=== PATIENT | male | born 1940 | race Caucasian/White ===

== ENCOUNTER → 2017-08-12 12:38 | Outpatient (CLI) | payer MEDICARE, SELFPAY ==
--- NOTE | 2017-08-12 12:40 | STE_ITS ---
Reason For Study: CAD/ASHD Stress Results Protocol: Parker Protocol Maximum Predicted HR: 142 bpm Target HR: 121 bpm% Max imum Predicted HR: 94 % DurationHeart Rate Stage (mm:ss) (bpm) BPCom ment BASELINE 79 140/92 0.2 ML DEFINITY STAGE 1 2:00 13 4 / 0.1 ML DEFINITY, Unable to walk on treadmill, Increased SOB RECOVERY 88 158/92 0.2 ML DEFINITY Stress Duration: 2:00 mm:ss Maximum Stress HR: 134 bpm Baseline Echocardiogram Findings The estimated ejection fraction is 65 %. Stress Echo Wall motion Data Resting WMIntermediate WMStress WM Resting Wall Motion Wall Motion Stress No regional wall motion No regional wall motion abnormalities noted. abnormalities noted. EKG Data Normal intervals are noted. The stress ECG displays normal ST segments. Interpretation Summary The study was technically difficult. Contrast injection was performed. The estimated ejection fraction is 65 %. Normal, adequate, treadmill echocardiogram. Negative for ischemia by EKG and echocardiographic criteria. No anginal symptoms noted. Rare PVC noted. Very poor exercise capacity for age. Pt unable to keep up with treadmill. Test terminated due to dyspnea and fatigue. Final LVEF of 75%. No complications. Decreased sensitivity due to poor echo windows requiring Definity enhancement agent. Ordering Physician: Yunior Adams Referring Physician: Yunior Adams Performed By: Carmen Shultz, ALIX, RVT
== END ==
PROVIDERS: Family Provider Family Medicine; PCP Family Medicine; Visit Provider Internal Medicine Cardiovascular Disease
DX: I47.1 Supraventricular tachycardia (principal); J44.9 Chronic obstructive pulmonary disease, unspecified; I25.10 Atherosclerotic heart disease of native coronary artery without angina pectoris
CPT/HCPCS: 93017; 93350; Q9957; A4216; C8928; J2785

== ENCOUNTER → 2017-10-05 12:42 | Outpatient (CLI) | payer MEDICARE, SELFPAY ==
--- NOTE | 2017-10-05 12:44 | CT_ITS ---
STUDY: CTA CHEST REASON FOR EXAM: Male, 77 years old. Cough. Congestion. Shortness of breath with exertion. Elevated d-dimer. RADIATION DOSAGE (If Supplied By Facility): CTDIvol = ( 14.2 ) mGy, DLP = ( 526.99 ) mGycm TECHNIQUE: The examination was performed with the intravenous administration of 100 ml of Isovue 370 contrast material. Post-processing of the angiographic images was performed, with multiplanar reformation and 3D reconstruction. Individualized dose optimization techniques were used for this CT. COMPARISON: April 06, 2017. FINDINGS: Normal enhancement of the main pulmonary artery and right and left pulmonary arteries. Normal enhancement of the bilateral peripheral pulmonary arteries. There is no demonstrated pulmonary embolism. There is atherosclerotic calcification of the aortic arch with tortuosity. There is no demonstrated aortic dissection. There are calcifications of the coronary arteries. Normal mediastinum. Normal hilar regions. Normal visualized trachea and bronchi. The lungs are well expanded. Normal pulmonary parenchyma. There is stable groundglass opacity in the right lower lobe, series 2 image 86/238 . There is bronchiectasis in the lower chest. There is lower lung linear scarring or atelectasis. Normal pleura. Normal chest wall structures. There are degenerative changes of thoracic spine. Normal visualized upper abdomen. CT/CTA Chest W/WO Contrast IMPRESSION: CTA chest examination, without a demonstrated pulmonary embolism or arterial dissection. Stable bronchiectasis with fibrotic densities and right lower lung groundglass opacity. Electronically Signed: Janes Harrell MD at 13:50 EDT , Service support ,
== END ==
PROVIDERS: Family Provider Family Medicine; PCP Family Medicine; Visit Provider Internal Medicine Pulmonary Disease
DX: R91.1 Solitary pulmonary nodule (principal); R79.89 Other specified abnormal findings of blood chemistry
CPT/HCPCS: 71275; Q9967

== ENCOUNTER → 2017-12-24 15:45 | Outpatient (CLI) | payer MEDICARE, SELFPAY ==
--- NOTE | 2017-12-24 15:47 | VDLE_ITS ---
Reason For Study: pain RIGHT LEFT GSV is normal. GSV is normal. CFV is compressible, spontaneous, phasic, CFV is compressible, spontaneous, phasic, competent and demonstrates normal competent, and demonstrates normal augmentation. augmentation. FV is compressible, spontaneous, phasic, FV is compressible, spontaneous, phasic, competent and demonstrates normal competent and demonstrates normal augmentation. augmentation. POP V is compressible, spontaneous, phasic, POP V is compressible, spontaneous, phasic, competent and demonstrates normal competent and demonstrates normal augmentation. augmentation. T/P Trunk is compressible. T/P Trunk is compressible. PTV is compressible. PTV is compressible. RT PerV is compressible. LT PerV is compressible. Varicose veins below the knee are dilated and noncompressible. Procedure Exam performed in department. The exam was diagnostic. A preliminary report was called and/or faxed to Jose [facility]. Interpretation Summary No evidence for acute deep venous thrombosis bilateral lower extremities with patent and compressible bilateral great saphenous veins. Superficial thrombophlebitis varicose veins right calf. Ordering Physician: Valarie Fox Performed By: Erik Stephens RVT
== END ==
PROVIDERS: Family Provider Family Medicine; PCP Family Medicine; Referring Provider Physician Assistant Medical; Visit Provider Physician Assistant Medical
DX: M79.89 Other specified soft tissue disorders (principal)
CPT/HCPCS: 93970

== ENCOUNTER → 2018-01-04 14:04 | Outpatient (CLI) | payer MEDICARE, SELFPAY | PROVIDERS: Family Provider Family Medicine; PCP Family Medicine; Referring Provider Internal Medicine Pulmonary Disease; Visit Provider Internal Medicine Pulmonary Disease | DX: J44.9 Chronic obstructive pulmonary disease, unspecified (principal); R05 Cough | CPT/HCPCS: 87015; 87070; 87116; 87205; 87206 ==

== ENCOUNTER 2018-01-04 23:34 | Inpatient (IN) | payer MEDICARE, SELFPAY ==
[2018-01-04 22:45] VITALS: BP 120/73; PULSE 76; RESP 17; TEMP 37.1; O2SAT 96
[2018-01-04 23:45] VITALS: BP 120/73; PULSE 76; RESP 17; TEMP 37.1; O2SAT 96
[2018-01-04 23:56] VITALS: PULSE 78
[2018-01-05] VITALS (14 sets, daily range): BP systolic 117–149; BP diastolic 68–88; PULSE 65–76; RESP 16–23; TEMP 36.6–36.9; O2SAT 93–95; BMI 29.5
--- NOTE | 2018-01-05 00:15 | HP.PCM_ITS ---
Problem List (1) GERD (gastroesophageal reflux disease) Status: Chronic (2) COPD (chronic obstructive pulmonary disease) Status: Chronic (3) Paroxysmal atrial fibrillation Status: Acute History of Present Illness Date of Admission: 01/04/18 Chief Complaint: Palpitations The patient is a 77 year old M with a significant history of COPD, former smoker, HLD, SVT; PAF and GERD who was transferred from [facility]. He presented to [facility] with palpitation and requested that he be transferred to our hospital since he is a patient of Dr. Adams, spd manager. [facility] ED doctor reported that patient was found to be in A. fib with RVR with a heart rate in the 170s. He was given a Cardizem bolus and drip which brought his heart rate to the 110s. When patient arrived at our hospital his heart rate was in the 70s to 80s on Cardizem drip; and his systolic blood pressure was 110. Patient denies any shortness of breath. Patient reported that in June of this year he had upper respiratory infection and he had a transient A. fib at that time. He has had episodic palpitations. On 12/24/17 patient was seen at Cardiology's Office. He was seen by Valarie Fox PA-C. A 30-day event monitor was ordered for palpitations. Patient reported that 2 days after wearing the event monitor the event monitor malfunctioned. A new event monitor was supposed to be mailed to him but he did not receive it before this hospitalization. Following his paroxysmal A. fib/SVT in the setting of upper respiratory infection in June 2017 patient followed up with Dr. Adams. Past Medical History Past Medical History (Chronic Problems): Chronic Problems (Last Reviewed 01/05/18 @ 01:06 by Luciano Ponce MD) GERD (gastroesophageal reflux disease) (Chronic) COPD (chronic obstructive pulmonary disease) (Chronic) Medical History: Medical History (Last Reviewed 01/05/18 @ 01:06 by Luciano Ponce MD) SVT (supraventricular tachycardia) (Acute) I47.1 per ekg 06/12/17 GERD (gastroesophageal reflux disease) (Chronic) K21.9 COPD (chronic obstructive pulmonary disease) (Chronic) J44.9 Paroxysmal atrial fibrillation (Acute) I48.0 BPH (benign prostatic hyperplasia) N40.0 Allergies No Known Allergies Allergy (Verified 12/24/17 15:16) Home Medications: Ambulatory Orders Medication Instructions Recorded aspirin 81 mg tablet,delayed 81 mg PO QHS 07/04/17 release fluticasone furoate 200 1 inh INHALATION QDAY 07/04/17 mcg/actuation blister powder for inhalation lorazepam 0.5 mg tablet 0.5 mg PO QHS 07/04/17 pantoprazole 40 mg tablet,delayed 40 mg PO QDAY 07/04/17 release rosuvastatin 5 mg tablet 5 mg PO QDAY 07/04/17 tamsulosin 0.4 mg capsule 0.4 mg PO BID cap 07/07/17 umeclidinium 62.5 mcg/actuation 1 inh INHALATION DAILY 12/24/17 blister powder for inhalation Acetaminophen [Tylenol] 325 mg PO PRN PRN 01/05/18 Surgical History: adenoidectomy, herniorrhaphy - X2 Lives: Spouse/ Significant Other Smoking Status: Former smoker Alcohol: None - *Family History Maternal Family History: Family History (Last Updated 01/05/18 @ 01:07 by Luciano Ponce MD) Mother COPD (chronic obstructive pulmonary disease) Blood disorder Review of Systems Constitutional: Denies: Chills, Fever, Weight Change HEENT: Reports: Post Nasal Drip, Sinus Congestion. Denies: Head Aches, Sinus Drainage Cardiovascular: Reports: Palpitations. Denies: Chest Pain Respiratory: Reports: Cough, Hemoptysis - Occasional. Denies: Shortness of lo ath at rest, Sputum production Gastrointestinal: Denies: Abdominal Pain, Nausea, Vomiting Genitourinary: Denies: Dysuria Musculoskeletal: Denies: Joint Pain, Joint Tenderness Skin: Denies: Rash, Wounds Neurological: Denies: Numbness, Tingling, Focal weakness Psychiatric: Denies: Anxiety, Depression, Homicidal Ideations, Suicidal Ideations Hematologic/ Lymphatic: Denies: Easy Bruising, Easy Bleeding VTE Information - Inpt Only VTE Present on Admission: No VTE Mechan Device Prophylaxis: None VTE Pharm Prophylaxis ordered?: No Reason prophylaxis not ordered:: Treatment Not Indicated - Started on Lovenox for A. fib. - Physical Exam General: Alert, Oriented x3, Cooperative HEENT: Atraumatic, PERRLA, EOMI, Normocephalic Neck: Supple, No JVD, Negative Carotid Bruits Lungs: Clear to auscultation, Normal air movement Cardiovascular: Regular rate, No murmurs Abdomen: Bowel Sounds Present, Soft, Non Tender Extremities: Capillary Refill Less than 3 Seconds Skin: No rashes, No breakdown Musculoskeletal: No Tenderness to Palpation of Joints or Extremities, Tenderness - Mild tenderness and red spot on right leg. Neurological: Cranial nerves II-XII grossly intact Psych/Mental Status: Normal Affect, Appropriate Assessment/Plan All Active Problems (Last Reviewed 01/05/18 @ 01:06 by Luciano Ponce MD) Swelling of right lower extremity (Acute) SVT (supraventricular tachycardia) (Acute) Paroxysmal atrial fibrillation (Acute) The patient is a 77 year old M with a significant history of COPD, former smoker, HLD, SVT; PAF and GERD; and with acute A. fib with RVR who was transferred from [facility] to our hospital because patient is familiar with Dr. Adams, spd manager. A. fib with RVR On review of records patient was seen on 12/24/2017 by Valarie Fox PA-C. EKG at that time showed PACs. Interpretation of stress echo done on 08/12/17 showed: The study was technically difficult. Contrast injection was performed. The estimated ejection fraction is 65 %.Normal, adequate, treadmill echocardiogram. Negative for ischemia by EKG and echocardiographic criteria. No anginal symptoms noted. Rare PVC noted. Very poor exercise capacity for age. Pt unable to keep up with treadmill. Test terminated due to dyspnea and fatigue. Final LVEF of 75%. No complications. Decreased sensitivity due to poor echo windows requiring Definity enhancement agent. Echocardiogram 03/18/2017 from [facility] showed left ventricle of normal size cavity and wall thickness. Systolic function was normal. Estimated EF was 55-60%. Wall motion was normal; and there were no regional wall motion abnormalities. Myocardial stress test from [facility] on 02/24/17: showed no evidence of inducible ischemia. Moderate area of fixed defect involving the inferior, inferoseptal and inferolateral wall suggestive of peripheral myocardial infarction. Mild hypokinesis of the inferior wall with normal systolic function, LVEF 61%. [id number] Score. Age more than 75: Two-points. 2.2% stroke risk per year. Moderate to high risk and should otherwise be on anticoagulation HAS-BLED score. Age > 60 = 1 point; Hemoptysis= 1 point ; On ASA =1point. His HAS-BLED score is at least 3. Putting patient at high risk of bleeding. Risk and benefits discussed with patient. Shared decision to begin anticoagulation. Lovenox 1 mg per kilogram subcutaneous every 12 hours started. Anticipate patient will be transitioned to p.o. anticoagulants. Cardizem drip stopped since patient is sinus rhythm with heart rate of 70. Rate controlled with Cardizem p.o. Cardiology consult to optimize management. Since cardiology has been consulted will defer to cardiology if there is the need of any echocardiogram; especially since patient had stress echocardiogram about 5 months ago.. TSH ordered. Magnesium ordered. CBC and BMP ordered. Hemoptysis Patient report this has been going on for about 2 weeks. He suspects that this is because of his bronchitis. Patient follows up with Dr. Sylvester Donald who ordered a sputum study. Patient sent sputum to the lab on the same day of admission. Reports that Dr. Sylvester Donald's office will call his with results. Clinical monitoring. Superficial venous thrombosis of right leg Patient reported that he had ultrasound of his right leg that showed superficial venous thrombosis Stable COPD Stable on admission with no shortness of breath or wheezing Home breathing treatment continue. Albuterol as needed ordered. GERD Protonix ordered Hyperlipidemia Crestor continued BPH Tamsulosin continued DVT prophylaxis Not indicated in the setting of therapeutic dose of Lovenox for DVT. Code Visit OBSV E&M: 11468 Initial observation care L3
[2018-01-05] MEDS: Enoxaparin 100 MG/ML Syringe 90 MG SC (01:32)
[2018-01-05 02:30] LABS: Hematocrit 41.9 % (40-54); Hemoglobin 13.8 g/dl (13.0-16.5); Mean Corp Hgb Conc 32.9 g/gl (32-36); Mean Corpuscular Hgb 32.2 pg (27.0-32.0); Mean Corpuscular Volume 97.9 fL (80-94); Mean Platelet Vol. 9.2 fl (6.2-12.0); Platelet Count 230 K/mm3 (150-450); RBC Distribution Width SD 45.3 fl (35.1-43.9); Red Blood Count 4.28 M/mm3 (4.6-6.2); Scan Indicated on CBC? Y/N NO; White Blood Count 7.4 K/mm3 (4.4-11.0)
[2018-01-05 02:36] LABS: International Normalized Ratio 1.1; Prothrombin Time (Protime)PT. 14.2 SECONDS (11.7-14.9)
[2018-01-05 02:52] LABS: Thyroid Stim Hormone (TSH) 2.06 uIU/mL (0.358-3.74)
[2018-01-05 04:35] LABS: Anion Gap 7 (5-15); BUN 8 mg/dL (7-18); BUN/Creat Ratio 7.8 RATIO (10-20); Calcium,Total 8.5 mg/dL (8.5-10.1); Chloride 107 mmol/L (98-107); Creatinine, Serum 1.02 mg/dL (0.70-1.30); EST Glomerular Filtration Rate 75 mL/min (>60); Est Glom Filt Rate - Afr Amer 91 mL/min (>60); Estimated Creatinine Clearance 56.81 ml/min; Glucose 127 mg/dL (74-106); Potassium 4.2 mmol/L (3.5-5.1); Sodium Level 145 mmol/L (136-145)
--- NOTE | 2018-01-05 05:27 | EKG12_ITS ---
Test Reason : RYTHM CHANGE Blood Pressure : / mmHG Vent. Rate : 068 BPM Atrial Rate : 068 BPM P-R Int : 188 ms QRS Dur : 078 ms QT Int : 388 ms P-R-T Axes : 084 -33 051 degrees QTc Int : 412 ms Normal sinus rhythm with sinus arrhythmia Left axis deviation Abnormal ECG No previous ECGs available Confirmed by HANH MNA ([id number]), scientific publications editor NA DODGE ([id number]) on 01/12/2018 11:44:21 AM Referred By: Sylvester Donald Confirmed By:HANH MAN
[2018-01-05] MEDS: Ipratropium 0.5 MG/2.5 ML SOLUTION INHALATION ×2 (06:40→18:42)
[2018-01-05] MEDS: Budesonide Respules 0.5 MG/2 ML AMPUL.NEB. INHALATION ×2 (06:40→18:42)
[2018-01-05] MEDS: dilTIAZem CD 120 MG Capsule PO ×2 (09:16→22:18)
[2018-01-05] MEDS: Pantoprazole Sodium 40 MG Tablet PO (09:16)
[2018-01-05] MEDS: Tamsulosin HCl 0.4 MG Capsule PO ×2 (09:16→22:18)
--- NOTE | 2018-01-05 09:19 | NURSING ---
Pt requests to not take blood thinner at this time until cardiology makes further recommendations on anticoagulation
--- NOTE | 2018-01-05 09:25 | PCM.CONS.C ---
Problem List (1) Paroxysmal atrial fibrillation Status: Acute (2) SVT (supraventricular tachycardia) Status: Chronic Comment: per ekg 06/12/17 (3) COPD (chronic obstructive pulmonary disease) Status: Chronic (4) GERD (gastroesophageal reflux disease) Status: Chronic Reason for Consult Date of Consultation: 01/05/18 History of Present Illness: The patient is a 77 year old white male who presents for inpatient evaluation of paroxysmal atrial fibrillation with rapid ventricular response. He has been going through outpatient evaluation for concerns of recurrent palpitations/rapid rate sensation. He states he had a 30-day event monitor which was nonfunctional and he had to return. He has been waiting for a new one. In the interim he had recurrent symptoms. He presented to [facility] for evaluation. He was found to be in atrial fibrillation with rapid ventricular response. He was subsequently treated with IV diltiazem. He was then transferred to the [facility] for further evaluation and care per his request as his primary food service worker hospital, Dr. Adams, is at [facility]. Shortly after arriving at [facility] she was noted to have spontaneous return to sinus rhythm. He denies any other sensations in the chest other than his sensation of palpitations. There has been no episodes of acute shortness of breath/dyspnea compatible with acute CHF or pulmonary edema. He has chronic shortness of breath and dyspnea as he has underlying COPD and follows with Dr. Donald. He has not had orthopnea, PND, or peripheral pitting edema other than trace edema of his right ankle area. This is chronic. There is been no near syncope or syncope. He states he has had some blood-tinged sputum. His ECG at the outside hospital demonstrated atrial fibrillation with rapid ventricular response with left axis deviation. His repeat tracing at [facility] demonstrated sinus rhythm with left axis deviation. [] Past Medical History Allergies/Adverse Reactions: Allergies No Known Allergies Allergy (Verified 12/24/17 15:16) Home Medications: Ambulatory Orders Medication Instructions Recorded aspirin 81 mg tablet,delayed 81 mg PO QHS 07/04/17 release fluticasone furoate 200 1 inh INHALATION QDAY 07/04/17 mcg/actuation blister powder for inhalation lorazepam 0.5 mg tablet 0.5 mg PO QHS 07/04/17 pantoprazole 40 mg tablet,delayed 40 mg PO QDAY 04/21/18 release rosuvastatin 5 mg tablet 5 mg PO QDAY 07/04/17 tamsulosin 0.4 mg capsule 0.4 mg PO BID cap 07/07/17 umeclidinium 62.5 mcg/actuation 1 inh INHALATION DAILY 12/24/17 blister powder for inhalation Acetaminophen [Tylenol] 325 mg PO PRN PRN 01/05/18 Past Medical History (Chronic Problems): Chronic Problems (Last Reviewed 01/05/18 @ 01:06 by Luciano Ponce MD) SVT (supraventricular tachycardia) (Chronic) per ekg 06/12/17 GERD (gastroesophageal reflux disease) (Chronic) COPD (chronic obstructive pulmonary disease) (Chronic) Surgical History: adenoidectomy, herniorrhaphy - X2 - *Family History Maternal Family History: Family History (Last Updated 01/05/18 @ 01:07 by uLciano Ponce MD) Mother COPD (chronic obstructive pulmonary disease) Blood disorder Lives: Spouse/ Significant Other Smoking Status: Former smoker Alcohol: None Drugs: None Review of Systems - Review of Systems General: Denies: Fever, Night Sweats, Fatigue Cardiovascular: Reports: Palpitations. Denies: Chest Discomfort, Shortness of Breath, Orthopnea, PND, Peripheral Edema, Lightheadedness, Dizziness, Near Syncope, Syncope Respiratory: Reports: Cough, Sputum Production. Denies: Hemoptysis Gastrointestinal: Denies: Hematemesis, Hematochezia, Melena Genitourinary: Denies: Dysuria, Hematuria Skin: Denies: Rash Subjectve: Is resting comfortably at the moment in no acute distress. Objective: Vital Signs Temp Pulse Resp BP Pulse Ox 98.4 F 67 16 149/86 H 93 01/05/18 09:04 01/05/18 09:04 01/05/18 09:04 01/05/18 09:04 01/05/18 09:04 Oxygen Delivery Method Room Air Weight: 194 lb 10.691 oz Body Mass Index (BMI) 29.5 Intake and Output for Last 24 Hours 01/03/18 01/04/18 01/05/18 23:59 23:59 23:59 Intake Total 240 / 240 Output Total 150 / 150 Balance 90 / 90 General: Awake, Alert, Oriented x 3, Cooperative, No Acute Distress HEENT: Atraumatic, Normocephalic, PERRL, EOMI, Sclera Non Icteric Oral: Moist Mucosa Neck: Supple, Good ROM, No JVD Lungs: Rhonchi, Expiratory Wheezes-Mario Alberto Cardiovascular: Regular Rhythm, Normal S1, Normal S2 Vascular: No Carotid Bruits Abdomen: Bowel Sounds Present, Soft, Non Tender Extremities: Trace RLE Edema Neurological: No Focal Motor or Sensory Deficit Psych/Mental Status: Appropriate, Normal Affect 01/05/18 02:22: Magnesium 2.0 01/05/18 02:22: Sodium 145, Potassium 4.2, Chloride 107, Carbon Dioxide 31.0, Anion Gap 7, BUN 8, Creatinine 1.02, Est GFR (MDRD) Af Amer 91, Est GFR (MDRD) Non-Af 75, BUN/Creatinine Ratio 7.8 L, Glucose 127 H, Calcium 8.5 01/05/18 02:22: WBC 7.4, RBC 4.28 L, Hgb 13.8, Hct 41.9, MCV 97.9 H, MCH 32.2 H, MCHC 32.9, RDW 13.0, RDW Differential 45.3 H, Plt Count 230, MPV 9.2 01/05/18 02:22: PT 14.2, INR 1.1 Rhythm: Paroxysmal atrial fibrillation; sinus rhythm EKG: Sinus rhythm; left axis deviation ECHO: 03/18/2017: [facility]: Summary: Left ventricle normal in size and wall thickness and systolic function with a reported LVEF of 55-60%; trivial MR; trivial TR Stress Test: Stress echocardiogram: 08/12/2017: Reported as negative for ischemia by ECG and echocardiographic criteria. Assessment/Plan 1. Paroxysmal atrial fibrillation with rapid ventricular response The patient has demonstrated paroxysmal atrial fibrillation with rapid ventricular response. He was evaluated and treated medically. This included IV diltiazem therapy. He was noted to have subsequent return to sinus rhythm. He has not been on anticoagulant therapy in the past. This will need to be reconsidered noting that he has a past history of paroxysmal atrial fibrillation and has demonstrated a recurrence. He has undergone noninvasive evaluation in the past as noted above. At the present time he will continue rate control therapy. This will include oral diltiazem therapy. He may eventually need antiarrhythmic therapy. It was felt reasonable to place patient on anticoagulant therapy as well barring an absolute contraindication. 2. SVT There is a report in the outpatient record the patient has a form of an SVT. Apparently this was noted during a COPD exacerbation and nebulizer therapy. Again at the present time he appears to be without recurrent definitive SVT-of a reentry mechanism type, based upon objective data available for review. At the moment he will continue medical evaluation and care as described above. 3. COPD The patient does have significant COPD. He does follow with Dr. robison of pulmonology. He will need additional evaluation of his underlying COPD process, which may be a contributing factor to concerns of paroxysmal atrial fibrillation and SVT. Certainly with respect to his blood-tinged sputum this will have to be taken into consideration by his primary care physicians and dry cleaning manager with respect to the need for further evaluation and care. Hopefully this will not be a contraindication for anticoagulant therapy. 4. GERD He also has a history of GERD. He will continue evaluation care as deemed appropriate. Comment: The above was discussed and reviewed with the patient and Dr. Espino. This note was generated with [employer] dictation software. It may contain incorrect words, spelling, and punctuation that were not noted in checking the note before signing.
[2018-01-05] MEDS: APIXABAN 5 MG TABLET PO ×2 (10:29→22:19)
--- NOTE | 2018-01-05 13:04 | PCM.PROGNOTE ---
<Ceferino Hastings - Last Filed: 01/05/18 13:04> Subjective: No further palp - pt was having pounding in his chest at which point he checked his pulse ox which showed rate of 160s. His rate is now controlled, althogh irregular. He has no SOB, dizziness, or LH. He continues to have a productive cough. This AM it was brown. He states he only actually had the blood in his sputum for two days, yesterday and the day prior, although he has had a yellow mucus productive cough x about 2 weeks. He has no weight loss or night sweats/chills. He follows [facility] for COPD. He does not use home O2. He does use CPAP QHS. - Physical Exam General: Alert, Oriented x3, Cooperative HEENT: Atraumatic, PERRLA, EOMI, Normocephalic Neck: Supple, No JVD, Negative Carotid Bruits Lungs: Diminished Cardiovascular: Irregular Rate Abdomen: Bowel Sounds Present, Soft, Non Tender Extremities: No edema, Capillary Refill Less than 3 Seconds Skin: No rashes, No breakdown Musculoskeletal: No Tenderness to Palpation of Joints or Extremities Neurological: Cranial nerves II-XII grossly intact Psych/Mental Status: Normal Affect, Appropriate, Alert and oriented to time, place, person, mood and affect Vital Signs Temp Pulse Resp BP Pulse Ox 98.4 F 74 16 149/86 H 93 01/05/18 09:04 01/05/18 11:02 01/05/18 09:04 01/05/18 09:04 01/05/18 09:04 Oxygen Delivery Method Room Air Weight: 194 lb 10.691 oz Body Mass Index (BMI) 29.5 Intake and Output for Last 24 Hours 01/03/18 01/04/18 01/05/18 23:59 23:59 23:59 Intake Total 240 / 240 Output Total 150 / 150 Balance 90 / 90 Laboratory Tests Past 24 Hrs 01/05/18 01/05/18 01/05/18 02:22 02:22 02:22 WBC 7.4 RBC 4.28 L Hgb 13.8 Hct 41.9 MCV 97.9 H MCH 32.2 H MCHC 32.9 RDW 13.0 RDW Differential 45.3 H Plt Count 230 MPV 9.2 PT INR Sodium 145 Potassium 4.2 Chloride 107 Carbon Dioxide 31.0 Anion Gap 7 BUN 8 Creatinine 1.02 Estim Creat Clear Calc 56.81 Est GFR (MDRD) Af Amer 91 Est GFR (MDRD) Non-Af 75 BUN/Creatinine Ratio 7.8 L Glucose 127 H Calcium 8.5 Magnesium 2.0 TSH 2.06 01/05/18 02:22 WBC RBC Hgb Hct MCV MCH MCHC RDW RDW Differential Plt Count MPV PT 14.2 INR 1.1 Sodium Potassium Chloride Carbon Dioxide Anion Gap BUN Creatinine Estim Creat Clear Calc Est GFR (MDRD) Af Amer Est GFR (MDRD) Non-Af BUN/Creatinine Ratio Glucose Calcium Magnesium TSH Medical Necessity - Tobacco Use Smoking Status: Former smoker Assessment/Plan All Active Problems (Last Reviewed 01/05/18 @ 01:06 by Luciano Ponce MD) Swelling of right lower extremity (Acute) Paroxysmal atrial fibrillation (Acute) 1. PAfib with RVR - Also w/ hx of SVT. pt of Dr. Adams, Dr. Cameron following. Rate improved, still fib. On Cardizem po. Eliquis started. Monitor for worsened hemoptysis. TSH normal. 2. COPD - quit smoking 15 years ago. Follows [facility]. Ongoing productive cough with occasional hemoptysis. No fever or WBC. No weight loss or NS. Not SOB or wheezy. Albuterol as needed, pulmicort, atrovent. Not on home o2. 3. HLD - statin 4. BPH - flomax 5. GERD - PPI 6. JORGE - CPAP qhs. DVT ppx: eliquis DC planning: monitor rate overnight. This patient was seen by Ceferino Hastings PA-C under the supervision of Doctor Srinivas. 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 Patient had a heart rate in the 170s patient dropped 210 on Cardizem bolus and then Cardizem drip was started. Patient also has on and off hemoptysis for about 2 [address] has [address] Dr[address] Donald few days ago. He further said he ordered 3 his sputum samples but did not clear. He has advanced COPD. - Physical Exam General: Alert, Oriented x3, Cooperative HEENT: Atraumatic, PERRLA, EOMI, Normocephalic Neck: Supple, No JVD, Negative Carotid Bruits Lungs: Diminished - Air entry diminished bilaterally, Rhonchi, Short of Breath - Expiratory rhonchi present Cardiovascular: No murmurs, Irregular Rate, - - Heart rate controlled Abdomen: Bowel Sounds Present, Soft, Non Tender, Non-Distended Extremities: Capillary Refill Less than 3 Seconds, Edema Skin: No rashes, No breakdown Musculoskeletal: No Tenderness to Palpation of Joints or Extremities, Arthritic Changes, Muscle Wasting Neurological: Cranial nerves II-XII grossly intact, Neuro grossly intact Psych/Mental Status: Normal Affect, Appropriate Vital Signs Temp Pulse Resp BP Pulse Ox 98.5 F 65 16 126/84 H 94 01/05/18 14:44 01/05/18 14:44 01/05/18 14:44 01/05/18 14:44 01/05/18 14:44 Oxygen Delivery Method Room Air Weight: 194 lb 10.691 oz Body Mass Index (BMI) 29.5 Intake and Output for Last 24 Hours 01/03/18 01/04/18 01/05/18 23:59 23:59 23:59 Intake Total 720 / 720 Output Total 150 / 150 Balance 570 / 570 Laboratory Tests Past 24 Hrs 01/05/18 01/05/18 01/05/18 02:22 02:22 02:22 WBC 7.4 RBC 4.28 L Hgb 13.8 Hct 41.9 MCV 97.9 H MCH 32.2 H MCHC 32.9 RDW 13.0 RDW Differential 45.3 H Plt Count 230 MPV 9.2 PT INR Sodium 145 Potassium 4.2 Chloride 107 Carbon Dioxide 31.0 Anion Gap 7 BUN 8 Creatinine 1.02 Estim Creat Clear Calc 56.81 Est GFR (MDRD) Af Amer 91 Est GFR (MDRD) Non-Af 75 BUN/Creatinine Ratio 7.8 L Glucose 127 H Calcium 8.5 Magnesium 2.0 TSH 2.06 01/05/18 02:22 WBC RBC Hgb Hct MCV MCH MCHC RDW RDW Differential Plt Count MPV PT 14.2 INR 1.1 Sodium Potassium Chloride Carbon Dioxide Anion Gap BUN Creatinine Estim Creat Clear Calc Est GFR (MDRD) Af Amer Est GFR (MDRD) Non-Af BUN/Creatinine Ratio Glucose Calcium Magnesium TSH Assessment/Plan This patient was seen in conjunction with Ceferino NOLEN. I have independently interviewed and examined the patient and reviewed pertinent history, examination findings, laboratory and plan of management. I have reviewed the note and agree with the documented findings with the few additional points. In brief, patient is a 77-year-old gentleman, ex-smoker quit 15 years ago was admitted with paroxysmal A. fib with RVR, heart rate 170/min from [facility] ER. Patient was initially started on Cardizem drip after bolus. Heart rate is controlled And patient converted to sinus rhythm the patient was seen by hvac lead. On Eliquis 5 mg twice daily, Cardizem CD 120 mg twice daily. I called Dr. Donald and waiting for his reply. I have discussed my assessment with Ceferino NOLEN and orders have been reviewed. Code Visit Inpatient E&M: 24734 [facility] Hosp L3
--- NOTE | 2018-01-05 13:13 | PN_ITS ---
<Ceferino Hastings - Last Filed: 01/05/18 13:04> Subjective: No further palp - pt was having pounding in his chest at which point he checked his pulse ox which showed rate of 160s. His rate is now controlled, althogh irregular. He has no SOB, dizziness, or LH. He continues to have a productive cough. This AM it was brown. He states he only actually had the blood in his sputum for two days, yesterday and the day prior, although he has had a yellow mucus productive cough x about 2 weeks. He has no weight loss or night sweats/chills. He follows [facility] for COPD. He does not use home O2. He does use CPAP QHS. - Physical Exam General: Alert, Oriented x3, Cooperative HEENT: Atraumatic, PERRLA, EOMI, Normocephalic Neck: Supple, No JVD, Negative Carotid Bruits Lungs: Diminished Cardiovascular: Irregular Rate Abdomen: Bowel Sounds Present, Soft, Non Tender Extremities: No edema, Capillary Refill Less than 3 Seconds Skin: No rashes, No breakdown Musculoskeletal: No Tenderness to Palpation of Joints or Extremities Neurological: Cranial nerves II-XII grossly intact Psych/Mental Status: Normal Affect, Appropriate, Alert and oriented to time, place, person, mood and affect Vital Signs Temp Pulse Resp BP Pulse Ox 98.4 F 74 16 149/86 H 93 01/05/18 09:04 01/05/18 11:02 01/05/18 09:04 01/05/18 09:04 01/05/18 09:04 Oxygen Delivery Method Room Air Weight: 194 lb 10.691 oz Body Mass Index (BMI) 29.5 Intake and Output for Last 24 Hours 01/03/18 01/04/18 01/05/18 23:59 23:59 23:59 Intake Total 240 / 240 Output Total 150 / 150 Balance 90 / 90 Laboratory Tests Past 24 Hrs 01/05/18 01/05/18 01/05/18 02:22 02:22 02:22 WBC 7.4 RBC 4.28 L Hgb 13.8 Hct 41.9 MCV 97.9 H MCH 32.2 H MCHC 32.9 RDW 13.0 RDW Differential 45.3 H Plt Count 230 MPV 9.2 PT INR Sodium 145 Potassium 4.2 Chloride 107 Carbon Dioxide 31.0 Anion Gap 7 BUN 8 Creatinine 1.02 Estim Creat Clear Calc 56.81 Est GFR (MDRD) Af Amer 91 Est GFR (MDRD) Non-Af 75 BUN/Creatinine Ratio 7.8 L Glucose 127 H Calcium 8.5 Magnesium 2.0 TSH 2.06 01/05/18 02:22 WBC RBC Hgb Hct MCV MCH MCHC RDW RDW Differential Plt Count MPV PT 14.2 INR 1.1 Sodium Potassium Chloride Carbon Dioxide Anion Gap BUN Creatinine Estim Creat Clear Calc Est GFR (MDRD) Af Amer Est GFR (MDRD) Non-Af BUN/Creatinine Ratio Glucose Calcium Magnesium TSH Medical Necessity - Tobacco Use Smoking Status: Former smoker Assessment/Plan All Active Problems (Last Reviewed 01/05/18 @ 01:06 by Luciano Ponce MD) Swelling of right lower extremity (Acute) Paroxysmal atrial fibrillation (Acute) 1. PAfib with RVR - Also w/ hx of SVT. pt of Dr. Adams, Dr. Cameron following. Rate improved, still fib. On Cardizem po. Eliquis started. Monitor for worsened hemoptysis. TSH normal. 2. COPD - quit smoking 15 years ago. Follows [facility]. Ongoing productive cough with occasional hemoptysis. No fever or WBC. No weight loss or NS. Not SOB or wheezy. Albuterol as needed, pulmicort, atrovent. Not on home o2. 3. HLD - statin 4. BPH - flomax 5. GERD - PPI 6. JORGE - CPAP qhs. DVT ppx: eliquis DC planning: monitor rate overnight. This patient was seen by Ceferino Hastings PA-C under the supervision of Doctor Srinivas. 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 Patient had a heart rate in the 170s patient dropped 210 on Cardizem bolus and then Cardizem drip was started. Patient also has on and off hemoptysis for about 2 weeks and has seen Dr. Donald few days ago. He further said he ordered 3 his sputum samples but did not clear. He has advanced COPD. - Physical Exam General: Alert, Oriented x3, Cooperative HEENT: Atraumatic, PERRLA, EOMI, Normocephalic Neck: Supple, No JVD, Negative Carotid Bruits Lungs: Diminished - Air entry diminished bilaterally, Rhonchi, Short of Breath - Expiratory rhonchi present Cardiovascular: No murmurs, Irregular Rate, - - Heart rate controlled Abdomen: Bowel Sounds Present, Soft, Non Tender, Non-Distended Extremities: Capillary Refill Less than 3 Seconds, Edema Skin: No rashes, No breakdown Musculoskeletal: No Tenderness to Palpation of Joints or Extremities, Arthritic Changes, Muscle Wasting Neurological: Cranial nerves II-XII grossly intact, Neuro grossly intact Psych/Mental Status: Normal Affect, Appropriate Vital Signs Temp Pulse Resp BP Pulse Ox 98.5 F 65 16 126/84 H 94 01/05/18 14:44 01/05/18 14:44 01/05/18 14:44 01/05/18 14:44 01/05/18 14:44 Oxygen Delivery Method Room Air Weight: 194 lb 10.691 oz Body Mass Index (BMI) 29.5 Intake and Output for Last 24 Hours 01/03/18 01/04/18 01/05/18 23:59 23:59 23:59 Intake Total 720 / 720 Output Total 150 / 150 Balance 570 / 570 Laboratory Tests Past 24 Hrs 01/05/18 01/05/18 01/05/18 02:22 02:22 02:22 WBC 7.4 RBC 4.28 L Hgb 13.8 Hct 41.9 MCV 97.9 H MCH 32.2 H MCHC 32.9 RDW 13.0 RDW Differential 45.3 H Plt Count 230 MPV 9.2 PT INR Sodium 145 Potassium 4.2 Chloride 107 Carbon Dioxide 31.0 Anion Gap 7 BUN 8 Creatinine 1.02 Estim Creat Clear Calc 56.81 Est GFR (MDRD) Af Amer 91 Est GFR (MDRD) Non-Af 75 BUN/Creatinine Ratio 7.8 L Glucose 127 H Calcium 8.5 Magnesium 2.0 TSH 2.06 01/05/18 02:22 WBC RBC Hgb Hct MCV MCH MCHC RDW RDW Differential Plt Count MPV PT 14.2 INR 1.1 Sodium Potassium Chloride Carbon Dioxide Anion Gap BUN Creatinine Estim Creat Clear Calc Est GFR (MDRD) Af Amer Est GFR (MDRD) Non-Af BUN/Creatinine Ratio Glucose Calcium Magnesium TSH Assessment/Plan This patient was seen in conjunction with Ceferino NOLEN. I have independently interviewed and examined the patient and reviewed pertinent history, examination findings, laboratory and plan of management. I have reviewed the note and agree with the documented findings with the few additional points. In brief, patient is a 77-year-old gentleman, ex-smoker quit 15 years ago was admitted with paroxysmal A. fib with RVR, heart rate 170/min from [facility] ER. Patient was initially started on Cardizem drip after bolus. Heart rate is controlled And patient converted to sinus rhythm the patient was seen by bacteriology teacher. On Eliquis 5 mg twice daily, Cardizem CD 120 mg twice daily. I called Dr. Donald and waiting for his reply. I have discussed my assessment with Ceferino NOLEN and orders have been reviewed. Code Visit Inpatient E&M: 25069 [facility] Hosp L3
[2018-01-05] MEDS: Atorvastatin Calcium 10 MG Tablet PO (22:18)
[2018-01-05] MEDS: Bisacodyl 5 MG Tablet PO (22:23)
[2018-01-05] MEDS: LORazepam 0.5 MG Tablet PO (22:23)
[2018-01-06] VITALS (9 sets, daily range): BP systolic 114–122; BP diastolic 68–76; PULSE 64–77; RESP 18–20; TEMP 36.5–36.8; O2SAT 90–94
[2018-01-06] MEDS: Budesonide Respules 0.5 MG/2 ML AMPUL.NEB. INHALATION (07:26)
[2018-01-06] MEDS: Ipratropium 0.5 MG/2.5 ML SOLUTION INHALATION ×2 (07:27→13:10)
[2018-01-06] MEDS: dilTIAZem CD 120 MG Capsule PO (08:33)
[2018-01-06] MEDS: Tamsulosin HCl 0.4 MG Capsule PO (08:33)
[2018-01-06] MEDS: APIXABAN 5 MG TABLET PO (08:33)
[2018-01-06] MEDS: Pantoprazole Sodium 40 MG Tablet PO (08:33)
--- NOTE | 2018-01-06 10:05 | CASEMGMT ---
This RN CM to room with ANGELO form at this time, explanation done, and pt signed ANGELO form at this time. Original to chart and copy to pt at this time. Pt voices no further concerns/needs at this time. SStaten PANCHO CM
--- NOTE | 2018-01-06 12:59 | CASEMGMT ---
Per Durga CHU, pt to be sent home on [facility] and script e-scribed to [facility] previously. Call to [facility] and per tech, pt's co-pay is $25. Reyes DELEON CM
--- NOTE | 2018-01-06 13:12 | DCINST_ITS ---
You will use the following diet at home:: Cardiac Your food should be the consistency of: Regular Your liquids should be the consistency of: Regular/Thin Discharge Activity: Return to Normal Activity Allergies/Adverse Reactions: Allergies No Known Allergies Allergy (Verified 12/24/17 15:16) Medications to take at Discharge fluticasone furoate 200 mcg/actuation blister powder for inhalation 1 inh INHALATION QDAY 07/04/17 lorazepam 0.5 mg tablet 0.5 mg PO QHS 07/04/17 pantoprazole 40 mg tablet,delayed release 40 mg PO QDAY 07/04/17 rosuvastatin 5 mg tablet 5 mg PO QDAY 07/04/17 tamsulosin 0.4 mg capsule 0.4 mg PO BID cap 07/07/17 umeclidinium 62.5 mcg/actuation blister powder for inhalation 1 inh INHALATION DAILY 12/24/17 Acetaminophen [Tylenol] 325 mg PO PRN PRN 01/05/18 Apixaban [Eliquis] 5 mg PO BID #60 tablet 01/06/18 Diltiazem CD [Cardizem CD] 120 mg PO Q12 #60 capsule 01/06/18 The following prescriptions were given: Apixaban [Eliquis] 5 mg PO BID #60 tablet Diltiazem CD [Cardizem CD] 120 mg PO Q12 #60 capsule Primary Care Physician: Arnulfo Rascon MD [Primary Care Provider] - Please follow up with your Primary Care Physician in: 1-2 weeks Test Results: Test results from this visit will be discussed in further detail at your follow- up appointment, if applicable. Please Follow Up With: Yunior Adams MD When: 1-2 weeks Please Follow Up With: Sylvester Donald MD When: 1-2 weeks Proposed Discharge Date: 01/06/18
--- NOTE | 2018-01-06 15:01 | PCM.DC.SUM ---
<Ceferino Hastings - Last Filed: 01/06/18 15:01> Discharge Date and Diagnosis Date of Admission: 01/04/18 Date of Discharge: 01/06/18 - Primary Discharge Diagnosis Paroxysmal Afib with RVR Hemoptysis unclear etiology GERD COPD hx SVT HLD JORGE - Secondary Discharge Diagnosis Chronic Problems (Last Reviewed 01/05/18 @ 01:06 by Luciano Ponce MD) SVT (supraventricular tachycardia) (Chronic) per ekg 06/12/17 GERD (gastroesophageal reflux disease) (Chronic) COPD (chronic obstructive pulmonary disease) (Chronic) Hospital Course and Treatment Consults: Nisha - Cardiology Operations: None Procedures: None Summary of Care Provided: Hospital Course: The patient is a 77 year old M with past medical history of paroxysmal atrial fibrillation, obstructive sleep apnea, COPD, hypertension, hyperlipidemia who presented to the emergency room with chief complaints of pounding in his chest. He is found to be in atrial fibrillation with rapid ventricular response. He was admitted to the PCU on telemetry and started on a Cardizem drip. Dr. Cameron was consult of cardiology. He normally follows Dr. Adams. His rate was well controlled and he was transitioned to twice daily Cardizem. There are concerns about starting him on oral anticoagulation as he has had some hemoptysis recently had a chronic cough. He had 2 days of hemoptysis prior to admission. He follows Dr. Donald for COPD who is also working up him up as an outpatient for his productive cough. The day of starting Eliquis he had some brown sputum. He was monitored closely overnight and did not have any further hemoptysis or brown or black sputum. He converted to normal sinus rhythm. He had no further symptoms and he was discharged home in stable condition to continue Cardizem twice daily, Eliquis, and will need close follow-up with cardiology 1-2 weeks, pulmonology 1-2 weeks, and his PCP 2 weeks. This patient was seen by Ceferino Hastings PA-C under the supervision of Doctor Espino. [] - Physical Exam General: Alert, Oriented x3, Cooperative HEENT: Atraumatic, PERRLA, EOMI, Normocephalic Neck: Supple, No JVD, Negative Carotid Bruits Lungs: Clear to auscultation, Normal air movement Cardiovascular: Regular rate, No murmurs Abdomen: Bowel Sounds Present, Soft, Non Tender Extremities: No edema, Capillary Refill Less than 3 Seconds Skin: No rashes, No breakdown Musculoskeletal: No Tenderness to Palpation of Joints or Extremities Neurological: Cranial nerves II-XII grossly intact Psych/Mental Status: Normal Affect, Appropriate, Alert and oriented to time, place, person, mood and affect Vital Signs Temp Pulse Resp BP Pulse Ox 98.0 F 64 18 114/71 94 01/06/18 08:29 01/06/18 13:10 01/06/18 13:10 01/06/18 08:29 01/06/18 08:29 Oxygen Delivery Method Room Air Weight: 194 lb 10.691 oz Body Mass Index (BMI) 29.5 Intake and Output for Last 24 Hours 01/04/18 01/05/18 01/06/18 23:59 23:59 23:59 Intake Total 870 / 870 100 / 100 Output Total 150 / 150 Balance 720 / 720 100 / 100 Discharge Diet: Low fat/ Low Cholesterol, 2000 mg Sodium Diet Discharge Activity: Return to Normal Activity Home Medications: Medications to take at Discharge fluticasone furoate 200 mcg/actuation blister powder for inhalation 1 inh INHALATION QDAY 07/04/17 lorazepam 0.5 mg tablet 0.5 mg PO QHS 07/04/17 pantoprazole 40 mg tablet,delayed release 40 mg PO QDAY 07/04/17 rosuvastatin 5 mg tablet 5 mg PO QDAY 07/04/17 tamsulosin 0.4 mg capsule 0.4 mg PO BID cap 07/07/17 umeclidinium 62.5 mcg/actuation blister powder for inhalation 1 inh INHALATION DAILY 12/24/17 Acetaminophen [Tylenol] 325 mg PO PRN PRN 01/05/18 Apixaban [Eliquis] 5 mg PO BID #60 tablet 01/06/18 Diltiazem CD [Cardizem CD] 120 mg PO Q12 #60 capsule 01/06/18 Following Prescrptions Were Given to Patient: Apixaban [Eliquis] 5 mg PO BID #60 tablet Diltiazem CD [Cardizem CD] 120 mg PO Q12 #60 capsule Primary Care Physician: Arnulfo Rascon MD [Primary Care Provider] - Please follow up with your Primary Care Physician in: 1-2 weeks Please Follow Up With: Yunior Adams MD When: 1-2 weeks Please Follow Up With: Sylvester Donald MD When: 1-2 weeks Disposition: Home Minutes spent on discharge:: 35 Patient Condition:: Stable Medical Necessity - Tobacco Use Smoking Status: Former smoker Meaningful Use Info Meaningful Use Diagnoses (Choose all that apply): None applicable <Humphrey Espnio - Last Filed: 01/06/18 17:23> Discharge Date and Diagnosis - Secondary Discharge Diagnosis Chronic Problems (Last Reviewed 01/05/18 @ 01:06 by Luciano Ponce MD) SVT (supraventricular tachycardia) (Chronic) per ekg 06/12/17 GERD (gastroesophageal reflux disease) (Chronic) COPD (chronic obstructive pulmonary disease) (Chronic) Hospital Course and Treatment Summary of Care Provided: This patient was seen in conjunction with Ceferino NOLEN. I have independently interviewed and examined the patient and reviewed pertinent history, examination findings, laboratory and plan of management. I have reviewed the note and agree with the documented findings with the few additional points. In brief, patient is a 77-year-old gentleman, ex-smoker quit 15 years ago was admitted with paroxysmal A. fib with RVR, heart rate 170/min from [facility] ER. Patient was initially started on Cardizem drip after 20 IV bolus. Heart rate is controlled And patient converted to sinus rhythm the patient was seen by representative phlebotomy services. On Eliquis 5 mg twice daily, Cardizem CD 120 mg twice daily. I called Dr. Donald but did not get reply back. Overall patient did not have repeat hemoptysis. No shortness of breath. Treadmill stress echo in July 2017 Negative for ischemia by EKG and echocardiographic criteria. Technically difficult study. Testosterone due to dyspnea and fatigue. EF 65% Patient discharged on Cardizem 120 mg twice daily. Patient on Eliquis. I have discussed my assessment with Ceferino NOLEN and orders have been reviewed. [] Subjective: The patient was seen and examined today. Shortness of breath or chest pain. Heart rate is controlled and patient converted to normal sinus rhythm. No hemoptysis. Objective: General: Alert, Oriented x3, Cooperative HEENT: Atraumatic, PERRLA, EOMI, Normocephalic Neck: Supple, No JVD, Negative Carotid Bruits Lungs: Air entry diminished bilateral lung bases. Bilateral expiratory rhonchi. No tachypnea or hypoxia Cardiovascular: No murmurs, regular sinus rhythm. Heart rate controlled Abdomen: Bowel Sounds Present, Soft, Non Tender, Non-Distended Extremities: Capillary Refill Less than 3 Seconds, Edema Skin: No rashes, No breakdown Musculoskeletal: No Tenderness to Palpation of Joints or Extremities, Arthritic Changes, Muscle Wasting Neurological: Cranial nerves II-XII grossly intact, Neuro grossly intact Psych/Mental Status: Normal Affect, Appropriate - Physical Exam Vital Signs Temp Pulse Resp BP Pulse Ox 97.7 F L 65 18 116/68 94 01/06/18 15:40 01/06/18 15:40 01/06/18 15:40 01/06/18 15:40 01/06/18 15:40 Oxygen Delivery Method Room Air Weight: 194 lb 10.691 oz Body Mass Index (BMI) 29.5 Intake and Output for Last 24 Hours 01/04/18 01/05/18 01/06/18 23:59 23:59 23:59 Intake Total 870 / 870 100 / 100 Output Total 150 / 150 Balance 720 / 720 100 / 100
== END 2018-01-06 16:10 | disposition home or self-care (01) | DRG 309 ==
PROVIDERS: Admitting Provider Hospitalist; Family Provider Family Medicine; PCP Family Medicine; Visit Provider Hospitalist
DX: I48.0 Paroxysmal atrial fibrillation (principal); R04.2 Hemoptysis; J44.9 Chronic obstructive pulmonary disease, unspecified; K21.9 Gastro-esophageal reflux disease without esophagitis; E78.5 Hyperlipidemia, unspecified; G47.33 Obstructive sleep apnea (adult) (pediatric); I10 Essential (primary) hypertension; Z87.891 Personal history of nicotine dependence
CPT/HCPCS: 36415; 80048; 83735; 84443; 85027; 85610; 87015; 87070; 87116; 87205; 87206; 93005; 94640; 97802

== ENCOUNTER → 2018-01-15 16:12 | Outpatient (CLI) | payer MEDICARE, SELFPAY | PROVIDERS: Family Provider Family Medicine; PCP Family Medicine; Referring Provider Internal Medicine Pulmonary Disease; Visit Provider Internal Medicine Pulmonary Disease | DX: J44.9 Chronic obstructive pulmonary disease, unspecified (principal); R05 Cough | CPT/HCPCS: 87015; 87070; 87116; 87205; 87206 ==

== ENCOUNTER → 2018-04-20 15:42 | Outpatient (CLI) | payer MEDICARE, SELFPAY ==
[2018-02-09 15:42] VITALS: BMI 28.9
--- NOTE | 2018-04-20 | SPU_PTH ---
PATIENT: ELIO DORAN LOC: [facility] U#:[id number] AGE/SX: 84/M ROOM: RE04/20/[address]: Dr. Sylvester Donald MD : 1940 BED: DIS: SPEC #: [id number] RECD: 04/21/18 11:09 STATUS: FARIHA COLBY #: [id number] EMMA: 04/20/18 00:[address]: Sylvester Donald V DEPT: CYTOLOGY RECD BY: Altaf Zuniga ENTERED: 04/21/18 11:10 SP TYPE: Sputum Cy OTHR DR: Dr. Arnulfo Rascon MD Tissues: Sputum Procedures: Pap Stain (control) Special Stain Group II Special Stain Group I AFB Stain (control) Cytospin Fluid HEADER OPERATION: Not noted PRE-OP DIAGNOSIS: Hemoptysis, COPD TISSUE SUBMITTED: Sputum for cytology DIAGNOSIS CYTOLOGY Sputum for cytology (cytospin and smears): Negative for malignant cells. Special stain for acid fast bacilli is negative for organisms; matched control is appropriate. See cytology study and comment. SJ:rg 04/21/18 COMMENT Correlation with clinical findings and appropriate follow up are necessary. CYTOLOGY STUDY Slides are reviewed. The specimen consists of benign squamous cells, respiratory epithelial cells, macrophages, neutrophils and organisms consistent with bacteria. CYTOLOGY GROSS Received is 1 ml of thick cloudy fluid labeled with the patient's name and and designated per the requisition as sputum. Submitted for cytology preparation. 04/21/18 TC:5 CPT: 82058, 48625
== END ==
PROVIDERS: Family Provider Family Medicine; PCP Family Medicine; Referring Provider Internal Medicine Pulmonary Disease; Visit Provider Internal Medicine Pulmonary Disease
DX: J44.9 Chronic obstructive pulmonary disease, unspecified (principal); R04.2 Hemoptysis
CPT/HCPCS: 87070; 87077; 87186; 87205; 88108; 88312; 88313

== ENCOUNTER → 2018-05-03 10:42 | Outpatient (CLI) | payer MEDICARE, SELFPAY ==
[2018-02-09 15:42] VITALS: BMI 28.9
--- NOTE | 2018-05-03 10:00 | SPU_PTH ---
PATIENT: ELIO DORAN LOC: [facility] U#:[id number] AGE/SX: 84/M ROOM: RE05/03/[address]: Dr. Sylvester Donald MD : 1940 BED: DIS: SPEC #: [id number] RECD: 05/03/18 12:46 STATUS: FARIHA RETete #: [id number] EMMA: 05/03/18 10:[address]: Sylvester Donald V DEPT: CYTOLOGY RECD BY: Altaf Zuniga ENTERED: 05/03/18 12:46 SP TYPE: Sputum Cy OT DR: Dr. Arnulfo Rascon MD Tissues: Sputum Procedures: Pap Stain (control) Special Stain Group II Special Stain Group I AFB Stain (control) Cytospin Fluid HEADER OPERATION: Not noted PRE-OP DIAGNOSIS: COPD TISSUE SUBMITTED: Sputum for cytology DIAGNOSIS CYTOLOGY Sputum for cytology (smears and cytospin): Negative for malignant cells. Negative for acid-fast bacilli. See comment. AM:gilmar 05/04/18 COMMENT AFB stain with matched control was used in the evaluation of this case. CYTOLOGY STUDY Slides are reviewed. CYTOLOGY GROSS Received is 1 ml of thick cloudy fluid labeled with the patient's name and and designated per the requisition as sputum. Submitted for cytology preparation. / 05/03/18 TC:5 CPT: 04070, 98226
[2018-05-03 10:50] LABS: Cytology, Body Fluid / CSF SEE PATHOLOGY REPORT
== END ==
PROVIDERS: Family Provider Family Medicine; PCP Family Medicine; Referring Provider Internal Medicine Pulmonary Disease; Visit Provider Internal Medicine Pulmonary Disease
DX: J44.9 Chronic obstructive pulmonary disease, unspecified (principal)
CPT/HCPCS: 88108; 88312; 88313

== ENCOUNTER → 2018-07-22 14:29 | Outpatient (CLI) | payer MEDICARE, SELFPAY ==
[2018-07-15 13:24] VITALS: BMI 26.9
[2018-07-22 15:28] LABS: AST(SGOT) 11 U/L (15-37); Alanine Aminotransfer ALT/SGPT 16 U/L (16-61); Albumin, Serum 3.6 g/dL (3.2-5.0); Alkaline Phosphatase 82 U/L (45-117); Bilirubin, Direct 0.19 mg/dL (0.00-0.30); Cholesterol 140 mg/dL (200); Globulin 3.3 g/dL (2.2-4.2); High Density Lipoprotein 50 mg/dL; Protein, Total 6.9 g/dL (6.4-8.2); Triglycerides 106 mg/dL; Very Low Density Lipoprotein 21 mg/dL (5-40)
== END ==
PROVIDERS: Family Provider Family Medicine; PCP Family Medicine; Referring Provider Internal Medicine Cardiovascular Disease; Visit Provider Internal Medicine Cardiovascular Disease
DX: R07.9 Chest pain, unspecified (principal); I48.0 Paroxysmal atrial fibrillation
CPT/HCPCS: 36415; 80061; 80076

== ENCOUNTER → 2018-08-02 13:46 | Outpatient (CLI) | payer MEDICARE, SELFPAY ==
[2018-07-15 13:24] VITALS: BMI 26.9
--- NOTE | 2018-08-02 13:48 | ECHOD_ITS ---
Reason For Study: AFIB/Flutter Procedure This was a 2D Doppler, Color Flow transthoracic echocardiogram. The study was technically difficult. Due to diminshed accoustic windows. Exam performed in department. Left Ventricle Normal size and thickness. The estimated ejection fraction is 65 %. Stage 2 diastolic dysfunction. No regional wall motion abnormalities noted. Right Ventricle Normal size and thickness. Normal systolic function. Atria The left atrium is severely enlarged. Normal right atrium. Normal atrial septum. Mitral Valve The mitral valve is structurally normal. No prolapse or stenosis seen. Moderate mitral annular calcification extending into the posterior leaflet. Trivial mitral valve insufficiency. Tricuspid Valve Normal tricuspid valve. Trivial tricuspid valve insufficiency. Right ventricular systolic pressure estimated to be 32 mmHg. Aortic Valve Normal aortic valve. Trisinus/trileaflet aortic valve. Pulmonic Valve Normal pulmonic valve. Great Vessels Normal aortic root. Normal arch. Normal inferior vena cava. Inferior vena cava collapse with sniff. Pericardium/Pleural No pericardial effusion. MMode/2D Measurements & Calculations LVIDd: 4.8 cm IVSd: 1.0 cm Ao root diam: 3.6 cm LVIDs: 3.8 cm LVPWd: 1.1 cm RVDd: 3.1 cm FS: 21.5 % LAV(MOD-bp): 94.0 ml LA A4 area: 26.3 cm2 LA dimension(2D): 4.1 cm LAV(MOD-bp) Indexed: 48.4 ml/m2 LAV(MOD-sp2): 93.2 ml LAV(MOD-sp4): 93.4 ml RA A4 area: 19.3 cm2 Time Measurements MV dec time: 0.18 sec Doppler Measurements & Calculations MV E max armin: 105.8 cm/sec Lat Peak E' Armin: 7.3 cm/sec Med Peak E' Armin: 7.7 cm/sec MV A max armin: 63.7 cm/sec E/E' lat: 14.5 E/E' med: 13.8 MV E/A: 1.7 Ao V2 max: 112.6 cm/sec LV V1 max: 88.1 cm/sec PA V2 max: 68.5 cm/sec Ao max P.1 mmHg LV V1 max P.1 mmHg TR max armin: 258.9 cm/sec TR max P.8 mmHg Interpretation Summary The estimated ejection fraction is 65 %. Stage 2 diastolic dysfunction. The left atrium is severely enlarged. Trivial mitral valve insufficiency. Trivial tricuspid valve insufficiency. Right ventricular systolic pressure estimated to be 32 mmHg. Pt appears to be in NSR. There is no comparison study available. Ordering Physician: Yunior Adams Referring Physician: Arnulfo Rascon Performed By: Ev Baires RDCS, RVT
== END ==
PROVIDERS: Family Provider Family Medicine; PCP Family Medicine; Referring Provider Internal Medicine Cardiovascular Disease; Visit Provider Internal Medicine Cardiovascular Disease
DX: I47.1 Supraventricular tachycardia (principal)
CPT/HCPCS: 93306

== ENCOUNTER → 2018-08-04 13:26 | Outpatient (CLI) | payer MEDICARE, SELFPAY ==
[2018-07-15 13:24] VITALS: BMI 26.9
--- NOTE | 2018-08-04 13:27 | STE_ITS ---
Reason For Study: CHEST PAIN Stress Results Protocol: Dobutamine Maximum Predicted HR: 141 bpm Target HR: 120 bpm % Maximum Predicted HR: 91 % DurationHeart Rate Stage (mm:ss) (bpm) BP DOBUTAMINE RECOVERY 69 130/91 DOBUTAMINE 10 MCG 3:44 98 140/84 DOBUTAMINE 20 MCG 2:07 129 / RECOVERY 86 135/88 Stress Duration: 5:51 mm:ss Maximum Stress HR: 129 bpm Baseline Echocardiogram Findings The estimated ejection fraction is 65 %. Stress Echo Wall motion Data Resting WM Intermediate WM Stress WM Resting Wall Motion Wall Motion Stress No regional wall motion No regional wall motion abnormalities noted. abnormalities noted. EKG Data The baseline ECG displays normal sinus rhythm. The patient was titrated from 10 mcg to a maximum of 20 mcg of dobutamine during the stress. The maximum heart rate attained was 130 beats per minute. This was 92% of maximum predicted heart rate. During dobutamine infusion, there were no ST or T wave changes noted to suggest ischemia. No clinical angina was noted. Interpretation Summary The estimated ejection fraction is 65 %. Normal, adequate, dobutamine echocardiogram. Negative for ischemia by EKG and echocardiographic criteria. No anginal symptoms noted. Rare PVCs and PACs noted. Test terminated due to fatigue attainment of target heart rate. Final LVEF is 75%. Appropriate blood pressure response to dobutamine. No complications. Ordering Physician: Yunior Adams Referring Physician: Yunior Adams Performed By: Amaris Escobedo RDCS
== END ==
PROVIDERS: Family Provider Family Medicine; PCP Family Medicine; Referring Provider Internal Medicine Cardiovascular Disease; Visit Provider Internal Medicine Cardiovascular Disease
DX: R07.9 Chest pain, unspecified (principal); I48.0 Paroxysmal atrial fibrillation
CPT/HCPCS: 93017; 93350; J7040; A4216

== ENCOUNTER → 2018-10-05 13:01 | Outpatient (CLI) | payer MEDICARE, SELFPAY ==
[2018-02-09 15:42] VITALS: BMI 28.9
[2018-07-15 13:24] VITALS: BMI 26.9
--- NOTE | 2018-10-05 13:04 | CT_ITS ---
STUDY: CT CHEST WITHOUT CONTRAST REASON FOR EXAM: Male, 78 years old. Pulmonary nodule. RADIATION DOSAGE (If Supplied By Facility): CTDIvol = ( 14.51 ) mGy, DLP = ( 492.64 ) mGycm TECHNIQUE: Transaxial imaging was performed without the administration of intravenous contrast material. Coronal and sagittal reformatted images were created. Individualized dose optimization techniques were used for this CT. COMPARISON: 04/06/2017 FINDINGS: The previously seen pulmonary nodules have resolved and likely represented atelectasis. There is dependent atelectasis noted bilaterally. There is a new 1.9 x 1.5 cm thin-walled cavitary lesion which contains a small amount of fluid in the superior segment of the left lower lobe (image 25 series 4). There are no pulmonary infiltrates or pleural effusion. There is no pneumothorax. The heart and pericardium are within normal limits. Again noted are coronary artery calcifications. There is no thoracic lymphadenopathy. There is no evidence of thoracic aortic aneurysm. Images through the upper abdomen demonstrate no significant abnormality. There are no destructive osseous lesions. CT/Chest without Contrast IMPRESSION: Resolution of the previously seen pulmonary nodules which likely represent atelectasis. 1.9 x 1.5 cm thin-walled cavitary lesion which contains a small amount of fluid in the superior segment of the left lower lobe. This is likely infectious in etiology. Bibasilar atelectasis. No focal infiltrates. No pleural effusions. Coronary artery disease. Lung RADS category 3: A repeat CT in 6 months is recommended. Electronically Signed: Arnulfo Medina, at 17:26 EDT Tel , Service support ,
== END ==
PROVIDERS: Family Provider Family Medicine; PCP Family Medicine; Referring Provider Internal Medicine Pulmonary Disease; Visit Provider Internal Medicine Pulmonary Disease
DX: R91.8 Other nonspecific abnormal finding of lung field (principal)
CPT/HCPCS: 71250

== ENCOUNTER → 2018-10-18 12:33 | Outpatient (CLI) | payer MEDICARE, SELFPAY ==
[2018-07-15 13:24] VITALS: BMI 26.9
[2018-10-18 13:39] LABS: Erythrocyte Sedimentation Rate 15 mm/hr (0-20)
[2018-10-20 20:18] LABS: QNTFERON TB Mitogen Value > 10.00 IU/mL (.); QNTFERON TB Nil Value 0.01 IU/mL (.); QNTFERON TB1+ Ag Value 0.02 IU/mL (.); QNTFERON TB2+ Ag Value 0.02 IU/mL (.)
[2018-10-21 09:39] LABS: QNTIFERON TB Positive Criteria Negative (Negative)
== END ==
PROVIDERS: Family Provider Family Medicine; PCP Family Medicine; Referring Provider Internal Medicine Pulmonary Disease; Visit Provider Internal Medicine Pulmonary Disease
DX: J44.9 Chronic obstructive pulmonary disease, unspecified (principal)
CPT/HCPCS: 36415; 85652; 86480

== ENCOUNTER → 2018-10-20 18:35 | Outpatient (CLI) | payer MEDICARE, SELFPAY ==
[2018-07-15 13:24] VITALS: BMI 26.9
== END ==
PROVIDERS: Family Provider Family Medicine; PCP Family Medicine; Referring Provider Internal Medicine Pulmonary Disease; Visit Provider Internal Medicine Pulmonary Disease
DX: R04.2 Hemoptysis (principal); J44.9 Chronic obstructive pulmonary disease, unspecified
CPT/HCPCS: 87070; 87205

== ENCOUNTER → 2018-11-02 14:29 | Outpatient (CLI) | payer MEDICARE, SELFPAY ==
[2018-07-15 13:24] VITALS: BMI 26.9
--- NOTE | 2018-11-02 14:32 | CT_ITS ---
STUDY: CT CHEST WITHOUT CONTRAST REASON FOR EXAM: Male, 78 years old. COPD RADIATION DOSAGE (If Supplied By Facility): CTDIvol = ( 11.75 ) mGy, DLP = ( 392.94 ) mGycm TECHNIQUE: Transaxial imaging was performed without the administration of intravenous contrast material. Coronal and sagittal reformatted images were created. Individualized dose optimization techniques were used for this CT. COMPARISON: 10/05/2018 FINDINGS: There is subsegmental atelectasis noted in both lungs. There are no pulmonary infiltrates or pleural effusions. The previously seen lesion in the left lower lobe has decreased in size and now measures 1.1 x 0.9 cm (previously 1.9 x 1.5 cm). Additionally, the cavitary component is no longer present. There is no pneumothorax. The heart and pericardium are within normal limits. Again noted are coronary artery calcifications. There is no thoracic lymphadenopathy. There is no evidence of thoracic aortic aneurysm. Images through the upper abdomen demonstrate no significant abnormality. There are no destructive osseous lesions. CT/Chest without Contrast IMPRESSION: 1.1 x 0.9 cm the lesion in the left lower lobe which is decreased in size when compared with the prior exam. The previously seen cavitary component has also resolved. This likely represents a resolving infectious or inflammatory etiology. Continued follow-up is recommended. Lung RADS category 3: A repeat CT in 6 months is recommended. Electronically Signed: Arnulfo Medina, at 15:24 EDT Tel , Service support ,
== END ==
PROVIDERS: Family Provider Family Medicine; PCP Family Medicine; Referring Provider Internal Medicine Pulmonary Disease; Visit Provider Internal Medicine Pulmonary Disease
DX: R04.2 Hemoptysis (principal); J44.9 Chronic obstructive pulmonary disease, unspecified
CPT/HCPCS: 71250

== ENCOUNTER 2018-12-01 12:53 | Day surgery (SDC) | payer MEDICARE, SELFPAY ==
[2018-07-15 13:24] VITALS: BMI 26.9
[2018-12-01] VITALS (15 sets, daily range): BP systolic 144–189; BP diastolic 82–119; PULSE 67–83; RESP 16; TEMP 36.3–36.8; O2SAT 93–97; BMI 26.5
[2018-12-01] MEDS: Lactated Ringers 1,000 ML 100 ML IV (13:51)
--- NOTE | 2018-12-01 14:44 | OP.ENDO_ITS ---
Patient Name: Hiram Rasheed Procedure Date: 12/01/2018 1:36 PM Date of : 1940 Age: 78 Procedure: Bronchoscopy Indications: Hemoptysis Providers: Sylvester Donald MD Referring MD: Sylvester Donald MD Medicines: See the Anesthesia note for documentation of the administered medications Complications: No immediate complications Procedure: Pre-Anesthesia Assessment: - After reviewing the risks and benefits, the patient was deemed in satisfactory condition to undergo the procedure. - The anesthesia plan was to use monitored anesthesia care (MAC). After I obtained informed consent, the scope was passed under direct vision. Throughout the procedure, the patient's blood pressure, pulse, and oxygen saturations were monitored continuously. The bronchoscope was introduced through the right nostril and advanced to the tracheobronchial tree of both lungs. The patient tolerated the procedure well. The total duration of the procedure was 0 hours and 6 minutes. Moderate Sedation: Moderate (conscious) sedation was personally administered by an anesthesia professional. The following parameters were monitored: oxygen saturation, heart rate, blood pressure, respiratory rate, EKG, adequacy of pulmonary ventilation, and response to care. Total physician intraservice time was 12 minutes. Moderate (conscious) sedation was personally administered by an anesthesia professional. [Parameters Monitored]. [Sedation Duration Time]. Findings: The nasopharynx/oropharynx appears normal. The larynx appears normal. The vocal cords appear normal. The subglottic space is normal. The trachea is of normal caliber. The bibi is sharp. The tracheobronchial tree of the left lung was examined to at least the first subsegmental level. Bronchial mucosa and anatomy in the left lung are normal; there are no endobronchial lesions, and no secretions. The nasopharynx/oropharynx appears normal. The larynx appears normal. The vocal cords appear normal. The subglottic space is normal. The trachea is of normal caliber. The bibi is sharp. The tracheobronchial tree was examined to at least the first subsegmental level. Bronchial mucosa and anatomy are normal; there are no endobronchial lesions, and no secretions. Impression: - Hemoptysis - The airway examination of the left lung was normal. - The airway examination was normal. - No specimens collected. - The airway examination was normal. Recommendation: - Follow up with bronchoscopist in 2 weeks. Procedure Code(s): --- Professional --- 86339, Bronchoscopy, rigid or flexible, including fluoroscopic guidance, when performed; diagnostic, with cell washing, when performed (separate procedure) Diagnosis Code(s): --- Professional --- R04.2, Hemoptysis CPT copyright 2017 [employer]. All rights reserved. The codes documented in this report are preliminary and upon lacing operator review may be revised to meet current compliance requirements. MD Sylvester Hamilton MD 12/01/2018 2:43:57 PM This report has been signed electronically. Number of Addenda: 0 Note Initiated On: 12/01/2018 1:36 PM
== END 2018-12-01 16:17 | disposition home or self-care (01) ==
LOC: EN 12:54 → AC 12:55
PROVIDERS: Family Provider Family Medicine; PCP Family Medicine; Referring Provider Internal Medicine Pulmonary Disease; Visit Provider Internal Medicine Pulmonary Disease
PROC: 0BJ08ZZ Inspection of Tracheobronchial Tree, Via Natural or Artificial Opening Endoscopic (ICD-10-PCS; CPT 31622; principal; 2018-12-01 13:45)
DX: R04.2 Hemoptysis (principal); R91.8 Other nonspecific abnormal finding of lung field; R09.02 Hypoxemia; J44.9 Chronic obstructive pulmonary disease, unspecified; I48.91 Unspecified atrial fibrillation; I10 Essential (primary) hypertension; E78.00 Pure hypercholesterolemia, unspecified; K21.9 Gastro-esophageal reflux disease without esophagitis; G47.33 Obstructive sleep apnea (adult) (pediatric); E66.09 Other obesity due to excess calories; F32.9 Major depressive disorder, single episode, unspecified; Z79.01 Long term (current) use of anticoagulants; Z79.82 Long term (current) use of aspirin; Z79.899 Other long term (current) drug therapy; Z86.73 Personal history of transient ischemic attack (TIA), and cerebral infarction without residual deficits; Z87.891 Personal history of nicotine dependence
CPT/HCPCS: 31622; J7120

== ENCOUNTER → 2019-05-06 12:42 | Outpatient (CLI) | payer MEDICARE, SELFPAY ==
[2018-12-01 13:19] VITALS: BMI 26.5
[2019-02-03 11:30] VITALS: BMI 25.9
--- NOTE | 2019-05-06 12:46 | CT_ITS ---
STUDY: CT CHEST WITHOUT CONTRAST REASON FOR EXAM: Male, 78 years old. LUNG NODULE RADIATION DOSAGE (If Supplied By Facility): CTDIvol = ( 11.87 ) mGy, DLP = ( 388.46 ) mGycm TECHNIQUE: Transaxial imaging was performed without the administration of intravenous contrast material. Individualized dose optimization techniques were used for this CT. COMPARISON: 11/02/2018 FINDINGS: Interval resolution of left lower lobe nodule with a linear scar. This requires no further follow-up. There is no demonstrated pleural abnormality. Normal heart and pericardium. There are calcifications of the coronary arteries. Normal mediastinum. Normal hilar regions. Normal unenhanced pulmonary arteries. Normal aorta arch and descending thoracic aorta. Normal osseous structures. There is no demonstrated abnormality of the visualized upper abdomen. CT/Chest without Contrast IMPRESSION: Interval resolution of left lower lobe nodule with a linear scar. Return to annual screening. Electronically Signed: Joe Bajwa MD at 8:36 EST Tel , Service support ,
== END ==
PROVIDERS: Family Provider Family Medicine; PCP Family Medicine; Referring Provider Internal Medicine Pulmonary Disease; Visit Provider Internal Medicine Pulmonary Disease
DX: R04.2 Hemoptysis (principal); R91.1 Solitary pulmonary nodule
CPT/HCPCS: 71250

== ENCOUNTER → 2019-09-02 10:17 | Outpatient (CLI) | payer MEDICARE, SELFPAY ==
[2019-02-03 11:30] VITALS: BMI 25.9
== END ==
PROVIDERS: PCP Family Medicine; Visit Provider Internal Medicine Pulmonary Disease
DX: R05 Cough (principal); R50.9 Fever, unspecified
CPT/HCPCS: 87635; G2023; U0003

== ENCOUNTER → 2019-11-15 12:36 | Outpatient (CLI) | payer MEDICARE, SELFPAY ==
[2019-10-04 13:32] VITALS: BMI 27.6
[2019-11-15 13:43] LABS: AST(SGOT) 10 U/L (15-37); Alanine Aminotransfer ALT/SGPT 16 U/L (16-61); Albumin, Serum 3.6 g/dL (3.2-5.0); Alkaline Phosphatase 68 U/L (45-117); Bilirubin, Direct 0.19 mg/dL (0.00-0.30); Cholesterol 167 mg/dL (200); Globulin 3.4 g/dL (2.2-4.2); High Density Lipoprotein 57 mg/dL; Triglycerides 82 mg/dL; Very Low Density Lipoprotein 16 mg/dL (5-40)
== END ==
PROVIDERS: PCP Family Medicine; Referring Provider Internal Medicine Cardiovascular Disease; Visit Provider Internal Medicine Cardiovascular Disease
DX: E78.5 Hyperlipidemia, unspecified (principal)
CPT/HCPCS: 36415; 80061; 80076

== ENCOUNTER 2020-04-13 13:44 | Outpatient (RCR) | payer MEDICARE, SELFPAY ==
[2020-04-11 13:43] VITALS: BMI 28.7
== END 2020-04-13 23:59 ==
LOC: IMMUN 13:44
PROVIDERS: PCP Family Medicine; Referring Provider Family Medicine; Visit Provider Family Medicine
DX: Z23 Encounter for immunization (principal)
CPT/HCPCS: 0011A; 0012A; 91301

== ENCOUNTER → 2020-05-07 12:43 | Outpatient (CLI) | payer MEDICARE, SELFPAY ==
[2019-02-03 11:30] VITALS: BMI 25.9
[2020-04-11 13:43] VITALS: BMI 28.7
--- NOTE | 2020-05-07 12:45 | CT_ITS ---
STUDY: CT CHEST WITHOUT CONTRAST REASON FOR EXAM: Male, 79 years old. LUNG NODULE FOLLOW UP RADIATION DOSAGE (If Supplied By Facility): CTDIvol = ( 13.98 ) mGy, DLP = ( 492.67 ) mGycm TECHNIQUE: Transaxial imaging was performed without the administration of intravenous contrast material. Multiplanar coronal and sagittal images were reformatted. Individualized dose optimization techniques were used for this CT. COMPARISON: Comparison is made with prior examination dated 05/06/2019. FINDINGS: Stable thickening of the left major fissure. Progressive increased linear markings at the lung bases suggestive of a scarring more prominent in the lingular segment of the left upper lobe as well as the right middle lobe and both lower lobes. There is no demonstrated pleural abnormality. There are calcifications of the coronary arteries. Minimal anterior pericardial thickening. Calcification of the mitral valve annulus. There are multiple small lymph nodes within the mediastinum, which are normal in size and morphology most compatible with reactive lymph hyperplasia. Normal hilar regions. Normal unenhanced pulmonary arteries. There is atherosclerotic calcification of the aortic arch . There are multi-level degenerative changes of the thoracic spine. There is no demonstrated abnormality of the visualized upper abdomen. CT/Chest without Contrast IMPRESSION: Progressive linear scarring at the lung bases as well as in the right middle lobe and lingular segment of the left upper lobe. No nodular density is seen at this time. Electronically Signed: Chris Ventura MD at 13:30 EST , Service support ,
== END ==
PROVIDERS: PCP Family Medicine; Referring Provider Internal Medicine Pulmonary Disease; Visit Provider Internal Medicine Pulmonary Disease
DX: R91.8 Other nonspecific abnormal finding of lung field (principal); R04.2 Hemoptysis
CPT/HCPCS: 71250

== ENCOUNTER 2021-05-22 15:31 | Outpatient (CLI) | payer MEDICARE, SELFPAY ==
--- NOTE | 2021-05-22 15:55 | RAD_ITS ---
EXAM: XR CHEST, 2 VIEWS : 1940 CLINICAL INDICATION: Preoperative evaluation TECHNIQUE: Frontal and lateral views of the chest. This report was created using [employer] report generation technology. COMPARISON: None. FINDINGS: LUNGS AND PLEURAL SPACES: Bibasilar scarring/atelectasis. No pneumothorax. No effusion. HEART: Unremarkable. Cardiac silhouette not enlarged. MEDIASTINUM: Central airways and mediastinal contour are unremarkable. BONES/JOINTS: Degenerative changes of the spine. SOFT TISSUES: Unremarkable. RAD/Chest PA and Lateral IMPRESSION: No acute findings in the chest. at 0302 Reported and signed by: Dorian Padilla MD Electronically Signed: Dorian Padilla MD at 3:01 EST ,
[2021-05-22 16:05] LABS: Absolute Lymphocyte Count 1.24 X10^3/uL (0.83-4.51); Absolute Neutrophil Count 5.3 X10^3/uL (2.0-7.7); Basophil% 1.3 % (0-1); Eosinophil# 0.34 X10^3/uL; Eosinophils% 4.4 % (0-5); Hemoglobin 13.3 g/dL (13.0-16.5); Lymphocyte # 1.24 X10^3/ul (0.83-4.51); Mean Corp Hgb Conc 32.4 g/dL (32-36); Mean Corpuscular Hgb 30.9 pg (27.0-32.0); Mean Corpuscular Volume 95.1 fL (80-94); Mean Platelet Vol. 9.3 fl (6.2-12.0); Monocyte% 9.1 % (0-10); NRBC Flagged by Analyzer 0 % (0-5); Neutrophil # 5.29 X10^3/uL (2.7-7.7); Neutrophil % 68.4 % (47-70); Platelet Count 183 K/mm3 (150-450); RBC Distribution Width CV 13.2 % (11.6-14.6); RBC Distribution Width SD 46.5 fl (35.1-43.9); Red Blood Count 4.31 M/mm3 (4.6-6.2); White Blood Count 7.7 K/mm3 (4.4-11.0)
[2021-05-22 16:38] LABS: Anion Gap 5 (5-15); BUN 14 mg/dL (7-18); BUN/Creat Ratio 13.3 RATIO (10-20); Calcium,Total 8.4 mg/dL (8.5-10.1); Chloride 103 mmol/L (98-107); Creatinine, Serum 1.05 mg/dL (0.70-1.30); EST Glomerular Filtration Rate 72 mL/min (>60); Est Glom Filt Rate - Afr Amer 87 mL/min (>60); Glucose 98 mg/dL (74-106); Potassium 4.4 mmol/L (3.5-5.1); Sodium Level 138 mmol/L (136-145)
== END 2021-05-22 23:59 | disposition home or self-care (01) ==
LOC: LAB 15:33
PROVIDERS: PCP Family Medicine; Referring Provider Nurse Practitioner Family; Visit Provider Nurse Practitioner Family
DX: Z01.812 Encounter for preprocedural laboratory examination (principal); I47.1 Supraventricular tachycardia; I48.0 Paroxysmal atrial fibrillation; E78.5 Hyperlipidemia, unspecified; R94.39 Abnormal result of other cardiovascular function study
CPT/HCPCS: 36415; 71046; 80048; 85025

== ENCOUNTER 2021-05-27 21:56 | Observation (INO) | payer MEDICARE, SELFPAY ==
[2021-05-24 07:23] VITALS: BMI 28.8
[2021-05-27] VITALS (10 sets, daily range): BP systolic 90–139; BP diastolic 53–84; PULSE 54–79; RESP 16–18; TEMP 35.9–36.1; O2SAT 94–98
--- NOTE | 2021-05-27 08:20 | PCM.HP.BLA ---
History and Physical Date of Admission: 05/27/21 [facility] History of Present Illness Details: This is an 80-year-old gentleman with a history of SVT, paroxysmal atrial fib, hypertension, hyperlipidemia, obstructive sleep apnea. He presents today for a heart catheterization. He underwent a stress test at [facility] on 05/20/2021 that was considered to be abnormal with new changes when compared to previous stress test in February 2017. His stress test was ordered by primary care provider after he was evaluated in their office on 05/16/2021 expressing concerns regarding exertional upper chest/throat discomfort with radiation to the jaw and left ear. This had progressing for 2 months and was improved with rest. This was also associated with shortness of breath. Intake Vital Signs: See EMR Intake Visit Reasons: [facility] Allergies No Known Allergies Allergy (Verified 01/10/21 10:52) Medications See EMR Ejection fraction %: 65 to 70 COUNTS INCLUDE 234 BEDS AT THE [facility] Medical History BPH (benign prostatic hyperplasia) COPD (chronic obstructive pulmonary disease) GERD (gastroesophageal reflux disease) Hyperlipidemia Obstructive sleep apnea Paroxysmal atrial fibrillation SVT (supraventricular tachycardia) Surgical History History of ankle surgery History of appendectomy History of back surgery History of inguinal hernia repair History of tonsillectomy History of umbilical hernia repair Family History Mother , Age 64 from Emphysema COPD (chronic obstructive pulmonary disease) Blood disorder Social History Smoking Status: Former smoker how long ago did patient quit smokin years ago alcohol intake: current alcohol intake frequency: holidays/special occasions only caffeine: Yes Type: coffee Number of servings: 2 ROS Const Const: Negative for fatigue, weakness, headache(s), frequent falls, difficulty sleeping or excessive sweating Eyes Eyes: Negative for loss of peripheral vision, transient loss of vision, blurry vision, double vision or tunnel vision ENT ENT: Negative for headache(s), dizziness, Nosebleed/epistaxis or balance problems Cardio Chest Pain: Yes (radiating to throat, jaw, and left ear. Worse with exertion and improves with rest) Palpitations: No Edema: None Muscle aches with walking: None Resp Respiratory: Positive for other (diminished); Positive for SOB with activity. Negative for SOB at rest, SOB orthopnea\SOB lying down, Cough or paroxysmal nocturnal dyspnea GI GI: Negative nausea, vomiting, heartburn or black,tarry stools : Negative for hematuria Musc Musc: Negative for muscle aches/ myalgia, muscle weakness, joint pain or balance problems Skin Skin: Negative non-healing lesions, rash or unusual bruising Neuro Neuro: Negative for dizziness, lightheadedness, near syncope, syncope, orthostatic symptoms, frequent falls, headache(s), weakness, blurry vision, double vision or lack of coordination Sylvain Hematologic/Lymphatic: Negative for easy bleeding or easy bruising Endo Endo: Negative for fatigue, excessive sweating or increased thirst/drinking Psych Psych: Negative for anxiety or depression Allergy Allergy/Immunology: Negative for hives and Negative for rash Cardiology Exam Const Appearance: cooperative, healthy appearing, no acute distress, well developed and well groomed Nutritional Appearance: average body habitus and well nourished Orientation: alert, awake and oriented x3 Head Head: normal to inspection, normocephalic and atraumatic Ears: hearing grossly normal bilaterally and external ears normal Nose: external nose normal, nares normal, nasal mucous membranes and turbinates normal, septum normal and no nasal discharge Face and Sinus: face symmetric Mouth: oral mucosae normal, tongue normal, oropharynx normal and moist mucous membranes Teeth and gingiva: dentition normal Throat: posterior oropharynx normal, tonsils normal and uvula midline Eyes General: appearance normal, both eyes and all related structures Eyelids: eyelids normal Conjunctivae: conjunctivae normal Pupils: PERRL, normal by confrontation and accommodation normal EOM: EOM intact bilaterally Neck Neck: normal visual inspection, trachea midline and no JVD JVD: +5 Carotids: normal carotid upstroke and bounding pulses Chest Chest inspection: normal inspection of the chest, symmetric chest movement and normal respiratory effort Auscultation: Bilateral: Clear to Auscultation Cardio Palpation: normal PMI Rate: regular rate Rhythm: regular rhythm Heart sounds: S1 normal, S2 normal and normal, physiologic split S2; Negative rub, gallop or murmur GI GI: normal to inspection, soft, no hepatosplenomegaly and bowel sounds present Neuro General: patient alert, patient awake, patient oriented x3, gait normal, moves all extremities and no focal sensory deficit Skin Skin: no rashes or lesions noted Extremities Pulses: Normal: Right Femoral Pulse, Left Femoral Pulse, Right Dorsalis Pedis Pulse, Left Dorsalis Pedis Pulse, Right Posterior Tibial Pulse, Left Posterior Tibial Pulse, Right Radial Pulse and Left Radial Pulse Lower Extremity Edema: None: Bilateral Musculoskel Musculoskeletal: No joint tenderness Psych Psychological: normal affect Assessment and Plan Assessment and Plan (1) Paroxysmal atrial fibrillation: Status: Chronic Plan - Dr. Dawit Rai MD: He does have evidence of paroxysmal atrial fibrillation. He appears to doing well at this particular time I would not recommend that we make any changes his last echocardiogram demonstrated preserved left ventricular systolic function estimated EF 65% with stage II diastolic dysfunction. (2) Hyperlipidemia: Status: Chronic Plan - Dr. Dawit Rai MD: His most recent lipid profile demonstrated a total cholesterol of 167 LDL of 94 HDL of 57. No other changes will be made. (3) Abnormal stress test: Status: Acute Orders: Orders: Left Heart Cath/COR/LV Percut Today Azar Shultz NP, TIMEKEEPER SUPERVISOR-C Basic Metabolic Profile (BMP) Today JULIA Lo NP CBC W/Diff, Automated Today FIFI Lo NPC Chest PA and Lateral Today Azar Shultz NP, NP-C Plan: Patient underwent stress test at outside facility on 05/20/2021 that was considered to be abnormal. On account of abnormal stress test and symptoms, he will proceed with heart catheterization. Based on results, further recommendation be made.
--- NOTE | 2021-05-27 12:08 | CL.D_ITS ---
Patient Name: ELIO DORAN Study Date: 05/27/2021 Performing: Dawit Rai MD Ht: 68.11 inches 173 cm : 1940 Wt: 189.6 lbs 86 kg Age: 80 Gender: male BSA: 2 PROCEDURE(S) PERFORMED DC02-(37934)LHC/COR IC12-(10833/C9600)SARAH W/WO PTCA, SINGLE CORONARY ARTERY CLINICAL PROFILE AND INDICATIONS Indications: Suspected CAD Heart Failure: None Stress/Imaging Date: 04/22/21Stress Test with SPECT MPI: Positive Intermediate Risk CAD Presentations: Symptom unlikely to be ischemic. CONCLUSIONS Severe disease involving the first large diagonal branch and mild to moderate disease involving the o ther vessels. RECOMMENDATIONS Referred for immediate PCI DESCRIPTION OF PROCEDURE The patient arrived to the procedure lab. The risks and benefits of the procedure as well as a full d escription of our services here and current unavailability of surgical backup were fully explained to the patient and/or their significant other prior to the catheterization. The Timeout was completed, verifying the correct patient and procedure. The patient's procedural site was prepped and draped in the usual fashion. Local anesthetic was given subcutaneously to right radial region with Lidocaine 2% . Local anesthetic was given subcutaneously to right groin region with Lidocaine 2%. Using a modified Seldinger technique, arterial access was obtained via the right radial artery, a 6Fr sheath was inse rted., arterial access was obtained via the right femoral artery, a 5Fr sheath was inserted. Left Co ronary Artery selective angiography was performed in multiple views using a 5 Fr. JL4 catheter. Right Coronary Artery selective angiography was then performed in multiple views using a 5 Fr. 3DRC (Danny) catheter. CORONARY ANGIOGRAPHY DOMINANCE: Right Dominant LEFT HEART ASSESSMENT Left Ventricular Ejection Fraction: by Echo 65 % Normal LV wall motion Normal Left Ventricular systolic function LEFT MAIN: Angiographically normal LEFT ANTERIOR DESCENDING ARTERY: Mild luminal irregularities less than 30% DIAGONAL 1: Proximal - 90 % Stenosis CIRCUMFLEX ARTERY: Nondominant vessel with moderate diffuse disease especially involving the mid segm ent RIGHT CORONARY ARTERY: Dominant vessel with bifurcation to a posterior descending artery and an acute marginal branch with mild to moderate luminal irregularities. COMPLICATIONS PROCEDURE MEDICATIONS Versed 1 mg IV Fentanyl 50 mcg IV Oxygen: 2 L/min via nasal cannula Heparin given IA 05/27/2021 11:21:26 SUMMARY OF HEMODYNAMIC DATA Time AIR REST ECG 10:28:49 Art 121/63 (86) 11:18:41 AO 99/62 (78) SA 11:24:05 AO 107/59 (78) 11:32:27 AO 128/69 (93) 11:49:38 Signed By Dawit Rai MD On 05/27/2021 12:07:03 PM Dawit Rai MD
--- NOTE | 2021-05-27 14:12 | CL.I_ITS ---
Patient Name: ELIO DORAN Study Date: 05/27/2021 Performing: Doni Alberto MD Ht: 68.11 inches 173 cm : 1940 Wt: 189.6 lbs 86 kg Age: 80 Gender: male BSA: 2 PROCEDURE(S) PERFORMED IC12-([id number])SARAH W/WO PTCA, SINGLE CORONARY ARTERY CLINICAL PROFILE AND CO-MORBIDITIES Indications: Suspected CAD Heart Failure: None Stress/Imaging Date: 04/22/21 Stress Test with SPECT MPI: Positive Intermediate Risk CAD Presentations: Symptom unlikely to be ischemic. CONCLUSIONS Unsuccessful PCI of the pD1 RECOMMENDATIONS Medical management of CAD DESCRIPTION OF PROCEDURE The patient arrived to the procedure lab. The risks and benefits of the procedure as well as a full d escription of our services here and current unavailability of surgical backup were fully explained to the patient and/or their significant other prior to the catheterization. The Timeout was completed, verifying the correct patient and procedure. The patient's procedural site was prepped and draped in the usual fashion. Local anesthetic was given subcutaneously to right radial region with Lidocaine 2% . Local anesthetic was given subcutaneously to right groin region with Lidocaine 2% Using a modified Seldinger technique,arterial access was obtained via the right radial artery, a 6Fr sheath was insert ed., arterial access was obtained via the right femoral artery, a 5Fr sheath was inserted. Left Coron jacob Artery selective angiography was performed in multiple views using a 5 Fr. JL4 catheter. Right Co ronary Artery selective angiography was then performed in multiple views using a 5 Fr. 3DRC (Danny) catheter. Arterial sheath was exchanged for a 6 Fr Sheath. XB 3.5 Guide catheter was inserted and engaged i nto the LCA. BMW Guide wire was advanced to the 1st Diagonal. Whisper Guide wire was inserted as a bu ddy wire Contrast was injected through the sheath and the Right Iliac and Femoral artery were assesse d for possible closure device. The arterial sheath was pulled and a Perclose closure device was depl oyed for hemostasis. The arterial sheath was pulled and a TR Band was applied for hemostasis w/ 10ml air INTERVENTION INFORMATION LESION SITE: 1st Diagonal (Proximal) Lesion Complexity: High/C, chronic total occlusion: Yes, thrombus present: No, lesion length: 10 mm, culprit lesion: Yes, Previously treated lesion: No Pre Stenosis: 99 % Pre intervention YONATAN flow: 2 PROCEDURE: unsuccessful PTCA as we could not cross the lesion with a wire Post Stenosis: 99 % Post intervention YONATAN flow: 2 COMPLICATIONS No Complications PROCEDURE MEDICATIONS Versed 1 mg IV Fentanyl 50 mcg IV Oxygen: 2 L/min via nasal cannula Heparin given IA 05/27/2021 11:21:26 Heparin 2000 unit(s) IV 05/27/2021 12:15:40 IV Bolus: .9 NaCl 150 ml total 05/27/2021 12:45:22 SUMMARY OF HEMODYNAMIC DATA Time AIR REST ECG 10:28:49 Art 121/63 (86) 11:18:41 AO 99/62 (78) SA 11:24:05 AO 107/59 (78) 11:32:27 AO 128/69 (93) 11:49:38 Signed By Doni Alberto MD On 05/27/2021 14:10:28 Doni Alberto MD
--- NOTE | 2021-05-27 14:13 | CRPHASE1_ITS ---
Patient Communication PHII Cardiac Rehab Discussed with Patient:: Yes Guide to Cardiac Rehab Given to Patient:: Yes Cardiac Rehab Facility Choice List Given to Patient:: Yes Choice Program Other:: Communication Given to LADARIUS Bailey Machine Former:: Dawit Rai Phase II Cardiac Rehab:: Yes Sessions:: 36 sessions - 3 days/wk, 12 weeks Cardiac Rehabilitation Info Cardiac Rehabilitation Program Information: Cardiac Rehabilitation is important for patients like you who are recovering from a heart problem. Cardiac rehabilitation programs are recognized as integral to the continued care of the patient with coronary heart disease. The cardiac rehabilitation program is designed to optimize a patient's physical, psychological, and social functioning. Health student career development specialist work in cardiac rehabilitation programs and assist you with getting the treatments you need to get stronger and healthier - like exercise, healthy eating habits, and medications. Cardiac rehabilitation has been show to help people with heart problems live longer and have better life enjoyment than people who do not go to cardiac rehabilitation. Please contact the Cardiac Rehabilitation Program at [facility] at in two weeks if you have not heard from them.
--- NOTE | 2021-05-27 14:13 | CRPH1.INSTRU ---
General Education CAD and cardiac anatomy and function:: Patient communicates acknowledgment, Family communicates acknowledgment Explanation of diagnoses and procedures:: Patient communicates acknowledgment, Family communicates acknowledgment Sign/Symptoms of IL:: Patient communicates acknowledgment, Family communicates acknowledgment Antiplatelet therapy: Patient communicates acknowledgment, Family communicates acknowledgment Proper use of NTG-SL: Patient communicates acknowledgment, Family communicates acknowledgment Emergency procedures and activation of EMS: Patient communicates acknowledgment, Family communicates acknowledgment Compliance of all prescribed medications: Patient communicates acknowledgment, Family communicates acknowledgment Smoking Recommendations Include:: Previous smoker; encourage continued cessation Nicotine/Smoking Response Code:: Patient communicates acknowledgment, Family communicates acknowledgment Dyslipidemia Patient Dyslipidemia Risk Factors Are:: Total Cholesterol, Triglycerides, HDL, LDL Recommendations Include:: Lipid profile not available, Therapeutic Lifestyle Change dietary guidelines Dyslipidemia Response Code:: Patient communicates acknowledgment, Family communicates acknowledgment Overweight/Obesity Patient Overweight/Obesity Risk Factors Are:: BMI Normal [24-29 & > 65 years old] Recommendations Include:: Weight loss of 5-10%, Reduced calorie diet, Exercise 5-7 times/week Overweight/Obesity:: Patient communicates acknowledgment, Family communicates acknowledgment Hypertension Recommendations Include:: Maintain BP <130/85, DASH dietary guidelines, Decrease/maintain normal body weight Hypertension:: Patient communicates acknowledgment, Family communicates acknowledgment Diabetes Patient Diabetes Risk Factors Are:: No documented hx of diabetes Sedentary Patient Sedentary Risk Factors Are:: Lack of regular exercise Recommendations Include:: Aerobic exercise 5-7 times/week for 20-30 minutes continuously, Benefits of regular exercise, Discussed home walking program, Monitored Outpatient Cardiac Rehab Sedentary Response Code:: Patient communicates acknowledgment, Family communicates acknowledgment
[2021-05-27] MEDS: 0.9% Normal Saline 1,000 ML 60 ML IV (15:01)
[2021-05-27] MEDS: Budesonide Respules 0.5 MG/2 ML AMPUL.NEB. INHALATION (19:57)
[2021-05-27] MEDS: Ipratropium/Albuterol Sulfate 3 ML AMPUL.NEB INHALATION (19:57)
[2021-05-27] MEDS: LORazepam 0.5 MG Tablet PO (21:51)
[2021-05-27] MEDS: Tamsulosin HCl 0.4 MG Capsule 0.8 MG PO (21:52)
[2021-05-28] VITALS (7 sets, daily range): BP systolic 97–101; BP diastolic 56–72; PULSE 67–81; RESP 16–18; TEMP 36.3–36.4; O2SAT 95–96
[2021-05-28 06:25] LABS: Hematocrit 34.2 % (40-54); Hemoglobin 11.6 g/dL (13.0-16.5); Mean Corp Hgb Conc 33.9 g/dL (32-36); Mean Corpuscular Hgb 32.2 pg (27.0-32.0); Mean Platelet Vol. 9.9 fl (6.2-12.0); Platelet Count 205 K/mm3 (150-450); RBC Distribution Width CV 13.4 % (11.6-14.6); RBC Distribution Width SD 46.7 fl (35.1-43.9); White Blood Count 9.8 K/mm3 (4.4-11.0)
[2021-05-28 06:52] LABS: AST(SGOT) 10 U/L (15-37); Alanine Aminotransfer ALT/SGPT 13 U/L (16-61); Alkaline Phosphatase 56 U/L (45-117); Anion Gap 2 (5-15); BUN 15 mg/dL (7-18); BUN/Creat Ratio 12.5 RATIO (10-20); Calcium,Total 8.1 mg/dL (8.5-10.1); Chloride 104 mmol/L (98-107); EST Glomerular Filtration Rate 62 mL/min (>60); Est Glom Filt Rate - Afr Amer 74 mL/min (>60); Estimated Creatinine Clearance 45.92 ml/min; Glucose 105 mg/dL (74-106); Potassium 4.2 mmol/L (3.5-5.1); Sodium Level 136 mmol/L (136-145)
[2021-05-28] MEDS: Ipratropium/Albuterol Sulfate 3 ML AMPUL.NEB INHALATION (06:58)
[2021-05-28] MEDS: Budesonide Respules 0.5 MG/2 ML AMPUL.NEB. INHALATION (06:58)
[2021-05-28] MEDS: Carvedilol 6.25 MG Tablet PO (07:38)
[2021-05-28] MEDS: Atorvastatin Calcium 10 MG Tablet PO (07:39)
[2021-05-28] MEDS: Cholecalciferol (VIT D3) 25 MCG TABLET (1,000 UNITS) PO (07:39)
[2021-05-28] MEDS: Aspirin E.C. 81 MG Tablet PO (07:39)
[2021-05-28] MEDS: Finasteride 5 MG Tablet PO (07:39)
[2021-05-28] MEDS: Pantoprazole Sodium 40 MG Tablet PO (07:39)
[2021-05-28] MEDS: Sertraline 50 MG Tablet PO (07:39)
--- NOTE | 2021-05-28 08:07 | PN.CARD_ITS ---
Subjective Subjective Patient seen and evaluated. Appears to be stable. Objective Data Vital Signs: Vital Signs Temp Pulse Resp BP Pulse Ox 97.6 F L 75 18 101/72 95 05/28/21 07:35 05/28/21 07:59 05/28/21 07:35 05/28/21 07:35 05/28/21 07:35 Oxygen Delivery Method Room Air Weight: 190 lb Body Mass Index (BMI) 28.8 Intake & Output: Intake and Output for Last 24 Hours 05/26/21 05/27/21 05/28/21 23:59 23:59 23:59 Intake Total 619 / 619 Output Total 200 / 200 550 / 550 Balance 419 / 419 -550 / -550 Lab / Micro Data Result Diagrams: 05/28/21 05:04 05/28/21 05:04 Labs: Laboratory Results - last 24 hr 05/28/21 05:04: WBC 9.8, RBC 3.60 L, Hgb 11.6 L, Hct 34.2 L, MCV 95.0 H, MCH 32.2 H, MCHC 33.9, RDW Std Deviation 46.7 H, RDW Coeff of David 13.4, Plt Count 205, MPV 9.9 05/28/21 05:04: Sodium 136, Potassium 4.2, Chloride 104, Carbon Dioxide 30.0, Anion Gap 2 L, BUN 15, Creatinine 1.20, Estim Creat Clear Calc 45.92, Est GFR (MDRD) Af Amer 74, Est GFR (MDRD) Non-Af 62, BUN/Creatinine Ratio 12.5, Glucose 105, Calcium 8.1 L, Total Bilirubin 0.40, AST 10 L, ALT 13 L, Alkaline Phosphatase 56, Total Protein 6.0 L, Albumin 3.0 L, Globulin 3.0, Albumin/Globulin Ratio 1.0 Cardiology Labs/Tests 05/28/21 05:04: WBC 9.8, RBC 3.60 L, Hgb 11.6 L, Hct 34.2 L, MCV 95.0 H, MCH 32.2 H, MCHC 33.9, Plt Count 205, MPV 9.9 05/28/21 05:04: Sodium 136, Potassium 4.2, Chloride 104, Carbon Dioxide 30.0, Anion Gap 2 L, BUN 15, Creatinine 1.20, Est GFR (MDRD) Af Amer 74, Est GFR (MDRD) Non-Af 62, BUN/Creatinine Ratio 12.5, Glucose 105, Calcium 8.1 L, Total Bilirubin 0.40 Rhythm: EKG: ECHO: Stress Test: Cardiac Cath: PCI: CT Surgery: Holter monitor: EPS: PPM: CXR: Chest CT Scan: Physical Exam Const alert, oriented x3 and no apparent distress General Appearance: cooperative HEENT hearing grossly normal bilaterally Head and Scalp: atraumatic Eyes EOMs intact bilaterally Neck General: normal visual inspection Chest inspection of chest normal and palpation of chest normal Resp normal respiratory effort Auscultation: clear to auscultation bilaterally Cardio regular rate, regular rhythm, S1 normal heart sound and S2 normal heart sound Jugular Venous Distention: JVD GI normal to inspection, nondistended, normoactive bowel sounds Extremity normal capillary refill and no pedal edema Peripheral Pulses: Yes pulses 2+ throughout and femoral pulses present Skin no rashes or lesions noted Neuro oriented x3 and CN's II-XII intact bilaterally Psych Appearance: grossly normal and appropriate Assessment & Plan Assessment/Plan (1) CAD (coronary artery disease): PLAN: Patient underwent cardiac catheterization yesterday which demonstrated a subtotally occluded first diagonal vessel. Angioplasty was attempted on this vessel but was unsuccessful. Patient was observed overnight and appears to be well this morning. Will be discharged for outpatient follow- up. Will remain on medical therapy. Thank you for allowing me to participate in the care of your patient. Please don't hesitate to call if any issues arise.
--- NOTE | 2021-05-28 08:09 | PCM.DC ---
Discharge Instructions Diet Discharge Diet: No restrictions (You may continue your normal diet.) Activity Lifting Restrictions: 10 pounds and also avoid any pushing or pulling for 3 days after your test. Additional Activity Instructions:: You must have someone drive you home. Do not drive until instructed by your doctor. You must have someone stay with you all night after your test. Rest in bed or on the couch until the next morning. Limit the number of times you go up and down stairs the day of your test. Apply pressure to the puncture site if you sneeze or cough. Dressing / Incision Call your doctor if your incision/area has: Increased Pain/ Swelling, Increased Redness, Foul Smelling Discharge and Swelling at the incision site Call your doctor if you observe: Fever of 101 or Higher Additional Dressing/Incision Instructions:: Keep the dressing (bandage) on until the next morning. You may then shower, but do not take a tub bath for 5 days after your test. It is normal to have some tenderness and discomfort at the puncture site. Sometimes bruising also occurs. However, if pain, numbness, or coldness occurs below the puncture site (in your leg, toes, arms or fingers) call your doctor at once. You may have a small, marble sized knot at the puncture site. This is normal. Do not rub it. It will go away in 4-6 weeks. Bleeding can occur from the area where the puncture was done. Blood may spurt or drip from the site. If blood spurts, apply pressure right away to stop bleeding and call 911. Although rare, bleeding into the tissue (hematoma) can also occur. If this happens, a large, firm area goose egg under the skin will appear. If any of these occur, lie down as flat as you can and have someone apply firm pressure to the cath site with a gauze pad or a clean washcloth for 10-15 minutes. Call 911 or go to the Emergency Department. Follow Up Care Test Results: Test results from this visit will be discussed in further detail at your follow-up appointment, if applicable. RESUME BLOOD THINNERS ON THURSDAY Discharge Plan Admission Admit Date/Time: 05/27/21 21:56 Attending Provider: Luciano Ponce Primary Care Provider: Arnulfo Rascon Discharge Orders/Prescriptions Prescriptions: No Action rosuvastatin [Crestor] 5 mg tablet 5 mg PO QDAY RF: 0 lorazepam 0.5 mg tablet 0.5 mg PO QHS RF: 0 carvedilol [Coreg] 6.25 mg tablet 6.25 mg PO BID RF: 0 pantoprazole 40 mg tablet,delayed release (DR/EC) 40 mg PO DAILY RF: 0 Spiriva Respimat 2.5 mcg/actuation mist 2 inh INHALATION QAM RF: 0 finasteride 5 mg tablet 5 mg PO DAILY RF: 0 B-complex with vitamin C Solution .Route RF: 0 budesonide-formoterol [Symbicort] 80-4.5 mcg/actuation HFA aerosol inhaler 2 puff inhalation BID RF: 0 aspirin [Adult Aspirin Regimen] 81 mg tablet,delayed release (DR/EC) 81 mg PO QDAY Qty: 90 RF: 3 sertraline 50 MG tablet 50 mg PO DAILY RF: 0 apixaban 5 mg tablet 5 mg PO BID Qty: 180 RF: 3 Hold Instructions: 05/24/21-[facility] Asmanex HFA 200 mcg/actuation HFA aerosol inhaler 2 puff inhalation BID RF: 0 tamsulosin [Flomax] 0.4 mg capsule 0.8 mg PO QHS RF: 0 guaifenesin [Mucinex] 600 mg tablet extended release 12hr 600 mg PO BID RF: 0 Stiolto Respimat 2.5-2.5 mcg/actuation mist 2 puff inhalation DAILY RF: 0 cimetidine [Tagamet HB] 200 mg tablet 200 mg PO ONCE PRN (Reason: reflux) RF: 0 mecobalamin (vitamin B12) 1,000 mcg tablet,chewable 1,000 mcg PO DAILY RF: 0 cholecalciferol (vitamin D3) 25 mcg (1,000 unit) tablet 25 mcg PO DAILY RF: 0 acetaminophen 500 mg tablet 500 mg PO Q4H PRN (Reason: Pain) RF: 0
== END 2021-05-28 11:39 | disposition home or self-care (01) ==
LOC: CLSP 22:14 → PCU 22:14
PROVIDERS: Specialist; Admitting Provider Internal Medicine Cardiovascular Disease; PCP Family Medicine; Visit Provider Internal Medicine Cardiovascular Disease
DX: I25.10 Atherosclerotic heart disease of native coronary artery without angina pectoris (principal); J44.9 Chronic obstructive pulmonary disease, unspecified; I48.0 Paroxysmal atrial fibrillation; R06.02 Shortness of breath; I10 Essential (primary) hypertension; E78.5 Hyperlipidemia, unspecified; N40.0 Benign prostatic hyperplasia without lower urinary tract symptoms; R94.39 Abnormal result of other cardiovascular function study; K21.9 Gastro-esophageal reflux disease without esophagitis; G47.33 Obstructive sleep apnea (adult) (pediatric); Z87.891 Personal history of nicotine dependence; Z79.01 Long term (current) use of anticoagulants; Z79.82 Long term (current) use of aspirin; Z79.899 Other long term (current) drug therapy
CPT/HCPCS: 36415; 80053; 85027; 92928; 93005; 93454; 94640; 99152; 99153; 99218; J7030; J7040; Q9967; C1760; C1769; C1887; C1894; C9600; G0378; J1327

== ENCOUNTER → 2021-12-02 | Outpatient (CLI) | payer MEDICARE, SELFPAY | END | disposition home or self-care (01) | LOC: LAB 14:44 | PROVIDERS: PCP Family Medicine; Referring Provider Internal Medicine Pulmonary Disease; Visit Provider Internal Medicine Pulmonary Disease | DX: J44.9 Chronic obstructive pulmonary disease, unspecified (principal); R07.0 Pain in throat | CPT/HCPCS: 87070; 87077; 87186; 87205 ==

== ENCOUNTER → 2022-01-25 | Outpatient (CLI) | payer MEDICARE, SELFPAY | END | disposition home or self-care (01) | LOC: LABSPEC 12:03 | PROVIDERS: PCP Family Medicine; Referring Provider Internal Medicine Pulmonary Disease; Visit Provider Internal Medicine Pulmonary Disease | DX: R05.9 Cough, unspecified (principal) | CPT/HCPCS: 87070; 87205 ==

== ENCOUNTER 2022-01-31 15:02 | Emergency (ER) | payer MEDICARE, SELFPAY ==
[2022-01-31 15:05] VITALS: BP 86/70; PULSE 68; RESP 14; TEMP 35.7; O2SAT 94; BMI 29.0
--- NOTE | 2022-01-31 15:29 | EKG12_ITS ---
Test Reason : SOB Blood Pressure : / mmHG Vent. Rate : 114 BPM Atrial Rate : 000 BPM P-R Int : 000 ms QRS Dur : 078 ms QT Int : 298 ms P-R-T Axes : 000 -33 071 degrees QTc Int : 410 ms Atrial fibrillation with rapid ventricular response Left axis deviation Abnormal ECG Confirmed by TOMÁS DEAN, DORINA ([id number]), department editor CAREN ROCHA ([id number]) on 02/04/2022 7:30:12 AM Referred By: WILLIAMS Confirmed By:DORINA ENGLAND MD
--- NOTE | 2022-01-31 15:35 | EDS_ITS ---
HPI <JULIA Lee - Last Filed: 01/31/22 19:19> History of Present Illness Chief Complaint: Shortness of Breath Narrative Narrative: 81-year-old male with history of COPD, atrial fibrillation on Eliquis, anxiety, depression, hypertension, CAD presents the emergency department with ongoing shortness of breath. Patient has been dealing with COPD exacerbations over the last several days, he had a follow-up appointment with his doctor today. Per the doctor, who did call here, he is worsening shortness of breath, he is in uncontrolled A. fib and he would like a further work-up here. Patient states that he does feel overly tired, he denies any pain. Denies any fever or chills. Patient is here with family [facility] <JULIA Lee - Last Filed: 01/31/22 19:19> [facility] Medical History (Updated 01/31/22 @ 19:19 by JULIA Lee) Abnormal stress test Atherosclerotic heart disease of [place] coronary artery without angina pectoris BPH (benign prostatic hyperplasia) COPD (chronic obstructive pulmonary disease) GERD (gastroesophageal reflux disease) Hyperlipidemia Obstructive sleep apnea Paroxysmal atrial fibrillation SVT (supraventricular tachycardia) Home Medications lorazepam 0.5 mg tablet 0.5 mg PO QHS anxiety 07/04/17 [History Last Taken 01/03/18 20:00] rosuvastatin 5 mg tablet (Crestor) 5 mg PO QDAY cholesterol 07/04/17 [History Last Taken 01/03/18] sertraline 50 mg tablet 50 mg PO DAILY 12/01/18 [History Last Taken Unknown] tiotropium bromide 2.5 mcg/actuation mist for inhalation (Spiriva Respimat) 2 inh inhalation QAM 04/11/20 [History Last Taken Unknown] budesonide-formoterol HFA 80 mcg-4.5 mcg/actuation aerosol inhaler (Symbicort) 2 puff inhalation BID 01/10/21 [History Last Taken Unknown] acetaminophen 500 mg tablet 500 mg PO Q4H PRN Pain 05/22/21 [History Last Taken Unknown] cholecalciferol (vitamin D3) 25 mcg (1,000 unit) tablet 25 mcg PO DAILY 05/22/21 [History Last Taken Unknown] cimetidine 200 mg tablet (Tagamet HB) 200 mg PO ONCE PRN reflux 05/22/21 [History Last Taken Unknown] guaifenesin 600 mg tablet, extended release 12 hr (Mucinex) 600 mg PO BID 05/22/21 [History Last Taken Unknown] mecobalamin (vitamin B12) 1,000 mcg chewable tablet 1,000 mcg PO DAILY 05/22/21 [History Last Taken Unknown] mometasone 200 mcg/actuation HFA aerosol inhaler (Asmanex HFA) 2 puff inhalation BID 05/22/21 [History Last Taken Unknown] tamsulosin 0.4 mg capsule (Flomax) 0.8 mg PO QHS BPH 05/22/21 [History Last Taken Unknown] tiotropium 2.5 mcg-olodaterol 2.5 mcg/actuation mist for inhalation (Stiolto Respimat) 2 puff inhalation DAILY 05/22/21 [History Last Taken Unknown] apixaban 5 mg tablet 5 mg PO BID 06/27/21 [History Last Taken Unknown] isosorbide mononitrate 30 mg tablet,extended release 24 hr 30 mg PO DAILY 06/27/21 [History Last Taken Unknown] metoprolol succinate 25 mg tablet,extended release 24 hr 25 mg PO DAILY 06/27/21 [History Last Taken Unknown] nitroglycerin 0.4 mg sublingual tablet 0.4 mg sublingual Q5M PRN 06/27/21 [History Last Taken Unknown] Allergy/AdvReac Type Severity Reaction Status Date / Time No Known Allergies Allergy Verified 01/31/22 15:05 Family History Mother , Age 64 from Emphysema COPD (chronic obstructive pulmonary disease) Blood disorder Surgical History (Updated 05/28/21 @ 10:40 by Meg Cordova) History of ankle surgery History of appendectomy History of back surgery History of inguinal hernia repair History of left heart catheterization (05/27/21) History of tonsillectomy History of umbilical hernia repair Social History Smoking Status: Former smoker how long ago did patient quit smokin years ago alcohol intake: current alcohol intake frequency: holidays/special occasions only caffeine: Yes Type: coffee Number of servings: 2 ROS <JULIA Lee - Last Filed: 01/31/22 19:19> ROS ED ROS Narrative Constitutional: Negative for fever, chills, weight loss. Positive generalized weakness Eyes: Negative for vision loss, vision change, double vision ENT: Negative for any sore throat, ear pain, congestion Cardiovascular: Negative for any chest pain, tightness. Positive palpitations Respiratory: Negative for any cough, sputum production, hemoptysis. Positive dyspnea, dyspnea on exertion, orthopnea Gastrointestinal: Negative for any abdominal pain, nausea, vomiting, diarrhea, constipation, blood in stool, blood in vomit : Negative for any urinary frequency, dysuria, retention, blood in urine Muscle skeletal: Negative for any muscle joint pain, stiffness, myalgias, arthralgias, neck pain, back pain Neurological: Negative for any headache, syncope, numbness or tingling, dizziness Skin: Negative for any rashes, lumps, itching, abrasions, lacerations Psychiatric: Negative for any depression, anxiety, stress, suicidal ideation, homicidal ideation Hematologic: Negative for any easy bruising, excessive bruising, easy bleeding Allergies: Negative for any eczema, hives, rash EXAM <Sandoval Manzo NP-C - Last Filed: 01/31/22 19:19> Physical Exam Narrative Exam Narrative: Vital signs reviewed. Patient alert and orient x4. Patient's vital signs are stable. Patient is tachycardic between 1 20-1 60 HEET: Head normocephalic atraumatic, TMs clear bilaterally. Posterior pharynx is clear, moist mucous membranes. Nares clear bilaterally. Neck: Supple with no lymphadenopathy or tenderness. No signs of meningismus, negative jolt sign. Cardiac: Irregular rate and rhythm, tachycardic rate no murmurs gallops or rubs, equal peripheral pulses bilaterally. Respiratory: Right lung shows some crackles, slight expiratory wheeze, left lung was extremely diminished with minimal air sound. No chest tenderness. Abdomen: Soft, nontender, nondistended. No abdominal bruit or pulsatile masses. No hepatosplenomegaly Extremities: No peripheral edema, no signs of gross trauma or deformity. Active full range of motion of all extremities. Neuro: Cranial nerves II through XII intact, no focal neurological deficits. Skin: Clean dry and intact with no rash, purpura, petechiae, vesicles or pustules. Backs/flank: No CVA tenderness, no midline spinal tenderness, no deformity. Psych: Normal mood and affect. No SI, HI or acute psychosis. Const Vital Signs: 01/31/22 15:05 01/31/22 15:29 01/31/22 16:26 Temperature 96.2 F L Temperature Source Temporal Pulse Rate 68 Respiratory Rate 14 Respiratory Effort Short of Breath Respiratory Depth Normal Respiratory Pattern Normal Blood Pressure 86/70 L Blood Pressure Mean 75 Pulse Ox 94 Oxygen Delivery Method Room Air Room Air Room Air 01/31/22 18:00 01/31/22 19:28 Temperature Temperature Source Pulse Rate 96 90 Respiratory Rate 14 17 Respiratory Effort Respiratory Depth Respiratory Pattern Blood Pressure 138/78 H Blood Pressure Mean 98 Pulse Ox 94 97 Oxygen Delivery Method Room Air <Dr. Eloise Chiu MD - Last Filed: 01/31/22 19:35> Physical Exam Const Vital Signs: 01/31/22 15:05 01/31/22 15:29 01/31/22 16:26 Temperature 96.2 F L Temperature Source Temporal Pulse Rate 68 Respiratory Rate 14 Respiratory Effort Short of Breath Respiratory Depth Normal Respiratory Pattern Normal Blood Pressure 86/70 L Blood Pressure Mean 75 Pulse Ox 94 Oxygen Delivery Method Room Air Room Air Room Air 01/31/22 18:00 01/31/22 19:28 Temperature Temperature Source Pulse Rate 96 90 Respiratory Rate 14 17 Respiratory Effort Respiratory Depth Respiratory Pattern Blood Pressure 138/78 H Blood Pressure Mean 98 Pulse Ox 94 97 Oxygen Delivery Method Room Air MDM <JULIA Lee - Last Filed: 01/31/22 19:19> [facility] Lab Data Labs: Laboratory Results - last 24 hr 01/31/22 01/31/22 01/31/22 15:52 15:52 15:52 WBC 13.0 H RBC 4.56 L Hgb 14.0 Hct 42.5 MCV 93.2 MCH 30.7 MCHC 32.9 RDW Std Deviation 46.8 H RDW Coeff of David 13.7 Plt Count 269 MPV 9.3 Immature Gran % (Auto) 3.600 H Neut % (Auto) 85.6 H Lymph % (Auto) 5.5 L [place] % (Auto) 4.7 Eos % (Auto) 0.1 Baso % (Auto) 0.5 Absolute Neuts (auto) 11.1 H Absolute Lymphs (auto) 0.71 L Nucleated RBC % 0 PT 16.7 H INR 1.4 Sodium 137 Potassium 4.5 Chloride 103 Carbon Dioxide 27.0 Anion Gap 7 BUN 16 Creatinine 1.06 Estim Creat Clear Calc 51.08 Est GFR (MDRD) Af Amer 86 Est GFR (MDRD) Non-Af 71 BUN/Creatinine Ratio 15.1 Glucose 139 H Calcium 9.0 Troponin I High Sens 11 B-Natriuretic Peptide 01/31/22 01/31/22 15:52 18:23 WBC RBC Hgb Hct MCV MCH MCHC RDW Std Deviation RDW Coeff of David Plt Count MPV Immature Gran % (Auto) Neut % (Auto) Lymph % (Auto) [place] % (Auto) Eos % (Auto) Baso % (Auto) Absolute Neuts (auto) Absolute Lymphs (auto) Nucleated RBC % PT INR Sodium Potassium Chloride Carbon Dioxide Anion Gap BUN Creatinine Estim Creat Clear Calc Est GFR (MDRD) Af Amer Est GFR (MDRD) Non-Af BUN/Creatinine Ratio Glucose Calcium Troponin I High Sens 11 B-Natriuretic Peptide 217.8 H Radiography Diagnostic Testing: Clinical Impression(s) from Imaging Studies Chest X-Ray 01/31/22 15:51 IMPRESSION: Increased interstitial markings at the lung bases are unchanged. Electronically Signed: Sanjay Hua MD at 16:53 EST , EKG Atrial fibrillation with rapid ventricular response: Attestation: I personally reviewed and interpreted this EKG as follows: Comments: A. fib with rapid ventricular response, rate 114 bpm, QRS duration 78 ms, with no acute ST elevation, no acute infarct noted Treatment and Re-Evaluation Narrative: Patient appears to be in no respiratory distress, patient is in atrial fibrillation with a heart rate of 140, patient presents the emergency department with worsening shortness of breath secondary to A. fib. Patient did receive a full cardiac work-up.Patient CBC shows a white blood count of 13.0, this could be secondary to the chronic steroid use, patient's initial troponin was 11, repeat was 11, this is negative, BNP was 217. The remainder of his chemistries were unremarkable. Patient was given 10 mg of IV Cardizem, this per the patient in a controlled rate between 70 and 90. Patient chest x-ray showed increased interstitial markings however nothing has changed, chronic findings. Patient was ambulated around the department, patient remained at 94%, with a heart rate just under 100. Patient feels well enough to be discharged. Patient will follow up closely outpatient. Patient was given strict return precautions. At this time there is no indication of any ACS, ID. Patient has not in A. fib with RVR upon discharge. Patient stable for discharge. He is to continue his Eliquis. <Dr. Eloise Chiu MD - Last Filed: 01/31/22 19:35> [facility] Lab Data Labs: Laboratory Results - last 24 hr 01/31/22 01/31/22 01/31/22 15:52 15:52 15:52 WBC 13.0 H RBC 4.56 L Hgb 14.0 Hct 42.5 MCV 93.2 MCH 30.7 MCHC 32.9 RDW Std Deviation 46.8 H RDW Coeff of David 13.7 Plt Count 269 MPV 9.3 Immature Gran % (Auto) 3.600 H Neut % (Auto) 85.6 H Lymph % (Auto) 5.5 L [place] % (Auto) 4.7 Eos % (Auto) 0.1 Baso % (Auto) 0.5 Absolute Neuts (auto) 11.1 H Absolute Lymphs (auto) 0.71 L Nucleated RBC % 0 PT 16.7 H INR 1.4 Sodium 137 Potassium 4.5 Chloride 103 Carbon Dioxide 27.0 Anion Gap 7 BUN 16 Creatinine 1.06 Estim Creat Clear Calc 51.08 Est GFR (MDRD) Af Amer 86 Est GFR (MDRD) Non-Af 71 BUN/Creatinine Ratio 15.1 Glucose 139 H Calcium 9.0 Troponin I High Sens 11 B-Natriuretic Peptide 01/31/22 01/31/22 15:52 18:23 WBC RBC Hgb Hct MCV MCH MCHC RDW Std Deviation RDW Coeff of David Plt Count MPV Immature Gran % (Auto) Neut % (Auto) Lymph % (Auto) [place] % (Auto) Eos % (Auto) Baso % (Auto) Absolute Neuts (auto) Absolute Lymphs (auto) Nucleated RBC % PT INR Sodium Potassium Chloride Carbon Dioxide Anion Gap BUN Creatinine Estim Creat Clear Calc Est GFR (MDRD) Af Amer Est GFR (MDRD) Non-Af BUN/Creatinine Ratio Glucose Calcium Troponin I High Sens 11 B-Natriuretic Peptide 217.8 H Radiography Diagnostic Testing: Clinical Impression(s) from Imaging Studies Chest X-Ray 01/31/22 15:51 IMPRESSION: Increased interstitial markings at the lung bases are unchanged. Electronically Signed: Sanjay Hua MD at 16:53 EST Reading Location ID and State: [facility] / [place] , Service support , Treatment and Re-Evaluation Narrative: Patient appears to be in no respiratory distress, patient is in atrial fibrillation with a heart rate of 140, patient presents the emergency department with worsening shortness of breath secondary to A. fib. Patient did receive a full cardiac work-up.Patient CBC shows a white blood count of 13.0, this could be secondary to the chronic steroid use, patient's initial troponin was 11, repeat was 11, this is negative, BNP was 217. The remainder of his chemistries were unremarkable. Patient was given 10 mg of IV Cardizem, this per the patient in a controlled rate between 70 and 90. Patient chest x-ray showed increased interstitial markings however nothing has changed, chronic findings. Patient was ambulated around the department, patient remained at 94%, with a heart rate just under 100. Patient feels well enough to be discharged. Patient will follow up closely outpatient. Patient was given strict return precautions. At this time there is no indication of any ACS, ID. Patient has not in A. fib with RVR upon discharge. Patient stable for discharge. He is to continue his Eliquis. Patient seen and evaluated with [facility]ENITA. I personally interviewed and examined the patient. I was involved in all aspects of patient's orders, interpretation of results, and treatment. Patient presents from pulmonary office secondary to shortness of breath and diminished breath sounds on the left. He is also noted to be in A. fib RVR. Patient does have a history of paroxysmal A. fib and takes metoprolol for rate control as well as Eliquis for blood thinner. Patient reportedly was recently on an antibiotic and is currently on a steroid for a COPD flare. He states when he sits at rest he really does not feel short of breath but becomes more dyspneic with exertion. His normal O2 sat on room air is between 92 - 94%. Patient sitting upright in bed in no acute distress. He speaking full sentences. Head neck examination unremarkable. Heart is irregular. Lung sounds are diminished on the left. Lung sounds are clear on the right. Abdomen is soft and nontender. Lower extremity examination reveals minimal bilateral lower extremity edema that is symmetric. EKG reveals A. fib with ventricular rate of 114. No acute ischemia. Chest x- ray per my interpretation reveals chronic changes with no acute finding. Lab work is unremarkable. Troponin measured x2 is normal at 11 on each draw. Patient wishes to go home. He is ambulated in the vega and is not hypoxic. He will be given close return instructions. Discharge Plan Triage Chief Complaint: Shortness of Breath ED Midlevel Provider: Sandoval Manzo ED Provider: Eloise Chiu Dx/Rx/DC Orders Clinical Impression: Paroxysmal atrial fibrillation, COPD (chronic obstructive pulmonary disease) Instructions: Asthma and COPD, AFib Dc Prescriptions: No Action rosuvastatin [Crestor] 5 mg tablet 5 mg PO QDAY lorazepam 0.5 mg tablet 0.5 mg PO QHS Spiriva Respimat 2.5 mcg/actuation mist 2 inh INHALATION QAM budesonide-formoterol [Symbicort] 80-4.5 mcg/actuation HFA aerosol inhaler 2 puff inhalation BID apixaban 5 mg tablet 5 mg PO BID metoprolol succinate 25 mg tablet extended release 24 hr 25 mg PO DAILY isosorbide mononitrate 30 mg tablet extended release 24 hr 30 mg PO DAILY nitroglycerin 0.4 mg tablet, sublingual 0.4 mg sublingual Q5M PRN Rx Instructions: do not exceed 3 doses per episode sertraline 50 MG tablet 50 mg PO DAILY Asmanex HFA 200 mcg/actuation HFA aerosol inhaler 2 puff inhalation BID tamsulosin [Flomax] 0.4 mg capsule 0.8 mg PO QHS guaifenesin [Mucinex] 600 mg tablet extended release 12hr 600 mg PO BID Stiolto Respimat 2.5-2.5 mcg/actuation mist 2 puff inhalation DAILY cimetidine [Tagamet HB] 200 mg tablet 200 mg PO ONCE PRN (Reason: reflux) mecobalamin (vitamin B12) 1,000 mcg tablet,chewable 1,000 mcg PO DAILY cholecalciferol (vitamin D3) 25 mcg (1,000 unit) tablet 25 mcg PO DAILY acetaminophen 500 mg tablet 500 mg PO Q4H PRN (Reason: Pain) Primary Care Provider: Arnulfo Rascon Referrals: Arnulfo Rascon MD [Primary Care Provider] - Activity Restrictions/Additional Instructions: Please follow-up outpatient. Return here for uncontrolled heart rate, shortness of breath. Disposition Disposition: Home, Self Care Discharge Date/Time: 01/31/22 19:28
--- NOTE | 2022-01-31 15:51 | RAD_ITS ---
STUDY: X-RAY CHEST REASON FOR EXAM: Male, 81 years old. chest pain TECHNIQUE: Single frontal view of the chest. COMPARISON: June 01, 2021 FINDINGS: Increased interstitial markings at the lung bases again noted. There is no demonstrated pleural abnormality. Normal size heart. Normal mediastinum and gregorio. Normal visualized pulmonary arteries. Normal visualized aortic arch and descending thoracic aorta. Normal visualized thoracic spine. Normal visualized ribs, clavicles, and shoulders. There is no demonstrated abnormality of the visualized soft tissue structures of the upper abdomen. RAD/Chest 1 View (Portable) IMPRESSION: Increased interstitial markings at the lung bases are unchanged. Electronically Signed: Sanjay Hua MD at 16:53 EST ,
[2022-01-31] MEDS: dilTIAZem 25 MG/5 ML Vial 10 MG IV BOLUS (16:17)
[2022-01-31 16:31] LABS: Absolute Lymphocyte Count 0.71 X10^3/uL (0.83-4.51); Absolute Neutrophil Count 11.1 X10^3/uL (2.0-7.7); Basophil# 0.06 X10^3/uL; Basophil% 0.5 % (0-1); Eosinophil# 0.01 X10^3/uL; Eosinophils% 0.1 % (0-5); Hematocrit 42.5 % (40-54); Lymphocyte # 0.71 X10^3/ul (0.83-4.51); Lymphocyte % 5.5 % (19-41); Mean Corp Hgb Conc 32.9 g/dL (32-36); Mean Corpuscular Hgb 30.7 pg (27.0-32.0); Mean Corpuscular Volume 93.2 fL (80-94); Mean Platelet Vol. 9.3 fl (6.2-12.0); Monocyte# 0.61 X10^3/uL; Monocyte% 4.7 % (0-10); NRBC Flagged by Analyzer 0 % (0-5); Neutrophil # 11.14 X10^3/uL (2.7-7.7); Neutrophil % 85.6 % (47-70); Platelet Count 269 K/mm3 (150-450); RBC Distribution Width CV 13.7 % (11.6-14.6); RBC Distribution Width SD 46.8 fl (35.1-43.9); Red Blood Count 4.56 M/mm3 (4.6-6.2)
[2022-01-31 16:37] LABS: International Normalized Ratio 1.4; Prothrombin Time (Protime)PT. 16.7 SECONDS (11.7-14.9)
[2022-01-31 16:47] LABS: Anion Gap 7 (5-15); BUN 16 mg/dL (7-18); BUN/Creat Ratio 15.1 RATIO (10-20); Chloride 103 mmol/L (98-107); Creatinine, Serum 1.06 mg/dL (0.70-1.30); EST Glomerular Filtration Rate 71 mL/min (>60); Est Glom Filt Rate - Afr Amer 86 mL/min (>60); Estimated Creatinine Clearance 51.08 ml/min; Glucose 139 mg/dL (74-106); Potassium 4.5 mmol/L (3.5-5.1); Sodium Level 137 mmol/L (136-145); Troponin-I HS (w/2H Reflex) 11 pg/mL (3.0-78.0)
[2022-01-31 16:56] LABS: BNP,B-Type NATRIURETIC PEPTIDE 217.8 pg/mL (0-100)
[2022-01-31 18:00] VITALS: BP 138/78; PULSE 96; RESP 14; O2SAT 94
[2022-01-31 18:17] LABS: Reflex Troponin-HS? (from REC) Y
[2022-01-31 18:53] LABS: Troponin-I HS 11 pg/mL (3.0-78.0)
[2022-01-31 19:07] VITALS: O2SAT 94
[2022-01-31 19:28] VITALS: PULSE 90; RESP 17; O2SAT 97
== END 2022-01-31 19:28 | disposition home or self-care (01) ==
PROVIDERS: Nurse Practitioner; Emergency Provider Emergency Medicine; PCP Family Medicine; Visit Provider Emergency Medicine
DX: I48.0 Paroxysmal atrial fibrillation (principal); J44.9 Chronic obstructive pulmonary disease, unspecified; I10 Essential (primary) hypertension; E78.5 Hyperlipidemia, unspecified; F41.9 Anxiety disorder, unspecified; I25.10 Atherosclerotic heart disease of native coronary artery without angina pectoris; R06.02 Shortness of breath; F32.A Depression, unspecified; Z79.01 Long term (current) use of anticoagulants; Z87.891 Personal history of nicotine dependence
CPT/HCPCS: 71045; 80048; 83880; 84484; 85025; 85610; 93005; 96361; 96374; 99284; J7040; A4216

== ENCOUNTER → 2022-06-06 | Outpatient (CLI) | payer MEDICARE, SELFPAY | END | disposition home or self-care (01) | PROVIDERS: PCP Family Medicine; Visit Provider Internal Medicine Pulmonary Disease | DX: R05.9 Cough, unspecified (principal) | CPT/HCPCS: 87070; 87205 ==

== ENCOUNTER → 2022-09-23 | Outpatient (CLI) | payer MEDICARE, SELFPAY | END | disposition home or self-care (01) | PROVIDERS: PCP Family Medicine; Referring Provider Internal Medicine Pulmonary Disease; Visit Provider Internal Medicine Pulmonary Disease | DX: J44.9 Chronic obstructive pulmonary disease, unspecified (principal); R09.02 Hypoxemia; R06.00 Dyspnea, unspecified; R91.8 Other nonspecific abnormal finding of lung field | CPT/HCPCS: 87070; 87205 ==

== ENCOUNTER → 2022-10-20 | Outpatient (CLI) | payer MEDICARE, SELFPAY | END | disposition home or self-care (01) | LOC: LAB 13:54 | PROVIDERS: PCP Family Medicine; Referring Provider Internal Medicine Pulmonary Disease; Visit Provider Internal Medicine Pulmonary Disease | DX: J44.9 Chronic obstructive pulmonary disease, unspecified (principal) | CPT/HCPCS: 87015; 87070; 87077; 87116; 87186; 87205; 87206 ==

== ENCOUNTER → 2022-11-21 | Outpatient (CLI) | payer MEDICARE, SELFPAY ==
--- NOTE | 2022-11-21 13:52 | SP.MBSS_ITS ---
Modified Barium Swallow Patient Information Study Date: 11/21/22 Study Time: 13:00 Direct Billable Minutes: 90 Total Minutes procedure & reportin Diagnosis: J44.9 - COPD, K21.9 - GERD Referring Physician: Sylvester Donald V Reason for Referral: Objectively assess swallow function, risk for aspiration and to determine recommendations for LRD and compensatory strategies to improve safety of swallow. Medical History: Patient is a 82yo M referred by Dr. Donald for Modified Barium Swallow Study for concerns for chronic aspiration. Patient is accompanied by his daughter. Patient w/ PMHx re: COPD, Gerd. Patient reports occasional coughing w/ PO intake, reports some acid reflux after meals. Currently takes Tagamet for acid reflux (PRN) which patient reports he takes about once a week. Current Diet Ordered: Regular Textures/Thin Liquids Dentition: WNL and Upper Dentures Mental Status: WNL Respiratory Status: Oxygenating on Room Air Penetration-Aspiration Scale Penetration-Aspiration Scale: OBJECTIVE ASSESSMENT OF SWALLOW FUNCTION (QUANTITATIVE ? PER TRIAL): PENETRATION / ASPIRATION SCALE (BRUNER): 1 = does not enter airway 2 = enters airway/above vocal folds/ejected 3 = enters airway/above vocal folds/not ejected 4 = enters airway/contacts vocal folds/ejected 5 = enters airway/contacts vocal folds/not ejected 6 = enters airway/below vocal folds/ejected 7 = enters airway/below vocal folds/not ejected despite effort 8 = enters airway/below vocal folds/no effort VIDEOFLOROSCOPIC SCALE SCORE (BRUNER): Grade I = aspiration of material that has penetrated into the laryngeal vestibule, intact cough reflex Grade II = aspiration < 10 % of the bolus, intact cough reflex Grade III = aspiration of < 10 % of the bolus, reduced cough reflex or aspiration of > 10 % of the bolus, intact cough reflex Grade IV = aspiration of > 10 % of the bolus, reduced cough reflex Penetration-Aspiration Scale Score Thin Liquid via teaspoon: Result: 1= does not enter airway Thin Liquid via teaspoon Trial 2: Result: 1= does not enter airway Thin Liquid via single sip from cup : Result: 1= does not enter airway Thin Liquid via sequential sips from cup : Result: 1= does not enter airway [employer] Thick Liquid via single sip from cup : Result: 1= does not enter airway Honey Thick Liquid via single sip from cup : Result: 1= does not enter airway Pudding: Result: 1= does not enter airway Cookie: Result: 1= does not enter airway Thin Liquid via single sip from cup Trial 2: Result: 1= does not enter airway Oral Phase Labial Seal: No Labial Escape Tongue Control During Bolus Hold: Posterior escape of less than half of bolus Bolus Preparation/Mastication: Slow prolonged chewing/mashing with complete recollection Bolus Transport/Lingual Motion: Brisk tongue motion Oral Residue: Trace residue lining oral structures Pharyngeal Phase Initiation of Pharyngeal Swallow: Bolus head in valleculae Soft Palate Elevation: No bolus between soft palate and pharyngeal wall Laryngeal Elevation: Comp. Superior move thyroid cart w/comp. apprx arytenoid cart-epig pet Anterior Hyoid Excursion: Complete anterior movement Epiglottic Movement: Complete inversion Laryngeal Vestibule Closure at Height of Swallow: Complete; no air/contrast in laryngeal vestibule Pharyngeal Stripping Wave: Present - diminished Pharyngoesophageal Segment Opening: Complete distension and complete duration; no obstruction of flow Tongue Base Retraction: Wide column of contrast between tongue base & post. pharyngeal wall Pharyngeal Residue: Collection of residue within or on pharyngeal structures Esophageal Phase Esophageal Clearance: Esophageal retention w/ retrograde flow below pharyngoesophageal seg. Treatment Strategies Effects of treatment strategies attemped:: Liquid wash = somewhat effective w/ esophageal retention Diagnosis/Impression Diagnosis: Esophageal Dysphagia R13.14 Impression: No significant oral and pharyngeal deficits identified during MBSS. Patient demonstrates adequate airway closure w/ no penetration/aspiration observed throughout all PO trials. Esophageal retention w/ retrograde flow below the UES observed w/ HTL, pudding and cookie. Liquid wash somewhat improved esophageal retention. Patient is at high risk for reflux aspiration. Recommend GI referral. Recommendations Diet: Regular Textures and Thin Liquids Compensatory Strategies: Small Bites, Small Sips, Slow Rate, Multiple Swallows, Alternate bites/solids and sips/liquids, Sitting upright and Remain sitting upright for 30 minutes after PO intake Recommend Repeat Modified Barium Swallow: No Need for Skilled Speech Therapy Services: No Recommended Referrals: GI Consult (Communication left w/ Dr. Donald's office for GI referral ) Education Completed: 1. Described result of evaluation., 4. Family/caregivers understand evaluation & agree w/ goals & tx plan. and 6. Family/caregivers demonstrate recommended strategies. Status Active ST Patient: Active Contact Information [facility] Speech Therapy:: Zuleika Arellano M.A. [facility] [employer] [facility] Speech-Language Pathologist [facility] [address] [place] [address] [email or web address] [phone]
== END | disposition home or self-care (01) ==
LOC: RAD 12:52
PROVIDERS: PCP Family Medicine; Referring Provider Internal Medicine Pulmonary Disease; Visit Provider Internal Medicine Pulmonary Disease
DX: J84.10 Pulmonary fibrosis, unspecified (principal)
CPT/HCPCS: 74230; 92611

== ENCOUNTER → 2023-01-06 | Outpatient (CLI) | payer MEDICARE, SELFPAY | END | disposition home or self-care (01) | PROVIDERS: PCP Family Medicine; Referring Provider Internal Medicine Pulmonary Disease; Visit Provider Internal Medicine Pulmonary Disease | DX: J44.9 Chronic obstructive pulmonary disease, unspecified (principal) | CPT/HCPCS: 87070; 87205 ==

== ENCOUNTER 2023-03-29 09:41 | Inpatient (IN) | payer MEDICARE, SELFPAY ==
[2023-03-29] VITALS (8 sets, daily range): BP systolic 93–109; BP diastolic 56–78; PULSE 80–148; RESP 14–18; TEMP 36.2–37.2; O2SAT 91–99; BMI 27.7; BMI 26.1
--- NOTE | 2023-03-29 10:27 | EDS_ITS ---
HPI History of Present Illness Chief Complaint: Palpitations Informant: patient, family and EMS Narrative Narrative: 82-year-old male presenting to the emergency department chief complaint weakness. Patient has a very extensive recent medical history. Brief summary is that the patient has a longstanding history of atrial fibrillation and COPD. Last year the patient was on Coreg and started on digoxin later sotalol. He was seeing cardiology and then electrophysiology at [facility]. After hospitalization with A-fib with RVR and hypotension he was started on Tikosyn. Tikosyn gave him significant diarrhea. Reportedly in set up/evaluated for EP study/ablation. On March 23 of this year he went in for cardiac cryoablation. Postoperatively was complicated by hypotension and was found to have retroperitoneal bleed and then pneumonia. He was started on vancomycin changed to doxycycline. He was transfused and diuresed. He eventually he was evaluated by physical therapy and was felt that he was not a candidate for rehab. He was discharged home this past Thursday night. Family states his systolic blood pressures are typically in the 90s to 100. He restarted Tikosyn in the hospital due to recurrent A-fib. Diarrhea has returned. He notes lower abdominal pain. He is having difficulty at home with ADLs. He is requiring significant assistance by family to get dressed to get to the bathroom. He is having a lot of dry heaving whenever he exerts himself. Family was looking for a TCU bed here in [place]. No reported fevers. Patient continues to have poor appetite. He has not restarted his Eliquis. He continues on doxycycline. One of the family's biggest concerns is his dry heaving movement/dehydration and labs. Another big concern is potential need for rehab and care as he is really unable to care for himself at home currently. [facility] Medical History Abnormal stress test Atherosclerotic heart disease of [place] coronary artery without angina pectoris BPH (benign prostatic hyperplasia) COPD (chronic obstructive pulmonary disease) GERD (gastroesophageal reflux disease) Hyperlipidemia Obstructive sleep apnea Paroxysmal atrial fibrillation SVT (supraventricular tachycardia) Home Medications lorazepam 0.5 mg tablet 0.5 mg PO QHS anxiety 07/04/17 [History Last Taken 01/03/18 20:00] rosuvastatin 5 mg tablet (Crestor) 5 mg PO QDAY cholesterol 07/04/17 [History Last Taken 01/03/18] sertraline 50 mg tablet 50 mg PO DAILY 12/01/18 [History Last Taken Unknown] tiotropium bromide 2.5 mcg/actuation mist for inhalation (Spiriva Respimat) 2 inh inhalation QAM 04/11/20 [History Last Taken Unknown] budesonide-formoterol HFA 80 mcg-4.5 mcg/actuation aerosol inhaler (Symbicort) 2 puff inhalation BID 01/10/21 [History Last Taken Unknown] acetaminophen 500 mg tablet 500 mg PO Q4H PRN Pain 05/22/21 [History Last Taken Unknown] cholecalciferol (vitamin D3) 25 mcg (1,000 unit) tablet 25 mcg PO DAILY 05/22/21 [History Last Taken Unknown] cimetidine 200 mg tablet (Tagamet HB) 200 mg PO ONCE PRN reflux 05/22/21 [History Last Taken Unknown] guaifenesin 600 mg tablet, extended release 12 hr (Mucinex) 600 mg PO BID 05/22/21 [History Last Taken Unknown] mecobalamin (vitamin B12) 1,000 mcg chewable tablet 1,000 mcg PO DAILY 05/22/21 [History Last Taken Unknown] mometasone 200 mcg/actuation HFA aerosol inhaler (Asmanex HFA) 2 puff inhalation BID 05/22/21 [History Last Taken Unknown] tamsulosin 0.4 mg capsule (Flomax) 0.8 mg PO QHS BPH 05/22/21 [History Last Taken Unknown] tiotropium 2.5 mcg-olodaterol 2.5 mcg/actuation mist for inhalation (Stiolto Respimat) 2 puff inhalation DAILY 05/22/21 [History Last Taken Unknown] apixaban 5 mg tablet 5 mg PO BID 06/27/21 [History Last Taken Unknown] isosorbide mononitrate 30 mg tablet,extended release 24 hr 30 mg PO DAILY 06/27/21 [History Last Taken Unknown] metoprolol succinate 25 mg tablet,extended release 24 hr 25 mg PO DAILY 06/27/21 [History Last Taken Unknown] nitroglycerin 0.4 mg sublingual tablet 0.4 mg sublingual Q5M PRN 06/27/21 [History Last Taken Unknown] Allergy/AdvReac Type Severity Reaction Status Date / Time No Known Allergies Allergy Verified 01/31/22 15:05 Family History Mother , Age 64 from Emphysema COPD (chronic obstructive pulmonary disease) Blood disorder Surgical History History of ankle surgery History of appendectomy History of back surgery History of inguinal hernia repair History of left heart catheterization (05/27/21) History of tonsillectomy History of umbilical hernia repair Social History Smoking Status: Former smoker how long ago did patient quit smokin years ago alcohol intake: current alcohol intake frequency: holidays/special occasions only caffeine: Yes Type: coffee Number of servings: 2 ROS ROS ED ROS Narrative Generalized weakness lightheadedness Constitutional Constitutional ED: Reports chills; Denies fever(s) or weight loss Eyes Eyes: Denies change in vision or diplopia ENT ENT ED: Denies ear pain, rhinorrhea or sore throat Cardiovascular Cardiovascular: Reports palpitations and racing heartbeat; Denies chest pain or orthopnea Respiratory/Chest Respiratory/Chest: Reports cough, dyspnea and sputum; Denies orthopnea Gastrointestinal Gastrointestinal: Reports abdominal pain, diarrhea, nausea and other Details: Dry heaves ; Denies vomiting Genitourinary Genitourinary ED: Reports urinary frequency and other Details: Unsure if fully emptying his bladder ; Denies dysuria or hematuria Musculoskeletal Musculoskeletal: Reports back pain; Denies arthralgias or myalgias Integumentary Denies abscess or rash Neurologic Neurologic: Denies headache(s) or weakness Psychiatric Psychiatric: Denies anxiety, depression, suicidal ideation or suicidal thoughts Endocrine Endocrinology: Denies polydipsia, polyphagia or polyuria Allergic/Immunologic Allergic/Immunologic ED: Denies mouth swelling, tongue swelling or urticaria EXAM Physical Exam Narrative Exam Narrative: Patient appears generally frail. Const Vital Signs: 03/29/23 09:42 03/29/23 10:29 Temperature 97.1 F L Temperature Source Oral Pulse Rate 87 148 H Respiratory Rate 16 16 Blood Pressure 95/56 L 93/67 Blood Pressure Mean 69 75 Pulse Ox 92 97 Oxygen Delivery Method Room Air Positive well nourished and well developed General Appearance ED: well developed HEENT Reports normocephalic, head/scalp atraumatic and moist mucous membranes Eyes PERRL and EOMs intact bilaterally Neck no lymphadenopathy, supple and no JVD Resp normal respiratory effort and clear to auscultation bilaterally Cardio no murmurs Rate: tachycardic Rhythm: abnormal rhythm irregularly irregular GI GI Narrative: Mild tenderness to palpation. Slightly tympanitic to percussion Auscultation: normoactive bowel sounds Palpation: soft and guarding; Negative for rebound tenderness present Back/Spine no CVA tenderness Thoracic Spine / Upper Back: Negative for thoracic spinal tenderness Lumbar Spine / Lower Back: Negative for lumbar spinal tenderness Extremity normal to inspection General Extremety ED: Negative for edema General Extremity: Negative for edema Neuro oriented x3 and CN's II-XII intact bilaterally Sensorium / Orientation: alert Motor Exam: strength 5/5 throughout Psych mental status grossly normal Mood & Affect: Negative for depressed or tearful Skin no rashes or lesions noted and no wounds MDM MDM MDM Narrative Medical decision making narrative: Basic blood work obtained showed a white count of 12.9 hemoglobin of 9.8. INR 1.3 PTT 33.7. Creatinine 0.98. CO2 32. Electrolytes normal. Glucose 116. Total bilirubin elevated 2.20 with otherwise normal liver enzymes. I suspect this is due to the breakdown of the retroperitoneal hematoma. Troponin elevated 346 not unexpected due to the recent cryotherapy surgery. Urinalysis with no overt infection. CT of the chest demonstrates no pulmonary embolism. Significant underlying COPD changes. No definitive infiltrative findings. CT of the abdomen pelvis demonstrates retroperitoneal hematoma on the left. There is also some inflammation around the left colon. Per the family he had that on the CT at [place]. Questionable diverticulitis. I do question whether or not this is more related to the bleed. I spoke with hospitalist who will be down to evaluate the patient for admission. Family was updated satisfied. Patient's blood pressure remained stable for him and he has had about 2 episodes of atrial fibrillation that I have seen on the monitor which have spontaneously converted back to sinus. History & Record Review Discussion w/independent historian: EMS personnel, Patient and Family Additional record(s) reviewed:: Prior inpatient record, Prior ED visit and Prior labs Lab Data Attestation: I reviewed the patient's lab results. Labs: Laboratory Results - last 24 hr 03/29/23 03/29/23 09:45 11:22 WBC 12.9 H RBC 3.01 L Hgb 9.8 L Hct 29.3 L MCV 97.3 H MCH 32.6 H MCHC 33.4 RDW Std Deviation 52.9 H RDW Coeff of David 15.0 H Plt Count 284 MPV 9.3 Immature Gran % (Auto) 1.400 H Neut % (Auto) 78.0 H Lymph % (Auto) 7.1 L [place] % (Auto) 12.3 H Eos % (Auto) 0.7 Baso % (Auto) 0.5 Absolute Neuts (auto) 10.1 H Absolute Lymphs (auto) 0.92 Nucleated RBC % 0 Diff Path Review July foll PT 16.1 H INR 1.3 APTT 33.7 Sodium 138 Potassium 3.6 Chloride 99 Carbon Dioxide 32.0 Anion Gap 7 BUN 16 Creatinine 0.98 Estim Creat Clear Calc 58.83 Est GFR (MDRD) Af Amer 93 Est GFR (MDRD) Non-Af 77 BUN/Creatinine Ratio 16.2 Glucose 116 H Lactic Acid 1.1 Calcium 8.6 Magnesium 2.0 Total Bilirubin 2.20 H Direct Bilirubin 0.58 H AST 8 L ALT 12 L Alkaline Phosphatase 69 Troponin I High Sens 346 H* B-Natriuretic Peptide 55.4 Total Protein 6.4 Albumin 2.9 L Globulin 3.5 Lipase 11 L Urine Color Yellow Urine Clarity Clear Urine pH 5.0 Ur Specific [place] 1.015 Urine Protein 15 H Urine Glucose (UA) 1000 H Urine Ketones 15 H Urine Occult Blood 10 H Urine Nitrite Negative Urine Bilirubin Negative Urine Urobilinogen Normal Ur Leukocyte Esterase 25 H Urine RBC 0 SEEN Urine WBC 0 SEEN Ur Squamous Epith Cells 0 SEEN Urine Bacteria 0 SEEN Urine Mucus 0 SEEN Radiography Diagnostic Testing: Clinical Impression(s) from Imaging Studies Abdomen/Pelvis CT 03/29/23 11:35 IMPRESSION: 1. Mild inflammatory changes along the left colon suggestive of diffuse diverticulitis without abscess or perforation. 2. Left retroperitoneal hemorrhage as described. Electronically Signed: Valente Lara MD at 12:19 EST , Chest CTA 03/29/23 11:35 IMPRESSION: 1. No evidence of acute pulmonary embolism. 2. Pulmonary emphysema. 3. Bibasilar interstitial thickening which may represent acute or chronic inflammatory change Electronically Signed: Valente Lara MD at 12:22 EST , EKG Initial EKG: Attestation: I personally reviewed and interpreted this EKG as follows: Comments: Sinus rhythm with sinus arrhythmia ventricular rate of 90 bpm Management Discussion w/another healthcare provider: Hospitalist Discharge Plan Dx/Rx/DC Orders Clinical Impression: Atherosclerotic heart disease of [place] coronary artery without angina pectoris, Paroxysmal atrial fibrillation, Retroperitoneal hematoma, ABLA (acute blood loss anemia), COPD (chronic obstructive pulmonary disease) Disposition Disposition: Acute Care Hospital [facility]
--- NOTE | 2023-03-29 10:35 | EKG12_ITS ---
Test Reason : PALPITATIONS Blood Pressure : / mmHG Vent. Rate : 090 BPM Atrial Rate : 090 BPM P-R Int : 178 ms QRS Dur : 088 ms QT Int : 378 ms P-R-T Axes : 047 -39 039 degrees QTc Int : 462 ms Sinus rhythm with marked sinus arrhythmia with occasional Premature ventricular complexes Left axis deviation Abnormal ECG Confirmed by TOMÁS DEAN, DORINA ([id number]), technical writer and editor CAREN ROCHA ([id number]) on 03/30/2023 9:36:25 AM Referred By: Confirmed By:DORINA ENGLAND MD
[2023-03-29 10:54] LABS: Absolute Lymphocyte Count 0.92 X10^3/uL (0.83-4.51); Absolute Neutrophil Count 10.1 X10^3/uL (2.0-7.7); Basophil# 0.06 X10^3/uL; Basophil% 0.5 % (0-1); Eosinophil# 0.09 X10^3/uL; Eosinophils% 0.7 % (0-5); Hematocrit 29.3 % (40-54); Hemoglobin 9.8 g/dL (13.0-16.5); Lymphocyte # 0.92 X10^3/ul (0.83-4.51); Lymphocyte % 7.1 % (19-41); Mean Corp Hgb Conc 33.4 g/dL (32-36); Mean Corpuscular Hgb 32.6 pg (27.0-32.0); Mean Corpuscular Volume 97.3 fL (80-94); Mean Platelet Vol. 9.3 fl (6.2-12.0); Monocyte# 1.59 X10^3/uL; Monocyte% 12.3 % (0-10); NRBC Flagged by Analyzer 0 % (0-5); Neutrophil # 10.07 X10^3/uL (2.7-7.7); POSITIVE DIFFERENTIAL YES; Platelet Count 284 K/mm3 (150-450); RBC Distribution Width SD 52.9 fl (35.1-43.9); Red Blood Count 3.01 M/mm3 (4.6-6.2); White Blood Count 12.9 K/mm3 (4.4-11.0)
[2023-03-29 10:56] LABS: Differential Indicated SCAN CRITERIA MET
[2023-03-29 11:01] LABS: International Normalized Ratio 1.3; Partial Thromboplast Time 33.7 Seconds (24.1-36.2); Prothrombin Time (Protime)PT. 16.1 SECONDS (11.7-14.9)
[2023-03-29 11:07] LABS: Lactic Acid 1.1 mmol/L (0.4-1.9)
[2023-03-29 11:12] LABS: AST(SGOT) 8 U/L (15-37); Alanine Aminotransfer ALT/SGPT 12 U/L (16-61); Albumin, Serum 2.9 g/dL (3.2-5.0); Alkaline Phosphatase 69 U/L (45-117); Anion Gap 7 (5-15); BNP,B-Type NATRIURETIC PEPTIDE 55.4 pg/mL (0-100); BUN 16 mg/dL (7-18); BUN/Creat Ratio 16.2 RATIO (10-20); Bilirubin, Direct 0.58 mg/dL (0.00-0.30); Calcium,Total 8.6 mg/dL (8.5-10.1); Chloride 99 mmol/L (98-107); Creatinine, Serum 0.98 mg/dL (0.70-1.30); EST Glomerular Filtration Rate 77 mL/min (>60); Est Glom Filt Rate - Afr Amer 93 mL/min (>60); Estimated Creatinine Clearance 58.83 ml/min; Globulin 3.5 g/dL (2.2-4.2); Glucose 116 mg/dL (74-106); Lipase 11 U/L (13-75); Potassium 3.6 mmol/L (3.5-5.1); Protein, Total 6.4 g/dL (6.4-8.2); Sodium Level 138 mmol/L (136-145); Troponin-I HS 346 pg/mL (3.0-78.0)
[2023-03-29 11:28] LABS: Bacteria 0 SEEN /hpf (None Seen); Mucous, Urine 0 SEEN /hpf (<or=2+); Red Blood Cells-Urine 0 SEEN /hpf (0-5); Squamous Epithelial Cells - UA 0 SEEN /hpf (0-5); White Blood Cells 0 SEEN /hpf (0-5)
[2023-03-29 11:29] LABS: Color, Urine Yellow (Yellow); Glucose, Dipstick 1000 mg/dl (Normal); Ketone-Dipstick 15 mg/dl (Negative); Leukocyte Esterase-Dipstick 25 /ul (Negative); Nitrite-Dipstick Negative (Negative); Occult Blood-Urine 10 /ul (Negative); Protein-Dipstick 15 mg/dl (Negative); Specific Gravity, Urine 1.015 (1.002-1.030); Urine Bilirubin Dipstick Negative (Negative); Urine Clarity Clear (Clear); Urine Urobilinogen Normal (Normal)
--- NOTE | 2023-03-29 11:35 | CT_ITS ---
EXAM: CT ANGIOGRAPHY CHEST WITHOUT AND WITH INTRAVENOUS CONTRAST CLINICAL INDICATION: pulmonary embolism TECHNIQUE: Helically acquired angiography images were obtained of the chest without and with intravenous contrast. This CT exam was performed using one or more of the following dose reduction techniques: automated exposure control, adjustment of the mA and/or kV according to patient size, and/or use of iterative reconstruction technique. MIP reconstructed images were created and reviewed. CONTRAST: IV 100mL [id number] COMPARISON: CT chest 05/07/2020 FINDINGS: PULMONARY ARTERIES: Normal. Normal in caliber. No evidence of pulmonary embolism. AORTA: Normal. Normal in caliber. No evidence of dissection. GREAT VESSELS OF AORTIC ARCH: Normal. Normal in caliber. No evidence of dissection. LUNGS AND PLEURAL SPACES: Diffuse centrilobular emphysematous changes of the lungs again noted predominantly involving the left lower lobe. Mild interstitial thickening of the lower lobes of the lung may represent acute or chronic inflammatory change. No mass. No pleural effusion or thickening. No pneumothorax. HEART: Normal. Heart size is normal. No pericardial effusion. No significant coronary artery calcifications. MEDIASTINUM: Small hiatal hernia. No mediastinal or hilar adenopathy. Esophagus is unremarkable. BONES/JOINTS: Normal. No suspicious lytic or blastic abnormality. CT/CTA Chest W/WO Contrast IMPRESSION: 1. No evidence of acute pulmonary embolism. 2. Pulmonary emphysema. 3. Bibasilar interstitial thickening which may represent acute or chronic inflammatory change Electronically Signed: Valente Lara MD at 12:22 EST ,
--- NOTE | 2023-03-29 11:35 | CT_ITS ---
EXAM: CT ABDOMEN AND PELVIS WITH INTRAVENOUS CONTRAST CLINICAL INDICATION: Retroperitoneal hematoma abdominal pain TECHNIQUE: Helically acquired images were obtained of the abdomen and pelvis with intravenous contrast. This CT exam was performed using one or more of the following dose reduction techniques: automated exposure control, adjustment of the mA and/or kV according to patient size, and/or use of iterative reconstruction technique. CONTRAST: IV 100mL Isovue-370 COMPARISON: No relevant prior studies available. FINDINGS: LOWER THORAX: Emphysematous changes of the lungs. ABDOMEN: LIVER: Normal. Homogeneous. No focal mass. PANCREAS: Normal. No focal cystic or solid mass. SPLEEN: Normal. Normal size without focal cystic or solid mass. ADRENALS: Normal. No nodules. KIDNEYS AND URETERS: Normal. Normal renal size and position. No hydronephrosis. STOMACH AND BOWEL: Fat stranding noted along the descending and proximal sigmoid colon associated with diffuse diverticulosis of the colon suggestive of diverticulitis. No evidence of abscess or infiltration. PELVIS: APPENDIX: No evidence of acute appendicitis. BLADDER: Normal. REPRODUCTIVE: Unremarkable as visualized. No mass. ABDOMEN and PELVIS: INTRAPERITONEAL SPACE: Normal. No ascites or other fluid collection. No free air. RETROPERITONEAL SPACE: Diffuse retroperitoneal hematoma noted involving the left posterior pararenal space and extending along the left iliopsoas muscle complex and left iliac region measuring 3 cm in widest dimension and extending over 20 cm cephalocaudad dimension. BONES/JOINTS: No suspicious lytic or blastic abnormality. SOFT TISSUES: The fat-containing left inguinal hernia. VASCULATURE: Normal. Abdominal aorta is non-dilated. LYMPH NODES: Normal. No enlarged lymph nodes. CT/Abdomen/Pelvis W IV Cont ONLY IMPRESSION: 1. Mild inflammatory changes along the left colon suggestive of diffuse diverticulitis without abscess or perforation. 2. Left retroperitoneal hemorrhage as described. Electronically Signed: Valente Lara MD at 12:19 EST ,
[2023-03-29] MEDS: 0.9% Normal Saline (500mL Bag) 500 ML 999 ML IV (12:22)
--- NOTE | 2023-03-29 13:08 | PCM.HP.STD ---
HPI - General General Date of Admission: 03/29/23 Date of Service: 03/29/23 Chief Complaint: Debility, weakness, L sided abdominal discomfort, ongoing diarrhea. HPI Narrative The patient is an 82 y/o M w/ PMHx: HFrEF, JORGE, Anxiety and Depression, HTN, HLD, CAD, BPH, COPD/Pulmonary fibrosis, Hx SVT, Sinus node dysfunction worse with AV dennis blocking agents, PAF complicated by history of hypertension associate with regimen eventually transition to Tikosyn however this was associated with significant diarrhea therefore he was referred to electrophysiology at [place] for EP study/ablation with cryoablation 03/23/2023 with postoperative course unfortunately complicated by recurrent hypotension and noted retroperitoneal bleed with associated acute blood loss anemia eventually stabilizing as well as concerns for pneumonia placed on initially IV BSA transition eventually to oral doxycycline with PRBC transfusion as well as diuresis with eventual restart of Tikosyn secondary to recurrent bouts of atrial fibrillation with RVR with unfortunately again recurrent diarrhea similar to his previous with ongoing BP with commonly systolics in the 90s with PT/OT assessments with decision for skilled placement needs with plan transition to TCU however per family report there was no bed available until Thursday therefore for unclear reasons patient was discharged to home however he he cannot function safely at home and since has had recurrent ongoing persistent diarrhea he notes lower abdominal discomfort as well as left-sided discomfort with occasional nausea and dry heaving when he exerts himself with no recent fevers or chills but poor appetite prompting eventual ED evaluation. Per family report he was not supposed to start any antiplatelet or anticoagulant therapy until his hemoglobin was reportedly at 10 but there was no clear follow-up indicated. He does report that he is continue doxycycline for what was reported as a hospital-acquired pneumonia. From review of records 06/27/2021 cardiology visit patient also had an unfortunate large hematoma following a heart cath of note. Patient does report left-sided abdominal discomfort, worse with palpation with decreased oral intake per family report. From records 05/27/2021 there was unsuccessful PTCA of D1 as they could not cross the lesion with a wire with decision for medical management. From review of clinic [facility] records w/ last noted 03/27/2023 cardiology EP note reporting PAF status post ablative therapies with reported occasional breakthrough episodes of nonsustained atrial tachycardia with recommended continue monitoring, report of possibly planned restart Eliquis March 30 with plan repeat labs 3 to 4 days afterwards to continue assessing hemoglobin, retroperitoneal bleed, and that bleeding had stabilized with hemoglobin at that time 9.1, treatment of acute on chronic HFrEF with diuresis performed, ongoing ileus with GI also consulted during that presentation, reportedly pneumonia with patient improvement with mild cough otherwise no acute findings. Patient per record had required pressor support and fluids as well as transfusions maintained in the CCU and evaluated by vascular for the left retroperitoneal hemorrhage. From the notes from their facility the patient was adamant that he did not want to go to skilled facilities. They also reported that if onset of diarrhea they may need to again discontinue Tikosyn and consider a different antiarrhythmic agent. Workup in the ED included T97.1, heart rate initially 87 however patient intermittently in atrial fibrillation with RVR with rate going up to 148 however quickly comes out of it, BP 95/56, respiratory rate 16, 92% on room air, CBC with WBC 12.9, hemoglobin 9.8, MCV 97.3, platelet 284 with increased immature granulocytes and left shift, coags with PT 16.1 otherwise not marked appearing, CMP with glucose 116, magnesium 2.0, T. bili 2.20, T. bili 0.58, AST/ALT 8/12, troponin 346, BNP 55.4, lipase 11, urinalysis with specific gravity 1.015, protein 15, glucose 1000, ketone 15, occult blood 10, leukocyte esterase 25 otherwise no marked evidence of UTI, rapid SARS COVID/flu/RSV PCR negative, CT abdomen and pelvis with IV contrast with mild inflammatory changes along the left colon suggestive of diffuse diverticulitis without any abscess or perforation with a large left retroperitoneal hemorrhage stable in appearance, CTPA with no evidence of pulmonary embolism, notable pulmonary emphysema, bibasilar interstitial thickening possibly acute or chronic inflammatory change, EKG initially sinus rhythm with no acute evidence of ischemia however while in the ED patient with intermittent atrial fibrillation with RVR with quick conversion to sinus rhythm. Family was encouraged to return to [place] however they were very dissatisfied with the care at their facility and declined any consideration of transfer. They very strongly requested admission for transition to TCU when bed open. [facility] Medical History (Updated 03/29/23 @ 14:[address] Marilee Yeager MD) Atherosclerotic heart disease of nikolai coronary artery without angina pectoris BPH (benign prostatic hyperplasia) Chronic diarrhea COPD (chronic obstructive pulmonary disease) GERD (gastroesophageal reflux disease) HFrEF (heart failure with reduced ejection fraction) Hyperlipidemia Obstructive sleep apnea Paroxysmal atrial fibrillation Pulmonary fibrosis Retroperitoneal hematoma Sinus node dysfunction SVT (supraventricular tachycardia) Home Medications lorazepam 0.5 mg tablet 0.5 mg PO QHS anxiety 07/04/17 [History Last Taken 01/03/18 20:00] rosuvastatin 5 mg tablet (Crestor) 5 mg PO QDAY cholesterol 07/04/17 [History Last Taken 01/03/18] sertraline 50 mg tablet 50 mg PO DAILY 12/01/18 [History Last Taken Unknown] tiotropium bromide 2.5 mcg/actuation mist for inhalation (Spiriva Respimat) 2 inh inhalation QAM 04/11/20 [History Last Taken Unknown] budesonide-formoterol HFA 80 mcg-4.5 mcg/actuation aerosol inhaler (Symbicort) 2 puff inhalation BID 01/10/21 [History Last Taken Unknown] acetaminophen 500 mg tablet 500 mg PO Q4H PRN Pain 05/22/21 [History Last Taken Unknown] cholecalciferol (vitamin D3) 25 mcg (1,000 unit) tablet 25 mcg PO DAILY 05/22/21 [History Last Taken Unknown] cimetidine 200 mg tablet (Tagamet HB) 200 mg PO ONCE PRN reflux 05/22/21 [History Last Taken Unknown] guaifenesin 600 mg tablet, extended release 12 hr (Mucinex) 600 mg PO BID 05/22/21 [History Last Taken Unknown] mecobalamin (vitamin B12) 1,000 mcg chewable tablet 1,000 mcg PO DAILY 05/22/21 [History Last Taken Unknown] mometasone 200 mcg/actuation HFA aerosol inhaler (Asmanex HFA) 2 puff inhalation BID 05/22/21 [History Last Taken Unknown] tamsulosin 0.4 mg capsule (Flomax) 0.8 mg PO QHS BPH 05/22/21 [History Last Taken Unknown] tiotropium 2.5 mcg-olodaterol 2.5 mcg/actuation mist for inhalation (Stiolto Respimat) 2 puff inhalation DAILY 05/22/21 [History Last Taken Unknown] apixaban 5 mg tablet 5 mg PO BID 06/27/21 [History Last Taken Unknown] isosorbide mononitrate 30 mg tablet,extended release 24 hr 30 mg PO DAILY 06/27/21 [History Last Taken Unknown] metoprolol succinate 25 mg tablet,extended release 24 hr 25 mg PO DAILY 06/27/21 [History Last Taken Unknown] nitroglycerin 0.4 mg sublingual tablet 0.4 mg sublingual Q5M PRN CP 06/27/21 [History Last Taken Unknown] bumetanide 1 mg tablet mg 03/29/23 [History Last Taken Unknown] dofetilide 250 mcg capsule mcg 03/29/23 [History Last Taken Unknown] doxycycline hyclate 100 mg capsule mg 03/29/23 [History Last Taken Unknown] duloxetine 60 mg capsule,delayed release mg PO 03/29/23 [History Last Taken Unknown] empagliflozin 25 mg tablet (Jardiance) 12.5 mg PO DAILY 03/29/23 [History Last Taken Unknown] finasteride 5 mg tablet mg 03/29/23 [History Last Taken Unknown] levalbuterol HCl 0.63 mg/3 mL solution for nebulization mg inhalation 03/29/23 [History Last Taken Unknown] midodrine 5 mg tablet mg 03/29/23 [History Last Taken Unknown] pantoprazole 40 mg tablet,delayed release mg PO 03/29/23 [History Last Taken Unknown] potassium chloride 20 mEq tablet,extended release meq PO 03/29/23 [History Last Taken Unknown] Allergy/AdvReac Type Severity Reaction Status Date / Time No Known Allergies Allergy Verified 01/31/22 15:05 Family History Mother , Age 64 from Emphysema COPD (chronic obstructive pulmonary disease) Blood disorder Father No problems noted. Surgical History History of ankle surgery History of appendectomy History of back surgery History of inguinal hernia repair History of left heart catheterization (05/27/21) History of tonsillectomy History of umbilical hernia repair S/P ablation of atrial fibrillation Social History (Updated 03/29/23 @ 14:[address] Marilee Yeager MD) household members: spouse Smoking Status: Former smoker how long ago did patient quit smokin years ago alcohol intake: current alcohol intake frequency: holidays/special occasions only substance use type: does not use caffeine: Yes Type: coffee Number of servings: 2 ROS ROS Narrative Admission Review of Systems: CONSTITUTIONAL: No weight loss, fever, chills, + weakness or fatigue. HEENT: Eyes: No visual loss, blurred vision, double vision or yellow sclerae. Ears, Nose, Throat: No hearing loss, sneezing, congestion, runny nose or sore throat. SKIN: No rash or itching, lesions, wounds. CARDIOVASCULAR:+ Edema, improved, intermittent racing heart/palpitations not marked symptomatic. No chest pain, chest pressure or chest discomfort, orthopnea, syncopal events. RESPIRATORY: + Productive cough. No shortness of breath, wheezing, hemoptysis. GASTROINTESTINAL: + anorexia, occasional nausea with dry heaving, L sided abdominal discomfort, diarrhea, no overt vomiting. No melena, BRBPR. GENITOURINARY: No dysuria, frequency, urgency or retention. NEUROLOGICAL: No headache, dizziness, syncope, paralysis, ataxia, numbness or tingling in the extremities, focal weakness, change in bowel or bladder control, seizure. MUSCULOSKELETAL: + muscle, back pain, joint pain or stiffness. HEMATOLOGIC: + anemia, easy bleeding/bruising. LYMPHATICS: No enlarged nodes. No history of splenectomy. PSYCHIATRIC: + History of anxiety and depression. ENDOCRINOLOGIC: No reports of sweating, cold or heat intolerance. No polyuria or polydipsia. ALLERGIES: No history of asthma, hives, eczema or rhinitis. Vital Signs Vital Signs Vital Signs: 03/29/23 09:42 03/29/23 10:29 Temperature 97.1 F L Temperature Source Oral Pulse Rate 87 148 H Respiratory Rate 16 16 Blood Pressure 95/56 L 93/67 Blood Pressure Mean 69 75 Pulse Ox 92 97 Oxygen Delivery Method Room Air Weight Weight: 182 lb 5.156 oz Body Mass Index (BMI) 27.7 Physical Exam Narrative Physical Examination: General: Awake, alert, oriented to self, place and recent events, patient is fatigued and was initially sleeping prior to evaluation, remains cooperative, seated upright in the ED bed, does report discomfort to the abdomen primary with palpation of the left side. Skin: Normal color, normal turgor, no icterus, no cyanosis except for staged ecchymoses likely secondary to recent lab draws. HEENT: AT/NC, EOMI, PERRLA, moderately dry MM, no carotid bruits or JVD noted. Lungs: Mildly diminished, greater bases, appropriate effort, no evidence of any distress, no rales, ronchi or wheezing. Heart: Currently regular rate and rhythm; no gallop, rub audible. Abdomen: Soft, discomfort to bilateral lower quadrants however left greater than right, mild voluntary guarding, no overt marked distention, hyperactive BS, no appreciated HSM. Extremities: No cyanosis, clubbing, or marked edema which family notes is improved significantly since recent admission. Neurological: Patient awake, alert, oriented as noted, cognitive function intact; pupils equally reactive to light and accommodation, cranial nerves grossly normal, moving all 4 extremities, no focal deficits, strength moderately to severely globally decreased secondary to acute complaints and recent prolonged admission with significant hospital events Psychiatric: Affect appears flat, fatigued, no acute evidence of depressive or anxiety feelings but does have underlying history. Results Lab / Micro Data 03/29/23 09:45 03/29/23 09:45 Labs: Laboratory Results - last 24 hr 03/29/23 09:45: WBC 12.9 H, RBC 3.01 L, Hgb 9.8 L, Hct 29.3 L, MCV 97.3 H, MCH 32.6 H, MCHC 33.4, RDW Std Deviation 52.9 H, RDW Coeff of David 15.0 H, Plt Count 284, MPV 9.3, Immature Gran % (Auto) 1.400 H, Neut % (Auto) 78.0 H, Lymph % (Auto) 7.1 L, [place] % (Auto) 12.3 H, Eos % (Auto) 0.7, Baso % (Auto) 0.5, Absolute Neuts (auto) 10.1 H, Absolute Lymphs (auto) 0.92, Nucleated RBC % 0, Diff Path Review July foll, PT 16.1 H, INR 1.3, APTT 33.7, Sodium 138, Potassium 3.6, Chloride 99, Carbon Dioxide 32.0, Anion Gap 7, BUN 16, Creatinine 0.98, Estim Creat Clear Calc 58.83, Est GFR (MDRD) Af Amer 93, Est GFR (MDRD) Non-Af 77, BUN/Creatinine Ratio 16.2, Glucose 116 H, Lactic Acid 1.1, Calcium 8.6, Magnesium 2.0, Total Bilirubin 2.20 H, Direct Bilirubin 0.58 H, AST 8 L, ALT 12 L, Alkaline Phosphatase 69, Troponin I High Sens 346 H*, B-Natriuretic Peptide 55.4, Total Protein 6.4, Albumin 2.9 L, Globulin 3.5, Lipase 11 L 03/29/23 11:22: Urine Color Yellow, Urine Clarity Clear, Urine pH 5.0, Ur Specific [place] 1.015, Urine Protein 15 H, Urine Glucose (UA) 1000 H, Urine Ketones 15 H, Urine Occult Blood 10 H, Urine Nitrite Negative, Urine Bilirubin Negative, Urine Urobilinogen Normal, Ur Leukocyte Esterase 25 H, Urine RBC 0 SEEN, Urine WBC 0 SEEN, Ur Squamous Epith Cells 0 SEEN, Urine Bacteria 0 SEEN, Urine Mucus 0 SEEN Micro: Microbiology 03/29/23 10:42 Mucosa - Nose SARS-CoV-2, Influenza & RSV (PCR) - Final Imagaing Radiology Impression Abdomen/Pelvis CT 03/29/23 11:35 IMPRESSION: 1. Mild inflammatory changes along the left colon suggestive of diffuse diverticulitis without abscess or perforation. 2. Left retroperitoneal hemorrhage as described. Electronically Signed: Valente Lara MD at 12:19 EST , Chest CTA 03/29/23 11:35 IMPRESSION: 1. No evidence of acute pulmonary embolism. 2. Pulmonary emphysema. 3. Bibasilar interstitial thickening which may represent acute or chronic inflammatory change Electronically Signed: Valente Lara MD at 12:22 EST , Assessment & Plan Assessment/Plan (1) Paroxysmal atrial fibrillation: PLAN: Plan The patient is an 82 y/o M w/ PMHx: HFrEF, JORGE, Anxiety and Depression, HTN, HLD, CAD, BPH, COPD/Pulmonary fibrosis, Hx SVT, Sinus node dysfunction worse with AV dennis blocking agents, PAF complicated by history of hypertension associate with regimen eventually transition to Tikosyn however this was associated with significant diarrhea therefore he was referred to electrophysiology at [place] for EP study/ablation with cryoablation 03/23/2023 with postoperative course unfortunately complicated by recurrent hypotension and noted retroperitoneal bleed with associated acute blood loss anemia eventually stabilizing as well as concerns for pneumonia placed on initially IV BSA transition eventually to oral doxycycline with PRBC transfusion as well as diuresis with eventual restart of Tikosyn secondary to recurrent bouts of atrial fibrillation with RVR with unfortunately again recurrent diarrhea similar to his previous with ongoing BP with commonly systolics in the 90s with PT/OT assessments with decision for skilled placement needs with plan transition to TCU however per family report there was no bed available until Thursday therefore he was discharged to home and now presents to the [facility] ED on 03/29/23 with debility and request for placement as well as evaluation for abdominal discomfort. #1. Paroxsymal atrial fibrillation w/ RVR: Patient with recurrent atrial fibrillation with RVR, known to Cardiology, recent admission with EP and ablation but still intermittent episodes, restarted on tikosyn but onset again of diarrhea potentially related, will need to consider Cardiology consultation, LVEF 45%, moderate LAE reported in [place] records, reported also to have failed multiple antiarrhythmic agents including sotalol (bradycardia, hypotension), ranolazine (hypotension), tikosyn (inadequate suppression) with restart on also BB despite low BB with concern started midodrine, will maintain on telemetry, obtain cardiac enzyme serial set to be cautious especially given elevated however patient did have recent cryo ablation therapy thus suspect this is etiology, magnesium level normal per ED, recent echo reported at [place] thus we will defer repeat. Holding anticoagulant therapy as hemoglobin not greater than 10 with recent left retroperitoneal bleed. If necessary may re-involve cardiology but intermittent episodes of PAF with RVR were noted per cardiology even at [place] discharge. Will prioritize metoprolol and hold diuresis if necessary but avoid hydration and encourage oral appropriate intake. #2. ? Acute Diverticulitis versus inflammatory change secondary to literal location of the peritoneal hematoma against the bowel: To be cautious will only judiciously hydrate given recent reported HFrEF exacerbation, will monitor I&Os, allow clears and ADAT, treat with IV zosyn regimen but obtain procalcitonin as still uncertain of acute infectious process, maintain on PPI, anti-emetics, pain regimen PRN. Will obtain cdiff and enteric to be cautious but appears was also done in February and negative at that time but from records diarrhea only now again more persistent after Tikosyn restart. #3. Recent questionable hospital-acquired pneumonia: Given CTPA with no marked finding suspect possibly atelectatic cause for findings and decision to treat as a hospital-acquired but from records based on chest x-ray imaging 03/24/2023 chest x-ray with report of worsening bilateral bibasilar infiltrate, small bilateral pleural effusions concerning for pneumonia but was likely overload with his HF exacerbation from records review, patient had been on BSA but was transition to doxycycline, at this point there is also no mention of any sputum cultures or urine antigens. Will de-escalate off of doxycycline given concern for possibly diverticulitis but again this could be related to the peritoneal hematoma and potentially irritation but unsure. To be cautious although CT imaging here at [facility] and that at [place] of at least bases did not reveal PNA, given sputum production will obtain sputum Cx if produces, urine antigens. #4. Recent Acute Retroperitoneal Bleed following intervention w/ ABLA associated: Recent noted [facility] CBC with WBC 9.6, hemoglobin 9.1, MCV 94, platelet 241 with mild left shift noted, 03/24/2023 CT angio for GI bleed with study positive for left retroperitoneal hemorrhage extending into the left pelvic extraperitoneal space with no contrast extravasation to indicate any active hemorrhage at that time with diverticulosis without any diverticulitis with small bilateral pleural effusions with minimal adjacent atelectasis reported with size 7.5 x 5.2 cm at that time. Vascular surgery evaluation with recommended continued close monitoring. Will continue to hold anticoagulation and antiplt. Continue to trend CBC. Treated ? #2. #5. Elevated cardiac enzyme with as noted intermittent episodes of atrial fibrillation with RVR however patient did have recent cryoablation therapy suspected as etiology: EKG in ED with initially sinus rhythm with no acute evidence of ischemia, CTA chest with no evidence of pulmonary emboli or acute concerns and no evidence of any pneumonia, initial trop 346 with no comparison obtained at [place] as likely it would have been elevated with recent cardiac intervention. Will place on a monitored bed to assure no acute myocardial infarction with serial cardiac enzymes and EKGs. Given retroperitoneal bleed recently we will hold on aspirin therapy or any consideration of resumption of Eliquis but will continue to trend cardiac enzymes. #6. HFrEF with Recent Exacerbation: Noted during [place] admission, LVEF 45%, moderate LAE reported in [place] records, CXR with overload, diuresed with low BPs as noted with concurrent ABLA/PRBC administration component, will diurese as BP allows but will avoid IVFs at this point unless needed and prioritize BB given ongoing bouts PAF with RVR as noted with administration of Bumex as able but in the ED significantly low normal BP would preclude this, holding antiplt and anticoagulant given ABLA/retroperitoneal bleed recently and add back once appropriate, continue statin. Continue on midodrine regimen. #7. Hyperbilirubinemia with normal LFTs: Given recent notable acute retroperitoneal bleed with acute blood loss anemia which is now stabilized suspect this is etiology, admission CMP with T. bili 2.20, T. bili 0.58, AST/LT 10/25, continue to trend CMP. #8. Chronic COPD/pulmonary fibrosis: Will maintain on oxygen with wean as tolerated to room air, continue ATC budesonide, PRN Xopenex which patient's family will bring from home to use given significant PAF with RVR history and not available at [facility] pharmacy, HOB, IS parameters. #9. CAD: Most recently noted 05/27/2021 there was unsuccessful PTCA of D1 as they could not cross the lesion with a wire with decision for medical management, holding antiplt and anticoagulation given recent ABLA with retroperitoneal bleed as noted, continue metoprolol as able pending BP trending, not on ACEI/ARB, continue statin. #10. Hyperlipidemia we will continue patient on statin therapy. #11. Anxiety and depression: We will continue patient low-dose nightly lorazepam as well as home sertraline. Needs clarification as patient is also listed potentially being on home regimen of duloxetine as well and use of these 2 agents together would not be appropriate. #12. BPH: We will continue patient Flomax home regimen. #13. JORGE: CPAP nightly. #14. DVT Prophylaxis: SCDs. #15. CODE status: Patient TAI is his daughter who is present and living will is currently in place. Discussed CODE status at length including difference between FULL code, DNR-CCA and DNR-CC status. Following discussions about the differences in these status, requested Full Code status. Discussed his prognosis should an cardiopulmonary event occur with both him and his family. Advanced Care Planning Face to Face Time: 16 minutes. Charges/Coding Visit Charges Inpatient E&M: 26429 Init Hosp L3 Procedures Hospitalists Procedures: 40538 Advncd Care Plan 30 Min
[2023-03-29 15:39] LABS: BNP,B-Type NATRIURETIC PEPTIDE 62.2 pg/mL (0-100)
[2023-03-29 15:45] LABS: Troponin-I HS 311 pg/mL (3.0-78.0)
[2023-03-29 15:50] LABS: Procalcitonin 0.13 ng/mL (0.00-0.09)
[2023-03-29] MEDS: Piperacil/Tazobactam 3.375 GM in 0.9% Normal Saline (50mL MB+) 50 ML IV ×2 (16:28→20:52)
[2023-03-29 17:21] LABS: Troponin-I HS 289 pg/mL (3.0-78.0)
[2023-03-29] MEDS: Midodrine HCl 5 MG Tablet PO (17:37)
[2023-03-29] MEDS: Acetaminophen 325 MG Tablet 650 MG PO (18:37)
[2023-03-29] MEDS: Budesonide Respules 0.5 MG/2 ML AMPUL.NEB. INHALATION (20:43)
[2023-03-29] MEDS: levalbuterol HCL 0.63 MG/3 ML VIAL.NEB 0.630000000000000004 MG INHALATION (20:44)
[2023-03-29] MEDS: guaiFENesin 600 MG Tablet PO (20:52)
[2023-03-29] MEDS: Atorvastatin Calcium 10 MG Tablet PO (20:53)
[2023-03-29] MEDS: Pantoprazole Sodium 20 MG Tablet PO (20:53)
[2023-03-29] MEDS: Dofetilide 250 MCG Capsule PO (20:53)
[2023-03-29] MEDS: Tamsulosin HCl 0.4 MG Capsule 0.800000000000000044 MG PO (20:53)
[2023-03-29 21:08] LABS: Troponin-I HS 283 pg/mL (3.0-78.0)
[2023-03-29] MEDS: LORazepam 0.5 MG Tablet PO (23:07)
[2023-03-30] VITALS (12 sets, daily range): BP systolic 89–107; BP diastolic 61–70; PULSE 84–93; RESP 16–18; TEMP 36.6–37.3; O2SAT 92–95; BMI 27.1
[2023-03-30] MEDS: Acetaminophen 325 MG Tablet 650 MG PO ×2 (03:33→09:41)
[2023-03-30] MEDS: Piperacil/Tazobactam 3.375 GM in 0.9% Normal Saline (50mL MB+) 50 ML IV ×3 (05:22→21:55)
--- NOTE | 2023-03-30 05:55 | EKG12_ITS ---
Test Reason : PRE OP Blood Pressure : / mmHG Vent. Rate : 085 BPM Atrial Rate : 085 BPM P-R Int : 184 ms QRS Dur : 084 ms QT Int : 380 ms P-R-T Axes : 075 -42 057 degrees QTc Int : 452 ms Sinus rhythm with marked sinus arrhythmia Left axis deviation Abnormal ECG No previous ECGs available Confirmed by TOMÁS DEAN, DORINA ([id number]), manager motor CAREN ROCHA ([id number]) on 03/30/2023 2:03:49 PM Referred By: Confirmed By:DORINA ENGLAND MD
[2023-03-30 06:04] LABS: Absolute Lymphocyte Count 0.88 X10^3/uL (0.83-4.51); Absolute Neutrophil Count 9.2 X10^3/uL (2.0-7.7); Basophil# 0.09 X10^3/uL; Basophil% 0.7 % (0-1); Eosinophil# 0.21 X10^3/uL; Eosinophils% 1.7 % (0-5); Hematocrit 28.4 % (40-54); Hemoglobin 8.9 g/dL (13.0-16.5); Lymphocyte # 0.88 X10^3/ul (0.83-4.51); Lymphocyte % 7.3 % (19-41); Mean Corp Hgb Conc 31.3 g/dL (32-36); Mean Corpuscular Hgb 30.7 pg (27.0-32.0); Mean Corpuscular Volume 97.9 fL (80-94); Mean Platelet Vol. 9.4 fl (6.2-12.0); Monocyte# 1.44 X10^3/uL; NRBC Flagged by Analyzer 0 % (0-5); Neutrophil # 9.24 X10^3/uL (2.7-7.7); Neutrophil % 76.7 % (47-70); Platelet Count 281 K/mm3 (150-450); RBC Distribution Width SD 53.8 fl (35.1-43.9); White Blood Count 12.1 K/mm3 (4.4-11.0)
[2023-03-30 06:32] LABS: ALB/GLOB Ratio 0.8 RATIO (0.9-2.4); AST(SGOT) 14 U/L (15-37); Alanine Aminotransfer ALT/SGPT 13 U/L (16-61); Albumin, Serum 2.7 g/dL (3.2-5.0); Alkaline Phosphatase 68 U/L (45-117); Anion Gap 8 (5-15); BUN 15 mg/dL (7-18); BUN/Creat Ratio 17.1 RATIO (10-20); Calcium,Total 8.6 mg/dL (8.5-10.1); Chloride 101 mmol/L (98-107); Creatinine, Serum 0.88 mg/dL (0.70-1.30); EST Glomerular Filtration Rate 88 mL/min (>60); Est Glom Filt Rate - Afr Amer 107 mL/min (>60); Estimated Creatinine Clearance 60.45 ml/min; Globulin 3.4 g/dL (2.2-4.2); Glucose 112 mg/dL (74-106); Potassium 3.5 mmol/L (3.5-5.1); Protein, Total 6.1 g/dL (6.4-8.2); Sodium Level 138 mmol/L (136-145)
[2023-03-30] MEDS: Budesonide Respules 0.5 MG/2 ML AMPUL.NEB. INHALATION ×2 (06:52→19:49)
[2023-03-30] MEDS: levalbuterol HCL 0.63 MG/3 ML VIAL.NEB 0.630000000000000004 MG INHALATION ×2 (06:53→19:49)
[2023-03-30] MEDS: guaiFENesin 600 MG Tablet PO ×2 (09:40→21:58)
[2023-03-30] MEDS: Dofetilide 250 MCG Capsule PO ×2 (09:40→21:58)
[2023-03-30] MEDS: Pantoprazole Sodium 20 MG Tablet PO ×2 (09:40→21:58)
[2023-03-30] MEDS: Midodrine HCl 5 MG Tablet PO ×3 (09:40→17:10)
[2023-03-30 10:16] LABS: Pathologist Review Reviewed
--- NOTE | 2023-03-30 10:45 | CASEMGMT ---
[facility] Face to Face with patient for initial transition planning/care coordination assessment. RN SHARYN introduced self and role at [facility]. Patient lying in bed, alert and oriented, daughter at bedside. Patient willing to participate in assessment and is able to answer all questions appropriately. Care providers, pharmacy, and demographics verified. Patient wishes to discharge TCU for additional therapy. Patient states he has no further needs or concerns at this time. SW updated regarding request for TCU. CM to follow for discharge planning needs that may arise. PCP: Abiodun Specialists: Shabana, coin machine supervisor; Shalini, printing pressman; BONIFACIO Santos printing pressman Alison [facility] Prescription Benefit: yes Living Will/HPOA: yes, Josie Rasheed LNOK: , daughter Living Arrangements: Patient lives with in 2 story home with bed and bath first floor. Patient was independent at home. Transportation: daughters DME/HHC: Patient has tub bench, BSC, raised toilet, grab bars, walker, cpap, pulse ox at home. Patient was scheduled to start with [facility]. No previous SNF. Disposition Plan: Patient to discharge to TCU pending precert. Nabila CUNNINGHAM, RN, CM
[2023-03-30] MEDS: HYDROcodone Bitartrate/Apap 5/325 Tablet PO ×2 (12:55→18:53)
[2023-03-30] MEDS: Metoprolol(XL)Succ 25 MG Tablet PO (12:55)
--- NOTE | 2023-03-30 16:40 | RAD_ITS ---
EXAM: XR CERVICAL SPINE, 2 OR 3 VIEWS CLINICAL INDICATION: neck pain TECHNIQUE: Frontal and lateral views of the cervical spine. COMPARISON: No relevant prior studies available. FINDINGS: VERTEBRAE: Unremarkable. Preserved vertebral body height. No acute fracture. No spondylolisthesis. Preservation of the normal cervical lordosis. No significant facet arthropathy. DISC SPACES: There is disc space narrowing at C4-5 and C5-6. SOFT TISSUES: Unremarkable. No prevertebral soft tissue widening. LUNG APICES: Clear. RAD/Cerv Spine 2 or 3 Views IMPRESSION: No acute osseous abnormalities. There are mild degenerative changes with disc space narrowing. Electronically Signed: Terry Rojo MD at 19:13 EST ,
--- NOTE | 2023-03-30 19:59 | PN.HOSP_ITS ---
Reason for Visit Reason for Visit: Diagnoses Paroxysmal atrial fibrillation (03/29/23) Subjective Subjective Patient was seen and examined today, he is complaining of neck discomfort, he denies any trauma, I gave him Vicodin today and had to increase it due to neck pain. X-rays were obtained of the cervical spine which showed some arthritic changes in the cervical spine which were not severe. Patient may be having muscle spasm in his neck. I talked the patient's daughter about his medical care today, patient has some left-sided abdominal pain and is on IV antibiotics at this time. Objective Data Objective Data Vital Signs: Vital Signs Temp Pulse Resp BP Pulse Ox O2 Del Method 98.3 F 84 18 102/63 94 Room Air 03/30/23 15:32 03/30/23 19:50 03/30/23 19:50 03/30/23 15:32 03/30/23 19:50 03/30/23 19:50 Oxygen Delivery Method Room Air Weight: 81 kg Body Mass Index (BMI) 27.1 Intake & Output: Intake and Output for Last 24 Hours 03/28/23 03/29/23 03/30/23 23:59 23:59 23:59 Intake Total 1080 / 1080 1250 / 1250 Output Total 250 / 250 225 / 225 Balance 830 / 830 1025 / 1025 Lab / Micro Data 03/30/23 05:20 03/30/23 05:20 Labs: Laboratory Results - last 24 hr 03/29/23 09:45: Diff Path Review Reviewed 03/29/23 20:23: Troponin I High Sens 283 H* 03/30/23 05:20: WBC 12.1 H, RBC 2.90 L, Hgb 8.9 L, Hct 28.4 L, MCV 97.9 H, MCH 30.7, MCHC 31.3 L D, RDW Std Deviation 53.8 H, RDW Coeff of David 15.0 H, Plt C ount 281, MPV 9.4, Immature Gran % (Auto) 1.600 H, Neut % (Auto) 76.7 H, Lymph % (Auto) 7.3 L, Chambers % (Auto) 12.0 H, Eos % (Auto) 1.7, Baso % (Auto) 0.7, Absolute Neuts (auto) 9.2 H, Absolute Lymphs (auto) 0.88, Nucleated RBC % 0, Sodium 138, Potassium 3.5, Chloride 101, Carbon Dioxide 29.0, Anion Gap 8, BUN 15, Creatinine 0.88, Estim Creat Clear Calc 60.45, Est GFR (MDRD) Af Amer 107, Est GFR (MDRD) Non-Af 88, BUN/Creatinine Ratio 17.1, Glucose 112 H, Calcium 8.6, Total Bilirubin 2.30 H, AST 14 L, ALT 13 L, Alkaline Phosphatase 68, Total Protein 6.1 L, Albumin 2.7 L, Globulin 3.4, Albumin/Globulin Ratio 0.8 L Micro: Microbiology 03/30/23 15:25 Stool Clostridioides difficile (PCR) - Final 03/29/23 23:45 Sputum, Expectorated/Coughed Gram Stain - Final 03/29/23 11:22 Urine, Random Legionella Antigen - Final 03/29/23 11:22 Urine, Random Streptococcus pneumoniae Antigen (M - Final 03/29/23 10:42 Mucosa - Nose SARS-CoV-2, Influenza & RSV (PCR) - Final Radiography Diagnostic Testing: Radiology Impression Cervical Spine X-Ray 03/30/23 16:40 IMPRESSION: No acute osseous abnormalities. There are mild degenerative changes with disc space narrowing. Electronically Signed: Terry Rojo MD at 19:13 EST , Physical Exam Const alert, oriented x3, no apparent distress and average body habitus General Appearance: cooperative, well kempt and well developed Orientation / Consciousness: awake, oriented to person, oriented to place and oriented to time HEENT normocephalic, head/scalp atraumatic and moist oral mucous membranes Eyes PERRL, EOMs intact bilaterally and conjunctivae normal Neck supple, no JVD, thyroid normal and no carotid bruits General: trachea midline Resp normal respiratory effort, no retractions, no use of accessory muscles and clear to auscultation bilaterally Auscultation: Negative for rales, rhonchi or wheezes Cardio no murmurs, no rub and no gallops Cardio Narrative: Occasional ectopy was noted on auscultation of the heart GI normal to inspection, nondistended, normoactive bowel sounds, soft to palpation and non-distended GI Narrative: Patient has left-sided abdominal tenderness on palpation, no rebound abdominal tenderness was noted Extremity no clubbing, cyanosis or edema Skin no rashes or lesions noted General Skin Exam: no breakdown Neuro oriented x3, CN's II-XII intact bilaterally, no focal motor deficits and no se nsory deficits noted Sensorium / Orientation: awake and alert Speech: speech normal Psych affect normal Assessment & Plan Assessment/Plan (1) Paroxysmal atrial fibrillation: PLAN: Plan 1. Acute diverticulitis-continue IV antibiotics at this time, monitor CBC #2 paroxysmal atrial fibrillation-patient is currently on Tikosyn and beta-b locker. 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 Patient does not complain of any radicular pain so I do not think an MRI of the neck is necessary at this time. #5 recent acute blood loss anemia from retroperitoneal bleed-patient remains off of anticoagulation at this time, hemoglobin dropped slightly from admission, CBC will be rechecked tomorrow #6 chronic obstructive pulmonary disease without exacerbation-pulse ox will be monitored, patient is now on no oxygen #7 coronary artery disease-this is being treated medically at this time #8 hyperlipidemia-patient is on a statin Total clinical time spent by myself addressing the patient's medical issues, reviewing all of his data, and collaborating with patient's care team: 35- minutes Capacity Legal Blintze Roller Reflex Medical hold order details:: IF a medical hold is selected below, a suggested order for a MEDICAL HOLD will reflex upon signing the document. Next of kin: [place] law dictates a PRIORITY LIST for identifying legal decision-maker/legal next of kin in the following order (LNOK): 1st: The patient?s legal guardian, if any 2nd: The patient's spouse (if status is questionable, consult Risk Management) 3rd: The patient?s adult child(allison) (majority, if multiple children) 4th: The patient?s parents 5th: The patient?s adult siblings (majority, if multiple children siblings) Charges/Coding Visit Charges Inpatient E&M: 45864 Subs Hosp L2
[2023-03-30] MEDS: LORazepam 0.5 MG Tablet PO (21:58)
[2023-03-30] MEDS: Tamsulosin HCl 0.4 MG Capsule 0.800000000000000044 MG PO (21:58)
[2023-03-30] MEDS: Atorvastatin Calcium 10 MG Tablet PO (22:00)
[2023-03-31] VITALS (10 sets, daily range): BP systolic 97–100; BP diastolic 60–71; PULSE 80–93; RESP 16–20; TEMP 36.6–37; O2SAT 92–98; BMI 27.3
--- NOTE | 2023-03-31 02:44 | CPS ---
Pt has home cpap unit hooked up and in use. pt is on room air.
[2023-03-31] MEDS: Piperacil/Tazobactam 3.375 GM in 0.9% Normal Saline (50mL MB+) 50 ML IV ×3 (06:07→22:02)
[2023-03-31] MEDS: levalbuterol HCL 0.63 MG/3 ML VIAL.NEB 0.630000000000000004 MG INHALATION ×2 (08:06→19:55)
[2023-03-31] MEDS: Budesonide Respules 0.5 MG/2 ML AMPUL.NEB. INHALATION ×2 (08:06→19:54)
[2023-03-31 09:19] LABS: Absolute Lymphocyte Count 0.81 X10^3/uL (0.83-4.51); Absolute Neutrophil Count 8.6 X10^3/uL (2.0-7.7); Basophil# 0.09 X10^3/uL; Basophil% 0.8 % (0-1); Eosinophil# 0.25 X10^3/uL; Eosinophils% 2.3 % (0-5); Hemoglobin 9.1 g/dL (13.0-16.5); Lymphocyte # 0.81 X10^3/ul (0.83-4.51); Lymphocyte % 7.4 % (19-41); Mean Corp Hgb Conc 31.4 g/dL (32-36); Mean Corpuscular Hgb 30.3 pg (27.0-32.0); Mean Corpuscular Volume 96.7 fL (80-94); Mean Platelet Vol. 9.2 fl (6.2-12.0); Monocyte# 0.97 X10^3/uL; Monocyte% 8.9 % (0-10); NRBC Flagged by Analyzer 0 % (0-5); Neutrophil % 78.7 % (47-70); Platelet Count 320 K/mm3 (150-450); RBC Distribution Width CV 14.6 % (11.6-14.6); RBC Distribution Width SD 51.2 fl (35.1-43.9); White Blood Count 10.9 K/mm3 (4.4-11.0)
[2023-03-31] MEDS: Dofetilide 250 MCG Capsule PO ×2 (10:02→22:05)
[2023-03-31] MEDS: Pantoprazole Sodium 20 MG Tablet PO ×2 (10:02→22:03)
[2023-03-31] MEDS: guaiFENesin 600 MG Tablet PO ×2 (10:02→22:03)
[2023-03-31] MEDS: Metoprolol(XL)Succ 25 MG Tablet PO (10:02)
[2023-03-31] MEDS: Midodrine HCl 5 MG Tablet PO ×3 (10:02→17:27)
[2023-03-31] MEDS: HYDROcodone Bitartrate/Apap 5/325 Tablet PO (10:05)
--- NOTE | 2023-03-31 13:58 | CASEMGMT ---
SW asked Norah to start pre-cert for patient. Plan: d/c to [facility] TCU pending insurance approval. Fatemeh MOMIN
--- NOTE | 2023-03-31 15:29 | EKG12_ITS ---
Test Reason : Blood Pressure : / mmHG Vent. Rate : 079 BPM Atrial Rate : 079 BPM P-R Int : 196 ms QRS Dur : 094 ms QT Int : 400 ms P-R-T Axes : 050 -42 032 degrees QTc Int : 458 ms Normal sinus rhythm with sinus arrhythmia Left axis deviation Abnormal ECG When compared with ECG of 30-MAR-2023 05:14, No significant change was found Confirmed by TOMÁS DEAN, DORINA ([id number]), health editor IVANNA NEWMAN ([id number]) on 04/02/2023 7:06:08 AM Referred By: WARNER Confirmed By:DORINA ENGLAND MD
--- NOTE | 2023-03-31 16:58 | PCM.PN.HOSP ---
Reason for Visit Reason for Visit: Diagnoses Paroxysmal atrial fibrillation (03/29/23) Subjective Subjective Patient was seen and examined today, he had a brief run of A-fib with RVR which spontaneously resolved. Patient's hemoglobin this morning is 9.1. Patient still has a little left-sided abdominal pain. Request for pre-CERT for a skilled care facility was placed today. I talked to the patient's daughter who was in the room at the time my examination. Patient's neck pain is somewhat better today. Objective Data Objective Data Vital Signs: Vital Signs Temp Pulse Resp BP Pulse Ox O2 Del Method 98.4 F 88 20 H 98/71 98 Room Air 03/31/23 12:33 03/31/23 13:06 03/31/23 13:06 03/31/23 12:33 03/31/23 12:33 03/31/23 12:33 Oxygen Delivery Method Room Air Weight: 81.4 kg Body Mass Index (BMI) 27.3 Intake & Output: Intake and Output for Last 24 Hours 03/29/23 03/30/23 03/31/23 23:59 23:59 23:59 Intake Total 1080 / 1080 1300 / 1300 100 / 100 Output Total 250 / 250 225 / 400 375 / 375 Balance 830 / 830 1075 / 900 -275 / -275 Lab / Micro Data 03/31/23 09:05 03/30/23 05:20 Labs: Laboratory Results - last 24 hr 03/31/23 09:05: WBC 10.9, RBC 3.00 L, Hgb 9.1 L, Hct 29.0 L, MCV 96.7 H, MCH 30.3, MCHC 31.4 L, RDW Std Deviation 51.2 H, RDW Coeff of David 14.6, Plt Count 320, MPV 9.2, Immature Gran % (Auto) 1.900 H, Neut % (Auto) 78.7 H, Lymph % (Auto) 7.4 L, [place] % (Auto) 8.9, Eos % (Auto) 2.3, Baso % (Auto) 0.8, Absolute Neuts (auto) 8.6 H, Absolute Lymphs (auto) 0.81 L, Nucleated RBC % 0 Micro: Microbiology 03/30/23 15:25 Stool Enteric Bacteriology - Final 03/29/23 23:45 Sputum, Expectorated/Coughed Gram Stain - Final 03/29/23 23:45 Sputum, Expectorated/Coughed Respiratory Culture - Preliminary Appears to be normal respiratory lyudmila. Further studies to follow. 03/30/23 15:25 Stool Clostridioides difficile (PCR) - Final 03/29/23 11:22 Urine, Random Legionella Antigen - Final 03/29/23 11:22 Urine, Random Streptococcus pneumoniae Antigen (M - Final 03/29/23 10:42 Mucosa - Nose SARS-CoV-2, Influenza & RSV (PCR) - Final Radiography Diagnostic Testing: Radiology Impression Cervical Spine X-Ray 03/30/23 16:40 IMPRESSION: No acute osseous abnormalities. There are mild degenerative changes with disc space narrowing. Electronically Signed: Terry Rojo MD at 19:13 EST , Physical Exam Const alert, oriented x3, no apparent distress and healthy appearing General Appearance: cooperative, well kempt and well developed Orientation / Consciousness: awake, oriented to person, oriented to place and oriented to time HEENT normocephalic and moist oral mucous membranes Eyes PERRL, EOMs intact bilaterally and conjunctivae normal Neck supple, no JVD, thyroid normal and no carotid bruits General: trachea midline Resp normal respiratory effort and clear to auscultation bilaterally Auscultation: Negative for rales, rhonchi or wheezes Cardio regular rate, regular rhythm, no murmurs, no rub and no gallops GI normal to inspection, nondistended, normoactive bowel sounds, soft to palpation and non-distended GI Narrative: Mild abdominal tenderness is noted over the left lateral abdominal quadrant Extremity no clubbing, cyanosis or edema Skin no rashes or lesions noted General Skin Exam: no breakdown Neuro oriented x3, CN's II-XII intact bilaterally, no focal motor deficits and no sensory deficits noted Sensorium / Orientation: awake and alert Speech: speech normal Psych affect normal Assessment & Plan Assessment/Plan (1) Acute diverticulitis: (2) Paroxysmal atrial fibrillation: (3) Neck pain: PLAN: Plan 1. Acute diverticulitis-continue IV antibiotics at this time, monitor CBC #2 paroxysmal atrial fibrillation-patient is currently on Tikosyn and beta-megan. 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 Patient does not complain of any radicular pain so I do not think an MRI of the neck is necessary at this time. #5 recent acute blood loss anemia from retroperitoneal bleed-patient remains off of anticoagulation at this time, hemoglobin dropped slightly from admission, CBC will be rechecked tomorrow #6 chronic obstructive pulmonary disease without exacerbation-pulse ox will be monitored, patient is now on no oxygen #7 coronary artery disease-this is being treated medically at this time #8 hyperlipidemia-patient is on a statin Total clinical time spent by myself addressing the patient's medical issues, reviewing all of his data, and collaborating with patient's care team: 35-minutes Capacity Legal Physician Practice Consultant Reflex Medical hold order details:: IF a medical hold is selected below, a suggested order for a MEDICAL HOLD will reflex upon signing the document. Next of kin: [place] law dictates a PRIORITY LIST for identifying legal decision-maker/legal next of kin in the following order (LNOK): 1st: The patient?s legal guardian, if any 2nd: The patient's spouse (if status is questionable, consult Risk Management) 3rd: The patient?s adult child(allison) (majority, if multiple children) 4th: The patient?s parents 5th: The patient?s adult siblings (majority, if multiple children siblings) Charges/Coding Visit Charges Inpatient E&M: 78295 Subs Hosp L2
[2023-03-31] MEDS: LORazepam 0.5 MG Tablet PO (22:02)
[2023-03-31] MEDS: Tamsulosin HCl 0.4 MG Capsule 0.800000000000000044 MG PO (22:03)
[2023-03-31] MEDS: Atorvastatin Calcium 10 MG Tablet PO (22:03)
[2023-04-01 03:14] VITALS: BP 106/70; PULSE 85; RESP 16; TEMP 36.8; O2SAT 95
[2023-04-01 04:23] VITALS: BMI 27.3
[2023-04-01] MEDS: Piperacil/Tazobactam 3.375 GM in 0.9% Normal Saline (50mL MB+) 50 ML IV ×2 (05:15→13:03)
[2023-04-01 06:49] VITALS: PULSE 80; RESP 18; O2SAT 92
[2023-04-01] MEDS: Budesonide Respules 0.5 MG/2 ML AMPUL.NEB. INHALATION (06:49)
[2023-04-01] MEDS: levalbuterol HCL 0.63 MG/3 ML VIAL.NEB 0.630000000000000004 MG INHALATION (06:49)
[2023-04-01] MEDS: Midodrine HCl 5 MG Tablet PO ×3 (09:01→17:01)
[2023-04-01 09:03] VITALS: PULSE 105
[2023-04-01] MEDS: guaiFENesin 600 MG Tablet PO (09:03)
[2023-04-01] MEDS: Pantoprazole Sodium 20 MG Tablet PO (09:03)
[2023-04-01] MEDS: Metoprolol(XL)Succ 25 MG Tablet PO (09:03)
[2023-04-01] MEDS: Dofetilide 250 MCG Capsule PO (09:04)
[2023-04-01 09:10] VITALS: BP 102/61; PULSE 105; RESP 18; TEMP 36.6; O2SAT 92
--- NOTE | 2023-04-01 11:15 | CASEMGMT ---
Patient was approved for [facility] TCU. SW notified physician and patient's daughter who was in patient's room. Plan: d/c to [facility] TCU under skilled level of care. Fatemeh MOMIN
[2023-04-01] MEDS: HYDROcodone Bitartrate/Apap 5/325 Tablet PO (11:35)
--- NOTE | 2023-04-01 16:13 | TREXTCAR_ITS ---
Diet Diet Order/Speech Therapy: 03/31/23 12:49 Diet: Regular - General Food consistency:: Soft & Bite Sized Liquid Consistency:: Regular/Thin Type of Dietary Supplement:: Ensure Clear Is pt able to select menu?: Yes Diet Comments: 8oz ensure clear w/ breakfast and dinner tray Routine Orders/Code Status Routine Lab Work: CBC (04/02/23) Code Status: Full Code Therapies Weight Bearing: Full weight bearing Physical Therapy: Eval and Treat Occupational Therapy: Eval and Treat Problem/Diagnosis (1) Paroxysmal atrial fibrillation: Status: Chronic Code(s): I48.0 - Paroxysmal atrial fibrillation (2) Neck pain: Status: Acute Code(s): M54.2 - Cervicalgia Plan 1. Acute diverticulitis-continue IV antibiotics at this time, monitor CBC #2 paroxysmal atrial fibrillation-patient is currently on Tikosyn and beta- megan. 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 Patient does not complain of any radicular pain so I do not think an MRI of the neck is necessary at this time. #5 recent acute blood loss anemia from retroperitoneal bleed-patient remains off of anticoagulation at this time, hemoglobin dropped slightly from admission, CBC will be rechecked tomorrow #6 chronic obstructive pulmonary disease without exacerbation-pulse ox will be monitored, patient is now on no oxygen #7 coronary artery disease-this is being treated medically at this time #8 hyperlipidemia-patient is on a statin Total clinical time spent by myself addressing the patient's medical issues, reviewing all of his data, and collaborating with patient's care team: 35- minutes Allergies/Procedures Done in Hospital Allergies No Known Allergies Allergy (Verified 01/31/22 15:05) Procedures: None Type of Care/Length of Stay Estimated LOS: Convalescent Care Less Than 30 days Type of Care Needed: Skilled Rehab Potential: Good Prognosis: Good Additional Orders/Day of Discharge H&P will serve as current which was dated: 03/29/23 Day of Discharge: 04/01/23 Dietary and Speech Recommendations Dietitian Recommendations/Changes: Recommend advance diet as tolerated to cardiac. Will add 240mL ensure clear BID w/ breakfast and dinner trays. Adjust ONS as diet advanced and PO better established with meals. Discharge Plan Admission Admit Date/Time: 03/29/23 13:11 Primary Reason for Your Visit: diverticulitis,debility Attending Provider: Neville Wilhelm Primary Care Provider: Arnulfo Rascon Consulting Providers: Marilee Yeager Instructions Additional Instructions / Restrictions: Please contact the patient's shook splicer to find out when the patient should resume Eliquis Discharge Orders/Prescriptions Prescriptions: New acetaminophen 325 mg Tablet 650 mg PO Q4H PRN PRN (Reason: Fever, pain 1-10/10) Qty: 1 0RF lorazepam 0.5 mg Tablet 0.5 mg PO QHS Qty: 5 0RF hydrocodone-acetaminophen 5-325 mg Tablet 2 tab PO Q6H PRN PRN (Reason: Pain Score 1-10) 3 Days Qty: 12 0RF budesonide 0.5 mg/2 mL Suspension For Nebulization 0.5 mg inhalation BID.RT Qty: 0 0RF menthol-zinc oxide [Calmoseptine] 0.44-20.6 % Ointment 1 applic topical 4X/DAY PRN (Reason: skin breakdown/irritation) Qty: 0 0RF Protocol: *Topical Application Instructions APPLICATION INSTRUCTIONS: apply to affected region amoxicillin-pot clavulanate [Augmentin] 500-125 mg tablet 1 tab PO TID Qty: 21 0RF Rx Instructions: start 04/01/23 methocarbamol 750 mg tablet 750 mg PO TID Qty: 1 0RF Rx Instructions: for neck pain Continued rosuvastatin [Crestor] 5 mg tablet 5 mg PO QDAY metoprolol succinate 25 mg tablet extended release 24 hr 25 mg PO DAILY nitroglycerin 0.4 mg tablet, sublingual 0.4 mg sublingual Q5M PRN (Reason: CP) Rx Instructions: do not exceed 3 doses per episode dofetilide 250 mcg capsule 250 mcg PO Q12H Patient Comments: TAKE 1 CAPSULE BY MOUTH EVERY 12 HOURS midodrine 5 mg tablet 5 mg PO TID Patient Comments: take 1 tablet by mouth three times a day pantoprazole 40 mg tablet,delayed release (DR/EC) 40 mg PO BID Patient Comments: take 1 tablet by mouth twice a day take before meals Rx Instructions: Before meals finasteride 5 mg tablet 5 mg PO DAILY Patient Comments: take 1 tablet by mouth once daily duloxetine 60 mg capsule,delayed release(DR/EC) See Rx Instructions PO DAILY Rx Instructions: 60 mg (2 caps) orally daily; Jardiance 25 mg tablet 12.5 mg PO DAILY levalbuterol HCl 0.63 mg/3 mL solution for nebulization 0.63 mg INHALATION TID Patient Comments: USE 1 VIAL 3 TIMES A DAY ICaps AREDS2 250 mg-200 unit -12.5 mg-1 mg capsule 1 cap PO DAILY cyanocobalamin (vitamin B-12) 1,000 mcg/mL kit 100 mcg IM QMONTH tamsulosin [Flomax] 0.4 mg capsule 0.8 mg PO QHS guaifenesin [Mucinex] 600 mg tablet extended release 12hr 600 mg PO BID cholecalciferol (vitamin D3) 25 mcg (1,000 unit) tablet 25 mcg PO DAILY Discontinued lorazepam 0.5 mg tablet 0.5 mg PO QHS budesonide-formoterol [Symbicort] 80-4.5 mcg/actuation HFA aerosol inhaler 1 inh inhalation BID apixaban 5 mg tablet 5 mg PO BID doxycycline hyclate 100 mg capsule 100 mg PO BID Patient Comments: take 1 capsule by mouth twice a day for 10 days bumetanide 1 mg tablet 1 mg PO DAILY Patient Comments: take 1 tablet by mouth once daily potassium chloride 20 mEq tablet extended release 20 meq PO DAILY Patient Comments: take 1 tablet by mouth once daily Stiolto Respimat 2.5-2.5 mcg/actuation mist 2 puff inhalation DAILY acetaminophen 500 mg tablet 500 mg PO Q4H PRN (Reason: Pain) Referrals / Follow Up: Arnulfo Rascon MD [Primary Care Provider] - Disposition Disposition (needs filled in before D/C Order can be placed): [facility]
--- NOTE | 2023-04-01 16:55 | PCM.DC.SUM ---
Providers Date of Admission: 03/29/23 Date of Discharge: 04/01/23 Primary Care Physician: Dr. Arnulfo Rascon MD Reason For Visit: PAF RVR DIVERTICULITIS, RECENT ABLA RETROPER BLEED Diagnosis Discharge Diagnosis (1) Paroxysmal atrial fibrillation: Status: Chronic Code(s): I48.0 - Paroxysmal atrial fibrillation (2) Neck pain: Status: Acute Code(s): M54.2 - Cervicalgia Plan 1. Acute diverticulitis-continue IV antibiotics at this time, monitor CBC #2 paroxysmal atrial fibrillation-patient is currently on Tikosyn and beta-megan. 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 Patient does not complain of any radicular pain so I do not think an MRI of the neck is necessary at this time. #5 recent acute blood loss anemia from retroperitoneal bleed-patient remains off of anticoagulation at this time, hemoglobin dropped slightly from admission, CBC will be rechecked tomorrow #6 chronic obstructive pulmonary disease without exacerbation-pulse ox will be monitored, patient is now on no oxygen #7 coronary artery disease-this is being treated medically at this time #8 hyperlipidemia-patient is on a statin Total clinical time spent by myself addressing the patient's medical issues, reviewing all of his data, and collaborating with patient's care team: 35-minutes Medications at Discharge Home Medications rosuvastatin 5 mg tablet (Crestor) 5 mg PO QDAY cholesterol 07/04/17 cholecalciferol (vitamin D3) 25 mcg (1,000 unit) tablet 25 mcg PO DAILY supplement 05/22/21 guaifenesin 600 mg tablet, extended release 12 hr (Mucinex) 600 mg PO BID cough 05/22/21 tamsulosin 0.4 mg capsule (Flomax) 0.8 mg PO QHS BPH 05/22/21 metoprolol succinate 25 mg tablet,extended release 24 hr 25 mg PO DAILY AFIB 06/27/21 nitroglycerin 0.4 mg sublingual tablet 0.4 mg sublingual Q5M PRN CP 06/27/21 cyanocobalamin (vitamin B-12) 1,000 mcg/mL injection kit 100 mcg IM QMONTH supplement 03/29/23 dofetilide 250 mcg capsule 250 mcg PO Q12H afib 03/29/23 duloxetine 60 mg capsule,delayed release See Rx Instructions PO DAILY mood 03/29/23 empagliflozin 25 mg tablet (Jardiance) 12.5 mg PO DAILY heart 03/29/23 finasteride 5 mg tablet 5 mg PO DAILY bph 03/29/23 levalbuterol HCl 0.63 mg/3 mL solution for nebulization 0.63 mg inhalation TID copd 03/29/23 midodrine 5 mg tablet 5 mg PO TID blood pressure 03/29/23 pantoprazole 40 mg tablet,delayed release 40 mg PO BID GERD 03/29/23 vit C 250 mg-vit E 200 unit-zinc ox 12.5 it-habgyf-fzsqyb-zeax capsule (ICaps AREDS2) 1 cap PO DAILY supplement 03/29/23 acetaminophen 325 mg tablet 650 mg (2 x 325 mg) PO Q4H PRN PRN Fever, pain 1-10/10 #1 TAB 04/01/23 amoxicillin 500 mg-potassium clavulanate 125 mg tablet (Augmentin) 1 tab PO TID Antibiotic #21 tabs 04/01/23 budesonide 0.5 mg/2 mL suspension for nebulization 0.5 mg (2 mL) inhalation BID.RT Asthma #0 mL 04/01/23 hydrocodone-acetaminophen 5-325mg 5mg-325mg 2 tab PO Q6H PRN PRN Pain Score 1-10 3 days #12 tabs 04/01/23 lorazepam 0.5 mg tablet 0.5 mg PO QHS Anxiety #5 tabs 04/01/23 menthol 0.44 %-zinc oxide 20.6 % topical ointment (Calmoseptine) 1 applic topical 4X/DAY PRN skin breakdown/irritation #0 grams 04/01/23 methocarbamol 750 mg tablet 750 mg PO TID Muscle Relaxer #1 TAB 04/01/23 Hospital Course Operations None Procedures None Summary of Care Provided Minutes Spent on Discharge: 32 Hospital Course: This 82-year-old white male was seen in the emergency room at [facility] with complaints of weakness. Patient was set up on March 23, 2023 for a cardiac cryoablation due to persistent atrial fibrillation at [facility], postoperatively his course was complicated by hypotension and was he was found to have retroperitoneal bleed and pneumonia. He underwent blood transfusions and was treated with antibiotics for pneumonia, he was also diuresed. He was evaluated by physical therapy at [facility] and was felt that he was able to go home from the hospital even though he complained of generalized weakness. Patient was discharged from the hospital several days prior to his ER visit, family states patient continues to have poor appetite and generalized weakness, patient's family felt that he would need inpatient physical therapy at a skilled care facility or rehab facility. Labs were obtained, white blood cell count was elevated at 12.9, hemoglobin was 9.8, troponin was elevated at 346, urinalysis was unremarkable, CT of the abdomen pelvis was obtained which showed mild inflammatory changes along the left colon suggestive of diffuse diverticulitis without abscess or perforation, a left retroperitoneal hemorrhage was noted also. CT of the chest was performed which showed no evidence of acute pulmonary embolism, pulmonary emphysema was noted to be present. Patient was admitted to PCU, he was placed on antibiotics for diverticulitis and seen by PT and OT, patient's labs were monitored and he did not appreciably drop his hemoglobin. Patient had periods of atrial fibrillation with RVR but these were brief, for the most part he remained in sinus rhythm On 04/01/2023, patient was seen and examined: On examination he appeared in good health and spirits. Vital signs as documented. Skin warm and dry and without overt rashes. Neck without JVD, neck was supple, trachea midline, thyroid was normal. Lungs clear bilaterally, normal air movement was noted. Heart exam notable for regular rhythm, normal sounds and absence of murmurs, rubs or gallops. Abdomen unremarkable and without evidence of organomegaly, masses, or abdominal aortic enlargement. Bowel sounds are present, abdomen is not distended. Extremities nonedematous, no cyanosis was noted, no clubbing was noted. Neuro: Cranial nerves II through XII are grossly intact, no focal motor deficits were noted, sensation to light touch and pinprick intact, motor exam 5/5 throughout. Psych: Patient is alert and oriented x3, he does not appear anxious or depressed, he does not appear agitated. Patient was discharged to TCU on 04/01/2023, I talked with the daughter prior to his transfer and urged her to call His EP physician to confirm when he would be able to restart contact his EP physician to confirm when the physician wanted the Eliquis restarted.. I attempted to physician but he was out on vacation. Weight / BMI Weight Weight: 81.4 kg Body Mass Index (BMI) 27.3 ABG / Lab / Microbiology Data 03/31/23 09:05 03/30/23 05:20 Microbiology: Microbiology 03/29/23 23:45 Sputum, Expectorated/Coughed Gram Stain - Final 03/29/23 23:45 Sputum, Expectorated/Coughed Respiratory Culture - Final Mixed normal respiratory lyudmila. No Streptococcus pneumoniae, beta-hemolytic Streptococcus or Staphylococcus aureus isolated. 03/30/23 15:25 Stool Enteric Bacteriology - Final 03/30/23 15:25 Stool Clostridioides difficile (PCR) - Final 03/29/23 11:22 Urine, Random Legionella Antigen - Final 03/29/23 11:22 Urine, Random Streptococcus pneumoniae Antigen (M - Final 03/29/23 10:42 Mucosa - Nose SARS-CoV-2, Influenza & RSV (PCR) - Final Meaningful Use Info Meaningful Use Diagnoses (Choose all that apply): None applicable Discharge Plan Admission Admit Date/Time: 03/29/23 13:11 Primary Reason for Your Visit: diverticulitis,debility Attending Provider: Neville Wilhelm Primary Care Provider: Arnulfo Rascon Consulting Providers: Marilee Yeager Instructions Additional Instructions / Restrictions: Please contact the patient's title i instructional assistant to find out when the patient should resume Eliquis Discharge Orders/Prescriptions Prescriptions: New acetaminophen 325 mg Tablet 650 mg PO Q4H PRN PRN (Reason: Fever, pain 1-10/10) Qty: 1 0RF lorazepam 0.5 mg Tablet 0.5 mg PO QHS Qty: 5 0RF hydrocodone-acetaminophen 5-325 mg Tablet 2 tab PO Q6H PRN PRN (Reason: Pain Score 1-10) 3 Days Qty: 12 0RF budesonide 0.5 mg/2 mL Suspension For Nebulization 0.5 mg inhalation BID.RT Qty: 0 0RF menthol-zinc oxide [Calmoseptine] 0.44-20.6 % Ointment 1 applic topical 4X/DAY PRN (Reason: skin breakdown/irritation) Qty: 0 0RF Protocol: *Topical Application Instructions APPLICATION INSTRUCTIONS: apply to affected region amoxicillin-pot clavulanate [Augmentin] 500-125 mg tablet 1 tab PO TID Qty: 21 0RF Rx Instructions: start 04/01/23 methocarbamol 750 mg tablet 750 mg PO TID Qty: 1 0RF Rx Instructions: for neck pain Continued rosuvastatin [Crestor] 5 mg tablet 5 mg PO QDAY metoprolol succinate 25 mg tablet extended release 24 hr 25 mg PO DAILY nitroglycerin 0.4 mg tablet, sublingual 0.4 mg sublingual Q5M PRN (Reason: CP) Rx Instructions: do not exceed 3 doses per episode dofetilide 250 mcg capsule 250 mcg PO Q12H Patient Comments: TAKE 1 CAPSULE BY MOUTH EVERY 12 HOURS midodrine 5 mg tablet 5 mg PO TID Patient Comments: take 1 tablet by mouth three times a day pantoprazole 40 mg tablet,delayed release (DR/EC) 40 mg PO BID Patient Comments: take 1 tablet by mouth twice a day take before meals Rx Instructions: Before meals finasteride 5 mg tablet 5 mg PO DAILY Patient Comments: take 1 tablet by mouth once daily duloxetine 60 mg capsule,delayed release(DR/EC) See Rx Instructions PO DAILY Rx Instructions: 60 mg (2 caps) orally daily; Jardiance 25 mg tablet 12.5 mg PO DAILY levalbuterol HCl 0.63 mg/3 mL solution for nebulization 0.63 mg INHALATION TID Patient Comments: USE 1 VIAL 3 TIMES A DAY ICaps AREDS2 250 mg-200 unit -12.5 mg-1 mg capsule 1 cap PO DAILY cyanocobalamin (vitamin B-12) 1,000 mcg/mL kit 100 mcg IM QMONTH tamsulosin [Flomax] 0.4 mg capsule 0.8 mg PO QHS guaifenesin [Mucinex] 600 mg tablet extended release 12hr 600 mg PO BID cholecalciferol (vitamin D3) 25 mcg (1,000 unit) tablet 25 mcg PO DAILY Discontinued lorazepam 0.5 mg tablet 0.5 mg PO QHS budesonide-formoterol [Symbicort] 80-4.5 mcg/actuation HFA aerosol inhaler 1 inh inhalation BID apixaban 5 mg tablet 5 mg PO BID doxycycline hyclate 100 mg capsule 100 mg PO BID Patient Comments: take 1 capsule by mouth twice a day for 10 days bumetanide 1 mg tablet 1 mg PO DAILY Patient Comments: take 1 tablet by mouth once daily potassium chloride 20 mEq tablet extended release 20 meq PO DAILY Patient Comments: take 1 tablet by mouth once daily Stiolto Respimat 2.5-2.5 mcg/actuation mist 2 puff inhalation DAILY acetaminophen 500 mg tablet 500 mg PO Q4H PRN (Reason: Pain) Referrals / Follow Up: Arnulfo Rascon MD [Primary Care Provider] - Disposition Disposition (needs filled in before D/C Order can be placed): [facility] Facility Charges/Coding Visit Charges Inpatient E&M: 93832 Disch Hosp >30min
[2023-04-01 16:59] VITALS: BP 101/61; PULSE 80; RESP 16; TEMP 36.5; O2SAT 95
--- NOTE | 2023-04-01 18:08 | MDS.RN ---
report called to MARIA A Hart on TCU
== END 2023-04-01 18:10 | disposition skilled nursing facility (03) | DRG 391 ==
LOC: ED 13:35 → PCU 13:55
PROVIDERS: Admitting Provider Family Medicine; Emergency Provider Emergency Medicine; PCP Family Medicine; Visit Provider Internal Medicine
DX: K57.32 Diverticulitis of large intestine without perforation or abscess without bleeding (principal); K68.3 Retroperitoneal hematoma; I50.22 Chronic systolic (congestive) heart failure; D62 Acute posthemorrhagic anemia; I11.0 Hypertensive heart disease with heart failure; J84.10 Pulmonary fibrosis, unspecified; J43.9 Emphysema, unspecified; I48.0 Paroxysmal atrial fibrillation; F32.A Depression, unspecified; E78.5 Hyperlipidemia, unspecified; I25.10 Atherosclerotic heart disease of native coronary artery without angina pectoris; M50.30 Other cervical disc degeneration, unspecified cervical region; M62.838 Other muscle spasm; F41.9 Anxiety disorder, unspecified; G47.33 Obstructive sleep apnea (adult) (pediatric); I49.3 Ventricular premature depolarization; N40.0 Benign prostatic hyperplasia without lower urinary tract symptoms; R53.81 Other malaise; R74.8 Abnormal levels of other serum enzymes; Z79.01 Long term (current) use of anticoagulants; Z79.51 Long term (current) use of inhaled steroids; Z79.899 Other long term (current) drug therapy; Z87.891 Personal history of nicotine dependence
CPT/HCPCS: 36415; 71275; 72040; 74177; 80048; 80053; 80076; 81001; 83605; 83690; 83735; 83880; 84145; 84484; 85025; 85610; 85730; 87070; 87205; 87449; 87493; 87506; 87631; 93005; 94640; 94668; 97110; 97116; 97162; 97166; 97802; 99285; J7040; Q9967

== ENCOUNTER 2023-04-01 18:23 | Inpatient (IN) | payer MEDICARE, SELFPAY ==
[2023-04-01 18:58] VITALS: BP 108/65; PULSE 78; RESP 16; TEMP 36.3; O2SAT 95; BMI 25.9
--- NOTE | 2023-04-01 19:49 | HP.PCM_ITS ---
HPI - General General Date of Admission: 04/01/23 Date of Service: 04/02/23 Chief Complaint: Here for rehabilitation. HPI Narrative 03/29/2023 ELIO DORAN, is a 82 Male who presents to [facility] ED palpitations. Weakness. Recent [facility] admission for AFIB with RVR, pneumonia. Coreg, Digoxin, Sotalol for AFIB. Tikosyn gave him diarrhea. 03/23/2023 Cardiac cryoablation for AFIB. Postop complicated by retroperitoneal bleed, pneumonia. Vancomycin, Doxycycline for pneumonia. Tikosyn restarted, diarrhea returned, Eliquis held. Failed home discharge. CT chest NEGATIVE PE, CT A/P left retroperitoneal hematoma, diverticulosis. 03/29/2023 Admit to Hospital. 03/30/2023 Vicodin for neck pain. X-ray C spine showed arthritis. IV ATB's for acute diverticulitis. BB, Tikosyn for AFIB. PT/OT SNF. Eliquis for AFIB held 2/2 retroperitoneal bleed. 03/31/2023 AFIB with RVR, briefly, resolved. Hemoglobin 9.1. Pre-[facility] SNF. Neck pain improved. 04/01/2023 Admit to TCU with debility, here for rehabilitation, strengthening, prior to discharge home with . [facility] Medical History (Updated 04/01/23 @ 19:[address] Parrish Shah MD) Atherosclerotic heart disease of [place] coronary artery without angina pectoris BPH (benign prostatic hyperplasia) Chronic diarrhea COPD (chronic obstructive pulmonary disease) GERD (gastroesophageal reflux disease) HFrEF (heart failure with reduced ejection fraction) Hyperlipidemia Obstructive sleep apnea Paroxysmal atrial fibrillation Pulmonary fibrosis Retroperitoneal hematoma Sinus node dysfunction SVT (supraventricular tachycardia) Home Medications rosuvastatin 5 mg tablet (Crestor) 5 mg PO QDAY cholesterol 07/04/17 [History Last Taken 03/28/23] cholecalciferol (vitamin D3) 25 mcg (1,000 unit) tablet 25 mcg PO DAILY supplement 05/22/21 [History Last Taken 03/28/23] guaifenesin 600 mg tablet, extended release 12 hr (Mucinex) 600 mg PO BID cough 05/22/21 [History Last Taken 04/01/23] tamsulosin 0.4 mg capsule (Flomax) 0.8 mg PO QHS BPH 05/22/21 [History Last Taken 03/31/23] metoprolol succinate 25 mg tablet,extended release 24 hr 25 mg PO DAILY AFIB 06/27/21 [History Last Taken 04/01/23] nitroglycerin 0.4 mg sublingual tablet 0.4 mg sublingual Q5M PRN CP 06/27/21 [History Last Taken Unknown] cyanocobalamin (vitamin B-12) 1,000 mcg/mL injection kit 100 mcg IM QMONTH supplement 03/29/23 [History Last Taken Unknown] dofetilide 250 mcg capsule 250 mcg PO Q12H afib 03/29/23 [History Last Taken 04/01/23] duloxetine 60 mg capsule,delayed release See Rx Instructions PO DAILY mood 03/29 [History Last Taken 03/28/23] empagliflozin 25 mg tablet (Jardiance) 12.5 mg PO DAILY heart 03/29/23 [History Last Taken 03/28/23] finasteride 5 mg tablet 5 mg PO DAILY bph 03/29/23 [History Last Taken 03/28/23] levalbuterol HCl 0.63 mg/3 mL solution for nebulization 0.63 mg inhalation TID copd 03/29/23 [History Last Taken 04/01/23] midodrine 5 mg tablet 5 mg PO TID blood pressure 03/29/23 [History Last Taken 04/01/23] pantoprazole 40 mg tablet,delayed release 40 mg PO BID GERD 03/29/23 [History Last Taken Unknown] vit C 250 mg-vit E 200 unit-zinc ox 12.5 ju-xwnnuk-ubmvha-zeax capsule (ICaps AREDS2) 1 cap PO DAILY supplement 03/29/23 [History Last Taken 03/28/23] acetaminophen 325 mg tablet 650 mg (2 x 325 mg) PO Q4H PRN PRN Fever, pain 1- 12/23 #1 TAB 04/01/23 [Rx Last Taken 03/30/23] amoxicillin 500 mg-potassium clavulanate 125 mg tablet (Augmentin) 1 tab PO TID Antibiotic #21 tabs 04/01/23 [Rx Last Taken Unknown] budesonide 0.5 mg/2 mL suspension for nebulization 0.5 mg (2 mL) inhalation BID.RT Asthma #0 mL 04/01/23 [Rx Last Taken 04/01/23] hydrocodone-acetaminophen 5-325mg 5mg-325mg 2 tab PO Q6H PRN PRN Pain Score 1-10 3 days #12 tabs 04/01/23 [Rx Last Taken 04/01/23] lorazepam 0.5 mg tablet 0.5 mg PO QHS Anxiety #5 tabs 04/01/23 [Rx Last Taken 03/31/23] menthol 0.44 %-zinc oxide 20.6 % topical ointment (Calmoseptine) 1 applic topical 4X/DAY PRN skin breakdown/irritation #0 grams 04/01/23 [Rx Last Taken Unknown] methocarbamol 750 mg tablet 750 mg PO TID Muscle Relaxer #1 TAB 04/01/23 [Rx Last Taken Unknown] Allergy/AdvReac Type Severity Reaction Status Date / Time tramadol Allergy Unknown PT UNSURE Verified 04/02/23 01:04 OF REACTION Family History Mother , Age 64 from Emphysema COPD (chronic obstructive pulmonary disease) Blood disorder Father No problems noted. Surgical History History of ankle surgery History of appendectomy History of back surgery History of inguinal hernia repair History of left heart catheterization (05/27/21) History of tonsillectomy History of umbilical hernia repair S/P ablation of atrial fibrillation Social History household members: spouse housing: house Smoking Status: Former smoker how long ago did patient quit smokin years ago alcohol intake: current alcohol intake frequency: holidays/special occasions only substance use type: does not use caffeine: Yes Type: coffee Number of servings: 2 ROS Constitutional Constitutional: Denies chills, fever(s) or weight gain ENT HEENT: Denies headache(s), nasal congestion or nasal discharge Cardiovascular Cardiovascular: Denies chest pain or palpitations Respiratory/Chest Respiratory/Chest: Denies cough, excessive phlegm production or shortness of breath with exertion Gastrointestinal Gastrointestinal: Denies abdominal pain, nausea or vomiting Genitourinary Genitourinary: Denies dysuria Musculoskeletal Musculoskeletal: Denies joint pain or joint swelling Integumentary Integumentary: Denies rash or wounds Neurologic Neurologic: Denies focal weakness, numbness or tingling Psychiatric Psychiatric: Denies anxiety, auditory hallucinations, depression, homicidal ideation or suicidal ideation Physical Exam Const alert General Appearance: cooperative HEENT normocephalic Eyes PERRL and EOMs intact bilaterally Neck supple, no JVD and no carotid bruits Resp normal respiratory effort, normal air movement and clear to auscultation bilaterally Cardio regular rate and regular rhythm GI normal to inspection, nondistended, normoactive bowel sounds, non-tender and non-distended GI Narrative: LLQ abdominal pain mild. Palpation: tender LLQ Extremity normal capillary refill General Extremity: Negative for edema Skin no rashes or lesions noted General Skin Exam: no breakdown Psych affect normal Appearance: appropriate Results Lab / Micro Data 04/02/23 05:32 04/02/23 05:32 Assessment & Plan Assessment/Plan (1) Debility: (2) Atrial fibrillation with RVR: (3) Acute diverticulitis: (4) Retroperitoneal bleed: (5) COPD (chronic obstructive pulmonary disease): (6) Anxiety: (7) Hyperlipidemia: (8) Depression: (9) GERD (gastroesophageal reflux disease): (10) BPH (benign prostatic hyperplasia): (11) Coronary artery disease: PLAN: Plan 82 year old male with below past medical history hospitalized for acute diverticulitis, complicated by afib with RVR, retroperitoneal bleed, admitted to TCU with debility, here for rehabilitation, strengthening, prior to discharge home with . * Debility - PT/OT. * Dysphagia - ST. * Pain - Tylenol 1000mg q6 prn pain (1-3), [place] 5/325mg 1 tab q4 prn pain (4- 10). * Bowel - Monitor, diarrhea. * Adult immunization - Administer pneumonia vaccine, covid vaccine, flu vaccine as appropriate. * DVT prophylaxis - Hold, retroperitoneal bleed. * COPD - Budesonide 0.5mg neb bid, Albuterol 2.5mg neb tidrt. * Diverticulitis - Augmentin 500mg tid thru 04/08/2023. * Hyperlipidemia - Atorvastatin 10mg qhs. * Atrial fibrillation - Metoprolol succinate 25mg daily, Tikosyn 250mcg bid, Hemoglobin 9.5, increasing, restart Eliquis 5mg bid, monitor cbcd. * Depression - Duloxetine 60mg daily, stable chronic residential use, GDR not recommended. * Coronary artery disease - Metoprolol succinate 25mg daily, Jardiance 12.5mg daily, NTG 0.4mg sl q5m prn. * BPH - Finasteride 5mg daily, Tamsulosin 0.8mg daily. * Anxiety - Lorazepam 0.5mg qhs, stable chronic residential use, GDR not recommended. * Skin irritation - Calmoseptine topical 4x/day prn. * Neck pain - Methocarbamol 750mg tid, Arthritis compound cream 2 clicks bid. * Orthostatic hypotension - Midodrine 5mg tidcm. * Macular degeneration - Healthy Eyes 1 cap daily. * GERD - Pantoprazole 40mg bid.
[2023-04-01 20:00] VITALS: O2SAT 91; O2SAT 95
--- NOTE | 2023-04-01 21:22 | CPS ---
set up pt own cpap machine in room
[2023-04-01] MEDS: LORazepam 0.5 MG Tablet PO (22:41)
[2023-04-01] MEDS: Dofetilide 250 MCG Capsule PO (22:52)
[2023-04-01] MEDS: Methocarbamol 750 MG Tablet PO (22:52)
[2023-04-01] MEDS: Amox/Clavulanate 500 MG Tablet PO (22:52)
[2023-04-01] MEDS: Pantoprazole Sodium 40 MG Tablet PO (22:52)
[2023-04-01] MEDS: Tamsulosin HCl 0.4 MG Capsule 0.800000000000000044 MG PO (22:53)
[2023-04-01] MEDS: Atorvastatin Calcium 10 MG Tablet PO (22:53)
--- NOTE | 2023-04-02 00:38 | CPS ---
RT waited for pharmacy to release pts Xopenex 0.63 Pharmacy was called again. med not available.
[2023-04-02 05:40] LABS: Absolute Lymphocyte Count 0.96 X10^3/uL (0.83-4.51); Absolute Neutrophil Count 6.9 X10^3/uL (2.0-7.7); Basophil# 0.11 X10^3/uL; Basophil% 1.2 % (0-1); Eosinophil# 0.22 X10^3/uL; Eosinophils% 2.3 % (0-5); Hematocrit 30.2 % (40-54); Hemoglobin 9.5 g/dL (13.0-16.5); Lymphocyte # 0.96 X10^3/ul (0.83-4.51); Lymphocyte % 10.1 % (19-41); Mean Corp Hgb Conc 31.5 g/dL (32-36); Mean Corpuscular Hgb 30.4 pg (27.0-32.0); Mean Corpuscular Volume 96.8 fL (80-94); Mean Platelet Vol. 8.8 fl (6.2-12.0); Monocyte# 1.12 X10^3/uL; Monocyte% 11.7 % (0-10); NRBC Flagged by Analyzer 0 % (0-5); Neutrophil # 6.89 X10^3/uL (2.7-7.7); Neutrophil % 72.1 % (47-70); Platelet Count 329 K/mm3 (150-450); RBC Distribution Width CV 14.7 % (11.6-14.6); RBC Distribution Width SD 51.8 fl (35.1-43.9); Red Blood Count 3.12 M/mm3 (4.6-6.2); White Blood Count 9.6 K/mm3 (4.4-11.0)
[2023-04-02] MEDS: Methocarbamol 750 MG Tablet PO ×3 (05:55→21:20)
[2023-04-02] MEDS: Amox/Clavulanate 500 MG Tablet PO ×3 (05:55→21:17)
[2023-04-02 06:07] LABS: AST(SGOT) 19 U/L (15-37); Alanine Aminotransfer ALT/SGPT 20 U/L (16-61); Albumin, Serum 2.8 g/dL (3.2-5.0); Alkaline Phosphatase 78 U/L (45-117); Anion Gap 4 (5-15); BUN 7 mg/dL (7-18); BUN/Creat Ratio 8.7 RATIO (10-20); Bilirubin, Direct 0.44 mg/dL (0.00-0.30); Calcium,Total 8.7 mg/dL (8.5-10.1); Chloride 107 mmol/L (98-107); Creatinine, Serum 0.81 mg/dL (0.70-1.30); EST Glomerular Filtration Rate 97 mL/min (>60); Est Glom Filt Rate - Afr Amer 117 mL/min (>60); Estimated Creatinine Clearance 65.68 ml/min; Globulin 3.4 g/dL (2.2-4.2); Glucose 115 mg/dL (74-106); Potassium 4.5 mmol/L (3.5-5.1); Protein, Total 6.2 g/dL (6.4-8.2); Sodium Level 137 mmol/L (136-145)
[2023-04-02 06:26] VITALS: O2SAT 92
[2023-04-02 07:55] VITALS: PULSE 82; RESP 19
[2023-04-02] MEDS: levalbuterol HCL 0.63 MG/3 ML VIAL.NEB 0.630000000000000004 MG INHALATION ×2 (07:55→16:07)
[2023-04-02] MEDS: Budesonide Respules 0.5 MG/2 ML AMPUL.NEB. INHALATION (08:00)
[2023-04-02] MEDS: HYDROcodone Bitartrate/Apap 5/325 Tablet PO ×2 (08:30→12:33)
[2023-04-02] MEDS: Empagliflozin 25 MG Tablet 12.5 MG PO (09:05)
[2023-04-02] MEDS: Multivitamin (Healthy Eyes) Capsule 1 CAP PO (09:05)
[2023-04-02] MEDS: Finasteride 5 MG Tablet PO (09:06)
[2023-04-02] MEDS: Pantoprazole Sodium 40 MG Tablet PO ×2 (09:06→21:20)
[2023-04-02 09:07] VITALS: BP 93/55; PULSE 94
[2023-04-02] MEDS: Dofetilide 250 MCG Capsule PO ×2 (09:07→21:20)
[2023-04-02] MEDS: Midodrine HCl 5 MG Tablet PO ×3 (09:07→17:28)
[2023-04-02] MEDS: Metoprolol(XL)Succ 25 MG Tablet PO (09:07)
[2023-04-02] MEDS: Arthritis Pain Compound 60 CLICK TUBE TOPICAL ×2 (09:10→21:16)
[2023-04-02] MEDS: APIXABAN 5 MG TABLET PO ×2 (09:10→21:17)
[2023-04-02] MEDS: DULoxetine Hcl 60 MG Capsule PO (09:11)
[2023-04-02] MEDS: Tuberculin,Purif.prot.deriv. 50 TU/ML Vial 0.100000000000000006 ML ID (09:16)
[2023-04-02] MEDS: Menthol/Lanolin/Calamine/Znox 113 GM Tube 1 APPLIC TOPICAL ×2 (09:18→21:29)
[2023-04-02] MEDS: Petrolatum 33% Tube 1 APPLIC TOPICAL ×2 (09:19→21:24)
[2023-04-02] MEDS: Miconazole Nitrate 43 GM Bottle 1 APPLIC TOPICAL ×2 (09:19→21:28)
[2023-04-02] MEDS: Acetaminophen 500 MG Tablet 1000 MG PO (11:21)
--- NOTE | 2023-04-02 14:10 | NURSING ---
Called PCP to check on last Vit B injection. They confirmed he had last injection on 02/24/23, and to go ahead and give dose now. He gets 1000mcg monthly. Left note for Dr. Shah.
--- NOTE | 2023-04-02 14:18 | NURSING ---
Family request Dr. Shah resume Eliquis for patient at this time. NO for Eliquis placed for 04/02/23
--- NOTE | 2023-04-02 14:44 | CASEMGMT ---
Social Work Met with patient to complete initial assessment. Introduced self and role. Verified contacts. Patient confirmed code status as full code. SW requested family provide copies of pt's advanced directives to place on file. Educated to [facility] insurance with [employer] 04/03 and continued stay is not guaranteed with each review. Pt's goal is to return home with and support of 4 daughters at [facility]. Pt is requesting medical alert resources. SW to provide prior to DC. SW will continue to follow for DC planning. MACARIO CarreonW
--- NOTE | 2023-04-02 15:23 | CHAPLAIN ---
Type of Pastoral Visit _x__ Initial Visit ___ Follow-up Visit ___ On-call Visit ___ General Patient Visit ___ Spiritual Assessment ___ Family Conference ___ Bereavement ___ Rapid Response ___ Code Blue ___ Other (describe below) Pastoral Care Referral From _x Patient __ Family ___ Nurse ___ Physician ___ Asbestos Worker Helper ___ Corporate Training Manager ___ Other (describe below) Sacrament/Intervention _x__ Active listening ___ Anointing ___ Pentecostal ___ Bereavement ___ Communion ___ Nannette exploration ___ _x__ Life review _x__ Prayer ___ Reconciliation ___ Sacrament of Sick _x__ Supportive presence ___ Wedding ___ Other (describe below) Pastoral Comments patient talks about his health situation and repeatedly states that I don't know why this is happening or what causes this ; pt also speaks of his that was a former patient and how she is doing physically now; pt welcomes casual conversation, life review, and a prayer
--- NOTE | 2023-04-02 15:49 | PCM.PN.DRR ---
Documented by User: Nydia Kulkarni 04/02/23 16:32 TCU RX Drug Regimen Review Subjective/Objective Subjective/Objective: Subjective: TCU Admission. 82 YOM presented to the ER with palpitations. Hospitalized for acute diverticulitis, complicated by afib with RVR, retroperitoneal bleed. Admitted to TCU with debility for strengthening and rehabilitation. Objective: Allergies tramadol Allergy (Unknown, Verified 04/02/23 01:04) PT UNSURE OF REACTION pt and daughter unsure of reaction Current Medications Generic Name Dose Route Start Last Admin Trade Name Freq PRN Reason Stop Dose Admin Acetaminophen 1,000 mg 04/01/23 19:56 04/02/23 11:21 Acetaminophen 500 Mg Tablet PO 1,000 mg Q6H PRN PRN Administration Pain Score 1-3 Hydrocodone Bitart/Acetaminophen 1 tablet 04/02/23 07:39 04/02/23 12:33 Hydrocodone Bitartrate/Apap 5/325 Tablet PO 1 tablet Q4H PRN PRN Administration Pain Score 4-10 Amoxicillin/Clavulanate Potassium 500 mg 04/01/23 22:00 04/02/23 15:04 Amox/Clavulanate 500 Mg Tablet PO 04/08/23 14:01 500 mg TID GIOVANNI Administration Apixaban 5 mg 04/02/23 10:00 04/02/23 09:10 Apixaban 5 Mg Tablet PO 5 mg BID GIOVANNI Administration Atorvastatin Calcium 10 mg 04/01/23 22:00 04/01/23 22:53 Atorvastatin Calcium 10 Mg Tablet PO 10 mg QHS GIOVANNI Administration Budesonide 0.5 mg 04/01/23 18:45 04/02/23 08:00 Budesonide Respules 0.5 Mg/2 Ml Ampul.Neb. INHALATION 0.5 mg BID.RT GIOVANNI Administration Calamine/Phenol 1 applic 04/01/23 18:43 Menthol/Lanolin/Calamine/Znox 113 Gm Tube TOPICAL 4X/DAY PRN skin breakdown/irritation Protocol Calamine/Phenol 1 applic 04/02/23 10:00 04/02/23 09:18 Menthol/Lanolin/Calamine/Znox 113 Gm Tube TOPICAL 1 applic BID GIOVANNI Administration Protocol Compound Med 2 click 04/02/23 10:00 04/02/23 09:10 Arthritis Pain Compound 60 Click Tube TOPICAL 2 click BID GIOVANNI Administration Protocol Dofetilide 250 mcg 04/01/23 22:00 04/02/23 09:07 Dofetilide 250 Mcg Capsule PO 250 mcg BID GIOVANIN Administration Duloxetine HCl 60 mg 04/02/23 10:00 04/02/23 09:11 Duloxetine Hcl 60 Mg Capsule PO 60 mg DAILY GIOVANNI Administration Empagliflozin 12.5 mg 04/02/23 10:00 04/02/23 09:05 Empagliflozin 25 Mg Tablet PO 12.5 mg DAILY GIOVANNI Administration Finasteride 5 mg 04/02/23 10:00 04/02/23 09:06 Finasteride 5 Mg Tablet PO 5 mg DAILY GIOVANNI Administration Levalbuterol HCl 0.63 mg 04/01/23 22:00 04/02/23 07:55 Levalbuterol Hcl 0.63 Mg/3 Ml Vial.Neb INHALATION 0.63 mg TID.RT GIOVANNI Administration Lorazepam 0.5 mg 04/01/23 22:00 04/01/23 22:41 Lorazepam 0.5 Mg Tablet PO 0.5 mg QHS GIOVANNI Administration Methocarbamol 750 mg 04/01/23 22:00 04/02/23 15:04 Methocarbamol 750 Mg Tablet PO 750 mg TID GIOVANNI Administration Metoprolol Succinate 25 mg 04/02/23 10:00 04/02/23 09:07 Metoprolol(Xl)Succ 25 Mg Tablet PO 25 mg DAILY GIOVANNI Administration Protocol Miconazole Nitrate 1 applic 04/02/23 10:00 04/02/23 09:19 Miconazole Nitrate 43 Gm Bottle TOPICAL 1 applic BID GIOVANNI Administration Protocol Midodrine 5 mg 04/02/23 07:45 04/02/23 12:36 Midodrine Hcl 5 Mg Tablet PO 5 mg TIDCM GIOVANNI Administration Multi-Ingredient Cream 1 applic 04/02/23 10:00 04/02/23 09:19 Petrolatum 33% Tube TOPICAL 1 applic BID [facility] Administration Protocol Multivitamins/Minerals 1 cap 04/02/23 10:00 04/02/23 09:05 Multivitamin (Healthy Eyes) Capsule PO 1 cap DAILY GIOVANNI Administration Nitroglycerin 0.4 mg 04/01/23 19:31 Nitroglycerin (Inpatient Use) 0.4 Mg Tab.Subl SL Q5M PRN CARDIAC/CHEST PAIN Pantoprazole Sodium 40 mg 04/01/23 22:00 04/02/23 09:06 Pantoprazole Sodium 40 Mg Tablet PO 40 mg BID GIOVANNI Administration Sodium Chloride 10 - 40 ml 04/02/23 04:19 0.9% Saline Lock 10 Ml Syringe IV UD PRN SALINE FLUSH Tamsulosin HCl 0.8 mg 04/01/23 22:00 04/01/23 22:53 Tamsulosin Hcl 0.4 Mg Capsule PO 0.8 mg QHS GIOVANNI Administration Tuberculin PPD 0.1 ml 04/09/23 10:00 Tuberculin,Purif.Prot.Deriv. 50 Tu/Ml Vial ID 04/09/23 10:01 X1 ONE Problem List (Updated 04/01/23 @ 19:[address] Parrish Shah MD) Coronary artery disease (Acute) BPH (benign prostatic hyperplasia) (Acute) GERD (gastroesophageal reflux disease) (Acute) Depression (Acute) Anxiety (Acute) Retroperitoneal bleed (Acute) Acute diverticulitis (Acute) Atrial fibrillation with RVR (Acute) Debility (Acute) COPD (chronic obstructive pulmonary disease) (Chronic) Hyperlipidemia (Chronic) Vital Signs Temp Pulse Resp BP Pulse Ox O2 Del Method 97.3 F L 94 19 H 93/55 L 92 Room Air 04/01/23 18:58 04/02/23 09:07 04/02/23 07:55 04/02/23 09:07 04/02/23 06:26 04/02/23 07:55 Oxygen Delivery Method Room Air Weight: 77.564 kg Body Mass Index (BMI) 25.9 Sodium 137 mmol/L (136-145) 04/02/23 05:32 Potassium 4.5 mmol/L (3.5-5.1) 04/02/23 05:32 Chloride 107 mmol/L (98-107) 04/02/23 05:32 Carbon Dioxide 26.0 mmol/L (21.0-32.0) 04/02/23 05:32 Anion Gap 4 (5-15) L 04/02/23 05:32 BUN 7 mg/dL (7-18) 04/02/23 05:32 Creatinine 0.81 mg/dL (0.70-1.30) 04/02/23 05:32 Est GFR (MDRD) Af Amer 117 mL/min (>60) 04/02/23 05:32 Est GFR (MDRD) Non-Af 97 mL/min (>60) 04/02/23 05:32 BUN/Creatinine Ratio 8.7 RATIO (10-20) L 04/02/23 05:32 Glucose 115 mg/dL (74-106) H 04/02/23 05:32 Assessment/Plan: 1. Pain/neck pain: acetaminophen 1000mg PO Q6H PRN pain 1-3, [place] 5/325mg 1T PO Q4H PRN pain 4-10, methocarbamol 750mg PO TID and arthritis compound 2 clicks topical BID. Resident has had 1 dose of acetaminophen (pain of 2 in neck/shoulder) and 2 doses of [place] (pain of 4 and 9 in back/neck). Please continue to monitor for increased pain, PRN usage, constipation, anticholinergic side effects (BEERs medication for methocarbamol) and respiratory depression. 2. Diverticulitis: Augmentin 500mg PO TID thru 04/08/23. Please continue to monitor for S/S of infection, diarrhea and renal function. 3. Atrial fibrillation/CAD: metoprolol succinate 25mg PO daily, dofetilide 250mcg PO BID, empagliflozin 12.5mg PO daily, apixaban 5mg PO BID and nitroglycerin 0.4mg SL Q5M PRN chest pain. No PRN doses have been given. Please continue to monitor BP (last 95/55), HR (last 94), S/S of hypoglycemia, renal function (BEERs medication for dofetilide), QTc (last 458 ms 03/31 and 452 ms 03/30, black box warning), S/S of bleeding, hemoglobin (last 9.5g/dL), chest pain and PRN usage. Please consider adding hold parameters for metoprolol as the last BP was 95/55. Thanks. 4. Orthostatic hypotension: midodrine 5mg PO TIDCM. Please continue to monitor BP (last 95/55). 5. COPD: budesonide 0.5mg inhalation BID and levalbuterol 0.63mg inhalation TID.RT. Please continue to monitor for shortness of breath, HR, anxiety, and thrush. Please rinse mouth with water and spit following budesonide administration. 6. Hyperlipidemia: atorvastatin 10mg PO QHS. Please consider ordering a lipid panel as the last panel is from 11/2019. Thanks. Please continue to monitor LFTs (lat 04/02/23) and muscle pain. 7. BPH: finasteride 5mg PO daily and tamsulosin 0.8mg PO daily. Please continue to monitor for S/S of BPH, rash and BP (tamsulosin could be contributing to low blood pressures). 8. GERD: pantoprazole 40mg PO BID. Please continue to monitor for S/S of GERD, diarrhea (BEERs medication, pt having diarrhea but it seems to be associated with dofetilide) and magnesium (last 03/29/23). 9. Macular degeneration: healthy eyes 1 capsule by mouth once daily. Please continue to monitor. Assessment/Plan for indications treated with psychotropic medications: 1. Depression: duloxetine 60mg PO daily. Please see physician note regarding GDR. Please continue to monitor for suicidal ideation (black box warning), sodium (last 137mmol/L), falls/fractures (BEERs medication) and renal function (BEERs medication). 2. Anxiety: lorazepam 0.5mg PO QHS. Please see physician note regarding GDR. Please continue to monitor for dementia/delirium (BEERs medication), falls/fractures (BEERs medication) and confusion. Medical chart and medication regimen reviewed. The following medication irregularities or issues were identified: 1. Metoprolol succinate 25mg PO daily. Please consider adding hold parameters for metoprolol as the last BP was 95/55. Thanks. 2. Atorvastatin 10mg PO QHS. Please consider ordering a lipid panel as the last panel is from 11/2019. Thanks. Date Date of Note:: 04/02/23 Documented by User: Dr. Parrish Shah MD 04/02/23 16:42 TCU RX Drug Regimen Review Provider Comments Provider responsibility Provider Comments to Recommendations by Pharmacy: Agree
[2023-04-02 16:06] VITALS: PULSE 78; RESP 19
[2023-04-02] MEDS: Cyanocobalamin (B12) 1,000 MCG/ML Vial 1000 MCG IM (18:28)
[2023-04-02] MEDS: LORazepam 0.5 MG Tablet PO (21:17)
[2023-04-02] MEDS: Tamsulosin HCl 0.4 MG Capsule 0.800000000000000044 MG PO (21:18)
[2023-04-02] MEDS: Atorvastatin Calcium 10 MG Tablet PO (21:19)
[2023-04-03] MEDS: Methocarbamol 750 MG Tablet PO ×3 (05:48→22:31)
[2023-04-03] MEDS: Amox/Clavulanate 500 MG Tablet PO ×3 (05:48→22:31)
[2023-04-03 06:00] LABS: Absolute Lymphocyte Count 0.82 X10^3/uL (0.83-4.51); Absolute Neutrophil Count 8.2 X10^3/uL (2.0-7.7); Eosinophil# 0.24 X10^3/uL; Eosinophils% 2.3 % (0-5); Hematocrit 28.8 % (40-54); Hemoglobin 9.4 g/dL (13.0-16.5); Lymphocyte # 0.82 X10^3/ul (0.83-4.51); Lymphocyte % 7.8 % (19-41); Mean Corp Hgb Conc 32.6 g/dL (32-36); Mean Corpuscular Hgb 31.6 pg (27.0-32.0); Monocyte# 0.98 X10^3/uL; Monocyte% 9.3 % (0-10); NRBC Flagged by Analyzer 0 % (0-5); Neutrophil # 8.16 X10^3/uL (2.7-7.7); Neutrophil % 77.6 % (47-70); Platelet Count 332 K/mm3 (150-450); RBC Distribution Width CV 14.6 % (11.6-14.6); RBC Distribution Width SD 51.8 fl (35.1-43.9); Red Blood Count 2.97 M/mm3 (4.6-6.2); White Blood Count 10.5 K/mm3 (4.4-11.0)
[2023-04-03 06:32] LABS: Cholesterol 147 mg/dL (200); High Density Lipoprotein 30 mg/dL; Triglycerides 140 mg/dL; Very Low Density Lipoprotein 28 mg/dL (5-40)
[2023-04-03 07:56] VITALS: PULSE 99; RESP 18; O2SAT 92
[2023-04-03] MEDS: levalbuterol HCL 0.63 MG/3 ML VIAL.NEB 0.630000000000000004 MG INHALATION ×3 (07:56→19:18)
[2023-04-03] MEDS: Budesonide Respules 0.5 MG/2 ML AMPUL.NEB. INHALATION ×2 (07:56→19:18)
[2023-04-03] MEDS: APIXABAN 5 MG TABLET PO ×2 (08:15→22:30)
[2023-04-03] MEDS: Empagliflozin 25 MG Tablet 12.5 MG PO (08:15)
[2023-04-03 08:16] VITALS: BP 101/61; PULSE 69
[2023-04-03] MEDS: Dofetilide 250 MCG Capsule PO ×2 (08:16→22:32)
[2023-04-03] MEDS: Metoprolol(XL)Succ 25 MG Tablet PO (08:16)
[2023-04-03] MEDS: Pantoprazole Sodium 40 MG Tablet PO ×2 (08:16→22:30)
[2023-04-03] MEDS: Midodrine HCl 5 MG Tablet PO ×3 (08:17→17:09)
[2023-04-03] MEDS: Multivitamin (Healthy Eyes) Capsule 1 CAP PO (08:17)
[2023-04-03] MEDS: Finasteride 5 MG Tablet PO (08:17)
[2023-04-03] MEDS: DULoxetine Hcl 60 MG Capsule PO (08:17)
[2023-04-03] MEDS: Arthritis Pain Compound 60 CLICK TUBE TOPICAL ×2 (08:17→22:29)
[2023-04-03] MEDS: Menthol/Lanolin/Calamine/Znox 113 GM Tube 1 APPLIC TOPICAL ×2 (08:20→22:43)
[2023-04-03] MEDS: Petrolatum 33% Tube 1 APPLIC TOPICAL ×2 (08:21→22:42)
[2023-04-03] MEDS: Miconazole Nitrate 43 GM Bottle 1 APPLIC TOPICAL ×2 (08:21→22:43)
[2023-04-03] MEDS: HYDROcodone Bitartrate/Apap 5/325 Tablet PO (09:59)
[2023-04-03] MEDS: 0.9% Saline Lock 10 ML Syringe IV (12:29)
[2023-04-03 13:45] VITALS: BP 93/59; PULSE 88; RESP 16; TEMP 36.5; O2SAT 93
[2023-04-03 14:16] VITALS: PULSE 96; RESP 18
--- NOTE | 2023-04-03 14:41 | NURSING ---
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 He has his protestant coming in along with family and friends. He watches tv, reads and will work on word search puzzles. He welcomes visits from the ict trainer and therapy dog when available. Staff will remind him of daily activities and respect his right to say no.
--- NOTE | 2023-04-03 15:05 | NS ---
MST score = 1
[2023-04-03 19:18] VITALS: PULSE 78; RESP 22
[2023-04-03 22:00] VITALS: PULSE 84; RESP 18; O2SAT 93
[2023-04-03] MEDS: Tamsulosin HCl 0.4 MG Capsule 0.800000000000000044 MG PO (22:29)
[2023-04-03] MEDS: LORazepam 0.5 MG Tablet PO (22:29)
[2023-04-03] MEDS: Atorvastatin Calcium 10 MG Tablet PO (22:29)
[2023-04-04] VITALS (8 sets, daily range): BP systolic 95–102; BP diastolic 58–60; PULSE 80–90; RESP 16–18; TEMP 36.6–36.7; O2SAT 93–98
[2023-04-04] MEDS: Amox/Clavulanate 500 MG Tablet PO ×3 (05:36→22:02)
[2023-04-04] MEDS: Methocarbamol 750 MG Tablet PO ×3 (05:36→22:03)
[2023-04-04] MEDS: levalbuterol HCL 0.63 MG/3 ML VIAL.NEB 0.630000000000000004 MG INHALATION ×3 (06:50→20:35)
[2023-04-04] MEDS: Budesonide Respules 0.5 MG/2 ML AMPUL.NEB. INHALATION ×2 (06:50→20:35)
[2023-04-04 07:43] LABS: Hematocrit 30.4 % (40-54); Hemoglobin 9.7 g/dL (13.0-16.5)
[2023-04-04] MEDS: Metoprolol(XL)Succ 25 MG Tablet PO (08:38)
[2023-04-04] MEDS: Pantoprazole Sodium 40 MG Tablet PO ×2 (08:38→22:03)
[2023-04-04] MEDS: Multivitamin (Healthy Eyes) Capsule 1 CAP PO (08:39)
[2023-04-04] MEDS: DULoxetine Hcl 60 MG Capsule PO (08:39)
[2023-04-04] MEDS: Empagliflozin 25 MG Tablet 12.5 MG PO (08:39)
[2023-04-04] MEDS: APIXABAN 5 MG TABLET PO ×2 (08:39→22:02)
[2023-04-04] MEDS: Dofetilide 250 MCG Capsule PO ×2 (08:40→22:04)
[2023-04-04] MEDS: Arthritis Pain Compound 60 CLICK TUBE TOPICAL ×2 (08:41→22:02)
[2023-04-04] MEDS: Midodrine HCl 5 MG Tablet PO ×3 (08:41→17:28)
[2023-04-04] MEDS: Finasteride 5 MG Tablet PO (08:42)
[2023-04-04] MEDS: Petrolatum 33% Tube 1 APPLIC TOPICAL ×2 (08:42→22:09)
[2023-04-04] MEDS: Menthol/Lanolin/Calamine/Znox 113 GM Tube 1 APPLIC TOPICAL ×2 (08:43→22:08)
[2023-04-04] MEDS: Miconazole Nitrate 43 GM Bottle 1 APPLIC TOPICAL ×2 (08:43→22:10)
--- NOTE | 2023-04-04 19:32 | NURSING ---
+1 pitting edema noted to bilateral lower extremities. cap refill <3sec. No redness/warmth to area. Pt's family states that pt was on diuretic at home, asking if pt needs restarted on home med. Will need follow-up with Dr. Shah
[2023-04-04] MEDS: LORazepam 0.5 MG Tablet PO (22:01)
[2023-04-04] MEDS: Atorvastatin Calcium 10 MG Tablet PO (22:03)
[2023-04-04] MEDS: Tamsulosin HCl 0.4 MG Capsule 0.800000000000000044 MG PO (22:03)
[2023-04-04] MEDS: 0.9% Saline Lock 10 ML Syringe IV (22:09)
[2023-04-05] VITALS (9 sets, daily range): BP systolic 90–105; BP diastolic 53–65; PULSE 78–85; RESP 16–20; TEMP 36.6; O2SAT 94–96
[2023-04-05] MEDS: Amox/Clavulanate 500 MG Tablet PO ×3 (05:53→23:01)
[2023-04-05] MEDS: Methocarbamol 750 MG Tablet PO ×3 (05:53→23:03)
[2023-04-05] MEDS: levalbuterol HCL 0.63 MG/3 ML VIAL.NEB 0.630000000000000004 MG INHALATION ×3 (07:26→21:25)
[2023-04-05] MEDS: Budesonide Respules 0.5 MG/2 ML AMPUL.NEB. INHALATION ×2 (07:26→21:25)
[2023-04-05] MEDS: Arthritis Pain Compound 60 CLICK TUBE TOPICAL ×2 (09:23→22:59)
[2023-04-05] MEDS: Midodrine HCl 5 MG Tablet PO ×3 (09:23→18:17)
[2023-04-05] MEDS: DULoxetine Hcl 60 MG Capsule PO (09:24)
[2023-04-05] MEDS: Menthol/Lanolin/Calamine/Znox 113 GM Tube 1 APPLIC TOPICAL ×2 (09:24→23:02)
[2023-04-05] MEDS: Petrolatum 33% Tube 1 APPLIC TOPICAL ×2 (09:25→23:02)
[2023-04-05] MEDS: APIXABAN 5 MG TABLET PO ×2 (09:25→23:03)
[2023-04-05] MEDS: Multivitamin (Healthy Eyes) Capsule 1 CAP PO (09:25)
[2023-04-05] MEDS: Miconazole Nitrate 43 GM Bottle 1 APPLIC TOPICAL ×2 (09:25→23:07)
[2023-04-05] MEDS: Finasteride 5 MG Tablet PO (09:26)
[2023-04-05] MEDS: Empagliflozin 25 MG Tablet 12.5 MG PO (09:26)
[2023-04-05] MEDS: Pantoprazole Sodium 40 MG Tablet PO ×2 (09:27→23:03)
[2023-04-05] MEDS: Dofetilide 250 MCG Capsule PO ×2 (09:27→23:04)
[2023-04-05] MEDS: Metoprolol(XL)Succ 25 MG Tablet PO (09:27)
--- NOTE | 2023-04-05 17:04 | NURSING ---
Call placed to Dr. Shah. Patient has +2 pitting edema to bilateral lower extremities. Patient was on Bumex 1mg PO daily at home. Medication not ordered. New ordered for Bumex 1mg PO daily, give first dose now and BMP tomorrow morning and the morning after.
[2023-04-05] MEDS: Bumetanide 0.5 MG Tablet 1 MG PO (18:17)
[2023-04-05] MEDS: 0.9% Saline Lock 10 ML Syringe IV (23:00)
[2023-04-05] MEDS: Atorvastatin Calcium 10 MG Tablet PO (23:03)
[2023-04-05] MEDS: Tamsulosin HCl 0.4 MG Capsule 0.800000000000000044 MG PO (23:03)
[2023-04-05] MEDS: LORazepam 0.5 MG Tablet PO (23:07)
[2023-04-06] MEDS: Amox/Clavulanate 500 MG Tablet PO ×3 (05:41→21:24)
[2023-04-06] MEDS: Methocarbamol 750 MG Tablet PO ×3 (05:41→21:34)
[2023-04-06 06:08] VITALS: RESP 16
[2023-04-06 06:10] LABS: Hematocrit 31.4 % (40-54); Hemoglobin 9.8 g/dL (13.0-16.5)
[2023-04-06 06:54] LABS: Anion Gap 6 (5-15); BUN 11 mg/dL (7-18); BUN/Creat Ratio 13.9 RATIO (10-20); Calcium,Total 9.2 mg/dL (8.5-10.1); Chloride 102 mmol/L (98-107); Creatinine, Serum 0.79 mg/dL (0.70-1.30); EST Glomerular Filtration Rate 99 mL/min (>60); Est Glom Filt Rate - Afr Amer 120 mL/min (>60); Glucose 104 mg/dL (74-106); Potassium 3.7 mmol/L (3.5-5.1); Sodium Level 136 mmol/L (136-145)
[2023-04-06] MEDS: HYDROcodone Bitartrate/Apap 5/325 Tablet PO (08:57)
[2023-04-06] MEDS: Dofetilide 250 MCG Capsule PO ×2 (09:00→21:23)
[2023-04-06] MEDS: Pantoprazole Sodium 40 MG Tablet PO ×2 (09:00→21:24)
[2023-04-06] MEDS: Bumetanide 0.5 MG Tablet 1 MG PO (09:00)
[2023-04-06] MEDS: Arthritis Pain Compound 60 CLICK TUBE TOPICAL ×2 (09:00→21:28)
[2023-04-06] MEDS: Finasteride 5 MG Tablet PO (09:01)
[2023-04-06] MEDS: Multivitamin (Healthy Eyes) Capsule 1 CAP PO (09:01)
[2023-04-06] MEDS: Menthol/Lanolin/Calamine/Znox 113 GM Tube 1 APPLIC TOPICAL ×2 (09:02→21:34)
[2023-04-06] MEDS: DULoxetine Hcl 60 MG Capsule PO (09:02)
[2023-04-06] MEDS: APIXABAN 5 MG TABLET PO ×2 (09:02→21:33)
[2023-04-06] MEDS: Miconazole Nitrate 43 GM Bottle 1 APPLIC TOPICAL ×2 (09:02→21:33)
[2023-04-06] MEDS: Midodrine HCl 5 MG Tablet PO ×3 (09:02→17:45)
[2023-04-06] MEDS: Empagliflozin 25 MG Tablet 12.5 MG PO (09:02)
[2023-04-06] MEDS: Petrolatum 33% Tube 1 APPLIC TOPICAL ×2 (09:03→21:28)
[2023-04-06 11:05] VITALS: BP 105/73; PULSE 86
[2023-04-06] MEDS: Metoprolol(XL)Succ 25 MG Tablet PO (11:05)
[2023-04-06] MEDS: Acetaminophen 500 MG Tablet 1000 MG PO (11:05)
[2023-04-06 11:09] VITALS: PULSE 74; RESP 16
[2023-04-06] MEDS: levalbuterol HCL 0.63 MG/3 ML VIAL.NEB 0.630000000000000004 MG INHALATION ×2 (11:19→20:30)
[2023-04-06] MEDS: Budesonide Respules 0.5 MG/2 ML AMPUL.NEB. INHALATION ×2 (11:20→20:30)
[2023-04-06 13:28] VITALS: BP 105/73; PULSE 86; RESP 18; TEMP 36.4; O2SAT 94
[2023-04-06] MEDS: 0.9% Saline Lock 10 ML Syringe IV (14:25)
[2023-04-06 20:30] VITALS: PULSE 80; RESP 18; O2SAT 96
[2023-04-06] MEDS: LORazepam 0.5 MG Tablet PO (21:19)
[2023-04-06] MEDS: Tamsulosin HCl 0.4 MG Capsule 0.800000000000000044 MG PO (21:23)
[2023-04-06] MEDS: Atorvastatin Calcium 10 MG Tablet PO (21:24)
[2023-04-07] MEDS: Amox/Clavulanate 500 MG Tablet PO ×3 (05:23→21:46)
[2023-04-07] MEDS: Methocarbamol 750 MG Tablet PO ×3 (05:23→21:46)
[2023-04-07 06:07] LABS: Anion Gap 7 (5-15); BUN 14 mg/dL (7-18); BUN/Creat Ratio 15.5 RATIO (10-20); Calcium,Total 8.8 mg/dL (8.5-10.1); Chloride 101 mmol/L (98-107); Creatinine, Serum 0.91 mg/dL (0.70-1.30); EST Glomerular Filtration Rate 85 mL/min (>60); Est Glom Filt Rate - Afr Amer 103 mL/min (>60); Estimated Creatinine Clearance 58.46 ml/min; Glucose 118 mg/dL (74-106); Potassium 3.7 mmol/L (3.5-5.1); Sodium Level 136 mmol/L (136-145)
[2023-04-07 06:40] VITALS: PULSE 83; RESP 16; O2SAT 94
[2023-04-07] MEDS: Budesonide Respules 0.5 MG/2 ML AMPUL.NEB. INHALATION ×2 (07:24→20:10)
[2023-04-07] MEDS: levalbuterol HCL 0.63 MG/3 ML VIAL.NEB 0.630000000000000004 MG INHALATION ×2 (07:25→20:10)
[2023-04-07 07:27] VITALS: PULSE 88; RESP 18; O2SAT 95
[2023-04-07] MEDS: DULoxetine Hcl 60 MG Capsule PO (09:03)
[2023-04-07] MEDS: Pantoprazole Sodium 40 MG Tablet PO ×2 (09:03→21:46)
[2023-04-07] MEDS: Dofetilide 250 MCG Capsule PO ×2 (09:03→21:46)
[2023-04-07] MEDS: APIXABAN 5 MG TABLET PO ×2 (09:05→21:46)
[2023-04-07] MEDS: Multivitamin (Healthy Eyes) Capsule 1 CAP PO (09:05)
[2023-04-07] MEDS: Empagliflozin 25 MG Tablet 12.5 MG PO (09:05)
[2023-04-07] MEDS: Bumetanide 0.5 MG Tablet 1 MG PO (09:05)
[2023-04-07] MEDS: Midodrine HCl 5 MG Tablet PO ×3 (09:05→18:03)
[2023-04-07] MEDS: Finasteride 5 MG Tablet PO (09:06)
[2023-04-07] MEDS: Arthritis Pain Compound 60 CLICK TUBE TOPICAL ×2 (09:07→21:46)
[2023-04-07] MEDS: Menthol/Lanolin/Calamine/Znox 113 GM Tube 1 APPLIC TOPICAL ×2 (09:09→21:55)
[2023-04-07] MEDS: Petrolatum 33% Tube 1 APPLIC TOPICAL ×2 (09:11→21:50)
[2023-04-07] MEDS: Miconazole Nitrate 43 GM Bottle 1 APPLIC TOPICAL ×2 (09:11→21:54)
[2023-04-07 09:12] VITALS: PULSE 85
[2023-04-07] MEDS: Metoprolol(XL)Succ 25 MG Tablet PO (09:12)
[2023-04-07 10:00] VITALS: BMI 25.7
[2023-04-07] MEDS: COVID VAC 23-24(12UP)(ANDU)/PF 50 MCG/0.5 ML SYRINGE IM (11:53)
[2023-04-07 13:51] VITALS: BP 99/58; PULSE 85; RESP 18; TEMP 36.6; O2SAT 93
[2023-04-07 14:15] VITALS: PULSE 82; RESP 18
[2023-04-07] MEDS: 0.9% Saline Lock 10 ML Syringe IV (14:38)
--- NOTE | 2023-04-07 17:05 | RAD_ITS ---
STUDY: X-RAY - ABDOMEN/PELVIS REASON FOR EXAM: Male, 82 years old. Nausea,dry heaves. TECHNIQUE: KUB COMPARISON: None. FINDINGS: Normal visualized lung bases. Multiple mildly distended loops of small bowel and colon consistent with ileus. There are small bilateral bowel loops in left upper quadrant demonstrating thickening of the folds consistent with nonspecific enteritis. There is no demonstrated free abdominal air. The visualized liver, spleen and kidneys are grossly normal in size and morphology. Normal soft tissue structures. Lumbar spine demonstrates degenerative changes. RAD/Abdomen Single View IMPRESSION: Mild nonspecific ileus and changes consistent with enteritis. Electronically Signed: Johnie Sanchez MD at 18:07 EST ,
--- NOTE | 2023-04-07 17:45 | CASEMGMT ---
Social Work Met with patient for MDS assessment. PHQ9 screening of the MDS showed a score of 10, falling into the low end of the moderate range of depression. Patient stated there is not much pleasure going on here, and reports has been feeling this way for nearly every day over the last 2 weeks. Patient reports has been in the hospital a lot, and wants to get home. Patient also identified trouble falling and staying asleep as patient's neck hurts, feeling tired, and appetite has been poor. Patient shared that has been dry heaving today, and due to stomach issues has not eaten much. Patient denies feeling depressed and associates symptoms discussed due to physical ailments. Patient denies any thoughts, plans, intent for suicide, nor any history of such. Patient also denies any history of depression or anxiety. Patient denies feeling need for medication or counseling resources. Reports to have supportive family and is looking forward to feeing better and getting home. Enjoys watching tv, but admits has not done much of this, due to feeling tired. Patient with good eye contact, smiled at appropriate times in conversation, and engaged in conversation with this repairer typewriter. Emotional support provided to patient this date. Patient thanked social worker aide for talking this evening. Social work remains available should needs arise. -MANDA Suggs
[2023-04-07 17:52] LABS: Absolute Lymphocyte Count 1.07 X10^3/uL (0.83-4.51); Absolute Neutrophil Count 8.7 X10^3/uL (2.0-7.7); Basophil# 0.13 X10^3/uL; Basophil% 1.1 % (0-1); Eosinophil# 0.19 X10^3/uL; Eosinophils% 1.7 % (0-5); Hematocrit 34.1 % (40-54); Hemoglobin 10.7 g/dL (13.0-16.5); Lymphocyte # 1.07 X10^3/ul (0.83-4.51); Lymphocyte % 9.3 % (19-41); Mean Corp Hgb Conc 31.4 g/dL (32-36); Mean Corpuscular Volume 95.5 fL (80-94); Mean Platelet Vol. 9.2 fl (6.2-12.0); Monocyte% 8.7 % (0-10); NRBC Flagged by Analyzer 0 % (0-5); Neutrophil # 8.74 X10^3/uL (2.7-7.7); Neutrophil % 76.2 % (47-70); Platelet Count 436 K/mm3 (150-450); RBC Distribution Width CV 14.6 % (11.6-14.6); RBC Distribution Width SD 50.9 fl (35.1-43.9); Red Blood Count 3.57 M/mm3 (4.6-6.2); White Blood Count 11.5 K/mm3 (4.4-11.0)
[2023-04-07 18:14] LABS: ALB/GLOB Ratio 0.9 RATIO (0.9-2.4); AST(SGOT) 10 U/L (15-37); Alanine Aminotransfer ALT/SGPT 16 U/L (16-61); Albumin, Serum 3.3 g/dL (3.2-5.0); Alkaline Phosphatase 87 U/L (45-117); Anion Gap 5 (5-15); BUN 15 mg/dL (7-18); BUN/Creat Ratio 14.6 RATIO (10-20); Calcium,Total 9.3 mg/dL (8.5-10.1); Chloride 100 mmol/L (98-107); Creatinine, Serum 1.03 mg/dL (0.70-1.30); EST Glomerular Filtration Rate 73 mL/min (>60); Est Glom Filt Rate - Afr Amer 88 mL/min (>60); Estimated Creatinine Clearance 51.65 ml/min; Globulin 3.7 g/dL (2.2-4.2); Glucose 130 mg/dL (74-106); Potassium 3.8 mmol/L (3.5-5.1); Sodium Level 134 mmol/L (136-145)
[2023-04-07] MEDS: 0.9% Normal Saline (1000mL) 1,000 ML 75 ML IV (18:52)
[2023-04-07 20:10] VITALS: PULSE 80; RESP 18; O2SAT 96
[2023-04-07 21:46] LABS: Bacteria 0 SEEN /hpf (None Seen); Mucous, Urine 0 SEEN /hpf (<or=2+); Red Blood Cells-Urine 0 SEEN /hpf (0-5); Squamous Epithelial Cells - UA 0 SEEN /hpf (0-5); White Blood Cells 0 SEEN /hpf (0-5)
[2023-04-07] MEDS: LORazepam 0.5 MG Tablet PO (21:46)
[2023-04-07] MEDS: Tamsulosin HCl 0.4 MG Capsule 0.800000000000000044 MG PO (21:46)
[2023-04-07 21:47] LABS: Color, Urine Yellow (Yellow); Glucose, Dipstick 1000 mg/dl (Normal); Ketone-Dipstick Negative (Negative); Leukocyte Esterase-Dipstick Negative /ul (Negative); Nitrite-Dipstick Negative (Negative); Occult Blood-Urine Negative /ul (Negative); Protein-Dipstick Negative (Negative); Specific Gravity, Urine 1.015 (1.002-1.030); Urine Bilirubin Dipstick Negative (Negative); Urine Clarity Clear (Clear); Urine Urobilinogen 1 mg/dl (Normal)
[2023-04-07] MEDS: Atorvastatin Calcium 10 MG Tablet PO (21:48)
[2023-04-08] VITALS (8 sets, daily range): BP systolic 94–106; BP diastolic 52–60; PULSE 77–87; RESP 16–20; TEMP 36.3; O2SAT 94
[2023-04-08] MEDS: HYDROcodone Bitartrate/Apap 5/325 Tablet PO (05:02)
[2023-04-08] MEDS: Methocarbamol 750 MG Tablet PO ×3 (05:02→22:14)
[2023-04-08] MEDS: Amox/Clavulanate 500 MG Tablet PO ×2 (05:02→13:25)
[2023-04-08 05:40] LABS: Absolute Lymphocyte Count 1.01 X10^3/uL (0.83-4.51); Absolute Neutrophil Count 7.8 X10^3/uL (2.0-7.7); Basophil# 0.13 X10^3/uL; Basophil% 1.2 % (0-1); Eosinophil# 0.21 X10^3/uL; Hematocrit 31.6 % (40-54); Hemoglobin 9.8 g/dL (13.0-16.5); Lymphocyte # 1.01 X10^3/ul (0.83-4.51); Lymphocyte % 9.5 % (19-41); Mean Corpuscular Hgb 29.7 pg (27.0-32.0); Mean Corpuscular Volume 95.8 fL (80-94); Monocyte# 1.06 X10^3/uL; NRBC Flagged by Analyzer 0 % (0-5); Neutrophil % 73.8 % (47-70); Platelet Count 390 K/mm3 (150-450); RBC Distribution Width CV 14.8 % (11.6-14.6); RBC Distribution Width SD 51.5 fl (35.1-43.9); White Blood Count 10.6 K/mm3 (4.4-11.0)
[2023-04-08 06:01] LABS: Anion Gap 5 (5-15); BUN 12 mg/dL (7-18); BUN/Creat Ratio 14.2 RATIO (10-20); Calcium,Total 8.5 mg/dL (8.5-10.1); Chloride 103 mmol/L (98-107); Creatinine, Serum 0.85 mg/dL (0.70-1.30); EST Glomerular Filtration Rate 91 mL/min (>60); Est Glom Filt Rate - Afr Amer 111 mL/min (>60); Estimated Creatinine Clearance 62.59 ml/min; Glucose 108 mg/dL (74-106); Potassium 3.6 mmol/L (3.5-5.1); Sodium Level 136 mmol/L (136-145)
[2023-04-08] MEDS: levalbuterol HCL 0.63 MG/3 ML VIAL.NEB 0.630000000000000004 MG INHALATION ×3 (06:44→20:20)
[2023-04-08] MEDS: Budesonide Respules 0.5 MG/2 ML AMPUL.NEB. INHALATION ×2 (06:44→20:20)
[2023-04-08] MEDS: Midodrine HCl 5 MG Tablet PO ×3 (08:53→16:52)
[2023-04-08] MEDS: APIXABAN 5 MG TABLET PO ×2 (08:54→22:13)
[2023-04-08] MEDS: Multivitamin (Healthy Eyes) Capsule 1 CAP PO (08:54)
[2023-04-08] MEDS: Dofetilide 250 MCG Capsule PO ×2 (08:54→22:14)
[2023-04-08] MEDS: Arthritis Pain Compound 60 CLICK TUBE TOPICAL ×2 (08:54→22:13)
[2023-04-08] MEDS: Empagliflozin 25 MG Tablet 12.5 MG PO (08:54)
[2023-04-08] MEDS: Acetaminophen 500 MG Tablet 1000 MG PO (08:55)
[2023-04-08] MEDS: Finasteride 5 MG Tablet PO (08:55)
[2023-04-08] MEDS: Pantoprazole Sodium 40 MG Tablet PO ×2 (08:55→22:14)
[2023-04-08] MEDS: DULoxetine Hcl 60 MG Capsule PO (08:55)
[2023-04-08] MEDS: Menthol/Lanolin/Calamine/Znox 113 GM Tube 1 APPLIC TOPICAL ×2 (08:56→22:15)
[2023-04-08] MEDS: Miconazole Nitrate 43 GM Bottle 1 APPLIC TOPICAL ×2 (08:56→22:15)
[2023-04-08] MEDS: Petrolatum 33% Tube 1 APPLIC TOPICAL ×2 (08:56→22:15)
--- NOTE | 2023-04-08 08:57 | NURSING ---
Coremaker Floor Note; MDS for 04/08/2023 Complete
--- NOTE | 2023-04-08 09:55 | NURSING ---
Received Verbal Order from Dr. Shah to stop fluids it pt eats all of Breakfast. Order read back. Pt ate 100% and drank 360ml. Fluids Discontinued.
[2023-04-08] MEDS: Metoprolol(XL)Succ 25 MG Tablet PO (10:39)
[2023-04-08] MEDS: proMETHazine 25 MG Tablet PO (12:11)
--- NOTE | 2023-04-08 14:52 | NURSING ---
Pt c/o of feeling constipated. Dr. Shah called and N.O. for Soap Suds enema if not effective 300ml of mag citrate. Updated pt and pt refused soap suds enema updated Dr. Shah and Mag citrate ordered.
[2023-04-08] MEDS: Magnesium Citrate 300 ML PO (15:18)
[2023-04-08] MEDS: Tamsulosin HCl 0.4 MG Capsule 0.800000000000000044 MG PO (22:13)
[2023-04-08] MEDS: LORazepam 0.5 MG Tablet PO (22:13)
[2023-04-08] MEDS: 0.9% Saline Lock 10 ML Syringe IV (22:13)
[2023-04-08] MEDS: Atorvastatin Calcium 10 MG Tablet PO (22:14)
[2023-04-09] VITALS (7 sets, daily range): BP systolic 92–101; BP diastolic 44–64; PULSE 74–87; RESP 16–20; TEMP 36.9; O2SAT 91–93
[2023-04-09 06:04] LABS: Absolute Lymphocyte Count 0.87 X10^3/uL (0.83-4.51); Absolute Neutrophil Count 4.9 X10^3/uL (2.0-7.7); Basophil% 1.4 % (0-1); Eosinophil# 0.14 X10^3/uL; Eosinophils% 1.9 % (0-5); Hematocrit 31.2 % (40-54); Hemoglobin 9.5 g/dL (13.0-16.5); Lymphocyte # 0.87 X10^3/ul (0.83-4.51); Lymphocyte % 11.9 % (19-41); Mean Corp Hgb Conc 30.4 g/dL (32-36); Mean Corpuscular Hgb 29.9 pg (27.0-32.0); Mean Corpuscular Volume 98.1 fL (80-94); Mean Platelet Vol. 9.2 fl (6.2-12.0); Monocyte# 1.05 X10^3/uL; Monocyte% 14.4 % (0-10); NRBC Flagged by Analyzer 0 % (0-5); Neutrophil # 4.85 X10^3/uL (2.7-7.7); Neutrophil % 66.3 % (47-70); Platelet Count 373 K/mm3 (150-450); RBC Distribution Width CV 14.9 % (11.6-14.6); RBC Distribution Width SD 53.7 fl (35.1-43.9); Red Blood Count 3.18 M/mm3 (4.6-6.2); White Blood Count 7.3 K/mm3 (4.4-11.0)
[2023-04-09 06:24] LABS: Anion Gap 3 (5-15); BUN 12 mg/dL (7-18); BUN/Creat Ratio 14.2 RATIO (10-20); Calcium,Total 8.5 mg/dL (8.5-10.1); Chloride 103 mmol/L (98-107); Creatinine, Serum 0.84 mg/dL (0.70-1.30); EST Glomerular Filtration Rate 92 mL/min (>60); Est Glom Filt Rate - Afr Amer 111 mL/min (>60); Estimated Creatinine Clearance 63.33 ml/min; Glucose 98 mg/dL (74-106); Potassium 3.9 mmol/L (3.5-5.1); Sodium Level 136 mmol/L (136-145)
[2023-04-09] MEDS: Methocarbamol 750 MG Tablet PO ×3 (06:38→21:49)
[2023-04-09] MEDS: Midodrine HCl 5 MG Tablet PO ×3 (06:38→17:21)
[2023-04-09] MEDS: Budesonide Respules 0.5 MG/2 ML AMPUL.NEB. INHALATION ×2 (07:32→19:40)
[2023-04-09] MEDS: levalbuterol HCL 0.63 MG/3 ML VIAL.NEB 0.630000000000000004 MG INHALATION ×2 (07:32→19:40)
[2023-04-09] MEDS: Bumetanide 0.5 MG Tablet 1 MG PO (08:12)
[2023-04-09] MEDS: APIXABAN 5 MG TABLET PO ×2 (08:12→21:49)
[2023-04-09] MEDS: Dofetilide 250 MCG Capsule PO ×2 (08:12→21:49)
[2023-04-09] MEDS: Multivitamin (Healthy Eyes) Capsule 1 CAP PO (08:13)
[2023-04-09] MEDS: Empagliflozin 25 MG Tablet 12.5 MG PO (08:13)
[2023-04-09] MEDS: Pantoprazole Sodium 40 MG Tablet PO ×2 (08:14→21:49)
[2023-04-09] MEDS: Petrolatum 33% Tube 1 APPLIC TOPICAL ×2 (08:14→21:47)
[2023-04-09] MEDS: Finasteride 5 MG Tablet PO (08:14)
[2023-04-09] MEDS: Arthritis Pain Compound 60 CLICK TUBE TOPICAL ×2 (08:15→21:47)
[2023-04-09] MEDS: Menthol/Lanolin/Calamine/Znox 113 GM Tube 1 APPLIC TOPICAL ×2 (08:15→21:47)
[2023-04-09] MEDS: DULoxetine Hcl 60 MG Capsule PO (08:15)
[2023-04-09] MEDS: Miconazole Nitrate 43 GM Bottle 1 APPLIC TOPICAL ×2 (08:15→21:51)
--- NOTE | 2023-04-09 10:12 | CASEMGMT ---
Social Work IDT met with patient and dtr for care plan meeting. Discussed patient's progress in PT/OT/SN. Educated to [facility] insurance with NRD 04/10, EDC 04/15 and continued stay is not guaranteed with each review. Pt and dtr confirm DC plan is to return home with but cannot assist. Pt needs to be mod I to return home. Dtr expressed concern with pt's medical issues and not having those resolved prior to DC. Written communication left with Dr. Shah. SW inquired about needs at DC. Pt has nebulizer and other DME needs. Pt used [facility] prior and would like to use again. SW will continue to follow for DC planning. MACARIO CarreonW
[2023-04-09] MEDS: Metoprolol(XL)Succ 25 MG Tablet PO (10:30)
[2023-04-09] MEDS: Tuberculin,Purif.prot.deriv. 50 TU/ML Vial 0.100000000000000006 ML ID (10:33)
--- NOTE | 2023-04-09 20:05 | PCM.TCUNOT ---
Subjective Subjective Resident seen, examined. , daughter, and daughter Lala by phone on speaker. 2 days ago, Skip had nausea, vomiting, decreased appetite, X-ray of abdomen showed mild ileus, enteritis. I also noted stool in the rectum. Resident was given Magnesium citrate by mouth, he refused soap suds enema, and IV normal saline overnight. Resident is doing better today, tolerating diet, no longer nauseus. Objective Data Objective Data Vital Signs: Vital Signs Temp Pulse Resp BP Pulse Ox O2 Del Method 98.5 F 87 18 92/53 L 93 Room Air 04/09/23 08:00 04/09/23 10:30 04/09/23 08:00 04/09/23 10:30 04/09/23 08:00 04/09/23 08:00 Oxygen Delivery Method Room Air Weight: 76.884 kg Body Mass Index (BMI) 25.7 Intake & Output: Intake and Output for Last 24 Hours 04/07/23 04/08/23 04/09/23 23:59 23:59 23:59 Intake Total 360 / 360 1820 / 1820 720 / 720 Output Total 250 / 250 Balance 110 / 110 1820 / 1820 720 / 720 Lab / Micro Data 04/09/23 05:27 04/09/23 05:27 Labs: Laboratory Results - last 24 hr 04/09/23 05:27: WBC 7.3, RBC 3.18 L, Hgb 9.5 L, Hct 31.2 L, MCV 98.1 H, MCH 29.9, MCHC 30.4 L, RDW Std Deviation 53.7 H, RDW Coeff of David 14.9 H, Plt Count 373, MPV 9.2, Immature Gran % (Auto) 4.100 H, Neut % (Auto) 66.3, Lymph % (Auto) 11.9 L, Lares % (Auto) 14.4 H, Eos % (Auto) 1.9, Baso % (Auto) 1.4 H, Absolute Neuts (auto) 4.9, Absolute Lymphs (auto) 0.87, Nucleated RBC % 0, Sodium 136, Potassium 3.9, Chloride 103, Carbon Dioxide 30.0, Anion Gap 3 L, BUN 12, Creatinine 0.84, Estim Creat Clear Calc 63.33, Est GFR (MDRD) Af Amer 111, Est GFR (MDRD) Non-Af 92, BUN/Creatinine Ratio 14.2, Glucose 98, Calcium 8.5 Micro: Microbiology 04/07/23 21:30 Urine, Catheterized Urine Culture - Final Culture exhibits no growth. Physical Exam Const alert General Appearance: cooperative HEENT normocephalic Eyes PERRL and EOMs intact bilaterally Neck supple, no JVD and no carotid bruits Resp normal respiratory effort, normal air movement and clear to auscultation bilaterally Cardio regular rate and regular rhythm GI non-tender GI Narrative: Distended, but soft, no pain. Palpation: tender LLQ Extremity normal capillary refill General Extremity: Negative for edema Skin no rashes or lesions noted General Skin Exam: no breakdown Psych affect normal Appearance: appropriate Assessment & Plan Assessment/Plan (1) Debility: (2) Atrial fibrillation with RVR: (3) Acute diverticulitis: (4) Retroperitoneal bleed: (5) COPD (chronic obstructive pulmonary disease): (6) Anxiety: (7) Hyperlipidemia: (8) Depression: (9) GERD (gastroesophageal reflux disease): (10) BPH (benign prostatic hyperplasia): (11) Coronary artery disease: PLAN: Plan 82 year old male with below past medical history hospitalized for acute diverticulitis, complicated by afib with RVR, retroperitoneal bleed, admitted to TCU with debility, here for rehabilitation, strengthening, prior to discharge home with . Debility - PT/OT. Dysphagia - ST. Pain - Tylenol 1000mg q6 prn pain (1-3), Wheeler 5/325mg 1 tab q4 prn pain (4-10). Bowel - Monitor, diarrhea. Adult immunization - Administer pneumonia vaccine, covid vaccine, flu vaccine as appropriate. DVT prophylaxis - On Eliquis. Ileus - Resolving with IV fluid, magnesium citrate, Promethazine 25mg q4h prn. COPD - Budesonide 0.5mg neb bid, Levalbuterol 0.63mg neb tid. Diverticulitis - Finished Augmentin treatment. Hyperlipidemia - Atorvastatin 10mg qhs. Atrial fibrillation - Metoprolol succinate 25mg daily, Tikosyn 250mcg bid, Eliquis 5mg bid, monitor cbcd. Depression - Duloxetine 60mg daily, stable chronic penitentiary use, GDR not recommended. Coronary artery disease - Metoprolol succinate 25mg daily, Jardiance 12.5mg daily, NTG 0.4mg sl q5m prn. BPH - Finasteride 5mg daily, Tamsulosin 0.8mg daily. Anxiety - Lorazepam 0.5mg qhs, stable chronic penitentiary use, GDR not recommended. Skin irritation - Calmoseptine topical 4x/day prn, Eucerin topical bid, Miconazole topical bid. Neck pain - Methocarbamol 750mg tid, Arthritis compound cream 2 clicks bid. Orthostatic hypotension - Midodrine 5mg tidcm. Macular degeneration - Healthy Eyes 1 cap daily. GERD - Pantoprazole 40mg bid. Edema - Bumex 1mg daily MWF.
[2023-04-09] MEDS: LORazepam 0.5 MG Tablet PO (21:47)
[2023-04-09] MEDS: Atorvastatin Calcium 10 MG Tablet PO (21:49)
[2023-04-09] MEDS: Tamsulosin HCl 0.4 MG Capsule 0.800000000000000044 MG PO (21:49)
[2023-04-09] MEDS: 0.9% Saline Lock 10 ML Syringe IV (21:53)
[2023-04-10] VITALS (8 sets, daily range): BP systolic 97–116; BP diastolic 59–68; PULSE 72–91; RESP 16–24; TEMP 36.1; O2SAT 92–95
[2023-04-10] MEDS: Methocarbamol 750 MG Tablet PO ×3 (05:04→22:17)
[2023-04-10 06:02] LABS: Hematocrit 32.1 % (40-54); Hemoglobin 9.7 g/dL (13.0-16.5)
[2023-04-10] MEDS: Budesonide Respules 0.5 MG/2 ML AMPUL.NEB. INHALATION ×2 (07:07→18:31)
[2023-04-10] MEDS: levalbuterol HCL 0.63 MG/3 ML VIAL.NEB 0.630000000000000004 MG INHALATION ×2 (07:07→13:15)
--- NOTE | 2023-04-10 08:07 | CPS ---
This RT let RN know pt is almost out of his home med Xopenex. RN stated she would call pt family to bring in more.
[2023-04-10] MEDS: Midodrine HCl 5 MG Tablet PO ×3 (09:34→17:29)
[2023-04-10] MEDS: Arthritis Pain Compound 60 CLICK TUBE TOPICAL ×2 (09:34→22:21)
[2023-04-10] MEDS: Menthol/Lanolin/Calamine/Znox 113 GM Tube 1 APPLIC TOPICAL ×2 (09:34→22:18)
[2023-04-10] MEDS: DULoxetine Hcl 60 MG Capsule PO (09:35)
[2023-04-10] MEDS: Miconazole Nitrate 43 GM Bottle 1 APPLIC TOPICAL ×2 (09:35→22:19)
[2023-04-10] MEDS: Empagliflozin 25 MG Tablet 12.5 MG PO (09:36)
[2023-04-10] MEDS: Petrolatum 33% Tube 1 APPLIC TOPICAL ×2 (09:36→22:19)
[2023-04-10] MEDS: Multivitamin (Healthy Eyes) Capsule 1 CAP PO (09:36)
[2023-04-10] MEDS: APIXABAN 5 MG TABLET PO ×2 (09:36→22:17)
[2023-04-10] MEDS: Dofetilide 250 MCG Capsule PO ×2 (09:37→22:17)
[2023-04-10] MEDS: Pantoprazole Sodium 40 MG Tablet PO ×2 (09:37→22:20)
[2023-04-10] MEDS: Finasteride 5 MG Tablet PO (09:37)
[2023-04-10] MEDS: Metoprolol(XL)Succ 25 MG Tablet PO (09:38)
--- NOTE | 2023-04-10 14:19 | DS.PCM_ITS ---
Providers Date of Admission: 04/01/23 Primary Care Physician: Dr. Arnulfo Rascon MD Reason For Visit: PAS,RVR,DIVERTICULITIS,RECENT ABLA,RETRO PER BLEED Diagnosis Discharge Diagnosis (1) Debility: Status: Acute Code(s): R53.81 - Other malaise (2) Atrial fibrillation with RVR: Status: Acute Code(s): I48.91 - Unspecified atrial fibrillation (3) Acute diverticulitis: Status: Acute Code(s): K57.92 - Diverticulitis of intestine, part unspecified, without perforation or abscess without bleeding (4) Retroperitoneal bleed: Status: Acute Code(s): R58 - Hemorrhage, not elsewhere classified (5) COPD (chronic obstructive pulmonary disease): Status: Chronic Code(s): J44.9 - Chronic obstructive pulmonary disease, unspecified (6) Anxiety: Status: Acute Code(s): F41.9 - Anxiety disorder, unspecified (7) Hyperlipidemia: Status: Chronic Code(s): E78.5 - Hyperlipidemia, unspecified (8) Depression: Status: Acute Code(s): F32.A - Depression, unspecified (9) GERD (gastroesophageal reflux disease): Status: Acute Code(s): K21.9 - Gastro-esophageal reflux disease without esophagitis (10) BPH (benign prostatic hyperplasia): Status: Acute Code(s): N40.0 - Benign prostatic hyperplasia without lower urinary tract symptoms (11) Coronary artery disease: Status: Acute Code(s): I25.10 - Atherosclerotic heart disease of [place] coronary artery without angina pectoris Plan 82 year old male with below past medical history hospitalized for acute diverticulitis, complicated by afib with RVR, retroperitoneal bleed, admitted to TCU with debility, here for rehabilitation, strengthening, prior to discharge home with . * Debility - PT/OT. * Dysphagia - ST. * Pain - Tylenol 1000mg q6 prn pain (1-3), [place] 5/325mg 1 tab q4 prn pain (4- 10). * Bowel - Monitor, diarrhea. * Adult immunization - Administer pneumonia vaccine, covid vaccine, flu vaccine as appropriate. * DVT prophylaxis - On Eliquis. * Ileus - Resolving with IV fluid, magnesium citrate, Promethazine 25mg q4h prn. * COPD - Budesonide 0.5mg neb bid, Levalbuterol 0.63mg neb tid. * Diverticulitis - Finished Augmentin treatment. * Hyperlipidemia - Atorvastatin 10mg qhs. * Atrial fibrillation - Metoprolol succinate 25mg daily, Tikosyn 250mcg bid, Eliquis 5mg bid, monitor cbcd. * Depression - Duloxetine 60mg daily, stable chronic longterm use, GDR not recommended. * Coronary artery disease - Metoprolol succinate 25mg daily, Jardiance 12.5mg daily, NTG 0.4mg sl q5m prn. * BPH - Finasteride 5mg daily, Tamsulosin 0.8mg daily. * Anxiety - Lorazepam 0.5mg qhs, stable chronic intermediate card tender use, GDR not recommended. * Skin irritation - Calmoseptine topical 4x/day prn, Eucerin topical bid, Miconazole topical bid. * Neck pain - Methocarbamol 750mg tid, Arthritis compound cream 2 clicks bid. * Orthostatic hypotension - Midodrine 5mg tidcm. * Macular degeneration - Healthy Eyes 1 cap daily. * GERD - Pantoprazole 40mg bid. * Edema - Bumex 1mg daily MWF. Medications at Discharge Home Medications rosuvastatin 5 mg tablet (Crestor) 5 mg PO QDAY cholesterol 07/04/17 cholecalciferol (vitamin D3) 25 mcg (1,000 unit) tablet 25 mcg PO DAILY supplement 05/22/21 metoprolol succinate 25 mg tablet,extended release 24 hr 25 mg PO DAILY AFIB 06/27/21 nitroglycerin 0.4 mg sublingual tablet 0.4 mg sublingual Q5M PRN CP 06/27/21 cyanocobalamin (vitamin B-12) 1,000 mcg/mL injection kit 100 mcg IM QMONTH supplement 03/29/23 dofetilide 250 mcg capsule 250 mcg PO Q12H afib 03/29/23 duloxetine 60 mg capsule,delayed release See Rx Instructions PO DAILY mood 03/29/23 empagliflozin 25 mg tablet (Jardiance) 12.5 mg PO DAILY heart 03/29/23 finasteride 5 mg tablet 5 mg PO DAILY bph 03/29/23 levalbuterol HCl 0.63 mg/3 mL solution for nebulization 0.63 mg inhalation TID copd 03/29/23 midodrine 5 mg tablet 5 mg PO TID blood pressure 03/29/23 vit C 250 mg-vit E 200 unit-zinc ox 12.5 [id number] capsule (ICaps AREDS2) 1 cap PO DAILY supplement 03/29/23 budesonide 0.5 mg/2 mL suspension for nebulization 0.5 mg (2 mL) inhalation BID.RT Asthma #0 mL 04/01/23 lorazepam 0.5 mg tablet 0.5 mg PO QHS Anxiety #5 tabs 04/01/23 acetaminophen 500 mg tablet 1,000 mg (2 x 500 mg) PO Q6H PRN PRN Pain Score 1-3 #0 tabs 04/10/23 apixaban 5 mg tablet (Eliquis) 5 mg PO BID #0 tabs 04/10/23 bumetanide 0.5 mg tablet 1 mg (2 x 0.5 mg) PO MOWEFR #0 tabs 04/10/23 hydrocodone-acetaminophen 5-325mg 5mg-325mg 1 tab PO Q4H PRN PRN Pain Score 4-10 #0 tabs 04/10/23 methocarbamol 750 mg tablet 750 mg PO TID Muscle Relaxer 30 days #90 tabs 04/10/23 pantoprazole 40 mg tablet,delayed release 40 mg PO BID 30 days #60 tabs 04/10/23 pantoprazole 40 mg tablet,delayed release 40 mg PO BID GERD 30 days #60 tabs 04/10/23 tamsulosin 0.4 mg capsule 0.8 mg (2 x 0.4 mg) PO QHS 30 days #60 caps 04/10/23 tamsulosin 0.4 mg capsule (Flomax) 0.8 mg (2 x 0.4 mg) PO QHS BPH 30 days #60 caps 04/10/23 Hospital Course Operations None Procedures None Summary of Care Provided Minutes Spent on Discharge: 35 Hospital Course: 82 year old male with below past medical history hospitalized for acute diverticulitis, complicated by afib with RVR, retroperitoneal bleed, admitted to TCU with debility, here for rehabilitation, strengthening, prior to discharge home with . Discharge home with 04/14/2023, [facility] PT/OT/SN. Physical Exam Const alert General Appearance: cooperative HEENT normocephalic Eyes PERRL and EOMs intact bilaterally Neck supple, no JVD and no carotid bruits Resp normal respiratory effort, normal air movement and clear to auscultation bilaterally Cardio regular rate and regular rhythm GI normal to inspection, nondistended, normoactive bowel sounds, non-tender and non-distended Extremity normal capillary refill General Extremity: Negative for edema Skin no rashes or lesions noted General Skin Exam: no breakdown Psych affect normal Appearance: appropriate Weight / BMI Weight Weight: 76.884 kg Body Mass Index (BMI) 25.7 ABG / Lab / Microbiology Data 04/10/23 05:31 04/09/23 05:27 Laboratory: Laboratory Results - last 24 hr 04/10/23 05:31: Hgb 9.7 L, Hct 32.1 L Microbiology: Microbiology 04/07/23 21:30 Urine, Catheterized Urine Culture - Final Culture exhibits no growth. D/C Instructions Discharge Diet: No restrictions Discharge Activity: Return to Normal Activity, May Shower and Use Walker Weight Bearing Status: Weight bearing as tolerated Call your doctor if you observe: Fever of 101 or Higher, Inability to urinate, Inability to have a bowel movement, Shortness of breath, Dizziness, Fainting spells, Swelling in the ankles, Chest pain and Uncontrolled pain Additional Instructions: Discharge home with 04/14/2023, [facility] PT/OT/SN. Meaningful Use Info Meaningful Use Diagnoses (Choose all that apply): None applicable Discharge Plan Admission Admit Date/Time: 04/01/23 18:23 Primary Reason for Your Visit: Debility. Attending Provider: Parrish Shah Chi Primary Care Provider: Arnulfo Rascon Instructions Additional Instructions / Restrictions: Discharge home with 04/14/2023, [facility] PT/OT/SN. Discharge Orders/Prescriptions Prescriptions: New acetaminophen 500 mg Tablet 1,000 mg PO Q6H PRN PRN (Reason: Pain Score 1-3) Qty: 0 0RF Eliquis 5 mg Tablet 5 mg PO BID Qty: 0 0RF hydrocodone-acetaminophen 5-325 mg Tablet 1 tab PO Q4H PRN PRN (Reason: Pain Score 4-10) Qty: 0 0RF bumetanide 0.5 mg Tablet 1 mg PO MOWEFR Qty: 0 0RF tamsulosin 0.4 mg Capsule 0.8 mg PO QHS 30 Days Qty: 60 0RF pantoprazole 40 mg Tablet,Delayed Release (Dr/Ec) 40 mg PO BID 30 Days Qty: 60 0RF Continued rosuvastatin [Crestor] 5 mg tablet 5 mg PO QDAY metoprolol succinate 25 mg tablet extended release 24 hr 25 mg PO DAILY nitroglycerin 0.4 mg tablet, sublingual 0.4 mg sublingual Q5M PRN (Reason: CP) Rx Instructions: do not exceed 3 doses per episode dofetilide 250 mcg capsule 250 mcg PO Q12H Patient Comments: TAKE 1 CAPSULE BY MOUTH EVERY 12 HOURS midodrine 5 mg tablet 5 mg PO TID Patient Comments: take 1 tablet by mouth three times a day finasteride 5 mg tablet 5 mg PO DAILY Patient Comments: take 1 tablet by mouth once daily duloxetine 60 mg capsule,delayed release(DR/EC) See Rx Instructions PO DAILY Rx Instructions: 60 mg (2 caps) orally daily; Jardiance 25 mg tablet 12.5 mg PO DAILY levalbuterol HCl 0.63 mg/3 mL solution for nebulization 0.63 mg INHALATION TID Patient Comments: USE 1 VIAL 3 TIMES A DAY ICaps AREDS2 250 mg-200 unit -12.5 mg-1 mg capsule 1 cap PO DAILY cyanocobalamin (vitamin B-12) 1,000 mcg/mL kit 100 mcg IM QMONTH lorazepam 0.5 mg Tablet 0.5 mg PO QHS Qty: 5 0RF budesonide 0.5 mg/2 mL Suspension For Nebulization 0.5 mg inhalation BID.RT Qty: 0 0RF methocarbamol 750 mg tablet 750 mg PO TID 30 Days Qty: 90 0RF Rx Instructions: for neck pain tamsulosin [Flomax] 0.4 mg capsule 0.8 mg PO QHS 30 Days Qty: 60 0RF pantoprazole 40 mg tablet,delayed release (DR/EC) 40 mg PO BID 30 Days Qty: 60 0RF Patient Comments: take 1 tablet by mouth twice a day take before meals Rx Instructions: Before meals cholecalciferol (vitamin D3) 25 mcg (1,000 unit) tablet 25 mcg PO DAILY Discontinued acetaminophen 325 mg Tablet 650 mg PO Q4H PRN PRN (Reason: Fever, pain 1-12/23) Qty: 1 0RF hydrocodone-acetaminophen 5-325 mg Tablet 2 tab PO Q6H PRN PRN (Reason: Pain Score 1-10) 3 Days Qty: 12 0RF menthol-zinc oxide [Calmoseptine] 0.44-20.6 % Ointment 1 applic topical 4X/DAY PRN (Reason: skin breakdown/irritation) Qty: 0 0RF Protocol: *Topical Application Instructions APPLICATION INSTRUCTIONS: apply to affected region amoxicillin-pot clavulanate [Augmentin] 500-125 mg tablet 1 tab PO TID Qty: 21 0RF Rx Instructions: start 04/01/23 guaifenesin [Mucinex] 600 mg tablet extended release 12hr 600 mg PO BID Referrals / Follow Up: Arnulfo Rascon MD [Primary Care Provider] - Disposition Disposition (needs filled in before D/C Order can be placed): Home Health Service
--- NOTE | 2023-04-10 14:49 | CASEMGMT ---
Social Work Insurance issued LCD 04/13, DC 04/14. SW phoned dtr to update on DC plans. Dtr agreeable and updated pt has been made adlib in room by therapy. Dtr appreciative as pt needs to be mod I to be home. Dtr spoke with the Dr and got medical concerns answered. SW confirmed no DME needs at home and to refer to [facility] PT/OT/SN. Dtr confirmed and will transport pt at DC. SW sent referral to [facility] via [facility]. SW spoke with pt to update and confirm C. Pt agreeable. IDT updated. Plan: DC home with 04/14, [facility] PT/OT/SN MACARIO CarreonW
--- NOTE | 2023-04-10 19:58 | CPS ---
Only pulmicort treatment given at this time. O of Xopenex, patient's home med, family to bring in more tomorrow.
[2023-04-10] MEDS: LORazepam 0.5 MG Tablet PO (22:16)
[2023-04-10] MEDS: Bumetanide 0.5 MG Tablet 1 MG PO (22:18)
[2023-04-10] MEDS: Atorvastatin Calcium 10 MG Tablet PO (22:20)
[2023-04-10] MEDS: Tamsulosin HCl 0.4 MG Capsule 0.800000000000000044 MG PO (22:20)
[2023-04-11] MEDS: Methocarbamol 750 MG Tablet PO ×3 (06:05→21:34)
[2023-04-11] MEDS: levalbuterol HCL 0.63 MG/3 ML VIAL.NEB 0.630000000000000004 MG INHALATION ×2 (07:16→13:49)
[2023-04-11] MEDS: Budesonide Respules 0.5 MG/2 ML AMPUL.NEB. INHALATION (07:16)
[2023-04-11 07:49] VITALS: PULSE 95; RESP 16; O2SAT 97
[2023-04-11] MEDS: Menthol/Lanolin/Calamine/Znox 113 GM Tube 1 APPLIC TOPICAL ×2 (08:13→21:39)
[2023-04-11] MEDS: Petrolatum 33% Tube 1 APPLIC TOPICAL ×2 (08:14→21:40)
[2023-04-11] MEDS: Miconazole Nitrate 43 GM Bottle 1 APPLIC TOPICAL ×2 (08:14→21:39)
[2023-04-11] MEDS: DULoxetine Hcl 60 MG Capsule PO (08:17)
[2023-04-11] MEDS: Pantoprazole Sodium 40 MG Tablet PO ×2 (08:17→21:34)
[2023-04-11] MEDS: Midodrine HCl 5 MG Tablet PO ×3 (08:18→17:01)
[2023-04-11] MEDS: APIXABAN 5 MG TABLET PO ×2 (08:18→21:34)
[2023-04-11] MEDS: Empagliflozin 25 MG Tablet 12.5 MG PO (08:18)
[2023-04-11 08:19] VITALS: BP 99/60; PULSE 83
[2023-04-11] MEDS: Multivitamin (Healthy Eyes) Capsule 1 CAP PO (08:19)
[2023-04-11] MEDS: Finasteride 5 MG Tablet PO (08:19)
[2023-04-11] MEDS: Metoprolol(XL)Succ 25 MG Tablet PO (08:19)
[2023-04-11] MEDS: Dofetilide 250 MCG Capsule PO ×2 (08:19→21:34)
[2023-04-11] MEDS: Arthritis Pain Compound 60 CLICK TUBE TOPICAL ×2 (08:20→21:35)
[2023-04-11 09:12] LABS: Hematocrit 34.7 % (40-54); Hemoglobin 10.7 g/dL (13.0-16.5)
[2023-04-11 13:28] VITALS: BP 99/53; PULSE 70; RESP 20; TEMP 36.2; O2SAT 96
[2023-04-11 13:49] VITALS: PULSE 87; RESP 21
[2023-04-11 20:34] VITALS: PULSE 71; RESP 16; O2SAT 95
[2023-04-11] MEDS: LORazepam 0.5 MG Tablet PO (21:34)
[2023-04-11] MEDS: Atorvastatin Calcium 10 MG Tablet PO (21:34)
[2023-04-11] MEDS: Tamsulosin HCl 0.4 MG Capsule 0.800000000000000044 MG PO (21:34)
[2023-04-12] VITALS (7 sets, daily range): BP systolic 90–135; BP diastolic 57–80; PULSE 73–107; RESP 16–21; TEMP 36.5; O2SAT 93–94
[2023-04-12] MEDS: Methocarbamol 750 MG Tablet PO ×3 (05:27→21:21)
[2023-04-12 06:33] LABS: Hematocrit 32.1 % (40-54); Hemoglobin 10.3 g/dL (13.0-16.5)
[2023-04-12] MEDS: Metoprolol(XL)Succ 25 MG Tablet PO (09:48)
[2023-04-12] MEDS: Dofetilide 250 MCG Capsule PO ×2 (09:48→21:21)
[2023-04-12] MEDS: Multivitamin (Healthy Eyes) Capsule 1 CAP PO (09:48)
[2023-04-12] MEDS: Midodrine HCl 5 MG Tablet PO ×3 (09:48→18:12)
[2023-04-12] MEDS: DULoxetine Hcl 60 MG Capsule PO (09:49)
[2023-04-12] MEDS: Empagliflozin 25 MG Tablet 12.5 MG PO (09:49)
[2023-04-12] MEDS: APIXABAN 5 MG TABLET PO ×2 (09:49→21:21)
[2023-04-12] MEDS: Pantoprazole Sodium 40 MG Tablet PO ×2 (09:49→21:22)
[2023-04-12] MEDS: Finasteride 5 MG Tablet PO (09:49)
[2023-04-12] MEDS: Arthritis Pain Compound 60 CLICK TUBE TOPICAL ×2 (09:50→21:21)
[2023-04-12] MEDS: HYDROcodone Bitartrate/Apap 5/325 Tablet PO (09:55)
[2023-04-12] MEDS: levalbuterol HCL 0.63 MG/3 ML VIAL.NEB 0.630000000000000004 MG INHALATION ×2 (11:30→20:19)
[2023-04-12] MEDS: Budesonide Respules 0.5 MG/2 ML AMPUL.NEB. INHALATION ×2 (11:31→20:19)
[2023-04-12] MEDS: Menthol/Lanolin/Calamine/Znox 113 GM Tube 1 APPLIC TOPICAL ×2 (12:19→21:28)
[2023-04-12] MEDS: Petrolatum 33% Tube 1 APPLIC TOPICAL ×2 (12:19→21:27)
[2023-04-12] MEDS: Miconazole Nitrate 43 GM Bottle 1 APPLIC TOPICAL ×2 (12:20→21:28)
[2023-04-12] MEDS: Acetaminophen 500 MG Tablet 1000 MG PO (12:22)
[2023-04-12] MEDS: LORazepam 0.5 MG Tablet PO (21:21)
[2023-04-12] MEDS: Atorvastatin Calcium 10 MG Tablet PO (21:22)
[2023-04-12] MEDS: Tamsulosin HCl 0.4 MG Capsule 0.800000000000000044 MG PO (21:22)
[2023-04-13] VITALS (9 sets, daily range): BP systolic 91–103; BP diastolic 56–67; PULSE 71–85; RESP 16–18; TEMP 36.4; O2SAT 95–99
[2023-04-13] MEDS: Methocarbamol 750 MG Tablet PO ×3 (05:25→21:05)
[2023-04-13 05:50] LABS: Hematocrit 33.3 % (40-54); Hemoglobin 10.4 g/dL (13.0-16.5)
[2023-04-13] MEDS: levalbuterol HCL 0.63 MG/3 ML VIAL.NEB 0.630000000000000004 MG INHALATION ×3 (07:48→19:48)
[2023-04-13] MEDS: Budesonide Respules 0.5 MG/2 ML AMPUL.NEB. INHALATION ×2 (07:48→19:48)
[2023-04-13] MEDS: Multivitamin (Healthy Eyes) Capsule 1 CAP PO (08:52)
[2023-04-13] MEDS: DULoxetine Hcl 60 MG Capsule PO (08:52)
[2023-04-13] MEDS: Dofetilide 250 MCG Capsule PO ×2 (08:52→21:06)
[2023-04-13] MEDS: Metoprolol(XL)Succ 25 MG Tablet PO (08:52)
[2023-04-13] MEDS: Pantoprazole Sodium 40 MG Tablet PO ×2 (08:53→21:06)
[2023-04-13] MEDS: APIXABAN 5 MG TABLET PO ×2 (08:53→21:04)
[2023-04-13] MEDS: Arthritis Pain Compound 60 CLICK TUBE TOPICAL ×2 (08:54→21:06)
[2023-04-13] MEDS: Menthol/Lanolin/Calamine/Znox 113 GM Tube 1 APPLIC TOPICAL ×2 (08:55→21:01)
[2023-04-13] MEDS: Finasteride 5 MG Tablet PO (08:55)
[2023-04-13] MEDS: Midodrine HCl 5 MG Tablet PO ×3 (08:55→17:03)
[2023-04-13] MEDS: Petrolatum 33% Tube 1 APPLIC TOPICAL ×2 (08:56→21:01)
[2023-04-13] MEDS: Miconazole Nitrate 43 GM Bottle 1 APPLIC TOPICAL ×2 (08:56→21:01)
[2023-04-13] MEDS: Empagliflozin 25 MG Tablet 12.5 MG PO (08:59)
[2023-04-13] MEDS: LORazepam 0.5 MG Tablet PO (21:00)
[2023-04-13] MEDS: Bumetanide 0.5 MG Tablet 1 MG PO (21:04)
[2023-04-13] MEDS: Atorvastatin Calcium 10 MG Tablet PO (21:04)
[2023-04-13] MEDS: Tamsulosin HCl 0.4 MG Capsule 0.800000000000000044 MG PO (21:05)
[2023-04-14 06:32] VITALS: PULSE 79; RESP 18; O2SAT 97
[2023-04-14] MEDS: Methocarbamol 750 MG Tablet PO (06:45)
[2023-04-14 06:51] VITALS: PULSE 73; RESP 18; O2SAT 93
[2023-04-14] MEDS: Budesonide Respules 0.5 MG/2 ML AMPUL.NEB. INHALATION (06:51)
[2023-04-14] MEDS: levalbuterol HCL 0.63 MG/3 ML VIAL.NEB 0.630000000000000004 MG INHALATION (06:51)
--- NOTE | 2023-04-14 08:02 | MDS.RN ---
Information for the mds was obtained from review of the clinical record, interview of resident, staff, and direct observation of resident's care.
[2023-04-14] MEDS: Arthritis Pain Compound 60 CLICK TUBE TOPICAL (08:46)
[2023-04-14] MEDS: Multivitamin (Healthy Eyes) Capsule 1 CAP PO (08:47)
[2023-04-14] MEDS: Midodrine HCl 5 MG Tablet PO (08:47)
[2023-04-14] MEDS: APIXABAN 5 MG TABLET PO (08:47)
[2023-04-14] MEDS: DULoxetine Hcl 60 MG Capsule PO (08:47)
[2023-04-14 08:48] VITALS: BP 105/64; PULSE 85
[2023-04-14] MEDS: Dofetilide 250 MCG Capsule PO (08:48)
[2023-04-14] MEDS: Finasteride 5 MG Tablet PO (08:48)
[2023-04-14] MEDS: Metoprolol(XL)Succ 25 MG Tablet PO (08:48)
[2023-04-14] MEDS: Empagliflozin 25 MG Tablet 12.5 MG PO (08:48)
[2023-04-14] MEDS: Pantoprazole Sodium 40 MG Tablet PO (08:48)
[2023-04-14] MEDS: Miconazole Nitrate 43 GM Bottle 1 APPLIC TOPICAL (08:49)
[2023-04-14] MEDS: Petrolatum 33% Tube 1 APPLIC TOPICAL (08:49)
[2023-04-14] MEDS: Menthol/Lanolin/Calamine/Znox 113 GM Tube 1 APPLIC TOPICAL (08:49)
[2023-04-14 11:34] VITALS: BP 101/59; PULSE 82; RESP 17; TEMP 36.8; O2SAT 95
--- NOTE | 2023-04-14 12:49 | CASEMGMT ---
Social Work: BIMS score () PHQ (03/18) completed for MDS assessment. KAITLYN Mariee
== END 2023-04-14 11:56 | disposition home health service (06) | DRG 392 ==
PROVIDERS: Admitting Provider Family Medicine Geriatric Medicine; PCP Family Medicine; Visit Provider Family Medicine Geriatric Medicine
DX: K57.92 Diverticulitis of intestine, part unspecified, without perforation or abscess without bleeding (principal); K56.7 Ileus, unspecified; I50.22 Chronic systolic (congestive) heart failure; J44.9 Chronic obstructive pulmonary disease, unspecified; I48.0 Paroxysmal atrial fibrillation; F32.A Depression, unspecified; K21.9 Gastro-esophageal reflux disease without esophagitis; H35.30 Unspecified macular degeneration; F41.9 Anxiety disorder, unspecified; I25.10 Atherosclerotic heart disease of native coronary artery without angina pectoris; E78.5 Hyperlipidemia, unspecified; I95.1 Orthostatic hypotension; G47.33 Obstructive sleep apnea (adult) (pediatric); N40.0 Benign prostatic hyperplasia without lower urinary tract symptoms; Z87.891 Personal history of nicotine dependence; Z79.899 Other long term (current) drug therapy; Z87.01 Personal history of pneumonia (recurrent); Z23 Encounter for immunization
CPT/HCPCS: 36415; 74018; 80048; 80053; 80061; 80076; 81001; 85014; 85018; 85025; 87086; 90480; 92610; 94640; 97110; 97116; 97124; 97162; 97166; 97530; 97535; J7030; 91322; A4216; J3420

== ENCOUNTER 2023-06-06 17:13 | Emergency (ER) | payer MEDICARE, SELFPAY ==
[2023-06-06] VITALS (10 sets, daily range): BP systolic 84–115; BP diastolic 59–80; PULSE 79–143; RESP 16–27; TEMP 36–36.4; O2SAT 94–99; BMI 25.3
--- NOTE | 2023-06-06 17:43 | EX.ED.DYSGE1 ---
HPI <TAMANNA Casanova - Last Filed: 06/06/23 19:27> History of Present Illness Chief Complaint: Palpitations Narrative Narrative: 82-year-old male with PMH of HTN, HLD, COPD, A-fib on dofetilide, metoprolol and Eliquis developed palpitations at noon while sitting. His heart has felt like it is racing all day. No chest pain or shortness of breath. He had an ablation for A-fib in March 2023 and afterward developed a retroperitoneal hematoma. He states he already had low blood pressures and was on midodrine 3 times a day but was worsened by this complication. He had been doing much better and saw his print binding and finishing worker in [place] yesterday, Dr. Coelho, and had a clean bill of health and an EKG showing normal sinus rhythm. Cardiology had recommended he could start skipping his midday midodrine dose. PFS <TAMANNA Casanova - Last Filed: 06/06/23 19:27> [facility] Medical History (Updated 06/06/23 @ 19:27 by TAMANNA Casnaova) Atherosclerotic heart disease of [place] coronary artery without angina pectoris BPH (benign prostatic hyperplasia) Chronic diarrhea COPD (chronic obstructive pulmonary disease) GERD (gastroesophageal reflux disease) HFrEF (heart failure with reduced ejection fraction) Hyperlipidemia Obstructive sleep apnea Paroxysmal atrial fibrillation Pulmonary fibrosis Retroperitoneal hematoma Sinus node dysfunction SVT (supraventricular tachycardia) Home Medications rosuvastatin 5 mg tablet (Crestor) 5 mg PO QDAY cholesterol 07/04/17 [History Last Taken 03/28/23] cholecalciferol (vitamin D3) 25 mcg (1,000 unit) tablet 25 mcg PO DAILY supplement 05/22/21 [History Last Taken 03/28/23] metoprolol succinate 25 mg tablet,extended release 24 hr 25 mg PO DAILY AFIB 06/27/21 [History Last Taken 04/01/23] nitroglycerin 0.4 mg sublingual tablet 0.4 mg sublingual Q5M PRN CP 06/27/21 [History Last Taken Unknown] cyanocobalamin (vitamin B-12) 1,000 mcg/mL injection kit 100 mcg IM QMONTH supplement 03/29/23 [History Last Taken Unknown] dofetilide 250 mcg capsule 250 mcg PO Q12H afib 03/29/23 [History Last Taken 04/01/23] duloxetine 60 mg capsule,delayed release See Rx Instructions PO DAILY mood 03/29/23 [History Last Taken 03/28/23] empagliflozin 25 mg tablet (Jardiance) 12.5 mg PO DAILY heart 03/29/23 [History Last Taken 03/28/23] finasteride 5 mg tablet 5 mg PO DAILY bph 03/29/23 [History Last Taken 03/28/23] levalbuterol HCl 0.63 mg/3 mL solution for nebulization 0.63 mg inhalation TID copd 03/29/23 [History Last Taken 04/01/23] midodrine 5 mg tablet 5 mg PO TID blood pressure 03/29/23 [History Last Taken 04/01/23] vit C 250 mg-vit E 200 unit-zinc ox 12.5 [id number] capsule (ICaps AREDS2) 1 cap PO DAILY supplement 03/29/23 [History Last Taken 03/28/23] budesonide 0.5 mg/2 mL suspension for nebulization 0.5 mg (2 mL) inhalation BID.RT Asthma #0 mL 04/01/23 [Rx Last Taken 04/01/23] lorazepam 0.5 mg tablet 0.5 mg PO QHS Anxiety #5 tabs 04/01/23 [Rx Last Taken 03/31/23] acetaminophen 500 mg tablet 1,000 mg (2 x 500 mg) PO Q6H PRN PRN Pain Score 1-3 #0 tabs 04/10/23 [Rx Last Taken Unknown] apixaban 5 mg tablet (Eliquis) 5 mg PO BID #0 tabs 04/10/23 [Rx Last Taken Unknown] bumetanide 0.5 mg tablet 1 mg (2 x 0.5 mg) PO MOWEFR #0 tabs 04/10/23 [Rx Last Taken Unknown] hydrocodone-acetaminophen 5-325mg 5mg-325mg 1 tab PO Q4H PRN PRN Pain Score 4-10 #0 tabs 04/10/23 [Rx Last Taken Unknown] methocarbamol 750 mg tablet 750 mg PO TID Muscle Relaxer 30 days #90 tabs 04/10/23 [Rx Last Taken Unknown] pantoprazole 40 mg tablet,delayed release 40 mg PO BID 30 days #60 tabs 04/10/23 [Rx Last Taken Unknown] pantoprazole 40 mg tablet,delayed release 40 mg PO BID GERD 30 days #60 tabs 04/10/23 [Rx Last Taken Unknown] tamsulosin 0.4 mg capsule 0.8 mg (2 x 0.4 mg) PO QHS 30 days #60 caps 04/10/23 [Rx Last Taken Unknown] tamsulosin 0.4 mg capsule (Flomax) 0.8 mg (2 x 0.4 mg) PO QHS BPH 30 days #60 caps 04/10/23 [Rx Last Taken Unknown] hydrocodone-acetaminophen 5-325mg 5mg-325mg 1 tab PO Q4H PRN pain 7 days #28 tabs 04/13/23 [Rx Last Taken Unknown] Allergy/AdvReac Type Severity Reaction Status Date / Time tramadol Allergy Unknown PT UNSURE Verified 06/06/23 17:28 OF REACTION Family History Mother , Age 64 from Emphysema COPD (chronic obstructive pulmonary disease) Blood disorder Father No problems noted. Surgical History History of ankle surgery History of appendectomy History of back surgery History of inguinal hernia repair History of left heart catheterization (05/27/21) History of tonsillectomy History of umbilical hernia repair S/P ablation of atrial fibrillation Social History household members: spouse housing: house Smoking Status: Former smoker how long ago did patient quit smokin years ago alcohol intake: current alcohol intake frequency: holidays/special occasions only substance use type: does not use caffeine: Yes Type: coffee Number of servings: 2 ROS <TAMANNA Casanova - Last Filed: 06/06/23 19:27> ROS ED ROS Narrative Constitutional: Negative for fever, chills, malaise. CVS: Positive for palpitations. Negative for chest pain, syncope. Respiratory: Negative for shortness of breath. GI: Negative for abdominal pain, nausea, vomiting. EXAM <TAMANNA Casanova - Last Filed: 06/06/23 19:27> Physical Exam Narrative Exam Narrative: CONST: Patient sitting in no acute distress. EYES: Normal inspection. NECK: Normal inspection. RESP: No respiratory distress, CTAB. CVS: Tachycardic regular sounding rate, no murmurs. ABD: Soft and nontender, no guarding or rebound, nondistended. SKIN: Color normal, no rash, warm, dry, intact. EXTREMITIES: Normal appearance, no pedal edema. NEURO: Alert and answering questions appropriately. PSYCH: Normal affect. Const Vital Signs: 06/06/23 17:14 06/06/23 17:36 06/06/23 17:51 Temperature 97.2 F L 97.5 F L Temperature Source Temporal Oral Pulse Rate 143 H 138 H Pulse Rate [1 (Initial Baseline)] Pulse Rate [3] Pulse Rate [4] Respiratory Rate 16 23 H Respiratory Rate [1 (Initial Baseline)] Respiratory Rate [3] Respiratory Rate [4] Respiratory Effort Normal Non-Labored Blood Pressure 86/65 L 84/59 L Blood Pressure [1 (Initial Baseline)] Blood Pressure [3] Blood Pressure [4] Blood Pressure Mean 72 67 Pulse Ox 98 94 Oxygen Delivery Method Room Air Room Air Oxygen Delivery Method [1 (Initial Baseline)] Oxygen Delivery Method [3] Oxygen Delivery Method [4] Oxygen Flow Rate (L/min) Oxygen Flow Rate (L/min) [1 (Initial Baseline)] 06/06/23 18:14 06/06/23 18:49 06/06/23 18:49 Temperature Temperature Source Pulse Rate 134 H 121 H Pulse Rate [1 (Initial Baseline)] 133 H Pulse Rate [3] 100 Pulse Rate [4] 83 Respiratory Rate 25 H 18 Respiratory Rate [1 (Initial Baseline)] 27 H Respiratory Rate [3] 27 H Respiratory Rate [4] 20 H Respiratory Effort Blood Pressure 100/60 92/61 Blood Pressure [1 (Initial Baseline)] 92/61 Blood Pressure [3] 92/61 Blood Pressure [4] 115/80 Blood Pressure Mean 73 Pulse Ox 95 Oxygen Delivery Method Nasal Cannula Oxygen Delivery Method [1 (Initial Baseline)] Nasal Cannula Oxygen Delivery Method [3] Nasal Cannula Oxygen Delivery Method [4] Nasal Cannula Oxygen Flow Rate (L/min) 2 Oxygen Flow Rate (L/min) [1 (Initial Baseline)] 2 06/06/23 19:00 06/06/23 20:00 06/06/23 20:06 Temperature 96.8 F L 96.8 F L Temperature Source Temporal Pulse Rate 86 79 79 Pulse Rate [1 (Initial Baseline)] Pulse Rate [3] Pulse Rate [4] Respiratory Rate 16 16 16 Respiratory Rate [1 (Initial Baseline)] Respiratory Rate [3] Respiratory Rate [4] Respiratory Effort Blood Pressure 89/69 L 91/62 91/62 Blood Pressure [1 (Initial Baseline)] Blood Pressure [3] Blood Pressure [4] Blood Pressure Mean 75 71 71 Pulse Ox 96 98 98 Oxygen Delivery Method Nasal Cannula Room Air Oxygen Delivery Method [1 (Initial Baseline)] Oxygen Delivery Method [3] Oxygen Delivery Method [4] Oxygen Flow Rate (L/min) Oxygen Flow Rate (L/min) [1 (Initial Baseline)] <Dr. Verenice Chicas, DO - Last Filed: 06/07/23 00:48> Physical Exam Const Vital Signs: 06/06/23 17:14 06/06/23 17:36 06/06/23 17:51 Temperature 97.2 F L 97.5 F L Temperature Source Temporal Oral Pulse Rate 143 H 138 H Pulse Rate [1 (Initial Baseline)] Pulse Rate [3] Pulse Rate [4] Respiratory Rate 16 23 H Respiratory Rate [1 (Initial Baseline)] Respiratory Rate [3] Respiratory Rate [4] Respiratory Effort Normal Non-Labored Blood Pressure 86/65 L 84/59 L Blood Pressure [1 (Initial Baseline)] Blood Pressure [3] Blood Pressure [4] Blood Pressure Mean 72 67 Pulse Ox 98 94 Oxygen Delivery Method Room Air Room Air Oxygen Delivery Method [1 (Initial Baseline)] Oxygen Delivery Method [3] Oxygen Delivery Method [4] Oxygen Flow Rate (L/min) Oxygen Flow Rate (L/min) [1 (Initial Baseline)] 06/06/23 18:14 06/06/23 18:49 06/06/23 18:49 Temperature Temperature Source Pulse Rate 134 H 121 H Pulse Rate [1 (Initial Baseline)] 133 H Pulse Rate [3] 100 Pulse Rate [4] 83 Respiratory Rate 25 H 18 Respiratory Rate [1 (Initial Baseline)] 27 H Respiratory Rate [3] 27 H Respiratory Rate [4] 20 H Respiratory Effort Blood Pressure 100/60 92/61 Blood Pressure [1 (Initial Baseline)] 92/61 Blood Pressure [3] 92/61 Blood Pressure [4] 115/80 Blood Pressure Mean 73 Pulse Ox 95 Oxygen Delivery Method Nasal Cannula Oxygen Delivery Method [1 (Initial Baseline)] Nasal Cannula Oxygen Delivery Method [3] Nasal Cannula Oxygen Delivery Method [4] Nasal Cannula Oxygen Flow Rate (L/min) 2 Oxygen Flow Rate (L/min) [1 (Initial Baseline)] 2 06/06/23 19:00 06/06/23 20:00 06/06/23 20:06 Temperature 96.8 F L 96.8 F L Temperature Source Temporal Pulse Rate 86 79 79 Pulse Rate [1 (Initial Baseline)] Pulse Rate [3] Pulse Rate [4] Respiratory Rate 16 16 16 Respiratory Rate [1 (Initial Baseline)] Respiratory Rate [3] Respiratory Rate [4] Respiratory Effort Blood Pressure 89/69 L 91/62 91/62 Blood Pressure [1 (Initial Baseline)] Blood Pressure [3] Blood Pressure [4] Blood Pressure Mean 75 71 71 Pulse Ox 96 98 98 Oxygen Delivery Method Nasal Cannula Room Air Oxygen Delivery Method [1 (Initial Baseline)] Oxygen Delivery Method [3] Oxygen Delivery Method [4] Oxygen Flow Rate (L/min) Oxygen Flow Rate (L/min) [1 (Initial Baseline)] [facility] <TAMANNA Casanova - Last Filed: 06/06/23 19:27> [facility] Narrative Medical decision making narrative: History gathered from: Patient and family members Differential: A flutter, A-fib, SVT Patient has a history of A-fib on Eliquis and developed palpitations at 12 PM at rest. No chest pain or shortness of breath. He also has orthostatic hypotension on midodrine. BP is 86/65, heart rate consistently at 133 and appears to be a flutter on telemetry while I am in the room. He is awake and alert and in no distress. He denies missing Eliquis over the last few weeks. Initially ordered IV fluids, labs, and chest x-ray. Blood work overall unremarkable. Troponin is 10. BNP 156. CXR negative. Since patient has orthostatic hypotension I would like to avoid giving IV medications for atrial flutter and worsening this condition. Since we know the onset of palpitations and he is compliant with anticoagulation he is an appropriate candidate for synchronized cardioversion. Risks and benefits explained in patient provided consent and all questions were answered. He was given IV fentanyl 25 mcg and Versed 2 mg and synchronized cardioversion version was performed with 100 J. He was successfully converted to normal sinus rhythm around 84 bpm. Blood pressures remain low around 90/60 which is his baseline. He is overdue for his evening midodrine dose so this was ordered here. Patient and family are comfortable with discharge and will call his print binding and finishing worker for follow-up. He was discharged in stable condition. Lab Data Attestation: I reviewed the patient's lab results. Labs: Laboratory Results - last 24 hr 06/06/23 17:40 WBC 12.3 H RBC 4.61 Hgb 13.6 Hct 43.7 MCV 94.8 H MCH 29.5 MCHC 31.1 L RDW Std Deviation 50.2 H RDW Coeff of David 14.3 Plt Count 303 MPV 9.4 Immature Gran % (Auto) 0.400 Neut % (Auto) 80.1 H Lymph % (Auto) 9.0 L [place] % (Auto) 8.4 Eos % (Auto) 1.1 Baso % (Auto) 1.0 Absolute Neuts (auto) 9.9 H Absolute Lymphs (auto) 1.11 Nucleated RBC % 0 Sodium 140 Potassium 4.2 Chloride 109 H Carbon Dioxide 25.0 Anion Gap 6 BUN 14 Creatinine 1.11 Estim Creat Clear Calc 47.93 Est GFR (MDRD) Af Amer 81 Est GFR (MDRD) Non-Af 67 BUN/Creatinine Ratio 12.6 Glucose 140 H Calcium 8.7 Troponin I High Sens 10 B-Natriuretic Peptide 156.3 H Radiography Diagnostic Testing: Clinical Impression(s) from Imaging Studies Chest X-Ray 06/06/23 17:53 IMPRESSION: Nonacute portable x-ray examination of the chest. Electronically Signed: Toño Barbosa MD (Brooks) at 18:22 EDT , ED attending interpretation of 1-view chest x-ray shows normal heart size, no acute infiltrate, edema, or effusion. EKG Initial EKG: Attestation: I personally reviewed and interpreted this EKG as follows: Comments: Initial EKG appears to be atrial flutter with occasional PVCs at 139 bpm Repeat EKG after cardioversion shows normal sinus rhythm 84 bpm, no acute ischemic changes <Dr. Verenice Chicas, - Last Filed: 06/07/23 00:48> MDM MDM Narrative Medical decision making narrative: History gathered from: Patient and family members Differential: A flutter, A-fib, SVT Patient has a history of A-fib on Eliquis and developed palpitations at 12 PM at rest. No chest pain or shortness of breath. He also has orthostatic hypotension on midodrine. BP is 86/65, heart rate consistently at 133 and appears to be a flutter on telemetry while I am in the room. He is awake and alert and in no distress. He denies missing Eliquis over the last few weeks. Initially ordered IV fluids, labs, and chest x-ray. Blood work overall unremarkable. Troponin is 10. BNP 156. CXR negative. Since patient has orthostatic hypotension I would like to avoid giving IV medications for atrial flutter and worsening this condition. Since we know the onset of palpitations and he is compliant with anticoagulation he is an appropriate candidate for synchronized cardioversion. Risks and benefits explained in patient provided consent and all questions were answered. He was given IV fentanyl 25 mcg and Versed 2 mg and synchronized cardioversion version was performed with 100 J. He was successfully converted to normal sinus rhythm around 84 bpm. Blood pressures remain low around 90/60 which is his baseline. He is overdue for his evening midodrine dose so this was ordered here. Patient and family are comfortable with discharge and will call his print binding and finishing worker for follow-up. He was discharged in stable condition. I have personally performed a face to face assessment of the patient and have reviewed the VENITA Note. I performed a substantive portion of the visit including all aspects of the following. My goodrich findings include: History is patient is a 89-year-old male with extensive cardiac history including atrial fibrillation on Eliquis, atrial flutter, prior ablation, COPD, coronary artery disease and long-term Eliquis therapy. Patient states he saw his print binding and finishing worker (all of his cares to [place]) yesterday and he was normal sinus rhythm at that time. Earlier today he suddenly developed palpitations and felt himself go back into an arrhythmia. He also does have a history of hypotension and is on midodrine for that. He is not sure if he is take his midodrine recently however he is quite calm and has not missed any recent doses of his Eliquis. No other complaints at this time. Patient is hemodynamically stable. His blood pressure is on the soft side but he is mentating well. As he has not missed any doses of his Eliquis, has been in atrial fibrillation for less than 24 hours and has soft blood pressures we will cardiovert instead of treating medically. Patient is pretreated with 25 mcg of IV fentanyl and 2 mg IV Versed. He is placed on end-tidal O2, suction at the bedside and is on continuous telemetry monitoring. Synchronized cardioversion at 100 J is performed. He has successful conversion to normal sinus rhythm. Cardiac workup is otherwise largely normal. BNP mildly elevated but he does not appear to have any acute fluid overload. We attempted to contact the patient's print binding and finishing worker however patient's family is comfortable just following up with them during the following week. He is asymptomatic at this time. Will be discharged home. Given return precautions. Will not make any medication adjustments at this time. Other additions or changes: [None] Lab Data Labs: Laboratory Results - last 24 hr 06/06/23 17:40 WBC 12.3 H RBC 4.61 Hgb 13.6 Hct 43.7 MCV 94.8 H MCH 29.5 MCHC 31.1 L RDW Std Deviation 50.2 H RDW Coeff of David 14.3 Plt Count 303 MPV 9.4 Immature Gran % (Auto) 0.400 Neut % (Auto) 80.1 H Lymph % (Auto) 9.0 L [place] % (Auto) 8.4 Eos % (Auto) 1.1 Baso % (Auto) 1.0 Absolute Neuts (auto) 9.9 H Absolute Lymphs (auto) 1.11 Nucleated RBC % 0 Sodium 140 Potassium 4.2 Chloride 109 H Carbon Dioxide 25.0 Anion Gap 6 BUN 14 Creatinine 1.11 Estim Creat Clear Calc 47.93 Est GFR (MDRD) Af Amer 81 Est GFR (MDRD) Non-Af 67 BUN/Creatinine Ratio 12.6 Glucose 140 H Calcium 8.7 Troponin I High Sens 10 B-Natriuretic Peptide 156.3 H Radiography Diagnostic Testing: Clinical Impression(s) from Imaging Studies Chest X-Ray 06/06/23 17:53 IMPRESSION: Nonacute portable x-ray examination of the chest. Electronically Signed: Toño Barbosa MD (Brooks) at 18:22 EDT , Discharge Plan Triage Chief Complaint: Palpitations ED Midlevel Provider: Luz Shook ED Provider: Verenice Chicas Dx/Rx/DC Orders Clinical Impression: Atrial flutter with rapid ventricular response, Encounter for cardioversion procedure, Chronic orthostatic hypotension Instructions: ED Atrial Flutter Prescriptions: No Action rosuvastatin [Crestor] 5 mg tablet 5 mg PO QDAY metoprolol succinate 25 mg tablet extended release 24 hr 25 mg PO DAILY nitroglycerin 0.4 mg tablet, sublingual 0.4 mg sublingual Q5M PRN (Reason: CP) Rx Instructions: do not exceed 3 doses per episode dofetilide 250 mcg capsule 250 mcg PO Q12H Patient Comments: TAKE 1 CAPSULE BY MOUTH EVERY 12 HOURS midodrine 5 mg tablet 5 mg PO TID Patient Comments: take 1 tablet by mouth three times a day finasteride 5 mg tablet 5 mg PO DAILY Patient Comments: take 1 tablet by mouth once daily duloxetine 60 mg capsule,delayed release(DR/EC) See Rx Instructions PO DAILY Rx Instructions: 60 mg (2 caps) orally daily; Jardiance 25 mg tablet 12.5 mg PO DAILY levalbuterol HCl 0.63 mg/3 mL solution for nebulization 0.63 mg INHALATION TID Patient Comments: USE 1 VIAL 3 TIMES A DAY ICaps AREDS2 250 mg-200 unit -12.5 mg-1 mg capsule 1 cap PO DAILY cyanocobalamin (vitamin B-12) 1,000 mcg/mL kit 100 mcg IM QMONTH lorazepam 0.5 mg Tablet 0.5 mg PO QHS Qty: 5 0RF budesonide 0.5 mg/2 mL Suspension For Nebulization 0.5 mg inhalation BID.RT Qty: 0 0RF acetaminophen 500 mg Tablet 1,000 mg PO Q6H PRN PRN (Reason: Pain Score 1-3) Qty: 0 0RF Eliquis 5 mg Tablet 5 mg PO BID Qty: 0 0RF hydrocodone-acetaminophen 5-325 mg Tablet 1 tab PO Q4H PRN PRN (Reason: Pain Score 4-10) Qty: 0 0RF bumetanide 0.5 mg Tablet 1 mg PO MOWEFR Qty: 0 0RF methocarbamol 750 mg tablet 750 mg PO TID 30 Days Qty: 90 0RF Rx Instructions: for neck pain tamsulosin [Flomax] 0.4 mg capsule 0.8 mg PO QHS 30 Days Qty: 60 0RF pantoprazole 40 mg tablet,delayed release (DR/EC) 40 mg PO BID 30 Days Qty: 60 0RF Patient Comments: take 1 tablet by mouth twice a day take before meals Rx Instructions: Before meals tamsulosin 0.4 mg Capsule 0.8 mg PO QHS 30 Days Qty: 60 0RF pantoprazole 40 mg Tablet,Delayed Release (Dr/Ec) 40 mg PO BID 30 Days Qty: 60 0RF hydrocodone-acetaminophen 5-325 mg tablet 1 tab PO Q4H PRN (Reason: pain) 7 Days Qty: 28 0RF cholecalciferol (vitamin D3) 25 mcg (1,000 unit) tablet 25 mcg PO DAILY Primary Care Provider: Arnulfo Rascon Referrals: Arnulfo Rascon MD [Primary Care Provider] - Activity Restrictions/Additional Instructions: You were in a rhythm called atrial flutter with rapid ventricular response. We did synchronized cardioversion to put your heart back into a normal sinus rhythm. Please call your print binding and finishing worker tomorrow for follow-up and continue all your medications as prescribed. Disposition Disposition: Home, Self Care Discharge Date/Time: 06/06/23 20:27
[2023-06-06 17:48] LABS: Absolute Lymphocyte Count 1.11 X10^3/uL (0.83-4.51); Absolute Neutrophil Count 9.9 X10^3/uL (2.0-7.7); Basophil# 0.12 X10^3/uL; Eosinophil# 0.14 X10^3/uL; Eosinophils% 1.1 % (0-5); Hematocrit 43.7 % (40-54); Hemoglobin 13.6 g/dL (13.0-16.5); Lymphocyte # 1.11 X10^3/ul (0.83-4.51); Mean Corp Hgb Conc 31.1 g/dL (32-36); Mean Corpuscular Hgb 29.5 pg (27.0-32.0); Mean Corpuscular Volume 94.8 fL (80-94); Mean Platelet Vol. 9.4 fl (6.2-12.0); Monocyte# 1.04 X10^3/uL; Monocyte% 8.4 % (0-10); NRBC Flagged by Analyzer 0 % (0-5); Neutrophil # 9.85 X10^3/uL (2.7-7.7); Neutrophil % 80.1 % (47-70); Platelet Count 303 K/mm3 (150-450); RBC Distribution Width CV 14.3 % (11.6-14.6); RBC Distribution Width SD 50.2 fl (35.1-43.9); Red Blood Count 4.61 M/mm3 (4.6-6.2); White Blood Count 12.3 K/mm3 (4.4-11.0)
[2023-06-06] MEDS: 0.9% Normal Saline (1000mL) 1,000 ML 999 ML IV (17:49)
--- NOTE | 2023-06-06 17:53 | RAD_ITS ---
STUDY: X-RAY CHEST REASON FOR EXAM: Male, 82 years old. dyspnea TECHNIQUE: AP COMPARISON: 01/21/2022. FINDINGS: EKG leads project over the chest. There are interstitial fibrotic changes of the lungs. No airspace consolidation. There is no demonstrated pleural abnormality. There is mild cardiac enlargement. Normal mediastinum and gregorio. Normal visualized pulmonary arteries. There is atherosclerotic calcification of the aortic arch with tortuosity. No acute bony process. There is no demonstrated abnormality of the visualized soft tissue structures of the upper abdomen. RAD/Chest 1 View (Portable) IMPRESSION: Nonacute portable x-ray examination of the chest. Electronically Signed: Toño Barbosa MD (Brooks) at 18:22 EDT ,
[2023-06-06 18:06] LABS: Anion Gap 6 (5-15); BUN 14 mg/dL (7-18); BUN/Creat Ratio 12.6 RATIO (10-20); Calcium,Total 8.7 mg/dL (8.5-10.1); Chloride 109 mmol/L (98-107); Creatinine, Serum 1.11 mg/dL (0.70-1.30); EST Glomerular Filtration Rate 67 mL/min (>60); Est Glom Filt Rate - Afr Amer 81 mL/min (>60); Estimated Creatinine Clearance 47.93 ml/min; Glucose 140 mg/dL (74-106); Potassium 4.2 mmol/L (3.5-5.1); Sodium Level 140 mmol/L (136-145); Troponin-I HS 10 pg/mL (3.0-78.0)
[2023-06-06 18:31] LABS: BNP,B-Type NATRIURETIC PEPTIDE 156.3 pg/mL (0-100)
[2023-06-06] MEDS: fentaNYL 100 MCG/2 ML Ampul 25 MCG IV (18:51)
[2023-06-06] MEDS: Midazolam 2 MG/2 ML Syringe IV (18:51)
--- NOTE | 2023-06-06 18:54 | EKG12_ITS ---
Test Reason : CP Blood Pressure : / mmHG Vent. Rate : 139 BPM Atrial Rate : 000 BPM P-R Int : 000 ms QRS Dur : 078 ms QT Int : 300 ms P-R-T Axes : 000 -65 061 degrees QTc Int : 456 ms Supraventricular tachycardia with Premature ventricular complexes or Fusion complexes Left axis deviation Nonspecific ST and T wave abnormality Abnormal ECG Confirmed by Brooks Avery ([id number]), photograph editor IVANNA NEWMAN ([id number]) on 06/09/2023 9:03:42 AM Referred By: MANDO/DALTON Confirmed By:Brooks Avery
--- NOTE | 2023-06-06 19:00 | EKG12_ITS ---
Test Reason : POST CARDIOVERSION Blood Pressure : / mmHG Vent. Rate : 084 BPM Atrial Rate : 084 BPM P-R Int : 204 ms QRS Dur : 086 ms QT Int : 358 ms P-R-T Axes : 070 -63 045 degrees QTc Int : 423 ms Normal sinus rhythm Left axis deviation Abnormal ECG Confirmed by Brooks Avery ([id number]), editor city CAREN ROCHA ([id number]) on 06/09/2023 1:56:13 PM Referred By: DALTON Confirmed By:Boroks Avery
[2023-06-06] MEDS: Midodrine HCl 5 MG Tablet PO (19:47)
== END 2023-06-06 20:27 | disposition home or self-care (01) ==
PROVIDERS: Physician Assistant; Emergency Provider Emergency Medicine; PCP Family Medicine; Visit Provider Emergency Medicine
DX: I48.92 Unspecified atrial flutter (principal); J44.9 Chronic obstructive pulmonary disease, unspecified; I11.0 Hypertensive heart disease with heart failure; I50.20 Unspecified systolic (congestive) heart failure; I48.0 Paroxysmal atrial fibrillation; E78.5 Hyperlipidemia, unspecified; I95.89 Other hypotension; I25.10 Atherosclerotic heart disease of native coronary artery without angina pectoris; Z87.891 Personal history of nicotine dependence; Z79.01 Long term (current) use of anticoagulants; Z79.899 Other long term (current) drug therapy
CPT/HCPCS: 71045; 80048; 83880; 84484; 85025; 93005; 96360; 96361; 99284; J7030; A4216

== ENCOUNTER → 2023-10-16 | Outpatient (CLI) | payer MEDICARE, SELFPAY ==
--- NOTE | 2023-10-16 11:22 | RAD_ITS ---
INDICATION: HEMOPTYSIS EXAMINATION/TECHNIQUE: X-RAY - XR Chest 2 Views COMPARISON: Prior study dated: 06/06/2023 FINDINGS: LINES/DEVICES: None. LUNGS: Linear atelectatic changes in the left mid and lower lung zones. Unusual lucency on the lateral view could be due to partial atelectasis. MEDIASTINUM AND CARDIOVASCULAR STRUCTURES: Cardiac silhouette not enlarged. Central airways and mediastinal contour are unremarkable. BONES AND SOFT TISSUES: Unremarkable. RAD/Chest PA and Lateral IMPRESSION: Atelectatic changes in the left lower lung. Unusual lucency on the lateral view. CT scan of the chest might be of value. Electronically Signed: Zachery Bee MD at 12:08 EDT ,
== END | disposition home or self-care (01) ==
PROVIDERS: PCP Family Medicine; Referring Provider Internal Medicine Pulmonary Disease; Visit Provider Internal Medicine Pulmonary Disease
DX: R04.2 Hemoptysis (principal)
CPT/HCPCS: 71046

== ENCOUNTER 2023-10-24 21:33 | Inpatient (IN) | payer MEDICARE, SELFPAY ==
[2023-10-24 21:34] VITALS: BP 88/55; PULSE 106; RESP 16; TEMP 36.8; O2SAT 94
[2023-10-24 21:49] VITALS: BMI 25.8
[2023-10-24 22:05] VITALS: BP 98/61; PULSE 94; RESP 28; TEMP 37.3; O2SAT 92
--- NOTE | 2023-10-24 22:11 | EDS_ITS ---
HPI <Dr. Wing Patel DO - Last Filed: 10/26/23 03:16> History of Present Illness Chief Complaint: General Illness [facility] <Dr. Wing Patel DO - Last Filed: 10/26/23 03:16> [facility] Medical History (Updated 10/25/23 @ 10:[address] Louis Paeg DO) Pulmonary fibrosis Sinus node dysfunction HFrEF (heart failure with reduced ejection fraction) Chronic diarrhea Retroperitoneal hematoma Atherosclerotic heart disease of [place] coronary artery without angina pectoris Obstructive sleep apnea Hyperlipidemia SVT (supraventricular tachycardia) GERD (gastroesophageal reflux disease) COPD (chronic obstructive pulmonary disease) BPH (benign prostatic hyperplasia) Paroxysmal atrial fibrillation Home Medications ?Medication ?Instructions ?Recorded ?Last Taken ?Type rosuvastatin 5 mg tablet (Crestor) 5 mg PO QDAY cholesterol 07/04/17 10/24/23 History cholecalciferol (vitamin D3) 25 25 mcg PO DAILY supplement 05/22/21 10/24/23 History mcg (1,000 unit) tablet metoprolol succinate 25 mg 25 mg PO DAILY AFIB 06/27/21 10/24/23 History tablet,extended release 24 hr nitroglycerin 0.4 mg sublingual 0.4 mg sublingual Q5M PRN CP 06/27/21 Unknown History tablet cyanocobalamin (vitamin B-12) 100 mcg IM QMONTH supplement 03/29/23 10/17/23 History 1,000 mcg/mL injection kit dofetilide 250 mcg capsule 250 mcg PO Q12H afib 03/29/23 10/24/23 History duloxetine 60 mg capsule,delayed See Rx Instructions PO DAILY mood 03/29/23 10/24/23 History release empagliflozin 25 mg tablet 12.5 mg PO DAILY heart 03/29/23 10/24/23 History (Jardiance) finasteride 5 mg tablet 5 mg PO DAILY bph 03/29/23 10/24/23 History levalbuterol HCl 0.63 mg/3 mL 0.63 mg inhalation TID copd 03/29/23 10/24/23 History solution for nebulization midodrine 5 mg tablet 5 mg PO TID blood pressure 03/29/23 10/24/23 History vit C 250 mg-vit E 200 unit-zinc 1 cap PO DAILY supplement 03/29/23 10/24/23 History ox 12.5 bg-qrysow-otucov-zeax capsule (ICaps AREDS2) budesonide 0.5 mg/2 mL suspension 0.5 mg (2 mL) inhalation BID.RT 04/01/23 10/24/23 Rx for nebulization Asthma #0 mL lorazepam 0.5 mg tablet 0.5 mg PO QHS Anxiety #5 tabs 04/01/23 10/23/23 Rx acetaminophen 500 mg tablet 1,000 mg (2 x 500 mg) PO Q6H PRN 04/10/23 10/23/23 Rx PRN Pain Score 1-3 #0 tabs apixaban 5 mg tablet (Eliquis) 5 mg PO BID #0 tabs 04/10/23 10/11/23 Rx bumetanide 0.5 mg tablet 1 mg (2 x 0.5 mg) PO MOWEFR #0 tabs 04/10/23 Unknown Rx methocarbamol 750 mg tablet 750 mg PO TID Muscle Relaxer 30 04/10/23 10/24/23 Rx days #90 tabs tamsulosin 0.4 mg capsule 0.8 mg (2 x 0.4 mg) PO QHS 30 days 04/10/23 10/23/23 Rx #60 caps acetaminophen 300 mg-codeine 30 mg 1 tab PO DAILY 10/24/23 10/24/23 History tablet benzonatate 100 mg capsule 100 mg PO BID PRN cough 10/24/23 Unknown History ezetimibe 10 mg tablet 10 mg PO QHS 10/24/23 Unknown History guaifenesin 1,200 mg tablet, 1,200 mg PO BID 10/24/23 Unknown History extended release 12 hr (Mucinex) pantoprazole 40 mg tablet,delayed 40 mg PO DAILY GERD 10/24/23 Unknown History release tiotropium 2.5 mcg-olodaterol 2.5 2 inh inhalation DAILY 10/24/23 Unknown History mcg/actuation mist for inhalation (Stiolto Respimat) Allergy/AdvReac Type Severity Reaction Status Date / Time tramadol Allergy Unknown PT UNSURE Verified 10/24/23 21:50 OF REACTION Family History Mother , Age 64 from Emphysema COPD (chronic obstructive pulmonary disease) Blood disorder Father No problems noted. Surgical History S/P ablation of atrial fibrillation History of left heart catheterization (05/27/21) History of tonsillectomy History of ankle surgery History of back surgery History of appendectomy History of inguinal hernia repair History of umbilical hernia repair Social History household members: spouse housing: house Smoking Status: Former smoker how long ago did patient quit smokin years ago alcohol intake: current alcohol intake frequency: holidays/special occasions only substance use type: does not use caffeine: Yes Type: coffee Number of servings: 2 EXAM <Dr. Wing Patel, DO - Last Filed: 10/26/23 03:16> Physical Exam Const Vital Signs: 10/25/23 04:00 10/25/23 05:00 10/25/23 05:00 Temperature 98.2 F 98.3 F Temperature Source Oral Oral Pulse Rate 86 105 H 86 Respiratory Rate 20 H 31 H 20 H Blood Pressure 113/77 111/70 110/75 Blood Pressure Mean 89 83 86 Pulse Ox 92 93 96 Oxygen Delivery Method Room Air 10/25/23 06:00 10/25/23 07:00 10/25/23 08:00 Temperature 98.3 F 98.1 F 97.5 F L Temperature Source Oral Oral Oral Pulse Rate 84 80 81 Respiratory Rate 19 H 26 H 26 H Blood Pressure 113/71 124/83 H 118/80 Blood Pressure Mean 85 96 92 Pulse Ox 91 93 93 Oxygen Delivery Method Room Air 10/25/23 09:00 10/25/23 10:00 Temperature 97.5 F L 97.3 F L Temperature Source Oral Oral Pulse Rate 82 93 Respiratory Rate 24 H 24 H Blood Pressure 121/83 H 113/68 Blood Pressure Mean 95 83 Pulse Ox 93 92 Oxygen Delivery Method Room Air Room Air <Dr. Louis Page, DO - Last Filed: 10/25/23 10:33> Physical Exam Const Vital Signs: 10/25/23 04:00 10/25/23 05:00 10/25/23 05:00 Temperature 98.2 F 98.3 F Temperature Source Oral Oral Pulse Rate 86 105 H 86 Respiratory Rate 20 H 31 H 20 H Blood Pressure 113/77 111/70 110/75 Blood Pressure Mean 89 83 86 Pulse Ox 92 93 96 Oxygen Delivery Method Room Air 10/25/23 06:00 10/25/23 07:00 10/25/23 08:00 Temperature 98.3 F 98.1 F 97.5 F L Temperature Source Oral Oral Oral Pulse Rate 84 80 81 Respiratory Rate 19 H 26 H 26 H Blood Pressure 113/71 124/83 H 118/80 Blood Pressure Mean 85 96 92 Pulse Ox 91 93 93 Oxygen Delivery Method Room Air 10/25/23 09:00 10/25/23 10:00 Temperature 97.5 F L 97.3 F L Temperature Source Oral Oral Pulse Rate 82 93 Respiratory Rate 24 H 24 H Blood Pressure 121/83 H 113/68 Blood Pressure Mean 95 83 Pulse Ox 93 92 Oxygen Delivery Method Room Air Room Air [facility] <Dr. Wing Patel, DO - Last Filed: 10/26/23 03:16> [facility] Narrative Medical decision making narrative: HISTORY OF PRESENT ILLNESS: 83-year-old male presents with concern for diffuse weakness, hemoptysis, noted diagnosed recent pneumonia. Notes he tested positive for COVID last night. Notes history of COPD as well. History is provided by patient and daughter. They state for last 3 weeks has been coughing up blood. They note last 2 weeks he has not taken his Eliquis because of hemoptysis. They state there is a teaspoon size of blood noted on tissue when he coughs. They note he initially thought he had pneumonia and was treated with antibiotics and then he was recent diagnosed with COVID last night. He denies any chest pain. Denies history of PE or DVT. Denies focal weakness but notes diffuse weakness and difficulty ambulating getting out of bed. REVIEW OF SYSTEMS: Pertinent positives: Weakness, cough, hemoptysis, shortness of breath Pertinent negatives: Leg swelling, chest pain PHYSICAL EXAM: Nursing triage notes reviewed, Vital signs reviewed Constitutional: please see [facility] HENT: MMM Eyes: Pupils equal round and reactive to light, Extraocular muscles intact Neck: No stridor, no JVD, full neck ROM Lungs: Increased work of breathing, tachypnea, slight suction muscle use, bilateral wheezing, no full consolidation. Heart: Regular rate and rhythm, No murmurs, No rubs and No gallops, 2+ distal pulses (radial, femoral, posterior tibial) in all extremities Abdomen: Soft, there is no tenderness, rigidity, rebound or guarding, no obvious peritoneal signs, no palpable pulsatile abdominal masses, no auscultated abdominal bruit : No CVAT Extremities: 1+ edema in bilateral lower extremities Neuro: No focal neurological deficits, cranial nerves II through XII intact, 5/5 strength in all extremities. Intact sensation to light touch in all extremities, 2+ reflexes bilateral patella tendons. Normal gait. No ataxia. Skin: No rash or lesions noted MEDICAL DECISION MAKING: Chief Complaint: Weakness, hemoptysis External records reviewed: Reviewed prior ED record Factors affecting care: COPD, A-fib (on Eliquis), hyperlipidemia, GERD Social determinants of health: Elderly History obtained from others: Patient's daughter Consults: none MDM Narrative: Patient was initially borderline febrile, tachypneic, was not hypoxic, in the setting of recent COVID diagnosis and COPD. Initial blood pressure was 88/55 however this improved to 112/60 with no intervention. I considered the following differential diagnosis: COVID-19, electrolyte disturbance, PE, ACS, arrhythmia, anemia I obtained a broad lab and imaging workup to further elucidate the etiology of the patient complaint. Specific obtaining a CTA of the chest rule out PE. I treated the patient with 125 of Solu-Medrol, DuoNeb breathing treatment given wheezing. ALL IMAGES (IF OBTAINED) HAVE BEEN PERSONALLY REVIEWED AND INTERPRETED BY MYSELF. EKG with left axis deviation, normal intervals, no STEMI, VBG without evidence of respiratory acidosis or CO2 retention High-sensitivity troponin is negative, no evidence of myocardial ischemia BNP within normal limit suggestive of no increased ventricular stretch or volume overload CBC with no leukocytosis, no anemia or thrombocytopenia BMP without evidence of significant electrolyte abnormalities, no anion gap, no acute kidney injury. CT of the chest showed evidence of a left Upper lobe pulmonary abscess (we will treat with Unasyn Flagyl) The patient ambulated here in the emergency department without significant hypoxia he was saturating 93%. I discussed the case with hospitalist. Spoke to Dr. Yeager. Given evidence of pulmonary abscess she felt the patient be better served at a higher level of care to have access to IR and/or cardiothoracic surgery. Called [facility], Tiffanie Hua, [facility]. They were all boarding patients in the ED. We settled on [facility]. I spoke with their transfer center who took report and planed to call to conference with an internal medicine physician. They stateed it would likely take greater than 6 to 8 hours admit the patient given prolonged waiting. Will continue to monitor the patient here in the emergency department until he is accepted/transferred or until 6-hour ED to floor admit protocol for transfers is met. At 0347 the patient is yet to be accepted. Awaiting a call from [facility]. At 0400 patient was accepted to [facility] under Dr. Beltran. Awaiting a bed. The patient's home Tikosyn and midodrine were ordered. The patient and/or family, caregivers express understanding. The patient and/or family, caregivers agrees with the plan. Shared decision making: I will have a discussion with the patient and or visitors regarding risk/benefits of further testing or admission. They will be made aware of of the risk/benefits inherent in this decision they will be given the opportunity to voice understanding. Total critical care time today provided was at least 0 minutes. This excludes separately billable procedures. Critical care time (if documented) is secondary to the patient having high probability of clinically significant/life threatening deterioration in the patient's condition which required my urgent intervention. Impression: 1. COVID-19 2. Dyspnea 3. History of COPD 4. Pneumonia 5. Pulmonary abscess Dispo: Transfer This note was generated with [employer] dictation software. It may contain incorrect words, spelling, and punctuation that were not noted in review of the chart prior to signing. Lab Data Labs: Laboratory Results - last 24 hr 10/24/23 22:33 WBC 9.5 RBC 4.32 L Hgb 13.4 Hct 41.8 MCV 96.8 H MCH 31.0 MCHC 32.1 RDW Std Deviation 49.6 H RDW Coeff of David 13.9 Plt Count 150 MPV 9.4 Immature Gran % (Auto) 0.700 Neut % (Auto) 81.5 H Lymph % (Auto) 4.7 L [place] % (Auto) 12.1 H Eos % (Auto) 0.5 Baso % (Auto) 0.5 Absolute Neuts (auto) 7.8 H Absolute Lymphs (auto) 0.45 L Nucleated RBC % 0 Sodium 137 Potassium 4.1 Chloride 104 Carbon Dioxide 29.0 Anion Gap 4 L BUN 20 H Creatinine 0.90 Estim Creat Clear Calc 58.06 Est GFR (MDRD) Af Amer 103 Est GFR (MDRD) Non-Af 85 BUN/Creatinine Ratio 22.2 H Glucose 117 H Calcium 8.2 L Troponin I High Sens 7 B-Natriuretic Peptide 75.7 ABG Data ABG results: ABG 10/24/23 22:48 Specimen Type YARIEL Sample Site Not entered VBG pH 7.41 VBG pO2 38 VBG HCO3 23 VBG Total CO2 24 VBG O2 Sat (Calc) 73 H VBG Base Excess -2 L POC Mix VBG pCO2 Pt Tmp 36.4 L O2 Delivery Device Not entered Radiography Diagnostic Testing: Clinical Impression(s) from Imaging Studies Chest CTA 10/25/23 00:00 IMPRESSION: There is a cavitary lesion in the left lung upper lobe measures approximately 7 x 3.5 x 7.9 cm suggesting an abscess. There is ill-defined airspace disease in the left lung lower lobe suggesting pneumonia. No demonstrated pulmonary embolism or arterial dissection. Electronically Signed: Roya Bejarano MD at 1:54 EDT Reading Location ID and State: [facility] / [place] Tel , Service support , <Dr. Louis Page, DO - Last Filed: 10/25/23 10:33> [facility] Lab Data Labs: Laboratory Results - last 24 hr 10/24/23 22:33 WBC 9.5 RBC 4.32 L Hgb 13.4 Hct 41.8 MCV 96.8 H MCH 31.0 MCHC 32.1 RDW Std Deviation 49.6 H RDW Coeff of David 13.9 Plt Count 150 MPV 9.4 Immature Gran % (Auto) 0.700 Neut % (Auto) 81.5 H Lymph % (Auto) 4.7 L [place] % (Auto) 12.1 H Eos % (Auto) 0.5 Baso % (Auto) 0.5 Absolute Neuts (auto) 7.8 H Absolute Lymphs (auto) 0.45 L Nucleated RBC % 0 Sodium 137 Potassium 4.1 Chloride 104 Carbon Dioxide 29.0 Anion Gap 4 L BUN 20 H Creatinine 0.90 Estim Creat Clear Calc 58.06 Est GFR (MDRD) Af Amer 103 Est GFR (MDRD) Non-Af 85 BUN/Creatinine Ratio 22.2 H Glucose 117 H Calcium 8.2 L Troponin I High Sens 7 B-Natriuretic Peptide 75.7 ABG Data ABG results: ABG 10/24/23 22:48 Specimen Type YARIEL Sample Site Not entered VBG pH 7.41 VBG pO2 38 VBG HCO3 23 VBG Total CO2 24 VBG O2 Sat (Calc) 73 H VBG Base Excess -2 L POC Mix VBG pCO2 Pt Tmp 36.4 L O2 Delivery Device Not entered Radiography Diagnostic Testing: Clinical Impression(s) from Imaging Studies Chest CTA 10/25/23 00:00 IMPRESSION: There is a cavitary lesion in the left lung upper lobe measures approximately 7 x 3.5 x 7.9 cm suggesting an abscess. There is ill-defined airspace disease in the left lung lower lobe suggesting pneumonia. No demonstrated pulmonary embolism or arterial dissection. Electronically Signed: Roya Bejarano MD at 1:54 EDT , Management Discussion w/another healthcare provider: Hospitalist Treatment and Re-Evaluation :: Care of the patient was turned over to me pending transfer. Patient has been accepted at [facility] but is still waiting on a bed. Patient was accepted at 0400. It has not been 6 hours since the patient was accepted. Case was discussed with the hospitalist here. He will admit the patient until patient gets a bed at [facility]. Discharge Plan Dx/Rx/DC Orders Clinical Impression: Abscess of lung, COVID-19, COPD (chronic obstructive pulmonary disease) Disposition Disposition: Acute Care Hospital [facility] Discharge Date/Time: 10/25/23 11:05
--- NOTE | 2023-10-24 22:29 | EKG12_ITS ---
Test Reason : DYSRHYTHMIA Blood Pressure : / mmHG Vent. Rate : 089 BPM Atrial Rate : 089 BPM P-R Int : 176 ms QRS Dur : 084 ms QT Int : 358 ms P-R-T Axes : 032 -58 057 degrees QTc Int : 435 ms Normal sinus rhythm Left axis deviation Abnormal ECG Confirmed by TOMÁS DEAN, DORINA ([id number]), editorial clerk IVANNA NEWMAN ([id number]) on 10/26/2023 9:42:31 AM Referred By: Confirmed By:DORINA ENGLAND MD
[2023-10-24] MEDS: MethylPREDNISolone 125 MG/2 ML Vial IV (22:39)
[2023-10-24 22:43] LABS: Absolute Lymphocyte Count 0.45 X10^3/uL (0.83-4.51); Absolute Neutrophil Count 7.8 X10^3/uL (2.0-7.7); Basophil# 0.05 X10^3/uL; Basophil% 0.5 % (0-1); Eosinophil# 0.05 X10^3/uL; Eosinophils% 0.5 % (0-5); Hematocrit 41.8 % (40-54); Hemoglobin 13.4 g/dL (13.0-16.5); Lymphocyte # 0.45 X10^3/ul (0.83-4.51); Lymphocyte % 4.7 % (19-41); Mean Corp Hgb Conc 32.1 g/dL (32-36); Mean Corpuscular Volume 96.8 fL (80-94); Mean Platelet Vol. 9.4 fl (6.2-12.0); Monocyte# 1.15 X10^3/uL; Monocyte% 12.1 % (0-10); NRBC Flagged by Analyzer 0 % (0-5); Neutrophil # 7.77 X10^3/uL (2.7-7.7); Neutrophil % 81.5 % (47-70); POSITIVE DIFFERENTIAL YES; Platelet Count 150 K/mm3 (150-450); RBC Distribution Width CV 13.9 % (11.6-14.6); RBC Distribution Width SD 49.6 fl (35.1-43.9); Red Blood Count 4.32 M/mm3 (4.6-6.2); White Blood Count 9.5 K/mm3 (4.4-11.0)
[2023-10-24 22:46] VITALS: O2SAT 93
[2023-10-24 22:52] LABS: Blood Gas Specimen Type VEN; O2 Delivery Device Not entered; SITE Not entered; VBG BASE EXCESS -2 mmol/L (-1.0-3.5); VBG Bicarbonate 23 mmol/L (22-26); VBG PO2 38 mmHg (25-40); VBG SO2 73 % (50-70); VBG TCO2 24 mmol/L (23-33); VBG pCO2 36.4 mmHg (41-51); VBG pH 7.41 (7.32-7.42)
[2023-10-24 23:00] VITALS: BP 124/73; PULSE 94; RESP 30; TEMP 37.3; O2SAT 93
[2023-10-24] MEDS: Ipratropium/Albuterol Sulfate 3 ML AMPUL.NEB INHALATION (23:00)
[2023-10-24 23:02] VITALS: PULSE 97; RESP 30
[2023-10-24 23:08] LABS: BNP,B-Type NATRIURETIC PEPTIDE 75.7 pg/mL (0-100)
[2023-10-24 23:58] LABS: Anion Gap 4 (5-15); BUN 20 mg/dL (7-18); BUN/Creat Ratio 22.2 RATIO (10-20); Calcium,Total 8.2 mg/dL (8.5-10.1); Chloride 104 mmol/L (98-107); EST Glomerular Filtration Rate 85 mL/min (>60); Est Glom Filt Rate - Afr Amer 103 mL/min (>60); Estimated Creatinine Clearance 58.06 ml/min; Glucose 117 mg/dL (74-106); Potassium 4.1 mmol/L (3.5-5.1); Sodium Level 137 mmol/L (136-145); Troponin-I HS 7 pg/mL (3.0-78.0)
[2023-10-25] VITALS (18 sets, daily range): BP systolic 100–153; BP diastolic 62–83; PULSE 58–105; RESP 18–31; TEMP 36.3–37.3; O2SAT 90–97; BMI 25.7
--- NOTE | 2023-10-25 | CT_ITS ---
STUDY: CTA CHEST REASON FOR EXAM: Male, 83 years old. SOB, hemoptysis RADIATION DOSAGE (If Supplied By Facility): CTDIvol = ( 10.41 ) mGy, DLP = ( 344.36 ) mGycm TECHNIQUE: The examination was performed with the intravenous administration of IV 100mL Isovue-370. Post-processing of the angiographic images was performed, with multiplanar reformation and 3D reconstruction. The protocol utilizes one or more of the following dose reduction techniques: automated exposure control, adjustment of mA and/or kV according to patient size,and/or use of iterative reconstruction technique. COMPARISON: 03/29/2023 FINDINGS: Normal enhancement of the main pulmonary artery and right and left pulmonary arteries. Normal enhancement of the bilateral peripheral pulmonary arteries. There is no demonstrated pulmonary embolism. Normal thoracic aorta and visualized great vessels. There is no demonstrated aortic dissection. Normal heart and pericardium. Normal mediastinum. Normal hilar regions. Normal visualized trachea and bronchi. There is a cavitary lesion in the left lung upper lobe measures approximately 7 x 3.5 x 7.9 cm suggesting an abscess. Emphysematous changes are within both lungs more prominent in the lower lobes. There is ill-defined airspace disease in the left lung lower lobe suggesting pneumonia. Normal chest wall structures. Normal osseous structures. Normal visualized upper abdomen. CT/CTA Chest W/WO Contrast IMPRESSION: There is a cavitary lesion in the left lung upper lobe measures approximately 7 x 3.5 x 7.9 cm suggesting an abscess. There is ill-defined airspace disease in the left lung lower lobe suggesting pneumonia. No demonstrated pulmonary embolism or arterial dissection. Electronically Signed: Roya Bejarano MD at 1:54 EDT ,
[2023-10-25] MEDS: Ampicillin/Sulbactam 3 GM in 0.9% Normal Saline (100mL MB+) 100 ML IV (03:15)
[2023-10-25] MEDS: metroNIDAZOLE 500 MG/100 ML BAG 100 MG IV (04:09)
[2023-10-25] MEDS: Midodrine HCl 5 MG Tablet PO ×3 (08:23→22:37)
[2023-10-25] MEDS: Dofetilide 250 MCG Capsule PO ×2 (09:37→22:37)
--- NOTE | 2023-10-25 13:10 | HP.PCM.HOS_ITS ---
[facility] - [facility] Date of Admission: 10/25/23 HPI Narrative ELIO DORAN, is a 83 M who presents to the hospital secondary to weakness and hemoptysis. 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 He also tested positive for COVID last night and has a history of significant COPD though he does not wear oxygen at baseline and currently is not requiring any oxygen. On admission a CTA of the chest was performed which was negative for PE but did demonstrate a left lung abscess. He was recommended transfer to a higher level of care as we cannot manage a lung abscess at this facility however [facility] is full so they did accept him but they cannot take him yet, as I do not have a bed available. He does have a history of A-fib and he had an ablation which was complicated with a retroperitoneal bleed. He does take Tikosyn and Eliquis at home however the Eliquis has been on hold the last couple of weeks secondary to the hemoptysis, is on a large volume and he is not anemic. [facility] Medical History (Updated 10/25/23 @ 10:[address] Louis Page, DO) Pulmonary fibrosis Sinus node dysfunction HFrEF (heart failure with reduced ejection fraction) Chronic diarrhea Retroperitoneal hematoma Atherosclerotic heart disease of [place] coronary artery without angina pectoris Obstructive sleep apnea Hyperlipidemia SVT (supraventricular tachycardia) GERD (gastroesophageal reflux disease) COPD (chronic obstructive pulmonary disease) BPH (benign prostatic hyperplasia) Paroxysmal atrial fibrillation Home Medications ?Medication ?Instructions ?Recorded ?Last Taken ?Type rosuvastatin 5 mg tablet (Crestor) 5 mg PO QDAY cholesterol 07/04/17 10/24/23 History cholecalciferol (vitamin D3) 25 25 mcg PO DAILY supplement 05/22/21 10/24/23 History mcg (1,000 unit) tablet metoprolol succinate 25 mg 25 mg PO DAILY AFIB 06/27/21 10/24/23 History tablet,extended release 24 hr nitroglycerin 0.4 mg sublingual 0.4 mg sublingual Q5M PRN CP 06/27/21 Unknown History tablet cyanocobalamin (vitamin B-12) 100 mcg IM QMONTH supplement 03/29/23 10/17/23 History 1,000 mcg/mL injection kit dofetilide 250 mcg capsule 250 mcg PO Q12H afib 03/29/23 10/24/23 History duloxetine 60 mg capsule,delayed See Rx Instructions PO DAILY mood 03/29/23 10/24/23 History release empagliflozin 25 mg tablet 12.5 mg PO DAILY heart 03/29/23 10/24/23 History (Jardiance) finasteride 5 mg tablet 5 mg PO DAILY bph 03/29/23 10/24/23 History levalbuterol HCl 0.63 mg/3 mL 0.63 mg inhalation TID copd 03/29/23 10/24/23 History solution for nebulization midodrine 5 mg tablet 5 mg PO TID blood pressure 03/29/23 10/24/23 History vit C 250 mg-vit E 200 unit-zinc 1 cap PO DAILY supplement 03/29/23 10/24/23 History ox 12.5 yf-adqovi-lhjaaq-zeax capsule (ICaps AREDS2) budesonide 0.5 mg/2 mL suspension 0.5 mg (2 mL) inhalation BID.RT 04/01/23 10/24/23 Rx for nebulization Asthma #0 mL lorazepam 0.5 mg tablet 0.5 mg PO QHS Anxiety #5 tabs 04/01/23 10/23/23 Rx acetaminophen 500 mg tablet 1,000 mg (2 x 500 mg) PO Q6H PRN 04/10/23 10/23/23 Rx PRN Pain Score 1-3 #0 tabs apixaban 5 mg tablet (Eliquis) 5 mg PO BID #0 tabs 04/10/23 10/11/23 Rx bumetanide 0.5 mg tablet 1 mg (2 x 0.5 mg) PO MOWEFR #0 tabs 04/10/23 Unknown Rx methocarbamol 750 mg tablet 750 mg PO TID Muscle Relaxer 30 04/10/23 10/24/23 Rx days #90 tabs tamsulosin 0.4 mg capsule 0.8 mg (2 x 0.4 mg) PO QHS 30 days 04/10/23 10/23/23 Rx #60 caps acetaminophen 300 mg-codeine 30 mg 1 tab PO DAILY 10/24/23 10/24/23 History tablet benzonatate 100 mg capsule 100 mg PO BID PRN cough 10/24/23 Unknown History ezetimibe 10 mg tablet 10 mg PO QHS 10/24/23 Unknown History guaifenesin 1,200 mg tablet, 1,200 mg PO BID 10/24/23 Unknown History extended release 12 hr (Mucinex) pantoprazole 40 mg tablet,delayed 40 mg PO DAILY GERD 10/24/23 Unknown History release tiotropium 2.5 mcg-olodaterol 2.5 2 inh inhalation DAILY 10/24/23 Unknown History mcg/actuation mist for inhalation (Stiolto Respimat) Allergy/AdvReac Type Severity Reaction Status Date / Time tramadol Allergy Unknown PT UNSURE Verified 10/24/23 21:50 OF REACTION Family History Mother , Age 64 from Emphysema COPD (chronic obstructive pulmonary disease) Blood disorder Father No problems noted. Surgical History S/P ablation of atrial fibrillation History of left heart catheterization (05/27/21) History of tonsillectomy History of ankle surgery History of back surgery History of appendectomy History of inguinal hernia repair History of umbilical hernia repair Social History household members: spouse housing: house Smoking Status: Former smoker how long ago did patient quit smokin years ago alcohol intake: current alcohol intake frequency: holidays/special occasions only substance use type: does not use caffeine: Yes Type: coffee Number of servings: 2 ROS Constitutional Constitutional: Reports weakness; Denies chills, fatigue, fever(s) or malaise Eyes Eyes: Denies blurry vision ENT HEENT: Denies headache(s) or nasal discharge Cardiovascular Cardiovascular: Denies chest pain, dyspnea on exertion or syncope Respiratory/Chest Respiratory/Chest: Reports hemoptysis and productive cough; Denies cough, shortness of breath at rest or shortness of breath with exertion Gastrointestinal Gastrointestinal: Denies constipation, diarrhea, nausea or vomiting Genitourinary Genitourinary: Denies dysuria Neurologic Neurologic: Denies focal weakness, numbness or tremor(s) Psychiatric Psychiatric: Denies anxiety or depression Vital Signs Vital Signs Vital Signs: 10/24/23 21:34 10/24/23 21:45 10/24/23 22:05 Temperature 98.2 F 99.1 F Temperature Source Temporal Oral Pulse Rate 106 H 94 Respiratory Rate 16 28 H Respiratory Effort Normal Respiratory Pattern Normal Blood Pressure 88/55 L 98/61 Blood Pressure Mean 66 73 Blood Pressure Source Blood Pressure Position Blood Pressure Location Pulse Ox 94 92 Oxygen Delivery Method Room Air Room Air 10/24/23 22:46 10/24/23 23:00 10/24/23 23:00 Temperature 99.1 F Temperature Source Oral Pulse Rate 94 94 Respiratory Rate 30 H 30 H Respiratory Effort Respiratory Pattern Blood Pressure 124/73 H 124/73 H Blood Pressure Mean 90 88 Blood Pressure Source Blood Pressure Position Blood Pressure Location Pulse Ox 93 93 93 Oxygen Delivery Method Room Air Room Air 10/24/23 23:02 10/25/23 00:00 10/25/23 01:00 Temperature 99.2 F H 97.7 F L Temperature Source Oral Oral Pulse Rate 97 92 92 Respiratory Rate 30 H 29 H 27 H Respiratory Effort Respiratory Pattern Tachypnea Blood Pressure 103/73 126/73 H Blood Pressure Mean 83 90 Blood Pressure Source Blood Pressure Position Blood Pressure Location Pulse Ox 93 92 Oxygen Delivery Method Room Air Room Air 10/25/23 02:00 10/25/23 03:00 10/25/23 04:00 Temperature 98.1 F 98.1 F 98.2 F Temperature Source Oral Oral Oral Pulse Rate 87 90 86 Respiratory Rate 26 H 24 H 20 H Respiratory Effort Respiratory Pattern Blood Pressure 100/65 108/66 113/77 Blood Pressure Mean 76 80 89 Blood Pressure Source Blood Pressure Position Blood Pressure Location Pulse Ox 90 90 92 Oxygen Delivery Method Room Air Room Air 10/25/23 05:00 10/25/23 05:00 10/25/23 06:00 Temperature 98.3 F 98.3 F Temperature Source Oral Oral Pulse Rate 105 H 86 84 Respiratory Rate 31 H 20 H 19 H Respiratory Effort Respiratory Pattern Blood Pressure 111/70 110/75 113/71 Blood Pressure Mean 83 86 85 Blood Pressure Source Blood Pressure Position Blood Pressure Location Pulse Ox 93 96 91 Oxygen Delivery Method Room Air 10/25/23 07:00 10/25/23 08:00 10/25/23 09:00 Temperature 98.1 F 97.5 F L 97.5 F L Temperature Source Oral Oral Oral Pulse Rate 80 81 82 Respiratory Rate 26 H 26 H 24 H Respiratory Effort Respiratory Pattern Blood Pressure 124/83 H 118/80 121/83 H Blood Pressure Mean 96 92 95 Blood Pressure Source Blood Pressure Position Blood Pressure Location Pulse Ox 93 93 93 Oxygen Delivery Method Room Air Room Air 10/25/23 10:00 10/25/23 10:49 10/25/23 11:41 Temperature 97.3 F L 97.6 F L 98.5 F Temperature Source Oral Temporal Pulse Rate 93 94 58 L Respiratory Rate 24 H 24 H 20 H Respiratory Effort Respiratory Pattern Blood Pressure 113/68 109/71 153/73 H Blood Pressure Mean 83 83 99 Blood Pressure Source Monitor Blood Pressure Position Semi-Fowlers Blood Pressure Location Right Arm Pulse Ox 92 92 95 Oxygen Delivery Method Room Air Room Air Weight Weight: 169 lb 1.513 oz Body Mass Index (BMI) 25.7 Physical Exam Narrative General: Alert, Oriented x3, Cooperative, No apparent distress HEENT: Atraumatic, PERRLA, EOMI, Normocephalic Oral: Moist Mucosa Neck: Supple, No JVD Lungs: Diminished, Normal air movement, No rhonchi, scattered wheeze, No rales Cardiovascular: Regular rate, Regular Rhythm, Normal S1, Normal S2, No murmurs Abdomen: Soft, Non Tender, Non-Distended, No Hepato-splenomegaly Extremities: Trace edema, Capillary Refill Less than 3 Seconds Skin: No rashes, No breakdown Musculoskeletal: No Tenderness to Palpation of Joints or Extremities Neurological: No focal neurological deficits, Motor Exam 5/5 strength throughout, Sensory exam intact to light touch and pain Psych/Mental Status: Normal Affect, Appropriate Results Lab / Micro Data 10/24/23 22:33 10/24/23 22:33 Labs: Laboratory Results - last 24 hr 10/24/23 22:33: WBC 9.5, RBC 4.32 L, Hgb 13.4, Hct 41.8, MCV 96.8 H, MCH 31.0, MCHC 32.1, RDW Std Deviation 49.6 H, RDW Coeff of David 13.9, Plt Count 150, MPV 9.4, Immature Gran % (Auto) 0.700, Neut % (Auto) 81.5 H, Lymph % (Auto) 4.7 L, M yary % (Auto) 12.1 H, Eos % (Auto) 0.5, Baso % (Auto) 0.5, Absolute Neuts (auto) 7.8 H, Absolute Lymphs (auto) 0.45 L, Nucleated RBC % 0, Sodium 137, Potassium 4.1, Chloride 104, Carbon Dioxide 29.0, Anion Gap 4 L, BUN 20 H, Creatinine 0.90, Estim Creat Clear Calc 58.06, Est GFR (MDRD) Af Amer 103, Est GFR (MDRD) Non-Af 85, BUN/Creatinine Ratio 22.2 H, Glucose 117 H, Calcium 8.2 L, Troponin I High Sens 7, B-Natriuretic Peptide 75.7 Micro: Microbiology 10/25/23 03:30 Nasal Secretion SARS-CoV-2 Antigen (Rapid) - Final SARS-CoV-2 (COVID 19) ABG Data ABG results: ABG 10/24/23 22:48 Specimen Type YARIEL Sample Site Not entered VBG pH 7.41 VBG pO2 38 VBG HCO3 23 VBG Total CO2 24 VBG O2 Sat (Calc) 73 H VBG Base Excess -2 L POC Mix VBG pCO2 Pt Tmp 36.4 L O2 Delivery Device Not entered Imaging Radiology Impression Chest CTA 10/25/23 00:00 IMPRESSION: There is a cavitary lesion in the left lung upper lobe measures approximately 7 x 3.5 x 7.9 cm suggesting an abscess. There is ill-defined airspace disease in the left lung lower lobe suggesting pneumonia. No demonstrated pulmonary embolism or arterial dissection. Electronically Signed: Roya Bejarano MD at 1:54 EDT Reading Location ID and State: [facility] / [place] Tel , Service support , Assessment & Plan Assessment/Plan (1) COVID-19: (2) Abscess of lung: PLAN: Plan 1. Left lung abscess with incidental COVID/COPD ? She is not hypoxic so will not treat the COVID ? Continue with vancomycin and Zosyn ? Pending transfer to [facility] For definitive treatment ? Will continue with his home inhalers for his history of COPD ? Given the lung abscess and the lack of need for steroids, will hold off at this time 2. Essential HTN/HLD/chronic diastolic CHF/A-fib status post ablation ? Will continue with his home blood pressure medications ? Will continue with his Tikosyn as well as his metoprolol ? She is also on midodrine to help support his blood pressure given his blood pressure medications ? Continue with Jardiance being used for his diastolic dysfunction ? Continue with his cholesterol medications ? His last echo in our system was in 2019 with an EF of 65% and stage II diastolic dysfunction with an RVSP of 32 mmHg 3. Anxiety/depression ? Stable ? Continue with his Cymbalta 4. BPH ? Stable Continue with his home medications 5. GERD ? Stable ? Continue with his home medications DVT: SCDs in preparation for transfer and possible intervention 75 minutes was spent on direct patient care, including documentation as well as chart review and collaboration with colleagues Charges/Coding Visit Charges Inpatient E&M: 71146 Init Hosp L3
[2023-10-25] MEDS: Methocarbamol 750 MG Tablet PO ×2 (13:14→22:34)
[2023-10-25] MEDS: Piperacil/Tazobactam 3.375 GM in 0.9% Normal Saline (50mL MB+) 50 ML IV ×2 (13:14→22:40)
[2023-10-25] MEDS: Vancomycin HCl 2,000 MG in 0.9% Normal Saline (500mL Bag) 500 ML 250 MG IV (14:56)
--- NOTE | 2023-10-25 16:36 | PCM.RX.CS ---
Consult Antibiotic Management Pharmacy has been consulted to manage selected antibiotic: Vancomycin Type of Intervention Type of Consult: New start Suspected Infection Suspected Infection: Other Prior Doses of Antibiotics Prior Doses of Antibiotics Received/Current Regimen: Given loading dose of 2000mg iv x 1 on 10.25.23 @3146. Labs Labs: Sodium 137 mmol/L (136-145) 10/24/23 22:33 Potassium 4.1 mmol/L (3.5-5.1) 10/24/23 22:33 Chloride 104 mmol/L (98-107) 10/24/23 22:33 Carbon Dioxide 29.0 mmol/L (21.0-32.0) 10/24/23 22:33 Anion Gap 4 (5-15) L 10/24/23 22:33 BUN 20 mg/dL (7-18) H 10/24/23 22:33 Creatinine 0.90 mg/dL (0.70-1.30) 10/24/23 22:33 Est GFR (MDRD) Af Amer 103 mL/min (>60) 10/24/23 22:33 Est GFR (MDRD) Non-Af 85 mL/min (>60) 10/24/23 22:33 BUN/Creatinine Ratio 22.2 RATIO (10-20) H 10/24/23 22:33 Glucose 117 mg/dL (74-106) H 10/24/23 22:33 Microbiology Microbiology: Microbiology 10/25/23 03:30 Nasal Secretion SARS-CoV-2 Antigen (Rapid) - Final SARS-CoV-2 (COVID 19) Dosing Weight Weight used for dosin.7 kg Estimated Creatinine Clearance Estimated Creatinine Clearance: 58 ml/min Goal Trough Goal Trough: 15-20 mcg/mL Pharmacy Plan for Drug Dosing Pharmacy Plan for Drug Dosing: Recommend dose of 750mg iv q12h starting 12hrs after 2000mg loading dose. Trough level before 4th total dose per protocol. Pharmacy Service will continue to monitor and adjust dosing as required. Follow-Up Labs Follow-Up Labs: Trough: Vancomycin (10.27.23 @0230)
[2023-10-25] MEDS: Ipratropium/Albuterol Sulfate 3 ML AMPUL.NEB INHALATION (18:55)
[2023-10-25] MEDS: Atorvastatin Calcium 10 MG Tablet PO (22:34)
[2023-10-25] MEDS: Ezetimibe 10 MG Tablet PO (22:34)
[2023-10-25] MEDS: LORazepam 0.5 MG Tablet PO (22:34)
[2023-10-25] MEDS: Tamsulosin HCl 0.4 MG Capsule 0.8 MG PO (22:34)
[2023-10-25] MEDS: 0.9% Saline Lock 10 ML Syringe IV (22:40)
[2023-10-26] VITALS (12 sets, daily range): BP systolic 86–114; BP diastolic 50–61; PULSE 78–99; RESP 14–24; TEMP 36.6–38.9; O2SAT 91–95
[2023-10-26] MEDS: Vancomycin HCl 750 MG in 0.9% Normal Saline (250mL Bag) 250 ML 250 MG IV ×2 (03:27→15:35)
[2023-10-26] MEDS: Acetaminophen 500 MG Tablet 1000 MG PO ×2 (03:28→14:29)
[2023-10-26] MEDS: Ipratropium/Albuterol Sulfate 3 ML AMPUL.NEB INHALATION ×3 (05:45→21:16)
[2023-10-26] MEDS: 0.9% Saline Lock 10 ML Syringe IV (05:48)
[2023-10-26] MEDS: Piperacil/Tazobactam 3.375 GM in 0.9% Normal Saline (50mL MB+) 50 ML IV ×3 (05:49→20:50)
[2023-10-26] MEDS: Methocarbamol 750 MG Tablet PO ×3 (06:14→20:51)
[2023-10-26] MEDS: Midodrine HCl 5 MG Tablet PO ×3 (06:14→20:52)
[2023-10-26 06:31] LABS: Basophil# 0.02 X10^3/uL; Basophil% 0.2 % (0-1); Eosinophil# 0.06 X10^3/uL; Eosinophils% 0.6 % (0-5); Hematocrit 39.6 % (40-54); Hemoglobin 12.9 g/dL (13.0-16.5); Lymphocyte % 8.1 % (19-41); Mean Corp Hgb Conc 32.6 g/dL (32-36); Mean Corpuscular Hgb 31.3 pg (27.0-32.0); Mean Corpuscular Volume 96.1 fL (80-94); Mean Platelet Vol. 9.4 fl (6.2-12.0); Monocyte# 0.97 X10^3/uL; Monocyte% 9.8 % (0-10); NRBC Flagged by Analyzer 0 % (0-5); Neutrophil # 7.95 X10^3/uL (2.7-7.7); Neutrophil % 80.8 % (47-70); Platelet Count 153 K/mm3 (150-450); RBC Distribution Width CV 13.8 % (11.6-14.6); RBC Distribution Width SD 48.8 fl (35.1-43.9); Red Blood Count 4.12 M/mm3 (4.6-6.2); White Blood Count 9.9 K/mm3 (4.4-11.0)
[2023-10-26 07:08] LABS: Anion Gap 6 (5-15); BUN 21 mg/dL (7-18); BUN/Creat Ratio 22.9 RATIO (10-20); Calcium,Total 8.3 mg/dL (8.5-10.1); Chloride 104 mmol/L (98-107); Creatinine, Serum 0.92 mg/dL (0.70-1.30); EST Glomerular Filtration Rate 84 mL/min (>60); Est Glom Filt Rate - Afr Amer 101 mL/min (>60); Estimated Creatinine Clearance 56.79 ml/min; Glucose 110 mg/dL (74-106); Potassium 4.2 mmol/L (3.5-5.1); Sodium Level 135 mmol/L (136-145)
--- NOTE | 2023-10-26 09:10 | NURSING ---
[facility] called at this time. No bed currently available, patient remains on list for transfer.
--- NOTE | 2023-10-26 09:31 | PCM.PN.HOSP ---
Subjective Subjective Doing well, not requiring any oxygen. No issues overnight Objective Data Objective Data Vital Signs: Vital Signs Temp Pulse Resp BP Pulse Ox O2 Del Method 98.5 F 99 24 H 86/50 L 95 Room Air 10/26/23 03:24 10/26/23 06:15 10/26/23 05:45 10/26/23 06:15 10/26/23 07:31 10/26/23 07:31 Oxygen Delivery Method Room Air Weight: 169 lb 1.513 oz Body Mass Index (BMI) 25.7 Intake & Output: Intake and Output for Last 24 Hours 10/25/23 10/26/23 10/27/23 03:59 03:59 03:59 Intake Total 190 / 1901 265 / 265 Balance 1901901 265 / 265 Lab / Micro Data 10/26/23 06:10 10/26/23 06:10 Labs: Laboratory Results - last 24 hr 10/26/23 06:10: WBC 9.9, RBC 4.12 L, Hgb 12.9 L, Hct 39.6 L, MCV 96.1 H, MCH 31.3, MCHC 32.6, RDW Std Deviation 48.8 H, RDW Coeff of David 13.8, Plt Count 153, MPV 9.4, Immature Gran % (Auto) 0.500, Neut % (Auto) 80.8 H, Lymph % (Auto) 8.1 L, Noble % (Auto) 9.8, Eos % (Auto) 0.6, Baso % (Auto) 0.2, Absolute Neuts (auto) 8.0 H, Absolute Lymphs (auto) 0.80 L, Nucleated RBC % 0, Sodium 135 L, Potassium 4.2, Chloride 104, Carbon Dioxide 25.0, Anion Gap 6, BUN 21 H, Creatinine 0.92, Estim Creat Clear Calc 56.79, Est GFR (MDRD) Af Amer 101, Est GFR (MDRD) Non-Af 84, BUN/Creatinine Ratio 22.9 H, Glucose 110 H, Calcium 8.3 L Micro: Microbiology 10/25/23 03:30 Nasal Secretion SARS-CoV-2 Antigen (Rapid) - Final SARS-CoV-2 (COVID 19) Physical Exam Narrative General: Alert, Oriented x3, Cooperative, No apparent distress HEENT: Atraumatic, PERRLA, EOMI, Normocephalic Oral: Moist Mucosa Neck: Supple, No JVD Lungs: Diminished, Normal air movement, No rhonchi, scattered wheeze, No rales Cardiovascular: Regular rate, Regular Rhythm, Normal S1, Normal S2, No murmurs Abdomen: Soft, Non Tender, Non-Distended, No Hepato-splenomegaly Extremities: Trace edema, Capillary Refill Less than 3 Seconds Skin: No rashes, No breakdown Musculoskeletal: No Tenderness to Palpation of Joints or Extremities Neurological: No focal neurological deficits, Motor Exam 5/5 strength throughout, Sensory exam intact to light touch and pain Psych/Mental Status: Normal Affect, Appropriate Assessment & Plan Assessment/Plan (1) COVID-19: (2) Abscess of lung: PLAN: Plan 1. Left lung abscess with incidental COVID/COPD ? He is not hypoxic so will not treat the COVID ? Continue with vancomycin and Zosyn ? Pending transfer to [facility] For definitive treatment ? Will continue with his home inhalers for his history of COPD ? Given the lung abscess and the lack of need for steroids, will hold off at this time 2. Essential HTN/HLD/chronic diastolic CHF/A-fib status post ablation ? Will continue with his home blood pressure medications ? Will continue with his Tikosyn as well as his metoprolol ? She is also on midodrine to help support his blood pressure given his blood pressure medications ? Continue with Jardiance being used for his diastolic dysfunction ? Continue with his cholesterol medications ? His last echo in our system was in 2019 with an EF of 65% and stage II diastolic dysfunction with an RVSP of 32 mmHg ? His Eliquis has been on hold secondary to intermittent hemoptysis over the last couple weeks 3. Anxiety/depression ? Stable ? Continue with his Cymbalta 4. BPH ? Stable Continue with his home medications 5. GERD ? Stable ? Continue with his home medications DVT: SCDs in preparation for transfer and possible intervention Charges/Coding Visit Charges Inpatient E&M: 27965 Subs Hosp L2
[2023-10-26] MEDS: DULoxetine Hcl 60 MG Capsule 120 MG PO (09:48)
[2023-10-26] MEDS: Empagliflozin 25 MG Tablet 12.5 MG PO (09:49)
[2023-10-26] MEDS: Finasteride 5 MG Tablet PO (09:50)
[2023-10-26] MEDS: Dofetilide 250 MCG Capsule PO ×2 (09:50→20:52)
[2023-10-26] MEDS: Metoprolol(XL)Succ 25 MG Tablet PO (09:55)
[2023-10-26] MEDS: Pantoprazole Sodium 40 MG Tablet PO (09:58)
--- NOTE | 2023-10-26 10:20 | CASEMGMT ---
Insurance review for hospitals In-network with?[facility] AARP insurance if transfer is recommended is as follows: [facility], Alison, DONALD, Ron, [facility], [facility], [facility], [place], [facility] ([facility]), and . Vivi Salvador, Discharge Planning Asst.
[2023-10-26] MEDS: Tamsulosin HCl 0.4 MG Capsule 0.8 MG PO (20:51)
[2023-10-26] MEDS: guaiFENesin 1,200 MG Tablet 1200 MG PO (20:51)
[2023-10-26] MEDS: Atorvastatin Calcium 10 MG Tablet PO (20:52)
[2023-10-26] MEDS: LORazepam 0.5 MG Tablet PO (20:52)
[2023-10-26] MEDS: Ezetimibe 10 MG Tablet PO (20:55)
[2023-10-27] VITALS (10 sets, daily range): BP systolic 90–114; BP diastolic 45–62; PULSE 77–97; RESP 16–24; TEMP 36.6–38.7; O2SAT 93–96
[2023-10-27 03:06] LABS: Vancomycin, Trough Level 14.6 ug/mL (5.0-15.0)
--- NOTE | 2023-10-27 03:14 | PCM.RX.CS ---
Consult Antibiotic Management Pharmacy has been consulted to manage selected antibiotic: Vancomycin Type of Intervention Type of Consult: Follow-up Suspected Infection Suspected Infection: Other (LUNG ABSCESS/COVID) Prior Doses of Antibiotics Prior Doses of Antibiotics Received/Current Regimen: Vancomycin 750 mg IV given 10/25 @ 0327, and 10/25 @ 1535 Labs Labs: Sodium 135 mmol/L (136-145) L 10/26/23 06:10 Potassium 4.2 mmol/L (3.5-5.1) 10/26/23 06:10 Chloride 104 mmol/L (98-107) 10/26/23 06:10 Carbon Dioxide 25.0 mmol/L (21.0-32.0) 10/26/23 06:10 Anion Gap 6 (5-15) 10/26/23 06:10 BUN 21 mg/dL (7-18) H 10/26/23 06:10 Creatinine 0.92 mg/dL (0.70-1.30) 10/26/23 06:10 Est GFR (MDRD) Af Amer 101 mL/min (>60) 10/26/23 06:10 Est GFR (MDRD) Non-Af 84 mL/min (>60) 10/26/23 06:10 BUN/Creatinine Ratio 22.9 RATIO (10-20) H 10/26/23 06:10 Glucose 110 mg/dL (74-106) H 10/26/23 06:10 Vancomycin Trough 14.6 ug/mL (5.0-15.0) 10/27/23 02:32 Microbiology Microbiology: Microbiology 10/25/23 03:30 Nasal Secretion SARS-CoV-2 Antigen (Rapid) - Final SARS-CoV-2 (COVID 19) Dosing Weight Weight used for dosin.7 kg Estimated Creatinine Clearance Estimated Creatinine Clearance: ~57 Goal Trough Goal Trough: 15-20 mcg/mL Pharmacy Plan for Drug Dosing Pharmacy Plan for Drug Dosing: Vancomycin trough = 14.6, will increase dosing to 1000 mg Q12H Pharmacy Service will continue to monitor and adjust dosing as required. Follow-Up Labs Follow-Up Labs: Trough: Vancomycin Date/Time Labs Ordered Labs to be done on [date and time ordered]: 10/28/23 @ 1430
[2023-10-27] MEDS: Vancomycin IV 1,000 MG/200 ML BAG 200 MG IV ×2 (03:24→15:08)
[2023-10-27] MEDS: Benzonatate 100 MG Capsule PO (03:24)
[2023-10-27] MEDS: Ipratropium/Albuterol Sulfate 3 ML AMPUL.NEB INHALATION ×3 (03:33→19:23)
[2023-10-27] MEDS: Acetaminophen 500 MG Tablet 1000 MG PO (03:37)
[2023-10-27] MEDS: Piperacil/Tazobactam 3.375 GM in 0.9% Normal Saline (50mL MB+) 50 ML IV ×2 (05:29→13:31)
[2023-10-27] MEDS: Methocarbamol 750 MG Tablet PO ×2 (05:29→13:30)
[2023-10-27] MEDS: Midodrine HCl 5 MG Tablet PO ×2 (05:29→13:30)
[2023-10-27] MEDS: DULoxetine Hcl 60 MG Capsule 120 MG PO (10:04)
[2023-10-27] MEDS: Dofetilide 250 MCG Capsule PO (10:05)
[2023-10-27] MEDS: Finasteride 5 MG Tablet PO (10:06)
[2023-10-27] MEDS: Metoprolol(XL)Succ 25 MG Tablet PO (10:06)
[2023-10-27] MEDS: Pantoprazole Sodium 40 MG Tablet PO (10:07)
[2023-10-27] MEDS: guaiFENesin 1,200 MG Tablet 1200 MG PO (10:07)
[2023-10-27] MEDS: Empagliflozin 25 MG Tablet 12.5 MG PO (10:08)
--- NOTE | 2023-10-27 10:25 | PN.HOSP_ITS ---
Subjective Subjective Doing well, no issues overnight. Resting comfortably this morning Objective Data Objective Data Vital Signs: Vital Signs Temp Pulse Resp BP Pulse Ox O2 Del Method 97.9 F 97 16 91/45 L 95 Room Air 10/27/23 10:13 10/27/23 10:13 10/27/23 10:13 10/27/23 10:13 10/27/23 10:13 10/27/23 10:13 Oxygen Delivery Method Room Air Weight: 169 lb 1.513 oz Body Mass Index (BMI) 25.7 Intake & Output: Intake and Output for Last 24 Hours 10/26/23 10/27/23 10/28/23 03:59 03:59 03:59 Intake Total 1902 / 1902 757.08 / 757.08 250 / 250 Output Total 500 / 500 970 / 970 Balance 190 / 1902 257.08 / 257.08 -720 / -720 Lab / Micro Data 10/26/23 06:10 10/26/23 06:10 Labs: Laboratory Results - last 24 hr 10/27/23 02:32: Vancomycin Trough 14.6 Micro: Microbiology 10/25/23 03:30 Nasal Secretion SARS-CoV-2 Antigen (Rapid) - Final SARS-CoV-2 (COVID 19) Physical Exam Narrative General: Alert, Oriented x3, Cooperative, No apparent distress HEENT: Atraumatic, PERRLA, EOMI, Normocephalic Oral: Moist Mucosa Neck: Supple, No JVD Lungs: Diminished, Normal air movement, No rhonchi, scattered wheeze, No rales Cardiovascular: Regular rate, Regular Rhythm, Normal S1, Normal S2, No murmurs Abdomen: Soft, Non Tender, Non-Distended, No Hepato-splenomegaly Extremities: Trace edema, Capillary Refill Less than 3 Seconds Skin: No rashes, No breakdown Musculoskeletal: No Tenderness to Palpation of Joints or Extremities Neurological: No focal neurological deficits, Motor Exam 5/5 strength throughout, Sensory exam intact to light touch and pain Psych/Mental Status: Normal Affect, Appropriate Assessment & Plan Assessment/Plan (1) COVID-19: (2) Abscess of lung: PLAN: Plan 1. Left lung abscess with incidental COVID/COPD ? He is not hypoxic so will not treat the COVID ? Continue with vancomycin and Zosyn ? Pending transfer to [facility] for definitive treatment ? Will continue with his home inhalers for his history of COPD ? Given the lung abscess and the lack of need for steroids, will hold off at this time ? No sick contacts and no recent international travel TB is unlikely 2. Essential HTN/HLD/chronic diastolic CHF/A-fib status post ablation ? Will continue with his home blood pressure medications ? Will continue with his Tikosyn as well as his metoprolol ? He is also on midodrine to help support his blood pressure given his blood pressure medications ? Continue with Jardiance being used for his diastolic dysfunction ? Continue with his cholesterol medications ? His last echo in our system was in 2019 with an EF of 65% and stage II diastolic dysfunction with an RVSP of 32 mmHg ? His Eliquis has been on hold secondary to intermittent hemoptysis over the last couple weeks 3. Anxiety/depression ? Stable ? Continue with his Cymbalta 4. BPH ? Stable ?Continue with his home medications 5. GERD ? Stable ? Continue with his home medications DVT: SCDs in preparation for transfer and possible intervention Charges/Coding Visit Charges Inpatient E&M: 59038 Subs Hosp L2
[2023-10-27] MEDS: Budesonide Respules 0.5 MG/2 ML AMPUL.NEB. INHALATION ×2 (13:12→19:23)
--- NOTE | 2023-10-27 14:26 | CHAPLAIN ---
Type of Pastoral Visit ___ Initial Visit ___ Follow-up Visit ___ On-call Visit ___ General Patient Visit ___ Spiritual Assessment ___ Family Conference ___ Bereavement ___ Rapid Response ___ Code Blue _x__ Other (describe below) Pastoral Care Referral From ___ Patient _x__ Family ___ Nurse ___ Physician ___ Violin Tutor ___ Cone Cleaner ___ Other (describe below) Sacrament/Intervention _x__ Active listening ___ Anointing ___ Temple ___ Bereavement ___ Communion ___ Nannette exploration ___ ___ Life review ___ Prayer ___ Reconciliation ___ Sacrament of Sick ___ Supportive presence ___ Wedding ___ Other (describe below) Pastoral Comments patient is in isolation and is currently sleeping; daughter was available to talk with and she says that yesterday was a bad day but he is doing better now; daughter states that they have had pastoral care support and many people are praying; daughter prefers that patient not be disturbed at this time; offer of support given to a time when patient or family desire
--- NOTE | 2023-10-27 15:34 | NURSING ---
[facility] called for bed update, no beds available at this time. Patient remains on list. Dr. Francisco aware.
--- NOTE | 2023-11-09 07:22 | PCM.DC.SUM ---
Providers Date of Admission: 10/25/23 Date of Discharge: 10/27/23 Primary Care Physician: Dr. Arnulfo Rascon MD Consultations 10/27/23 15:32 Consult: Infectious Disease Routine Consulting Provider: Sylvester Galloway Reason for Consult: pulmonary abscess EMERGENT Consult: No MD Notified: Yes Date Notified: 10/27/23 Time Notified: 15:32 Method of Notification: Text Reason For Visit: PULMONARY ABSCESS Diagnosis Discharge Diagnosis (1) COVID-19: Status: Acute Code(s): U07.1 - COVID-19 (2) Abscess of lung: Status: Acute Code(s): J85.2 - Abscess of lung without pneumonia Plan 1. Left lung abscess with incidental COVID/COPD ? He is not hypoxic so will not treat the COVID ? Continue with vancomycin and Zosyn ? Pending transfer to [facility] for definitive treatment ? Will continue with his home inhalers for his history of COPD ? Given the lung abscess and the lack of need for steroids, will hold off at this time ? No sick contacts and no recent international travel TB is unlikely 2. Essential HTN/HLD/chronic diastolic CHF/A-fib status post ablation ? Will continue with his home blood pressure medications ? Will continue with his Tikosyn as well as his metoprolol ? He is also on midodrine to help support his blood pressure given his blood pressure medications ? Continue with Jardiance being used for his diastolic dysfunction ? Continue with his cholesterol medications ? His last echo in our system was in 2019 with an EF of 65% and stage II diastolic dysfunction with an RVSP of 32 mmHg ? His Eliquis has been on hold secondary to intermittent hemoptysis over the last couple weeks 3. Anxiety/depression ? Stable ? Continue with his Cymbalta 4. BPH ? Stable ?Continue with his home medications 5. GERD ? Stable ? Continue with his home medications DVT: SCDs in preparation for transfer and possible intervention Medications at Discharge Home Medications rosuvastatin 5 mg tablet (Crestor) 5 mg PO QDAY cholesterol 07/04/17 cholecalciferol (vitamin D3) 25 mcg (1,000 unit) tablet 25 mcg PO DAILY supplement 05/22/21 metoprolol succinate 25 mg tablet,extended release 24 hr 25 mg PO DAILY AFIB 06/27/21 nitroglycerin 0.4 mg sublingual tablet 0.4 mg sublingual Q5M PRN CP 06/27/21 cyanocobalamin (vitamin B-12) 1,000 mcg/mL injection kit 100 mcg IM QMONTH supplement 03/29/23 dofetilide 250 mcg capsule 250 mcg PO Q12H afib 03/29/23 duloxetine 60 mg capsule,delayed release See Rx Instructions PO DAILY mood 03/29/23 empagliflozin 25 mg tablet (Jardiance) 12.5 mg PO DAILY heart 03/29/23 finasteride 5 mg tablet 5 mg PO DAILY bph 03/29/23 levalbuterol HCl 0.63 mg/3 mL solution for nebulization 0.63 mg inhalation TID copd 03/29/23 midodrine 5 mg tablet 5 mg PO TID blood pressure 03/29/23 vit C 250 mg-vit E 200 unit-zinc ox 12.5 kz-abkuzm-hkidhx-zeax capsule (ICaps AREDS2) 1 cap PO DAILY supplement 03/29/23 budesonide 0.5 mg/2 mL suspension for nebulization 0.5 mg (2 mL) inhalation BID.RT Asthma #0 mL 04/01/23 lorazepam 0.5 mg tablet 0.5 mg PO QHS Anxiety #5 tabs 04/01/23 acetaminophen 500 mg tablet 1,000 mg (2 x 500 mg) PO Q6H PRN PRN Pain Score 1-3 #0 tabs 04/10/23 apixaban 5 mg tablet (Eliquis) 5 mg PO BID #0 tabs 04/10/23 bumetanide 0.5 mg tablet 1 mg (2 x 0.5 mg) PO MOWEFR #0 tabs 04/10/23 methocarbamol 750 mg tablet 750 mg PO TID Muscle Relaxer 30 days #90 tabs 04/10/23 tamsulosin 0.4 mg capsule 0.8 mg (2 x 0.4 mg) PO QHS 30 days #60 caps 04/10/23 acetaminophen 300 mg-codeine 30 mg tablet 1 tab PO DAILY 10/24/23 benzonatate 100 mg capsule 100 mg PO BID PRN cough 10/24/23 ezetimibe 10 mg tablet 10 mg PO QHS 10/24/23 guaifenesin 1,200 mg tablet, extended release 12 hr (Mucinex) 1,200 mg PO BID 10/24/23 pantoprazole 40 mg tablet,delayed release 40 mg PO DAILY GERD 10/24/23 tiotropium 2.5 mcg-olodaterol 2.5 mcg/actuation mist for inhalation (Stiolto Respimat) 2 inh inhalation DAILY 10/24/23 Hospital Course Operations None Procedures None Summary of Care Provided Minutes Spent on Discharge: 32 Hospital Course: Per HPI: ELIO DORAN, is a 83 M who presents to the hospital secondary to weakness and hemoptysis. 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 He also tested positive for COVID last night and has a history of significant COPD though he does not wear oxygen at baseline and currently is not requiring any oxygen. On admission a CTA of the chest was performed which was negative for PE but did demonstrate a left lung abscess. He was recommended transfer to a higher level of care as we cannot manage a lung abscess at this facility however [facility] is full so they did accept him but they cannot take him yet, as I do not have a bed available. He does have a history of A-fib and he had an ablation which was complicated with a retroperitoneal bleed. He does take Tikosyn and Eliquis at home however the Eliquis has been on hold the last couple of weeks secondary to the hemoptysis, is on a large volume and he is not anemic. Hospital Course: 1. Left lung abscess with incidental COVID/COPD ? He is not hypoxic so will not treat the COVID ? Continue with vancomycin and Zosyn ? Pending transfer to [facility] for definitive treatment ? Will continue with his home inhalers for his history of COPD ? Given the lung abscess and the lack of need for steroids, will hold off at this time ? No sick contacts and no recent international travel TB is unlikely - He received a bed at [facility] and was discharged for evaluation and definitive treatment of his pulmonary abscess on 10/27/2023 2. Essential HTN/HLD/chronic diastolic CHF/A-fib status post ablation ? Will continue with his home blood pressure medications ? Will continue with his Tikosyn as well as his metoprolol ? He is also on midodrine to help support his blood pressure given his blood pressure medications ? Continue with Jardiance being used for his diastolic dysfunction ? Continue with his cholesterol medications ? His last echo in our system was in 2019 with an EF of 65% and stage II diastolic dysfunction with an RVSP of 32 mmHg ? His Eliquis has been on hold secondary to intermittent hemoptysis over the last couple weeks 3. Anxiety/depression ? Stable ? Continue with his Cymbalta 4. BPH ? Stable ?Continue with his home medications 5. GERD ? Stable ? Continue with his home medications Physical Exam Narrative General: Alert, Oriented x3, Cooperative, No apparent distress HEENT: Atraumatic, PERRLA, EOMI, Normocephalic Oral: Moist Mucosa Neck: Supple, No JVD Lungs: Diminished, Normal air movement, No rhonchi, scattered wheeze, No rales Cardiovascular: Regular rate, Regular Rhythm, Normal S1, Normal S2, No murmurs Abdomen: Soft, Non Tender, Non-Distended, No Hepato-splenomegaly Extremities: Trace edema, Capillary Refill Less than 3 Seconds Skin: No rashes, No breakdown Musculoskeletal: No Tenderness to Palpation of Joints or Extremities Neurological: No focal neurological deficits, Motor Exam 5/5 strength throughout, Sensory exam intact to light touch and pain Psych/Mental Status: Normal Affect, Appropriate Weight / BMI Weight Weight: 169 lb 1.513 oz Body Mass Index (BMI) 25.7 ABG / Lab / Microbiology Data 10/26/23 06:10 10/26/23 06:10 Microbiology: Microbiology 10/25/23 03:30 Nasal Secretion SARS-CoV-2 Antigen (Rapid) - Final SARS-CoV-2 (COVID 19) Meaningful Use Info Meaningful Use Meaningful Use Diagnoses (Choose all that apply): None applicable Ischemic Stroke Statin Dosing Therapy Reference: STATIN DOSE THERAPY REFERENCE: * Patients > 75 years receive moderate or high dose statin therapy. * Patients 75 years or YOUNGER should receive HIGH intensity statin dose unless contraindicated. You will be required to document reason for non-treatment if statin daily dose does not meet guidelines. HIGH DOSE STATIN THERAPY DAILY Atorvastatin > than or = to 40 mg Rosuvastatin > than or = to 20 mg Amlodipine + Atorvastatin > than or = to 2.5/40 mg Ezetimibe + Simvastatin 10/80 mg Simvastatin 80mg Discharge Plan Admission Admit Date/Time: 10/25/23 10:31 Attending Provider: Sunny Francisco Primary Care Provider: Arnulfo Rascon Consulting Providers: Sylvester Galloway Discharge Orders/Prescriptions Prescriptions: No Action rosuvastatin [Crestor] 5 mg tablet 5 mg PO QDAY metoprolol succinate 25 mg tablet extended release 24 hr 25 mg PO DAILY nitroglycerin 0.4 mg tablet, sublingual 0.4 mg sublingual Q5M PRN (Reason: CP) Rx Instructions: do not exceed 3 doses per episode dofetilide 250 mcg capsule 250 mcg PO Q12H Patient Comments: TAKE 1 CAPSULE BY MOUTH EVERY 12 HOURS midodrine 5 mg tablet 5 mg PO TID Patient Comments: Takes in the morning and evening and the afternoon dose is PRN if he needs it. finasteride 5 mg tablet 5 mg PO DAILY Patient Comments: take 1 tablet by mouth once daily duloxetine 60 mg capsule,delayed release(DR/EC) See Rx Instructions PO DAILY Rx Instructions: 60 mg (2 caps) orally daily; Jardiance 25 mg tablet 12.5 mg PO DAILY levalbuterol HCl 0.63 mg/3 mL solution for nebulization 0.63 mg INHALATION TID Patient Comments: USE 1 VIAL 3 TIMES A DAY ICaps AREDS2 250 mg-200 unit -12.5 mg-1 mg capsule 1 cap PO DAILY cyanocobalamin (vitamin B-12) 1,000 mcg/mL kit 100 mcg IM QMONTH lorazepam 0.5 mg Tablet 0.5 mg PO QHS Qty: 5 0RF budesonide 0.5 mg/2 mL Suspension For Nebulization 0.5 mg inhalation BID.RT Qty: 0 0RF acetaminophen 500 mg Tablet 1,000 mg PO Q6H PRN PRN (Reason: Pain Score 1-3) Qty: 0 0RF Eliquis 5 mg Tablet 5 mg PO BID Qty: 0 0RF bumetanide 0.5 mg Tablet 1 mg PO MOWEFR Qty: 0 0RF methocarbamol 750 mg tablet 750 mg PO TID 30 Days Qty: 90 0RF Rx Instructions: for neck pain tamsulosin 0.4 mg Capsule 0.8 mg PO QHS 30 Days Qty: 60 0RF acetaminophen-codeine 300-30 mg tablet 1 tab PO DAILY pantoprazole 40 mg tablet,delayed release (DR/EC) 40 mg PO DAILY Patient Comments: take 1 tablet by mouth twice a day take before meals Rx Instructions: Before meals ezetimibe 10 mg tablet 10 mg PO QHS benzonatate 100 mg capsule 100 mg PO BID PRN (Reason: cough) guaifenesin [Mucinex] 1,200 mg tablet extended release 12hr 1,200 mg PO BID Stiolto Respimat 2.5-2.5 mcg/actuation mist 2 inh inhalation DAILY cholecalciferol (vitamin D3) 25 mcg (1,000 unit) tablet 25 mcg PO DAILY Referrals / Follow Up: Arnulfo Rascon MD [Primary Care Provider] - Disposition Disposition (needs filled in before D/C Order can be placed): Acute Care Hospital Charges/Coding Visit Charges Inpatient E&M: 64324 Disch Hosp >30min
== END 2023-10-27 20:30 | disposition short-term general hospital (02) | DRG 177 ==
LOC: ED 10-25 10:33 → MS3 10-25 11:00
PROVIDERS: Admitting Provider Family Medicine; Emergency Provider Emergency Medicine; PCP Family Medicine; Visit Provider Family Medicine
DX: U07.1 COVID-19 (principal); J85.1 Abscess of lung with pneumonia; J12.82 Pneumonia due to coronavirus disease 2019; J15.9 Unspecified bacterial pneumonia; I50.32 Chronic diastolic (congestive) heart failure; J44.0 Chronic obstructive pulmonary disease with (acute) lower respiratory infection; R04.2 Hemoptysis; I11.0 Hypertensive heart disease with heart failure; F32.A Depression, unspecified; I48.91 Unspecified atrial fibrillation; K21.9 Gastro-esophageal reflux disease without esophagitis; I25.10 Atherosclerotic heart disease of native coronary artery without angina pectoris; E78.5 Hyperlipidemia, unspecified; F41.9 Anxiety disorder, unspecified; N40.0 Benign prostatic hyperplasia without lower urinary tract symptoms; Z79.02 Long term (current) use of antithrombotics/antiplatelets; Z79.84 Long term (current) use of oral hypoglycemic drugs; Z79.899 Other long term (current) drug therapy; Z87.891 Personal history of nicotine dependence
CPT/HCPCS: 36415; 71275; 80048; 80202; 82803; 83880; 84484; 85025; 87426; 93005; 94640; 94668; 99285; J7030; J7040; J7050; Q9967; A4216; J0295

== ENCOUNTER → 2023-11-03 | Outpatient (CLI) | payer MEDICARE, SELFPAY ==
--- NOTE | 2023-11-03 13:06 | RAD_ITS ---
STUDY: X-RAY CHEST REASON FOR EXAM: Male, 83 years old. COUGH, HEMOPTYSIS TECHNIQUE: PA and lateral views of the chest. COMPARISON: Comparison is made with prior examination October 16, 2023. FINDINGS: Hyperinflation. There is a 3.6 cm x 4 cm nodule in the lateral aspect of the left upper lobe. This was not seen on prior study. This may represent fluid in the left major fissure. Correlation with CT scan recommended. There is evidence of a increased markings at the lung bases suggestive of chronic scarring. There is no demonstrated pleural abnormality. Normal size heart. Normal mediastinum and gregorio. Normal visualized pulmonary arteries. There is atherosclerotic calcification of the aortic arch with tortuosity. There is demineralization of the osseous structures. Normal visualized ribs, clavicles, and shoulders. There is no demonstrated abnormality of the visualized soft tissue structures of the upper abdomen. RAD/Chest PA and Lateral IMPRESSION: Hyperinflation. There is a new 3.6 x 4 cm well-defined nodule in the peripheral lateral aspect of the left upper lobe as described. This was not present on prior study. Correlation with CT scan is recommended. Stable bilateral scarring. Electronically Signed: Chris Ventura MD at 14:20 EDT ,
[2023-11-03 13:08] LABS: Absolute Lymphocyte Count 0.81 X10^3/uL (0.83-4.51); Absolute Neutrophil Count 7.4 X10^3/uL (2.0-7.7); Basophil# 0.05 X10^3/uL; Basophil% 0.5 % (0-1); Eosinophil# 0.28 X10^3/uL; Hematocrit 38.7 % (40-54); Hemoglobin 12.6 g/dL (13.0-16.5); Lymphocyte # 0.81 X10^3/ul (0.83-4.51); Lymphocyte % 8.8 % (19-41); Mean Corp Hgb Conc 32.6 g/dL (32-36); Mean Corpuscular Hgb 30.8 pg (27.0-32.0); Mean Corpuscular Volume 94.6 fL (80-94); Mean Platelet Vol. 8.8 fl (6.2-12.0); Monocyte# 0.53 X10^3/uL; Monocyte% 5.7 % (0-10); NRBC Flagged by Analyzer 0 % (0-5); Neutrophil % 80.3 % (47-70); Platelet Count 256 K/mm3 (150-450); RBC Distribution Width CV 13.2 % (11.6-14.6); RBC Distribution Width SD 45.6 fl (35.1-43.9); Red Blood Count 4.09 M/mm3 (4.6-6.2); White Blood Count 9.2 K/mm3 (4.4-11.0)
[2023-11-03 13:45] LABS: CRP 6.46 mg/L (0.0-3.0)
[2023-11-04 14:20] LABS: Erythrocyte Sedimentation Rate 39 mm/hr (0-20)
== END | disposition home or self-care (01) ==
PROVIDERS: PCP Family Medicine; Referring Provider Internal Medicine Pulmonary Disease; Visit Provider Internal Medicine Pulmonary Disease
DX: R04.2 Hemoptysis (principal)
CPT/HCPCS: 36415; 71046; 85025; 85652; 86140

== ENCOUNTER → 2023-11-06 | Outpatient (CLI) | payer MEDICARE, SELFPAY ==
[2023-11-09 14:08] LABS: Anti-Scleroderma-70 AB <0.2 AI (0.0-0.9); Anti-dsDNA Ab <1 IU/mL (0-9); CRP, High Sensitivity 3.57 mg/L (0.00-3.00); SJOGREN'S Anti-SS-A test < 0.2 AI (0.0-0.9); SJOGREN'S Anti-SS-B test < 0.2 AI (0.0-0.9)
[2023-11-10 08:11] LABS: Angiotensin Convert Enzyme 26 U/L (14-82); Anti-Smooth Muscle ABS 3 Units (0-19); CCP IgG Antibodies 5 units (0-19); Cytoplasmic Ab (C-ANCA) <1:20 titer (Neg:<1:20); Perinuclear Ab (P-ANCA) <1:20 titer (Neg:<1:20)
== END | disposition home or self-care (01) ==
PROVIDERS: PCP Family Medicine; Referring Provider Internal Medicine Pulmonary Disease; Visit Provider Internal Medicine Pulmonary Disease
DX: R04.2 Hemoptysis (principal); R05.9 Cough, unspecified
CPT/HCPCS: 36415; 82164; 83516; 86141; 86200; 86225; 86235; 86256

== ENCOUNTER 2023-11-11 10:57 | Emergency (ER) | payer MEDICARE, SELFPAY ==
[2023-11-11] VITALS (10 sets, daily range): BP systolic 87–98; BP diastolic 45–76; PULSE 76–86; RESP 16–25; TEMP 36.2–36.9; O2SAT 85–94; BMI 25.9
--- NOTE | 2023-11-11 11:31 | EKG12_ITS ---
Test Reason : SOB Blood Pressure : / mmHG Vent. Rate : 080 BPM Atrial Rate : 080 BPM P-R Int : 198 ms QRS Dur : 086 ms QT Int : 372 ms P-R-T Axes : 033 -53 043 degrees QTc Int : 429 ms Sinus rhythm with Premature atrial complexes Left axis deviation Abnormal ECG Confirmed by Brooks Avery ([id number]), news copy editor CAREN ROCHA ([id number]) on 11/12/2023 2:04:50 PM Referred By: Confirmed By:Brooks Avery
--- NOTE | 2023-11-11 11:34 | ED.VIS.DYS ---
HPI History of Present Illness Chief Complaint: Shortness of Breath Informant: patient and family Narrative Narrative: 83-year-old male with underlying emphysema presenting to the emergency department with a chief complaint of hypoxia. Patient was admitted into the hospital earlier this month with COVID-19 and found to have lung abscess. Patient was subsequently transferred to [facility] and was discharged home on Augmentin. He followed up with local pulmonology (Dr. Donald). He was recently changed to clindamycin. Family states that he has continued to have hypoxia with exertion down into the low 80s. Last night he struggled with hypoxia even at rest and sustained a fall but was uninjured from the fall. Family notes that he has been experiencing chest pain described as heartburn that radiates up into his neck. This started with the clindamycin. No recent fevers. They note very poor appetite. Family notes there was no surgery at [facility]. He has not been on home IV medications. [facility] Medical History Pulmonary fibrosis Sinus node dysfunction HFrEF (heart failure with reduced ejection fraction) Chronic diarrhea Retroperitoneal hematoma Atherosclerotic heart disease of [place] coronary artery without angina pectoris Obstructive sleep apnea Hyperlipidemia SVT (supraventricular tachycardia) GERD (gastroesophageal reflux disease) COPD (chronic obstructive pulmonary disease) BPH (benign prostatic hyperplasia) Paroxysmal atrial fibrillation Home Medications ?Medication ?Instructions ?Recorded ?Last Taken ?Type rosuvastatin 5 mg tablet (Crestor) 5 mg PO QDAY cholesterol 07/04/17 10/24/23 History cholecalciferol (vitamin D3) 25 25 mcg PO DAILY supplement 05/22/21 10/24/23 History mcg (1,000 unit) tablet metoprolol succinate 25 mg 25 mg PO DAILY AFIB 06/27/21 10/24/23 History tablet,extended release 24 hr nitroglycerin 0.4 mg sublingual 0.4 mg sublingual Q5M PRN CP 06/27/21 Unknown History tablet cyanocobalamin (vitamin B-12) 100 mcg IM QMONTH supplement 03/29/23 10/17/23 History 1,000 mcg/mL injection kit dofetilide 250 mcg capsule 250 mcg PO Q12H afib 03/29/23 10/24/23 History duloxetine 60 mg capsule,delayed See Rx Instructions PO DAILY mood 03/29/23 10/24/23 History release empagliflozin 25 mg tablet 12.5 mg PO DAILY heart 03/29/23 10/24/23 History (Jardiance) finasteride 5 mg tablet 5 mg PO DAILY bph 03/29/23 10/24/23 History levalbuterol HCl 0.63 mg/3 mL 0.63 mg inhalation TID copd 03/29/23 10/24/23 History solution for nebulization midodrine 5 mg tablet 5 mg PO TID blood pressure 03/29/23 10/24/23 History vit C 250 mg-vit E 200 unit-zinc 1 cap PO DAILY supplement 03/29/23 10/24/23 History ox 12.5 [id number] capsule (ICaps AREDS2) budesonide 0.5 mg/2 mL suspension 0.5 mg (2 mL) inhalation BID.RT 04/01/23 10/24/23 Rx for nebulization Asthma #0 mL lorazepam 0.5 mg tablet 0.5 mg PO QHS Anxiety #5 tabs 04/01/23 10/23/23 Rx acetaminophen 500 mg tablet 1,000 mg (2 x 500 mg) PO Q6H PRN 04/10/23 10/23/23 Rx PRN Pain Score 1-3 #0 tabs apixaban 5 mg tablet (Eliquis) 5 mg PO BID #0 tabs 04/10/23 10/11/23 Rx bumetanide 0.5 mg tablet 1 mg (2 x 0.5 mg) PO MOWEFR #0 tabs 04/10/23 Unknown Rx methocarbamol 750 mg tablet 750 mg PO TID Muscle Relaxer 30 04/10/23 10/24/23 Rx days #90 tabs tamsulosin 0.4 mg capsule 0.8 mg (2 x 0.4 mg) PO QHS 30 days 04/10/23 10/23/23 Rx #60 caps acetaminophen 300 mg-codeine 30 mg 1 tab PO DAILY 10/24/23 10/24/23 History tablet benzonatate 100 mg capsule 100 mg PO BID PRN cough 10/24/23 Unknown History ezetimibe 10 mg tablet 10 mg PO QHS 10/24/23 Unknown History guaifenesin 1,200 mg tablet, 1,200 mg PO BID 10/24/23 Unknown History extended release 12 hr (Mucinex) pantoprazole 40 mg tablet,delayed 40 mg PO DAILY GERD 10/24/23 Unknown History release tiotropium 2.5 mcg-olodaterol 2.5 2 inh inhalation DAILY 10/24/23 Unknown History mcg/actuation mist for inhalation (Stiolto Respimat) Allergy/AdvReac Type Severity Reaction Status Date / Time tramadol Allergy Unknown PT UNSURE Verified 11/11/23 11:00 OF REACTION Family History Mother , Age 64 from Emphysema COPD (chronic obstructive pulmonary disease) Blood disorder Father No problems noted. Surgical History S/P ablation of atrial fibrillation History of left heart catheterization (05/27/21) History of tonsillectomy History of ankle surgery History of back surgery History of appendectomy History of inguinal hernia repair History of umbilical hernia repair Social History household members: spouse housing: house Smoking Status: Former smoker how long ago did patient quit smokin years ago alcohol intake: current alcohol intake frequency: holidays/special occasions only substance use type: does not use caffeine: Yes Type: coffee Number of servings: 2 ROS ROS ED ROS Narrative Generalized fatigue poor appetite Constitutional Constitutional ED: Denies chills, fever(s) or weight loss Eyes Eyes: Denies change in vision or diplopia ENT ENT ED: Denies ear pain, rhinorrhea or sore throat Cardiovascular Cardiovascular: Reports chest pain; Denies orthopnea, palpitations or racing heartbeat Respiratory/Chest Respiratory/Chest: Reports cough, dyspnea and dyspnea on exertion; Denies orthopnea Gastrointestinal Gastrointestinal: Reports abdominal pain; Denies diarrhea, nausea or vomiting Genitourinary Genitourinary ED: Denies dysuria, hematuria or urinary frequency Musculoskeletal Musculoskeletal: Denies arthralgias or myalgias Integumentary Denies abscess or rash Neurologic Neurologic: Denies headache(s) or weakness Psychiatric Psychiatric: Denies anxiety, depression, suicidal ideation or suicidal thoughts Endocrine Endocrinology: Denies polydipsia, polyphagia or polyuria Allergic/Immunologic Allergic/Immunologic ED: Denies mouth swelling, tongue swelling or urticaria EXAM Physical Exam Const Vital Signs: 11/11/23 10:58 11/11/23 11:13 11/11/23 11:40 Temperature 97.1 F L Temperature Source Temporal Pulse Rate 80 86 Respiratory Rate 18 16 Respiratory Effort Short of Breath Respiratory Pattern Normal Blood Pressure 91/59 L Blood Pressure Mean 69 Pulse Ox 93 Pulse Ox [AMBULATING on Room Air] Pulse Ox [AMBULATING with Oxygen #1] Pulse Ox [AMBULATING with Oxygen #2] Pulse Ox [At REST on Room Air] Oxygen Delivery Method Room Air Room Air Oxygen Flow Rate (L/min) [AMBULATING with Oxygen #1] Oxygen Flow Rate (L/min) [AMBULATING with Oxygen #2] 11/11/23 11:59 11/11/23 13:00 11/11/23 14:00 Temperature 97.8 F 97.2 F L 98.4 F Temperature Source Oral Oral Oral Pulse Rate 79 78 85 Respiratory Rate 25 H 25 H 19 H Respiratory Effort Respiratory Pattern Blood Pressure 87/59 L 93/50 L 90/45 L Blood Pressure Mean 68 64 60 Pulse Ox 91 93 94 Pulse Ox [AMBULATING on Room Air] Pulse Ox [AMBULATING with Oxygen #1] Pulse Ox [AMBULATING with Oxygen #2] Pulse Ox [At REST on Room Air] Oxygen Delivery Method Room Air Room Air Room Air Oxygen Flow Rate (L/min) [AMBULATING with Oxygen #1] Oxygen Flow Rate (L/min) [AMBULATING with Oxygen #2] 11/11/23 15:17 Temperature Temperature Source Pulse Rate Respiratory Rate Respiratory Effort Respiratory Pattern Blood Pressure Blood Pressure Mean Pulse Ox Pulse Ox [AMBULATING on Room Air] 85 Pulse Ox [AMBULATING with Oxygen #1] 89 Pulse Ox [AMBULATING with Oxygen #2] 92 Pulse Ox [At REST on Room Air] 91 Oxygen Delivery Method Oxygen Flow Rate (L/min) [AMBULATING with Oxygen #1] 2 Oxygen Flow Rate (L/min) [AMBULATING with Oxygen #2] 3 Positive well nourished and well developed General Appearance ED: well developed HEENT Reports normocephalic, head/scalp atraumatic and moist mucous membranes Eyes PERRL and EOMs intact bilaterally Neck no lymphadenopathy, supple and no JVD Resp normal respiratory effort Auscultation: wheezes expiratory wheezes Cardio regular rate, regular rhythm and no murmurs GI normal to inspection, nondistended, normoactive bowel sounds and non-tender Palpation: soft Back/Spine no CVA tenderness and normal ROM Extremity normal to inspection General Extremety ED: Negative for edema General Extremity: Negative for edema Neuro oriented x3 and CN's II-XII intact bilaterally Sensorium / Orientation: alert Motor Exam: strength 5/5 throughout Psych mental status grossly normal Mood & Affect: Negative for depressed or tearful Skin no rashes or lesions noted and no wounds MDM MDM MDM Narrative Medical decision making narrative: Differential diagnosis includes but not limited to COPD exacerbation pneumonia pneumonia signs pleural effusion heart failure sepsis White count 8.2 hemoglobin 12.0 platelet count is 276. INR is 1.4. Lactic acid is 1.4. Troponin is 5. Lipase 22 normal LFTs. Patient CRP and sed rate were obtained at the request of family. ESR today is 49 and CRP is 54. My independent interpretation of the chest x-ray is abscess of the left upper lung. With his recent hospitalization reported hypoxemia CTA of the chest was ordered which demonstrates no obvious pulmonary embolism. Please see radiologist details for discussion of the lung abscess but apparent decrease in the overall size. While at rest the patient has not required supplemental oxygen. However when we ambulate him his pulse ox and what would be a reasonable distance to get from his couch to the bathroom he decreases to 85% on room air. He states stable while on 3 L. I have reviewed the oxygen testing, and this patient qualifies for the home equipment and portability. The patient is mobile in the home and the community. Plan is to discharge the patient home. I believe the chest pain could very well be reflux related. He had another episode here in the department his EKG was unchanged. He received a GI cocktail. Diagnosis: 1. Chronic obstructive liver disease 2. Left upper lobe lung abscess History & Record Review Discussion w/independent historian: Patient and Family Lab Data Attestation: I reviewed the patient's lab results. Labs: Laboratory Results - last 24 hr 11/11/23 11/11/23 11:21 11:35 WBC 8.2 RBC 3.93 L Hgb 12.0 L Hct 37.5 L MCV 95.4 H MCH 30.5 MCHC 32.0 RDW Std Deviation 49.4 H RDW Coeff of David 14.0 Plt Count 276 MPV 9.2 Immature Gran % (Auto) 1.300 H Neut % (Auto) 72.2 H Lymph % (Auto) 8.6 L [place] % (Auto) 12.9 H Eos % (Auto) 4.0 Baso % (Auto) 1.0 Absolute Neuts (auto) 5.9 Absolute Lymphs (auto) 0.71 L Nucleated RBC % 0 ESR 49 H PT 17.3 H INR 1.4 APTT 41.1 H Sodium 135 L Potassium 3.8 Chloride 101 Carbon Dioxide 28.0 Anion Gap 6 BUN 13 Creatinine 1.02 Est GFR (MDRD) Af Amer 89 Est GFR (MDRD) Non-Af 74 BUN/Creatinine Ratio 12.7 Glucose 126 H Lactic Acid 1.4 Calcium 8.7 Total Bilirubin 0.70 Direct Bilirubin 0.24 AST 7 L ALT 10 L Alkaline Phosphatase 90 Troponin I High Sens 5 C-React Prot Ext Range 54.30 H Total Protein 6.5 Albumin 2.6 L Globulin 3.9 Lipase 22 Radiography Diagnostic Testing: Clinical Impression(s) from Imaging Studies Chest X-Ray 11/11/23 11:54 IMPRESSION: Persistent 3.2 cm x 4.2 cm rounded soft tissue density in the lateral aspect of the left upper lobe. Patient is known to have an abscess. Stable bibasilar scarring. Electronically Signed: Chris Ventura MD at 12:16 EDT , Chest CTA 11/11/23 12:21 IMPRESSION: 1. No evidence of acute pulmonary embolism. 2. Decreasing size of the infected left pulmonary cavity/cyst. 3. Improving left lower lobe infiltrate. 4. Residual bilateral lower lobe peribronchial thickening which may represent acute or chronic inflammatory change. Electronically Signed: Valente Lara MD at 13:12 EDT , EKG Initial EKG: Attestation: I personally reviewed and interpreted this EKG as follows: Comments: Sinus rhythm with a ventricular rate of 80 bpm Follow-up EKG: Attestation: I personally reviewed and interpreted this EKG as follows: Comments: Normal sinus rhythm ventricular rate of 74 bpm. Discharge Plan Triage Chief Complaint: Shortness of Breath ED Provider: Yunior Rico Dx/Rx/DC Orders Clinical Impression: COPD (chronic obstructive pulmonary disease), Abscess of lung, Hypoxemia Prescriptions: No Action rosuvastatin [Crestor] 5 mg tablet 5 mg PO QDAY metoprolol succinate 25 mg tablet extended release 24 hr 25 mg PO DAILY nitroglycerin 0.4 mg tablet, sublingual 0.4 mg sublingual Q5M PRN (Reason: CP) Rx Instructions: do not exceed 3 doses per episode dofetilide 250 mcg capsule 250 mcg PO Q12H Patient Comments: TAKE 1 CAPSULE BY MOUTH EVERY 12 HOURS midodrine 5 mg tablet 5 mg PO TID Patient Comments: Takes in the morning and evening and the afternoon dose is PRN if he needs it. finasteride 5 mg tablet 5 mg PO DAILY Patient Comments: take 1 tablet by mouth once daily duloxetine 60 mg capsule,delayed release(DR/EC) See Rx Instructions PO DAILY Rx Instructions: 60 mg (2 caps) orally daily; Jardiance 25 mg tablet 12.5 mg PO DAILY levalbuterol HCl 0.63 mg/3 mL solution for nebulization 0.63 mg INHALATION TID Patient Comments: USE 1 VIAL 3 TIMES A DAY ICaps AREDS2 250 mg-200 unit -12.5 mg-1 mg capsule 1 cap PO DAILY cyanocobalamin (vitamin B-12) 1,000 mcg/mL kit 100 mcg IM QMONTH lorazepam 0.5 mg Tablet 0.5 mg PO QHS Qty: 5 0RF budesonide 0.5 mg/2 mL Suspension For Nebulization 0.5 mg inhalation BID.RT Qty: 0 0RF acetaminophen 500 mg Tablet 1,000 mg PO Q6H PRN PRN (Reason: Pain Score 1-3) Qty: 0 0RF Eliquis 5 mg Tablet 5 mg PO BID Qty: 0 0RF bumetanide 0.5 mg Tablet 1 mg PO MOWEFR Qty: 0 0RF methocarbamol 750 mg tablet 750 mg PO TID 30 Days Qty: 90 0RF Rx Instructions: for neck pain tamsulosin 0.4 mg Capsule 0.8 mg PO QHS 30 Days Qty: 60 0RF acetaminophen-codeine 300-30 mg tablet 1 tab PO DAILY pantoprazole 40 mg tablet,delayed release (DR/EC) 40 mg PO DAILY Patient Comments: take 1 tablet by mouth twice a day take before meals Rx Instructions: Before meals ezetimibe 10 mg tablet 10 mg PO QHS benzonatate 100 mg capsule 100 mg PO BID PRN (Reason: cough) guaifenesin [Mucinex] 1,200 mg tablet extended release 12hr 1,200 mg PO BID Stiolto Respimat 2.5-2.5 mcg/actuation mist 2 inh inhalation DAILY cholecalciferol (vitamin D3) 25 mcg (1,000 unit) tablet 25 mcg PO DAILY Primary Care Provider: Arnulfo Rascon Referrals: Sylvester Donald MD [Med Staff - Active Staff] - As soon as possible Arnulfo Rascon MD [Primary Care Provider] - Print Language: Lebanese Disposition Disposition: Home, Self Care
[2023-11-11] MEDS: Ipratropium/Albuterol Sulfate 3 ML AMPUL.NEB INHALATION (11:38)
[2023-11-11 11:45] LABS: Absolute Lymphocyte Count 0.71 X10^3/uL (0.83-4.51); Absolute Neutrophil Count 5.9 X10^3/uL (2.0-7.7); Basophil# 0.08 X10^3/uL; Eosinophil# 0.33 X10^3/uL; Hematocrit 37.5 % (40-54); Lymphocyte # 0.71 X10^3/ul (0.83-4.51); Lymphocyte % 8.6 % (19-41); Mean Corpuscular Hgb 30.5 pg (27.0-32.0); Mean Corpuscular Volume 95.4 fL (80-94); Mean Platelet Vol. 9.2 fl (6.2-12.0); Monocyte# 1.06 X10^3/uL; Monocyte% 12.9 % (0-10); NRBC Flagged by Analyzer 0 % (0-5); Neutrophil # 5.94 X10^3/uL (2.7-7.7); Neutrophil % 72.2 % (47-70); Platelet Count 276 K/mm3 (150-450); RBC Distribution Width SD 49.4 fl (35.1-43.9); Red Blood Count 3.93 M/mm3 (4.6-6.2); White Blood Count 8.2 K/mm3 (4.4-11.0)
[2023-11-11 11:51] LABS: Erythrocyte Sedimentation Rate 49 mm/hr (0-20)
[2023-11-11] MEDS: 0.9% Normal Saline (1000mL) 1,000 ML 1000 ML IV (11:53)
[2023-11-11 11:54] LABS: International Normalized Ratio 1.4; Partial Thromboplast Time 41.1 Seconds (24.1-36.2); Prothrombin Time (Protime)PT. 17.3 SECONDS (11.7-14.9)
--- NOTE | 2023-11-11 11:54 | RAD_ITS ---
STUDY: X-RAY CHEST REASON FOR EXAM: Male, 83 years old. Lung abscess TECHNIQUE: Single AP portable view of the chest. COMPARISON: Comparison is made with prior study dated November 03, 2023. FINDINGS: EKG electrodes are seen. Persistent 3.2 cm x 4.2 cm rounded soft tissue density in the lateral aspect of the left upper lobe. Patient was known to have an abscess at that site. Stable scarring at the lung bases. There is no demonstrated pleural abnormality. Normal size heart. Normal mediastinum and gregorio. Normal visualized pulmonary arteries. There is atherosclerotic calcification of the aortic arch with tortuosity. There are diffuse degenerative changes of the visualized thoracic spine. Normal visualized ribs, clavicles, and shoulders. There is no demonstrated abnormality of the visualized soft tissue structures of the upper abdomen. RAD/Chest 1 View (Portable) IMPRESSION: Persistent 3.2 cm x 4.2 cm rounded soft tissue density in the lateral aspect of the left upper lobe. Patient is known to have an abscess. Stable bibasilar scarring. Electronically Signed: Chris Ventura MD at 12:16 EDT ,
[2023-11-11 12:14] LABS: AST(SGOT) 7 U/L (15-37); Alanine Aminotransfer ALT/SGPT 10 U/L (16-61); Albumin, Serum 2.6 g/dL (3.2-5.0); Alkaline Phosphatase 90 U/L (45-117); Anion Gap 6 (5-15); BUN 13 mg/dL (7-18); BUN/Creat Ratio 12.7 RATIO (10-20); Bilirubin, Direct 0.24 mg/dL (0.00-0.30); Calcium,Total 8.7 mg/dL (8.5-10.1); Chloride 101 mmol/L (98-107); Creatinine, Serum 1.02 mg/dL (0.70-1.30); EST Glomerular Filtration Rate 74 mL/min (>60); Est Glom Filt Rate - Afr Amer 89 mL/min (>60); Globulin 3.9 g/dL (2.2-4.2); Glucose 126 mg/dL (74-106); Lipase 22 U/L (13-75); Potassium 3.8 mmol/L (3.5-5.1); Protein, Total 6.5 g/dL (6.4-8.2); Sodium Level 135 mmol/L (136-145); Troponin-I HS 5 pg/mL (3.0-78.0)
--- NOTE | 2023-11-11 12:21 | CT_ITS ---
EXAM: CT ANGIOGRAPHY CHEST WITHOUT AND WITH INTRAVENOUS CONTRAST CLINICAL INDICATION: pulmonary embolism TECHNIQUE: Helically acquired angiography images were obtained of the chest without and with intravenous contrast. This CT exam was performed using one or more of the following dose reduction techniques: automated exposure control, adjustment of the mA and/or kV according to patient size, and/or use of iterative reconstruction technique. MIP reconstructed images were created and reviewed. CONTRAST: IV 70mL [id number] COMPARISON: CTA Chest dated 10/25/2023 FINDINGS: PULMONARY ARTERIES: Normal. Normal in caliber. No evidence of pulmonary embolism. AORTA: Normal. Normal in caliber. No evidence of dissection. GREAT VESSELS OF AORTIC ARCH: Normal. Normal in caliber. No evidence of dissection. LUNGS AND PLEURAL SPACES: Decreasing size of the pulmonary cavity involving the superior segment of the left lower lobe. Lesion measuring 4.6 cm in lateral dimension from prior measurement of 5.6 cm. Solid and cystic components remain within the otherwise thin wall cavity. Improving airspace opacification of the left lower lobe. Residual peribronchial thickening of both lower lobes. Small focus of groundglass density within the posterior segment of the right upper lobe. No pleural effusion or thickening. HEART: Normal. No pericardial effusion. Normal heart size. Moderate coronary artery calcification. MEDIASTINUM: Normal. No mediastinal or hilar adenopathy. Esophagus is unremarkable. No hiatal hernia. BONES/JOINTS: Normal. No suspicious lytic or blastic abnormality. CT/CTA Chest W/WO Contrast IMPRESSION: 1. No evidence of acute pulmonary embolism. 2. Decreasing size of the infected left pulmonary cavity/cyst. 3. Improving left lower lobe infiltrate. 4. Residual bilateral lower lobe peribronchial thickening which may represent acute or chronic inflammatory change. Electronically Signed: Valente Lara MD at 13:12 EDT ,
[2023-11-11 12:27] LABS: Lactic Acid 1.4 mmol/L (0.4-1.9)
--- NOTE | 2023-11-11 14:02 | EKG12_ITS ---
Test Reason : CP Blood Pressure : / mmHG Vent. Rate : 074 BPM Atrial Rate : 074 BPM P-R Int : 208 ms QRS Dur : 088 ms QT Int : 384 ms P-R-T Axes : 078 -52 047 degrees QTc Int : 426 ms Normal sinus rhythm Left axis deviation Abnormal ECG Confirmed by Brooks Avery ([id number]), associate editor CAREN ROCHA ([id number]) on 11/12/2023 2:05:02 PM Referred By: Confirmed By:Brooks Avery
[2023-11-11] MEDS: Mag /Aluminum/Simeth WCH UDC 30 ML ORAL.SUSP PO (14:43)
[2023-11-11] MEDS: Lidocaine 2% Viscous15 ML UDC 15 ML PO (14:43)
== END 2023-11-11 16:59 | disposition home or self-care (01) ==
PROVIDERS: Emergency Provider Emergency Medicine; PCP Family Medicine; Visit Provider Emergency Medicine
DX: J44.9 Chronic obstructive pulmonary disease, unspecified (principal); I50.22 Chronic systolic (congestive) heart failure; I48.0 Paroxysmal atrial fibrillation; J85.2 Abscess of lung without pneumonia; I25.10 Atherosclerotic heart disease of native coronary artery without angina pectoris; R09.02 Hypoxemia; E78.5 Hyperlipidemia, unspecified; Z79.01 Long term (current) use of anticoagulants; Z79.51 Long term (current) use of inhaled steroids; Z79.899 Other long term (current) drug therapy; Z86.16 Personal history of COVID-19; Z87.891 Personal history of nicotine dependence
CPT/HCPCS: 71045; 71275; 80048; 80076; 83605; 83690; 84484; 85025; 85610; 85652; 85730; 86140; 93005; 94640; 96360; 96361; 99285; J7030; Q9967; A4216

== ENCOUNTER → 2023-11-17 | Outpatient (CLI) | payer MEDICARE, SELFPAY | END | disposition home or self-care (01) | LOC: LABSPEC 17:07 | PROVIDERS: PCP Family Medicine; Referring Provider Internal Medicine Pulmonary Disease; Visit Provider Internal Medicine Pulmonary Disease | DX: R06.02 Shortness of breath (principal); J44.9 Chronic obstructive pulmonary disease, unspecified; R05.9 Cough, unspecified | CPT/HCPCS: 87070; 87077; 87186; 87205 ==

== ENCOUNTER → 2023-11-19 | Outpatient (CLI) | payer MEDICARE, SELFPAY ==
[2023-11-19 14:06] LABS: Erythrocyte Sedimentation Rate 14 mm/hr (0-20)
--- NOTE | 2023-11-19 14:14 | RAD_ITS ---
STUDY: X-RAY CHEST REASON FOR EXAM: Male, 83 years old. SOB TECHNIQUE: PA and lateral views of the chest. COMPARISON: 11/11/2023 FINDINGS: There is hyperinflation of the lungs consistent with chronic obstructive lung disease (COPD). Interval development of an air-fluid level within the nodular opacity in the upper left lung worrisome for necrotic tumor or pulmonic abscess. The patient has had recent CT. There is no demonstrated pleural abnormality. Normal size heart. Normal mediastinum and gregorio. Normal visualized pulmonary arteries. Normal visualized aortic arch and descending thoracic aorta. Normal visualized thoracic spine. Normal visualized ribs, clavicles, and shoulders. There is no demonstrated abnormality of the visualized soft tissue structures of the upper abdomen. RAD/Chest PA and Lateral IMPRESSION: Interval development of air-fluid level within necrotic tumor or pulmonic abscess in the left upper lobe. Electronically Signed: Joe Bajwa MD at 11:36 EDT ,
[2023-11-19 14:24] LABS: CRP < 2.90 mg/L (0.0-3.0)
== END | disposition home or self-care (01) ==
LOC: LAB 13:21
PROVIDERS: PCP Family Medicine; Referring Provider Internal Medicine Pulmonary Disease; Visit Provider Internal Medicine Pulmonary Disease
DX: R06.02 Shortness of breath (principal); J44.9 Chronic obstructive pulmonary disease, unspecified; R05.9 Cough, unspecified
CPT/HCPCS: 36415; 71046; 85652; 86140; 87086; 87088

== ENCOUNTER 2023-11-20 15:51 | Emergency (ER) | payer MEDICARE, SELFPAY ==
[2023-11-20] VITALS (7 sets, daily range): BP systolic 96–109; BP diastolic 59–71; PULSE 62–86; RESP 18–25; TEMP 35.5–36.9; O2SAT 76–99; BMI 25.8
--- NOTE | 2023-11-20 17:29 | EDS_ITS ---
HPI History of Present Illness Chief Complaint: General Illness Narrative Narrative: 83-year-old male past medical history of left upper lobe lung abscess presents for admission to get continued IV the antibiotics in the transitional care unit. His daughter relates history that he was seen previously and diagnosed with COVID and pneumonia, and he was found to have a left upper lobe lung abscess. He had been transferred to [facility] And they decided that the best treatment would not be drainage but rather IV Zosyn. He was on that for approximately 1 week then discharged on Augmentin. He followed up with his personal shopper, Dr. Gray, who ended up changing him to clindamycin for better coverage. This was in case it was MRSA. Daughter states that they performed sputum cultures, and he is supposed to finish his clindamycin on Thursday, 3 days from now, but the cultures came back for something that began with a K which was not covered by the clindamycin. His personal shopper has called in stating that he needs to be admitted to the hospital before acceptance into the TCU for IV Zosyn. Daughter relates history that they were seen previously in the ED where they repeated a CT of the chest, and the abscess had improved but was not completely gone. This was before he was changed to clindamycin. Daughter relates history that the patient sometimes becomes hypoxic on his oxygen when up and moving around, and has had generalized weakness and increased ability. He lives at home with his . [facility] Medical History Pulmonary fibrosis Sinus node dysfunction HFrEF (heart failure with reduced ejection fraction) Chronic diarrhea Retroperitoneal hematoma Atherosclerotic heart disease of [place] coronary artery without angina pectoris Obstructive sleep apnea Hyperlipidemia SVT (supraventricular tachycardia) GERD (gastroesophageal reflux disease) COPD (chronic obstructive pulmonary disease) BPH (benign prostatic hyperplasia) Paroxysmal atrial fibrillation Home Medications ?Medication ?Instructions ?Recorded ?Last Taken ?Type rosuvastatin 5 mg tablet (Crestor) 5 mg PO QDAY cholesterol 07/04/17 10/24/23 History cholecalciferol (vitamin D3) 25 25 mcg PO DAILY supplement 05/22/21 10/24/23 History mcg (1,000 unit) tablet metoprolol succinate 25 mg 25 mg PO DAILY AFIB 06/27/21 10/24/23 History tablet,extended release 24 hr nitroglycerin 0.4 mg sublingual 0.4 mg sublingual Q5M PRN CP 06/27/21 Unknown History tablet cyanocobalamin (vitamin B-12) 100 mcg IM QMONTH supplement 03/29/23 10/17/23 History 1,000 mcg/mL injection kit dofetilide 250 mcg capsule 250 mcg PO Q12H afib 03/29/23 10/24/23 History duloxetine 60 mg capsule,delayed See Rx Instructions PO DAILY mood 03/29/23 10/24/23 History release empagliflozin 25 mg tablet 12.5 mg PO DAILY heart 03/29/23 10/24/23 History (Jardiance) finasteride 5 mg tablet 5 mg PO DAILY bph 03/29/23 10/24/23 History levalbuterol HCl 0.63 mg/3 mL 0.63 mg inhalation TID copd 03/29/23 10/24/23 History solution for nebulization midodrine 5 mg tablet 5 mg PO TID PRN blood pressure 03/29/23 10/24/23 History vit C 250 mg-vit E 200 unit-zinc 1 cap PO DAILY supplement 03/29/23 10/24/23 History ox 12.5 jr-yoijss-[id number]-zeax capsule (ICaps AREDS2) budesonide 0.5 mg/2 mL suspension 0.5 mg (2 mL) inhalation BID.RT 04/01/23 10/24/23 Rx for nebulization Asthma #0 mL lorazepam 0.5 mg tablet 0.5 mg PO QHS Anxiety #5 tabs 04/01/23 10/23/23 Rx acetaminophen 500 mg tablet 1,000 mg (2 x 500 mg) PO Q6H PRN 04/10/23 10/23/23 Rx PRN Pain Score 1-3 #0 tabs apixaban 5 mg tablet (Eliquis) 5 mg PO BID #0 tabs 04/10/23 10/11/23 Rx bumetanide 0.5 mg tablet 1 mg (2 x 0.5 mg) PO MOWEFR #0 tabs 04/10/23 11/18/23 Rx tamsulosin 0.4 mg capsule 0.8 mg (2 x 0.4 mg) PO QHS 30 days 04/10/23 10/23/23 Rx #60 caps ezetimibe 10 mg tablet 10 mg PO QHS 10/24/23 Unknown History guaifenesin 1,200 mg tablet, 1,200 mg PO BID 10/24/23 Unknown History extended release 12 hr (Mucinex) pantoprazole 40 mg tablet,delayed 40 mg PO DAILY GERD 10/24/23 Unknown History release tiotropium 2.5 mcg-olodaterol 2.5 2 inh inhalation DAILY 10/24/23 Unknown History mcg/actuation mist for inhalation (Stiolto Respimat) methocarbamol 750 mg tablet 750 mg PO TID PRN Muscle Relaxer 11/20/23 Unknown History sucralfate 100 mg/mL oral 1 g PO BID 11/20/23 Unknown History suspension (Carafate) Allergy/AdvReac Type Severity Reaction Status Date / Time tramadol Allergy Unknown PT UNSURE Verified 11/20/23 15:52 OF REACTION Family History Mother , Age 64 from Emphysema COPD (chronic obstructive pulmonary disease) Blood disorder Father No problems noted. Surgical History S/P ablation of atrial fibrillation History of left heart catheterization (05/27/21) History of tonsillectomy History of ankle surgery History of back surgery History of appendectomy History of inguinal hernia repair History of umbilical hernia repair Social History household members: spouse housing: house Smoking Status: Former smoker how long ago did patient quit smokin years ago alcohol intake: current alcohol intake frequency: holidays/special occasions only substance use type: does not use caffeine: Yes Type: coffee Number of servings: 2 ROS ROS ED ROS Narrative Constitutional: No fever, no chills. Generalized weakness. HEENT: No sore throat. No neck pain. No loss of vision. No rhinorrhea. Cardiovascular: No chest pain. No palpitations. No pedal edema. Respiratory: Occasional cough, positive hypoxia and increasing shortness of breath. Abdominal: No abdominal pain. No nausea. No vomiting. Genitourinary: No dysuria. No hematuria. Musculoskeletal: No myalgias. No arthralgias. Neurologic: No headaches. No dizziness. No lightheadedness. Skin: Positive rash on back. No change in color. Psychiatric: No depression. No anxiety. EXAM Physical Exam Narrative Exam Narrative: Afebrile. Vital signs noted. Nontoxic-appearing. HEENT: Normocephalic. Atraumatic. PERRL, EOMI. Neck soft and supple. No point tenderness or step off. Cardiovascular: Regular rate and rhythm. No murmurs, rubs, or gallops appreciated. Respiratory: No tachypnea. Lungs clear to auscultation bilaterally. Decreased breath sounds bilateral bases. Gastrointestinal: Abdomen soft, nontender, with normoactive bowel sounds. No rebound or guarding. Neurological: Awake. Alert. Nonfocal, nonlateralizing. Skin: Positive maculopapular rash on back. Normal color. No pallor. Musculoskeletal: No pedal edema. Full range of motion extremities. Const Vital Signs: 11/20/23 15:52 11/20/23 17:11 11/20/23 17:14 Temperature 96 F L 97.7 F L Temperature Source Temporal Oral Pulse Rate 65 62 Respiratory Rate 18 22 H Respiratory Effort Normal Non-Labored Respiratory Pattern Normal Blood Pressure 96/71 109/59 L Blood Pressure Mean 79 75 Pulse Ox 99 98 Oxygen Delivery Method Nasal Cannula Nasal Cannula Oxygen Flow Rate (L/min) 3 2 11/20/23 17:59 11/20/23 18:00 11/20/23 19:00 Temperature 97.7 F L 97.8 F 98.0 F Temperature Source Oral Temporal Pulse Rate 64 65 75 Respiratory Rate 21 H 25 H 20 H Respiratory Effort Respiratory Pattern Blood Pressure 107/67 99/59 L 103/62 Blood Pressure Mean 80 72 75 Pulse Ox 97 98 99 Oxygen Delivery Method Nasal Cannula Nasal Cannula Oxygen Flow Rate (L/min) 2 2 MDM MDM MDM Narrative Medical decision making narrative: Differential diagnosis does include worsening lung abscess versus dehydration. I have low suspicion for sepsis currently. Initially, it was reported that it was for insurance reasons that he needed to be admitted to the hospital, then eventually transferred to the TCU. However, I was informed by the RN, and by the patient's daughter who knows people of the TCU that he has been accepted and they are awaiting a bed. In the meantime, he will be given first dose of Zosyn as he is not taking clindamycin since this morning, and he was given Benadryl for the itchy rash on his back. Disposition is transferred to the TCU. Patient is in stable condition. History & Record Review Discussion w/independent historian: Patient and Family (Daughter) Discharge Plan Triage Chief Complaint: General Illness ED Provider: Navarro Fu Dx/Rx/DC Orders Clinical Impression: Debility, Abscess of lung, Generalized weakness Instructions: ED Abscess Antibiotic Treatment Only, ED Weakness (Uncertain Cause) Prescriptions: No Action rosuvastatin [Crestor] 5 mg tablet 5 mg PO QDAY metoprolol succinate 25 mg tablet extended release 24 hr 25 mg PO DAILY nitroglycerin 0.4 mg tablet, sublingual 0.4 mg sublingual Q5M PRN (Reason: CP) Rx Instructions: do not exceed 3 doses per episode dofetilide 250 mcg capsule 250 mcg PO Q12H Patient Comments: TAKE 1 CAPSULE BY MOUTH EVERY 12 HOURS midodrine 5 mg tablet 5 mg PO TID PRN (Reason: blood pressure) Patient Comments: Takes in the morning and evening and the afternoon dose is PRN if he needs it. finasteride 5 mg tablet 5 mg PO DAILY Patient Comments: take 1 tablet by mouth once daily duloxetine 60 mg capsule,delayed release(DR/EC) See Rx Instructions PO DAILY Rx Instructions: 60 mg (2 caps) orally daily; Jardiance 25 mg tablet 12.5 mg PO DAILY levalbuterol HCl 0.63 mg/3 mL solution for nebulization 0.63 mg INHALATION TID Patient Comments: USE 1 VIAL 3 TIMES A DAY ICaps AREDS2 250 mg-200 unit -12.5 mg-1 mg capsule 1 cap PO DAILY cyanocobalamin (vitamin B-12) 1,000 mcg/mL kit 100 mcg IM QMONTH lorazepam 0.5 mg Tablet 0.5 mg PO QHS Qty: 5 0RF budesonide 0.5 mg/2 mL Suspension For Nebulization 0.5 mg inhalation BID.RT Qty: 0 0RF acetaminophen 500 mg Tablet 1,000 mg PO Q6H PRN PRN (Reason: Pain Score 1-3) Qty: 0 0RF Eliquis 5 mg Tablet 5 mg PO BID Qty: 0 0RF bumetanide 0.5 mg Tablet 1 mg PO MOWEFR Qty: 0 0RF tamsulosin 0.4 mg Capsule 0.8 mg PO QHS 30 Days Qty: 60 0RF pantoprazole 40 mg tablet,delayed release (DR/EC) 40 mg PO DAILY Patient Comments: take 1 tablet by mouth twice a day take before meals Rx Instructions: Before meals ezetimibe 10 mg tablet 10 mg PO QHS guaifenesin [Mucinex] 1,200 mg tablet extended release 12hr 1,200 mg PO BID Stiolto Respimat 2.5-2.5 mcg/actuation mist 2 inh inhalation DAILY methocarbamol 750 mg tablet 750 mg PO TID PRN (Reason: Muscle Relaxer) Rx Instructions: for neck pain sucralfate [Carafate] 100 mg/mL suspension 1 g PO BID cholecalciferol (vitamin D3) 25 mcg (1,000 unit) tablet 25 mcg PO DAILY Primary Care Provider: Arnulfo Rascon Referrals: Arnulfo Rascon MD [Primary Care Provider] - Print Language: Georgian Disposition Disposition: Inpatient Rehab Unit/Facility Discharge Location: [facility] Transitional Care Unit
[2023-11-20] MEDS: DiphenhydrAMINE 50 MG/ML Syringe 25 MG IV (17:40)
[2023-11-20] MEDS: Piperacil/Tazobactam 3.375 GM in 0.9% Normal Saline (50mL MB+) 50 ML IV (17:51)
== END 2023-11-20 21:37 ==
PROVIDERS: Emergency Provider Emergency Medicine; PCP Family Medicine; Visit Provider Emergency Medicine
DX: J85.2 Abscess of lung without pneumonia (principal); I50.22 Chronic systolic (congestive) heart failure; J44.9 Chronic obstructive pulmonary disease, unspecified; I48.0 Paroxysmal atrial fibrillation; R53.1 Weakness; R53.81 Other malaise; E78.5 Hyperlipidemia, unspecified; I25.10 Atherosclerotic heart disease of native coronary artery without angina pectoris; Z79.01 Long term (current) use of anticoagulants; Z79.2 Long term (current) use of antibiotics; Z79.899 Other long term (current) drug therapy; Z86.16 Personal history of COVID-19; Z87.891 Personal history of nicotine dependence
CPT/HCPCS: 96365; 96375; 99283; J7050; A4216

== ENCOUNTER 2023-11-20 21:47 | Inpatient (IN) | payer MEDICARE, SELFPAY ==
[2023-11-20 22:15] VITALS: BP 108/61; PULSE 73; RESP 17; TEMP 36.9; O2SAT 97
[2023-11-20 22:18] VITALS: PULSE 70; RESP 18; O2SAT 96; BMI 24.6
--- NOTE | 2023-11-20 23:07 | NURSING ---
Ankush Askew spoke with this nurse by phone regarding last reported time of Zosyn administration at 6:30pm in ED per SERVICE CONSULTANT Marty report. Ankush Askew states next administration time to be ordered to start at 0600 per policy not 0230. Time adjusted per pharmacist request.
--- NOTE | 2023-11-20 23:13 | NURSING ---
Dr. Shah contacted via telephone, regarding no stop date provided on ER discharge med list for Zosyn and itch/rash to abdomen/back. states he will address stop date to Zosyn at a later time. New order received for Vistaril 25mg Q6H PRN itch, Hydrocortisone 2.5% TID PRN rash to admomen/back. Orders repeated back to Dr. Shah
[2023-11-21] VITALS (11 sets, daily range): BP systolic 84–109; BP diastolic 54–67; PULSE 62–77; RESP 16–20; TEMP 36.2; O2SAT 94–98; BMI 24.6
[2023-11-21] MEDS: LORazepam 0.5 MG Tablet PO ×2 (00:07→22:24)
[2023-11-21] MEDS: Tamsulosin HCl 0.4 MG Capsule 0.8 MG PO ×2 (00:12→22:26)
[2023-11-21] MEDS: Ezetimibe 10 MG Tablet PO ×2 (00:13→22:29)
[2023-11-21] MEDS: APIXABAN 5 MG TABLET PO ×3 (00:18→22:30)
--- NOTE | 2023-11-21 00:25 | NURSING ---
Patient arrived to floor via ER bed at 2146 with daughter present, transfered to TCU bed with assist.
[2023-11-21] MEDS: Albuterol 2.5 MG/3 ML VIAL.NEB. INHALATION ×4 (00:52→20:04)
[2023-11-21 06:28] LABS: Bedside Glucose 110 mg/dL (74-106)
[2023-11-21] MEDS: 0.9% Saline Lock 10 ML Syringe IV ×3 (06:42→22:36)
[2023-11-21] MEDS: 0.9% Normal Saline (250mL Bag) 250 ML 15 ML IV (06:42)
[2023-11-21] MEDS: NORMAL SALINE 0.9% IV (06:45)
[2023-11-21] MEDS: PIPERACIL IV (06:45)
[2023-11-21] MEDS: TAZOBACTAM IV (06:45)
[2023-11-21] MEDS: Pantoprazole Sodium 40 MG Tablet PO (06:46)
[2023-11-21] MEDS: Sucralfate 1 GM Tablet PO ×2 (06:46→17:04)
[2023-11-21 07:07] LABS: Absolute Lymphocyte Count 1.24 X10^3/uL (0.83-4.51); Eosinophil# 0.69 X10^3/uL; Eosinophils% 6.6 % (0-5); Hematocrit 35.6 % (40-54); Hemoglobin 11.2 g/dL (13.0-16.5); Lymphocyte # 1.24 X10^3/ul (0.83-4.51); Lymphocyte % 11.9 % (19-41); Mean Corp Hgb Conc 31.5 g/dL (32-36); Mean Corpuscular Hgb 30.7 pg (27.0-32.0); Mean Corpuscular Volume 97.5 fL (80-94); Mean Platelet Vol. 9.1 fl (6.2-12.0); Monocyte# 0.98 X10^3/uL; Monocyte% 9.4 % (0-10); NRBC Flagged by Analyzer 0 % (0-5); Neutrophil % 67.4 % (47-70); Platelet Count 255 K/mm3 (150-450); RBC Distribution Width CV 14.5 % (11.6-14.6); RBC Distribution Width SD 51.8 fl (35.1-43.9); Red Blood Count 3.65 M/mm3 (4.6-6.2); White Blood Count 10.4 K/mm3 (4.4-11.0)
[2023-11-21 07:25] LABS: Anion Gap 2 (5-15); BUN 13 mg/dL (7-18); BUN/Creat Ratio 13.7 RATIO (10-20); Calcium,Total 8.9 mg/dL (8.5-10.1); Chloride 106 mmol/L (98-107); Creatinine, Serum 0.95 mg/dL (0.70-1.30); EST Glomerular Filtration Rate 80 mL/min (>60); Est Glom Filt Rate - Afr Amer 97 mL/min (>60); Glucose 115 mg/dL (74-106); Sodium Level 139 mmol/L (136-145)
--- NOTE | 2023-11-21 07:39 | HP.PCM_ITS ---
[facility] - General General Date of Admission: 11/21/23 Date of Service: 11/23/23 Chief Complaint: Here for rehabilitation, intravenous antibiotics. [facility] Narrative ELIO DORAN, is a 83 Male who presents with followin11/11/2023 Patient presented to [facility] ED with shortness of breath. Hypoxia, recent hospitalization for covid-19, lung abscess. Transferred to [facility], treated with Zosyn IV for 6 days, considered home IV antibiotics, then discharged on oral Augmentin. Patient saw Dr. 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 CTA chest negative pulmonary embolism, left upper lobe lung abscess smaller, but persists. . Discharge home from ED. 11/17/2023 Dr. Donald saw patient, productive cough of yellow sputum, hemoptysis resolved. Pulsox 99% on 3 liters oxygen per nasal cannula. Left upper lobe lung abscess treated with Zosyn IV for 6 days. Clindamycin intolerable 2/2 stomach upset. 11/20/2023 Despite oral/IV antibiotics, still growing Klebsiella in sputum, with worsening hypoxemia. Pulsox 72% at home. Patient has chronic emphysema, but was not oxygen dependent prior to lung abscess. Failed oral antibiotic for pneumonia/lung abscess. Patient has been falling at home, weak, would benefit from PT/OT. Although weak, patient not sick enough for hospitalization, but at risk of dying from lung abscess. Dr. Donald recommends Zosyn IV, PT/OT in SNF. 11/20/2023 Admit to TCU with debility, here for rehabilitation, strengthening, fpc intravenous antibiotics, prior to discharge home with . [facility] Medical History Pulmonary fibrosis Sinus node dysfunction HFrEF (heart failure with reduced ejection fraction) Chronic diarrhea Retroperitoneal hematoma Atherosclerotic heart disease of [place] coronary artery without angina pectoris Obstructive sleep apnea Hyperlipidemia SVT (supraventricular tachycardia) GERD (gastroesophageal reflux disease) COPD (chronic obstructive pulmonary disease) BPH (benign prostatic hyperplasia) Paroxysmal atrial fibrillation Home Medications ?Medication ?Instructions ?Recorded ?Last Taken ?Type rosuvastatin 5 mg tablet (Crestor) 5 mg PO QDAY cholesterol 07/04/17 10/24/23 History cholecalciferol (vitamin D3) 25 25 mcg PO DAILY supplement 05/22/21 10/24/23 History mcg (1,000 unit) tablet metoprolol succinate 25 mg 25 mg PO DAILY AFIB 06/27/21 10/24/23 History tablet,extended release 24 hr nitroglycerin 0.4 mg sublingual 0.4 mg sublingual Q5M PRN CP 06/27/21 Unknown History tablet cyanocobalamin (vitamin B-12) 100 mcg IM QMONTH supplement 03/29/23 10/17/23 History 1,000 mcg/mL injection kit dofetilide 250 mcg capsule 250 mcg PO Q12H afib 03/29/23 10/24/23 History duloxetine 60 mg capsule,delayed See Rx Instructions PO DAILY mood 03/29/23 10/24/23 History release empagliflozin 25 mg tablet 12.5 mg PO DAILY heart 03/29/23 10/24/23 History (Jardiance) finasteride 5 mg tablet 5 mg PO DAILY bph 03/29/23 10/24/23 History levalbuterol HCl 0.63 mg/3 mL 0.63 mg inhalation TID copd 03/29/23 10/24/23 History solution for nebulization midodrine 5 mg tablet 5 mg PO TID PRN blood pressure 03/29/23 10/24/23 History vit C 250 mg-vit E 200 unit-zinc 1 cap PO DAILY supplement 03/29/23 10/24/23 History ox 12.5 [id number]-[id number]-zeax capsule (ICaps AREDS2) budesonide 0.5 mg/2 mL suspension 0.5 mg (2 mL) inhalation BID.RT 04/01/23 10/24/23 Rx for nebulization Asthma #0 mL lorazepam 0.5 mg tablet 0.5 mg PO QHS Anxiety #5 tabs 04/01/23 10/23/23 Rx acetaminophen 500 mg tablet 1,000 mg (2 x 500 mg) PO Q6H PRN 04/10/23 10/23/23 Rx PRN Pain Score 1-3 #0 tabs apixaban 5 mg tablet (Eliquis) 5 mg PO BID BLOOD THINNER #0 tabs 04/10/23 10/11/23 Rx bumetanide 0.5 mg tablet 1 mg (2 x 0.5 mg) PO MOWEFR EDEMA 04/10/23 11/18/23 Rx #0 tabs tamsulosin 0.4 mg capsule 0.8 mg (2 x 0.4 mg) PO QHS bph 30 04/10/23 10/23/23 Rx days #60 caps ezetimibe 10 mg tablet 10 mg PO QHS cholesterol 10/24/23 Unknown History guaifenesin 1,200 mg tablet, 1,200 mg PO BID mucus relief 10/24/23 Unknown History extended release 12 hr (Mucinex) pantoprazole 40 mg tablet,delayed 40 mg PO DAILY GERD 10/24/23 Unknown History release tiotropium 2.5 mcg-olodaterol 2.5 2 inh inhalation DAILY COPD 10/24/23 Unknown History mcg/actuation mist for inhalation (Stiolto Respimat) methocarbamol 750 mg tablet 750 mg PO TID PRN Muscle Relaxer 11/20/23 Unknown History sucralfate 100 mg/mL oral 1 g PO BID antacid 11/20/23 Unknown History suspension (Carafate) Allergy/AdvReac Type Severity Reaction Status Date / Time tramadol Allergy Unknown PT UNSURE Verified 11/20/23 15:52 OF REACTION clindamycin AdvReac Intermediate Rash Verified 11/21/23 11:51 terbinafine AdvReac Intermediate Rash Verified 11/21/23 11:51 Family History Mother , Age 64 from Emphysema COPD (chronic obstructive pulmonary disease) Blood disorder Father No problems noted. Surgical History S/P ablation of atrial fibrillation History of left heart catheterization (05/27/21) History of tonsillectomy History of ankle surgery History of back surgery History of appendectomy History of inguinal hernia repair History of umbilical hernia repair Social History household members: spouse housing: house Smoking Status: Former smoker how long ago did patient quit smokin years ago alcohol intake: current alcohol intake frequency: holidays/special occasions only substance use type: does not use caffeine: Yes Type: coffee Number of servings: 2 ROS Constitutional Constitutional: Reports weakness; Denies chills, fever(s) or weight gain ENT HEENT: Denies headache(s), nasal congestion or nasal discharge Cardiovascular Cardiovascular: Denies chest pain or palpitations Respiratory/Chest Respiratory/Chest: Denies cough, excessive phlegm production or shortness of breath with exertion Gastrointestinal Gastrointestinal: Denies abdominal pain, nausea or vomiting Genitourinary Genitourinary: Denies dysuria Musculoskeletal Musculoskeletal: Denies joint pain or joint swelling Integumentary Integumentary: Denies rash or wounds Neurologic Neurologic: Denies focal weakness, numbness or tingling Psychiatric Psychiatric: Denies anxiety, auditory hallucinations, depression, homicidal ideation or suicidal ideation Vital Signs Vital Signs Vital Signs: 11/20/23 22:15 11/20/23 22:18 11/21/23 00:52 Temperature 98.5 F Temperature Source Oral Pulse Rate 73 70 66 Pulse Rhythm Regular Pulse Strength Normal (2+) Respiratory Rate 17 18 18 Respiratory Effort Normal Non-Labored Respiratory Depth Normal Respiratory Pattern Normal Normal Blood Pressure 108/61 Blood Pressure Mean 76 Blood Pressure Source Monitor Blood Pressure Position Sitting Blood Pressure Location Right Arm Pulse Ox 97 96 97 Oxygen Delivery Method Nasal Cannula Nasal Cannula Nasal Cannula Oxygen Flow Rate (L/min) 2 2 2 Weight Weight: 73.482 kg Body Mass Index (BMI) 24.6 Physical Exam Const alert General Appearance: cooperative HEENT normocephalic Eyes PERRL and EOMs intact bilaterally Neck supple, no JVD and no carotid bruits Resp normal respiratory effort, normal air movement and clear to auscultation bilaterally Cardio regular rate and regular rhythm GI normal to inspection, nondistended, normoactive bowel sounds, non-tender and non-distended Extremity normal capillary refill Extremity Narrative: Right upper extremity PICC line. General Extremity: Negative for edema Skin no rashes or lesions noted General Skin Exam: no breakdown Psych affect normal Appearance: appropriate Results Lab / Micro Data 11/21/23 06:35 11/21/23 06:35 Labs: Laboratory Results - last 24 hr 11/21/23 05:54: POC Glucose 110 H 11/21/23 06:35: WBC 10.4, RBC 3.65 L, Hgb 11.2 L, Hct 35.6 L, MCV 97.5 H, MCH 30.7, MCHC 31.5 L, RDW Std Deviation 51.8 H, RDW Coeff of David 14.5, Plt Count 255, MPV 9.1, Immature Gran % (Auto) 3.700 H, Neut % (Auto) 67.4, Lymph % (Auto) 11.9 L, [place] % (Auto) 9.4, Eos % (Auto) 6.6 H, Baso % (Auto) 1.0, Absolute Neuts (auto) 7.0, Absolute Lymphs (auto) 1.24, Nucleated RBC % 0, Sodium 139, Potassium 4.0, Chloride 106, Carbon Dioxide 31.0, Anion Gap 2 L, BUN 13, Creatinine 0.95, Estim Creat Clear Calc 55.00, Est GFR (MDRD) Af Amer 97, Est GFR (MDRD) Non-Af 80, BUN/Creatinine Ratio 13.7, Glucose 115 H, Calcium 8.9 Assessment & Plan Assessment/Plan (1) Debility: (2) Acute respiratory failure with hypoxia: (3) Abscess of upper lobe of left lung with pneumonia: (4) Bronchiectasis: (5) COPD (chronic obstructive pulmonary disease): (6) Atrial fibrillation: (7) Hyperlipidemia: (8) Depression: (9) Coronary artery disease: (10) BPH (benign prostatic hyperplasia): (11) Anxiety: (12) GERD (gastroesophageal reflux disease): (13) Orthostatic hypotension: (14) Macular degeneration: (15) Chronic heart failure with preserved ejection fraction (HFpEF): PLAN: Plan 83 year old male with below past medical history significant for acute respiratory failure with hypoxia, left upper lobe Klebsiella lung abscess, left lower lobe pneumonia, bronchiectasis, failed outpatient therapy, admitted to TCU with debility, here for rehabilitation, strengthening, intravenous antibiotics, prior to discharge home with . * Debility - PT/OT. * Pain - Tylenol 1000mg q6 prn pain (1-10). * Bowel - senna/colace 1 tablet bid, Magnesium citrate 300ml po daily prn. * Adult immunization - Administer pneumonia vaccine, covid vaccine, flu vaccine as appropriate. * DVT prophylaxis - on Eliquis. * Emphysema of lung - Budesonide 0.5mg neg bid, Albuterol 2.5mg neb q6wa, Incruse 1 puff daily. * Atrial Fibrillation - Metoprolol succinate 25mg daily, Tikosyn 250mg bid, Eliquis 5mg bid. * Coronary artery disease - Metoprolol succinate 25mg daily, NTG 0.4mg sl q5m prn. * Chronic HFpEF - Metoprolol succinate 25mg daily, Jardiance 12.5mg daily, Bumex 1mg mwf. * Hyperlipidemia - Atorvastatin 10mg qhs, Zetia 10mg daily. * Vitamin D deficiency - D3 25mcg daily. * Vitamin B12 deficiency - B12 1000mcg im qmonth. * Depression - Duloxetine 120mg daily, stable chronic salvage determiner use, GDR not recommended. * BPH - Finasteride 5mg daily, Tamsulosin 0.8mg thru 01/18/2024. * Rash/pruritus - HC 2.5% topical tid prn, Hydroxyzine 25mg q6 prn, Calmoseptine topical bid. * Tinea Corporis - Nystatin powder topical bid. * Anxiety/restlessness/sleep - Lorazepam 0.5mg qhs thru 11/24/2023. * Muscle spasm - Robaxin 750mg tid prn. * Orthostatic hypotension - Midodrine 5mg tid prn. * Macular degeneration - Healthy Eyes 1 cap daily. * GERD - Pantoprazole 40mg daily, Carafate 1gm bidac. * Left upper lobe Klebsiella abscess/left lower lobe pneumonia - Zosyn 3.35gm iv q8 thru 01/01/2024, order PICC line, Mucinex 1200mg bid, Consult Dr. Galloway for expert care.
[2023-11-21] MEDS: Budesonide Respules 0.5 MG/2 ML AMPUL.NEB. INHALATION ×2 (07:50→20:04)
[2023-11-21] MEDS: Umeclidinium Brm/Vilanterol 62.5-25 mcg Inh 1 PUFF INHALATION (09:58)
[2023-11-21] MEDS: DULoxetine Hcl 60 MG Capsule 120 MG PO (09:58)
[2023-11-21] MEDS: Multivitamin (Healthy Eyes) Capsule 1 CAP PO (09:59)
[2023-11-21] MEDS: Empagliflozin 25 MG Tablet 12.5 MG PO (10:00)
[2023-11-21] MEDS: guaiFENesin 1,200 MG Tablet 1200 MG PO ×2 (10:01→22:27)
[2023-11-21] MEDS: Finasteride 5 MG Tablet PO (10:02)
[2023-11-21] MEDS: Cholecalciferol (VIT D3) 25 MCG TABLET (1,000 UNITS) PO (10:03)
[2023-11-21] MEDS: Senna/Docusate Sodium 1 Tablet PO ×2 (10:23→22:26)
[2023-11-21] MEDS: Midodrine HCl 5 MG Tablet PO (10:23)
[2023-11-21] MEDS: Dofetilide 250 MCG Capsule PO ×2 (10:24→22:27)
[2023-11-21] MEDS: Hydrocortisone 2.5% Crm 1 APPLIC TOPICAL ×2 (10:28→22:34)
[2023-11-21] MEDS: Nystatin Powder 15gm Bottle 1 APPLIC TOPICAL ×2 (10:30→22:33)
[2023-11-21] MEDS: 0.9% Normal Saline (1000mL) 1,000 ML 999 ML IV (10:30)
[2023-11-21] MEDS: Menthol/Lanolin/Calamine/Znox 113 GM Tube 1 APPLIC TOPICAL ×2 (10:30→22:24)
--- NOTE | 2023-11-21 10:38 | NURSING ---
dr Shah notified of low BP, new order to admin 1 liter bolus x1 now. pt states he has not drank much lately. updated daughter, she reports that he usually will take midodrine if his BP that low in AM, but if it is ok later in the day they hold the other 2 doses at 1430 & 1830. will get order per home regimen when I update dr shah on BP after bolus. pt resting in chair, denies needs or symptoms. call light in reach.
--- NOTE | 2023-11-21 12:02 | NURSING ---
DR OLVERA UPDATED ON BP 94/56 HR 70 AFTER IVF BOLUS 1 LITER & ADMIN OF PRN MIDODRINE. DAUGHTER AWARE AND DID SPEAK WITH DR OLVERA VIA PHONE WELL. PT RESTING IN RECLINER CHIAR W/EYES CLOSED. CALL LIGHT IN REACH.
--- NOTE | 2023-11-21 12:30 | NURSING ---
NOTIFIED LINGO CLEANER FOR PICC LINE INSERTION, AWAITING RETURN PHONE CALL FOR ETA
[2023-11-21] MEDS: Piperacil/Tazobactam 3.375 GM in 0.9% Normal Saline (50mL MB+) 50 ML IV ×2 (14:05→22:57)
--- NOTE | 2023-11-21 19:46 | NURSING ---
Patient's family requesting probiotic d/t increased antibiotic use. Consulted Dr. Shah via telephone, N.O. for lactobacillus 1 cap BID GIOVANNI PO. Telephone order read back.
[2023-11-21] MEDS: Atorvastatin Calcium 10 MG Tablet PO (22:30)
[2023-11-21] MEDS: Lactobacillis Acidophilus 1 CAP PO (22:33)
[2023-11-22] VITALS (7 sets, daily range): BP systolic 100–118; BP diastolic 55–68; PULSE 61–88; RESP 16–19; TEMP 36.6; O2SAT 95–98
[2023-11-22] MEDS: Piperacil/Tazobactam 3.375 GM in 0.9% Normal Saline (50mL MB+) 50 ML IV ×3 (05:18→21:30)
[2023-11-22] MEDS: 0.9% Saline Lock 10 ML Syringe IV ×3 (05:21→21:31)
[2023-11-22 06:41] LABS: Bedside Glucose 116 mg/dL (74-106)
[2023-11-22] MEDS: Sucralfate 1 GM Tablet PO ×2 (06:42→16:33)
[2023-11-22] MEDS: Pantoprazole Sodium 40 MG Tablet PO (06:42)
[2023-11-22] MEDS: Lactobacillis Acidophilus 1 CAP PO ×2 (10:27→21:33)
[2023-11-22] MEDS: Metoprolol(XL)Succ 25 MG Tablet PO (10:31)
[2023-11-22] MEDS: Cholecalciferol (VIT D3) 25 MCG TABLET (1,000 UNITS) PO (10:32)
[2023-11-22] MEDS: Senna/Docusate Sodium 1 Tablet PO ×2 (10:32→21:35)
[2023-11-22] MEDS: Multivitamin (Healthy Eyes) Capsule 1 CAP PO (10:32)
[2023-11-22] MEDS: DULoxetine Hcl 60 MG Capsule 120 MG PO (10:32)
[2023-11-22] MEDS: Finasteride 5 MG Tablet PO (10:32)
[2023-11-22] MEDS: Dofetilide 250 MCG Capsule PO ×2 (10:32→22:25)
[2023-11-22] MEDS: APIXABAN 5 MG TABLET PO ×2 (10:32→21:35)
[2023-11-22] MEDS: Empagliflozin 25 MG Tablet 12.5 MG PO (10:32)
[2023-11-22] MEDS: guaiFENesin 1,200 MG Tablet 1200 MG PO ×2 (10:32→21:33)
[2023-11-22] MEDS: Nystatin Powder 15gm Bottle 1 APPLIC TOPICAL ×2 (10:33→21:35)
[2023-11-22] MEDS: Umeclidinium Brm/Vilanterol 62.5-25 mcg Inh 1 PUFF INHALATION (10:34)
[2023-11-22] MEDS: Cyanocobalamin (B12) 1,000 MCG/ML Vial 1000 MCG IM (10:34)
[2023-11-22] MEDS: Menthol/Lanolin/Calamine/Znox 113 GM Tube 1 APPLIC TOPICAL ×2 (10:34→21:37)
[2023-11-22] MEDS: Budesonide Respules 0.5 MG/2 ML AMPUL.NEB. INHALATION ×2 (11:06→19:55)
[2023-11-22] MEDS: Albuterol 2.5 MG/3 ML VIAL.NEB. INHALATION ×2 (11:06→19:55)
[2023-11-22] MEDS: Tuberculin,Purif.prot.deriv. 50 TU/ML Vial 0.1 ML ID (11:11)
[2023-11-22] MEDS: LORazepam 0.5 MG Tablet PO (21:33)
[2023-11-22] MEDS: Ezetimibe 10 MG Tablet PO (21:33)
[2023-11-22] MEDS: Tamsulosin HCl 0.4 MG Capsule 0.8 MG PO (21:34)
[2023-11-22] MEDS: Atorvastatin Calcium 10 MG Tablet PO (21:35)
[2023-11-23] VITALS (8 sets, daily range): BP systolic 85–98; BP diastolic 55–66; PULSE 65–79; RESP 16–18; TEMP 36.5; O2SAT 97
[2023-11-23 06:19] LABS: Bedside Glucose 120 mg/dL (74-106)
[2023-11-23] MEDS: Piperacil/Tazobactam 3.375 GM in 0.9% Normal Saline (50mL MB+) 50 ML IV ×3 (06:24→21:20)
[2023-11-23] MEDS: Pantoprazole Sodium 40 MG Tablet PO (06:24)
[2023-11-23] MEDS: 0.9 % NaCl (Sterile) Posiflush 10 mL IV (06:24)
[2023-11-23] MEDS: Sucralfate 1 GM Tablet PO ×2 (06:25→17:05)
[2023-11-23] MEDS: Albuterol 2.5 MG/3 ML VIAL.NEB. INHALATION ×3 (07:55→19:56)
[2023-11-23] MEDS: Budesonide Respules 0.5 MG/2 ML AMPUL.NEB. INHALATION ×2 (07:55→19:56)
[2023-11-23] MEDS: Umeclidinium Brm/Vilanterol 62.5-25 mcg Inh 1 PUFF INHALATION (08:46)
[2023-11-23] MEDS: Finasteride 5 MG Tablet PO (08:46)
[2023-11-23] MEDS: Dofetilide 250 MCG Capsule PO ×2 (08:46→21:08)
[2023-11-23] MEDS: Bumetanide 0.5 MG Tablet 1 MG PO (08:47)
[2023-11-23] MEDS: guaiFENesin 1,200 MG Tablet 1200 MG PO ×2 (08:48→21:08)
[2023-11-23] MEDS: Cholecalciferol (VIT D3) 25 MCG TABLET (1,000 UNITS) PO (08:48)
[2023-11-23] MEDS: Lactobacillis Acidophilus 1 CAP PO ×2 (08:48→21:09)
[2023-11-23] MEDS: Empagliflozin 25 MG Tablet 12.5 MG PO (08:48)
[2023-11-23] MEDS: Senna/Docusate Sodium 1 Tablet PO ×2 (08:48→21:09)
[2023-11-23] MEDS: Multivitamin (Healthy Eyes) Capsule 1 CAP PO (08:48)
[2023-11-23] MEDS: Metoprolol(XL)Succ 25 MG Tablet PO (08:48)
[2023-11-23] MEDS: APIXABAN 5 MG TABLET PO ×2 (08:49→21:08)
[2023-11-23] MEDS: Nystatin Powder 15gm Bottle 1 APPLIC TOPICAL ×2 (08:49→21:08)
[2023-11-23] MEDS: Menthol/Lanolin/Calamine/Znox 113 GM Tube 1 APPLIC TOPICAL ×2 (08:49→21:08)
[2023-11-23] MEDS: Midodrine HCl 5 MG Tablet PO ×3 (08:50→18:25)
--- NOTE | 2023-11-23 09:35 | NURSING ---
Interrelated Special Education Teacher Note; Activity Asset: Jer Gandhi is independent in his choice of daily activities. He prefers to be called Skip. His family, friends and roman catholic will visits and bring him items he may need. Skip will read, watch tv, work on word puzzles and welcomes visits from the catalogue and special products manager and therapy dog when available. Staff will encourage social activities, remind him of weekly activities and respect his right to say no.
--- NOTE | 2023-11-23 10:53 | NURSING ---
Notified Dr Galloway's office of consult.
--- NOTE | 2023-11-23 11:22 | PCM.PN.DRR ---
Documented by User: Ruben De Leon 11/23/23 12:41 TCU RX Drug Regimen Review Subjective/Objective Subjective/Objective: Subjective: TCU admission note. 83 year old male with below past medical history significant for acute respiratory failure with hypoxia, left upper lobe Klebsiella lung abscess, left lower lobe pneumonia, bronchiectasis, failed outpatient therapy, admitted to TCU with debility, here for rehabilitation, strengthening, intravenous antibiotics, prior to discharge home with . Objective: Allergies tramadol Allergy (Unknown, Verified 11/20/23 15:52) PT UNSURE OF REACTION pt and daughter unsure of reaction clindamycin Adverse Reaction (Intermediate, Verified 11/21/23 11:51) Rash terbinafine Adverse Reaction (Intermediate, Verified 11/21/23 11:51) Rash Current Medications Generic Name Dose Route Start Last Admin Trade Name Freq PRN Reason Stop Dose Admin Acetaminophen 1,000 mg 11/20/23 22:27 Acetaminophen 500 Mg Tablet PO Q6H PRN PRN Pain Score 1-10 Albuterol Sulfate 2.5 mg 11/20/23 23:09 11/23/23 07:55 Albuterol 2.5 Mg/3 Ml Vial.Neb. INHALATION 2.5 mg Q6HWA.RT GIOVANNI Administration Apixaban 5 mg 11/20/23 22:53 11/23/23 08:49 Apixaban 5 Mg Tablet PO 5 mg BID GIOVANNI Administration Atorvastatin Calcium 10 mg 11/21/23 22:00 11/22/23 21:35 Atorvastatin Calcium 10 Mg Tablet PO 10 mg QHS GIOVANNI Administration Budesonide 0.5 mg 11/20/23 22:30 11/23/23 07:55 Budesonide Respules 0.5 Mg/2 Ml Ampul.Neb. INHALATION 0.5 mg BID.RT GIOVANNI Administration Bumetanide 1 mg 11/20/23 22:30 11/23/23 08:47 Bumetanide 0.5 Mg Tablet PO 1 mg [id number] GIOVANNI Administration Protocol Calamine/Phenol 1 applic 11/21/23 10:00 11/23/23 08:49 Menthol/Lanolin/Calamine/Znox 113 Gm Tube TOPICAL 1 applic BID GIOVANNI Administration Protocol Cholecalciferol 25 mcg 11/21/23 10:00 11/23/23 08:48 Cholecalciferol (Vit D3) 25 Mcg Tablet (1,000 Units) PO 25 mcg DAILY GIOVANNI Administration Cyanocobalamin 1,000 mcg 11/22/23 10:00 11/22/23 10:34 Cyanocobalamin (B12) 1,000 Mcg/Ml Vial IM 1,000 mcg QMONTH GIOVANNI Administration Dofetilide 250 mcg 11/20/23 22:30 11/23/23 08:46 Dofetilide 250 Mcg Capsule PO 250 mcg 1030,2230 GIOVANNI Administration Duloxetine HCl 120 mg 11/21/23 10:00 11/22/23 10:32 Duloxetine Hcl 60 Mg Capsule PO 120 mg DAILY GIOVANNI Administration Ezetimibe 10 mg 11/20/23 22:00 11/22/23 21:33 Ezetimibe 10 Mg Tablet PO 10 mg QHS GIOVANNI Administration Empagliflozin 12.5 mg 11/21/23 10:00 11/23/23 08:48 Empagliflozin 25 Mg Tablet PO 12.5 mg DAILY GIOVANNI Administration Finasteride 5 mg 11/21/23 10:00 11/23/23 08:46 Finasteride 5 Mg Tablet PO 5 mg DAILY GIOVANNI Administration Guaifenesin 1,200 mg 11/20/23 23:11 11/23/23 08:48 Guaifenesin 1,200 Mg Tablet PO 1,200 mg BID GIOVANNI Administration Heparin Sodium (Beef Lung) 50 units 11/21/23 17:15 Heparin Pf Lock 10 Units/Ml 50 Units/5 Ml Syringe IV UD PRN PICC Line Heparin Flush Hydrocortisone 1 applic 11/20/23 23:05 11/21/23 22:34 Hydrocortisone 2.5% Crm TOPICAL 1 applic TID PRN PRN Administration RASH/TOPICAL IRRITATION Protocol Hydroxyzine Pamoate 25 mg 11/20/23 23:07 Hydroxyzine Corrie 25 Mg Capsule PO Q6H PRN PRN ITCHING Sodium Chloride 250 mls @ 15 mls/hr 11/21/23 04:54 11/22/23 05:14 IV 0 mls/hr .[id number] PRN Infusion Saline Flush Piperacillin Sod/Tazobactam 50 mls @ 12.5 mls/hr 11/21/23 14:00 11/23/23 06:24 Sod 3.375 gm/ Sodium Chloride IV 01/01/24 23:59 12.5 mls/hr Q8 GIOVANNI Administration Lorazepam 0.5 mg 11/20/23 22:00 11/22/23 21:33 Lorazepam 0.5 Mg Tablet PO 11/24/23 22:01 0.5 mg QHS GIOVANNI Administration Magnesium Citrate 300 ml 11/21/23 08:14 Magnesium Citrate 300 Ml PO DAILY PRN Constipation Methocarbamol 750 mg 11/20/23 22:38 Methocarbamol 750 Mg Tablet PO TID PRN PRN Muscle Relaxer Metoprolol Succinate 25 mg 11/21/23 10:00 11/23/23 08:48 Metoprolol(Xl)Succ 25 Mg Tablet PO 25 mg DAILY GIOVANNI Administration Protocol Midodrine 5 mg 11/21/23 14:30 11/23/23 08:50 Midodrine Hcl 5 Mg Tablet PO 5 mg 1030,1430,1830 GIOVANNI Administration Multivitamins/Minerals 1 cap 11/21/23 10:00 11/23/23 08:48 Multivitamin (Healthy Eyes) Capsule PO 1 cap DAILY GIOVANNI Administration Nitroglycerin 0.4 mg 11/20/23 23:04 Nitroglycerin (Inpatient Use) 0.4 Mg Tab.Subl SL Q5M PRN CARDIAC/CHEST PAIN Nystatin 1 applic 11/21/23 10:00 11/23/23 08:49 Nystatin Powder 15gm Bottle TOPICAL 1 applic BID [facility] Administration Protocol Pantoprazole Sodium 40 mg 11/21/23 06:00 11/23/23 06:24 Pantoprazole Sodium 40 Mg Tablet PO 40 mg 0600 GIOVANNI Administration Senna/Docusate Sodium 1 tablet 11/21/23 10:00 11/23/23 08:48 Senna/Docusate Sodium 1 Tablet PO 1 tablet BID GIOVANNI Administration Sodium Chloride 10 - 40 ml 11/20/23 22:44 11/22/23 21:31 0.9% Saline Lock 10 Ml Syringe IV 20 ml UD PRN Administration SALINE FLUSH Sodium Chloride 10 - 40 ml 11/21/23 17:15 11/23/23 06:24 0.9 % Nacl (Sterile) Posiflush 10 Ml IV 20 ml UD PRN Administration Port access or dressing change Sucralfate 1 gm 11/21/23 07:00 11/23/23 06:25 Sucralfate 1 Gm Tablet PO 1 gm BIDAC GIOVANNI Administration Tamsulosin HCl 0.8 mg 11/20/23 22:00 11/22/23 21:34 Tamsulosin Hcl 0.4 Mg Capsule PO 01/18/24 22:01 0.8 mg QHS GIOVANNI Administration Tuberculin PPD 0.1 ml 11/29/23 10:00 Tuberculin,Purif.Prot.Deriv. 50 Tu/Ml Vial ID 11/29/23 10:01 X1 ONE Umeclidinium/Vilanterol 1 puff 11/21/23 10:00 11/23/23 08:46 Umeclidinium Brm/Vilanterol 62.5-25 Mcg Inh INHALATION 1 puff DAILY GIOVANNI Administration Problem List Chronic heart failure with preserved ejection fraction (HFpEF) (Acute) Macular degeneration (Acute) Orthostatic hypotension (Acute) Atrial fibrillation (Acute) Bronchiectasis (Acute) Abscess of upper lobe of left lung with pneumonia (Acute) Acute respiratory failure with hypoxia (Acute) Coronary artery disease (Acute) BPH (benign prostatic hyperplasia) (Acute) GERD (gastroesophageal reflux disease) (Acute) Depression (Acute) Anxiety (Acute) Debility (Acute) COPD (chronic obstructive pulmonary disease) (Chronic) Hyperlipidemia (Chronic) Vital Signs Temp Pulse Resp BP Pulse Ox O2 Del Method O2 Flow Rate 97.7 F L 77 18 92/55 L 97 Nasal Cannula 3 11/23/23 10:50 11/23/23 10:50 11/23/23 10:50 11/23/23 10:50 11/23/23 10:50 11/23/23 10:50 11/23/23 10:50 Oxygen Flow Rate (L/min) 3 Oxygen Delivery Method Nasal Cannula Weight: 73.482 kg Body Mass Index (BMI) 24.6 Sodium 139 mmol/L (136-145) 11/21/23 06:35 Potassium 4.0 mmol/L (3.5-5.1) 11/21/23 06:35 Chloride 106 mmol/L (98-107) 11/21/23 06:35 Carbon Dioxide 31.0 mmol/L (21.0-32.0) 11/21/23 06:35 Anion Gap 2 (5-15) L 11/21/23 06:35 BUN 13 mg/dL (7-18) 11/21/23 06:35 Creatinine 0.95 mg/dL (0.70-1.30) 11/21/23 06:35 Est GFR (MDRD) Af Amer 97 mL/min (>60) 11/21/23 06:35 Est GFR (MDRD) Non-Af 80 mL/min (>60) 11/21/23 06:35 BUN/Creatinine Ratio 13.7 RATIO (10-20) 11/21/23 06:35 Glucose 115 mg/dL (74-106) H 11/21/23 06:35 Assessment/Plan: 1. Pain: acetaminophen 1000 mg PO Q6H PRN pain. The patient has not required any PRN doses of acetaminophen so far this admission. Please continue to monitor for PRN medication administration, for pain levels and LFTs (AST/ALT = 7/10 U/L on 11/11/23). 2. Bowel: senna/docusate 1 tablet PO BID, magnesium citrate 300 mL PO daily PRN constipation. The patient has not required any PRN doses of magnesium citrate so far this admission and the patient's last bowel movement was on 11/22/23. Please continue to monitor for bowel movements, for PRN medication administration, for constipation and diarrhea. 3. Left upper lobe abscess/Pneumonia: piperacillin/tazobactam 3.375 grams Q8H through 01/01/24, lactobacillus 1 capsule PO BID. Please continue to monitor for resolution of infection, for s/s of infection such as fever (Temp = 97.7 F on 11/23/23), chills, white blood cell count (WBC = 10.4 K/mm3 on 11/21/23), for shortness of breath, renal function (serum creatinine = 0.95 mg/dL with creatinine clearance ~ 55 mL/min on 11/21/23), for diarrhea, for GI distress with lactobacillus administration, and sodium levels (Na = 139 mmol/L on 11/21/23). 4.Atrial fibrillation/chronic HFpEF/coronary artery disease/hyperlipidemia: atorvastatin 10 mg PO QHS, apixaban 5 mg PO BID, bumetanide 1 mg PO MWF, dofetilide 250 mcg PO BID, nepwurqaabsci95.5 mg PO daily, ezetimibe 10 mg PO QHS, metoprolol succinate 25 mg PO daily, nitroglycerin 0.4 mg PO Q5M PRN chest pain. The patient has not required any PRN doses of nitroglycerin so far this admisison. Please continue to monitor for palpitations, for s/s of stroke, for s/s of CHF exacerbation such as swelling and shortness of breath, for chest pain, LFTs (AST/ALT = 7/10 U/L on 11/11/23), lipid levels (cholesterol = 147mg/dL with LDL = 89 mg/dL on 04/03/23), for myalgias, for bleeding/excessive bruising, renal function (serum creatinine = 0.95 mg/dL with creatinine clearance ~ 55 mL/min on 11/21/23), hemoglobin levels (Hgb = 11.2 g/dL on 11/21/23), platelet counts (Plt = 255 K/mm3 on 11/21/23), QTc (last QTC = 426 on 11/11/23), potassium levels (K = 4.0 mmol/L on 11/21/23), magnesium levels (Mg = 2.0 mg/dL on 03/29/23), calcium levels (Ca = 8.9 mg/dL on 11/21/23), for headache, dysrhythmias, for s/s of dehydration, for urinary tract and other genito-urinary infections, heart rates (recent range = 61-88 beats/min), blood pressures (recent range = 84-118/55-68 mmHg), for fatigue and for PRN medication administration. 5. Emphysema of lung: budesonide 0.5 mg inhalation BID, albuterol 2.5 mg Neb Q6H WA, umeclidinium 1 puff daily, guaifenesin 1200 mg PO BID. Please continue to monitor for shortness of breath, respiratory rate (RR = 18 breaths/min on 11/23/23), cough, sputum production, for s/s of oral thrush, for palpitations with albuterol administration, for s/s of anticholinergic effects such as dry mouth, dry eyes, and constipation. 6. Orthostatic hypotension: midodrine 5 mg PO BID. Please continue to monitor blood pressures (recent range = 84-118/55-68 mmHg) and for s/s of orthostasis. 7. BPH: finasteride 5 mg PO daily, tamsulosin 0.8 mg PO QHS through 01/18/24. Please continue to monitor for s/s of orthostasis, and for urinary retention. 8. Muscle spasms: methocarbamol 750 mg PO TID PRN neck muscle pain. The patient has not required any PRN doses of methocarbamol so far this admission. Please continue to monitor for muscle spams, for PRN medication usage, for dizziness, confusion and drowsiness. 9. GERD: pantoprazole 40 mg PO daily, sucralfate 1 gram PO BID before meals. Please continue to monitor for GERD, for diarrhea that could indicate clostridium difficile infection, for s/s of bone resorption such as fractures, magnesium levels (Mg = 2.0 mg/dL on 03/29/23), and for constipation. 10. Rash/pruritus: hydrocortisone 2.5% topically TID PRN rash/itching, hydroxyzine 25 mg PO Q6H PRN itching, calmoseptine topically BID. The patient has used 2 applications of hydrocortisone cream but has not required any PRN hydroxyzine so far this admission. Please continue to monitor for rash resolution, for itching, and for PRN medication usage. 11. Vitamin D deficiency: cholecalciferol 25 mcg PO daily. Please continue to monitor for s/s of vitamin D deficiency as well as vitamin D levels (no recent vitamin D levels documented). Please consider ordering a vitamin D level if clinically indicated. 12. Vitamin B12 deficiency: cyanocobalamin 1000 mcg IM every month. Please continue to monitor vitamin B12 levels (no recent vitamin B12 level documented) as well as for s/s of vitamin B12 deficiency. Please consider ordering a vitamin B12 level if clinically indicated. 13. Macular degeneration: healthy eyes capsule PO daily. Please continue to monitor eye health. 14. Tinea Corporis: nystatin powder 1 application topically BID. Please continue to monitor for resolution of tinea corporis. Assessment/Plan for indications treated with psychotropic medications: 1. Depression: duloxetine 120 mg PO daily. Please see provider note regarding stable chronic long-term use GDR not recommended. Please continue to monitor for s/s of depression, for SI, LFTs (AST/ALT = 7/10 U/L on 11/11/23), for s/s of serotonin syndrome, for drowsiness, and for abdominal pain. 2. Anxiety/restlessness/sleep: lorazepam 0.5 mg PO QHS through 11/24/23. Stop date in already for this medication, GDR not needed. Please continue to monitor for sedation, drowsiness, syncope, and falls. Medical chart and medication regimen reviewed. The following medication irregularities or issues were identified: 1. Vitamin D deficiency: cholecalciferol 25 mcg PO daily. Please continue to monitor for s/s of vitamin D deficiency as well as vitamin D levels (no recent vitamin D levels documented). Please consider ordering a vitamin D level if clinically indicated. 2. Vitamin B12 deficiency: cyanocobalamin 1000 mcg IM every month. Please continue to monitor vitamin B12 levels (no recent vitamin B12 level documented) as well as for s/s of vitamin B12 deficiency. Please consider ordering a vitamin B12 level if clinically indicated. Date Date of Note:: 11/23/23 Documented by User: Dr. Parrish Shah MD 11/23/23 13:03 TCU RX Drug Regimen Review Provider Comments Provider responsibility Provider Comments to Recommendations by Pharmacy: Agree
[2023-11-23] MEDS: DULoxetine Hcl 60 MG Capsule 120 MG PO (11:25)
--- NOTE | 2023-11-23 13:25 | CASEMGMT ---
Social Work SW met with patient to complete initial assessment. Pt known to this worker from previous stay. Verified contacts. SW requested to pt for family to provide copies of advanced directives. Pt confirmed code status as full code. SW educated to [facility] insurance with NRD 11/22 and continued stay is not guaranteed with each review. Pt's goal is to return home with and dtrs support. SW will continue to follow for DC planning. Peyton Simmons, MACRAIO PICKERINGW
[2023-11-23] MEDS: 0.9% Normal Saline (250mL Bag) 250 ML 15 ML IV (14:37)
--- NOTE | 2023-11-23 15:09 | PCM.CONS.GEN ---
Assessment & Plan Assessment/Plan (1) Abscess of upper lobe of left lung with pneumonia: PLAN: Reviewed [facility] and [facility] records. On zosyn, feeling a little better. With failure of appropriate outpt empiric abx, would recommend pulm raeal to decide if he needs bronch or transthoracic aspiration with gill-cxs and path/cytology. Will follow, thank you HPI Consult Data Date of Consult: 11/23/23 HPI Narrative Reason for Consultation: lung abscess HPI Narrative: ELIO DORAN, is a 83 M with CHF, CAD, BPH, COPD, presented 10/24/23 to [facility] ED with 3 weeks hemoptysis, dyspnea, not feeling well. No fever, no night sweats. CT showed lung abscess, and he was covid (+). Transferred to [facility], sputum cx neg, seen by pulm and ID, discharged on empiric course po augmentin. Sx were not improving (though hemoptysis had resolved). Saw his pulm Dr. Donald, and arranged to be admitted to TCU and started on zosyn. Feels like sputum and dyspnea are improved. No fever, no n/v/d. Full ROS performed and neg except as noted above. [facility] Medical History Pulmonary fibrosis Sinus node dysfunction HFrEF (heart failure with reduced ejection fraction) Chronic diarrhea Retroperitoneal hematoma Atherosclerotic heart disease of [place] coronary artery without angina pectoris Obstructive sleep apnea Hyperlipidemia SVT (supraventricular tachycardia) GERD (gastroesophageal reflux disease) COPD (chronic obstructive pulmonary disease) BPH (benign prostatic hyperplasia) Paroxysmal atrial fibrillation Home Medications ?Medication ?Instructions ?Recorded ?Last Taken ?Type rosuvastatin 5 mg tablet (Crestor) 5 mg PO QDAY cholesterol 07/04/17 10/24/23 History cholecalciferol (vitamin D3) 25 25 mcg PO DAILY supplement 05/22/21 10/24/23 History mcg (1,000 unit) tablet metoprolol succinate 25 mg 25 mg PO DAILY AFIB 06/27/21 10/24/23 History tablet,extended release 24 hr nitroglycerin 0.4 mg sublingual 0.4 mg sublingual Q5M PRN CP 06/27/21 Unknown History tablet cyanocobalamin (vitamin B-12) 100 mcg IM QMONTH supplement 03/29/23 10/17/23 History 1,000 mcg/mL injection kit dofetilide 250 mcg capsule 250 mcg PO Q12H afib 03/29/23 10/24/23 History duloxetine 60 mg capsule,delayed See Rx Instructions PO DAILY mood 03/29/23 10/24/23 History release empagliflozin 25 mg tablet 12.5 mg PO DAILY heart 03/29/23 10/24/23 History (Jardiance) finasteride 5 mg tablet 5 mg PO DAILY bph 03/29/23 10/24/23 History levalbuterol HCl 0.63 mg/3 mL 0.63 mg inhalation TID copd 03/29/23 10/24/23 History solution for nebulization midodrine 5 mg tablet 5 mg PO TID PRN blood pressure 03/29/23 10/24/23 History vit C 250 mg-vit E 200 unit-zinc 1 cap PO DAILY supplement 03/29/23 10/24/23 History ox 12.5 qx-evjvef-rtikin-zeax capsule (ICaps AREDS2) budesonide 0.5 mg/2 mL suspension 0.5 mg (2 mL) inhalation BID.RT 04/01/23 10/24/23 Rx for nebulization Asthma #0 mL lorazepam 0.5 mg tablet 0.5 mg PO QHS Anxiety #5 tabs 04/01/23 10/23/23 Rx acetaminophen 500 mg tablet 1,000 mg (2 x 500 mg) PO Q6H PRN 04/10/23 10/23/23 Rx PRN Pain Score 1-3 #0 tabs apixaban 5 mg tablet (Eliquis) 5 mg PO BID BLOOD THINNER #0 tabs 04/10/23 10/11/23 Rx bumetanide 0.5 mg tablet 1 mg (2 x 0.5 mg) PO MOWEFR EDEMA 04/10/23 11/18/23 Rx #0 tabs tamsulosin 0.4 mg capsule 0.8 mg (2 x 0.4 mg) PO QHS bph 30 04/10/23 10/23/23 Rx days #60 caps ezetimibe 10 mg tablet 10 mg PO QHS cholesterol 10/24/23 Unknown History guaifenesin 1,200 mg tablet, 1,200 mg PO BID mucus relief 10/24/23 Unknown History extended release 12 hr (Mucinex) pantoprazole 40 mg tablet,delayed 40 mg PO DAILY GERD 10/24/23 Unknown History release tiotropium 2.5 mcg-olodaterol 2.5 2 inh inhalation DAILY COPD 10/24/23 Unknown History mcg/actuation mist for inhalation (Stiolto Respimat) methocarbamol 750 mg tablet 750 mg PO TID PRN Muscle Relaxer 11/20/23 Unknown History sucralfate 100 mg/mL oral 1 g PO BID antacid 11/20/23 Unknown History suspension (Carafate) Allergy/AdvReac Type Severity Reaction Status Date / Time tramadol Allergy Unknown PT UNSURE Verified 11/20/23 15:52 OF REACTION clindamycin AdvReac Intermediate Rash Verified 11/21/23 11:51 terbinafine AdvReac Intermediate Rash Verified 11/21/23 11:51 Family History Mother , Age 64 from Emphysema COPD (chronic obstructive pulmonary disease) Blood disorder Father No problems noted. Surgical History S/P ablation of atrial fibrillation History of left heart catheterization (05/27/21) History of tonsillectomy History of ankle surgery History of back surgery History of appendectomy History of inguinal hernia repair History of umbilical hernia repair Social History household members: spouse housing: house Smoking Status: Former smoker how long ago did patient quit smokin years ago alcohol intake: current alcohol intake frequency: holidays/special occasions only substance use type: does not use caffeine: Yes Type: coffee Number of servings: 2 Physical Exam Const alert, oriented x3 and no apparent distress General Appearance: cooperative HEENT normocephalic and head/scalp atraumatic Eyes PERRL and EOMs intact bilaterally Neck supple Resp Auscultation: rhonchi and diminished lung sounds Cardio regular rate and regular rhythm GI soft to palpation, non-tender and non-distended Extremity General Extremity: Negative for edema Skin no rashes or lesions noted Neuro CN's II-XII intact bilaterally Lab / Micro Data Attestation: I reviewed the patient's lab results. 11/21/23 06:35 11/21/23 06:35 Labs: Laboratory Results - last 24 hr 11/23/23 05:47: POC Glucose 120 H
[2023-11-23] MEDS: LORazepam 0.5 MG Tablet PO (21:07)
[2023-11-23] MEDS: Atorvastatin Calcium 10 MG Tablet PO (21:09)
[2023-11-23] MEDS: Ezetimibe 10 MG Tablet PO (21:09)
[2023-11-23] MEDS: Tamsulosin HCl 0.4 MG Capsule 0.8 MG PO (21:09)
[2023-11-23] MEDS: 0.9% Saline Lock 10 ML Syringe IV (21:21)
[2023-11-24] VITALS (7 sets, daily range): BP systolic 90–104; BP diastolic 53–65; PULSE 72–79; RESP 16–18; TEMP 36.6; O2SAT 93–96; BMI 24.7
[2023-11-24] MEDS: Piperacil/Tazobactam 3.375 GM in 0.9% Normal Saline (50mL MB+) 50 ML IV ×3 (05:46→21:16)
[2023-11-24] MEDS: Pantoprazole Sodium 40 MG Tablet PO (05:46)
[2023-11-24] MEDS: Sucralfate 1 GM Tablet PO ×2 (05:46→16:35)
[2023-11-24 06:42] LABS: Bedside Glucose 110 mg/dL (74-106)
[2023-11-24] MEDS: Albuterol 2.5 MG/3 ML VIAL.NEB. INHALATION ×3 (07:02→19:20)
[2023-11-24] MEDS: Budesonide Respules 0.5 MG/2 ML AMPUL.NEB. INHALATION ×2 (07:02→19:20)
--- NOTE | 2023-11-24 09:45 | NURSING ---
Left VM with Dr. Donald's office about consult, requested return call.
[2023-11-24] MEDS: Umeclidinium Brm/Vilanterol 62.5-25 mcg Inh 1 PUFF INHALATION (10:18)
[2023-11-24] MEDS: Lactobacillis Acidophilus 1 CAP PO ×2 (10:18→21:09)
[2023-11-24] MEDS: DULoxetine Hcl 60 MG Capsule 120 MG PO (10:19)
[2023-11-24] MEDS: APIXABAN 5 MG TABLET PO ×2 (10:19→21:09)
[2023-11-24] MEDS: Empagliflozin 25 MG Tablet 12.5 MG PO (10:21)
[2023-11-24] MEDS: Finasteride 5 MG Tablet PO (10:22)
[2023-11-24] MEDS: guaiFENesin 1,200 MG Tablet 1200 MG PO ×2 (10:22→21:09)
[2023-11-24] MEDS: Senna/Docusate Sodium 1 Tablet PO (10:23)
[2023-11-24] MEDS: Cholecalciferol (VIT D3) 25 MCG TABLET (1,000 UNITS) PO (10:23)
[2023-11-24] MEDS: Midodrine HCl 5 MG Tablet PO ×3 (10:25→17:53)
[2023-11-24] MEDS: Dofetilide 250 MCG Capsule PO ×2 (10:25→23:04)
[2023-11-24] MEDS: Nystatin Powder 15gm Bottle 1 APPLIC TOPICAL ×2 (10:32→21:24)
[2023-11-24] MEDS: Menthol/Lanolin/Calamine/Znox 113 GM Tube 1 APPLIC TOPICAL ×2 (10:33→21:24)
[2023-11-24] MEDS: 0.9% Normal Saline (250mL Bag) 250 ML 15 ML IV (13:50)
[2023-11-24] MEDS: Tamsulosin HCl 0.4 MG Capsule 0.8 MG PO (21:08)
[2023-11-24] MEDS: Ezetimibe 10 MG Tablet PO (21:09)
[2023-11-24] MEDS: Atorvastatin Calcium 10 MG Tablet PO (21:09)
[2023-11-24] MEDS: LORazepam 0.5 MG Tablet PO (21:16)
[2023-11-24] MEDS: 0.9% Saline Lock 10 ML Syringe IV (21:16)
[2023-11-25] VITALS (7 sets, daily range): BP systolic 86–105; BP diastolic 55–62; PULSE 79–96; RESP 16–18; O2SAT 93–95
[2023-11-25] MEDS: Piperacil/Tazobactam 3.375 GM in 0.9% Normal Saline (50mL MB+) 50 ML IV ×3 (04:58→21:58)
[2023-11-25] MEDS: Pantoprazole Sodium 40 MG Tablet PO (04:59)
[2023-11-25] MEDS: Sucralfate 1 GM Tablet PO ×2 (06:31→16:55)
[2023-11-25 06:51] LABS: Bedside Glucose 123 mg/dL (74-106)
[2023-11-25] MEDS: Albuterol 2.5 MG/3 ML VIAL.NEB. INHALATION (07:00)
[2023-11-25] MEDS: Budesonide Respules 0.5 MG/2 ML AMPUL.NEB. INHALATION ×2 (07:00→19:55)
--- NOTE | 2023-11-25 08:45 | RAD_ITS ---
STUDY: X-RAY CHEST REASON FOR EXAM: Male, 83 years old. Left upper lobe abscess. Follow-up. TECHNIQUE: Frontal and lateral views of the chest. COMPARISON: November 19, 2023 FINDINGS: Right PICC with tip projected over the mid-SVC. Stable hyperinflation. Bullous disease in the left lung unchanged. Air-fluid level compatible with abscess in the left upper lobe, unchanged from the prior study. Diffuse interstitial prominence in the right lung unaltered. There is no demonstrated pleural abnormality. Cardiomegaly unchanged. Normal mediastinum and gregorio. Normal visualized pulmonary arteries. Aortic tortuosity unchanged. Diffuse thoracic spondylosis and osteopenia, unaltered. Normal visualized ribs, clavicles, and shoulders. No abnormality of the visualized soft tissue structures of the upper abdomen. RAD/Chest PA and Lateral IMPRESSION: Stable chest with no acute or emergent finding. Electronically Signed: Ramón Rhodes MD at 12:42 EDT ,
[2023-11-25] MEDS: Cholecalciferol (VIT D3) 25 MCG TABLET (1,000 UNITS) PO (09:40)
[2023-11-25] MEDS: APIXABAN 5 MG TABLET PO ×2 (09:40→22:00)
[2023-11-25] MEDS: Senna/Docusate Sodium 1 Tablet PO ×2 (09:40→21:59)
[2023-11-25] MEDS: Empagliflozin 25 MG Tablet 12.5 MG PO (09:40)
[2023-11-25] MEDS: Finasteride 5 MG Tablet PO (09:40)
[2023-11-25] MEDS: DULoxetine Hcl 60 MG Capsule 120 MG PO (09:41)
[2023-11-25] MEDS: guaiFENesin 1,200 MG Tablet 1200 MG PO ×2 (09:41→22:00)
[2023-11-25] MEDS: Midodrine HCl 5 MG Tablet PO ×2 (09:41→18:39)
[2023-11-25] MEDS: Multivitamin (Healthy Eyes) Capsule 1 CAP PO (09:41)
[2023-11-25] MEDS: Nystatin Powder 15gm Bottle 1 APPLIC TOPICAL ×2 (09:41→22:00)
[2023-11-25] MEDS: Dofetilide 250 MCG Capsule PO ×2 (09:41→21:59)
[2023-11-25] MEDS: Lactobacillis Acidophilus 1 CAP PO ×2 (09:41→22:00)
[2023-11-25] MEDS: Menthol/Lanolin/Calamine/Znox 113 GM Tube 1 APPLIC TOPICAL ×2 (09:42→22:00)
--- NOTE | 2023-11-25 10:19 | CASEMGMT ---
Social Work IDT met with patient and dtr for care plan meeting. Discussed patient's progress in PT/OT/SN. Educated to [facility] insurance with NRD 12/03, EDC 12/06. Pt is on IV ATB through 12/31, with the goal to return home with at the end of the IV ATB. SW will continue to follow for DC planning. Peyton Simmons, SENIOR PRODUCTION MANAGER LOANS CONSULTANT
[2023-11-25] MEDS: Hydrocortisone 2.5% Crm 1 APPLIC TOPICAL ×2 (10:48→22:08)
[2023-11-25] MEDS: hydrOXYzine PAM 25 MG Capsule PO (10:52)
[2023-11-25] MEDS: Ipratropium/Albuterol Sulfate 3 ML AMPUL.NEB INHALATION ×2 (12:58→19:55)
[2023-11-25] MEDS: 0.9% Saline Lock 10 ML Syringe IV ×2 (13:43→22:02)
[2023-11-25] MEDS: Ezetimibe 10 MG Tablet PO (21:59)
[2023-11-25] MEDS: LORazepam 0.5 MG Tablet PO (22:00)
[2023-11-25] MEDS: Tamsulosin HCl 0.4 MG Capsule 0.8 MG PO (22:00)
[2023-11-25] MEDS: Atorvastatin Calcium 10 MG Tablet PO (22:00)
[2023-11-26] VITALS (9 sets, daily range): BP systolic 101–107; BP diastolic 53–67; PULSE 71–85; RESP 16–24; TEMP 36.3; O2SAT 94–100
[2023-11-26 06:23] LABS: Bedside Glucose 123 mg/dL (74-106)
[2023-11-26] MEDS: Piperacil/Tazobactam 3.375 GM in 0.9% Normal Saline (50mL MB+) 50 ML IV ×3 (06:25→22:05)
[2023-11-26] MEDS: Sucralfate 1 GM Tablet PO ×2 (06:29→17:04)
[2023-11-26] MEDS: Pantoprazole Sodium 40 MG Tablet PO (06:29)
[2023-11-26] MEDS: 0.9% Saline Lock 10 ML Syringe IV ×3 (06:29→22:05)
[2023-11-26] MEDS: Ipratropium/Albuterol Sulfate 3 ML AMPUL.NEB INHALATION ×3 (06:47→20:05)
[2023-11-26] MEDS: Budesonide Respules 0.5 MG/2 ML AMPUL.NEB. INHALATION (06:47)
[2023-11-26] MEDS: Multivitamin (Healthy Eyes) Capsule 1 CAP PO (10:02)
[2023-11-26] MEDS: guaiFENesin 1,200 MG Tablet 1200 MG PO ×2 (10:02→22:05)
[2023-11-26] MEDS: Cholecalciferol (VIT D3) 25 MCG TABLET (1,000 UNITS) PO (10:02)
[2023-11-26] MEDS: Metoprolol(XL)Succ 25 MG Tablet PO (10:02)
[2023-11-26] MEDS: Dofetilide 250 MCG Capsule PO ×2 (10:02→22:06)
[2023-11-26] MEDS: Empagliflozin 25 MG Tablet 12.5 MG PO (10:02)
[2023-11-26] MEDS: Senna/Docusate Sodium 1 Tablet PO ×2 (10:02→22:06)
[2023-11-26] MEDS: DULoxetine Hcl 60 MG Capsule 120 MG PO (10:02)
[2023-11-26] MEDS: Lactobacillis Acidophilus 1 CAP PO ×2 (10:02→22:06)
[2023-11-26] MEDS: APIXABAN 5 MG TABLET PO ×2 (10:02→22:06)
[2023-11-26] MEDS: Finasteride 5 MG Tablet PO (10:02)
[2023-11-26] MEDS: Nystatin Powder 15gm Bottle 1 APPLIC TOPICAL ×2 (10:03→22:06)
[2023-11-26] MEDS: Menthol/Lanolin/Calamine/Znox 113 GM Tube 1 APPLIC TOPICAL ×2 (10:03→22:07)
[2023-11-26] MEDS: FLU VACCINE **HIGH DOSE** TV 24-25 180 MCG/0.5 ML SYRINGE IM (10:06)
--- NOTE | 2023-11-26 12:13 | CASEMGMT ---
Social Work SW conducted BIMS () and PHQ-2 () completed for MDS assessment. Peyton Simmons MSW CORPORATE TRAVEL COORDINATOR
--- NOTE | 2023-11-26 15:42 | MDS.RN ---
MDS pain interview complete.
[2023-11-26] MEDS: LORazepam 0.5 MG Tablet PO (22:06)
[2023-11-26] MEDS: Tamsulosin HCl 0.4 MG Capsule 0.8 MG PO (22:06)
[2023-11-26] MEDS: Atorvastatin Calcium 10 MG Tablet PO (22:06)
[2023-11-26] MEDS: Ezetimibe 10 MG Tablet PO (22:06)
[2023-11-26] MEDS: Hydrocortisone 2.5% Crm 1 APPLIC TOPICAL (23:42)
[2023-11-27] MEDS: 0.9% Normal Saline (250mL Bag) 250 ML 15 ML IV (02:54)
[2023-11-27] MEDS: 0.9% Saline Lock 10 ML Syringe IV ×2 (05:29→20:21)
[2023-11-27] MEDS: Piperacil/Tazobactam 3.375 GM in 0.9% Normal Saline (50mL MB+) 50 ML IV ×3 (05:33→22:56)
[2023-11-27] MEDS: Pantoprazole Sodium 40 MG Tablet PO (06:12)
[2023-11-27] MEDS: Sucralfate 1 GM Tablet PO ×2 (06:12→16:47)
[2023-11-27 06:36] LABS: Bedside Glucose 125 mg/dL (74-106)
[2023-11-27] MEDS: Budesonide Respules 0.5 MG/2 ML AMPUL.NEB. INHALATION (07:32)
[2023-11-27] MEDS: Ipratropium/Albuterol Sulfate 3 ML AMPUL.NEB INHALATION ×2 (07:32→13:29)
[2023-11-27] MEDS: Multivitamin (Healthy Eyes) Capsule 1 CAP PO (09:30)
[2023-11-27] MEDS: Empagliflozin 25 MG Tablet 12.5 MG PO (09:31)
[2023-11-27] MEDS: guaiFENesin 1,200 MG Tablet 1200 MG PO ×2 (09:31→22:12)
[2023-11-27] MEDS: Nystatin Powder 15gm Bottle 1 APPLIC TOPICAL ×2 (09:32→22:12)
[2023-11-27] MEDS: Finasteride 5 MG Tablet PO (09:33)
[2023-11-27] MEDS: DULoxetine Hcl 60 MG Capsule 120 MG PO (09:33)
[2023-11-27] MEDS: Senna/Docusate Sodium 1 Tablet PO ×2 (09:33→22:13)
[2023-11-27] MEDS: Lactobacillis Acidophilus 1 CAP PO ×2 (09:33→22:11)
[2023-11-27] MEDS: Cholecalciferol (VIT D3) 25 MCG TABLET (1,000 UNITS) PO (09:33)
[2023-11-27] MEDS: APIXABAN 5 MG TABLET PO ×2 (09:33→22:11)
[2023-11-27] MEDS: Menthol/Lanolin/Calamine/Znox 113 GM Tube 1 APPLIC TOPICAL ×2 (09:34→22:10)
[2023-11-27] MEDS: Bumetanide 0.5 MG Tablet 1 MG PO (09:34)
[2023-11-27] MEDS: Midodrine HCl 5 MG Tablet PO ×3 (09:39→18:47)
[2023-11-27 09:40] VITALS: BP 90/59; PULSE 75
[2023-11-27] MEDS: Dofetilide 250 MCG Capsule PO ×2 (10:21→22:16)
[2023-11-27 10:44] VITALS: BP 100/61; PULSE 74; RESP 16; TEMP 36.7; O2SAT 97
[2023-11-27 13:27] VITALS: O2SAT 97
[2023-11-27 13:28] VITALS: RESP 16
[2023-11-27 16:50] VITALS: BP 99/64
[2023-11-27] MEDS: LORazepam 0.5 MG Tablet PO (22:09)
[2023-11-27] MEDS: Tamsulosin HCl 0.4 MG Capsule 0.8 MG PO (22:12)
[2023-11-27] MEDS: Atorvastatin Calcium 10 MG Tablet PO (22:12)
[2023-11-27] MEDS: Ezetimibe 10 MG Tablet PO (22:15)
[2023-11-27] MEDS: Hydrocortisone 2.5% Crm 1 APPLIC TOPICAL (23:14)
[2023-11-28] VITALS (8 sets, daily range): BP systolic 92–93; BP diastolic 51–56; PULSE 65–89; RESP 16–20; TEMP 36.6; O2SAT 92–97
[2023-11-28] MEDS: 0.9% Saline Lock 10 ML Syringe IV ×2 (05:18→21:42)
[2023-11-28] MEDS: Piperacil/Tazobactam 3.375 GM in 0.9% Normal Saline (50mL MB+) 50 ML IV ×3 (05:18→21:41)
[2023-11-28] MEDS: Sucralfate 1 GM Tablet PO ×2 (06:01→16:24)
[2023-11-28] MEDS: Pantoprazole Sodium 40 MG Tablet PO (06:01)
[2023-11-28 06:44] LABS: Bedside Glucose 107 mg/dL (74-106)
[2023-11-28 06:54] LABS: Absolute Neutrophil Count 6.9 X10^3/uL (2.0-7.7); Basophil# 0.13 X10^3/uL; Basophil% 1.3 % (0-1); Eosinophils% 7.7 % (0-5); Hematocrit 35.3 % (40-54); Hemoglobin 11.1 g/dL (13.0-16.5); Lymphocyte % 12.5 % (19-41); Mean Corp Hgb Conc 31.4 g/dL (32-36); Mean Corpuscular Hgb 30.6 pg (27.0-32.0); Mean Corpuscular Volume 97.2 fL (80-94); Mean Platelet Vol. 9.2 fl (6.2-12.0); Monocyte# 1.04 X10^3/uL; NRBC Flagged by Analyzer 0 % (0-5); Neutrophil # 6.89 X10^3/uL (2.7-7.7); Neutrophil % 66.2 % (47-70); Platelet Count 231 K/mm3 (150-450); RBC Distribution Width SD 53.5 fl (35.1-43.9); Red Blood Count 3.63 M/mm3 (4.6-6.2); White Blood Count 10.4 K/mm3 (4.4-11.0)
[2023-11-28] MEDS: Budesonide Respules 0.5 MG/2 ML AMPUL.NEB. INHALATION ×2 (07:15→20:05)
[2023-11-28] MEDS: Ipratropium/Albuterol Sulfate 3 ML AMPUL.NEB INHALATION ×3 (07:15→20:05)
[2023-11-28 07:17] LABS: Anion Gap 4 (5-15); BUN 15 mg/dL (7-18); BUN/Creat Ratio 15.1 RATIO (10-20); Chloride 104 mmol/L (98-107); Creatinine, Serum 0.99 mg/dL (0.70-1.30); EST Glomerular Filtration Rate 76 mL/min (>60); Est Glom Filt Rate - Afr Amer 92 mL/min (>60); Estimated Creatinine Clearance 52.78 ml/min; Glucose 116 mg/dL (74-106); Potassium 3.9 mmol/L (3.5-5.1); Sodium Level 138 mmol/L (136-145)
[2023-11-28] MEDS: Lactobacillis Acidophilus 1 CAP PO ×2 (09:43→21:42)
[2023-11-28] MEDS: Menthol/Lanolin/Calamine/Znox 113 GM Tube 1 APPLIC TOPICAL ×2 (09:43→21:43)
[2023-11-28] MEDS: Multivitamin (Healthy Eyes) Capsule 1 CAP PO (09:44)
[2023-11-28] MEDS: APIXABAN 5 MG TABLET PO ×2 (09:44→21:42)
[2023-11-28] MEDS: Metoprolol(XL)Succ 25 MG Tablet PO (09:44)
[2023-11-28] MEDS: Senna/Docusate Sodium 1 Tablet PO ×2 (09:44→21:42)
[2023-11-28] MEDS: DULoxetine Hcl 60 MG Capsule 120 MG PO (09:44)
[2023-11-28] MEDS: Cholecalciferol (VIT D3) 25 MCG TABLET (1,000 UNITS) PO (09:44)
[2023-11-28] MEDS: Midodrine HCl 5 MG Tablet PO ×2 (09:44→18:08)
[2023-11-28] MEDS: Nystatin Powder 15gm Bottle 1 APPLIC TOPICAL ×2 (09:44→21:42)
[2023-11-28] MEDS: Empagliflozin 25 MG Tablet 12.5 MG PO (09:44)
[2023-11-28] MEDS: guaiFENesin 1,200 MG Tablet 1200 MG PO ×2 (09:44→21:42)
[2023-11-28] MEDS: Finasteride 5 MG Tablet PO (09:44)
[2023-11-28] MEDS: Dofetilide 250 MCG Capsule PO ×2 (10:27→21:42)
[2023-11-28] MEDS: Tamsulosin HCl 0.4 MG Capsule 0.8 MG PO (21:42)
[2023-11-28] MEDS: Atorvastatin Calcium 10 MG Tablet PO (21:42)
[2023-11-28] MEDS: LORazepam 0.5 MG Tablet PO (21:42)
[2023-11-28] MEDS: Ezetimibe 10 MG Tablet PO (21:42)
[2023-11-29] VITALS (8 sets, daily range): BP systolic 104; BP diastolic 59; PULSE 68–76; RESP 14–24; TEMP 36.7; O2SAT 91–98
[2023-11-29 06:40] LABS: Bedside Glucose 110 mg/dL (74-106)
[2023-11-29] MEDS: Piperacil/Tazobactam 3.375 GM in 0.9% Normal Saline (50mL MB+) 50 ML IV ×3 (06:55→22:27)
[2023-11-29] MEDS: Sucralfate 1 GM Tablet PO ×2 (06:55→16:44)
[2023-11-29] MEDS: Pantoprazole Sodium 40 MG Tablet PO (06:56)
[2023-11-29] MEDS: 0.9% Saline Lock 10 ML Syringe IV (06:57)
[2023-11-29] MEDS: 0.9% Normal Saline (250mL Bag) 250 ML 15 ML IV ×2 (07:05→22:32)
[2023-11-29] MEDS: Budesonide Respules 0.5 MG/2 ML AMPUL.NEB. INHALATION ×2 (07:20→20:15)
[2023-11-29] MEDS: Ipratropium/Albuterol Sulfate 3 ML AMPUL.NEB INHALATION ×3 (07:20→20:15)
[2023-11-29] MEDS: Finasteride 5 MG Tablet PO (09:22)
[2023-11-29] MEDS: APIXABAN 5 MG TABLET PO ×2 (09:22→20:12)
[2023-11-29] MEDS: guaiFENesin 1,200 MG Tablet 1200 MG PO ×2 (09:23→20:12)
[2023-11-29] MEDS: DULoxetine Hcl 60 MG Capsule 120 MG PO (09:23)
[2023-11-29] MEDS: Lactobacillis Acidophilus 1 CAP PO ×2 (09:24→20:11)
[2023-11-29] MEDS: Multivitamin (Healthy Eyes) Capsule 1 CAP PO (09:25)
[2023-11-29] MEDS: Empagliflozin 25 MG Tablet 12.5 MG PO (09:25)
[2023-11-29] MEDS: Metoprolol(XL)Succ 25 MG Tablet PO (09:26)
[2023-11-29] MEDS: Senna/Docusate Sodium 1 Tablet PO ×2 (09:26→20:11)
[2023-11-29] MEDS: Cholecalciferol (VIT D3) 25 MCG TABLET (1,000 UNITS) PO (09:27)
[2023-11-29] MEDS: Tuberculin,Purif.prot.deriv. 50 TU/ML Vial 0.1 ML ID (10:47)
[2023-11-29] MEDS: Nystatin Powder 15gm Bottle 1 APPLIC TOPICAL ×2 (10:48→20:12)
[2023-11-29] MEDS: Dofetilide 250 MCG Capsule PO ×2 (10:49→22:11)
[2023-11-29] MEDS: Midodrine HCl 5 MG Tablet PO ×3 (10:49→18:02)
[2023-11-29] MEDS: Menthol/Lanolin/Calamine/Znox 113 GM Tube 1 APPLIC TOPICAL ×2 (10:53→20:12)
--- NOTE | 2023-11-29 11:15 | NURSING ---
Pt was initially on 4L NC this am ans O2 @ 97%. Decreased to 3 L and rechecked. Recheck O2 & 96% 1 hr later O2 still consistantly mid upper 90s and turned down to 2 L. Recheck mid 95%
[2023-11-29] MEDS: Acetaminophen 500 MG Tablet 1000 MG PO (13:24)
[2023-11-29] MEDS: Methocarbamol 750 MG Tablet PO (16:44)
[2023-11-29] MEDS: Tamsulosin HCl 0.4 MG Capsule 0.8 MG PO (20:11)
[2023-11-29] MEDS: Atorvastatin Calcium 10 MG Tablet PO (20:11)
[2023-11-29] MEDS: Ezetimibe 10 MG Tablet PO (20:12)
[2023-11-29] MEDS: LORazepam 0.5 MG Tablet PO (22:10)
[2023-11-29] MEDS: Hydrocortisone 2.5% Crm 1 APPLIC TOPICAL (22:12)
[2023-11-30] VITALS (9 sets, daily range): BP systolic 89–109; BP diastolic 57–64; PULSE 70–78; RESP 16–18; TEMP 36.4; O2SAT 90–94
[2023-11-30] MEDS: 0.9% Saline Lock 10 ML Syringe IV ×3 (06:29→21:49)
[2023-11-30] MEDS: Piperacil/Tazobactam 3.375 GM in 0.9% Normal Saline (50mL MB+) 50 ML IV ×3 (06:37→21:50)
[2023-11-30] MEDS: 0.9% Normal Saline (250mL Bag) 250 ML 15 ML IV (06:38)
[2023-11-30] MEDS: Sucralfate 1 GM Tablet PO ×2 (06:39→16:30)
[2023-11-30] MEDS: Pantoprazole Sodium 40 MG Tablet PO (06:39)
[2023-11-30] MEDS: Budesonide Respules 0.5 MG/2 ML AMPUL.NEB. INHALATION ×2 (07:09→20:40)
[2023-11-30] MEDS: Ipratropium/Albuterol Sulfate 3 ML AMPUL.NEB INHALATION ×3 (07:09→20:40)
[2023-11-30 07:22] LABS: Bedside Glucose 104 mg/dL (74-106)
--- NOTE | 2023-11-30 07:31 | NURSING ---
Red lumen of double lumen TIM PICC does not flush. Arm raised x2, resident turned head and coughed, and end cap changed all without success. Unable to instill Heparin. Insertion site pink. Dressing changed 11/28. Will report to oncoming nurse.
--- NOTE | 2023-11-30 09:28 | NURSING ---
Electricity Trading Analyst Note; MDS for 11/28/2023 Complete
[2023-11-30] MEDS: guaiFENesin 1,200 MG Tablet 1200 MG PO ×2 (09:37→21:42)
[2023-11-30] MEDS: Empagliflozin 25 MG Tablet 12.5 MG PO (09:37)
[2023-11-30] MEDS: Metoprolol(XL)Succ 25 MG Tablet PO (09:37)
[2023-11-30] MEDS: Finasteride 5 MG Tablet PO (09:37)
[2023-11-30] MEDS: APIXABAN 5 MG TABLET PO ×2 (09:38→21:41)
[2023-11-30] MEDS: Bumetanide 0.5 MG Tablet 1 MG PO (09:38)
[2023-11-30] MEDS: Multivitamin (Healthy Eyes) Capsule 1 CAP PO (09:38)
[2023-11-30] MEDS: DULoxetine Hcl 60 MG Capsule 120 MG PO (09:38)
[2023-11-30] MEDS: Senna/Docusate Sodium 1 Tablet PO ×2 (09:38→21:42)
[2023-11-30] MEDS: Lactobacillis Acidophilus 1 CAP PO ×2 (09:39→21:41)
[2023-11-30] MEDS: Dofetilide 250 MCG Capsule PO ×2 (09:39→23:18)
[2023-11-30] MEDS: Cholecalciferol (VIT D3) 25 MCG TABLET (1,000 UNITS) PO (09:39)
[2023-11-30] MEDS: Menthol/Lanolin/Calamine/Znox 113 GM Tube 1 APPLIC TOPICAL ×2 (09:40→21:41)
[2023-11-30] MEDS: Nystatin Powder 15gm Bottle 1 APPLIC TOPICAL ×2 (09:40→21:42)
[2023-11-30] MEDS: Midodrine HCl 5 MG Tablet PO ×2 (13:52→17:46)
[2023-11-30] MEDS: Hydrocortisone 2.5% Crm 1 APPLIC TOPICAL ×2 (14:07→23:20)
[2023-11-30] MEDS: Tamsulosin HCl 0.4 MG Capsule 0.8 MG PO (21:41)
[2023-11-30] MEDS: Atorvastatin Calcium 10 MG Tablet PO (21:42)
[2023-11-30] MEDS: Ezetimibe 10 MG Tablet PO (21:42)
[2023-11-30] MEDS: LORazepam 0.5 MG Tablet PO (21:49)
[2023-12-01] VITALS (10 sets, daily range): BP systolic 99–102; BP diastolic 56–66; PULSE 71–86; RESP 14–20; TEMP 36.4; O2SAT 94–97; BMI 24.7
[2023-12-01] MEDS: 0.9% Saline Lock 10 ML Syringe IV ×3 (02:05→13:51)
[2023-12-01] MEDS: Piperacil/Tazobactam 3.375 GM in 0.9% Normal Saline (50mL MB+) 50 ML IV ×3 (06:20→22:16)
[2023-12-01] MEDS: Pantoprazole Sodium 40 MG Tablet PO (06:21)
[2023-12-01] MEDS: Sucralfate 1 GM Tablet PO ×2 (06:27→16:45)
[2023-12-01] MEDS: Ipratropium/Albuterol Sulfate 3 ML AMPUL.NEB INHALATION ×3 (06:50→19:05)
[2023-12-01] MEDS: Budesonide Respules 0.5 MG/2 ML AMPUL.NEB. INHALATION ×2 (06:50→19:05)
[2023-12-01 07:13] LABS: Bedside Glucose 95 mg/dL (74-106)
[2023-12-01] MEDS: APIXABAN 5 MG TABLET PO ×2 (08:46→20:15)
[2023-12-01] MEDS: Lactobacillis Acidophilus 1 CAP PO ×2 (08:46→20:15)
[2023-12-01] MEDS: DULoxetine Hcl 60 MG Capsule 120 MG PO (08:46)
[2023-12-01] MEDS: Multivitamin (Healthy Eyes) Capsule 1 CAP PO (08:47)
[2023-12-01] MEDS: Empagliflozin 25 MG Tablet 12.5 MG PO (08:47)
[2023-12-01] MEDS: Metoprolol(XL)Succ 25 MG Tablet PO (08:48)
[2023-12-01] MEDS: guaiFENesin 1,200 MG Tablet 1200 MG PO ×2 (08:48→20:15)
[2023-12-01] MEDS: Senna/Docusate Sodium 1 Tablet PO ×2 (08:48→20:15)
[2023-12-01] MEDS: Finasteride 5 MG Tablet PO (08:48)
[2023-12-01] MEDS: Cholecalciferol (VIT D3) 25 MCG TABLET (1,000 UNITS) PO (08:48)
[2023-12-01] MEDS: Dofetilide 250 MCG Capsule PO ×2 (08:49→22:16)
[2023-12-01] MEDS: Nystatin Powder 15gm Bottle 1 APPLIC TOPICAL ×2 (08:50→20:15)
[2023-12-01] MEDS: Menthol/Lanolin/Calamine/Znox 113 GM Tube 1 APPLIC TOPICAL ×2 (08:51→20:15)
--- NOTE | 2023-12-01 11:00 | CPS ---
Vest Therapy was ordered by Dr Donald. I let patient and RN know that the vest is a contraindicated with a lung abscess, can cause abscess to spread to other parts of the lung. RN called pt's daughter who said to not do the therapy, pt said the same thing. RT encouraged hydration and increased use of PEP for secretion mobilization.
--- NOTE | 2023-12-01 11:07 | NURSING ---
chest vest reordered per pt and family request, but Resp Therapy here and explained that vest is contraindicated with lung abscess. Lala, daughter notified & explained what RT is stating the risk of spreading infection from abscess to other systems of body. Daughter & pt are ok with not using vest, do not want any harm. so vest cancelled.
[2023-12-01] MEDS: Midodrine HCl 5 MG Tablet PO (13:52)
[2023-12-01] MEDS: COVID VAC 24-25 (12UP)(MODERNA)/PF 50 MCG/0.5 ML SYRINGE IM (16:48)
[2023-12-01] MEDS: Atorvastatin Calcium 10 MG Tablet PO (20:15)
[2023-12-01] MEDS: Tamsulosin HCl 0.4 MG Capsule 0.8 MG PO (20:15)
[2023-12-01] MEDS: Ezetimibe 10 MG Tablet PO (20:15)
[2023-12-01] MEDS: Hydrocortisone 2.5% Crm 1 APPLIC TOPICAL (20:16)
[2023-12-01] MEDS: LORazepam 0.5 MG Tablet PO (22:16)
[2023-12-01] MEDS: 0.9% Normal Saline (250mL Bag) 250 ML 12.5 ML IV (22:16)
[2023-12-02] VITALS (8 sets, daily range): BP systolic 96–110; BP diastolic 60–68; PULSE 70–84; RESP 16–18; TEMP 36.6; O2SAT 93; BMI 24.9
[2023-12-02] MEDS: 0.9% Saline Lock 10 ML Syringe IV ×2 (05:22→22:37)
[2023-12-02] MEDS: Piperacil/Tazobactam 3.375 GM in 0.9% Normal Saline (50mL MB+) 50 ML IV ×3 (05:27→22:37)
[2023-12-02] MEDS: Pantoprazole Sodium 40 MG Tablet PO (06:16)
[2023-12-02] MEDS: Sucralfate 1 GM Tablet PO ×2 (06:17→16:47)
[2023-12-02 06:39] LABS: Bedside Glucose 113 mg/dL (74-106)
[2023-12-02] MEDS: Budesonide Respules 0.5 MG/2 ML AMPUL.NEB. INHALATION ×2 (07:35→21:15)
[2023-12-02] MEDS: Ipratropium/Albuterol Sulfate 3 ML AMPUL.NEB INHALATION ×3 (07:35→21:15)
--- NOTE | 2023-12-02 08:00 | RAD_ITS ---
STUDY: X-RAY CHEST REASON FOR EXAM: Male, 83 years old. ITALO abscess. TECHNIQUE: PA and lateral views of the chest. COMPARISON: Comparison is made with prior study dated November 25, 2023. FINDINGS: A right-sided PICC line catheter seen with the tip in the right atrium. Stable 4.2 cm x 3.9 cm air-fluid density in the left upper lobe. This is unchanged. Stable persistent scarring at the lung bases more prominent in the left lung. Normal size heart. Normal mediastinum and gregorio. Normal visualized pulmonary arteries. There is atherosclerotic calcification of the aortic arch with tortuosity. There are diffuse degenerative changes of the visualized thoracic spine. Normal visualized ribs, clavicles, and shoulders. There is no demonstrated abnormality of the visualized soft tissue structures of the upper abdomen. RAD/Chest PA and Lateral IMPRESSION: Stable examination. Electronically Signed: Chris Ventura MD at 12:26 EDT ,
[2023-12-02] MEDS: Lactobacillis Acidophilus 1 CAP PO ×2 (11:15→20:31)
[2023-12-02] MEDS: Empagliflozin 25 MG Tablet 12.5 MG PO (11:15)
[2023-12-02] MEDS: guaiFENesin 1,200 MG Tablet 1200 MG PO ×2 (11:15→20:33)
[2023-12-02] MEDS: APIXABAN 5 MG TABLET PO ×2 (11:15→20:32)
[2023-12-02] MEDS: Multivitamin (Healthy Eyes) Capsule 1 CAP PO (11:15)
[2023-12-02] MEDS: DULoxetine Hcl 60 MG Capsule 120 MG PO (11:16)
[2023-12-02] MEDS: Finasteride 5 MG Tablet PO (11:16)
[2023-12-02] MEDS: Menthol/Lanolin/Calamine/Znox 113 GM Tube 1 APPLIC TOPICAL ×2 (11:17→20:43)
[2023-12-02] MEDS: Senna/Docusate Sodium 1 Tablet PO ×2 (11:17→20:33)
[2023-12-02] MEDS: Cholecalciferol (VIT D3) 25 MCG TABLET (1,000 UNITS) PO (11:18)
[2023-12-02] MEDS: Dofetilide 250 MCG Capsule PO ×2 (11:21→22:35)
[2023-12-02] MEDS: Metoprolol(XL)Succ 25 MG Tablet PO (11:21)
[2023-12-02] MEDS: Midodrine HCl 5 MG Tablet PO ×2 (13:47→18:10)
[2023-12-02] MEDS: LORazepam 0.5 MG Tablet PO (20:31)
[2023-12-02] MEDS: Tamsulosin HCl 0.4 MG Capsule 0.8 MG PO (20:32)
[2023-12-02] MEDS: Atorvastatin Calcium 10 MG Tablet PO (20:33)
[2023-12-02] MEDS: Hydrocortisone 2.5% Crm 1 APPLIC TOPICAL (20:34)
[2023-12-02] MEDS: Ezetimibe 10 MG Tablet PO (20:34)
[2023-12-02] MEDS: Nystatin Powder 15gm Bottle 1 APPLIC TOPICAL (20:43)
[2023-12-02] MEDS: 0.9% Normal Saline (250mL Bag) 250 ML 12.5 ML IV (22:37)
[2023-12-03] MEDS: 0.9% Saline Lock 10 ML Syringe IV ×2 (05:12→10:21)
[2023-12-03 05:18] VITALS: BMI 24.8
[2023-12-03] MEDS: Piperacil/Tazobactam 3.375 GM in 0.9% Normal Saline (50mL MB+) 50 ML IV ×3 (05:18→21:20)
[2023-12-03] MEDS: Pantoprazole Sodium 40 MG Tablet PO (06:10)
[2023-12-03] MEDS: Sucralfate 1 GM Tablet PO ×2 (06:11→17:28)
[2023-12-03 06:23] LABS: Bedside Glucose 107 mg/dL (74-106)
--- NOTE | 2023-12-03 09:45 | MDS.RN ---
Information for the MDS was obtained from review of the clinical record, interview of resident, staff, and direct observation of resident?s care.
[2023-12-03] MEDS: Acetaminophen 500 MG Tablet 1000 MG PO ×2 (10:17→21:24)
[2023-12-03] MEDS: Cholecalciferol (VIT D3) 25 MCG TABLET (1,000 UNITS) PO (10:18)
[2023-12-03] MEDS: DULoxetine Hcl 60 MG Capsule 120 MG PO (10:18)
[2023-12-03] MEDS: Methocarbamol 750 MG Tablet PO (10:18)
[2023-12-03] MEDS: Senna/Docusate Sodium 1 Tablet PO ×2 (10:18→21:16)
[2023-12-03] MEDS: guaiFENesin 1,200 MG Tablet 1200 MG PO ×2 (10:19→21:16)
[2023-12-03] MEDS: Empagliflozin 25 MG Tablet 12.5 MG PO (10:19)
[2023-12-03] MEDS: APIXABAN 5 MG TABLET PO ×2 (10:19→21:16)
[2023-12-03 10:20] VITALS: BP 95/53; PULSE 82
[2023-12-03] MEDS: Midodrine HCl 5 MG Tablet PO ×2 (10:20→17:32)
[2023-12-03] MEDS: Multivitamin (Healthy Eyes) Capsule 1 CAP PO (10:20)
[2023-12-03] MEDS: Metoprolol(XL)Succ 25 MG Tablet PO (10:20)
[2023-12-03] MEDS: Nystatin Powder 15gm Bottle 1 APPLIC TOPICAL ×2 (10:20→21:16)
[2023-12-03] MEDS: Finasteride 5 MG Tablet PO (10:20)
[2023-12-03] MEDS: Lactobacillis Acidophilus 1 CAP PO ×2 (10:20→21:16)
[2023-12-03] MEDS: Menthol/Lanolin/Calamine/Znox 113 GM Tube 1 APPLIC TOPICAL ×2 (10:21→21:24)
[2023-12-03] MEDS: Dofetilide 250 MCG Capsule PO ×2 (10:21→21:16)
[2023-12-03] MEDS: Budesonide Respules 0.5 MG/2 ML AMPUL.NEB. INHALATION (13:35)
[2023-12-03] MEDS: Ipratropium/Albuterol Sulfate 3 ML AMPUL.NEB INHALATION (13:35)
[2023-12-03 13:36] VITALS: PULSE 76; RESP 19
[2023-12-03] MEDS: 0.9% Normal Saline (250mL Bag) 250 ML 15 ML IV (14:27)
[2023-12-03 17:30] VITALS: BP 94/68; PULSE 77
[2023-12-03 17:50] VITALS: O2SAT 97
[2023-12-03] MEDS: Ezetimibe 10 MG Tablet PO (21:16)
[2023-12-03] MEDS: Tamsulosin HCl 0.4 MG Capsule 0.8 MG PO (21:16)
[2023-12-03] MEDS: Atorvastatin Calcium 10 MG Tablet PO (21:17)
[2023-12-03] MEDS: Arthritis Pain Compound 60 CLICK TUBE TOPICAL (21:17)
[2023-12-03] MEDS: LORazepam 0.5 MG Tablet PO (21:20)
[2023-12-04] MEDS: 0.9% Saline Lock 10 ML Syringe IV ×3 (05:13→20:21)
[2023-12-04] MEDS: Piperacil/Tazobactam 3.375 GM in 0.9% Normal Saline (50mL MB+) 50 ML IV ×3 (05:19→22:43)
[2023-12-04] MEDS: Sucralfate 1 GM Tablet PO ×2 (06:07→17:41)
[2023-12-04] MEDS: Pantoprazole Sodium 40 MG Tablet PO (06:07)
[2023-12-04] MEDS: Arthritis Pain Compound 60 CLICK TUBE TOPICAL ×3 (06:08→22:29)
[2023-12-04 06:37] LABS: Bedside Glucose 106 mg/dL (74-106)
[2023-12-04] MEDS: Ipratropium/Albuterol Sulfate 3 ML AMPUL.NEB INHALATION ×2 (07:35→19:52)
[2023-12-04] MEDS: Budesonide Respules 0.5 MG/2 ML AMPUL.NEB. INHALATION ×2 (07:35→19:52)
[2023-12-04 07:40] VITALS: PULSE 71; RESP 18
[2023-12-04] MEDS: Multivitamin (Healthy Eyes) Capsule 1 CAP PO (09:19)
[2023-12-04] MEDS: Lactobacillis Acidophilus 1 CAP PO ×2 (09:19→22:29)
[2023-12-04] MEDS: DULoxetine Hcl 60 MG Capsule 120 MG PO (09:19)
[2023-12-04] MEDS: Empagliflozin 25 MG Tablet 12.5 MG PO (09:19)
[2023-12-04] MEDS: APIXABAN 5 MG TABLET PO ×2 (09:19→22:36)
[2023-12-04] MEDS: guaiFENesin 1,200 MG Tablet 1200 MG PO ×2 (09:20→22:37)
[2023-12-04] MEDS: Finasteride 5 MG Tablet PO (09:20)
[2023-12-04] MEDS: Senna/Docusate Sodium 1 Tablet PO ×2 (09:20→22:38)
[2023-12-04 09:22] VITALS: BP 102/63; PULSE 69
[2023-12-04] MEDS: Metoprolol(XL)Succ 25 MG Tablet PO (09:22)
[2023-12-04] MEDS: Cholecalciferol (VIT D3) 25 MCG TABLET (1,000 UNITS) PO (09:23)
[2023-12-04] MEDS: Nystatin Powder 15gm Bottle 1 APPLIC TOPICAL ×2 (09:26→22:38)
[2023-12-04] MEDS: Menthol/Lanolin/Calamine/Znox 113 GM Tube 1 APPLIC TOPICAL ×2 (09:27→22:31)
[2023-12-04] MEDS: Dofetilide 250 MCG Capsule PO ×2 (10:35→22:28)
[2023-12-04] MEDS: Midodrine HCl 5 MG Tablet PO (14:54)
[2023-12-04] MEDS: 0.9% Normal Saline (250mL Bag) 250 ML 12.5 ML IV (15:01)
[2023-12-04 16:00] VITALS: BP 102/63; PULSE 69; RESP 20; TEMP 36.4; O2SAT 94
[2023-12-04 19:52] VITALS: PULSE 69; RESP 20
[2023-12-04] MEDS: LORazepam 0.5 MG Tablet PO (22:35)
[2023-12-04] MEDS: Tamsulosin HCl 0.4 MG Capsule 0.8 MG PO (22:36)
[2023-12-04] MEDS: Atorvastatin Calcium 10 MG Tablet PO (22:37)
[2023-12-04] MEDS: Ezetimibe 10 MG Tablet PO (22:39)
--- NOTE | 2023-12-05 04:45 | NURSING ---
This nurse unable to assess functional abilities at this time d/t resident resting w/ eyes closed upon this nurses's arrival on the unit.
[2023-12-05] MEDS: Piperacil/Tazobactam 3.375 GM in 0.9% Normal Saline (50mL MB+) 50 ML IV ×3 (06:29→22:12)
[2023-12-05] MEDS: Sucralfate 1 GM Tablet PO ×2 (06:30→16:12)
[2023-12-05] MEDS: Pantoprazole Sodium 40 MG Tablet PO (06:31)
[2023-12-05] MEDS: 0.9% Saline Lock 10 ML Syringe IV ×3 (06:32→22:09)
[2023-12-05] MEDS: Arthritis Pain Compound 60 CLICK TUBE TOPICAL ×3 (06:32→22:21)
[2023-12-05 06:34] VITALS: BMI 25.0
[2023-12-05 06:44] LABS: Bedside Glucose 99 mg/dL (74-106)
[2023-12-05 07:10] LABS: Absolute Lymphocyte Count 1.22 X10^3/uL (0.83-4.51); Absolute Neutrophil Count 4.4 X10^3/uL (2.0-7.7); Basophil# 0.11 X10^3/uL; Basophil% 1.5 % (0-1); Eosinophils% 10.7 % (0-5); Hematocrit 38.2 % (40-54); Hemoglobin 11.9 g/dL (13.0-16.5); Lymphocyte # 1.22 X10^3/ul (0.83-4.51); Lymphocyte % 16.3 % (19-41); Mean Corp Hgb Conc 31.2 g/dL (32-36); Mean Corpuscular Hgb 30.5 pg (27.0-32.0); Mean Corpuscular Volume 97.9 fL (80-94); Mean Platelet Vol. 9.6 fl (6.2-12.0); Monocyte# 0.88 X10^3/uL; Monocyte% 11.8 % (0-10); NRBC Flagged by Analyzer 0 % (0-5); Neutrophil # 4.38 X10^3/uL (2.7-7.7); Neutrophil % 58.6 % (47-70); Platelet Count 213 K/mm3 (150-450); RBC Distribution Width CV 15.3 % (11.6-14.6); RBC Distribution Width SD 55.2 fl (35.1-43.9); White Blood Count 7.5 K/mm3 (4.4-11.0)
[2023-12-05] MEDS: Ipratropium/Albuterol Sulfate 3 ML AMPUL.NEB INHALATION ×3 (07:12→19:40)
[2023-12-05] MEDS: Budesonide Respules 0.5 MG/2 ML AMPUL.NEB. INHALATION ×2 (07:12→19:40)
[2023-12-05 07:13] VITALS: PULSE 67; RESP 18
[2023-12-05 07:39] LABS: Anion Gap 6 (5-15); BUN 16 mg/dL (7-18); BUN/Creat Ratio 15.7 RATIO (10-20); Chloride 107 mmol/L (98-107); Creatinine, Serum 1.02 mg/dL (0.70-1.30); EST Glomerular Filtration Rate 74 mL/min (>60); Est Glom Filt Rate - Afr Amer 89 mL/min (>60); Estimated Creatinine Clearance 51.23 ml/min; Glucose 96 mg/dL (74-106); Potassium 4.4 mmol/L (3.5-5.1); Sodium Level 138 mmol/L (136-145)
[2023-12-05] MEDS: Lactobacillis Acidophilus 1 CAP PO ×2 (10:31→22:20)
[2023-12-05] MEDS: Finasteride 5 MG Tablet PO (10:31)
[2023-12-05] MEDS: DULoxetine Hcl 60 MG Capsule 120 MG PO (10:31)
[2023-12-05] MEDS: Empagliflozin 25 MG Tablet 12.5 MG PO (10:31)
[2023-12-05] MEDS: guaiFENesin 1,200 MG Tablet 1200 MG PO ×2 (10:31→22:19)
[2023-12-05] MEDS: APIXABAN 5 MG TABLET PO ×2 (10:31→22:21)
[2023-12-05] MEDS: Senna/Docusate Sodium 1 Tablet PO ×2 (10:31→22:22)
[2023-12-05] MEDS: Multivitamin (Healthy Eyes) Capsule 1 CAP PO (10:31)
[2023-12-05 10:32] VITALS: PULSE 72
[2023-12-05] MEDS: Metoprolol(XL)Succ 25 MG Tablet PO (10:32)
[2023-12-05] MEDS: Dofetilide 250 MCG Capsule PO (10:32)
[2023-12-05] MEDS: Cholecalciferol (VIT D3) 25 MCG TABLET (1,000 UNITS) PO (10:32)
[2023-12-05] MEDS: Menthol/Lanolin/Calamine/Znox 113 GM Tube 1 APPLIC TOPICAL ×2 (10:33→22:21)
[2023-12-05] MEDS: Nystatin Powder 15gm Bottle 1 APPLIC TOPICAL ×2 (10:34→22:21)
[2023-12-05 13:30] VITALS: PULSE 74; RESP 18
[2023-12-05 15:28] VITALS: BP 121/67; PULSE 72; RESP 18; TEMP 36.4; O2SAT 99
[2023-12-05] MEDS: Midodrine HCl 5 MG Tablet PO (18:02)
[2023-12-05 19:40] VITALS: PULSE 72; RESP 18; O2SAT 96
[2023-12-05] MEDS: LORazepam 0.5 MG Tablet PO (22:19)
[2023-12-05] MEDS: Tamsulosin HCl 0.4 MG Capsule 0.8 MG PO (22:20)
[2023-12-05] MEDS: Hydrocortisone 2.5% Crm 1 APPLIC TOPICAL (22:23)
[2023-12-05] MEDS: Atorvastatin Calcium 10 MG Tablet PO (22:23)
[2023-12-05] MEDS: Ezetimibe 10 MG Tablet PO (22:23)
[2023-12-06] VITALS (9 sets, daily range): BP systolic 97–115; BP diastolic 58–71; PULSE 71–80; RESP 16–18; TEMP 36.5; O2SAT 94–98
[2023-12-06] MEDS: Alteplase 2 MG/2 ML Vial IV (04:15)
[2023-12-06] MEDS: Arthritis Pain Compound 60 CLICK TUBE TOPICAL ×3 (06:49→23:39)
[2023-12-06] MEDS: Pantoprazole Sodium 40 MG Tablet PO (06:50)
[2023-12-06] MEDS: 0.9% Saline Lock 10 ML Syringe IV ×4 (06:50→23:37)
[2023-12-06] MEDS: Sucralfate 1 GM Tablet PO ×2 (06:50→16:56)
[2023-12-06] MEDS: Piperacil/Tazobactam 3.375 GM in 0.9% Normal Saline (50mL MB+) 50 ML IV ×3 (06:52→23:38)
[2023-12-06] MEDS: Ipratropium/Albuterol Sulfate 3 ML AMPUL.NEB INHALATION ×3 (07:07→19:04)
[2023-12-06] MEDS: Budesonide Respules 0.5 MG/2 ML AMPUL.NEB. INHALATION ×2 (07:08→19:04)
[2023-12-06 07:10] LABS: Bedside Glucose 101 mg/dL (74-106)
[2023-12-06] MEDS: Lactobacillis Acidophilus 1 CAP PO ×2 (11:16→23:41)
[2023-12-06] MEDS: Menthol/Lanolin/Calamine/Znox 113 GM Tube 1 APPLIC TOPICAL ×2 (11:16→23:41)
[2023-12-06] MEDS: DULoxetine Hcl 60 MG Capsule 120 MG PO (11:16)
[2023-12-06] MEDS: APIXABAN 5 MG TABLET PO ×2 (11:16→23:40)
[2023-12-06] MEDS: Multivitamin (Healthy Eyes) Capsule 1 CAP PO (11:17)
[2023-12-06] MEDS: Empagliflozin 25 MG Tablet 12.5 MG PO (11:17)
[2023-12-06] MEDS: Finasteride 5 MG Tablet PO (11:18)
[2023-12-06] MEDS: Nystatin Powder 15gm Bottle 1 APPLIC TOPICAL ×2 (11:18→23:42)
[2023-12-06] MEDS: guaiFENesin 1,200 MG Tablet 1200 MG PO ×2 (11:18→23:41)
[2023-12-06] MEDS: Senna/Docusate Sodium 1 Tablet PO ×2 (11:18→23:39)
[2023-12-06] MEDS: Cholecalciferol (VIT D3) 25 MCG TABLET (1,000 UNITS) PO (11:19)
[2023-12-06] MEDS: Metoprolol(XL)Succ 25 MG Tablet PO (11:19)
[2023-12-06] MEDS: Midodrine HCl 5 MG Tablet PO ×2 (11:19→18:31)
[2023-12-06] MEDS: Dofetilide 250 MCG Capsule PO ×2 (11:20→23:39)
[2023-12-06] MEDS: 0.9% Normal Saline (250mL Bag) 250 ML 15 ML IV (15:10)
--- NOTE | 2023-12-06 21:59 | NURSING ---
Spoke w/ Dr. Shah via phone to update resident is requesting blood sugar checks be dc'ed as Jardiance was prescribed per his olive knocker. New order received and read back to dc accuchecks.
[2023-12-06] MEDS: Tamsulosin HCl 0.4 MG Capsule 0.8 MG PO (23:40)
[2023-12-06] MEDS: Ezetimibe 10 MG Tablet PO (23:40)
[2023-12-06] MEDS: Atorvastatin Calcium 10 MG Tablet PO (23:41)
[2023-12-06] MEDS: Hydrocortisone 2.5% Crm 1 APPLIC TOPICAL (23:43)
[2023-12-06] MEDS: LORazepam 0.5 MG Tablet PO (23:45)
[2023-12-07] VITALS (7 sets, daily range): BP systolic 101–106; BP diastolic 60–65; PULSE 67–81; RESP 18–22; TEMP 36.2; O2SAT 94–95; BMI 24.9
[2023-12-07] MEDS: Sucralfate 1 GM Tablet PO ×2 (06:36→16:25)
[2023-12-07] MEDS: Pantoprazole Sodium 40 MG Tablet PO (06:36)
[2023-12-07] MEDS: Arthritis Pain Compound 60 CLICK TUBE TOPICAL ×3 (06:36→22:32)
[2023-12-07] MEDS: 0.9% Saline Lock 10 ML Syringe IV ×2 (06:38→20:34)
[2023-12-07] MEDS: Piperacil/Tazobactam 3.375 GM in 0.9% Normal Saline (50mL MB+) 50 ML IV ×3 (06:40→23:35)
[2023-12-07] MEDS: Ipratropium/Albuterol Sulfate 3 ML AMPUL.NEB INHALATION ×3 (09:20→20:42)
[2023-12-07] MEDS: Lactobacillis Acidophilus 1 CAP PO ×2 (10:30→22:35)
[2023-12-07] MEDS: DULoxetine Hcl 60 MG Capsule 120 MG PO (10:30)
[2023-12-07] MEDS: Multivitamin (Healthy Eyes) Capsule 1 CAP PO (10:31)
[2023-12-07] MEDS: Senna/Docusate Sodium 1 Tablet PO ×2 (10:31→22:40)
[2023-12-07] MEDS: guaiFENesin 1,200 MG Tablet 1200 MG PO ×2 (10:31→22:37)
[2023-12-07] MEDS: Empagliflozin 25 MG Tablet 12.5 MG PO (10:31)
[2023-12-07] MEDS: Finasteride 5 MG Tablet PO (10:31)
[2023-12-07] MEDS: APIXABAN 5 MG TABLET PO ×2 (10:31→22:36)
[2023-12-07] MEDS: Cholecalciferol (VIT D3) 25 MCG TABLET (1,000 UNITS) PO (10:32)
[2023-12-07] MEDS: Metoprolol(XL)Succ 25 MG Tablet PO (10:32)
[2023-12-07] MEDS: Dofetilide 250 MCG Capsule PO ×2 (10:33→22:34)
[2023-12-07] MEDS: Nystatin Powder 15gm Bottle 1 APPLIC TOPICAL ×2 (10:37→22:37)
[2023-12-07] MEDS: Menthol/Lanolin/Calamine/Znox 113 GM Tube 1 APPLIC TOPICAL ×2 (10:37→22:35)
[2023-12-07] MEDS: 0.9% Normal Saline (250mL Bag) 250 ML 12.5 ML IV (15:29)
[2023-12-07] MEDS: Budesonide Respules 0.5 MG/2 ML AMPUL.NEB. INHALATION (20:42)
[2023-12-07] MEDS: Tamsulosin HCl 0.4 MG Capsule 0.8 MG PO (22:36)
[2023-12-07] MEDS: Atorvastatin Calcium 10 MG Tablet PO (22:37)
[2023-12-07] MEDS: Ezetimibe 10 MG Tablet PO (22:40)
[2023-12-07] MEDS: LORazepam 0.5 MG Tablet PO (22:43)
[2023-12-08] MEDS: 0.9% Saline Lock 10 ML Syringe IV ×2 (05:34→14:26)
[2023-12-08] MEDS: Piperacil/Tazobactam 3.375 GM in 0.9% Normal Saline (50mL MB+) 50 ML IV ×3 (05:37→22:07)
[2023-12-08 06:00] VITALS: BMI 25.0
[2023-12-08] MEDS: Sucralfate 1 GM Tablet PO ×2 (06:53→16:48)
[2023-12-08] MEDS: Arthritis Pain Compound 60 CLICK TUBE TOPICAL ×3 (06:53→22:15)
[2023-12-08] MEDS: Pantoprazole Sodium 40 MG Tablet PO (06:53)
[2023-12-08] MEDS: Budesonide Respules 0.5 MG/2 ML AMPUL.NEB. INHALATION (07:40)
[2023-12-08] MEDS: Ipratropium/Albuterol Sulfate 3 ML AMPUL.NEB INHALATION (07:40)
[2023-12-08 07:45] VITALS: PULSE 72; RESP 17
[2023-12-08] MEDS: APIXABAN 5 MG TABLET PO ×2 (09:06→22:06)
[2023-12-08] MEDS: Menthol/Lanolin/Calamine/Znox 113 GM Tube 1 APPLIC TOPICAL ×2 (09:06→22:16)
[2023-12-08] MEDS: Empagliflozin 25 MG Tablet 12.5 MG PO (09:06)
[2023-12-08] MEDS: Multivitamin (Healthy Eyes) Capsule 1 CAP PO (09:06)
[2023-12-08] MEDS: Lactobacillis Acidophilus 1 CAP PO ×2 (09:06→22:06)
[2023-12-08] MEDS: DULoxetine Hcl 60 MG Capsule 120 MG PO (09:06)
[2023-12-08] MEDS: Finasteride 5 MG Tablet PO (09:06)
[2023-12-08] MEDS: guaiFENesin 1,200 MG Tablet 1200 MG PO ×2 (09:06→22:06)
[2023-12-08 09:07] VITALS: PULSE 75
[2023-12-08] MEDS: Nystatin Powder 15gm Bottle 1 APPLIC TOPICAL ×2 (09:07→22:16)
[2023-12-08] MEDS: Cholecalciferol (VIT D3) 25 MCG TABLET (1,000 UNITS) PO (09:07)
[2023-12-08] MEDS: Metoprolol(XL)Succ 25 MG Tablet PO (09:07)
[2023-12-08] MEDS: Midodrine HCl 5 MG Tablet PO (09:07)
[2023-12-08] MEDS: Senna/Docusate Sodium 1 Tablet PO ×2 (09:07→22:06)
[2023-12-08] MEDS: Dofetilide 250 MCG Capsule PO ×2 (10:20→22:06)
--- NOTE | 2023-12-08 11:31 | NURSING ---
Left VM with Dr. Donald's office asking about resident getting bronchoscopy, requested return call.
--- NOTE | 2023-12-08 11:38 | PCM.PN.ID ---
Physical Exam Narrative Feeling ok, no dyspnea, no fever, no n/v/d, still some occasional sputum Const alert and no apparent distress General Appearance: cooperative Resp normal air movement and clear to auscultation bilaterally Cardio regular rate and regular rhythm GI soft to palpation, non-tender and non-distended Skin no rashes or lesions noted ID ID: Route of nutrition/ use of supplements: [] Nutritional Intake: [] IV Site: [] Carlson Catheter: [] Assessment & Plan Assessment/Plan (1) Abscess of upper lobe of left lung with pneumonia: PLAN: On zosyn for planned 4-6 week course, feeling a little better. If this does not resolve/improve, next steps would be bronch or transthoracic aspiration with gill-cxs and path/cytology. Will follow
[2023-12-08 13:22] VITALS: BP 94/60; PULSE 75; RESP 16; TEMP 36.4; O2SAT 98
--- NOTE | 2023-12-08 15:44 | CHAPLAIN ---
Type of Pastoral Visit _x__ Initial Visit ___ Follow-up Visit ___ On-call Visit ___ General Patient Visit ___ Spiritual Assessment ___ Family Conference ___ Bereavement ___ Rapid Response ___ Code Blue ___ Other (describe below) Pastoral Care Referral From _x__ Patient ___ Family ___ Nurse ___ Physician ___ Access Tech ___ Precision Filer Hand ___ Other (describe below) Sacrament/Intervention _x__ Active listening ___ Anointing ___ Jainism ___ Bereavement ___ Communion ___ Nannette exploration ___ ___ Life review _x__ Prayer ___ Reconciliation ___ Sacrament of Sick _x__ Supportive presence ___ Wedding ___ Other (describe below) Pastoral Comments patient and the patient's have 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
[2023-12-08] MEDS: Ezetimibe 10 MG Tablet PO (22:06)
[2023-12-08] MEDS: Atorvastatin Calcium 10 MG Tablet PO (22:06)
[2023-12-08] MEDS: Tamsulosin HCl 0.4 MG Capsule 0.8 MG PO (22:06)
[2023-12-08] MEDS: LORazepam 0.5 MG Tablet PO (22:06)
[2023-12-08] MEDS: Hydrocortisone 2.5% Crm 1 APPLIC TOPICAL (22:17)
[2023-12-09 06:00] VITALS: BMI 25.2
[2023-12-09] MEDS: Arthritis Pain Compound 60 CLICK TUBE TOPICAL ×3 (06:15→23:00)
[2023-12-09] MEDS: Pantoprazole Sodium 40 MG Tablet PO (06:15)
[2023-12-09 07:04] VITALS: PULSE 78; RESP 16; O2SAT 91
[2023-12-09] MEDS: Ipratropium/Albuterol Sulfate 3 ML AMPUL.NEB INHALATION ×3 (07:04→20:25)
[2023-12-09] MEDS: Budesonide Respules 0.5 MG/2 ML AMPUL.NEB. INHALATION ×2 (07:04→20:25)
[2023-12-09] MEDS: Piperacil/Tazobactam 3.375 GM in 0.9% Normal Saline (50mL MB+) 50 ML IV ×3 (07:34→22:58)
[2023-12-09] MEDS: guaiFENesin 1,200 MG Tablet 1200 MG PO ×2 (08:57→22:59)
[2023-12-09] MEDS: Empagliflozin 25 MG Tablet 12.5 MG PO (08:57)
[2023-12-09 08:58] VITALS: BP 109/65; PULSE 71
[2023-12-09] MEDS: DULoxetine Hcl 60 MG Capsule 120 MG PO (08:58)
[2023-12-09] MEDS: Metoprolol(XL)Succ 25 MG Tablet PO (08:58)
[2023-12-09] MEDS: Dofetilide 250 MCG Capsule PO ×2 (08:58→22:59)
[2023-12-09] MEDS: Multivitamin (Healthy Eyes) Capsule 1 CAP PO (08:58)
[2023-12-09] MEDS: Sucralfate 1 GM Tablet PO ×2 (08:58→16:43)
[2023-12-09] MEDS: APIXABAN 5 MG TABLET PO ×2 (08:58→22:59)
[2023-12-09] MEDS: Senna/Docusate Sodium 1 Tablet PO ×2 (08:58→22:59)
[2023-12-09] MEDS: Finasteride 5 MG Tablet PO (08:58)
[2023-12-09] MEDS: Cholecalciferol (VIT D3) 25 MCG TABLET (1,000 UNITS) PO (08:58)
[2023-12-09] MEDS: Lactobacillis Acidophilus 1 CAP PO ×2 (08:58→22:59)
[2023-12-09] MEDS: Nystatin Powder 15gm Bottle 1 APPLIC TOPICAL ×2 (08:59→23:00)
[2023-12-09] MEDS: Menthol/Lanolin/Calamine/Znox 113 GM Tube 1 APPLIC TOPICAL ×2 (08:59→23:00)
--- NOTE | 2023-12-09 10:30 | RAD_ITS ---
STUDY: X-RAY CHEST REASON FOR EXAM: Male, 83 years old. ITALO abscess. TECHNIQUE: PA and lateral views of the chest. COMPARISON: Including December 02, 2023 FINDINGS: PICC on the right extends to the superior vena cava. There is 5.0 x 4.1 cm left midlung cavitary lesion with partially layering fluid seen on the lateral projection. There are lower lung interstitial increased opacities. There is no demonstrated pleural abnormality. Normal size heart. Normal mediastinum and gregorio. Normal visualized pulmonary arteries. Normal visualized aortic arch and descending thoracic aorta. There is demineralization of the osseous structures. There is degenerative change of the spine. Normal visualized ribs, clavicles, and shoulders. There is no demonstrated abnormality of the visualized soft tissue structures of the upper abdomen. RAD/Chest PA and Lateral IMPRESSION: Left mid lung cavitary lesion similar to prior exams. Electronically Signed: Janes Harrell MD at 18:29 EDT ,
[2023-12-09 13:05] VITALS: PULSE 95; RESP 18
[2023-12-09 15:18] VITALS: BP 101/58; PULSE 74; RESP 16; TEMP 36.2; O2SAT 98
--- NOTE | 2023-12-09 16:40 | NURSING ---
Dr. Donald office called and talked with medical secretary receptionist who stated will give note to Dr. Donald. Awaiting return call.
[2023-12-09 18:06] VITALS: BP 117/64; PULSE 67
[2023-12-09] MEDS: 0.9% Saline Lock 10 ML Syringe IV ×2 (20:08→22:58)
[2023-12-09 20:25] VITALS: PULSE 66; RESP 20
[2023-12-09] MEDS: Ezetimibe 10 MG Tablet PO (22:59)
[2023-12-09] MEDS: Atorvastatin Calcium 10 MG Tablet PO (22:59)
[2023-12-09] MEDS: LORazepam 0.5 MG Tablet PO (22:59)
[2023-12-09] MEDS: Tamsulosin HCl 0.4 MG Capsule 0.8 MG PO (22:59)
[2023-12-10] MEDS: Pantoprazole Sodium 40 MG Tablet PO (05:39)
[2023-12-10] MEDS: Sucralfate 1 GM Tablet PO ×2 (05:39→16:14)
[2023-12-10] MEDS: Arthritis Pain Compound 60 CLICK TUBE TOPICAL ×3 (05:39→22:03)
[2023-12-10] MEDS: 0.9% Saline Lock 10 ML Syringe IV (05:40)
[2023-12-10] MEDS: Piperacil/Tazobactam 3.375 GM in 0.9% Normal Saline (50mL MB+) 50 ML IV ×3 (05:45→22:06)
[2023-12-10] MEDS: Ipratropium/Albuterol Sulfate 3 ML AMPUL.NEB INHALATION ×2 (07:10→19:15)
[2023-12-10 07:11] VITALS: PULSE 70; RESP 18
[2023-12-10] MEDS: Budesonide Respules 0.5 MG/2 ML AMPUL.NEB. INHALATION ×2 (07:11→19:15)
[2023-12-10] MEDS: DULoxetine Hcl 60 MG Capsule 120 MG PO (08:29)
[2023-12-10] MEDS: Empagliflozin 25 MG Tablet 12.5 MG PO (08:29)
[2023-12-10] MEDS: Multivitamin (Healthy Eyes) Capsule 1 CAP PO (08:29)
[2023-12-10] MEDS: Lactobacillis Acidophilus 1 CAP PO ×2 (08:29→22:03)
[2023-12-10] MEDS: APIXABAN 5 MG TABLET PO ×2 (08:29→22:04)
[2023-12-10 08:30] VITALS: PULSE 76
[2023-12-10] MEDS: Nystatin Powder 15gm Bottle 1 APPLIC TOPICAL ×2 (08:30→22:05)
[2023-12-10] MEDS: Senna/Docusate Sodium 1 Tablet PO ×2 (08:30→22:05)
[2023-12-10] MEDS: guaiFENesin 1,200 MG Tablet 1200 MG PO ×2 (08:30→22:05)
[2023-12-10] MEDS: Cholecalciferol (VIT D3) 25 MCG TABLET (1,000 UNITS) PO (08:30)
[2023-12-10] MEDS: Metoprolol(XL)Succ 25 MG Tablet PO (08:30)
[2023-12-10] MEDS: Finasteride 5 MG Tablet PO (08:30)
[2023-12-10] MEDS: Menthol/Lanolin/Calamine/Znox 113 GM Tube 1 APPLIC TOPICAL ×2 (08:30→22:04)
--- NOTE | 2023-12-10 12:13 | NURSING ---
Update from Dr. Shah that Dr. Donald reached out to him and plans to do bronchoscopy next week sometime.
[2023-12-10] MEDS: Dofetilide 250 MCG Capsule PO ×2 (12:17→22:06)
--- NOTE | 2023-12-10 13:38 | NURSING ---
Order for chest CT w/o contrast. Per insurance company no auth needed for this test.
[2023-12-10] MEDS: Midodrine HCl 5 MG Tablet PO (13:54)
[2023-12-10 14:33] VITALS: BP 103/60; PULSE 76; RESP 16; TEMP 36.5; O2SAT 96
[2023-12-10 19:15] VITALS: PULSE 70; RESP 18; O2SAT 97
[2023-12-10] MEDS: Tamsulosin HCl 0.4 MG Capsule 0.8 MG PO (22:04)
[2023-12-10] MEDS: Ezetimibe 10 MG Tablet PO (22:05)
[2023-12-10] MEDS: Atorvastatin Calcium 10 MG Tablet PO (22:06)
[2023-12-10] MEDS: LORazepam 0.5 MG Tablet PO (22:08)
--- NOTE | 2023-12-10 23:10 | CPS ---
Patient did not wish to use the chest vest at this time as he has visitors
[2023-12-11] MEDS: 0.9% Saline Lock 10 ML Syringe IV ×2 (05:09→21:02)
[2023-12-11] MEDS: Piperacil/Tazobactam 3.375 GM in 0.9% Normal Saline (50mL MB+) 50 ML IV ×3 (05:15→22:28)
[2023-12-11 05:38] VITALS: BMI 25.2
[2023-12-11] MEDS: Pantoprazole Sodium 40 MG Tablet PO (06:03)
[2023-12-11] MEDS: Arthritis Pain Compound 60 CLICK TUBE TOPICAL ×3 (06:04→22:32)
[2023-12-11] MEDS: Sucralfate 1 GM Tablet PO ×2 (06:04→17:08)
[2023-12-11] MEDS: Ipratropium/Albuterol Sulfate 3 ML AMPUL.NEB INHALATION ×2 (07:02→19:49)
[2023-12-11] MEDS: Budesonide Respules 0.5 MG/2 ML AMPUL.NEB. INHALATION ×2 (07:02→19:49)
[2023-12-11 07:03] VITALS: PULSE 70; RESP 18
[2023-12-11] MEDS: APIXABAN 5 MG TABLET PO ×2 (09:29→22:35)
[2023-12-11] MEDS: DULoxetine Hcl 60 MG Capsule 120 MG PO (09:29)
[2023-12-11] MEDS: Lactobacillis Acidophilus 1 CAP PO ×2 (09:29→22:34)
[2023-12-11] MEDS: Multivitamin (Healthy Eyes) Capsule 1 CAP PO (09:30)
[2023-12-11] MEDS: Empagliflozin 25 MG Tablet 12.5 MG PO (09:30)
[2023-12-11] MEDS: guaiFENesin 1,200 MG Tablet 1200 MG PO ×2 (09:31→22:33)
[2023-12-11] MEDS: Finasteride 5 MG Tablet PO (09:31)
[2023-12-11] MEDS: Senna/Docusate Sodium 1 Tablet PO ×2 (09:31→22:33)
[2023-12-11 09:32] VITALS: BP 101/54; PULSE 78
[2023-12-11] MEDS: Metoprolol(XL)Succ 25 MG Tablet PO (09:32)
[2023-12-11] MEDS: Cholecalciferol (VIT D3) 25 MCG TABLET (1,000 UNITS) PO (09:32)
[2023-12-11] MEDS: Dofetilide 250 MCG Capsule PO ×2 (09:32→22:36)
[2023-12-11] MEDS: Nystatin Powder 15gm Bottle 1 APPLIC TOPICAL ×2 (09:36→22:38)
[2023-12-11] MEDS: Menthol/Lanolin/Calamine/Znox 113 GM Tube 1 APPLIC TOPICAL ×2 (09:36→22:37)
[2023-12-11 16:00] VITALS: BP 101/54; PULSE 78; RESP 16; TEMP 36.9; O2SAT 93
[2023-12-11 18:22] VITALS: BP 116/70; PULSE 76
[2023-12-11 19:49] VITALS: PULSE 70; RESP 16
[2023-12-11 22:00] VITALS: PULSE 68; O2SAT 94
[2023-12-11] MEDS: Tamsulosin HCl 0.4 MG Capsule 0.8 MG PO (22:33)
[2023-12-11] MEDS: Atorvastatin Calcium 10 MG Tablet PO (22:34)
[2023-12-11] MEDS: LORazepam 0.5 MG Tablet PO (22:34)
[2023-12-11] MEDS: Ezetimibe 10 MG Tablet PO (22:35)
[2023-12-12] MEDS: 0.9% Saline Lock 10 ML Syringe IV ×2 (05:11→14:09)
[2023-12-12] MEDS: Piperacil/Tazobactam 3.375 GM in 0.9% Normal Saline (50mL MB+) 50 ML IV ×2 (05:14→14:06)
[2023-12-12 05:39] LABS: Absolute Lymphocyte Count 1.77 X10^3/uL (0.83-4.51); Absolute Neutrophil Count 5.8 X10^3/uL (2.0-7.7); Basophil# 0.13 X10^3/uL; Basophil% 1.4 % (0-1); Eosinophil# 0.75 X10^3/uL; Hematocrit 35.6 % (40-54); Hemoglobin 11.4 g/dL (13.0-16.5); Lymphocyte # 1.77 X10^3/ul (0.83-4.51); Lymphocyte % 18.8 % (19-41); Mean Corpuscular Volume 96.7 fL (80-94); Mean Platelet Vol. 9.3 fl (6.2-12.0); Monocyte# 0.88 X10^3/uL; Monocyte% 9.4 % (0-10); NRBC Flagged by Analyzer 0 % (0-5); Neutrophil # 5.77 X10^3/uL (2.7-7.7); Neutrophil % 61.3 % (47-70); Platelet Count 225 K/mm3 (150-450); RBC Distribution Width CV 15.1 % (11.6-14.6); Red Blood Count 3.68 M/mm3 (4.6-6.2); White Blood Count 9.4 K/mm3 (4.4-11.0)
[2023-12-12 05:53] LABS: Anion Gap 5 (5-15); BUN 13 mg/dL (7-18); BUN/Creat Ratio 12.3 RATIO (10-20); Calcium,Total 8.8 mg/dL (8.5-10.1); Chloride 108 mmol/L (98-107); Creatinine, Serum 1.06 mg/dL (0.70-1.30); EST Glomerular Filtration Rate 71 mL/min (>60); Est Glom Filt Rate - Afr Amer 85 mL/min (>60); Estimated Creatinine Clearance 49.29 ml/min; Glucose 99 mg/dL (74-106); Potassium 3.6 mmol/L (3.5-5.1); Sodium Level 139 mmol/L (136-145)
[2023-12-12 06:00] VITALS: BMI 25.0
[2023-12-12] MEDS: Pantoprazole Sodium 40 MG Tablet PO (06:20)
[2023-12-12] MEDS: Arthritis Pain Compound 60 CLICK TUBE TOPICAL ×2 (06:20→14:08)
[2023-12-12] MEDS: Sucralfate 1 GM Tablet PO (06:21)
[2023-12-12 06:43] LABS: Bedside Glucose 96 mg/dL (74-106)
[2023-12-12 07:48] VITALS: BP 150/75; PULSE 91; RESP 16; TEMP 20; O2SAT 92
[2023-12-12 08:06] VITALS: PULSE 71; RESP 16
[2023-12-12] MEDS: Ipratropium/Albuterol Sulfate 3 ML AMPUL.NEB INHALATION (08:06)
[2023-12-12] MEDS: Budesonide Respules 0.5 MG/2 ML AMPUL.NEB. INHALATION (08:06)
--- NOTE | 2023-12-12 08:06 | CPS ---
pt is feeling nauseous this morning, pt refused his vest therapy this morning
--- NOTE | 2023-12-12 08:11 | RAD_ITS ---
INDICATION: abdominal pain EXAMINATION/TECHNIQUE: X-RAY - XR Abdomen Series W/ Chest 1 View COMPARISON: Chest x-ray of 12/09/2023. FINDINGS: --Chest: LINES/DEVICES: Right-sided PICC line in stable position. LUNGS: Continued opacity/cavitary lesion in the left upper lobe. Atelectatic changes in the left lower MEDIASTINUM AND CARDIOVASCULAR STRUCTURES: Cardiac silhouette not enlarged. Central airways and mediastinal contour are unremarkable. BONES AND SOFT TISSUES: No acute findings. --Abdomen: BOWEL GAS PATTERN: Non-obstructive. No bowel or stomach distention. FREE AIR: None visualized. ORGANOMEGALY: Not seen. CALCIFICATIONS: No abnormal calcifications observed. BONES AND SOFT TISSUES: No acute findings. RAD/Acute Abdomen Inc Chest IMPRESSION: 1. Left upper lobe opacity unchanged 2. Nonobstructive gas pattern.. Electronically Signed: Zachery Bee MD at 9:38 EDT ,
--- NOTE | 2023-12-12 08:13 | NURSING ---
pt c/o abdominal pain starts at sides radiates to mid abdomen then up to epigastric area. afebrile, BP elevated. bladder scanned 120-134cc. c/o nausea. dr rodríguez notified, new order for acute abdome/chest xray.
--- NOTE | 2023-12-12 08:24 | NURSING ---
pt was receiving aerosal tx and began dry heaving, clear phlegm. refused tylenol. continues with pain, pt states I feel like someone is blowing me up pt rubbing abdomen & using hands to show up through gastric area. denies chest pain. HR regular. attempted to contact daughter Lala, but no answer. pt to xray via WC and emesis bag.
--- NOTE | 2023-12-12 10:30 | EKG12_ITS ---
Test Reason : ABDOMIN PAIN Blood Pressure : / mmHG Vent. Rate : 079 BPM Atrial Rate : 079 BPM P-R Int : 152 ms QRS Dur : 088 ms QT Int : 398 ms P-R-T Axes : 000 -47 049 degrees QTc Int : 456 ms Normal sinus rhythm Left axis deviation Abnormal ECG When compared with ECG of 11-NOV-2023 14:32, No significant change was found Confirmed by TOMÁS DEAN, DORINA ([id number]), society editor IVANNA NEWMAN ([id number]) on 12/15/2023 6:38:33 AM Referred By: JAMAL Confirmed By:DORINA ENGLAND MD
[2023-12-12] MEDS: Bisacodyl 10 MG Suppository RC (10:35)
[2023-12-12 10:37] VITALS: BP 145/79; PULSE 76; RESP 18; TEMP 35.7; O2SAT 93
[2023-12-12 10:41] VITALS: PULSE 76
[2023-12-12] MEDS: Dofetilide 250 MCG Capsule PO (10:41)
[2023-12-12] MEDS: Metoprolol(XL)Succ 25 MG Tablet PO (10:41)
[2023-12-12] MEDS: APIXABAN 5 MG TABLET PO (10:42)
[2023-12-12] MEDS: oxyCODONE 5 MG Tablet PO (11:50)
[2023-12-12] MEDS: Magnesium Citrate 300 ML PO (11:51)
[2023-12-12] MEDS: Menthol/Lanolin/Calamine/Znox 113 GM Tube 1 APPLIC TOPICAL (11:52)
[2023-12-12] MEDS: Nystatin Powder 15gm Bottle 1 APPLIC TOPICAL (11:53)
[2023-12-12 12:00] VITALS: PULSE 76; RESP 16; O2SAT 93
--- NOTE | 2023-12-12 13:29 | PCM.PROGNOTE ---
Subjective Subjective I was asked by nursing to see this patient complaining of severe abdominal pain. He is afebrile. White blood cell count today is normal and the differential is unremarkable. His abdomen is distended and tympanic. He is having some nausea and some reflux/heartburn. He had a bowel movement on 12/11/2023 but the last bowel movement recorded prior to this was on 12/06/2023 and the last bowel movement prior to that was listed as 11/29/2023. He refused breakfast this morning but has been eating 75 to 100% of his meals. Denies SOB, palpitations, chest tightness.......he has burning and pints to the substernal area of the chest. Alert, looks to be in pain. Mucous membranes are dry. Lungs CTA HRRR, without ectopy Abd - distended and tympanic, BS's heard in all 4 quadrants. No rebound. NO masses. Denies hx of diverticulosis. Has never had a colonoscopy. Denies any significant weight loss recently. He is chronically constipated. Positive history of chronic anemia and the hemoglobin is stable. The HGB is actually higher than it has been in the recent past and I suspect this is due to dehydration. PO fluid intake recorded has been very poor KUB today shows a heavy stool burden with a nonobstructive bowel gas pattern and no free air. He had a CT of the abdomen/pelvis in March 2023 that showed fat stranding noted along the descending and proximal sigmoid colon associated with diffuse diverticulosis of the colon suggestive of diverticulitis. He had a retroperitoneal hematoma on that study. Impressions 1. Abd pain - suspect due to constipation. Dtr requested an EKG be done since he is c/o substernal burning. EKG is normal with no ST segment depression, inverted T waves or ST elevation. He was in normal sinus rhythm. I suspect the retrosternal burning is secondary to reflux related to gaseous distention in the abd. WBC is normal and the differential is unremarkable. Hemoglobin is stable. He was given a Dulcolax suppository with no results after 1 hour. Magnesium citrate has been ordered and he will be placed on a clear liquid diet today. Mucous membranes are dry and I suspect he is somewhat dehydrated. He has a history of heart failure with a reduced ejection fraction so we will hold off on hydration with intravenous fluids at this time. If no results with the MAG Citrate and the abd pain continues the next step would be a CT scan of the ABD with oral and IV contrast. I do not suspect a recurrent retroperitoneal bleed.......he has no pelvic pain and no flank pain. Start Simethicone to help with gas. Recheck a CBC with diff and a BMP in the AM. 2. Diverticulosis with history of diverticulitis in March 2023 3. Currently being treated for a left side pulmonary abscess. Scheduled for a bronchoscopy on 01-06. Chest x-ray today shows no change in the appearance. Has never had a colonoscopy Objective Data Objective Data Vital Signs: Vital Signs Temp Pulse Resp BP Pulse Ox O2 Del Method O2 Flow Rate 96.3 F L 76 16 145/79 H 93 Room Air 2 12/12/23 10:37 12/12/23 12:00 12/12/23 12:00 12/12/23 10:37 12/12/23 12:00 12/12/23 12:00 11/28/23 15:39 Oxygen Flow Rate (L/min) 2 Oxygen Delivery Method Room Air Weight: 165 lb 9 oz Body Mass Index (BMI) 25.0 Intake & Output: Intake and Output for Last 24 Hours 12/10/23 12/11/23 12/12/23 23:59 23:59 23:59 Intake Total 870 / 870 630 / 630 100 / 100 Output Total 650 / 650 Balance 870 / 870 -20 / -20 100 / 100 Lab / Micro Data 12/12/23 04:45 12/12/23 04:45 Labs: Laboratory Results - last 24 hr 12/12/23 04:45: WBC 9.4, RBC 3.68 L, Hgb 11.4 L, Hct 35.6 L, MCV 96.7 H, MCH 31.0, MCHC 32.0, RDW Std Deviation 54.0 H, RDW Coeff of David 15.1 H, Plt Count 225, MPV 9.3, Immature Gran % (Auto) 1.100 H, Neut % (Auto) 61.3, Lymph % (Auto) 18.8 L, Kidder % (Auto) 9.4, Eos % (Auto) 8.0 H, Baso % (Auto) 1.4 H, Absolute Neuts (auto) 5.8, Absolute Lymphs (auto) 1.77, Nucleated RBC % 0, Sodium 139, Potassium 3.6, Chloride 108 H, Carbon Dioxide 27.0, Anion Gap 5, BUN 13, Creatinine 1.06, Estim Creat Clear Calc 49.29, Est GFR (MDRD) Af Amer 85, Est GFR (MDRD) Non-Af 71, BUN/Creatinine Ratio 12.3, Glucose 99, Calcium 8.8 12/12/23 06:11: POC Glucose 96 Micro: Microbiology 12/07/23 15:05 Sputum, Expectorated/Coughed Gram Stain - Final 12/07/23 15:05 Sputum, Expectorated/Coughed Respiratory Culture - Final Presumptive C albicans Radiography Diagnostic Testing: Radiology Impression Acute Abdomen Series 12/12/23 08:11 IMPRESSION: 1. Left upper lobe opacity unchanged 2. Nonobstructive gas pattern.. Electronically Signed: Zachery Bee MD at 9:38 EDT , Charges/Coding Visit Charges Inpatient E&M: 85683 SNF Subs L1
[2023-12-12 14:14] VITALS: BP 140/79; PULSE 82; TEMP 36.1
[2023-12-12] MEDS: SimETHICONE 80 MG Chewable Tablet PO (14:16)
--- NOTE | 2023-12-12 14:50 | CPS ---
pt still having abdominal pain and throwing up, vest not done at this time
--- NOTE | 2023-12-12 16:13 | NURSING ---
dr rodríguez notified of pt very small BM results after dulcolax suppository and mag citrate today. pt cont to c/o of abdominal discomfort & now into rt lateral side/back area. new order to send pt to ER for evaluation, CT abdomen with/without contrast. spoke with PANCHO Tavarez in ER will return call when bed available. daughter updated.
--- NOTE | 2023-12-12 17:00 | NURSING ---
pt with approx 200cc clear liquid emesis, stated that it tasted like the mag citrate he had drank earlier in shift. resting in recliner chair, daughter at bedside.
--- NOTE | 2023-12-12 17:41 | NURSING ---
pt off unit via WC, daughter at side
--- NOTE | 2023-12-13 09:42 | PCM.DC.SUM ---
Providers Date of Admission: 11/20/23 Primary Care Physician: Dr. Arnulfo Rascon MD Consultations 11/23/23 07:39 Consult: Infectious Disease Routine Consulting Provider: Sylvester Galloway Reason for Consult: Klebsiella ITALO abscess. EMERGENT Consult: No Notified: Yes Date Notified: 11/23/23 Time Notified: 07:39 Method of Notification: Text 11/24/23 09:17 Consult: Assembler [employer] / Pulmonary Medicine Routine Consulting Provider: Sylvester Donald V Reason for Consult: Bronchoscopy? EMERGENT Consult: No MD Notified: Yes Date Notified: 11/24/23 Time Notified: 09:17 Method of Notification: Answering Service Reason For Visit: LUNG ABSCESS Diagnosis Discharge Diagnosis (1) Abscess of upper lobe of left lung with pneumonia: Status: Acute Code(s): J85.1 - Abscess of lung with pneumonia Plan 83 year old male with below past medical history significant for acute respiratory failure with hypoxia, left upper lobe Klebsiella lung abscess, left lower lobe pneumonia, bronchiectasis, failed outpatient therapy, admitted to TCU with debility, here for rehabilitation, strengthening, intravenous antibiotics, prior to discharge home with . Debility - PT/OT. Pain - Tylenol 1000mg q6 prn pain (1-10). Bowel - senna/colace 1 tablet bid, Magnesium citrate 300ml po daily prn. Adult immunization - Administer pneumonia vaccine, covid vaccine, flu vaccine as appropriate. DVT prophylaxis - on Eliquis. Emphysema of lung - Budesonide 0.5mg neg bid, Albuterol 2.5mg neb q6wa, Incruse 1 puff daily. Atrial Fibrillation - Metoprolol succinate 25mg daily, Tikosyn 250mg bid, Eliquis 5mg bid. Coronary artery disease - Metoprolol succinate 25mg daily, NTG 0.4mg sl q5m prn. Chronic HFpEF - Metoprolol succinate 25mg daily, Jardiance 12.5mg daily, Bumex 1mg mwf. Hyperlipidemia - Atorvastatin 10mg qhs, Zetia 10mg daily. Vitamin D deficiency - D3 25mcg daily. Vitamin B12 deficiency - B12 1000mcg im qmonth. 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 BPH - Finasteride 5mg daily, Tamsulosin 0.8mg thru 01/18/2024. Rash/pruritus - HC 2.5% topical tid prn, Hydroxyzine 25mg q6 prn, Calmoseptine topical bid. Tinea Corporis - Nystatin powder topical bid. Anxiety/restlessness/sleep - Lorazepam 0.5mg qhs thru 11/24/2023. Muscle spasm - Robaxin 750mg tid prn. Orthostatic hypotension - Midodrine 5mg tid prn. Macular degeneration - Healthy Eyes 1 cap daily. GERD - Pantoprazole 40mg daily, Carafate 1gm bidac. Left upper lobe Klebsiella abscess/left lower lobe pneumonia - Zosyn 3.35gm iv q8 thru 01/01/2024, order PICC line, Mucinex 1200mg bid, Consult Dr. Galloway for expert care. Medications at Discharge Home Medications rosuvastatin 5 mg tablet (Crestor) 5 mg PO QDAY cholesterol 07/04/17 cholecalciferol (vitamin D3) 25 mcg (1,000 unit) tablet 25 mcg PO DAILY supplement 05/22/21 metoprolol succinate 25 mg tablet,extended release 24 hr 25 mg PO DAILY AFIB 06/27/21 nitroglycerin 0.4 mg sublingual tablet 0.4 mg sublingual Q5M PRN CP 06/27/21 cyanocobalamin (vitamin B-12) 1,000 mcg/mL injection kit 100 mcg IM QMONTH supplement 03/29/23 dofetilide 250 mcg capsule 250 mcg PO Q12H afib 03/29/23 duloxetine 60 mg capsule,delayed release See Rx Instructions PO DAILY mood 03/29/23 empagliflozin 25 mg tablet (Jardiance) 12.5 mg PO DAILY heart 03/29/23 finasteride 5 mg tablet 5 mg PO DAILY bph 03/29/23 levalbuterol HCl 0.63 mg/3 mL solution for nebulization 0.63 mg inhalation TID copd 03/29/23 midodrine 5 mg tablet 5 mg PO TID PRN blood pressure 03/29/23 vit C 250 mg-vit E 200 unit-zinc ox 12.5 [id number]-zeax capsule (ICaps AREDS2) 1 cap PO DAILY supplement 03/29/23 budesonide 0.5 mg/2 mL suspension for nebulization 0.5 mg (2 mL) inhalation BID.RT Asthma #0 mL 04/01/23 lorazepam 0.5 mg tablet 0.5 mg PO QHS Anxiety #5 tabs 04/01/23 acetaminophen 500 mg tablet 1,000 mg (2 x 500 mg) PO Q6H PRN PRN Pain Score 1-3 #0 tabs 04/10/23 apixaban 5 mg tablet (Eliquis) 5 mg PO BID BLOOD THINNER #0 tabs 04/10/23 bumetanide 0.5 mg tablet 1 mg (2 x 0.5 mg) PO MOWEFR EDEMA #0 tabs 04/10/23 tamsulosin 0.4 mg capsule 0.8 mg (2 x 0.4 mg) PO QHS bph 30 days #60 caps 04/10/23 ezetimibe 10 mg tablet 10 mg PO QHS cholesterol 10/24/23 guaifenesin 1,200 mg tablet, extended release 12 hr (Mucinex) 1,200 mg PO BID mucus relief 10/24/23 pantoprazole 40 mg tablet,delayed release 40 mg PO DAILY GERD 10/24/23 tiotropium 2.5 mcg-olodaterol 2.5 mcg/actuation mist for inhalation (Stiolto Respimat) 2 inh inhalation DAILY COPD 10/24/23 methocarbamol 750 mg tablet 750 mg PO TID PRN Muscle Relaxer 11/20/23 sucralfate 100 mg/mL oral suspension (Carafate) 1 g PO BID antacid 11/20/23 Hospital Course Operations None Procedures None Summary of Care Provided Minutes Spent on Discharge: 15 Hospital Course: 83 year old male with below past medical history significant for acute respiratory failure with hypoxia, left upper lobe Klebsiella lung abscess, left lower lobe pneumonia, bronchiectasis, failed outpatient therapy, admitted to TCU with debility, here for rehabilitation, strengthening, intravenous antibiotics, prior to discharge home with . 12/12/2023 Resident developed abdominal pain, CT abdomen/pelvis concerning for acalculous cholecystitis. Discharge to [facility] ED for evaluation, possible admission to hospital. Weight / BMI Weight Weight: 75.098 kg Body Mass Index (BMI) 25.0 ABG / Lab / Microbiology Data 12/12/23 04:45 12/12/23 04:45 Microbiology: Microbiology 12/07/23 15:05 Sputum, Expectorated/Coughed Gram Stain - Final 12/07/23 15:05 Sputum, Expectorated/Coughed Respiratory Culture - Final Presumptive C albicans D/C Instructions Discharge Activity: Return to Normal Activity, May Shower and Use Walker Weight Bearing Status: Weight bearing as tolerated Call your doctor if you observe: Fever of 101 or Higher, Inability to urinate, Inability to have a bowel movement, Shortness of breath, Dizziness, Fainting spells, Swelling in the ankles, Chest pain and Uncontrolled pain Additional Instructions: Discharge to [facility] ED for evaluation, possible admission to hospital. Meaningful Use Info Meaningful Use Meaningful Use Diagnoses (Choose all that apply): None applicable Ischemic Stroke Statin Dosing Therapy Reference: STATIN DOSE THERAPY REFERENCE: * Patients > 75 years receive moderate or high dose statin therapy. * Patients 75 years or YOUNGER should receive HIGH intensity statin dose unless contraindicated. You will be required to document reason for non-treatment if statin daily dose does not meet guidelines. HIGH DOSE STATIN THERAPY DAILY Atorvastatin > than or = to 40 mg Rosuvastatin > than or = to 20 mg Amlodipine + Atorvastatin > than or = to 2.5/40 mg Ezetimibe + Simvastatin 10/80 mg Simvastatin 80mg Discharge Plan Admission Admit Date/Time: 11/20/23 21:47 Primary Reason for Your Visit: Debility. Attending Provider: Parrish Shah Chi Primary Care Provider: Arnulfo Rascon Consulting Providers: Sylvester Galloway; Sylvester Donald V Instructions Additional Instructions / Restrictions: Discharge to [facility] ED for evaluation, possible admission to hospital. Discharge Orders/Prescriptions Prescriptions: No Action rosuvastatin [Crestor] 5 mg tablet 5 mg PO QDAY metoprolol succinate 25 mg tablet extended release 24 hr 25 mg PO DAILY nitroglycerin 0.4 mg tablet, sublingual 0.4 mg sublingual Q5M PRN (Reason: CP) Rx Instructions: do not exceed 3 doses per episode dofetilide 250 mcg capsule 250 mcg PO Q12H Patient Comments: TAKE 1 CAPSULE BY MOUTH EVERY 12 HOURS midodrine 5 mg tablet 5 mg PO TID PRN (Reason: blood pressure) Patient Comments: Takes in the morning and evening and the afternoon dose is PRN if he needs it. finasteride 5 mg tablet 5 mg PO DAILY Patient Comments: take 1 tablet by mouth once daily duloxetine 60 mg capsule,delayed release(DR/EC) See Rx Instructions PO DAILY Rx Instructions: 60 mg (2 caps) orally daily; Jardiance 25 mg tablet 12.5 mg PO DAILY levalbuterol HCl 0.63 mg/3 mL solution for nebulization 0.63 mg INHALATION TID Patient Comments: USE 1 VIAL 3 TIMES A DAY ICaps AREDS2 250 mg-200 unit -12.5 mg-1 mg capsule 1 cap PO DAILY cyanocobalamin (vitamin B-12) 1,000 mcg/mL kit 100 mcg IM QMONTH lorazepam 0.5 mg Tablet 0.5 mg PO QHS Qty: 5 0RF budesonide 0.5 mg/2 mL Suspension For Nebulization 0.5 mg inhalation BID.RT Qty: 0 0RF acetaminophen 500 mg Tablet 1,000 mg PO Q6H PRN PRN (Reason: Pain Score 1-3) Qty: 0 0RF Eliquis 5 mg Tablet 5 mg PO BID Qty: 0 0RF bumetanide 0.5 mg Tablet 1 mg PO MOWEFR Qty: 0 0RF tamsulosin 0.4 mg Capsule 0.8 mg PO QHS 30 Days Qty: 60 0RF pantoprazole 40 mg tablet,delayed release (DR/EC) 40 mg PO DAILY Patient Comments: take 1 tablet by mouth twice a day take before meals Rx Instructions: Before meals ezetimibe 10 mg tablet 10 mg PO QHS guaifenesin [Mucinex] 1,200 mg tablet extended release 12hr 1,200 mg PO BID Stiolto Respimat 2.5-2.5 mcg/actuation mist 2 inh inhalation DAILY methocarbamol 750 mg tablet 750 mg PO TID PRN (Reason: Muscle Relaxer) Rx Instructions: for neck pain sucralfate [Carafate] 100 mg/mL suspension 1 g PO BID cholecalciferol (vitamin D3) 25 mcg (1,000 unit) tablet 25 mcg PO DAILY Referrals / Follow Up: Arnulfo Rascon MD [Primary Care Provider] - Disposition Disposition (needs filled in before D/C Order can be placed): [facility]
--- NOTE | 2023-12-14 08:07 | PCM.DC.SUM ---
Providers Date of Admission: 11/20/23 Date of Discharge: 12/12/23 Primary Care Physician: Dr. Anrulfo Rascon MD Consultations 11/23/23 07:39 Consult: Infectious Disease Routine Consulting Provider: Sylvester Galloway Reason for Consult: Klebsiella ITALO abscess. EMERGENT Consult: No Notified: Yes Date Notified: 11/23/23 Time Notified: 07:39 Method of Notification: Text 11/24/23 09:17 Consult: It Telecom Technician / Pulmonary Medicine Routine Consulting Provider: Sylvester Donald V Reason for Consult: Bronchoscopy? EMERGENT Consult: No Notified: Yes Date Notified: 11/24/23 Time Notified: 09:17 Method of Notification: Answering Service Reason For Visit: LUNG ABSCESS Diagnosis Discharge Diagnosis (1) Debility: Status: Acute Code(s): R53.81 - Other malaise (2) Abscess of upper lobe of left lung with pneumonia: Status: Acute Code(s): J85.1 - Abscess of lung with pneumonia (3) Abdominal pain: Status: Acute Code(s): R10.9 - Unspecified abdominal pain Plan Transfer to ED. Needs a CT of the abd and pelvis with oral and IV contrast. Medications at Discharge Home Medications rosuvastatin 5 mg tablet (Crestor) 5 mg PO QDAY cholesterol 07/04/17 cholecalciferol (vitamin D3) 25 mcg (1,000 unit) tablet 25 mcg PO DAILY supplement 05/22/21 metoprolol succinate 25 mg tablet,extended release 24 hr 25 mg PO DAILY AFIB 06/27/21 nitroglycerin 0.4 mg sublingual tablet 0.4 mg sublingual Q5M PRN CP 06/27/21 cyanocobalamin (vitamin B-12) 1,000 mcg/mL injection kit 100 mcg IM QMONTH supplement 03/29/23 dofetilide 250 mcg capsule 250 mcg PO Q12H afib 03/29/23 duloxetine 60 mg capsule,delayed release See Rx Instructions PO DAILY mood 03/29/23 empagliflozin 25 mg tablet (Jardiance) 12.5 mg PO DAILY heart 03/29/23 finasteride 5 mg tablet 5 mg PO DAILY bph 03/29/23 levalbuterol HCl 0.63 mg/3 mL solution for nebulization 0.63 mg inhalation TID copd 03/29/23 midodrine 5 mg tablet 5 mg PO TID PRN blood pressure 03/29/23 vit C 250 mg-vit E 200 unit-zinc ox 12.5 uq-oegopk-ipxlid-zeax capsule (ICaps AREDS2) 1 cap PO DAILY supplement 03/29/23 budesonide 0.5 mg/2 mL suspension for nebulization 0.5 mg (2 mL) inhalation BID.RT Asthma #0 mL 04/01/23 lorazepam 0.5 mg tablet 0.5 mg PO QHS Anxiety #5 tabs 04/01/23 acetaminophen 500 mg tablet 1,000 mg (2 x 500 mg) PO Q6H PRN PRN Pain Score 1-3 #0 tabs 04/10/23 apixaban 5 mg tablet (Eliquis) 5 mg PO BID BLOOD THINNER #0 tabs 04/10/23 bumetanide 0.5 mg tablet 1 mg (2 x 0.5 mg) PO MOWEFR EDEMA #0 tabs 04/10/23 tamsulosin 0.4 mg capsule 0.8 mg (2 x 0.4 mg) PO QHS bph 30 days #60 caps 04/10/23 ezetimibe 10 mg tablet 10 mg PO QHS cholesterol 10/24/23 guaifenesin 1,200 mg tablet, extended release 12 hr (Mucinex) 1,200 mg PO BID mucus relief 10/24/23 pantoprazole 40 mg tablet,delayed release 40 mg PO DAILY GERD 10/24/23 tiotropium 2.5 mcg-olodaterol 2.5 mcg/actuation mist for inhalation (Stiolto Respimat) 2 inh inhalation DAILY COPD 10/24/23 methocarbamol 750 mg tablet 750 mg PO TID PRN Muscle Relaxer 11/20/23 sucralfate 100 mg/mL oral suspension (Carafate) 1 g PO BID antacid 11/20/23 Weight / BMI Weight Weight: 165 lb 9 oz Body Mass Index (BMI) 25.0 ABG / Lab / Microbiology Data 12/12/23 04:45 12/12/23 04:45 Microbiology: Microbiology 12/07/23 15:05 Sputum, Expectorated/Coughed Gram Stain - Final 12/07/23 15:05 Sputum, Expectorated/Coughed Respiratory Culture - Final Presumptive C albicans D/C Instructions Weight Bearing Status: Weight bearing as tolerated Call your doctor if you observe: Fever of 101 or Higher, Inability to urinate, Inability to have a bowel movement, Shortness of breath, Dizziness, Fainting spells, Swelling in the ankles, Chest pain and Uncontrolled pain Additional Instructions: Discharge to [facility] ED for evaluation, possible admission to hospital. Meaningful Use Info Ischemic Stroke Statin Dosing Therapy Reference: STATIN DOSE THERAPY REFERENCE: * Patients > 75 years receive moderate or high dose statin therapy. * Patients 75 years or YOUNGER should receive HIGH intensity statin dose unless contraindicated. You will be required to document reason for non-treatment if statin daily dose does not meet guidelines. HIGH DOSE STATIN THERAPY DAILY Atorvastatin > than or = to 40 mg Rosuvastatin > than or = to 20 mg Amlodipine + Atorvastatin > than or = to 2.5/40 mg Ezetimibe + Simvastatin 10/80 mg Simvastatin 80mg Discharge Plan Admission Admit Date/Time: 11/20/23 21:47 Primary Reason for Your Visit: Debility. Attending Provider: Parrish Shah Chi Primary Care Provider: Arnulfo Rascon Consulting Providers: Sylvester Galloway; Sylvester Donald V Instructions Additional Instructions / Restrictions: Discharge to [facility] ED for evaluation, possible admission to hospital. Discharge Orders/Prescriptions Prescriptions: No Action rosuvastatin [Crestor] 5 mg tablet 5 mg PO QDAY metoprolol succinate 25 mg tablet extended release 24 hr 25 mg PO DAILY nitroglycerin 0.4 mg tablet, sublingual 0.4 mg sublingual Q5M PRN (Reason: CP) Rx Instructions: do not exceed 3 doses per episode dofetilide 250 mcg capsule 250 mcg PO Q12H Patient Comments: TAKE 1 CAPSULE BY MOUTH EVERY 12 HOURS midodrine 5 mg tablet 5 mg PO TID PRN (Reason: blood pressure) Patient Comments: Takes in the morning and evening and the afternoon dose is PRN if he needs it. finasteride 5 mg tablet 5 mg PO DAILY Patient Comments: take 1 tablet by mouth once daily duloxetine 60 mg capsule,delayed release(DR/EC) See Rx Instructions PO DAILY Rx Instructions: 60 mg (2 caps) orally daily; Jardiance 25 mg tablet 12.5 mg PO DAILY levalbuterol HCl 0.63 mg/3 mL solution for nebulization 0.63 mg INHALATION TID Patient Comments: USE 1 VIAL 3 TIMES A DAY ICaps AREDS2 250 mg-200 unit -12.5 mg-1 mg capsule 1 cap PO DAILY cyanocobalamin (vitamin B-12) 1,000 mcg/mL kit 100 mcg IM QMONTH lorazepam 0.5 mg Tablet 0.5 mg PO QHS Qty: 5 0RF budesonide 0.5 mg/2 mL Suspension For Nebulization 0.5 mg inhalation BID.RT Qty: 0 0RF acetaminophen 500 mg Tablet 1,000 mg PO Q6H PRN PRN (Reason: Pain Score 1-3) Qty: 0 0RF Eliquis 5 mg Tablet 5 mg PO BID Qty: 0 0RF bumetanide 0.5 mg Tablet 1 mg PO MOWEFR Qty: 0 0RF tamsulosin 0.4 mg Capsule 0.8 mg PO QHS 30 Days Qty: 60 0RF pantoprazole 40 mg tablet,delayed release (DR/EC) 40 mg PO DAILY Patient Comments: take 1 tablet by mouth twice a day take before meals Rx Instructions: Before meals ezetimibe 10 mg tablet 10 mg PO QHS guaifenesin [Mucinex] 1,200 mg tablet extended release 12hr 1,200 mg PO BID Stiolto Respimat 2.5-2.5 mcg/actuation mist 2 inh inhalation DAILY methocarbamol 750 mg tablet 750 mg PO TID PRN (Reason: Muscle Relaxer) Rx Instructions: for neck pain sucralfate [Carafate] 100 mg/mL suspension 1 g PO BID cholecalciferol (vitamin D3) 25 mcg (1,000 unit) tablet 25 mcg PO DAILY Referrals / Follow Up: Arnulfo Rascon MD [Primary Care Provider] - Disposition Disposition (needs filled in before D/C Order can be placed): [facility]
== END 2023-12-12 17:40 | disposition short-term general hospital (02) | DRG 177 ==
PROVIDERS: Admitting Provider Family Medicine Geriatric Medicine; PCP Family Medicine; Visit Provider Family Medicine Geriatric Medicine
DX: J15.0 Pneumonia due to Klebsiella pneumoniae (principal); J85.1 Abscess of lung with pneumonia; J96.01 Acute respiratory failure with hypoxia; J47.0 Bronchiectasis with acute lower respiratory infection; I50.42 Chronic combined systolic (congestive) and diastolic (congestive) heart failure; J44.0 Chronic obstructive pulmonary disease with (acute) lower respiratory infection; K81.9 Cholecystitis, unspecified; F32.A Depression, unspecified; I48.91 Unspecified atrial fibrillation; I25.10 Atherosclerotic heart disease of native coronary artery without angina pectoris; E53.8 Deficiency of other specified B group vitamins; E78.5 Hyperlipidemia, unspecified; E55.9 Vitamin D deficiency, unspecified; I95.1 Orthostatic hypotension; H35.30 Unspecified macular degeneration; F41.9 Anxiety disorder, unspecified; K21.9 Gastro-esophageal reflux disease without esophagitis; K57.30 Diverticulosis of large intestine without perforation or abscess without bleeding; B35.4 Tinea corporis; N40.0 Benign prostatic hyperplasia without lower urinary tract symptoms; Z87.891 Personal history of nicotine dependence; B96.1 Klebsiella pneumoniae [K. pneumoniae] as the cause of diseases classified elsewhere; Z79.899 Other long term (current) drug therapy; Z86.16 Personal history of COVID-19; Z79.51 Long term (current) use of inhaled steroids; Z79.01 Long term (current) use of anticoagulants; Z23 Encounter for immunization
CPT/HCPCS: 36415; 36569; 71046; 74022; 80048; 82962; 85025; 87070; 87205; 90480; 90662; 91322; 93005; 94640; 94667; 94668; 97110; 97112; 97116; 97162; 97166; 97530; 97535; 97802; G0008; J2997; J7030; J7050; A4216; J3420

== ENCOUNTER → 2023-11-24 | Outpatient (CLI) | payer MEDICARE, SELFPAY ==
--- NOTE | 2023-11-24 08:49 | VDUE_ITS ---
Reason For Study: SWELLING Right Proximal Right jugular vein is spontaneous, widely patent, phasic, with no intraluminal echogenicity noted. Right subclavian vein is spontaneous, widely patent, phasic, with no intraluminal echogenicity noted. Right Lower Arm Right radial vein is compressible. Right ulnar vein is compressible. Right Arm Right axillary vein is spontaneous, patent, phasic, competent, compressible and demonstrates augmentation. Right brachial vein is compressible. Right cephalic vein is compressible. Right basilic vein is compressible. PICC line seen in RT Basilic V. VL/Venous Duplex US, Unilateral Interpretation Summary Deep veins of the right upper extremity are patent and compressible segmentally . There is no evidence of deep vein thrombosis. Superficial veins of the right upper extremity are patent and compressible segm entally. There is no evidence of superficial vein thrombosis. Ordering Physician: Parrish Shah Chi Referring Physician: Arnulfo Rascon Performed By: Ev Baires, ALIX, RVT ???
== END | disposition home or self-care (01) ==
LOC: CVS 08:49
PROVIDERS: PCP Family Medicine; Referring Provider Family Medicine Geriatric Medicine; Visit Provider Family Medicine Geriatric Medicine
DX: R22.31 Localized swelling, mass and lump, right upper limb (principal)
CPT/HCPCS: 93971

== ENCOUNTER → 2023-12-10 | Outpatient (CLI) | payer MEDICARE, SELFPAY ==
--- NOTE | 2023-12-10 14:35 | CT_ITS ---
STUDY: CT CHEST T ABDOMEN WITHOUT CONTRAST REASON FOR EXAM: Male, 83 years old. LUNG ABSCESS RADIATION DOSAGE (If Supplied By Facility): CTDIvol = ( 12.49 ) mGy, DLP = ( 490.10 ) mGycm TECHNIQUE: Transaxial imaging was performed without the administration of intravenous contrast material. Multiplanar coronal and sagittal images were reformatted. Individualized dose optimization techniques were used for this CT. COMPARISON: Comparison is made with prior study dated November 11, 2023. FINDINGS: CHEST There is a persistent 2.4 cm x 3.6 cm nodule in the anterior aspect of the left upper lobe abutting the left major fissure. It is less cystic at this time. This may represent resolving abscess. Further follow-up recommended. Persistent linear scarring at the lung bases. There is no demonstrated pleural abnormality. There are calcifications of the coronary arteries. There are multiple small lymph nodes within the mediastinum, which are normal in size and morphology most compatible with reactive lymph hyperplasia. Normal hilar regions. Normal unenhanced pulmonary arteries. Normal aorta arch and descending thoracic aorta. There are multi-level degenerative changes of the thoracic spine. There is no demonstrated abnormality of the visualized upper abdomen. CT/Chest without Contrast IMPRESSION: Further decrease in size of the pulmonary abscess in the anterior aspect of the left upper lobe as described. Further follow-up recommended. Electronically Signed: Chris Ventura MD at 14:53 EDT ,
== END | disposition home or self-care (01) ==
LOC: CT 13:47
PROVIDERS: PCP Family Medicine; Visit Provider Internal Medicine Pulmonary Disease
DX: J85.2 Abscess of lung without pneumonia (principal)
CPT/HCPCS: 71250

== ENCOUNTER 2023-12-12 17:43 | Emergency (ER) | payer MEDICARE, SELFPAY ==
[2023-12-12] VITALS (8 sets, daily range): BP systolic 121–164; BP diastolic 82–103; PULSE 82–120; RESP 20–32; TEMP 36.6–36.9; O2SAT 90–96; BMI 26.4
--- NOTE | 2023-12-12 17:46 | EX.ED.DYSGE1 ---
HPI History of Present Illness Chief Complaint: Abd Pain [facility] Medical History Pulmonary fibrosis Sinus node dysfunction HFrEF (heart failure with reduced ejection fraction) Chronic diarrhea Retroperitoneal hematoma Atherosclerotic heart disease of solomon coronary artery without angina pectoris Obstructive sleep apnea Hyperlipidemia SVT (supraventricular tachycardia) GERD (gastroesophageal reflux disease) COPD (chronic obstructive pulmonary disease) BPH (benign prostatic hyperplasia) Paroxysmal atrial fibrillation Home Medications ?Medication ?Instructions ?Recorded ?Last Taken ?Type rosuvastatin 5 mg tablet (Crestor) 5 mg PO QDAY cholesterol 07/04/17 10/24/23 History cholecalciferol (vitamin D3) 25 25 mcg PO DAILY supplement 05/22/21 10/24/23 History mcg (1,000 unit) tablet metoprolol succinate 25 mg 25 mg PO DAILY AFIB 06/27/21 12/12/23 History tablet,extended release 24 hr nitroglycerin 0.4 mg sublingual 0.4 mg sublingual Q5M PRN CP 06/27/21 Unknown History tablet cyanocobalamin (vitamin B-12) 100 mcg IM QMONTH supplement 03/29/23 10/17/23 History 1,000 mcg/mL injection kit dofetilide 250 mcg capsule 250 mcg PO Q12H afib 03/29/23 12/12/23 History duloxetine 60 mg capsule,delayed See Rx Instructions PO DAILY mood 03/29/23 10/24/23 History release empagliflozin 25 mg tablet 12.5 mg PO DAILY heart 03/29/23 10/24/23 History (Jardiance) finasteride 5 mg tablet 5 mg PO DAILY bph 03/29/23 10/24/23 History levalbuterol HCl 0.63 mg/3 mL 0.63 mg inhalation TID copd 03/29/23 10/24/23 History solution for nebulization midodrine 5 mg tablet 5 mg PO TID PRN blood pressure 03/29/23 10/24/23 History vit C 250 mg-vit E 200 unit-zinc 1 cap PO DAILY supplement 03/29/23 10/24/23 History ox 12.5 je-zaglbd-emaxuu-zeax capsule (ICaps AREDS2) budesonide 0.5 mg/2 mL suspension 0.5 mg (2 mL) inhalation BID.RT 04/01/23 10/24/23 Rx for nebulization Asthma #0 mL lorazepam 0.5 mg tablet 0.5 mg PO QHS Anxiety #5 tabs 04/01/23 10/23/23 Rx acetaminophen 500 mg tablet 1,000 mg (2 x 500 mg) PO Q6H PRN 04/10/23 10/23/23 Rx PRN Pain Score 1-3 #0 tabs apixaban 5 mg tablet (Eliquis) 5 mg PO BID BLOOD THINNER #0 tabs 04/10/23 12/12/23 Rx bumetanide 0.5 mg tablet 1 mg (2 x 0.5 mg) PO MOWEFR EDEMA 04/10/23 11/18/23 Rx #0 tabs tamsulosin 0.4 mg capsule 0.8 mg (2 x 0.4 mg) PO QHS bph 30 04/10/23 10/23/23 Rx days #60 caps ezetimibe 10 mg tablet 10 mg PO QHS cholesterol 10/24/23 Unknown History guaifenesin 1,200 mg tablet, 1,200 mg PO BID mucus relief 10/24/23 Unknown History extended release 12 hr (Mucinex) pantoprazole 40 mg tablet,delayed 40 mg PO DAILY GERD 10/24/23 Unknown History release tiotropium 2.5 mcg-olodaterol 2.5 2 inh inhalation DAILY COPD 10/24/23 Unknown History mcg/actuation mist for inhalation (Stiolto Respimat) methocarbamol 750 mg tablet 750 mg PO TID PRN Muscle Relaxer 11/20/23 Unknown History sucralfate 100 mg/mL oral 1 g PO BID antacid 11/20/23 Unknown History suspension (Carafate) Allergy/AdvReac Type Severity Reaction Status Date / Time tramadol Allergy Unknown PT UNSURE Verified 11/20/23 15:52 OF REACTION clindamycin AdvReac Intermediate Rash Verified 11/21/23 11:51 terbinafine AdvReac Intermediate Rash Verified 11/21/23 11:51 Family History Mother , Age 64 from Emphysema COPD (chronic obstructive pulmonary disease) Blood disorder Father No problems noted. Surgical History S/P ablation of atrial fibrillation History of left heart catheterization (05/27/21) History of tonsillectomy History of ankle surgery History of back surgery History of appendectomy History of inguinal hernia repair History of umbilical hernia repair Social History household members: spouse housing: house Smoking Status: Former smoker how long ago did patient quit smokin years ago alcohol intake: current alcohol intake frequency: holidays/special occasions only substance use type: does not use caffeine: Yes Type: coffee Number of servings: 2 EXAM Physical Exam Const Vital Signs: 12/12/23 17:44 12/12/23 17:44 12/12/23 17:49 Temperature 98 F 98 F 98 F Temperature Source Oral Oral Oral Pulse Rate 102 H 102 H Respiratory Rate 32 H 26 H Blood Pressure 164/103 H 155/91 H 155/91 H Blood Pressure Mean 123 112 112 Pulse Ox 90 90 Oxygen Delivery Method Room Air Room Air Oxygen Flow Rate (L/min) 12/12/23 18:49 12/12/23 19:00 12/12/23 20:00 Temperature 98.2 F 98.3 F 98.5 F Temperature Source Oral Oral Oral Pulse Rate 106 H 82 118 H Respiratory Rate 30 H 20 H 20 H Blood Pressure 140/89 H 146/82 H 146/91 H Blood Pressure Mean 106 103 109 Pulse Ox 94 96 94 Oxygen Delivery Method Nasal Cannula Nasal Cannula Nasal Cannula Oxygen Flow Rate (L/min) 2 2 2 12/12/23 21:00 12/12/23 22:00 12/12/23 23:00 Temperature 98.2 F 98.4 F 98.1 F Temperature Source Oral Oral Oral Pulse Rate 108 H 120 H 108 H Respiratory Rate 20 H 20 H 22 H Blood Pressure 141/93 H 134/87 H 121/86 H Blood Pressure Mean 109 102 97 Pulse Ox 93 94 92 Oxygen Delivery Method Nasal Cannula Nasal Cannula Nasal Cannula Oxygen Flow Rate (L/min) 2 2 2 MDM MDM MDM Narrative Medical decision making narrative: HISTORY OF PRESENT ILLNESS: 83-year-old male presents abdominal pain. Notes he was in the transitional care unit. Notes he was vomiting. Notes an x-ray was performed and noted constipation. No she received a suppository and tried to drink med citrate but vomited once again. He further states this morning developed severe abdominal pain, nausea vomit. Last bowel movement was 12/11/2023 (yesterday). Notes history of appendectomy. Notes he still has his gallbladder. REVIEW OF SYSTEMS: Pertinent positives: Abdominal pain, nausea vomit Pertinent negatives: Fever PHYSICAL EXAM: Nursing triage notes reviewed, Vital signs reviewed Constitutional: please see [facility] HENT: MMM Eyes: Pupils equal round and reactive to light, Extraocular muscles intact Neck: No stridor, no JVD, full neck ROM Lungs: Clear to auscultation, No wheezing or rales. No increased work of breathing, no conversational dyspnea, no accessory muscle use, no nasal flaring. No respiratory distress noted Heart: Regular rate and rhythm, No murmurs, No rubs and No gallops, 2+ distal pulses (radial, femoral, posterior tibial) in all extremities Abdomen: Soft, there is no tenderness, rigidity, rebound or guarding, no obvious peritoneal signs, no palpable pulsatile abdominal masses, no auscultated abdominal bruit : No CVAT Extremities: No edema Neuro: No focal neurological deficits, cranial nerves II through XII intact, 5/5 strength in all extremities. Intact sensation to light touch in all extremities, 2+ reflexes bilateral patella tendons. Normal gait. No ataxia. Skin: No rash or lesions noted MEDICAL DECISION MAKING: Chief Complaint: Abdominal pain External records reviewed: Imaging reviewed: KUB from earlier today showed nonobstructive bowel gas pattern. Factors affecting care: Atrial fibrillation on Eliquis, BPH, COPD, hyperlipidemia, CAD, Social determinants of health: none History obtained from others: none Consults: General Surgery (Dr. Barker), [facility] Narrative: The patient was initially tachypneic respiratory 32, tachycardic at a rate of 102, saturating 90% on room air. I considered the following differential diagnosis: Sigmoid volvulus, obstruction, perforation, acute pancreatitis, ACS, arrhythmia, anemia, UTI, urinary retention I obtained a broad lab and imaging workup to further elucidate etiology of patient complaints ALL IMAGES (IF OBTAINED) HAVE BEEN PERSONALLY REVIEWED AND INTERPRETED BY MYSELF. Some labs were ordered in the transitional care unit and they are reviewed as follows: CBC showed no leukocytosis, that showed mild stable anemia, no thrombocytopenia BMP without evidence of significant electrolyte abnormalities, no anion gap, no acute kidney injury. I added lipase, LFTs, lactate, troponin, EKG, lactate CT scan abdomen pelvis with IV contrast I treat the patient with IV morphine, IV Zofran, 500 cc bolus. I continued the patient's already prescribed Zosyn EKG with sinus tachycardia rate of 104, left axis deviation, no STEMI LFTs with significant hyperbilirubinemia which is new from prior, is also elevation of liver enzymes concerning for obstructive gallbladder pathology Lactate is wnl indicating no end-organ hypoperfusion and/or hypoxia. Urinalysis shows no evidence of urinary inflammation suggestive of UTI High-sensitivity troponin is negative, no evidence of myocardial ischemia Chest x-ray was read and reviewed by myself shows known lung abscess CT scan the patient had a pelvis was read and reviewed with myself and showed evidence of a large gallbladder. Distended with some surrounding stranding concerning for acute gallbladder pathology. This point abdominal ultrasound. Radiologist agreed with my interpretation of the CT scan and noted more inflammation and edema surrounding the gallbladder, duodenum, pancreas Gallbladder ultrasound shows evidence of a calculus cholecystitis I consulted general surgeon at this point spoke to Dr. Barker who noted the patient likely require percutaneous cholecystostomy tube. He would require interventional radiology consultation to achieve this. He stated the patient be better served being transferred to high-level care that had interventional radiology services as [facility] not have the service at this time. The synthesis of the patient's history, physical exam, labs images and consultations suggest his abdominal pain is related to a calculus cholecystitis with surrounding duodenal and pancreatic inflammation. Patient benefit from transfer in order to undergo IR evaluation for possible percutaneous gallbladder drainage. Patient excepted in transfer. Transfer form signed. Awaiting transport. Signed out to overnight physician awaiting transport The patient and/or family, caregivers express understanding. The patient and/or family, caregivers agrees with the plan. Shared decision making: I will have a discussion with the patient and or visitors regarding risk/benefits of further testing or admission. They will be made aware of of the risk/benefits inherent in this decision they will be given the opportunity to voice understanding. Total critical care time today provided was at least 60 minutes. This excludes separately billable procedures. Critical care time (if documented) is secondary to the patient having high probability of clinically significant/life threatening deterioration in the patient's condition which required my urgent intervention. Impression: 1. Acute abdominal pain 2. Nausea vomiting 3. Acute acalculous cholecystitis 4. Acute pancreatitis 5. Hyperbilirubinemia Dispo: Transfer for definitive care This note was generated with [employer] dictation software. It may contain incorrect words, spelling, and punctuation that were not noted in review of the chart prior to signing. Lab Data Labs: Laboratory Results - last 24 hr 12/12/23 12/12/23 12/12/23 18:22 18:41 22:45 Lactic Acid 1.2 Total Bilirubin 2.20 H Direct Bilirubin 1.31 H AST 131 H ALT 138 H Alkaline Phosphatase 176 H Troponin I High Sens 9 Total Protein 6.9 Albumin 3.3 Globulin 3.6 Lipase 675 H Urine Color Yellow Urine Clarity Clear Urine pH 5.0 Ur Specific Barry 1.020 Urine Protein 30 H Urine Glucose (UA) 1000 H Urine Ketones 15 H Urine Occult Blood 10 H Urine Nitrite Negative Urine Bilirubin Negative Urine Urobilinogen Normal Ur Leukocyte Esterase Negative Urine RBC 0 SEEN Urine WBC 0 SEEN Ur Squamous Epith Cells 0-5 SEEN Urine Bacteria 1+ Urine Mucus 0 SEEN Radiography Diagnostic Testing: Clinical Impression(s) from Imaging Studies Abdomen/Pelvis CT 12/12/23 19:08 IMPRESSION: 1. Marked inflammation and edema surrounding prominently distended gallbladder, second and proximal third parts of duodenum, and adjacent to the proximal pancreas. Moderate fluid extending along the right greater than left anterior pararenal fascial planes. Mild fluid in the lower abdomen and trace fluid in the pelvis. 2. Findings may be due to marked acute acalculous cholecystitis and suspected associated early pancreatitis. Cannot exclude marked duodenitis but this is likely secondary to adjacent inflammation. 4 cm exophytic diverticulum, less likely nonperforated ulcer, projecting medially and posteriorly from the distal third part of the duodenum, not the epicenter of the inflammatory changes. 3. Extensive periportal edema around patent main portal vein and hepatic artery. No visible peptic ulcer or discrete drainable abscess. No free air. No gallbladder wall pneumatosis. 4. Moderate diverticulosis. Mild fat-containing hernias. Mild splenomegaly. Advanced coronary artery calcifications or stents. Electronically Signed: Tamika Contreras MD at 21:50 EDT , Gallbladder Ultrasound 12/12/23 19:14 IMPRESSION: Prominently distended gallbladder with wall thickening, pericholecystic fluid and a positive sonographic Mena''s sign. Findings highly consistent with acute acalculous cholecystitis in the appropriate clinical setting. There is much more extensive periportal the gallbladder inflammation and edema on CT likely associated mild pancreatitis. Electronically Signed: Tamika Contreras MD at 21:55 EDT , Chest X-Ray 12/12/23 19:20 IMPRESSION: Increased patchy opacities in the left lung superior and inferior to the known discrete masslike focus seen on multiple prior exams and mild decreased left lung volume. Possibly worsening pneumonia surrounding known abscess. Electronically Signed: Tamika Contreras MD at 22:00 EDT , ADDENDUM: 12/12/23 2226 IMPRESSION: Increased patchy opacities in the left lung superior and inferior to the known discrete masslike focus seen on multiple prior exams and mild decreased left lung volume. Possibly worsening pneumonia surrounding known abscess. N.B. : Wing Patel DO, confirmed on 12/12/2023 22:19:23 (ET) that the referring physician received the results and does not require a verbal communication. Electronically Signed: Tamika Contreras MD at 22:00 EDT , Discharge Plan Triage Chief Complaint: Abd Pain ED Provider: Wing Patel Dx/Rx/DC Orders Prescriptions: No Action rosuvastatin [Crestor] 5 mg tablet 5 mg PO QDAY metoprolol succinate 25 mg tablet extended release 24 hr 25 mg PO DAILY nitroglycerin 0.4 mg tablet, sublingual 0.4 mg sublingual Q5M PRN (Reason: CP) Rx Instructions: do not exceed 3 doses per episode dofetilide 250 mcg capsule 250 mcg PO Q12H Patient Comments: TAKE 1 CAPSULE BY MOUTH EVERY 12 HOURS midodrine 5 mg tablet 5 mg PO TID PRN (Reason: blood pressure) Patient Comments: Takes in the morning and evening and the afternoon dose is PRN if he needs it. finasteride 5 mg tablet 5 mg PO DAILY Patient Comments: take 1 tablet by mouth once daily duloxetine 60 mg capsule,delayed release(DR/EC) See Rx Instructions PO DAILY Rx Instructions: 60 mg (2 caps) orally daily; Jardiance 25 mg tablet 12.5 mg PO DAILY levalbuterol HCl 0.63 mg/3 mL solution for nebulization 0.63 mg INHALATION TID Patient Comments: USE 1 VIAL 3 TIMES A DAY ICaps AREDS2 250 mg-200 unit -12.5 mg-1 mg capsule 1 cap PO DAILY cyanocobalamin (vitamin B-12) 1,000 mcg/mL kit 100 mcg IM QMONTH lorazepam 0.5 mg Tablet 0.5 mg PO QHS Qty: 5 0RF budesonide 0.5 mg/2 mL Suspension For Nebulization 0.5 mg inhalation BID.RT Qty: 0 0RF acetaminophen 500 mg Tablet 1,000 mg PO Q6H PRN PRN (Reason: Pain Score 1-3) Qty: 0 0RF Eliquis 5 mg Tablet 5 mg PO BID Qty: 0 0RF bumetanide 0.5 mg Tablet 1 mg PO MOWEFR Qty: 0 0RF tamsulosin 0.4 mg Capsule 0.8 mg PO QHS 30 Days Qty: 60 0RF pantoprazole 40 mg tablet,delayed release (DR/EC) 40 mg PO DAILY Patient Comments: take 1 tablet by mouth twice a day take before meals Rx Instructions: Before meals ezetimibe 10 mg tablet 10 mg PO QHS guaifenesin [Mucinex] 1,200 mg tablet extended release 12hr 1,200 mg PO BID Stiolto Respimat 2.5-2.5 mcg/actuation mist 2 inh inhalation DAILY methocarbamol 750 mg tablet 750 mg PO TID PRN (Reason: Muscle Relaxer) Rx Instructions: for neck pain sucralfate [Carafate] 100 mg/mL suspension 1 g PO BID cholecalciferol (vitamin D3) 25 mcg (1,000 unit) tablet 25 mcg PO DAILY Primary Care Provider: Arnulfo Rascon Referrals: Arnulfo Rascon MD [Primary Care Provider] - Print Language: Latvian Disposition Disposition: Acute Care Hospital Discharge Location: [facility]
--- NOTE | 2023-12-12 17:56 | EKG12_ITS ---
Test Reason : Blood Pressure : / mmHG Vent. Rate : 104 BPM Atrial Rate : 104 BPM P-R Int : 196 ms QRS Dur : 084 ms QT Int : 336 ms P-R-T Axes : 069 -61 063 degrees QTc Int : 441 ms Sinus tachycardia Left axis deviation Abnormal ECG Confirmed by TOMÁS DENA, DORINA ([id number]), content editor IVANNA NEWMAN ([id number]) on 12/15/2023 1:51:19 PM Referred By: Wing Patel Confirmed By:DORINA ENGLAND MD
[2023-12-12] MEDS: Morphine 2 MG/ML Syringe IV (18:13)
[2023-12-12] MEDS: Ondansetron 4 MG/2 ML Vial IV (18:14)
[2023-12-12] MEDS: 0.9% Normal Saline (500mL Bag) 500 ML 1000 ML IV (18:14)
[2023-12-12] MEDS: Piperacil/Tazobactam 3.375 GM in 0.9% Normal Saline (50mL MB+) 50 ML IV (18:42)
[2023-12-12 18:47] LABS: Mucous, Urine 0 SEEN /hpf (<or=2+); Red Blood Cells-Urine 0 SEEN /hpf (0-5); White Blood Cells 0 SEEN /hpf (0-5)
--- NOTE | 2023-12-12 18:47 | ED.RN ---
THIS NURSE WENT TO PAUSE INFUSING ANTIBIOTICS FROM TCU TO ADMINISTER PT PAIN MEDICATION. THE PUMP WAS LOCKED AND REQUESTING A CODE. THIS NURSE DID NOT HAVE ACCESS TO THE CODE. THIS NURSE TURNED THE PT PUMP OFF TO INFUSE PT PAIN MEDS. WHEN PAIN MEDS WERE IN AND THE LINE WAS FLUSHED THIS NURSE ATTEMPTED TO RESUME ANTIBIOTICS. DUE TO THE CODE IT WOULD NOT LET THIS NURSE. PER DR. MARTINEZ, THE ANTIBIOTIC WAS ORDERED SO PT CAN CONTINUE TO RECEIVE ANTIBIOTIC THERAPY.
[2023-12-12 18:54] LABS: AST(SGOT) 131 U/L (15-37); Alanine Aminotransfer ALT/SGPT 138 U/L (16-61); Albumin, Serum 3.3 g/dL (3.2-5.0); Alkaline Phosphatase 176 U/L (45-117); Bilirubin, Direct 1.31 mg/dL (0.00-0.30); Globulin 3.6 g/dL (2.2-4.2); Lipase 675 U/L (13-75); Protein, Total 6.9 g/dL (6.4-8.2); Troponin-I HS 9 pg/mL (3.0-78.0)
[2023-12-12 18:55] LABS: Color, Urine Yellow (Yellow); Glucose, Dipstick 1000 mg/dl (Normal); Ketone-Dipstick 15 mg/dl (Negative); Leukocyte Esterase-Dipstick Negative /ul (Negative); Nitrite-Dipstick Negative (Negative); Occult Blood-Urine 10 /ul (Negative); Protein-Dipstick 30 mg/dl (Negative); Urine Bilirubin Dipstick Negative (Negative); Urine Clarity Clear (Clear); Urine Urobilinogen Normal (Normal)
[2023-12-12 19:07] LABS: Squamous Epithelial Cells - UA 0-5 SEEN /hpf (0-5)
[2023-12-12 19:08] LABS: Bacteria 1+ /hpf (None Seen)
--- NOTE | 2023-12-12 19:08 | CT_ITS ---
EXAM: CT ABDOMEN AND PELVIS WITH INTRAVENOUS CONTRAST CLINICAL INDICATION: Abdominal pain, n/v r/o perforation or obstruction TECHNIQUE: Helically acquired images were obtained of the abdomen and pelvis with intravenous contrast. This CT exam was performed using one or more of the following dose reduction techniques: automated exposure control, adjustment of the mA and/or kV according to patient size, and/or use of iterative reconstruction technique. RADIATION DOSE: CTDIvol = 15.99 mGy, DLP = 869.93 mGy-cmContrast: IV 100mL [id number] COMPARISON: Unenhanced chest including much of the upper abdomen December 10, 2023. Ultrasound today showing pericholecystic fluid, distended gallbladder, 7 mm estimated gallbladder wall, 5 mm common duct. FINDINGS: LOWER THORAX: Marked calcification or stent in left main coronary artery and moderate-marked coronary artery calcifications or stents in left anterior descending, circumflex and proximal right coronary artery. Thin-walled cystic structure in the anterior left lower lobe is partially included. No significant pericardial effusion. No confluent alveolar infiltrates. Normal heart size, not fully included. No intracardiac filling defect. Increased interstitial markings. ABDOMEN: LIVER: Unremarkable. Homogeneous. No focal mass. GALLBLADDER AND BILE DUCTS: The distal common duct is 7 mm without visible filling defect. No calcified gallstones. Prominent gallbladder distention of 4.6 cm AP and over 11 cm in length with a thick rim of surrounding edema and slight enhancing mucosa. PANCREAS: Hazy soft tissue stranding proximal pancreas and adjacent duodenum. Pancreas otherwise appears mildly atrophic. SPLEEN: Slight fluid in the bilateral iliac fossa and pelvis. Mild splenomegaly, 13 cm craniocaudal. ADRENALS: Unremarkable. No nodules. KIDNEYS AND URETERS: Unremarkable. Normal renal size and position. No hydronephrosis. STOMACH AND BOWEL: Moderate stool in the proximal right colon. Collapsed segments of hepatic flexure and proximal to mid transverse colon. Moderate stool in the distal transverse colon and splenic flexure. Mild scattered stool in the distal colon, only slight gas stool in the rectum. Moderate diverticulosis of descending and sigmoid colon and splenic flexure, no evidence of acute diverticulitis. Mild diverticulosis of the hepatic flexure. No stomach or bowel distention. There is a duodenal diverticulum versus nonperforated ulcer of 3.1 cm x 3.9 cm projecting medially from the distal third part of the duodenum, mild surrounding haziness, projecting posterior on axial images, this is not the epicenter of the inflammation. PELVIS: APPENDIX: No evidence of acute appendicitis. Not identified. BLADDER: Unremarkable. REPRODUCTIVE: Unremarkable as visualized. No mass. ABDOMEN and PELVIS: INTRAPERITONEAL SPACE: Unremarkable. No ascites or other fluid collection. No free air. BONES/JOINTS: Mild degenerative spine changes. No suspicious lytic or blastic abnormality. SOFT TISSUES: There is new moderate hazy soft tissue stranding around the duodenum, proximal pancreas, gallbladder, and edema along the right anterior pararenal fascial plane extending to the level of the pelvis. Markedly distended gallbladder, it was not included on the recent CT but is at least 4.6 cm AP with mildly enhancing wall and a rim of surrounding soft tissue stranding and edema. Patent main portal vein and branches. Mild fat-containing inguinal hernias, greater on the left. No visible peptic ulcer. VASCULATURE: Atherosclerotic calcifications of aortoiliac vessels, no aneurysm or dissection. LYMPH NODES: There are a few mildly prominent enhancing lymph nodes in the peripancreatic region. Branches. Stranding in the body of the pancreas. Atrophic appearing pancreas. Mildly prominent right groin lymph node of 1.9 cm x 1.1 cm. TUBES, LINES AND DEVICES: PICC line tip slightly in the right atrium. CT/Abdomen/Pelvis W IV Cont ONLY IMPRESSION: 1. Marked inflammation and edema surrounding prominently distended gallbladder, second and proximal third parts of duodenum, and adjacent to the proximal pancreas. Moderate fluid extending along the right greater than left anterior pararenal fascial planes. Mild fluid in the lower abdomen and trace fluid in the pelvis. 2. Findings may be due to marked acute acalculous cholecystitis and suspected associated early pancreatitis. Cannot exclude marked duodenitis but this is likely secondary to adjacent inflammation. 4 cm exophytic diverticulum, less likely nonperforated ulcer, projecting medially and posteriorly from the distal third part of the duodenum, not the epicenter of the inflammatory changes. 3. Extensive periportal edema around patent main portal vein and hepatic artery. No visible peptic ulcer or discrete drainable abscess. No free air. No gallbladder wall pneumatosis. 4. Moderate diverticulosis. Mild fat-containing hernias. Mild splenomegaly. Advanced coronary artery calcifications or stents. Electronically Signed: Tamika Contreras MD at 21:50 EDT ,
--- NOTE | 2023-12-12 19:14 | US_ITS ---
EXAM: US ABDOMEN LIMITED, RIGHT UPPER QUADRANT CLINICAL INDICATION: RUQ TTP, elevated liver enzymes TECHNIQUE: Real-time ultrasound of the right upper quadrant with image documentation. COMPARISON: No relevant prior studies available. FINDINGS: LIVER: Heterogeneous, no focal, mildly right portal triads may be due to hepatitis. Liver 15.8 cm oblique craniocaudal measurement. Patent visualized hepatic veins, IVC, main portal vein. No focal hepatic lesion. No intrahepatic biliary ductal dilation. GALLBLADDER: Prominently distended, roughly 4.9 cm x 10 cm with mild pericholecystic fluid and estimated 7 mm wall at the fundus. Positive sonographic Mena''s sign. COMMON BILE DUCT: Unremarkable as visualized. 5 mm near the jordan, not seen distally. The proximal common bile duct is within normal limits for the patient''s age. PANCREAS: Not well seen, there appears to be mildly echogenic proximal pancreas, possibly with slight peripancreatic fluid. RIGHT KIDNEY: 10.1 cm x 5.3 cm x 5.3 cm. There is no hydronephrosis. No shadowing calculus. 1.4 cm x 1.5 cm cyst in the pelvis. No perinephric collection is demonstrated. US/Gallbladder IMPRESSION: Prominently distended gallbladder with wall thickening, pericholecystic fluid and a positive sonographic Mena''s sign. Findings highly consistent with acute acalculous cholecystitis in the appropriate clinical setting. There is much more extensive periportal the gallbladder inflammation and edema on CT likely associated mild pancreatitis. Electronically Signed: Tamika Contreras MD at 21:55 EDT ,
--- NOTE | 2023-12-12 19:20 | RAD_ITS ---
We are attempting to reach an attending provider to discuss findings. An addendum with communication details will be sent when the communication is complete. EXAM: XR CHEST, 1 VIEW CLINICAL INDICATION: hypoxia TECHNIQUE: Frontal view of the chest. COMPARISON: December 09, 2023 April 28, 2023, CT chest December 10 2023 described further decrease in size of a known pulmonary abscess in the left upper lobe. On review it is possibly in the superior segment of the left lower lobe abutting major fissure. FINDINGS: LUNGS AND PLEURAL SPACES: Nodular focus in the left mid-upper lung field is not as well seen, there are surrounding increased opacities more superior and inferior lung and mild elevation of the left hemidiaphragm. No pneumothorax. No effusion. HEART: Unremarkable. Normal heart size. MEDIASTINUM: Central airways and mediastinal contour are unremarkable. BONES/JOINTS: Unremarkable. No acute fracture. SOFT TISSUES: Unremarkable. TUBES, LINES AND DEVICES: Right upper extremity PICC line catheter tip at the distal SVC or slightly in the right atrium. OTHER FINDINGS: No free intraperitoneal air. RAD/Chest 1 View (Portable) IMPRESSION: Increased patchy opacities in the left lung superior and inferior to the known discrete masslike focus seen on multiple prior exams and mild decreased left lung volume. Possibly worsening pneumonia surrounding known abscess. Electronically Signed: Tamika Contreras MD at 22:00 EDT ,
[2023-12-12] MEDS: Morphine 4 MG/ML Syringe IV (22:25)
[2023-12-12 23:24] LABS: Lactic Acid 1.2 mmol/L (0.4-1.9)
[2023-12-13] VITALS: BP 114/71; PULSE 105; RESP 20; TEMP 36.7; O2SAT 91
[2023-12-13] MEDS: Dofetilide 250 MCG Capsule PO (00:21)
[2023-12-13] MEDS: APIXABAN 5 MG TABLET PO (00:22)
[2023-12-13] MEDS: LORazepam 0.5 MG Tablet PO (00:22)
[2023-12-13 01:00] VITALS: BP 107/70; PULSE 102; RESP 25; TEMP 36.7; O2SAT 93
[2023-12-13 02:00] VITALS: BP 101/57; PULSE 78; RESP 16; TEMP 37.2; O2SAT 94
[2023-12-13] MEDS: HYDROmorphone 0.5 MG/0.5 ML SYRINGE IV (02:15)
[2023-12-13 02:26] VITALS: BP 101/67; PULSE 78; RESP 16; TEMP 37.2; O2SAT 94
--- NOTE | 2023-12-13 02:47 | ED.RN ---
This RN gave RN to RN report to PANCHO Prescott at [facility].
== END 2023-12-13 02:51 | disposition short-term general hospital (02) ==
PROVIDERS: Emergency Provider Emergency Medicine; PCP Family Medicine; Referring Provider Emergency Medicine; Visit Provider Emergency Medicine
DX: K81.0 Acute cholecystitis (principal); J44.9 Chronic obstructive pulmonary disease, unspecified; I48.0 Paroxysmal atrial fibrillation; I25.10 Atherosclerotic heart disease of native coronary artery without angina pectoris; E80.6 Other disorders of bilirubin metabolism; E78.5 Hyperlipidemia, unspecified; Z79.01 Long term (current) use of anticoagulants; Z79.51 Long term (current) use of inhaled steroids; Z79.899 Other long term (current) drug therapy; Z87.891 Personal history of nicotine dependence
CPT/HCPCS: 36592; 71045; 74177; 76705; 80076; 81001; 83605; 83690; 84484; 93005; 96361; 96365; 96375; 96376; 99285; Q9967; A4216; J2405

== ENCOUNTER 2023-12-23 20:13 | Inpatient (IN) | payer MEDICARE, SELFPAY ==
[2023-12-23 20:02] VITALS: BP 111/61; PULSE 83; RESP 18; TEMP 36.2; O2SAT 96
[2023-12-23 20:13] VITALS: BMI 24.8
--- NOTE | 2023-12-23 20:18 | NURSING ---
per pt. and daughter patient up to date on all vaccines when educated, patient decline flu and pneumococcal vaccine at this time
[2023-12-23 20:26] VITALS: BMI 24.8
--- NOTE | 2023-12-23 21:24 | HP.PCM_ITS ---
HPI - General General Date of Admission: 12/23/23 Date of Service: 12/24/23 Chief Complaint: Here for rehabilitation. HPI Narrative 12/12/2023 ELIO DORAN, is a 83 Male who presents to [facility] ED with acalculous cholecystitis. Transfer to [facility]. 12/12/2023 Admit to [facility]. 12/14/2023 Abdominal pain improved. Consult IR for percutaneous cholecystostomy tube placement. NPO/IV fluids. Pain/nausea control. Not surgical candidate for cholecystectomy. 12/14/2023 Zosyn, Vancomycin IV, ID consult, General Surgery consult. GI consult. 12/14/2023 ID recommended Zosyn IV. 12/17/2023 Fluid culture grew enterococcus Faecium, Total Bili normal, LFT normal. VRE bacteremia, ID recommended Daptomycin. Lung abscess decreased in size on Zosyn IV. 12/18/2023 Not surgical candidate. Cholecystostomy tube dislodged. 12/20/2023 Plan IR replace cholecystostomy tube after holding Eliquis for 2 days. 12/16/2023 blood culture negative to date. Continue Daptomycin for VRE bacteremia. Normal saline 250mL IV for hyponatremia. Pre-CERT for TCU. 12/23/2023 Admit to TCU with debility, here for rehabilitation, strengthening, prior to discharge home with . [facility] Medical History Pulmonary fibrosis Sinus node dysfunction HFrEF (heart failure with reduced ejection fraction) Chronic diarrhea Retroperitoneal hematoma Atherosclerotic heart disease of [place] coronary artery without angina pectoris Obstructive sleep apnea Hyperlipidemia SVT (supraventricular tachycardia) GERD (gastroesophageal reflux disease) COPD (chronic obstructive pulmonary disease) BPH (benign prostatic hyperplasia) Paroxysmal atrial fibrillation Home Medications ?Medication ?Instructions ?Recorded ?Last Taken ?Type rosuvastatin 5 mg tablet (Crestor) 5 mg PO QDAY cholesterol 07/04/17 10/24/23 History cholecalciferol (vitamin D3) 25 25 mcg PO DAILY supplement 05/22/21 10/24/23 History mcg (1,000 unit) tablet metoprolol succinate 25 mg 25 mg PO DAILY AFIB 06/27/21 12/12/23 History tablet,extended release 24 hr nitroglycerin 0.4 mg sublingual 0.4 mg sublingual Q5M PRN CP 06/27/21 Unknown History tablet cyanocobalamin (vitamin B-12) 100 mcg IM QMONTH supplement 03/29/23 10/17/23 History 1,000 mcg/mL injection kit dofetilide 250 mcg capsule 250 mcg PO Q12H afib 03/29/23 12/12/23 History duloxetine 60 mg capsule,delayed See Rx Instructions PO DAILY mood 03/29/23 10/24/23 History release empagliflozin 25 mg tablet 12.5 mg PO DAILY heart 03/29/23 10/24/23 History (Jardiance) finasteride 5 mg tablet 5 mg PO DAILY bph 03/29/23 10/24/23 History levalbuterol HCl 0.63 mg/3 mL 0.63 mg inhalation TID copd 03/29/23 10/24/23 History solution for nebulization midodrine 5 mg tablet 5 mg PO TID blood pressure 03/29/23 10/24/23 History vit C 250 mg-vit E 200 unit-zinc 1 cap PO DAILY supplement 03/29/23 10/24/23 History ox 12.5 [id number] capsule (ICaps AREDS2) budesonide 0.5 mg/2 mL suspension 0.5 mg (2 mL) inhalation BID.RT 04/01/23 10/24/23 Rx for nebulization Asthma #0 mL lorazepam 0.5 mg tablet 0.5 mg PO QHS Anxiety #5 tabs 04/01/23 10/23/23 Rx acetaminophen 500 mg tablet 1,000 mg (2 x 500 mg) PO Q6H PRN 04/10/23 10/23/23 Rx PRN Pain Score 1-3 #0 tabs apixaban 5 mg tablet (Eliquis) 5 mg PO BID BLOOD THINNER #0 tabs 04/10/23 12/12/23 Rx bumetanide 0.5 mg tablet 1 mg (2 x 0.5 mg) PO MOWEFR EDEMA 04/10/23 11/18/23 Rx #0 tabs ezetimibe 10 mg tablet 10 mg PO QHS cholesterol 10/24/23 Unknown History guaifenesin 1,200 mg tablet, 1,200 mg PO BID mucus relief 10/24/23 Unknown History extended release 12 hr (Mucinex) pantoprazole 40 mg tablet,delayed 40 mg PO DAILY GERD 10/24/23 Unknown History release tiotropium 2.5 mcg-olodaterol 2.5 2 inh inhalation DAILY COPD 10/24/23 Unknown History mcg/actuation mist for inhalation (Stiolto Respimat) methocarbamol 750 mg tablet 750 mg PO BID Muscle Relaxer 11/20/23 Unknown History sucralfate 100 mg/mL oral 1 g PO BID antacid 11/20/23 Unknown History suspension (Carafate) Lactobacillus acidophilus, 1 packet PO TIDCM supplement 12/23/23 Unknown History bulgaricus 100 million cell granules packet (Floranex) daptomycin 1,000 mg/100 mL in 0.9 700 mg IV DAILY antibiotics 12/23/23 12/23/23 History % sodium chlor intravenous piggyback nystatin 100,000 unit/mL oral 500,000 unit PO TID thrush 12/23/23 Unknown History suspension oxycodone 5 mg capsule 5 mg PO Q6H PRN pain 12/23/23 Unknown History piperacillin-tazobactam 3.375 gram 3.375 g IV Q6H antibiotic 12/23/23 12/23/23 17:30 History intravenous solution sodium chloride 1,000 mg soluble 1,000 mg PO TID sodium 12/23/23 Unknown History tablet tamsulosin 0.4 mg capsule 0.8 mg PO DINNER bph 12/23/23 Unknown History Allergy/AdvReac Type Severity Reaction Status Date / Time tramadol Allergy Unknown PT UNSURE Verified 11/20/23 15:52 OF REACTION clindamycin AdvReac Intermediate Rash Verified 11/21/23 11:51 terbinafine AdvReac Intermediate Rash Verified 11/21/23 11:51 Family History Mother , Age 64 from Emphysema COPD (chronic obstructive pulmonary disease) Blood disorder Father No problems noted. Surgical History S/P ablation of atrial fibrillation History of left heart catheterization (05/27/21) History of tonsillectomy History of ankle surgery History of back surgery History of appendectomy History of inguinal hernia repair History of umbilical hernia repair Social History household members: spouse housing: house Smoking Status: Former smoker how long ago did patient quit smokin years ago alcohol intake: current alcohol intake frequency: holidays/special occasions only substance use type: does not use caffeine: Yes Type: coffee Number of servings: 2 ROS Constitutional Constitutional: Denies chills, fever(s) or weight gain ENT HEENT: Denies headache(s), nasal congestion or nasal discharge Cardiovascular Cardiovascular: Denies chest pain or palpitations Respiratory/Chest Respiratory/Chest: Denies cough, excessive phlegm production or shortness of breath with exertion Gastrointestinal Gastrointestinal: Denies abdominal pain, nausea or vomiting Genitourinary Genitourinary: Denies dysuria Musculoskeletal Musculoskeletal: Denies joint pain or joint swelling Integumentary Integumentary: Denies rash or wounds Neurologic Neurologic: Denies focal weakness, numbness or tingling Psychiatric Psychiatric: Denies anxiety, auditory hallucinations, depression, homicidal ideation or suicidal ideation Vital Signs Vital Signs Vital Signs: Weight Weight: 74.1 kg Body Mass Index (BMI) 24.8 Physical Exam Const alert General Appearance: cooperative HEENT normocephalic Eyes PERRL and EOMs intact bilaterally Neck supple, no JVD and no carotid bruits Resp normal respiratory effort, normal air movement and clear to auscultation bilaterally Cardio regular rate and regular rhythm GI normal to inspection, nondistended, normoactive bowel sounds, non-tender and non-distended GI Narrative: Cholecystostomy tube right upper quadrant.. Extremity normal capillary refill Extremity Narrative: RUE PICC line. General Extremity: Negative for edema Skin no rashes or lesions noted General Skin Exam: no breakdown Psych affect normal Appearance: appropriate Assessment & Plan Assessment/Plan (1) Debility: (2) Acalculous cholecystitis: (3) VRE bacteremia: (4) Abscess of lung: (5) Emphysema of lung: (6) Atrial fibrillation: (7) Coronary artery disease: (8) (HFpEF) heart failure with preserved ejection fraction: (9) Hyperlipidemia: (10) Depression: (11) BPH (benign prostatic hyperplasia): (12) Muscle spasm: (13) Orthostatic hypotension: (14) GERD (gastroesophageal reflux disease): PLAN: Plan 83 year old male with below past medical history hospitalized for acalculous cholecystitis, treated with cholecystostomy tube, not surgical candidate, complicated by VRE bacteremia, lung abscess, admitted to TCU with debility, here for rehabilitation, strengthening, intravenous antibiotics, prior to disposition determination. * Debility - PT/OT. * Pain - Tylenol 1000mg q6 prn, Oxycodone 5mg q4 prn. * Bowel - senna/colace 1 tablet bid. * Adult immunization - Administer pneumonia vaccine, covid vaccine, flu vaccine as appropriate. * DVT prophylaxis - on Eliquis. * Emphysema of lung - Albuterol 2.5mg neb tid, Incruse 1 puff daily. * Atrial fibrillation - Tikosyn 250mg bid, Eliquis 5mg bid. * Hyperlipidemia - Atorvastatin 10mg qhs, Zetia 10mg daily. * VRE bacteremia - Daptomycin 700g iv q24 thru 01/12/2024. * Depression - Duloxetine 60mg daily, stable chronic prison use, GDR not recommended. * HFpEF - Jardiance 12.5mg daily. * BPH - Finasteride 5mg daily, Tamsulosin 0.8mg daily. * GI prophylaxis - Lactobacillus 1 capsule tidcm. * Anxiety - Lorazepam 0.5mg qhs, stable chronic rn long term care use, GDR not recommended. * Muscle spasm - Robaxin 750mg bid. * Orthostatic hypotension - Midodrine 5mg tid. * Macular Degeneration - Healthy Eyes 1 cap daily. * Coronary artery disease - NTG 0.4mg sl q5m prn. * Thrush - Nystatin 500,000 units po tid x 10 days. * GERD - Pantoprazole 40mg daily Carafate 1g bid. * Lung abscess - Zosyn 3.375gm iv q8 thru 01/01/2024. * Hyponatremia - Sodium chloride 1gm tid thru 12/24/2023.
[2023-12-23 22:30] VITALS: PULSE 76; RESP 20; O2SAT 98
[2023-12-23] MEDS: Albuterol 2.5 MG/3 ML VIAL.NEB. INHALATION (22:30)
[2023-12-23] MEDS: LORazepam 0.5 MG Tablet PO (22:40)
[2023-12-23] MEDS: APIXABAN 5 MG TABLET PO (22:42)
[2023-12-23] MEDS: Methocarbamol 750 MG Tablet PO (22:42)
[2023-12-23] MEDS: Atorvastatin Calcium 10 MG Tablet PO (22:42)
[2023-12-23] MEDS: Sodium Chloride 1 GM Tablet PO (22:43)
[2023-12-23] MEDS: Dofetilide 250 MCG Capsule PO (22:43)
[2023-12-23] MEDS: NYSTATIN 500,000 UNIT/5 ML UDC 500000 UNIT PO (22:45)
--- NOTE | 2023-12-23 22:52 | CPS ---
Patient set up with own PAP machine for the night and 2L bleed.
[2023-12-23] MEDS: Piperacil/Tazobactam 3.375 GM in 0.9% Normal Saline (50mL MB+) 50 ML IV (23:45)
[2023-12-24] VITALS (8 sets, daily range): BP systolic 100; BP diastolic 60–69; PULSE 75–80; RESP 14–18; TEMP 36.3; O2SAT 93–98; BMI 24.9
[2023-12-24] MEDS: oxyCODONE 5 MG Tablet PO (01:39)
[2023-12-24] MEDS: NYSTATIN 500,000 UNIT/5 ML UDC 500000 UNIT PO ×3 (05:16→22:15)
[2023-12-24] MEDS: Sodium Chloride 1 GM Tablet PO ×3 (05:16→22:14)
[2023-12-24] MEDS: Piperacil/Tazobactam 3.375 GM in 0.9% Normal Saline (50mL MB+) 50 ML IV ×3 (06:15→22:37)
[2023-12-24] MEDS: Lactobacillis Acidophilus 1 CAP PO ×3 (09:25→17:47)
[2023-12-24] MEDS: Empagliflozin 25 MG Tablet 12.5 MG PO (09:26)
[2023-12-24] MEDS: Pantoprazole Sodium 40 MG Tablet PO (09:26)
[2023-12-24] MEDS: Umeclidinium Brm/Vilanterol 62.5-25 mcg Inh 1 PUFF INHALATION (09:26)
[2023-12-24] MEDS: APIXABAN 5 MG TABLET PO ×2 (09:27→22:15)
[2023-12-24] MEDS: DULoxetine Hcl 60 MG Capsule PO (09:27)
[2023-12-24] MEDS: Multivitamin (Healthy Eyes) Capsule 1 CAP PO (09:28)
[2023-12-24] MEDS: Methocarbamol 750 MG Tablet PO ×2 (09:28→22:16)
[2023-12-24] MEDS: Midodrine HCl 5 MG Tablet PO ×3 (09:28→17:48)
[2023-12-24] MEDS: Senna/Docusate Sodium 1 Tablet PO ×2 (09:29→22:15)
[2023-12-24] MEDS: Dofetilide 250 MCG Capsule PO ×2 (09:29→22:42)
[2023-12-24] MEDS: Finasteride 5 MG Tablet PO (09:29)
[2023-12-24] MEDS: Tuberculin,Purif.prot.deriv. 50 TU/ML Vial 0.1 ML ID (11:57)
[2023-12-24] MEDS: NORMAL SALINE 0.9% IV (12:28)
[2023-12-24] MEDS: 0.9% Saline Lock 10 ML Syringe IV ×5 (12:28→22:18)
[2023-12-24] MEDS: DAPTOMYCIN IV (12:28)
--- NOTE | 2023-12-24 12:28 | NURSING ---
90cc emptied from gallo drain, flushed w/10cc NS per order. flushed without resistance. pt resting in bed w/eyes closed. call light in reach. daughter at side and would like weight done on stand up scale when therapy gets pt up.
[2023-12-24] MEDS: Albuterol 2.5 MG/3 ML VIAL.NEB. INHALATION (13:30)
--- NOTE | 2023-12-24 13:56 | WOUNDNOTE ---
wound photo: rosalba
--- NOTE | 2023-12-24 14:18 | PCM.PN.DRR ---
Documented by User: Ruben De Leon 12/24/23 14:56 TCU RX Drug Regimen Review Subjective/Objective Subjective/Objective: Subjective: TCU admission note. 83 year old male with below past medical history hospitalized for acalculous cholecystitis, treated with cholecystostomy tube, not surgical candidate, complicated by VRE bacteremia, lung abscess, admitted to TCU with debility, here for rehabilitation, strengthening, intravenous antibiotics, prior to disposition determination. Objective: Allergies tramadol Allergy (Unknown, Verified 11/20/23 15:52) PT UNSURE OF REACTION pt and daughter unsure of reaction clindamycin Adverse Reaction (Intermediate, Verified 11/21/23 11:51) Rash terbinafine Adverse Reaction (Intermediate, Verified 11/21/23 11:51) Rash Current Medications Generic Name Dose Route Start Last Admin Trade Name Freq PRN Reason Stop Dose Admin Acetaminophen 1,000 mg 12/23/23 20:15 Acetaminophen 500 Mg Tablet PO Q6H PRN PRN Pain Score 1-3 Albuterol Sulfate 2.5 mg 12/23/23 22:00 12/24/23 13:30 Albuterol 2.5 Mg/3 Ml Vial.Neb. INHALATION 2.5 mg TID.RT GIOVANNI Administration Apixaban 5 mg 12/23/23 22:00 12/24/23 09:27 Apixaban 5 Mg Tablet PO 5 mg BID GIOVANNI Administration Atorvastatin Calcium 10 mg 12/23/23 22:00 12/23/23 22:42 Atorvastatin Calcium 10 Mg Tablet PO 10 mg QHS GIOVANNI Administration Dofetilide 250 mcg 12/23/23 22:00 12/24/23 09:29 Dofetilide 250 Mcg Capsule PO 250 mcg BID GIOVANNI Administration Duloxetine HCl 60 mg 12/24/23 10:00 12/24/23 09:27 Duloxetine Hcl 60 Mg Capsule PO 60 mg DAILY GIOVANNI Administration Ezetimibe 10 mg 12/23/23 22:00 12/23/23 22:49 Ezetimibe 10 Mg Tablet PO Not Given QHS GIOVANNI Empagliflozin 12.5 mg 12/24/23 08:00 12/24/23 09:26 Empagliflozin 25 Mg Tablet PO 12.5 mg BREAKFAST GIOVANNI Administration Finasteride 5 mg 12/24/23 10:00 12/24/23 09:29 Finasteride 5 Mg Tablet PO 5 mg DAILY GIOVANNI Administration Heparin Sodium (Beef Lung) 50 units 12/23/23 22:58 Heparin Pf Lock 10 Units/Ml 50 Units/5 Ml Syringe IV UD PRN PICC Line Heparin Flush Daptomycin 700 mg/ Sodium 64 mls @ 128 mls/hr 12/24/23 10:00 12/24/23 13:21 Chloride IV 01/12/24 10:29 Infused Q24 GIOVANNI Infusion Piperacillin Sod/Tazobactam 50 mls @ 12.5 mls/hr 12/23/23 22:00 12/24/23 12:28 Sod 3.375 gm/ Sodium Chloride IV 01/01/24 23:59 Infused Q8 GIOVANNI Infusion Sodium Chloride 100 mls @ 15 mls/hr 12/23/23 22:58 IV .Q6H40M PRN Saline Flush Sodium Chloride 100 mls @ 15 mls/hr 12/23/23 22:58 IV .Q6H40M PRN Additional IVPB Infusion Lorazepam 0.5 mg 12/23/23 22:00 12/23/23 22:40 Lorazepam 0.5 Mg Tablet PO 0.5 mg QHS GIOVANNI Administration Methocarbamol 750 mg 12/23/23 22:00 12/24/23 09:28 Methocarbamol 750 Mg Tablet PO 750 mg BID GIOVANNI Administration Midodrine 5 mg 12/24/23 10:00 12/24/23 09:28 Midodrine Hcl 5 Mg Tablet PO 5 mg 1000,1400,1800 GIOVANNI Administration Multivitamins/Minerals 1 cap 12/24/23 10:00 12/24/23 09:28 Multivitamin (Healthy Eyes) Capsule PO 1 cap DAILY GIOVANNI Administration Nitroglycerin 0.4 mg 12/23/23 20:50 Nitroglycerin (Inpatient Use) 0.4 Mg Tab.Subl SL Q5M PRN CARDIAC/CHEST PAIN Nutritional Formula (Lactose Free) 120 ml 12/24/23 07:45 12/24/23 09:25 Ensure Plus High Protein 120 Ml Liquid PO Not Given TIDCM GIOVANNI Nystatin 500,000 unit 12/23/23 22:00 12/24/23 05:16 Nystatin 500,000 Unit/5 Ml Udc PO 01/02/24 22:01 500,000 unit TID GIOVANNI Administration Oxycodone HCl 5 mg 12/23/23 21:48 12/24/23 01:39 Oxycodone 5 Mg Tablet PO 5 mg Q4H PRN PRN Administration PAIN 4-10 Pantoprazole Sodium 40 mg 12/24/23 08:00 12/24/23 09:26 Pantoprazole Sodium 40 Mg Tablet PO 40 mg DAILYCM GIOVANNI Administration Senna/Docusate Sodium 1 tablet 12/23/23 22:00 12/24/23 09:29 Senna/Docusate Sodium 1 Tablet PO 1 tablet BID GIOVANNI Administration Sodium Chloride 10 - 40 ml 12/23/23 19:49 12/24/23 12:28 0.9% Saline Lock 10 Ml Syringe IV 20 ml UD PRN Administration SALINE FLUSH Sodium Chloride 1 gm 12/23/23 22:00 12/24/23 05:16 Sodium Chloride 1 Gm Tablet PO 12/24/23 22:01 1 gm TID GIOVANNI Administration Sodium Chloride 10 - 40 ml 12/23/23 22:58 0.9 % Nacl (Sterile) Posiflush 10 Ml IV UD PRN Port access or dressing change Sodium Chloride 10 - 40 ml 12/23/23 22:58 0.9% Saline Lock 10 Ml Syringe IV UD PRN Open End PICC Flush Sucralfate 1 gm 12/24/23 07:00 12/24/23 07:04 Sucralfate 1 Gm/10 Ml Udc PO 1 gm BID@0600,2200 GIOVANNI Administration Tamsulosin HCl 0.8 mg 12/24/23 17:00 Tamsulosin Hcl 0.4 Mg Capsule PO [facility] Tuberculin PPD 0.1 ml 12/31/23 10:00 Tuberculin,Purif.Prot.Deriv. 50 Tu/Ml Vial ID 12/31/23 10:01 X1 ONE Umeclidinium/Vilanterol 1 puff 12/24/23 10:00 12/24/23 09:26 Umeclidinium Brm/Vilanterol 62.5-25 Mcg Inh INHALATION 1 puff DAILY GIOVANNI Administration Problem List Muscle spasm (Acute) (HFpEF) heart failure with preserved ejection fraction (Acute) Emphysema of lung (Acute) VRE bacteremia (Acute) Acalculous cholecystitis (Acute) Orthostatic hypotension (Acute) Atrial fibrillation (Acute) Abscess of lung (Acute) Coronary artery disease (Acute) BPH (benign prostatic hyperplasia) (Acute) GERD (gastroesophageal reflux disease) (Acute) Depression (Acute) Debility (Acute) Hyperlipidemia (Chronic) Vital Signs Temp Pulse Resp BP Pulse Ox O2 Del Method O2 Flow Rate 97.1 F L 76 18 100/60 98 Room Air 2 12/23/23 20:02 12/24/23 13:28 12/24/23 13:28 12/24/23 09:44 12/24/23 09:44 12/24/23 09:44 12/24/23 12:54 Oxygen Flow Rate (L/min) 2 Oxygen Delivery Method Room Air Weight: 74.1 kg Body Mass Index (BMI) 24.8 Assessment/Plan: 1. Pain: acetaminophen 1000 mg PO Q6H PRN pain, oxycodone 5 mg PO Q4H PRN pain. The patient has used 1 dose of oxycodone and 0 doses of acetaminophen so far this admission. Please continue to monitor pain levels, PRN medication usage, LFTs (AST/ALT = 131/138 U/L on 12/12/23), for constipation, respiratory depression, dizziness/drowsiness, and for syncope/ataxia/falls. 2. Bowel: senna/docusate 1 tablet PO BID. Please continue to monitor for constipation, diarrhea, and for bowel movements (last BM on 12/23/23 per documentation). 3. VRE bacteremia/Lung abscess: Daptomycin 700 mg IV Q24H through 01/12/24, piperacillin/tazobactam 3.375 grams Q8H through 01/01/24. Please continue to monitor for s/s of infection such as fevers (recent temp = 97.1 F), chills, white blood cell counts (WBC = 9.4 K/mm3 on 12/12/23), CPK levels (no recent CPK levels documented), renal function (serum creatinine = 1.06 mg/dL with creatinine clearance = 49 mL/min), and sodium levels (Na = 139 mmol/L on 12/12/23). 4. Atrial fibrillation: dofetilide 250 mcg PO BID, apixaban 5 mg PO BID. Please continue to monitor for s/s of stroke, for shortness of breath, heart rates (recent range = 76-120 beats/min), QTc (recent QTc = 441 ms), potassium levels (K = 3.6 mmol/L on 12/12/23), sodium levels (Na = 139 mmol/L on 12/12/23), renal function (serum creatinine = 1.06 mg/dL with creatinine clearance = 49 mL/min) magnesium levels (Mg =2.0 mg/dL on 03/29/23), for headache, for s/s of bleeding/excessive bruising, hemoglobin levels (Hgb = 11.4 g/dL on 12/12/23), and platelet count (plt = 225 K/mm3 on 12/12/23). 5. Emphysema: albuterol 2.5 mg Inhalation TID, umeclidinium 1 puff daily. Please continue to monitor for shortness of breath, for palpitations, for constipation, dry mouth, dry eyes, and dizziness. 6. Hyperlipidemia: atorvastatin 10 mg PO QHS, ezetimibe 10 mg PO QHS. Please continue to monitor lipid levels (cholesterol = 147 mg/dL with LDL = 89 mg/dL on 04/03/23), LFTs (AST/ALT = 131/138 U/L on 12/12/23), and for myalgias. 7. HFpEF: empagliflozin 12.5 mg PO daily. Please continue to monitor for s/s of a heart failure exacerbation such as shortness of breath and edema, renal function (serum creatinine = 1.06 mg/dL with creatinine clearance = 49 mL/min), for s/s of dehydration, and for s/s of UTI or other genitourinary infections. 8. BPH: finasteride 5 mg PO daily, tamsulosin 0.8 mg PO daily. Please continue to monitor for s/s of urinary retention, urine stream and for s/s of orthostasis (recent blood pressures = 101-146/60-93 mmHg). 9. Orthostatic hypotension: midodrine 5 mg PO BID. Please continue to monitor for s/s of orthostasis (recent blood pressures = 101-146/60-93 mmHg). 10. Thrush: nystatin 500,000 units PO TID through 01/02/24. Please continue to monitor for oral thrush, and nausea. 11. Hyponatremia: sodium chloride 1 gram PO TID through 12/24/23. Please continue to monitor sodium levels (Na = 139 mmol/L on 12/12/23). 12. Muscle spasms: methocarbamol 750 mg PO BID. Please continue to monitor for muscle spasms, dizziness, drowsiness, confusion, sedation, and ataxia. 13. Coronary artery disease: nitroglycerin 0.4 mg PO Q5M PRN chest pain. Please continue to monitor for chest pain and PRN medication usage. 14. GERD: pantoprazole 40 mg PO daily, sucralfate 1 gram PO BID. Please continue to monitor for s/s of GERD, for diarrhea that could indicate clostridium difficile infection, for s/s of bone resorption issues such as fractures, and for constipation. 15. GI prophylaxis: lactobacillus 1 capsule PO TID with meals. Please continue to monitor for diarrhea and abdominal pain. 16. Macular degeneration: healthy eyes 1 capsule PO daily. Please continue to monitor eye health. 17. Nutrition: ensure plus high protein 120 mL PO 4x/day. Please continue to monitor nutritional status. Assessment/Plan for indications treated with psychotropic medications: 1. Depression: duloxetine 60 mg PO daily. Please see provider note regarding stable chronic long-term use GDR not recommended. Please continue to monitor for depression, for SI, LFTs (AST/ALT = 131/138 U/L on 12/12/23), for s/s of serotonin syndrome, sodium levels (Na = 139 mmol/L on 12/12/23), abdominal pain and dry mouth. 2. Anxiety: lorazepam 0.5 mg PO QHS. Please see provider note regarding stable chronic long-term therapy GDR not recommended. Please continue to monitor for s/s of anxiety, drowsiness/dizziness, syncope/ataxia/falls. Medical chart and medication regimen reviewed. The following medication irregularities or issues were identified: NA Date Date of Note:: 12/24/23 Documented by User: Dr. Parrish Shah MD 12/24/23 15:39 TCU RX Drug Regimen Review Provider Comments Provider responsibility Provider Comments to Recommendations by Pharmacy: Agree
[2023-12-24] MEDS: Ensure Plus High Protein 120 ML LIQUID PO ×2 (14:21→17:51)
[2023-12-24] MEDS: Tamsulosin HCl 0.4 MG Capsule 0.8 MG PO (17:47)
[2023-12-24] MEDS: levalbuterol HCL 0.63 MG/3 ML VIAL.NEB INHALATION (18:54)
[2023-12-24] MEDS: Atorvastatin Calcium 10 MG Tablet PO (22:14)
[2023-12-24] MEDS: LORazepam 0.5 MG Tablet PO (22:14)
[2023-12-24] MEDS: guaiFENesin 600 MG Tablet PO (22:16)
[2023-12-24] MEDS: Nystatin Powder 15gm Bottle 1 APPLIC TOPICAL (22:16)
[2023-12-24] MEDS: 0.9% Normal Saline (100mL Bag) 100 ML 15 ML IV (22:27)
[2023-12-24] MEDS: Ezetimibe 10 MG Tablet PO (22:42)
[2023-12-25] VITALS (8 sets, daily range): BP systolic 101–111; BP diastolic 64–68; PULSE 77–91; RESP 16–20; TEMP 36.3–36.6; O2SAT 95–98; BMI 25.0
[2023-12-25] MEDS: NYSTATIN 500,000 UNIT/5 ML UDC 500000 UNIT PO ×3 (05:20→21:30)
[2023-12-25] MEDS: 0.9% Saline Lock 10 ML Syringe IV ×5 (05:21→22:26)
[2023-12-25] MEDS: Piperacil/Tazobactam 3.375 GM in 0.9% Normal Saline (50mL MB+) 50 ML IV ×3 (05:32→22:29)
[2023-12-25] MEDS: oxyCODONE 5 MG Tablet PO (05:58)
[2023-12-25 06:19] LABS: Absolute Lymphocyte Count 1.37 X10^3/uL (0.83-4.51); Absolute Neutrophil Count 10.8 X10^3/uL (2.0-7.7); Basophil# 0.15 X10^3/uL; Eosinophil# 0.39 X10^3/uL; Eosinophils% 2.7 % (0-5); Hematocrit 34.5 % (40-54); Hemoglobin 10.6 g/dL (13.0-16.5); Lymphocyte # 1.37 X10^3/ul (0.83-4.51); Lymphocyte % 9.5 % (19-41); Mean Corp Hgb Conc 30.7 g/dL (32-36); Mean Corpuscular Hgb 29.4 pg (27.0-32.0); Mean Corpuscular Volume 95.8 fL (80-94); Mean Platelet Vol. 9.3 fl (6.2-12.0); Monocyte# 1.14 X10^3/uL; Monocyte% 7.9 % (0-10); NRBC Flagged by Analyzer 0 % (0-5); Neutrophil # 10.79 X10^3/uL (2.7-7.7); Neutrophil % 74.5 % (47-70); Platelet Count 555 K/mm3 (150-450); RBC Distribution Width CV 14.2 % (11.6-14.6); RBC Distribution Width SD 50.3 fl (35.1-43.9); White Blood Count 14.5 K/mm3 (4.4-11.0)
[2023-12-25 06:56] LABS: Anion Gap 5 (5-15); BUN 9 mg/dL (7-18); BUN/Creat Ratio 13.2 RATIO (10-20); Calcium,Total 9.2 mg/dL (8.5-10.1); Chloride 102 mmol/L (98-107); Creatinine, Serum 0.68 mg/dL (0.70-1.30); EST Glomerular Filtration Rate 117 mL/min (>60); Est Glom Filt Rate - Afr Amer 142 mL/min (>60); Estimated Creatinine Clearance 65.31 ml/min; Glucose 111 mg/dL (74-106); Potassium 4.4 mmol/L (3.5-5.1); Sodium Level 135 mmol/L (136-145)
[2023-12-25] MEDS: Albuterol 2.5 MG/3 ML VIAL.NEB. INHALATION (07:54)
--- NOTE | 2023-12-25 09:19 | NURSING ---
Digital Media Intern Note; Activity Asset: Jer Gandhi has returned to [facility] and remains independent in his choice of daily activities. He prefers to be called Skip. His family, friends and anabaptist will visits and bring him items he may need. Skip will read, watch tv, work on word puzzles and welcomes visits from the manufacturing controller and therapy dog when available. Staff will encourage social activities, remind him of weekly activities and respect his right to say no.
[2023-12-25] MEDS: APIXABAN 5 MG TABLET PO ×2 (10:51→21:30)
[2023-12-25] MEDS: Lactobacillis Acidophilus 1 CAP PO ×3 (10:52→17:29)
[2023-12-25] MEDS: Empagliflozin 25 MG Tablet 12.5 MG PO (10:52)
[2023-12-25] MEDS: Methocarbamol 750 MG Tablet PO ×2 (10:53→21:30)
[2023-12-25] MEDS: Multivitamin (Healthy Eyes) Capsule 1 CAP PO (10:53)
[2023-12-25] MEDS: guaiFENesin 600 MG Tablet PO ×2 (10:53→21:30)
[2023-12-25] MEDS: Dofetilide 250 MCG Capsule PO ×2 (10:54→21:30)
[2023-12-25] MEDS: Finasteride 5 MG Tablet PO (10:54)
[2023-12-25] MEDS: DULoxetine Hcl 60 MG Capsule PO (10:54)
[2023-12-25] MEDS: Pantoprazole Sodium 40 MG Tablet PO (10:55)
[2023-12-25] MEDS: Senna/Docusate Sodium 1 Tablet PO ×2 (10:55→21:30)
[2023-12-25] MEDS: DAPTOMYCIN IV (11:00)
[2023-12-25] MEDS: NORMAL SALINE 0.9% IV (11:00)
[2023-12-25] MEDS: Ensure Plus High Protein 120 ML LIQUID PO ×3 (11:02→17:35)
[2023-12-25] MEDS: Umeclidinium Brm/Vilanterol 62.5-25 mcg Inh 1 PUFF INHALATION (11:08)
[2023-12-25] MEDS: Nystatin Powder 15gm Bottle 1 APPLIC TOPICAL ×2 (11:09→21:30)
--- NOTE | 2023-12-25 13:03 | CHAPLAIN ---
Type of Pastoral Visit _x__ Initial Visit ___ Follow-up Visit ___ On-call Visit ___ General Patient Visit ___ Spiritual Assessment ___ Family Conference ___ Bereavement ___ Rapid Response ___ Code Blue ___ Other (describe below) Pastoral Care Referral From _x__ Patient _x__ Family ___ Nurse ___ Physician ___ [place] Operator ___ Interlibrary Loan Specialist ___ Other (describe below) Sacrament/Intervention _x__ Active listening ___ Anointing ___ Synagogue ___ Bereavement ___ Communion ___ Nannette exploration ___ ___ Life review ___ Prayer ___ Reconciliation ___ Sacrament of Sick _x__ Supportive presence ___ Wedding ___ Other (describe below) Pastoral Comments patient is back again after a time away in another hospital; pt is sleeping in his chair even as several family members are in the room and talking; spouse is one of the family members present and 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
[2023-12-25] MEDS: levalbuterol HCL 0.63 MG/3 ML VIAL.NEB INHALATION ×2 (13:20→19:53)
[2023-12-25] MEDS: Tamsulosin HCl 0.4 MG Capsule 0.8 MG PO (17:31)
[2023-12-25] MEDS: LORazepam 0.5 MG Tablet PO (21:29)
[2023-12-25] MEDS: Ezetimibe 10 MG Tablet PO (21:30)
[2023-12-25] MEDS: Atorvastatin Calcium 10 MG Tablet PO (21:30)
--- NOTE | 2023-12-25 21:51 | CPS ---
[2144] Pt. taken off 2L NC at this time for overnight trend. Pt. is currently watching MLB playoffs & wishes to be placed on his BiPAP unit a little later.
[2023-12-25] MEDS: 0.9% Normal Saline (100mL Bag) 100 ML 15 ML IV (22:41)
--- NOTE | 2023-12-25 23:01 | CPS ---
[2251] Pt. placed on his CPAP (+7) at this time. Pt.'s oxygen was 93% with HR of 91.
--- NOTE | 2023-12-26 00:07 | NURSING ---
Cholecystomy tube flushed with 10ml NS per order.
[2023-12-26] MEDS: NYSTATIN 500,000 UNIT/5 ML UDC 500000 UNIT PO ×3 (05:59→22:55)
[2023-12-26] MEDS: 0.9% Saline Lock 10 ML Syringe IV ×4 (05:59→22:56)
[2023-12-26 06:00] VITALS: RESP 16; O2SAT 95; BMI 25.0
[2023-12-26] MEDS: Piperacil/Tazobactam 3.375 GM in 0.9% Normal Saline (50mL MB+) 50 ML IV ×3 (06:00→22:57)
[2023-12-26 06:49] LABS: Absolute Lymphocyte Count 1.15 X10^3/uL (0.83-4.51); Absolute Neutrophil Count 9.3 X10^3/uL (2.0-7.7); Basophil# 0.12 X10^3/uL; Eosinophils% 3.2 % (0-5); Hematocrit 32.2 % (40-54); Lymphocyte # 1.15 X10^3/ul (0.83-4.51); Lymphocyte % 9.2 % (19-41); Mean Corp Hgb Conc 31.1 g/dL (32-36); Mean Corpuscular Hgb 29.9 pg (27.0-32.0); Mean Corpuscular Volume 96.1 fL (80-94); Mean Platelet Vol. 9.1 fl (6.2-12.0); Monocyte# 1.06 X10^3/uL; Monocyte% 8.5 % (0-10); NRBC Flagged by Analyzer 0 % (0-5); Neutrophil # 9.25 X10^3/uL (2.7-7.7); Neutrophil % 74.3 % (47-70); Platelet Count 491 K/mm3 (150-450); RBC Distribution Width CV 14.4 % (11.6-14.6); RBC Distribution Width SD 50.7 fl (35.1-43.9); Red Blood Count 3.35 M/mm3 (4.6-6.2); White Blood Count 12.5 K/mm3 (4.4-11.0)
[2023-12-26 07:14] LABS: Anion Gap 6 (5-15); BUN 10 mg/dL (7-18); BUN/Creat Ratio 16.2 RATIO (10-20); Calcium,Total 8.9 mg/dL (8.5-10.1); Chloride 101 mmol/L (98-107); Creatinine, Serum 0.62 mg/dL (0.70-1.30); EST Glomerular Filtration Rate 131 mL/min (>60); Est Glom Filt Rate - Afr Amer 159 mL/min (>60); Estimated Creatinine Clearance 65.31 ml/min; Glucose 108 mg/dL (74-106); Sodium Level 133 mmol/L (136-145)
[2023-12-26 07:30] VITALS: PULSE 83; RESP 18; O2SAT 92
--- NOTE | 2023-12-26 07:31 | NURSING ---
Cholecystectomy tube flushed with 10ml NS per order. Drainage blood-tinged, 100ml output.
[2023-12-26] MEDS: levalbuterol HCL 0.63 MG/3 ML VIAL.NEB INHALATION ×2 (07:58→13:21)
[2023-12-26] MEDS: Lactobacillis Acidophilus 1 CAP PO ×3 (09:21→17:41)
[2023-12-26] MEDS: Ensure Plus High Protein 120 ML LIQUID PO ×4 (09:21→23:19)
[2023-12-26] MEDS: Pantoprazole Sodium 40 MG Tablet PO (09:22)
[2023-12-26] MEDS: Empagliflozin 25 MG Tablet 12.5 MG PO (09:22)
[2023-12-26] MEDS: Umeclidinium Brm/Vilanterol 62.5-25 mcg Inh 1 PUFF INHALATION (09:22)
[2023-12-26] MEDS: Multivitamin (Healthy Eyes) Capsule 1 CAP PO (09:23)
[2023-12-26] MEDS: DULoxetine Hcl 60 MG Capsule PO (09:23)
[2023-12-26] MEDS: APIXABAN 5 MG TABLET PO ×2 (09:23→22:54)
[2023-12-26] MEDS: guaiFENesin 600 MG Tablet PO ×2 (09:24→22:54)
[2023-12-26] MEDS: Senna/Docusate Sodium 1 Tablet PO ×2 (09:24→22:55)
[2023-12-26] MEDS: Finasteride 5 MG Tablet PO (09:24)
[2023-12-26] MEDS: Methocarbamol 750 MG Tablet PO ×2 (09:24→22:54)
[2023-12-26] MEDS: Dofetilide 250 MCG Capsule PO ×2 (09:25→22:55)
[2023-12-26] MEDS: Nystatin Powder 15gm Bottle 1 APPLIC TOPICAL ×2 (09:28→22:55)
[2023-12-26 10:00] VITALS: BMI 25.0
[2023-12-26 10:59] VITALS: O2SAT 98
[2023-12-26] MEDS: oxyCODONE 5 MG Tablet PO (11:47)
[2023-12-26] MEDS: NORMAL SALINE 0.9% IV (12:11)
[2023-12-26] MEDS: DAPTOMYCIN IV (12:11)
[2023-12-26 12:24] VITALS: O2SAT 95
[2023-12-26 13:12] VITALS: BP 102/62; PULSE 79; RESP 18; TEMP 36.4; O2SAT 97
[2023-12-26 13:42] VITALS: PULSE 89; RESP 18
[2023-12-26] MEDS: Midodrine HCl 5 MG Tablet PO (14:44)
[2023-12-26] MEDS: Tamsulosin HCl 0.4 MG Capsule 0.8 MG PO (17:41)
--- NOTE | 2023-12-26 19:40 | NURSING ---
Cholecystostomy bag emptied of blood tinged yellow drainage. 110ml emptied.
[2023-12-26] MEDS: LORazepam 0.5 MG Tablet PO (22:54)
[2023-12-26] MEDS: Atorvastatin Calcium 10 MG Tablet PO (22:54)
[2023-12-26] MEDS: Ezetimibe 10 MG Tablet PO (22:56)
[2023-12-27] VITALS (7 sets, daily range): BP systolic 91–110; BP diastolic 52–69; PULSE 80–90; RESP 18–24; TEMP 36.3; O2SAT 91–98; BMI 25.0
[2023-12-27] MEDS: 0.9% Saline Lock 10 ML Syringe IV ×4 (03:36→22:23)
[2023-12-27] MEDS: NYSTATIN 500,000 UNIT/5 ML UDC 500000 UNIT PO ×3 (06:31→22:22)
[2023-12-27] MEDS: Piperacil/Tazobactam 3.375 GM in 0.9% Normal Saline (50mL MB+) 50 ML IV ×3 (06:32→22:29)
[2023-12-27] MEDS: levalbuterol HCL 0.63 MG/3 ML VIAL.NEB INHALATION ×3 (07:45→19:32)
[2023-12-27] MEDS: Ensure Plus High Protein 120 ML LIQUID PO ×3 (08:55→17:34)
[2023-12-27] MEDS: Lactobacillis Acidophilus 1 CAP PO ×3 (08:55→17:52)
[2023-12-27] MEDS: Empagliflozin 25 MG Tablet 12.5 MG PO (08:59)
[2023-12-27] MEDS: Pantoprazole Sodium 40 MG Tablet PO (08:59)
[2023-12-27] MEDS: Multivitamin (Healthy Eyes) Capsule 1 CAP PO (09:00)
[2023-12-27] MEDS: Methocarbamol 750 MG Tablet PO ×2 (09:00→22:22)
[2023-12-27] MEDS: DULoxetine Hcl 60 MG Capsule PO (09:00)
[2023-12-27] MEDS: Umeclidinium Brm/Vilanterol 62.5-25 mcg Inh 1 PUFF INHALATION (09:00)
[2023-12-27] MEDS: APIXABAN 5 MG TABLET PO ×2 (09:00→22:24)
[2023-12-27] MEDS: Dofetilide 250 MCG Capsule PO ×2 (09:01→22:26)
[2023-12-27] MEDS: guaiFENesin 600 MG Tablet PO ×2 (09:01→22:22)
[2023-12-27] MEDS: Finasteride 5 MG Tablet PO (09:01)
[2023-12-27] MEDS: Senna/Docusate Sodium 1 Tablet PO ×2 (09:01→22:23)
[2023-12-27] MEDS: Nystatin Powder 15gm Bottle 1 APPLIC TOPICAL ×2 (09:02→22:27)
[2023-12-27] MEDS: NORMAL SALINE 0.9% IV (10:00)
[2023-12-27] MEDS: DAPTOMYCIN IV (10:00)
[2023-12-27] MEDS: Midodrine HCl 5 MG Tablet PO (17:52)
[2023-12-27] MEDS: Tamsulosin HCl 0.4 MG Capsule 0.8 MG PO (17:52)
[2023-12-27] MEDS: Ezetimibe 10 MG Tablet PO (22:22)
[2023-12-27] MEDS: Atorvastatin Calcium 10 MG Tablet PO (22:22)
[2023-12-27] MEDS: LORazepam 0.5 MG Tablet PO (22:24)
[2023-12-28 06:00] VITALS: BMI 24.5
[2023-12-28 06:30] VITALS: PULSE 100; RESP 18; O2SAT 94
[2023-12-28] MEDS: Albuterol 2.5 MG/3 ML VIAL.NEB. INHALATION (06:30)
[2023-12-28 06:40] VITALS: O2SAT 96
[2023-12-28] MEDS: 0.9% Saline Lock 10 ML Syringe IV ×3 (06:44→22:17)
[2023-12-28] MEDS: Piperacil/Tazobactam 3.375 GM in 0.9% Normal Saline (50mL MB+) 50 ML IV ×3 (06:45→22:27)
[2023-12-28] MEDS: NYSTATIN 500,000 UNIT/5 ML UDC 500000 UNIT PO ×3 (06:45→22:11)
[2023-12-28] MEDS: Pantoprazole Sodium 40 MG Tablet PO (08:00)
[2023-12-28] MEDS: Lactobacillis Acidophilus 1 CAP PO ×3 (08:00→17:41)
[2023-12-28] MEDS: Empagliflozin 25 MG Tablet 12.5 MG PO (08:01)
[2023-12-28 10:00] VITALS: BMI 24.5
[2023-12-28] MEDS: Umeclidinium Brm/Vilanterol 62.5-25 mcg Inh 1 PUFF INHALATION (10:07)
[2023-12-28] MEDS: Multivitamin (Healthy Eyes) Capsule 1 CAP PO (10:08)
[2023-12-28] MEDS: guaiFENesin 600 MG Tablet PO ×2 (10:08→22:11)
[2023-12-28] MEDS: DULoxetine Hcl 60 MG Capsule PO (10:08)
[2023-12-28] MEDS: Methocarbamol 750 MG Tablet PO ×2 (10:08→22:11)
[2023-12-28] MEDS: Nystatin Powder 15gm Bottle 1 APPLIC TOPICAL ×2 (10:08→22:12)
[2023-12-28] MEDS: APIXABAN 5 MG TABLET PO ×2 (10:08→22:11)
[2023-12-28] MEDS: Finasteride 5 MG Tablet PO (10:09)
[2023-12-28] MEDS: Dofetilide 250 MCG Capsule PO ×2 (10:09→22:12)
[2023-12-28] MEDS: Senna/Docusate Sodium 1 Tablet PO ×2 (10:09→22:12)
[2023-12-28] MEDS: DAPTOMYCIN IV (10:11)
[2023-12-28] MEDS: NORMAL SALINE 0.9% IV (10:11)
[2023-12-28] MEDS: Ensure Plus High Protein 120 ML LIQUID PO (11:48)
[2023-12-28 12:42] VITALS: BP 116/75; PULSE 88; RESP 16; TEMP 37.2; O2SAT 98
[2023-12-28] MEDS: levalbuterol HCL 0.63 MG/3 ML VIAL.NEB INHALATION (12:47)
[2023-12-28 12:49] VITALS: PULSE 88; RESP 18
[2023-12-28 13:23] VITALS: O2SAT 96
[2023-12-28 13:56] VITALS: O2SAT 97
[2023-12-28] MEDS: Midodrine HCl 5 MG Tablet PO (14:22)
[2023-12-28] MEDS: Tamsulosin HCl 0.4 MG Capsule 0.8 MG PO (17:41)
[2023-12-28] MEDS: LORazepam 0.5 MG Tablet PO (22:10)
[2023-12-28] MEDS: Arthritis Pain Compound 60 CLICK TUBE TOPICAL (22:10)
[2023-12-28] MEDS: Atorvastatin Calcium 10 MG Tablet PO (22:11)
[2023-12-28] MEDS: Ezetimibe 10 MG Tablet PO (22:12)
[2023-12-28] MEDS: 0.9% Normal Saline (100mL Bag) 100 ML 15 ML IV (22:27)
[2023-12-28] MEDS: Acetaminophen 500 MG Tablet 1000 MG PO (23:04)
[2023-12-29] VITALS (8 sets, daily range): BP systolic 93–112; BP diastolic 50–69; PULSE 69–102; RESP 16–18; TEMP 36.3; O2SAT 96; BMI 24.6
--- NOTE | 2023-12-29 01:37 | NURSING ---
Cholecystectomy tube flushed per order on 12/28/23 at HS. Drainage blood-tinged, clear.
[2023-12-29] MEDS: 0.9% Saline Lock 10 ML Syringe IV ×2 (05:42→22:06)
[2023-12-29] MEDS: Ensure Plus High Protein 120 ML LIQUID PO ×4 (05:42→22:06)
[2023-12-29] MEDS: Acetaminophen 500 MG Tablet 1000 MG PO (05:49)
[2023-12-29] MEDS: Piperacil/Tazobactam 3.375 GM in 0.9% Normal Saline (50mL MB+) 50 ML IV ×3 (05:56→22:15)
[2023-12-29] MEDS: levalbuterol HCL 0.63 MG/3 ML VIAL.NEB INHALATION ×3 (07:00→19:59)
[2023-12-29] MEDS: Methocarbamol 750 MG Tablet PO ×2 (08:05→22:08)
[2023-12-29] MEDS: Pantoprazole Sodium 40 MG Tablet PO (08:05)
[2023-12-29] MEDS: guaiFENesin 600 MG Tablet PO ×2 (08:05→22:08)
[2023-12-29] MEDS: APIXABAN 5 MG TABLET PO ×2 (08:05→22:08)
[2023-12-29] MEDS: DULoxetine Hcl 60 MG Capsule PO (08:05)
[2023-12-29] MEDS: Lactobacillis Acidophilus 1 CAP PO ×3 (08:05→17:43)
[2023-12-29] MEDS: Multivitamin (Healthy Eyes) Capsule 1 CAP PO (08:06)
[2023-12-29] MEDS: Dofetilide 250 MCG Capsule PO ×2 (08:06→22:09)
[2023-12-29] MEDS: Empagliflozin 25 MG Tablet 12.5 MG PO (08:06)
[2023-12-29] MEDS: Finasteride 5 MG Tablet PO (08:06)
[2023-12-29] MEDS: Senna/Docusate Sodium 1 Tablet PO ×2 (08:07→22:09)
[2023-12-29] MEDS: Umeclidinium Brm/Vilanterol 62.5-25 mcg Inh 1 PUFF INHALATION (08:07)
[2023-12-29] MEDS: Arthritis Pain Compound 60 CLICK TUBE TOPICAL ×2 (08:07→22:07)
[2023-12-29] MEDS: Nystatin Powder 15gm Bottle 1 APPLIC TOPICAL ×2 (08:08→22:08)
[2023-12-29] MEDS: DAPTOMYCIN IV (10:39)
[2023-12-29] MEDS: NORMAL SALINE 0.9% IV (10:39)
[2023-12-29] MEDS: Menthol/Lanolin/Calamine/Znox 113 GM Tube 1 APPLIC TOPICAL (10:44)
[2023-12-29] MEDS: Midodrine HCl 5 MG Tablet PO (13:27)
[2023-12-29] MEDS: Tamsulosin HCl 0.4 MG Capsule 0.8 MG PO (17:43)
[2023-12-29] MEDS: LORazepam 0.5 MG Tablet PO (22:06)
[2023-12-29] MEDS: Atorvastatin Calcium 10 MG Tablet PO (22:08)
[2023-12-29] MEDS: Ezetimibe 10 MG Tablet PO (22:09)
[2023-12-29] MEDS: 0.9% Normal Saline (100mL Bag) 100 ML 15 ML IV (22:15)
[2023-12-30] VITALS (8 sets, daily range): BP systolic 109–112; BP diastolic 58–66; PULSE 81–96; RESP 14–21; TEMP 36.4; O2SAT 94–99; BMI 24.8
[2023-12-30] MEDS: Menthol/Lanolin/Calamine/Znox 113 GM Tube 1 APPLIC TOPICAL ×3 (00:33→22:04)
--- NOTE | 2023-12-30 02:41 | NURSING ---
Cholecystectomy tube flushed per order. Drainage is clear and tinted brown.
[2023-12-30] MEDS: Ensure Plus High Protein 120 ML LIQUID PO ×4 (06:04→22:03)
[2023-12-30] MEDS: 0.9% Saline Lock 10 ML Syringe IV ×3 (06:07→22:03)
[2023-12-30] MEDS: Piperacil/Tazobactam 3.375 GM in 0.9% Normal Saline (50mL MB+) 50 ML IV ×3 (06:11→22:03)
[2023-12-30 06:13] LABS: ALB/GLOB Ratio 0.6 RATIO (0.9-2.4); AST(SGOT) 18 U/L (15-37); Alanine Aminotransfer ALT/SGPT 21 U/L (16-61); Albumin, Serum 2.4 g/dL (3.2-5.0); Alkaline Phosphatase 142 U/L (45-117); Anion Gap 6 (5-15); BUN 10 mg/dL (7-18); BUN/Creat Ratio 13.9 RATIO (10-20); Calcium,Total 9.2 mg/dL (8.5-10.1); Chloride 100 mmol/L (98-107); Creatinine, Serum 0.72 mg/dL (0.70-1.30); EST Glomerular Filtration Rate 111 mL/min (>60); Est Glom Filt Rate - Afr Amer 134 mL/min (>60); Estimated Creatinine Clearance 65.31 ml/min; Globulin 3.9 g/dL (2.2-4.2); Glucose 117 mg/dL (74-106); Potassium 3.9 mmol/L (3.5-5.1); Protein, Total 6.3 g/dL (6.4-8.2); Sodium Level 134 mmol/L (136-145)
[2023-12-30] MEDS: levalbuterol HCL 0.63 MG/3 ML VIAL.NEB INHALATION ×3 (07:50→18:22)
[2023-12-30] MEDS: Acetaminophen 500 MG Tablet 1000 MG PO (07:54)
[2023-12-30] MEDS: Lactobacillis Acidophilus 1 CAP PO ×3 (07:55→17:59)
[2023-12-30] MEDS: Empagliflozin 25 MG Tablet 12.5 MG PO (07:55)
[2023-12-30] MEDS: guaiFENesin 600 MG Tablet PO ×2 (07:55→22:06)
[2023-12-30] MEDS: Methocarbamol 750 MG Tablet PO ×2 (07:56→22:06)
[2023-12-30] MEDS: Dofetilide 250 MCG Capsule PO ×2 (07:56→22:07)
[2023-12-30] MEDS: Senna/Docusate Sodium 1 Tablet PO ×2 (07:56→22:06)
[2023-12-30] MEDS: DULoxetine Hcl 60 MG Capsule PO (07:56)
[2023-12-30] MEDS: Multivitamin (Healthy Eyes) Capsule 1 CAP PO (07:56)
[2023-12-30] MEDS: Pantoprazole Sodium 40 MG Tablet PO (07:57)
[2023-12-30] MEDS: Arthritis Pain Compound 60 CLICK TUBE TOPICAL ×2 (07:58→22:04)
[2023-12-30] MEDS: APIXABAN 5 MG TABLET PO ×2 (07:59→22:05)
[2023-12-30] MEDS: Finasteride 5 MG Tablet PO (08:00)
[2023-12-30] MEDS: Nystatin Powder 15gm Bottle 1 APPLIC TOPICAL ×2 (08:00→22:06)
--- NOTE | 2023-12-30 08:34 | NURSING ---
Called insurance for auth for CT chest no contrast. No auth needed for these CPT & ICD codes. Last 4 of reference #[id number].
--- NOTE | 2023-12-30 08:37 | NURSING ---
Pet Technologist Note; MDS for 12/30/2023 Complete
--- NOTE | 2023-12-30 09:46 | CASEMGMT ---
Social Work- SW met with pt to complete MDS. Pt BIMS . Pt PHQ9 0/. Pt reports that he is doing as well as I can and was observed to be pleasant and cooperative in our meeting. SW remains available to follow. KAITLYN Christopher
[2023-12-30] MEDS: Umeclidinium Brm/Vilanterol 62.5-25 mcg Inh 1 PUFF INHALATION (10:52)
[2023-12-30] MEDS: DAPTOMYCIN IV (11:10)
[2023-12-30] MEDS: NORMAL SALINE 0.9% IV (11:10)
--- NOTE | 2023-12-30 11:11 | CASEMGMT ---
Social Work IDT met with patient and dtr for care plan meeting. Discussed patient's progress in PT/OT/SN. Educated to [facility] with NRD 12/31, EDC 01/08, however, pt is on IV ATB through 01/11. Dtr explained goal is for pt to have consult with [facility] surgeon on recommendations if pt is surgery candidate with improved condition. Dr. Shah is aware of request and nursing is communicating with dtr on plan. Dtr would like pt to return home, but has her list of requests prior to. SW will continue to be available and assist with DC planning. Peyton Simmons, CLINICAL NURSE REVIEWER AGRICULTURE INSTRUCTOR
[2023-12-30] MEDS: Tamsulosin HCl 0.4 MG Capsule 0.8 MG PO (17:59)
[2023-12-30] MEDS: LORazepam 0.5 MG Tablet PO (22:03)
[2023-12-30] MEDS: Atorvastatin Calcium 10 MG Tablet PO (22:05)
[2023-12-30] MEDS: Ezetimibe 10 MG Tablet PO (22:06)
[2023-12-31] VITALS (7 sets, daily range): BP systolic 104–124; BP diastolic 58–78; PULSE 82–95; RESP 14–19; TEMP 36.1; O2SAT 96–97
--- NOTE | 2023-12-31 00:28 | CPS ---
2 l/m added to pt own cpap machine per nursing-states pt daughter was concerned of low sats during the night.
[2023-12-31] MEDS: 0.9% Saline Lock 10 ML Syringe IV ×2 (05:43→15:08)
[2023-12-31] MEDS: Piperacil/Tazobactam 3.375 GM in 0.9% Normal Saline (50mL MB+) 50 ML IV ×3 (05:44→22:03)
[2023-12-31 05:48] LABS: Absolute Lymphocyte Count 1.07 X10^3/uL (0.83-4.51); Absolute Neutrophil Count 7.6 X10^3/uL (2.0-7.7); Basophil# 0.15 X10^3/uL; Basophil% 1.4 % (0-1); Eosinophil# 0.49 X10^3/uL; Eosinophils% 4.7 % (0-5); Hematocrit 32.2 % (40-54); Hemoglobin 10.2 g/dL (13.0-16.5); Lymphocyte # 1.07 X10^3/ul (0.83-4.51); Lymphocyte % 10.2 % (19-41); Mean Corp Hgb Conc 31.7 g/dL (32-36); Mean Corpuscular Hgb 30.1 pg (27.0-32.0); Mean Platelet Vol. 9.1 fl (6.2-12.0); Monocyte# 1.08 X10^3/uL; Monocyte% 10.3 % (0-10); NRBC Flagged by Analyzer 0 % (0-5); Neutrophil # 7.55 X10^3/uL (2.7-7.7); Neutrophil % 71.8 % (47-70); Platelet Count 407 K/mm3 (150-450); RBC Distribution Width CV 14.6 % (11.6-14.6); Red Blood Count 3.39 M/mm3 (4.6-6.2); White Blood Count 10.5 K/mm3 (4.4-11.0)
[2023-12-31] MEDS: Ensure Plus High Protein 120 ML LIQUID PO ×3 (05:51→22:15)
[2023-12-31 06:41] LABS: Anion Gap 6 (5-15); BUN 13 mg/dL (7-18); BUN/Creat Ratio 18.7 RATIO (10-20); Calcium,Total 8.9 mg/dL (8.5-10.1); Chloride 102 mmol/L (98-107); EST Glomerular Filtration Rate 114 mL/min (>60); Est Glom Filt Rate - Afr Amer 138 mL/min (>60); Estimated Creatinine Clearance 65.31 ml/min; Glucose 123 mg/dL (74-106); Sodium Level 135 mmol/L (136-145)
[2023-12-31] MEDS: Lactobacillis Acidophilus 1 CAP PO ×3 (08:29→17:41)
[2023-12-31] MEDS: Empagliflozin 25 MG Tablet 12.5 MG PO (08:30)
[2023-12-31] MEDS: Umeclidinium Brm/Vilanterol 62.5-25 mcg Inh 1 PUFF INHALATION (08:31)
[2023-12-31] MEDS: Pantoprazole Sodium 40 MG Tablet PO (08:31)
[2023-12-31] MEDS: Arthritis Pain Compound 60 CLICK TUBE TOPICAL ×2 (08:32→22:07)
[2023-12-31] MEDS: Menthol/Lanolin/Calamine/Znox 113 GM Tube 1 APPLIC TOPICAL ×2 (08:33→22:04)
[2023-12-31] MEDS: Multivitamin (Healthy Eyes) Capsule 1 CAP PO (08:35)
[2023-12-31] MEDS: Senna/Docusate Sodium 1 Tablet PO ×2 (08:35→22:06)
[2023-12-31] MEDS: Methocarbamol 750 MG Tablet PO ×2 (08:36→22:05)
[2023-12-31] MEDS: Nystatin Powder 15gm Bottle 1 APPLIC TOPICAL ×2 (08:36→22:07)
[2023-12-31] MEDS: DULoxetine Hcl 60 MG Capsule PO (08:36)
[2023-12-31] MEDS: guaiFENesin 600 MG Tablet PO ×2 (08:36→22:05)
[2023-12-31] MEDS: APIXABAN 5 MG TABLET PO ×2 (08:36→22:06)
[2023-12-31] MEDS: Finasteride 5 MG Tablet PO (08:37)
[2023-12-31] MEDS: Acetaminophen 500 MG Tablet 1000 MG PO (08:42)
[2023-12-31] MEDS: Tuberculin,Purif.prot.deriv. 50 TU/ML Vial 0.1 ML ID (09:09)
--- NOTE | 2023-12-31 09:19 | NURSING ---
PT LEFT FLOOR BY WHEEL CHAIR FOR CT AT 0920.
--- NOTE | 2023-12-31 10:22 | NURSING ---
PT RETURNED TO FLOOR BY WHEEL CHAIR FROM CT AT 0945.
[2023-12-31] MEDS: Dofetilide 250 MCG Capsule PO ×2 (10:35→22:05)
[2023-12-31] MEDS: DAPTOMYCIN IV (12:33)
[2023-12-31] MEDS: NORMAL SALINE 0.9% IV (12:33)
[2023-12-31] MEDS: levalbuterol HCL 0.63 MG/3 ML VIAL.NEB INHALATION ×2 (13:50→20:00)
[2023-12-31] MEDS: Tamsulosin HCl 0.4 MG Capsule 0.8 MG PO (17:40)
[2023-12-31] MEDS: LORazepam 0.5 MG Tablet PO (22:03)
[2023-12-31] MEDS: Atorvastatin Calcium 10 MG Tablet PO (22:04)
[2023-12-31] MEDS: Ezetimibe 10 MG Tablet PO (22:04)
[2024-01-01] MEDS: Piperacil/Tazobactam 3.375 GM in 0.9% Normal Saline (50mL MB+) 50 ML IV ×3 (05:27→20:58)
[2024-01-01] MEDS: 0.9% Saline Lock 10 ML Syringe IV ×2 (05:33→11:03)
[2024-01-01 06:00] VITALS: BMI 24.8
[2024-01-01] MEDS: Ensure Plus High Protein 120 ML LIQUID PO ×4 (06:50→21:22)
[2024-01-01 08:14] VITALS: PULSE 90; RESP 16; O2SAT 96
[2024-01-01] MEDS: levalbuterol HCL 0.63 MG/3 ML VIAL.NEB INHALATION ×3 (08:14→19:10)
[2024-01-01] MEDS: Lactobacillis Acidophilus 1 CAP PO ×3 (08:41→17:43)
[2024-01-01] MEDS: Arthritis Pain Compound 60 CLICK TUBE TOPICAL ×2 (08:42→20:55)
[2024-01-01] MEDS: Pantoprazole Sodium 40 MG Tablet PO (08:42)
[2024-01-01] MEDS: Umeclidinium Brm/Vilanterol 62.5-25 mcg Inh 1 PUFF INHALATION (08:42)
[2024-01-01] MEDS: APIXABAN 5 MG TABLET PO ×2 (08:43→20:56)
[2024-01-01] MEDS: Multivitamin (Healthy Eyes) Capsule 1 CAP PO (08:43)
[2024-01-01] MEDS: Methocarbamol 750 MG Tablet PO ×2 (08:43→20:57)
[2024-01-01] MEDS: DULoxetine Hcl 60 MG Capsule PO (08:43)
[2024-01-01] MEDS: Dofetilide 250 MCG Capsule PO ×2 (08:44→20:58)
[2024-01-01] MEDS: Finasteride 5 MG Tablet PO (08:44)
[2024-01-01] MEDS: Senna/Docusate Sodium 1 Tablet PO ×2 (08:44→20:58)
[2024-01-01] MEDS: guaiFENesin 600 MG Tablet PO ×2 (08:44→20:57)
[2024-01-01] MEDS: Empagliflozin 25 MG Tablet 12.5 MG PO (08:45)
[2024-01-01] MEDS: Menthol/Lanolin/Calamine/Znox 113 GM Tube 1 APPLIC TOPICAL ×2 (08:46→20:55)
[2024-01-01] MEDS: Nystatin Powder 15gm Bottle 1 APPLIC TOPICAL ×2 (08:47→20:57)
[2024-01-01 10:00] VITALS: BMI 24.8
--- NOTE | 2024-01-01 10:34 | MDS.RN ---
Information for the MDS was obtained from review of the clinical record, interview of resident, staff, and direct observation of resident?s care.
[2024-01-01] MEDS: NORMAL SALINE 0.9% IV (10:56)
[2024-01-01] MEDS: DAPTOMYCIN IV (10:56)
[2024-01-01] MEDS: Midodrine HCl 5 MG Tablet PO (13:05)
[2024-01-01 13:35] VITALS: PULSE 95; RESP 16; O2SAT 93
[2024-01-01 15:14] VITALS: BP 96/65; PULSE 85; RESP 19; TEMP 36.1; O2SAT 94
[2024-01-01] MEDS: Tamsulosin HCl 0.4 MG Capsule 0.8 MG PO (17:43)
[2024-01-01 17:46] VITALS: BP 117/69
--- NOTE | 2024-01-01 18:08 | NURSING ---
Daughter stated she has been in contact with Dr. Donald regarding pt's lung abscess. She stated that she asked him to review CT and let her know if he would like to see the pt. Dr. Shah updated and stated if indicated, may consult Dr. Donald for pulmonary. Pt c/o intermittent nausea and new order for prn zofran. Daughter asking for a repeat overnight pulse ox and reports resident has dry mouth during cpap use at and can only tolerate wearing it for a couple of hours. Daughter states she feels it is due to his O2 bleed. Resident refusing to have sleep study done and RT updated on pt concerns and reported that they did an overnight pulse ox on 12/25 and pt had episodes of desaturation during the night. Resident on continuous oxygen during the day at this time. RT states that another overnight pulse ox is not indicated at this time and recommends a sleep study. RT recommended getting order to change humidification orders on cpap. Daughter updated and she stated she was still awaiting return call from Dr. Donald but would speak with his office and discuss changing the humidification orders and let TCU staff know what they want to do.
[2024-01-01 19:10] VITALS: PULSE 84; RESP 18; O2SAT 98
[2024-01-01] MEDS: Atorvastatin Calcium 10 MG Tablet PO (20:57)
[2024-01-01] MEDS: Ezetimibe 10 MG Tablet PO (20:58)
[2024-01-01] MEDS: 0.9 % NaCl (Sterile) Posiflush 10 mL IV (20:59)
[2024-01-01] MEDS: LORazepam 0.5 MG Tablet PO (21:04)
[2024-01-01] MEDS: Saliva Substitute 237 ML BOTTLE 15 ML MUCOUS MEM (23:48)
[2024-01-02] VITALS (7 sets, daily range): BP systolic 93–114; BP diastolic 68–74; PULSE 74–96; RESP 16–22; TEMP 36.4; O2SAT 94–96
[2024-01-02] MEDS: Ondansetron ODT 4 MG Tablet 8 MG PO ×2 (00:55→22:50)
[2024-01-02] MEDS: 0.9% Saline Lock 10 ML Syringe IV ×2 (05:29→22:51)
[2024-01-02] MEDS: Piperacil/Tazobactam 3.375 GM in 0.9% Normal Saline (50mL MB+) 50 ML IV ×3 (05:31→23:07)
[2024-01-02] MEDS: Ensure Plus High Protein 120 ML LIQUID PO ×4 (05:34→22:51)
[2024-01-02] MEDS: levalbuterol HCL 0.63 MG/3 ML VIAL.NEB INHALATION ×3 (07:08→18:28)
[2024-01-02] MEDS: Lactobacillis Acidophilus 1 CAP PO ×3 (08:32→17:28)
[2024-01-02] MEDS: Pantoprazole Sodium 40 MG Tablet PO (08:33)
[2024-01-02] MEDS: Empagliflozin 25 MG Tablet 12.5 MG PO (08:33)
[2024-01-02] MEDS: Umeclidinium Brm/Vilanterol 62.5-25 mcg Inh 1 PUFF INHALATION (08:35)
[2024-01-02] MEDS: Arthritis Pain Compound 60 CLICK TUBE TOPICAL ×2 (08:36→22:53)
[2024-01-02] MEDS: Menthol/Lanolin/Calamine/Znox 113 GM Tube 1 APPLIC TOPICAL ×2 (08:37→22:56)
[2024-01-02] MEDS: APIXABAN 5 MG TABLET PO ×2 (08:38→22:53)
[2024-01-02] MEDS: Multivitamin (Healthy Eyes) Capsule 1 CAP PO (08:39)
[2024-01-02] MEDS: Nystatin Powder 15gm Bottle 1 APPLIC TOPICAL ×2 (08:40→22:54)
[2024-01-02] MEDS: Methocarbamol 750 MG Tablet PO ×2 (08:40→22:55)
[2024-01-02] MEDS: guaiFENesin 600 MG Tablet PO ×2 (08:40→22:54)
[2024-01-02] MEDS: Finasteride 5 MG Tablet PO (08:43)
[2024-01-02] MEDS: Senna/Docusate Sodium 1 Tablet PO ×2 (08:43→22:55)
[2024-01-02] MEDS: DULoxetine Hcl 60 MG Capsule PO (08:52)
[2024-01-02] MEDS: Dofetilide 250 MCG Capsule PO ×2 (10:55→22:54)
[2024-01-02] MEDS: DAPTOMYCIN IV (10:59)
[2024-01-02] MEDS: NORMAL SALINE 0.9% IV (10:59)
[2024-01-02] MEDS: Tamsulosin HCl 0.4 MG Capsule 0.8 MG PO (17:28)
[2024-01-02] MEDS: Midodrine HCl 5 MG Tablet PO (17:28)
--- NOTE | 2024-01-02 18:55 | NURSING ---
daughter requesting that general surgery be notified before IV daptomycin done, wanting him to be seen sooner to evaluate his situation. dr frederick updated, new order to consult general surgery on Thursday.
[2024-01-02] MEDS: LORazepam 0.5 MG Tablet PO (22:50)
[2024-01-02] MEDS: Atorvastatin Calcium 10 MG Tablet PO (22:54)
[2024-01-02] MEDS: Ezetimibe 10 MG Tablet PO (22:55)
[2024-01-02] MEDS: 0.9% Normal Saline (100mL Bag) 100 ML 15 ML IV (23:08)
[2024-01-02] MEDS: Saliva Substitute 237 ML BOTTLE 15 ML MUCOUS MEM (23:09)
[2024-01-03] MEDS: Ensure Plus High Protein 120 ML LIQUID PO ×3 (05:05→22:26)
[2024-01-03] MEDS: Piperacil/Tazobactam 3.375 GM in 0.9% Normal Saline (50mL MB+) 50 ML IV ×3 (05:05→22:41)
[2024-01-03] MEDS: 0.9% Saline Lock 10 ML Syringe IV ×4 (05:05→22:27)
[2024-01-03] MEDS: 0.9% Normal Saline (100mL Bag) 100 ML 15 ML IV ×2 (05:14→22:41)
[2024-01-03] MEDS: levalbuterol HCL 0.63 MG/3 ML VIAL.NEB INHALATION ×2 (07:13→18:35)
[2024-01-03 07:15] VITALS: PULSE 80; RESP 18; O2SAT 97
--- NOTE | 2024-01-03 07:44 | NURSING ---
Flushed cholecystectomy tube per order, tube patent and draining well. Drainage is yellow-green color and is clear. Output documented on worklist.
[2024-01-03] MEDS: Lactobacillis Acidophilus 1 CAP PO ×3 (08:19→17:51)
[2024-01-03] MEDS: Empagliflozin 25 MG Tablet 12.5 MG PO (08:20)
[2024-01-03] MEDS: Umeclidinium Brm/Vilanterol 62.5-25 mcg Inh 1 PUFF INHALATION (08:22)
[2024-01-03] MEDS: Arthritis Pain Compound 60 CLICK TUBE TOPICAL ×2 (08:22→22:31)
[2024-01-03] MEDS: Multivitamin (Healthy Eyes) Capsule 1 CAP PO (08:23)
[2024-01-03] MEDS: Nystatin Powder 15gm Bottle 1 APPLIC TOPICAL ×2 (08:23→22:35)
[2024-01-03] MEDS: Methocarbamol 750 MG Tablet PO ×2 (08:23→22:34)
[2024-01-03] MEDS: guaiFENesin 600 MG Tablet PO ×2 (08:23→22:34)
[2024-01-03] MEDS: Dofetilide 250 MCG Capsule PO ×2 (08:24→22:34)
[2024-01-03] MEDS: Senna/Docusate Sodium 1 Tablet PO ×2 (08:24→22:34)
[2024-01-03] MEDS: APIXABAN 5 MG TABLET PO ×2 (08:24→22:33)
[2024-01-03] MEDS: Finasteride 5 MG Tablet PO (08:25)
[2024-01-03] MEDS: Pantoprazole Sodium 40 MG Tablet PO (08:25)
[2024-01-03] MEDS: Menthol/Lanolin/Calamine/Znox 113 GM Tube 1 APPLIC TOPICAL ×2 (08:26→22:32)
[2024-01-03] MEDS: DULoxetine Hcl 60 MG Capsule PO (08:28)
[2024-01-03 08:30] VITALS: BP 103/64; PULSE 74; O2SAT 94
[2024-01-03] MEDS: NORMAL SALINE 0.9% IV (10:58)
[2024-01-03] MEDS: DAPTOMYCIN IV (10:58)
[2024-01-03 11:00] VITALS: BMI 24.7
[2024-01-03 13:10] VITALS: PULSE 88; RESP 18
[2024-01-03 13:13] VITALS: BP 103/65; PULSE 88; RESP 18; TEMP 36.4; O2SAT 96
[2024-01-03 15:10] VITALS: PULSE 88; RESP 18; O2SAT 96
[2024-01-03] MEDS: Tamsulosin HCl 0.4 MG Capsule 0.8 MG PO (17:51)
[2024-01-03 18:35] VITALS: PULSE 83; RESP 16; O2SAT 97
[2024-01-03] MEDS: LORazepam 0.5 MG Tablet PO (22:27)
[2024-01-03] MEDS: Ondansetron ODT 4 MG Tablet 8 MG PO (22:31)
[2024-01-03] MEDS: Acetaminophen 500 MG Tablet 1000 MG PO (22:31)
[2024-01-03] MEDS: Atorvastatin Calcium 10 MG Tablet PO (22:34)
[2024-01-03] MEDS: Ezetimibe 10 MG Tablet PO (22:35)
[2024-01-04] VITALS (7 sets, daily range): BP systolic 103–109; BP diastolic 62–75; PULSE 80–87; RESP 16–18; TEMP 36.2; O2SAT 95–99; BMI 24.7
[2024-01-04] MEDS: 0.9% Saline Lock 10 ML Syringe IV ×3 (04:51→23:32)
[2024-01-04] MEDS: 0.9% Normal Saline (100mL Bag) 100 ML 15 ML IV (04:58)
[2024-01-04] MEDS: Piperacil/Tazobactam 3.375 GM in 0.9% Normal Saline (50mL MB+) 50 ML IV ×3 (05:00→23:35)
--- NOTE | 2024-01-04 05:01 | NURSING ---
Cholecystectomy tube flushed per order with 10ml NS. Drainage clear and yellow-green in color.
[2024-01-04] MEDS: levalbuterol HCL 0.63 MG/3 ML VIAL.NEB INHALATION ×3 (06:51→22:09)
[2024-01-04] MEDS: Umeclidinium Brm/Vilanterol 62.5-25 mcg Inh 1 PUFF INHALATION (09:19)
[2024-01-04] MEDS: Empagliflozin 25 MG Tablet 12.5 MG PO (09:21)
[2024-01-04] MEDS: Lactobacillis Acidophilus 1 CAP PO ×3 (09:21→16:44)
[2024-01-04] MEDS: Ensure Plus High Protein 120 ML LIQUID PO (09:21)
[2024-01-04] MEDS: Pantoprazole Sodium 40 MG Tablet PO (09:22)
[2024-01-04] MEDS: DULoxetine Hcl 60 MG Capsule PO (09:23)
[2024-01-04] MEDS: APIXABAN 5 MG TABLET PO ×2 (09:24→23:28)
[2024-01-04] MEDS: Multivitamin (Healthy Eyes) Capsule 1 CAP PO (09:25)
[2024-01-04] MEDS: Methocarbamol 750 MG Tablet PO ×2 (09:26→23:28)
[2024-01-04] MEDS: guaiFENesin 600 MG Tablet PO ×2 (09:26→23:28)
[2024-01-04] MEDS: Dofetilide 250 MCG Capsule PO ×2 (09:28→23:28)
[2024-01-04] MEDS: Finasteride 5 MG Tablet PO (09:28)
[2024-01-04] MEDS: Senna/Docusate Sodium 1 Tablet PO ×2 (09:28→23:28)
[2024-01-04] MEDS: Nystatin Powder 15gm Bottle 1 APPLIC TOPICAL ×2 (09:29→23:46)
[2024-01-04] MEDS: Menthol/Lanolin/Calamine/Znox 113 GM Tube 1 APPLIC TOPICAL ×2 (09:30→23:45)
[2024-01-04] MEDS: Arthritis Pain Compound 60 CLICK TUBE TOPICAL ×2 (09:31→23:29)
[2024-01-04] MEDS: DAPTOMYCIN IV (11:10)
[2024-01-04] MEDS: NORMAL SALINE 0.9% IV (11:10)
[2024-01-04] MEDS: Midodrine HCl 5 MG Tablet PO (15:30)
[2024-01-04] MEDS: Tamsulosin HCl 0.4 MG Capsule 0.8 MG PO (16:44)
--- NOTE | 2024-01-04 20:09 | CPS ---
pt has stated he isn't feeling well and has not been wearing his own cpap machine for longer than a couple hours. has been wearing his 2 l/m via nc at night. talked to nurse regarding cont pox-needing clarification on what pt should be on during cont pox trend study- pt own cpap? nc 2 l/m ? cont pox cancelled for 01/03
[2024-01-04] MEDS: Alteplase 2 MG/2 ML Vial IV (22:01)
[2024-01-04] MEDS: LORazepam 0.5 MG Tablet PO (23:27)
[2024-01-04] MEDS: Atorvastatin Calcium 10 MG Tablet PO (23:28)
[2024-01-04] MEDS: Ezetimibe 10 MG Tablet PO (23:28)
[2024-01-04] MEDS: Acetaminophen 500 MG Tablet 1000 MG PO (23:34)
[2024-01-04] MEDS: Ondansetron ODT 4 MG Tablet 8 MG PO (23:34)
[2024-01-05 06:00] VITALS: BMI 25.0
[2024-01-05] MEDS: Piperacil/Tazobactam 3.375 GM in 0.9% Normal Saline (50mL MB+) 50 ML IV ×3 (06:26→22:07)
[2024-01-05] MEDS: 0.9% Saline Lock 10 ML Syringe IV ×4 (06:26→21:51)
[2024-01-05] MEDS: Ensure Plus High Protein 120 ML LIQUID PO ×4 (06:29→22:00)
[2024-01-05 07:40] VITALS: PULSE 89; RESP 16; O2SAT 97
[2024-01-05] MEDS: Empagliflozin 25 MG Tablet 12.5 MG PO (07:40)
[2024-01-05] MEDS: Lactobacillis Acidophilus 1 CAP PO ×3 (07:40→17:17)
[2024-01-05] MEDS: Pantoprazole Sodium 40 MG Tablet PO (07:40)
[2024-01-05 08:34] VITALS: BP 106/63; PULSE 85; RESP 18; TEMP 37; O2SAT 96
[2024-01-05] MEDS: Umeclidinium Brm/Vilanterol 62.5-25 mcg Inh 1 PUFF INHALATION (08:37)
[2024-01-05] MEDS: Arthritis Pain Compound 60 CLICK TUBE TOPICAL ×2 (08:37→21:52)
[2024-01-05] MEDS: Methocarbamol 750 MG Tablet PO ×2 (08:38→21:54)
[2024-01-05] MEDS: Dofetilide 250 MCG Capsule PO ×2 (08:38→21:54)
[2024-01-05] MEDS: DULoxetine Hcl 60 MG Capsule PO (08:38)
[2024-01-05] MEDS: APIXABAN 5 MG TABLET PO ×2 (08:39→21:53)
[2024-01-05] MEDS: Finasteride 5 MG Tablet PO (08:39)
[2024-01-05] MEDS: Midodrine HCl 5 MG Tablet PO ×2 (08:39→14:46)
[2024-01-05] MEDS: Multivitamin (Healthy Eyes) Capsule 1 CAP PO (08:39)
[2024-01-05] MEDS: guaiFENesin 600 MG Tablet PO ×2 (08:39→21:54)
[2024-01-05] MEDS: Senna/Docusate Sodium 1 Tablet PO ×2 (08:39→21:54)
[2024-01-05] MEDS: Menthol/Lanolin/Calamine/Znox 113 GM Tube 1 APPLIC TOPICAL ×2 (08:40→21:53)
[2024-01-05] MEDS: Nystatin Powder 15gm Bottle 1 APPLIC TOPICAL ×2 (08:41→21:54)
--- NOTE | 2024-01-05 09:44 | NURSING ---
R' DAUGHTER UPSET/QUESTIONING WHY OVERNIGHT TRENDING PULSE OX WAS NOT COMPLETED. SHE STATES SHE WANTS IT COMPLETED TO SEE HOW R' DOES W/O CPAP, JUST OXYGEN. SHE STATES R' GETS TOO DRIED OUT' WITH BOTH AND ENDS UP REMOVING BOTH SO SHE WANTS TO FIGURE OUT IF HE CAN TOLERATE O2 W/O CPAP.
--- NOTE | 2024-01-05 09:48 | NURSING ---
CALLED [facility] [employer] FOR GENERAL SURGERY CONSULT. STATES SHE WILL PAGE DR SMITH TO CALL UNIT.
[2024-01-05 10:00] VITALS: BMI 25.0
--- NOTE | 2024-01-05 10:10 | NURSING ---
ORDER PLACED FOR OVERNIGHT TRENDING PULSE OX WITH O2. CALLED R.T. TO NOTIFY THEM IT NEEDS TO BE COMPLETED TO CLARIFY CONTINUED USE OF O2 AT HOME.
[2024-01-05] MEDS: NORMAL SALINE 0.9% IV (10:35)
[2024-01-05] MEDS: DAPTOMYCIN IV (10:35)
--- NOTE | 2024-01-05 11:51 | NURSING ---
CARLENE DRAIN FLUSHED WITH 10cc NS PER ORDER. DRAINAGE BAG EMPTIED FOR 150cc CLEAR, YELLOW/GREEN DRAINAGE.
[2024-01-05 13:35] VITALS: PULSE 84; RESP 16
[2024-01-05] MEDS: levalbuterol HCL 0.63 MG/3 ML VIAL.NEB INHALATION ×2 (13:35→19:58)
--- NOTE | 2024-01-05 14:13 | EX.PCM.CON.S ---
Documented by User: Latisha NOLEN PA-C 01/06/24 16:21 Assessment & Plan Assessment/Plan (1) Acalculous cholecystitis: PLAN: I have been consulted in conjunction with Dr. Rich. She will independently evaluate this patient. Patient was evaluated in the ED on 12/13/23 for abdominal pain, nausea and vomiting. He was transferred to [facility] for acute acalculous cholecystitis and evidence of a large gallbladder. Patient had a lisa tube placed by IR at [facility]. Patient was transferred by to [facility] for ongoing rehabilitation. General surgery was consulted as patient has completed his IV antibiotic treatment and TCU wanted to know if the lisa tube can be removed or what the next step would be. Patient is currently note having any abdominal pain. Patient is too high risk for surgical intervention at [facility] secondary to his comorbidities. Patient should continue cholecystostomy for an additional 4-6 weeks. Patient will need to have a follow-up with his surgeon at [facility], Dr. Cuenca to further discuss the plan. Patient was very insistent that we discuss the plan with his daughter, as she would want to know everything we discussed. Dr. Rich will reach out to the patient's daughter to relay the plan. Patient has had the opportunity to ask and have questions answered. Patient verbally understands and agrees with the plan. HPI Consult Data Date of Consult: 01/06/24 HPI Narrative HPI Narrative: ELIO DORAN, is a 83 M who presents to TCU for extended rehabilitation. Patient presented to the ED on 12/13/[address] scan of the ab/pel and RUQ u/s was obtained and demonstrated acute acalculous cholecystitis with evidence of a large gallbladder. It was recommended the patient be transferred to a high-level care facility that had interventional radiology. Patient was transferred to [facility], where he had a cholecystostomy tube placed. Patient had previously been hospitalized and treated with long-term IV antibiotics for a recent lung abscess secondary to COVID pneumonia. Patient is currently on oxygen via nasal canula secondary pulmonary history. Patient denies having any gallbladder concerns previously. He notes when he was up at [facility] they did not want to do surgery and placed the lisa tube. Patient notes he was discharged back to [facility] after a short stay at [facility]. Patient has been established with Dr. Cuenca at [facility], general surgery. Patient has recently completed IV antibiotics and TCU had consulted our service to continue to manage the tube. [facility] Medical History Pulmonary fibrosis Sinus node dysfunction HFrEF (heart failure with reduced ejection fraction) Chronic diarrhea Retroperitoneal hematoma Atherosclerotic heart disease of picayune coronary artery without angina pectoris Obstructive sleep apnea Hyperlipidemia SVT (supraventricular tachycardia) GERD (gastroesophageal reflux disease) COPD (chronic obstructive pulmonary disease) BPH (benign prostatic hyperplasia) Paroxysmal atrial fibrillation Home Medications ?Medication ?Instructions ?Recorded ?Last Taken ?Type rosuvastatin 5 mg tablet (Crestor) 5 mg PO QDAY cholesterol 07/04/17 10/24/23 History cholecalciferol (vitamin D3) 25 25 mcg PO DAILY supplement 05/22/21 10/24/23 History mcg (1,000 unit) tablet metoprolol succinate 25 mg 25 mg PO DAILY AFIB 06/27/21 12/12/23 History tablet,extended release 24 hr nitroglycerin 0.4 mg sublingual 0.4 mg sublingual Q5M PRN CP 06/27/21 Unknown History tablet cyanocobalamin (vitamin B-12) 100 mcg IM QMONTH supplement 03/29/23 10/17/23 History 1,000 mcg/mL injection kit dofetilide 250 mcg capsule 250 mcg PO Q12H afib 03/29/23 12/12/23 History duloxetine 60 mg capsule,delayed See Rx Instructions PO DAILY mood 03/29/23 10/24/23 History release empagliflozin 25 mg tablet 12.5 mg PO DAILY heart 03/29/23 10/24/23 History (Jardiance) finasteride 5 mg tablet 5 mg PO DAILY bph 03/29/23 10/24/23 History levalbuterol HCl 0.63 mg/3 mL 0.63 mg inhalation TID copd 03/29/23 10/24/23 History solution for nebulization midodrine 5 mg tablet 5 mg PO TID blood pressure 03/29/23 10/24/23 History vit C 250 mg-vit E 200 unit-zinc 1 cap PO DAILY supplement 03/29/23 10/24/23 History ox 12.5 vt-urdrzy-lyempr-zeax capsule (ICaps AREDS2) budesonide 0.5 mg/2 mL suspension 0.5 mg (2 mL) inhalation BID.RT 04/01/23 10/24/23 Rx for nebulization Asthma #0 mL lorazepam 0.5 mg tablet 0.5 mg PO QHS Anxiety #5 tabs 04/01/23 10/23/23 Rx acetaminophen 500 mg tablet 1,000 mg (2 x 500 mg) PO Q6H PRN 04/10/23 10/23/23 Rx PRN Pain Score 1-3 #0 tabs apixaban 5 mg tablet (Eliquis) 5 mg PO BID BLOOD THINNER #0 tabs 04/10/23 12/12/23 Rx bumetanide 0.5 mg tablet 1 mg (2 x 0.5 mg) PO MOWEFR EDEMA 04/10/23 11/18/23 Rx #0 tabs ezetimibe 10 mg tablet 10 mg PO QHS cholesterol 10/24/23 Unknown History guaifenesin 1,200 mg tablet, 1,200 mg PO BID mucus relief 10/24/23 Unknown History extended release 12 hr (Mucinex) pantoprazole 40 mg tablet,delayed 40 mg PO DAILY GERD 10/24/23 Unknown History release tiotropium 2.5 mcg-olodaterol 2.5 2 inh inhalation DAILY COPD 10/24/23 Unknown History mcg/actuation mist for inhalation (Stiolto Respimat) methocarbamol 750 mg tablet 750 mg PO BID Muscle Relaxer 11/20/23 Unknown History sucralfate 100 mg/mL oral 1 g PO BID antacid 11/20/23 Unknown History suspension (Carafate) Lactobacillus acidophilus, 1 packet PO TIDCM supplement 12/23/23 Unknown History bulgaricus 100 million cell granules packet (Floranex) daptomycin 1,000 mg/100 mL in 0.9 700 mg IV DAILY antibiotics 12/23/23 12/23/23 History % sodium chlor intravenous piggyback nystatin 100,000 unit/mL oral 500,000 unit PO TID thrush 12/23/23 Unknown History suspension oxycodone 5 mg capsule 5 mg PO Q6H PRN pain 12/23/23 Unknown History piperacillin-tazobactam 3.375 gram 3.375 g IV Q6H antibiotic 12/23/23 12/23/23 17:30 History intravenous solution sodium chloride 1,000 mg soluble 1,000 mg PO TID sodium 12/23/23 Unknown History tablet tamsulosin 0.4 mg capsule 0.8 mg PO DINNER bph 12/23/23 Unknown History Allergy/AdvReac Type Severity Reaction Status Date / Time tramadol Allergy Unknown PT UNSURE Verified 11/20/23 15:52 OF REACTION clindamycin AdvReac Intermediate Rash Verified 11/21/23 11:51 terbinafine AdvReac Intermediate Rash Verified 11/21/23 11:51 Family History Mother , Age 64 from Emphysema COPD (chronic obstructive pulmonary disease) Blood disorder Father No problems noted. Surgical History S/P ablation of atrial fibrillation History of left heart catheterization (05/27/21) History of tonsillectomy History of ankle surgery History of back surgery History of appendectomy History of inguinal hernia repair History of umbilical hernia repair Social History household members: spouse housing: house Smoking Status: Former smoker how long ago did patient quit smokin years ago alcohol intake: current alcohol intake frequency: holidays/special occasions only substance use type: does not use caffeine: Yes Type: coffee Number of servings: 2 ROS Constitutional Constitutional: Reports daytime sleepiness and fatigue Eyes Eyes: Reports systems reviewed and no addt'l complaints, except as documented ENT HEENT: Reports systems reviewed and no addt'l complaints, except as documented Cardiovascular Cardiovascular: Reports systems reviewed and no addt'l complaints, except as documented Respiratory/Chest Respiratory/Chest: Reports portable oxygen @ home and shortness of breath with exertion Gastrointestinal Gastrointestinal: Reports systems reviewed and no addt'l complaints, except as documented Genitourinary Genitourinary: Reports systems reviewed and no addt'l complaints, except as documented Musculoskeletal Musculoskeletal: Reports systems reviewed and no addt'l complaints, except as documented Integumentary Integumentary: Reports systems reviewed and no addt'l complaints, except as documented Neurologic Neurologic: Reports systems reviewed and no addt'l complaints, except as documented Psychiatric Psychiatric: Reports systems reviewed and no addt'l complaints, except as documented Endocrine Endocrinology: Reports systems reviewed and no addt'l complaints, except as documented Hematologic/Lymphatic Hematologic/Lymphatic: Reports systems reviewed and no addt'l complaints, except as documented Allergic/Immunologic Allergic/Immunologic: Reports systems reviewed and no addt'l complaints, except as documented Physical Exam Const alert, oriented x3 and no apparent distress HEENT normocephalic and head/scalp atraumatic Eyes PERRL Neck full ROM Lymph Lymphatic: no lymphadenopathy noted Resp normal respiratory effort Effort and Inspection: able to speak in complete sentences Auscultation: diminished lung sounds Cardio regular rate and regular rhythm GI GI Narrative: Abdomen- obese, nontender. Lisa tube intact with light yellow fluid within the drainage collection system. No RUQ pain. no CVA tenderness Back/Spine no CVA tenderness Extremity full ROM Skin General Skin Exam: ecchymosis and excoriation(s) Neuro no focal motor deficits and no sensory deficits noted Psych mental status grossly normal and thought process normal Lab / Micro Data 12/31/23 05:26 12/31/23 05:26 Charges/Coding Visit Charges Inpatient E&M: 12761 Init Hosp L2 Documented by User: Dr. Darby Rich MD 01/06/24 21:36 Assessment & Plan Assessment/Plan (1) Acalculous cholecystitis: PLAN: Plan Late entry: Patient seen p.m. Patient tolerating diet having bowel function. Patient's cholecystostomy tube draining bilious fluid. Patient is still on antibiotics until end of December. Did also discussed with the patient's daughter. Due to patient's comorbidities would not recommend laparoscopic cholecystectomy here and would recommend tertiary care facility. Patient has not followed up with Dr. Cuenca at [facility] will make appointment. Would recommend continuing cholecystostomy tube for 6 weeks and then would evaluate with cholangiogram via the tube to see if it can be removed. I think patient would benefit from continuing TCU for couple days after discontinuing antibiotics for observation. Also discussed that if patient was truly a calculus cholecystitis or no stones there would be less of a risk of not doing a cholecystectomy after removing the cholangiogram. Patient and his daughter had no further questions time. Okay for patient to follow-up in office if he is not following up with a tertiary facility for possible cholecystostomy tube removal. Darby Rich M.D. Pager: [phone] [facility] [address] [place] [address], [facility], [address] [place] [address] Office: [phone] HPI Consult Data Date of Consult: 01/06/24 [facility] Medical History Pulmonary fibrosis Sinus node dysfunction HFrEF (heart failure with reduced ejection fraction) Chronic diarrhea Retroperitoneal hematoma Atherosclerotic heart disease of picayune coronary artery without angina pectoris Obstructive sleep apnea Hyperlipidemia SVT (supraventricular tachycardia) GERD (gastroesophageal reflux disease) COPD (chronic obstructive pulmonary disease) BPH (benign prostatic hyperplasia) Paroxysmal atrial fibrillation Home Medications ?Medication ?Instructions ?Recorded ?Last Taken ?Type rosuvastatin 5 mg tablet (Crestor) 5 mg PO QDAY cholesterol 07/04/17 10/24/23 History cholecalciferol (vitamin D3) 25 25 mcg PO DAILY supplement 05/22/21 10/24/23 History mcg (1,000 unit) tablet metoprolol succinate 25 mg 25 mg PO DAILY AFIB 06/27/21 12/12/23 History tablet,extended release 24 hr nitroglycerin 0.4 mg sublingual 0.4 mg sublingual Q5M PRN CP 06/27/21 Unknown History tablet cyanocobalamin (vitamin B-12) 100 mcg IM QMONTH supplement 03/29/23 10/17/23 History 1,000 mcg/mL injection kit dofetilide 250 mcg capsule 250 mcg PO Q12H afib 03/29/23 12/12/23 History duloxetine 60 mg capsule,delayed See Rx Instructions PO DAILY mood 03/29/23 10/24/23 History release empagliflozin 25 mg tablet 12.5 mg PO DAILY heart 03/29/23 10/24/23 History (Jardiance) finasteride 5 mg tablet 5 mg PO DAILY bph 03/29/23 10/24/23 History levalbuterol HCl 0.63 mg/3 mL 0.63 mg inhalation TID copd 03/29/23 10/24/23 History solution for nebulization midodrine 5 mg tablet 5 mg PO TID blood pressure 03/29/23 10/24/23 History vit C 250 mg-vit E 200 unit-zinc 1 cap PO DAILY supplement 03/29/23 10/24/23 History ox 12.5 cl-cwzyln-jthbuf-zeax capsule (ICaps AREDS2) budesonide 0.5 mg/2 mL suspension 0.5 mg (2 mL) inhalation BID.RT 04/01/23 10/24/23 Rx for nebulization Asthma #0 mL lorazepam 0.5 mg tablet 0.5 mg PO QHS Anxiety #5 tabs 04/01/23 10/23/23 Rx acetaminophen 500 mg tablet 1,000 mg (2 x 500 mg) PO Q6H PRN 04/10/23 10/23/23 Rx PRN Pain Score 1-3 #0 tabs apixaban 5 mg tablet (Eliquis) 5 mg PO BID BLOOD THINNER #0 tabs 04/10/23 12/12/23 Rx bumetanide 0.5 mg tablet 1 mg (2 x 0.5 mg) PO MOWEFR EDEMA 04/10/23 11/18/23 Rx #0 tabs ezetimibe 10 mg tablet 10 mg PO QHS cholesterol 10/24/23 Unknown History guaifenesin 1,200 mg tablet, 1,200 mg PO BID mucus relief 10/24/23 Unknown History extended release 12 hr (Mucinex) pantoprazole 40 mg tablet,delayed 40 mg PO DAILY GERD 10/24/23 Unknown History release tiotropium 2.5 mcg-olodaterol 2.5 2 inh inhalation DAILY COPD 10/24/23 Unknown History mcg/actuation mist for inhalation (Stiolto Respimat) methocarbamol 750 mg tablet 750 mg PO BID Muscle Relaxer 11/20/23 Unknown History sucralfate 100 mg/mL oral 1 g PO BID antacid 11/20/23 Unknown History suspension (Carafate) Lactobacillus acidophilus, 1 packet PO TIDCM supplement 12/23/23 Unknown History bulgaricus 100 million cell granules packet (Floranex) daptomycin 1,000 mg/100 mL in 0.9 700 mg IV DAILY antibiotics 12/23/23 12/23/23 History % sodium chlor intravenous piggyback nystatin 100,000 unit/mL oral 500,000 unit PO TID thrush 12/23/23 Unknown History suspension oxycodone 5 mg capsule 5 mg PO Q6H PRN pain 12/23/23 Unknown History piperacillin-tazobactam 3.375 gram 3.375 g IV Q6H antibiotic 12/23/23 12/23/23 17:30 History intravenous solution sodium chloride 1,000 mg soluble 1,000 mg PO TID sodium 12/23/23 Unknown History tablet tamsulosin 0.4 mg capsule 0.8 mg PO DINNER bph 12/23/23 Unknown History Allergy/AdvReac Type Severity Reaction Status Date / Time tramadol Allergy Unknown PT UNSURE Verified 11/20/23 15:52 OF REACTION clindamycin AdvReac Intermediate Rash Verified 11/21/23 11:51 terbinafine AdvReac Intermediate Rash Verified 11/21/23 11:51 Family History Mother , Age 64 from Emphysema COPD (chronic obstructive pulmonary disease) Blood disorder Father No problems noted. Surgical History S/P ablation of atrial fibrillation History of left heart catheterization (05/27/21) History of tonsillectomy History of ankle surgery History of back surgery History of appendectomy History of inguinal hernia repair History of umbilical hernia repair Social History household members: spouse housing: house Smoking Status: Former smoker how long ago did patient quit smokin years ago alcohol intake: current alcohol intake frequency: holidays/special occasions only substance use type: does not use caffeine: Yes Type: coffee Number of servings: 2 Lab / Micro Data 12/31/23 05:26 12/31/23 05:26
[2024-01-05 16:25] VITALS: O2SAT 94
[2024-01-05] MEDS: Tamsulosin HCl 0.4 MG Capsule 0.8 MG PO (17:17)
[2024-01-05 19:58] VITALS: PULSE 80; RESP 16
--- NOTE | 2024-01-05 20:33 | NURSING ---
Trending Overnight pulse ox cancelled per family's request. Respiratory recommends sleep study while patient is here d/t SpO2 dropping into 70s with 2L bled into CPAP. Written communication left for Dr. Shah.
[2024-01-05 21:45] VITALS: RESP 18; O2SAT 97
[2024-01-05] MEDS: Acetaminophen 500 MG Tablet 1000 MG PO (21:51)
[2024-01-05] MEDS: LORazepam 0.5 MG Tablet PO (21:52)
[2024-01-05] MEDS: Ezetimibe 10 MG Tablet PO (21:54)
[2024-01-05] MEDS: Atorvastatin Calcium 10 MG Tablet PO (21:54)
[2024-01-05] MEDS: Ondansetron ODT 4 MG Tablet 8 MG PO (21:59)
[2024-01-05] MEDS: 0.9% Normal Saline (100mL Bag) 100 ML 12.5 ML IV (22:08)
[2024-01-06] VITALS (8 sets, daily range): BP systolic 100–108; BP diastolic 57–58; PULSE 62–99; RESP 16–18; TEMP 36.6; O2SAT 94–98; BMI 25.0
[2024-01-06] MEDS: Ensure Plus High Protein 120 ML LIQUID PO ×4 (05:57→21:57)
[2024-01-06] MEDS: 0.9% Saline Lock 10 ML Syringe IV ×4 (05:58→22:04)
[2024-01-06] MEDS: Piperacil/Tazobactam 3.375 GM in 0.9% Normal Saline (50mL MB+) 50 ML IV ×3 (06:01→22:04)
--- NOTE | 2024-01-06 07:30 | NURSING ---
Per Dr. Rich would like pt to follow up with Dr. Merritt Cuenca. Call and make appt.
[2024-01-06] MEDS: levalbuterol HCL 0.63 MG/3 ML VIAL.NEB INHALATION ×3 (08:05→18:40)
[2024-01-06] MEDS: Empagliflozin 25 MG Tablet 12.5 MG PO (08:38)
[2024-01-06] MEDS: Methocarbamol 750 MG Tablet PO ×2 (08:38→22:02)
[2024-01-06] MEDS: Lactobacillis Acidophilus 1 CAP PO ×3 (08:38→16:59)
[2024-01-06] MEDS: guaiFENesin 600 MG Tablet PO ×2 (08:39→22:03)
[2024-01-06] MEDS: Multivitamin (Healthy Eyes) Capsule 1 CAP PO (08:39)
[2024-01-06] MEDS: APIXABAN 5 MG TABLET PO ×2 (08:39→22:02)
[2024-01-06] MEDS: Pantoprazole Sodium 40 MG Tablet PO (08:39)
[2024-01-06] MEDS: DULoxetine Hcl 60 MG Capsule PO (08:39)
[2024-01-06] MEDS: Umeclidinium Brm/Vilanterol 62.5-25 mcg Inh 1 PUFF INHALATION (08:40)
[2024-01-06] MEDS: Dofetilide 250 MCG Capsule PO ×2 (08:40→22:03)
[2024-01-06] MEDS: Senna/Docusate Sodium 1 Tablet 2 TABLET PO ×2 (08:40→22:02)
[2024-01-06] MEDS: Finasteride 5 MG Tablet PO (08:40)
[2024-01-06] MEDS: Arthritis Pain Compound 60 CLICK TUBE TOPICAL ×2 (08:42→22:01)
[2024-01-06] MEDS: Menthol/Lanolin/Calamine/Znox 113 GM Tube 1 APPLIC TOPICAL ×2 (08:42→22:05)
[2024-01-06] MEDS: Nystatin Powder 15gm Bottle 1 APPLIC TOPICAL ×2 (08:43→22:00)
[2024-01-06] MEDS: DAPTOMYCIN IV (10:52)
[2024-01-06] MEDS: NORMAL SALINE 0.9% IV (10:52)
[2024-01-06] MEDS: Tamsulosin HCl 0.4 MG Capsule 0.8 MG PO (16:59)
[2024-01-06] MEDS: Acetaminophen 500 MG Tablet 1000 MG PO (21:59)
[2024-01-06] MEDS: LORazepam 0.5 MG Tablet PO (22:01)
[2024-01-06] MEDS: Atorvastatin Calcium 10 MG Tablet PO (22:03)
[2024-01-06] MEDS: Ezetimibe 10 MG Tablet PO (22:03)
[2024-01-07] VITALS (9 sets, daily range): BP systolic 100–107; BP diastolic 56–64; PULSE 80–104; RESP 16–18; TEMP 36.5; O2SAT 94–98; BMI 25.0
[2024-01-07] MEDS: Piperacil/Tazobactam 3.375 GM in 0.9% Normal Saline (50mL MB+) 50 ML IV ×3 (05:13→21:32)
[2024-01-07] MEDS: 0.9% Saline Lock 10 ML Syringe IV ×4 (05:13→21:31)
[2024-01-07] MEDS: Ensure Plus High Protein 120 ML LIQUID PO ×4 (05:55→21:36)
--- NOTE | 2024-01-07 06:07 | NURSING ---
Gallo drain flushed per order with sterile technique , 110 yellow drainage from gallo bag
[2024-01-07 06:15] LABS: Absolute Lymphocyte Count 1.06 X10^3/uL (0.83-4.51); Absolute Neutrophil Count 7.3 X10^3/uL (2.0-7.7); Basophil# 0.13 X10^3/uL; Basophil% 1.3 % (0-1); Eosinophils% 7.7 % (0-5); Hematocrit 33.2 % (40-54); Hemoglobin 10.5 g/dL (13.0-16.5); Lymphocyte # 1.06 X10^3/ul (0.83-4.51); Lymphocyte % 10.2 % (19-41); Mean Corp Hgb Conc 31.6 g/dL (32-36); Mean Corpuscular Hgb 30.3 pg (27.0-32.0); Mean Corpuscular Volume 95.7 fL (80-94); Mean Platelet Vol. 9.7 fl (6.2-12.0); Monocyte# 0.95 X10^3/uL; Monocyte% 9.2 % (0-10); NRBC Flagged by Analyzer 0 % (0-5); Neutrophil # 7.33 X10^3/uL (2.7-7.7); Neutrophil % 70.5 % (47-70); Platelet Count 308 K/mm3 (150-450); RBC Distribution Width CV 15.2 % (11.6-14.6); RBC Distribution Width SD 53.5 fl (35.1-43.9); Red Blood Count 3.47 M/mm3 (4.6-6.2); White Blood Count 10.4 K/mm3 (4.4-11.0)
[2024-01-07 06:39] LABS: Anion Gap 5 (5-15); BUN 15 mg/dL (7-18); BUN/Creat Ratio 18.9 RATIO (10-20); Calcium,Total 9.2 mg/dL (8.5-10.1); Chloride 102 mmol/L (98-107); Creatinine, Serum 0.79 mg/dL (0.70-1.30); EST Glomerular Filtration Rate 99 mL/min (>60); Est Glom Filt Rate - Afr Amer 119 mL/min (>60); Estimated Creatinine Clearance 65.31 ml/min; Glucose 95 mg/dL (74-106); Potassium 4.1 mmol/L (3.5-5.1); Sodium Level 135 mmol/L (136-145)
[2024-01-07] MEDS: levalbuterol HCL 0.63 MG/3 ML VIAL.NEB INHALATION ×3 (08:07→20:03)
[2024-01-07] MEDS: Lactobacillis Acidophilus 1 CAP PO ×3 (08:43→17:49)
[2024-01-07] MEDS: Pantoprazole Sodium 40 MG Tablet PO (08:44)
[2024-01-07] MEDS: Umeclidinium Brm/Vilanterol 62.5-25 mcg Inh 1 PUFF INHALATION (08:44)
[2024-01-07] MEDS: Empagliflozin 25 MG Tablet 12.5 MG PO (08:44)
[2024-01-07] MEDS: Arthritis Pain Compound 60 CLICK TUBE TOPICAL ×2 (08:46→21:36)
[2024-01-07] MEDS: Menthol/Lanolin/Calamine/Znox 113 GM Tube 1 APPLIC TOPICAL ×2 (08:48→21:38)
[2024-01-07] MEDS: Methocarbamol 750 MG Tablet PO ×2 (08:49→21:38)
[2024-01-07] MEDS: APIXABAN 5 MG TABLET PO ×2 (08:49→21:37)
[2024-01-07] MEDS: DULoxetine Hcl 60 MG Capsule PO (08:49)
[2024-01-07] MEDS: Multivitamin (Healthy Eyes) Capsule 1 CAP PO (08:49)
[2024-01-07] MEDS: guaiFENesin 600 MG Tablet PO ×2 (08:50→21:36)
[2024-01-07] MEDS: Nystatin Powder 15gm Bottle 1 APPLIC TOPICAL ×2 (08:50→21:36)
[2024-01-07] MEDS: Senna/Docusate Sodium 1 Tablet 2 TABLET PO ×2 (08:51→21:38)
[2024-01-07] MEDS: Finasteride 5 MG Tablet PO (08:51)
[2024-01-07] MEDS: Dofetilide 250 MCG Capsule PO ×2 (08:52→21:35)
[2024-01-07] MEDS: 0.9% Normal Saline (500mL Bag) 500 ML 15 ML IV (11:18)
[2024-01-07] MEDS: DAPTOMYCIN IV (11:22)
[2024-01-07] MEDS: NORMAL SALINE 0.9% IV (11:22)
--- NOTE | 2024-01-07 15:19 | NURSING ---
Call from dtr today, she reports that Dr. Donald suggests needle drainage and biopsy. Said Dr. Donald thinks Dr. Ventura could do it. Left note updating Dr. Shah.
[2024-01-07] MEDS: Tamsulosin HCl 0.4 MG Capsule 0.8 MG PO (17:49)
--- NOTE | 2024-01-07 18:11 | NURSING ---
PER ORDER FROM , MAKE APPOINTMENT WITH FOR A CT BIOPSY/DRAINAGE OF LEFT LUNG. THEN DAUGHTER WANTS A APPOINTMENT MADE WITH IN [place] FOR A FOLLOW UP. RN AWARE
[2024-01-07] MEDS: Ondansetron ODT 4 MG Tablet 8 MG PO (20:45)
[2024-01-07] MEDS: LORazepam 0.5 MG Tablet PO (21:31)
[2024-01-07] MEDS: Acetaminophen 500 MG Tablet 1000 MG PO (21:31)
[2024-01-07] MEDS: Atorvastatin Calcium 10 MG Tablet PO (21:36)
[2024-01-07] MEDS: Ezetimibe 10 MG Tablet PO (21:38)
[2024-01-08] VITALS (8 sets, daily range): BP systolic 96–104; BP diastolic 62–64; PULSE 16–87; RESP 16–20; TEMP 36.3; O2SAT 93–98; BMI 25.0
[2024-01-08] MEDS: 0.9% Saline Lock 10 ML Syringe IV ×3 (02:48→22:02)
[2024-01-08] MEDS: Piperacil/Tazobactam 3.375 GM in 0.9% Normal Saline (50mL MB+) 50 ML IV ×3 (06:28→22:03)
[2024-01-08] MEDS: Ensure Plus High Protein 120 ML LIQUID PO ×4 (06:28→22:02)
[2024-01-08] MEDS: levalbuterol HCL 0.63 MG/3 ML VIAL.NEB INHALATION ×2 (07:14→19:25)
[2024-01-08] MEDS: Lactobacillis Acidophilus 1 CAP PO ×3 (08:07→17:42)
[2024-01-08] MEDS: Pantoprazole Sodium 40 MG Tablet PO (08:08)
[2024-01-08] MEDS: Empagliflozin 25 MG Tablet 12.5 MG PO (08:08)
[2024-01-08] MEDS: Umeclidinium Brm/Vilanterol 62.5-25 mcg Inh 1 PUFF INHALATION (08:08)
[2024-01-08] MEDS: Menthol/Lanolin/Calamine/Znox 113 GM Tube 1 APPLIC TOPICAL ×2 (08:09→22:03)
[2024-01-08] MEDS: DULoxetine Hcl 60 MG Capsule PO (08:10)
[2024-01-08] MEDS: APIXABAN 5 MG TABLET PO ×2 (08:10→22:07)
[2024-01-08] MEDS: Arthritis Pain Compound 60 CLICK TUBE TOPICAL ×2 (08:10→22:07)
[2024-01-08] MEDS: guaiFENesin 600 MG Tablet PO ×2 (08:11→22:07)
[2024-01-08] MEDS: Methocarbamol 750 MG Tablet PO ×2 (08:11→22:08)
[2024-01-08] MEDS: Multivitamin (Healthy Eyes) Capsule 1 CAP PO (08:11)
[2024-01-08] MEDS: Nystatin Powder 15gm Bottle 1 APPLIC TOPICAL ×2 (08:11→22:08)
[2024-01-08] MEDS: Senna/Docusate Sodium 1 Tablet 2 TABLET PO ×2 (08:12→22:08)
[2024-01-08] MEDS: Dofetilide 250 MCG Capsule PO ×2 (08:12→22:08)
[2024-01-08] MEDS: Finasteride 5 MG Tablet PO (08:12)
--- NOTE | 2024-01-08 09:23 | NURSING ---
Called Dr. Cuenca's office, staff said resident will need cholangiogram scheduled, then they will follow-up a week after. Number for IR [phone], called and left VM requesting return call about scheduling cholangiogram.
--- NOTE | 2024-01-08 09:57 | NURSING ---
Addendum entered by Lisa Rivers 01/08/24 12:48: Resident updated about CT/biopsy and that nursing waiting on return call about cholangiogram. Original Note: Per insurance, no auth needed for CT guided biopsy/drainage. Order faxed to CT.
[2024-01-08] MEDS: NORMAL SALINE 0.9% IV (11:08)
[2024-01-08] MEDS: DAPTOMYCIN IV (11:08)
[2024-01-08] MEDS: Midodrine HCl 5 MG Tablet PO (13:25)
--- NOTE | 2024-01-08 13:33 | NURSING ---
Call from CT, they have him scheduled for Thursday01/13/24 at 0915. He needs to be NPO after midnight. Ok to take pain and BP meds AM of procedure, hold other meds. 4 doses of eliquis need held prior to procedure.
--- NOTE | 2024-01-08 15:37 | NURSING ---
This RN talked to dtr Lala multiple times today. Updated her that CT biopsy scheduled for Thursday. She is aware RN will work on scheduling cholangiogram next week. Also let her know this RN would reach out to sleep lab again next week to see about scheduling sleep study. Previously left with sleep lab and tried to call with no response. She was thankful for updates, asked that staff continue to keep her in the loop with anything new.
[2024-01-08] MEDS: Tamsulosin HCl 0.4 MG Capsule 0.8 MG PO (17:42)
[2024-01-08] MEDS: LORazepam 0.5 MG Tablet PO (22:03)
[2024-01-08] MEDS: Atorvastatin Calcium 10 MG Tablet PO (22:08)
[2024-01-08] MEDS: Ezetimibe 10 MG Tablet PO (22:09)
[2024-01-08] MEDS: Acetaminophen 500 MG Tablet 1000 MG PO (22:10)
[2024-01-09 06:00] VITALS: BMI 25.0
[2024-01-09] MEDS: 0.9% Saline Lock 10 ML Syringe IV ×4 (06:22→23:01)
[2024-01-09] MEDS: Piperacil/Tazobactam 3.375 GM in 0.9% Normal Saline (50mL MB+) 50 ML IV ×3 (06:23→23:00)
[2024-01-09] MEDS: Ensure Plus High Protein 120 ML LIQUID PO ×4 (06:23→23:14)
[2024-01-09 07:35] VITALS: PULSE 85; RESP 17; O2SAT 98
[2024-01-09] MEDS: levalbuterol HCL 0.63 MG/3 ML VIAL.NEB INHALATION ×3 (07:35→19:10)
[2024-01-09 09:22] VITALS: BP 92/52; PULSE 85; RESP 18; TEMP 36.6; O2SAT 95
[2024-01-09] MEDS: Empagliflozin 25 MG Tablet 12.5 MG PO (10:07)
[2024-01-09] MEDS: Lactobacillis Acidophilus 1 CAP PO ×3 (10:07→17:36)
[2024-01-09] MEDS: Umeclidinium Brm/Vilanterol 62.5-25 mcg Inh 1 PUFF INHALATION (10:08)
[2024-01-09] MEDS: Arthritis Pain Compound 60 CLICK TUBE TOPICAL ×2 (10:08→22:56)
[2024-01-09] MEDS: Pantoprazole Sodium 40 MG Tablet PO (10:08)
[2024-01-09] MEDS: guaiFENesin 600 MG Tablet PO ×2 (10:09→22:59)
[2024-01-09] MEDS: Multivitamin (Healthy Eyes) Capsule 1 CAP PO (10:09)
[2024-01-09] MEDS: Methocarbamol 750 MG Tablet PO ×2 (10:09→22:59)
[2024-01-09] MEDS: Midodrine HCl 5 MG Tablet PO (10:09)
[2024-01-09] MEDS: Senna/Docusate Sodium 1 Tablet 2 TABLET PO ×2 (10:09→22:59)
[2024-01-09] MEDS: DULoxetine Hcl 60 MG Capsule PO (10:09)
[2024-01-09] MEDS: Dofetilide 250 MCG Capsule PO ×2 (10:09→22:59)
[2024-01-09] MEDS: Finasteride 5 MG Tablet PO (10:09)
[2024-01-09] MEDS: APIXABAN 5 MG TABLET PO ×2 (10:09→22:58)
[2024-01-09] MEDS: Nystatin Powder 15gm Bottle 1 APPLIC TOPICAL ×2 (10:09→23:00)
[2024-01-09] MEDS: Menthol/Lanolin/Calamine/Znox 113 GM Tube 1 APPLIC TOPICAL ×2 (10:10→22:57)
[2024-01-09] MEDS: DAPTOMYCIN IV (11:37)
[2024-01-09] MEDS: NORMAL SALINE 0.9% IV (11:37)
[2024-01-09 13:55] VITALS: PULSE 88; RESP 16; O2SAT 93
[2024-01-09 16:00] VITALS: BP 161/64; RESP 18
[2024-01-09] MEDS: Tamsulosin HCl 0.4 MG Capsule 0.8 MG PO (17:36)
[2024-01-09 19:10] VITALS: RESP 18
[2024-01-09 20:12] VITALS: RESP 17; O2SAT 95
[2024-01-09] MEDS: LORazepam 0.5 MG Tablet PO (22:56)
[2024-01-09] MEDS: Atorvastatin Calcium 10 MG Tablet PO (22:58)
[2024-01-09] MEDS: Ezetimibe 10 MG Tablet PO (23:00)
[2024-01-10] MEDS: 0.9% Saline Lock 10 ML Syringe IV ×3 (04:13→13:45)
[2024-01-10 06:00] VITALS: BMI 24.9
[2024-01-10] MEDS: Ensure Plus High Protein 120 ML LIQUID PO ×4 (06:06→21:47)
[2024-01-10] MEDS: Piperacil/Tazobactam 3.375 GM in 0.9% Normal Saline (50mL MB+) 50 ML IV ×3 (06:06→23:03)
[2024-01-10] MEDS: levalbuterol HCL 0.63 MG/3 ML VIAL.NEB INHALATION ×3 (07:45→18:55)
[2024-01-10] MEDS: Lactobacillis Acidophilus 1 CAP PO ×3 (09:25→17:56)
[2024-01-10] MEDS: Empagliflozin 25 MG Tablet 12.5 MG PO (09:26)
[2024-01-10] MEDS: Umeclidinium Brm/Vilanterol 62.5-25 mcg Inh 1 PUFF INHALATION (09:27)
[2024-01-10] MEDS: Pantoprazole Sodium 40 MG Tablet PO (09:27)
[2024-01-10] MEDS: Arthritis Pain Compound 60 CLICK TUBE TOPICAL ×2 (09:27→21:40)
[2024-01-10] MEDS: Menthol/Lanolin/Calamine/Znox 113 GM Tube 1 APPLIC TOPICAL ×2 (09:28→21:43)
[2024-01-10] MEDS: DULoxetine Hcl 60 MG Capsule PO (09:29)
[2024-01-10] MEDS: APIXABAN 5 MG TABLET PO ×2 (09:29→21:41)
[2024-01-10] MEDS: Multivitamin (Healthy Eyes) Capsule 1 CAP PO (09:30)
[2024-01-10] MEDS: Midodrine HCl 5 MG Tablet PO (09:31)
[2024-01-10] MEDS: guaiFENesin 600 MG Tablet PO ×2 (09:31→21:42)
[2024-01-10] MEDS: Nystatin Powder 15gm Bottle 1 APPLIC TOPICAL ×2 (09:31→21:43)
[2024-01-10] MEDS: Methocarbamol 750 MG Tablet PO ×2 (09:31→21:42)
[2024-01-10] MEDS: Finasteride 5 MG Tablet PO (09:32)
[2024-01-10] MEDS: Senna/Docusate Sodium 1 Tablet 2 TABLET PO ×2 (09:32→21:42)
[2024-01-10] MEDS: Dofetilide 250 MCG Capsule PO ×2 (09:33→21:43)
[2024-01-10] MEDS: NORMAL SALINE 0.9% IV (10:02)
[2024-01-10] MEDS: DAPTOMYCIN IV (10:02)
[2024-01-10 11:33] VITALS: RESP 17
[2024-01-10 13:39] VITALS: PULSE 86; RESP 18
[2024-01-10 16:00] VITALS: BP 103/63; PULSE 96; RESP 16; TEMP 36.3; O2SAT 96
[2024-01-10] MEDS: Tamsulosin HCl 0.4 MG Capsule 0.8 MG PO (17:56)
[2024-01-10 18:55] VITALS: PULSE 88; RESP 16
[2024-01-10] MEDS: LORazepam 0.5 MG Tablet PO (21:39)
[2024-01-10] MEDS: Atorvastatin Calcium 10 MG Tablet PO (21:41)
[2024-01-10] MEDS: Ezetimibe 10 MG Tablet PO (21:43)
[2024-01-10] MEDS: Acetaminophen 500 MG Tablet 1000 MG PO (23:41)
[2024-01-11] VITALS (9 sets, daily range): BP systolic 100–110; BP diastolic 60–70; PULSE 66–92; RESP 16–18; TEMP 36.2; O2SAT 92–98; BMI 24.9
[2024-01-11] MEDS: Piperacil/Tazobactam 3.375 GM in 0.9% Normal Saline (50mL MB+) 50 ML IV ×3 (05:30→22:11)
[2024-01-11] MEDS: Ensure Plus High Protein 120 ML LIQUID PO ×4 (05:30→22:07)
[2024-01-11 06:15] LABS: International Normalized Ratio 1.3; Prothrombin Time (Protime)PT. 16.4 SECONDS (11.7-14.9)
--- NOTE | 2024-01-11 06:45 | NURSING ---
Cholecystostomy drain flushed this morning and bag emptied; 110mL of clear yellow-green fluid. Patient tolerated well. Cholecystostomy bag re-secured to T-shirt to prevent tugging.
[2024-01-11] MEDS: levalbuterol HCL 0.63 MG/3 ML VIAL.NEB INHALATION ×2 (07:39→13:23)
[2024-01-11] MEDS: Empagliflozin 25 MG Tablet 12.5 MG PO (07:50)
[2024-01-11] MEDS: Lactobacillis Acidophilus 1 CAP PO ×3 (07:50→17:28)
[2024-01-11] MEDS: Arthritis Pain Compound 60 CLICK TUBE TOPICAL ×2 (07:51→21:54)
[2024-01-11] MEDS: Umeclidinium Brm/Vilanterol 62.5-25 mcg Inh 1 PUFF INHALATION (07:51)
[2024-01-11] MEDS: Pantoprazole Sodium 40 MG Tablet PO (07:51)
[2024-01-11] MEDS: Menthol/Lanolin/Calamine/Znox 113 GM Tube 1 APPLIC TOPICAL ×2 (07:52→21:56)
[2024-01-11] MEDS: Nystatin Powder 15gm Bottle 1 APPLIC TOPICAL ×2 (07:53→22:00)
[2024-01-11] MEDS: Methocarbamol 750 MG Tablet PO ×2 (07:53→21:59)
[2024-01-11] MEDS: DULoxetine Hcl 60 MG Capsule PO (07:53)
[2024-01-11] MEDS: guaiFENesin 600 MG Tablet PO ×2 (07:53→21:59)
[2024-01-11] MEDS: APIXABAN 5 MG TABLET PO (07:53)
[2024-01-11] MEDS: Multivitamin (Healthy Eyes) Capsule 1 CAP PO (07:53)
[2024-01-11] MEDS: Dofetilide 250 MCG Capsule PO ×2 (07:54→22:00)
[2024-01-11] MEDS: Finasteride 5 MG Tablet PO (07:54)
[2024-01-11] MEDS: Senna/Docusate Sodium 1 Tablet 2 TABLET PO ×2 (07:54→22:00)
[2024-01-11] MEDS: oxyCODONE 5 MG Tablet PO (07:59)
[2024-01-11] MEDS: DAPTOMYCIN IV (10:07)
[2024-01-11] MEDS: NORMAL SALINE 0.9% IV (10:07)
[2024-01-11] MEDS: Acetaminophen 500 MG Tablet 1000 MG PO (10:11)
[2024-01-11] MEDS: 0.9% Saline Lock 10 ML Syringe IV ×2 (13:52→19:59)
--- NOTE | 2024-01-11 14:38 | NURSING ---
Followed up with Dr. Cuenca's office about having cholangiogram done at [facility]. Per their IR notes shouldn't be done until week of or January 31. They will need all images and reports send to them in the [facility] system.
--- NOTE | 2024-01-11 14:46 | NURSING ---
Spoke with Jodi in sleep lab, they are continuing to review resident's chart to see about sleep study at [place]. Said they will call back with more info.
--- NOTE | 2024-01-11 14:51 | CHAPLAIN ---
Type of Pastoral Visit ___ Initial Visit _x__ Follow-up Visit ___ On-call Visit ___ General Patient Visit ___ Spiritual Assessment ___ Family Conference ___ Bereavement ___ Rapid Response ___ Code Blue ___ Other (describe below) Pastoral Care Referral From ___ Patient _x__ Family ___ Nurse ___ Physician ___ Tax Associate Attorney ___ Power Grader Operator ___ Other (describe below) Sacrament/Intervention _x__ Active listening ___ Anointing ___ Episcopal ___ Bereavement ___ Communion ___ Nannette exploration ___ ___ Life review _x__ Prayer ___ Reconciliation ___ Sacrament of Sick _x__ Supportive presence ___ Wedding ___ Other (describe below) Pastoral Comments patient's spouse is also in TCU and she speaks of his needs and anxieties concerning a procedure for this week; talked with this patient then and he confirmed his schedule for a procedure and the anxiety along with it; pt states I just want to get it done and whichever way it goes I just want it done; pt is a bit more alert and talkative than the previous meeting;
[2024-01-11] MEDS: Tamsulosin HCl 0.4 MG Capsule 0.8 MG PO (17:28)
[2024-01-11] MEDS: Atorvastatin Calcium 10 MG Tablet PO (21:59)
[2024-01-11] MEDS: Ezetimibe 10 MG Tablet PO (22:00)
[2024-01-11] MEDS: LORazepam 0.5 MG Tablet PO (22:07)
[2024-01-12] MEDS: 0.9% Saline Lock 10 ML Syringe IV ×4 (02:34→17:19)
[2024-01-12] MEDS: Ensure Plus High Protein 120 ML LIQUID PO ×4 (05:16→22:13)
[2024-01-12] MEDS: Piperacil/Tazobactam 3.375 GM in 0.9% Normal Saline (50mL MB+) 50 ML IV ×3 (05:17→22:13)
[2024-01-12 06:46] VITALS: PULSE 90; O2SAT 94
[2024-01-12 06:50] VITALS: PULSE 91; RESP 20; O2SAT 90
[2024-01-12] MEDS: levalbuterol HCL 0.63 MG/3 ML VIAL.NEB INHALATION ×3 (06:50→18:55)
[2024-01-12] MEDS: Pantoprazole Sodium 40 MG Tablet PO (08:36)
[2024-01-12] MEDS: Umeclidinium Brm/Vilanterol 62.5-25 mcg Inh 1 PUFF INHALATION (08:36)
[2024-01-12] MEDS: Empagliflozin 25 MG Tablet 12.5 MG PO (08:36)
[2024-01-12] MEDS: Lactobacillis Acidophilus 1 CAP PO ×3 (08:36→17:19)
[2024-01-12] MEDS: Arthritis Pain Compound 60 CLICK TUBE TOPICAL ×2 (08:36→22:12)
[2024-01-12] MEDS: Multivitamin (Healthy Eyes) Capsule 1 CAP PO (08:37)
[2024-01-12] MEDS: Nystatin Powder 15gm Bottle 1 APPLIC TOPICAL ×2 (08:37→22:14)
[2024-01-12] MEDS: DULoxetine Hcl 60 MG Capsule PO (08:37)
[2024-01-12] MEDS: Midodrine HCl 5 MG Tablet PO (08:37)
[2024-01-12] MEDS: Finasteride 5 MG Tablet PO (08:37)
[2024-01-12] MEDS: Senna/Docusate Sodium 1 Tablet 2 TABLET PO ×2 (08:37→22:13)
[2024-01-12] MEDS: Menthol/Lanolin/Calamine/Znox 113 GM Tube 1 APPLIC TOPICAL ×2 (08:37→22:22)
[2024-01-12] MEDS: guaiFENesin 600 MG Tablet PO ×2 (08:37→22:13)
[2024-01-12] MEDS: Methocarbamol 750 MG Tablet PO ×2 (08:37→22:13)
[2024-01-12] MEDS: Dofetilide 250 MCG Capsule PO ×2 (08:38→22:13)
[2024-01-12 10:34] VITALS: BMI 25.0
[2024-01-12] MEDS: NORMAL SALINE 0.9% IV (10:45)
[2024-01-12] MEDS: DAPTOMYCIN IV (10:45)
[2024-01-12 10:51] VITALS: BP 108/71; PULSE 88; RESP 18; TEMP 36.5; O2SAT 97
[2024-01-12 11:02] VITALS: BMI 25.0
[2024-01-12] MEDS: Ondansetron ODT 4 MG Tablet 8 MG PO (11:59)
[2024-01-12 13:00] VITALS: PULSE 91; RESP 22
[2024-01-12 17:09] VITALS: O2SAT 94
[2024-01-12] MEDS: Tamsulosin HCl 0.4 MG Capsule 0.8 MG PO (17:18)
[2024-01-12 18:55] VITALS: PULSE 89; RESP 18; O2SAT 92
[2024-01-12] MEDS: LORazepam 0.5 MG Tablet PO (22:12)
[2024-01-12] MEDS: Atorvastatin Calcium 10 MG Tablet PO (22:13)
[2024-01-12] MEDS: Ezetimibe 10 MG Tablet PO (22:13)
[2024-01-12] MEDS: Acetaminophen 500 MG Tablet 1000 MG PO (22:14)
[2024-01-13 06:00] VITALS: BMI 25.0
[2024-01-13] MEDS: 0.9% Saline Lock 10 ML Syringe IV (06:19)
[2024-01-13] MEDS: Piperacil/Tazobactam 3.375 GM in 0.9% Normal Saline (50mL MB+) 50 ML IV (06:19)
[2024-01-13 06:52] VITALS: PULSE 89; RESP 16; O2SAT 90
[2024-01-13] MEDS: levalbuterol HCL 0.63 MG/3 ML VIAL.NEB INHALATION ×2 (06:52→20:45)
[2024-01-13] MEDS: Methocarbamol 750 MG Tablet PO (07:59)
[2024-01-13 08:05] VITALS: BP 100/63; PULSE 88; RESP 16; O2SAT 92
[2024-01-13] MEDS: Dofetilide 250 MCG Capsule PO (08:32)
--- NOTE | 2024-01-13 09:21 | NURSING ---
PT LEFT FLOOR BY WHEEL CHAIR WITH FAMILY BY HIS SIDE TO CT SCAN AND BIOPSY OF MASS ON LUNG AT 0920.
[2024-01-13] MEDS: Midodrine HCl 5 MG Tablet PO (11:38)
[2024-01-13 11:39] VITALS: BP 95/62
--- NOTE | 2024-01-13 13:54 | NURSING ---
RADIOLOGY CALLED AT 1315 AND STATED PT WAS NOT DOING WELL AFTER PROCEDURE AND WAS SENDING PT TO THE ER. RN AWARE
[2024-01-13 20:45] VITALS: PULSE 84; RESP 18
--- NOTE | 2024-01-14 02:00 | NURSING ---
Call received from ER, Patient to be admitted to PCU at this time.
--- NOTE | 2024-01-14 07:42 | DS.PCM_ITS ---
Providers Date of Admission: 12/23/23 Primary Care Physician: Dr. Arnulfo Rascon MD Consultations 12/24/23 07:44 Consult: Onc/Wound/checker [employer] products Routine Comment: Reason for Consult:: pressure sore on buttucks 01/02/24 18:52 Consult: General Surgery Routine Consulting Provider: [facility] Reason for Consult: evaluate for gallbladder removal EMERGENT Consult: No MD Notified: Yes Date Notified: 01/05/24 Time Notified: 12:31 Method of Notification: Answering Service Comments:: Call on 01/04/24Thursday Reason For Visit: CHOLECYSTITIS Diagnosis Discharge Diagnosis (1) Acalculous cholecystitis: Status: Acute Code(s): K81.9 - Cholecystitis, unspecified Plan 83 year old male with below past medical history hospitalized for acalculous cholecystitis, treated with cholecystostomy tube, not surgical candidate, complicated by VRE bacteremia, lung abscess, admitted to TCU with debility, here for rehabilitation, strengthening, intravenous antibiotics, prior to disposition determination. * Debility - PT/OT. * Pain - Tylenol 1000mg q6 prn, Oxycodone 5mg q4 prn. * Bowel - senna/colace 1 tablet bid. * Adult immunization - Administer pneumonia vaccine, covid vaccine, flu vaccine as appropriate. * DVT prophylaxis - on Eliquis. * Emphysema of lung - Albuterol 2.5mg neb tid, Incruse 1 puff daily. * Atrial fibrillation - Tikosyn 250mg bid, Eliquis 5mg bid. * Hyperlipidemia - Atorvastatin 10mg qhs, Zetia 10mg daily. * VRE bacteremia - Daptomycin 700g iv q24 thru 01/12/2024. * Depression - Duloxetine 60mg daily, stable chronic snf use, GDR not recommended. * HFpEF - Jardiance 12.5mg daily. * BPH - Finasteride 5mg daily, Tamsulosin 0.8mg daily. * GI prophylaxis - Lactobacillus 1 capsule tidcm. 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 * Muscle spasm - Robaxin 750mg bid. * Orthostatic hypotension - Midodrine 5mg tid. * Macular Degeneration - Healthy Eyes 1 cap daily. * Coronary artery disease - NTG 0.4mg sl q5m prn. * Thrush - Nystatin 500,000 units po tid x 10 days. * GERD - Pantoprazole 40mg daily Carafate 1g bid. * Lung abscess - Zosyn 3.375gm iv q8 thru 01/01/2024. * Hyponatremia - Sodium chloride 1gm tid thru 12/24/2023. Medications at Discharge Home Medications rosuvastatin 5 mg tablet (Crestor) 5 mg PO QDAY cholesterol 07/04/17 cholecalciferol (vitamin D3) 25 mcg (1,000 unit) tablet 25 mcg PO DAILY supplement 05/22/21 metoprolol succinate 25 mg tablet,extended release 24 hr 25 mg PO DAILY AFIB 06/27/21 nitroglycerin 0.4 mg sublingual tablet 0.4 mg sublingual Q5M PRN CP 06/27/21 cyanocobalamin (vitamin B-12) 1,000 mcg/mL injection kit 100 mcg IM QMONTH supplement 03/29/23 dofetilide 250 mcg capsule 250 mcg PO Q12H afib 03/29/23 duloxetine 60 mg capsule,delayed release See Rx Instructions PO DAILY mood 03/29/23 empagliflozin 25 mg tablet (Jardiance) 12.5 mg PO DAILY heart 03/29/23 finasteride 5 mg tablet 5 mg PO DAILY bph 03/29/23 levalbuterol HCl 0.63 mg/3 mL solution for nebulization 0.63 mg inhalation TID copd 03/29/23 midodrine 5 mg tablet 5 mg PO TID blood pressure 03/29/23 vit C 250 mg-vit E 200 unit-zinc ox 12.5 pf-kwnzho-zdpprf-zeax capsule (ICaps AREDS2) 1 cap PO DAILY supplement 03/29/23 budesonide 0.5 mg/2 mL suspension for nebulization 0.5 mg (2 mL) inhalation BID.RT Asthma #0 mL 04/01/23 lorazepam 0.5 mg tablet 0.5 mg PO QHS Anxiety #5 tabs 04/01/23 acetaminophen 500 mg tablet 1,000 mg (2 x 500 mg) PO Q6H PRN PRN Pain Score 1-3 #0 tabs 04/10/23 apixaban 5 mg tablet (Eliquis) 5 mg PO BID BLOOD THINNER #0 tabs 04/10/23 bumetanide 0.5 mg tablet 1 mg (2 x 0.5 mg) PO MOWEFR EDEMA #0 tabs 04/10/23 ezetimibe 10 mg tablet 10 mg PO QHS cholesterol 10/24/23 guaifenesin 1,200 mg tablet, extended release 12 hr (Mucinex) 1,200 mg PO BID mucus relief 10/24/23 pantoprazole 40 mg tablet,delayed release 40 mg PO DAILY GERD 10/24/23 tiotropium 2.5 mcg-olodaterol 2.5 mcg/actuation mist for inhalation (Stiolto Respimat) 2 inh inhalation DAILY COPD 10/24/23 methocarbamol 750 mg tablet 750 mg PO BID Muscle Relaxer 11/20/23 sucralfate 100 mg/mL oral suspension (Carafate) 1 g PO BID antacid 11/20/23 Lactobacillus acidophilus, bulgaricus 100 million cell granules packet (Floranex) 1 packet PO TIDCM supplement 12/23/23 daptomycin 1,000 mg/100 mL in 0.9 % sodium chlor intravenous piggyback 700 mg IV DAILY antibiotics 12/23/23 nystatin 100,000 unit/mL oral suspension 500,000 unit PO TID thrush 12/23/23 oxycodone 5 mg capsule 5 mg PO Q6H PRN pain 12/23/23 piperacillin-tazobactam 3.375 gram intravenous solution 3.375 g IV Q6H antibiotic 12/23/23 sodium chloride 1,000 mg soluble tablet 1,000 mg PO TID sodium 12/23/23 tamsulosin 0.4 mg capsule 0.8 mg PO DINNER bph 12/23/23 Hospital Course Operations None Procedures - (CT guided left lung biopsy.) Summary of Care Provided Minutes Spent on Discharge: 15 Hospital Course: 83 year old male with below past medical history hospitalized for acalculous cholecystitis, treated with cholecystostomy tube, not surgical candidate, complicated by VRE bacteremia, lung abscess, admitted to TCU with debility, here for rehabilitation, strengthening, intravenous antibiotics, prior to disposition determination. 01/13/[address] guided biopsy of left lung mass. Resident developed pneumothorax afterwards. Discharge to [facility] ED 01/14/2024 for evaluation, admission to [facility]. Weight / BMI Weight Weight: 74.571 kg Body Mass Index (BMI) 25.0 ABG / Lab / Microbiology Data 01/07/24 05:18 01/07/24 05:18 Microbiology: Microbiology 12/29/23 05:50 Nasal Secretion SARS-CoV-2 Antigen (Rapid) - Final D/C Instructions Discharge Diet: No restrictions Discharge Activity: Return to Normal Activity, May Shower and Use Walker Weight Bearing Status: Weight bearing as tolerated Call your doctor if you observe: Fever of 101 or Higher, Inability to urinate, Inability to have a bowel movement, Shortness of breath, Dizziness, Fainting spells, Swelling in the ankles, Chest pain and Uncontrolled pain Additional Instructions: Discharge to [facility] ED 01/14/2024 for evaluation, admission to [facility]. Please Follow Up With: SANG FRANCES Meaningful Use Info Meaningful Use Meaningful Use Diagnoses (Choose all that apply): None applicable Ischemic Stroke Statin Dosing Therapy Reference: STATIN DOSE THERAPY REFERENCE: * Patients > 75 years receive moderate or high dose statin therapy. * Patients 75 years or YOUNGER should receive HIGH intensity statin dose unless contraindicated. You will be required to document reason for non-treatment if statin daily dose does not meet guidelines. HIGH DOSE STATIN THERAPY DAILY Atorvastatin > than or = to 40 mg Rosuvastatin > than or = to 20 mg Amlodipine + Atorvastatin > than or = to 2.5/40 mg Ezetimibe + Simvastatin 10/80 mg Simvastatin 80mg Discharge Plan Admission Admit Date/Time: 12/23/23 20:13 Primary Reason for Your Visit: Cholecystitis Attending Provider: Parrish Shah Chi Primary Care Provider: Arnulfo Rascon Consulting Providers: Matilda De Jesus; Abimael Zapata; Brooks Barker; Fortino Em; Sylvester Neumann; Arnulfo Childress; aDrby Rich; Latisha Cutler Instructions Additional Instructions / Restrictions: Discharge to [facility] ED 01/14/2024 for evaluation, admission to [facility]. Discharge Orders/Prescriptions Prescriptions: No Action rosuvastatin [Crestor] 5 mg tablet 5 mg PO QDAY metoprolol succinate 25 mg tablet extended release 24 hr 25 mg PO DAILY nitroglycerin 0.4 mg tablet, sublingual 0.4 mg sublingual Q5M PRN (Reason: CP) Rx Instructions: do not exceed 3 doses per episode dofetilide 250 mcg capsule 250 mcg PO Q12H Patient Comments: TAKE 1 CAPSULE BY MOUTH EVERY 12 HOURS midodrine 5 mg tablet 5 mg PO TID Patient Comments: Takes in the morning and evening and the afternoon dose is PRN if he needs it. finasteride 5 mg tablet 5 mg PO DAILY Patient Comments: take 1 tablet by mouth once daily duloxetine 60 mg capsule,delayed release(DR/EC) See Rx Instructions PO DAILY Rx Instructions: 60 mg (2 caps) orally daily; Jardiance 25 mg tablet 12.5 mg PO DAILY levalbuterol HCl 0.63 mg/3 mL solution for nebulization 0.63 mg INHALATION TID Patient Comments: USE 1 VIAL 3 TIMES A DAY ICaps AREDS2 250 mg-200 unit -12.5 mg-1 mg capsule 1 cap PO DAILY cyanocobalamin (vitamin B-12) 1,000 mcg/mL kit 100 mcg IM QMONTH lorazepam 0.5 mg Tablet 0.5 mg PO QHS Qty: 5 0RF budesonide 0.5 mg/2 mL Suspension For Nebulization 0.5 mg inhalation BID.RT Qty: 0 0RF acetaminophen 500 mg Tablet 1,000 mg PO Q6H PRN PRN (Reason: Pain Score 1-3) Qty: 0 0RF Eliquis 5 mg Tablet 5 mg PO BID Qty: 0 0RF bumetanide 0.5 mg Tablet 1 mg PO MOWEFR Qty: 0 0RF pantoprazole 40 mg tablet,delayed release (DR/EC) 40 mg PO DAILY Patient Comments: take 1 tablet by mouth twice a day take before meals Rx Instructions: Before meals ezetimibe 10 mg tablet 10 mg PO QHS guaifenesin [Mucinex] 1,200 mg tablet extended release 12hr 1,200 mg PO BID Stiolto Respimat 2.5-2.5 mcg/actuation mist 2 inh inhalation DAILY daptomycin in 0.9 % sod chlor 1,000 mg/100 mL piggyback 700 mg IV DAILY Rx Instructions: administer over 30 mins Lactobacillus acidoph-L.bulgar [Floranex] 100 million cell granules in packet 1 packet PO TIDCM nystatin 100,000 unit/mL suspension 500,000 unit PO TID Rx Instructions: administer 1/2 of dose in each side of the mouth oxycodone 5 mg capsule 5 mg PO Q6H PRN (Reason: pain) sodium chloride 1,000 mg tablet,soluble 1,000 mg PO TID Rx Instructions: x4 doses piperacillin-tazobactam 3.375 gram recon soln 3.375 g IV Q6H Rx Instructions: for 9 days tamsulosin 0.4 mg Capsule 0.8 mg PO DINNER methocarbamol 750 mg tablet 750 mg PO BID Rx Instructions: for neck pain sucralfate [Carafate] 100 mg/mL suspension 1 g PO BID cholecalciferol (vitamin D3) 25 mcg (1,000 unit) tablet 25 mcg PO DAILY Referrals / Follow Up: Arnulfo Rascon MD [Primary Care Provider] - Disposition Disposition (needs filled in before D/C Order can be placed): Acute Care Hospital [facility]
== END 2024-01-13 13:15 | disposition short-term general hospital (02) | DRG 444 ==
PROVIDERS: Radiology Diagnostic Radiology; Admitting Provider Family Medicine Geriatric Medicine; PCP Family Medicine; Visit Provider Family Medicine Geriatric Medicine
DX: K81.9 Cholecystitis, unspecified (principal); J85.2 Abscess of lung without pneumonia; R78.81 Bacteremia; B37.0 Candidal stomatitis; E87.1 Hypo-osmolality and hyponatremia; I50.42 Chronic combined systolic (congestive) and diastolic (congestive) heart failure; J95.811 Postprocedural pneumothorax; Z16.21 Resistance to vancomycin; L89.311 Pressure ulcer of right buttock, stage 1; L89.321 Pressure ulcer of left buttock, stage 1; J43.9 Emphysema, unspecified; F32.A Depression, unspecified; I48.0 Paroxysmal atrial fibrillation; M62.838 Other muscle spasm; I95.1 Orthostatic hypotension; H35.30 Unspecified macular degeneration; E78.5 Hyperlipidemia, unspecified; K21.9 Gastro-esophageal reflux disease without esophagitis; I25.10 Atherosclerotic heart disease of native coronary artery without angina pectoris; G47.33 Obstructive sleep apnea (adult) (pediatric); F41.9 Anxiety disorder, unspecified; N40.0 Benign prostatic hyperplasia without lower urinary tract symptoms; Z87.891 Personal history of nicotine dependence; B95.2 Enterococcus as the cause of diseases classified elsewhere; Z79.899 Other long term (current) drug therapy; Z79.01 Long term (current) use of anticoagulants; Z79.51 Long term (current) use of inhaled steroids
CPT/HCPCS: 36415; 80048; 80053; 85025; 85610; 85730; 87811; 94640; 94762; 97110; 97116; 97162; 97166; 97530; 97535; 97802; J0878; J2997; J7040; A4216; J3490

== ENCOUNTER → 2023-12-30 | Outpatient (CLI) | payer MEDICARE, SELFPAY ==
--- NOTE | 2023-12-31 08:47 | CT_ITS ---
INDICATION: Abscess of lung without pneumonia EXAMINATION: CT CHEST WITHOUT CONTRAST - CT Chest W/O Contrast Injection TECHNIQUE: Helically acquired images were obtained of the chest. The protocol utilizes one or more of the following dose reduction techniques: automated exposure control, adjustment of mA and/or kV according to patient size,and/or use of iterative reconstruction technique. IV Contrast dosage and agent: None. RADIATION DOSAGE (If Supplied By Facility): CTDIvol = ( 12.19 ) mGy, DLP = ( 423.39 ) mGycm COMPARISON: November 11, 2023 and December 10, [address] of the abdomen dated December 12, 2023 FINDINGS: LUNGS, PLEURA AND LARGE AIRWAYS: There are bilateral emphysematous changes. Along the left major fissure there is a 3.4 x 2.4 cm round low-attenuation focus that has decreased in size previously measuring 3.7 x 2.5 cm by my measurements. There is interval resolution of the air within the round fluid focus. There is bibasilar atelectasis and/or scarring, most pronounced within the lower lobes. No pneumothorax. THYROID: No thyroid lesions. HEART AND PERICARDIUM: Heart size is normal. No pericardial effusion. CORONARY ARTERIES: Coronary artery calcification is seen. VESSELS: Thoracic aorta is not dilated. There are peripheral calcifications of the thoracic aorta. MEDIASTINUM AND SVEN: No mediastinal or hilar adenopathy. There is a left-sided central venous catheter in place terminating within the expected region of the superior vena cava. Esophagus is unremarkable. No hiatal hernia. UPPER ABDOMEN: There is persistent stranding within the partially visualized jordan hepatis. There is splenomegaly. BONES: There are degenerative changes of the thoracic spine. CT/Chest without Contrast IMPRESSION: Interval decrease in size of round low-attenuation focus along the left major fissure with an appearance suggestive of loculated fluid, cannot exclude an abscess. Emphysema. Pulmonary emphysema on CT is an independent risk factor for lung cancer. Recommend consideration for low dose CT (LDCT) lung cancer screening in the future. (exclusions: patient with active diagnosis or history of lung cancer, or if patient is enrolled in a lung cancer screening program) Atherosclerosis. Stable stranding within the partially visualized jordan hepatis may be secondary to cholecystitis. Electronically Signed: Deanne Del Rio MD at 10:06 EDT ,
== END | disposition home or self-care (01) ==
PROVIDERS: PCP Family Medicine; Referring Provider Family Medicine Geriatric Medicine; Visit Provider Family Medicine Geriatric Medicine
DX: J85.2 Abscess of lung without pneumonia (principal)
CPT/HCPCS: 71250

== ENCOUNTER 2024-01-13 14:03 | Inpatient (IN) | payer MEDICARE, SELFPAY ==
[2024-01-13] VITALS (13 sets, daily range): BP systolic 104–125; BP diastolic 65–99; PULSE 72–86; RESP 21–25; TEMP 36.4–36.6; O2SAT 94–100; BMI 27.3
--- NOTE | 2024-01-13 15:19 | ED.VIS.DYS ---
HPI History of Present Illness Chief Complaint: Shortness of Breath Informant: patient Narrative Narrative: Patient is an 83-year-old male with history of atrial fibrillation, on Eliquis, heart failure with preserved ejection fraction, pulmonary fibrosis, recent acalculous cholecystitis status post percutaneous drain in place and lung abscess presenting from radiology after undergoing lung biopsy and sustaining an iatrogenic pneumothorax on the left. Patient normally wears 2 L of oxygen. He was turned up to 4 L. He continues to have pain on the left side however it improved after he received Toradol over in IR. Was brought over the ER for further evaluation. Patient's has some mild pain of the left lateral lower chest but denies feeling short of breath right now. Notes the pain is worse when he takes a deep breath or cough/hiccups. Did not have his Eliquis today. No other complaints or concerns reported at this time. Patient currently is in the TCU receiving IV antibiotics. [facility] Medical History Pulmonary fibrosis Sinus node dysfunction HFrEF (heart failure with reduced ejection fraction) Chronic diarrhea Retroperitoneal hematoma Atherosclerotic heart disease of [place] coronary artery without angina pectoris Obstructive sleep apnea Hyperlipidemia SVT (supraventricular tachycardia) GERD (gastroesophageal reflux disease) COPD (chronic obstructive pulmonary disease) BPH (benign prostatic hyperplasia) Paroxysmal atrial fibrillation Home Medications ?Medication ?Instructions ?Recorded ?Last Taken ?Type rosuvastatin 5 mg tablet (Crestor) 5 mg PO QDAY cholesterol 07/04/17 10/24/23 History cholecalciferol (vitamin D3) 25 25 mcg PO DAILY supplement 05/22/21 10/24/23 History mcg (1,000 unit) tablet metoprolol succinate 25 mg 25 mg PO DAILY AFIB 06/27/21 12/12/23 History tablet,extended release 24 hr nitroglycerin 0.4 mg sublingual 0.4 mg sublingual Q5M PRN CP 06/27/21 Unknown History tablet cyanocobalamin (vitamin B-12) 100 mcg IM QMONTH supplement 03/29/23 10/17/23 History 1,000 mcg/mL injection kit dofetilide 250 mcg capsule 250 mcg PO Q12H afib 03/29/23 12/12/23 History duloxetine 60 mg capsule,delayed See Rx Instructions PO DAILY mood 03/29/23 10/24/23 History release empagliflozin 25 mg tablet 12.5 mg PO DAILY heart 03/29/23 10/24/23 History (Jardiance) finasteride 5 mg tablet 5 mg PO DAILY bph 03/29/23 10/24/23 History levalbuterol HCl 0.63 mg/3 mL 0.63 mg inhalation TID copd 03/29/23 10/24/23 History solution for nebulization midodrine 5 mg tablet 5 mg PO TID blood pressure 03/29/23 10/24/23 History vit C 250 mg-vit E 200 unit-zinc 1 cap PO DAILY supplement 03/29/23 10/24/23 History ox 12.5 [id number] capsule (ICaps AREDS2) budesonide 0.5 mg/2 mL suspension 0.5 mg (2 mL) inhalation BID.RT 04/01/23 10/24/23 Rx for nebulization Asthma #0 mL lorazepam 0.5 mg tablet 0.5 mg PO QHS Anxiety #5 tabs 04/01/23 10/23/23 Rx acetaminophen 500 mg tablet 1,000 mg (2 x 500 mg) PO Q6H PRN 04/10/23 10/23/23 Rx PRN Pain Score 1-3 #0 tabs apixaban 5 mg tablet (Eliquis) 5 mg PO BID BLOOD THINNER #0 tabs 04/10/23 01/11/24 08:00 Rx bumetanide 0.5 mg tablet 1 mg (2 x 0.5 mg) PO MOWEFR EDEMA 04/10/23 11/18/23 Rx #0 tabs ezetimibe 10 mg tablet 10 mg PO QHS cholesterol 10/24/23 Unknown History guaifenesin 1,200 mg tablet, 1,200 mg PO BID mucus relief 10/24/23 Unknown History extended release 12 hr (Mucinex) pantoprazole 40 mg tablet,delayed 40 mg PO DAILY GERD 10/24/23 Unknown History release tiotropium 2.5 mcg-olodaterol 2.5 2 inh inhalation DAILY COPD 10/24/23 Unknown History mcg/actuation mist for inhalation (Stiolto Respimat) methocarbamol 750 mg tablet 750 mg PO BID Muscle Relaxer 11/20/23 Unknown History sucralfate 100 mg/mL oral 1 g PO BID antacid 11/20/23 Unknown History suspension (Carafate) Lactobacillus acidophilus, 1 packet PO TIDCM supplement 12/23/23 Unknown History bulgaricus 100 million cell granules packet (Floranex) daptomycin 1,000 mg/100 mL in 0.9 700 mg IV DAILY antibiotics 12/23/23 12/23/23 History % sodium chlor intravenous piggyback nystatin 100,000 unit/mL oral 500,000 unit PO TID thrush 12/23/23 Unknown History suspension oxycodone 5 mg capsule 5 mg PO Q6H PRN pain 12/23/23 Unknown History piperacillin-tazobactam 3.375 gram 3.375 g IV Q6H antibiotic 12/23/23 12/23/23 17:30 History intravenous solution sodium chloride 1,000 mg soluble 1,000 mg PO TID sodium 12/23/23 Unknown History tablet tamsulosin 0.4 mg capsule 0.8 mg PO DINNER bph 12/23/23 Unknown History Allergy/AdvReac Type Severity Reaction Status Date / Time tramadol Allergy Unknown PT UNSURE Verified 01/13/24 09:44 OF REACTION clindamycin AdvReac Intermediate Rash Verified 01/13/24 09:44 terbinafine AdvReac Intermediate Rash Verified 01/13/24 09:44 Family History Mother , Age 64 from Emphysema COPD (chronic obstructive pulmonary disease) Blood disorder Father No problems noted. Surgical History S/P ablation of atrial fibrillation History of left heart catheterization (05/27/21) History of tonsillectomy History of ankle surgery History of back surgery History of appendectomy History of inguinal hernia repair History of umbilical hernia repair Social History household members: spouse housing: house Smoking Status: Former smoker how long ago did patient quit smokin years ago alcohol intake: current alcohol intake frequency: holidays/special occasions only substance use type: does not use caffeine: Yes Type: coffee Number of servings: 2 ROS ROS ED Constitutional Constitutional ED: Denies chills or fever(s) Cardiovascular Cardiovascular: Reports chest pain Respiratory/Chest Respiratory/Chest: Reports dyspnea; Denies cough Gastrointestinal Gastrointestinal: Denies nausea or vomiting Musculoskeletal Musculoskeletal: Denies back pain or myalgias Integumentary Denies rash Hematologic/Lymphatic Hematologic/Lymphatic: Reports easy bleeding and easy bruising EXAM Physical Exam Const Vital Signs: 01/13/24 14:06 01/13/24 14:12 01/13/24 15:12 Temperature 97.9 F 97.9 F 98 F Temperature Source Oral Oral Oral Pulse Rate 74 82 72 Respiratory Rate 23 H 23 H 23 H Respiratory Effort Respiratory Depth Respiratory Pattern Blood Pressure 104/70 104/70 125/77 H Blood Pressure Mean 81 81 93 Pulse Ox 96 95 100 Oxygen Delivery Method Nasal Cannula Nasal Cannula Non-Rebreather Oxygen Flow Rate (L/min) 2 2 EtCo2 (Normal 35-45 , high quality CPR 10-20 & ROSC>/=40mmHg 01/13/24 15:16 01/13/24 17:00 01/13/24 18:00 Temperature 97.5 F L Temperature Source Temporal Pulse Rate 80 77 Respiratory Rate 25 H 22 H Respiratory Effort Short of Breath Respiratory Depth Normal Respiratory Pattern Normal Blood Pressure 111/75 112/99 H Blood Pressure Mean 87 103 Pulse Ox 100 95 Oxygen Delivery Method Non-Rebreather Non-Rebreather Oxygen Flow Rate (L/min) 15 15 EtCo2 (Normal 35-45 , high quality CPR 10-20 & ROSC>/=40mmHg 01/13/24 19:00 01/13/24 19:46 01/13/24 20:00 Temperature 97.8 F 97.8 F Temperature Source Temporal Temporal Pulse Rate 77 81 Respiratory Rate 21 H 22 H Respiratory Effort Respiratory Depth Respiratory Pattern Blood Pressure 110/68 114/75 Blood Pressure Mean 82 88 Pulse Ox 97 97 Oxygen Delivery Method Nasal Cannula Nasal Cannula Oxygen Flow Rate (L/min) 6 4 EtCo2 (Normal 35-45 , high quality CPR 10-20 & ROSC>/=40mmHg 29 01/13/24 21:00 01/13/24 21:06 01/13/24 21:15 Temperature 97.7 F L 97.6 F L 97.7 F L Temperature Source Temporal Temporal Pulse Rate 85 80 83 Respiratory Rate 24 H 22 H 25 H Respiratory Effort Respiratory Depth Respiratory Pattern Blood Pressure 115/65 109/69 110/68 Blood Pressure Mean 81 81 Pulse Ox 94 95 94 Oxygen Delivery Method Nasal Cannula Nasal Cannula Oxygen Flow Rate (L/min) 4 4 EtCo2 (Normal 35-45 , high quality CPR 10-20 & ROSC>/=40mmHg 26 01/13/24 21:30 01/13/24 22:00 01/13/24 23:00 Temperature 97.9 F 97.9 F 97.9 F Temperature Source Temporal Temporal Temporal Pulse Rate 85 86 85 Respiratory Rate 23 H 23 H 21 H Respiratory Effort Respiratory Depth Respiratory Pattern Blood Pressure 108/70 111/65 116/76 Blood Pressure Mean 81 79 89 Pulse Ox 94 96 96 Oxygen Delivery Method Nasal Cannula Nasal Cannula Oxygen Flow Rate (L/min) 4 4 EtCo2 (Normal 35-45 , high quality CPR 10-20 & ROSC>/=40mmHg Positive well nourished and well developed General Appearance ED: well developed and NAD HEENT Reports moist mucous membranes Eyes PERRL and EOMs intact bilaterally Neck supple and no JVD Chest Wall Chest Narrative: Bandage over the posterior left upper ribs at site of recent biopsy. No active bleeding appreciated. No chest wall crepitus appreciated. Resp normal respiratory effort Resp Narrative: Diminished breath sounds on the left side. Effort and Inspection: pain with movement Auscultation: Negative for wheezes Cardio regular rate, regular rhythm and no murmurs GI non-tender and non-distended GI Narrative: Percutaneous cholecystostomy tube in place with bilious drainage present Extremity General Extremety ED: Negative for edema General Extremity: Negative for edema Neuro oriented x3 Sensorium / Orientation: alert Motor Exam: general weakness Psych mental status grossly normal Skin no wounds Rashes: no rashes MDM MDM MDM Narrative Medical decision making narrative: Patient is evaluated for iatrogenic pneumothorax after undergoing a lung biopsy on the left. Patient does have an increased O2 demand (is currently on 4 L where he normally wears 2). I spoke with Dr. Ventura, interventional radiology who states that his 2-hour chest x-ray shows approximately 15% pneumothorax. He was sent over because he had continued pain in. He was not placed on a nonrebreather over there. Patient is in no extremis. No signs of attention pneumothorax/physiology. I will place the patient on a nonrebreather and repeat chest x-ray after no other 1 to 2 hours to see if there is any improvement. Repeat chest x-rays not show any improvement. Decision made to place Thora vent chest tube. Patient tolerated procedure well. Repeat chest x-ray shows good placement but patient does not have significant improvement of his pneumothorax. I spoke with TCU Dr. Shah, who is comfortable taking him back with the Thora vent in place and time for his lung to reexpand however the daughter is not comfortable with this. She would prefer the patient to be admitted. I think this is reasonable especially given the patient's comorbidities. Case discussed with Dr. Espino, hospitalist. Who would like me to first talk with the telemetry stringed instrument assembler as well as general surgery if he is to be admitted. Case discussed with Dr. Higgins as well as Dr. Perez. They are agreeable with admission. Dr. Perez will see the patient on consult tomorrow from a pulmonology standpoint and get repeat chest x-ray. If pneumothorax still there can repeat CT scan of the chest at that time. Patient and daughter agreeable with this plan of care. Patient is given his evening dose of Tikosyn as well as his evening dose of Zosyn while in the emergency room. Baseline labs obtained in anticipation for admission and they are stable with no acute abnormalities. Patient is given dose of fentanyl for her discomfort in the emergency room. Lab Data Labs: Laboratory Results - last 24 hr 01/13/24 22:11 WBC 10.3 RBC 3.77 L Hgb 11.4 L Hct 36.0 L MCV 95.5 H MCH 30.2 MCHC 31.7 L RDW Std Deviation 53.9 H RDW Coeff of David 15.5 H Plt Count 326 MPV 9.8 Immature Gran % (Auto) 2.400 H Neut % (Auto) 67.0 Lymph % (Auto) 10.9 L Armstrong % (Auto) 9.8 Eos % (Auto) 8.2 H Baso % (Auto) 1.7 H Absolute Neuts (auto) 6.9 Absolute Lymphs (auto) 1.12 Nucleated RBC % 0 Sodium 137 Potassium 4.4 Chloride 103 Carbon Dioxide 29.0 Anion Gap 6 BUN 16 Creatinine 0.90 Estim Creat Clear Calc 58.06 Est GFR (MDRD) Af Amer 103 Est GFR (MDRD) Non-Af 85 BUN/Creatinine Ratio 17.8 Glucose 95 Calcium 9.3 Total Bilirubin 0.60 AST 21 ALT 25 Alkaline Phosphatase 104 Total Protein 6.2 L Albumin 2.8 L Globulin 3.4 Albumin/Globulin Ratio 0.8 L Radiography Diagnostic Testing: Clinical Impression(s) from Imaging Studies Chest X-Ray 01/13/24 17:11 IMPRESSION: Stable left-sided pneumothorax. Electronically Signed: Arcadio Albarran MD at 17:57 EDT , Chest X-Ray 01/13/24 21:40 IMPRESSION: 1. The left side pneumothorax is similar appearance to the prior examination. 2. Bibasilar pulmonary opacities may be atelectasis, scarring, or pneumonia. 3. Left side port catheter is present. Electronically Signed: Ac Rendon DO at 22:07 EDT , Procedures Other Procedures Procedure(s): Thoravent placement Area cleansed with ChloraPrep. Informed consent performed. Patient placed on monitor. Initially plan for procedural sedation however IV access insufficient, patient comfortable proceeding with just local anesthetic. 10 cc of 1% lidocaine infiltrated at approximately level of the third intercostal space midclavicular line. #11 blade used to make a stab incision at the site. Trocar introduced and then catheter advanced further once in the pleural space. Thora vent secured with supplied adhesive. Patient tolerated procedure well with no immediate complications. Repeat chest x-ray pending Discharge Plan Triage Chief Complaint: Shortness of Breath ED Provider: Verenice Chicas Dx/Rx/DC Orders Clinical Impression: Iatrogenic pneumothorax Prescriptions: No Action rosuvastatin [Crestor] 5 mg tablet 5 mg PO QDAY metoprolol succinate 25 mg tablet extended release 24 hr 25 mg PO DAILY nitroglycerin 0.4 mg tablet, sublingual 0.4 mg sublingual Q5M PRN (Reason: CP) Rx Instructions: do not exceed 3 doses per episode dofetilide 250 mcg capsule 250 mcg PO Q12H Patient Comments: TAKE 1 CAPSULE BY MOUTH EVERY 12 HOURS midodrine 5 mg tablet 5 mg PO TID Patient Comments: Takes in the morning and evening and the afternoon dose is PRN if he needs it. finasteride 5 mg tablet 5 mg PO DAILY Patient Comments: take 1 tablet by mouth once daily duloxetine 60 mg capsule,delayed release(DR/EC) See Rx Instructions PO DAILY Rx Instructions: 60 mg (2 caps) orally daily; Jardiance 25 mg tablet 12.5 mg PO DAILY levalbuterol HCl 0.63 mg/3 mL solution for nebulization 0.63 mg INHALATION TID Patient Comments: USE 1 VIAL 3 TIMES A DAY ICaps AREDS2 250 mg-200 unit -12.5 mg-1 mg capsule 1 cap PO DAILY cyanocobalamin (vitamin B-12) 1,000 mcg/mL kit 100 mcg IM QMONTH lorazepam 0.5 mg Tablet 0.5 mg PO QHS Qty: 5 0RF budesonide 0.5 mg/2 mL Suspension For Nebulization 0.5 mg inhalation BID.RT Qty: 0 0RF acetaminophen 500 mg Tablet 1,000 mg PO Q6H PRN PRN (Reason: Pain Score 1-3) Qty: 0 0RF Eliquis 5 mg Tablet 5 mg PO BID Qty: 0 0RF bumetanide 0.5 mg Tablet 1 mg PO MOWEFR Qty: 0 0RF pantoprazole 40 mg tablet,delayed release (DR/EC) 40 mg PO DAILY Patient Comments: take 1 tablet by mouth twice a day take before meals Rx Instructions: Before meals ezetimibe 10 mg tablet 10 mg PO QHS guaifenesin [Mucinex] 1,200 mg tablet extended release 12hr 1,200 mg PO BID Stiolto Respimat 2.5-2.5 mcg/actuation mist 2 inh inhalation DAILY daptomycin in 0.9 % sod chlor 1,000 mg/100 mL piggyback 700 mg IV DAILY Rx Instructions: administer over 30 mins Lactobacillus acidoph-L.bulgar [Floranex] 100 million cell granules in packet 1 packet PO TIDCM nystatin 100,000 unit/mL suspension 500,000 unit PO TID Rx Instructions: administer 1/2 of dose in each side of the mouth oxycodone 5 mg capsule 5 mg PO Q6H PRN (Reason: pain) sodium chloride 1,000 mg tablet,soluble 1,000 mg PO TID Rx Instructions: x4 doses piperacillin-tazobactam 3.375 gram recon soln 3.375 g IV Q6H Rx Instructions: for 9 days tamsulosin 0.4 mg Capsule 0.8 mg PO DINNER methocarbamol 750 mg tablet 750 mg PO BID Rx Instructions: for neck pain sucralfate [Carafate] 100 mg/mL suspension 1 g PO BID cholecalciferol (vitamin D3) 25 mcg (1,000 unit) tablet 25 mcg PO DAILY Primary Care Provider: Arnulfo Rascon Referrals: Arnulfo Rascon MD [Primary Care Provider] - Print Language: Emirati Disposition Disposition: Acute Care Hospital [facility]
--- NOTE | 2024-01-13 17:11 | RAD_ITS ---
INDICATION: Follow-up pneumothorax. EXAMINATION/TECHNIQUE: X-RAY - portable upright AP chest x-ray COMPARISON: 01/13/2024 at 10:48 PM FINDINGS: No significant interval change in the left-sided pneumothorax. The remainder the study is unchanged. RAD/Chest 1 View (Portable) IMPRESSION: Stable left-sided pneumothorax. Electronically Signed: Arcadio Albarran MD at 17:57 EDT ,
--- NOTE | 2024-01-13 18:27 | NURSING ---
200cc emptied from choleyostomy tube
[2024-01-13] MEDS: Lidocaine 1% (20 ml mdv) 20 ML Vial INFILT (21:37)
--- NOTE | 2024-01-13 21:40 | RAD_ITS ---
EXAM: XR CHEST, 1 VIEW CLINICAL INDICATION: post procedure TECHNIQUE: Frontal view of the chest. COMPARISON: 01/13/2024 FINDINGS: LUNGS AND PLEURAL SPACES: The left side pneumothorax is similar appearance to the prior examination. Bibasilar pulmonary opacities may be atelectasis, scarring, or pneumonia. No effusion. HEART: No significant abnormality. Cardiac silhouette not enlarged. MEDIASTINUM: Central airways and mediastinal contour are unremarkable. BONES/JOINTS: No significant abnormality. No acute fracture. SOFT TISSUES: No significant abnormality. TUBES, LINES AND DEVICES: Left side port catheter is present. Left upper extremity PICC is again identified. RAD/Chest 1 View (Portable) IMPRESSION: 1. The left side pneumothorax is similar appearance to the prior examination. 2. Bibasilar pulmonary opacities may be atelectasis, scarring, or pneumonia. 3. Left side port catheter is present. Electronically Signed: Ac Rendon DO at 22:07 EDT ,
[2024-01-13] MEDS: fentaNYL 100 MCG/2 ML Ampul 25 MCG IV (22:18)
[2024-01-13] MEDS: Dofetilide 250 MCG Capsule PO (23:25)
[2024-01-13 23:51] LABS: ALB/GLOB Ratio 0.8 RATIO (0.9-2.4); AST(SGOT) 21 U/L (15-37); Alanine Aminotransfer ALT/SGPT 25 U/L (16-61); Albumin, Serum 2.8 g/dL (3.2-5.0); Alkaline Phosphatase 104 U/L (45-117); Anion Gap 6 (5-15); BUN 16 mg/dL (7-18); BUN/Creat Ratio 17.8 RATIO (10-20); Calcium,Total 9.3 mg/dL (8.5-10.1); Chloride 103 mmol/L (98-107); EST Glomerular Filtration Rate 85 mL/min (>60); Est Glom Filt Rate - Afr Amer 103 mL/min (>60); Estimated Creatinine Clearance 58.06 ml/min; Globulin 3.4 g/dL (2.2-4.2); Glucose 95 mg/dL (74-106); Potassium 4.4 mmol/L (3.5-5.1); Protein, Total 6.2 g/dL (6.4-8.2); Sodium Level 137 mmol/L (136-145)
[2024-01-14] VITALS (13 sets, daily range): BP systolic 97–120; BP diastolic 57–79; PULSE 76–85; RESP 12–22; TEMP 36.4–36.8; O2SAT 94–97; BMI 25.0
[2024-01-14] LABS: Absolute Lymphocyte Count 1.12 X10^3/uL (0.83-4.51); Absolute Neutrophil Count 6.9 X10^3/uL (2.0-7.7); Basophil# 0.18 X10^3/uL; Basophil% 1.7 % (0-1); Eosinophil# 0.84 X10^3/uL; Eosinophils% 8.2 % (0-5); Hemoglobin 11.4 g/dL (13.0-16.5); Lymphocyte # 1.12 X10^3/ul (0.83-4.51); Lymphocyte % 10.9 % (19-41); Mean Corp Hgb Conc 31.7 g/dL (32-36); Mean Corpuscular Hgb 30.2 pg (27.0-32.0); Mean Corpuscular Volume 95.5 fL (80-94); Mean Platelet Vol. 9.8 fl (6.2-12.0); Monocyte# 1.01 X10^3/uL; Monocyte% 9.8 % (0-10); NRBC Flagged by Analyzer 0 % (0-5); Platelet Count 326 K/mm3 (150-450); RBC Distribution Width CV 15.5 % (11.6-14.6); RBC Distribution Width SD 53.9 fl (35.1-43.9); Red Blood Count 3.77 M/mm3 (4.6-6.2); White Blood Count 10.3 K/mm3 (4.4-11.0)
--- NOTE | 2024-01-14 00:47 | HP.PCM.HOS_ITS ---
HPI - General General Date of Admission: 01/14/24 Date of Service: 01/14/24 Chief Complaint: Pneumothorax after lung biopsy HPI Narrative ELIO DORAN, is a 83 M underwent lung biopsy for lung abscess history. He has a history of lung abscess for about 2 to 3 months. After biopsy patient felt chest pain on the left side and shortness of breath and increasing the cough for which chest x-ray was done and found to have pneumothorax on the left side. Patient normally wears 2 L of oxygen which was increased to 4 L. In ED, chest x-ray was done which shows pneumothorax on the left upper lobe for which pigtail chest tube was inserted by ED physician. Repeat chest x-ray does not show resolution of pneumothorax but is stable. ED physician consulted tele- PCC and surgeon and patient further admitted. Patient does not have increased shortness of breath but has increased cough after biopsy. He also has cholecystostomy tube by IR at [facility] for acute acalculous cholecystitis and evidence of large gallbladder. Patient was seen by surgeon on 01/05/2024 [facility] Medical History Pulmonary fibrosis Sinus node dysfunction HFrEF (heart failure with reduced ejection fraction) Chronic diarrhea Retroperitoneal hematoma Atherosclerotic heart disease of [place] coronary artery without angina pectoris Obstructive sleep apnea Hyperlipidemia SVT (supraventricular tachycardia) GERD (gastroesophageal reflux disease) COPD (chronic obstructive pulmonary disease) BPH (benign prostatic hyperplasia) Paroxysmal atrial fibrillation Home Medications ?Medication ?Instructions ?Recorded ?Last Taken ?Type rosuvastatin 5 mg tablet (Crestor) 5 mg PO QDAY cholesterol 07/04/17 10/24/23 History cholecalciferol (vitamin D3) 25 25 mcg PO DAILY supplement 05/22/21 10/24/23 History mcg (1,000 unit) tablet metoprolol succinate 25 mg 25 mg PO DAILY AFIB 06/27/21 12/12/23 History tablet,extended release 24 hr nitroglycerin 0.4 mg sublingual 0.4 mg sublingual Q5M PRN CP 06/27/21 Unknown History tablet cyanocobalamin (vitamin B-12) 100 mcg IM QMONTH supplement 03/29/23 10/17/23 History 1,000 mcg/mL injection kit dofetilide 250 mcg capsule 250 mcg PO Q12H afib 03/29/23 12/12/23 History duloxetine 60 mg capsule,delayed See Rx Instructions PO DAILY mood 03/29/23 10/24/23 History release empagliflozin 25 mg tablet 12.5 mg PO DAILY heart 03/29/23 10/24/23 History (Jardiance) finasteride 5 mg tablet 5 mg PO DAILY bph 03/29/23 10/24/23 History levalbuterol HCl 0.63 mg/3 mL 0.63 mg inhalation TID copd 03/29/23 10/24/23 History solution for nebulization midodrine 5 mg tablet 5 mg PO TID blood pressure 03/29/23 10/24/23 History vit C 250 mg-vit E 200 unit-zinc 1 cap PO DAILY supplement 03/29/23 10/24/23 History ox 12.5 [id number] capsule (ICaps AREDS2) budesonide 0.5 mg/2 mL suspension 0.5 mg (2 mL) inhalation BID.RT 04/01/23 10/24/23 Rx for nebulization Asthma #0 mL lorazepam 0.5 mg tablet 0.5 mg PO QHS Anxiety #5 tabs 04/01/23 10/23/23 Rx acetaminophen 500 mg tablet 1,000 mg (2 x 500 mg) PO Q6H PRN 04/10/23 10/23/23 Rx PRN Pain Score 1-3 #0 tabs apixaban 5 mg tablet (Eliquis) 5 mg PO BID BLOOD THINNER #0 tabs 04/10/23 01/11/24 08:00 Rx bumetanide 0.5 mg tablet 1 mg (2 x 0.5 mg) PO MOWEFR EDEMA 04/10/23 11/18/23 Rx #0 tabs ezetimibe 10 mg tablet 10 mg PO QHS cholesterol 10/24/23 Unknown History guaifenesin 1,200 mg tablet, 1,200 mg PO BID mucus relief 10/24/23 Unknown History extended release 12 hr (Mucinex) pantoprazole 40 mg tablet,delayed 40 mg PO DAILY GERD 10/24/23 Unknown History release tiotropium 2.5 mcg-olodaterol 2.5 2 inh inhalation DAILY COPD 10/24/23 Unknown History mcg/actuation mist for inhalation (Stiolto Respimat) methocarbamol 750 mg tablet 750 mg PO BID Muscle Relaxer 11/20/23 Unknown History sucralfate 100 mg/mL oral 1 g PO BID antacid 11/20/23 Unknown History suspension (Carafate) Lactobacillus acidophilus, 1 packet PO TIDCM supplement 12/23/23 Unknown History bulgaricus 100 million cell granules packet (Floranex) daptomycin 1,000 mg/100 mL in 0.9 700 mg IV DAILY antibiotics 12/23/23 12/23/23 History % sodium chlor intravenous piggyback nystatin 100,000 unit/mL oral 500,000 unit PO TID thrush 12/23/23 Unknown History suspension oxycodone 5 mg capsule 5 mg PO Q6H PRN pain 12/23/23 Unknown History piperacillin-tazobactam 3.375 gram 3.375 g IV Q6H antibiotic 12/23/23 12/23/23 17:30 History intravenous solution sodium chloride 1,000 mg soluble 1,000 mg PO TID sodium 12/23/23 Unknown History tablet tamsulosin 0.4 mg capsule 0.8 mg PO DINNER bph 12/23/23 Unknown History Allergy/AdvReac Type Severity Reaction Status Date / Time tramadol Allergy Unknown PT UNSURE Verified 01/13/24 09:44 OF REACTION clindamycin AdvReac Intermediate Rash Verified 01/13/24 09:44 terbinafine AdvReac Intermediate Rash Verified 01/13/24 09:44 Family History Mother , Age 64 from Emphysema COPD (chronic obstructive pulmonary disease) Blood disorder Father No problems noted. Surgical History S/P ablation of atrial fibrillation History of left heart catheterization (05/27/21) History of tonsillectomy History of ankle surgery History of back surgery History of appendectomy History of inguinal hernia repair History of umbilical hernia repair Social History household members: spouse housing: house Smoking Status: Former smoker how long ago did patient quit smokin years ago alcohol intake: current alcohol intake frequency: holidays/special occasions only substance use type: does not use caffeine: Yes Type: coffee Number of servings: 2 ROS ROS Narrative Constitutional: Reports fatigue and weakness. No fever. HEENT: Reports systems reviewed and no addt'l complaints, except as documented Respiratory/Chest: As described in HPI. History of COPD and lung abscess. CVS: Left-sided chest pain at the site of the chest tube. Gastrointestinal: Cholecystostomy tube. No new symptoms. Denies coffee ground emesis, hematemesis or vomiting Genitourinary: Denies burning urination or new urinary tract symptoms Musculoskeletal: Denies acute joint pain or limited range of motion. No acute injury Neurologic: Denies seizure-like symptoms. skin: No ulcer. No rash Endocrinology: Reports systems reviewed and no addt'l complaints, except as documented Hematologic/Lymphatic: Reports systems reviewed and no addt'l complaints, except as documented Rest 14 ROS are negative except as mentioned in HPI Vital Signs Vital Signs Vital Signs: 01/13/24 14:06 01/13/24 14:12 01/13/24 15:12 Temperature 97.9 F 97.9 F 98 F Temperature Source Oral Oral Oral Pulse Rate 74 82 72 Respiratory Rate 23 H 23 H 23 H Respiratory Effort Respiratory Depth Respiratory Pattern Blood Pressure 104/70 104/70 125/77 H Blood Pressure Mean 81 81 93 Pulse Ox 96 95 100 Oxygen Delivery Method Nasal Cannula Nasal Cannula Non-Rebreather Oxygen Flow Rate (L/min) 2 2 EtCo2 (Normal 35-45 , high quality CPR 10-20 & ROSC>/=40mmHg 01/13/24 15:16 01/13/24 17:00 01/13/24 18:00 Temperature 97.5 F L Temperature Source Temporal Pulse Rate 80 77 Respiratory Rate 25 H 22 H Respiratory Effort Short of Breath Respiratory Depth Normal Respiratory Pattern Normal Blood Pressure 111/75 112/99 H Blood Pressure Mean 87 103 Pulse Ox 100 95 Oxygen Delivery Method Non-Rebreather Non-Rebreather Oxygen Flow Rate (L/min) 15 15 EtCo2 (Normal 35-45 , high quality CPR 10-20 & ROSC>/=40mmHg 01/13/24 19:00 01/13/24 19:46 01/13/24 20:00 Temperature 97.8 F 97.8 F Temperature Source Temporal Temporal Pulse Rate 77 81 Respiratory Rate 21 H 22 H Respiratory Effort Respiratory Depth Respiratory Pattern Blood Pressure 110/68 114/75 Blood Pressure Mean 82 88 Pulse Ox 97 97 Oxygen Delivery Method Nasal Cannula Nasal Cannula Oxygen Flow Rate (L/min) 6 4 EtCo2 (Normal 35-45 , high quality CPR 10-20 & ROSC>/=40mmHg 29 01/13/24 21:00 01/13/24 21:06 01/13/24 21:15 Temperature 97.7 F L 97.6 F L 97.7 F L Temperature Source Temporal Temporal Pulse Rate 85 80 83 Respiratory Rate 24 H 22 H 25 H Respiratory Effort Respiratory Depth Respiratory Pattern Blood Pressure 115/65 109/69 110/68 Blood Pressure Mean 81 81 Pulse Ox 94 95 94 Oxygen Delivery Method Nasal Cannula Nasal Cannula Oxygen Flow Rate (L/min) 4 4 EtCo2 (Normal 35-45 , high quality CPR 10-20 & ROSC>/=40mmHg 26 01/13/24 21:30 01/13/24 22:00 01/13/24 23:00 Temperature 97.9 F 97.9 F 97.9 F Temperature Source Temporal Temporal Temporal Pulse Rate 85 86 85 Respiratory Rate 23 H 23 H 21 H Respiratory Effort Respiratory Depth Respiratory Pattern Blood Pressure 108/70 111/65 116/76 Blood Pressure Mean 81 79 89 Pulse Ox 94 96 96 Oxygen Delivery Method Nasal Cannula Nasal Cannula Oxygen Flow Rate (L/min) 4 4 EtCo2 (Normal 35-45 , high quality CPR 10-20 & ROSC>/=40mmHg Weight Weight: 179 lb 7.3 oz Body Mass Index (BMI) 27.3 Physical Exam Narrative General: Alert, Oriented x3, Cooperative HEENT: Atraumatic, PERRLA, EOMI, Normocephalic Oral: Oral mucosa moist. No Gingival or Mucosal Lesions/ Ulcerations Neck: Supple, No JVD, Negative Carotid Bruits Chest wall/Lungs: Air entry diminished in the left upper lobe. Left upper pneumothorax status post pigtail catheter. Mild blood in the chest tube. No air bubble on waterseal drainage. Cardiovascular: Regular rate, Regular Rhythm, Normal S1, Normal S2, No M/G/R Abdomen: Bowel Sounds Present, Soft, Non Tender, Non-Distended : No dysuria. No renal angle tenderness. No suprapubic tenderness. Extremities: No edema, Capillary Refill Less than 3 Seconds Skin: No rashes, No breakdown Musculoskeletal: No Tenderness to Palpation of Joints or Extremities Neurological: Cranial nerves II-XII grossly intact, DTR 2+/4. No acute focal neurological deficit. Psych/Mental Status: Normal Affect, Appropriate. Results Lab / Micro Data 01/13/24 22:11 01/13/24 22:11 Labs: Laboratory Results - last 24 hr 01/13/24 22:11: WBC 10.3, RBC 3.77 L, Hgb 11.4 L, Hct 36.0 L, MCV 95.5 H, MCH 30.2, MCHC 31.7 L, RDW Std Deviation 53.9 H, RDW Coeff of David 15.5 H, Plt Count 326, MPV 9.8, Immature Gran % (Auto) 2.400 H, Neut % (Auto) 67.0, Lymph % (Auto) 10.9 L, [place] % (Auto) 9.8, Eos % (Auto) 8.2 H, Baso % (Auto) 1.7 H, Absolute Neuts (auto) 6.9, Absolute Lymphs (auto) 1.12, Nucleated RBC % 0, Sodium 137, Potassium 4.4, Chloride 103, Carbon Dioxide 29.0, Anion Gap 6, BUN 16, Creatinine 0.90, Estim Creat Clear Calc 58.06, Est GFR (MDRD) Af Amer 103, Est GFR (MDRD) Non-Af 85, BUN/Creatinine Ratio 17.8, Glucose 95, Calcium 9.3, Total Bilirubin 0.60, AST 21, ALT 25, Alkaline Phosphatase 104, Total Protein 6.2 L, A lbumin 2.8 L, Globulin 3.4, Albumin/Globulin Ratio 0.8 L Imaging Radiology Impression Chest X-Ray 01/13/24 17:11 IMPRESSION: Stable left-sided pneumothorax. Electronically Signed: Arcadio Albarran MD at 17:57 EDT , Chest X-Ray 01/13/24 21:40 IMPRESSION: 1. The left side pneumothorax is similar appearance to the prior examination. 2. Bibasilar pulmonary opacities may be atelectasis, scarring, or pneumonia. 3. Left side port catheter is present. Electronically Signed: Ac Rendon DO at 22:07 EDT , Assessment & Plan Assessment/Plan (1) Iatrogenic pneumothorax: PLAN: Plan This 83-year-old gentleman was admitted after iatrogenic pneumothorax 1. Iatrogenic left upper lobe pneumothorax after lung biopsy for lung abscess: Patient is being admitted in PCU. His breathing is stable after chest tube but has mild increased cough. Continue oxygen. Tele-[facility] and general surgery consulted. Continue under waterseal as per Dr. Zapata. DuoNeb every 6 hourly. Mucinex DM ordered. Continue incentive spirometry and PEP for 1 week 2. COPD and chronic lung abscess, pneumonia and bronchiectasis: Patient states he has lung abscess for 2 to 3 months. As per last discharge summary on 12/13/2023 from TCU, patient has left upper lobe Lung abscess, bronchiectasis, left lower lobe pneumonia and was treated with IV Zosyn through 01/01/2024. Consult ID for further opinion. Patient was last admitted in hospital in October 2023 when he was discharged/transferred to [facility]. 3. Chronic HFpEF, chronic A-fib status post ablation: Twelve-lead EKG done which shows sinus rhythm with fusion complexes, LAD. Heart rate is 75/min. QTc 428 ms. Patient has pleuritic chest pain after lung biopsy. Continue home medications. Patient on Tikosyn 250 mcg Q12 hourly continued. 4. Hypertension and dyslipidemia: Monitor BP. Continue home medication to hold antihypertensive medications for SBP less than 130 mmHg. On statin 5. Anxiety and depression: On Cymbalta 6. BPH: On Flomax 7. GERD: On PPI 8. DVT prophylaxis high risk: On enoxaparin 40 m subcu daily. Discontinue if platelet count drops less than 50,000 or hemoglobin less than 8 g% Living will/advanced directive/end of life care: Patient does not have living will or advanced directive. His is power of commercial attorney for health. After discussion of benefits/risks procedures involved with full code, DNR CC arrest and DNR CC, the patient opted for full code. Patient does want artificial life support including intubation, tube feed, ventilator and/chest compression, central venous catheter, vasopressor and DC shock if needed Total time spent in [id number] encounter in discussion of advanced directive 17 minutes. Charges/Coding Visit Charges Inpatient E&M: 42456 Init Hosp L3 Procedures Hospitalists Procedures: 17464 Advncd Care Plan 30 Min
[2024-01-14] MEDS: Piperacil/Tazobactam 3.375 GM in 0.9% Normal Saline (50mL MB+) 50 ML IV (00:49)
--- NOTE | 2024-01-14 01:00 | ED.RN ---
Unable to flush TIM Picc. could benefit from ateplase. choly tube flushed w/10cc NS, per TCU orders.
[2024-01-14] MEDS: Acetaminophen 325 MG Tablet 650 MG PO ×2 (03:09→21:41)
[2024-01-14] MEDS: Morphine 2 MG/ML Syringe IV ×2 (03:22→23:34)
[2024-01-14] MEDS: 0.9% Saline Lock 10 ML Syringe IV ×2 (03:23→23:34)
--- NOTE | 2024-01-14 04:27 | EKG12_ITS ---
Test Reason : ADMISSION EKG Blood Pressure : */* mmHG Vent. Rate : 75 BPM Atrial Rate : 75 BPM P-R Int : 206 ms QRS Dur : 90 ms QT Int : 384 ms P-R-T Axes : 60 -49 42 degrees QTcB Int : 428 ms Sinus rhythm with Fusion complexes Left axis deviation Abnormal ECG When compared with ECG of 12-Dec-2023 18:40, Fusion complexes are now Present Confirmed by TOMÁS DEAN, DORINA ([id number]), staff editor IVANNA NEWMAN ([id number]) on 01/15/2024 11:15:04 AM Referred By: Confirmed By: DORINA ENGLAND MD
[2024-01-14] MEDS: 0.9% Normal Saline (1000mL) 1,000 ML 75 ML IV (05:52)
--- NOTE | 2024-01-14 05:55 | RAD_ITS ---
EXAM: XR CHEST, 1 VIEW CLINICAL INDICATION: pneumothorax TECHNIQUE: Frontal view of the chest. COMPARISON: 01/13/2024. FINDINGS: LUNGS AND PLEURAL SPACES: Decreasing atelectasis and patchy opacity left lung base. No effusion. Near complete resolution of the left-sided pneumothorax. HEART: Unremarkable. Cardiac silhouette not enlarged. MEDIASTINUM: Central airways and mediastinal contour are unremarkable. BONES/JOINTS: Unremarkable. No acute fracture. SOFT TISSUES: Unremarkable. TUBES, LINES AND DEVICES: No change in the small caliber left-sided chest tube. No change in the left-sided PICC. RAD/Chest 1 View (Portable) IMPRESSION: 1. No change in the left-sided PICC. 2. No change in the small caliber left-sided chest tube. 3. Near complete resolution of the left-sided pneumothorax. 4. Decreasing atelectasis and patchy opacity left lung base. Electronically Signed: Brooks Peck MD at 7:04 EDT ,
[2024-01-14 06:25] LABS: Absolute Lymphocyte Count 1.08 X10^3/uL (0.83-4.51); Absolute Neutrophil Count 6.8 X10^3/uL (2.0-7.7); Basophil# 0.16 X10^3/uL; Basophil% 1.6 % (0-1); Eosinophils% 8.9 % (0-5); Hematocrit 35.7 % (40-54); Lymphocyte # 1.08 X10^3/ul (0.83-4.51); Lymphocyte % 10.7 % (19-41); Mean Corp Hgb Conc 30.8 g/dL (32-36); Mean Corpuscular Hgb 29.5 pg (27.0-32.0); Mean Corpuscular Volume 95.7 fL (80-94); Mean Platelet Vol. 9.7 fl (6.2-12.0); Monocyte# 1.04 X10^3/uL; Monocyte% 10.3 % (0-10); NRBC Flagged by Analyzer 0 % (0-5); Neutrophil # 6.79 X10^3/uL (2.7-7.7); Neutrophil % 67.4 % (47-70); Platelet Count 317 K/mm3 (150-450); RBC Distribution Width CV 15.3 % (11.6-14.6); RBC Distribution Width SD 53.4 fl (35.1-43.9); Red Blood Count 3.73 M/mm3 (4.6-6.2); White Blood Count 10.1 K/mm3 (4.4-11.0)
[2024-01-14 06:35] LABS: Magnesium 2.3 mg/dL (1.6-2.6)
[2024-01-14 06:45] LABS: Anion Gap 6 (5-15); BUN 15 mg/dL (7-18); BUN/Creat Ratio 18.1 RATIO (10-20); Calcium,Total 8.9 mg/dL (8.5-10.1); Chloride 104 mmol/L (98-107); Creatinine, Serum 0.83 mg/dL (0.70-1.30); EST Glomerular Filtration Rate 94 mL/min (>60); Est Glom Filt Rate - Afr Amer 113 mL/min (>60); Estimated Creatinine Clearance 62.95 ml/min; Glucose 91 mg/dL (74-106); Potassium 4.1 mmol/L (3.5-5.1); Sodium Level 136 mmol/L (136-145)
[2024-01-14 06:59] LABS: International Normalized Ratio 1.2; Prothrombin Time (Protime)PT. 15.2 SECONDS (11.7-14.9)
[2024-01-14] MEDS: levalbuterol HCL 0.63 MG/3 ML VIAL.NEB INHALATION ×3 (07:20→21:58)
[2024-01-14] MEDS: Budesonide Respules 0.5 MG/2 ML AMPUL.NEB. INHALATION ×2 (07:32→19:00)
--- NOTE | 2024-01-14 07:53 | CON.PCM.SX_ITS ---
Assessment & Plan Assessment/Plan (1) Iatrogenic pneumothorax: PLAN: The patient had pneumothorax from lung biopsy yesterday. Chest x-ray today appears to have no pneumothorax. I placed his chest tube to Heimlich valve this morning and off of waterseal. I will repeat a chest x-ray in the morning and if his chest x-ray is stable in the morning I will remove his tube tomorrow morning and he can go back to TCU. Abimael Zapata MD Pager: [facility] [address] [place] [address], [address] [place] [address] Office: HPI Consult Data Date of Consult: 01/14/24 HPI Narrative HPI Narrative: ELIO DORAN, is a 83 M who presents from the TCU after a lung biopsy. The patient had mass versus infection in the lung and had a biopsy which caused a pneumothorax. He was sent to the emergency room and a percutaneous chest tube was placed. The patient reports that he is having pain with deep breathing other than that he is doing well with no shortness of breath. [facility] Medical History Pulmonary fibrosis Sinus node dysfunction HFrEF (heart failure with reduced ejection fraction) Chronic diarrhea Retroperitoneal hematoma Atherosclerotic heart disease of [place] coronary artery without angina pectoris Obstructive sleep apnea Hyperlipidemia SVT (supraventricular tachycardia) GERD (gastroesophageal reflux disease) COPD (chronic obstructive pulmonary disease) BPH (benign prostatic hyperplasia) Paroxysmal atrial fibrillation Home Medications ?Medication ?Instructions ?Recorded ?Last Taken ?Type rosuvastatin 5 mg tablet (Crestor) 5 mg PO QDAY cholesterol 07/04/17 10/24/23 History cholecalciferol (vitamin D3) 25 25 mcg PO DAILY supplement 05/22/21 10/24/23 History mcg (1,000 unit) tablet metoprolol succinate 25 mg 25 mg PO DAILY AFIB 06/27/21 12/12/23 History tablet,extended release 24 hr nitroglycerin 0.4 mg sublingual 0.4 mg sublingual Q5M PRN CP 06/27/21 Unknown History tablet cyanocobalamin (vitamin B-12) 100 mcg IM QMONTH supplement 03/29/23 10/17/23 History 1,000 mcg/mL injection kit dofetilide 250 mcg capsule 250 mcg PO Q12H afib 03/29/23 12/12/23 History duloxetine 60 mg capsule,delayed See Rx Instructions PO DAILY mood 03/29/23 10/24/23 History release empagliflozin 25 mg tablet 12.5 mg PO DAILY heart 03/29/23 10/24/23 History (Jardiance) finasteride 5 mg tablet 5 mg PO DAILY bph 03/29/23 10/24/23 History levalbuterol HCl 0.63 mg/3 mL 0.63 mg inhalation TID copd 03/29/23 10/24/23 History solution for nebulization midodrine 5 mg tablet 5 mg PO TID blood pressure 03/29/23 10/24/23 History vit C 250 mg-vit E 200 unit-zinc 1 cap PO DAILY supplement 03/29/23 10/24/23 History ox 12.5 bi-ylmwre-djnfgr-zeax capsule (ICaps AREDS2) budesonide 0.5 mg/2 mL suspension 0.5 mg (2 mL) inhalation BID.RT 04/01/23 10/24/23 Rx for nebulization Asthma #0 mL lorazepam 0.5 mg tablet 0.5 mg PO QHS Anxiety #5 tabs 04/01/23 10/23/23 Rx acetaminophen 500 mg tablet 1,000 mg (2 x 500 mg) PO Q6H PRN 04/10/23 10/23/23 Rx PRN Pain Score 1-3 #0 tabs apixaban 5 mg tablet (Eliquis) 5 mg PO BID BLOOD THINNER #0 tabs 04/10/23 01/11/24 08:00 Rx bumetanide 0.5 mg tablet 1 mg (2 x 0.5 mg) PO MOWEFR EDEMA 04/10/23 11/18/23 Rx #0 tabs ezetimibe 10 mg tablet 10 mg PO QHS cholesterol 10/24/23 Unknown History guaifenesin 1,200 mg tablet, 1,200 mg PO BID mucus relief 10/24/23 Unknown History extended release 12 hr (Mucinex) pantoprazole 40 mg tablet,delayed 40 mg PO DAILY GERD 10/24/23 Unknown History release tiotropium 2.5 mcg-olodaterol 2.5 2 inh inhalation DAILY COPD 10/24/23 Unknown History mcg/actuation mist for inhalation (Stiolto Respimat) methocarbamol 750 mg tablet 750 mg PO BID Muscle Relaxer 11/20/23 Unknown History sucralfate 100 mg/mL oral 1 g PO BID antacid 11/20/23 Unknown History suspension (Carafate) Lactobacillus acidophilus, 1 packet PO TIDCM supplement 12/23/23 Unknown History bulgaricus 100 million cell granules packet (Floranex) daptomycin 1,000 mg/100 mL in 0.9 700 mg IV DAILY antibiotics 12/23/23 12/23/23 History % sodium chlor intravenous piggyback nystatin 100,000 unit/mL oral 500,000 unit PO TID thrush 12/23/23 Unknown History suspension oxycodone 5 mg capsule 5 mg PO Q6H PRN pain 12/23/23 Unknown History piperacillin-tazobactam 3.375 gram 3.375 g IV Q6H antibiotic 12/23/23 12/23/23 17:30 History intravenous solution sodium chloride 1,000 mg soluble 1,000 mg PO TID sodium 12/23/23 Unknown History tablet tamsulosin 0.4 mg capsule 0.8 mg PO DINNER bph 12/23/23 Unknown History Allergy/AdvReac Type Severity Reaction Status Date / Time tramadol Allergy Unknown PT UNSURE Verified 01/13/24 09:44 OF REACTION clindamycin AdvReac Intermediate Rash Verified 01/13/24 09:44 terbinafine AdvReac Intermediate Rash Verified 01/13/24 09:44 Family History Mother , Age 64 from Emphysema COPD (chronic obstructive pulmonary disease) Blood disorder Father No problems noted. Surgical History S/P ablation of atrial fibrillation History of left heart catheterization (05/27/21) History of tonsillectomy History of ankle surgery History of back surgery History of appendectomy History of inguinal hernia repair History of umbilical hernia repair Social History household members: spouse housing: house Smoking Status: Former smoker how long ago did patient quit smokin years ago alcohol intake: current alcohol intake frequency: holidays/special occasions only substance use type: does not use caffeine: Yes Type: coffee Number of servings: 2 Physical Exam Const alert and oriented x3 HEENT normocephalic Head and Scalp: normal to inspection Resp normal respiratory effort Auscultation: Negative for rhonchi or diminished lung sounds Cardio Rate: regular rate Rhythm: regular rhythm GI normal to inspection, nondistended, normoactive bowel sounds Lab / Micro Data 01/14/24 05:18 01/14/24 05:18 Labs: Laboratory Results - last 24 hr 01/13/24 22:11: WBC 10.3, RBC 3.77 L, Hgb 11.4 L, Hct 36.0 L, MCV 95.5 H, MCH 30.2, MCHC 31.7 L, RDW Std Deviation 53.9 H, RDW Coeff of David 15.5 H, Plt Count 326, MPV 9.8, Immature Gran % (Auto) 2.400 H, Neut % (Auto) 67.0, Lymph % (Auto) 10.9 L, Cataño % (Auto) 9.8, Eos % (Auto) 8.2 H, Baso % (Auto) 1.7 H, Absolute Neuts (auto) 6.9, Absolute Lymphs (auto) 1.12, Nucleated RBC % 0, Sodium 137, Potassium 4.4, Chloride 103, Carbon Dioxide 29.0, Anion Gap 6, BUN 16, Creatinine 0.90, Estim Creat Clear Calc 58.06, Est GFR (MDRD) Af Amer 103, Est GFR (MDRD) Non-Af 85, BUN/Creatinine Ratio 17.8, Glucose 95, Calcium 9.3, Total Bilirubin 0.60, AST 21, ALT 25, Alkaline Phosphatase 104, Total Protein 6.2 L, A lbumin 2.8 L, Globulin 3.4, Albumin/Globulin Ratio 0.8 L 01/14/24 05:18: WBC 10.1, RBC 3.73 L, Hgb 11.0 L, Hct 35.7 L, MCV 95.7 H, MCH 29.5, MCHC 30.8 L, RDW Std Deviation 53.4 H, RDW Coeff of David 15.3 H, Plt Count 317, MPV 9.7, Immature Gran % (Auto) 1.100 H, Neut % (Auto) 67.4, Lymph % (Auto) 10.7 L, Cataño % (Auto) 10.3 H, Eos % (Auto) 8.9 H, Baso % (Auto) 1.6 H, Absolute Neuts (auto) 6.8, Absolute Lymphs (auto) 1.08, Nucleated RBC % 0, PT 15.2 H, INR 1.2, Sodium 136, Potassium 4.1, Chloride 104, Carbon Dioxide 26.0, Anion Gap 6, BUN 15, Creatinine 0.83, Estim Creat Clear Calc 62.95, Est GFR (MDRD) Af Amer 113, Est GFR (MDRD) Non-Af 94, BUN/Creatinine Ratio 18.1, Glucose 91, Calcium 8.9, Magnesium 2.3, TSH 3.890 H Imaging Radiology Impression Chest X-Ray 01/13/24 17:11 IMPRESSION: Stable left-sided pneumothorax. Electronically Signed: Arcadio Albarran MD at 17:57 EDT , Chest X-Ray 01/13/24 21:40 IMPRESSION: 1. The left side pneumothorax is similar appearance to the prior examination. 2. Bibasilar pulmonary opacities may be atelectasis, scarring, or pneumonia. 3. Left side port catheter is present. Electronically Signed: Ac Rendon DO at 22:07 EDT , Chest X-Ray 01/14/24 05:55 IMPRESSION: 1. No change in the left-sided PICC. 2. No change in the small caliber left-sided chest tube. 3. Near complete resolution of the left-sided pneumothorax. 4. Decreasing atelectasis and patchy opacity left lung base. Electronically Signed: Brooks Peck MD at 7:04 EDT ,
[2024-01-14] MEDS: oxyCODONE 5 MG Tablet PO ×3 (08:21→21:40)
[2024-01-14] MEDS: APIXABAN 5 MG TABLET PO ×2 (08:22→21:42)
[2024-01-14] MEDS: Empagliflozin 25 MG Tablet 12.5 MG PO (08:22)
[2024-01-14] MEDS: guaiFENesin/D-Methorphan TAB.SR.12H 2 TABLET PO ×2 (08:31→21:42)
[2024-01-14] MEDS: Senna/Docusate Sodium 1 Tablet 2 TABLET PO ×2 (08:32→21:43)
--- NOTE | 2024-01-14 10:20 | PCM.CONS.GEN ---
Assessment & Plan Assessment/Plan (1) Iatrogenic pneumothorax: (2) VRE bacteremia: (3) Acalculous cholecystitis: (4) Abscess of lung: PLAN: Finished zosyn, finished dapto. Agree with holding off on additional abx while biopsy is pending. Will follow, thank you HPI Consult Data Date of Consult: 01/14/24 HPI Narrative Reason for Consultation: lung mass HPI Narrative: ELIO DORAN, is a 83 M with CHF, CAD, BPH, COPD, presented 10/24/23 to [facility] ED with 3 weeks hemoptysis, dyspnea, not feeling well. No fever, no night sweats. CT showed lung abscess, and he was covid (+). Transferred to [facility], sputum cx neg, seen by pulm and ID, discharged on empiric course po augmentin. Sx were not improving (though hemoptysis had resolved). Saw his pulm Dr. Donald, and arranged to be admitted to TCU and started on zosyn. In early December, developed cholecystitis and VRE bacteremia, transferred to [facility], gallo drain placed, zosyn continued, started on dapto. Zosyn finished 12/31. Dapto finished 01/11. Went to IR for lung biopsy 01/12, developed pneumothorax, now admitted with chest tube in place. Feeling ok. Daughter thinks dapto made him tired and nauseated for past few weeks. Breathing ok this AM, no fever, picc still in place. Full ROS performed and neg except as noted above. [facility] Medical History Pulmonary fibrosis Sinus node dysfunction HFrEF (heart failure with reduced ejection fraction) Chronic diarrhea Retroperitoneal hematoma Atherosclerotic heart disease of [place] coronary artery without angina pectoris Obstructive sleep apnea Hyperlipidemia SVT (supraventricular tachycardia) GERD (gastroesophageal reflux disease) COPD (chronic obstructive pulmonary disease) BPH (benign prostatic hyperplasia) Paroxysmal atrial fibrillation Home Medications ?Medication ?Instructions ?Recorded ?Last Taken ?Type rosuvastatin 5 mg tablet (Crestor) 5 mg PO QDAY cholesterol 07/04/17 10/24/23 History cholecalciferol (vitamin D3) 25 25 mcg PO DAILY supplement 05/22/21 10/24/23 History mcg (1,000 unit) tablet metoprolol succinate 25 mg 25 mg PO DAILY AFIB 06/27/21 12/12/23 History tablet,extended release 24 hr nitroglycerin 0.4 mg sublingual 0.4 mg sublingual Q5M PRN CP 06/27/21 Unknown History tablet cyanocobalamin (vitamin B-12) 100 mcg IM QMONTH supplement 03/29/23 10/17/23 History 1,000 mcg/mL injection kit dofetilide 250 mcg capsule 250 mcg PO Q12H afib 03/29/23 12/12/23 History duloxetine 60 mg capsule,delayed See Rx Instructions PO DAILY mood 03/29/23 10/24/23 History release empagliflozin 25 mg tablet 12.5 mg PO DAILY heart 03/29/23 10/24/23 History (Jardiance) finasteride 5 mg tablet 5 mg PO DAILY bph 03/29/23 10/24/23 History levalbuterol HCl 0.63 mg/3 mL 0.63 mg inhalation TID copd 03/29/23 10/24/23 History solution for nebulization midodrine 5 mg tablet 5 mg PO TID blood pressure 03/29/23 10/24/23 History vit C 250 mg-vit E 200 unit-zinc 1 cap PO DAILY supplement 03/29/23 10/24/23 History ox 12.5 [id number]-magqyy-zeax capsule (ICaps AREDS2) budesonide 0.5 mg/2 mL suspension 0.5 mg (2 mL) inhalation BID.RT 04/01/23 10/24/23 Rx for nebulization Asthma #0 mL lorazepam 0.5 mg tablet 0.5 mg PO QHS Anxiety #5 tabs 04/01/23 10/23/23 Rx acetaminophen 500 mg tablet 1,000 mg (2 x 500 mg) PO Q6H PRN 04/10/23 10/23/23 Rx PRN Pain Score 1-3 #0 tabs apixaban 5 mg tablet (Eliquis) 5 mg PO BID BLOOD THINNER #0 tabs 04/10/23 01/11/24 08:00 Rx bumetanide 0.5 mg tablet 1 mg (2 x 0.5 mg) PO MOWEFR EDEMA 04/10/23 11/18/23 Rx #0 tabs ezetimibe 10 mg tablet 10 mg PO QHS cholesterol 10/24/23 Unknown History guaifenesin 1,200 mg tablet, 1,200 mg PO BID mucus relief 10/24/23 Unknown History extended release 12 hr (Mucinex) pantoprazole 40 mg tablet,delayed 40 mg PO DAILY GERD 10/24/23 Unknown History release tiotropium 2.5 mcg-olodaterol 2.5 2 inh inhalation DAILY COPD 10/24/23 Unknown History mcg/actuation mist for inhalation (Stiolto Respimat) methocarbamol 750 mg tablet 750 mg PO BID Muscle Relaxer 11/20/23 Unknown History sucralfate 100 mg/mL oral 1 g PO BID antacid 11/20/23 Unknown History suspension (Carafate) Lactobacillus acidophilus, 1 packet PO TIDCM supplement 12/23/23 Unknown History bulgaricus 100 million cell granules packet (Floranex) oxycodone 5 mg capsule 5 mg PO Q6H PRN pain 12/23/23 Unknown History piperacillin-tazobactam 3.375 gram 3.375 g IV Q6H antibiotic 12/23/23 12/23/23 17:30 History intravenous solution tamsulosin 0.4 mg capsule 0.8 mg PO DINNER bph 12/23/23 Unknown History Allergy/AdvReac Type Severity Reaction Status Date / Time tramadol Allergy Unknown PT UNSURE Verified 01/13/24 09:44 OF REACTION clindamycin AdvReac Intermediate Rash Verified 01/13/24 09:44 terbinafine AdvReac Intermediate Rash Verified 01/13/24 09:44 Family History Mother , Age 64 from Emphysema COPD (chronic obstructive pulmonary disease) Blood disorder Father No problems noted. Surgical History S/P ablation of atrial fibrillation History of left heart catheterization (05/27/21) History of tonsillectomy History of ankle surgery History of back surgery History of appendectomy History of inguinal hernia repair History of umbilical hernia repair Social History household members: spouse housing: house Smoking Status: Former smoker how long ago did patient quit smokin years ago alcohol intake: current alcohol intake frequency: holidays/special occasions only substance use type: does not use caffeine: Yes Type: coffee Number of servings: 2 Physical Exam Const alert and no apparent distress General Appearance: cooperative HEENT normocephalic and head/scalp atraumatic Eyes PERRL and EOMs intact bilaterally Neck supple and No nodes Resp Auscultation: diminished lung sounds Cardio regular rate and regular rhythm GI soft to palpation, non-tender and non-distended GI Narrative: bili drain in place Skin no rashes or lesions noted Neuro CN's II-XII intact bilaterally Lab / Micro Data Attestation: I reviewed the patient's lab results. 01/14/24 05:18 01/14/24 05:18 Labs: Laboratory Results - last 24 hr 01/13/24 22:11: WBC 10.3, RBC 3.77 L, Hgb 11.4 L, Hct 36.0 L, MCV 95.5 H, MCH 30.2, MCHC 31.7 L, RDW Std Deviation 53.9 H, RDW Coeff of David 15.5 H, Plt Count 326, MPV 9.8, Immature Gran % (Auto) 2.400 H, Neut % (Auto) 67.0, Lymph % (Auto) 10.9 L, [place]fer[place] % (Auto) 9.8, Eos % (Auto) 8.2 H, Baso % (Auto) 1.7 H, Absolute Neuts (auto) 6.9, Absolute Lymphs (auto) 1.12, Nucleated RBC % 0, Sodium 137, Potassium 4.4, Chloride 103, Carbon Dioxide 29.0, Anion Gap 6, BUN 16, Creatinine 0.90, Estim Creat Clear Calc 58.06, Est GFR (MDRD) Af Amer 103, Est GFR (MDRD) Non-Af 85, BUN/Creatinine Ratio 17.8, Glucose 95, Calcium 9.3, Total Bilirubin 0.60, AST 21, ALT 25, Alkaline Phosphatase 104, Total Protein 6.2 L, Albumin 2.8 L, Globulin 3.4, Albumin/Globulin Ratio 0.8 L 01/14/24 05:18: WBC 10.1, RBC 3.73 L, Hgb 11.0 L, Hct 35.7 L, MCV 95.7 H, MCH 29.5, MCHC 30.8 L, RDW Std Deviation 53.4 H, RDW Coeff of David 15.3 H, Plt Count 317, MPV 9.7, Immature Gran % (Auto) 1.100 H, Neut % (Auto) 67.4, Lymph % (Auto) 10.7 L, [place]fer[place] % (Auto) 10.3 H, Eos % (Auto) 8.9 H, Baso % (Auto) 1.6 H, Absolute Neuts (auto) 6.8, Absolute Lymphs (auto) 1.08, Nucleated RBC % 0, PT 15.2 H, INR 1.2, Sodium 136, Potassium 4.1, Chloride 104, Carbon Dioxide 26.0, Anion Gap 6, BUN 15, Creatinine 0.83, Estim Creat Clear Calc 62.95, Est GFR (MDRD) Af Amer 113, Est GFR (MDRD) Non-Af 94, BUN/Creatinine Ratio 18.1, Glucose 91, Calcium 8.9, Magnesium 2.3, TSH 3.890 H Imaging Radiology Impression Chest X-Ray 01/13/24 17:11 IMPRESSION: Stable left-sided pneumothorax. Electronically Signed: Arcadio Albarran MD at 17:57 EDT , Chest X-Ray 01/13/24 21:40 IMPRESSION: 1. The left side pneumothorax is similar appearance to the prior examination. 2. Bibasilar pulmonary opacities may be atelectasis, scarring, or pneumonia. 3. Left side port catheter is present. Electronically Signed: Ac Rendon DO at 22:07 EDT , Chest X-Ray 01/14/24 05:55 IMPRESSION: 1. No change in the left-sided PICC. 2. No change in the small caliber left-sided chest tube. 3. Near complete resolution of the left-sided pneumothorax. 4. Decreasing atelectasis and patchy opacity left lung base. Electronically Signed: Brooks Peck MD at 7:04 EDT ,
[2024-01-14] MEDS: Dofetilide 250 MCG Capsule PO ×2 (10:54→21:59)
--- NOTE | 2024-01-14 14:37 | PN_ITS ---
Subjective Subjective Patient seen and examined. He has no complaints. Pain is well-controlled. The pigtail catheter was taken off of suction today. He does admit to some pain with breathing and. He denies any fever or chills and review of symptoms otherwise negative. Objective Data Objective Data Vital Signs: Vital Signs Temp Pulse Resp BP Pulse Ox O2 Del Method O2 Flow Rate 97.7 F L 76 20 H 102/63 95 Nasal Cannula 2 01/14/24 08:43 01/14/24 13:48 01/14/24 13:48 01/14/24 08:43 01/14/24 08:43 01/14/24 08:54 01/14/24 08:54 Oxygen Flow Rate (L/min) 2 Oxygen Delivery Method Nasal Cannula Weight: 164 lb 10.965 oz Body Mass Index (BMI) 25.0 Intake & Output: Intake and Output for Last 24 Hours 01/12/24 01/13/24 01/14/24 23:59 23:59 23:59 Intake Total 110 / 110 Output Total 200 / 200 0 / 0 Balance -200 / -200 110 / 110 Lab / Micro Data 01/14/24 05:18 01/14/24 05:18 Labs: Laboratory Results - last 24 hr 01/13/24 22:11: WBC 10.3, RBC 3.77 L, Hgb 11.4 L, Hct 36.0 L, MCV 95.5 H, MCH 30.2, MCHC 31.7 L, RDW Std Deviation 53.9 H, RDW Coeff of David 15.5 H, Plt Count 326, MPV 9.8, Immature Gran % (Auto) 2.400 H, Neut % (Auto) 67.0, Lymph % (Auto) 10.9 L, [place] % (Auto) 9.8, Eos % (Auto) 8.2 H, Baso % (Auto) 1.7 H, Absolute Neuts (auto) 6.9, Absolute Lymphs (auto) 1.12, Nucleated RBC % 0, Sodium 137, Potassium 4.4, Chloride 103, Carbon Dioxide 29.0, Anion Gap 6, BUN 16, Creatinine 0.90, Estim Creat Clear Calc 58.06, Est GFR (MDRD) Af Amer 103, Est GFR (MDRD) Non-Af 85, BUN/Creatinine Ratio 17.8, Glucose 95, Calcium 9.3, Total Bilirubin 0.60, AST 21, ALT 25, Alkaline Phosphatase 104, Total Protein 6.2 L, A lbumin 2.8 L, Globulin 3.4, Albumin/Globulin Ratio 0.8 L 01/14/24 05:18: WBC 10.1, RBC 3.73 L, Hgb 11.0 L, Hct 35.7 L, MCV 95.7 H, MCH 29.5, MCHC 30.8 L, RDW Std Deviation 53.4 H, RDW Coeff of David 15.3 H, Plt Count 317, MPV 9.7, Immature Gran % (Auto) 1.100 H, Neut % (Auto) 67.4, Lymph % (Auto) 10.7 L, [place] % (Auto) 10.3 H, Eos % (Auto) 8.9 H, Baso % (Auto) 1.6 H, Absolute Neuts (auto) 6.8, Absolute Lymphs (auto) 1.08, Nucleated RBC % 0, PT 15.2 H, INR 1.2, Sodium 136, Potassium 4.1, Chloride 104, Carbon Dioxide 26.0, Anion Gap 6, BUN 15, Creatinine 0.83, Estim Creat Clear Calc 62.95, Est GFR (MDRD) Af Amer 113, Est GFR (MDRD) Non-Af 94, BUN/Creatinine Ratio 18.1, Glucose 91, Calcium 8.9, Magnesium 2.3, TSH 3.890 H Radiography Diagnostic Testing: Radiology Impression Chest X-Ray 01/13/24 17:11 IMPRESSION: Stable left-sided pneumothorax. Electronically Signed: Arcadio Albarran MD at 17:57 EDT , Chest X-Ray 01/13/24 21:40 IMPRESSION: 1. The left side pneumothorax is similar appearance to the prior examination. 2. Bibasilar pulmonary opacities may be atelectasis, scarring, or pneumonia. 3. Left side port catheter is present. Electronically Signed: Ac Rendon DO at 22:07 EDT , Chest X-Ray 01/14/24 05:55 IMPRESSION: 1. No change in the left-sided PICC. 2. No change in the small caliber left-sided chest tube. 3. Near complete resolution of the left-sided pneumothorax. 4. Decreasing atelectasis and patchy opacity left lung base. Electronically Signed: Brooks Peck MD at 7:04 EDT , Physical Exam Const alert, oriented x3 and no apparent distress General Appearance: cooperative HEENT normocephalic, head/scalp atraumatic and moist oral mucous membranes Eyes PERRL and EOMs intact bilaterally Neck no lymphadenopathy, supple and no JVD Resp Resp Narrative: mildly diminished breath sounds bilaterally, no wheezes or crackles. On 2L of oxygen by nasal canula. Left sided pigtail catheter in situ, not hooked to suction Cardio regular rate, regular rhythm, S1 normal heart sound, S2 normal heart sound and no murmurs GI normal to inspection, nondistended, normoactive bowel sounds, soft to palpation, non-tender and non-distended Extremity normal capillary refill, no clubbing, cyanosis or edema and no calf tenderness General Extremity: no tenderness to palpation of joints or extremities Skin General Skin Exam: no breakdown Neuro CN's II-XII intact bilaterally, no focal motor deficits, no sensory deficits noted and deep tendon reflexes 2+ bilaterally Motor Exam: strength 5/5 throughout and general weakness Psych thought process normal and cooperative Appearance: appropriate Assessment & Plan Assessment/Plan (1) Iatrogenic pneumothorax: PLAN: Plan #Iatrogenic left sided pneumothorax * This occurred after he had a lung biopsy for lung abscess. * Feels better. General surgery on board. Pigtail chest tube catheter taken off of suction today. Chest x-ray showed resolution of the pneumothorax * For repeat chest x-ray tomorrow and management as per general surgery. * Incentive spirometry. * Breathing treatments bronchodilators. Titrate up and 17 saturation above 90%. #Heart failure preserved ejection fraction: Not in exacerbation. On Lasix. 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 He was on IV Zosyn until 01/01/2024 after which she had a lung biopsy as above. * ID consulted. Recommends holding off on any additional antibiotics p.o. biopsies pending #History of recent cholecystitis: * Has a cholecystostomy tube in place draining bilious fluid. * Daughter states he was on daptomycin and zosyn just until a few weeks ago and is due to follow-up at [facility] On January 24 for evaluation for cholecystectomy * Finished a course of Zosyn on 01/01/2024 and daptomycin on 01/12/2024. * Daughter is concerned the drainage is darker and increasing. Cholecystostomy drain is to be emptied every day and flushed with 10 cc of fluid * will hold off on any further antibiotics for now * #A-fib s/p ablation: On Tikosyn and metoprolol as well as eliquis #Hypertension: on metoprolol and Hyperlipidemia: On statin Diet and depression: On Cymbalta DVT prophylaxis: On Eliquis Charges/Coding Visit Charges Inpatient E&M: 16727 Subs Hosp L2
--- NOTE | 2024-01-14 15:08 | CHAPLAIN ---
Type of Pastoral Visit ___ Initial Visit _x__ Follow-up Visit ___ On-call Visit ___ General Patient Visit ___ Spiritual Assessment ___ Family Conference ___ Bereavement ___ Rapid Response ___ Code Blue ___ Other (describe below) Pastoral Care Referral From _x__ Patient ___ Family ___ Nurse ___ Physician ___ Director Of Family Service Center ___ Complex Case Manager ___ Other (describe below) Sacrament/Intervention _x__ Active listening ___ Anointing ___ Religion ___ Bereavement ___ Communion ___ Nannette exploration ___ ___ Life review ___ Prayer ___ Reconciliation ___ Sacrament of Sick _x__ Supportive presence ___ Wedding ___ Other (describe below) Pastoral Comments follow up to patient who had procedure done yesterday; support, conversation
[2024-01-14] MEDS: Ezetimibe 10 MG Tablet PO (21:43)
--- NOTE | 2024-01-14 23:05 | CON.PCM.CC_ITS ---
HPI Consult Data Date of Consult: 01/14/24 HPI Narrative HPI Narrative: ELIO DORAN, is a 83 M who presents [facility] Medical History Pulmonary fibrosis Sinus node dysfunction HFrEF (heart failure with reduced ejection fraction) Chronic diarrhea Retroperitoneal hematoma Atherosclerotic heart disease of [place] coronary artery without angina pectoris Obstructive sleep apnea Hyperlipidemia SVT (supraventricular tachycardia) GERD (gastroesophageal reflux disease) COPD (chronic obstructive pulmonary disease) BPH (benign prostatic hyperplasia) Paroxysmal atrial fibrillation Home Medications ?Medication ?Instructions ?Recorded ?Last Taken ?Type rosuvastatin 5 mg tablet (Crestor) 5 mg PO QDAY cholesterol 07/04/17 10/24/23 History cholecalciferol (vitamin D3) 25 25 mcg PO DAILY supplement 05/22/21 10/24/23 History mcg (1,000 unit) tablet metoprolol succinate 25 mg 25 mg PO DAILY AFIB 06/27/21 12/12/23 History tablet,extended release 24 hr nitroglycerin 0.4 mg sublingual 0.4 mg sublingual Q5M PRN CP 06/27/21 Unknown History tablet cyanocobalamin (vitamin B-12) 100 mcg IM QMONTH supplement 03/29/23 10/17/23 History 1,000 mcg/mL injection kit dofetilide 250 mcg capsule 250 mcg PO Q12H afib 03/29/23 12/12/23 History duloxetine 60 mg capsule,delayed See Rx Instructions PO DAILY mood 03/29/23 10/24/23 History release empagliflozin 25 mg tablet 12.5 mg PO DAILY heart 03/29/23 10/24/23 History (Jardiance) finasteride 5 mg tablet 5 mg PO DAILY bph 03/29/23 10/24/23 History levalbuterol HCl 0.63 mg/3 mL 0.63 mg inhalation TID copd 03/29/23 10/24/23 History solution for nebulization midodrine 5 mg tablet 5 mg PO TID blood pressure 03/29/23 10/24/23 History vit C 250 mg-vit E 200 unit-zinc 1 cap PO DAILY supplement 03/29/23 10/24/23 History ox 12.5 [id number]-ocklcc-zeax capsule (ICaps AREDS2) budesonide 0.5 mg/2 mL suspension 0.5 mg (2 mL) inhalation BID.RT 04/01/23 10/24/23 Rx for nebulization Asthma #0 mL lorazepam 0.5 mg tablet 0.5 mg PO QHS Anxiety #5 tabs 04/01/23 10/23/23 Rx acetaminophen 500 mg tablet 1,000 mg (2 x 500 mg) PO Q6H PRN 04/10/23 10/23/23 Rx PRN Pain Score 1-3 #0 tabs apixaban 5 mg tablet (Eliquis) 5 mg PO BID BLOOD THINNER #0 tabs 04/10/23 01/11/24 08:00 Rx bumetanide 0.5 mg tablet 1 mg (2 x 0.5 mg) PO MOWEFR EDEMA 04/10/23 11/18/23 Rx #0 tabs ezetimibe 10 mg tablet 10 mg PO QHS cholesterol 10/24/23 Unknown History guaifenesin 1,200 mg tablet, 1,200 mg PO BID mucus relief 10/24/23 Unknown History extended release 12 hr (Mucinex) pantoprazole 40 mg tablet,delayed 40 mg PO DAILY GERD 10/24/23 Unknown History release tiotropium 2.5 mcg-olodaterol 2.5 2 inh inhalation DAILY COPD 10/24/23 Unknown History mcg/actuation mist for inhalation (Stiolto Respimat) methocarbamol 750 mg tablet 750 mg PO BID Muscle Relaxer 11/20/23 Unknown History sucralfate 100 mg/mL oral 1 g PO BID antacid 11/20/23 Unknown History suspension (Carafate) Lactobacillus acidophilus, 1 packet PO TIDCM supplement 12/23/23 Unknown History bulgaricus 100 million cell granules packet (Floranex) oxycodone 5 mg capsule 5 mg PO Q6H PRN pain 12/23/23 Unknown History piperacillin-tazobactam 3.375 gram 3.375 g IV Q6H antibiotic 12/23/23 12/23/23 17:30 History intravenous solution tamsulosin 0.4 mg capsule 0.8 mg PO DINNER bph 12/23/23 Unknown History Allergy/AdvReac Type Severity Reaction Status Date / Time tramadol Allergy Unknown PT UNSURE Verified 01/13/24 09:44 OF REACTION clindamycin AdvReac Intermediate Rash Verified 01/13/24 09:44 terbinafine AdvReac Intermediate Rash Verified 01/13/24 09:44 Family History Mother , Age 64 from Emphysema COPD (chronic obstructive pulmonary disease) Blood disorder Father No problems noted. Surgical History S/P ablation of atrial fibrillation History of left heart catheterization (05/27/21) History of tonsillectomy History of ankle surgery History of back surgery History of appendectomy History of inguinal hernia repair History of umbilical hernia repair Social History household members: spouse housing: house Smoking Status: Former smoker how long ago did patient quit smokin years ago alcohol intake: current alcohol intake frequency: holidays/special occasions only substance use type: does not use caffeine: Yes Type: coffee Number of servings: 2 Objective Data Objective Data Vital Signs: Vital Signs Last response 3 Temperature 36.6 C 01/14/24 21:26 Temperature Source Temporal 01/14/24 21:26 Pulse Rate 79 01/14/24 22:00 Pulse Strength Normal (2+) 01/14/24 21:30 Respiratory Rate 20 H 01/14/24 22:00 Respiratory Effort Normal, Non-Labored 01/14/24 21:20 Respiratory Depth Normal 01/14/24 21:20 Respiratory Pattern Normal 01/14/24 22:00 Blood Pressure 106/66 01/14/24 21:26 Blood Pressure Mean 79 01/14/24 21:26 Blood Pressure Source Monitor 01/14/24 21:26 Blood Pressure Position Semi-Fowlers 01/14/24 21:26 Blood Pressure Location Right Arm 01/14/24 21:26 Pulse Ox 97 01/14/24 21:26 Oxygen Delivery Method Nasal Cannula 01/14/24 21:26 Oxygen Flow Rate (L/min) 2 01/14/24 21:26 EtCo2 (Normal 35-45 , high quality CPR 10-20 & ROSC>/=40mmHg 26 01/13/24 21:06 I&O: I&O Last 24 Hours 3 01/13/24 01/14/24 01/14/24 23:59 11:59 23:59 Intake Total 110 / 1110 1000 / 1110 Output Total 200 / 200 0 / 100 100 / 100 Balance -200 / -200 110 / 1010 900 / 1010 I&O: Total Stay 3 01/13/24 14:03 thru 01/14/24 21:30 Intake Total 1110 Output Total 300 Balance 810 Current Meds Ordered / Administered: Current meds ordered / Administered 3 Generic Name Dose Route Start Last Admin Trade Name Freq PRN Reason Stop Dose Admin Acetaminophen 650 mg 01/14/24 02:24 01/14/24 21:41 Acetaminophen 325 Mg Tablet PO 650 mg Q6H PRN PRN Administration Pain 1-10 Or Fever >100.7 Acetaminophen 1,000 mg 01/14/24 05:20 Acetaminophen 500 Mg Tablet PO Q8H PRN PRN Pain Score 1-10 Apixaban 5 mg 01/14/24 10:00 01/14/24 21:42 Apixaban 5 Mg Tablet PO 5 mg BID GIOVANNI Administration Atorvastatin Calcium 10 mg 01/15/24 22:00 Atorvastatin Calcium 10 Mg Tablet PO QHS [facility] Bisacodyl 5 mg 01/14/24 04:42 Bisacodyl 5 Mg Tablet PO DAILY PRN PRN Constipation Budesonide 0.5 mg 01/14/24 05:30 01/14/24 19:00 Budesonide Respules 0.5 Mg/2 Ml Ampul.Neb. INHALATION 0.5 mg BID.RT GIOVANNI Administration Bumetanide 1 mg 01/15/24 10:00 Bumetanide 0.5 Mg Tablet PO [id number] [facility] Protocol Cholecalciferol 25 mcg 01/15/24 10:00 Cholecalciferol (Vit D3) 25 Mcg Tablet (1,000 Units) PO DAILY [facility] Dofetilide 250 mcg 01/13/24 22:45 01/14/24 21:59 Dofetilide 250 Mcg Capsule PO 250 mcg Q12 GIOVANNI Administration Duloxetine HCl 120 mg 01/15/24 10:00 Duloxetine Hcl 60 Mg Capsule PO DAILY [facility] Ezetimibe 10 mg 01/14/24 22:00 01/14/24 21:43 Ezetimibe 10 Mg Tablet PO 10 mg QHS GIOVANNI Administration Empagliflozin 12.5 mg 01/14/24 10:00 01/14/24 08:22 Empagliflozin 25 Mg Tablet PO 12.5 mg DAILY GIOVANNI Administration Finasteride 5 mg 01/15/24 10:00 Finasteride 5 Mg Tablet PO DAILY [facility] Guaifenesin 2 tablet 01/14/24 10:00 01/14/24 21:42 Guaifenesin/D-Methorphan Tab.Sr.12h PO 2 tablet BID [facility] Administration Levalbuterol HCl 0.63 mg 01/14/24 14:00 01/14/24 22:44 Levalbuterol Hcl 0.63 Mg/3 Ml Vial.Neb INHALATION Not Given TID [facility] Lorazepam 0.5 mg 01/15/24 22:00 Lorazepam 0.5 Mg Tablet PO QHS [facility] Metoprolol Succinate 25 mg 01/15/24 10:00 Metoprolol(Xl)Succ 25 Mg Tablet PO DAILY [facility] Protocol Midodrine 5 mg 01/15/24 06:00 Midodrine Hcl 5 Mg Tablet PO TID [facility] Morphine Sulfate 2 mg 01/14/24 03:09 01/14/24 03:22 Morphine 2 Mg/Ml Syringe IV 2 mg Q3H PRN PRN Administration Pain Score 6-10 Nitroglycerin 0.4 mg 01/14/24 02:24 Nitroglycerin (Inpatient Use) 0.4 Mg Tab.Subl SL Q5M PRN CARDIAC/CHEST PAIN Non-Formulary Medication 2 inh 01/15/24 10:00 Tiotropium-Olodaterol [Stiolto Respimat] INHALATION DAILY [facility] Ondansetron HCl 4 mg 01/14/24 04:42 Ondansetron 4 Mg/2 Ml Vial IV Q8H PRN PRN NAUSEA/VOMITING Oxycodone HCl 2.5 - 5 mg 01/14/24 04:42 01/14/24 21:40 Oxycodone 5 Mg Tablet PO 5 mg Q4H PRN PRN Administration Pain Score 4-10 Pantoprazole Sodium 40 mg 01/15/24 10:00 Pantoprazole Sodium 40 Mg Tablet PO DAILY [facility] Prochlorperazine Edisylate 5 mg 01/14/24 02:24 Prochlorperazine 10 Mg/2 Ml Vial IV Q4H PRN PRN Breakthrough Nausea/Vomiting Senna/Docusate Sodium 2 tablet 01/14/24 10:00 01/14/24 21:43 Senna/Docusate Sodium 1 Tablet PO 2 tablet BID [facility] Administration Sodium Chloride 10 - 40 ml 01/14/24 02:26 01/14/24 03:23 0.9% Saline Lock 10 Ml Syringe IV 30 ml UD PRN Administration SALINE FLUSH Tamsulosin HCl 0.8 mg 01/14/24 22:40 Tamsulosin Hcl 0.4 Mg Capsule PO DINNER [facility] Lab / Micro Data 01/14/24 05:18 01/14/24 05:18 Labs: Laboratory Results - last 24 hr 01/13/24 22:11: WBC 10.3, RBC 3.77 L, Hgb 11.4 L, Hct 36.0 L, MCV 95.5 H, MCH 30.2, MCHC 31.7 L, RDW Std Deviation 53.9 H, RDW Coeff of David 15.5 H, Plt Count 326, MPV 9.8, Immature Gran % (Auto) 2.400 H, Neut % (Auto) 67.0, Lymph % (Auto) 10.9 L, [place] % (Auto) 9.8, Eos % (Auto) 8.2 H, Baso % (Auto) 1.7 H, Absolute Neuts (auto) 6.9, Absolute Lymphs (auto) 1.12, Nucleated RBC % 0, Sodium 137, Potassium 4.4, Chloride 103, Carbon Dioxide 29.0, Anion Gap 6, BUN 16, Creatinine 0.90, Estim Creat Clear Calc 58.06, Est GFR (MDRD) Af Amer 103, Est GFR (MDRD) Non-Af 85, BUN/Creatinine Ratio 17.8, Glucose 95, Calcium 9.3, Total Bilirubin 0.60, AST 21, ALT 25, Alkaline Phosphatase 104, Total Protein 6.2 L, A lbumin 2.8 L, Globulin 3.4, Albumin/Globulin Ratio 0.8 L 01/14/24 05:18: WBC 10.1, RBC 3.73 L, Hgb 11.0 L, Hct 35.7 L, MCV 95.7 H, MCH 29.5, MCHC 30.8 L, RDW Std Deviation 53.4 H, RDW Coeff of David 15.3 H, Plt Count 317, MPV 9.7, Immature Gran % (Auto) 1.100 H, Neut % (Auto) 67.4, Lymph % (Auto) 10.7 L, [place] % (Auto) 10.3 H, Eos % (Auto) 8.9 H, Baso % (Auto) 1.6 H, Absolute Neuts (auto) 6.8, Absolute Lymphs (auto) 1.08, Nucleated RBC % 0, PT 15.2 H, INR 1.2, Sodium 136, Potassium 4.1, Chloride 104, Carbon Dioxide 26.0, Anion Gap 6, BUN 15, Creatinine 0.83, Estim Creat Clear Calc 62.95, Est GFR (MDRD) Af Amer 113, Est GFR (MDRD) Non-Af 94, BUN/Creatinine Ratio 18.1, Glucose 91, Calcium 8.9, Magnesium 2.3, TSH 3.890 H Imaging Radiology Impression Chest X-Ray 01/14/24 05:55 IMPRESSION: 1. No change in the left-sided PICC. 2. No change in the small caliber left-sided chest tube. 3. Near complete resolution of the left-sided pneumothorax. 4. Decreasing atelectasis and patchy opacity left lung base. Electronically Signed: Brooks Peck MD at 7:04 EDT , Assessment and Plan . Assessment and plan: Chart and data reviewed Iatrogenic left PTX following perc needle BX PTX resolved w/ pleural catheter placement Surgery managing the catheter - should be removed soon Prior CT reviewed - I think the lesion in the left lung is a pseudo-tumor - small fluid collection in the fissure - I would not pursue further evaluation of it
[2024-01-14] MEDS: Tamsulosin HCl 0.4 MG Capsule 0.8 MG PO (23:28)
[2024-01-15] VITALS (11 sets, daily range): BP systolic 98–114; BP diastolic 59–66; PULSE 73–88; RESP 16–20; TEMP 36.1–36.4; O2SAT 92–98; BMI 25.0
--- NOTE | 2024-01-15 05:55 | RAD_ITS ---
INDICATION: pneumothorax EXAMINATION/TECHNIQUE: X-RAY - XR Chest 1 View COMPARISON: 01/14/2024. FINDINGS: LINES/DEVICES: Stable small caliber left chest tube. Stable left upper extremity PICC line. LUNGS: Left basilar atelectasis versus infiltrate. Small left pleural effusion. No evidence of a pneumothorax. MEDIASTINUM AND CARDIOVASCULAR STRUCTURES: Cardiac silhouette is normal in size and contour. Mediastinum is unremarkable. BONES AND SOFT TISSUES: No acute abnormality. RAD/Chest 1 View (Portable) IMPRESSION: 1. Left basilar atelectasis versus infiltrate and small left pleural effusion. 2. No evidence of a pneumothorax. Electronically Signed: Johnie Walters DO at 5:10 EDT ,
[2024-01-15] MEDS: Midodrine HCl 5 MG Tablet PO (06:18)
[2024-01-15 06:33] LABS: Absolute Lymphocyte Count 1.12 X10^3/uL (0.83-4.51); Absolute Neutrophil Count 7.2 X10^3/uL (2.0-7.7); Basophil# 0.13 X10^3/uL; Basophil% 1.3 % (0-1); Eosinophil# 0.77 X10^3/uL; Eosinophils% 7.5 % (0-5); Hematocrit 34.6 % (40-54); Hemoglobin 10.7 g/dL (13.0-16.5); Lymphocyte # 1.12 X10^3/ul (0.83-4.51); Lymphocyte % 10.8 % (19-41); Mean Corp Hgb Conc 30.9 g/dL (32-36); Mean Corpuscular Hgb 29.5 pg (27.0-32.0); Mean Corpuscular Volume 95.3 fL (80-94); Mean Platelet Vol. 9.4 fl (6.2-12.0); Monocyte# 1.04 X10^3/uL; Monocyte% 10.1 % (0-10); NRBC Flagged by Analyzer 0 % (0-5); Neutrophil # 7.17 X10^3/uL (2.7-7.7); Neutrophil % 69.3 % (47-70); Platelet Count 283 K/mm3 (150-450); RBC Distribution Width CV 15.3 % (11.6-14.6); RBC Distribution Width SD 53.1 fl (35.1-43.9); Red Blood Count 3.63 M/mm3 (4.6-6.2); White Blood Count 10.3 K/mm3 (4.4-11.0)
[2024-01-15] MEDS: levalbuterol HCL 0.63 MG/3 ML VIAL.NEB INHALATION (06:40)
[2024-01-15] MEDS: Budesonide Respules 0.5 MG/2 ML AMPUL.NEB. INHALATION (06:40)
[2024-01-15 06:44] LABS: Anion Gap 5 (5-15); BUN 12 mg/dL (7-18); BUN/Creat Ratio 15.6 RATIO (10-20); Calcium,Total 8.8 mg/dL (8.5-10.1); Chloride 106 mmol/L (98-107); Creatinine, Serum 0.77 mg/dL (0.70-1.30); EST Glomerular Filtration Rate 102 mL/min (>60); Est Glom Filt Rate - Afr Amer 123 mL/min (>60); Estimated Creatinine Clearance 65.31 ml/min; Glucose 129 mg/dL (74-106); Sodium Level 137 mmol/L (136-145)
[2024-01-15] MEDS: Acetaminophen 325 MG Tablet 650 MG PO (09:40)
[2024-01-15] MEDS: oxyCODONE 5 MG Tablet PO (09:41)
[2024-01-15] MEDS: DULoxetine Hcl 60 MG Capsule 120 MG PO (09:42)
[2024-01-15] MEDS: Lactobacillis Acidophilus 1 CAP PO ×3 (09:42→18:12)
[2024-01-15] MEDS: Empagliflozin 25 MG Tablet 12.5 MG PO (09:43)
[2024-01-15] MEDS: APIXABAN 5 MG TABLET PO (09:43)
[2024-01-15] MEDS: guaiFENesin/D-Methorphan TAB.SR.12H 2 TABLET PO (09:44)
[2024-01-15] MEDS: Finasteride 5 MG Tablet PO (09:44)
[2024-01-15] MEDS: Dofetilide 250 MCG Capsule PO (09:45)
[2024-01-15] MEDS: Cholecalciferol (VIT D3) 25 MCG TABLET (1,000 UNITS) PO (09:45)
[2024-01-15] MEDS: Pantoprazole Sodium 40 MG Tablet PO (09:45)
[2024-01-15] MEDS: Senna/Docusate Sodium 1 Tablet 2 TABLET PO (09:45)
--- NOTE | 2024-01-15 10:37 | PCM.PN.SRG ---
Subjective Subjective Chest x-ray from this morning shows no pneumothorax this patient was on waterseal- With the white cap Place Objective Data Objective Data Vital Signs: Vital Signs Temp Pulse Resp BP Pulse Ox O2 Del Method O2 Flow Rate 97.2 F L 85 16 99/61 93 Nasal Cannula 2 01/15/24 09:21 01/15/24 09:21 01/15/24 09:21 01/15/24 09:21 01/15/24 10:16 01/15/24 09:21 01/15/24 10:16 Oxygen Flow Rate (L/min) 2 Oxygen Delivery Method Nasal Cannula Weight: 164 lb 3.91 oz Body Mass Index (BMI) 25.0 Intake & Output: Intake and Output for Last 24 Hours 01/13/24 01/14/24 01/15/24 23:59 23:59 23:59 Intake Total 1230 / 1230 120 / 120 Output Total 200 / 200 100 / 100 500 / 500 Balance -200 / -200 1130 / 1130 -380 / -380 Lab / Micro Data 01/15/24 06:00 01/15/24 06:00 Labs: Laboratory Results - last 24 hr 01/15/24 06:00: WBC 10.3, RBC 3.63 L, Hgb 10.7 L, Hct 34.6 L, MCV 95.3 H, MCH 29.5, MCHC 30.9 L, RDW Std Deviation 53.1 H, RDW Coeff of David 15.3 H, Plt Count 283, MPV 9.4, Immature Gran % (Auto) 1.000 H, Neut % (Auto) 69.3, Lymph % (Auto) 10.8 L, [place] % (Auto) 10.1 H, Eos % (Auto) 7.5 H, Baso % (Auto) 1.3 H, Absolute Neuts (auto) 7.2, Absolute Lymphs (auto) 1.12, Nucleated RBC % 0, Sodium 137, Potassium 4.0, Chloride 106, Carbon Dioxide 26.0, Anion Gap 5, BUN 12, Creatinine 0.77, Estim Creat Clear Calc 65.31, Est GFR (MDRD) Af Amer 123, Est GFR (MDRD) Non-Af 102, BUN/Creatinine Ratio 15.6, Glucose 129 H, Calcium 8.8 Radiography Diagnostic Testing: Radiology Impression Chest X-Ray 01/15/24 05:55 IMPRESSION: 1. Left basilar atelectasis versus infiltrate and small left pleural effusion. 2. No evidence of a pneumothorax. Electronically Signed: Johnie WaltersDO at 5:10 EDT , Physical Exam Const oriented x3 and no apparent distress Resp Resp Narrative: Left chest thora vent in place. GI GI Narrative: Lias tube in place with bilious drainage. Assessment & Plan Assessment/Plan (1) Iatrogenic pneumothorax: PLAN: Patient tolerated removal of Thora vent well and bedside. Will take chest x-ray in 2 hours if no pneumothorax would be able to be DC'd back to TCU. Lisa tube draining bile. Darby Rich M.D. Pager: [phone] [facility] [address] [place] [address], [facility], [address] [place] [address] Office: [phone] Charges/Coding Visit Charges Inpatient E&M: 63581 Subs Hosp L3
--- NOTE | 2024-01-15 11:27 | PN_ITS ---
Subjective Subjective Patient seen and examined. His daughter was by his bedside. He complained of a cough and daughter says his cough is a bit worse than his usual coughing. He denies any shortness of breath, palpitations, dizziness, nausea or vomiting or any other symptoms. Review of symptoms otherwise negative. Objective Data Objective Data Vital Signs: Vital Signs Temp Pulse Resp BP Pulse Ox O2 Del Method O2 Flow Rate 97.5 F L 82 16 104/63 98 Nasal Cannula 2 01/15/24 11:01/15/24 11:01/15/24 11:00 01/15/24 11:01/15/24 11:01/15/24 11:00 01/15/24 11:00 Oxygen Flow Rate (L/min) 2 Oxygen Delivery Method Nasal Cannula Weight: 164 lb 3.91 oz Body Mass Index (BMI) 25.0 Intake & Output: Intake and Output for Last 24 Hours 01/13/24 01/14/24 01/15/24 23:59 23:59 23:59 Intake Total 1230 / 1230 120 / 120 Output Total 200 / 200 100 / 100 500 / 500 Balance -200 / -200 1130 / 1130 -380 / -380 Lab / Micro Data 01/15/24 06:00 01/15/24 06:00 Labs: Laboratory Results - last 24 hr 01/15/24 06:00: WBC 10.3, RBC 3.63 L, Hgb 10.7 L, Hct 34.6 L, MCV 95.3 H, MCH 29.5, MCHC 30.9 L, RDW Std Deviation 53.1 H, RDW Coeff of David 15.3 H, Plt Count 283, MPV 9.4, Immature Gran % (Auto) 1.000 H, Neut % (Auto) 69.3, Lymph % (Auto) 10.8 L, [place] % (Auto) 10.1 H, Eos % (Auto) 7.5 H, Baso % (Auto) 1.3 H, Absolute Neuts (auto) 7.2, Absolute Lymphs (auto) 1.12, Nucleated RBC % 0, Sodium 137, Potassium 4.0, Chloride 106, Carbon Dioxide 26.0, Anion Gap 5, BUN 12, Creatinine 0.77, Estim Creat Clear Calc 65.31, Est GFR (MDRD) Af Amer 123, Est GFR (MDRD) Non-Af 102, BUN/Creatinine Ratio 15.6, Glucose 129 H, Calcium 8.8 Radiography Diagnostic Testing: Radiology Impression Chest X-Ray 01/15/24 05:55 IMPRESSION: 1. Left basilar atelectasis versus infiltrate and small left pleural effusion. 2. No evidence of a pneumothorax. Electronically Signed: Johnie Walters, DO at 5:10 EDT , Physical Exam Const alert, oriented x3 and no apparent distress General Appearance: cooperative HEENT normocephalic, head/scalp atraumatic and moist oral mucous membranes Eyes PERRL and EOMs intact bilaterally Neck no lymphadenopathy, supple and no JVD Resp Resp Narrative: mildly diminished breath sounds bilaterally, no wheezes or crackles. Still on 2L of oxygen by nasal canula. Left sided pigtail catheter in situ, not hooked to suction Cardio regular rate, regular rhythm, S1 normal heart sound, S2 normal heart sound and no murmurs GI normal to inspection, nondistended, normoactive bowel sounds, soft to palpation, non-tender and non-distended Extremity normal capillary refill, no clubbing, cyanosis or edema and no calf tenderness General Extremity: no tenderness to palpation of joints or extremities Skin General Skin Exam: no breakdown Neuro CN's II-XII intact bilaterally, no focal motor deficits, no sensory deficits noted and deep tendon reflexes 2+ bilaterally Motor Exam: strength 5/5 throughout and general weakness Psych thought process normal and cooperative Appearance: appropriate Assessment & Plan Assessment/Plan (1) Iatrogenic pneumothorax: PLAN: Plan #Iatrogenic left sided pneumothorax * This occurred after he had a lung biopsy for lung abscess. * Feels better. General surgery on board. Pigtail chest tube catheter taken off of suction today. Chest x-ray showed resolution of the pneumothorax * Chest x-ray today showed no evidence of pneumothorax and showed left basilar atelectasis versus infiltrate and a small left pleural effusion * Incentive spirometry. * Breathing treatments bronchodilators. Titrate up and 17 saturation above 90%. * General surgery to evaluate to see about removing the pigtail catheter today. #Heart failure preserved ejection fraction: Not in exacerbation. On Lasix. 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 He was on IV Zosyn until 01/01/2024 after which she had a lung biopsy as above. * ID consulted. Recommends holding off on any additional antibiotics p.o. biopsies pending #History of recent cholecystitis: * Has a cholecystostomy tube in place draining bilious fluid. * Daughter states he was on daptomycin and zosyn just until a few weeks ago and is due to follow-up at [facility] On January 24 for evaluation for cholecystectomy * Finished a course of Zosyn on 01/01/2024 and daptomycin on 01/12/2024. * Daughter is concerned the drainage is darker and increasing. Cholecystostomy drain is to be emptied every day and flushed with 10 cc of fluid * will hold off on any further antibiotics for now * #A-fib s/p ablation: On Tikosyn and metoprolol as well as eliquis #Hypertension: on metoprolol and Hyperlipidemia: On statin Diet and depression: On Cymbalta DVT prophylaxis: On Eliquis Disposition: for likely dc today or tomorrow after general surgery evaluates him Charges/Coding Visit Charges Inpatient E&M: 49171 Subs Hosp L2
[2024-01-15] MEDS: Metoprolol(XL)Succ 25 MG Tablet PO (11:42)
[2024-01-15] MEDS: Bisacodyl 5 MG Tablet PO (11:43)
--- NOTE | 2024-01-15 12:39 | CASEMGMT ---
Patient is from [facility] TCU. SW called patient's daughter Lala and confirmed patient's plan is to return to TCU when ready. Plan: d/c to [facility] TCU pending insurance approval. Fatemeh MOMIN
--- NOTE | 2024-01-15 12:40 | RAD_ITS ---
STUDY: X-RAY CHEST REASON FOR EXAM: Male, 83 years old. Chest tube removal -- PORTABLE TECHNIQUE: Single AP portable view of the chest. COMPARISON: Comparison is made with prior study January 15, 2024. FINDINGS: The small caliber left-sided chest tube has been removed. Tiny residual left apical pneumothorax. A left-sided PICC line catheter is seen with the tip at the junction of the superior vena cava and right atrium. Minimal residual density seen in the left midlung. Stable scarring at the lung bases. There is no demonstrated pleural abnormality. Normal size heart. Normal mediastinum and gregorio. Normal visualized pulmonary arteries. There is atherosclerotic calcification of the aortic arch with tortuosity. There are diffuse degenerative changes of the visualized thoracic spine. Normal visualized ribs, clavicles, and shoulders. There is no demonstrated abnormality of the visualized soft tissue structures of the upper abdomen. RAD/Chest 1 View (Portable) IMPRESSION: The left-sided chest tube has been removed. Minimal left apical pneumothorax. Electronically Signed: Chris Ventura MD at 13:24 EDT ,
[2024-01-15] MEDS: Ipratropium/Albuterol Sulfate 3 ML AMPUL.NEB INHALATION (13:59)
--- NOTE | 2024-01-15 14:20 | CASEMGMT ---
Patient was approved to return to [facility]. SW notified physician. Plan: d/c back to [facility] under skilled level of care. Fatemeh MOMIN
--- NOTE | 2024-01-15 15:05 | RAD_ITS ---
STUDY: X-RAY CHEST REASON FOR EXAM: Male, 83 years old. Chest tube -- in radiology TECHNIQUE: PA and lateral views of the chest. COMPARISON: Comparison is made with prior study done earlier in the day. FINDINGS: No definite left apical pneumothorax is seen at this time. RAD/Chest PA and Lateral IMPRESSION: No definite pneumothorax is seen at this time. Electronically Signed: Chris Ventura MD at 15:15 EDT ,
--- NOTE | 2024-01-15 16:44 | PCM.TXEXTCAR ---
Diet Diet Order/Speech Therapy: 01/14/24 02:24 Diet: Cardiac - Heart Healthy Food consistency:: Regular Liquid Consistency:: Regular/Thin Routine Orders/Code Status Enema Type: Fleetz Enema Frequency: Daily PRN Suppository Type: Dulcolax 10mg Suppository Frequency: Daily PRN O2 Frequency: PRN Keep PO Greater than or Equal to (%): 90 Wound(s) left back: Wound Type: Puncture Therapies Weight Bearing: Weight bearing as tolerated Physical Therapy: Eval and Treat Occupational Therapy: Eval and Treat Problem/Diagnosis (1) Iatrogenic pneumothorax: Status: Acute Code(s): J95.811 - Postprocedural pneumothorax Plan #Iatrogenic left sided pneumothorax This occurred after he had a lung biopsy for lung abscess. Feels better. General surgery on board. Pigtail chest tube catheter taken off of suction today. Chest x-ray showed resolution of the pneumothorax Chest x-ray today showed no evidence of pneumothorax and showed left basilar atelectasis versus infiltrate and a small left pleural effusion Incentive spirometry. Breathing treatments bronchodilators. Titrate up and 17 saturation above 90%. General surgery to evaluate to see about removing the pigtail catheter today. #Heart failure preserved ejection fraction: Not in exacerbation. On Lasix. 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 He was on IV Zosyn until 01/01/2024 after which she had a lung biopsy as above. ID consulted. Recommends holding off on any additional antibiotics p.o. biopsies pending #History of recent cholecystitis: Has a cholecystostomy tube in place draining bilious fluid. Daughter states he was on daptomycin and zosyn just until a few weeks ago and is due to follow-up at [facility] On January 24 for evaluation for cholecystectomy Finished a course of Zosyn on 01/01/2024 and daptomycin on 01/12/2024. Daughter is concerned the drainage is darker and increasing. Cholecystostomy drain is to be emptied every day and flushed with 10 cc of fluid will hold off on any further antibiotics for now #A-fib s/p ablation: On Tikosyn and metoprolol as well as eliquis #Hypertension: on metoprolol and Hyperlipidemia: On statin Diet and depression: On Cymbalta DVT prophylaxis: On Eliquis Disposition: for likely dc today or tomorrow after general surgery evaluates him Allergies/Procedures Done in Hospital Allergies tramadol Allergy (Unknown, Verified 01/13/24 09:44) PT UNSURE OF REACTION pt and daughter unsure of reaction clindamycin Adverse Reaction (Intermediate, Verified 01/13/24 09:44) Rash terbinafine Adverse Reaction (Intermediate, Verified 01/13/24 09:44) Rash Procedures: - (chest tube) Type of Care/Length of Stay Estimated LOS: Convalescent Care Less Than 30 days Type of Care Needed: Skilled Rehab Potential: Fair Prognosis: Fair Additional Orders/Day of Discharge Day of Discharge: 01/15/24 Discharge Plan Admission Admit Date/Time: 01/14/24 00:40 Primary Reason for Your Visit: iatrogenic left pneumothorax Attending Provider: Ember Villar Primary Care Provider: Arnulfo Rascon Consulting Providers: Chas Rosenberg; Óscar Demarco; Parker Hope; Suraj Thomas; Abhilash Peck; Anthony Kamara; Nicolas Mcdaniels; Kayla Medina; Robby Eagle; Benjamin Salguero; Lexi Perez; Pau Henley; Naseem Mendez; Cheng Sotelo; Tristan Salas; Zoie Lewis; Ray Street; Merritt Hurley; Abimael Zapata; Sylvester Galloway; Humphrey Espino Instructions Patient Instructions: Pneumothorax (Collapsed Lung) Discharge Orders/Prescriptions Prescriptions: Continued rosuvastatin [Crestor] 5 mg tablet 5 mg PO QDAY metoprolol succinate 25 mg tablet extended release 24 hr 25 mg PO DAILY nitroglycerin 0.4 mg tablet, sublingual 0.4 mg sublingual Q5M PRN (Reason: CP) Rx Instructions: do not exceed 3 doses per episode dofetilide 250 mcg capsule 250 mcg PO Q12H Patient Comments: TAKE 1 CAPSULE BY MOUTH EVERY 12 HOURS midodrine 5 mg tablet 5 mg PO TID Patient Comments: Takes in the morning and evening and the afternoon dose is PRN if he needs it. finasteride 5 mg tablet 5 mg PO DAILY Patient Comments: take 1 tablet by mouth once daily duloxetine 60 mg capsule,delayed release(DR/EC) See Rx Instructions PO DAILY Rx Instructions: 60 mg (2 caps) orally daily; Jardiance 25 mg tablet 12.5 mg PO DAILY levalbuterol HCl 0.63 mg/3 mL solution for nebulization 0.63 mg INHALATION TID Patient Comments: USE 1 VIAL 3 TIMES A DAY ICaps AREDS2 250 mg-200 unit -12.5 mg-1 mg capsule 1 cap PO DAILY cyanocobalamin (vitamin B-12) 1,000 mcg/mL kit 100 mcg IM QMONTH lorazepam 0.5 mg Tablet 0.5 mg PO QHS Qty: 5 0RF budesonide 0.5 mg/2 mL Suspension For Nebulization 0.5 mg inhalation BID.RT Qty: 0 0RF acetaminophen 500 mg Tablet 1,000 mg PO Q6H PRN PRN (Reason: Pain Score 1-3) Qty: 0 0RF Eliquis 5 mg Tablet 5 mg PO BID Qty: 0 0RF pantoprazole 40 mg tablet,delayed release (DR/EC) 40 mg PO DAILY Patient Comments: take 1 tablet by mouth twice a day take before meals Rx Instructions: Before meals ezetimibe 10 mg tablet 10 mg PO QHS guaifenesin [Mucinex] 1,200 mg tablet extended release 12hr 1,200 mg PO BID Stiolto Respimat 2.5-2.5 mcg/actuation mist 2 inh inhalation DAILY Lactobacillus acidoph-L.bulgar [Floranex] 100 million cell granules in packet 1 packet PO TIDCM oxycodone 5 mg capsule 5 mg PO Q6H PRN (Reason: pain) tamsulosin 0.4 mg Capsule 0.8 mg PO DINNER methocarbamol 750 mg tablet 750 mg PO BID Rx Instructions: for neck pain sucralfate [Carafate] 100 mg/mL suspension 1 g PO BID bumetanide 0.5 mg Tablet 1 mg PO MOWEFR PRN (Reason: EDEMA) cholecalciferol (vitamin D3) 25 mcg (1,000 unit) tablet 25 mcg PO DAILY Discontinued piperacillin-tazobactam 3.375 gram recon soln 3.375 g IV Q6H Rx Instructions: for 9 days Referrals / Follow Up: Arnulfo Rascon MD [Primary Care Provider] - Within 1 Week Disposition Disposition (needs filled in before D/C Order can be placed): Acute Care Hospital
--- NOTE | 2024-01-15 16:46 | DS.PCM_ITS ---
Providers Date of Admission: 01/14/24 Date of Discharge: 01/15/24 Primary Care Physician: Dr. Arnulfo Rascon MD Consultations 01/14/24 00:10 Consult: Cloth Piecer / Pulmonary Medicine Routine Consulting Provider: Intensivists/Pulmonary Med Reason for Consult: pneumothorax EMERGENT Consult: Yes MD Notified: Yes Date Notified: 01/14/24 Time Notified: 00:10 Method of Notification: ED Physician Initiated 01/14/24 04:42 Consult: General Surgery Routine Consulting Provider: Abimael Zapata Reason for Consult: LEFT PNEUMOTHORAX EMERGENT Consult: No Notified: Yes Date Notified: 01/13/24 Time Notified: 23:44 Method of Notification: ED Physician Initiated Consult: Cloth Piecer / Pulmonary Medicine Routine Consulting Provider: Intensivists/Pulmonary Med Reason for Consult: LEFT PNEUMOTHORAX EMERGENT Consult: No Notified: Yes Date Notified: 01/13/24 Time Notified: 04:44 Method of Notification: ED Physician Initiated 01/14/24 05:20 Consult: Infectious Disease Routine Consulting Provider: Sylvester Galloway Reason for Consult: H/o lung abscess, completed Zosyn in the past EMERGENT Consult: No Notified: Yes Date Notified: 01/14/24 Time Notified: 05:20 Method of Notification: Text Reason For Visit: RIGHT PNEUMOTHORAX IATROGENIC Diagnosis Discharge Diagnosis (1) Iatrogenic pneumothorax: Status: Acute Code(s): J95.811 - Postprocedural pneumothorax Plan #Iatrogenic left sided pneumothorax * This occurred after he had a lung biopsy for lung abscess. * Feels better. General surgery on board. Pigtail chest tube catheter taken off of suction today. Chest x-ray showed resolution of the pneumothorax * Chest x-ray today showed no evidence of pneumothorax and showed left basilar atelectasis versus infiltrate and a small left pleural effusion * Incentive spirometry. * Breathing treatments bronchodilators. Titrate up and 17 saturation above 90%. * General surgery to evaluate to see about removing the pigtail catheter today. #Heart failure preserved ejection fraction: Not in exacerbation. On Lasix. 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 He was on IV Zosyn until 01/01/2024 after which she had a lung biopsy as above. * ID consulted. Recommends holding off on any additional antibiotics p.o. biopsies pending #History of recent cholecystitis: * Has a cholecystostomy tube in place draining bilious fluid. * Daughter states he was on daptomycin and zosyn just until a few weeks ago and is due to follow-up at [facility] On January 24 for evaluation for cholecystectomy * Finished a course of Zosyn on 01/01/2024 and daptomycin on 01/12/2024. * Daughter is concerned the drainage is darker and increasing. Cholecystostomy drain is to be emptied every day and flushed with 10 cc of fluid * will hold off on any further antibiotics for now * #A-fib s/p ablation: On Tikosyn and metoprolol as well as eliquis #Hypertension: on metoprolol and Hyperlipidemia: On statin Diet and depression: On Cymbalta DVT prophylaxis: On Eliquis Disposition: for likely dc today or tomorrow after general surgery evaluates him Medications at Discharge Home Medications rosuvastatin 5 mg tablet (Crestor) 5 mg PO QDAY cholesterol 07/04/17 cholecalciferol (vitamin D3) 25 mcg (1,000 unit) tablet 25 mcg PO DAILY supplement 05/22/21 metoprolol succinate 25 mg tablet,extended release 24 hr 25 mg PO DAILY AFIB 06/27/21 nitroglycerin 0.4 mg sublingual tablet 0.4 mg sublingual Q5M PRN CP 06/27/21 cyanocobalamin (vitamin B-12) 1,000 mcg/mL injection kit 100 mcg IM QMONTH supplement 03/29/23 dofetilide 250 mcg capsule 250 mcg PO Q12H afib 03/29/23 duloxetine 60 mg capsule,delayed release See Rx Instructions PO DAILY mood 03/29/23 empagliflozin 25 mg tablet (Jardiance) 12.5 mg PO DAILY heart 03/29/23 finasteride 5 mg tablet 5 mg PO DAILY bph 03/29/23 levalbuterol HCl 0.63 mg/3 mL solution for nebulization 0.63 mg inhalation TID copd 03/29/23 midodrine 5 mg tablet 5 mg PO TID blood pressure 03/29/23 vit C 250 mg-vit E 200 unit-zinc ox 12.5 [id number] capsule (ICaps AREDS2) 1 cap PO DAILY supplement 03/29/23 budesonide 0.5 mg/2 mL suspension for nebulization 0.5 mg (2 mL) inhalation BID.RT Asthma #0 mL 04/01/23 lorazepam 0.5 mg tablet 0.5 mg PO QHS Anxiety #5 tabs 04/01/23 acetaminophen 500 mg tablet 1,000 mg (2 x 500 mg) PO Q6H PRN PRN Pain Score 1-3 #0 tabs 04/10/23 apixaban 5 mg tablet (Eliquis) 5 mg PO BID BLOOD THINNER #0 tabs 04/10/23 ezetimibe 10 mg tablet 10 mg PO QHS cholesterol 10/24/23 guaifenesin 1,200 mg tablet, extended release 12 hr (Mucinex) 1,200 mg PO BID mucus relief 10/24/23 pantoprazole 40 mg tablet,delayed release 40 mg PO DAILY GERD 10/24/23 tiotropium 2.5 mcg-olodaterol 2.5 mcg/actuation mist for inhalation (Stiolto Respimat) 2 inh inhalation DAILY COPD 10/24/23 methocarbamol 750 mg tablet 750 mg PO BID Muscle Relaxer 11/20/23 sucralfate 100 mg/mL oral suspension (Carafate) 1 g PO BID antacid 11/20/23 Lactobacillus acidophilus, bulgaricus 100 million cell granules packet (Floranex) 1 packet PO TIDCM supplement 12/23/23 oxycodone 5 mg capsule 5 mg PO Q6H PRN pain 12/23/23 tamsulosin 0.4 mg capsule 0.8 mg PO DINNER bph 12/23/23 bumetanide 0.5 mg tablet 1 mg PO MOWEFR PRN EDEMA 01/15/24 Hospital Course Operations None Procedures - (Chest tube pigtail insertion) Summary of Care Provided Minutes Spent on Discharge: 55 Hospital Course: Patient is an 83-year-old male with past medical history as outlined was admitted after he had a lung biopsy due to history of lung abscess. After the biopsy he had left-sided chest pain and shortness of breath and imaging done showed a pneumothorax on the left side. Usually wears 2 L of oxygen but this was increased to 4 L. Chest x-ray showed pneumothorax of the left upper lobe. The pigtail chest tube was inserted by ED and general surgery was consulted. His shortness of breath improved and subsequent chest x-ray showed no evidence of the pneumothorax. The pigtail catheter was therefore removed. Of note he had had a history of cholecystitis in December and had been sent to [facility] for acute acalculous cholecystitis and had a cholecystostomy tube inserted. This was still present when he came with his draining bilious fluid. He had completed a course of antibiotics. He was follow-up with general surgery for this. Patient darien stable after the pigtail catheter was removed and subsequent x-ray showed no evidence of pneumothorax and showed that the wound present had resolved. He was discharged back to the TCU on 01/15/2024. He is follow-up with his primary care doctor and general surgery within 1 to 2 weeks. Patient seen and examined prior to discharge. He had no complaints and had an uneventful night. Review of systems otherwise negative. Labs and vitals reviewed. Home medication reviewed and reconciled. Physical Exam Const alert, oriented x3 and no apparent distress General Appearance: cooperative and comfortable Orientation / Consciousness: awake Exam Limitations: no limitations HEENT normocephalic, head/scalp atraumatic, hearing grossly normal bilaterally and moist oral mucous membranes Eyes PERRL and EOMs intact bilaterally Neck no lymphadenopathy, supple and no JVD Resp Resp Narrative: mildly diminished breath sounds bilaterally, no wheezes or crackles. Still on 2L of oxygen by nasal canula. Left sided pigtail catheter in situ, not hooked to suction; this was subsequently removed Cardio regular rate, regular rhythm, S1 normal heart sound, S2 normal heart sound and no murmurs GI normal to inspection, nondistended, normoactive bowel sounds, soft to palpation, non-tender and non-distended Extremity normal capillary refill, no clubbing, cyanosis or edema and no calf tenderness General Extremity: no tenderness to palpation of joints or extremities Skin General Skin Exam: no breakdown Neuro CN's II-XII intact bilaterally, moves all extremities, no focal motor deficits, no sensory deficits noted and deep tendon reflexes 2+ bilaterally Sensorium / Orientation: awake, alert, oriented to person, oriented to place and oriented to time Motor Exam: strength 5/5 throughout and general weakness Psych thought process normal and cooperative Appearance: appropriate Weight / BMI Weight Weight: 164 lb 3.91 oz Body Mass Index (BMI) 25.0 ABG / Lab / Microbiology Data 01/15/24 06:00 01/15/24 06:00 Laboratory: Laboratory Results - last 24 hr 01/15/24 06:00: WBC 10.3, RBC 3.63 L, Hgb 10.7 L, Hct 34.6 L, MCV 95.3 H, MCH 29.5, MCHC 30.9 L, RDW Std Deviation 53.1 H, RDW Coeff of David 15.3 H, Plt Count 283, MPV 9.4, Immature Gran % (Auto) 1.000 H, Neut % (Auto) 69.3, Lymph % (Auto) 10.8 L, Atlantic % (Auto) 10.1 H, Eos % (Auto) 7.5 H, Baso % (Auto) 1.3 H, Absolute Neuts (auto) 7.2, Absolute Lymphs (auto) 1.12, Nucleated RBC % 0, Sodium 137, Potassium 4.0, Chloride 106, Carbon Dioxide 26.0, Anion Gap 5, BUN 12, Creatinine 0.77, Estim Creat Clear Calc 65.31, Est GFR (MDRD) Af Amer 123, Est GFR (MDRD) Non-Af 102, BUN/Creatinine Ratio 15.6, Glucose 129 H, Calcium 8.8 Radiography Diagnostic Testing: Radiology Impression Chest X-Ray 01/15/24 05:55 IMPRESSION: 1. Left basilar atelectasis versus infiltrate and small left pleural effusion. 2. No evidence of a pneumothorax. Electronically Signed: Johnie Walters DO at 5:10 EDT , Chest X-Ray 01/15/24 12:40 IMPRESSION: The left-sided chest tube has been removed. Minimal left apical pneumothorax. Electronically Signed: Chris Ventura MD at 13:24 EDT , Chest X-Ray 01/15/24 15:05 IMPRESSION: No definite pneumothorax is seen at this time. Electronically Signed: Chris Ventura MD at 15:15 EDT , D/C Instructions Discharge Diet: Low fat / Low cholesterol Discharge Activity: Return to Normal Activity Weight Bearing Status: Weight bearing as tolerated Call your doctor if you observe: Fever of 101 or Higher, Shortness of breath, Dizziness, Swelling in the ankles and Chest pain Meaningful Use Info Meaningful Use Meaningful Use Diagnoses (Choose all that apply): None applicable Ischemic Stroke Statin Dosing Therapy Reference: STATIN DOSE THERAPY REFERENCE: * Patients > 75 years receive moderate or high dose statin therapy. * Patients 75 years or YOUNGER should receive HIGH intensity statin dose unless contraindicated. You will be required to document reason for non-treatment if statin daily dose does not meet guidelines. HIGH DOSE STATIN THERAPY DAILY Atorvastatin > than or = to 40 mg Rosuvastatin > than or = to 20 mg Amlodipine + Atorvastatin > than or = to 2.5/40 mg Ezetimibe + Simvastatin 10/80 mg Simvastatin 80mg Discharge Plan Admission Admit Date/Time: 01/14/24 00:40 Primary Reason for Your Visit: iatrogenic left pneumothorax Attending Provider: Ember Villar Primary Care Provider: Arnulfo Rascon Consulting Providers: Chas Rosenberg; Óscar Demarco; Parker Hope; Suraj Thomas; Abhilash Peck; Anthony Kamara; Nicolas Mcdaniels; Kayla Medina; Robby Eagle; Benjamin Salguero; Lexi Perez; Pau Henley; Naseem Mendez; Cheng Sotelo; Tristan Salas; Zoie Lewis; Ray Street; Merritt Hurley; Abimael Zapata; Sylvester Galloway; Humphrey Espino Instructions Patient Instructions: Pneumothorax (Collapsed Lung) Discharge Orders/Prescriptions Prescriptions: Continued rosuvastatin [Crestor] 5 mg tablet 5 mg PO QDAY metoprolol succinate 25 mg tablet extended release 24 hr 25 mg PO DAILY nitroglycerin 0.4 mg tablet, sublingual 0.4 mg sublingual Q5M PRN (Reason: CP) Rx Instructions: do not exceed 3 doses per episode dofetilide 250 mcg capsule 250 mcg PO Q12H Patient Comments: TAKE 1 CAPSULE BY MOUTH EVERY 12 HOURS midodrine 5 mg tablet 5 mg PO TID Patient Comments: Takes in the morning and evening and the afternoon dose is PRN if he needs it. finasteride 5 mg tablet 5 mg PO DAILY Patient Comments: take 1 tablet by mouth once daily duloxetine 60 mg capsule,delayed release(DR/EC) See Rx Instructions PO DAILY Rx Instructions: 60 mg (2 caps) orally daily; Jardiance 25 mg tablet 12.5 mg PO DAILY levalbuterol HCl 0.63 mg/3 mL solution for nebulization 0.63 mg INHALATION TID Patient Comments: USE 1 VIAL 3 TIMES A DAY ICaps AREDS2 250 mg-200 unit -12.5 mg-1 mg capsule 1 cap PO DAILY cyanocobalamin (vitamin B-12) 1,000 mcg/mL kit 100 mcg IM QMONTH lorazepam 0.5 mg Tablet 0.5 mg PO QHS Qty: 5 0RF budesonide 0.5 mg/2 mL Suspension For Nebulization 0.5 mg inhalation BID.RT Qty: 0 0RF acetaminophen 500 mg Tablet 1,000 mg PO Q6H PRN PRN (Reason: Pain Score 1-3) Qty: 0 0RF Eliquis 5 mg Tablet 5 mg PO BID Qty: 0 0RF pantoprazole 40 mg tablet,delayed release (DR/EC) 40 mg PO DAILY Patient Comments: take 1 tablet by mouth twice a day take before meals Rx Instructions: Before meals ezetimibe 10 mg tablet 10 mg PO QHS guaifenesin [Mucinex] 1,200 mg tablet extended release 12hr 1,200 mg PO BID Stiolto Respimat 2.5-2.5 mcg/actuation mist 2 inh inhalation DAILY Lactobacillus acidoph-L.bulgar [Floranex] 100 million cell granules in packet 1 packet PO TIDCM oxycodone 5 mg capsule 5 mg PO Q6H PRN (Reason: pain) tamsulosin 0.4 mg Capsule 0.8 mg PO DINNER methocarbamol 750 mg tablet 750 mg PO BID Rx Instructions: for neck pain sucralfate [Carafate] 100 mg/mL suspension 1 g PO BID bumetanide 0.5 mg Tablet 1 mg PO MOWEFR PRN (Reason: EDEMA) cholecalciferol (vitamin D3) 25 mcg (1,000 unit) tablet 25 mcg PO DAILY Discontinued piperacillin-tazobactam 3.375 gram recon soln 3.375 g IV Q6H Rx Instructions: for 9 days Referrals / Follow Up: Arnulfo Rascon MD [Primary Care Provider] - Within 1 Week Disposition Disposition (needs filled in before D/C Order can be placed): Acute Care Hospital Charges/Coding Visit Charges Inpatient E&M: 80503 Disch Hosp >30min
--- NOTE | 2024-01-15 18:00 | NURSING ---
Report called to TCU nurse
[2024-01-15] MEDS: Tamsulosin HCl 0.4 MG Capsule 0.8 MG PO (18:12)
[2024-01-15] MEDS: Sucralfate 1 GM Tablet PO (18:12)
== END 2024-01-15 18:28 | disposition short-term general hospital (02) | DRG 199 ==
LOC: ED 01-14 00:54 → PCU 01-14 03:01
PROVIDERS: Admitting Provider Internal Medicine; Emergency Provider Emergency Medicine; PCP Family Medicine; Visit Provider Student in an Organized Health Care Education/Training Program
DX: J95.811 Postprocedural pneumothorax (principal); J85.2 Abscess of lung without pneumonia; R78.81 Bacteremia; I50.32 Chronic diastolic (congestive) heart failure; I48.20 Chronic atrial fibrillation, unspecified; K81.9 Cholecystitis, unspecified; B95.2 Enterococcus as the cause of diseases classified elsewhere; Z66 Do not resuscitate; Z51.5 Encounter for palliative care; I11.0 Hypertensive heart disease with heart failure; J84.10 Pulmonary fibrosis, unspecified; J47.9 Bronchiectasis, uncomplicated; F32.A Depression, unspecified; I25.10 Atherosclerotic heart disease of native coronary artery without angina pectoris; E78.5 Hyperlipidemia, unspecified; K21.9 Gastro-esophageal reflux disease without esophagitis; F41.9 Anxiety disorder, unspecified; J43.9 Emphysema, unspecified; Z87.891 Personal history of nicotine dependence; Z79.51 Long term (current) use of inhaled steroids; Z79.01 Long term (current) use of anticoagulants; Z82.5 Family history of asthma and other chronic lower respiratory diseases; N40.0 Benign prostatic hyperplasia without lower urinary tract symptoms
CPT/HCPCS: 36415; 71045; 71046; 77012; 80048; 80053; 83735; 84443; 85025; 85610; 88172; 88305; 88312; 88313; 93005; 94640; 94668; 97116; 97162; 97166; 99156; 99284; J7030; A4216; C2613; J1940

== ENCOUNTER → 2024-01-13 | Outpatient (CLI) | payer MEDICARE, SELFPAY ==
--- NOTE | 2024-01-12 | ASPIGT_PTH ---
PATIENT: ELIO DORAN LOC: [place] U#:[id number] AGE/SX: 83/M ROOM: RE01/13/[address]: Dr. Parrish Shah MD : 1940 BED: DIS: 01/13/2024 SPEC #: [id number] RECD: 01/13/24 12:21 STATUS: FARIHA RETete #: [id number] EMMA: 01/12/24 00:[address]: Parrish Shah Chi DEPT: SURGICAL PATHOLOGY RECD BY: Toñito Rascon ENTERED: 01/13/24 12:21 SP TYPE: ASP RAD OTHR DR: Dr. Arnulfo Rascon MD Tissues: Lung, NOS Procedures: FNA Specimen Adequacy Trichrome (control) Special Stain Group II Special Stain Group I Surgery Specimen Level IV Iron Stain (control) Imprint (control) HEADER OPERATION: CT guided lung biopsy PRE-OP DIAGNOSIS: Left lung abscess TISSUE SUBMITTED: 20 gauge x 5 cores MICROSCOPIC DIAGNOSIS Left lung, CT guided core biopsy: Lung parenchymal tissue with extensive fibrosis and old hemorrhage. Negative for malignancy. See comment. BRANDOGagan 01/14/2024 COMMENT The specimen is evaluated at the time of biopsy by Dr. Olmstead. Immediate Evaluation = Negative for malignant cells. Paucicellular specimen. Reported Dr. Ventura at 10:58am. Fragments of benign bronchial mucosal tissue with underlying cartilage also noted in the specimen. Trichrome and iron stains with matched control are also used in the evaluation of the specimen. Correlation with clinical, endoscopic findings and appropriate follow up are necessary. This case was reviewed in consultation with Drs. Schroeder who concur with the above diagnosis. IDC:PW MICROSCOPIC DESCRIPTION Slides are reviewed. GROSS DESCRIPTION Received in fixative is one container labeled with the patient's name and designated Left lung biopsy. The specimen consists of multiple irregular fragments of trejo-pink soft tissue that in aggregate measure 0.5 x 0.2 x <0.1 cm. The specimen is totally submitted in one cassette. Two touch imprints are prepared at the time of core biopsy. BRANDO. 01/13/2024 TC:5 CPT:96121, 27976, 70633w3
[2024-01-13] VITALS (22 sets, daily range): BP systolic 85–113; BP diastolic 41–66; PULSE 84–89; RESP 22–25; TEMP 36.2; O2SAT 91–98; BMI 24.3
--- NOTE | 2024-01-13 09:52 | CT_ITS ---
PROCEDURE: CT GUIDED CORE NEEDLE BIOPSY OF A left upper lobe nodule LUNG LESION INDICATION: Male, 83 years old. L LUNG ABSCESS PHYSICIAN: Dr. Audrey Pascual CONSENT: Written informed consent was obtained having explained the risks, benefits and alternatives in detail with the patient who accepted the risks and agreed to proceed. Laboratory review and clinical assessment was performed. CONSCIOUS SEDATION PROTOCOL: The Drugs used were: 1 mg Versed, IV., and 25 mcg Fentanyl, IV. The sedation time was: 19 minutes. Conscious sedation was started at 10:28 AM and terminated at 10:47 AM. The conscious sedation protocol was independently monitored. RADIATION DOSAGE (If Supplied By Facility): CTDIvol = ( 20 to ) mGy, DLP = ( 338.12 ) mGycm Individualized dose optimization techniques were used for this CT. TECHNIQUE: The patient was placed in the prone position. A noncontrast CT was performed to localize the lesion in the posterior left upper lobe . The skin surface was prepped and draped in a sterile fashion. 1% lidocaine was used for local anesthesia. Using CT guidance, a 20-gauge coaxial biopsy device was advanced to the periphery of the lesion. A total of 5 core specimens were obtained. The specimens were placed in a formalin solution. A post procedure CT demonstrated no adverse sequelae or pneumothorax. The patient tolerated the procedure well without adverse event. A negative biopsy does not exclude malignancy. Further imaging or clinical followup based on patient condition and degree of clinical suspicion for malignancy. Suggest rebiopsy, if biopsy results do not match with clinical scenario. CT/Biopsy/Inj or Needle Placement IMPRESSION: 1. CT directed core needle biopsy of the posterior left upper lobe lung nodule using CT image guidance with image documentation as described. Pathology results are pending. 2. Conscious Sedation protocol utilized with independent monitoring. Electronically Signed: Chris Ventura MD at 11:31 EDT ,
--- NOTE | 2024-01-13 10:15 | RAD_ITS ---
STUDY: X-RAY CHEST REASON FOR EXAM: Male, 83 years old. Post lung abscess drainage/biopsy -- Immediately post lung biopsy TECHNIQUE: AP inspiration and expiration views. COMPARISON: Comparison is made with prior study dated December 12, 2023. FINDINGS: EKG electrodes are seen. There is evidence of a left-sided 10% pneumothorax on the immediate post left lung biopsy radiographs. The patient is asymptomatic. RAD/Chest Insp/Exp 2 View IMPRESSION: 10% left-sided pneumothorax following the left CT-guided lung biopsy. Patient will be monitored appropriately. Electronically Signed: Chris Ventura MD at 11:08 EDT ,
[2024-01-13] MEDS: Midazolam 2 MG/2 ML Syringe IV (10:28)
[2024-01-13] MEDS: 0.9% Saline Lock 10 ML Syringe IV ×4 (10:29→11:14)
[2024-01-13] MEDS: fentaNYL 100 MCG/2 ML Ampul IV (10:30)
[2024-01-13] MEDS: Lidocaine 2% (20 ml mdv) 20 ML Vial INFILT (10:33)
[2024-01-13] MEDS: Ketorolac 30 MG/ML Syringe IM (11:10)
--- NOTE | 2024-01-13 12:15 | RAD_ITS ---
STUDY: X-RAY CHEST REASON FOR EXAM: Male, 83 years old. Post lung abscess drainage/biopsy -- 2 hours post lung biopsy TECHNIQUE: AP inspiration and expiration views. COMPARISON: Comparison is made with prior study done earlier in the day. FINDINGS: EKG electrodes are seen. Stable left pneumothorax on the 2 hour post left lung biopsy radiographs. RAD/Chest Insp/Exp 2 View IMPRESSION: Stable left pneumothorax on the two-hour post left lung biopsy radiographs. Electronically Signed: Chris Ventura MD at 14:09 EST ,
== END | disposition home or self-care (01) ==
PROVIDERS: PCP Family Medicine; Referring Provider Family Medicine Geriatric Medicine; Visit Provider Family Medicine Geriatric Medicine
DX: J85.2 Abscess of lung without pneumonia (principal); J84.10 Pulmonary fibrosis, unspecified
CPT/HCPCS: 32408; 71046; 77012; 88172; 88305; 88313; 99156; A4216; C2613

== ENCOUNTER 2024-01-15 18:35 | Inpatient (IN) | payer MEDICARE, SELFPAY ==
[2024-01-15 18:41] VITALS: BP 93/55; PULSE 75; RESP 14; TEMP 36.6; O2SAT 94; BMI 25.4
[2024-01-15 18:57] VITALS: BMI 25.4
[2024-01-15 19:30] VITALS: PULSE 79; RESP 16; O2SAT 94
[2024-01-15] MEDS: levalbuterol HCL 0.63 MG/3 ML VIAL.NEB INHALATION (19:30)
[2024-01-15] MEDS: Budesonide Respules 0.5 MG/2 ML AMPUL.NEB. INHALATION (19:30)
[2024-01-15] MEDS: Methocarbamol 750 MG Tablet PO (22:14)
[2024-01-15] MEDS: Dofetilide 250 MCG Capsule PO (22:14)
[2024-01-15] MEDS: Ezetimibe 10 MG Tablet PO (22:14)
[2024-01-15] MEDS: Atorvastatin Calcium 10 MG Tablet PO (22:14)
[2024-01-15] MEDS: LORazepam 0.5 MG Tablet PO (22:15)
[2024-01-15] MEDS: guaiFENesin 1,200 MG Tablet 1200 MG PO (22:15)
[2024-01-15] MEDS: APIXABAN 5 MG TABLET PO (22:15)
[2024-01-15] MEDS: Cyanocobalamin (B12) 1,000 MCG/ML Vial 1000 MCG IM (22:15)
[2024-01-15] MEDS: 0.9% Saline Lock 10 ML Syringe IV (22:21)
--- NOTE | 2024-01-15 22:28 | HP.PCM_ITS ---
HPI - General General Date of Admission: 01/15/24 Date of Service: 01/15/24 Chief Complaint: Here for rehabilitation. HPI Narrative ELIO DORAN, is a 83 Male who presents with followin01/13/2024 [facility] ED TCU resident iatrogenic pneumothorax after lung biopsy. Left sided Thora Vent ( Chest Tube ) placed. 01/14/2024 Admit [facility]. Consult Dr. Zapata, chest tube under water seal. Consult Dr. Galloway for lung abscess. 01/14/2024 Dr. Zapata chest tube to Heimlich valve, off water seal. Repeat Chest X-ray in AM. 01/14/2024 Dr. Galloway recommended stopping Zosyn for lung abscess. Stop Daptomycin for VRE bacteremia. 01/14/2024 Pain with breathing. Cholecystostomy tube drainage darker, increasing. Pneumothorax resolved. 01/14/2024 Network Systems Consultant thinks left lung lesion is pseudo-tumor, recommend no further evaluation. 01/15/2024 Lung biopsy showed benign tissue, no lung cancer. 01/15/2024 Pneumothorax resolved, chest tube pulled. 01/15/2024 Admit to TCU with debility, here for rehabilitation, strengthening, prior to discharge home with . [facility] Medical History Wears hearing aid in both ears Anemia Pancreatitis Former smoker CPAP (continuous positive airway pressure) dependence Sleep apnea On home oxygen therapy Congestive heart failure (CHF) TIA (transient ischemic attack) Pulmonary fibrosis Sinus node dysfunction HFrEF (heart failure with reduced ejection fraction) Chronic diarrhea Retroperitoneal hematoma Atherosclerotic heart disease of [place] coronary artery without angina pectoris Obstructive sleep apnea Hyperlipidemia SVT (supraventricular tachycardia) GERD (gastroesophageal reflux disease) COPD (chronic obstructive pulmonary disease) BPH (benign prostatic hyperplasia) Paroxysmal atrial fibrillation Home Medications ?Medication ?Instructions ?Recorded ?Last Taken ?Type rosuvastatin 5 mg tablet (Crestor) 5 mg PO QDAY cholesterol 07/04/17 10/24/23 History cholecalciferol (vitamin D3) 25 25 mcg PO DAILY supplement 05/22/21 10/24/23 History mcg (1,000 unit) tablet metoprolol succinate 25 mg 25 mg PO DAILY AFIB 06/27/21 12/12/23 History tablet,extended release 24 hr nitroglycerin 0.4 mg sublingual 0.4 mg sublingual Q5M PRN CP 06/27/21 Unknown History tablet cyanocobalamin (vitamin B-12) 100 mcg IM QMONTH supplement 03/29/23 10/17/23 History 1,000 mcg/mL injection kit dofetilide 250 mcg capsule 250 mcg PO Q12H afib 03/29/23 12/12/23 History duloxetine 60 mg capsule,delayed See Rx Instructions PO DAILY mood 03/29/23 10/24/23 History release empagliflozin 25 mg tablet 12.5 mg PO DAILY heart 03/29/23 10/24/23 History (Jardiance) finasteride 5 mg tablet 5 mg PO DAILY bph 03/29/23 10/24/23 History levalbuterol HCl 0.63 mg/3 mL 0.63 mg inhalation TID copd 03/29/23 10/24/23 History solution for nebulization midodrine 5 mg tablet 5 mg PO 1000,1400,1800 blood 03/29/23 10/24/23 History pressure vit C 250 mg-vit E 200 unit-zinc 1 cap PO DAILY supplement 03/29/23 10/24/23 History ox 12.5 xo-csyyci-jpiqyl-zeax capsule (ICaps AREDS2) budesonide 0.5 mg/2 mL suspension 0.5 mg (2 mL) inhalation BID.RT 04/01/23 10/24/23 Rx for nebulization Asthma #0 mL lorazepam 0.5 mg tablet 0.5 mg PO QHS Anxiety #5 tabs 04/01/23 10/23/23 Rx acetaminophen 500 mg tablet 1,000 mg (2 x 500 mg) PO Q6H PRN 04/10/23 10/23/23 Rx PRN Pain Score 1-3 #0 tabs apixaban 5 mg tablet (Eliquis) 5 mg PO BID BLOOD THINNER #0 tabs 04/10/23 01/11/24 08:00 Rx ezetimibe 10 mg tablet 10 mg PO QHS cholesterol 10/24/23 Unknown History guaifenesin 1,200 mg tablet, 1,200 mg PO BID mucus relief 10/24/23 Unknown History extended release 12 hr (Mucinex) pantoprazole 40 mg tablet,delayed 40 mg PO DAILY GERD 10/24/23 Unknown History release tiotropium 2.5 mcg-olodaterol 2.5 2 inh inhalation DAILY COPD 10/24/23 Unknown History mcg/actuation mist for inhalation (Stiolto Respimat) methocarbamol 750 mg tablet 750 mg PO BID Muscle Relaxer 11/20/23 Unknown History sucralfate 100 mg/mL oral 1 g PO BID antacid 11/20/23 01/15/24 18:00 History suspension (Carafate) Lactobacillus acidophilus, 1 packet PO TIDCM supplement 12/23/23 Unknown History bulgaricus 100 million cell granules packet (Floranex) oxycodone 5 mg capsule 5 mg PO Q6H PRN pain 12/23/23 Unknown History tamsulosin 0.4 mg capsule 0.8 mg PO DINNER bph 12/23/23 Unknown History bumetanide 0.5 mg tablet 1 mg PO MOWEFR PRN EDEMA 01/15/24 Unknown History Allergy/AdvReac Type Severity Reaction Status Date / Time tramadol Allergy Unknown PT UNSURE Verified 01/13/24 09:44 OF REACTION clindamycin AdvReac Intermediate Rash Verified 01/13/24 09:44 terbinafine AdvReac Intermediate Rash Verified 01/13/24 09:44 Family History Mother , Age 64 from Emphysema COPD (chronic obstructive pulmonary disease) Blood disorder Father No problems noted. Surgical History History of cholecystectomy S/P ablation of atrial fibrillation History of left heart catheterization (05/27/21) History of tonsillectomy History of ankle surgery History of back surgery History of appendectomy History of inguinal hernia repair History of umbilical hernia repair Social History household members: spouse housing: house Smoking Status: Former smoker how long ago did patient quit smokin years ago alcohol intake: current alcohol intake frequency: holidays/special occasions only substance use type: does not use caffeine: Yes Type: coffee Number of servings: 2 ROS Constitutional Constitutional: Reports weakness; Denies chills, fever(s) or weight gain ENT HEENT: Denies headache(s), nasal congestion or nasal discharge Cardiovascular Cardiovascular: Denies chest pain or palpitations Respiratory/Chest Respiratory/Chest: Denies cough, excessive phlegm production or shortness of breath with exertion Gastrointestinal Gastrointestinal: Denies abdominal pain, nausea or vomiting Genitourinary Genitourinary: Denies dysuria Musculoskeletal Musculoskeletal: Denies joint pain or joint swelling Integumentary Integumentary: Denies rash or wounds Neurologic Neurologic: Denies focal weakness, numbness or tingling Psychiatric Psychiatric: Denies anxiety, auditory hallucinations, depression, homicidal ideation or suicidal ideation Vital Signs Vital Signs Vital Signs: 01/15/24 19:30 Pulse Rate 79 Respiratory Rate 16 Respiratory Pattern Normal Pulse Ox 94 Oxygen Delivery Method Nasal Cannula Oxygen Flow Rate (L/min) 2 Physical Exam Const alert General Appearance: cooperative HEENT normocephalic Eyes PERRL and EOMs intact bilaterally Neck supple, no JVD and no carotid bruits Resp normal respiratory effort, normal air movement and clear to auscultation bilaterally Cardio regular rate and regular rhythm GI normal to inspection, nondistended, normoactive bowel sounds, non-tender and non-distended GI Narrative: Right upper quadrant cholecystostomy tube draining dark green fluid. Extremity normal capillary refill General Extremity: Negative for edema Skin no rashes or lesions noted General Skin Exam: no breakdown Psych affect normal Appearance: appropriate Assessment & Plan Assessment/Plan (1) Debility: (2) Acute respiratory failure with hypoxia: (3) Pneumothorax after biopsy: (4) Acalculous cholecystitis: (5) Abscess of lung: (6) VRE bacteremia: (7) Emphysema of lung: (8) Atrial fibrillation: (9) Hypothyroidism: (10) Depression: (11) (HFpEF) heart failure with preserved ejection fraction: (12) BPH (benign prostatic hyperplasia): (13) Anxiety: (14) Muscle spasm: (15) Orthostatic hypotension: (16) Macular degeneration: (17) Coronary artery disease: (18) GERD (gastroesophageal reflux disease): PLAN: Plan 83 year old male with below past medical history hospitalized for acute respiratory failure with hypoxia 2/2 to pneumothorax after lung biopsy, resolved with chest tube, admitted to TCU with debility, here for rehabilitation, strengthening, prior to discharge home with . * Debility - PT/OT. * Pain - Tylenol 1000mg q6 prn pain (1-3), Oxycodone 5mg q6 prn pain (1-10). * Bowel - Senna/colace 1 tablet bid. * Adult immunization - Administer pneumonia vaccine, covid vaccine, flu vaccine as appropriate. * DVT prophylaxis - on Eliquis. * Atrial fibrillation - Metoprolol succinate 25mg daily, Tikosyn 250mg bid, Eliquis 5mg bid. * Hyperlipidemia - Atorvastatin 10mg qhs, Zetia 10mg daily. * COPD - Budesonide 0.5mg bid, Levalbuterol 0.63 tid, Incruse 1 puff daily. * HFpEF - Metoprolol succinate 25mg daily, Jardiance 12.5mg daily, Bumex 1mg mwf prn. * Vitamin D deficiency - D3 25mcg daily. * Depression - Duloxetine 60mg daily, stable chronic terminal worker use, GDR not recommended. * BPH - Finasteride 5mg daily, Tamsulosin 0.8mg daily. * Congestion - Mucinex 1200mg bid. * GI prophylaxis - Lactobacillus 1 cap tidcm. * Anxiety - Lorazepam 0.5mg qhs, stable chronic prison use, GDR not recommended. * Muscle spasm - Robaxin 750mg bid. * Orthostatic hypotension - Midodrine 5mg tid. * Macular degeneration - Healthy Eyes 1 cap daily. * CAD - Metoprolol succinate 25mg daily, Eliquis 5mg bid, TG 0.4mg sl qm prn. * GERD - Pantoprazole 40mg daily, Carafate 1gm bid.
--- NOTE | 2024-01-16 01:35 | NURSING ---
2200-sl dc'd per pt request. small skin tear from removing drsg, 2x2 applied w/minimal tape. picc flushed w/10ml ns
[2024-01-16] MEDS: Pantoprazole Sodium 40 MG Tablet PO (05:35)
[2024-01-16] MEDS: Lactobacillis Acidophilus 1 CAP PO ×3 (05:35→17:07)
[2024-01-16 07:25] VITALS: BP 106/66; PULSE 75
[2024-01-16] MEDS: Metoprolol(XL)Succ 25 MG Tablet PO (07:25)
[2024-01-16] MEDS: Senna/Docusate Sodium 1 Tablet PO ×2 (07:25→22:23)
[2024-01-16] MEDS: Methocarbamol 750 MG Tablet PO ×2 (07:25→22:23)
[2024-01-16] MEDS: Cholecalciferol (VIT D3) 25 MCG TABLET (1,000 UNITS) PO (07:25)
[2024-01-16] MEDS: Dofetilide 250 MCG Capsule PO ×2 (07:25→22:23)
[2024-01-16] MEDS: Multivitamin (Healthy Eyes) Capsule 1 CAP PO (07:26)
[2024-01-16] MEDS: DULoxetine Hcl 60 MG Capsule PO (07:26)
[2024-01-16] MEDS: APIXABAN 5 MG TABLET PO ×2 (07:26→22:23)
[2024-01-16] MEDS: guaiFENesin 1,200 MG Tablet 1200 MG PO ×2 (07:27→22:23)
[2024-01-16] MEDS: Finasteride 5 MG Tablet PO (07:27)
[2024-01-16] MEDS: Umeclidinium Brm/Vilanterol 62.5-25 mcg Inh 1 PUFF INHALATION (07:27)
[2024-01-16] MEDS: Empagliflozin 25 MG Tablet 12.5 MG PO (07:28)
[2024-01-16] MEDS: Menthol/Lanolin/Calamine/Znox 113 GM Tube 1 APPLIC TOPICAL ×2 (07:28→22:33)
[2024-01-16] MEDS: Nystatin Powder 15gm Bottle 1 APPLIC TOPICAL ×2 (07:29→22:33)
[2024-01-16 07:42] VITALS: PULSE 78; RESP 16; O2SAT 95
[2024-01-16] MEDS: Budesonide Respules 0.5 MG/2 ML AMPUL.NEB. INHALATION ×2 (07:45→20:40)
[2024-01-16] MEDS: levalbuterol HCL 0.63 MG/3 ML VIAL.NEB INHALATION ×2 (07:45→08:40)
[2024-01-16 08:46] LABS: Absolute Lymphocyte Count 1.21 X10^3/uL (0.83-4.51); Absolute Neutrophil Count 7.4 X10^3/uL (2.0-7.7); Basophil# 0.16 X10^3/uL; Basophil% 1.5 % (0-1); Eosinophils% 7.5 % (0-5); Hematocrit 35.7 % (40-54); Hemoglobin 11.2 g/dL (13.0-16.5); Lymphocyte # 1.21 X10^3/ul (0.83-4.51); Lymphocyte % 11.4 % (19-41); Mean Corp Hgb Conc 31.4 g/dL (32-36); Mean Corpuscular Hgb 29.6 pg (27.0-32.0); Mean Corpuscular Volume 94.2 fL (80-94); Mean Platelet Vol. 9.6 fl (6.2-12.0); Monocyte# 0.99 X10^3/uL; Monocyte% 9.3 % (0-10); NRBC Flagged by Analyzer 0 % (0-5); Neutrophil # 7.39 X10^3/uL (2.7-7.7); Neutrophil % 69.3 % (47-70); Platelet Count 302 K/mm3 (150-450); RBC Distribution Width SD 52.1 fl (35.1-43.9); Red Blood Count 3.79 M/mm3 (4.6-6.2); White Blood Count 10.7 K/mm3 (4.4-11.0)
[2024-01-16 09:09] LABS: Anion Gap 6 (5-15); BUN 10 mg/dL (7-18); BUN/Creat Ratio 14.6 RATIO (10-20); Calcium,Total 9.1 mg/dL (8.5-10.1); Chloride 104 mmol/L (98-107); Creatinine, Serum 0.69 mg/dL (0.70-1.30); EST Glomerular Filtration Rate 116 mL/min (>60); Est Glom Filt Rate - Afr Amer 141 mL/min (>60); Estimated Creatinine Clearance 65.31 ml/min; Glucose 93 mg/dL (74-106); Potassium 3.7 mmol/L (3.5-5.1); Sodium Level 136 mmol/L (136-145)
[2024-01-16 09:47] VITALS: BP 106/66; PULSE 75; RESP 18; TEMP 36.3; O2SAT 97
[2024-01-16 11:13] VITALS: O2SAT 97
[2024-01-16] MEDS: 0.9% Saline Lock 10 ML Syringe IV ×2 (13:40→22:30)
--- NOTE | 2024-01-16 15:19 | NURSING ---
Patient requested arthritis pain compound be restarted. N.O. received from physician for Arthritis compound cream bid. Patient updated.
[2024-01-16] MEDS: Tamsulosin HCl 0.4 MG Capsule 0.8 MG PO (17:07)
[2024-01-16 20:40] VITALS: PULSE 72; RESP 18; O2SAT 91
[2024-01-16 22:00] VITALS: PULSE 74; O2SAT 97
[2024-01-16] MEDS: Ezetimibe 10 MG Tablet PO (22:23)
[2024-01-16] MEDS: Arthritis Pain Compound 60 CLICK TUBE TOPICAL (22:23)
[2024-01-16] MEDS: Atorvastatin Calcium 10 MG Tablet PO (22:23)
[2024-01-16] MEDS: LORazepam 0.5 MG Tablet PO (22:23)
[2024-01-17] VITALS (7 sets, daily range): BP systolic 102–110; BP diastolic 60–72; PULSE 70–81; RESP 16–18; TEMP 36.7; O2SAT 93–98
[2024-01-17] MEDS: Pantoprazole Sodium 40 MG Tablet PO (06:17)
[2024-01-17] MEDS: levalbuterol HCL 0.63 MG/3 ML VIAL.NEB INHALATION ×3 (07:40→20:00)
[2024-01-17] MEDS: Budesonide Respules 0.5 MG/2 ML AMPUL.NEB. INHALATION ×2 (07:45→20:00)
[2024-01-17] MEDS: Lactobacillis Acidophilus 1 CAP PO ×3 (07:55→17:56)
[2024-01-17] MEDS: Umeclidinium Brm/Vilanterol 62.5-25 mcg Inh 1 PUFF INHALATION (07:55)
[2024-01-17] MEDS: Arthritis Pain Compound 60 CLICK TUBE TOPICAL ×2 (07:55→22:53)
[2024-01-17] MEDS: DULoxetine Hcl 60 MG Capsule PO (07:56)
[2024-01-17] MEDS: Menthol/Lanolin/Calamine/Znox 113 GM Tube 1 APPLIC TOPICAL ×2 (07:56→22:58)
[2024-01-17] MEDS: APIXABAN 5 MG TABLET PO ×2 (07:57→22:56)
[2024-01-17] MEDS: Multivitamin (Healthy Eyes) Capsule 1 CAP PO (07:57)
[2024-01-17] MEDS: Empagliflozin 25 MG Tablet 12.5 MG PO (07:57)
[2024-01-17] MEDS: Methocarbamol 750 MG Tablet PO ×2 (07:58→22:55)
[2024-01-17] MEDS: guaiFENesin 1,200 MG Tablet 1200 MG PO ×2 (07:59→22:55)
[2024-01-17] MEDS: Nystatin Powder 15gm Bottle 1 APPLIC TOPICAL ×2 (07:59→22:53)
[2024-01-17] MEDS: Senna/Docusate Sodium 1 Tablet PO ×2 (08:00→22:55)
[2024-01-17] MEDS: Finasteride 5 MG Tablet PO (08:00)
[2024-01-17] MEDS: Dofetilide 250 MCG Capsule PO ×2 (08:00→22:55)
[2024-01-17] MEDS: Metoprolol(XL)Succ 25 MG Tablet PO (08:01)
[2024-01-17] MEDS: Cholecalciferol (VIT D3) 25 MCG TABLET (1,000 UNITS) PO (08:01)
[2024-01-17] MEDS: 0.9% Saline Lock 10 ML Syringe IV ×3 (14:11→22:58)
[2024-01-17] MEDS: Tamsulosin HCl 0.4 MG Capsule 0.8 MG PO (17:56)
[2024-01-17] MEDS: LORazepam 0.5 MG Tablet PO (22:53)
[2024-01-17] MEDS: Ezetimibe 10 MG Tablet PO (22:55)
[2024-01-17] MEDS: Atorvastatin Calcium 10 MG Tablet PO (22:55)
[2024-01-18] VITALS (9 sets, daily range): BP systolic 106–108; BP diastolic 62–66; PULSE 68–79; RESP 16–18; TEMP 36.2–36.3; O2SAT 97–99
[2024-01-18] MEDS: Pantoprazole Sodium 40 MG Tablet PO (06:26)
[2024-01-18] MEDS: Budesonide Respules 0.5 MG/2 ML AMPUL.NEB. INHALATION ×2 (07:12→19:53)
[2024-01-18] MEDS: levalbuterol HCL 0.63 MG/3 ML VIAL.NEB INHALATION ×3 (07:12→19:53)
[2024-01-18] MEDS: 0.9% Saline Lock 10 ML Syringe IV ×3 (07:59→21:16)
[2024-01-18] MEDS: Umeclidinium Brm/Vilanterol 62.5-25 mcg Inh 1 PUFF INHALATION (08:06)
[2024-01-18] MEDS: Lactobacillis Acidophilus 1 CAP PO ×3 (08:07→16:53)
[2024-01-18] MEDS: Arthritis Pain Compound 60 CLICK TUBE TOPICAL ×2 (08:07→21:13)
[2024-01-18] MEDS: Senna/Docusate Sodium 1 Tablet PO ×2 (08:08→21:20)
[2024-01-18] MEDS: Methocarbamol 750 MG Tablet PO ×2 (08:08→21:19)
[2024-01-18] MEDS: APIXABAN 5 MG TABLET PO ×2 (08:08→21:18)
[2024-01-18] MEDS: Multivitamin (Healthy Eyes) Capsule 1 CAP PO (08:08)
[2024-01-18] MEDS: guaiFENesin 1,200 MG Tablet 1200 MG PO ×2 (08:08→21:20)
[2024-01-18] MEDS: DULoxetine Hcl 60 MG Capsule PO (08:08)
[2024-01-18] MEDS: Dofetilide 250 MCG Capsule PO ×2 (08:09→21:19)
[2024-01-18] MEDS: Cholecalciferol (VIT D3) 25 MCG TABLET (1,000 UNITS) PO (08:09)
[2024-01-18] MEDS: Metoprolol(XL)Succ 25 MG Tablet PO (08:09)
[2024-01-18] MEDS: Empagliflozin 25 MG Tablet 12.5 MG PO (08:09)
[2024-01-18] MEDS: Nystatin Powder 15gm Bottle 1 APPLIC TOPICAL ×2 (08:11→21:20)
[2024-01-18] MEDS: Menthol/Lanolin/Calamine/Znox 113 GM Tube 1 APPLIC TOPICAL ×2 (08:11→21:15)
[2024-01-18] MEDS: Finasteride 5 MG Tablet PO (10:20)
--- NOTE | 2024-01-18 10:48 | NURSING ---
Rotary Saw Operator Note; Activity Asset: Jer Gandhi has returned to [facility] to continue his therapy and remains independent in his choice of daily activities. He prefers to be called Skip . His family, friends and christian will visits and bring him items he may need. Skizurdo will read, watch tv, work on word puzzles and welcomes visits from the cook specialty and therapy dog when available. His is also a resident at this time and will visit with each other daily. Staff will encourage social activities, remind him of weekly activities and respect his right to say no.
--- NOTE | 2024-01-18 15:53 | CASEMGMT ---
Social Work Pt readmitted x2. No changes to assessment. Met with pt and confirmed code status full code and pt's wish to continue with treatment. Educated to [facility] insurance with NRD 01/18. Pt has ALEXANDER drain. Per MAY, no scheduled IV ATB. Pt's goal is to return home with . Dtr, Lala very involved and supportive. Pt does not have advanced directives on file. SW to follow up with dtr. Will continue to follow for DC planning and support. Peyton Simmons, [employer] FACILITIES ENGINEERING MANAGER
--- NOTE | 2024-01-18 16:26 | NURSING ---
AURA FROM SLEEP LAB CALLED AND STATED THAT A PROVIDER HAS TO DO A FACE TO FACE SLEEP ASSESSMENT ON PT AND DOCUMENT EVERYTHING WHILE PT WEARS THE CPAP LIKE SNORING ETC, AND WHY PT DOES NOT WEAR IT BEFORE THEY CAN DO ANOTHER SLEEP TEST ON PT CAUSE INSURANCE WILL NOT PAY FOR TEST UNLESS THERE IS A FACE TO FACE WITH PT BY PROVIDER. AURA ALSO STATED SHE DID CALL OFFICE AND UPDATED THEM AND IS WAITING ON A CALL BACK FROM . AURA ALSO STATED SHE FOUND IN CHART THAT IN JULY PT WAS ON CPAP AND WAS HAVING GOOD OUTCOMES.
[2024-01-18] MEDS: Tamsulosin HCl 0.4 MG Capsule 0.8 MG PO (16:53)
--- NOTE | 2024-01-18 18:21 | NURSING ---
New orders received from Dr. Shah - 1) Remeron 7.5mg - 1 tab po at HS. 2) Zofran PRN. Patient and family aware of new orders. Patient also okay'd to order cholangiogram.
[2024-01-18] MEDS: LORazepam 0.5 MG Tablet PO (21:12)
[2024-01-18] MEDS: Atorvastatin Calcium 10 MG Tablet PO (21:19)
[2024-01-18] MEDS: Ezetimibe 10 MG Tablet PO (21:21)
[2024-01-18] MEDS: Mirtazapine 15 MG Tablet 7.5 MG PO (21:24)
[2024-01-19] VITALS (7 sets, daily range): BP systolic 108; BP diastolic 66; PULSE 72–83; RESP 15–18; TEMP 36.3; O2SAT 96–99; BMI 24.3
[2024-01-19] MEDS: Pantoprazole Sodium 40 MG Tablet PO (06:06)
[2024-01-19] MEDS: levalbuterol HCL 0.63 MG/3 ML VIAL.NEB INHALATION ×2 (07:20→21:00)
[2024-01-19] MEDS: Budesonide Respules 0.5 MG/2 ML AMPUL.NEB. INHALATION ×2 (07:25→21:00)
[2024-01-19] MEDS: Lactobacillis Acidophilus 1 CAP PO ×3 (08:12→17:14)
[2024-01-19] MEDS: Umeclidinium Brm/Vilanterol 62.5-25 mcg Inh 1 PUFF INHALATION (08:12)
[2024-01-19] MEDS: Arthritis Pain Compound 60 CLICK TUBE TOPICAL ×2 (08:12→21:49)
[2024-01-19] MEDS: DULoxetine Hcl 60 MG Capsule PO (08:13)
[2024-01-19] MEDS: Menthol/Lanolin/Calamine/Znox 113 GM Tube 1 APPLIC TOPICAL ×2 (08:13→21:49)
[2024-01-19] MEDS: Empagliflozin 25 MG Tablet 12.5 MG PO (08:13)
[2024-01-19] MEDS: APIXABAN 5 MG TABLET PO ×2 (08:13→21:48)
[2024-01-19] MEDS: Multivitamin (Healthy Eyes) Capsule 1 CAP PO (08:13)
[2024-01-19] MEDS: Metoprolol(XL)Succ 25 MG Tablet PO (08:14)
[2024-01-19] MEDS: Methocarbamol 750 MG Tablet PO ×2 (08:14→21:48)
[2024-01-19] MEDS: Dofetilide 250 MCG Capsule PO ×2 (08:14→21:48)
[2024-01-19] MEDS: guaiFENesin 1,200 MG Tablet 1200 MG PO ×2 (08:14→21:48)
[2024-01-19] MEDS: Finasteride 5 MG Tablet PO (08:14)
[2024-01-19] MEDS: Senna/Docusate Sodium 1 Tablet PO ×2 (08:14→21:48)
[2024-01-19] MEDS: Cholecalciferol (VIT D3) 25 MCG TABLET (1,000 UNITS) PO (08:14)
[2024-01-19] MEDS: Nystatin Powder 15gm Bottle 1 APPLIC TOPICAL ×2 (08:14→21:49)
--- NOTE | 2024-01-19 09:12 | CASEMGMT ---
Addendum entered by Peyton Simmons 01/19/24 09:20: SW also requested dtr provide copies of advanced directives. Dtr agreed. Original Note: Social Work SW received call from dtr, aLla, to discuss DC planning. Pt wants to be home and he no longer has IV ATB. Dtr is requesting several things happen prior to DC: PICC is pulled, dtr is educated on drain management, sleep study and cholangiogram is completed, which per dtr, it can be scheduled the week of 01/24. Dtr would also like CHN for HHC. SW to collaborate with nursing and follow up with dtr on setting a DC. SW emailed sleep mobile home laborer to get availability. Rifle Case Repairer replied with list of needs prior to sleep study being able to be completed. Pt likely needs to follow up with Dr. Douglas for further evaluation and documentation and complete the sleep study as a na outpatient, if indicated. Charge nurse to schedule cholangiogram, however, that is a two part process that will likely take two weeks to accomplish, and may need to be completed as an outpatient. Charge nurse aware of sleep lab requests and will discuss with Dr. RANDALL will remain until day of DC. Once DC date is set, this worker can refer to N [facility]. SW will continue to follow and finalize DC plans. Peyton Simmons MSW SHIP PURSER
--- NOTE | 2024-01-19 10:02 | PCM.PN.DRR ---
Documented by User: Nydia Kulkarni 01/19/24 10:46 TCU RX Drug Regimen Review Subjective/Objective Subjective/Objective Subjective: TCU Admission. 83 YOM TCU resident presented to the ER. Hospitalized for acute respiratory failure with hypoxia 2/2 to pneumothorax after lung biopsy, resolved with chest tube. Admitted to TCU with debility for strengthening and rehabilitation. Objective: Allergies tramadol Allergy (Unknown, Verified 01/13/24 09:44) PT UNSURE OF REACTION pt and daughter unsure of reaction clindamycin Adverse Reaction (Intermediate, Verified 01/13/24 09:44) Rash terbinafine Adverse Reaction (Intermediate, Verified 01/13/24 09:44) Rash Current Medications Generic Name Dose Route Start Last Admin Trade Name Freq PRN Reason Stop Dose Admin Acetaminophen 1,000 mg 01/15/24 19:01 Acetaminophen 500 Mg Tablet PO Q6H PRN PRN Pain Score 1-3 Apixaban 5 mg 01/15/24 22:00 01/19/24 08:13 Apixaban 5 Mg Tablet PO 5 mg BID GIOVANNI Administration Atorvastatin Calcium 10 mg 01/15/24 22:00 01/18/24 21:19 Atorvastatin Calcium 10 Mg Tablet PO 10 mg QHS GIOVANNI Administration Budesonide 0.5 mg 01/15/24 19:15 01/19/24 07:25 Budesonide Respules 0.5 Mg/2 Ml Ampul.Neb. INHALATION 0.5 mg BID.RT GIOVANNI Administration Bumetanide 1 mg 01/15/24 19:01 Bumetanide 0.5 Mg Tablet PO MOWEFR PRN EDEMA Protocol Calamine/Phenol 1 applic 01/16/24 10:00 01/19/24 08:13 Menthol/Lanolin/Calamine/Znox 113 Gm Tube TOPICAL 1 applic BID GIOVANNI Administration Protocol Cholecalciferol 25 mcg 01/16/24 10:00 01/19/24 08:14 Cholecalciferol (Vit D3) 25 Mcg Tablet (1,000 Units) PO 25 mcg DAILY GIOVANNI Administration Compound Med 2 click 01/16/24 22:00 01/19/24 08:12 Arthritis Pain Compound 60 Click Tube TOPICAL 2 click BID GIOVANNI Administration Protocol Dofetilide 250 mcg 01/15/24 22:00 01/19/24 08:14 Dofetilide 250 Mcg Capsule PO 250 mcg BID GIOVANNI Administration Duloxetine HCl 60 mg 01/16/24 10:00 01/19/24 08:13 Duloxetine Hcl 60 Mg Capsule PO 60 mg DAILY GIOVANNI Administration Ezetimibe 10 mg 01/15/24 22:00 01/18/24 21:21 Ezetimibe 10 Mg Tablet PO 10 mg QHS GIOVANNI Administration Empagliflozin 12.5 mg 01/16/24 10:00 01/19/24 08:13 Empagliflozin 25 Mg Tablet PO 12.5 mg DAILY GIOVANNI Administration Finasteride 5 mg 01/16/24 10:00 01/19/24 08:14 Finasteride 5 Mg Tablet PO 5 mg DAILY GIOVANNI Administration Guaifenesin 1,200 mg 01/15/24 22:00 01/19/24 08:14 Guaifenesin 1,200 Mg Tablet PO 1,200 mg BID GIOVANNI Administration Heparin Sodium (Beef Lung) 50 units 01/15/24 19:38 Heparin Pf Lock 10 Units/Ml 50 Units/5 Ml Syringe IV UD PRN PICC Line Heparin Flush Sodium Chloride 500 mls @ 15 mls/hr 01/15/24 19:38 IV .[id number] PRN Saline Flush Sodium Chloride 500 mls @ 15 mls/hr 01/15/24 19:38 IV .[id number] PRN Additional IVPB Infusion Levalbuterol HCl 0.63 mg 01/15/24 22:00 01/19/24 07:20 Levalbuterol Hcl 0.63 Mg/3 Ml Vial.Neb INHALATION 0.63 mg TID.RT GIOVANNI Administration Lorazepam 0.5 mg 01/15/24 22:00 01/18/24 21:12 Lorazepam 0.5 Mg Tablet PO 0.5 mg QHS GIOVANNI Administration Methocarbamol 750 mg 01/15/24 22:00 01/19/24 08:14 Methocarbamol 750 Mg Tablet PO 750 mg BID GIOVANNI Administration Metoprolol Succinate 25 mg 01/16/24 10:00 01/19/24 08:14 Metoprolol(Xl)Succ 25 Mg Tablet PO 25 mg DAILY GIOVANNI Administration Protocol Midodrine 5 mg 01/16/24 10:00 01/19/24 08:12 Midodrine Hcl 5 Mg Tablet PO Not Given 1000,1400,1800 GIOVANNI Mirtazapine 7.5 mg 01/18/24 22:00 01/18/24 21:24 Mirtazapine 15 Mg Tablet PO 7.5 mg QHS GIOVANNI Administration Multivitamins/Minerals 1 cap 01/16/24 10:00 01/19/24 08:13 Multivitamin (Healthy Eyes) Capsule PO 1 cap DAILY GIOVANNI Administration Nitroglycerin 0.4 mg 01/15/24 19:19 Nitroglycerin (Inpatient Use) 0.4 Mg Tab.Subl SL Q5M PRN CARDIAC/CHEST PAIN Nutritional Formula (Lactose Free) 120 ml 01/19/24 12:00 Ensure Plus High Protein 120 Ml Liquid PO 4X/DAY GIOVANNI Nystatin 1 applic 01/16/24 10:00 01/19/24 08:14 Nystatin Powder 15gm Bottle TOPICAL 1 applic BID GIOVANNI Administration Protocol Ondansetron HCl 8 mg 01/18/24 17:30 Ondansetron Odt 4 Mg Tablet PO Q8H PRN PRN NAUSEA/VOMITING Oxycodone HCl 5 mg 01/15/24 19:01 Oxycodone 5 Mg Tablet PO Q6H PRN PAIN 1-10 Pantoprazole Sodium 40 mg 01/16/24 07:00 01/19/24 06:06 Pantoprazole Sodium 40 Mg Tablet PO 40 mg DAILY@0700 GIOVANNI Administration Senna/Docusate Sodium 1 tablet 01/16/24 10:00 01/19/24 08:14 Senna/Docusate Sodium 1 Tablet PO 1 tablet BID GIOVANNI Administration Sodium Chloride 10 - 40 ml 01/15/24 19:38 01/18/24 21:16 0.9% Saline Lock 10 Ml Syringe IV 10 ml UD PRN Administration Open End PICC Flush Sodium Chloride 10 - 40 ml 01/15/24 19:38 0.9 % Nacl (Sterile) Posiflush 10 Ml IV UD PRN Port access or dressing change Sodium Chloride 10 - 40 ml 01/15/24 19:38 0.9% Saline Lock 10 Ml Syringe IV UD PRN SALINE FLUSH Sucralfate 1 gm 01/16/24 07:00 01/19/24 06:06 Sucralfate 1 Gm/10 Ml Udc PO 1 gm BID@0700,1600 GIOVANNI Administration Tamsulosin HCl 0.8 mg 01/16/24 17:00 01/18/24 16:53 Tamsulosin Hcl 0.4 Mg Capsule PO 0.8 mg DINNER GIOVANNI Administration Umeclidinium/Vilanterol 1 puff 11/02/24 10:00 01/19/24 08:12 Umeclidinium Brm/Vilanterol 62.5-25 Mcg Inh INHALATION 1 puff DAILY GIOVANNI Administration Problem List Hypothyroidism (Acute) Pneumothorax after biopsy (Acute) Muscle spasm (Acute) (HFpEF) heart failure with preserved ejection fraction (Acute) Emphysema of lung (Acute) VRE bacteremia (Acute) Acalculous cholecystitis (Acute) Macular degeneration (Acute) Orthostatic hypotension (Acute) Atrial fibrillation (Acute) Abscess of lung (Acute) Coronary artery disease (Acute) Depression (Acute) Anxiety (Acute) Debility (Acute) BPH (benign prostatic hyperplasia) (Acute) GERD (gastroesophageal reflux disease) (Acute) Vital Signs Temp Pulse Resp BP Pulse Ox O2 Del Method O2 Flow Rate 97.3 F L 76 18 108/66 98 Nasal Cannula 2 01/19/24 09:54 01/19/24 09:54 01/19/24 09:54 01/19/24 09:54 01/19/24 09:54 01/19/24 09:54 01/19/24 09:54 Oxygen Flow Rate (L/min) 2 Oxygen Delivery Method Nasal Cannula Weight: 75.75 kg Body Mass Index (BMI) 25.4 Sodium 136 mmol/L (136-145) 01/16/24 07:35 Potassium 3.7 mmol/L (3.5-5.1) 01/16/24 07:35 Chloride 104 mmol/L (98-107) 01/16/24 07:35 Carbon Dioxide 27.0 mmol/L (21.0-32.0) 01/16/24 07:35 Anion Gap 6 (5-15) 01/16/24 07:35 BUN 10 mg/dL (7-18) 01/16/24 07:35 Creatinine 0.69 mg/dL (0.70-1.30) L 01/16/24 07:35 Est GFR (MDRD) Af Amer 141 mL/min (>60) 01/16/24 07:35 Est GFR (MDRD) Non-Af 116 mL/min (>60) 01/16/24 07:35 BUN/Creatinine Ratio 14.6 RATIO (10-20) 01/16/24 07:35 Glucose 93 mg/dL (74-106) 01/16/24 07:35 Assessment/Plan: 1. Pain: arthritis pain compound 2 clicks topical BID, acetaminophen 1000 mg PO Q6H PRN pain 1-3 and oxycodone 5 mg PO Q6H PRN pain 1-10. Resident has not used any PRN doses. Please continue to monitor pain levels, PRN medication usage, LFTs (last 01/13/24), for constipation, respiratory depression, dizziness/drowsiness, and for syncope/ataxia/falls. 2. Bowel: senna/docusate 1 tablet PO BID. Please continue to monitor for constipation, diarrhea. Last documented bowel movement was 01/17/24. 3. Atrial fibrillation/HFpEF/CAD: dofetilide 250 mcg PO BID, metoprolol succinate 25mg PO daily, apixaban 5 mg PO BID, empagliflozin 12.5mg PO daily, bumetanide 1mg PO MFWF PRN edema and nitroglycerin 0.4mg SL Q5M PRN chest pain. No PRN doses have been given. Please continue to monitor for s/s of stroke, chest pain, for shortness of breath, heart rates (last 76), BP (last 108/66), QTc (recent QTc = 428 ms), potassium levels (last 3.7 mmol/L), sodium levels (last 136 mmol/L), renal function (last SCr 0.69 mg/dL) magnesium levels (last 2.3 mg/dL), for headache, for s/s of bleeding/excessive bruising, hemoglobin levels (last 11.2 g/dL, for s/s of dehydration, and for s/s of UTI and platelet count (last 302 K/mm3). 4. COPD: levalbuterol 0.63 mg Inhalation TID, umeclidinium/vilanterol 1 puff daily and budesonide 0.5mg inhalation BID. Resident is on scheduled long acting beta agonist and short acting beta agonist. Please consider changing short acting to PRN. Thanks. Please continue to monitor for shortness of breath, S/S of thrush, for palpitations, for constipation, dry mouth, dry eyes, and dizziness. 5. Hyperlipidemia: atorvastatin 10 mg PO QHS, ezetimibe 10 mg PO QHS. Please continue to monitor lipid levels (cholesterol = 147 mg/dL with LDL = 89 mg/dL on 04/03/23), LFTs (last 01/13/24), and for myalgias. 6. BPH: finasteride 5 mg PO daily, tamsulosin 0.8 mg PO daily. Please continue to monitor for s/s of urinary retention, urine stream and for s/s of orthostasis (last BP 108/66). 7. Orthostatic hypotension: midodrine 5 mg PO TID. Please continue to monitor for s/s of orthostasis. 8. Muscle spasms: methocarbamol 750 mg PO BID. Please continue to monitor for muscle spasms, anticholinergic side effects (BEERs), dizziness, drowsiness, confusion, sedation, and ataxia. 9. GERD: pantoprazole 40 mg PO daily, sucralfate 1 gram PO BID. Please continue to monitor for s/s of GERD, for diarrhea that could indicate clostridium difficile infection (BEERs), for s/s of bone resorption issues such as fractures, and for constipation. 10. GI prophylaxis/macular degeneration: lactobacillus 1 capsule PO TID with meals and healthy eyes 1 capsule PO daily. Please continue to monitor for diarrhea and abdominal pain. 11. Congestion: guaifenesin 1200mg PO BID. Please continue to monitor for congestion. 12. Vitamin D deficiency: cholecalciferol 25mcg PO daily. Please consider ordering a vitamin D level as there is no level in the chart. Thanks. 13. Nausea/vomiting: ondansetron 8mg PO Q8H PRN nausea/vomiting. Resident has not used any doses. Please continue to monitor for PRN usage and nausea/vomiting. Assessment/Plan for indications treated with psychotropic medications: 1. Depression: duloxetine 60 mg PO daily. Please see provider note regarding GDR. Please continue to monitor for depression, for suicidal ideation (black box warning), falls/fractures (BEERs), for s/s of serotonin syndrome, sodium levels (last 136 mmol/L), abdominal pain and dry mouth. 2. Anxiety: lorazepam 0.5 mg PO QHS. Please see provider note regarding GDR. Please continue to monitor for s/s of anxiety, drowsiness/dizziness, falls/fractures (BEERs), dementia delirium (BEERs). 3. Appetite loss: mirtazapine 7.5mg PO QHS. New medication, GDR not appropriate. Please continue to monitor for suicidal ideation (black box warning), sodium and improved appetite. Medical chart and medication regimen reviewed. The following medication irregularities or issues were identified: 1. Levalbuterol 0.63 mg Inhalation TID, umeclidinium/vilanterol 1 puff daily. Resident is on scheduled long acting beta agonist and short acting beta agonist. Please consider changing short acting to PRN. Thanks. 2. Cholecalciferol 25mcg PO daily. Please consider ordering a vitamin D level as there is no level in the chart. Thanks. Date Date of Note: 01/19/24
--- NOTE | 2024-01-19 10:27 | NURSING ---
Addendum entered by Lisa Rivers 01/19/24 11:33: Updated resident and dtr Lala about cholangiogram. Also updated both that appt made with Dr. Donald for 01/21/24 at 1115. Dtr will take resident to appt. Original Note: Called and spoke with xray staff about cholangiogram. They asked Dr. Ventura if he could do a cholangiogram, he said he could. Unable to enter specific order, xray said to put in abdominal xray order and put cholangiogram in comments. Ordered for the week of January 24. Xray will have to call back with specific date/time.
[2024-01-19] MEDS: Ensure Plus High Protein 120 ML LIQUID PO ×3 (12:57→21:48)
[2024-01-19] MEDS: Midodrine HCl 5 MG Tablet PO ×2 (13:01→17:14)
--- NOTE | 2024-01-19 13:37 | CASEMGMT ---
Social Work SW completed the BIMS(15) and PHQ-2(0) with pt on this date for the MDS assessment. ANASTASIYA Moreno
[2024-01-19 15:50] LABS: Vitamin D,25 Hydroxy 40.1 ng/mL
[2024-01-19] MEDS: Tamsulosin HCl 0.4 MG Capsule 0.8 MG PO (17:14)
[2024-01-19] MEDS: Mirtazapine 15 MG Tablet 7.5 MG PO (21:48)
[2024-01-19] MEDS: Atorvastatin Calcium 10 MG Tablet PO (21:48)
[2024-01-19] MEDS: LORazepam 0.5 MG Tablet PO (21:48)
[2024-01-19] MEDS: Ezetimibe 10 MG Tablet PO (21:48)
[2024-01-20] VITALS (8 sets, daily range): BP systolic 96–97; BP diastolic 59–61; PULSE 70–78; RESP 18–24; TEMP 36.3; O2SAT 92–98
[2024-01-20] MEDS: Ensure Plus High Protein 120 ML LIQUID PO ×2 (05:45→22:09)
[2024-01-20] MEDS: Pantoprazole Sodium 40 MG Tablet PO (05:45)
[2024-01-20] MEDS: Budesonide Respules 0.5 MG/2 ML AMPUL.NEB. INHALATION (07:32)
[2024-01-20] MEDS: Menthol/Lanolin/Calamine/Znox 113 GM Tube 1 APPLIC TOPICAL ×2 (08:33→21:59)
[2024-01-20] MEDS: Arthritis Pain Compound 60 CLICK TUBE TOPICAL ×2 (08:33→21:58)
[2024-01-20] MEDS: Lactobacillis Acidophilus 1 CAP PO ×2 (08:33→16:53)
[2024-01-20] MEDS: DULoxetine Hcl 60 MG Capsule PO (08:33)
[2024-01-20] MEDS: Nystatin Powder 15gm Bottle 1 APPLIC TOPICAL ×2 (08:33→22:01)
[2024-01-20] MEDS: Umeclidinium Brm/Vilanterol 62.5-25 mcg Inh 1 PUFF INHALATION (08:33)
[2024-01-20] MEDS: Dofetilide 250 MCG Capsule PO ×2 (08:34→22:03)
[2024-01-20] MEDS: Methocarbamol 750 MG Tablet PO ×2 (08:34→22:03)
[2024-01-20] MEDS: Midodrine HCl 5 MG Tablet PO ×3 (08:34→16:55)
[2024-01-20] MEDS: Empagliflozin 25 MG Tablet 12.5 MG PO (08:34)
[2024-01-20] MEDS: APIXABAN 5 MG TABLET PO ×2 (08:34→22:00)
[2024-01-20] MEDS: Senna/Docusate Sodium 1 Tablet PO ×2 (08:34→22:02)
[2024-01-20] MEDS: Metoprolol(XL)Succ 25 MG Tablet PO (08:34)
[2024-01-20] MEDS: guaiFENesin 1,200 MG Tablet 1200 MG PO ×2 (08:34→22:01)
[2024-01-20] MEDS: Multivitamin (Healthy Eyes) Capsule 1 CAP PO (08:34)
[2024-01-20] MEDS: Finasteride 5 MG Tablet PO (08:34)
[2024-01-20] MEDS: Cholecalciferol (VIT D3) 25 MCG TABLET (1,000 UNITS) PO (08:34)
--- NOTE | 2024-01-20 10:24 | CASEMGMT ---
Social Work Plan of care meeting held with pt, pt's and pt's dgt Lala in attendance. PT/OT/Nutrition/Activities updated family and team on pt progress since admission. Pt is doing well with therapy and continues to work on endurance. TAISHA updated Pt that review was sent to [facility] on 01/18 and determination of continued stay is pending. Family educated that continued stay is not guarnateed. SW provided family with written communication on insurance process and copay coverage during stay. Pt's dgt states she is working with nursing to schedule a cholangiogram and a sleep study and they would like pt to discharge once these appointements are scheduled. Pt to go to sleep lab and then home. SW will follow up with nursing to confirm appointments and set dc date. PT previously had home health services through [facility] and would like to restart these services. Pt is interested in a wheel chair at dc if covered by insurance. PT will return home with his and dgt will be with pt as well and available for any assist. Pt has all other needed DME. TAISHA will follow for dc planning. KAITLYN Valle
[2024-01-20] MEDS: levalbuterol HCL 0.63 MG/3 ML VIAL.NEB INHALATION ×2 (14:20→19:00)
[2024-01-20] MEDS: Tamsulosin HCl 0.4 MG Capsule 0.8 MG PO (16:53)
[2024-01-20] MEDS: 0.9% Saline Lock 10 ML Syringe IV (19:48)
[2024-01-20] MEDS: Ezetimibe 10 MG Tablet PO (22:01)
[2024-01-20] MEDS: Mirtazapine 15 MG Tablet 7.5 MG PO (22:03)
[2024-01-20] MEDS: Atorvastatin Calcium 10 MG Tablet PO (22:04)
[2024-01-20] MEDS: LORazepam 0.5 MG Tablet PO (22:09)
[2024-01-21] VITALS (10 sets, daily range): BP systolic 101–117; BP diastolic 56–67; PULSE 65–75; RESP 16–17; TEMP 36.3; O2SAT 94–96
[2024-01-21] MEDS: Pantoprazole Sodium 40 MG Tablet PO (06:11)
[2024-01-21] MEDS: Ensure Plus High Protein 120 ML LIQUID PO ×3 (06:11→21:40)
[2024-01-21] MEDS: Budesonide Respules 0.5 MG/2 ML AMPUL.NEB. INHALATION ×2 (07:37→19:15)
[2024-01-21] MEDS: levalbuterol HCL 0.63 MG/3 ML VIAL.NEB INHALATION ×2 (07:37→19:15)
[2024-01-21] MEDS: Umeclidinium Brm/Vilanterol 62.5-25 mcg Inh 1 PUFF INHALATION (08:35)
[2024-01-21] MEDS: Arthritis Pain Compound 60 CLICK TUBE TOPICAL ×2 (08:36→21:25)
[2024-01-21] MEDS: Menthol/Lanolin/Calamine/Znox 113 GM Tube 1 APPLIC TOPICAL ×2 (08:38→21:34)
[2024-01-21] MEDS: Nystatin Powder 15gm Bottle 1 APPLIC TOPICAL ×2 (08:38→21:34)
[2024-01-21] MEDS: Lactobacillis Acidophilus 1 CAP PO ×3 (08:38→17:25)
[2024-01-21] MEDS: DULoxetine Hcl 60 MG Capsule PO (08:40)
[2024-01-21] MEDS: Multivitamin (Healthy Eyes) Capsule 1 CAP PO (08:40)
[2024-01-21] MEDS: APIXABAN 5 MG TABLET PO ×2 (08:40→21:25)
[2024-01-21] MEDS: Empagliflozin 25 MG Tablet 12.5 MG PO (08:40)
[2024-01-21] MEDS: Methocarbamol 750 MG Tablet PO ×2 (08:41→21:26)
[2024-01-21] MEDS: Senna/Docusate Sodium 1 Tablet PO ×2 (08:42→21:32)
[2024-01-21] MEDS: Finasteride 5 MG Tablet PO (08:42)
[2024-01-21] MEDS: guaiFENesin 1,200 MG Tablet 1200 MG PO ×2 (08:42→21:27)
[2024-01-21] MEDS: Dofetilide 250 MCG Capsule PO ×2 (08:43→21:33)
[2024-01-21] MEDS: Cholecalciferol (VIT D3) 25 MCG TABLET (1,000 UNITS) PO (08:43)
[2024-01-21] MEDS: Metoprolol(XL)Succ 25 MG Tablet PO (08:45)
[2024-01-21] MEDS: 0.9% Saline Lock 10 ML Syringe IV (08:48)
--- NOTE | 2024-01-21 10:33 | NURSING ---
PT LEFT BY WHEEL CHAIR WITH DAUGHTER AT 1035 FOR APPOINTMENT.
--- NOTE | 2024-01-21 13:10 | MDS.RN ---
Pain interview for mds was completed today.
--- NOTE | 2024-01-21 13:39 | NURSING ---
PT RETURNED BACK TO FLOOR BY WHEEL CHAIR WITH DAUGHTER AT 1330. OVER NIGHT PULSE OX INFO FAXED TO PER DAUGHTERS REQUEST. ONLY ORDER IS FOR PT TO HAVE A SLEEP STUDY DONE AFTER DISCHARGE.
--- NOTE | 2024-01-21 14:25 | NURSING ---
Spoke with Dr. Ventura, asked about scheduling of cholangiogram. He said to schedule on Thursday01/26/24. Spoke with scheduling, cholangiogram scheduled for 01/25 @0900. Resident, , and dtr Lala updated.
[2024-01-21] MEDS: Tamsulosin HCl 0.4 MG Capsule 0.8 MG PO (17:25)
[2024-01-21] MEDS: LORazepam 0.5 MG Tablet PO (21:24)
[2024-01-21] MEDS: Atorvastatin Calcium 10 MG Tablet PO (21:26)
[2024-01-21] MEDS: Mirtazapine 15 MG Tablet 7.5 MG PO (21:27)
[2024-01-21] MEDS: Ezetimibe 10 MG Tablet PO (21:29)
[2024-01-22] VITALS (10 sets, daily range): BP systolic 101–114; BP diastolic 61–62; PULSE 68–88; RESP 14–16; TEMP 36.6; O2SAT 89–98
[2024-01-22] MEDS: Pantoprazole Sodium 40 MG Tablet PO (05:59)
[2024-01-22 06:00] LABS: Absolute Lymphocyte Count 1.32 X10^3/uL (0.83-4.51); Basophil% 1.9 % (0-1); Eosinophil# 0.93 X10^3/uL; Eosinophils% 8.8 % (0-5); Hematocrit 35.3 % (40-54); Hemoglobin 11.4 g/dL (13.0-16.5); Lymphocyte # 1.32 X10^3/ul (0.83-4.51); Lymphocyte % 12.5 % (19-41); Mean Corp Hgb Conc 32.3 g/dL (32-36); Mean Corpuscular Hgb 30.2 pg (27.0-32.0); Mean Corpuscular Volume 93.6 fL (80-94); Mean Platelet Vol. 9.8 fl (6.2-12.0); Monocyte# 1.02 X10^3/uL; Monocyte% 9.7 % (0-10); NRBC Flagged by Analyzer 0 % (0-5); Neutrophil # 6.95 X10^3/uL (2.7-7.7); Neutrophil % 66.1 % (47-70); Platelet Count 276 K/mm3 (150-450); RBC Distribution Width CV 14.7 % (11.6-14.6); RBC Distribution Width SD 51.6 fl (35.1-43.9); Red Blood Count 3.77 M/mm3 (4.6-6.2); White Blood Count 10.5 K/mm3 (4.4-11.0)
[2024-01-22] MEDS: Ensure Plus High Protein 120 ML LIQUID PO ×4 (06:00→21:04)
[2024-01-22 06:45] LABS: Anion Gap 5 (5-15); BUN 16 mg/dL (7-18); BUN/Creat Ratio 23.4 RATIO (10-20); Calcium,Total 9.1 mg/dL (8.5-10.1); Chloride 108 mmol/L (98-107); Creatinine, Serum 0.68 mg/dL (0.70-1.30); EST Glomerular Filtration Rate 117 mL/min (>60); Est Glom Filt Rate - Afr Amer 141 mL/min (>60); Estimated Creatinine Clearance 65.31 ml/min; Glucose 106 mg/dL (74-106); Potassium 3.7 mmol/L (3.5-5.1); Sodium Level 138 mmol/L (136-145)
[2024-01-22] MEDS: Budesonide Respules 0.5 MG/2 ML AMPUL.NEB. INHALATION ×2 (07:00→20:10)
[2024-01-22] MEDS: levalbuterol HCL 0.63 MG/3 ML VIAL.NEB INHALATION ×2 (07:00→20:10)
[2024-01-22 08:03] LABS: Vitamin D,25 Hydroxy 42.7 ng/mL
[2024-01-22] MEDS: Lactobacillis Acidophilus 1 CAP PO ×3 (09:28→17:38)
[2024-01-22] MEDS: Arthritis Pain Compound 60 CLICK TUBE TOPICAL ×2 (09:28→21:03)
[2024-01-22] MEDS: Umeclidinium Brm/Vilanterol 62.5-25 mcg Inh 1 PUFF INHALATION (09:28)
[2024-01-22] MEDS: Menthol/Lanolin/Calamine/Znox 113 GM Tube 1 APPLIC TOPICAL ×2 (09:29→21:03)
[2024-01-22] MEDS: DULoxetine Hcl 60 MG Capsule PO (09:29)
[2024-01-22] MEDS: Multivitamin (Healthy Eyes) Capsule 1 CAP PO (09:32)
[2024-01-22] MEDS: APIXABAN 5 MG TABLET PO ×2 (09:32→21:03)
[2024-01-22] MEDS: Methocarbamol 750 MG Tablet PO ×2 (09:33→21:04)
[2024-01-22] MEDS: guaiFENesin 1,200 MG Tablet 1200 MG PO ×2 (09:33→21:05)
[2024-01-22] MEDS: Nystatin Powder 15gm Bottle 1 APPLIC TOPICAL ×2 (09:33→21:06)
[2024-01-22] MEDS: Empagliflozin 25 MG Tablet 12.5 MG PO (09:33)
[2024-01-22] MEDS: Finasteride 5 MG Tablet PO (09:34)
[2024-01-22] MEDS: Dofetilide 250 MCG Capsule PO ×2 (09:34→21:07)
[2024-01-22] MEDS: Cholecalciferol (VIT D3) 25 MCG TABLET (1,000 UNITS) PO (09:35)
[2024-01-22] MEDS: Metoprolol(XL)Succ 25 MG Tablet PO (09:36)
[2024-01-22] MEDS: Senna/Docusate Sodium 1 Tablet PO (09:44)
[2024-01-22] MEDS: 0.9% Saline Lock 10 ML Syringe IV (09:52)
--- NOTE | 2024-01-22 12:52 | CASEMGMT ---
Social Work Insurance issued LCD 01/25, DC 01/26. SW spoke with pt to inform of DC date, explained appeal rights. Pt is agreeable to DC home. will be home and dtr is moving into temporarily to assist with pt. Pt is agreeable to [facility] and prefers N whom pt used prior. Pt has no DME needs. SW spoke with pt's and she will also notify dtr. Dtr will transport. TAISHA sent referral to [facility] via [employer] for PT/OT/SN. Plan: DC home with and dtr 01/26, [facility] PT/OT/SN Peyton Simmons, MACARIO PICKERINGW
--- NOTE | 2024-01-22 14:27 | DS.PCM_ITS ---
Providers Date of Admission: 01/15/24 Primary Care Physician: Dr. Arnulfo Rascon MD Reason For Visit: RIGHT PNEUMOTHORAX Diagnosis Discharge Diagnosis (1) Debility: Status: Acute Code(s): R53.81 - Other malaise (2) Acute respiratory failure with hypoxia: Status: Resolved Code(s): J96.01 - Acute respiratory failure with hypoxia (3) Pneumothorax after biopsy: Status: Acute Code(s): J95.811 - Postprocedural pneumothorax (4) Acalculous cholecystitis: Status: Acute Code(s): K81.9 - Cholecystitis, unspecified (5) Abscess of lung: Status: Acute Code(s): J85.2 - Abscess of lung without pneumonia (6) VRE bacteremia: Status: Resolved Code(s): R78.81 - Bacteremia; B95.2 - Enterococcus as the cause of diseases classified elsewhere; Z16.21 - Resistance to vancomycin (7) Emphysema of lung: Status: Acute Code(s): J43.9 - Emphysema, unspecified (8) Atrial fibrillation: Status: Acute Code(s): I48.91 - Unspecified atrial fibrillation (9) Hypothyroidism: Status: Acute Code(s): E03.9 - Hypothyroidism, unspecified (10) Depression: Status: Acute Code(s): F32.A - Depression, unspecified (11) (HFpEF) heart failure with preserved ejection fraction: Status: Acute Code(s): I50.30 - Unspecified diastolic (congestive) heart failure (12) BPH (benign prostatic hyperplasia): Status: Acute Code(s): N40.0 - Benign prostatic hyperplasia without lower urinary tract symptoms (13) Anxiety: Status: Acute Code(s): F41.9 - Anxiety disorder, unspecified (14) Muscle spasm: Status: Acute Code(s): M62.838 - Other muscle spasm (15) Orthostatic hypotension: Status: Acute Code(s): I95.1 - Orthostatic hypotension (16) Macular degeneration: Status: Acute Code(s): H35.30 - Unspecified macular degeneration (17) Coronary artery disease: Status: Acute Code(s): I25.10 - Atherosclerotic heart disease of [place] coronary artery without angina pectoris (18) GERD (gastroesophageal reflux disease): Status: Acute Code(s): K21.9 - Gastro-esophageal reflux disease without esophagitis Plan 83 year old male with below past medical history hospitalized for acute respiratory failure with hypoxia 2/2 to pneumothorax after lung biopsy, resolved with chest tube, admitted to TCU with debility, here for rehabilitation, strengthening, prior to discharge home with . * Debility - PT/OT. * Pain - Tylenol 1000mg q6 prn pain (1-3), Oxycodone 5mg q6 prn pain (1-10). * Bowel - Senna/colace 1 tablet bid. * Adult immunization - Administer pneumonia vaccine, covid vaccine, flu vaccine as appropriate. * DVT prophylaxis - on Eliquis. * Atrial fibrillation - Metoprolol succinate 25mg daily, Tikosyn 250mg bid, Eliquis 5mg bid. * Hyperlipidemia - Atorvastatin 10mg qhs, Zetia 10mg daily. * COPD - Budesonide 0.5mg bid, Levalbuterol 0.63 tid, Incruse 1 puff daily. * HFpEF - Metoprolol succinate 25mg daily, Jardiance 12.5mg daily, Bumex 1mg mwf prn. * Vitamin D deficiency - D3 25mcg daily. * Depression - Duloxetine 60mg daily, stable chronic machine long goods helper use, GDR not recommended. * BPH - Finasteride 5mg daily, Tamsulosin 0.8mg daily. * Congestion - Mucinex 1200mg bid. * GI prophylaxis - Lactobacillus 1 cap tidcm. * Anxiety - Lorazepam 0.5mg qhs, stable chronic long-term use, GDR not recommended. * Muscle spasm - Robaxin 750mg bid. * Orthostatic hypotension - Midodrine 5mg tid. * Macular degeneration - Healthy Eyes 1 cap daily. * CAD - Metoprolol succinate 25mg daily, Eliquis 5mg bid, TG 0.4mg sl qm prn. * GERD - Pantoprazole 40mg daily, Carafate 1gm bid. Medications at Discharge Home Medications rosuvastatin 5 mg tablet (Crestor) 5 mg PO QDAY cholesterol 07/04/17 cholecalciferol (vitamin D3) 25 mcg (1,000 unit) tablet 25 mcg PO DAILY supplement 05/22/21 metoprolol succinate 25 mg tablet,extended release 24 hr 25 mg PO DAILY AFIB 06/27/21 nitroglycerin 0.4 mg sublingual tablet 0.4 mg sublingual Q5M PRN CP 06/27/21 dofetilide 250 mcg capsule 250 mcg PO Q12H afib 03/29/23 duloxetine 60 mg capsule,delayed release See Rx Instructions PO DAILY mood 03/29/23 empagliflozin 25 mg tablet (Jardiance) 12.5 mg PO DAILY heart 03/29/23 finasteride 5 mg tablet 5 mg PO DAILY bph 03/29/23 levalbuterol HCl 0.63 mg/3 mL solution for nebulization 0.63 mg inhalation TID copd 03/29/23 midodrine 5 mg tablet 5 mg PO 1000,1400,1800 blood pressure 03/29/23 vit C 250 mg-vit E 200 unit-zinc ox 12.5 ab-widhvs-hytblz-zeax capsule (ICaps AREDS2) 1 cap PO DAILY supplement 03/29/23 budesonide 0.5 mg/2 mL suspension for nebulization 0.5 mg (2 mL) inhalation BID.RT Asthma #0 mL 04/01/23 lorazepam 0.5 mg tablet 0.5 mg PO QHS Anxiety #5 tabs 04/01/23 apixaban 5 mg tablet (Eliquis) 5 mg PO BID BLOOD THINNER #0 tabs 04/10/23 ezetimibe 10 mg tablet 10 mg PO QHS cholesterol 10/24/23 guaifenesin 1,200 mg tablet, extended release 12 hr (Mucinex) 1,200 mg PO BID mucus relief 10/24/23 pantoprazole 40 mg tablet,delayed release 40 mg PO DAILY GERD 10/24/23 tiotropium 2.5 mcg-olodaterol 2.5 mcg/actuation mist for inhalation (Stiolto Respimat) 2 inh inhalation DAILY COPD 10/24/23 methocarbamol 750 mg tablet 750 mg PO BID Muscle Relaxer 11/20/23 sucralfate 100 mg/mL oral suspension (Carafate) 1 g PO BID antacid 11/20/23 Lactobacillus acidophilus, bulgaricus 100 million cell granules packet (Floranex) 1 packet PO TIDCM supplement 12/23/23 tamsulosin 0.4 mg capsule 0.8 mg PO DINNER bph 12/23/23 bumetanide 0.5 mg tablet 1 mg PO MOWEFR PRN EDEMA 01/15/24 mirtazapine 15 mg tablet 7.5 mg (1/2 x 15 mg) PO QHS #0 tabs 01/22/24 Hospital Course Operations None Procedures - (Cholecystostomy tube.) Summary of Care Provided Minutes Spent on Discharge: 35 Hospital Course: 83 year old male with below past medical history hospitalized for acute respiratory failure with hypoxia 2/2 to pneumothorax after lung biopsy, resolved with chest tube, admitted to TCU with debility, here for rehabilitation, strengthening, prior to discharge home with . Discharge home with and daughter 01/27/2024, [facility] PT/OT/SN. Physical Exam Const alert General Appearance: cooperative HEENT normocephalic Eyes PERRL and EOMs intact bilaterally Neck supple, no JVD and no carotid bruits Resp normal respiratory effort, normal air movement and clear to auscultation bilaterally Cardio regular rate and regular rhythm GI normal to inspection, nondistended, normoactive bowel sounds, non-tender and non-distended GI Narrative: Right upper quadrant cholecystostomy tube draining dark green fluid. Extremity normal capillary refill General Extremity: Negative for edema Skin no rashes or lesions noted General Skin Exam: no breakdown Psych affect normal Appearance: appropriate Weight / BMI Weight Weight: 72.7 kg Body Mass Index (BMI) 24.3 ABG / Lab / Microbiology Data 01/22/24 05:16 01/22/24 05:16 Laboratory: Laboratory Results - last 24 hr 01/22/24 05:16: WBC 10.5, RBC 3.77 L, Hgb 11.4 L, Hct 35.3 L, MCV 93.6, MCH 30.2, MCHC 32.3, RDW Std Deviation 51.6 H, RDW Coeff of David 14.7 H, Plt Count 276, MPV 9.8, Immature Gran % (Auto) 1.000 H, Neut % (Auto) 66.1, Lymph % (Auto) 12.5 L, [place] % (Auto) 9.7, Eos % (Auto) 8.8 H, Baso % (Auto) 1.9 H, Absolute Neuts (auto) 7.0, Absolute Lymphs (auto) 1.32, Nucleated RBC % 0, Sodium 138, Potassium 3.7, Chloride 108 H, Carbon Dioxide 25.0, Anion Gap 5, BUN 16, C reatinine 0.68 L, Estim Creat Clear Calc 65.31, Est GFR (MDRD) Af Amer 141, Est GFR (MDRD) Non-Af 117, BUN/Creatinine Ratio 23.4 H, Glucose 106, Calcium 9.1, Vitamin D 25-Hydroxy 42.7 D/C Instructions Discharge Diet: No restrictions Discharge Activity: Return to Normal Activity, May Shower and Use Walker Weight Bearing Status: Weight bearing as tolerated Call your doctor if you observe: Fever of 101 or Higher, Inability to urinate, Inability to have a bowel movement, Shortness of breath, Dizziness, Fainting spells, Swelling in the ankles, Chest pain and Uncontrolled pain Additional Instructions: Discharge home with and daughter 01/27/2024, [facility] PT/OT/SN. Please Follow Up With: Cardiology Meaningful Use Info Meaningful Use Meaningful Use Diagnoses (Choose all that apply): None applicable Ischemic Stroke Statin Dosing Therapy Reference: STATIN DOSE THERAPY REFERENCE: * Patients > 75 years receive moderate or high dose statin therapy. * Patients 75 years or YOUNGER should receive HIGH intensity statin dose unless contraindicated. You will be required to document reason for non-treatment if statin daily dose does not meet guidelines. HIGH DOSE STATIN THERAPY DAILY Atorvastatin > than or = to 40 mg Rosuvastatin > than or = to 20 mg Amlodipine + Atorvastatin > than or = to 2.5/40 mg Ezetimibe + Simvastatin 10/80 mg Simvastatin 80mg Discharge Plan Admission Admit Date/Time: 01/15/24 18:35 Primary Reason for Your Visit: Debility. Attending Provider: Parrish Shah Chi Primary Care Provider: Arnulfo Rascon Instructions Additional Instructions / Restrictions: Discharge home with and daughter 01/27/2024, [facility] PT/OT/SN. Discharge Orders/Prescriptions Prescriptions: New mirtazapine 15 mg Tablet 7.5 mg PO QHS Qty: 0 0RF Continued rosuvastatin [Crestor] 5 mg tablet 5 mg PO QDAY metoprolol succinate 25 mg tablet extended release 24 hr 25 mg PO DAILY nitroglycerin 0.4 mg tablet, sublingual 0.4 mg sublingual Q5M PRN (Reason: CP) Rx Instructions: do not exceed 3 doses per episode dofetilide 250 mcg capsule 250 mcg PO Q12H Patient Comments: TAKE 1 CAPSULE BY MOUTH EVERY 12 HOURS midodrine 5 mg tablet 5 mg PO 1000,1400,1800 Patient Comments: Takes in the morning and evening and the afternoon dose is PRN if he needs it. Rx Instructions: HOLD if SBP >100 finasteride 5 mg tablet 5 mg PO DAILY Patient Comments: take 1 tablet by mouth once daily duloxetine 60 mg capsule,delayed release(DR/EC) See Rx Instructions PO DAILY Rx Instructions: 60 mg (2 caps) orally daily; Jardiance 25 mg tablet 12.5 mg PO DAILY levalbuterol HCl 0.63 mg/3 mL solution for nebulization 0.63 mg INHALATION TID Patient Comments: USE 1 VIAL 3 TIMES A DAY ICaps AREDS2 250 mg-200 unit -12.5 mg-1 mg capsule 1 cap PO DAILY lorazepam 0.5 mg Tablet 0.5 mg PO QHS Qty: 5 0RF budesonide 0.5 mg/2 mL Suspension For Nebulization 0.5 mg inhalation BID.RT Qty: 0 0RF Eliquis 5 mg Tablet 5 mg PO BID Qty: 0 0RF pantoprazole 40 mg tablet,delayed release (DR/EC) 40 mg PO DAILY Patient Comments: take 1 tablet by mouth twice a day take before meals Rx Instructions: Before meals ezetimibe 10 mg tablet 10 mg PO QHS guaifenesin [Mucinex] 1,200 mg tablet extended release 12hr 1,200 mg PO BID Stiolto Respimat 2.5-2.5 mcg/actuation mist 2 inh inhalation DAILY Lactobacillus acidoph-L.bulgar [Floranex] 100 million cell granules in packet 1 packet PO TIDCM tamsulosin 0.4 mg Capsule 0.8 mg PO DINNER methocarbamol 750 mg tablet 750 mg PO BID Rx Instructions: for neck pain sucralfate [Carafate] 100 mg/mL suspension 1 g PO BID bumetanide 0.5 mg Tablet 1 mg PO MOWEFR PRN (Reason: EDEMA) cholecalciferol (vitamin D3) 25 mcg (1,000 unit) tablet 25 mcg PO DAILY Discontinued cyanocobalamin (vitamin B-12) 1,000 mcg/mL kit 100 mcg IM QMONTH acetaminophen 500 mg Tablet 1,000 mg PO Q6H PRN PRN (Reason: Pain Score 1-3) Qty: 0 0RF oxycodone 5 mg capsule 5 mg PO Q6H PRN (Reason: pain) Referrals / Follow Up: Arnulfo Rascon MD [Primary Care Provider] - (daughter to set up this appointment) Disposition Disposition (needs filled in before D/C Order can be placed): Home Health Service
--- NOTE | 2024-01-22 15:24 | NURSING ---
RUQ DRAIN FLUSHING TEACHING DONE WITH PT DAUGHTER NA. DAUGHTER NEEDS TO START DOING TO SHOW STAFF NOW BEFORE D/C. CONTINUE TEACHING.
[2024-01-22] MEDS: Tamsulosin HCl 0.4 MG Capsule 0.8 MG PO (17:38)
[2024-01-22] MEDS: LORazepam 0.5 MG Tablet PO (21:02)
[2024-01-22] MEDS: Atorvastatin Calcium 10 MG Tablet PO (21:04)
[2024-01-22] MEDS: Mirtazapine 15 MG Tablet 7.5 MG PO (21:06)
[2024-01-22] MEDS: Ezetimibe 10 MG Tablet PO (21:08)
[2024-01-23] VITALS (8 sets, daily range): BP systolic 99–109; BP diastolic 51–63; PULSE 73–81; RESP 16; TEMP 36.2; O2SAT 97–98
[2024-01-23] MEDS: Ensure Plus High Protein 120 ML LIQUID PO ×4 (05:54→23:17)
[2024-01-23] MEDS: Pantoprazole Sodium 40 MG Tablet PO (05:54)
[2024-01-23] MEDS: Budesonide Respules 0.5 MG/2 ML AMPUL.NEB. INHALATION ×2 (06:45→19:55)
[2024-01-23] MEDS: levalbuterol HCL 0.63 MG/3 ML VIAL.NEB INHALATION ×3 (06:45→19:55)
[2024-01-23] MEDS: Umeclidinium Brm/Vilanterol 62.5-25 mcg Inh 1 PUFF INHALATION (10:06)
[2024-01-23] MEDS: Arthritis Pain Compound 60 CLICK TUBE TOPICAL ×2 (10:06→23:18)
[2024-01-23] MEDS: Lactobacillis Acidophilus 1 CAP PO ×3 (10:06→17:29)
[2024-01-23] MEDS: DULoxetine Hcl 60 MG Capsule PO (10:07)
[2024-01-23] MEDS: Methocarbamol 750 MG Tablet PO ×2 (10:07→23:20)
[2024-01-23] MEDS: APIXABAN 5 MG TABLET PO ×2 (10:07→23:20)
[2024-01-23] MEDS: Empagliflozin 25 MG Tablet 12.5 MG PO (10:07)
[2024-01-23] MEDS: Multivitamin (Healthy Eyes) Capsule 1 CAP PO (10:07)
[2024-01-23] MEDS: Senna/Docusate Sodium 1 Tablet PO ×2 (10:07→23:22)
[2024-01-23] MEDS: Finasteride 5 MG Tablet PO (10:07)
[2024-01-23] MEDS: Menthol/Lanolin/Calamine/Znox 113 GM Tube 1 APPLIC TOPICAL ×2 (10:08→23:19)
[2024-01-23] MEDS: Metoprolol(XL)Succ 25 MG Tablet PO (10:08)
[2024-01-23] MEDS: guaiFENesin 1,200 MG Tablet 1200 MG PO ×2 (10:08→23:20)
[2024-01-23] MEDS: Midodrine HCl 5 MG Tablet PO (10:08)
[2024-01-23] MEDS: Dofetilide 250 MCG Capsule PO ×2 (10:08→23:34)
[2024-01-23] MEDS: Cholecalciferol (VIT D3) 25 MCG TABLET (1,000 UNITS) PO (10:08)
[2024-01-23] MEDS: Nystatin Powder 15gm Bottle 1 APPLIC TOPICAL ×2 (10:14→23:20)
[2024-01-23] MEDS: 0.9% Saline Lock 10 ML Syringe IV (10:15)
[2024-01-23] MEDS: Tamsulosin HCl 0.4 MG Capsule 0.8 MG PO (17:28)
[2024-01-23] MEDS: LORazepam 0.5 MG Tablet PO (23:18)
[2024-01-23] MEDS: Atorvastatin Calcium 10 MG Tablet PO (23:20)
[2024-01-23] MEDS: Mirtazapine 15 MG Tablet 7.5 MG PO (23:21)
[2024-01-23] MEDS: Ezetimibe 10 MG Tablet PO (23:22)
[2024-01-24] MEDS: Pantoprazole Sodium 40 MG Tablet PO (06:18)
[2024-01-24] MEDS: Ensure Plus High Protein 120 ML LIQUID PO ×4 (06:18→21:53)
[2024-01-24 07:49] VITALS: BP 97/58; PULSE 77; TEMP 36.3; O2SAT 97
[2024-01-24] MEDS: 0.9% Saline Lock 10 ML Syringe IV ×2 (07:49→20:08)
[2024-01-24] MEDS: Umeclidinium Brm/Vilanterol 62.5-25 mcg Inh 1 PUFF INHALATION (07:54)
[2024-01-24] MEDS: Arthritis Pain Compound 60 CLICK TUBE TOPICAL ×2 (07:54→21:43)
[2024-01-24 07:55] VITALS: PULSE 77
[2024-01-24] MEDS: Finasteride 5 MG Tablet PO (07:55)
[2024-01-24] MEDS: Multivitamin (Healthy Eyes) Capsule 1 CAP PO (07:55)
[2024-01-24] MEDS: Empagliflozin 25 MG Tablet 12.5 MG PO (07:55)
[2024-01-24] MEDS: Methocarbamol 750 MG Tablet PO ×2 (07:55→21:48)
[2024-01-24] MEDS: Senna/Docusate Sodium 1 Tablet PO ×2 (07:55→21:50)
[2024-01-24] MEDS: Dofetilide 250 MCG Capsule PO ×2 (07:55→21:50)
[2024-01-24] MEDS: Lactobacillis Acidophilus 1 CAP PO ×3 (07:55→17:12)
[2024-01-24] MEDS: guaiFENesin 1,200 MG Tablet 1200 MG PO ×2 (07:55→21:48)
[2024-01-24] MEDS: Metoprolol(XL)Succ 25 MG Tablet PO (07:55)
[2024-01-24] MEDS: Cholecalciferol (VIT D3) 25 MCG TABLET (1,000 UNITS) PO (07:55)
[2024-01-24] MEDS: APIXABAN 5 MG TABLET PO ×2 (07:55→21:47)
[2024-01-24] MEDS: Midodrine HCl 5 MG Tablet PO (07:55)
[2024-01-24] MEDS: DULoxetine Hcl 60 MG Capsule PO (07:56)
[2024-01-24] MEDS: Nystatin Powder 15gm Bottle 1 APPLIC TOPICAL ×2 (07:56→21:49)
--- NOTE | 2024-01-24 08:01 | NURSING ---
gallo drain flushed 10cc per order, small amt of greenish color liquid in bag. pt eating brkfst, denies needs. picc flushed w/good blood return.
[2024-01-24] MEDS: Menthol/Lanolin/Calamine/Znox 113 GM Tube 1 APPLIC TOPICAL ×2 (08:05→21:46)
[2024-01-24 13:40] VITALS: PULSE 75; RESP 17; O2SAT 96
[2024-01-24] MEDS: levalbuterol HCL 0.63 MG/3 ML VIAL.NEB INHALATION ×2 (13:40→19:45)
[2024-01-24 17:10] VITALS: PULSE 72; RESP 18; O2SAT 95
[2024-01-24] MEDS: Tamsulosin HCl 0.4 MG Capsule 0.8 MG PO (17:11)
[2024-01-24 19:45] VITALS: PULSE 76; RESP 16; O2SAT 97
[2024-01-24] MEDS: Budesonide Respules 0.5 MG/2 ML AMPUL.NEB. INHALATION (19:45)
[2024-01-24] MEDS: LORazepam 0.5 MG Tablet PO (21:43)
[2024-01-24] MEDS: Atorvastatin Calcium 10 MG Tablet PO (21:48)
[2024-01-24] MEDS: Mirtazapine 15 MG Tablet 7.5 MG PO (21:49)
[2024-01-24] MEDS: Ezetimibe 10 MG Tablet PO (21:50)
[2024-01-24 21:57] VITALS: PULSE 72; O2SAT 95
[2024-01-25] VITALS (7 sets, daily range): BP systolic 94–109; BP diastolic 63–64; PULSE 71–82; RESP 8–18; TEMP 36; O2SAT 95–98
[2024-01-25] MEDS: Ensure Plus High Protein 120 ML LIQUID PO ×4 (06:05→22:09)
[2024-01-25] MEDS: Pantoprazole Sodium 40 MG Tablet PO (06:05)
[2024-01-25] MEDS: Acetaminophen 500 MG Tablet 1000 MG PO (06:10)
[2024-01-25] MEDS: Budesonide Respules 0.5 MG/2 ML AMPUL.NEB. INHALATION ×2 (07:35→19:50)
[2024-01-25] MEDS: levalbuterol HCL 0.63 MG/3 ML VIAL.NEB INHALATION ×3 (07:45→19:50)
--- NOTE | 2024-01-25 08:38 | NURSING ---
Metal Caster Note; MDS for 01/22/2024 Complete
--- NOTE | 2024-01-25 10:30 | NURSING ---
Cholecystostomy drain emptied and 80 ml of clear green/yellow bile emptied. 10ml flush of NS completed at this time.
[2024-01-25] MEDS: Arthritis Pain Compound 60 CLICK TUBE TOPICAL ×2 (10:32→22:09)
[2024-01-25] MEDS: Lactobacillis Acidophilus 1 CAP PO ×3 (10:32→17:41)
[2024-01-25] MEDS: Methocarbamol 750 MG Tablet PO ×2 (10:33→22:11)
[2024-01-25] MEDS: guaiFENesin 1,200 MG Tablet 1200 MG PO ×2 (10:33→22:10)
[2024-01-25] MEDS: Empagliflozin 25 MG Tablet 12.5 MG PO (10:33)
[2024-01-25] MEDS: Multivitamin (Healthy Eyes) Capsule 1 CAP PO (10:33)
[2024-01-25] MEDS: DULoxetine Hcl 60 MG Capsule PO (10:33)
[2024-01-25] MEDS: APIXABAN 5 MG TABLET PO ×2 (10:33→22:11)
[2024-01-25] MEDS: Midodrine HCl 5 MG Tablet PO (10:34)
[2024-01-25] MEDS: Dofetilide 250 MCG Capsule PO ×2 (10:34→22:10)
[2024-01-25] MEDS: Cholecalciferol (VIT D3) 25 MCG TABLET (1,000 UNITS) PO (10:34)
[2024-01-25] MEDS: Senna/Docusate Sodium 1 Tablet PO ×2 (10:34→22:10)
[2024-01-25] MEDS: Finasteride 5 MG Tablet PO (10:34)
[2024-01-25] MEDS: Metoprolol(XL)Succ 25 MG Tablet PO (10:36)
[2024-01-25] MEDS: Umeclidinium Brm/Vilanterol 62.5-25 mcg Inh 1 PUFF INHALATION (10:37)
[2024-01-25] MEDS: 0.9% Saline Lock 10 ML Syringe IV ×3 (10:39→20:38)
[2024-01-25] MEDS: Nystatin Powder 15gm Bottle 1 APPLIC TOPICAL ×2 (10:40→22:13)
[2024-01-25] MEDS: Menthol/Lanolin/Calamine/Znox 113 GM Tube 1 APPLIC TOPICAL ×2 (10:40→22:12)
[2024-01-25] MEDS: Tamsulosin HCl 0.4 MG Capsule 0.8 MG PO (17:41)
[2024-01-25] MEDS: LORazepam 0.5 MG Tablet PO (22:09)
[2024-01-25] MEDS: Ezetimibe 10 MG Tablet PO (22:10)
[2024-01-25] MEDS: Atorvastatin Calcium 10 MG Tablet PO (22:11)
[2024-01-25] MEDS: Mirtazapine 15 MG Tablet 7.5 MG PO (22:11)
[2024-01-26] VITALS (7 sets, daily range): BP systolic 105–116; BP diastolic 66–68; PULSE 72–84; RESP 18; TEMP 35.8; O2SAT 94–99; BMI 25.2
[2024-01-26] MEDS: Ensure Plus High Protein 120 ML LIQUID PO ×4 (05:58→22:20)
[2024-01-26] MEDS: Pantoprazole Sodium 40 MG Tablet PO (05:59)
[2024-01-26] MEDS: 0.9% Saline Lock 10 ML Syringe IV ×2 (06:04→22:23)
[2024-01-26] MEDS: Arthritis Pain Compound 60 CLICK TUBE TOPICAL ×2 (07:36→22:11)
[2024-01-26] MEDS: Lactobacillis Acidophilus 1 CAP PO ×3 (07:36→18:21)
[2024-01-26] MEDS: APIXABAN 5 MG TABLET PO ×2 (07:36→22:15)
[2024-01-26] MEDS: guaiFENesin 1,200 MG Tablet 1200 MG PO ×2 (07:37→22:15)
[2024-01-26] MEDS: Methocarbamol 750 MG Tablet PO ×2 (07:37→22:15)
[2024-01-26] MEDS: DULoxetine Hcl 60 MG Capsule PO (07:37)
[2024-01-26] MEDS: levalbuterol HCL 0.63 MG/3 ML VIAL.NEB INHALATION (07:37)
[2024-01-26] MEDS: Budesonide Respules 0.5 MG/2 ML AMPUL.NEB. INHALATION (07:37)
[2024-01-26] MEDS: Multivitamin (Healthy Eyes) Capsule 1 CAP PO (07:37)
[2024-01-26] MEDS: Metoprolol(XL)Succ 25 MG Tablet PO (07:38)
[2024-01-26] MEDS: Cholecalciferol (VIT D3) 25 MCG TABLET (1,000 UNITS) PO (07:38)
[2024-01-26] MEDS: Dofetilide 250 MCG Capsule PO ×2 (07:38→22:16)
[2024-01-26] MEDS: Senna/Docusate Sodium 1 Tablet PO ×2 (07:38→22:16)
[2024-01-26] MEDS: Nystatin Powder 15gm Bottle 1 APPLIC TOPICAL ×2 (07:39→22:17)
[2024-01-26] MEDS: Finasteride 5 MG Tablet PO (07:39)
[2024-01-26] MEDS: Empagliflozin 25 MG Tablet 12.5 MG PO (07:39)
[2024-01-26] MEDS: Menthol/Lanolin/Calamine/Znox 113 GM Tube 1 APPLIC TOPICAL ×2 (07:44→22:14)
--- NOTE | 2024-01-26 09:22 | NURSING ---
R' BACK TO UNIT FROM CHOLEANGIOGRAM.
--- NOTE | 2024-01-26 09:31 | NURSING ---
Addendum entered by Nabila Angeles 01/26/24 10:23: EMPTIED FOR 50cc CLEAR, GREEN/YELLOW BILE. Original Note: DRAIN FLUSHED WITH 10cc NS AT THIS TIME PER ORDER.
--- NOTE | 2024-01-26 10:53 | NURSING ---
Addendum entered by Lisa Rivers 01/26/24 11:31: Updated resident and dtr in room. Original Note: Called Dr. Cuenca's office, scheduled appt for follow-up next week, 02/03/[address] @[address]. [address] Cuenca won't be available until the end of the month, scheduled with another physician in his practice.
--- NOTE | 2024-01-26 12:33 | NURSING ---
Spoke with records, images will be sent to surgeon/Dr. Cuenca at the [facility] and report will be faxed over.
[2024-01-26] MEDS: Tamsulosin HCl 0.4 MG Capsule 0.8 MG PO (18:21)
[2024-01-26] MEDS: LORazepam 0.5 MG Tablet PO (22:10)
[2024-01-26] MEDS: Ezetimibe 10 MG Tablet PO (22:15)
[2024-01-26] MEDS: Atorvastatin Calcium 10 MG Tablet PO (22:17)
[2024-01-26] MEDS: Mirtazapine 15 MG Tablet 7.5 MG PO (22:17)
[2024-01-27 04:43] VITALS: PULSE 72; O2SAT 96
[2024-01-27] MEDS: Ensure Plus High Protein 120 ML LIQUID PO (06:17)
[2024-01-27] MEDS: Pantoprazole Sodium 40 MG Tablet PO (06:17)
[2024-01-27] MEDS: Acetaminophen 500 MG Tablet 1000 MG PO (06:20)
[2024-01-27] MEDS: levalbuterol HCL 0.63 MG/3 ML VIAL.NEB INHALATION (07:10)
[2024-01-27] MEDS: Budesonide Respules 0.5 MG/2 ML AMPUL.NEB. INHALATION (07:15)
--- NOTE | 2024-01-27 07:27 | MDS.RN ---
Information for the MDS was obtained from review of the clinical record, interview of resident, staff, and direct observation of resident?s care.
[2024-01-27 07:30] VITALS: PULSE 82; RESP 20
[2024-01-27] MEDS: Lactobacillis Acidophilus 1 CAP PO ×2 (09:00→12:47)
[2024-01-27] MEDS: Arthritis Pain Compound 60 CLICK TUBE TOPICAL (09:00)
[2024-01-27] MEDS: APIXABAN 5 MG TABLET PO (09:01)
[2024-01-27] MEDS: Empagliflozin 25 MG Tablet 12.5 MG PO (09:01)
[2024-01-27] MEDS: DULoxetine Hcl 60 MG Capsule PO (09:01)
[2024-01-27] MEDS: Multivitamin (Healthy Eyes) Capsule 1 CAP PO (09:01)
[2024-01-27] MEDS: Finasteride 5 MG Tablet PO (09:02)
[2024-01-27] MEDS: Midodrine HCl 5 MG Tablet PO (09:02)
[2024-01-27] MEDS: Methocarbamol 750 MG Tablet PO (09:02)
[2024-01-27] MEDS: guaiFENesin 1,200 MG Tablet 1200 MG PO (09:02)
[2024-01-27 09:03] VITALS: BP 94/53; PULSE 81
[2024-01-27] MEDS: Senna/Docusate Sodium 1 Tablet PO (09:03)
[2024-01-27] MEDS: Dofetilide 250 MCG Capsule PO (09:03)
[2024-01-27] MEDS: Cholecalciferol (VIT D3) 25 MCG TABLET (1,000 UNITS) PO (09:03)
[2024-01-27] MEDS: Metoprolol(XL)Succ 25 MG Tablet PO (09:03)
[2024-01-27] MEDS: Nystatin Powder 15gm Bottle 1 APPLIC TOPICAL (09:07)
[2024-01-27] MEDS: Menthol/Lanolin/Calamine/Znox 113 GM Tube 1 APPLIC TOPICAL (09:07)
[2024-01-27 12:30] VITALS: BP 110/64; PULSE 70; RESP 16; TEMP 36.2; O2SAT 96
--- NOTE | 2024-01-27 12:57 | NURSING ---
Daughter demonstrated how to flush gallo tube and how to empty bag and denied questions. Daughter also expressed that they got new gallo bags and asked how to change these. Showed her how to change bag before d/c. Daughter also states she has a box of saline flushes at home to flush the tube.
== END 2024-01-27 13:05 | disposition home health service (06) | DRG 178 ==
PROVIDERS: Admitting Provider Family Medicine Geriatric Medicine; PCP Family Medicine; Visit Provider Family Medicine Geriatric Medicine
DX: J85.2 Abscess of lung without pneumonia (principal); J95.811 Postprocedural pneumothorax; I50.42 Chronic combined systolic (congestive) and diastolic (congestive) heart failure; Z16.21 Resistance to vancomycin; B95.2 Enterococcus as the cause of diseases classified elsewhere; J43.9 Emphysema, unspecified; F32.A Depression, unspecified; I48.0 Paroxysmal atrial fibrillation; E55.9 Vitamin D deficiency, unspecified; F41.9 Anxiety disorder, unspecified; H35.30 Unspecified macular degeneration; K21.9 Gastro-esophageal reflux disease without esophagitis; I95.1 Orthostatic hypotension; M62.838 Other muscle spasm; E78.5 Hyperlipidemia, unspecified; I25.10 Atherosclerotic heart disease of native coronary artery without angina pectoris; Z87.891 Personal history of nicotine dependence; N40.0 Benign prostatic hyperplasia without lower urinary tract symptoms; Y84.8 Other medical procedures as the cause of abnormal reaction of the patient, or of later complication, without mention of misadventure at the time of the procedure; Z79.899 Other long term (current) drug therapy
CPT/HCPCS: 36415; 80048; 82306; 85025; 94640; 97110; 97116; 97162; 97167; 97530; 97535; 97802; 97803; A4216; J3420

== ENCOUNTER → 2024-01-26 | Outpatient (CLI) | payer MEDICARE, SELFPAY ==
--- NOTE | 2024-01-26 09:00 | RAD_ITS ---
PROCEDURE: Cholangiogram. DATE OF EXAMINATION: January 26, 2024. INDICATION: Male, 83 years old. Indwelling cholecystostomy tube. PHYSICIAN: Dr. Audrey Pascual FLUOROSCOPY TIME (if supplied): (36 seconds) minutes/seconds. 18 mGy. 4 images were submitted. 15 cc of Isovue-300 was injected into the indwelling cholecystostomy tube. There is opacification of the gallbladder. There is opacification of the intra and extrahepatic biliary ducts. Contrast is seen within the duodenum. No intraluminal filling defects are seen. RAD/Fluoroscopy 1 Hr or Less IMPRESSION: Unremarkable cholangiogram. Electronically Signed: Chris Ventura MD at 9:54 EST ,
== END | disposition home or self-care (01) ==
LOC: RAD 12:16
PROVIDERS: PCP Family Medicine; Referring Provider Family Medicine Geriatric Medicine; Visit Provider Family Medicine Geriatric Medicine
DX: K81.0 Acute cholecystitis (principal)
CPT/HCPCS: 76000

== ENCOUNTER 2024-03-01 19:25 | Inpatient (IN) | payer MEDICARE, SELFPAY ==
[2024-03-01 19:39] VITALS: BP 107/67; PULSE 80; RESP 18; TEMP 36.3; O2SAT 95; BMI 25.2
--- NOTE | 2024-03-01 19:47 | HP.PCM_ITS ---
HPI - General General Date of Admission: 03/01/24 Date of Service: 03/02/24 Chief Complaint: Here for rehabilitation. HPI Narrative ELIO DORAN, is a 83 Male who presents with followin02/24/2024 Admit to [facility]. 02/24/2024 Dr. Izquierdo performed laparoscopic converted to open cholecystectomy, gallbladder crumbled with black gallstones. 02/25/2024 Pain poorly controlled, passing minimal gas, no bowel movement. Intermittent nausea, no vomiting. Advance to regular diet. PT/OT. 02/26/2024 Surgical site tenderness with movement. Poor appetite. Midodrine PRN low blood pressure. Lovenox for DVT prophylaxis. 02/27/2024 Right side/flank pain, sitting up in chair, pain resolved. No bowel movement yet. Tylenol, Robaxin, Fentanyl, Oxycodone, pain management for pain. Remove ALEXANDER drain. Consider CT A/P if pain persists. Delirium protocol per geriatric consultation. 02/28/2024 RUQ pain worse with movement and cough. Bloated, small liquid bowel movement. Mobility poor. Atrial fibrillation with RVR last night. CT A/P showed large amount of stool. 02/29/2024 Pain improved with Toradol, feeling better. PT/OT SNF. 03/01/2024 Admit to TCU with debility, here for rehabilitation, strengthening, prior to discharge home with . [facility] Medical History Wears hearing aid in both ears Anemia Pancreatitis Former smoker CPAP (continuous positive airway pressure) dependence Sleep apnea On home oxygen therapy Congestive heart failure (CHF) TIA (transient ischemic attack) Pulmonary fibrosis Sinus node dysfunction HFrEF (heart failure with reduced ejection fraction) Chronic diarrhea Retroperitoneal hematoma Atherosclerotic heart disease of [place] coronary artery without angina pectoris Obstructive sleep apnea Hyperlipidemia SVT (supraventricular tachycardia) GERD (gastroesophageal reflux disease) COPD (chronic obstructive pulmonary disease) BPH (benign prostatic hyperplasia) Paroxysmal atrial fibrillation Home Medications ?Medication ?Instructions ?Recorded ?Last Taken ?Type rosuvastatin 5 mg tablet (Crestor) 5 mg PO QDAY cholesterol 07/04/17 10/24/23 History cholecalciferol (vitamin D3) 25 5,000 unit PO DAILY supplement 05/22/21 10/24/23 History mcg (1,000 unit) tablet metoprolol succinate 25 mg 25 mg PO DAILY AFIB 06/27/21 12/12/23 History tablet,extended release 24 hr nitroglycerin 0.4 mg sublingual 0.4 mg sublingual Q5M PRN CP 06/27/21 Unknown History tablet dofetilide 250 mcg capsule 250 mcg PO Q12H afib 03/29/23 12/12/23 History duloxetine 60 mg capsule,delayed See Rx Instructions PO DAILY mood 03/29/23 10/24/23 History release empagliflozin 25 mg tablet 12.5 mg PO DAILY heart 03/29/23 10/24/23 History (Jardiance) finasteride 5 mg tablet 5 mg PO DAILY bph 03/29/23 10/24/23 History levalbuterol HCl 0.63 mg/3 mL 0.63 mg inhalation TID copd 03/29/23 10/24/23 History solution for nebulization midodrine 5 mg tablet 5 mg PO 1000,1400,1800 blood 03/29/23 10/24/23 History pressure vit C 250 mg-vit E 200 unit-zinc 1 cap PO DAILY supplement 03/29/23 10/24/23 History ox 12.5 hu-[id number]-[id number] capsule (ICaps AREDS2) lorazepam 0.5 mg tablet 0.5 mg PO QHS Anxiety #5 tabs 04/01/23 10/23/23 Rx apixaban 5 mg tablet (Eliquis) 5 mg PO BID BLOOD THINNER #0 tabs 04/10/23 01/11/24 08:00 Rx ezetimibe 10 mg tablet 10 mg PO QHS cholesterol 10/24/23 Unknown History guaifenesin 1,200 mg tablet, 1,200 mg PO BID mucus relief 10/24/23 Unknown History extended release 12 hr (Mucinex) pantoprazole 40 mg tablet,delayed 40 mg PO DAILY GERD 10/24/23 Unknown History release tiotropium 2.5 mcg-olodaterol 2.5 2 inh inhalation DAILY COPD 10/24/23 Unknown History mcg/actuation mist for inhalation (Stiolto Respimat) methocarbamol 750 mg tablet 750 mg PO BID Muscle Relaxer 11/20/23 Unknown History sucralfate 100 mg/mL oral 1 g PO BID antacid 11/20/23 01/15/24 18:00 History suspension (Carafate) Lactobacillus acidophilus, 1 packet PO TIDCM supplement 12/23/23 Unknown History bulgaricus 100 million cell granules packet (Floranex) tamsulosin 0.4 mg capsule 0.8 mg PO DINNER bph 12/23/23 Unknown History bumetanide 0.5 mg tablet 1 mg PO MOWEFR PRN EDEMA 01/15/24 Unknown History mirtazapine 15 mg tablet 7.5 mg (1/2 x 15 mg) PO QHS #0 tabs 01/22/24 Unknown Rx mirtazapine 15 mg tablet 15 mg PO QHS #30 tabs 01/27/24 Unknown Rx acetaminophen 500 mg tablet 1,000 mg PO Q8 pain 03/01/24 Unknown History budesonide 0.5 mg/2 mL suspension 0.5 mg inhalation DAILY Asthma 03/01/24 Unknown History for nebulization econazole 1 % topical cream 1 applic topical DAILY PRN fungal 03/01/24 Unknown History cream ketoconazole 2 % topical cream 1 applic topical DAILY PRN fungal 03/01/24 Unknown History cream lidocaine 4 % topical patch 2 patch topical DAILY pain 03/01/24 Unknown History oxycodone 5 mg tablet 5 mg PO Q8H PRN pain 03/01/24 Unknown History polyethylene glycol 3350 17 17 g PO DAILY laxative 03/01/24 Unknown History gram/dose oral powder sennosides 8.6 mg-docusate sodium 2 tab-cap PO BID stool softener 03/01/24 Unknown History 50 mg tablet (Senna-S) Allergy/AdvReac Type Severity Reaction Status Date / Time tramadol Allergy Unknown PT UNSURE Verified 01/13/24 09:44 OF REACTION clindamycin AdvReac Intermediate Rash Verified 01/13/24 09:44 terbinafine AdvReac Intermediate Rash Verified 01/13/24 09:44 Family History Mother , Age 64 from Emphysema COPD (chronic obstructive pulmonary disease) Blood disorder Father No problems noted. Surgical History History of cholecystectomy S/P ablation of atrial fibrillation History of left heart catheterization (05/27/21) History of tonsillectomy History of ankle surgery History of back surgery History of appendectomy History of inguinal hernia repair History of umbilical hernia repair Social History household members: spouse housing: house Smoking Status: Former smoker how long ago did patient quit smokin years ago alcohol intake: current alcohol intake frequency: holidays/special occasions only substance use type: does not use caffeine: Yes Type: coffee Number of servings: 2 ROS Constitutional Constitutional: Reports weakness; Denies chills, fever(s) or weight gain ENT HEENT: Denies headache(s), nasal congestion or nasal discharge Cardiovascular Cardiovascular: Denies chest pain or palpitations Respiratory/Chest Respiratory/Chest: Denies cough, excessive phlegm production or shortness of breath with exertion Gastrointestinal Gastrointestinal: Denies abdominal pain, nausea or vomiting Genitourinary Genitourinary: Denies dysuria Musculoskeletal Musculoskeletal: Denies joint pain or joint swelling Integumentary Integumentary: Denies rash or wounds Neurologic Neurologic: Denies focal weakness, numbness or tingling Psychiatric Psychiatric: Denies anxiety, auditory hallucinations, depression, homicidal ideation or suicidal ideation Vital Signs Vital Signs Vital Signs: Weight Weight: 75.432 kg Body Mass Index (BMI) 25.2 Physical Exam Const alert General Appearance: cooperative HEENT normocephalic Eyes PERRL and EOMs intact bilaterally Neck supple, no JVD and no carotid bruits Resp normal respiratory effort, normal air movement and clear to auscultation bilaterally Cardio regular rate and regular rhythm GI normal to inspection, nondistended, normoactive bowel sounds, non-tender and non-distended Extremity normal capillary refill General Extremity: Negative for edema Skin no rashes or lesions noted General Skin Exam: no breakdown Psych affect normal Appearance: appropriate Results Lab / Micro Data 03/02/24 05:26 03/02/24 05:26 Assessment & Plan Assessment/Plan (1) Debility: (2) Acalculous cholecystitis: (3) Status post cholecystectomy: (4) Atrial fibrillation: (5) Hyperlipidemia: (6) COPD (chronic obstructive pulmonary disease): (7) (HFpEF) heart failure with preserved ejection fraction: (8) Vitamin D deficiency: (9) Depression: (10) BPH (benign prostatic hyperplasia): (11) Anxiety: (12) Muscle spasm: (13) Orthostatic hypotension: (14) Macular degeneration: (15) Coronary artery disease: (16) GERD (gastroesophageal reflux disease): PLAN: Plan 83 year old male with below past medical history hospitalized for laparoscopic converted to open cholecystectomy, postoperative course complicated by constipation, atrial fibrillation with rapid ventricular response, admitted to TCU with debility, here for rehabilitation, strengthening, prior to discharge home with . * Debility - PT/OT. * Pain - Tylenol 1000mg q6 prn pain (1-5), Oxycodone 5mg q4 prn pain (6-10), Lidoderm patch 2 patches topical daily. * Bowel - Miralax 17gm daily, Senna/colace 2 tablets bid. * Adult immunization - Administer pneumonia vaccine, covid vaccine, flu vaccine as appropriate. * DVT prophylaxis - Eliquis held 2/2 hemoptysis. * Atrial fibrillation - Metoprolol succinate 25mg daily, Tikosyn 250mg q12h, Eliquis 5mg bid held 2/2 hemoptysis. * Hyperlipidemia - Atorvastatin 10mg qhs, Zetia 10mg daily. * COPD - Budesonide 05mg inhaled daily, Levalbuterol 0.63mg tid, Anoro 1 puff daily. * Vitamin D deficiency - D3 125mcg daily. 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 * Tinea Corporis - Ketoconazole tpical daily prn. * HFpEF - Metoprolol succinate 25mg daily, Jardiance 12.5mg daily. * BPH - Finasteride 5mg daily, Tamsulosin 0.8mg daily. * Congestion - Mucinex 1200mg bid. 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 * Muscle spasm - Robaxin 750mg bid. * Orthostatic hypotension - Midodrine 5mg tid. * Macular degeneration - Healthy Eyes 1 capsule daily. * Coronary artery disease - Metoprolol succinate 25mg daily, Jardiance 12.5mg daily, NTG 0.4mg sl q5m prn. * GERD - Pantoprazole 40mg daily, Sucralfate 1gm bidac. * Hemoptysis - Hold Eliquis, order CTA chest, history left lung abscess.
--- NOTE | 2024-03-01 21:16 | NURSING ---
Spoke with patient's daughter at nurses station to go over medications, orders, concerns, etc. Dr. Shah consulted via telephone regarding these concerns. Per Dr. Shah, OK to DC fungal creams, and new orders for 25mcg Vitamin D3 PO Daily, 7.5mg Remeron PO QHS, and hold eliquis for 3 days d/t low hemoglobin and patient's report of coughing up small amounts of blood post-procedure. Telephone orders read back and verified.
[2024-03-01] MEDS: oxyCODONE 5 MG Tablet PO (22:42)
[2024-03-01] MEDS: Tamsulosin HCl 0.4 MG Capsule 0.8 MG PO (22:43)
[2024-03-01] MEDS: LORazepam 0.5 MG Tablet PO (22:43)
[2024-03-01] MEDS: Senna/Docusate Sodium 1 Tablet 2 TABLET PO (22:44)
[2024-03-01] MEDS: Atorvastatin Calcium 10 MG Tablet PO (22:45)
[2024-03-01] MEDS: Methocarbamol 750 MG Tablet PO (22:45)
[2024-03-01] MEDS: guaiFENesin 1,200 MG Tablet 1200 MG PO (22:45)
[2024-03-01] MEDS: Mirtazapine 15 MG Tablet 7.5 MG PO (22:46)
[2024-03-01] MEDS: Dofetilide 250 MCG Capsule PO (22:47)
[2024-03-01] MEDS: Ezetimibe 10 MG Tablet PO (22:47)
[2024-03-01 23:15] VITALS: BMI 25.2
[2024-03-02] VITALS (10 sets, daily range): BP systolic 87–95; BP diastolic 46–58; PULSE 73–93; RESP 16–19; TEMP 36.3; O2SAT 92–93
[2024-03-02 06:23] LABS: Absolute Lymphocyte Count 1.27 X10^3/uL (0.83-4.51); Absolute Neutrophil Count 6.7 X10^3/uL (2.0-7.7); Basophil# 0.09 X10^3/uL; Basophil% 0.9 % (0-1); Eosinophil# 0.69 X10^3/uL; Hematocrit 30.4 % (40-54); Hemoglobin 9.5 g/dL (13.0-16.5); Lymphocyte # 1.27 X10^3/ul (0.83-4.51); Lymphocyte % 12.8 % (19-41); Mean Corp Hgb Conc 31.3 g/dL (32-36); Mean Corpuscular Hgb 29.1 pg (27.0-32.0); Mean Platelet Vol. 9.3 fl (6.2-12.0); Monocyte# 1.02 X10^3/uL; Monocyte% 10.3 % (0-10); NRBC Flagged by Analyzer 0 % (0-5); Neutrophil % 67.5 % (47-70); Platelet Count 315 K/mm3 (150-450); RBC Distribution Width CV 14.5 % (11.6-14.6); RBC Distribution Width SD 49.5 fl (35.1-43.9); Red Blood Count 3.27 M/mm3 (4.6-6.2); White Blood Count 9.9 K/mm3 (4.4-11.0)
[2024-03-02] MEDS: Pantoprazole Sodium 40 MG Tablet PO (06:33)
[2024-03-02] MEDS: Sucralfate 1 GM Tablet PO ×2 (06:33→16:54)
[2024-03-02] MEDS: oxyCODONE 5 MG Tablet PO ×3 (06:38→22:56)
[2024-03-02 06:47] LABS: Anion Gap 5 (5-15); BUN 12 mg/dL (7-18); BUN/Creat Ratio 16.2 RATIO (10-20); Calcium,Total 8.9 mg/dL (8.5-10.1); Chloride 105 mmol/L (98-107); Creatinine, Serum 0.74 mg/dL (0.70-1.30); EST Glomerular Filtration Rate 107 mL/min (>60); Est Glom Filt Rate - Afr Amer 129 mL/min (>60); Estimated Creatinine Clearance 65.31 ml/min; Glucose 113 mg/dL (74-106); Potassium 3.7 mmol/L (3.5-5.1); Sodium Level 137 mmol/L (136-145)
[2024-03-02] MEDS: Budesonide Respules 0.5 MG/2 ML AMPUL.NEB. INHALATION (07:10)
[2024-03-02] MEDS: levalbuterol HCL 0.63 MG/3 ML VIAL.NEB INHALATION ×3 (07:25→19:20)
[2024-03-02] MEDS: Multivitamin (Healthy Eyes) Capsule 1 CAP PO (09:14)
[2024-03-02] MEDS: Empagliflozin 25 MG Tablet 12.5 MG PO (09:15)
[2024-03-02] MEDS: DULoxetine Hcl 60 MG Capsule 120 MG PO (09:15)
[2024-03-02] MEDS: Cholecalciferol (VIT D3) 25 MCG TABLET (1,000 UNITS) PO (09:16)
[2024-03-02] MEDS: Lidocaine 5% Patch 2 PATCH TOPICAL (09:17)
[2024-03-02] MEDS: Methocarbamol 750 MG Tablet PO ×2 (09:17→22:47)
[2024-03-02] MEDS: Polyethylene Glycol 3350 17 GM PACKET PO (09:17)
[2024-03-02] MEDS: guaiFENesin 1,200 MG Tablet 1200 MG PO ×2 (09:18→22:45)
[2024-03-02] MEDS: Midodrine HCl 5 MG Tablet PO ×3 (09:18→18:56)
[2024-03-02] MEDS: Finasteride 5 MG Tablet PO (09:18)
[2024-03-02] MEDS: Metoprolol(XL)Succ 25 MG Tablet PO (09:19)
[2024-03-02] MEDS: Dofetilide 250 MCG Capsule PO ×2 (09:19→22:48)
[2024-03-02] MEDS: Senna/Docusate Sodium 1 Tablet 2 TABLET PO ×2 (09:19→22:45)
[2024-03-02] MEDS: Umeclidinium Brm/Vilanterol 62.5-25 mcg Inh 1 PUFF INHALATION (09:20)
[2024-03-02] MEDS: Menthol/Lanolin/Calamine/Znox 113 GM Tube 1 APPLIC TOPICAL ×2 (09:20→22:49)
[2024-03-02] MEDS: Nystatin Powder 15gm Bottle 1 APPLIC TOPICAL ×2 (09:22→22:48)
[2024-03-02] MEDS: Arthritis Pain Compound 60 CLICK TUBE TOPICAL ×2 (09:30→22:48)
[2024-03-02] MEDS: Tuberculin,Purif.prot.deriv. 50 TU/ML Vial 0.1 ML ID (09:31)
--- NOTE | 2024-03-02 11:21 | NURSING ---
Chest CTA with contrast ordered for hemoptysis. Called insurance for pre-auth, no auth needed for this procedure code.
--- NOTE | 2024-03-02 11:25 | NURSING ---
pt was having hemoptysis, dr frederick notified by nursing this AM, new order for CTA w/contrast of chest.
--- NOTE | 2024-03-02 11:25 | NURSING ---
patient daughter requesting CT scan of chest to check chronic abscess lung, dr frederick updated, new order for CTA of chest w/contrast.
--- NOTE | 2024-03-02 11:55 | NURSING ---
Disability Advocate Note; Activity Asset: Jer Gandhi has returned to [facility] for [facility] and remains independent in his choice of daily activities. He still prefers to be called Skip. His family will visit daily and bring him items he may need. Mina enjoys reading the news paper, watching tv and visits with his family and religion family and friends. Staff will remind him of weekly activities and respect his right to say no.
[2024-03-02] MEDS: 0.9% Saline Lock 10 ML Syringe IV ×2 (12:03→22:53)
--- NOTE | 2024-03-02 13:08 | NURSING ---
Addendum entered by Jasmyne Young 03/02/24 15:49: daughter would like Dr Shah not to mention new nodule to pt and does not want treatment at this time. At this point she just wants to get him stronger to go home, she doesnt feel like treating him now is good for his mental health. will leave message for Dr Shah Original Note: pt off unit to CT scan at this time
--- NOTE | 2024-03-02 14:45 | PCM.PN.DRR ---
Documented by User: Nydia Kulkarni 03/02/24 15:03 TCU RX Drug Regimen Review Subjective/Objective Subjective/Objective Subjective: TCU Admission. 83 YOM hospitalized for laparoscopic converted to open cholecystectomy, postoperative course complicated by constipation, atrial fibrillation with rapid ventricular response. Admitted to TCU with debility for strengthening and rehabilitation. Objective: Allergies tramadol Allergy (Unknown, Verified 01/13/24 09:44) PT UNSURE OF REACTION pt and daughter unsure of reaction clindamycin Adverse Reaction (Intermediate, Verified 01/13/24 09:44) Rash terbinafine Adverse Reaction (Intermediate, Verified 01/13/24 09:44) Rash Current Medications Generic Name Dose Route Start Last Admin Trade Name Freq PRN Reason Stop Dose Admin Acetaminophen 1,000 mg 03/01/24 20:36 Acetaminophen 500 Mg Tablet PO Q6H PRN PRN Pain Score 1-5 Apixaban 5 mg 03/01/24 22:00 Apixaban 5 Mg Tablet PO BID GIOVANNI Atorvastatin Calcium 10 mg 03/01/24 22:00 03/01/24 22:45 Atorvastatin Calcium 10 Mg Tablet PO 10 mg QHS GIOVANNI Administration Budesonide 0.5 mg 03/02/24 10:00 03/02/24 07:10 Budesonide Respules 0.5 Mg/2 Ml Ampul.Neb. INHALATION 0.5 mg DAILY.RT GIOVANNI Administration Calamine/Phenol 1 applic 03/01/24 22:00 03/02/24 09:20 Menthol/Lanolin/Calamine/Znox 113 Gm Tube TOPICAL 1 applic BID GIOVANNI Administration Protocol Cholecalciferol 25 mcg 03/02/24 08:00 03/02/24 09:16 Cholecalciferol (Vit D3) 25 Mcg Tablet (1,000 Units) PO 25 mcg DAILYCM GIOVANNI Administration Compound Med 3 click 03/02/24 10:00 03/02/24 09:30 Arthritis Pain Compound 60 Click Tube TOPICAL 3 click BID GIOVANNI Administration Protocol Dofetilide 250 mcg 03/01/24 22:00 03/02/24 09:19 Dofetilide 250 Mcg Capsule PO 250 mcg Q12H GIOVANNI Administration Duloxetine HCl 120 mg 03/02/24 10:00 03/02/24 09:15 Duloxetine Hcl 60 Mg Capsule PO 120 mg DAILY GIOVANNI Administration Ezetimibe 10 mg 03/01/24 22:00 03/01/24 22:47 Ezetimibe 10 Mg Tablet PO 10 mg QHS GIOVANNI Administration Empagliflozin 12.5 mg 03/02/24 08:00 03/02/24 09:15 Empagliflozin 25 Mg Tablet PO 12.5 mg DAILYCM GIOVANNI Administration Finasteride 5 mg 03/02/24 10:00 03/02/24 09:18 Finasteride 5 Mg Tablet PO 5 mg DAILY GIOVANNI Administration Guaifenesin 1,200 mg 03/01/24 22:00 03/02/24 09:18 Guaifenesin 1,200 Mg Tablet PO 1,200 mg BID GIOVANNI Administration Sodium Chloride 100 mls @ 15 mls/hr 03/01/24 19:59 IV .Q6H40M PRN Saline Flush Sodium Chloride 100 mls @ 15 mls/hr 03/01/24 19:59 IV .Q6H40M PRN Additional IVPB Infusion Levalbuterol HCl 0.63 mg 03/01/24 23:15 03/02/24 13:05 Levalbuterol Hcl 0.63 Mg/3 Ml Vial.Neb INHALATION 0.63 mg TID.RT GIOVANNI Administration Lidocaine 2 patch 03/02/24 10:00 03/02/24 09:17 Lidocaine 5% Patch TOPICAL 2 patch DAILY GIOVANNI Administration Lorazepam 0.5 mg 03/01/24 22:00 03/01/24 22:43 Lorazepam 0.5 Mg Tablet PO 0.5 mg QHS GIOVANNI Administration Methocarbamol 750 mg 03/01/24 22:00 03/02/24 09:17 Methocarbamol 750 Mg Tablet PO 750 mg BID GIOVANNI Administration Metoprolol Succinate 25 mg 03/02/24 10:00 03/02/24 09:19 Metoprolol(Xl)Succ 25 Mg Tablet PO 25 mg DAILY GIOVANNI Administration Protocol Midodrine 5 mg 03/02/24 10:00 03/02/24 09:18 Midodrine Hcl 5 Mg Tablet PO 5 mg 1000,1400,1800 GIOVANNI Administration Mirtazapine 7.5 mg 03/01/24 22:00 03/01/24 22:46 Mirtazapine 15 Mg Tablet PO 7.5 mg QHS GIOVANNI Administration Multivitamins/Minerals 1 cap 03/02/24 08:00 03/02/24 09:14 Multivitamin (Healthy Eyes) Capsule PO 1 cap DAILYCM GIOVANNI Administration Nitroglycerin 0.4 mg 03/01/24 20:18 Nitroglycerin (Inpatient Use) 0.4 Mg Tab.Subl SL Q5M PRN CARDIAC/CHEST PAIN Nystatin 1 applic 03/01/24 22:00 03/02/24 09:22 Nystatin Powder 15gm Bottle TOPICAL 1 applic BID GIOVANNI Administration Protocol Oxycodone HCl 5 mg 03/01/24 20:37 03/02/24 06:38 Oxycodone 5 Mg Tablet PO 03/03/24 23:59 5 mg Q4H PRN PRN Administration Pain Score 6-10 or Pre PT/OT Pantoprazole Sodium 40 mg 03/02/24 07:00 03/02/24 06:33 Pantoprazole Sodium 40 Mg Tablet PO 40 mg DAILY@0700 GIOVANNI Administration Polyethylene Glycol 17 gm 03/02/24 10:00 03/02/24 09:17 Polyethylene Glycol 3350 17 Gm Packet PO 17 gm DAILY GIOVANNI Administration Senna/Docusate Sodium 2 tablet 03/01/24 22:00 03/02/24 09:19 Senna/Docusate Sodium 1 Tablet PO 2 tablet BID GIOVANNI Administration Sodium Chloride 10 - 40 ml 03/01/24 19:59 03/02/24 12:03 0.9% Saline Lock 10 Ml Syringe IV 10 ml UD PRN Administration SALINE FLUSH Sucralfate 1 gm 03/02/24 07:00 03/02/24 06:33 Sucralfate 1 Gm Tablet PO 1 gm BIDAC GIOVANNI Administration Tamsulosin HCl 0.8 mg 03/01/24 22:00 03/01/24 22:43 Tamsulosin Hcl 0.4 Mg Capsule PO 0.8 mg 2200 GIOVANNI Administration Tuberculin PPD 0.1 ml 03/09/24 10:00 Tuberculin,Purif.Prot.Deriv. 50 Tu/Ml Vial ID 03/09/24 10:01 X1 ONE Umeclidinium/Vilanterol 1 puff 03/02/24 10:00 03/02/24 09:20 Umeclidinium Brm/Vilanterol 62.5-25 Mcg Inh INHALATION 1 puff DAILY GIOVANNI Administration Problem List Vitamin D deficiency (Acute) Status post cholecystectomy (Acute) Muscle spasm (Acute) (HFpEF) heart failure with preserved ejection fraction (Acute) Acalculous cholecystitis (Acute) Macular degeneration (Acute) Orthostatic hypotension (Acute) Atrial fibrillation (Acute) Coronary artery disease (Acute) Depression (Acute) Anxiety (Acute) Debility (Acute) COPD (chronic obstructive pulmonary disease) (Chronic) BPH (benign prostatic hyperplasia) (Acute) GERD (gastroesophageal reflux disease) (Acute) Hyperlipidemia (Chronic) Vital Signs Temp Pulse Resp BP Pulse Ox O2 Del Method O2 Flow Rate 97.4 F L 73 18 90/49 L 93 Room Air 2 03/02/24 09:11 03/02/24 14:32 03/02/24 13:02 03/02/24 14:32 03/02/24 09:11 03/02/24 12:11 03/02/24 07:28 Oxygen Flow Rate (L/min) 2 Oxygen Delivery Method Room Air Weight: 75.432 kg Body Mass Index (BMI) 25.2 Sodium 137 mmol/L (136-145) 03/02/24 05:26 Potassium 3.7 mmol/L (3.5-5.1) 03/02/24 05:26 Chloride 105 mmol/L (98-107) 03/02/24 05:26 Carbon Dioxide 28.0 mmol/L (21.0-32.0) 03/02/24 05:26 Anion Gap 5 (5-15) 03/02/24 05:26 BUN 12 mg/dL (7-18) 03/02/24 05:26 Creatinine 0.74 mg/dL (0.70-1.30) 03/02/24 05:26 Est GFR (MDRD) Af Amer 129 mL/min (>60) 03/02/24 05:26 Est GFR (MDRD) Non-Af 107 mL/min (>60) 03/02/24 05:26 BUN/Creatinine Ratio 16.2 RATIO (10-20) 03/02/24 05:26 Glucose 113 mg/dL (74-106) H 03/02/24 05:26 Assessment/Plan: 1. Pain: arthritis pain compound 3 clicks topical BID, lidocaine 5% patch 2 patches topical daily, acetaminophen 1000 mg PO Q6H PRN pain 1-5 and oxycodone 5 mg PO Q4H PRN pain 6-10. Resident has not used any PRN doses of acetaminophen and 2 doses of oxycodone for pain scores of 6-7 in neck/abdomen. Please continue to monitor pain levels, PRN medication usage, LFTs (last 01/13/24), for constipation, respiratory depression, dizziness/drowsiness, and for syncope/ataxia/falls. 2. Bowel: Miralax 17gm PO daily and senna/docusate 2 tablet PO BID. Please continue to monitor for constipation and diarrhea. Last documented bowel movement was 03/01/24. 3. Atrial fibrillation/HFpEF/CAD: dofetilide 250 mcg PO BID, metoprolol succinate 25mg PO daily, apixaban 5 mg PO BID (currently on hold due to hemoptysis), empagliflozin 12.5mg PO daily and nitroglycerin 0.4mg SL Q5M PRN chest pain. No PRN doses have been given. Please continue to monitor for s/s of stroke, chest pain, for shortness of breath, heart rates (last 73), BP (last 90/49), QTc (recent QTc = 428 ms), potassium levels (last 3.7 mmol/L), sodium levels (last 137 mmol/L), renal function (last SCr 0.74 mg/dL) magnesium levels (last 2.3 mg/dL), for headache, for s/s of bleeding/excessive bruising, hemoglobin levels (last 9.5 g/dL), for s/s of dehydration, and for s/s of UTI and platelet count (last 315 K/mm3). 4. COPD: levalbuterol 0.63 mg Inhalation TID, umeclidinium/vilanterol 1 puff daily and budesonide 0.5mg inhalation BID. Resident is on scheduled long acting beta agonist and short acting beta agonist. Please consider changing short acting to PRN. Thanks. Please continue to monitor for shortness of breath, S/S of thrush, for palpitations, for constipation, dry mouth, dry eyes, and dizziness. 5. Hyperlipidemia: atorvastatin 10 mg PO QHS, ezetimibe 10 mg PO QHS. Please continue to monitor lipid levels (cholesterol = 147 mg/dL with LDL = 89 mg/dL on 04/03/23), LFTs (last 01/13/24), and for myalgias. 6. BPH: finasteride 5 mg PO daily, tamsulosin 0.8 mg PO daily. Please continue to monitor for s/s of urinary retention, urine stream and for s/s of orthostasis (last BP 90/49). 7. Orthostatic hypotension: midodrine 5 mg PO TID. Please continue to monitor for s/s of orthostasis. 8. Muscle spasms: methocarbamol 750 mg PO BID. Please continue to monitor for muscle spasms, anticholinergic side effects (BEERs), dizziness, drowsiness, confusion, sedation, and ataxia. 9. GERD: pantoprazole 40 mg PO daily, sucralfate 1 gram PO BID. Please continue to monitor for s/s of GERD, for diarrhea that could indicate clostridium difficile infection (BEERs), for s/s of bone resorption issues such as fractures, and for constipation. 10. Macular degeneration: healthy eyes 1 capsule PO daily. Please continue to monitor. 11. Congestion: guaifenesin 1200mg PO BID. Please continue to monitor for congestion. 12. Vitamin D deficiency: cholecalciferol 25mcg PO daily. Please continue to monitor vitamin D (last 01/22/24). Assessment/Plan for indications treated with psychotropic medications: 1. Depression: duloxetine 120 mg PO daily. Please see provider note regarding GDR. Please continue to monitor for depression, for suicidal ideation (black box warning), falls/fractures (BEERs), for s/s of serotonin syndrome, sodium levels (last 137 mmol/L), abdominal pain and dry mouth. 2. Insomnia: lorazepam 0.5 mg PO QHS and mirtazapine 7.5mg PO QHS. Please see provider note regarding GDR. Please continue to monitor for s/s of anxiety, drowsiness/dizziness, falls/fractures (BEERs), dementia/delirium (BEERs), sodium and improved appetite. Medical chart and medication regimen reviewed. The following medication irregularities or issues were identified: 1. Levalbuterol 0.63 mg Inhalation TID, umeclidinium/vilanterol 1 puff daily. Resident is on scheduled long acting beta agonist and short acting beta agonist. Please consider changing short acting to PRN. Thanks. 2. Metoprolol succinate 25mg PO daily. Please consider ordering adding hold parameters as the last BP was 90/49. Thanks. Date Date of Note: 03/02/24 Documented by User: Dr. Parrish Shah MD 03/02/24 17:24 TCU RX Drug Regimen Review Provider Comments Provider responsibility Provider Comments to Recommendations by Pharmacy Agree
--- NOTE | 2024-03-02 15:05 | CASEMGMT ---
Social Work SW met with pt to complete initial assessment. Introduced self and role of SW. SW verified contacts. Patient confirmed that code status is full code. SW educated pt to [facility] MCR benefit with NRD of 03/03 and continued stay is not guaranteed with each review. Pt's goal is to return home with spouse and assistance from his daughter. SW will continue to follow for DC planning. KAITLYN Valle
--- NOTE | 2024-03-02 15:33 | CHAPLAIN ---
Type of Pastoral Visit _x__ Initial Visit ___ Follow-up Visit ___ On-call Visit ___ General Patient Visit ___ Spiritual Assessment ___ Family Conference ___ Bereavement ___ Rapid Response ___ Code Blue ___ Other (describe below) Pastoral Care Referral From _x__ Patient ___ Family ___ Nurse ___ Physician ___ Shipper Receiver ___ Nondestructive Tester ___ Other (describe below) Sacrament/Intervention _x__ Active listening ___ Anointing ___ Synagogue ___ Bereavement ___ Communion ___ Nannette exploration ___ ___ Life review ___ Prayer ___ Reconciliation ___ Sacrament of Sick _x__ Supportive presence ___ Wedding ___ Other (describe below) Pastoral Comments patient is back with the TCU program after more surgery; pt gives update on his surgery progress and health; pt is talkative but also expresses being tired and so this visit was kept brief; pt states that he expects his and family to visit soon and that he is doing fine;
--- NOTE | 2024-03-02 15:47 | NURSING ---
daughter notified of CT scan results
[2024-03-02] MEDS: LORazepam 0.5 MG Tablet PO (22:44)
[2024-03-02] MEDS: Acetaminophen 500 MG Tablet 1000 MG PO (22:44)
[2024-03-02] MEDS: Tamsulosin HCl 0.4 MG Capsule 0.8 MG PO (22:46)
[2024-03-02] MEDS: Atorvastatin Calcium 10 MG Tablet PO (22:47)
[2024-03-02] MEDS: Mirtazapine 15 MG Tablet 7.5 MG PO (22:47)
[2024-03-02] MEDS: Ezetimibe 10 MG Tablet PO (22:48)
[2024-03-03] MEDS: oxyCODONE 5 MG Tablet PO (04:03)
[2024-03-03] MEDS: Pantoprazole Sodium 40 MG Tablet PO (06:29)
[2024-03-03] MEDS: Sucralfate 1 GM Tablet PO ×2 (06:29→15:04)
[2024-03-03] MEDS: levalbuterol HCL 0.63 MG/3 ML VIAL.NEB INHALATION (06:45)
[2024-03-03] MEDS: Budesonide Respules 0.5 MG/2 ML AMPUL.NEB. INHALATION (06:46)
[2024-03-03 06:47] VITALS: PULSE 73; RESP 18; O2SAT 92
[2024-03-03] MEDS: Empagliflozin 25 MG Tablet 12.5 MG PO (10:00)
[2024-03-03] MEDS: Multivitamin (Healthy Eyes) Capsule 1 CAP PO (10:00)
[2024-03-03] MEDS: Nystatin Powder 15gm Bottle 1 APPLIC TOPICAL ×2 (10:01→22:54)
[2024-03-03] MEDS: Cholecalciferol (VIT D3) 25 MCG TABLET (1,000 UNITS) PO (10:01)
[2024-03-03] MEDS: Arthritis Pain Compound 60 CLICK TUBE TOPICAL ×2 (10:01→22:52)
[2024-03-03] MEDS: Umeclidinium Brm/Vilanterol 62.5-25 mcg Inh 1 PUFF INHALATION (10:01)
[2024-03-03] MEDS: DULoxetine Hcl 60 MG Capsule 120 MG PO (10:01)
[2024-03-03] MEDS: Lidocaine 5% Patch 2 PATCH TOPICAL (10:01)
[2024-03-03] MEDS: guaiFENesin 1,200 MG Tablet 1200 MG PO ×2 (10:01→22:54)
[2024-03-03] MEDS: Methocarbamol 750 MG Tablet PO ×2 (10:01→22:53)
[2024-03-03] MEDS: Menthol/Lanolin/Calamine/Znox 113 GM Tube 1 APPLIC TOPICAL ×2 (10:01→22:54)
[2024-03-03 10:02] VITALS: PULSE 84
[2024-03-03] MEDS: Midodrine HCl 5 MG Tablet PO ×3 (10:02→17:09)
[2024-03-03] MEDS: Polyethylene Glycol 3350 17 GM PACKET PO (10:02)
[2024-03-03] MEDS: Senna/Docusate Sodium 1 Tablet 2 TABLET PO ×2 (10:02→22:53)
[2024-03-03] MEDS: Metoprolol(XL)Succ 25 MG Tablet PO (10:02)
[2024-03-03] MEDS: Finasteride 5 MG Tablet PO (10:02)
[2024-03-03] MEDS: Dofetilide 250 MCG Capsule PO ×2 (10:02→22:53)
[2024-03-03 10:40] VITALS: BP 99/56; PULSE 84; RESP 16; TEMP 36.6; O2SAT 92
[2024-03-03 13:14] VITALS: BP 97/54; PULSE 80
[2024-03-03] MEDS: Acetaminophen 500 MG Tablet 1000 MG PO (17:31)
[2024-03-03 22:40] VITALS: BP 95/61; PULSE 79; RESP 18; O2SAT 93
[2024-03-03] MEDS: LORazepam 0.5 MG Tablet PO (22:52)
[2024-03-03] MEDS: Tamsulosin HCl 0.4 MG Capsule 0.8 MG PO (22:52)
[2024-03-03] MEDS: Ezetimibe 10 MG Tablet PO (22:53)
[2024-03-03] MEDS: Mirtazapine 15 MG Tablet 7.5 MG PO (22:53)
[2024-03-03] MEDS: Atorvastatin Calcium 10 MG Tablet PO (22:54)
[2024-03-04] MEDS: Acetaminophen 500 MG Tablet 1000 MG PO (01:08)
[2024-03-04] MEDS: Sucralfate 1 GM Tablet PO ×2 (06:30→16:03)
[2024-03-04] MEDS: Pantoprazole Sodium 40 MG Tablet PO (06:30)
[2024-03-04 06:43] VITALS: PULSE 75; RESP 20; O2SAT 95
[2024-03-04 08:24] VITALS: BP 101/66; PULSE 89; RESP 17; TEMP 36.6; O2SAT 92
[2024-03-04] MEDS: Empagliflozin 25 MG Tablet 12.5 MG PO (08:26)
[2024-03-04] MEDS: Multivitamin (Healthy Eyes) Capsule 1 CAP PO (08:26)
[2024-03-04] MEDS: Menthol/Lanolin/Calamine/Znox 113 GM Tube 1 APPLIC TOPICAL ×2 (08:27→23:11)
[2024-03-04] MEDS: Cholecalciferol (VIT D3) 25 MCG TABLET (1,000 UNITS) PO (08:27)
[2024-03-04] MEDS: Umeclidinium Brm/Vilanterol 62.5-25 mcg Inh 1 PUFF INHALATION (08:27)
[2024-03-04] MEDS: Arthritis Pain Compound 60 CLICK TUBE TOPICAL ×2 (08:27→23:09)
[2024-03-04] MEDS: Lidocaine 5% Patch 2 PATCH TOPICAL (08:28)
[2024-03-04] MEDS: DULoxetine Hcl 60 MG Capsule 120 MG PO (08:28)
[2024-03-04] MEDS: Polyethylene Glycol 3350 17 GM PACKET PO (08:29)
[2024-03-04] MEDS: guaiFENesin 1,200 MG Tablet 1200 MG PO ×2 (08:29→23:17)
[2024-03-04] MEDS: Methocarbamol 750 MG Tablet PO ×2 (08:29→23:17)
[2024-03-04] MEDS: Nystatin Powder 15gm Bottle 1 APPLIC TOPICAL ×2 (08:29→23:17)
[2024-03-04 08:30] VITALS: PULSE 89
[2024-03-04] MEDS: Senna/Docusate Sodium 1 Tablet 2 TABLET PO ×2 (08:30→23:20)
[2024-03-04] MEDS: Dofetilide 250 MCG Capsule PO ×2 (08:30→23:23)
[2024-03-04] MEDS: Metoprolol(XL)Succ 25 MG Tablet PO (08:30)
[2024-03-04] MEDS: Finasteride 5 MG Tablet PO (08:30)
[2024-03-04] MEDS: Cephalexin 500 MG Capsule PO ×2 (08:34→23:16)
[2024-03-04] MEDS: Doxycycline 100 MG CAPSULE PO ×2 (08:34→23:14)
[2024-03-04] MEDS: oxyCODONE 5 MG Tablet PO ×2 (08:35→23:37)
[2024-03-04 14:19] VITALS: BP 95/57; PULSE 77
[2024-03-04] MEDS: Midodrine HCl 5 MG Tablet PO (14:41)
[2024-03-04] MEDS: 0.9% Saline Lock 10 ML Syringe IV (16:04)
[2024-03-04 17:28] VITALS: BP 114/59; PULSE 73
[2024-03-04] MEDS: Tamsulosin HCl 0.4 MG Capsule 0.8 MG PO (23:15)
[2024-03-04] MEDS: APIXABAN 5 MG TABLET PO (23:15)
[2024-03-04] MEDS: Atorvastatin Calcium 10 MG Tablet PO (23:16)
[2024-03-04] MEDS: Mirtazapine 15 MG Tablet 7.5 MG PO (23:19)
[2024-03-04] MEDS: Ezetimibe 10 MG Tablet PO (23:24)
[2024-03-04] MEDS: LORazepam 0.5 MG Tablet PO (23:26)
[2024-03-05] MEDS: Pantoprazole Sodium 40 MG Tablet PO (06:21)
[2024-03-05] MEDS: Sucralfate 1 GM Tablet PO ×2 (06:21→16:38)
[2024-03-05] MEDS: 0.9% Saline Lock 10 ML Syringe IV ×2 (06:23→22:55)
[2024-03-05] MEDS: levalbuterol HCL 0.63 MG/3 ML VIAL.NEB INHALATION ×2 (07:30→13:19)
[2024-03-05] MEDS: Budesonide Respules 0.5 MG/2 ML AMPUL.NEB. INHALATION ×2 (07:30→19:00)
[2024-03-05 07:35] VITALS: PULSE 82; RESP 18; O2SAT 94
[2024-03-05] MEDS: Methocarbamol 750 MG Tablet PO ×2 (08:11→20:15)
[2024-03-05] MEDS: Dofetilide 250 MCG Capsule PO ×2 (08:12→20:14)
[2024-03-05] MEDS: DULoxetine Hcl 60 MG Capsule 120 MG PO (08:13)
[2024-03-05] MEDS: Empagliflozin 25 MG Tablet 12.5 MG PO (08:13)
[2024-03-05] MEDS: guaiFENesin 1,200 MG Tablet 1200 MG PO ×2 (08:15→20:15)
[2024-03-05] MEDS: Polyethylene Glycol 3350 17 GM PACKET PO (08:16)
[2024-03-05] MEDS: Lidocaine 5% Patch 2 PATCH TOPICAL (08:16)
[2024-03-05] MEDS: Cephalexin 500 MG Capsule PO ×2 (08:17→22:53)
[2024-03-05] MEDS: Cholecalciferol (VIT D3) 25 MCG TABLET (1,000 UNITS) PO (08:18)
[2024-03-05] MEDS: Senna/Docusate Sodium 1 Tablet 2 TABLET PO (08:18)
[2024-03-05] MEDS: Finasteride 5 MG Tablet PO (08:19)
[2024-03-05] MEDS: Multivitamin (Healthy Eyes) Capsule 1 CAP PO (08:19)
[2024-03-05] MEDS: Umeclidinium Brm/Vilanterol 62.5-25 mcg Inh 1 PUFF INHALATION (08:20)
[2024-03-05] MEDS: Arthritis Pain Compound 60 CLICK TUBE TOPICAL ×2 (08:21→20:13)
[2024-03-05] MEDS: Doxycycline 100 MG CAPSULE PO ×2 (08:26→22:53)
[2024-03-05] MEDS: APIXABAN 5 MG TABLET PO ×2 (08:27→20:14)
[2024-03-05] MEDS: Nystatin Powder 15gm Bottle 1 APPLIC TOPICAL ×2 (08:28→20:15)
[2024-03-05] MEDS: Menthol/Lanolin/Calamine/Znox 113 GM Tube 1 APPLIC TOPICAL ×2 (08:28→20:16)
[2024-03-05 08:32] VITALS: BP 96/59; PULSE 86
[2024-03-05] MEDS: Midodrine HCl 5 MG Tablet PO (08:32)
[2024-03-05] MEDS: Metoprolol(XL)Succ 25 MG Tablet PO (08:32)
[2024-03-05 12:41] VITALS: BP 109/67; PULSE 91; RESP 20; TEMP 36.7; O2SAT 94
[2024-03-05 13:19] VITALS: PULSE 81; RESP 17
[2024-03-05 16:43] VITALS: BP 115/66; PULSE 83
[2024-03-05 19:01] VITALS: PULSE 76; RESP 16
--- NOTE | 2024-03-05 19:02 | NURSING ---
Binder removed, this may be causing some irritation d/t rubbing on healing incision sites. no drng, well approximated, left incisions APARNA. pt with less pain today with coughing & movement. No s/s of infection to incisions. daughter updated
[2024-03-05] MEDS: Mirtazapine 15 MG Tablet 7.5 MG PO (20:14)
[2024-03-05] MEDS: Ezetimibe 10 MG Tablet PO (20:14)
[2024-03-05] MEDS: Atorvastatin Calcium 10 MG Tablet PO (20:15)
[2024-03-05] MEDS: Tamsulosin HCl 0.4 MG Capsule 0.8 MG PO (20:15)
--- NOTE | 2024-03-05 20:41 | NURSING ---
Addendum entered by Vivi Swann 03/05/24 20:55: Daughter Lala. Original Note: Pt on doxycycline and keflex for cellulitis of abdomen. Upon reassessment of pt he states r lateral side of incision is tender to touch and when palpated it is swollen compared to medial portion of incision. Pt states today he has started getting a pain/pressure in his r flank that is constant and started today. This area is directly behind incision. Pt afebrile. 97.8 temporal, VSS Bp 109/58, Hr 75, RR 18. Reported findings to Dr. Shah. Orders for CT of abdomen and pelvis. Pt aware of CT scan and daughter Ama notified.
[2024-03-05] MEDS: LORazepam 0.5 MG Tablet PO (22:53)
[2024-03-05] MEDS: oxyCODONE 5 MG Tablet PO (22:53)
[2024-03-06] VITALS (8 sets, daily range): BP systolic 92–108; BP diastolic 55–61; PULSE 68–84; RESP 17–24; TEMP 36.8; O2SAT 93–94
[2024-03-06] MEDS: Sucralfate 1 GM Tablet PO ×2 (06:22→17:26)
[2024-03-06] MEDS: Pantoprazole Sodium 40 MG Tablet PO (06:22)
[2024-03-06] MEDS: levalbuterol HCL 0.63 MG/3 ML VIAL.NEB INHALATION ×2 (07:52→13:21)
[2024-03-06] MEDS: Budesonide Respules 0.5 MG/2 ML AMPUL.NEB. INHALATION ×2 (07:52→19:07)
[2024-03-06] MEDS: Umeclidinium Brm/Vilanterol 62.5-25 mcg Inh 1 PUFF INHALATION (08:33)
[2024-03-06] MEDS: Senna/Docusate Sodium 1 Tablet 2 TABLET PO ×2 (08:34→21:31)
[2024-03-06] MEDS: DULoxetine Hcl 60 MG Capsule 120 MG PO (08:35)
[2024-03-06] MEDS: APIXABAN 5 MG TABLET PO ×2 (08:35→21:28)
[2024-03-06] MEDS: Cholecalciferol (VIT D3) 25 MCG TABLET (1,000 UNITS) PO (08:35)
[2024-03-06] MEDS: Multivitamin (Healthy Eyes) Capsule 1 CAP PO (08:36)
[2024-03-06] MEDS: Dofetilide 250 MCG Capsule PO ×2 (08:36→21:31)
[2024-03-06] MEDS: guaiFENesin 1,200 MG Tablet 1200 MG PO ×2 (08:37→21:30)
[2024-03-06] MEDS: Finasteride 5 MG Tablet PO (08:38)
[2024-03-06] MEDS: Nystatin Powder 15gm Bottle 1 APPLIC TOPICAL ×2 (08:38→21:29)
[2024-03-06] MEDS: Arthritis Pain Compound 60 CLICK TUBE TOPICAL ×2 (08:40→21:27)
[2024-03-06] MEDS: Midodrine HCl 5 MG Tablet PO ×3 (08:41→17:25)
[2024-03-06] MEDS: Metoprolol(XL)Succ 25 MG Tablet PO (08:41)
[2024-03-06] MEDS: Doxycycline 100 MG CAPSULE PO ×2 (08:42→21:28)
[2024-03-06] MEDS: Cephalexin 500 MG Capsule PO ×2 (08:42→21:30)
[2024-03-06] MEDS: Methocarbamol 750 MG Tablet PO ×2 (08:43→21:30)
[2024-03-06] MEDS: Empagliflozin 25 MG Tablet 12.5 MG PO (08:43)
[2024-03-06] MEDS: Menthol/Lanolin/Calamine/Znox 113 GM Tube 1 APPLIC TOPICAL ×2 (08:47→21:29)
[2024-03-06] MEDS: Lidocaine 5% Patch 2 PATCH TOPICAL (08:47)
--- NOTE | 2024-03-06 08:55 | NURSING ---
RUQ surgical site w/out redness or drng, pt c/o tenderness on palpation, firmness noted around surgical site only. May just be surgical site pain normal healing but will get CT of pelvis/abdomen when able to get insurance preauth. pt denies pain today. resting in bed, HOB 45 degrees.
--- NOTE | 2024-03-06 11:10 | NURSING ---
Lala, daughter updated on pt RUQ incision. daughter requesting labs today & probiotic since on PO ATBs. will notify dr frederick.
--- NOTE | 2024-03-06 16:47 | NURSING ---
pt c/o some pain to RT lower back while walking halls with assist from daughter. incisions remain VENEER JOINTER, no signs of active infection. no redness/drng.
[2024-03-06] MEDS: oxyCODONE 5 MG Tablet PO (21:26)
[2024-03-06] MEDS: LORazepam 0.5 MG Tablet PO (21:26)
[2024-03-06] MEDS: Lactobacillis Acidophilus 1 CAP PO (21:27)
[2024-03-06] MEDS: Tamsulosin HCl 0.4 MG Capsule 0.8 MG PO (21:29)
[2024-03-06] MEDS: Mirtazapine 15 MG Tablet 7.5 MG PO (21:29)
[2024-03-06] MEDS: Atorvastatin Calcium 10 MG Tablet PO (21:31)
[2024-03-06] MEDS: Ezetimibe 10 MG Tablet PO (21:32)
[2024-03-07 05:47] LABS: Absolute Lymphocyte Count 1.53 X10^3/uL (0.83-4.51); Absolute Neutrophil Count 6.5 X10^3/uL (2.0-7.7); Eosinophil# 1.03 X10^3/uL; Eosinophils% 10.1 % (0-5); Hematocrit 29.1 % (40-54); Hemoglobin 9.1 g/dL (13.0-16.5); Lymphocyte # 1.53 X10^3/ul (0.83-4.51); Mean Corp Hgb Conc 31.3 g/dL (32-36); Mean Corpuscular Volume 92.7 fL (80-94); Mean Platelet Vol. 8.9 fl (6.2-12.0); Monocyte# 0.89 X10^3/uL; Monocyte% 8.7 % (0-10); NRBC Flagged by Analyzer 0 % (0-5); Neutrophil % 63.6 % (47-70); Platelet Count 368 K/mm3 (150-450); RBC Distribution Width CV 14.8 % (11.6-14.6); RBC Distribution Width SD 49.8 fl (35.1-43.9); Red Blood Count 3.14 M/mm3 (4.6-6.2); White Blood Count 10.2 K/mm3 (4.4-11.0)
[2024-03-07 06:13] LABS: Anion Gap 4 (5-15); BUN 15 mg/dL (7-18); BUN/Creat Ratio 22.7 RATIO (10-20); Calcium,Total 8.7 mg/dL (8.5-10.1); Chloride 108 mmol/L (98-107); Creatinine, Serum 0.66 mg/dL (0.70-1.30); EST Glomerular Filtration Rate 122 mL/min (>60); Est Glom Filt Rate - Afr Amer 147 mL/min (>60); Estimated Creatinine Clearance 65.31 ml/min; Glucose 116 mg/dL (74-106); Potassium 3.5 mmol/L (3.5-5.1); Sodium Level 140 mmol/L (136-145)
[2024-03-07] MEDS: Sucralfate 1 GM Tablet PO ×2 (06:33→17:00)
[2024-03-07] MEDS: Pantoprazole Sodium 40 MG Tablet PO (06:33)
[2024-03-07 07:14] VITALS: PULSE 90; RESP 14; O2SAT 98
[2024-03-07] MEDS: levalbuterol HCL 0.63 MG/3 ML VIAL.NEB INHALATION (07:14)
[2024-03-07 08:26] VITALS: BP 97/59; PULSE 72; RESP 18; TEMP 36.4; O2SAT 94
[2024-03-07] MEDS: Empagliflozin 25 MG Tablet 12.5 MG PO (08:32)
[2024-03-07] MEDS: Multivitamin (Healthy Eyes) Capsule 1 CAP PO (08:32)
[2024-03-07] MEDS: Arthritis Pain Compound 60 CLICK TUBE TOPICAL ×2 (08:33→22:01)
[2024-03-07] MEDS: Cholecalciferol (VIT D3) 25 MCG TABLET (1,000 UNITS) PO (08:33)
[2024-03-07] MEDS: Umeclidinium Brm/Vilanterol 62.5-25 mcg Inh 1 PUFF INHALATION (08:33)
[2024-03-07] MEDS: Lactobacillis Acidophilus 1 CAP PO ×2 (08:33→22:01)
[2024-03-07] MEDS: Menthol/Lanolin/Calamine/Znox 113 GM Tube 1 APPLIC TOPICAL ×2 (08:34→22:13)
[2024-03-07] MEDS: DULoxetine Hcl 60 MG Capsule 120 MG PO (08:34)
[2024-03-07] MEDS: Doxycycline 100 MG CAPSULE PO ×2 (08:34→22:03)
[2024-03-07] MEDS: Lidocaine 5% Patch 2 PATCH TOPICAL (08:35)
[2024-03-07] MEDS: Methocarbamol 750 MG Tablet PO ×2 (08:35→22:02)
[2024-03-07] MEDS: Cephalexin 500 MG Capsule PO ×2 (08:35→22:05)
[2024-03-07] MEDS: Polyethylene Glycol 3350 17 GM PACKET PO (08:35)
[2024-03-07] MEDS: APIXABAN 5 MG TABLET PO ×2 (08:35→22:03)
[2024-03-07] MEDS: Midodrine HCl 5 MG Tablet PO (08:36)
[2024-03-07] MEDS: Finasteride 5 MG Tablet PO (08:36)
[2024-03-07] MEDS: Nystatin Powder 15gm Bottle 1 APPLIC TOPICAL ×2 (08:36→22:13)
[2024-03-07] MEDS: Senna/Docusate Sodium 1 Tablet 2 TABLET PO (08:36)
[2024-03-07] MEDS: guaiFENesin 1,200 MG Tablet 1200 MG PO ×2 (08:36→22:04)
[2024-03-07] MEDS: Dofetilide 250 MCG Capsule PO ×2 (08:37→22:05)
[2024-03-07 08:38] VITALS: PULSE 72
[2024-03-07] MEDS: Metoprolol(XL)Succ 25 MG Tablet PO (08:38)
--- NOTE | 2024-03-07 09:09 | NURSING ---
Called for CT scan authorization, no auth needed for these codes.
[2024-03-07 17:02] VITALS: BP 111/58
[2024-03-07] MEDS: LORazepam 0.5 MG Tablet PO (22:01)
[2024-03-07] MEDS: Tamsulosin HCl 0.4 MG Capsule 0.8 MG PO (22:02)
[2024-03-07] MEDS: Atorvastatin Calcium 10 MG Tablet PO (22:04)
[2024-03-07] MEDS: Mirtazapine 15 MG Tablet 7.5 MG PO (22:05)
[2024-03-07] MEDS: Ezetimibe 10 MG Tablet PO (22:06)
[2024-03-08] MEDS: oxyCODONE 5 MG Tablet PO (00:20)
[2024-03-08] MEDS: Pantoprazole Sodium 40 MG Tablet PO (06:13)
[2024-03-08] MEDS: Sucralfate 1 GM Tablet PO ×2 (06:13→16:27)
--- NOTE | 2024-03-08 08:59 | NURSING ---
Discussed follow-up appts with Lala. She doesn't want any cardiology appt at this time. Ok for RN to schedule follow-up with surgeon, she was told they could do a virtual visit. Lala prefers an afternoon appt.
[2024-03-08] MEDS: Multivitamin (Healthy Eyes) Capsule 1 CAP PO (09:04)
[2024-03-08] MEDS: Senna/Docusate Sodium 1 Tablet 2 TABLET PO ×2 (09:04→21:28)
[2024-03-08] MEDS: guaiFENesin 1,200 MG Tablet 1200 MG PO ×2 (09:04→21:28)
[2024-03-08] MEDS: Empagliflozin 25 MG Tablet 12.5 MG PO (09:04)
[2024-03-08 09:05] VITALS: BP 105/61; PULSE 80
[2024-03-08] MEDS: Methocarbamol 750 MG Tablet PO ×2 (09:05→21:28)
[2024-03-08] MEDS: Lactobacillis Acidophilus 1 CAP PO ×2 (09:05→21:27)
[2024-03-08] MEDS: Dofetilide 250 MCG Capsule PO ×2 (09:05→21:28)
[2024-03-08] MEDS: APIXABAN 5 MG TABLET PO ×2 (09:05→21:28)
[2024-03-08] MEDS: Metoprolol(XL)Succ 25 MG Tablet PO (09:05)
[2024-03-08] MEDS: Cephalexin 500 MG Capsule PO ×2 (09:05→21:28)
[2024-03-08] MEDS: Finasteride 5 MG Tablet PO (09:05)
[2024-03-08] MEDS: Doxycycline 100 MG CAPSULE PO ×2 (09:05→21:28)
[2024-03-08] MEDS: Cholecalciferol (VIT D3) 25 MCG TABLET (1,000 UNITS) PO (09:05)
[2024-03-08] MEDS: DULoxetine Hcl 60 MG Capsule 120 MG PO (09:05)
[2024-03-08] MEDS: Arthritis Pain Compound 60 CLICK TUBE TOPICAL ×2 (09:06→21:27)
[2024-03-08] MEDS: Lidocaine 5% Patch 2 PATCH TOPICAL (09:06)
[2024-03-08] MEDS: Menthol/Lanolin/Calamine/Znox 113 GM Tube 1 APPLIC TOPICAL ×2 (09:06→21:33)
[2024-03-08 10:05] VITALS: PULSE 94; RESP 15; O2SAT 97
[2024-03-08] MEDS: Budesonide Respules 0.5 MG/2 ML AMPUL.NEB. INHALATION (10:05)
--- NOTE | 2024-03-08 10:17 | NURSING ---
Material Handler Floorperson Note; MDS for 03/08/2024 Complete
[2024-03-08] MEDS: 0.9% Saline Lock 10 ML Syringe IV ×2 (10:35→21:29)
[2024-03-08] MEDS: Umeclidinium Brm/Vilanterol 62.5-25 mcg Inh 1 PUFF INHALATION (10:35)
[2024-03-08] MEDS: Nystatin Powder 15gm Bottle 1 APPLIC TOPICAL ×2 (10:40→21:33)
[2024-03-08 12:54] VITALS: BP 98/53; PULSE 75; RESP 18; TEMP 36.3; O2SAT 95
[2024-03-08] MEDS: Midodrine HCl 5 MG Tablet PO (13:00)
[2024-03-08 14:17] VITALS: BMI 25.7
--- NOTE | 2024-03-08 15:36 | CASEMGMT ---
Social Work SW completed BIMS () and PHQ-2 () for MDS assessment. Peyton Simmons, FRAMING SPECIALIST SANDBLASTER SUPERVISOR
[2024-03-08 17:00] VITALS: BP 107/59; PULSE 68
[2024-03-08 21:15] VITALS: PULSE 74; O2SAT 96
[2024-03-08] MEDS: LORazepam 0.5 MG Tablet PO (21:27)
[2024-03-08] MEDS: Mirtazapine 15 MG Tablet 7.5 MG PO (21:28)
[2024-03-08] MEDS: Ezetimibe 10 MG Tablet PO (21:28)
[2024-03-08] MEDS: Atorvastatin Calcium 10 MG Tablet PO (21:28)
[2024-03-08] MEDS: Tamsulosin HCl 0.4 MG Capsule 0.8 MG PO (21:28)
[2024-03-08] MEDS: Acetaminophen 500 MG Tablet 1000 MG PO (21:29)
[2024-03-09 05:37] LABS: Absolute Lymphocyte Count 1.47 X10^3/uL (0.83-4.51); Eosinophil# 0.86 X10^3/uL; Eosinophils% 8.2 % (0-5); Hematocrit 28.4 % (40-54); Hemoglobin 8.7 g/dL (13.0-16.5); Lymphocyte # 1.47 X10^3/ul (0.83-4.51); Lymphocyte % 14.1 % (19-41); Mean Corp Hgb Conc 30.6 g/dL (32-36); Mean Corpuscular Hgb 28.6 pg (27.0-32.0); Mean Corpuscular Volume 93.4 fL (80-94); Mean Platelet Vol. 9.3 fl (6.2-12.0); Monocyte# 0.85 X10^3/uL; Monocyte% 8.1 % (0-10); NRBC Flagged by Analyzer 0 % (0-5); Neutrophil # 6.99 X10^3/uL (2.7-7.7); Neutrophil % 66.9 % (47-70); Platelet Count 359 K/mm3 (150-450); RBC Distribution Width CV 14.8 % (11.6-14.6); RBC Distribution Width SD 50.4 fl (35.1-43.9); Red Blood Count 3.04 M/mm3 (4.6-6.2); White Blood Count 10.5 K/mm3 (4.4-11.0)
[2024-03-09 06:11] LABS: Anion Gap 6 (5-15); BUN 15 mg/dL (7-18); BUN/Creat Ratio 21.7 RATIO (10-20); Calcium,Total 8.3 mg/dL (8.5-10.1); Chloride 109 mmol/L (98-107); Creatinine, Serum 0.69 mg/dL (0.70-1.30); EST Glomerular Filtration Rate 116 mL/min (>60); Est Glom Filt Rate - Afr Amer 140 mL/min (>60); Estimated Creatinine Clearance 65.31 ml/min; Glucose 127 mg/dL (74-106); Potassium 3.3 mmol/L (3.5-5.1); Sodium Level 140 mmol/L (136-145)
[2024-03-09] MEDS: Pantoprazole Sodium 40 MG Tablet PO (06:18)
[2024-03-09] MEDS: Sucralfate 1 GM Tablet PO ×2 (06:18→17:12)
[2024-03-09] MEDS: guaiFENesin 1,200 MG Tablet 1200 MG PO ×2 (09:44→21:44)
[2024-03-09] MEDS: Multivitamin (Healthy Eyes) Capsule 1 CAP PO (09:44)
[2024-03-09] MEDS: APIXABAN 5 MG TABLET PO ×2 (09:44→21:44)
[2024-03-09] MEDS: Lactobacillis Acidophilus 1 CAP PO ×2 (09:44→21:44)
[2024-03-09] MEDS: DULoxetine Hcl 60 MG Capsule 120 MG PO (09:44)
[2024-03-09] MEDS: Empagliflozin 25 MG Tablet 12.5 MG PO (09:44)
[2024-03-09] MEDS: Doxycycline 100 MG CAPSULE PO ×2 (09:44→21:42)
[2024-03-09] MEDS: Cholecalciferol (VIT D3) 25 MCG TABLET (1,000 UNITS) PO (09:44)
[2024-03-09] MEDS: Cephalexin 500 MG Capsule PO ×2 (09:44→21:42)
[2024-03-09] MEDS: Methocarbamol 750 MG Tablet PO ×2 (09:44→21:43)
[2024-03-09] MEDS: Senna/Docusate Sodium 1 Tablet 2 TABLET PO ×2 (09:44→21:43)
[2024-03-09] MEDS: Dofetilide 250 MCG Capsule PO ×2 (09:44→21:43)
[2024-03-09] MEDS: Arthritis Pain Compound 60 CLICK TUBE TOPICAL ×2 (09:45→21:42)
[2024-03-09] MEDS: Menthol/Lanolin/Calamine/Znox 113 GM Tube 1 APPLIC TOPICAL ×2 (09:45→23:00)
[2024-03-09] MEDS: Lidocaine 5% Patch 2 PATCH TOPICAL (09:45)
[2024-03-09] MEDS: Umeclidinium Brm/Vilanterol 62.5-25 mcg Inh 1 PUFF INHALATION (09:46)
[2024-03-09 09:47] VITALS: BP 126/74; PULSE 74
[2024-03-09] MEDS: Metoprolol(XL)Succ 25 MG Tablet PO (09:47)
[2024-03-09] MEDS: Finasteride 5 MG Tablet PO (09:48)
[2024-03-09] MEDS: Nystatin Powder 15gm Bottle 1 APPLIC TOPICAL ×2 (09:48→22:59)
[2024-03-09 10:25] VITALS: BP 126/74; PULSE 74; RESP 18; TEMP 36.9; O2SAT 97
[2024-03-09 14:43] VITALS: BP 104/60; PULSE 68
[2024-03-09 17:12] VITALS: BP 99/57; PULSE 65
[2024-03-09] MEDS: Midodrine HCl 5 MG Tablet PO (17:12)
[2024-03-09] MEDS: Tuberculin,Purif.prot.deriv. 50 TU/ML Vial 0.1 ML ID (18:21)
[2024-03-09] MEDS: LORazepam 0.5 MG Tablet PO (21:42)
[2024-03-09] MEDS: Mirtazapine 15 MG Tablet 7.5 MG PO (21:45)
[2024-03-09] MEDS: Atorvastatin Calcium 10 MG Tablet PO (21:46)
[2024-03-09] MEDS: Tamsulosin HCl 0.4 MG Capsule 0.8 MG PO (21:46)
[2024-03-09] MEDS: Ezetimibe 10 MG Tablet PO (21:47)
[2024-03-09] MEDS: oxyCODONE 5 MG Tablet PO (22:58)
[2024-03-10] MEDS: Pantoprazole Sodium 40 MG Tablet PO (06:23)
[2024-03-10] MEDS: Sucralfate 1 GM Tablet PO ×2 (06:23→17:45)
[2024-03-10] MEDS: Lactobacillis Acidophilus 1 CAP PO ×2 (08:07→21:02)
[2024-03-10] MEDS: DULoxetine Hcl 60 MG Capsule 120 MG PO (08:07)
[2024-03-10] MEDS: Doxycycline 100 MG CAPSULE PO ×2 (08:07→21:02)
[2024-03-10] MEDS: Cephalexin 500 MG Capsule PO ×2 (08:07→21:02)
[2024-03-10] MEDS: Finasteride 5 MG Tablet PO (08:08)
[2024-03-10] MEDS: Multivitamin (Healthy Eyes) Capsule 1 CAP PO (08:08)
[2024-03-10] MEDS: Lidocaine 5% Patch 2 PATCH TOPICAL (08:08)
[2024-03-10] MEDS: APIXABAN 5 MG TABLET PO ×2 (08:08→21:02)
[2024-03-10] MEDS: Cholecalciferol (VIT D3) 25 MCG TABLET (1,000 UNITS) PO (08:09)
[2024-03-10] MEDS: Methocarbamol 750 MG Tablet PO ×2 (08:09→21:02)
[2024-03-10] MEDS: Empagliflozin 25 MG Tablet 12.5 MG PO (08:09)
[2024-03-10] MEDS: guaiFENesin 1,200 MG Tablet 1200 MG PO ×2 (08:10→21:02)
[2024-03-10] MEDS: Senna/Docusate Sodium 1 Tablet 2 TABLET PO ×2 (08:11→21:01)
[2024-03-10] MEDS: Dofetilide 250 MCG Capsule PO ×2 (08:12→21:02)
[2024-03-10] MEDS: Arthritis Pain Compound 60 CLICK TUBE TOPICAL ×2 (08:13→21:06)
[2024-03-10] MEDS: Umeclidinium Brm/Vilanterol 62.5-25 mcg Inh 1 PUFF INHALATION (08:14)
[2024-03-10 08:17] VITALS: BP 100/60; PULSE 81; RESP 18; TEMP 36.8; O2SAT 94
[2024-03-10] MEDS: Midodrine HCl 5 MG Tablet PO ×2 (08:17→17:45)
[2024-03-10] MEDS: Metoprolol(XL)Succ 25 MG Tablet PO (08:17)
[2024-03-10] MEDS: Menthol/Lanolin/Calamine/Znox 113 GM Tube 1 APPLIC TOPICAL ×2 (08:18→21:06)
[2024-03-10] MEDS: Nystatin Powder 15gm Bottle 1 APPLIC TOPICAL ×2 (08:18→21:06)
[2024-03-10 08:20] VITALS: PULSE 93; RESP 18; O2SAT 97
[2024-03-10] MEDS: Budesonide Respules 0.5 MG/2 ML AMPUL.NEB. INHALATION (08:20)
--- NOTE | 2024-03-10 09:20 | MDS.RN ---
Information for the MDS was obtained from review of the clinical record, interview of resident, staff, and direct observation of resident?s care.
[2024-03-10 14:46] VITALS: BP 106/66
--- NOTE | 2024-03-10 15:27 | NURSING ---
VM left with PCP office regarding Vaccine hx @ 1416 this date.
--- NOTE | 2024-03-10 16:48 | CASEMGMT ---
Social Work Insurance issued [employer] with last covered day of 03/12 and discharge of 03/13. SW met with pt and updated and pt is agreeable to dc on 03/13. Pt plans to return home with his with and with the assistance of his dgt Cathi. With pt permission, phone call to Lala and updated on insurance non coverage. Lala agreeable to pt dc home on 03/13. Pt and Lala requesting resumption of home health care from [facility] (PT/OT/SN). Referral to [facility]. Discharge Date: 03/13/24 Discharge Disposition: Home with Home Health Services PT/OT/SN KAITLYN Valle
--- NOTE | 2024-03-10 17:42 | NURSING ---
pt c/o puffy feet, message left for Dr Birch, pt daughter reports he takes water pill PRN at home if swelling. pt encouraged to elevate feet when in bed at night above the heart and when sitting in recliner chair. made pt a daily weight.
[2024-03-10 17:44] VITALS: BMI 25.8
[2024-03-10 20:15] VITALS: PULSE 71; RESP 16
[2024-03-10 20:55] VITALS: BP 138/57; PULSE 66; RESP 18; O2SAT 95
[2024-03-10] MEDS: Atorvastatin Calcium 10 MG Tablet PO (21:01)
[2024-03-10] MEDS: LORazepam 0.5 MG Tablet PO (21:02)
[2024-03-10] MEDS: Mirtazapine 15 MG Tablet 7.5 MG PO (21:02)
[2024-03-10] MEDS: Ezetimibe 10 MG Tablet PO (21:02)
[2024-03-10] MEDS: Tamsulosin HCl 0.4 MG Capsule 0.8 MG PO (21:02)
[2024-03-11] MEDS: oxyCODONE 5 MG Tablet PO ×2 (01:18→23:12)
[2024-03-11 06:00] VITALS: BMI 25.6
[2024-03-11] MEDS: Sucralfate 1 GM Tablet PO ×2 (06:34→16:22)
[2024-03-11] MEDS: Pantoprazole Sodium 40 MG Tablet PO (06:34)
[2024-03-11 07:50] VITALS: PULSE 71; RESP 20; O2SAT 95
[2024-03-11] MEDS: Budesonide Respules 0.5 MG/2 ML AMPUL.NEB. INHALATION (07:50)
[2024-03-11 10:00] VITALS: PULSE 70; RESP 16
[2024-03-11] MEDS: Multivitamin (Healthy Eyes) Capsule 1 CAP PO (10:02)
[2024-03-11] MEDS: Methocarbamol 750 MG Tablet PO ×2 (10:02→23:00)
[2024-03-11] MEDS: Lactobacillis Acidophilus 1 CAP PO ×2 (10:02→22:56)
[2024-03-11] MEDS: Cephalexin 500 MG Capsule PO (10:02)
[2024-03-11] MEDS: Finasteride 5 MG Tablet PO (10:02)
[2024-03-11] MEDS: Dofetilide 250 MCG Capsule PO ×2 (10:02→23:04)
[2024-03-11] MEDS: APIXABAN 5 MG TABLET PO ×2 (10:02→22:59)
[2024-03-11] MEDS: Cholecalciferol (VIT D3) 25 MCG TABLET (1,000 UNITS) PO (10:03)
[2024-03-11] MEDS: Empagliflozin 25 MG Tablet 12.5 MG PO (10:03)
[2024-03-11] MEDS: DULoxetine Hcl 60 MG Capsule 120 MG PO (10:03)
[2024-03-11] MEDS: Lidocaine 5% Patch 2 PATCH TOPICAL (10:04)
[2024-03-11] MEDS: Doxycycline 100 MG CAPSULE PO (10:04)
[2024-03-11] MEDS: Midodrine HCl 5 MG Tablet PO (10:04)
[2024-03-11] MEDS: Senna/Docusate Sodium 1 Tablet 2 TABLET PO (10:04)
[2024-03-11 10:05] VITALS: PULSE 71
[2024-03-11] MEDS: Nystatin Powder 15gm Bottle 1 APPLIC TOPICAL ×2 (10:05→22:58)
[2024-03-11] MEDS: guaiFENesin 1,200 MG Tablet 1200 MG PO ×2 (10:05→23:00)
[2024-03-11] MEDS: Metoprolol(XL)Succ 25 MG Tablet PO (10:05)
[2024-03-11] MEDS: Umeclidinium Brm/Vilanterol 62.5-25 mcg Inh 1 PUFF INHALATION (10:06)
[2024-03-11] MEDS: Arthritis Pain Compound 60 CLICK TUBE TOPICAL ×2 (10:06→22:54)
[2024-03-11] MEDS: Polyethylene Glycol 3350 17 GM PACKET PO (10:06)
[2024-03-11] MEDS: Menthol/Lanolin/Calamine/Znox 113 GM Tube 1 APPLIC TOPICAL ×2 (10:07→22:58)
--- NOTE | 2024-03-11 12:22 | CASEMGMT ---
Plan of care meeting held today with pt and dgt Rhonda present. PT/OT discussed pt progress with therapy. Insurance has set a discharge date of 03/13/24 and pt and family agreeable to discharge on this date. Family to transport pt home and pt will be discharging home with and assistance of dgt. Pt has all needed DME. Phone call placed to follow up on referral to [facility] and they are able to accept pt with start of care on Wednesday 03/14. Discharge Date: 03/13/24 Discharge Disposition: Home with , [facility] health PT/OT/KAITLYN Glass
[2024-03-11] MEDS: Potassium Chloride Oral Tablet 20 MEQ 40 MEQ PO (12:53)
[2024-03-11 16:00] VITALS: BP 103/63; PULSE 72; RESP 20; TEMP 36.3; O2SAT 96
[2024-03-11] MEDS: Bumetanide 0.5 MG Tablet 1 MG PO (16:22)
[2024-03-11] MEDS: 0.9% Saline Lock 10 ML Syringe IV (22:52)
[2024-03-11] MEDS: LORazepam 0.5 MG Tablet PO (22:57)
[2024-03-11] MEDS: Tamsulosin HCl 0.4 MG Capsule 0.8 MG PO (22:59)
[2024-03-11] MEDS: Atorvastatin Calcium 10 MG Tablet PO (23:00)
[2024-03-11] MEDS: Ezetimibe 10 MG Tablet PO (23:01)
[2024-03-11] MEDS: Mirtazapine 15 MG Tablet 7.5 MG PO (23:02)
[2024-03-12 06:00] VITALS: BMI 25.2
[2024-03-12] MEDS: Sucralfate 1 GM Tablet PO ×2 (06:16→16:39)
[2024-03-12] MEDS: Pantoprazole Sodium 40 MG Tablet PO (06:16)
[2024-03-12 06:36] LABS: Anion Gap 6 (5-15); BUN 15 mg/dL (7-18); BUN/Creat Ratio 17.4 RATIO (10-20); Calcium,Total 8.9 mg/dL (8.5-10.1); Chloride 105 mmol/L (98-107); Creatinine, Serum 0.86 mg/dL (0.70-1.30); EST Glomerular Filtration Rate 90 mL/min (>60); Est Glom Filt Rate - Afr Amer 108 mL/min (>60); Estimated Creatinine Clearance 60.76 ml/min; Glucose 98 mg/dL (74-106); Magnesium 1.9 mg/dL (1.6-2.6); Potassium 3.8 mmol/L (3.5-5.1); Sodium Level 140 mmol/L (136-145)
[2024-03-12 07:15] VITALS: PULSE 76; RESP 18
[2024-03-12] MEDS: levalbuterol HCL 0.63 MG/3 ML VIAL.NEB INHALATION (07:16)
[2024-03-12] MEDS: Budesonide Respules 0.5 MG/2 ML AMPUL.NEB. INHALATION (07:16)
[2024-03-12 09:03] VITALS: BP 100/57; PULSE 80
[2024-03-12] MEDS: DULoxetine Hcl 60 MG Capsule 120 MG PO (09:03)
[2024-03-12] MEDS: Metoprolol(XL)Succ 25 MG Tablet PO (09:03)
[2024-03-12] MEDS: Lactobacillis Acidophilus 1 CAP PO ×2 (09:03→22:51)
[2024-03-12] MEDS: guaiFENesin 1,200 MG Tablet 1200 MG PO ×2 (09:03→22:53)
[2024-03-12] MEDS: Cholecalciferol (VIT D3) 25 MCG TABLET (1,000 UNITS) PO (09:03)
[2024-03-12] MEDS: Empagliflozin 25 MG Tablet 12.5 MG PO (09:03)
[2024-03-12] MEDS: APIXABAN 5 MG TABLET PO ×2 (09:04→22:52)
[2024-03-12] MEDS: Dofetilide 250 MCG Capsule PO ×2 (09:04→22:55)
[2024-03-12] MEDS: Finasteride 5 MG Tablet PO (09:04)
[2024-03-12] MEDS: Multivitamin (Healthy Eyes) Capsule 1 CAP PO (09:04)
[2024-03-12] MEDS: Arthritis Pain Compound 60 CLICK TUBE TOPICAL ×2 (09:04→22:50)
[2024-03-12] MEDS: Methocarbamol 750 MG Tablet PO ×2 (09:04→22:53)
[2024-03-12] MEDS: Umeclidinium Brm/Vilanterol 62.5-25 mcg Inh 1 PUFF INHALATION (09:04)
[2024-03-12] MEDS: Nystatin Powder 15gm Bottle 1 APPLIC TOPICAL ×2 (09:05→22:53)
[2024-03-12] MEDS: Menthol/Lanolin/Calamine/Znox 113 GM Tube 1 APPLIC TOPICAL ×2 (09:05→22:51)
[2024-03-12] MEDS: Lidocaine 5% Patch 2 PATCH TOPICAL (09:05)
--- NOTE | 2024-03-12 10:52 | PCM.PROGNOTE ---
Subjective Subjective Asked by nursing to see this patient for increased peripheral edema. Weight is up 4 pounds since admission to TCU. Urine outputs are not being recorded. Weight is down 3 pounds since yesterday. Oral fluid intake is being recorded are all less than 800 daily. Accuracy? [facility] was reviewed. He has a hx of diastolic CHF and at home he weighs himself daily and takes Bumex if the weight goes up by 3 or more lbs. Last echo (2018) showed a normal ejection fraction but stage II diastolic dysfunction. Recent blood pressures have ranged from 99/57 to 138/57. Heart rate has been within normal limits. He was given 1 mg of Bumex yesterday. Has not had a weight done today. All lab drawn this a.m. was personally reviewed. Sodium is stable at 140 and the potassium following supplementation yesterday is 3.8. Serum bicarb is normal at 28. The BUN is stable at 15 and the creatinine today is 0.86 which is within his baseline. Magnesium is normal at 1.9. Objective Data Objective Data Vital Signs: Vital Signs Temp Pulse Resp BP Pulse Ox O2 Del Method O2 Flow Rate 97.4 F L 80 18 100/57 L 96 Room Air 3 03/11/24 16:00 03/12/24 09:03 03/12/24 07:15 03/12/24 09:03 03/11/24 16:00 03/11/24 16:00 03/06/24 07:30 Oxygen Flow Rate (L/min) 3 Oxygen Delivery Method Room Air Weight: 169 lb 5 oz Body Mass Index (BMI) 25.6 Intake & Output: Intake and Output for Last 24 Hours 03/10/24 03/11/24 03/12/24 23:59 23:59 23:59 Intake Total 720 / 720 600 / 600 480 / 480 Output Total 400 / 400 Balance 720 / 720 600 / 600 80 / 80 Lab / Micro Data 03/09/24 04:38 03/12/24 05:09 Labs: Laboratory Results - last 24 hr 03/12/24 05:09: Sodium 140, Potassium 3.8, Chloride 105, Carbon Dioxide 28.0, Anion Gap 6, BUN 15, Creatinine 0.86, Estim Creat Clear Calc 60.76, Est GFR (MDRD) Af Amer 108, Est GFR (MDRD) Non-Af 90, BUN/Creatinine Ratio 17.4, Glucose 98, Calcium 8.9, Magnesium 1.9 Micro: Microbiology 03/07/24 08:47 Nasal Secretion SARS-CoV-2 Antigen (Rapid) - Final Physical Exam Const alert General Appearance: cooperative HEENT normocephalic Resp normal respiratory effort, normal air movement and clear to auscultation bilaterally Resp Narrative: No conversational dyspnea Effort and Inspection: Negative for tachypneic Cardio regular rate and regular rhythm GI normal to inspection, nondistended, normoactive bowel sounds and non-tender Extremity normal capillary refill Extremity Narrative: He still has some pitting edema but it is much better than yesterday. It is primarily in the distal lower extremity/ankle today. Skin no rashes or lesions noted General Skin Exam: no breakdown Psych affect normal Appearance: appropriate Assessment & Plan Assessment/Plan (1) (HFpEF) heart failure with preserved ejection fraction: QUALIFIERS: Heart failure chronicity: acute on chronic Qualified Code(s): I50.33 - Acute on chronic diastolic (congestive) heart failure PLAN: Lower extremity edema is better after the Bumex 1 mg yesterday and his weight is down 3 pounds. (2) Grade II diastolic dysfunction: (3) Hypokalemia: PLAN: K is 3.8 today following supplementation yesterday. (4) Paroxysmal atrial fibrillation: PLAN: Plan 1. Bumex 1 mg p.o. today 2. Potassium chloride 20 mEq every 4 hours x 2 doses DC scheduled to home tomorrow Will resume daily weights at home and take Bumex IF the weight increases by greater than or equal to 3 pounds. Charges/Coding Visit Charges Inpatient E&M: 62356 SNF Subs L1
--- NOTE | 2024-03-12 13:05 | PCM.DC ---
Discharge Instructions Diet Discharge Diet: - (Low-salt, low-fat) DC O2, CPAP, BIPAP needs Home O2 Discharge instructions: No Dressing / Incision Discharge Activity: May Shower and Use Walker Weight Bearing Status: Full weight bearing Keep extremity elevated above heart level: Legs Dressing / Incision Call your doctor if you observe: Fever of 101 or Higher, Inability to urinate, Shortness of breath, Dizziness, Fainting spells, Chest pain, Increased palpitations (irregular heartbeat) and - (STROKE symptoms: facial droop, slurred speech, inability to get words out, weakness on 1 side of the body and not the other, numbness on 1 side of the body and not the other, inability to maintain your balance sitting or standing, vertigo. ) Follow Up Care Please Follow Up With: Arnulfo Rascon MD When: within 10-14 days after discharge Test Results: Test results from this visit will be discussed in further detail at your follow-up appointment, if applicable. Pending Tests Upon Discharge: none Discharge Plan Admission Admit Date/Time: 03/01/24 19:25 Primary Reason for Your Visit: Debility Attending Provider: Parrish Shah Chi Primary Care Provider: Arnulfo Rascon Instructions Additional Instructions / Restrictions: 1. You should resume weighing yourself daily and take Bumex 1 mg If the weight increases by 3 lbs or more. Discharge Orders/Prescriptions Prescriptions: New cholecalciferol (vitamin D3) 25 mcg (1,000 unit) Tablet 25 mcg PO DAILYCM Qty: 90 0RF Continued rosuvastatin [Crestor] 5 mg tablet 5 mg PO QDAY metoprolol succinate 25 mg tablet extended release 24 hr 25 mg PO DAILY nitroglycerin 0.4 mg tablet, sublingual 0.4 mg sublingual Q5M PRN (Reason: CP) Rx Instructions: do not exceed 3 doses per episode dofetilide 250 mcg capsule 250 mcg PO Q12H Patient Comments: TAKE 1 CAPSULE BY MOUTH EVERY 12 HOURS midodrine 5 mg tablet 5 mg PO 1000,1400,1800 Patient Comments: Takes in the morning and evening and the afternoon dose is PRN if he needs it. Rx Instructions: HOLD if SBP >100 finasteride 5 mg tablet 5 mg PO DAILY Patient Comments: take 1 tablet by mouth once daily duloxetine 60 mg capsule,delayed release(DR/EC) See Rx Instructions PO DAILY Rx Instructions: 60 mg (2 caps) orally daily; Jardiance 25 mg tablet 12.5 mg PO DAILY levalbuterol HCl 0.63 mg/3 mL solution for nebulization 0.63 mg INHALATION TID Patient Comments: USE 1 VIAL 3 TIMES A DAY ICaps AREDS2 250 mg-200 unit -12.5 mg-1 mg capsule 1 cap PO DAILY lorazepam 0.5 mg Tablet 0.5 mg PO QHS Qty: 5 0RF Eliquis 5 mg Tablet 5 mg PO BID Qty: 0 0RF pantoprazole 40 mg tablet,delayed release (DR/EC) 40 mg PO DAILY Patient Comments: take 1 tablet by mouth twice a day take before meals Rx Instructions: Before meals ezetimibe 10 mg tablet 10 mg PO QHS guaifenesin [Mucinex] 1,200 mg tablet extended release 12hr 1,200 mg PO BID Stiolto Respimat 2.5-2.5 mcg/actuation mist 2 inh inhalation DAILY Lactobacillus acidoph-L.bulgar [Floranex] 100 million cell granules in packet 1 packet PO TIDCM tamsulosin 0.4 mg Capsule 0.8 mg PO DINNER methocarbamol 750 mg tablet 750 mg PO BID Rx Instructions: for neck pain sucralfate [Carafate] 100 mg/mL suspension 1 g PO BID mirtazapine 15 mg Tablet 7.5 mg PO QHS Qty: 0 0RF sennosides-docusate sodium [Senna-S] 8.6-50 mg tablet 2 tab-cap PO BID polyethylene glycol 3350 17 gram/dose powder 17 g PO DAILY lidocaine 4 % adhesive patch,medicated 2 patch topical DAILY Rx Instructions: may leave on for up to 12 hrs budesonide 0.5 mg/2 mL Suspension For Nebulization 0.5 mg inhalation DAILY bumetanide 0.5 mg Tablet 1 mg PO MOWEFR PRN (Reason: EDEMA) Qty: 1 0RF oxycodone 5 mg tablet 5 mg PO Q8H PRN (Reason: pain) 7 Days Qty: 10 0RF Rx Instructions: Take as needed for up to 3 days (ends 03/03/24). Do not give with SBP < 90. Discontinued mirtazapine 15 mg tablet 15 mg PO QHS Qty: 30 0RF acetaminophen 500 mg tablet 1,000 mg PO Q8 econazole 1 % cream 1 applic topical DAILY PRN (Reason: fungal cream) ketoconazole 2 % cream 1 applic topical DAILY PRN (Reason: fungal cream) cholecalciferol (vitamin D3) 25 mcg (1,000 unit) tablet 5,000 unit PO DAILY Referrals / Follow Up: Aleksandra Izquierdo MD [Non-Staff] - (03/11 called office twice, no answer. Please call to schedule appt) Arnulfo Rascon MD [Primary Care Provider] - (frances will make appt ) Disposition Disposition (needs filled in before D/C Order can be placed): Home, Self Care
[2024-03-12] MEDS: Potassium Chloride Oral Tablet 20 MEQ PO ×2 (13:06→16:39)
--- NOTE | 2024-03-12 13:32 | DS.PCM_ITS ---
Providers Date of Admission: 03/01/24 Date of Discharge: 03/13/24 Primary Care Physician: Dr. Arnulfo Rascon MD Reason For Visit: ACUTE ACALCULOUS CHOLECYSTITIS, CHOLECYSTECTO Diagnosis Discharge Diagnosis (1) Debility: Status: Acute Code(s): R53.81 - Other malaise (2) Acalculous cholecystitis: Status: Acute Code(s): K81.9 - Cholecystitis, unspecified (3) Status post cholecystectomy: Status: Acute Code(s): Z90.49 - Acquired absence of other specified parts of digestive tract (4) (HFpEF) heart failure with preserved ejection fraction: Status: Acute Code(s): I50.30 - Unspecified diastolic (congestive) heart failure Qualifiers: Heart failure chronicity: acute on chronic Qualified Code(s): I50.33 - Acute on chronic diastolic (congestive) heart failure Plan: Lower extremity edema is better after the Bumex 1 mg yesterday and his weight is down 3 pounds. (5) Grade II diastolic dysfunction: Status: Acute Code(s): I51.89 - Other ill-defined heart diseases (6) Hypokalemia: Status: Acute Code(s): E87.6 - Hypokalemia Plan: K is 3.8 today following supplementation yesterday. (7) Paroxysmal atrial fibrillation: Status: Chronic Code(s): I48.0 - Paroxysmal atrial fibrillation (8) Hypothyroidism: Status: Acute Code(s): E03.9 - Hypothyroidism, unspecified Qualifiers: Hypothyroidism type: unspecified Qualified Code(s): E03.9 - Hypothyroidism, unspecified (9) Orthostatic hypotension: Status: Acute Code(s): I95.1 - Orthostatic hypotension (10) Atrial fibrillation: Status: Acute Code(s): I48.91 - Unspecified atrial fibrillation Qualifiers: Atrial fibrillation type: unspecified chronic Qualified Code(s): I48.20 - Chronic atrial fibrillation, unspecified (11) Coronary artery disease: Status: Acute Code(s): I25.10 - Atherosclerotic heart disease of [place] coronary artery without angina pectoris Qualifiers: Coronary Disease-Associated Artery/Lesion type: unspecified vessel or lesion type [place] vs. transplanted heart: [place] heart Associated angina: w ithout angina Qualified Code(s): I25.10 - Atherosclerotic heart disease of [place] coronary artery without angina pectoris (12) Depression: Status: Acute Code(s): F32.A - Depression, unspecified Qualifiers: Depression Type: unspecified Qualified Code(s): F32.A - Depression, unspecified (13) Anxiety: Status: Acute Code(s): F41.9 - Anxiety disorder, unspecified (14) COPD (chronic obstructive pulmonary disease): Status: Chronic Code(s): J44.9 - Chronic obstructive pulmonary disease, unspecified Qualifiers: COPD type: unspecified COPD Qualified Code(s): J44.9 - Chronic obstructive pulmonary disease, unspecified (15) BPH (benign prostatic hyperplasia): Status: Acute Code(s): N40.0 - Benign prostatic hyperplasia without lower urinary tract symptoms Qualifiers: Lower urinary tract symptom presence: unspecified whether lower urinary tract symptoms present Qualified Code(s): N40.0 - Benign prostatic hyperplasia without lower urinary tract symptoms (16) GERD (gastroesophageal reflux disease): Status: Acute Code(s): K21.9 - Gastro-esophageal reflux disease without esophagitis Qualifiers: Esophagitis presence: without esophagitis Qualified Code(s): K21.9 - Gastro-esophageal reflux disease without esophagitis (17) Hyperlipidemia: Status: Chronic Code(s): E78.5 - Hyperlipidemia, unspecified Qualifiers: Hyperlipidemia type: unspecified Qualified Code(s): E78.5 - Hyperlipidemia, unspecified Plan 1. Bumex 1 mg p.o. today 2. Potassium chloride 20 mEq every 4 hours x 2 doses DC scheduled to home tomorrow Will resume daily weights at home and take Bumex IF the weight increases by greater than or equal to 3 pounds. Medications at Discharge Home Medications rosuvastatin 5 mg tablet (Crestor) 5 mg PO QDAY cholesterol 07/04/17 metoprolol succinate 25 mg tablet,extended release 24 hr 25 mg PO DAILY AFIB 06/27/21 nitroglycerin 0.4 mg sublingual tablet 0.4 mg sublingual Q5M PRN CP 06/27/21 dofetilide 250 mcg capsule 250 mcg PO Q12H afib 03/29/23 duloxetine 60 mg capsule,delayed release See Rx Instructions PO DAILY mood 03/29/23 empagliflozin 25 mg tablet (Jardiance) 12.5 mg PO DAILY heart 03/29/23 finasteride 5 mg tablet 5 mg PO DAILY bph 03/29/23 levalbuterol HCl 0.63 mg/3 mL solution for nebulization 0.63 mg inhalation TID copd 03/29/23 midodrine 5 mg tablet 5 mg PO 1000,1400,1800 blood pressure 03/29/23 vit C 250 mg-vit E 200 unit-zinc ox 12.5 fr-qktyfu-mpjlma-zeax capsule (ICaps AREDS2) 1 cap PO DAILY supplement 03/29/23 lorazepam 0.5 mg tablet 0.5 mg PO QHS Anxiety #5 tabs 04/01/23 apixaban 5 mg tablet (Eliquis) 5 mg PO BID BLOOD THINNER #0 tabs 04/10/23 ezetimibe 10 mg tablet 10 mg PO QHS cholesterol 10/24/23 guaifenesin 1,200 mg tablet, extended release 12 hr (Mucinex) 1,200 mg PO BID mucus relief 10/24/23 pantoprazole 40 mg tablet,delayed release 40 mg PO DAILY GERD 10/24/23 tiotropium 2.5 mcg-olodaterol 2.5 mcg/actuation mist for inhalation (Stiolto Respimat) 2 inh inhalation DAILY COPD 10/24/23 methocarbamol 750 mg tablet 750 mg PO BID Muscle Relaxer 11/20/23 sucralfate 100 mg/mL oral suspension (Carafate) 1 g PO BID antacid 11/20/23 Lactobacillus acidophilus, bulgaricus 100 million cell granules packet (Floranex) 1 packet PO TIDCM supplement 12/23/23 tamsulosin 0.4 mg capsule 0.8 mg PO DINNER bph 12/23/23 mirtazapine 15 mg tablet 7.5 mg (1/2 x 15 mg) PO QHS #0 tabs 01/22/24 budesonide 0.5 mg/2 mL suspension for nebulization 0.5 mg inhalation DAILY Asthma 03/01/24 lidocaine 4 % topical patch 2 patch topical DAILY pain 03/01/24 polyethylene glycol 3350 17 gram/dose oral powder 17 g PO DAILY laxative 03/01/24 sennosides 8.6 mg-docusate sodium 50 mg tablet (Senna-S) 2 tab-cap PO BID stool softener 03/01/24 bumetanide 0.5 mg tablet 1 mg (2 x 0.5 mg) PO MOWEFR PRN EDEMA #1 TAB 03/12/24 cholecalciferol (vitamin D3) 25 mcg (1,000 unit) tablet 25 mcg PO DAILYCM #90 tabs 03/12/24 oxycodone 5 mg tablet 5 mg PO Q8H PRN pain 7 days #10 tabs 03/12/24 Hospital Course Operations cholecystecomy (At [facility] by Dr. Izquierdo) Procedures None Summary of Care Provided Minutes Spent on Discharge: 30 Hospital Course: HPI Daniela DORAN, is a 83 Male who presented with followin02/24/2024 Admit to [facility]. 02/24/2024 Dr. Izquierdo performed laparoscopic converted to open cholecystectomy, gallbladder crumbled with black gallstones. 02/25/2024 Pain poorly controlled, passing minimal gas, no bowel movement. Intermittent nausea, no vomiting. Advance to regular diet. PT/OT. 02/26/2024 Surgical site tenderness with movement. Poor appetite. Midodrine PRN low blood pressure. Lovenox for DVT prophylaxis. 02/27/2024 Right side/flank pain, sitting up in chair, pain resolved. No bowel movement yet. Tylenol, Robaxin, Fentanyl, Oxycodone, pain management for pain. Remove ALEXANDER drain. Consider CT A/P if pain persists. Delirium protocol per geriatric consultation. 02/28/2024 RUQ pain worse with movement and cough. Bloated, small liquid bowel movement. Mobility poor. Atrial fibrillation with RVR last night. CT A/P showed large amount of stool. 02/29/2024 Pain improved with Toradol, feeling better. PT/OT SNF. 03/01/2024 Admit to TCU with debility, here for rehabilitation, strengthening, prior to discharge home with . Complications while on TCU included acute on chronic diastolic CHF. Treated with Bumex X 2 doses [facility] He weighs himself daily at home and takes Bumex 1 mg if his weight is greater than or equal to 3 pounds up. He had hypokalemia with a potassium of 3.3 on 03/09/2024 and this was supplemented. Potassium on 03/12/2024 was 3.8. Creatinine is stable at 0.86 at the time of discharge with a BUN of 15. Magnesium was 1.9. Prior to discharge he had ambulated up to 200 feet at standby assist with a front wheeled walker. He is able to complete transfers from various surfaces at supervision. He can do 11 sit to stands in 30 seconds using the bilateral upper extremities to rise. He can a send/descend 5 steps with bilateral handrails at [facility]. He is supervision/set up with eating and grooming. He is standby assist with upper body dressing, toileting and toilet transfer. He is contact-guard assist for lower body dressing and bathing. He was discharged home on 03/13/2024 with [facility] and home health services. He will follow up with Dr. Rascon within 10-14 days and will also need to follow up with Dr. Izquierdo and cardiology. Physical Exam Const alert General Appearance: cooperative HEENT normocephalic Resp normal respiratory effort, normal air movement and clear to auscultation bilaterally Resp Narrative: No conversational dyspnea Effort and Inspection: Negative for tachypneic Cardio regular rate and regular rhythm GI normal to inspection, nondistended, normoactive bowel sounds and non-tender Extremity normal capillary refill Extremity Narrative: He still has some pitting edema but it is much better than yesterday. It is primarily in the distal lower extremity/ankle today. Skin no rashes or lesions noted General Skin Exam: no breakdown Psych affect normal Appearance: appropriate Weight / BMI Weight Weight: 166 lb 1.6 oz Body Mass Index (BMI) 25.2 ABG / Lab / Microbiology Data 03/09/24 04:38 03/12/24 05:09 Laboratory: Laboratory Results - last 24 hr 03/12/24 05:09: Sodium 140, Potassium 3.8, Chloride 105, Carbon Dioxide 28.0, Anion Gap 6, BUN 15, Creatinine 0.86, Estim Creat Clear Calc 60.76, Est GFR (MDRD) Af Amer 108, Est GFR (MDRD) Non-Af 90, BUN/Creatinine Ratio 17.4, Glucose 98, Calcium 8.9, Magnesium 1.9 Microbiology: Microbiology 03/07/24 08:47 Nasal Secretion SARS-CoV-2 Antigen (Rapid) - Final D/C Instructions Discharge Diet: - (Low-salt, low-fat) Weight Bearing Status: Full weight bearing Keep extremity elevated above heart level: Legs Call your doctor if you observe: Fever of 101 or Higher, Inability to urinate, Shortness of breath, Dizziness, Fainting spells, Chest pain, Increased palpitations (irregular heartbeat) and - (STROKE symptoms: facial droop, slurred speech, inability to get words out, weakness on 1 side of the body and not the other, numbness on 1 side of the body and not the other, inability to maintain your balance sitting or standing, vertigo. ) DC O2, CPAP, BIPAP Needs Home O2 Discharge instructions: No Pending Tests Upon Discharge: none Please Follow Up With: Arnulfo Rascon MD When: within 10-14 days after discharge Meaningful Use Info Meaningful Use Meaningful Use Diagnoses (Choose all that apply): CHF CHF LANA/ARB ordered at discharge?: No Reason LANA/ARB not ordered?: Normal EF Documented LVEF (%): 65 Ischemic Stroke Statin Dosing Therapy Reference: STATIN DOSE THERAPY REFERENCE: * Patients > 75 years receive moderate or high dose statin therapy. * Patients 75 years or YOUNGER should receive HIGH intensity statin dose unless contraindicated. You will be required to document reason for non-treatment if statin daily dose does not meet guidelines. HIGH DOSE STATIN THERAPY DAILY Atorvastatin > than or = to 40 mg Rosuvastatin > than or = to 20 mg Amlodipine + Atorvastatin > than or = to 2.5/40 mg Ezetimibe + Simvastatin 10/80 mg Simvastatin 80mg Discharge Plan Admission Admit Date/Time: 03/01/24 19:25 Primary Reason for Your Visit: Debility Attending Provider: Parrish Shah Chi Primary Care Provider: Arnulfo Rascon Instructions Additional Instructions / Restrictions: 1. You should resume weighing yourself daily and take Bumex 1 mg If the weight increases by 3 lbs or more. Discharge Orders/Prescriptions Prescriptions: New cholecalciferol (vitamin D3) 25 mcg (1,000 unit) Tablet 25 mcg PO DAILYCM Qty: 90 0RF Continued rosuvastatin [Crestor] 5 mg tablet 5 mg PO QDAY metoprolol succinate 25 mg tablet extended release 24 hr 25 mg PO DAILY nitroglycerin 0.4 mg tablet, sublingual 0.4 mg sublingual Q5M PRN (Reason: CP) Rx Instructions: do not exceed 3 doses per episode dofetilide 250 mcg capsule 250 mcg PO Q12H Patient Comments: TAKE 1 CAPSULE BY MOUTH EVERY 12 HOURS midodrine 5 mg tablet 5 mg PO 1000,1400,1800 Patient Comments: Takes in the morning and evening and the afternoon dose is PRN if he needs it. Rx Instructions: HOLD if SBP >100 finasteride 5 mg tablet 5 mg PO DAILY Patient Comments: take 1 tablet by mouth once daily duloxetine 60 mg capsule,delayed release(DR/EC) See Rx Instructions PO DAILY Rx Instructions: 60 mg (2 caps) orally daily; Jardiance 25 mg tablet 12.5 mg PO DAILY levalbuterol HCl 0.63 mg/3 mL solution for nebulization 0.63 mg INHALATION TID Patient Comments: USE 1 VIAL 3 TIMES A DAY ICaps AREDS2 250 mg-200 unit -12.5 mg-1 mg capsule 1 cap PO DAILY lorazepam 0.5 mg Tablet 0.5 mg PO QHS Qty: 5 0RF Eliquis 5 mg Tablet 5 mg PO BID Qty: 0 0RF pantoprazole 40 mg tablet,delayed release (DR/EC) 40 mg PO DAILY Patient Comments: take 1 tablet by mouth twice a day take before meals Rx Instructions: Before meals ezetimibe 10 mg tablet 10 mg PO QHS guaifenesin [Mucinex] 1,200 mg tablet extended release 12hr 1,200 mg PO BID Stiolto Respimat 2.5-2.5 mcg/actuation mist 2 inh inhalation DAILY Lactobacillus acidoph-L.bulgar [Floranex] 100 million cell granules in packet 1 packet PO TIDCM tamsulosin 0.4 mg Capsule 0.8 mg PO DINNER methocarbamol 750 mg tablet 750 mg PO BID Rx Instructions: for neck pain sucralfate [Carafate] 100 mg/mL suspension 1 g PO BID mirtazapine 15 mg Tablet 7.5 mg PO QHS Qty: 0 0RF sennosides-docusate sodium [Senna-S] 8.6-50 mg tablet 2 tab-cap PO BID polyethylene glycol 3350 17 gram/dose powder 17 g PO DAILY lidocaine 4 % adhesive patch,medicated 2 patch topical DAILY Rx Instructions: may leave on for up to 12 hrs budesonide 0.5 mg/2 mL Suspension For Nebulization 0.5 mg inhalation DAILY bumetanide 0.5 mg Tablet 1 mg PO MOWEFR PRN (Reason: EDEMA) Qty: 1 0RF oxycodone 5 mg tablet 5 mg PO Q8H PRN (Reason: pain) 7 Days Qty: 10 0RF Rx Instructions: Take as needed for up to 3 days (ends 03/03/24). Do not give with SBP < 90. Discontinued mirtazapine 15 mg tablet 15 mg PO QHS Qty: 30 0RF acetaminophen 500 mg tablet 1,000 mg PO Q8 econazole 1 % cream 1 applic topical DAILY PRN (Reason: fungal cream) ketoconazole 2 % cream 1 applic topical DAILY PRN (Reason: fungal cream) cholecalciferol (vitamin D3) 25 mcg (1,000 unit) tablet 5,000 unit PO DAILY Referrals / Follow Up: Aleksandra Izquierdo MD [Non-Staff] - (03/11 called office twice, no answer. Please call to schedule appt) Arnulfo Rascon MD [Primary Care Provider] - (frances will make appt ) Disposition Disposition (needs filled in before D/C Order can be placed): Home, Self Care Charges/Coding Visit Charges Inpatient E&M: 55821 SNF Disch
[2024-03-12 14:18] LABS: Hematocrit 30.2 % (40-54); Hemoglobin 9.6 g/dL (13.0-16.5)
[2024-03-12] MEDS: Bumetanide 0.5 MG Tablet 1 MG PO (14:28)
[2024-03-12 14:29] VITALS: BP 106/62; PULSE 71; RESP 16; TEMP 36.7; O2SAT 93
[2024-03-12] MEDS: Midodrine HCl 5 MG Tablet PO (16:39)
[2024-03-12 16:45] VITALS: BP 95/58; PULSE 70
[2024-03-12] MEDS: oxyCODONE 5 MG Tablet PO (22:48)
[2024-03-12] MEDS: LORazepam 0.5 MG Tablet PO (22:49)
[2024-03-12] MEDS: Tamsulosin HCl 0.4 MG Capsule 0.8 MG PO (22:52)
[2024-03-12] MEDS: Atorvastatin Calcium 10 MG Tablet PO (22:53)
[2024-03-12] MEDS: Mirtazapine 15 MG Tablet 7.5 MG PO (22:54)
[2024-03-12] MEDS: Ezetimibe 10 MG Tablet PO (22:56)
[2024-03-12] MEDS: Senna/Docusate Sodium 1 Tablet 2 TABLET PO (22:58)
[2024-03-13] MEDS: Sucralfate 1 GM Tablet PO (06:13)
[2024-03-13] MEDS: Pantoprazole Sodium 40 MG Tablet PO (06:14)
[2024-03-13 06:30] VITALS: PULSE 80; O2SAT 93
[2024-03-13 07:05] VITALS: PULSE 72; RESP 18; O2SAT 95
[2024-03-13] MEDS: Budesonide Respules 0.5 MG/2 ML AMPUL.NEB. INHALATION (07:05)
[2024-03-13 08:40] VITALS: BP 92/49; PULSE 75
[2024-03-13] MEDS: Methocarbamol 750 MG Tablet PO (08:40)
[2024-03-13] MEDS: Multivitamin (Healthy Eyes) Capsule 1 CAP PO (08:40)
[2024-03-13] MEDS: Finasteride 5 MG Tablet PO (08:40)
[2024-03-13] MEDS: Umeclidinium Brm/Vilanterol 62.5-25 mcg Inh 1 PUFF INHALATION (08:40)
[2024-03-13] MEDS: DULoxetine Hcl 60 MG Capsule 120 MG PO (08:40)
[2024-03-13] MEDS: Dofetilide 250 MCG Capsule PO (08:40)
[2024-03-13] MEDS: Senna/Docusate Sodium 1 Tablet 2 TABLET PO (08:40)
[2024-03-13] MEDS: Midodrine HCl 5 MG Tablet PO (08:40)
[2024-03-13] MEDS: APIXABAN 5 MG TABLET PO (08:40)
[2024-03-13] MEDS: Lactobacillis Acidophilus 1 CAP PO (08:40)
[2024-03-13] MEDS: Cholecalciferol (VIT D3) 25 MCG TABLET (1,000 UNITS) PO (08:40)
[2024-03-13] MEDS: Empagliflozin 25 MG Tablet 12.5 MG PO (08:41)
[2024-03-13] MEDS: guaiFENesin 1,200 MG Tablet 1200 MG PO (08:41)
[2024-03-13] MEDS: Nystatin Powder 15gm Bottle 1 APPLIC TOPICAL (08:41)
[2024-03-13] MEDS: Lidocaine 5% Patch 2 PATCH TOPICAL (08:41)
[2024-03-13] MEDS: Arthritis Pain Compound 60 CLICK TUBE TOPICAL (08:41)
[2024-03-13] MEDS: Menthol/Lanolin/Calamine/Znox 113 GM Tube 1 APPLIC TOPICAL (08:50)
[2024-03-13 10:47] VITALS: BP 113/62; PULSE 96
[2024-03-13] MEDS: Metoprolol(XL)Succ 25 MG Tablet PO (10:47)
[2024-03-13 11:54] VITALS: BP 113/62; PULSE 85; RESP 18; TEMP 36.3; O2SAT 95
== END 2024-03-13 11:25 | disposition home health service (06) | DRG 949 ==
PROVIDERS: Internal Medicine; Admitting Provider Family Medicine Geriatric Medicine; PCP Family Medicine; Visit Provider Family Medicine Geriatric Medicine
DX: Z48.815 Encounter for surgical aftercare following surgery on the digestive system (principal); I50.33 Acute on chronic diastolic (congestive) heart failure; T81.41XA Infection following a procedure, superficial incisional surgical site, initial encounter; J84.10 Pulmonary fibrosis, unspecified; J44.9 Chronic obstructive pulmonary disease, unspecified; F32.A Depression, unspecified; I48.0 Paroxysmal atrial fibrillation; K81.9 Cholecystitis, unspecified; M62.838 Other muscle spasm; I25.10 Atherosclerotic heart disease of native coronary artery without angina pectoris; K21.9 Gastro-esophageal reflux disease without esophagitis; I95.1 Orthostatic hypotension; F41.9 Anxiety disorder, unspecified; E78.5 Hyperlipidemia, unspecified; H35.30 Unspecified macular degeneration; E55.9 Vitamin D deficiency, unspecified; G47.33 Obstructive sleep apnea (adult) (pediatric); E87.6 Hypokalemia; N40.0 Benign prostatic hyperplasia without lower urinary tract symptoms; Z87.891 Personal history of nicotine dependence; Y83.6 Removal of other organ (partial) (total) as the cause of abnormal reaction of the patient, or of later complication, without mention of misadventure at the time of the procedure; Z90.49 Acquired absence of other specified parts of digestive tract; Z79.899 Other long term (current) drug therapy; Z79.01 Long term (current) use of anticoagulants
CPT/HCPCS: 36415; 80048; 83735; 85014; 85018; 85025; 87811; 94640; 97110; 97116; 97162; 97166; 97530; 97535; 97802; A4216

== ENCOUNTER → 2024-03-02 | Outpatient (CLI) | payer MEDICARE, SELFPAY ==
--- NOTE | 2024-03-02 11:28 | CT_ITS ---
STUDY: CTA CHEST REASON FOR EXAM: Male, 83 years old. HEMOPTYSIS RADIATION DOSAGE (If Supplied By Facility): CTDIvol = ( 11.26 ) mGy, DLP = ( 429.33 ) mGycm TECHNIQUE: The examination was performed with the intravenous administration of IV 75mL Isovue-370. Post-processing of the angiographic images was performed, with multiplanar reformation and 3D reconstruction. Individualized dose optimization techniques were used for this CT. COMPARISON: Comparison is made with prior study dated November 11, 2023. FINDINGS: Normal enhancement of the main pulmonary artery and right and left pulmonary arteries. Normal enhancement of the bilateral peripheral pulmonary arteries. There is no demonstrated pulmonary embolism. There is atherosclerotic calcification of the aortic arch with tortuosity. There is no demonstrated aortic dissection. There are calcifications of the coronary arteries. Normal mediastinum. Normal hilar regions. Normal visualized trachea and bronchi. The lungs are well expanded. The previously seen oblong complex collection in the left major fissure as decreased further in size. It presently measures 2.3 cm x 1.1 cm. It has become more uniform at this time. Stable scarring at the lung bases. There is a new 2.1 cm x 1 cm spiculated nodular density in the lateral aspect of the lingular segment of the left upper lobe as seen on axial image #128 and coronal image #190. A repeat CT scan in 3 months is recommended. Normal chest wall structures. There are degenerative changes of thoracic spine. The patient is status post cholecystectomy. CT/CTA Chest W/WO Contrast IMPRESSION: Further decrease in size of the oval soft tissue density in the left major fissure. It presently measures 2.3 cm x 1.1 cm. It is more uniform in appearance at this time. Stable scarring at the lung bases with bronchiectasis. New 2.1 cm x 1 cm spiculated nodular density lateral aspect of the lingular segment of the left upper lobe as described. Repeat CT scan recommended in 3 months. Electronically Signed: Chris Ventura MD at 15:07 EST ,
== END | disposition home or self-care (01) ==
LOC: CT 11:28
PROVIDERS: PCP Family Medicine; Referring Provider Family Medicine Geriatric Medicine; Visit Provider Family Medicine Geriatric Medicine
DX: R04.2 Hemoptysis (principal)
CPT/HCPCS: 71275; Q9967

== ENCOUNTER → 2024-03-07 | Outpatient (CLI) | payer MEDICARE, SELFPAY ==
--- NOTE | 2024-03-07 12:25 | CT_ITS ---
STUDY: CT ABDOMEN AND PELVIS WITH CONTRAST - URINARY TRACT REASON FOR EXAM: Male, 83 years old. PAIN S/P SURGERY ( CHOLECYSTECTOMY) RADIATION DOSAGE (If Supplied By Facility): CTDIvol = ( 14.31 ) mGy, DLP = ( 895.20 ) mGycm TECHNIQUE: Oral and amp; IV Gastrografin and amp; 100mL Isovue-370 was administered. Transaxial images were obtained from the dome of the diaphragm to the symphysis pubis subsequent to intravenous contrast administration. In the arterial, nephrographic and excretory phases. Multiplanar coronal and sagittal images were reformatted. The protocol utilizes one or more of the following dose reduction techniques: automated exposure control, adjustment of mA and/or kV according to patient size,and/or use of iterative reconstruction technique. COMPARISON: December 12, [address] of the chest dated March 02, 2024 FINDINGS: There are stable emphysematous changes within the visualized lung bases. There are coronary artery calcifications. There is periportal edema, likely secondary to recent intravenous rehydration. There is evidence of prior cholecystectomy. There is mild stranding within the jordan hepatis and gallbladder fossa, significantly decreased since the prior CT of the abdomen and pelvis. Normal spleen. Normal pancreas. Normal bilateral adrenal glands. Normal visualized stomach. Normal small intestine. There are multiple colonic diverticula consistent with diverticulosis. There is mild circumferential wall thickening of the colon. The colon is incompletely distended. There is non-visualization of the appendix. There is diffuse atherosclerotic calcification of the abdominal aorta, without a demonstrated aneurysm. No retroperitoneal adenopathy. Normal right kidney. Normal left kidney. Normal urinary bladder. There is a small umbilical hernia containing fat. There are diffuse degenerative changes of the visualized lumbar spine. CT/Abdomen/Pelvis WITH Contrast IMPRESSION: Mild circumferential wall thickening of the colon, may be secondary to its incompletely distended state, cannot exclude mild colitis. Stranding within the jordan hepatis and to less extent gallbladder fossa, possibly postsurgical. Colonic diverticulosis. Electronically Signed: Deanne Del Rio MD at 13:50 EST ,
== END | disposition home or self-care (01) ==
PROVIDERS: PCP Family Medicine; Referring Provider Family Medicine Geriatric Medicine; Visit Provider Family Medicine Geriatric Medicine
DX: R10.84 Generalized abdominal pain (principal); Z90.49 Acquired absence of other specified parts of digestive tract
CPT/HCPCS: 74177; Q9967; A4216

== ENCOUNTER → 2024-05-04 | Outpatient (CLI) | payer MEDICARE, SELFPAY ==
--- NOTE | 2024-05-04 12:55 | CT_ITS ---
PROCEDURE: CHEST WITHOUT CONTRAST REASON FOR EXAM: Pulmonary nodule. COPD. Former smoker. TECHNIQUE: Chest CT without contrast. COMPARISON: Comparison is made with prior examination dated March 02, 2024. FINDINGS: Hardware: None. Lymph nodes: Small benign-appearing mediastinal lymph nodes. Heart and Vasculature: Normal heart size. No pericardial effusion. Atherosclerotic calcifications of the thoracic aorta. Thoracic aorta and pulmonary arteries have normal contours; noncontrast technique limits evaluation. Coronary Artery Calcifications: Present Lungs and Airways: Hyperinflation and emphysematous changes with bullous formation. Stable 2 cm nodule along the left major fissure. The previously seen nodular density in the lingular segment of the left upper lobe laterally as almost completely resolved and most likely represents an area of scarring. Pleura: No pleural effusion. No pneumothorax. Upper Abdomen: Visualized portions of the upper abdominal viscera are unremarkable. Bones: Degenerative changes of the thoracic spine. Increased kyphosis. CT/Chest without Contrast IMPRESSION: Interval decrease in size with almost complete resolution of the previously see n nodular density in the lateral aspect of the lingular segment of the left upper lobe. Stable nodule in the left major fissure. Stable hyperinflation and emphysematous changes. One or more dose reduction techniques were used (e.g., Automated exposure contr ol, adjustment of the mA and/or kV according to patient size, use of iterative reconstruction technique). Reading Location: [id number]
== END | disposition home or self-care (01) ==
LOC: CT 12:47
PROVIDERS: PCP Family Medicine; Referring Provider Internal Medicine Pulmonary Disease; Visit Provider Internal Medicine Pulmonary Disease
DX: R91.1 Solitary pulmonary nodule (principal)
CPT/HCPCS: 71250

== ENCOUNTER → 2024-05-17 | Outpatient (CLI) | payer MEDICARE, SELFPAY | END | disposition home or self-care (01) | LOC: LABSPEC 16:35 | PROVIDERS: PCP Family Medicine; Referring Provider Internal Medicine Pulmonary Disease; Visit Provider Internal Medicine Pulmonary Disease | DX: J44.9 Chronic obstructive pulmonary disease, unspecified (principal) | CPT/HCPCS: 87070; 87205 ==

== ENCOUNTER → 2024-06-16 | Outpatient (CLI) | payer MEDICARE, SELFPAY ==
--- NOTE | 2024-06-16 14:30 | RAD_ITS ---
EXAM: XR Chest, 2 Views CLINICAL INDICATION: COPD TECHNIQUE: Frontal and lateral views of the chest. COMPARISON: No relevant prior studies available. FINDINGS: LUNGS AND PLEURAL SPACES: Bibasilar atelectasis or pneumonia. Pulmonary venous congestion. No pneumothorax. HEART: Unremarkable. No cardiomegaly. MEDIASTINUM: Unremarkable. Normal mediastinal contour. BONES/JOINTS: Unremarkable. No acute fracture. RAD/Chest PA and Lateral IMPRESSION: 1. Bibasilar atelectasis or pneumonia. 2. Pulmonary venous congestion. Reading Location: [facility]
== END | disposition home or self-care (01) ==
LOC: RAD 14:20
PROVIDERS: PCP Family Medicine; Referring Provider Internal Medicine Pulmonary Disease; Visit Provider Internal Medicine Pulmonary Disease
DX: J44.9 Chronic obstructive pulmonary disease, unspecified (principal)
CPT/HCPCS: 71046

== ENCOUNTER → 2024-06-23 | Outpatient (CLI) | payer MEDICARE, SELFPAY | END | disposition home or self-care (01) | LOC: LABSPEC 16:24 | PROVIDERS: PCP Family Medicine; Referring Provider Internal Medicine Pulmonary Disease; Visit Provider Internal Medicine Pulmonary Disease | DX: J44.9 Chronic obstructive pulmonary disease, unspecified (principal); J84.10 Pulmonary fibrosis, unspecified | CPT/HCPCS: 87070; 87205 ==

== ENCOUNTER → 2024-07-19 | Outpatient (CLI) | payer MEDICARE, SELFPAY ==
--- NOTE | 2024-07-19 14:35 | CT_ITS ---
PROCEDURE: ABDOMEN/PELVIS WITHOUT CONT 07/19/2024 REASON FOR EXAM: GROSS HEMATURIA TECHNIQUE: Abdomen and pelvis CT without intravenous contrast. Noncontrast technique limits evaluation of the abdominal and pelvic viscera. Coronal and Sagittal reconstruction series were provided. One or more dose reduction techniques were used (e.g., Automated exposure control, adjustment of the mA and/or kV according to patient size, use of iterative reconstruction technique). PATIENT PREPARATION: Per protocol ORAL CONTRAST TYPE: None. AMOUNT: mL COMPARISON: CT abdomen and pelvis 03/07/2024 FINDINGS: Lung bases: Severe emphysema. Bibasilar atelectasis and scarring. Severe coronary artery calcifications. Trace pericardial effusion. Liver: Normal size. No obvious mass. Gallbladder: No ductal dilation. Status post cholecystectomy. Spleen: No splenomegaly. Scattered calcified granulomas. Pancreas: Normal size. No surrounding inflammation. Adrenals: Unremarkable. Kidneys: 4 mm proximal right ureteral obstructing calculus without hydronephrosis. No suspicious mass. Bladder: 12 mm lateral right diverticulum. No wall thickening. Reproductive Organs: No pelvic mass. Bowel: Stomach is unremarkable. No bowel dilation or significant wall thickening. Moderate colonic stool. Colonic diverticulosis without diverticulitis. Appendix: The appendix is not identified. There is no inflammatory process identified in the right lower quadrant to suggest appendicitis. Lymph nodes: No suspicious lymph node enlargement. Vasculature: The abdominal aorta and IVC contours are normal. Noncontrast technique limits evaluation. Moderate atherosclerotic calcifications. Peritoneum / Retroperitoneum: No pneumoperitoneum. Bones: Degenerative changes of the spine. Soft tissue: Small fat containing umbilical hernia. CT/Abdomen/Pelvis without Cont IMPRESSION: 1. 4 mm proximal right ureteral obstructing calculus without hydronephrosis. 2. Colonic diverticulosis without diverticulitis. Reading Location: [facility]
== END | disposition home or self-care (01) ==
LOC: CT 14:34
PROVIDERS: PCP Family Medicine; Referring Provider Urology; Visit Provider Urology
DX: N20.1 Calculus of ureter (principal)
CPT/HCPCS: 74176

== ENCOUNTER 2024-08-05 06:01 | Day surgery (SDC) | payer MEDICARE, SELFPAY ==
--- NOTE | 2024-07-26 16:33 | PAT.ANE_ITS ---
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 When Was Last Pacemaker Check QUESTION #4 FULL TEXT: You/Your Family Experience fever (hyperthermia) with Anesthesia Last Oral Intake Last Oral intake: Last Oral Intake NPO since Meds taken in AM with sips of water? Meds patient instructed to take am of surgery PONV PONV - wildlife rehabilitator: PONV - wildlife rehabilitator Female No 07/22/24 11:55 HX of Motion Sickness No 07/22/24 11:55 HX of N/V After Surgery No 07/22/24 11:55 Non-Smoker Yes 07/22/24 11:55 Duration of Surgery greater Yes 07/22/24 11:55 than 60 minutes Number of Risk Factors 2 07/22/24 11:55 PONV Score Moderate Risk 07/22/24 11:55 Height & Weight Height & Weight: Anesthesia: Height & Weight Height 5 ft 8 in 03/11/24 11:53 Respiratory Assessment Respiratory Assessment - wildlife rehabilitator: Respiratory Tract Infection Hx - wildlife rehabilitator Hx Respiratory Tract Infection No 07/22/24 11:55 STOP Sleep Apnea STOP Sleep Apnea - wildlife rehabilitator: STOP Sleep Apnea - wildlife rehabilitator Hx Hypertension No 07/22/24 11:55 Hx Sleep Apnea Yes 07/22/24 11:55 CPAP Yes 07/22/24 11:55 BIPAP No 07/22/24 11:55 Do you snore loudly (louder than talking or can be heard Do you often feel tired/ fatigued/ sleepy during daytime? Has anyone observed you stop breathing during sleep? STOP Results Positive 07/22/24 11:55 QUESTION #5 FULL TEXT : Do you snore loudly (louder than talking or can be heard through closed doors)? 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 Specify any problems Hx of Preganancy in last 3 N/A 07/22/24 11:55 Months Nurse Filling Out Transfusion ROSE 07/22/24 11:55 & Questions: Date: 07/22/24 07/22/24 11:55 Time: 11:59 07/22/24 11:55 Patient unable to answer at this time (ie. confused, unrespo /Reproduction History /Reproductive History - wildlife rehabilitator: /Reproductive Hx- wildlife rehabilitator Hx Now Gestational Age (in weeks): EDC: Hx Hx Para Hx Section SAB PFSH Medical History (Updated 07/22/24 @ 12:16 by Ayah Cutler) History of stress test History of echocardiogram Ambulates with cane COPD (chronic obstructive pulmonary disease) Difficulty swallowing Gastric reflux History of edema History of atrial fibrillation Cardiology follow-up encounter Dementia Grade II diastolic dysfunction Vitamin D deficiency Wears hearing aid in both ears Anemia Pancreatitis Former smoker CPAP (continuous positive airway pressure) dependence Sleep apnea On home oxygen therapy Congestive heart failure (CHF) TIA (transient ischemic attack) Muscle spasm (HFpEF) heart failure with preserved ejection fraction Macular degeneration Orthostatic hypotension Coronary artery disease Depression Anxiety Pulmonary fibrosis Sinus node dysfunction HFrEF (heart failure with reduced ejection fraction) Chronic diarrhea COPD (chronic obstructive pulmonary disease) Retroperitoneal hematoma Atherosclerotic heart disease of [place] coronary artery without angina pectoris Obstructive sleep apnea Hyperlipidemia SVT (supraventricular tachycardia) GERD (gastroesophageal reflux disease) COPD (chronic obstructive pulmonary disease) BPH (benign prostatic hyperplasia) Paroxysmal atrial fibrillation Home Medications ?Medication ?Instructions ?Recorded ?Last Taken ?Type rosuvastatin 5 mg tablet (Crestor) 5 mg PO QDAY choles terol 07/04/17 10/24/23 History metoprolol succinate 25 mg 25 mg PO DAILY AFIB 2 12/12/23 History tablet,extended release 24 hr nitroglycerin 0.4 mg sublingual 0.4 mg sublingual Q5M PRN CP 06/27/21 Unknown History tablet dofetilide 250 mcg capsule 250 mcg PO Q12H afib 12/12/23 History duloxetine 60 mg capsule,delayed 120 mg PO DAILY mood 03/29/23 10/24/23 History release empagliflozin 25 mg tablet 12.5 mg PO DAILY heart 03/1610/24/23 History (Jardiance) finasteride 5 mg tablet 5 mg PO DAILY bph 03/29/23 0 10/24/23 History levalbuterol HCl 0.63 mg/3 mL 0.63 mg inhalation TID c opd 03/29/23 10/24/23 History solution for nebulization midodrine 5 mg tablet 5 mg PO 1000,1400,1800 blood 03/29/23 10/24/23 History pressure vit C 250 mg-vit E 200 unit-zinc 1 cap PO DAILY supple ment 03/29/23 10/24/23 History ox 12.5 [id number]-zeax capsule (ICaps AREDS2) lorazepam 0.5 mg tablet 0.5 mg PO QHS Anxiety #5 tab s 04/01/23 10/23/23 Rx apixaban 5 mg tablet (Eliquis) 5 mg PO BID BLOOD THINN ER #0 tabs 04/10/23 01/11/24 08:00 Rx ezetimibe 10 mg tablet 10 mg PO QHS cholesterol 01/06 Unknown History guaifenesin 1,200 mg tablet, 1,200 mg PO BID mucus rel ief 10/24/23 Unknown History extended release 12 hr (Mucinex) pantoprazole 40 mg tablet,delayed 40 mg PO DAILY GERD 10/24/23 Unknown History release tiotropium 2.5 mcg-olodaterol 2.5 2 inh inhalation ANN MARIE LY COPD 10/24/23 Unknown History mcg/actuation mist for inhalation (Stiolto Respimat) methocarbamol 750 mg tablet 750 mg PO BID Muscle Relax er 11/20/23 Unknown History sucralfate 100 mg/mL oral 1 g PO DAILY antacid 4 01/15/24 18:00 History suspension (Carafate) Lactobacillus acidophilus, 1 packet PO TIDCM supplemen t 12/23/23 Unknown History bulgaricus 100 million cell granules packet (Floranex) tamsulosin 0.4 mg capsule 0.8 mg PO QHS bph 12/23/23 U nknown History mirtazapine 15 mg tablet 7.5 mg (1/2 x 15 mg) PO QHS #0 tabs 01/22/24 Unknown Rx budesonide 0.5 mg/2 mL suspension 0.5 mg inhalation BI D Asthma 03/01/24 Unknown History for nebulization lidocaine 4 % topical patch 2 patch topical DAILY pain 03/01/24 Unknown History sennosides 8.6 mg-docusate sodium 1 tab-cap PO DAILY s tool softener 03/01/24 Unknown History 50 mg tablet (Senna-S) bumetanide 0.5 mg tablet 1 mg (2 x 0.5 mg) PO MOWEFR PRN 03/12/24 Unknown Rx EDEMA #1 TAB cholecalciferol (vitamin D3) 25 25 mcg PO DAILYCM #90 tabs 03/12/24 Unknown Rx mcg (1,000 unit) tablet Lactobacillus acidophilus 10 mg PO DAILY 07/22/24 Unkn own History (Acidophilus capsule) acetaminophen 500 mg capsule 500 mg PO TID 07/22/24 Un known History Allergy/AdvReac Type Severity Reaction Status Date / Time mirtazapine Allergy Intermediate Rash Verified 07/22/24 11:42 tramadol Allergy Unknown PT UNSURE Verified 07/22/24 11:42 OF REACTION clindamycin AdvReac Intermediate Rash Verified 07/22/24 11:42 terbinafine AdvReac Intermediate Rash Verified 07/22/24 11:42 Family History Mother , Age 64 from Emphysema COPD (chronic obstructive pulmonary disease) Blood disorder Father No problems noted. Surgical History (Updated 03/21/24 @ 00:02 by Background Daemon) Status post cholecystectomy History of cholecystectomy S/P ablation of atrial fibrillation History of left heart catheterization (05/27/21) History of tonsillectomy History of ankle surgery History of back surgery History of appendectomy History of inguinal hernia repair History of umbilical hernia repair Social History household members: spouse housing: house Smoking Status: Former smoker how long ago did patient quit smokin years ago alcohol intake: current alcohol intake frequency: holidays/special occasions only substance use type: does not use caffeine: Yes Type: coffee Number of servings: 2 Audit: Pertinent Findings Pertinent Findings Echo (EF%) pertinent findings: 45% Heart catheterization pertinent findings: Failed PCI in 2021 Additional pertinent findings: Patient follows with Cardiology;06/24/24 last appointment ; EKG in 06/24/24 NSR Recommendation Anesthesia Recommendation Anesthesia recommendation: OPTIMIZED for anesthesia
[2024-08-05] VITALS (12 sets, daily range): BP systolic 99–124; BP diastolic 60–80; PULSE 67–72; RESP 16–18; TEMP 36.8–37.1; O2SAT 91–98; BMI 26.4
[2024-08-05] MEDS: Lactated Ringers 1,000 ML 15 ML IV (06:37)
--- NOTE | 2024-08-05 06:45 | PCM.PRE.AN2 ---
ASA Classification* ASA Classification ASA Classification: 3 Assessment & Plan Anesthesia* Anesthesia Assessment Anesthesia Assessment: Discussed sedation and/or anesthesia options, risks, benefits, and alternatives with patient/parents/legal guardian/POA. Questions invited. The patient/parents/legal guardian/POA seems to understand and agrees to proceed with anesthesia plan. Reviewed the physical assessment, medical history, allergy history and patient home medications list prior to surgery/procedure/anesthetic and documented any changes. Performed airway and anesthesia risk assessments. Anesthesia Type Anesthesia Type: General Anesthesia Focused Assessment* Temperature: 98.8 F Pulse Rate: 69 Blood Pressure: 114/80 Respiratory Rate: 17 Pulse Ox: 96 Airway Assessment Mouth opens: >3 cm Mallampati Score: II Focused Labs Anesthesia Preop lab: CBC WBC 10.5 K/mm3 (4.4-11.0) 03/09/24 04:38 03/09/24 RBC 3.04 M/mm3 (4.6-6.2) L 03/09/24 04:38 03/09/24 Hgb 9.6 g/dL (13.0-16.5) L 03/12/24 14:05 03/12/24 Hct 30.2 % (40-54) L 03/12/24 14:05 03/12/24 Plt Count 359 K/mm3 (150-450) 03/09/24 04:38 03/09/24 CHEMISTRY Potassium 3.8 mmol/L (3.5-5.1) 03/12/24 05:09 03/12/24 Sodium 140 mmol/L (136-145) 03/12/24 05:09 03/12/24 Magnesium 1.9 mg/dL (1.6-2.6) 03/12/24 05:09 03/12/24 BUN 15 mg/dL (7-18) 03/12/24 05:09 03/12/24 Creatinine 0.86 mg/dL (0.70-1.30) 03/12/24 05:09 03/12/24 Glucose 98 mg/dL (74-106) 03/12/24 05:09 03/12/24 POC Glucose 96 mg/dL (74-106) 12/12/23 06:11 12/12/23 TSH 3.890 uIU/mL (0.358-3.740) H 01/14/24 05:18 01/14/24 COAG PT 15.2 SECONDS (11.7-14.9) H 01/14/24 05:18 01/14/24 Pre-Assessment Diagnosis/Proposed Procedure Planned Operative Procedure(s): (R) Cysto,Ureteroscopy,Retro,Laser,Stent Anesthesia History 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 When Was Last Pacemaker Check QUESTION #4 FULL TEXT: You/Your Family Experience fever (hyperthermia) with Anesthesia Last Oral Intake Last Oral intake: Last Oral Intake NPO since 05:30 08/05/24 06:32 Meds taken in AM with sips of Yes 08/05/24 06:32 water? Meds patient instructed to take am of surgery PONV PONV - parking garage manager: PONV - parking garage manager Female No 07/22/24 11:55 HX of Motion Sickness No 07/22/24 11:55 HX of N/V After Surgery No 07/22/24 11:55 Non-Smoker Yes 07/22/24 11:55 Duration of Surgery greater Yes 07/22/24 11:55 than 60 minutes Number of Risk Factors 2 07/22/24 11:55 PONV Score Moderate Risk 07/22/24 11:55 Height & Weight Height & Weight: Anesthesia: Height & Weight Height 5 ft 9 in 08/05/24 06:32 Weight: 81 kg 08/05/24 06:32 Body Mass Index (BMI) 26.4 08/05/24 06:32 Respiratory Assessment Respiratory Assessment - parking garage manager: Respiratory Tract Infection Hx - parking garage manager Hx Respiratory Tract Infection No 07/22/24 11:55 STOP Sleep Apnea STOP Sleep Apnea - parking garage manager: STOP Sleep Apnea - parking garage manager Hx Hypertension No 07/22/24 11:55 Hx Sleep Apnea Yes 07/22/24 11:55 CPAP Yes 07/22/24 11:55 BIPAP No 07/22/24 11:55 Do you snore loudly (louder than talking or can be heard Do you often feel tired/ fatigued/ sleepy during daytime? Has anyone observed you stop breathing during sleep? STOP Results Positive 07/22/24 11:55 QUESTION #5 FULL TEXT : Do you snore loudly (louder than talking or can be heard through closed doors)? 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 Specify any problems Hx of Preganancy in last 3 N/A 07/22/24 11:55 Months Nurse Filling Out Transfusion MGRIFFITH 07/22/24 11:55 & Questions: Date: 07/22/24 07/22/24 11:55 Time: 11:59 07/22/24 11:55 Patient unable to answer at this time (ie. confused, unrespo /Reproduction History /Reproductive History - parking garage manager: /Reproductive Hx- parking garage manager Hx Now Gestational Age (in weeks): EDC: Hx Hx Para Hx Section SAB Active Medications Active Medications: Current Medications Generic Name Dose Route Start Last Admin Trade Name Freq PRN Reason Stop Dose Admin Cefazolin Sodium 2 gm/ Sodium 110 mls @ 150 mls/hr 08/05/24 07:30 Chloride IV 08/05/24 08:13 INTRAOP ONE Lactated Ringer's 1,000 mls @ 15 mls/hr 08/05/24 06:15 IV .Q48H GIOVANNI PFSH Medical History History of stress test History of echocardiogram Ambulates with cane COPD (chronic obstructive pulmonary disease) Difficulty swallowing Gastric reflux History of edema History of atrial fibrillation Cardiology follow-up encounter Dementia Grade II diastolic dysfunction Vitamin D deficiency Wears hearing aid in both ears Anemia Pancreatitis Former smoker CPAP (continuous positive airway pressure) dependence Sleep apnea On home oxygen therapy Congestive heart failure (CHF) TIA (transient ischemic attack) Muscle spasm (HFpEF) heart failure with preserved ejection fraction Macular degeneration Orthostatic hypotension Coronary artery disease Depression Anxiety Pulmonary fibrosis Sinus node dysfunction HFrEF (heart failure with reduced ejection fraction) Chronic diarrhea COPD (chronic obstructive pulmonary disease) Retroperitoneal hematoma Atherosclerotic heart disease of [place] coronary artery without angina pectoris Obstructive sleep apnea Hyperlipidemia SVT (supraventricular tachycardia) GERD (gastroesophageal reflux disease) COPD (chronic obstructive pulmonary disease) BPH (benign prostatic hyperplasia) Paroxysmal atrial fibrillation Home Medications ?Medication ?Instructions ?Recorded ?Last Taken ?Type rosuvastatin 5 mg tablet (Crestor) 5 mg PO QDAY cholesterol 07/04/17 10/24/23 History metoprolol succinate 25 mg 25 mg PO DAILY AFIB 06/27/21 12/12/23 History tablet,extended release 24 hr nitroglycerin 0.4 mg sublingual 0.4 mg sublingual Q5M PRN CP 06/27/21 Unknown History tablet dofetilide 250 mcg capsule 250 mcg PO Q12H afib 03/29/23 12/12/23 History duloxetine 60 mg capsule,delayed 120 mg PO DAILY mood 03/29/23 10/24/23 History release empagliflozin 25 mg tablet 12.5 mg PO DAILY heart 03/29/23 10/24/23 History (Jardiance) finasteride 5 mg tablet 5 mg PO DAILY bph 03/29/23 10/24/23 History levalbuterol HCl 0.63 mg/3 mL 0.63 mg inhalation TID copd 03/29/23 10/24/23 History solution for nebulization midodrine 5 mg tablet 5 mg PO 1000,1400,1800 blood 03/29/23 10/24/23 History pressure vit C 250 mg-vit E 200 unit-zinc 1 cap PO DAILY supplement 03/29/23 10/24/23 History ox 12.5 nn-qrrxqk-ijgguz-zeax capsule (ICaps AREDS2) lorazepam 0.5 mg tablet 0.5 mg PO QHS Anxiety #5 tabs 04/01/23 10/23/23 Rx apixaban 5 mg tablet (Eliquis) 5 mg PO BID BLOOD THINNER #0 tabs 04/10/23 01/11/24 08:00 Rx ezetimibe 10 mg tablet 10 mg PO QHS cholesterol 10/24/23 Unknown History guaifenesin 1,200 mg tablet, 1,200 mg PO BID mucus relief 10/24/23 Unknown History extended release 12 hr (Mucinex) pantoprazole 40 mg tablet,delayed 40 mg PO DAILY GERD 10/24/23 Unknown History release tiotropium 2.5 mcg-olodaterol 2.5 2 inh inhalation DAILY COPD 10/24/23 Unknown History mcg/actuation mist for inhalation (Stiolto Respimat) methocarbamol 750 mg tablet 750 mg PO BID Muscle Relaxer 11/20/23 Unknown History sucralfate 100 mg/mL oral 1 g PO DAILY antacid 11/20/23 01/15/24 18:00 History suspension (Carafate) Lactobacillus acidophilus, 1 packet PO TIDCM supplement 12/23/23 Unknown History bulgaricus 100 million cell granules packet (Floranex) tamsulosin 0.4 mg capsule 0.8 mg PO QHS bph 12/23/23 Unknown History mirtazapine 15 mg tablet 7.5 mg (1/2 x 15 mg) PO QHS #0 tabs 01/22/24 Unknown Rx budesonide 0.5 mg/2 mL suspension 0.5 mg inhalation BID Asthma 03/01/24 Unknown History for nebulization lidocaine 4 % topical patch 2 patch topical DAILY pain 03/01/24 Unknown History sennosides 8.6 mg-docusate sodium 1 tab-cap PO DAILY stool softener 03/01/24 Unknown History 50 mg tablet (Senna-S) bumetanide 0.5 mg tablet 1 mg (2 x 0.5 mg) PO MOWEFR PRN 03/12/24 Unknown Rx EDEMA #1 TAB cholecalciferol (vitamin D3) 25 25 mcg PO DAILYCM #90 tabs 03/12/24 Unknown Rx mcg (1,000 unit) tablet Lactobacillus acidophilus 10 mg PO DAILY 07/22/24 Unknown History (Acidophilus capsule) acetaminophen 500 mg capsule 500 mg PO TID 07/22/24 Unknown History Allergy/AdvReac Type Severity Reaction Status Date / Time mirtazapine Allergy Intermediate Rash Verified 07/22/24 11:42 tramadol Allergy Unknown PT UNSURE Verified 07/22/24 11:42 OF REACTION clindamycin AdvReac Intermediate Rash Verified 07/22/24 11:42 terbinafine AdvReac Intermediate Rash Verified 07/22/24 11:42 Family History Mother , Age 64 from Emphysema COPD (chronic obstructive pulmonary disease) Blood disorder Father No problems noted. Surgical History Status post cholecystectomy History of cholecystectomy S/P ablation of atrial fibrillation History of left heart catheterization (05/27/21) History of tonsillectomy History of ankle surgery History of back surgery History of appendectomy History of inguinal hernia repair History of umbilical hernia repair Social History household members: spouse housing: house Smoking Status: Former smoker how long ago did patient quit smokin years ago alcohol intake: current alcohol intake frequency: holidays/special occasions only substance use type: does not use caffeine: Yes Type: coffee Number of servings: 2 Review of Systems (Anesthesia) ROS Narrative System reviewed and no additional complaints, except as documented.
[2024-08-05] MEDS: Ipratropium/Albuterol Sulfate 3 ML AMPUL.NEB INHALATION (07:02)
--- NOTE | 2024-08-05 07:20 | DCINST_ITS ---
Discharge Instructions Diet Discharge Diet: No restrictions DC O2, CPAP, BIPAP needs Home O2 Discharge instructions: No Dressing / Incision Discharge Activity: Return to Normal Activity and May Not Drive (while taking narcotic pain medications.) Dressing / Incision Call your doctor if you observe: Fever of 101 or Higher Follow Up Care Please Follow Up With: Juaquin Pierre MD When: Call [phone] for an appointment Test Results: Test results from this visit will be discussed in further detail at your follow- up appointment, if applicable. Discharge Plan Admission Primary Reason for Your Visit: Laser of right kidney stones Attending Provider: Juaquin Pierre Primary Care Provider: Arnulfo Rascon Instructions Patient Instructions: Kidney Stone Ureteroscopy Print Language: Luxembourgish Discharge Orders/Prescriptions Prescriptions: New acetaminophen 500 mg capsule 500 mg PO Q6H PRN (Reason: pain) Qty: 20 0RF phenazopyridine [Pyridium] 100 mg tablet 100 mg PO TID PRN (Reason: pain) Qty: 14 0RF Continued rosuvastatin [Crestor] 5 mg tablet 5 mg PO QDAY metoprolol succinate 25 mg tablet extended release 24 hr 25 mg PO DAILY nitroglycerin 0.4 mg tablet, sublingual 0.4 mg sublingual Q5M PRN (Reason: CP) Rx Instructions: do not exceed 3 doses per episode dofetilide 250 mcg capsule 250 mcg PO Q12H Patient Comments: TAKE 1 CAPSULE BY MOUTH EVERY 12 HOURS midodrine 5 mg tablet 5 mg PO 1000,1400,1800 Patient Comments: Takes in the morning and evening and the afternoon dose is PRN if he needs it. Rx Instructions: HOLD if SBP >100 finasteride 5 mg tablet 5 mg PO DAILY Patient Comments: take 1 tablet by mouth once daily duloxetine 60 mg capsule,delayed release(DR/EC) 120 mg PO DAILY Rx Instructions: 60 mg (2 caps) orally daily; Jardiance 25 mg tablet 12.5 mg PO DAILY Patient Comments: LAST DOSE TO BE 08/02/24 FOR SURGERY ON 08/05/24 levalbuterol HCl 0.63 mg/3 mL solution for nebulization 0.63 mg INHALATION TID Patient Comments: USE 1 VIAL 3 TIMES A DAY ICaps AREDS2 250 mg-200 unit -12.5 mg-1 mg capsule 1 cap PO DAILY lorazepam 0.5 mg Tablet 0.5 mg PO QHS Qty: 5 0RF Eliquis 5 mg Tablet 5 mg PO BID Qty: 0 0RF Patient Comments: LAST DOSE TO B 07/31/24 FOR SURGERY ON 08/05/24 pantoprazole 40 mg tablet,delayed release (DR/EC) 40 mg PO DAILY Patient Comments: take 1 tablet by mouth twice a day take before meals Rx Instructions: Before meals ezetimibe 10 mg tablet 10 mg PO QHS guaifenesin [Mucinex] 1,200 mg tablet extended release 12hr 1,200 mg PO BID Stiolto Respimat 2.5-2.5 mcg/actuation mist 2 inh inhalation DAILY Lactobacillus acidoph-L.bulgar [Floranex] 100 million cell granules in packet 1 packet PO TIDCM tamsulosin 0.4 mg Capsule 0.8 mg PO QHS methocarbamol 750 mg tablet 750 mg PO BID Rx Instructions: for neck pain sucralfate [Carafate] 100 mg/mL suspension 1 g PO DAILY mirtazapine 15 mg Tablet 7.5 mg PO QHS Qty: 0 0RF sennosides-docusate sodium [Senna-S] 8.6-50 mg tablet 1 tab-cap PO DAILY lidocaine 4 % adhesive patch,medicated 2 patch topical DAILY Rx Instructions: may leave on for up to 12 hrs budesonide 0.5 mg/2 mL Suspension For Nebulization 0.5 mg inhalation BID cholecalciferol (vitamin D3) 25 mcg (1,000 unit) Tablet 25 mcg PO DAILYCM Qty: 90 0RF bumetanide 0.5 mg Tablet 1 mg PO MOWEFR PRN (Reason: EDEMA) Qty: 1 0RF Acidophilus Capsule 10 mg PO DAILY acetaminophen 500 mg capsule 500 mg PO TID Referrals / Follow Up: Juaquin Pierre MD [Med Staff - Active Staff] - Arnulfo Rascon MD [Primary Care Provider] - Disposition Disposition (needs filled in before D/C Order can be placed): Home, Self Care
--- NOTE | 2024-08-05 07:20 | PCM.HP.STD ---
HPI - General General Date of Service: 08/05/24 Chief Complaint: Right renal pelvic stone HPI Narrative ELIO DORAN, is a 83 M who presents for treatment of a stone in the right renal pelvis with laser lithotripsy and stent placement [facility] Medical History History of stress test History of echocardiogram Ambulates with cane COPD (chronic obstructive pulmonary disease) Difficulty swallowing Gastric reflux History of edema History of atrial fibrillation Cardiology follow-up encounter Dementia Grade II diastolic dysfunction Vitamin D deficiency Wears hearing aid in both ears Anemia Pancreatitis Former smoker CPAP (continuous positive airway pressure) dependence Sleep apnea On home oxygen therapy Congestive heart failure (CHF) TIA (transient ischemic attack) Muscle spasm (HFpEF) heart failure with preserved ejection fraction Macular degeneration Orthostatic hypotension Coronary artery disease Depression Anxiety Pulmonary fibrosis Sinus node dysfunction HFrEF (heart failure with reduced ejection fraction) Chronic diarrhea COPD (chronic obstructive pulmonary disease) Retroperitoneal hematoma Atherosclerotic heart disease of [place] coronary artery without angina pectoris Obstructive sleep apnea Hyperlipidemia SVT (supraventricular tachycardia) GERD (gastroesophageal reflux disease) COPD (chronic obstructive pulmonary disease) BPH (benign prostatic hyperplasia) Paroxysmal atrial fibrillation Home Medications ?Medication ?Instructions ?Recorded ?Last Taken ?Type rosuvastatin 5 mg tablet (Crestor) 5 mg PO QDAY cholesterol 07/04/17 08/04/24 History metoprolol succinate 25 mg 25 mg PO DAILY AFIB 06/27/21 08/05/24 History tablet,extended release 24 hr nitroglycerin 0.4 mg sublingual 0.4 mg sublingual Q5M PRN CP 06/27/21 Unknown History tablet dofetilide 250 mcg capsule 250 mcg PO Q12H afib 03/29/23 12/12/23 History duloxetine 60 mg capsule,delayed 120 mg PO DAILY mood 03/29/23 08/04/24 History release empagliflozin 25 mg tablet 12.5 mg PO DAILY heart 03/29/23 08/02/24 History (Jardiance) finasteride 5 mg tablet 5 mg PO DAILY bph 03/29/23 08/04/24 History levalbuterol HCl 0.63 mg/3 mL 0.63 mg inhalation TID copd 03/29/23 08/05/24 History solution for nebulization midodrine 5 mg tablet 5 mg PO 1000,1400,1800 blood 03/29/23 08/04/24 History pressure vit C 250 mg-vit E 200 unit-zinc 1 cap PO DAILY supplement 03/29/23 08/04/24 History ox 12.5 ck-lrxsmn-qepiwc-zeax capsule (ICaps AREDS2) lorazepam 0.5 mg tablet 0.5 mg PO QHS Anxiety #5 tabs 04/01/23 08/04/24 Rx apixaban 5 mg tablet (Eliquis) 5 mg PO BID BLOOD THINNER #0 tabs 04/10/23 07/31/24 Rx ezetimibe 10 mg tablet 10 mg PO QHS cholesterol 10/24/23 08/04/24 History guaifenesin 1,200 mg tablet, 1,200 mg PO BID mucus relief 10/24/23 08/04/24 History extended release 12 hr (Mucinex) pantoprazole 40 mg tablet,delayed 40 mg PO DAILY GERD 10/24/23 08/05/24 History release tiotropium 2.5 mcg-olodaterol 2.5 2 inh inhalation DAILY COPD 10/24/23 08/05/24 History mcg/actuation mist for inhalation (Stiolto Respimat) methocarbamol 750 mg tablet 750 mg PO BID Muscle Relaxer 11/20/23 08/04/24 History sucralfate 100 mg/mL oral 1 g PO DAILY antacid 11/20/23 08/04/24 History suspension (Carafate) Lactobacillus acidophilus, 1 packet PO TIDCM supplement 12/23/23 Unknown History bulgaricus 100 million cell granules packet (Floranex) tamsulosin 0.4 mg capsule 0.8 mg PO QHS bph 12/23/23 08/04/24 History mirtazapine 15 mg tablet 7.5 mg (1/2 x 15 mg) PO QHS #0 tabs 01/22/24 Unknown Rx budesonide 0.5 mg/2 mL suspension 0.5 mg inhalation BID Asthma 03/01/24 08/05/24 History for nebulization lidocaine 4 % topical patch 2 patch topical DAILY pain 03/01/24 Unknown History sennosides 8.6 mg-docusate sodium 1 tab-cap PO DAILY stool softener 03/01/24 08/04/24 History 50 mg tablet (Senna-S) bumetanide 0.5 mg tablet 1 mg (2 x 0.5 mg) PO MOWEFR PRN 03/12/24 Unknown Rx EDEMA #1 TAB cholecalciferol (vitamin D3) 25 25 mcg PO DAILYCM #90 tabs 03/12/24 08/04/24 Rx mcg (1,000 unit) tablet Lactobacillus acidophilus 10 mg PO DAILY 07/22/24 08/04/24 History (Acidophilus capsule) acetaminophen 500 mg capsule 500 mg PO TID 07/22/24 08/04/24 History acetaminophen 500 mg capsule 500 mg PO Q6H PRN pain #20 caps 08/05/24 Unknown Rx phenazopyridine 100 mg tablet 100 mg PO TID PRN pain 6 doses #14 08/05/24 Unknown Rx (Pyridium) tabs Allergy/AdvReac Type Severity Reaction Status Date / Time mirtazapine Allergy Intermediate Rash Verified 08/05/24 06:48 tramadol Allergy Unknown PT UNSURE Verified 08/05/24 06:48 OF REACTION clindamycin AdvReac Intermediate Rash Verified 08/05/24 06:48 terbinafine AdvReac Intermediate Rash Verified 08/05/24 06:48 Family History Mother , Age 64 from Emphysema COPD (chronic obstructive pulmonary disease) Blood disorder Father No problems noted. Surgical History Status post cholecystectomy History of cholecystectomy S/P ablation of atrial fibrillation History of left heart catheterization (05/27/21) History of tonsillectomy History of ankle surgery History of back surgery History of appendectomy History of inguinal hernia repair History of umbilical hernia repair Social History household members: spouse housing: house Smoking Status: Former smoker how long ago did patient quit smokin years ago alcohol intake: current alcohol intake frequency: holidays/special occasions only substance use type: does not use caffeine: Yes Type: coffee Number of servings: 2 ROS Constitutional Constitutional: Denies chills, fever(s) or malaise Eyes Eyes: Denies blurry vision or change in vision ENT HEENT: Reports none Cardiovascular Cardiovascular: Denies chest pain or palpitations Respiratory/Chest Respiratory/Chest: Denies cough or shortness of breath with exertion Gastrointestinal Gastrointestinal: Denies abdominal pain, constipation or diarrhea Musculoskeletal Musculoskeletal: Denies back pain, joint stiffness or joint swelling Integumentary Integumentary: Denies dry skin, jaundice, lesions or rash Neurologic Neurologic: Denies confusion, syncope or weakness Psychiatric Psychiatric: Reports none; Denies anxiety or depression Endocrine Endocrinology: Denies excessive sweating, fatigue or flushing Hematologic/Lymphatic Hematologic/Lymphatic: Denies anemia, easy bleeding or easy bruising Vital Signs Vital Signs Vital Signs: 08/05/24 06:32 08/05/24 06:32 08/05/24 06:46 Temperature 98.8 F 98.8 F Temperature Source Temporal Pulse Rate 69 69 Respiratory Rate 17 17 Respiratory Pattern Normal Blood Pressure 114/80 114/80 Blood Pressure Mean 91 Blood Pressure Source Monitor Blood Pressure Position Semi-Fowlers Blood Pressure Location Left Arm Pulse Ox 96 96 Oxygen Delivery Method Room Air 08/05/24 07:04 Temperature Temperature Source Pulse Rate 72 Respiratory Rate 18 Respiratory Pattern Normal Blood Pressure Blood Pressure Mean Blood Pressure Source Blood Pressure Position Blood Pressure Location Pulse Ox Oxygen Delivery Method Weight Weight: 81 kg Body Mass Index (BMI) 26.4 Physical Exam Const alert and oriented x3 General Appearance: cooperative HEENT normocephalic, head/scalp atraumatic, EAC's normal and TM's normal bilaterally Eyes PERRL and EOMs intact bilaterally Pupil: sluggish Neck no lymphadenopathy, supple and no JVD General: trachea midline Lymph Lymphatic: no lymphadenopathy noted, lymphedema and lymphadenopathy Resp normal respiratory effort, normal air movement and clear to auscultation bilaterally Cardio regular rate, regular rhythm and peripheral pulses 2+ throughout GI soft to palpation, non-tender and non-distended Extremity normal capillary refill and no clubbing, cyanosis or edema General Extremity: no tenderness to palpation of joints or extremities Skin no rashes or lesions noted General Skin Exam: turgor normal Lesions: no lesions Rashes: no rashes Neuro CN's II-XII intact bilaterally Speech: speech normal Motor Exam: strength 5/5 throughout; Negative for general weakness Psych thought process normal, cooperative and affect normal Appearance: appropriate
[2024-08-05] MEDS: Cefazolin 2 GM in 0.9% Normal Saline (100mL Bag) 100 ML IV (07:33)
--- NOTE | 2024-08-05 08:01 | OP.PCM_ITS ---
Operative Report (Standard) Operative Information Date of Procedure: 08/05/24 Pre-Operative Diagnosis: Right kidney stone Post-Operative Diagnosis: The same Surgery/Procedure Performed: Cystoscopy right ureteroscopy laser lithotripsy of stone no stent embroidery supervisor: No Type of Anesthesia: General RN Documented Start/Stop Times: Operation Date: 08/05/24 07:30 Case Time Into Pre-Op 08/05/24 06:05 Out of Pre-Op 08/05/24 07:18 Anesthesia Start 08/05/24 07:27 Into Room 08/05/24 07:27 Procedure Start 08/05/24 07:39 Procedure Start Time: 07:39 Procedure Stop Time: 08:01 Select all DRAINS/GRAFTS/IMPLANTS that apply: None Estimated Blood Loss: None Specimen collected: No Description of surgery: 83-year-old male history of gross hematuria found to have a stone in the right kidney so organ to proceed with right ureteroscopy and laser lithotripsy of the stone. Patient was taken back to the operating room after smooth induction of anesthesia he was placed in dorsolithotomy position penis and testicles were prepped and draped in usual fashion went in the bladder with a 21 [place] rigid cystourethroscope put a wire up into the right kidney over the wire went over the flexible ureteroscope I went all the way up to the kidney I found the stone in the right renal pelvis is about a 8 mm stone I then used a 200 ?m thulium laser fiber and then dusting of the stone was done with the laser fiber after the stone was completely dusted into small little fragments that should all pass on their own no major fragments left I then worked my way down the ureter no injury or trauma or problems along the ureter. I then remove the ureteroscope, patient anesthetic was reversed no stent placed successfully lasered the stone completely no stent patient was taken back to the PACU after extubation. Surgical Findings: Stone in the right kidney lasered to completely dust Complications Complications: No Admit VTE Documentation VTE Present on Admission: No VTE Mechan Device Prophylaxis: SCD's VTE Pharm Prophylaxis ordered?: No
--- NOTE | 2024-08-05 08:12 | PCM.POST.ANE ---
Anesthesia: Postop Eval I Current Vital Signs Temperature: 98.3 F Pulse Rate: 68 Blood Pressure: 108/67 Respiratory Rate: 16 Pulse Ox: 98 Oxygen Delivery Method: Room Air Assessment Airway patent: Yes Spontaneous unlabored respirations: Yes Mental status: Awake and Calm nausea: No Vomiting: No Anesthesia Complication: No Fluid Hydration Crystalloid volume administer (ml): 600 Total IV fluid infused: 600 Progress Note Anesthesia document: Postop Eval 1 completed: Yes
--- NOTE | 2024-08-05 08:32 | POSTOPAN2_ITS ---
Anesthesia Postop Eval I Sum Postop Eval Completion status Anesthesia document: Postop Eval 1 completed: Yes Anesthesia Postop Eval I Summary Anesthesia Postop Eval I Summary: Anesthesia Postop Eval I: Assessment Summary Airway patent Yes 08/05/24 08:16 [email or web address] Spontaneous unlabored Yes 08/05/24 08:16 [email or web address] respirations Mental status Awake,Calm 08/05/24 08:16 [email or web address] nausea No 08/05/24 08:16 [email or web address] Vomiting No 08/05/24 08:16 [email or web address] Anesthesia Postop Eval I: Fluid Summary Crystalloid volume administer 600 08/05/24 08:16 [email or web address] (ml) Colloids volume administered ( ml) Blood Product volume administered (ml) Total IV fluid infused 600 08/05/24 08:16 SPORTS [email or web address] Anesthesia Postop Eval I: Summary Notes Anesthesia Complication No 08/05/24 08:16 [email or web address] Anesthesia Complication Comment: Post-operative progress note Anesthesia: Postop Eval II Evaluation Mental status: Awake Pain Level: 0 nausea: No Vomiting: No
--- NOTE | 2024-08-05 08:32 | PCM.POSTANE2 ---
Anesthesia Postop Eval I Sum Postop Eval Completion status Anesthesia document: Postop Eval 1 completed: Yes Anesthesia Postop Eval I Summary Anesthesia Postop Eval I Summary: Anesthesia Postop Eval I: Assessment Summary Airway patent Yes 08/05/24 08:16 [email or web address] Spontaneous unlabored Yes 08/05/24 08:16 CURRICULUM COACH.OT respirations Mental status Awake,Calm 08/05/24 08:16 [employer]IC[employer] [email or web address].MDOT nausea No 08/05/24 08:16 [employer]IC[employer] [email or web address] Vomiting No 08/05/24 08:16 CURRICULUM [email or web address] Anesthesia Postop Eval I: Fluid Summary Crystalloid volume administer 600 08/05/24 08:16 CURRICULUM COACH.MDOT (ml) Colloids volume administered ( ml) Blood Product volume administered (ml) Total IV fluid infused 600 08/05/24 08:16 CURRICULUM COACH.OT Anesthesia Postop Eval I: Summary Notes Anesthesia Complication No 08/05/24 08:16 CURRICULUM [email or web address] Anesthesia Complication Comment: Post-operative progress note Anesthesia: Postop Eval II Evaluation Mental status: Awake Pain Level: 0 nausea: No Vomiting: No
== END 2024-08-05 09:39 | disposition home or self-care (01) ==
LOC: SDC 06:03 → AC 06:06
PROVIDERS: PCP Family Medicine; Referring Provider Urology; Visit Provider Urology
PROC: 0TJ98ZZ Inspection of Ureter, Via Natural or Artificial Opening Endoscopic (ICD-10-PCS; CPT 52352; principal; 2024-08-05 07:20)
DX: N20.0 Calculus of kidney (principal); I50.42 Chronic combined systolic (congestive) and diastolic (congestive) heart failure; F03.90 Unspecified dementia, unspecified severity, without behavioral disturbance, psychotic disturbance, mood disturbance, and anxiety; J44.9 Chronic obstructive pulmonary disease, unspecified; I48.0 Paroxysmal atrial fibrillation; E78.5 Hyperlipidemia, unspecified; I25.10 Atherosclerotic heart disease of native coronary artery without angina pectoris; Z99.81 Dependence on supplemental oxygen; Z79.01 Long term (current) use of anticoagulants; Z79.51 Long term (current) use of inhaled steroids; Z79.899 Other long term (current) drug therapy; Z86.73 Personal history of transient ischemic attack (TIA), and cerebral infarction without residual deficits; Z87.891 Personal history of nicotine dependence
CPT/HCPCS: 52353; 00910; 94640; C1769; J2405

== ENCOUNTER → 2025-01-05 | Outpatient (CLI) | payer MEDICARE, SELFPAY | END | disposition home or self-care (01) | LOC: LABSPEC 18:57 | PROVIDERS: PCP Family Medicine; Visit Provider Internal Medicine Pulmonary Disease | DX: J44.9 Chronic obstructive pulmonary disease, unspecified (principal); J84.10 Pulmonary fibrosis, unspecified | CPT/HCPCS: 87070; 87205 ==

== ENCOUNTER → 2025-03-07 | Outpatient (CLI) | payer MEDICARE, SELFPAY ==
--- NOTE | 2025-03-07 14:50 | RAD_ITS ---
PROCEDURE: CHEST PA AND LATERAL 03/07/2025 REASON FOR EXAM: COPD TECHNIQUE: Procedure Code: RADCXR Modality: DX Procedure: CHEST PA AND LATERAL FINDINGS: There are nonspecific bilateral interstitial lung markings, greater on the right, which may be secondary to edema. The heart size is unremarkable. There are no pleural effusions or pneumothoraces. The upper abdomen is unremarkable. The osseous structures are intact. RAD/Chest PA and Lateral IMPRESSION: Nonspecific bilateral interstitial lung markings, greater on the right, which m ay be secondary to edema. Reading Location: [id number]
[2025-03-07 17:56] LABS: Pro- Brain NATRIURETIC PEPTIDE 791 pg/mL (<=1800)
== END | disposition home or self-care (01) ==
PROVIDERS: PCP Family Medicine; Referring Provider Internal Medicine Pulmonary Disease; Visit Provider Internal Medicine Pulmonary Disease
DX: J44.9 Chronic obstructive pulmonary disease, unspecified (principal); G47.33 Obstructive sleep apnea (adult) (pediatric); R06.02 Shortness of breath
CPT/HCPCS: 36415; 71046; 83880

== ENCOUNTER 2025-03-08 12:45 | Emergency (ER) | payer MEDICARE, SELFPAY ==
[2025-03-08] VITALS (8 sets, daily range): BP systolic 111–131; BP diastolic 63–80; PULSE 72–80; RESP 14–23; TEMP 36.7–36.8; O2SAT 87–97; BMI 27.3
--- NOTE | 2025-03-08 13:04 | ED.VIS.DYS ---
HPI History of Present Illness Chief Complaint: Shortness of Breath Narrative Narrative: Patient is a 84-year-old male presenting to the emergency department for dyspnea. Patient has a past medical history of COPD, HFpEF, lung abscess, A-fib with RVR, SVT, CAD. Patient wears as needed oxygen. Patient's daughter is at bedside helping provide history. Patient saw his filter tender yesterday and they ordered chest x-ray and labs which showed a very mildly elevated BNP and they recommended that he come to the emergency department. Daughter states that over the past few weeks he has been more short of breath with activity and initially a few weeks ago when he saw his filter tender she started him on steroid and cefdinir for possible COPD exacerbation. He finished this and really had no improvement in his symptoms and this weekend his symptoms actually worsened. When he is at rest he does not feel short of breath but with any activity he does. He denies chest pain. He does endorse yellow productive cough. He is also had an increase in his sputum production. Denies fever or chills. Denies abdominal pain, nausea, vomiting. He has reportedly gained 7 pounds in 2 weeks. [employer] that saw him yesterday to started him on Levaquin and a higher dose steroid. [facility] Medical History History of stress test History of echocardiogram Ambulates with cane COPD (chronic obstructive pulmonary disease) Difficulty swallowing Gastric reflux History of edema History of atrial fibrillation Cardiology follow-up encounter Dementia Grade II diastolic dysfunction Vitamin D deficiency Wears hearing aid in both ears Anemia Pancreatitis Former smoker CPAP (continuous positive airway pressure) dependence Sleep apnea On home oxygen therapy Congestive heart failure (CHF) TIA (transient ischemic attack) Muscle spasm (HFpEF) heart failure with preserved ejection fraction Macular degeneration Orthostatic hypotension Coronary artery disease Depression Anxiety Pulmonary fibrosis Sinus node dysfunction HFrEF (heart failure with reduced ejection fraction) Chronic diarrhea COPD (chronic obstructive pulmonary disease) Retroperitoneal hematoma Atherosclerotic heart disease of [place] coronary artery without angina pectoris Obstructive sleep apnea Hyperlipidemia SVT (supraventricular tachycardia) GERD (gastroesophageal reflux disease) COPD (chronic obstructive pulmonary disease) BPH (benign prostatic hyperplasia) Paroxysmal atrial fibrillation Home Medications ?Medication ?Instructions ?Recorded ?Last Taken ?Type rosuvastatin 5 mg tablet (Crestor) 5 mg PO QDAY cholesterol 07/04/17 08/04/24 History metoprolol succinate 25 mg 25 mg PO DAILY AFIB 06/27/21 08/05/24 History tablet,extended release 24 hr nitroglycerin 0.4 mg sublingual 0.4 mg sublingual Q5M PRN CP 06/27/21 Unknown History tablet dofetilide 250 mcg capsule 250 mcg PO Q12H afib 03/29/23 12/12/23 History duloxetine 60 mg capsule,delayed 120 mg PO DAILY mood 03/29/23 08/04/24 History release empagliflozin 25 mg tablet 12.5 mg PO DAILY heart 03/29/23 08/02/24 History (Jardiance) finasteride 5 mg tablet 5 mg PO DAILY bph 03/29/23 08/04/24 History levalbuterol HCl 0.63 mg/3 mL 0.63 mg inhalation TID copd 03/29/23 08/05/24 History solution for nebulization midodrine 5 mg tablet 5 mg PO 1000,1400,1800 blood 03/29/23 08/04/24 History pressure vit C 250 mg-vit E 200 unit-zinc 1 cap PO DAILY supplement 03/29/23 08/04/24 History ox 12.5 be-[id number]-[id number]-zeax capsule (ICaps AREDS2) lorazepam 0.5 mg tablet 0.5 mg PO QHS Anxiety #5 tabs 04/01/23 08/04/24 Rx apixaban 5 mg tablet (Eliquis) 5 mg PO BID BLOOD THINNER #0 tabs 04/10/23 07/31/24 Rx ezetimibe 10 mg tablet 10 mg PO QHS cholesterol 10/24/23 08/04/24 History guaifenesin 1,200 mg tablet, 1,200 mg PO BID mucus relief 10/24/23 08/04/24 History extended release 12 hr (Mucinex) pantoprazole 40 mg tablet,delayed 40 mg PO DAILY GERD 10/24/23 08/05/24 History release tiotropium 2.5 mcg-olodaterol 2.5 2 inh inhalation DAILY COPD 10/24/23 08/05/24 History mcg/actuation mist for inhalation (Stiolto Respimat) methocarbamol 750 mg tablet 750 mg PO BID Muscle Relaxer 11/20/23 08/04/24 History sucralfate 100 mg/mL oral 1 g PO DAILY antacid 11/20/23 08/04/24 History suspension (Carafate) tamsulosin 0.4 mg capsule 0.8 mg PO QHS bph 12/23/23 08/04/24 History mirtazapine 15 mg tablet 7.5 mg (1/2 x 15 mg) PO QHS #0 tabs 01/22/24 Unknown Rx budesonide 0.5 mg/2 mL suspension 0.5 mg inhalation BID Asthma 03/01/24 08/05/24 History for nebulization lidocaine 4 % topical patch 2 patch topical DAILY pain 03/01/24 Unknown History sennosides 8.6 mg-docusate sodium 1 tab-cap PO DAILY stool softener 03/01/24 08/04/24 History 50 mg tablet (Senna-S) bumetanide 0.5 mg tablet 1 mg (2 x 0.5 mg) PO MOWEFR PRN 03/12/24 Unknown Rx EDEMA #1 TAB cholecalciferol (vitamin D3) 25 25 mcg PO DAILYCM #90 tabs 03/12/24 08/04/24 Rx mcg (1,000 unit) tablet Lactobacillus acidophilus 10 mg PO DAILY 07/22/24 08/04/24 History (Acidophilus capsule) acetaminophen 500 mg capsule 500 mg PO Q6H PRN pain #20 caps 08/05/24 Unknown Rx phenazopyridine 100 mg tablet 100 mg PO TID PRN pain 6 doses #14 08/05/24 Unknown Rx (Pyridium) tabs Allergy/AdvReac Type Severity Reaction Status Date / Time mirtazapine Allergy Intermediate Rash Verified 03/08/25 12:48 tramadol Allergy Unknown PT UNSURE Verified 03/08/25 12:48 OF REACTION melatonin Allergy Rash Verified 03/08/25 12:48 clindamycin AdvReac Intermediate Rash Verified 03/08/25 12:48 terbinafine AdvReac Intermediate Rash Verified 03/08/25 12:48 Family History Mother , Age 64 from Emphysema COPD (chronic obstructive pulmonary disease) Blood disorder Father No problems noted. Surgical History Status post cholecystectomy History of cholecystectomy S/P ablation of atrial fibrillation History of left heart catheterization (05/27/21) History of tonsillectomy History of ankle surgery History of back surgery History of appendectomy History of inguinal hernia repair History of umbilical hernia repair Social History household members: spouse housing: house Smoking Status: Former smoker how long ago did patient quit smokin years ago alcohol intake: current alcohol intake frequency: holidays/special occasions only substance use type: does not use caffeine: Yes Type: coffee Number of servings: 2 ROS ROS ED ROS Narrative see HPI EXAM Physical Exam Narrative Exam Narrative: Vital signs: Reviewed General: Alert and oriented x 3. No acute distress. Chronically ill-appearing, nontoxic HEENT: Head is normocephalic and atraumatic, sinuses nontender, pupils equal round and reactive. Nares are patent. Oropharynx and throat exams normal. Neck: Supple without lymphadenopathy nontender Cardiovascular: Regular rate and rhythm, no murmurs. No rubs or gallops. Normal S1 and S2 Respiratory: Coarse lung sounds in all lung banks. There is no wheezing. Patient is on 2 L nasal cannula saturating 97%. Abdominal: Soft and nontender. Normal bowel sounds. No guarding or rebound. Nonsurgical abdomen Extremities: No lower extremity edema noted. No tenderness. No bruising. Normal range of motion. Normal sensation. Skin: No rash or redness. The rest of the physical exam is unremarkable Const Vital Signs: 03/08/25 12:46 03/08/25 13:09 03/08/25 13:28 Temperature 98.2 F Temperature Source Oral Pulse Rate 80 Respiratory Rate 14 Respiratory Effort Normal Respiratory Depth Normal Respiratory Pattern Normal Blood Pressure 131/80 H Blood Pressure Mean 97 Pulse Ox 91 97 Oxygen Delivery Method Room Air Nasal Cannula Room Air Oxygen Flow Rate (L/min) 2 03/08/25 13:29 03/08/25 13:29 03/08/25 13:48 Temperature 98.0 F Temperature Source Oral Pulse Rate 74 78 Respiratory Rate 23 H 22 H Respiratory Effort Respiratory Depth Respiratory Pattern Normal Blood Pressure 123/74 H Blood Pressure Mean 90 Pulse Ox 97 96 Oxygen Delivery Method Nasal Cannula Nasal Cannula Oxygen Flow Rate (L/min) 2 2 03/08/25 15:23 03/08/25 16:05 Temperature 98.0 F Temperature Source Pulse Rate 73 72 Respiratory Rate 23 H 21 H Respiratory Effort Respiratory Depth Respiratory Pattern Blood Pressure 115/63 111/69 Blood Pressure Mean 80 83 Pulse Ox 96 96 Oxygen Delivery Method Nasal Cannula Oxygen Flow Rate (L/min) 2 MDM MDM MDM Narrative Medical decision making narrative: Patient is a 84-year-old male presenting to the emergency department for worsening dyspnea with activity. Patient was seen and examined. Vitals are stable. Patient resting in bed comfortably no acute distress. EKG shows sinus rhythm with a sinus arrhythmia at a rate of 72 with left axis deviation. No ischemic changes. Differential includes but is not limited to: COPD exacerbation, pneumonia, CHF exacerbation, CAD, URI, pneumothorax, electrolyte imbalance, anemia Patient given his at home breathing treatments that he brought with him because albuterol gives me a rash. He took his at home steroids and abx at home today for txt of COPD exacerbation. He appears very comfortable on my evaluation. CBC with mild leukocytosis of 12.1, on steroids would expect this, do not think its infectious related. Chronic anemia of 12.1. CMP with very mild hypokalemia of 3.4. No other significant abnormalities. Troponin elevated at 30, no baseline to compare to. Reflex of 31, no significant delta change. BNP within normal limits. Chest x-ray reviewed by myself, no opacities. Radiology read bilateral chronic interstitial changes in the lower lobes. Suspect COPD. Viral swab negative. Patient is on PRN NC and at rest he does not require it. With ambulation he requires his PRN portable oxygen that he has with him 2-4 L with no WOB or hypoxia. When he is on the 2 L he drops to 87% which is appropriate given he has history of COPD. I did offer admission given the patients increased WOB on his PRN 2 L however patient and daughter feel comfortable going home and continuing recently prescribed abx and steroids. Just started on levaquin yesterday. This is appropriate to be discharged however like I said shared decision making was used for admission versus discharge. I think this is likely a COPD exacerbation. Was instructed to take the antibiotics, steroids and use the breathing treatments as prescribed. Daughter states that she is planning on staying keep an eye on him over the next few days. Patient discharged from the Emergency Department. I do not feel that the patient's evaluation reveals any acute reason for admission at this time. I instructed them to either follow-up with their primary care physician or promptly return to the Emergency Department for reevaluation should symptoms worsen or new symptoms develop. I explained what symptoms would indicate the need to return to the emergency department. Shared decision making was used. The patient voiced understanding of the treatment plan and is agreeable with it. Clinical impression Dyspnea History & Record Review Discussion w/independent historian: Patient and Family Lab Data Attestation: I reviewed the patient's lab results. Labs: Laboratory Results - last 24 hr 03/08/25 03/08/25 13:20 15:17 WBC 12.1 H RBC 4.10 L Hgb 12.1 L Hct 38.1 L MCV 92.9 MCH 29.5 MCHC 31.8 L RDW Std Deviation 50.3 H RDW Coeff of David 14.7 H Plt Count 195 MPV 9.6 Immature Gran % (Auto) 1.300 H Neut % (Auto) 78.2 H Lymph % (Auto) 8.7 L [place] % (Auto) 8.9 Eos % (Auto) 2.3 Baso % (Auto) 0.6 Absolute Neuts (auto) 9.5 H Absolute Lymphs (auto) 1.06 Nucleated RBC % 0 Sodium 140 Potassium 3.4 L Chloride 104 Carbon Dioxide 25.1 Anion Gap 11 BUN 13 Creatinine 0.90 Est GFR (MDRD) Non-Af 83 BUN/Creatinine Ratio 14.2 Glucose 129 H Calcium 8.2 Total Bilirubin 0.58 AST 21 ALT 41 Alkaline Phosphatase 76 Troponin T High Sens 30 H Troponin T Hi Sens 2 Hr 31 H NT pro BNP II 568 Total Protein 5.7 L Albumin 3.7 Globulin 2.1 L Albumin/Globulin Ratio 1.7 Radiography Chest X-Ray - ED: Read by ED Physician and No Acute Disease Diagnostic Testing: Clinical Impression(s) from Imaging Studies Chest X-Ray 03/08/25 13:38 IMPRESSION: Bilateral chronic interstitial changes in the lower lobes. Suspect COPD. Reading Location: [place] [id number] Discharge Plan Triage Chief Complaint: Shortness of Breath ED Provider: Fatemeh Newton Dx/Rx/DC Orders Clinical Impression: COPD exacerbation, Dyspnea on exertion Instructions: Discharge Instructions: COPD Prescriptions: No Action rosuvastatin [Crestor] 5 mg tablet 5 mg PO QDAY metoprolol succinate 25 mg tablet extended release 24 hr 25 mg PO DAILY nitroglycerin 0.4 mg tablet, sublingual 0.4 mg sublingual Q5M PRN (Reason: CP) Rx Instructions: do not exceed 3 doses per episode dofetilide 250 mcg capsule 250 mcg PO Q12H Patient Comments: TAKE 1 CAPSULE BY MOUTH EVERY 12 HOURS midodrine 5 mg tablet 5 mg PO 1000,1400,1800 Patient Comments: Takes in the morning and evening and the afternoon dose is PRN if he needs it. Rx Instructions: HOLD if SBP >100 finasteride 5 mg tablet 5 mg PO DAILY Patient Comments: take 1 tablet by mouth once daily duloxetine 60 mg capsule,delayed release(DR/EC) 120 mg PO DAILY Rx Instructions: 60 mg (2 caps) orally daily; Jardiance 25 mg tablet 12.5 mg PO DAILY Patient Comments: LAST DOSE TO BE 08/02/24 FOR SURGERY ON 08/05/24 levalbuterol HCl 0.63 mg/3 mL solution for nebulization 0.63 mg INHALATION TID Patient Comments: USE 1 VIAL 3 TIMES A DAY ICaps AREDS2 250 mg-200 unit -12.5 mg-1 mg capsule 1 cap PO DAILY lorazepam 0.5 mg Tablet 0.5 mg PO QHS Qty: 5 0RF Eliquis 5 mg Tablet 5 mg PO BID Qty: 0 0RF Patient Comments: LAST DOSE TO B 07/31/24 FOR SURGERY ON 08/05/24 pantoprazole 40 mg tablet,delayed release (DR/EC) 40 mg PO DAILY Patient Comments: take 1 tablet by mouth twice a day take before meals Rx Instructions: Before meals ezetimibe 10 mg tablet 10 mg PO QHS guaifenesin [Mucinex] 1,200 mg tablet extended release 12hr 1,200 mg PO BID Stiolto Respimat 2.5-2.5 mcg/actuation mist 2 inh inhalation DAILY tamsulosin 0.4 mg Capsule 0.8 mg PO QHS methocarbamol 750 mg tablet 750 mg PO BID Rx Instructions: for neck pain sucralfate [Carafate] 100 mg/mL suspension 1 g PO DAILY mirtazapine 15 mg Tablet 7.5 mg PO QHS Qty: 0 0RF sennosides-docusate sodium [Senna-S] 8.6-50 mg tablet 1 tab-cap PO DAILY lidocaine 4 % adhesive patch,medicated 2 patch topical DAILY Rx Instructions: may leave on for up to 12 hrs budesonide 0.5 mg/2 mL Suspension For Nebulization 0.5 mg inhalation BID cholecalciferol (vitamin D3) 25 mcg (1,000 unit) Tablet 25 mcg PO DAILYCM Qty: 90 0RF bumetanide 0.5 mg Tablet 1 mg PO MOWEFR PRN (Reason: EDEMA) Qty: 1 0RF Acidophilus Capsule 10 mg PO DAILY acetaminophen 500 mg capsule 500 mg PO Q6H PRN (Reason: pain) Qty: 20 0RF phenazopyridine [Pyridium] 100 mg tablet 100 mg PO TID PRN (Reason: pain) Qty: 14 0RF Primary Care Provider: Arnulfo Rascon Referrals: Sylvester Donald MD [Med Staff - Active Staff, Pulmonary Medicine] - As soon as possible Arnulfo Rascon MD [Primary Care Provider, Family Practice] - As soon as possible Activity Restrictions/Additional Instructions: Wear your as needed oxygen at home for the next few days as needed. Take the antibiotics and steroids as prescribed from your lung doctor. Use the breathing treatments as prescribed. If you started to feel worse you need to return immediately. Your evaluation in the Emergency Department did not reveal any acute reason for admission. However, I want to emphasize that you may be early in the course of a disease process or illness even if it is not present. For this reason you should follow-up within 24 hours for reevaluation with either your primary care physician or if necessary back here in the Emergency Department. You should return to the Emergency Department immediately if your symptoms worsen or new symptoms develop. Print Language: [place] Disposition Disposition: Home, Self Care Discharge Date/Time: 03/08/25 16:34
--- NOTE | 2025-03-08 13:09 | EKG12_ITS ---
Test Reason : Blood Pressure : */* mmHG Vent. Rate : 72 BPM Atrial Rate : 72 BPM P-R Int : 188 ms QRS Dur : 84 ms QT Int : 388 ms P-R-T Axes : 31 -54 52 degrees QTcB Int : 424 ms Sinus rhythm with marked sinus arrhythmia Left axis deviation Abnormal ECG Confirmed by Leander Trejo ([id number]), book or script editor IVANNA NEWMAN ([id number]) on 03/10/2025 8:04:31 AM Referred By: Confirmed By: Leander Trejo
--- OUTSIDE RECORDS SUMMARY | 2025-03-08 13:11 | XMS RPT_ITS | CCD ---
Author Organization [facility] Care Team Providers Care Accountant Cost Name Role Phone MALISSA RASCON Unavailable Unavailable MALISSA RASCON Unavailable Unavailable MALISSA RASCON MD Primary Care Physician Houston Nascimento PT Unavailable Unavailable Latisha Kennedy Unavailable Unavailable Dr. Malissa Rascon Primary Care Provider Dr. Dawit Rai Attending Provider Dr. Dawit Rai Referring Provider 1([facility])[phone] Hanh Rico Emergency Provider Dr. Marilee Yeager Admit Provider Dr. Marilee Yeager Other Provider Dr. Liban Wilhelm Attending Provider Dr. Liban Wilhelm Other Provider Dr. Malissa Rascon Primary Care Provider Dr. Dawit Rai Attending Provider Dr. Dawit Rai Referring Provider Dr. Hanh Rico Emergency Provider Dr. Marilee Yeager Admit Provider Dr. Marilee Yeager Other Provider Dr. Liban Wilhelm Attending Provider Dr. Liban Wilhelm Other Provider MALISSA RASCON MD Primary Care Unavailable MALISSA RASCON MD Attending Unavailable MALISSA RASCON MD Primary Care Unavailable NIKA DONALD MD Attending Unavailable TITI LYMAN MD Attending Unavailable MIKE DEAN, DR DMITRY Ascencio Consulting Rory REYES MD, DR YEAGER Admitting UnavailMALISSA Dumas MD Primary Care Unavailable ADELA ORELLANA MD Consulting Unavailerick RASCON MD, MALISSA Gonzalez Primary Care Unavailable MALISSA RASCON MD Attending Unavailable ABIODUN DEAN, MALISSA Gonzalez Primary Care Unavailable MALISSA RASCON MD Attending Unavailable MALISSA RASCON MD Primary Care Unavailable SHERLYN PERRY-SURVEYING OR SPATIAL SCIENCE TECHNICIAN, VIVIEN Tran Attending Rory RASCON MD, MALISSA Gonzalez Primary Care Unavailable FAIZA PERRY-SURVEYING OR SPATIAL SCIENCE TECHNICIAN, NIKO Attending Unavailab Swapna DEAN, MALISSA Gonzalez Primary Care Unavailable SHABANA DEAN, NIKA Attending Unavailable MALISSA RASCON MD Primary Care Unavailable LENORA POTTS, NIKA Attending Unavailable ABIODUN DEAN, MALISSA Gonzalez Primary Care Unavailable MALISSA RASCON MD Attending Unavailable FEMI DEAN, DR AZAR Calloway Consulting Unavailable MALISSA RASCON MD Primary Care Unavailable JANIA SMALLWOOD MD Attending Unavail able ABIODUN DEAN, MALISSA Gonzalez Primary Care Unavailable MALISSA RASCON MD Attending Unavailable MALISSA RASCON MD Primary Care Unavailable FEMI DEAN, DR AZAR Calloway Attending Unavailable MALISSA RASCON MD Primary Care Unavailable MALISSA RASCON MD Attending Unavailable MALISSA RASCON MD Primary Care Unavailable SHABANA DEAN, NIKA Attending Unavailable ALDA MONTES MD Consulting Unavailable MIKE DEAN, DR DMITRY Ascencio Admitting Rory RASCON MD, MALISSA Gonzalez Primary Care Unavailable MIKE DEAN, DR DMITRY Ascencio Attending PAULA Rutledge DO Consulting Unavailerick MCKEON MD, DR DMITRY Ascencio Consulting LYNDON Crawley MD Consulting MALISSA Guevara MD Primary Care Unavailable NIKA DONALD MD Attending Unavailable MALISSA RASCON MD Primary Care Unavailable SAM HADLEY PA-C Attending Unavailable DR TOY REYES MD Consulting Unavailab MALISSA Barcenas MD Primary Care Unavailable ISAAK HAYNES Attending Unavailable ABIODUN DEAN, MALISSA Gonzalez Primary Care Unavailable MALISSA RASCON MD Attending Unavailable MALISSA RASCON MD Consulting MALISSA Guevara MD Primary Care Unavailable DR AZAR KAHN MD Attending Unavailable MALISSA RASCON MD Consulting Unavailable MALISSA RASCON MD Primary Care Unavailable FEMI DEAN, DR AZAR Calloway Attending Unavailable MALISSA RASCON MD Primary Care Unavailable NIKA DONALD MD Attending Unavailable ABIODUN DEAN, MALISSA Gonzalez Primary Care Unavailable FEMI DEAN, DR AZAR Calloway Attending Unavailable SANG DIAZ DO Attending Unavailable FAIZA SENIOR MANAGER QUALITY ASSURANCE-SURVEYING OR SPATIAL SCIENCE TECHNICIAN, NIKO Consulting Unavailab artem PLATA SENIOR MANAGER QUALITY ASSURANCE-SURVEYING OR SPATIAL SCIENCE TECHNICIAN, VIVIEN Tran Admitting UnaMALISSA Carvalho MD Primary Care Unavailable ABIODUN DEAN, MALISSA Gonzalez Primary Care Unavailable ABIODUN DEAN, MALISSA Gonzalez Attending Unavailable Abiodun DEAN, Malissa Pedro Primary Care Provider [phone] Nika Mobley Unavailable Azar Kahn MD Unavailable Aleksandra Izquierdo MD Unavailable MALISSA RASCON [facility] Care Unavailable NICANOR CHESTER Attending Unavailable IZQUIERDO, ALEKSANDRA Evon Referring Unavailable RASCON, [facility] Care Unavailable OLEGHE, IFIJEN FINA Referring Unavaila ble RASCON, [facility] Care Unavailable RASCON, [facility] Primary Care Unavailable IZQUIERDOALEKSANDRA Admitting Unavailable IZQUIERDO, ALEKSANDRA M Ref[facility] Un[facility] THAO SHANKAR Attending Unavailable MO SALAS Consulting Unavailable ALEKSANDRA IZQUIERDO Attending Un[facility] MICHAEL NOEL Attending Unavailable IZQUIERDO, ALEKSANDRA M Referring Unavailable RASCON, [facility] Unavailable IZQUIERDO, ALEKSANDRA M Referring Unavailable ABIODUN MALISSA [facility] Care Unavailable MICHELLE, SHANTI A Ref[facility] Un[facility] LETI ALVAREZ Admitting Unavailable OLEGHE, IFIJEN FINA Attending Unavaila ble DUFFPRISCILLA FENTON Consulting Unavaila KAYLIE Holman Admitting Unavailable MICHELLE, SHANTI A Referring Unavailable JAIMIE ALICEA Attending Unavailable CHIRAG LIM Consulting Unavailab artem Rascon MD, Dr. Arredondo Primary Care Provider Pablo DEAN, Dr. Parrish Donohue Admit Provider Pablo DEAN, Dr. Parrish Donohue Attending Provider Pablo DEAN, Dr. Parrish Donohue Referring Provider Pablo DEAN, Dr. Parrish Donohue Other Provider [phone] Queta DO, Dr. Jasmyne Cox Attending Provide r Shabana DEAN, Dr. Nika Abebe Attending Provider Shabana DEAN, Dr. Nika Abebe Referring Provider Abiodun DEAN, Dr. Arredondo Primary Care Provider [phone] Gabby DEAN, Dr. Juaquin Tinajero Attending Provider Gabby DEAN, Dr. Juaquin Tinajero Referring Provider [phone] Abiodun DEAN, Dr. Arredondo Primary Care Provider Shabana DEAN, Dr. Nika Abebe Attending Provider Shabana DEAN, Dr. Nika Aebbe Referring Provider [phone] Abiodun DEAN, Dr. Arredondo Referring Provider [phone] Lawson Jin Attending Provider Juaquin Pierre Attending Unavailable Juaquin Pierre Referring Unavailable Rascon, Malissa Primary Care Unavailable Pablo, Parrish Chi Consulting Unavailable Rascon, Malissa Primary Care Unavailable SemenJasmyne stevenson Attending Unavaila ble Pablo, Parrish Chi Admitting Unavailable Rascon, Malissa Primary Care Unavailable Lawson Stephens Attending Unavailable Rascon, Malissa Referring Unavailable Sibilia, Nika V Referring Unavailable Sibilia, Nika V Attending Unavailable Rascon, Malissa Primary Care Unavailable Rascon, Malissa Primary Care Unavailable Pablo, Parrish Chi Attending Unavailable Pablo, Parrish Chi Referring Unavailable Sibilia, Nika V Attending Unavailable Rascon, Malissa Primary Care Unavailable Sibilia, Nika V Referring Unavailable Sibilia, Nika V Referring Unavailable Rascon, Malissa Primary Care Unavailable Sibilia, Nika V Attending Unavailable Rascon, Malissa Primary Care Unavailable Pablo, Parrish Chi Attending Unavailable Pablo, Parrish Chi Admitting Unavailable Rascon, Malissa Primary Care Unavailable GabbyJuaquin la Attending Unavailable GabbyJuaquin Referring Unavailable Rascon, Malissa Primary Care Unavailable Sibilia, Nika V Attending Unavailable Sibilia, Nika V Attending Unavailable Rascon, Malissa Primary Care Unavailable Sibilia, Nika V Referring Unavailable Rascon, Malissa Primary Care Unavailable Pablo, Parrish Chi Attending Unavailable Pablo, Parrish Chi Referring Unavailable Rascon, Malissa Primary Care Unavailable Pablo, Parrish Chi Attending Unavailable Pablo, Parrish Chi Referring Unavailable MALISSA RASCON MD Primary Care Unavailable DR AZAR KAHN MD Attending Unavailable NIKA DONALD MD, V Consulting Unavailable MALISSA RASCON MD Primary Care Unavailable MALISSA RASCON MD Attending Unavailable HOUSTON CRISTOBAL DO Attending Unavailable MALISSA RASCON MD Primary Care Unavailable DR AZAR KAHN MD Attending Unavailable MALISSA RASCON MD Primary Care Unavailable MALISSA RASCON MD Consulting Unavailable MALISSA RASCON MD Primary Care Unavailable TWYLA WALKER DO Attending Unavailable DR AZAR KAHN MD Attending Unavailable MALISSA RASCON MD Primary Care Unavailable MALISSA RASCON MD Consulting Unavailable MADDY OTERO Attending Unavail able MALISSA RASCON MD Primary Care Unavailable Allergies Allergy Classification Reported Allergen(s) Allergy Type Date of Onset Reaction(s) Facility (20 sources) traMADol; Translations: [TRAMADOL] Drug Allergy 4 Unknown [facility] Comment on above: pt and daughter unsu re of reaction (20 sources) Clindamycin; Translations: [CLINDAMYCIN] Drug Allergy 4 Hives, Weal (disorder) [facility] (20 sources) terbinafine; Translations: [TERBINAFINE] Drug Allergy 4 Hives, Weal (disorder) [facility] (6 sources) Mirtazapine; Translations: [mirtazapine] Drug Allergy 5 Insomnia (disorder) [facility] (1 source) Clindamycin Drug Allergy 5 [facility] (1 source) Mirtazapine Drug Allergy 5 [facility] (1 source) terbinafine Drug Allergy 5 [facility] (1 source) traMADol Drug Allergy 5 [facility] Medications Current Medications Medication Drug Class(es) Dates Sig (Normalized) Sig (Original) acetaminophen 500 mg oral capsule (20 sources) Start: 08-05-2024 take 1 capsule by mouth every six hours as needed for pain Acetaminophen 500 mg capsule Active 500 mg PO EVERY 6 HOURS as needed for pain August 05, 2024 12:00am Start: 07-22-2024 End: 10-08-2024 take 1 capsule by mouth three times daily Acetaminophen 500 mg capsule Discontinued 500 mg PO THREE TIMES A DAY July 22, 2024 12:00am October 08, 2024 1:23pm Start: 03-01-2024 End: 03-12-2024 take 2 tablets by mouth every eight hours Acetaminophen 500 mg tablet Discontinued 1000 mg PO EVERY 8 HOURS March 01, 2024 1:00am March 12, 2024 2:11pm pain Start: 04-10-2023 End: 01-22-2024 take 2 tablets by mouth every six hours as needed for pain Acetaminophen 500 mg Tablet Discontinued 1000 mg PO EVERY 6 HOURS NEEDED as needed for Pain Score 1-3 0 0 April 10, 2023 1:00am January 22, 2024 3:32pm Start: 04-10-2023 take 1000 mg by mout h every six hours as needed Acetaminophen Active 1000 MG PO EVERY 6 HOURS NEEDED 0 April 10, 2023 1:00am Start: 04-01-2023 End: 04-10-2023 take 2 tablets by mouth every four hours as needed for pain Acetaminophen 325 mg Tablet Discontinued 650 mg PO EVERY 4 HOURS NEEDED as needed for Fever, pain 1-12/23 1 0 April 01, 2023 1:00am April 10, 2023 3:21pm Start: 04-01-2023 End: 04-10-2023 take 650 mg by mouth every four hours as needed Acetaminophen Discontinued 650 MG PO EVERY 4 HOURS NEEDED 1 April 01, 2023 1:00am April 10, 2023 3:21pm Start: 09-27-2018 End: 04-01-2023 take 1 tablet by mouth every four hours as needed for pain Acetaminophen 500 mg tablet Discontinued 500 mg PO Q4H as needed for Pain May 22, 2021 1:00am April 01, 2023 5:47pm Start: 01-05-2018 End: 01-21-2018 Acetaminophen 325 MG capsule Discontinued 325 mg PO NEEDED as needed for back pain January 05, 2018 12:00am January 21, 2018 2:54pm amoxicillin 875 mg / clavulanate 125 mg oral tablet (10 sources) Penicillin-class Antibacterial Start: 10-08-2024 Amoxicillin-Pot Clavulanate 875-125 mg tablet Active 1 {tbl} PO TWICE A DAY 20 10 October 08, 2024 12:00am October 17, 2024 12:00am Start: 04-01-2023 End: 04-10-2023 Amoxicillin-Pot Clavulanate (Augmentin) 500-125 mg tablet Discontinued 1 {tbl} PO THREE TIMES A DAY 21 April 01, 2023 1:00am April 10, 2023 3:21pm Antibiotic start 04/01/23 Start: 04-30-2022 End: 05-10-2022 take 1 tablet by mouth every twelve hours amoxicillin-clavulanate 875 mg-125 mg oral tablet 1 tab(s), Oral, q12h, X 10 day(s), # 20 tab(s), 0 Refill(s), 05/10/22 10:29:00 EST, Pharmacy: [facility]/pharmacy #[id number], Atrial fibrillation (HFpEF) heart failure with preserved ejection fraction, 170.4, cm, 04/30/22 9:56:00 EST, Height, 85.9 Start Date: 04/30/22 Stop Date: 05/10/22 Status: Ordered apixaban 5 mg oral tablet (20 sources) Factor Xa Inhibitor Start: 04-10-2023 take 1 tablet by mouth twice daily Apixaban (Eliquis) 5 mg Tablet Active 5 mg PO TWICE A DAY 0 April 10, 2023 1:00am BLOOD THINNER Start: 01-06-2018 End: 04-01-2023 take 1 tablet by mouth twice daily Apixaban 5 mg tablet Discontinued 5 mg PO TWICE A DAY 180 February 01, 2018 5:13pm June 27, 2021 2:42pm On Hold: 05/24/21[facility] Asmanex HFA 200 mcg/inh inhalation aerosol (3 sources) Start: 12-05-2020 take 1 dose by mouth twice daily Asmanex HFA 200 mcg/inh inhalation aerosol Dose = 2 puff(s), Inhalation, BID, rinse mouth and throat after use, # 13 gram(s), 0 Refill(s) Start Date: 12/05/20 Status: Ordered azithromycin 500 mg oral tablet (3 sources) Macrolide Antimicrobial Start: 12-30-2022 End: 01-06-2023 azithromycin 500 mg oral tablet Dose : 500 mg = 1 tab(s), Oral, qDay, X 7 day(s), # 7 tab(s), 0 Refill(s), 01/06/23 4:12:00 PM EDT, Pharmacy: [facility]/pharmacy #[id number], Shortness of breath Cough, 170, cm, 12/30/22 14:34:00 EDT, Height, 87.3, kg, 12/30/22 14:34:00 EDT, Dosing Weight Start Date: 12/30/22 Stop Date: 01/06/23 Status: Ordered Start: 04-20-2021 End: 04-25-2021 take 1 tablet by mouth once daily Zithromax Z-Alexandr 250 mg oral tablet 1 dose, Oral, Daily, # 6 tab(s), 0 Refill(s), Dehydration, 86.6 Start Date: 04/20/21 Stop Date: 04/25/21 Status: Ordered budesonide 0.25 mg/ml inhalation suspension (20 sources) Corticosteroid Start: 03-01-2024 take 0.5 mg by inhalation once daily Budesonide 0.5 mg/2 mL Suspension For Nebulization Active 0.5 mg INHALATION DAILY March 01, 2024 1:00am Start: 01-20-2024 take 1 dose by inhal ation once daily budesonide 0.25 mg/2 mL inhalation suspension Dose : 0.25 mg = 2 mL, Inhalation, qDay, 0 Refill(s) Start Date: 01/20/24 Status: Ordered Repeat number: 1 Start: 04-01-2023 End: 03-01-2024 take 0.5 mg by inhalation twice daily Budesonide 0.5 mg/2 mL Suspension For Nebulization Active 0.5 mg INHALATION TWICE A DAY March 01, 2024 1:00am Asthma Start: 02-05-2022 End: 01-31-2023 take 1 mL by inhalation twice daily budesonide 1 mg/2 mL inhalation suspension Dose : 0.5 mg = 1 mL, Inhalation, BID, # 60 mL, 11 Refill(s), Pharmacy: [facility]/pharmacy #[id number], 170.5, cm, 02/05/22 13:01:00 EST, Height Start Date: 02/05/22 Stop Date: 01/31/23 Status: Ordered bumetanide 0.5 mg oral table t (20 sources) Loop Diuretic Start: 01-20-2024 Start: 04-10-2023 End: 03-12-2024 Bumetanide 0.5 mg Tablet Discontinued 1 mg PO MOWEFR as needed for EDEMA January 15, 2024 12:00am March 12, 2024 2:25pm Start: 04-10-2023 Bumetanide Act gabriella 1 MG PO MOWEFR 0 April 10, 2023 1:00am Start: 03-27-2023 End: 04-01-2023 take 1 tablet by mouth once daily Bumetanide 1 mg tablet Discontinued 1 mg PO DAILY March 29, 2023 1:00am April 01, 2023 5:48pm Water pill Start: 05-23-2022 bumetanide 0.5 mg oral tablet Dose : 0.5 mg = 1 tab(s), Oral, Daily, # 90 tab(s), 3 Refill(s), Pharmacy: [email or web address] ), 172.7, cm, 05/23/22 10:19:00 EST, Height Start Date: 05/23/22 Status: Ordered Start: 02-26-2022 bumetanide 0.5 mg oral tablet Dose : 0.5 mg = 1 tab(s), Oral, Daily, # 30 tab(s), 11 Refill(s), Pharmacy: [facility]/pharmacy #[id number], 172.7, cm, 02/26/22 15:26:00 EST, Height Start Date: 02/26/22 Status: Ordered carvedilol 6.25 mg oral tablet (20 sources) alpha-Adrenergic Megan, beta-Adrenergic Megan Start: 10-08-2022 End: 10-03-2023 carvedilol 6.25 mg oral tablet Dose : 6.25 mg = 1 tab(s), Oral, BID, # 60 tab(s), 11 Refill(s), other reason (Rx) Start Date: 10/08/22 Stop Date: 10/03/23 Status: Ordered Start: 04-28-2022 Coreg 6.25 mg oral tablet Dose : 6.25 mg = 1 tab(s), Oral, BIDM, # 180 tab(s), 3 Refill(s), Pharmacy: [facility] ([facility] ), 172.7, cm, 04/26/22 18:32:00 EST, Height Start Date: 04/28/22 Status: Ordered Start: 03-12-2022 carvedilol 3.1 25 mg oral tablet Dose : 3.125 mg = 1 tab(s), Oral, BID, # 60 tab(s), 2 Refill(s), Pharmacy: [facility] ([facility] ), Hypotension Atrial fibrillation, 172.7, cm, 02/26/22 15:26:00 EST, Height, kg, 02/26/22 15:26:00 EST, Dosing Weight Start Date: 03/12/22 Status: Ordered Start: 11-15-2021 carvedilol 3.1 25 mg oral tablet Dose : 3.125 mg = 1 tab(s), Oral, BID, # 60 tab(s), 3 Refill(s), Pharmacy: [facility]/pharmacy #[id number], Hypotension Atrial fibrillation, 170.5, cm, 11/15/21 7:36:00 EDT, Height Start Date: 11/15/21 Status: Ordered Start: 02-03-2019 End: 06-27-2021 take 1 tablet by mouth twice daily Carvedilol (Coreg) 6.25 mg tablet Discontinued 6.25 mg PO TWICE A DAY February 03, 2019 1:00am June 27, 2021 2:44pm cephalexin 500 mg oral capsule (1 source) Cephalosporin Antibacterial Start: 07-16-2024 End: 07-21-2024 cephalexin 500 mg oral capsule Dose : 500 mg = 1 cap(s), Oral, q12h, X 5 day(s), # 10 cap(s), 0 Refill(s), 07/21/24 10:09:00 AM EDT, Pharmacy: [id number], Gross hematuria, 168, cm, 07/16/24 9:49:00 EDT, Height, 174.8, kg, 07/16/24 9:49:00 EDT, Dosing Weight Start Date: 07/16/24 Stop Date: 07/21/24 Status: Ordered Quantity: 10.0 Unit: cap(s) Repeat number: 1 Indications: Gross hematuria; cholecalciferol 0.025 mg oral tablet (20 sources) Vitamin D Start: 03-12-2024 take 1 tablet by mouth once daily at mealtime Cholecalciferol (Vitamin D3) 25 mcg (1,000 unit) Tablet Active 25 ug PO DAILY WITH MEALS 90 0 March 12, 2024 1:00am Start: 12-01-2023 take 1 tablet by manuel th once daily cholecalciferol (VITAMIN D3) 5,000 unit tab Take 5,000 Units by mouth once daily. 12/01/2023 Active Start: 05-22-2021 End: 03-12-2024 take 1 tablet by mouth once daily Cholecalciferol (Vitamin D3) 25 mcg (1,000 unit) tablet Discontinued 5000 U PO DAILY May 22, 2021 1:00am March 12, 2024 2:14pm supplement Start: 05-22-2021 take 25 ug by mouth once daily Cholecalciferol (Vitamin D3) Active 25 MCG PO DAILY May 22, 2021 1:00am codeine phosphate 2 mg/ml / guaiFENesin 20 mg/ml oral solution (1 source) Opioid Agonist Start: 12-19-2022 End: 01-02-2023 take 1 dose by mouth every six hours as needed for cough and congestion codeine-guaifenesin 10 mg-100 mg/5 mL oral syrup Dose = 5 mL, Oral, q6h, PRN as needed for cough and congestion, X 7 day(s), # 120 mL, 1 Refill(s), Pharmacy: [facility]/pharmacy #[id number], Atrial fibrillation Persistent cough, 168.5, cm, 12/19/22 9:38:00 EDT, Height, 86.4, kg, 12/19/22 9:38:00 EDT, Dosing Weight Start Date: 12/19/22 Stop Date: 01/02/23 Status: Ordered docusate sodium 50 mg / sennosides, retirement 8.6 mg oral tablet (6 sources) Start: 03-01-2024 Sennosides-Docusate Sodium (Senna-S) 8.6-50 mg tablet Active 1 NMA PO DAILY March 01, 2024 1:00am stool softener Start: 03-01-2024 Sennosides-Doc usate Sodium (Senna-S) 8.6-50 mg tablet Active 2 NMA PO TWICE A DAY March 01, 2024 1:00am dofetilide 0.25 mg oral capsule (20 sources) Antiarrhythmic Start: 11-19-2023 Tikosyn 250 mc g oral capsule Dose : 250 mcg = 1 cap(s), Oral, q12h, # 180 cap(s), 3 Refill(s), Pharmacy: [facility], 172.7, cm, 11/04/23 12:59:00 EDT, Height, kg, 11/04/23 12:59:00 EDT, Dosing Weight Start Date: 11/19/23 Status: Ordered Quantity: 180.0 Unit: cap(s) Repeat number: 4 Start: 03-29-2023 take 1 capsule by [facility] every twelve hours Dofetilide 250 mcg capsule Active 250 ug PO Q12H March 29, 2023 1:00am afib Start: 03-29-2023 Dofetilide Act gabriella MCG March 29, 2023 12:00am Start: 02-13-2023 Tikosyn 250 mc g oral capsule Dose : 250 mcg = 1 cap(s), Oral, q12h, # 180 cap(s), 3 Refill(s), 172.7, cm, 02/11/23 3:45:00 EST, Height, kg, 02/11/23 3:45:00 EST, Dosing Weight Start Date: 02/13/23 Status: Ordered take 1 capsule by [facility] twice daily dofetilide (TIKOSYN) 250 mcg capsule Take 250 mcg by mouth two times a day. Active DULoxetine 60 mg delayed release oral capsule (20 sources) Serotonin and Norepinephrine Reuptake Inhibitor Start: 03-29-2023 Duloxetine Active MG PO March 29, 2023 12:00am Start: 08-27-2022 End: 03-12-2024 take 1 capsule by mouth once daily Duloxetine 60 mg capsule,delayed release(DR/EC) Active 120 mg PO DAILY March 29, 2023 1:00am mood 60 mg (2 caps) orally daily; empagliflozin 25 mg oral tablet (20 sources) Sodium-Glucose Cotransporter 2 Inhibitor Start: 01-09-2023 take 1 tablet by mouth once daily Empagliflozin (Jardiance) 25 mg tablet Active 12.5 mg PO DAILY March 29, 2023 1:00am heart Start: 07-31-2022 empagliflozin 25 mg oral tablet Dose : 12.5 mg = 0.5 tab(s), Oral, qAM, # 15 tab(s), 3 Refill(s), Pharmacy: [facility], 172.7, cm, 07/03/22 14:37:00 EDT, Height Start Date: 07/31/22 Status: Ordered Start: 04-28-2022 empagliflozin 10 mg oral tablet Dose : 10 mg = 1 tab(s), Oral, qAM, # 90 tab(s), 3 Refill(s), Pharmacy: [facility] ([facility] 172.7, cm, 04/26/22 18:32:00 EST, Height Start Date: 04/28/22 Status: Ordered empagliflozin (Sonu [place]) 25 mg tablet Take 12.5 mg by mouth daily with breakfast. Take 1/2 of 25mg tablet. Active ergocalciferol, vitamin D2, (VITAMIN D2 ORAL) (5 sources) ergocalciferol, vitamin D2, (VITAMIN D2 ORAL) Take by mouth. Active ezetimibe 10 mg oral tablet (20 sources) Dietary Cholesterol Absorption Inhibitor Start: take 1 tablet by mouth at bedtime Ezetimibe 10 mg tablet Active 10 mg PO AT BEDTIME October 24, 2023 12:00am cholesterol finasteride 5 mg oral tablet (20 sources) 5-alpha Reductase Inhibitor Start: Finasteride Active MG March 29, 2023 12:00am Start: 03-26-2023 take 1 tablet by manuel once daily Finasteride 5 mg tablet Active 5 mg PO DAILY March 29, 2023 1:00am bph Start: 02-05-2022 End: 01-31-2023 finasteride 5 mg oral tablet Dose : 5 mg = 1 tab(s), Oral, qDay, # 90 tab(s), 3 Refill(s), Pharmacy: [facility] ([facility]), 170.5, cm, 02/05/22 13:01:00 EST, Height Start Date: 02/05/22 Stop Date: 01/31/23 Status: Ordered Start: 07-07-2022 finasteride 5 mg oral tablet 0 Refill(s) Start Date: 09/19/21 Status: Ordered Start: 04-11-2020 End: 06-27-2021 take 1 tablet by mouth once daily Finasteride 5 mg tablet Discontinued 5 mg PO DAILY April 11, 2020 1:00am June 27, 2021 2:44pm furosemide 40 mg oral tablet (3 sources) Loop Diuretic Start: 07-08-2023 Lasix 40 mg or al tablet Dose : 40 mg = 1 tab(s), Oral, qDay, # 90 tab(s), 0 Refill(s), Pharmacy: [facility] #[id number], 173, cm, 06/05/23 13:18:00 EDT, Height, kg, 06/05/23 13:18:00 EDT, Dosing Weight Start Date: 07/08/23 Status: Ordered 12 hr guaiFENesin 1200 mg extended release oral tablet (20 sources) Start: 10-24-2023 End: 04-13-2025 take 1 tablet by mouth twice daily, then take 1 tablet by mouth every twelve hours Guaifenesin (Mucinex) 1,200 mg tablet extended release 12hr Active 1200 mg PO TWICE A DAY October 24, 2023 12:00am mucus relief Start: 06-05-2023 End: 06-12-2023 Mucinex 600 mg oral tablet, extended release Dose : 600 mg = 1 tab(s), Oral, q12h, # 14 tab(s), 0 Refill(s) Start Date: 06/05/23 Stop Date: 06/12/23 Status: Ordered Start: 05-22-2021 End: 04-10-2023 take 1 tablet by mouth twice daily, then take 1 tablet by mouth every twelve hours Guaifenesin (Mucinex) 600 mg tablet extended release 12hr Discontinued 600 mg PO TWICE A DAY May 22, 2021 1:00am April 10, 2023 3:22pm cough Start: 04-24-2021 take 1 mg by mouth e very twelve hours Mucinex 600 mg oral tablet, extended release mg = tab(s), Oral, q12h, 0 Refill(s) Start Date: 04/24/21 Status: Ordered Start: 04-24-2021 take 1 mg by mouth e very twelve hours Mucinex 600 mg oral tablet, extended release mg = tab(s), Oral, q12h, 0 Refill(s) Start Date: 04/24/21 Status: Ordered Inulin (1 source) Start: 01-04-2019 Fiber Choice g raffy(s) =, Chewed, TID, 0 Refill(s) Start Date: 01/04/19 Status: Ordered Lactobacillus Acidoph and Bulgar (FLORANEX) 100 million cell grpk (10 sources) Start: 12-23-2023 take 1 dose by mouth three times daily at mealtime Lactobacillus Acidoph and Bulgar (FLORANEX) 100 million cell grpk Take 1 Packet by mouth three times a day with meals. 90 Packet 12/23/2023 Active lactobacillus acidophilus 10 mg oral tablet (9 sources) Start: 07-22-2024 take 1 capsule by mouth once daily Lactobacillus Acidophilus (Acidophilus) capsule Active 10 mg PO DAILY July 22, 2024 12:00am Start: 03-25-2024 End: 03-20-2025 take 1 capsule by mouth once daily Acidophilus oral capsule Dose = 1 cap(s), Oral, qDay, # 30 cap(s), 11 Refill(s), Pharmacy: [facility], COPD/pulmonary fibrosis Empyema of lung, 172.7, cm, 03/25/24 13:33:00 EST, Height, kg, 03/25/24 13:33:00 EST, Dosing Weight Start Date: 03/25/24 Stop Date: 03/20/25 Status: Ordered Quantity: 30.0 Unit: cap(s) Repeat number: 12 Indications: Chronic obstructive pulmonary disease, unspecified; Pyothorax without fistula; Start: 06-05-2023 Lyudmila Source M ulti-Probiotic qDay, 0 Refill(s) Start Date: 06/05/23 Status: Ordered levalbuterol 0.21 mg/ml inhalation solution (20 sources) beta2-Adrenergic Agonist Start: 03-29-2023 take 0.63 mg by inhalation three times daily Levalbuterol Hcl 0.63 mg/3 mL solution for nebulization Active 0.63 mg INHALATION THREE TIMES A DAY March 29, 2023 1:00am copd Start: 03-29-2023 Levalbuterol H cl Active MG INHALATION March 29, 2023 12:00am Start: 01-09-2023 Xopenex 0.63 m g/3 mL inhalation solution Dose : 0.63 mg = 3 mL, Nebulized, TID, DC albuterol d/t afib with RVR., # 90 EA, 0 Refill(s), Pharmacy: [facility], COPD (chronic obstructive pulmonary disease), 168.5, cm, 01/09/23 13:16:00 EDT, Height, kg, 01/09/23 13:16:00 EDT, Dosing Weight Start Date: 01/09/23 Status: Ordered Quantity: 90.0 Unit: EA Repeat number: 1 Indications: Chronic obstructive pulmonary disease, unspecified; Start: 01-09-2023 take 1 dose by inhal ation three times daily Xopenex 0.63 mg/3 mL inhalation solution Dose : 0.63 mg = 3 mL, Nebulized, TID, DC albuterol d/t afib with RVR., # 90 EA, 0 Refill(s), Pharmacy: [facility], COPD (chronic obstructive pulmonary disease), 168.5, cm, 01/09/23 13:16:00 EDT, Height, kg, 01/09/23 13:16:00 EDT, Dosing Weight Start Date: 01/09/23 Status: Ordered Start: 12-25-2022 take 1 dose by inhal ation three times daily Xopenex 0.63 mg/3 mL inhalation solution Dose : 0.63 mg = 3 mL, Nebulized, TID, DC albuterol d/t afib with RVR., # 24 EA, 0 Refill(s), Pharmacy: [facility]/pharmacy #[id number], COPD (chronic obstructive pulmonary disease), 168.5, cm, 12/25/22 13:09:00 EDT, Height, kg, 12/25/22 13:09:00 EDT, Dosing Weight Start Date: 12/25/22 Status: Ordered Start: 12-16-2022 take 1 dose by inhal ation three times daily Xopenex 0.63 mg/3 mL inhalation solution Dose : 0.63 mg = 3 mL, Nebulized, TID, DC albuterol d/t afib with RVR., # 24 EA, 0 Refill(s), Pharmacy: [facility]/pharmacy #[id number], 172.7, cm, 12/13/22 21:14:00 EDT, Height, kg, 12/16/22 4:28:00 EDT, Dosing Weight Start Date: 12/16/22 Status: Ordered levalbuterol (XO PENEX) 0.63 mg/3 mL nebulizer solution Use 1 Ampule via nebulizer three times a day. Active levoFLOXacin 500 mg oral tablet (2 sources) Quinolone Antimicrobial Start: 10-27-2022 levoFLOXacin 500 mg oral tablet 0 Refill(s), 86.3 Start Date: 10/27/22 Status: Ordered Start: 09-19-2022 End: 09-28-2022 levoFLOXacin 750 mg oral tab let Dose : 750 mg = 1 tab(s), Oral, q24h, # 10 tab(s), 0 Refill(s), 85.5 Start Date: 09/19/22 Stop Date: 09/28/22 Status: Ordered lidocaine 0.04 mg/mg medicated patch (6 sources) Antiarrhythmic, Amide Local Anesthetic Start: 03-02-2024 lidocaine (SALONPAS) 4 % patch Apply 2 Patches as directed once daily. 3 Patch 03/02/2024 Active Start: 03-01-2024 Lidocaine 4 % adhesive patch,medicated Active 2 NMA TOPICAL DAILY March 01, 2024 1:00am pain may leave on for up to 12 hrs LORazepam 0.5 mg oral tablet (20 sources) Benzodiazepine Start: 07-04-2017 End: 02-28-2025 take 1 tablet by mouth at bedtime Lorazepam 0.5 mg Tablet Active 0.5 mg PO AT BEDTIME 5 0 April 01, 2023 1:00am Anxiety mecobalamin 1 mg chewable tablet (9 sources) Start: 05-22-2021 take 1000 ug by mouth once daily Mecobalamin (Vitamin B12) Active 1000 MCG PO DAILY May 22, 2021 12:00am methocarbamol 750 mg oral tablet (20 sources) Muscle Relaxant Start: 11-20-2023 End: 08-27-2025 take 1 tablet by mouth twice daily for pain Methocarbamol 750 mg tablet Active 750 mg PO TWICE A DAY November 20, 2023 12:00am Muscle Relaxer for neck pain Start: 08-25-2023 methocarbamol 750 mg oral tablet Dose : 750 mg = 1 tab(s), Oral, TID, # 90 tab(s), 0 Refill(s), Pharmacy: [facility] #[id number], Low back pain, 173, cm, 06/05/23 13:18:00 EDT, Height, kg, 06/05/23 13:18:00 EDT, Dosing Weight Start Date: 08/25/23 Status: Ordered Start: 04-01-2023 End: 11-20-2023 take 1 tablet by mouth three times daily for pain Methocarbamol 750 mg tablet Discontinued 750 mg PO THREE TIMES A DAY 90 30 0 April 10, 2023 3:24pm November 20, 2023 5:58pm Muscle Relaxer for neck pain methylPREDNISolone 4 mg oral tablet (1 source) Corticosteroid Start: 10-27-2022 End: 11-02-2022 Medrol Dosepak 4 mg oral tablet 1 packet(s), Oral, qDay, as directed on package labeling, X 6 day(s), # 21 tab(s), 0 Refill(s), 11/02/22 2:26:00 PM EDT, Pharmacy: [facility]/pharmacy #[id number], Chronic hip pain, 168, cm, 10/27/22 14:10:00 EDT, Height, kg, 10/27/22 14:10:00 EDT, Dosing Weight Start Date: 10/27/22 Stop Date: 11/02/22 Status: Ordered 24 hr metoprolol succinate 25 mg extended release oral tablet (20 sources) beta-Adrenergic Megan Start: 09-11-2023 take 0.5 tablet by mouth once daily metoprolol succinate 50 mg oral TABLET extended release 0.5 tab, Oral, qDay, Do not crush or chew (controlled release), # 45 tab(s), 3 Refill(s), other reason (Rx) Start Date: 09/11/23 Status: Ordered Start: 06-09-2023 metoprolol suc cinate 50 mg oral TABLET extended release Dose : 50 mg = 1 tab(s), Oral, qDay, Do not crush or chew (controlled release), # 30 tab(s), 6 Refill(s), Pharmacy: [facility] #[id number], 173, cm, 06/05/23 13:18:00 EDT, Height, kg, 06/05/23 13:18:00 EDT, Dosing Weight Start Date: 06/09/23 Status: Ordered Start: 03-26-2023 End: 03-27-2023 metoprolol succinate 25 mg o ral TABLET extended release Start: 03/27/23 8:00:00 AM EST, Dose = 25 mg, = 1 tab(s), Oral, 0, 03/26/23 8:00:00 EST Start Date: 03/27/23 Stop Date: 03/27/23 Status: Completed Start: 03-25-2023 End: 03-25-2023 metoprolol succinate 25 mg o ral TABLET extended release Start: 03/25/23 8:00:00 AM EST, Dose = 25 mg, = 1 tab(s), Oral, 0, 03/23/23 11:11:00 EST Start Date: 03/25/23 Stop Date: 03/25/23 Status: Completed Start: 02-11-2023 End: 02-11-2023 Lopressor Start: 02/11/23 12 :00:00 AM EST, Dose = 5 mg, = 5 mL, IV Push, Once, Stop: 02/11/23 12:02:04 AM EST, 02/10/23 23:52:00 EST Start Date: 02/11/23 Stop Date: 02/11/23 Status: Completed Start: 06-27-2021 take 1 tablet by manuel th once daily Metoprolol Succinate 25 mg tablet extended release 24 hr Active 25 mg PO DAILY June 27, 2021 12:00am AFIB Start: 01-21-2018 End: 02-09-2018 take 1 tablet by mouth twice daily Metoprolol Tartrate 25 mg tablet Discontinued 25 mg PO TWICE A DAY 30 3 January 21, 2018 1:00am February 09, 2018 5:13pm midodrine hydrochloride 5 mg oral tablet (20 sources) alpha-Adrenergic Agonist Start: 03-29-2023 Midod rine Active MG March 29, 2023 12:00am Start: 03-27-2023 Midodrine 5 mg tablet Active 5 mg PO 1000,1400,1800 March 29, 2023 1:00am blood pressure HOLD if SBP >100 Mucus Relief ER 1200 mg oral tablet, extended release (11 sources) Start: 04-26-2022 Mucus Relief E R 1200 mg oral tablet, extended release Dose : 1,200 mg = 1 tab(s), Oral, qAM, 0 Refill(s) Start Date: 04/26/22 Status: Ordered nitroglycerin 0.4 mg sublingual tablet (20 sources) Nitrate Vasodilator Start: 11-19-2023 nitroglyce rin 0.4 mg sublingual tablet 0.4 mg Dose = 1 tab(s), Sublingual, q5min, PRN for chest pain, # 450 tab(s), 3 Refill(s), Pharmacy: [facility], Angina pectoris, 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, 172.7, cm, 11/04/23 12:59:00 EDT, Height, kg, 11/04/23 12:59:00 EDT, Dosing Weight Start Date: 11/19/23 Status: Ordered Quantity: 450.0 Unit: tab(s) Repeat number: 4 Indications: Other forms of angina pectoris; 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; Start: 06-27-2021 Nitroglycerin 0.4 mg tablet, sublingual Active 0.4 mg SL Q5M as needed for CP June 27, 2021 12:00am do not exceed 3 doses per episode Start: 05-30-2021 nitroglycerin 0.4 mg sublingual tablet 0.4 mg Dose = 1 tab(s), Sublingual, q5min, PRN for chest pain, # 25 tab(s), 0 Refill(s), Pharmacy: [facility]/pharmacy #[id number], Angina pectoris, 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, 170.5, cm, 05/30/21 13:35:00 EDT, Height, kg, 05/30/21 13:35:00 EDT, Dosing Weight Start Date: 05/30/21 Status: Ordered Tiotropium-Olodaterol (20 sources) Anticholinergic, beta2-Adrenergic Agonist Start: 10-24-2023 Tiotropium-Olodaterol (Stiolto Respimat) 2.5-2.5 mcg/actuation mist Active 2 NMA INHALATION DAILY October 24, 2023 12:00am COPD Start: 10-24-2023 Tiotropium-Olo daterol (Stiolto Respimat) 2.5-2.5 mcg/actuation mist Active 2 NMA INHALATION DAILY October 24, 2023 12:00am Start: 05-22-2021 End: 04-01-2023 Tiotropium-Olodaterol (Stiol to Respimat) 2.5-2.5 mcg/actuation mist Discontinued 2 NMA INHALATION DAILY May 22, 2021 1:00am April 01, 2023 5:44pm copd Start: 05-22-2021 End: 04-01-2023 Tiotropium-Olodaterol (Stiol to Respimat) 2.5-2.5 mcg/actuation mist Discontinued 2 NMA INHALATION DAILY May 22, 2021 1:00am April 01, 2023 5:44pm Start: 05-22-2021 End: 04-01-2023 Tiotropium-Olodaterol (Stiol to Respimat) 2.5-2.5 mcg/actuation mist Discontinued 2 PUFF INHALATION DAILY May 22, 2021 1:00am April 01, 2023 5:44pm Start: 05-22-2021 End: 04-01-2023 Tiotropium-Olodaterol (Stiol to Respimat) 2.5-2.5 mcg/actuation mist Discontinued 2 PUFF INHALATION DAILY May 22, 2021 12:00am April 01, 2023 4:44pm Start: 05-22-2021 Tiotropium-Olo daterol (Stiolto Respimat) 2.5-2.5 mcg/actuation mist Active 2 PUFF INHALATION DAILY May 22, 2021 12:00am Start: 05-22-2021 Tiotropium-Olo daterol (Stiolto Respimat) 2.5-2.5 mcg/actuation mist Active 2 PUFF INHALATION DAILY May 22, 2021 1:00am Start: 12-05-2020 take 1 dose by inhal ation once daily Stiolto Respimat 60 ACT 2.5 mcg-2.5 mcg/inh inhalation aerosol Dose = 2 puff(s), Inhalation, qDay, # 1 EA, 0 Refill(s) Start Date: 12/05/20 Status: Ordered Quantity: 1.0 Unit: EA Repeat number: 1 omeprazole 20 mg delayed release oral tablet (6 sources) Proton Pump Inhibitor Start: 01-09-2023 PriLOSEC OTC 20 mg oral delayed release tablet Dose : 20 mg = 1 tab(s), Oral, qDayAC, 0 Refill(s) Start Date: 01/09/23 Status: Ordered OXYGEN, HOME THERAPY, (1 source) OXYGEN, HOME THERAPY, Inhale as instructed as directed. WITH C PAP Active pantoprazole 40 mg delayed release oral tablet (20 sources) Proton Pump Inhibitor Start: 10-24-2023 take 1 tablet by mouth once daily before mealtime Pantoprazole 40 mg tablet,delayed release (DR/EC) Active 40 mg PO DAILY October 24, 2023 12:00am GERD Before meals Start: 03-29-2023 Pantoprazole A ctive MG PO March 29, 2023 12:00am Start: 03-27-2023 End: 09-24-2024 take 1 tablet by mouth twice daily Pantoprazole 40 mg Tablet,Delayed Release (Dr/Ec) Discontinued 40 mg PO TWICE A DAY 60 30 0 April 10, 2023 1:00am October 24, 2023 9:57pm Start: 02-03-2019 End: 06-27-2021 take 1 tablet by mouth once daily Pantoprazole 40 mg tablet,delayed release (DR/EC) Discontinued 40 mg PO DAILY February 03, 2019 1:00am June 27, 2021 2:43pm phenazopyridine hydrochloride 100 mg oral tablet (1 source) Start: 08-05-2024 take 1 tablet by mouth three times daily as needed for pain Phenazopyridine (Pyridium) 100 mg tablet Active 100 mg PO THREE TIMES A DAY as needed for pain 14 0 August 05, 2024 12:00am predniSONE 10 mg oral tablet (18 sources) Start: 02-05-2022 predniSONE 10 mg oral tablet TAKE 4 TABS FOR 4 DAYS, 3 TABS FOR 4 DAYS, 2 TABS FOR 4 DAYS, 1 TABS FOR OTHER DAYS Start Date: 02/05/22 Status: Ordered Start: 07-04-2017 End: 07-07-2017 take 1 tablet by mouth once daily Prednisone 10 mg tablet Discontinued 10 mg PO daily July 04, 2017 12:00am July 07, 2017 2:34pm Prescription MISCellaneous (5 sources) Start: 07-23-2023 Prescription M ISCellaneous See Instructions, PRN Arthritis, Compound: Diclofenac 3%, Baclofen 2% , Lidocaine 3% 60grams/tube 1/2 gram=1pump 1pump-2pumps PRN Arthritis pain, TID, # 60 gram(s), 6 Refill(s), Pharmacy: [facility], Arthritis pain, 173, cm, 06/05/23 13:18:00 EDT, Height, 76.1, kg, 06/05/23 13:18:00 EDT, Dosing Weight Start Date: 07/23/23 Status: Ordered Quantity: 60.0 Unit: g Repeat number: 7 Indications: Unspecified osteoarthritis, unspecified site; Start: 07-23-2023 Prescription M ISCellaneous See Instructions, PRN Arthritis, Compound: Diclofenac 3%, Baclofen 2% , Lidocaine 3% 60grams/tube 1/2 gram=1pump 1pump-2pumps PRN Arthritis pain, TID, # 60 gram(s), 6 Refill(s), Pharmacy: [facility], Arthritis pain, 173, cm, 06/05/23 13:18:00 EDT, Height, 76.1, kg, 06/05/23 13:18:00 EDT, Dosing Weight Start Date: 07/23/23 Status: Ordered PreserVision AREDS (7 sources) Start: 06-05-2023 PreserVision A REDS 0 Refill(s) Start Date: 06/05/23 Status: Ordered Repeat number: 1 Start: 06-05-2023 PreserVision A REDS 0 Refill(s) Start Date: 06/05/23 Status: Ordered 12 hr ranolazine 500 mg extended release oral tablet (1 source) Anti-anginal Start: 02-03-2023 ranolazine 500 mg oral tablet, extended release Dose : 500 mg = 1 tab(s), Oral, BID, # 60 tab(s), 3 Refill(s), Pharmacy: [facility] #[id number], 172, cm, 02/02/23 14:05:00 EST, Height, kg, 02/02/23 14:05:00 EST, Dosing Weight Start Date: 02/03/23 Status: Ordered rosuvastatin calcium 5 mg oral tablet (20 sources) HMG-CoA Reductase Inhibitor Start: 07-04-2017 End: 09-24-2024 take 1 tablet by mouth once daily Rosuvastatin (Crestor) 5 mg tablet Active 5 mg PO daily July 04, 2017 12:00am cholesterol sacubitril 24 mg / valsartan 26 mg oral tablet (2 sources) Angiotensin 2 Receptor Megan Start: 01-09-2023 take 1 tablet by mouth twice daily Entresto 24 mg-26 mg oral tablet Dose = 1 tab(s), Oral, BID, # 180 tab(s), 3 Refill(s), Pharmacy: [facility], 168.5, cm, 01/09/23 13:16:00 EDT, Height, kg, 01/09/23 13:16:00 EDT, Dosing Weight Start Date: 01/09/23 Status: Ordered Senna Plus (3 sources) Start: 02-04-2024 take 1 tablet by mouth once daily at bedtime Senna Plus See Instructions, 1 tab(s) Oral qHS, 0 Refill(s) Start Date: 02/04/24 Status: Ordered Repeat number: 1 sotalol hydrochloride 80 mg oral tablet (3 sources) Antiarrhythmic Start: 01-09-2023 sotalol 80 mg oral tablet Dose : 40 mg = 0.5 tab(s), Oral, BID, # 90 tab(s), 3 Refill(s), Pharmacy: [facility] #[id number], 168.5, cm, 01/09/23 13:16:00 EDT, Height, kg, 01/09/23 13:16:00 EDT, Dosing Weight Start Date: 01/09/23 Status: Ordered Start: 12-25-2022 sotalol 80 mg oral tablet Dose : 40 mg = 0.5 tab(s), Oral, BID, # 30 tab(s), 2 Refill(s), Pharmacy: [facility]/pharmacy #[id number], 168.5, cm, 12/25/22 13:09:00 EDT, Height, kg, 12/25/22 13:09:00 EDT, Dosing Weight Start Date: 12/25/22 Status: Ordered Start: 12-17-2022 sotalol 80 mg oral tablet Dose : 40 mg = 0.5 tab(s), Oral, BID, # 30 tab(s), 0 Refill(s), Pharmacy: [facility]/pharmacy #[id number], 172.7, cm, 12/13/22 21:14:00 EDT, Height, kg, 12/17/22 7:30:00 EDT, Dosing Weight Start Date: 12/17/22 Status: Ordered spironolactone 25 mg oral tablet (4 sources) Aldosterone Antagonist Start: 04-26-2022 spironolactone 25 mg oral tablet Dose : 25 mg = 1 tab(s), Oral, qDay, # 30 tab(s), 0 Refill(s) Start Date: 04/26/22 Status: Ordered Start: 02-26-2022 spironolactone 25 mg oral tablet Dose : 25 mg = 1 tab(s), Oral, Every other day, # 30 tab(s), 11 Refill(s), Pharmacy: [facility]/pharmacy #[id number], 172.7, cm, 02/26/22 15:26:00 EST, Height Start Date: 02/26/22 Status: Ordered Stiolto Respimat 60 ACT 2.5 mcg-2.5 mcg/inh inhalation aerosol (3 sources) Start: 12-05-2020 take 1 dose by inhalation once daily Stiolto Respimat 60 ACT 2.5 mcg-2.5 mcg/inh inhalation aerosol Dose = 2 puff(s), Inhalation, qDay, # 1 EA, 0 Refill(s) Start Date: 12/05/20 Status: Ordered sucralfate 100 mg/ml oral suspension (20 sources) Aluminum Complex Start: 11-20-2023 take 1 g by mouth once daily Sucralfate (Carafate) 100 mg/mL suspension Active 1 g PO DAILY November 20, 2023 12:00am antacid Start: 11-20-2023 take 1 g by mouth twice daily Sucralfate (Carafate) 100 mg/mL suspension Active 1 g PO TWICE A DAY November 20, 2023 12:00am Start: 11-19-2023 Carafate 1 g o ral tablet Dose : 1 gram(s) = 1 tab(s), Oral, BID, # 180 tab(s), 3 Refill(s), Pharmacy: [facility], 172.7, cm, 11/04/23 12:59:00 EDT, Height, kg, 11/04/23 12:59:00 EDT, Dosing Weight Start Date: 11/19/23 Status: Ordered Quantity: 180.0 Unit: tab(s) Repeat number: 4 take 1 tablet by manuel th twice daily sucralfate (CARAFATE) 1 gram tablet Take 1 g by mouth two times a day. Active take 1 tablet by manuel th four times daily sucralfate (CARAFATE) 1 gram tablet Take 1 g by mouth four times daily. Active sulfamethoxazole 800 mg / trimethoprim 160 mg oral tablet (1 source) Dihydrofolate Reductase Inhibitor Antibacterial, Sulfonamide Antimicrobial Start: 11-28-2022 End: 12-08-2022 take 1 tablet by mouth twice daily Bactrim DS 800 mg-160 mg oral tablet Dose = 1 tab(s), Oral, BID, X 10 day(s), # 20 tab(s), 0 Refill(s), Pharmacy: [facility]/pharmacy #[id number], 170, cm, 11/28/22 15:29:00 EDT, Height, 87.72, kg, 11/28/22 15:29:00 EDT, Dosing Weight Start Date: 11/28/22 Stop Date: 12/08/22 Status: Ordered tiotropium Br/olodaterol HCl (STIOLTO RESPIMAT INHALATION) (12 sources) take 2 puff(s) by inhalation once daily tiotropium Br/olodaterol HCl (STIOLTO RESPIMAT INHALATION) Inhale 2 Puffs as instructed once daily. Active tiZANidine 4 mg oral tablet (1 source) Central alpha-2 Adrenergic Agonist Start: 04-15-2022 tiZANidine 4 mg oral tablet Dose : 4 mg = 1 tab(s), Oral, q8h, # 90 tab(s), 0 Refill(s), Pharmacy: [facility]/pharmacy #[id number], Low back pain Oral thrush, 172.7, cm, 04/15/22 9:48:00 EST, Height Start Date: 04/15/22 Status: Ordered Vit C-E-Zinc Vi-Oide-Iir-Zeax (Icaps Areds2) 250 mg-200 unit -12.5 mg-1 mg capsule (8 sources) Start: 03-29-2023 Vit C-E-Zinc Bp-Iscp-Yao-Zeax (Icaps Areds2) 250 mg-200 unit -12.5 mg-1 mg capsule Active 1 NMA PO DAILY March 29, 2023 1:00am supplement Start: 03-29-2023 Vit C-E-Zinc O k-Qcnf-Yrg-Zeax (Icaps Areds2) 250 mg-200 unit -12.5 mg-1 mg capsule Active 1 NMA PO DAILY March 29, 2023 1:00am Start: 03-29-2023 take 1 capsule by mo ut once daily Vit C-E-Zinc Sb-Fzqi-Xwa-Zeax (Icaps Areds2) 250 mg-200 unit -12.5 mg-1 mg capsule Active 1 CAP PO DAILY March 29, 2023 1:00am Start: 03-29-2023 take 1 capsule by mo uth once daily Vit C-E-Zinc Ll-Nogp-Ndz-Zeax (Icaps Areds2) 250 mg-200 unit -12.5 mg-1 mg capsule Active 1 CAP PO DAILY March 29, 2023 12:00am vit C-vit S-Ai-Eo-lutein-colette x (ICAPS AREDS2, COPPER CITRATE,) 250 mg-200 unit -12.5 mg-1 mg tab (12 sources) take 1 capsule by mouth once daily vit C-vit S-Bf-Ec-lutein-zeax (ICAPS AREDS2, COPPER CITRATE,) 250 mg-200 unit -12.5 mg-1 mg tab Take 1 capsule by mouth once daily. Active Vitamin B12 1000 mcg oral tablet (20 sources) Start: 11-12-2020 Vitamin B12 1000 mcg oral tablet Dose : 1,000 mcg = 1 tab(s), Oral, BID, # 60 tab(s), 0 Refill(s), Pharmacy: [facility]/pharmacy #[id number], Vitamin B12 deficiency, 170.9, cm, 11/07/20 16:37:00 EDT, Height, kg, 11/07/20 16:37:00 EDT, Dosing Weight Start Date: 11/12/20 Status: Ordered Vitamin D3 (20 sources) Start: 04-24-2021 Vitamin D3 qDay, 0 Refill(s) Start Date: 04/24/21 Status: Ordered Vitamin D3 25 mcg (1000 intl units) oral tablet (3 sources) Start: 07-05-2024 End: 10-03-2024 Vitamin D3 25 mcg (1000 intl units) oral tablet Dose : 25 mcg = 1 tab(s), Oral, qDay, # 90 tab(s), 0 Refill(s), Pharmacy: [facility], 172.6, cm, 06/24/24 11:54:00 EDT, Height, kg, 06/24/24 11:54:00 EDT, Dosing Weight Start Date: 07/05/24 Stop Date: 10/03/24 Status: Ordered Quantity: 90.0 Unit: tab(s) Repeat number: 1 Completed/Discontinued Medications Medication Drug Class(es) Dates Sig (Normalized) Sig (Original) acetaminophen 300 mg / codeine phosphate 30 mg oral tablet (5 sources) Opioid Agonist Start: 10-24-2023 End: 11-20-2023 Acetaminophen-Codeine 300-30 mg tablet Discontinued 1 {tbl} PO DAILY October 24, 2023 12:00am November 20, 2023 5:54pm acetaminophen 325 mg / HYDROcodone bitartrate 5 mg oral tablet (20 sources) Opioid Agonist Start: 04-10-2023 End: 10-24-2023 Hydrocodone-Acetamino phen 5-325 mg tablet Discontinued 1 {tbl} PO Q4H as needed for pain 28 7 0 April 13, 2023 October 24, 2023 9:55pm Acute diverticulitis of intestine Start: 04-10-2023 take 1 tablet by manuel th every four hours Hydrocodone-Acetaminophen Active 1 TABLE T PO Q4H 28 7 April 13, 2023 Start: 04-01-2023 End: 04-10-2023 Hydrocodone-Acetaminophen 5- 325 mg Tablet Discontinued 2 {tbl} PO EVERY 6 HOURS NEEDED as needed for Pain Score 1-10 12 3 0 April 01, 2023 April 10, 2023 3:22pm Neck pain Cervicalgia Start: 04-01-2023 End: 04-10-2023 take 2 tablets by mouth every six hours as needed Hydrocodone-Acetaminophen Discontinued 2 TABLET PO EVERY 6 HOURS NEEDED 12 3 April 01, 2023 April 10, 2023 3:22pm Start: 11-28-2022 End: 12-05-2022 take 1 tablet by mouth every six hours as needed for pain [place] 325- 5 mg oral tablet Dose = 1 tab(s), Oral, q6h, PRN Pain, X 7 day(s), # 20 tab(s), 0 Refill(s), Pharmacy: [facility]/pharmacy #[id number], Lumbosacral radiculitis Left buttock pain, 170, cm, 11/28/22 15:29:00 EDT, Height, 87.72, kg, 11/28/22 15:29:00 EDT, Dosing Weight Start Date: 11/28/22 Stop Date: 12/05/22 Status: Ordered albuterol 5 mg/ml inhalation solution (20 sources) beta2-Adrenergic Agonist Start: 02-07-2022 take 0.5 mL by inhalation four times daily albuterol 5 mg/mL (0.5%) inhalation solution Dose : 2.5 mg = 0.5 mL, Inhalation, QID, 0.5 ML ADDED TO NEBULIZER WITH BUDESONIDE 4 TIMES A DAY, # 60 mL, 0 Refill(s), Pharmacy: [facility]/pharmacy #[id number], 170.5, cm, 02/05/22 13:01:00 EST, Height Start Date: 02/07/22 Status: Ordered Start: 04-24-2021 albuterol 2.5 mg/3 mL (0.083%) inhalation solution 0 Refill(s) Start Date: 04/24/21 Status: Ordered Start: 04-24-2021 albuterol 2.5 mg/3 mL (0.083%) inhalation solution 0 Refill(s) Start Date: 04/24/21 Status: Ordered aspirin 81 mg delayed release oral tablet (20 sources) Platelet Aggregation Inhibitor, Nonsteroidal Anti-inflammatory Drug Start: 05-22-2021 End: 06-27-2021 take 1 tablet by mouth once daily Aspirin (Adult Aspirin Regimen) 81 mg tablet,delayed release (DR/EC) Discontinued 81 mg PO daily May 22, 2021 1:00am June 27, 2021 2:44pm start 05/24 for [facility] Start: 01-21-2018 End: 04-26-2020 Aspirin (Adult Low Dose Aspi rin) 81 mg tablet,delayed release (DR/EC) Discontinued 81 mg PO DAILY January 21, 2018 1:00am April 26, 2020 6:08pm Start: 07-04-2017 End: 01-06-2018 take 1 tablet by mouth at bedtime Aspirin (Adult Aspirin Regimen) 81 mg tablet,delayed release (DR/EC) Discontinued 81 mg PO AT BEDTIME July 04, 2017 12:00am January 06, 2018 1:09pm [facility] [employer] B-Complex With Vitamin C (12 sources) Start: 01-10-2021 End: 06-27-2021 B-Complex With Vitamin C Dis continued ML .Route January 09, 2021 11:00pm June 27, 2021 1:44pm per PCP Start: 01-10-2021 End: 06-27-2021 B-Complex With Vitamin C Dis continued ML .Route January 10, 2021 12:00am June 27, 2021 2:44pm per PCP B-Complex With Vitamin C solution (5 sources) Start: 01-10-2021 End: 06-27-2021 B-Complex With Vitamin C solution Discontinued mL .Route January 10, 2021 12:00am June 27, 2021 2:44pm per PCP benzonatate 100 mg oral capsule (5 sources) Non-narcotic Antitussive Start: 10-24-2023 End: 11-20-2023 take 1 capsule by mouth twice daily as needed for cough Benzonatate 100 mg capsule Discontinued 100 mg PO TWICE A DAY as needed for cough October 24, 2023 12:00am November 20, 2023 5:54pm betamethasone 0.5 mg/ml / clotrimazole 10 mg/ml topical cream (17 sources) Azole Antifungal, Corticosteroid Start: 07-04-2017 End: 12-24-2017 Clotrimazole-Beta methasone (Lotrisone) 1-0.05 % cream Discontinued 1 NMA TOPICAL TWICE A DAY July 04, 2017 12:00am December 24, 2017 3:17pm Start: 07-04-2017 End: 12-24-2017 Clotrimazole-Betamethasone ( Lotrisone) 1-0.05 % cream Discontinued 1 APPLIC TOPICAL TWICE A DAY July 04, 2017 12:00am December 24, 2017 3:17pm Budesonide-Formoterol (17 sources) Corticosteroid, beta2-Adrenergic Agonist Start: 01-10-2021 End: 04-01-2023 Budesonide-Formoterol (Symbicort) 80-4.5 mcg/actuation HFA aerosol inhaler Discontinued 1 NMA INHALATION TWICE A DAY January 10, 2021 12:00am April 01, 2023 5:47pm copd Start: 01-10-2021 End: 04-01-2023 Budesonide-Formoterol (Symbi abner) 80-4.5 mcg/actuation HFA aerosol inhaler Discontinued 1 NMA INHALATION TWICE A DAY January 10, 2021 12:00am April 01, 2023 5:47pm Start: 01-10-2021 End: 04-01-2023 Budesonide-Formoterol (Symbi abner) 80-4.5 mcg/actuation HFA aerosol inhaler Discontinued 1 INH INHALATION TWICE A DAY January 10, 2021 12:00am April 01, 2023 5:47pm Start: 01-10-2021 End: 04-01-2023 Budesonide-Formoterol (Symbi abner) 80-4.5 mcg/actuation HFA aerosol inhaler Discontinued 1 INH INHALATION TWICE A DAY January 09, 2021 11:00pm April 01, 2023 4:47pm Start: 01-10-2021 take 1 puff(s) by in halation twice daily Budesonide-Formoterol (Symbicort) 80-4.5 mcg/actuation HFA aerosol inhaler Active 2 PUFF INHALATION TWICE A DAY January 09, 2021 11:00pm Start: 01-10-2021 take 1 puff(s) by in halation twice daily Budesonide-Formoterol (Symbicort) 80-4.5 mcg/actuation HFA aerosol inhaler Active 2 PUFF INHALATION TWICE A DAY January 10, 2021 12:00am cimetidine 200 mg oral tablet (20 sources) Histamine-2 Receptor Antagonist Start: 05-22-2021 End: 03-29-2023 take 1 tablet by mouth once as needed for gastroesophageal reflux disease Cimetidine (Tagamet Hb) 200 mg tablet Discontinued 200 mg PO ONCE as needed for reflux May 22, 2021 1:00am March 29, 2023 5:02pm Start: 08-23-2018 Tagamet HB 200 mg oral tablet (NF) Dose : 200 mg = 1 tab(s), PRN Heartburn, 0 Refill(s) Start Date: 08/23/18 Status: Ordered Daptomycin In 0.9 % Sod Chlo r (5 sources) Start: 12-23-2023 End: 01-14-2024 Daptomycin In 0.9 % Sod Chlo r 1,000 mg/100 mL piggyback Discontinued 700 mg IV DAILY December 23, 2023 12:00am January 14, 2024 9:01am antibiotics administer over 30 mins Start: 12-23-2023 End: 01-14-2024 Daptomycin In 0.9 % Sod Chlo r 1,000 mg/100 mL piggyback Discontinued 700 mg IV DAILY December 23, 2023 12:00am January 14, 2024 9:01am administer over 30 mins diclofenac sodium 0.01 mg/mg topical gel (17 sources) Nonsteroidal Anti-inflammatory Drug Start: 07-04-2017 End: 12-24-2017 apply 2 g topically three times daily Diclofenac Sodium (Voltaren) 1 % gel Discontinued 2 g TOPICAL THREE TIMES A DAY July 04, 2017 12:00am December 24, 2017 3:17pm Digoxin (4 sources) Cardiac Glycoside Start: 02-11-2023 End: 02-11-2023 digoxin Start: 02/11/23 1:45:00 AM EST, Dose = 500 mcg, = 2 mL, IV Push, Once, Stop: 02/11/23 1:53:49 AM EST, 02/11/23 1:39:00 EST Notes: Dispose in Large Black Bin. Start Date: 02/11/23 Stop Date: 02/11/23 Status: Completed Start: 12-17-2022 digoxin 125 mc g (0.125 mg) oral tablet Dose : 0.125 mg = 1 tab(s), Oral, qDay, # 30 tab(s), 0 Refill(s), Pharmacy: [facility]/pharmacy #[id number], 172.7, cm, 12/13/22 21:14:00 EDT, Height, kg, 12/17/22 7:30:00 EDT, Dosing Weight Start Date: 12/17/22 Status: Ordered Start: 12-17-2022 End: 12-17-2022 digoxin Start: 12/17/22 9:00: 00 AM EDT, Dose = 0.125 mg, = 1 tab(s), Oral, 12/17/22 8:56:00 EDT Start Date: 12/17/22 Stop Date: 12/17/22 Status: Completed Start: 12-15-2022 End: 12-15-2022 digoxin Start: 12/15/22 9:00: 00 AM EDT, Dose = 0.25 mg, = 1 mL, IV Push, 12/14/22 8:21:00 EDT Start Date: 12/15/22 Stop Date: 12/15/22 Status: Completed 24 hr dilTIAZem hydrochloride 120 mg extended release oral capsule (17 sources) Calcium Channel Megan Start: 01-06-2018 End: 02-09-2018 take 1 capsule by mouth every twelve hours Diltiazem Hcl 120 MG capsule Discontinued 120 mg PO EVERY 12 HOURS 60 0 January 06, 2018 12:00am February 09, 2018 5:12pm On Hold: Order Changed doxycycline hyclate 100 mg oral capsule (11 sources) Tetracycline-c lass Drug Start: 03-29-2023 Doxycycline Hyclate Active MG March 29, 2023 12:00am Start: 03-27-2023 End: 04-06-2023 take 1 capsule by mouth twice daily Doxycycline Hyclate 100 mg capsule Discontinued 100 mg PO TWICE A DAY March 29, 2023 1:00am April 01, 2023 5:42pm antibiotic Start: 01-09-2023 take 1 capsule by [facility] twice daily doxycycline hyclate 100 mg oral capsule take 1 capsule by mouth twice a day for 7 days Start Date: 01/09/23 Status: Ordered econazole nitrate 10 mg/ml topical cream (6 sources) Azole Antifungal Start: 03-01-2024 End: 03-12-2024 Econazole Nitrate 1 % cream Discontinued 1 NMA TOPICAL DAILY as needed for fungal cream March 01, 2024 1:00am March 12, 2024 2:15pm econazole nitrat e (ECONAZOLE TOPICAL) Apply to affected area as needed. Active Fluticasone Furoate (17 sources) Corticosteroid Start: 07-04-2017 End: 02-09-2018 take 200 ug by inhalation once daily Fluticasone Furoate (Arnuity Ellipta) 200 mcg/actuation blister with device Discontinued 1 NMA INHALATION daily July 04, 2017 12:00am February 09, 2018 4:55pm breathing Start: 07-04-2017 End: 02-09-2018 take 200 ug by inhalation once daily Fluticasone Furoate (Arnuity Ellipta) 200 mcg/actuation blister with device Discontinued 1 NMA INHALATION daily July 04, 2017 12:00am February 09, 2018 4:55pm Start: 07-04-2017 End: 02-09-2018 take 200 ug by inhalation once daily Fluticasone Furoate (Arnuity Ellipta) 200 mcg/actuation blister with device Discontinued 1 INH INHALATION daily July 03, 2017 11:00pm February 09, 2018 3:55pm Start: 07-04-2017 End: 02-09-2018 take 200 ug by inhalation once daily Fluticasone Furoate (Arnuity Ellipta) 200 mcg/actuation blister with device Discontinued 1 INH INHALATION daily July 04, 2017 12:00am February 09, 2018 4:55pm Fluticasone Furoate-Vilanterol (20 sources) Corticosteroid, beta2-Adrenergic Agonist Start: 12-01-2018 End: 10-04-2019 take 1 dose by inhalation once daily Fluticasone Furoate-Vilanterol 1 EACH blister with device Discontinued 1 NMA IH DAILY December 01, 2018 12:00am October 04, 2019 1:39pm Start: 12-01-2018 End: 10-04-2019 Fluticasone Furoate-Vilanter ol Discontinued 1 EACH IH DAILY November 30, 2018 11:00pm October 04, 2019 12:39pm Start: 12-01-2018 End: 10-04-2019 Fluticasone Furoate-Vilanter ol Discontinued 1 EACH IH DAILY December 01, 2018 12:00am October 04, 2019 1:39pm Start: 07-04-2017 End: 07-07-2017 Fluticasone Furoate-Vilanter ol (Breo Ellipta) 200-25 mcg/dose blister with device Discontinued 1 NMA INHALATION daily July 04, 2017 12:00am July 07, 2017 2:33pm Start: 07-04-2017 End: 07-07-2017 Fluticasone Furoate-Vilanter ol (Breo Ellipta) 200-25 mcg/dose blister with device Discontinued 1 INH INHALATION daily July 03, 2017 11:00pm July 07, 2017 1:33pm Start: 07-04-2017 End: 07-07-2017 Fluticasone Furoate-Vilanter ol (Breo Ellipta) 200-25 mcg/dose blister with device Discontinued 1 INH INHALATION daily July 04, 2017 12:00am July 07, 2017 2:33pm ibuprofen 200 mg oral tablet (17 sources) Nonsteroidal Anti-inflammatory Drug Start: 07-04-2017 End: 07-07-2017 take 2 tablets by mouth three to four times daily as needed Ibuprofen 200 mg tablet Discontinued 400 mg PO 3 to 4 times per day as needed July 04, 2017 12:00am July 07, 2017 2:34pm Start: 07-04-2017 End: 07-07-2017 take 400 mg by mouth three to four times daily Ibuprofen Discontinued 400 MG PO 3 to 4 times per day July 04, 2017 12:00am July 07, 2017 2:34pm 24 hr isosorbide mononitrate 30 mg extended release oral tablet (20 sources) Nitrate Vasodilator Start: 05-30-2021 End: 03-29-2023 take 1 tablet by mouth once daily, then take 1 tablet by mouth every twenty-four hours Isosorbide Mononitrate 30 mg tablet extended release 24 hr Discontinued 30 mg PO DAILY June 27, 2021 12:00am March 29, 2023 5:01pm ketoconazole 20 mg/ml topical cream (6 sources) Azole Antifungal Start: 02-04-2024 End: 03-12-2024 Ketoconazole 2 % cream Discontinued 1 NMA TOPICAL DAILY as needed for fungal cream March 01, 2024 1:00am March 12, 2024 2:16pm Lactobacillus Acidoph-L.Bulgar (Floranex) 100 million cell granules in packet (5 sources) Start: 12-23-2023 End: 10-08-2024 Lactobacillus Acidoph-L.Bulgar (Floranex) 100 million cell granules in packet Discontinued 1 NMA PO 3 TIMES DAILY WITH MEALS December 23, 2023 12:00am October 08, 2024 1:24pm supplement Start: 12-23-2023 Lactobacillus Acidoph-L.Bulgar (Floranex) 100 million cell granules in packet Active 1 NMA PO 3 TIMES DAILY WITH MEALS December 23, 2023 12:00am Menthol / Zinc Oxide (8 sources) Start: 04-01-2023 End: 04-10-2023 Menthol-Zinc Oxide (Calmosep liam) 0.44-20.6 % Ointment Discontinued 1 NMA TOPICAL 4 TIMES DAILY as needed for skin breakdown/irritation 0 0 April 01, 2023 1:00am April 10, 2023 3:22pm Please contact the information source for Protocol details. Start: 04-01-2023 End: 04-10-2023 Menthol-Zinc Oxide (Calmosep liam) 0.44-20.6 % Ointment Discontinued 1 NMA TOPICAL 4 TIMES DAILY as needed for skin breakdown/irritation 0 April 01, 2023 1:00am April 10, 2023 3:22pm Please contact the information source for Protocol details. Start: 04-01-2023 End: 04-10-2023 Menthol-Zinc Oxide (Calmosep liam) 0.44-20.6 % Ointment Discontinued 1 APPLIC TOPICAL 4 TIMES DAILY 0 April 01, 2023 1:00am April 10, 2023 3:22pm Start: 04-01-2023 End: 04-10-2023 Menthol-Zinc Oxide (Calmosep liam) 0.44-20.6 % Ointment Discontinued 1 APPLIC TOPICAL 4 TIMES DAILY 0 April 01, 2023 12:00am April 10, 2023 2:22pm Start: 04-01-2023 Menthol-Zinc O xide (Calmoseptine) 0.44-20.6 % Ointment Active 1 APPLIC TOPICAL 4 TIMES DAILY 0 April 01, 2023 12:00am methylcellulose 500 mg oral tablet (17 sources) Start: 02-09-2018 End: 07-15-2018 take 1 tablet by mouth once Methylcellulose (Laxative) (Fiber Laxative (Methylcellulo)) 500 mg tablet Discontinued 500 mg PO ONCE February 09, 2018 1:00am July 15, 2018 1:43pm mirtazapine 15 mg oral tablet (14 sources) Start: 01-27-2024 End: 03-12-2024 take 1 tablet by mouth at bedtime Mirtazapine 15 mg tablet Discontinued 15 mg PO AT BEDTIME 30 0 January 27, 2024 1:00am March 12, 2024 2:17pm Start: 01-22-2024 take 7.5 mg by mouth at bedtim e Mirtazapine 15 mg Tablet Active 7.5 mg PO AT BEDTIME 0 0 January 22, 2024 1:00am take 7.5 mg by mouth once daily at bedtime mirtazapine (REMERON ORAL) Take 7.5 mg by mouth daily at bedtime. Active 120 actuat mometasone furoate 0.2 mg/actuat metered dose inhaler (20 sources) Corticosteroid Start: 05-22-2021 End: 03-29-2023 Mometasone (Asmanex Hfa) 200 mcg/actuation HFA aerosol inhaler Discontinued 2 NMA INHALATION TWICE A DAY May 22, 2021 1:00am March 29, 2023 4:59pm Start: 05-22-2021 End: 03-29-2023 take 1 puff(s) by inhalation twice daily Mometasone (Asmanex Hfa) 200 mcg/actuation HFA aerosol inhaler Discontinued 2 PUFF INHALATION TWICE A DAY May 22, 2021 1:00am March 29, 2023 4:59pm Start: 12-05-2020 take 1 dose by mouth twice philomena ly Asmanex HFA 200 mcg/inh inhalation aerosol Dose = 2 puff(s), Inhalation, BID, rinse mouth and throat after use, # 13 gram(s), 0 Refill(s) Start Date: 12/05/20 Status: Ordered naproxen sodium 220 mg oral tablet (17 sources) Nonsteroidal Anti-inflammatory Drug Start: 01-21-2018 End: 02-09-2018 take 1 tablet by mouth twice daily as needed Naproxen Sodium (Aleve) 220 mg tablet Discontinued 220 mg PO TWICE A DAY as needed January 21, 2018 1:00am February 09, 2018 4:57pm nystatin 131120 unt/ml oral suspension (5 sources) Polyene Antifungal Start: 12-23-2023 End: 01-14-2024 Nystatin 100,000 unit/mL suspension Discontinued 124899 U PO THREE TIMES A DAY December 23, 2023 12:00am January 14, 2024 9:00am thrush administer 1/2 of dose in each side of the mouth oxyCODONE hydrochloride 5 mg oral tablet (15 sources) Opioid Agonist Start: 03-01-2024 End: 07-22-2024 Oxycodone 5 mg tablet Discontinued 5 mg PO Q8H as needed for pain 10 7 0 March 12, 2024 July 22, 2024 11:48am Status post cholecystectomy Acquired absence of other specified parts of digestive tract Take as needed for up to 3 days (ends 03/03/24). Do not give with SBP Start: 12-23-2023 End: 01-22-2024 take 1 capsule by mouth every six hours as needed for pain Oxycodone 5 mg capsule Discontinued 5 mg PO EVERY 6 HOURS as needed for pain 0 December 23, 2023 12:00am January 22, 2024 3:33pm piperacillin 3000 mg / tazobactam 375 mg injection (5 sources) Penicillin-class Antibacterial, beta Lactamase Inhibitor Start: 12-23-2023 End: 01-15-2024 take 3.375 g intravenously every six hours Piperacillin-Tazobactam 3.375 gram recon soln Discontinued 3.375 g IV EVERY 6 HOURS December 23, 2023 12:00am January 15, 2024 4:43pm antibiotic for 9 days polyethylene glycol 3350 26020 mg powder for oral solution (20 sources) Osmotic Laxative Start: 03-01-2024 End: 07-22-2024 take 17 g by mouth once daily Polyethylene Glycol 3350 17 gram/dose powder Discontinued 17 g PO DAILY March 01, 2024 1:00am July 22, 2024 11:49am laxative Start: 07-04-2017 End: 07-07-2017 Polyethylene Glycol 3350 (Mi ralax) 17 gram/dose powder Discontinued PO 0 July 04, 2017 12:00am July 07, 2017 2:34pm potassium chloride 20 meq extended release oral tablet (10 sources) Start: 03-29-2023 End: 04-01-2023 take 1 tablet by mouth once daily Potassium Chloride 20 mEq tablet extended release Discontinued 20 meq PO DAILY March 29, 2023 1:00am April 01, 2023 5:45pm supplement Start: 03-27-2023 Potassium Chlo ride (Eqv-K-Tab) 20 mEq oral tablet, extended release Dose : 20 mEq = 1 tab(s), Oral, qDay, # 90 tab(s), 3 Refill(s), Pharmacy: [facility][id number], 172.7, cm, 03/23/23 13:36:00 EST, Height, kg, 03/23/23 13:36:00 EST, Dosing Weight Start Date: 03/27/23 Status: Ordered roflumilast 0.5 mg oral tablet (17 sources) Phosphodiesterase 4 Inhibitor Start: 02-03-2019 End: 10-04-2019 take 1 tablet by mouth once daily Roflumilast (Daliresp) 500 mcg tablet Discontinued 500 ug PO DAILY February 03, 2019 1:00am October 04, 2019 1:37pm sertraline 50 mg oral tablet (20 sources) Serotonin Reuptake Inhibitor Start: 12-01-2018 End: 03-29-2023 take 1 tablet by mouth once daily Sertraline 50 MG tablet Discontinued 50 mg PO DAILY December 01, 2018 12:00am March 29, 2023 5:00pm sodium chloride 1000 mg oral tablet (5 sources) Start: 12-23-2023 End: 01-14-2024 take 1 tablet by mouth three times daily Sodium Chloride 1,000 mg tablet,soluble Discontinued 1000 mg PO THREE TIMES A DAY December 23, 2023 12:00am January 14, 2024 9:00am sodium x4 doses tamsulosin hydrochloride 0.4 mg oral capsule (20 sources) alpha-Adrenergic Megan Start: 04-10-2023 take 0.8 mg by mouth at bedtime Tamsulosin Active 0.8 MG PO AT BEDTIME 60 April 10, 2023 1:00am Start: 10-01-2022 End: 12-17-2023 tamsulosin 0.4 mg oral capsu le Dose : 0.8 mg = 2 cap(s), Oral, qDay, # 180 cap(s), 3 Refill(s), Pharmacy: [facility], 172.7, cm, 11/04/23 12:59:00 EDT, Height, kg, 11/04/23 12:59:00 EDT, Dosing Weight Start Date: 11/19/23 Status: Ordered Quantity: 180.0 Unit: cap(s) Repeat number: 4 Start: 09-19-2021 End: 09-14-2022 Flomax 0.4 mg oral capsule D ose : 0.8 mg = 2 cap(s), Oral, qHS, # 180 cap(s), 3 Refill(s), Pharmacy: [email or web address]), BPH associated with nocturia, 170.5, cm, 09/19/21 8:59:00 EDT, Height, kg, 09/19/21 8:59:00 EDT, Dosing Weight Start Date: 09/19/21 Stop Date: 09/14/22 Status: Ordered Start: 06-27-2021 End: 06-27-2021 take 1 capsule by mouth once daily Tamsulosin 0.4 mg capsule Discontinued 0.4 mg PO DAILY June 27, 2021 12:00am June 27, 2021 2:43pm Start: 05-22-2021 End: 12-23-2023 take 2 capsules by mouth at bedtime Tamsulosin 0.4 mg Capsule Discontinued 0.8 mg PO AT BEDTIME 60 30 0 April 10, 2023 1:00am December 23, 2023 8:15pm bph Start: 07-07-2017 End: 05-22-2021 take 1 capsule by mouth every twenty-four hours at bedtime Tamsulosin (Flomax) 0.4 mg capsule,extended release 24hr Discontinued 0.4 mg PO AT BEDTIME July 07, 2017 12:00am May 22, 2021 5:23pm BPH take 0.8 mg by mouth once daily tamsulosin (FLOMAX) 0.4 mg Take 0.8 mg by mouth once daily. Active 60 actuat tiotropium 0.0025 mg/actuat inhalation spray (17 sources) Anticholinergic Start: 04-11-2020 End: 03-29-2023 take 2.5 ug by inhalation once daily in the morning Tiotropium [place] (Spiriva Respimat) 2.5 mcg/actuation mist Discontinued 2 NMA INHALATION EVERY MORNING April 11, 2020 1:00am March 29, 2023 5:00pm Umeclidinium (20 sources) Anticholinergic Start: 12-01-2018 End: 10-04-2019 take 1 puff(s) by inhalation once daily Umeclidinium 1 PUFF inhaler Discontinued 1 NMA IH DAILY December 01, 2018 12:00am October 04, 2019 1:39pm Start: 12-01-2018 End: 10-04-2019 take 1 puff(s) by inhalation once daily Umeclidinium Discontinued 1 PUFF IH DAILY November 30, 2018 11:00pm October 04, 2019 12:39pm Start: 12-01-2018 End: 10-04-2019 take 1 puff(s) by inhalation once daily Umeclidinium Discontinued 1 PUFF IH DAILY December 01, 2018 12:00am October 04, 2019 1:39pm Start: 12-24-2017 End: 01-21-2018 take 62.5 ug by inhalation once daily Umeclidinium (Incruse Ellipta) 62.5 mcg/actuation blister with device Discontinued 1 NMA INHALATION DAILY December 24, 2017 12:00am January 21, 2018 2:53pm breathing Start: 12-24-2017 End: 01-21-2018 take 62.5 ug by inhalation once daily Umeclidinium (Incruse Ellipta) 62.5 mcg/actuation blister with device Discontinued 1 NMA INHALATION DAILY December 24, 2017 12:00am January 21, 2018 2:53pm Start: 12-24-2017 End: 01-21-2018 take 62.5 ug by inhalation once daily Umeclidinium (Incruse Ellipta) 62.5 mcg/actuation blister with device Discontinued 1 INH INHALATION DAILY December 23, 2017 11:00pm January 21, 2018 1:53pm Start: 12-24-2017 End: 01-21-2018 take 62.5 ug by inhalation once daily Umeclidinium (Incruse Ellipta) 62.5 mcg/actuation blister with device Discontinued 1 INH INHALATION DAILY December 24, 2017 12:00am January 21, 2018 2:53pm vitamin b12 1 mg/ml injectable solution (20 sources) Vitamin B12 Start: 03-29-2023 End: 01-22-2024 inject 100 ug by intramuscular injection every month Cyanocobalamin (Vitamin B-12) 1,000 mcg/mL kit Discontinued 100 ug IM EVERY MONTH March 29, 2023 1:00am January 22, 2024 3:32pm supplement Start: 03-29-2023 inject 100 ug by int ramuscular injection every month Cyanocobalamin (Vitamin B-12) Active 100 MCG IM EVERY MONTH March 29, 2023 1:00am Start: 12-13-2022 Vitamin B12 Se e Instructions, 0 Refill(s) Start Date: 12/13/22 Status: Ordered Repeat number: 1 Start: 12-13-2022 Vitamin B12 Se e Instructions, 0 Refill(s) Start Date: 12/13/22 Status: Ordered Start: 12-13-2022 Vitamin B12 0 Refill(s) Start Date: 12/13/22 Status: Ordered Start: 11-12-2020 Vitamin B12 10 00 mcg oral tablet Dose : 1,000 mcg = 1 tab(s), Oral, BID, # 60 tab(s), 0 Refill(s), Pharmacy: [facility]/pharmacy #[id number], Vitamin B12 deficiency, 170.9, cm, 11/07/20 16:37:00 EDT, Height, kg, 11/07/20 16:37:00 EDT, Dosing Weight Start Date: 11/12/20 Status: Ordered Problems Active Problems Problem Classification Problem Date Documented Da te Episodic/Chronic Acute posthemorrhagic anemia (14 sources) Acute posthemorrhagic anemia; Translations: [Acute posthemorrhagic anemia] Episodic Anxiety disorders (12 sources) Anxiety; Translations: [Anxiety disorder, unspecified] 04-01-2023 Chronic Bacterial infection; unspecified site (17 sources) Bacteremia; Translations: [Bacteremia] Onset: 12-17-2023 12-17-2023 Episodic Biliary tract disease (4 sources) Cholangitis 02-04-2024 Chronic Cardiac dysrhythmias (20 sources) Atrial fibrillation; Translations: [Supraventricular tachycardia] Onset: 02-14-2022 01-04-2019 Chronic Comment on above: CRYO PVAI 03/23/23 com plicated by retroperitoneal bleed requiring transfusions. per ekg 06/12/17 Cardiac dysrhythmias (20 sources) Palpitations; Translations: [Tachyarrhythmia ] Onset: 11-19-2022 09-27-2018 Episodic Chronic obstructive pulmonary disease and bronchiectasis (20 sources) Chronic obstructive lung disease; Translations: [Chronic obstructive pulmonary disease, unspecified] Onset: 10-27-2022 01-04-2019 Chronic Complication of device; implant or graft (1 source) Hemorrhage associated with implant; Translations: [Hemorrhage due to cardiac prosthetic devices, implants and grafts, initial encounter] Onset: 03-24-2023 Episodic Complications of surgical procedures or medical care (10 sources) Iatrogenic pneumothorax; Translations: [Postprocedural pneumothorax] 01-14-2024 Episodic Conditions associated with dizziness or vertigo (20 sources) Labyrinthine dysfunction 09-27-2018 Episodic Conduction disorders (14 sources) Sinus node dysfunction 02-01-2023 Chronic Congestive heart failure; nonhypertensive (20 sources) Diastolic heart failure; Translations: [Unspecified diastolic (congestive) heart failure] Onset: 12-15-2022 Chronic Coronary atherosclerosis and other heart disease (20 sources) Coronary arteriosclerosis; Translations: [Coronary atherosclerosis] Onset: 04-26-2022 09-19-2021 Chronic Comment on above: unsuccessful PTCA of D1, as we could not cross the lesion with a wire 05/27/2021 Deficiency and other anemia (20 sources) Anemia; Translations: [Anemia, unspecified] Onset: 02-16-2024 02-25-2022 Episodic Deficiency and other anemia (1 source) Anemia, unspecified; Translations: [Anemia, unspecified type] Onset: 02-16-2024 Episodic Delirium, dementia, and amnestic and other cognitive disorders (1 source) Frailty; Translations: [Age-related physical debility] Onset: 02-25-2024 02-26-2024 Chronic Diseases of white blood cells (12 sources) Leukocytosis; Translations: [Elevated white blood cell count, unspecified] Onset: 12-14-2023 12-14-2023 Chronic Disorders of lipid metabolism (20 sources) Hypercholesterolemia; Translations: [Mixed hyperlipidemia] Onset: 03-28-2015 04-20-2014 Chronic Disorders of teeth and jaw (6 sources) Dental caries; Translations: [Dental caries, unspecified] Onset: 02-19-2024 02-19-2024 Episodic Diverticulosis and diverticulitis (20 sources) Diverticulitis of intestine; Translations: [Diverticulitis of intestine, part unspecified, without perforation or abscess without bleeding] 04-01-2023 Chronic Esophageal disorders (20 sources) Acid reflux; Translations: [Gastroesophageal reflux disease] Onset: 02-16-2024 05-25-2014 Chronic Essential hypertension (20 sources) Essential hypertension; Translations: [Essential (primary) hypertension] Onset: 12-15-2022 02-25-2022 Chronic Genitourinary symptoms and ill-defined conditions (18 sources) Urinary incontinence 11-28-2022 Chronic Genitourinary symptoms and ill-defined conditions (7 sources) Unspecified symptoms and signs involving the genitourinary system; Translations: [Gross hematuria] Onset: 11-28-2022 Episodic Hyperplasia of prostate (20 sources) Large prostate ; Translations: [Benign prostatic hypertrophy with outflow obstruction] Onset: 04-26-2022 04-20-2014 Chronic Intestinal obstruction without hernia (1 source) Intestinal obstruction; Translations: [Ileus, unspecified] Episodic Lung disease due to external agents (20 sources) Asbestosis 09-27-2018 Chronic Malaise and fatigue (20 sources) Fatigue; Translations: [Asthenia] 10-14-2018 Episodic Miscellaneous mental health disorders (20 sources) Chronic insomnia; Translations: [Psychophysiologic insomnia] Onset: 12-13-2022 09-17-2022 Chronic Mood disorders (20 sources) Depressive disorder; Translations: [Major depressive disorder] 10-14-2018 Chronic Mycoses (20 sources) Candidiasis of mouth; Translations: [Onychomycosis] 04-15-2022 Episodic Noninfectious gastroenteritis (1 source) Noninfectious enteritis; Translations: [Noninfective gastroenteritis and colitis, unspecified] Episodic Nonspecific chest pain (1 source) Chest pain; Translations: [Chest pain, unspecified] Episodic Nutritional deficiencies (20 sources) Malnutrition (calorie); Translations: [Moderate protein-calorie malnutrition] Onset: 12-22-2023 02-04-2024 Chronic Open wounds of extremities (1 source) Cat bite - wound; Translations: [Open bite of unspecified forearm, initial encounter] 10-08-2024 Episodic Osteoarthritis (20 sources) Arthritis; Translations: [Osteoarthritis] 05-25-2014 Chronic Other aftercare (13 sources) Long-term current use of anticoagulant; Translations: [senior living (current) use of anticoagulants] Onset: 02-04-2024 02-04-2024 Episodic Other aftercare (1 source) Surgical follow-up; Translations: [Encounter for follow-up examination after completed treatment for conditions other than malignant neoplasm] 03-18-2024 Episodic Other aftercare (1 source) Drug therapy finding; Translations: [Other fdc (current) drug therapy] Onset: 02-26-2024 02-26-2024 Episodic Other aftercare (1 source) Encounter for follow-up examination after completed treatment for conditions other than malignant neoplasm; Translations: [Postoperative follow-up] Onset: 03-21-2024 Episodic Other aftercare (4 sources) Post-discharge follow-up 03-15-2024 Episodic Other and ill-defined heart disease (8 sources) Diastolic dysfunction; Translations: [Other ill-defined heart diseases] 03-21-2024 Chronic Other and ill-defined heart disease (1 source) Other ill-defined heart diseases; Translations: [Other ill-defined heart diseases] Onset: 03-14-2024 Chronic Other circulatory disease (20 sources) Low blood pressure; Translations: [Hypotension, unspecified] Onset: 04-26-2022 Episodic Other circulatory disease (1 source) Disorder of respiratory system; Translations: [Other specified symptoms and signs involving the circulatory and respiratory systems] Onset: 05-29-2022 Episodic Other circulatory disease (17 sources) Retroperitoneal hemorrhage; Translations: [Hemorrhage, not elsewhere classified] 03-24-2023 Episodic Other circulatory disease (9 sources) Retroperitoneal hematoma; Translations: [Retroperitoneal hematoma] 03-29-2023 Episodic Other circulatory disease (2 sources) Hemorrhage, not elsewhere classified; Translations: [Hemorrhage, unspecified] 04-14-2023 Episodic Other circulatory disease (6 sources) Chronic orthostatic hypotension; Translations: [Orthostatic hypotension] 06-06-2023 Episodic Other circulatory disease (8 sources) Orthostatic hypotension; Translations: [Orthostatic hypotension] 03-21-2024 Episodic Other connective tissue disease (20 sources) Muscle weakness; Translations: [Muscle weakness (generalized)] 05-25-2014 Episodic Other connective tissue disease (20 sources) Muscle weakness of limb 09-19-2021 Episodic Other connective tissue disease (17 sources) Swelling of right lower limb; Translations: [Other specified soft tissue disorders] 01-09-2021 Episodic Other connective tissue disease (20 sources) Bursitis of shoulder 07-03-2022 Episodic Other connective tissue disease (18 sources) Pain in buttock 11-28-2022 Episodic Other connective tissue disease (14 sources) Muscle spasm of cervical muscle of neck 02-10-2023 Episodic Other connective tissue disease (1 source) Pain in right lower limb; Translations: [Pain in right leg] Episodic Other connective tissue disease (4 sources) Bursitis of left hip 10-06-2023 Episodic Other connective tissue disease (8 sources) Spasm; Translations: [Other muscle spasm] 03-21-2024 Episodic Other ear and sense organ disorders (1 source) Hearing loss; Translations: [Unspecified hearing loss, unspecified ear] 02-16-2024 Chronic Other ear and sense organ disorders (1 source) Unspecified hearing loss, unspecified ear; Translations: [COMANCHE (hard of hearing)] Onset: 02-15-2024 Chronic Other gastrointestinal disorders (20 sources) Constipation 09-27-2018 Episodic Other gastrointestinal disorders (12 sources) Diarrhea 03-04-2023 Episodic Other inflammatory condition of skin (20 sources) Psoriasis 05-25-2014 Chronic Other injuries and conditions due to external causes (20 sources) Injury of lumbar nerve roots 09-27-2018 Episodic Other injuries and conditions due to external causes (1 source) History of fall; Translations: [History of falling] Episodic Other lower respiratory disease (1 source) Fibrosis of lung; Translations: [Pulmonary fibrosis, unspecified] Chronic Other lower respiratory disease (20 sources) Dyspnea on exertion 09-19-2021 Episodic Other lower respiratory disease (18 sources) Hypoxemia; Translations: [Hypoxemia] Onset: 10-29-2023 Episodic Other lower respiratory disease (17 sources) Dyspnea; Translations: [Dyspnea, unspecified] Episodic Other lower respiratory disease (1 source) Abnormal findings on diagnostic imaging of lung; Translations: [Other nonspecific abnormal finding of lung field] Episodic Other lower respiratory disease (16 sources) Cough 12-30-2022 Episodic Other lower respiratory disease (16 sources) Hypoxia 12-30-2022 Episodic Other lower respiratory disease (16 sources) Persistent cough 12-19-2022 Episodic Other lower respiratory disease (16 sources) Wheezing 12-30-2022 Episodic Other lower respiratory disease (18 sources) Abscess of lung; Translations: [Abscess of lung without pneumonia] Onset: 10-27-2023 12-13-2023 Episodic Other nervous system disorders (1 source) Walking disability; Translations: [Difficulty in walking, not elsewhere classified] Chronic Other nervous system disorders (1 source) Other acute postprocedural pain; Translations: [Acute postoperative pain of abdomen] Onset: 02-24-2024 Episodic Other non-traumatic joint disorders (20 sources) Shoulder pain 08-27-2022 Episodic Other non-traumatic joint disorders (20 sources) Hip pain 10-27-2022 Episodic Other non-traumatic joint disorders (2 sources) Pain of right shoulder joint; Translations: [Pain in right shoulder] Onset: 12-13-2022 Episodic Other screening for suspected conditions (not mental disorders or infectious disease) (20 sources) Cardiovascular stress test abnormal; Translations: [Abnormal result of other cardiovascular function study] 02-25-2022 Episodic Other skin disorders (1 source) H/O: skin disorder; Translations: [Personal history of diseases of the skin and subcutaneous tissue] Episodic Other upper respiratory infections (20 sources) Acute sinusitis 04-30-2022 Episodic Pleurisy; pneumothorax; pulmonary collapse (4 sources) Empyema of pleura 11-04-2023 Episodic Pneumonia (except that caused by tuberculosis or sexually transmitted disease) (6 sources) Pneumonia; Translations: [Pneumonia, unspecified organism] Episodic Pneumonia (except that caused by tuberculosis or sexually transmitted disease) (4 sources) Pneumonia (except that caused by tuberculosis or sexually transmitted disease) 11-04-2023 Pulmonary heart disease (15 sources) Pulmonary hypertension; Translations: [Pulmonary hypertension, unspecified] Onset: 02-04-2024 02-04-2024 Chronic Residual codes; unclassified (20 sources) Obstructive sleep apnea syndrome; Translations: [Obstructive sleep apnea (adult) (pediatric)] Onset: 12-14-2022 02-25-2022 Chronic Residual codes; unclassified (6 sources) Sleep apnea; Translations: [Sleep apnea, unspecified] Onset: 02-16-2024 02-16-2024 Chronic Residual codes; unclassified (1 source) Sleep apnea, unspecified; Translations: [Sleep apnea, unspecified type] Onset: 02-16-2024 Chronic Residual codes; unclassified (20 sources) Insomnia; Translations: [Insomnia, unspecified] Onset: 04-26-2022 09-27-2018 Episodic Residual codes; unclassified (20 sources) Requires vaccination 12-07-2019 Episodic Residual codes; unclassified (2 sources) At risk of delirium; Translations: [Other specified personal risk factors, not elsewhere classified] Onset: 02-25-2024 02-16-2024 Episodic Residual codes; unclassified (12 sources) Past history of procedure; Translations: [Personal history of other medical treatment] Onset: 02-16-2024 4 Episodic Residual codes; unclassified (2 sources) Personal history of other medical treatment; Translations: [History of echocardiogram] Onset: 02-16-2024 Episodic Residual codes; unclassified (1 source) Other specified personal risk factors, not elsewhere classified; Translations: [At risk for delirium] Onset: 02-15-2024 Episodic Residual codes; unclassified (4 sources) Chill 03-15-2024 Episodic Respiratory failure; insufficiency; arrest (adult) (5 sources) Acute respiratory failure; Translations: [Acute respiratory failure with hypoxia] 12-20-2023 Episodic Retinal detachments; defects; vascular occlusion; and retinopathy (8 sources) Degenerative disorder of macula ; Translations: [Unspecified macular degeneration] 03-21-2024 Chronic Screening and history of mental health and substance abuse codes (7 sources) Ex-smoker; Translations: [Personal history of nicotine dependence] Onset: 02-16-2024 02-16-2024 Episodic Septicemia (except in labor) (16 sources) Sepsis without acute organ dysfunction; Translations: [Sepsis, unspecified organism] Onset: 12-14-2023 12-14-2023 Episodic Spondylosis; intervertebral disc disorders; other back problems (16 sources) 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 Please call to schedule appt Unclassified (3 sources) frances will make appt Unclassified (1 source) Flank pain, right side; Translations: [Flank pain, right side] Onset: 01-24-2025 Viral infection (20 sources) Disease caused by 2019-nCoV; Translations: [COVID-19] Onset: 10-29-2023 10-29-2023 Episodic Viral infection (4 sources) Disease caused by 2019-nCoV 11-04-2023 Past or Other Problems Problem Classification Problem Date Documented Date Episodic/Chronic Abdominal pain (20 sources) Abdominal pain; Translations: [Unspecified abdominal pain] Onset: 12-14-2023 Episodic Biliary tract disease (20 sources) Acute and chronic cholecystitis; Translations: [Acute cholecystitis with chronic cholecystitis] Onset: 12-13-2023 Resolved: 03-01-2024 02-03-2024 Episodic Calculus of urinary tract (1 source) Calculus of kidney; Translations: [Calculus of kidney] Onset: 08-10-2024 Episodic Fluid and electrolyte disorders (20 sources) Hyponatremia; Translations: [Hypo-osmolality and hyponatremia] Onset: 10-29-2023 10-29-2023 Episodic Intestinal infection (2 sources) Enterocolitis due to Clostridium difficile, not specified as recurrent; Translations: [Enterocolitis due to Clostridium difficile, not specified as recurrent] Onset: 03-12-2023 Episodic Nausea and vomiting (1 source) Nausea; Translations: [Nausea] Onset: 02-25-2024 Resolved: 03-01-2024 03-01-2024 Episodic Nutritional deficiencies (20 sources) Cobalamin deficiency; Translations: [Vitamin B deficiency] Onset: 08-29-2024 11-12-2020 Episodic Other aftercare (2 sources) Encounter for surgical aftercare following surgery on the digestive system; Translations: [Encounter for surgical aftercare following surgery on the digestive system] Onset: 03-14-2024 Episodic Other circulatory disease (3 sources) Hypotension, unspecified; Translations: [Hypotension, unspecified hypotension type] Onset: 02-16-2024 Episodic Other lower respiratory disease (12 sources) Hemoptysis; Translations: [Hemoptysis] Onset: 10-27-2023 10-27-2023 Episodic Other lower respiratory disease (12 sources) Cavitation of lung; Translations: [Other disorders of lung] Onset: 10-29-2023 10-29-2023 Episodic Other lower respiratory disease (1 source) Abscess of lung without pneumonia; Translations: [Abscess of left lung without pneumonia, unspecified part of lung (HCC)] Onset: 12-13-2023 Episodic Other lower respiratory disease (2 sources) Hemoptysis; Translations: [Hemoptysis] Onset: 10-27-2023 Episodic Other lower respiratory disease (1 source) Solitary pulmonary nodule; Translations: [Solitary pulmonary nodule] Onset: 05-16-2024 Episodic Other nervous system disorders (1 source) Acute abdominal pain; Translations: [Other acute postprocedural pain] Onset: 02-25-2024 Resolved: 03-01-2024 03-01-2024 Episodic Other non-traumatic joint disorders (2 sources) Pain in left hip; Translations: [Pain in left hip] Onset: 11-24-2022 Episodic Unclassified (1 source) Flank pain, right side; Translations: [Flank pain, right side] Onset: 01-24-2025 Results Test Name Value Interpretation Reference Range Facility Respiratory Cultureon 2024 RESPC No Streptococcus pneumoniae, beta-hemolytic Streptococcus or Staphylococcus aureus isolated. Presumptive C albicans Amount Growth 2+ Normal [facility] Comment on above: Performed By: #### L 100.0100, L500.2500 #### [facility] [address] [place], [place], [address] Gram Stainon 01-06-2025 GS Acceptable Specimen? Yes (<25 Epithelial cells per/lpf) Gram Stain 3+ White Blood Cells 1+ Gram positive cocci Rare Epithelial cells Normal [facility] Comment on above: Performed By: #### L 100.0100, L500.2500 #### [facility] [address] [place], [place], [id number] Urgent Care Visit Reporton 0 10-08-2024 Urgent Care Visit Report [facility] [address], [address] [place] [address] OFFICE VISIT Date of Service: 10/08/24 MR#: [id number] Acct: [id number] Name: HIRAM DORAN Rep #: [id number] : 1940 Provider: TAMANNA Dexter Age/Sex: 84/M Location: [facility] Status: Signed with Addenda ADDENDUM by Matilda De Jesus on 10/08/24 at 1338 Office Procedure Documentation entered by Matilda De Jesus 10/08/24 13:38: Immunizations Boostrix Tdap 2.5 Lf unit-8 mcg-5 Lf/0.5 mL intramuscular syringe Performing Provider: TAMANNA Dexter Performing Location: [facility] Administered by: Matilda De Jesus on 10/08/24 13:37 Dose Route Admin Location Dispensed Lot Number Expiration Date NDC Man ufacturer 0.5 mL IM Left Deltoid 0.5 mL [id number] 11/11/26 [id number] [employer] VIS Given Date VIS Provided VIS Publication Date 10/08/24 Single Vaccine 24 Eligibility Eligibility Date Funding Source Not Applicable Date cc: * Signed Intake Vital Signs 08/05/24 06:32 10/08/24 13:20 Height 5 ft 9 in BP 110/74 Blood Pressure Location Lt brachial Position Sitting Respiration 18 Pulse 92 Pulse Source NIBP Temp 98.3 F Temp Source Oral Pulse Oximetry (%) 88 Oxygen Delivery Method room air Comment O2 on floor beside pt, daughter states 88% is good for him Intake Visit Reasons: CAT BITE ON L ARM Chief Complaint: left forearm cat bite 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 Is patient in pain?: Yes Allergies mirtazapine Allergy (Intermediate, Verified 10/08/24 13:21) Rash tramadol Allergy (Unknown, Verified 10/08/24 13:21) PT UNSURE OF REACTION clindamycin Adverse Reaction (Intermediate, Verified 10/08/24 13:21) Rash terbinafine Adverse Reaction (Intermediate, Verified 10/08/24 13:21) Rash Medications ???Medication ???Instructions ???Recorded ???Confirmed ???Type rosuvastatin 5 mg tablet (Crestor) 5 mg PO QDAY cholesterol 8 10/08/24 History metoprolol succinate 25 mg 25 mg PO DAILY AFIB 06/27/2110/08 History tablet,extended release 24 hr nitroglycerin 0.4 mg sublingual 0.4 mg sublingual Q5M PRN CP 06/2710/08/24 History tablet dofetilide 250 mcg capsule 250 mcg PO Q12H afib 03/29/2309/14 History duloxetine 60 mg capsule,delayed 120 mg PO DAILY mood 03/29/2309/14 History release empagliflozin 25 mg tablet 12.5 mg PO DAILY heart 03/29/23 History (Jardiance) finasteride 5 mg tablet 5 mg PO DAILY bph 03/29/23 5 History levalbuterol HCl 0.63 mg/3 mL 0.63 mg inhalation TID copd 10/08/24 History solution for nebulization midodrine 5 mg tablet 5 mg PO 1000,1400,1800 blood 03/2910/08/24 History pressure vit C 250 mg-vit E 200 unit-zinc 1 cap PO DAILY supplement 03/29/23 10/08/24 History ox 12.5 id-egltyd-hnrmkj-zeax capsule (ICaps AREDS2) lorazepam 0.5 mg tablet 0.5 mg PO QHS Anxiety #5 tabs 03/1610/08/24 Rx apixaban 5 mg tablet (Eliquis) 5 mg PO BID BLOOD THINNER #0 tabs 04/10/23 10/08/24 Rx ezetimibe 10 mg tablet 10 mg PO QHS cholesterol 10/24/23 08/05/24 History guaifenesin 1,200 mg tablet, 1,200 mg PO BID mucus relief 10/2310/08/24 History extended release 12 hr (Mucinex) pantoprazole 40 mg tablet,delayed 40 mg PO DAILY GERD 10/24/2309/14 History release tiotropium 2.5 mcg-olodaterol 2.5 2 inh inhalation DAILY COPD 10/2310/08/24 History mcg/actuation mist for inhalation (Stiolto Respimat) methocarbamol 750 mg tablet 750 mg PO BID Muscle Relaxer 11/1910/08/24 History sucralfate 100 mg/mL oral 1 g PO DAILY antacid 11/20/2309/14 History suspension (Carafate) tamsulosin 0.4 mg capsule 0.8 mg PO QHS bph 12/23/23 5 History mirtazapine 15 mg tablet 7.5 mg (1/2 x 15 mg) PO QHS #0 tab s 01/22/24 07/22/24 Rx budesonide 0.5 mg/2 mL suspension 0.5 mg inhalation BID Asthma 02/1310/08/24 History for nebulization lidocaine 4 % topical patch 2 patch topical DAILY pain 4 10/08/24 History sennosides 8.6 mg-docusate sodium 1 tab-cap PO DAILY stool softener 03/01/24 10/08/24 History 50 mg tablet (Senna-S) bumetanide 0.5 mg tablet 1 mg (2 x 0.5 mg) PO MOWEFR PRN 10/08/24 Rx EDEMA #1 TAB cholecalciferol (vitamin D3) 25 25 mcg PO DAILYCM #90 tabs 4 10/08/24 Rx mcg (1,000 unit) tablet Lactobacillus acidophilus 10 mg PO DAILY 07/22/24 10/08/24 H istory (Acidophilus capsule) acetaminophen 500 mg capsule 500 mg PO Q6H PRN pain #20 caps 10/08/24 Rx phenazopyridine 100 mg tablet 100 mg PO TID PRN pain 6 doses #14 08/05/24 10/08/24 Rx (Pyridium) tabs amoxicillin 875 mg-potassium 1 tab PO BID (more content not included)... Normal [facility] .Auto Diffon 08-29-2024 Basophil, Absolute 0.1 10 3/mcL Normal 0.0-0.3 [facility] Comment on above: Performed By: #### F E, CBC, VIDH, ANEU, GFR, ADIFF, CMP, FERR ####[address] [place], [place] [address] Basophils/100 WBC (Bld) 1.3 % Normal 0.0-2.[address] [facility] Comment on above: Performed By: #### F E, CBC, VIDH, ANEU, GFR, ADIFF, CMP, FERR ####[facility] [place] [place], [place] [address] Eosinophil, Absolute 0.5 10 3/mcL Normal 0.0-0.7 [facility] Comment on above: Performed By: #### F E, CBC, VIDH, ANEU, GFR, ADIFF, CMP, FERR ####[address] [place], [place] [address] Eosinophils/100 WBC (Bld) 7.1 % High 0.0-6.[address] [facility] Comment on above: Performed By: #### F E, CBC, VIDH, ANEU, GFR, ADIFF, CMP, FERR ####[facility] [place] [place], [place] [address] Lymphocyte, Absolute 1.1 10 3/mcL Normal 0.9-4.3 [facility] Comment on above: Performed By: #### F E, CBC, VIDH, ANEU, GFR, ADIFF, CMP, FERR ####[address] [address] [place], [place] [address] Lymphocytes/100 WBC (Bld) 15.7 % Low 20.0-40.[address] [facility] Comment on above: Performed By: #### F E, CBC, VIDH, ANEU, GFR, ADIFF, CMP, FERR ####[address] [place], [place] [address] Monocyte, Absolute 0.7 10 3/mcL Normal 0.1-1.4 [facility] Comment on above: Performed By: #### F E, CBC, VIDH, ANEU, GFR, ADIFF, CMP, FERR ####[address] [place], [place] [address] Monocytes/100 WBC (Bld) 10.4 % Normal 2.0-13.[address] [facility] Comment on above: Performed By: #### F E, CBC, VIDH, ANEU, GFR, ADIFF, CMP, FERR ####[facility] [place] [place], [place] [address] Neutrophils/100 WBC (Bld) 65.5 % Normal 50.0-75.[address] [facility] Comment on above: Performed By: #### F E, CBC, VIDH, ANEU, GFR, ADIFF, CMP, FERR ####[facility] [place] [place], [place] [address] .GFRon 08-29-2024 Estimated Glomerular Filtration Rate 75 ml/min/1.73sqm Normal [facility] Comment on above: Result Comment: Stages of Chronic Kidney Disease (CKD) Stage Description eGFR(ml/min/1.73 sq.m.) CKD 1 Normal kidney function or >=90 normal kindney function with possible kidney damage (ex. Proteinuria) CKD 2 Kidney damage with mild loss 60-89 of kidney function CKD 3a Mild to moderate loss of kidney 45-59 function CKD 3b Moderate to severe loss of 30-44 of kindey function CKD 4 Severe loss of kidney function 15-29 CKD 5 Kidney failure <15 Note: (go live 2024) the eGFR calculation was updated to the 2020 CKD-EPI creatinine equation without a race factor to calculate the eGFR results. Performed By: #### F E, CBC, VIDH, ANEU, GFR, ADIFF, CMP, FERR ####[address] [address] .NEUABSon 08-29-2024 Neutrophil, Absolute 4.6 10 3/mcL Normal 2.3-8.1 [facility] Comment on above: Performed By: #### F E, CBC, VIDH, ANEU, GFR, ADIFF, CMP, FERR ####[place] [id number] CBCon 08-29-2024 Erythrocyte distribution width (RBC) [Ratio] 16.8 % High 11.5-15.[address] [facility] Comment on above: Performed By: #### F E, CBC, VIDH, ANEU, GFR, ADIFF, CMP, FERR ####[address] [address] Hematocrit (Bld) [Volume fraction] 38.5 % Low 40.0-52.[address] [facility] Comment on above: Performed By: #### F E, CBC, VIDH, ANEU, GFR, ADIFF, CMP, FERR ####[address] [address] Hgb 12.5 G/dL Low 13.0-17.[address] [facility] Comment on above: Performed By: #### F E, CBC, VIDH, ANEU, GFR, ADIFF, CMP, FERR ####[address] [address] [place], [place] [address] MCH (RBC) [Entitic mass] 28.5 pg Normal 27.0-33.[address] [facility] Comment on above: Performed By: #### F E, CBC, VIDH, ANEU, GFR, ADIFF, CMP, FERR ####[address] [place], [place] [address] MCHC 32.6 G/dL Normal 32.0-36.[address] [facility] Comment on above: Performed By: #### F E, CBC, VIDH, ANEU, GFR, ADIFF, CMP, FERR ####[address] [place], [place] [address] MCV (RBC) [Entitic vol] 87.3 fL Normal 81.0-100.[address] [facility] Comment on above: Performed By: #### F E, CBC, VIDH, ANEU, GFR, ADIFF, CMP, FERR ####[address] [address] Platelet 218 10 3/mcL Normal 150-[address] [facility] Comment on above: Performed By: #### F E, CBC, VIDH, ANEU, GFR, ADIFF, CMP, FERR ####[place] [id number] [place], [place] [address] Platelet mean volume (Bld) [Entitic vol] 8.3 fL Normal 6.4-10.[address] [facility] Comment on above: Performed By: #### F E, CBC, VIDH, ANEU, GFR, ADIFF, CMP, FERR ####[place] [address] [place], [place] [address] RBC 4.41 10 6/mcL Low 4.50-6.[address] [facility] Comment on above: Performed By: #### F E, CBC, VIDH, ANEU, GFR, ADIFF, CMP, FERR ####[address] [place], [place] [address] WBC 7.0 10 3/mcL Normal 4.5-10.[address] [facility] Comment on above: Performed By: #### F E, CBC, VIDH, ANEU, GFR, ADIFF, CMP, FERR ####[facility] [place] [place], [place] [address] CMPon 08-29-2024 Albumin Level 3.3 G/dL Low 3.4-4.[address] [facility] Comment on above: Performed By: #### F E, CBC, VIDH, ANEU, GFR, ADIFF, CMP, FERR ####[address] [address] Albumin/Globulin [Mass ratio] 1.0 {ratio} Low 1.1-2.[address] [facility] Comment on above: Performed By: #### F E, CBC, VIDH, ANEU, GFR, ADIFF, CMP, FERR ####[address] [place], [place] [address] ALP [Catalytic activity/Vol] 100 U/L Normal 40-[address] [facility] Comment on above: Performed By: #### F E, CBC, VIDH, ANEU, GFR, ADIFF, CMP, FERR ####[address] [address] ALT [Catalytic activity/Vol] 26 U/L Normal 16-[address] [facility] Comment on above: Performed By: #### F E, CBC, VIDH, ANEU, GFR, ADIFF, CMP, FERR ####[address] [address] AST [Catalytic activity/Vol] 14 U/L Normal 10-[address] [facility] Comment on above: Performed By: #### F E, CBC, VIDH, ANEU, GFR, ADIFF, CMP, FERR ####[address] [address] Bili Total 0.5 mg/dL Normal 0.2-1.[address] [facility] Comment on above: Result Comment: Use of this assay is not recommended for patients undergoing treatment with eltrombopag due to the potential for falsely elevated results. Performed By: #### F E, CBC, VIDH, ANEU, GFR, ADIFF, CMP, FERR ####[address] [address] BUN/Creatinine Ratio 11 ratio Normal 7-27 [facility] Comment on above: Performed By: #### F E, CBC, VIDH, ANEU, GFR, ADIFF, CMP, FERR ####[address] [address] Calcium [Mass/Vol] 8.6 mg/dL Normal 8.4-10.2 [facility] Comment on above: Performed By: #### F E, CBC, VIDH, ANEU, GFR, ADIFF, CMP, FERR ####[place] [address] Chloride [Moles/Vol] 108 mmol/L High 98-107 [facility] Comment on above: Performed By: #### F E, CBC, VIDH, ANEU, GFR, ADIFF, CMP, FERR ####[place] [address] CO2 [Moles/Vol] 27 mmol/L Normal 23-[address] [facility] Comment on above: Performed By: #### F E, CBC, VIDH, ANEU, GFR, ADIFF, CMP, FERR ####[place] [address] Creatinine [Mass/Vol] 0.99 mg/dL Normal 0.67-1.17 [facility] Comment on above: Performed By: #### F E, CBC, VIDH, ANEU, GFR, ADIFF, CMP, FERR ####[place] [id number] Electrolyte Balance 8.0 mEq/L Normal 4.0-15.0 [facility] Comment on above: Performed By: #### F E, CBC, VIDH, ANEU, GFR, ADIFF, CMP, FERR ####[place] [id number] [place] [address] Globulin 3.4 G/dL Normal 2.7-4.[address] [facility] Comment on above: Performed By: #### F E, CBC, VIDH, ANEU, GFR, ADIFF, CMP, FERR ####[facility] [place] [place] [address] Glucose [Mass/Vol] 106 mg/dL Normal 83-110 [facility] Comment on above: Performed By: #### F E, CBC, VIDH, ANEU, GFR, ADIFF, CMP, FERR ####[place] [address] [place], [place] [address] Potassium [Moles/Vol] 4.1 mmol/L Normal 3.5-5.1 [facility] Comment on above: Performed By: #### F E, CBC, VIDH, ANEU, GFR, ADIFF, CMP, FERR ####[place] [address] [place], [place] [address] Sodium [Moles/Vol] 143 mmol/L Normal 136-145 [facility] Comment on above: Performed By: #### F E, CBC, VIDH, ANEU, GFR, ADIFF, CMP, FERR ####[address] [address] Total Protein 6.7 G/dL Normal 6.4-8.[address] [facility] Comment on above: Performed By: #### F E, CBC, VIDH, ANEU, GFR, ADIFF, CMP, FERR ####[address] [address] Urea nitrogen [Mass/Vol] 11 mg/dL Normal 7-[address] [facility] Comment on above: Performed By: #### F E, CBC, VIDH, ANEU, GFR, ADIFF, CMP, FERR ####[address] [address] FEon 08-29-2024 Iron [Mass/Vol] 50 ug/dL Low 65-[address] [facility] Comment on above: Performed By: #### G FR, ADIFF, ANEU, BMP, CBC, PBNP #### [address] [address] [place] 08-29-2024 Ferritin [Mass/Vol] 16.0 ng/mL Low 26.0-388.0 [facility] Comment on above: Performed By: #### F E, CBC, VIDH, ANEU, GFR, ADIFF, CMP, FERR ####[id number] [place] [address] LABORATORYOrdered By: SYSTEM SYSTEM on 08-29-2024 25-hydroxyvitamin D3 [Mass/Vol] 47.7 ng/mL Invalid Interpretation Code AO ADM SS Comment on above: Interpretive Data: I nterpretive Values Based on Total 25(OH) Vitamin D: Deficient <20 ng/mL Insufficient 20 - <30 ng/mL Sufficient 30-100 ng/mL Albumin BCP dye [Mass/Vol] 3.3 G/dL Low 3.4 - 4.8 G/dL AO ADM SS Albumin/Globulin [Mass ratio] 1.0 {ratio} Low 1.1 - 2.5 ratio AO ADM SS ALP [Catalytic activity/Vol] 100 U/L Normal 40 - 135 U/L AO ADM SS ALT With P-5'-P [Catalytic activity/Vol] 26 U/L Normal 16 - 63 U/L AO ADM SS AST With P-5'-P [Catalytic activity/Vol] 14 U/L Normal 10 - 40 U/L AO ADM SS Basophils (Bld) [#/Vol] 0.1 103/mcL Normal 0.0 - 0.3 10^3/mcL AO Workflow SS Basophils/100 WBC (Bld) 1.3 % Normal 0.0 - 2.5 % AO Workflow SS Bilirubin [Mass/Vol] 0.5 mg/dL Normal 0.2 - 1 .0 mg/dL AO ADM SS Comment on above: Interpretive Data: U se of this assay is not recommended for patients undergoing treatment with eltrombopag due to the potential for falsely elevated results. Calcium [Mass/Vol] 8.6 mg/dL Normal 8.4 - 10. 2 mg/dL AO ADM SS Chloride [Moles/Vol] 108 mmol/L High 98 - 10 7 mmol/L AO ADM SS CO2 [Moles/Vol] 27 mmol/L Normal 23 - 31 mmol/L AO ADM SS Creatinine [Mass/Vol] 0.99 mg/dL Normal 0.67 - 1.17 mg/dL AO ADM SS Electrolyte Balance 8.0 mEq/L Normal 4.0 - 15 .0 mEq/L AO ADM SS Eosinophil, Absolute 0.5 103/mcL Normal 0.0 - 0 .7 10^3/mcL AO Workflow SS Eosinophils/100 WBC (Bld) 7.1 % High 0.0 - 6.0 % AO Workflow SS Erythrocyte distribution width (RBC) [Ratio] 16.8 % High 11.5 - 15.5 % AO Workflow SS Estimated Glomerular Filtration Rate 75 ml/min/1.73sqm Invalid Interpretation Code AO Chemistry S Comment on above: Interpretive Data: Stages of Chronic Kidney Disease (CKD) Stage Description eGFR(ml/min/1.73 sq.m.) CKD 1 Normal kidney function or >=90 normal kindney function with possible kidney damage (ex. Proteinuria) CKD 2 Kidney damage with mild loss 60-89 of kidney function CKD 3a Mild to moderate loss of kidney 45-59 function CKD 3b Moderate to severe loss of 30-44 of kindey function CKD 4 Severe loss of kidney function 15-29 CKD 5 Kidney failure <15 Note: (go live 2024) the eGFR calculation was updated to the 2020 CKD-EPI creatinine equation without a race factor to calculate the eGFR results. Ferritin [Mass/Vol] 16.0 ng/mL Low 26.0 - 388.0 ng/mL AO ADM SS Globulin 3.4 G/dL Normal 2.7 - 4.4 G/dL AO ADM SS Glucose [Mass/Vol] 106 mg/dL Normal 83 - 110 mg/dL AO ADM SS Hematocrit (Bld) [Volume fraction] 38.5 % Low 40.0 - 52.0 % AO Workflow SS Hemoglobin (Bld) [Mass/Vol] 12.5 G/dL Low 13.0 - 17.5 G/dL AO Workflow SS Iron [Mass/Vol] 50 ug/dL Low 65 - 175 mcg/dL AO ADM SS Lymphocytes (Bld) [#/Vol] 1.1 103/mcL Normal 0.9 - 4.3 10^3/mcL AO Workflow SS Lymphocytes/100 WBC (Bld) 15.7 % Low 20.0 - 40.0 % AO Workflow SS MCH (RBC) [Entitic mass] 28.5 pg Normal 27.0 - 33.0 pg AO Workflow SS MCHC 32.6 G/dL Normal 32.0 - 36.0 G/dL AO Workflow SS MCV (RBC) [Entitic vol] 87.3 fL Normal 81.0 - 100.0 fL AO Workflow SS Monocytes (Bld) [#/Vol] 0.7 103/mcL Normal 0.1 - 1.4 10^3/mcL AO Workflow SS Monocytes/100 WBC (Bld) 10.4 % Normal 2.0 - 13.0 % AO Workflow SS Neutrophils (Bld) [#/Vol] 4.6 103/mcL Normal 2.3 - 8.1 10^3/mcL AO Workflow SS Neutrophils/100 WBC (Bld) 65.5 % Normal 50.0 - 75.0 % AO Workflow SS Platelet mean volume (Bld) [Entitic vol] 8.3 fL Normal 6.4 - 10.5 fL AO Workflow SS Platelets (Bld) [#/Vol] 218 103/mcL Normal 150 - 450 10^3/mcL AO Workflow SS Potassium [Moles/Vol] 4.1 mmol/L Normal 3.5 - 5.1 mmol/L AO ADM SS Protein [Mass/Vol] 6.7 G/dL Normal 6.4 - 8.2 G/dL AO ADM SS RBC (Bld) [#/Vol] 4.41 106/mcL Low 4.50 - 6.00 10^6/mcL AO Workflow SS Sodium [Moles/Vol] 143 mmol/L Normal 136 - 145 mmol/L AO ADM SS Urea nitrogen [Mass/Vol] 11 mg/dL Normal 7 - 18 mg/dL AO ADM SS Urea nitrogen/Creatinine [Mass ratio] 11 ratio Normal 7 - 27 ratio AO ADM SS WBC (Bld) [#/Vol] 7.0 103/mcL Normal 4.5 - 10.8 10^3/mcL AO Workflow SS Natriuretic peptide.B prohormone N-Terminal [Mass/Vol] 116 pg/mL Normal 0 - 450 pg/mL AO ADM SS Comment on above: Interpretive Data: N T-proBNP results of less than 300 pg/mL effectively rules out acute congestive heart failure with 99% negative predictive value. PBNPon 08-29-2024 Natriuretic peptide B (Bld) [Mass/Vol] 116 pg/mL Normal 0-[address] [facility] Comment on above: Result Comment: NT-p roBNP results of less than 300 pg/mL effectively rules out acute congestive heart failure with 99% negative predictive value. Performed By: #### G FR, ADIFF, ANEU, BMP, CBC, PBNP #### [facility] [place] [address] [place], [place] [address] VIDHon 08-29-2024 Vit. D 25-Hydroxy 47.7 ng/mL Normal [facility] Comment on above: Result Comment: Inte rpretive Values Based on Total 25(OH) Vitamin D: Deficient <20 ng/mL Insufficient 20 - <30 ng/mL Sufficient 30-100 ng/mL Performed By: #### G FR, ADIFF, ANEU, BMP, CBC, PBNP #### [place] [id number] [place], [place] [address] Discharge Instructionon 07-15 Discharge Instruction [facility] Medical Records Department [address] [place] [address] Instructions for Home/Discharge Instructions 08/05/24 0720 MR#: [id number] Acct: [id number] Name: HIRAM DORAN Rep #: [id number] : 1940 83 From: Juaquin Pierre MD PCP: Dr. Malissa Rascon MD Status:REG [facility] Discharge Instructions Diet Discharge Diet: No restrictions DC O2, CPAP, BIPAP needs Home O2 Discharge instructions: No Dressing / Incision Discharge Activity: Return to Normal Activity and May Not Drive (while taking narcotic pain medications.) Dressing / Incision Call your doctor if you observe: Fever of 101 or Higher Follow Up Care Please Follow Up With: Juaquin Pierre MD When: Call [phone] for an appointment Test Results: Test results from this visit will be discussed in further detail at your follow-up appointment, if applicable. Discharge Plan Admission Primary Reason for Your Visit: Laser of right kidney stones Attending Provider: Juaquin Pierre Primary Care Provider: Malissa Rascon Instructions Patient Instructions: Kidney Stone Ureteroscopy Print Language: Polish Discharge Orders/Prescriptions Prescriptions: New acetaminophen 500 mg capsule 500 mg PO Q6H PRN (Reason: pain) Qty: 20 0RF phenazopyridine [Pyridium] 100 mg tablet 100 mg PO TID PRN (Reason: pain) Qty: 14 0RF Continued rosuvastatin [Crestor] 5 mg tablet 5 mg PO QDAY metoprolol succinate 25 mg tablet extended release 24 hr 25 mg PO DAILY nitroglycerin 0.4 mg tablet, sublingual 0.4 mg sublingual Q5M PRN (Reason: CP) Rx Instructions: do not exceed 3 doses per episode dofetilide 250 mcg capsule 250 mcg PO Q12H Patient Comments: TAKE 1 CAPSULE BY MOUTH EVERY 12 HOURS midodrine 5 mg tablet 5 mg PO 1000,1400,1800 Patient Comments: Takes in the morning and evening and the afternoon dose is PRN if he needs it. Rx Instructions: HOLD if SBP >100 finasteride 5 mg tablet 5 mg PO DAILY Patient Comments: take 1 tablet by mouth once daily duloxetine 60 mg capsule,delayed release(DR/EC) 120 mg PO DAILY Rx Instructions: 60 mg (2 caps) orally daily; Jardiance 25 mg tablet 12.5 mg PO DAILY Patient Comments: LAST DOSE TO BE 08/02/24 FOR SURGERY ON 08/05/24 levalbuterol HCl 0.63 mg/3 mL solution for nebulization 0.63 mg INHALATION TID Patient Comments: USE 1 VIAL 3 TIMES A DAY ICaps AREDS2 250 mg-200 unit -12.5 mg-1 mg capsule 1 cap PO DAILY lorazepam 0.5 mg Tablet 0.5 mg PO QHS Qty: 5 0RF Eliquis 5 mg Tablet 5 mg PO BID Qty: 0 0RF Patient Comments: LAST DOSE TO B 07/31/24 FOR SURGERY ON 08/05/24 pantoprazole 40 mg tablet,delayed release (DR/EC) 40 mg PO DAILY Patient Comments: take 1 tablet by mouth twice a day take before meals Rx Instructions: Before meals ezetimibe 10 mg tablet 10 mg PO QHS guaifenesin [Mucinex] 1,200 mg tablet extended release 12hr 1,200 mg PO BID Stiolto Respimat 2.5-2.5 mcg/actuation mist 2 inh inhalation DAILY Lactobacillus acidoph-L.bulgar [Floranex] 100 million cell granules in packet 1 packet PO TIDCM tamsulosin 0.4 mg Capsule 0.8 mg PO QHS methocarbamol 750 mg tablet 750 mg PO BID Rx Instructions: for neck pain sucralfate [Carafate] 100 mg/mL suspension 1 g PO DAILY mirtazapine 15 mg Tablet 7.5 mg PO QHS Qty: 0 0RF sennosides-docusate sodium [Senna-S] 8.6-50 mg tablet 1 tab-cap PO DAILY lidocaine 4 % adhesive patch,medicated 2 patch topical DAILY Rx Instructions: may leave on for up to 12 hrs budesonide 0.5 mg/2 mL Suspension For Nebulization 0.5 mg inhalation BID cholecalciferol (vitamin D3) 25 mcg (1,000 unit) Tablet 25 mcg PO DAILYCM Qty: 90 0RF bumetanide 0.5 mg Tablet 1 mg PO MOWEFR PRN (Reason: EDEMA) Qty: 1 0RF Acidophilus Capsule 10 mg PO DAILY acetaminophen 500 mg capsule 500 mg PO TID Referrals / Follow Up: Juaquin Pierre MD [Med Staff - Active Staff] - Malissa Rascon MD [Primary Care Provider] - Disposition Disposition (needs filled in before D/C Order can be placed): Home, Self Care 08/05/24720 Juaquin Pierre MD CC: Dr. Malissa Rascon MD Signed [facility] MR/POSTOP.[facility] 08-05-2024 [facility] Medical [facility] Department [address] [place] [address] Anesthesia Postop Eval I 08/05/24814 MR#: [id number] Acct: [id number] Name: HIRAM DORAN Rep #: [id number] : 1940 83 From: Steve Pedersen PCP: Dr. Malissa Rascon MD Status:REG SDC Y Race: C Location: [place] [address] Anesthesia: Postop Eval I Current Vital Signs Temperature: 98.3 F Pulse Rate: 68 Blood Pressure: 108/67 Respiratory Rate: 16 Pulse Ox: 98 Oxygen Delivery Method: Room Air Assessment Airway patent: Yes Spontaneous unlabored respirations: Yes Mental status: Awake and Calm nausea: No Vomiting: No Anesthesia Complication: No Fluid Hydration Crystalloid volume administer (ml): 600 Total IV fluid infused: 600 Progress Note Anesthesia document: Postop Eval 1 completed: Yes 08/05/24815 Date Steve Pedersen Cosigner Signature: Date CC: Signed [facility] MR/[facility]OP[facility] Medical Records Department [address] [place] [address] Anesthesia Postop Eval I 08/05/24 08 MR#: [id number] Acct: [id number] Name: HIRAM DORAN Rep #: [id number] : 1940 83 From: Steve Pedesren PCP: Dr. Malissa Rascon MD Status:[facility] Y Race: C Location: [facility] Anesthesia: Postop Eval I Current Vital Signs Temperature: 98.3 F Pulse Rate: 68 Blood Pressure: 108/67 Respiratory Rate: 16 Pulse Ox: 98 Oxygen Delivery Method: Room Air Assessment Airway patent: Yes Spontaneous unlabored respirations: Yes Mental status: Awake and Calm nausea: No Vomiting: No Anesthesia Complication: No Fluid Hydration Crystalloid volume administer (ml): 600 Total IV fluid infused: 600 Progress Note Anesthesia document: Postop Eval 1 completed: Yes 08/05/24 133 Date Stevenatividad Westandres Sterling Signature: Date CC: Signed [facility] [id number] 08-05-2024 MR/POSTOPAN2 [facility] Medical Records Department [address] [place] [address] Anesthesia Postop Eval II 08/05/24831 MR#: [id number] Acct: [id number] Name: HIRAM DORAN Rep #: [id number] : 1940 83 From: Lance Cruz MD PCP: Dr. Malissa Rascon MD Status:[facility] Y Race: C Location: [place] [address] Anesthesia Postop Eval I Sum Postop Eval Completion status Anesthesia document: Postop Eval 1 completed: Yes Anesthesia Postop Eval I Summary Anesthesia Postop Eval I Summary: Anesthesia Postop Eval I: Assessment Summary Airway patent Yes 08/05/24 08:16 WASTE TREATMENT OPERATOR.MDOT Spontaneous unlabored Yes 08/05/24 08:16 WASTE TREATMENT OPERATOR.MDOT respirations Mental status Awake,Calm 08/05/24 08:16 WASTE TREATMENT OPERATOR.MDOT nausea No 08/05/24 08:16 WASTE TREATMENT OPERATOR.MDOT Vomiting No 08/05/24 08:16 WASTE TREATMENT OPERATOR.MDOT Anesthesia Postop Eval I: Fluid Summary Crystalloid volume administer 600 08/05/24 08:16 WASTE TREATMENT OPERATOR.MDOT (ml) Colloids volume administered ( ml) Blood Product volume administered (ml) Total IV fluid infused 600 08/05/24 08:16 WASTE TREATMENT OPERATOR.MDOT Anesthesia Postop Eval I: Summary Notes Anesthesia Complication No 08/05/24 08:16 WASTE TREATMENT OPERATOR.MDOT Anesthesia Complication Comment: Post-operative progress note Anesthesia: Postop Eval II Evaluation Mental status: Awake Pain Level: 0 nausea: No Vomiting: No 08/05/24 0832 Date Lance Daveignjuanita Signature: Date CC: Signed Normal [facility] Operative Reporton 5 Operative Report [facility] Medical Records Department [address] [place] [address] Operative Report 08/05/24 0801 MR#: [id number] Acct: [id number] Name: HIRAM DORAN Rep #: [id number] : 1940 83 From: Juaquin Pierre MD PCP: Dr. Malissa Rascon MD Status:REG [facility] Location: [address] Operative Report (Standard) Operative Information Date of Procedure: 08/05/24 Pre-Operative Diagnosis: Right kidney stone Post-Operative Diagnosis: The same Surgery/Procedure Performed: Cystoscopy right ureteroscopy laser lithotripsy of stone no stent atm technician: No Type of Anesthesia: General RN Documented Start/Stop Times: Operation Date: 08/05/24 07:30 Case Time Into Pre-Op 08/05/24 06:05 Out of Pre-Op 08/05/24 07:18 Anesthesia Start 08/05/24 07:27 Into Room 08/05/24 07:27 Procedure Start 08/05/24 07:39 Procedure Start Time: 07:39 Procedure Stop Time: 08:01 Select all DRAINS/GRAFTS/IMPLANTS that apply: None Estimated Blood Loss: None Specimen collected: No Description of surgery: 83-year-old male history of gross hematuria found to have a stone in the right kidney so organ to proceed with right ureteroscopy and laser lithotripsy of the stone. Patient was taken back to the operating room after smooth induction of anesthesia he was placed in dorsolithotomy position penis and testicles were prepped and draped in usual fashion went in the bladder with a 21 Maltese rigid cystourethroscope put a wire up into the right kidney over the wire went over the flexible ureteroscope I went all the way up to the kidney I found the stone in the right renal pelvis is about a 8 mm stone I then used a 200 ???m thulium laser fiber and then dusting of the stone was done with the laser fiber after the stone was completely dusted into small little fragments that should all pass on their own no major fragments left I then worked my way down the ureter no injury or trauma or problems along the ureter. I then remove the ureteroscope, patient anesthetic was reversed no stent placed successfully lasered the stone completely no stent patient was taken back to the PACU after extubation. Surgical Findings: Stone in the right kidney lasered to completely dust Complications Complications: No Admit VTE Documentation VTE Present on Admission: No VTE Mechan Device Prophylaxis: SCD's VTE Pharm Prophylaxis ordered?: No 08/05/24 0803 Cosigner Signature (if applicable): CC: Dr. Juaquin Pierre MD; Dr. Malissa Rascon MD Signed [facility] MR/PATNano 07-26-2024 MR/PAT.[facility] Medical Records Department [address] [place] [address] PAT - Anesthesia 07/26/24 1633 MR#: [id number] Acct: [id number] Name: HIRAM DORAN Rep #: [id number] : 1940 83 From: Hanh Underwood MD PCP: Dr. 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 When Was Last Pacemaker Check QUESTION #4 FULL TEXT: You/Your Family Experience fever (hyperthermia) with Anesthesia Last Oral Intake Last Oral intake: Last Oral Intake NPO since Meds taken in AM with sips of water? Meds patient instructed to take am of surgery PONV PONV - nanny babysitter: PONV - nanny babysitter Female No 07/22/24 11:55 HX of Motion Sickness No 07/22/24 11:55 HX of N/V After Surgery No 07/22/24 11:55 Non-Smoker Yes 07/22/24 11:55 Duration of Surgery greater Yes 07/22/24 11:55 than 60 minutes Number of Risk Factors 2 07/22/24 11:55 PONV Score Moderate Risk 07/22/24 11:55 Height Weight Height Weight: Anesthesia: Height Weight Height 5 ft 8 in 03/11/24 11:53 Respiratory Assessment Respiratory Assessment - nanny babysitter: Respiratory Tract Infection Hx - nanny babysitter Hx Respiratory Tract Infection No 07/22/24 11:55 STOP Sleep Apnea STOP Sleep Apnea - nanny babysitter: STOP Sleep Apnea - nanny babysitter Hx Hypertension No 07/22/24 11:55 Hx Sleep Apnea Yes 07/22/24 11:55 CPAP Yes 07/22/24 11:55 BIPAP No 07/22/24 11:55 Do you snore loudly (louder than talking or can be heard Do you often feel tired/ fatigued/ sleepy during daytime? Has anyone observed you stop breathing during sleep? STOP Results Positive 07/22/24 11:55 QUESTION #5 FULL TEXT : Do you snore loudly (louder than talking or can be heard through closed doors)? 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 Specify any problems Hx of Preganancy in last 3 N/A 07/22/24 11:55 Months Nurse Filling Out Transfusion ROSE 07/22/24 11:55 Questions: Date: 07/22/24 07/22/24 11:55 Time: 11:59 07/22/24 11:55 Patient unable to answer at this time (ie. confused, unrespo /Reproduction History /Reproductive History - nanny babysitter: /Reproductive Hx- nanny babysitter Hx Now Gestational Age (in weeks): EDC: Hx Hx Para Hx Section [facility] Medical History (Updated 07/22/24 @ 12:16 by Ayah Cutler) History of stress test History of echocardiogram Ambulates with cane COPD (chronic obstructive pulmonary disease) Difficulty swallowing Gastric reflux History of edema History of atrial fibrillation Cardiology follow-up encounter Dementia Grade II diastolic dysfunction Vitamin D deficiency Wears hearing aid in both ears Anemia Pancreatitis Former smoker CPAP (continuous positive airway pressure) dependence Sleep apnea On home oxygen therapy Congestive heart failure (CHF) TIA (transient ischemic attack) Muscle spasm (HFpEF) heart failure with preserved ejection fraction Macular degeneration Orthostatic hypotension Coronary artery disease Depression Anxiety Pulmonary fibrosis Sinus node dysfunction HFrEF (heart failure wi (more content not included)... Normal [facility] Abdomen/Pelvis without Conto n 07-19-2024 Abdomen/Pelvis without Cont [facility] Imaging Services [address] [place] [address] Abdomen/Pelvis without Cont MR#: [id number] Acct: [id number] Name: HIRAM DORAN Rep #: [id number] : 1940 M 83 From: Sergio vance MD PCP: Dr. Malissa Rascon MD Status: REG CLI Study: Abdomen/Pelvis without Cont Date of Exam: 09/07 Exam# [id number] Ordering Dr: Juaquin Pierre MD PROCEDURE: ABDOMEN/PELVIS WITHOUT CONT 07/19/2024 REASON FOR EXAM: GROSS HEMATURIA TECHNIQUE: Abdomen and pelvis CT without intravenous contrast. Noncontrast technique limits evaluation of the abdominal and pelvic viscera. Coronal and Sagittal reconstruction series were provided. One or more dose reduction techniques were used (e.g., Automated exposure control, adjustment of the mA and/or kV according to patient size, use of iterative reconstruction technique). PATIENT PREPARATION: Per protocol ORAL CONTRAST TYPE: None. AMOUNT: mL COMPARISON: CT abdomen and pelvis 03/07/2024 FINDINGS: Lung bases: Severe emphysema. Bibasilar atelectasis and scarring. Severe coronary artery calcifications. Trace pericardial effusion. Liver: Normal size. No obvious mass. Gallbladder: No ductal dilation. Status post cholecystectomy. Spleen: No splenomegaly. Scattered calcified granulomas. Pancreas: Normal size. No surrounding inflammation. Adrenals: Unremarkable. Kidneys: 4 mm proximal right ureteral obstructing calculus without hydronephrosis. No suspicious mass. Bladder: 12 mm lateral right diverticulum. No wall thickening. Reproductive Organs: No pelvic mass. Bowel: Stomach is unremarkable. No bowel dilation or significant wall thickening. Moderate colonic stool. Colonic diverticulosis without diverticulitis. Appendix: The appendix is not identified. There is no inflammatory process identified in the right lower quadrant to suggest appendicitis. Lymph nodes: No suspicious lymph node enlargement. Vasculature: The abdominal aorta and IVC contours are normal. Noncontrast technique limits evaluation. Moderate atherosclerotic calcifications. Peritoneum / Retroperitoneum: No pneumoperitoneum. Bones: Degenerative changes of the spine. Soft tissue: Small fat containing umbilical hernia. CT/Abdomen/Pelvis without Cont IMPRESSION: 1. 4 mm proximal right ureteral obstructing calculus without hydronephrosis. 2. Colonic diverticulosis without diverticulitis. Reading Location: [facility] CC: Dr. Juaquin Pierre MD; Dr. Malissa Rascon MD Public Health Officer: Signed Normal [facility] No Panel Informationon 07-16 Culture Urine <10,000 cfu/ml. No Significant growth. Sensitivity not indicated. [facility] Work Phone: Respiratory Cultureon 2024 RESPC No Haemophilus, Streptococcus pneumoniae, beta-hemolytic Streptococcus or Staphylococcus aureus isolated. Presumptive C albicans Amount Growth Rare Normal [facility] Comment on above: Performed By: #### M 100.2400, M100.1999 ####[facility] [address] [place], [address] .Auto Diffon 06-24-2024 Basophil, Absolute 0.1 10 3/mcL Normal 0.0-0.3 [facility] Comment on above: Performed By: #### A ROSIO, BMP, PBNP, ADIFF, CBC, GFR #### [address] [address] Basophils/100 WBC (Bld) 0.6 % Normal 0.0-2.[address] [facility] Comment on above: Performed By: #### A ROSIO, BMP, PBNP, ADIFF, CBC, GFR #### [address] [address] Eosinophil, Absolute 0.3 10 3/mcL Normal 0.0-0.7 [facility] Comment on above: Performed By: #### A ROSIO, BMP, PBNP, ADIFF, CBC, GFR #### [address] [address] Eosinophils/100 WBC (Bld) 3.0 % Normal 0.0-6.[address] [facility] Comment on above: Performed By: #### A ROSIO, BMP, PBNP, ADIFF, CBC, GFR #### [address] [address] Lymphocyte, Absolute 0.6 10 3/mcL Low 0.9-4.3 [facility] Comment on above: Performed By: #### A ROSIO, BMP, PBNP, ADIFF, CBC, GFR #### [address] [address] Lymphocytes/100 WBC (Bld) 6.0 % Low 20.0-40.[address] [facility] Comment on above: Performed By: #### A ROSIO, BMP, PBNP, ADIFF, CBC, GFR #### [address] [address] Monocyte, Absolute 0.6 10 3/mcL Normal 0.1-1.4 [facility] Comment on above: Performed By: #### A ROSIO, BMP, PBNP, ADIFF, CBC, GFR #### [address] [address] Monocytes/100 WBC (Bld) 5.4 % Normal 2.0-13.[address] [facility] Comment on above: Performed By: #### A ROSIO, BMP, PBNP, ADIFF, CBC, GFR #### [address] [address] Neutrophils/100 WBC (Bld) 85.0 % High 50.0-75.[address] [facility] Comment on above: Performed By: #### A ROSIO, BMP, PBNP, ADIFF, CBC, GFR #### [address] [address] .GFRon 06-24-2024 Estimated Glomerular Filtration Rate 68 ml/min/1.73sqm Normal [facility] Comment on above: Result Comment: Stages of Chronic Kidney Disease (CKD) Stage Description eGFR(ml/min/1.73 sq.m.) CKD 1 Normal kidney function or >=90 normal kindney function with possible kidney damage (ex. Proteinuria) CKD 2 Kidney damage with mild loss 60-89 of kidney function CKD 3a Mild to moderate loss of kidney 45-59 function CKD 3b Moderate to severe loss of 30-44 of kindey function CKD 4 Severe loss of kidney function 15-29 CKD 5 Kidney failure <15 Note: (go live 2024) the eGFR calculation was updated to the 2020 CKD-EPI creatinine equation without a race factor to calculate the eGFR results. Performed By: #### A ROSIO, BMP, PBNP, ADIFF, CBC, GFR ####[facility] [place] [place], [place] [address] .NEUABSon 06-24-2024 Neutrophil, Absolute 9.2 10 3/mcL High 2.3-8.1 [facility] Comment on above: Performed By: #### A ROSIO, BMP, PBNP, ADIFF, CBC, GFR ####[address] [place], [place] [address] BMPon 06-24-2024 BUN/Creatinine Ratio 13 ratio Normal 7-27 [facility] Comment on above: Performed By: #### A ROSIO, BMP, PBNP, ADIFF, CBC, GFR ####[address] [place], [place] [address] Calcium [Mass/Vol] 8.9 mg/dL Normal 8.4-10.2 [facility] Comment on above: Performed By: #### A ROSIO, BMP, PBNP, ADIFF, CBC, GFR ####[address] [address] Chloride [Moles/Vol] 106 mmol/L Normal 98-107 [facility] Comment on above: Performed By: #### A ROSIO, BMP, PBNP, ADIFF, CBC, GFR ####[address] [place], [place] [address] CO2 [Moles/Vol] 29 mmol/L Normal 23-[address] [facility] Comment on above: Performed By: #### A ROSIO, BMP, PBNP, ADIFF, CBC, GFR ####[address] [place], [place] [address] Creatinine [Mass/Vol] 1.07 mg/dL Normal 0.70-1.30 [facility] Comment on above: Result Comment: Test ing performed on Siemens Dimension EXL analyzer using a modified kinetic Arin technique. Performed By: #### A ROSIO, BMP, PBNP, ADIFF, CBC, GFR ####[address] [place], [place] [address] Electrolyte Balance 6.0 mEq/L Normal 4.0-15.0 [facility] Comment on above: Performed By: #### A ROSIO, BMP, PBNP, ADIFF, CBC, GFR ####[address] [place] [id number] Glucose [Mass/Vol] 108 mg/dL Normal 83-110 [facility] Comment on above: Performed By: #### A ROSIO, BMP, PBNP, ADIFF, CBC, GFR ####[address] [address] Potassium [Moles/Vol] 4.3 mmol/L Normal 3.5-5.1 [facility] Comment on above: Performed By: #### A ROSIO, BMP, PBNP, ADIFF, CBC, GFR ####[address] [address] Sodium [Moles/Vol] 141 mmol/L Normal 136-145 [facility] Comment on above: Performed By: #### A ROSIO, BMP, PBNP, ADIFF, CBC, GFR ####[address] [address] Urea nitrogen [Mass/Vol] 14 mg/dL Normal 7-[address] [facility] Comment on above: Performed By: #### A ROSIO, BMP, PBNP, ADIFF, CBC, GFR ####[address] [address] CBCon 06-24-2024 Erythrocyte distribution width (RBC) [Ratio] 16.1 % High 11.5-15.[address] [facility] Comment on above: Performed By: #### A ROSIO, BMP, PBNP, ADIFF, CBC, GFR #### [address] [address] Hematocrit (Bld) [Volume fraction] 37.4 % Low 40.0-52.[address] [facility] Comment on above: Performed By: #### A ROSIO, BMP, PBNP, ADIFF, CBC, GFR #### [address] [address] Hgb 12.1 G/dL Low 13.0-17.[address] [facility] Comment on above: Performed By: #### A ROSIO, BMP, PBNP, ADIFF, CBC, GFR #### [address] [address] MCH (RBC) [Entitic mass] 28.0 pg Normal 27.0-33.[address] [facility] Comment on above: Performed By: #### A ROSIO, BMP, PBNP, ADIFF, CBC, GFR #### [address] [address] MCHC 32.5 G/dL Normal 32.0-36.[address] [facility] Comment on above: Performed By: #### A ROSIO, BMP, PBNP, ADIFF, CBC, GFR #### [address] [address] MCV (RBC) [Entitic vol] 86.0 fL Normal 81.0-100.[address] [facility] Comment on above: Performed By: #### A ROSIO, BMP, PBNP, ADIFF, CBC, GFR #### [address] [address] Platelet 239 10 3/mcL Normal 150-[address] [facility] Comment on above: Performed By: #### A ROSIO, BMP, PBNP, ADIFF, CBC, GFR #### [address] [address] Platelet mean volume (Bld) [Entitic vol] 7.6 fL Normal 6.4-10.[address] [facility] Comment on above: Performed By: #### A ROSIO, BMP, PBNP, ADIFF, CBC, GFR #### [facility] [place] [address] [place], [place] [address] RBC 4.35 10 6/mcL Low 4.50-6.[address] [facility] Comment on above: Performed By: #### A ROSIO, BMP, PBNP, ADIFF, CBC, GFR #### [facility] [place] [address] [place], [place] [address] WBC 10.8 10 3/mcL Normal 4.5-10.[address] [facility] Comment on above: Performed By: #### A ROSIO, BMP, PBNP, ADIFF, CBC, GFR #### [facility] [place] [address] [place], [place] [address] Gram Stainon 06-24-2024 GS Acceptable Specimen? Yes (<25 Epithelial cells per/lpf) Gram Stain 1+ Epithelial cells 1+ Gram positive cocci 1+ Gram positive rods 2+ White Blood Cells Normal [facility] Comment on above: Performed By: #### M 100.2400, M100.2000 ####[facility] [address] [facility] [place], [place], [id number] PBNPon 06-24-2024 Natriuretic peptide B (Bld) [Mass/Vol] 359 pg/mL Normal 0-[address] [facility] Comment on above: Result Comment: NT-p roBNP results of less than 300 pg/mL effectively rules out acute congestive heart failure with 99% negative predictive value. Performed By: #### A ROSIO, BMP, PBNP, ADIFF, CBC, GFR ####[facility] [place] [place], [place] [address] Gram stainOrdered By: Nika Donald on 06-23-2024 Microscopic observation Gram stain Nom (Unsp spec) [facility] Microbial respiratory cultur eOrdered By: Nika Donald on 06-23-2024 Microorganism identified Cx Nom (Unsp spec) Presumptive C albicans Abnormal [facility] Microorganism identified Cx Nom (Unsp spec)Ordered By: Nika Donald on 06-23-2024 Respiratory Culture Presumptive C albicans Abnormal [facility] Chest PA and Lateralon 06-16 Chest PA and Lateral [facility] [address] [place] [address] Chest PA and Lateral MR#: [id number] Acct: [id number] Name: HIRAM DORAN Rep #: [id number] : 1940 M 83 From: Liban Hand MD PCP: Dr. Malissa Rascon MD Status: REG CLI Study: Chest PA and Lateral Date of Exam: 06/16/24 Exam# [id number] Ordering Dr: Nika Donald MD EXAM: XR Chest, 2 Views CLINICAL INDICATION: COPD TECHNIQUE: Frontal and lateral views of the chest. COMPARISON: No relevant prior studies available. FINDINGS: LUNGS AND PLEURAL SPACES: Bibasilar atelectasis or pneumonia. Pulmonary venous congestion. No pneumothorax. HEART: Unremarkable. No cardiomegaly. MEDIASTINUM: Unremarkable. Normal mediastinal contour. BONES/JOINTS: Unremarkable. No acute fracture. RAD/Chest PA and Lateral IMPRESSION: 1. Bibasilar atelectasis or pneumonia. 2. Pulmonary venous congestion. Reading Location: [facility] CC: Dr. Nika Donald MD; Dr. Malissa Rascon MD Public Health Officer: Signed Normal [facility] .Auto Diffon 05-30-2024 Basophil, Absolute 0.1 10 3/mcL Normal 0.0-0.2 [facility] Comment on above: Performed By: #### G FR, ADIFF, ANEU, BMP, CBC, PBNP #### [address] [place], [place] [address] Basophils/100 WBC (Bld) 1.4 % Normal 0.0-2.[address] [facility] Comment on above: Performed By: #### G FR, ADIFF, ANEU, BMP, CBC, PBNP #### [address] [place], [place] [address] Eosinophil, Absolute 0.6 10 3/mcL Normal 0.0-0.7 [facility] Comment on above: Performed By: #### G FR, ADIFF, ANEU, BMP, CBC, PBNP #### [address] [place], [place] [address] Eosinophils/100 WBC (Bld) 7.6 % High 0.0-7.[address] [facility] Comment on above: Performed By: #### G FR, ADIFF, ANEU, BMP, CBC, PBNP #### [address] [address] Lymphocyte, Absolute 1.1 10 3/mcL Normal 0.9-4.3 [facility] Comment on above: Performed By: #### G FR, ADIFF, ANEU, BMP, CBC, PBNP #### [address] [address] Lymphocytes/100 WBC (Bld) 15.4 % Low 20.0-40.[address] [facility] Comment on above: Performed By: #### G FR, ADIFF, ANEU, BMP, CBC, PBNP #### [address] [address] Monocyte, Absolute 0.8 10 3/mcL Normal 0.1-1.4 [facility] Comment on above: Performed By: #### G FR, ADIFF, ANEU, BMP, CBC, PBNP #### [address] [address] Monocytes/100 WBC (Bld) 11.5 % Normal 2.0-13.[address] [facility] Comment on above: Performed By: #### G FR, ADIFF, ANEU, BMP, CBC, PBNP #### [address] [address] Neutrophils/100 WBC (Bld) 64.1 % Normal 50.0-75.[address] [facility] Comment on above: Performed By: #### G FR, ADIFF, ANEU, BMP, CBC, PBNP #### [address] [address] .GFRon 05-30-2024 Estimated Glomerular Filtration Rate 77 ml/min/1.73sqm Normal [facility] Comment on above: Result Comment: Stages of Chronic Kidney Disease (CKD) Stage Description eGFR(ml/min/1.73 sq.m.) CKD 1 Normal kidney function or >=90 normal kindney function with possible kidney damage (ex. Proteinuria) CKD 2 Kidney damage with mild loss 60-89 of kidney function CKD 3a Mild to moderate loss of kidney 45-59 function CKD 3b Moderate to severe loss of 30-44 of kindey function CKD 4 Severe loss of kidney function 15-29 CKD 5 Kidney failure <15 Note: (go live 2024) the eGFR calculation was updated to the 2020 CKD-EPI creatinine equation without a race factor to calculate the eGFR results. Performed By: #### G FR, ADIFF, ANEU, BMP, CBC, PBNP #### [address] [address] .NEUABSon 05-30-2024 Neutrophil, Absolute 4.7 10 3/mcL Normal 2.3-8.1 [facility] Comment on above: Performed By: #### G FR, ADIFF, ANEU, BMP, CBC, PBNP #### [address] [address] BMPon 05-30-2024 BUN/Creatinine Ratio 12 ratio Normal 7-27 [facility] Comment on above: Performed By: #### G FR, ADIFF, ANEU, BMP, CBC, PBNP #### [address] [address] Calcium [Mass/Vol] 8.4 mg/dL Normal 8.4-10.2 [facility] Comment on above: Performed By: #### G FR, ADIFF, ANEU, BMP, CBC, PBNP #### [address] [address] Chloride [Moles/Vol] 106 mmol/L Normal 98-107 [facility] Comment on above: Performed By: #### G FR, ADIFF, ANEU, BMP, CBC, PBNP #### [address] [address] CO2 [Moles/Vol] 29 mmol/L Normal 23-[address] [facility] Comment on above: Performed By: #### G FR, ADIFF, ANEU, BMP, CBC, PBNP #### [address] [address] Creatinine [Mass/Vol] 0.96 mg/dL Normal 0.70-1.30 [facility] Comment on above: Result Comment: Test ing performed on Siemens Dimension EXL analyzer using a modified kinetic Arin technique. Performed By: #### G FR, ADIFF, ANEU, BMP, CBC, PBNP #### [address] [address] Electrolyte Balance 5.0 mEq/L Normal 4.0-15.0 [facility] Comment on above: Performed By: #### G FR, ADIFF, ANEU, BMP, CBC, PBNP #### [place] [address] Glucose [Mass/Vol] 100 mg/dL Normal 83-110 [facility] Comment on above: Performed By: #### G FR, ADIFF, ANEU, BMP, CBC, PBNP #### [place] [address] Potassium [Moles/Vol] 4.2 mmol/L Normal 3.5-5.1 [facility] Comment on above: Performed By: #### G FR, ADIFF, ANEU, BMP, CBC, PBNP #### [place] [address] Sodium [Moles/Vol] 140 mmol/L Normal 136-145 [facility] Comment on above: Performed By: #### G FR, ADIFF, ANEU, BMP, CBC, PBNP #### [address] [address] Urea nitrogen [Mass/Vol] 12 mg/dL Normal 7-[address] [facility] Comment on above: Performed By: #### G FR, ADIFF, ANEU, BMP, CBC, PBNP #### [address] [address] CBCon 05-30-2024 Erythrocyte distribution width (RBC) [Ratio] 15.1 % Normal 11.5-15.[address] [facility] Comment on above: Performed By: #### G FR, ADIFF, ANEU, BMP, CBC, PBNP #### [address] [address] Hematocrit (Bld) [Volume fraction] 35.6 % Low 40.0-52.[address] [facility] Comment on above: Performed By: #### G FR, ADIFF, ANEU, BMP, CBC, PBNP #### [address] [address] Hgb 11.6 G/dL Low 13.0-17.[address] [facility] Comment on above: Performed By: #### G FR, ADIFF, ANEU, BMP, CBC, PBNP #### [address] [address] MCH (RBC) [Entitic mass] 28.0 pg Normal 27.0-33.[address] [facility] Comment on above: Performed By: #### G FR, ADIFF, ANEU, BMP, CBC, PBNP #### [address] [address] MCHC 32.5 G/dL Normal 32.0-36.[address] [facility] Comment on above: Performed By: #### G FR, ADIFF, ANEU, BMP, CBC, PBNP #### [address] [address] MCV (RBC) [Entitic vol] 86.1 fL Normal 81.0-100.[address] [facility] Comment on above: Performed By: #### G FR, ADIFF, ANEU, BMP, CBC, PBNP #### [address] [address] Platelet 230 10 3/mcL Normal 150-[address] [facility] Comment on above: Performed By: #### G FR, ADIFF, ANEU, BMP, CBC, PBNP #### [address] [address] Platelet mean volume (Bld) [Entitic vol] 7.9 fL Normal 6.4-10.[address] [facility] Comment on above: Performed By: #### G FR, ADIFF, ANEU, BMP, CBC, PBNP #### [address] [place], [place] [address] RBC 4.13 10 6/mcL Low 4.50-6.[address] [facility] Comment on above: Performed By: #### G FR, ADIFF, ANEU, BMP, CBC, PBNP #### [address] [place], [place] [address] WBC 7.4 10 3/mcL Normal 4.5-10.[address] [facility] Comment on above: Performed By: #### G FR, ADIFF, ANEU, BMP, CBC, PBNP #### [address] [place], [place] [address] PBNPon 05-30-2024 Natriuretic peptide B (Bld) [Mass/Vol] 75 pg/mL Normal 0-[address] [facility] Comment on above: Result Comment: NT-p roBNP results of less than 300 pg/mL effectively rules out acute congestive heart failure with 99% negative predictive value. Performed By: #### G FR, ADIFF, ANEU, BMP, CBC, PBNP #### [address] [place], [place] [address] Respiratory Cultureon 2024 RESPC Mixed normal respira tory lyudmila. No Streptococcus pneumoniae, beta-hemolytic Streptococcus or Staphylococcus aureus isolated. Normal [facility] Comment on above: Performed By: #### M 100.1999, M100.2400 ####[facility] [address] [facility] [place], [place], [address] Gram Stainon 05-18-2024 GS Positive Normal [facility] Comment on above: Performed By: #### M 100.1999, M100.2400 ####[facility] [address] [facility] [address] [place], [place], [id number] Gram stainOrdered By: Nika Donald on 05-17-2024 Microscopic observation Gram stain Nom (Unsp spec) [facility] Microbial respiratory cultur eOrdered By: Nika Donald on 05-17-2024 Microorganism identified Cx Nom (Unsp spec) or Staphylococcus aureus isolated. [facility] Microorganism identified Cx Nom (Unsp spec)Ordered By: Nika Donald on 05-17-2024 Respiratory Culture or Staphylococcus au reus isolated. [facility] Chest without Contraston Chest without Contrast [facility] Imaging Services [address] [place] [address] Chest without Contrast MR#: [id number] Acct: [id number] Name: HIRAM DORAN Rep #: [id number] : 1940 M 83 From: Chris de dios MD PCP: Dr. Malissa Rascon MD Status: REG CLI Study: Chest without Contrast Date of Exam: 05/04/24 Exam# [id number] Ordering Dr: Nika Donald MD PROCEDURE: CHEST WITHOUT CONTRAST REASON FOR EXAM: Pulmonary nodule. COPD. Former smoker. TECHNIQUE: Chest CT without contrast. COMPARISON: Comparison is made with prior examination dated March 02, 2024. FINDINGS: Hardware: None. Lymph nodes: Small benign-appearing mediastinal lymph nodes. Heart and Vasculature: Normal heart size. No pericardial effusion. Atherosclerotic calcifications of the thoracic aorta. Thoracic aorta and pulmonary arteries have normal contours; noncontrast technique limits evaluation. Coronary Artery Calcifications: Present Lungs and Airways: Hyperinflation and emphysematous changes with bullous formation. Stable 2 cm nodule along the left major fissure. The previously seen nodular density in the lingular segment of the left upper lobe laterally as almost completely resolved and most likely represents an area of scarring. Pleura: No pleural effusion. No pneumothorax. Upper Abdomen: Visualized portions of the upper abdominal viscera are unremarkable. Bones: Degenerative changes of the thoracic spine. Increased kyphosis. CT/Chest without Contrast IMPRESSION: Interval decrease in size with almost complete resolution of the previously seen nodular density in the lateral aspect of the lingular segment of the left upper lobe. Stable nodule in the left major fissure. Stable hyperinflation and emphysematous changes. One or more dose reduction techniques were used (e.g., Automated exposure control, adjustment of the mA and/or kV according to patient size, use of iterative reconstruction technique). Reading Location: [id number] CC: Dr. Nika Donald MD; Dr. Malissa Rascon MD Public Health Officer: Signed Normal [facility] Basic Metabolic Profile (BMP )on 03-30-2024 BUN Normal 7-18 [facility] Comment on above: Result Comment: Canc elled via OM: Order cancelled - Patient discharged Performed By: #### L 500.2500, L100.0100 ####[facility] [address] [place], [address] BUN/CRE Normal 10-20 [facility] Comment on above: Result Comment: Canc elled via OM: Order cancelled - Patient discharged Performed By: #### L 500.2500, L100.0100 ####[facility] [address] [place], [address] CA,Total Normal 8.5-10.1 [facility] Comment on above: Result Comment: Canc elled via OM: Order cancelled - Patient discharged Performed By: #### L 500.2500, L100.0100 ####[facility] [address] [place], [address] CL Normal 98-107 [facility] Comment on above: Result Comment: Canc elled via OM: Order cancelled - Patient discharged Performed By: #### L 500.2500, L100.0100 ####[facility] [address] [place], [address] CO2 Normal 21.0-32.0 [facility] Comment on above: Result Comment: Canc elled via OM: Order cancelled - Patient discharged Performed By: #### L 500.2500, L100.0100 ####[facility] [address] [place], [address] CREAT,SERUM Normal 0.70-1.30 [facility] Comment on above: Result Comment: Canc elled via OM: Order cancelled - Patient discharged Performed By: #### L 500.2500, L100.0100 ####[facility] [address] [place], [address] EST GFR Normal >60 [facility] Comment on above: Result Comment: Canc elled via OM: Order cancelled - Patient discharged Performed By: #### L 500.2500, L100.0100 ####[facility] [address] [place], [address] EST GFR - AA Normal >60 [facility] Comment on above: Result Comment: Canc elled via OM: Order cancelled - Patient discharged Performed By: #### L 500.2500, L100.0100 ####[facility] [address] [place], [address] GAP Normal 5-15 [facility] Comment on above: Result Comment: Canc elled via OM: Order cancelled - Patient discharged Performed By: #### L 500.2500, L100.0100 ####[facility] [address] [place], [address] GLU Normal 74-106 [facility] Comment on above: Result Comment: Canc elled via OM: Order cancelled - Patient discharged Performed By: #### L 500.2500, L100.0100 ####[facility] [address] [place], [address] Potassium Normal 3.5-5.1 [facility] Comment on above: Result Comment: Canc elled via OM: Order cancelled - Patient discharged Performed By: #### L 500.2500, L100.0100 ####[facility] [address] [place], [address] Basic Metabolic Profile (BMP) Normal 136-145 [facility] Comment on above: Result Comment: Canc elled via OM: Order cancelled - Patient discharged Performed By: #### L 500.2500, L100.0100 ####[facility] [address] [place], [address] CBC W/Diff, Automatedon 01- Absolute Neut Normal 2.0-7.7 [facility] Comment on above: Result Comment: Canc elled via OM: Order cancelled - Patient discharged Performed By: #### L 500.2500, L100.0100 ####[facility] [address] [place], [address] HCT Normal 40-54 [facility] Comment on above: Result Comment: Canc elled via OM: Order cancelled - Patient discharged Performed By: #### L 500.2500, L100.0100 ####[facility] [address] [place], [address] HGB Normal 13.0-16.5 [facility] Comment on above: Result Comment: Canc elled via OM: Order cancelled - Patient discharged Performed By: #### L 500.2500, L100.0100 ####[facility] [address] [place], [address] MCH Normal 27.0-32.0 [facility] Comment on above: Result Comment: Canc elled via OM: Order cancelled - Patient discharged Performed By: #### L 500.2500, L100.0100 ####[facility] [address] [place], [address] MCHC Normal 32-36 [facility] Comment on above: Result Comment: Canc elled via OM: Order cancelled - Patient discharged Performed By: #### L 500.2500, L100.0100 ####[facility] [address] [place], [address] MCV Normal 80-94 [facility] Comment on above: Result Comment: Canc elled via OM: Order cancelled - Patient discharged Performed By: #### L 500.2500, L100.0100 ####[facility] [address] [place], [address] NEUT% Normal 47-70 [facility] Comment on above: Result Comment: Canc elled via OM: Order cancelled - Patient discharged Performed By: #### L 500.2500, L100.0100 ####[facility] [address] [place], [address] PLT Normal 150-450 [facility] Comment on above: Result Comment: Canc elled via OM: Order cancelled - Patient discharged Performed By: #### L 500.2500, L100.0100 ####[facility] [address] [place], [address] RBC Normal 4.6-6.2 [facility] Comment on above: Result Comment: Canc elled via OM: Order cancelled - Patient discharged Performed By: #### L 500.2500, L100.0100 ####[facility] [address] [place], [address] RDW CV Normal 11.6-14.6 [facility] Comment on above: Result Comment: Canc elled via OM: Order cancelled - Patient discharged Performed By: #### L 500.2500, L100.0100 ####[facility] [address] [place], [address] RDW SD Normal 35.1-43.9 [facility] Comment on above: Result Comment: Canc elled via OM: Order cancelled - Patient discharged Performed By: #### L 500.2500, L100.0100 ####[facility] [address] [place], [address] WBC Normal 4.4-11.0 [facility] Comment on above: Result Comment: Canc elled via OM: Order cancelled - Patient discharged Performed By: #### L 500.2500, L100.0100 ####[facility] [address] [place], [address] .GFRon 03-23-2024 GFR 104 ml/min/1.73sqm Normal [facility] Comment on above: Result Comment: GFR Population mean for , Non- Americans Ages 20-29 = 116 mL/min/1.73 sq.m. Ages 30-39 = 107 mL/min/1.73 sq.m. Ages 40-49 = 99 mL/min/1.73 sq.m. Ages 50-59 = 93 mL/min/1.73 sq.m. Ages 60-69 = 85 mL/min/1.73 sq.m. Ages 70+ = 75 mL/min/1.73 sq.m. Chronic Kidney Disease: Less than 60 mL/min/1.73 square meters End Stage Renal Disease: Less than 15 mL/min/1.73 square meters Performed By: #### G FR, ADIFF, ANEU, BMP, CBC, PBNP #### [id number] [place], [place] [address] GFR Non- 86 ml/min/1.73sqm Normal [facility] Comment on above: Result Comment: GFR Population mean for , Non- Americans Ages 20-29 = 116 mL/min/1.73 sq.m. Ages 30-39 = 107 mL/min/1.73 sq.m. Ages 40-49 = 99 mL/min/1.73 sq.m. Ages 50-59 = 93 mL/min/1.73 sq.m. Ages 60-69 = 85 mL/min/1.73 sq.m. Ages 70+ = 75 mL/min/1.73 sq.m. Chronic Kidney Disease: Less than 60 mL/min/1.73 square meters End Stage Renal Disease: Less than 15 mL/min/1.73 square meters Performed By: #### G FR, ADIFF, ANEU, BMP, CBC, PBNP #### [address] [address] BMPon 03-23-2024 BUN/Creatinine Ratio 13 ratio Normal 7-27 [facility] Comment on above: Performed By: #### G FR, ADIFF, ANEU, BMP, CBC, PBNP #### [address] [place], [place] [address] Calcium [Mass/Vol] 9.1 mg/dL Normal 8.4-10.2 [facility] Comment on above: Performed By: #### G FR, ADIFF, ANEU, BMP, CBC, PBNP #### [address] [address] Chloride [Moles/Vol] 103 mmol/L Normal 98-107 [facility] Comment on above: Performed By: #### G FR, ADIFF, ANEU, BMP, CBC, PBNP #### [address] [address] CO2 [Moles/Vol] 30 mmol/L Normal 23-[address] [facility] Comment on above: Performed By: #### G FR, ADIFF, ANEU, BMP, CBC, PBNP #### [address] [address] Creatinine [Mass/Vol] 0.85 mg/dL Normal 0.70-1.30 [facility] Comment on above: Result Comment: Test ing performed on Siemens Dimension EXL analyzer using a modified kinetic Arin technique. Performed By: #### G FR, ADIFF, ANEU, BMP, CBC, PBNP #### [address] [address] Electrolyte Balance 9.0 mEq/L Normal 4.0-15.0 [facility] Comment on above: Performed By: #### G FR, ADIFF, ANEU, BMP, CBC, PBNP #### [address] [address] Glucose [Mass/Vol] 115 mg/dL High 83-110 [facility] Comment on above: Performed By: #### G FR, ADIFF, ANEU, BMP, CBC, PBNP #### [address] [address] Potassium [Moles/Vol] 4.1 mmol/L Normal 3.5-5.1 [facility] Comment on above: Performed By: #### G FR, ADIFF, ANEU, BMP, CBC, PBNP #### [address] [address] Sodium [Moles/Vol] 142 mmol/L Normal 136-145 [facility] Comment on above: Performed By: #### G FR, ADIFF, ANEU, BMP, CBC, PBNP #### [facility] [place] [address] [place], [place] [address] Urea nitrogen [Mass/Vol] 11 mg/dL Normal - [facility] Comment on above: Performed By: #### G FR, ADIFF, ANEU, BMP, CBC, PBNP #### [address] [place], [place] [address] Basic Metabolic Profile (BMP )on 03-23-2024 BUN Normal -18 [facility] Comment on above: Result Comment: Canc elled via OM: Order cancelled - Patient discharged Performed By: #### L 100.0100, L500.2500 #### [facility] [address] [place], [address] BUN/CRE Normal 10-20 [facility] Comment on above: Result Comment: Canc elled via OM: Order cancelled - Patient discharged Performed By: #### L 100.0100, L500.2500 #### [facility] [address] [place], [address] CA,Total Normal 8.5-10.1 [facility] Comment on above: Result Comment: Canc elled via OM: Order cancelled - Patient discharged Performed By: #### L 100.0100, L500.2500 #### [facility] [address] [place], [address] CL Normal 98-107 [facility] Comment on above: Result Comment: Canc elled via OM: Order cancelled - Patient discharged Performed By: #### L 100.0100, L500.2500 #### [facility] [address] [place], [address] CO2 Normal 21.0-32.0 [facility] Comment on above: Result Comment: Canc elled via OM: Order cancelled - Patient discharged Performed By: #### L 100.0100, L500.2500 #### [facility] [address] [place], [address] CREAT,SERUM Normal 0.70-1.30 [facility] Comment on above: Result Comment: Canc elled via OM: Order cancelled - Patient discharged Performed By: #### L 100.0100, L500.2500 #### [facility] [address] [place], [address] EST GFR Normal >60 [facility] Comment on above: Result Comment: Canc elled via OM: Order cancelled - Patient discharged Performed By: #### L 100.0100, L500.2500 #### [facility] [address] [place], [address] EST GFR - AA Normal >60 [facility] Comment on above: Result Comment: Canc elled via OM: Order cancelled - Patient discharged Performed By: #### L 100.0100, L500.2500 #### [facility] [address] [place], [address] GAP Normal 5-15 [facility] Comment on above: Result Comment: Canc elled via OM: Order cancelled - Patient discharged Performed By: #### L 100.0100, L500.2500 #### [facility] [address] [place], [address] GLU Normal 74-106 [facility] Comment on above: Result Comment: Canc elled via OM: Order cancelled - Patient discharged Performed By: #### L 100.0100, L500.2500 #### [facility] [address] [place], [address] Potassium Normal 3.5-5.1 [facility] Comment on above: Result Comment: Canc elled via OM: Order cancelled - Patient discharged Performed By: #### L 100.0100, L500.2500 #### [facility] [address] [place], [address] Basic Metabolic Profile (BMP) Normal 136-145 [facility] Comment on above: Result Comment: Canc elled via OM: Order cancelled - Patient discharged Performed By: #### L 100.0100, L500.2500 #### [facility] [address] [place], [address] CBC W/Diff, Automatedon 01-0 -2024 Absolute Neut Normal 2.0-7.7 [facility] Comment on above: Result Comment: Canc elled via OM: Order cancelled - Patient discharged Performed By: #### L 100.0100, L500.2500 #### [facility] [address] [place], [address] HCT Normal 40-54 [facility] Comment on above: Result Comment: Canc elled via OM: Order cancelled - Patient discharged Performed By: #### L 100.0100, L500.2500 #### [facility] [address] [place], [address] HGB Normal 13.0-16.5 [facility] Comment on above: Result Comment: Canc elled via OM: Order cancelled - Patient discharged Performed By: #### L 100.0100, L500.2500 #### [facility] [address] [place], [address] MCH Normal 27.0-32.0 [facility] Comment on above: Result Comment: Canc elled via OM: Order cancelled - Patient discharged Performed By: #### L 100.0100, L500.2500 #### [facility] [address] [place], [address] MCHC Normal 32-36 [facility] Comment on above: Result Comment: Canc elled via OM: Order cancelled - Patient discharged Performed By: #### L 100.0100, L500.2500 #### [facility] [address] [place], [address] MCV Normal 80-94 [facility] Comment on above: Result Comment: Canc elled via OM: Order cancelled - Patient discharged Performed By: #### L 100.0100, L500.2500 #### [facility] [address] [place], [address] NEUT% Normal 47-70 [facility] Comment on above: Result Comment: Canc elled via OM: Order cancelled - Patient discharged Performed By: #### L 100.0100, L500.2500 #### [facility] [address] [place], [address] PLT Normal 150-450 [facility] Comment on above: Result Comment: Canc elled via OM: Order cancelled - Patient discharged Performed By: #### L 100.0100, L500.2500 #### [facility] [address] [place], [address] RBC Normal 4.6-6.2 [facility] Comment on above: Result Comment: Canc elled via OM: Order cancelled - Patient discharged Performed By: #### L 100.0100, L500.2500 #### [facility] [address] [place], [address] RDW CV Normal 11.6-14.6 [facility] Comment on above: Result Comment: Canc elled via OM: Order cancelled - Patient discharged Performed By: #### L 100.0100, L500.2500 #### [facility] [address] [place], [address] RDW SD Normal 35.1-43.9 [facility] Comment on above: Result Comment: Canc elled via OM: Order cancelled - Patient discharged Performed By: #### L 100.0100, L500.2500 #### [facility] [address] [place], [address] WBC Normal 4.4-11.0 [facility] Comment on above: Result Comment: Canc elled via OM: Order cancelled - Patient discharged Performed By: #### L 100.0100, L500.2500 #### [facility] [address] [place], [address] LABORATORYOrdered By: SYSTEM SYSTEM on 03-23-2024 Calcium [Mass/Vol] 9.1 mg/dL Normal 8.4 - 10. 2 mg/dL AO ADM SS Chloride [Moles/Vol] 103 mmol/L Normal 98 - 10 7 mmol/L AO ADM SS CO2 [Moles/Vol] 30 mmol/L Normal 23 - 31 mmol/L AO ADM SS Creatinine [Mass/Vol] 0.85 mg/dL Normal 0.70 - 1.30 mg/dL AO ADM SS Comment on above: Interpretive Data: T esting performed on Admaxim Dimension EXL analyzer using a modified kinetic Arin technique. Electrolyte Balance 9.0 mEq/L Normal 4.0 - 15 .0 mEq/L AO ADM SS GFR/1.73 sq M.predicted among blacks MDRD (S/P/Bld) [Vol rate/Area] 104 ml/min/1.73sqm Invalid Interpretation Code AO Chemistry S Comment on above: Interpretive Data: GFR Population mean for , Non- Americans Ages 20-29 = 116 mL/min/1.73 sq.m. Ages 30-39 = 107 mL/min/1.73 sq.m. Ages 40-49 = 99 mL/min/1.73 sq.m. Ages 50-59 = 93 mL/min/1.73 sq.m. Ages 60-69 = 85 mL/min/1.73 sq.m. Ages 70+ = 75 mL/min/1.73 sq.m. Chronic Kidney Disease: Less than 60 mL/min/1.73 square meters End Stage Renal Disease: Less than 15 mL/min/1.73 square meters GFR/1.73 sq M.predicted among non-blacks MDRD (S/P/Bld) [Vol rate/Area] 86 ml/min/1.73sqm Invalid Interpretation Code AO Chemistry S Comment on above: Interpretive Data: GFR Population mean for , Non- Americans Ages 20-29 = 116 mL/min/1.73 sq.m. Ages 30-39 = 107 mL/min/1.73 sq.m. Ages 40-49 = 99 mL/min/1.73 sq.m. Ages 50-59 = 93 mL/min/1.73 sq.m. Ages 60-69 = 85 mL/min/1.73 sq.m. Ages 70+ = 75 mL/min/1.73 sq.m. Chronic Kidney Disease: Less than 60 mL/min/1.73 square meters End Stage Renal Disease: Less than 15 mL/min/1.73 square meters Glucose [Mass/Vol] 115 mg/dL High 83 - 110 mg/dL AO ADM SS Potassium [Moles/Vol] 4.1 mmol/L Normal 3.5 - 5.1 mmol/L AO ADM SS Sodium [Moles/Vol] 142 mmol/L Normal 136 - 145 mmol/L AO ADM SS Urea nitrogen [Mass/Vol] 11 mg/dL Normal 7 - 18 mg/dL AO ADM SS Urea nitrogen/Creatinine [Mass ratio] 13 ratio Normal 7 - 27 ratio AO ADM SS Basic Metabolic Profile (BMP )on 03-16-2024 BUN Normal 7-18 [facility] Comment on above: Result Comment: Canc elled via OM: Order cancelled - Patient discharged Performed By: #### L 100.0100, L500.2500 #### [facility] [address] [facility] [address] BUN/CRE Normal 10-20 [facility] Comment on above: Result Comment: Canc elled via OM: Order cancelled - Patient discharged Performed By: #### L 100.0100, L500.2500 #### [facility] [address] [place], [address] CA,Total Normal 8.5-10.1 [facility] Comment on above: Result Comment: Canc elled via OM: Order cancelled - Patient discharged Performed By: #### L 100.0100, L500.2500 #### [facility] [address] [place], [address] CL Normal 98-107 [facility] Comment on above: Result Comment: Canc elled via OM: Order cancelled - Patient discharged Performed By: #### L 100.0100, L500.2500 #### [facility] [address] [place], [address] CO2 Normal 21.0-32.0 [facility] Comment on above: Result Comment: Canc elled via OM: Order cancelled - Patient discharged Performed By: #### L 100.0100, L500.2500 #### [facility] [address] [place], [address] CREAT,SERUM Normal 0.70-1.30 [facility] Comment on above: Result Comment: Canc elled via OM: Order cancelled - Patient discharged Performed By: #### L 100.0100, L500.2500 #### [facility] [address] [place], [address] EST GFR Normal >60 [facility] Comment on above: Result Comment: Canc elled via OM: Order cancelled - Patient discharged Performed By: #### L 100.0100, L500.2500 #### [facility] [address] [place], [address] EST GFR - AA Normal >60 [facility] Comment on above: Result Comment: Canc elled via OM: Order cancelled - Patient discharged Performed By: #### L 100.0100, L500.2500 #### [facility] [address] [place], [address] GAP Normal 5-15 [facility] Comment on above: Result Comment: Canc elled via OM: Order cancelled - Patient discharged Performed By: #### L 100.0100, L500.2500 #### [facility] [address] [place], [address] GLU Normal 74-106 [facility] Comment on above: Result Comment: Canc elled via OM: Order cancelled - Patient discharged Performed By: #### L 100.0100, L500.2500 #### [facility] [address] [place], [address] Potassium Normal 3.5-5.1 [facility] Comment on above: Result Comment: Canc elled via OM: Order cancelled - Patient discharged Performed By: #### L 100.0100, L500.2500 #### [facility] [address] [place], [address] Basic Metabolic Profile (BMP) Normal 136-145 [facility] Comment on above: Result Comment: Canc elled via OM: Order cancelled - Patient discharged Performed By: #### L 100.0100, L500.2500 #### [facility] [address] [place], [address] CBC W/Diff, Automatedon 01-0 Absolute Neut Normal 2.0-7.7 [facility] Comment on above: Result Comment: Canc elled via OM: Order cancelled - Patient discharged Performed By: #### L 100.0100, L500.2500 #### [facility] [address] [place], [address] HCT Normal 40-54 [facility] Comment on above: Result Comment: Canc elled via OM: Order cancelled - Patient discharged Performed By: #### L 100.0100, L500.2500 #### [facility] [address] [place], [address] HGB Normal 13.0-16.5 [facility] Comment on above: Result Comment: Canc elled via OM: Order cancelled - Patient discharged Performed By: #### L 100.0100, L500.2500 #### [facility] [address] [place], [address] MCH Normal 27.0-32.0 [facility] Comment on above: Result Comment: Canc elled via OM: Order cancelled - Patient discharged Performed By: #### L 100.0100, L500.2500 #### [facility] [address] [place], [address] MCHC Normal 32-36 [facility] Comment on above: Result Comment: Canc elled via OM: Order cancelled - Patient discharged Performed By: #### L 100.0100, L500.2500 #### [facility] [address] [place], [address] MCV Normal 80-94 [facility] Comment on above: Result Comment: Canc elled via OM: Order cancelled - Patient discharged Performed By: #### L 100.0100, L500.2500 #### [facility] [address] [place], [address] NEUT% Normal 47-70 [facility] Comment on above: Result Comment: Canc elled via OM: Order cancelled - Patient discharged Performed By: #### L 100.0100, L500.2500 #### [facility] [address] [place], [address] PLT Normal 150-450 [facility] Comment on above: Result Comment: Canc elled via OM: Order cancelled - Patient discharged Performed By: #### L 100.0100, L500.2500 #### [facility] [address] [place], [address] RBC Normal 4.6-6.2 [facility] Comment on above: Result Comment: Canc elled via OM: Order cancelled - Patient discharged Performed By: #### L 100.0100, L500.2500 #### [facility] [address] [place], [address] RDW CV Normal 11.6-14.6 [facility] Comment on above: Result Comment: Canc elled via OM: Order cancelled - Patient discharged Performed By: #### L 100.0100, L500.2500 #### [facility] [address] [place], [address] RDW SD Normal 35.1-43.9 [facility] Comment on above: Result Comment: Canc elled via OM: Order cancelled - Patient discharged Performed By: #### L 100.0100, L500.2500 #### [facility] [address] [place], [address] WBC Normal 4.4-11.0 [facility] Comment on above: Result Comment: Canc elled via OM: Order cancelled - Patient discharged Performed By: #### L 100.0100, L500.2500 #### [facility] [address] [place], [address] Basic Metabolic Profile (BMP )on 03-12-2024 BUN/CRE 17.4 RATIO Normal 10-20 [facility] Comment on above: Performed By: #### L 100.0100, L500.2500 #### [facility] [address] [place], [address] CA,Total 8.9 mg/dL Normal 8.5-10.1 [facility] Comment on above: Performed By: #### L 100.0100, L500.2500 #### [facility] [address] [place], [address] Chloride [Moles/Vol] 105 mmol/L Normal 98-107 [facility] Comment on above: Performed By: #### L 100.0100, L500.2500 #### [facility] [address] [place], [address] CO2 [Moles/Vol] 28.0 mmol/L Normal 21.0-32.0 [facility] Comment on above: Performed By: #### L 100.0100, L500.2500 #### [facility] [address] [place], [address] Creatinine [Mass/Vol] 0.86 mg/dL Normal 0.70-1.30 [facility] Comment on above: Result Comment: The validity of the calculated GFR GFRAA in patients over 70 years has not been determined. Clinical correlation is essential. Performed By: #### L 100.0100, L500.2500 #### [facility] [address] [place], [address] ECRCL 60.76 ml/min Normal [facility] Comment on above: Performed By: #### L 100.0100, L500.2500 #### [facility] [address] [place], [address] EST GFR - AA 108 mL/min Normal >60 [facility] Comment on above: Result Comment: Afri can [place] GFR Calc Performed By: #### L 100.0100, L500.2500 #### [facility] [address] [place], [address] GAP 6 Normal 5-15 [facility] Comment on above: Performed By: #### L 100.0100, L500.2500 #### [facility] [address] [place], [address] GFR/1.73 sq M.predicted among non-blacks MDRD (S/P/Bld) [Vol rate/Area] 90 mL/min/{1.73_m2} Normal >60 [facility] Comment on above: Result Comment: Non- GFR Calc Performed By: #### L 100.0100, L500.2500 #### [facility] [address] [place], [address] Glucose [Mass/Vol] 98 mg/dL Normal 74-106 [facility] Comment on above: Performed By: #### L 100.0100, L500.2500 #### [facility] [address] [place], [address] Potassium [Moles/Vol] 3.8 mmol/L Normal 3.5-5.1 [facility] Comment on above: Performed By: #### L 100.0100, L500.2500 #### [facility] [address] [place], [address] Sodium [Moles/Vol] 140 mmol/L Normal 136-145 [facility] Comment on above: Performed By: #### L 100.0100, L500.2500 #### [facility] [address] [place], [address] Urea nitrogen [Mass/Vol] 15 mg/dL Normal 7-18 [facility] Comment on above: Performed By: #### L 100.0100, L500.2500 #### [facility] [address] [place], [address] Blood urea nitrogen (BUN)/cr eatinine ratioOrdered By: Jasmyne Birch on 03-12-2024 Urea nitrogen/Creatinine [Mass ratio] 17.4 mg/mg 10-20 [facility] Carbon dioxide measurementOr dered By: Jasmyne Birch on 03-12-2024 CO2 [Moles/Vol] 28.0 mmol/L 21.0-32.0 [facility] Chloride measurementOrdered By: Jasmyne Birch on 03-12-2024 Chloride [Moles/Vol] 105 mmol/L 98-107 [facility] Discharge Instructionon 02-14 Discharge Instruction [facility] Medical Records Department [address] [facility] [place] [address] Instructions for Home/Discharge Instructions 03/12/24 1305 MR#: [id number] Acct: [id number] Name: HIRAM DORAN Rep #: [id number] : 1940 83 From: Jasmyne Birch DO PCP: Dr. Malissa Rascon MD Status:ADM IN Discharge Instructions Diet Discharge Diet: - (Low-salt, low-fat) DC O2, CPAP, BIPAP needs Home O2 Discharge instructions: No Dressing / Incision Discharge Activity: May Shower and Use Walker Weight Bearing Status: Full weight bearing Keep extremity elevated above heart level: Legs Dressing / Incision Call your doctor if you observe: Fever of 101 or Higher, Inability to urinate, Shortness of breath, Dizziness, Fainting spells, Chest pain, Increased palpitations (irregular heartbeat) and - (STROKE symptoms: facial droop, slurred speech, inability to get words out, weakness on 1 side of the body and not the other, numbness on 1 side of the body and not the other, inability to maintain your balance sitting or standing, vertigo. ) Follow Up Care Please Follow Up With: Malissa Rascon MD When: within 10-14 days after discharge Test Results: Test results from this visit will be discussed in further detail at your follow-up appointment, if applicable. Pending Tests Upon Discharge: none Discharge Plan Admission Admit Date/Time: 03/01/24 19:25 Primary Reason for Your Visit: Debility Attending Provider: Parrish Shah Chi Primary Care Provider: Malissa Rascon Instructions Additional Instructions / Restrictions: 1. You should resume weighing yourself daily and take Bumex 1 mg If the weight increases by 3 lbs or more. Discharge Orders/Prescriptions Prescriptions: New cholecalciferol (vitamin D3) 25 mcg (1,000 unit) Tablet 25 mcg PO DAILYCM Qty: 90 0RF Continued rosuvastatin [Crestor] 5 mg tablet 5 mg PO QDAY metoprolol succinate 25 mg tablet extended release 24 hr 25 mg PO DAILY nitroglycerin 0.4 mg tablet, sublingual 0.4 mg sublingual Q5M PRN (Reason: CP) Rx Instructions: do not exceed 3 doses per episode dofetilide 250 mcg capsule 250 mcg PO Q12H Patient Comments: TAKE 1 CAPSULE BY MOUTH EVERY 12 HOURS midodrine 5 mg tablet 5 mg PO 1000,1400,1800 Patient Comments: Takes in the morning and evening and the afternoon dose is PRN if he needs it. Rx Instructions: HOLD if SBP >100 finasteride 5 mg tablet 5 mg PO DAILY Patient Comments: take 1 tablet by mouth once daily duloxetine 60 mg capsule,delayed release(DR/EC) See Rx Instructions PO DAILY Rx Instructions: 60 mg (2 caps) orally daily; Jardiance 25 mg tablet 12.5 mg PO DAILY levalbuterol HCl 0.63 mg/3 mL solution for nebulization 0.63 mg INHALATION TID Patient Comments: USE 1 VIAL 3 TIMES A DAY ICaps AREDS2 250 mg-200 unit -12.5 mg-1 mg capsule 1 cap PO DAILY lorazepam 0.5 mg Tablet 0.5 mg PO QHS Qty: 5 0RF Eliquis 5 mg Tablet 5 mg PO BID Qty: 0 0RF pantoprazole 40 mg tablet,delayed release (DR/EC) 40 mg PO DAILY Patient Comments: take 1 tablet by mouth twice a day take before meals Rx Instructions: Before meals ezetimibe 10 mg tablet 10 mg PO QHS guaifenesin [Mucinex] 1,200 mg tablet extended release 12hr 1,200 mg PO BID Stiolto Respimat 2.5-2.5 mcg/actuation mist 2 inh inhalation DAILY Lactobacillus acidoph-L.bulgar [Floranex] 100 million cell granules in packet 1 packet PO TIDCM tamsulosin 0.4 mg Capsule 0.8 mg PO DINNER methocarbamol 750 mg tablet 750 mg PO BID Rx Instructions: for neck pain sucralfate [Carafate] 100 mg/mL suspension 1 g PO BID mirtazapine 15 mg Tablet 7.5 mg PO QHS Qty: 0 0RF sennosides-docusate sodium [Senna-S] 8.6-50 mg tablet 2 tab-cap PO BID polyethylene glycol 3350 17 gram/dose powder 17 g PO DAILY lidocaine 4 % adhesive patch,medicated 2 patch topical DAILY Rx Instructions: may leave on for up to 12 hrs budesonide 0.5 mg/2 mL Suspension For Nebulization 0.5 mg inhalation DAILY bumetanide 0.5 mg Tablet 1 mg PO MOWEFR PRN (Reason: EDEMA) Qty: 1 0RF oxycodone 5 mg tablet 5 mg PO Q8H PRN (Reason: pain) 7 Days Qty: 10 0RF Rx Instructions: Take as needed for up to 3 days (ends 03/03/24). Do not give with SBP < 90. Discontinued mirtazapine 15 mg tablet 15 mg PO QHS Qty: 30 0RF acetaminophen 500 mg tablet 1,000 mg PO Q8 econazole 1 % cream 1 applic topical DAILY PRN (Reason: fungal cream) ketoconazole 2 % cream 1 applic topical DAILY PRN (Reason: fungal cream) cholecalciferol (vitamin D3) 25 mcg (1,000 unit) tablet 5,000 unit PO DAILY Referrals / Follow Up: Aleksandra Izquierdo MD [Non-Staff] - (03/11 called office twice, no answer. Please call to schedule appt) Malissa Rascon MD [Primary Care Provider] - (frances will make appt ) Disposition Disposition (needs filled in before D/C Order can be placed): Home, Self Care 02/14 (more content not included)... Normal [facility] Estimated glomerular filtrat ion rate (GFR) AmericanOrdered By: Jasmyne Queta on 03-12-2024 Estimated GFR (MDRD) Amer 108 mL/min >60 [facility] Comment on above: GFR Calc Estimation of creatinine sindy aranceOrdered By: Jasmyne Birch on 03-12-2024 Estimated Creatinine Clearance Calc 60.76 ml/min [facility] Glomerular filtration rate ( GFR) estimationOrdered By: Jasmyne Birch on 03-12-2024 Estimated GFR (MDRD) Non-Af Amer 90 mL/min >60 [facility] Comment on above: Non- GFR Calc Glucose measurementOrdered B y: Jasmyne Queta on 03-12-2024 Glucose [Mass/Vol] 98 mg/dL 74-106 [facility] HH, Hemoglobin AND Hematocri ton 03-12-2024 Hematocrit (Bld) [Volume fraction] 30.2 % Low 40-54 [facility] Comment on above: Performed By: #### L 100.0100, L500.2500 #### [facility] [address] [place], [address] Hemoglobin (Bld) [Mass/Vol] 9.6 g/dL Low 13.0-16.5 [facility] Comment on above: Performed By: #### L 100.0100, L500.2500 #### [facility] [address] [place], [address] Hematocrit Auto (Bld) [Volum e fraction]Ordered By: Jasmyne Birch on 03-12-2024 Hematocrit (Bld) [Volume fraction] 30.2 % Low 4054 [facility] Hemoglobin measurementOrdere d By: Jasmyne Birch on 03-12-2024 Hemoglobin (Bld) [Mass/Vol] 9.6 g/dL Low 13.0-16.5 [facility] Magnesiumon 03-12-2024 Magnesium [Mass/Vol] 1.9 mg/dL Normal 1.6-2.6 [facility] Comment on above: Performed By: #### L 100.0100, L500.2500 #### [facility] [address] [place], [address] Magnesium measurementOrdered By: Jasmyne Queta on 03-12-2024 Magnesium [Mass/Vol] 1.9 mg/dL 1.6-2.6 [facility] Potassium measurementOrdered By: Jasmyne Birch on 03-12-2024 Potassium [Moles/Vol] 3.8 mmol/L 3.5-5.1 [facility] Serum anion gap measurementO rdered By: Jasmyne Birch on 03-12-2024 Anion gap [Moles/Vol] 6 mmol/L 5-15 [facility] Serum or plasma calcium misbah urement (mass/volume)Ordered By: Jasmyne Birch on 03-12-2024 Calcium [Mass/Vol] 8.9 mg/dL 8.5-10.1 [facility] Serum or plasma creatinine m easurement (mass/volume)Ordered By: Jasmyne Birch on 03-12-2024 Creatinine [Mass/Vol] 0.86 mg/dL 0.70-1.30 [facility] Comment on above: The validity of the calculated GFR & GFRAA in patients over 70 years has not been determined. Clinical correlation is essential. Serum or plasma urea nitroge n measurement (mass/volume)Ordered By: Jasmyne Birch on 03-12-2024 Urea nitrogen [Mass/Vol] 15 mg/dL 7-18 [facility] Sodium levelOrdered By: Jasmyne Birch on 03-12-2024 Sodium [Moles/Vol] 140 mmol/L 136-145 [facility] Absolute neutrophil countOrd ered By: Parrish Shah on 03-09-2024 Neutrophils (Bld) [#/Vol] 7.0 10*3/uL 2.0-7.7 [facility] Basic Metabolic Profile (BMP )on 03-09-2024 BUN/CRE 21.7 RATIO High 10-20 [facility] Comment on above: Performed By: #### L 500.2500, L100.0100 #### [facility] [address] [place], [address] CA,Total 8.3 mg/dL Low 8.5-10.1 [facility] Comment on above: Performed By: #### L 500.2500, L100.0100 #### [facility] [address] [place], [address] Chloride [Moles/Vol] 109 mmol/L High 98-107 [facility] Comment on above: Performed By: #### L 500.2500, L100.0100 #### [facility] [address] [place], [address] CO2 [Moles/Vol] 25.0 mmol/L Normal 21.0-32.0 [facility] Comment on above: Performed By: #### L 500.2500, L100.0100 #### [facility] [address] [place], [address] Creatinine [Mass/Vol] 0.69 mg/dL Low 0.70-1.30 [facility] Comment on above: Result Comment: The validity of the calculated GFR GFRAA in patients over 70 years has not been determined. Clinical correlation is essential. Performed By: #### L 500.2500, L100.0100 #### [facility] [address] [place], [address] ECRCL 65.31 ml/min Normal [facility] Comment on above: Performed By: #### L 500.2500, L100.0100 #### [facility] [address] [place], [address] EST GFR - AA 140 mL/min Normal >60 [facility] Comment on above: Result Comment: Afri can Ukrainian GFR Calc Performed By: #### L 500.2500, L100.0100 #### [facility] [address] [place], [address] GAP 6 Normal 5-15 [facility] Comment on above: Performed By: #### L 500.2500, L100.0100 #### [facility] [address] [place], [address] GFR/1.73 sq M.predicted among non-blacks MDRD (S/P/Bld) [Vol rate/Area] 116 mL/min/{1.73_m2} Normal >60 [facility] Comment on above: Result Comment: Non- GFR Calc Performed By: #### L 500.2500, L100.0100 #### [facility] [address] [place], [address] Glucose [Mass/Vol] 127 mg/dL High 74-106 [facility] Comment on above: Result Comment: Fast ing Glucose result greater than or equal to 126 mg/dL suggests DIABETES MELLITUS per A.D.A. criteria. Performed By: #### L 500.2500, L100.0100 #### [facility] [address] [place], [address] Potassium [Moles/Vol] 3.3 mmol/L Low 3.5-5.1 [facility] Comment on above: Performed By: #### L 500.2500, L100.0100 #### [facility] [address] [place], [address] Sodium [Moles/Vol] 140 mmol/L Normal 136-145 [facility] Comment on above: Performed By: #### L 500.2500, L100.0100 #### [facility] [address] [place], [address] Urea nitrogen [Mass/Vol] 15 mg/dL Normal 7-18 [facility] Comment on above: Performed By: #### L 500.2500, L100.0100 #### [facility] [address] [place], [address] Basophil percentageOrdered B y: Parrish Shah on 03-09-2024 Basophils/100 WBC (Bld) 1.0 % 0-1 [facility] CBC W/Diff, Automatedon 12-2 5-2023 Absolute Lymph 1.47 X10 3/uL Normal 0.83-4.51 [facility] Comment on above: Performed By: #### L 500.2500, L100.0100 #### [facility] [address] [place], [address] Absolute Neut 7.0 X10 3/uL Normal 2.0-7.7 [facility] Comment on above: Performed By: #### L 500.2500, L100.0100 #### [facility] [address] [place], [address] Basophils/100 WBC (Bld) 1.0 % Normal 0-1 [facility] Comment on above: Performed By: #### L 500.2500, L100.0100 #### [facility] [address] [place], [address] Eosinophils/100 WBC (Bld) 8.2 % High 0-5 [facility] Comment on above: Performed By: #### L 500.2500, L100.0100 #### [facility] [address] [place], [address] Erythrocyte distribution width (RBC) [Ratio] 14.8 % High 11.6-14.6 [facility] Comment on above: Performed By: #### L 500.2500, L100.0100 #### [facility] [address] [place], [address] Hematocrit (Bld) [Volume fraction] 28.4 % Low 40-54 [facility] Comment on above: Performed By: #### L 500.2500, L100.0100 #### [facility] [address] [place], [address] Hemoglobin (Bld) [Mass/Vol] 8.7 g/dL Low 13.0-16.5 [facility] Comment on above: Performed By: #### L 500.2500, L100.0100 #### [facility] [address] [place], [address] IG% 1.700 High 0.0-0.9 [facility] Comment on above: Result Comment: IG% - Immature Granulocytes (promyelocytes, myelocytes and metamyelocytes) > 1% indicates that a LEFT SHIFT is Present. Performed By: #### L 500.2500, L100.0100 #### [facility] [address] [place], [address] Lymphocytes/100 WBC (Bld) 14.1 % Low 19-41 [facility] Comment on above: Performed By: #### L 500.2500, L100.0100 #### [facility] [address] [place], [address] MCH (RBC) [Entitic mass] 28.6 pg Normal 27.0-32.0 [facility] Comment on above: Performed By: #### L 500.2500, L100.0100 #### [facility] [address] [place], [address] MCHC (RBC) [Mass/Vol] 30.6 g/dL Low 32-36 [facility] Comment on above: Performed By: #### L 500.2500, L100.0100 #### [facility] [address] [place], [address] MCV (RBC) [Entitic vol] 93.4 fL Normal 80-94 [facility] Comment on above: Performed By: #### L 500.2500, L100.0100 #### [facility] [address] [place], [address] Monocytes/100 WBC (Bld) 8.1 % Normal 0-10 [facility] Comment on above: Performed By: #### L 500.2500, L100.0100 #### [facility] [address] [place], [address] Neutrophils/100 WBC (Bld) 66.9 % Normal 47-70 [facility] Comment on above: Performed By: #### L 500.2500, L100.0100 #### [facility] [address] [place], [address] Nucleated RBC (Bld) [#/Vol] 0 10*3/uL Normal 0-5 [facility] Comment on above: Performed By: #### L 500.2500, L100.0100 #### [facility] [address] [place], [address] Platelet mean volume (Bld) [Entitic vol] 9.3 fL Normal 6.2-12.0 [facility] Comment on above: Performed By: #### L 500.2500, L100.0100 #### [facility] [address] [place], [address] Platelets (Bld) [#/Vol] 359 10*3/uL Normal 150-450 [facility] Comment on above: Performed By: #### L 500.2500, L100.0100 #### [facility] [address] [place], [address] RBC (Bld) [#/Vol] 3.04 10*6/uL Low 4.6-6.2 [facility] Comment on above: Performed By: #### L 500.2500, L100.0100 #### [facility] [address] [place], [address] RDW SD 50.4 fl High 35.1-43.9 [facility] Comment on above: Performed By: #### L 500.2500, L100.0100 #### [facility] [address] [place], [address] WBC (Bld) [#/Vol] 10.5 10*3/uL Normal 4.4-11.0 [facility] Comment on above: Performed By: #### L 500.2500, L100.0100 #### [facility] [place], [address] Eosinophil percentageOrdered By: [facility] on 03-09-2024 Eosinophils/100 WBC (Bld) 8.2 % High 0-5 [facility] Erythrocyte distribution wid th ratioOrdered By: [facility] on 03-09-2024 Erythrocyte distribution width (RBC) [Ratio] 14.8 % High 11.6-14.6 [facility] Erythrocyte distribution wid th standard deviationOrdered By: [facility] on 03-09-2024 Erythrocyte distribution width (RBC) [Entitic vol] 50.4 fL High 35.1-43.9 [facility] Immature granulocytes/100 WB C Auto (Bld)Ordered By: [facility] on 03-09-2024 Immature granulocytes/100 WBC (Bld) 1.700 % High 0.0-0.9 [facility] Comment on above: IG% - Immature Granu locytes (promyelocytes, myelocytes and metamyelocytes) > 1% indicates that a LEFT SHIFT is Present. Lymphocytes Auto (Unsp spec) [#/Vol]Ordered By: [facility] on 03-09-2024 Lymphocytes (Bld) [#/Vol] 1.47 10*3/uL 0.83-4.51 [facility] Lymphocytes/100 WBC Auto (Un sp spec)Ordered By: [facility] on 03-09-2024 Lymphocytes/100 WBC (Bld) 14.1 % Low 19-41 [facility] MCV (mean corpuscular volume ) determinationOrdered By: [facility] on 03-09-2024 MCV (RBC) [Entitic vol] 93.4 fL 80-94 [facility] Mean corpuscular hemoglobin (MCH) determinationOrdered By: [facility] on 03-09-2024 MCH (RBC) [Entitic mass] 28.6 pg 27.0-32.0 [facility] Mean corpuscular hemoglobin concentration (MCHC) determinationOrdered By: [facility] on 03-09-2024 MCHC (RBC) [Mass/Vol] 30.6 g/dL Low 32-36 [facility] Mean platelet volume determi nationOrdered By: Parrish Shah on 03-09-2024 Platelet mean volume (Bld) [Entitic vol] 9.3 fL 6.2-12.0 [facility] Monocyte percentageOrdered B y: Parrish Shah on 03-09-2024 Monocytes/100 WBC (Bld) 8.1 % 0-10 [facility] Neutrophil percentageOrdered By: Parrish Shah on 03-09-2024 Neutrophils/100 WBC (Bld) 66.9 % 47-70 [facility] Nucleated red blood cell per centageOrdered By: Parrish Shah on 03-09-2024 Nucleated RBC/100 WBC (Bld) [Ratio] 0 % 0-5 [facility] Platelet countOrdered By: Emeterio Shah on 03-09-2024 Platelets (Bld) [#/Vol] 359 10*3/uL 150-450 [facility] RBC Auto (Bld) [#/Vol]Ordere d By: Parrish Shah on 03-09-2024 RBC (Bld) [#/Vol] 3.04 10*6/uL Low 4.6-6.2 [facility] White blood cell (WBC) count Ordered By: Parrish Shah on 03-09-2024 WBC (Bld) [#/Vol] 10.5 10*3/uL 4.4-11.0 [facility] Abdomen/Pelvis WITH Contrast on 03-07-2024 Abdomen/Pelvis WITH Contrast [facility] Imaging Services [address] [place] [address] [id number] Abdomen/Pelvis WITH Contrast MR#: [id number] Acct: [id number] Name: HIRAM DORAN Rep #: [id number] : 1940 M 83 From: Deanne Del Rio MD PCP: Dr. Malissa Rascon MD Status: REG CLI Study: Abdomen/Pelvis WITH Contrast Date of Exam: Exam# [id number] Ordering Dr: Parrish Shah MD [id number] STUDY: CT ABDOMEN AND PELVIS WITH CONTRAST - URINARY TRACT REASON FOR EXAM: Male, 83 years old. PAIN S/P SURGERY ( CHOLECYSTECTOMY) RADIATION DOSAGE (If Supplied By Facility): CTDIvol = ( 14.31 ) mGy, DLP = ( 895.20 ) mGycm TECHNIQUE: Oral and amp; IV Gastrografin and amp; 100mL Isovue-370 was administered. Transaxial images were obtained from the dome of the diaphragm to the symphysis pubis subsequent to intravenous contrast administration. In the arterial, nephrographic and excretory phases. Multiplanar coronal and sagittal images were reformatted. The protocol utilizes one or more of the following dose reduction techniques: automated exposure control, adjustment of mA and/or kV according to patient size,and/or use of iterative reconstruction technique. COMPARISON: December 12, [address] of the chest dated March 02, 2024 FINDINGS: There are stable emphysematous changes within the visualized lung bases. There are coronary artery calcifications. There is periportal edema, likely secondary to recent intravenous rehydration. There is evidence of prior cholecystectomy. There is mild stranding within the jordan hepatis and gallbladder fossa, significantly decreased since the prior CT of the abdomen and pelvis. Normal spleen. Normal pancreas. Normal bilateral adrenal glands. Normal visualized stomach. Normal small intestine. There are multiple colonic diverticula consistent with diverticulosis. There is mild circumferential wall thickening of the colon. The colon is incompletely distended. There is non-visualization of the appendix. There is diffuse atherosclerotic calcification of the abdominal aorta, without a demonstrated aneurysm. No retroperitoneal adenopathy. Normal right kidney. Normal left kidney. Normal urinary bladder. There is a small umbilical hernia containing fat. There are diffuse degenerative changes of the visualized lumbar spine. CT/Abdomen/Pelvis WITH Contrast IMPRESSION: Mild circumferential wall thickening of the colon, may be secondary to its incompletely distended state, cannot exclude mild colitis. Stranding within the jordan hepatis and to less extent gallbladder fossa, possibly postsurgical. Colonic diverticulosis. Electronically Signed: Deanne Del Rio MD at 13:50 EST , CC: Dr. Malissa Rascon MD; Dr. Parrish Shah MD Public Health Officer: Signed Normal [facility] Basic Metabolic Profile (BMP )on 03-07-2024 BUN/CRE 22.7 RATIO High 10-20 [facility] Comment on above: Performed By: #### L 500.2500, L100.0100 #### [facility] [address] [place], [address] CA,Total 8.7 mg/dL Normal 8.5-10.1 [facility] Comment on above: Performed By: #### L 500.2500, L100.0100 #### [facility] [address] [place], [address] Chloride [Moles/Vol] 108 mmol/L High 98-107 [facility] Comment on above: Performed By: #### L 500.2500, L100.0100 #### [facility] [address] [place], [address] CO2 [Moles/Vol] 28.0 mmol/L Normal 21.0-32.0 [facility] Comment on above: Performed By: #### L 500.2500, L100.0100 #### [facility] [address] [place], [address] Creatinine [Mass/Vol] 0.66 mg/dL Low 0.70-1.30 [facility] Comment on above: Result Comment: The validity of the calculated GFR GFRAA in patients over 70 years has not been determined. Clinical correlation is essential. Performed By: #### L 500.2500, L100.0100 #### [facility] [address] [place], [address] ECRCL 65.31 ml/min Normal [facility] Comment on above: Performed By: #### L 500.2500, L100.0100 #### [facility] [address] [place], [address] EST GFR - AA 147 mL/min Normal >60 [facility] Comment on above: Result Comment: Afri can Ukrainian GFR Calc Performed By: #### L 500.2500, L100.0100 #### [facility] [address] [place], [address] GAP 4 Low 5-15 [facility] Comment on above: Performed By: #### L 500.2500, L100.0100 #### [facility] [address] [place], [address] GFR/1.73 sq M.predicted among non-blacks MDRD (S/P/Bld) [Vol rate/Area] 122 mL/min/{1.73_m2} Normal >60 [facility] Comment on above: Result Comment: Non- GFR Calc Performed By: #### L 500.2500, L100.0100 #### [facility] [address] [place], [address] Glucose [Mass/Vol] 116 mg/dL High 74-106 [facility] Comment on above: Result Comment: Fast ing Glucose result from 100 to 125 mg/dL suggests IMPAIRED HOMEOSTASIS per A.D.A. criteria. Performed By: #### L 500.2500, L100.0100 #### [facility] [address] [place], [address] Potassium [Moles/Vol] 3.5 mmol/L Normal 3.5-5.1 [facility] Comment on above: Performed By: #### L 500.2500, L100.0100 #### [facility] [address] [place], [address] Sodium [Moles/Vol] 140 mmol/L Normal 136-145 [facility] Comment on above: Performed By: #### L 500.2500, L100.0100 #### [facility] [address] [place], [address] Urea nitrogen [Mass/Vol] 15 mg/dL Normal 7-18 [facility] Comment on above: Performed By: #### L 500.2500, L100.0100 #### [facility] [address] [place], [address] CBC W/Diff, Automatedon 12-04 18-2023 Absolute Lymph 1.53 X10 3/uL Normal 0.83-4.51 [facility] Comment on above: Performed By: #### L 100.0100, L500.2500 #### [facility] [address] [place], [address] Absolute Neut 6.5 X10 3/uL Normal 2.0-7.7 [facility] Comment on above: Performed By: #### L 100.0100, L500.2500 #### [facility] [address] [place], [address] Basophils/100 WBC (Bld) 1.0 % Normal 0-1 [facility] Comment on above: Performed By: #### L 100.0100, L500.2500 #### [facility] [address] [place], [address] Eosinophils/100 WBC (Bld) 10.1 % High 0-5 [facility] Comment on above: Performed By: #### L 100.0100, L500.2500 #### [facility] [address] [place], [address] Erythrocyte distribution width (RBC) [Ratio] 14.8 % High 11.6-14.6 [facility] Comment on above: Performed By: #### L 100.0100, L500.2500 #### [facility] [address] [place], [address] Hematocrit (Bld) [Volume fraction] 29.1 % Low 40-54 [facility] Comment on above: Performed By: #### L 100.0100, L500.2500 #### [facility] [address] [place], [address] Hemoglobin (Bld) [Mass/Vol] 9.1 g/dL Low 13.0-16.5 [facility] Comment on above: Performed By: #### L 100.0100, L500.2500 #### [facility] [address] [place], [address] IG% 1.600 High 0.0-0.9 [facility] Comment on above: Result Comment: IG% - Immature Granulocytes (promyelocytes, myelocytes and metamyelocytes) > 1% indicates that a LEFT SHIFT is Present. Performed By: #### L 100.0100, L500.2500 #### [facility] [address] [place], [address] Lymphocytes/100 WBC (Bld) 15.0 % Low 19-41 [facility] Comment on above: Performed By: #### L 100.0100, L500.2500 #### [facility] [address] [place], [address] MCH (RBC) [Entitic mass] 29.0 pg Normal 27.0-32.0 [facility] Comment on above: Performed By: #### L 100.0100, L500.2500 #### [facility] [address] [place], [address] MCHC (RBC) [Mass/Vol] 31.3 g/dL Low 32-36 [facility] Comment on above: Performed By: #### L 100.0100, L500.2500 #### [facility] [address] [place], [address] MCV (RBC) [Entitic vol] 92.7 fL Normal 80-94 [facility] Comment on above: Performed By: #### L 100.0100, L500.2500 #### [facility] [address] [place], [address] Monocytes/100 WBC (Bld) 8.7 % Normal 0-10 [facility] Comment on above: Performed By: #### L 100.0100, L500.2500 #### [facility] [address] [place], [address] Neutrophils/100 WBC (Bld) 63.6 % Normal 47-70 [facility] Comment on above: Performed By: #### L 100.0100, L500.2500 #### [facility] [address] [place], [address] Nucleated RBC (Bld) [#/Vol] 0 10*3/uL Normal 0-5 [facility] Comment on above: Performed By: #### L 100.0100, L500.2500 #### [facility] [address] [place], [address] Platelet mean volume (Bld) [Entitic vol] 8.9 fL Normal 6.2-12.0 [facility] Comment on above: Performed By: #### L 100.0100, L500.2500 #### [facility] [address] [place], [address] Platelets (Bld) [#/Vol] 368 10*3/uL Normal 150-450 [facility] Comment on above: Performed By: #### L 100.0100, L500.2500 #### [facility] [address] [place], [address] RBC (Bld) [#/Vol] 3.14 10*6/uL Low 4.6-6.2 [facility] Comment on above: Performed By: #### L 100.0100, L500.2500 #### [facility] [address] [place], [address] RDW SD 49.8 fl High 35.1-43.9 [facility] Comment on above: Performed By: #### L 100.0100, L500.2500 #### [facility] [address] [place], [address] WBC (Bld) [#/Vol] 10.2 10*3/uL Normal 4.4-11.0 [facility] Comment on above: Performed By: #### L 100.0100, L500.2500 #### [facility] [address] [place], [address] COVID 19 AG RAPID (PANCHO Escobar)on 03-07-2024 SARS-CoV-2 (COVID-19) RNA JAYDA+probe Ql (Unsp spec) SARS-CoV-2 (COVID 19) Negative RAPID METHOD BinaxNow COVID19 Ag Card Normal [facility] Comment on above: Performed By: #### M 100.505 ####[facility] [address] [place], [address] SARS-CoV-2 (COVID-19) Ag IA. rapid Ql (Resp)Ordered By: Parrish Shah on 03-07-2024 SARS-CoV-2 Antigen (Rapid) [facility] Basic Metabolic Profile (BMP )on 03-02-2024 BUN/CRE 16.2 RATIO Normal 10-20 [facility] Comment on above: Performed By: #### L 500.2500, L100.0100 #### [facility] [address] [place], [address] CA,Total 8.9 mg/dL Normal 8.5-10.1 [facility] Comment on above: Performed By: #### L 500.2500, L100.0100 #### [facility] [address] [place], [address] Chloride [Moles/Vol] 105 mmol/L Normal 98-107 [facility] Comment on above: Performed By: #### L 500.2500, L100.0100 #### [facility] [address] [place], [address] CO2 [Moles/Vol] 28.0 mmol/L Normal 21.0-32.0 [facility] Comment on above: Performed By: #### L 500.2500, L100.0100 #### [facility] [address] [place], [address] Creatinine [Mass/Vol] 0.74 mg/dL Normal 0.70-1.30 [facility] Comment on above: Result Comment: The validity of the calculated GFR GFRAA in patients over 70 years has not been determined. Clinical correlation is essential. Performed By: #### L 500.2500, L100.0100 #### [facility] [address] [place], [address] ECRCL 65.31 ml/min Normal [facility] Comment on above: Performed By: #### L 500.2500, L100.0100 #### [facility] [address] [place], [address] EST GFR - AA 129 mL/min Normal >60 [facility] Comment on above: Result Comment: Afri can [place] GFR Calc Performed By: #### L 500.2500, L100.0100 #### [facility] [address] [place], [address] GAP 5 Normal 5-15 [facility] Comment on above: Performed By: #### L 500.2500, L100.0100 #### [facility] [address] [place], [address] GFR/1.73 sq M.predicted among non-blacks MDRD (S/P/Bld) [Vol rate/Area] 107 mL/min/{1.73_m2} Normal >60 [facility] Comment on above: Result Comment: Non- GFR Calc Performed By: #### L 500.2500, L100.0100 #### [facility] [address] [place], [address] Glucose [Mass/Vol] 113 mg/dL High 74-106 [facility] Comment on above: Result Comment: Fast ing Glucose result from 100 to 125 mg/dL suggests IMPAIRED HOMEOSTASIS per A.D.A. criteria. Performed By: #### L 500.2500, L100.0100 #### [facility] [address] [place], [address] Potassium [Moles/Vol] 3.7 mmol/L Normal 3.5-5.1 [facility] Comment on above: Performed By: #### L 500.2500, L100.0100 #### [facility] [address] [place], [address] Sodium [Moles/Vol] 137 mmol/L Normal 136-145 [facility] Comment on above: Performed By: #### L 500.2500, L100.0100 #### [facility] [address] [place], [address] Urea nitrogen [Mass/Vol] 12 mg/dL Normal 7-18 [facility] Comment on above: Performed By: #### L 500.2500, L100.0100 #### [facility] [address] [place], [address] CBC W/Diff, Automatedon 12- Absolute Lymph 1.27 X10 3/uL Normal 0.83-4.51 [facility] Comment on above: Performed By: #### L 500.2500, L100.0100 #### [facility] [address] [place], [address] Absolute Neut 6.7 X10 3/uL Normal 2.0-7.7 [facility] Comment on above: Performed By: #### L 500.2500, L100.0100 #### [facility] [address] [place], [address] Basophils/100 WBC (Bld) 0.9 % Normal 0-1 [facility] Comment on above: Performed By: #### L 500.2500, L100.0100 #### [facility] [address] [place], [address] Eosinophils/100 WBC (Bld) 7.0 % High 0-5 [facility] Comment on above: Performed By: #### L 500.2500, L100.0100 #### [facility] [address] [place], [address] Erythrocyte distribution width (RBC) [Ratio] 14.5 % Normal 11.6-14.6 [facility] Comment on above: Performed By: #### L 500.2500, L100.0100 #### [facility] [address] [place], [address] Hematocrit (Bld) [Volume fraction] 30.4 % Low 40-54 [facility] Comment on above: Performed By: #### L 500.2500, L100.0100 #### [facility] [address] [place], [address] Hemoglobin (Bld) [Mass/Vol] 9.5 g/dL Low 13.0-16.5 [facility] Comment on above: Performed By: #### L 500.2500, L100.0100 #### [facility] [address] [place], [address] IG% 1.500 High 0.0-0.9 [facility] Comment on above: Result Comment: IG% - Immature Granulocytes (promyelocytes, myelocytes and metamyelocytes) > 1% indicates that a LEFT SHIFT is Present. Performed By: #### L 500.2500, L100.0100 #### [facility] [address] [place], [address] Lymphocytes/100 WBC (Bld) 12.8 % Low 19-41 [facility] Comment on above: Performed By: #### L 500.2500, L100.0100 #### [facility] [address] [place], [address] MCH (RBC) [Entitic mass] 29.1 pg Normal 27.0-32.0 [facility] Comment on above: Performed By: #### L 500.2500, L100.0100 #### [facility] [address] [place], [address] MCHC (RBC) [Mass/Vol] 31.3 g/dL Low 32-36 [facility] Comment on above: Performed By: #### L 500.2500, L100.0100 #### [facility] [address] [place], [address] MCV (RBC) [Entitic vol] 93.0 fL Normal 80-94 [facility] Comment on above: Performed By: #### L 500.2500, L100.0100 #### [facility] [address] [place], [address] Monocytes/100 WBC (Bld) 10.3 % High 0-10 [facility] Comment on above: Performed By: #### L 500.2500, L100.0100 #### [facility] [address] [place], [address] Neutrophils/100 WBC (Bld) 67.5 % Normal 47-70 [facility] Comment on above: Performed By: #### L 500.2500, L100.0100 #### [facility] [address] [place], [address] Nucleated RBC (Bld) [#/Vol] 0 10*3/uL Normal 0-5 [facility] Comment on above: Performed By: #### L 500.2500, L100.0100 #### [facility] [address] [place], [address] Platelet mean volume (Bld) [Entitic vol] 9.3 fL Normal 6.2-12.0 [facility] Comment on above: Performed By: #### L 500.2500, L100.0100 #### [facility] [address] [place], [address] Platelets (Bld) [#/Vol] 315 10*3/uL Normal 150-450 [facility] Comment on above: Performed By: #### L 500.2500, L100.0100 #### [facility] [address] [place], [address] RBC (Bld) [#/Vol] 3.27 10*6/uL Low 4.6-6.2 [facility] Comment on above: Performed By: #### L 500.2500, L100.0100 #### [facility] [address] [place], [address] RDW SD 49.5 fl High 35.1-43.9 [facility] Comment on above: Performed By: #### L 500.2500, L100.0100 #### [facility] [address] [place], [address] WBC (Bld) [#/Vol] 9.9 10*3/uL Normal 4.4-11.0 [facility] Comment on above: Performed By: #### L 500.2500, L100.0100 #### [facility] [address] [place], [address] CTA Chest W/WO Contraston CTA Chest W/WO Contrast [facility] [address] [place] [address] CTA Chest W/WO Contrast MR#: [id number] Acct: [id number] Name: HIRAM DORAN Rep #: [id number] : 1940 M 83 From: Chris de dios MD PCP: Dr. Malissa Rascon MD Status: REG CLI Study: CTA Chest W/WO Contrast Date of Exam: 03/02/24 Exam# [id number] Ordering Dr: Parrish Shah MD [id number] STUDY: CTA CHEST REASON FOR EXAM: Male, 83 years old. HEMOPTYSIS RADIATION DOSAGE (If Supplied By Facility): CTDIvol = ( 11.26 ) mGy, DLP = ( 429.33 ) mGycm TECHNIQUE: The examination was performed with the intravenous administration of IV 75mL Isovue-370. Post-processing of the angiographic images was performed, with multiplanar reformation and 3D reconstruction. Individualized dose optimization techniques were used for this CT. COMPARISON: Comparison is made with prior study dated November 11, 2023. FINDINGS: Normal enhancement of the main pulmonary artery and right and left pulmonary arteries. Normal enhancement of the bilateral peripheral pulmonary arteries. There is no demonstrated pulmonary embolism. There is atherosclerotic calcification of the aortic arch with tortuosity. There is no demonstrated aortic dissection. There are calcifications of the coronary arteries. Normal mediastinum. Normal hilar regions. Normal visualized trachea and bronchi. The lungs are well expanded. The previously seen oblong complex collection in the left major fissure as decreased further in size. It presently measures 2.3 cm x 1.1 cm. It has become more uniform at this time. Stable scarring at the lung bases. There is a new 2.1 cm x 1 cm spiculated nodular density in the lateral aspect of the lingular segment of the left upper lobe as seen on axial image #128 and coronal image #190. A repeat CT scan in 3 months is recommended. Normal chest wall structures. There are degenerative changes of thoracic spine. The patient is status post cholecystectomy. CT/CTA Chest W/WO Contrast IMPRESSION: Further decrease in size of the oval soft tissue density in the left major fissure. It presently measures 2.3 cm x 1.1 cm. It is more uniform in appearance at this time. Stable scarring at the lung bases with bronchiectasis. New 2.1 cm x 1 cm spiculated nodular density lateral aspect of the lingular segment of the left upper lobe as described. Repeat CT scan recommended in 3 months. Electronically Signed: Chris Ventura MD at 15:07 EST , CC: Dr. Malissa Rascon MD; Dr. Parrish Shah MD Public Health Officer: Signed Normal [facility] Basic metabolic 2000 panelon 03-01-2024 Anion gap [Moles/Vol] 10 mmol/L Normal 8-15 [facility] Comment on above: Order Comment: Specestrella patel Type: BLOOD SPECIMENOrdering Facility: [facility] Address: [address] [place] [address] Performed By: #### 2 4321-2 ####[facility]ORYCLIA [id number] [place] [address] [place] Calcium [Mass/Vol] 8.7 mg/dL Normal 8.5-10.2 [facility] Comment on above: Order Comment: Leny patel Type: BLOOD SPECIMENOrdering Facility: [facility] Address: [address] [place] [address] Performed By: #### 2 4321-2 ####[facility]ORATORYCLIA [id number] [place] [address] [place] Chloride [Moles/Vol] 102 mmol/L Normal 98-107 [facility] Comment on above: Order Comment: Leny patel Type: BLOOD SPECIMENOrdering Facility: [facility] Address: [facility] [place] [address] Performed By: #### 2 4321-2 ####[facility]ORATORYCLIA [id number] [place] [address] [place] CO2 [Moles/Vol] 23 mmol/L Normal 22-30 [facility] Comment on above: Order Comment: Speci men Type: BLOOD SPECIMENOrdering Facility: [facility] Address: [address] [place] [address] Performed By: #### 2 4321-2 ####[facility] [id number] [address] [place] Creatinine [Mass/Vol] 0.67 mg/dL Low 0.73-1.22 [facility] Comment on above: Order Comment: Speci men Type: BLOOD SPECIMENOrdering Facility: [facility] Address: [address] [place] [address] Performed By: #### 2 4321-2 ####[facility] [id number] [address] Creatinine and Glomerular filtration rate.predicted panel (S/P/Bld) 91 mL/min/1.73m??? Normal >=60 [facility] Comment on above: Order Comment: Speci men Type: BLOOD SPECIMENOrdering Facility: [facility] Address: [address] [place] [address] Result Comment: Alexia mated Glomerular Filtration Rate (eGFR) is calculated using the 2020 CKD-EPI creatinine equation. This equation utilizes serum creatinine, sex, and age as parameters. The creatinine assay has traceable calibration to isotope dilution-mass spectrometry. Refer to KDIGO guidelines for clinical interpretation. In patients with unstable renal function, e.g. those with acute kidney injury, the eGFR may not accurately reflect actual GFR. Performed By: #### 2 4321-2 ####[facility]ORYCLIA [id number] [address] [place] Glucose [Mass/Vol] 118 mg/dL High 74-99 [facility] Comment on above: Order Comment: Leny patel Type: BLOOD SPECIMENOrdering Facility: [facility] Address: [address] [place] [address] Result Comment: The [place] [employer] (ADA) provides guidance for cutoff values for fasting glucose and random glucose. The ADA defines fasting as no caloric intake for at least 8 hours. Fasting plasma glucose results between 100 to 125 mg/dL indicate increased risk for diabetes (prediabetes).Fasting plasma glucose results greater than or equal to 126 mg/dL meet the criteria for diagnosis of diabetes. In the absence of unequivocal hyperglycemia, results should be confirmed by repeat testing. In a patient with classic symptoms of hyperglycemia or hyperglycemic crisis, random plasma glucose results greater than or equal to 200 mg/dL meet the criteria for diagnosis of diabetes.Reference: Standards of Medical Care in Diabetes 2016, [place] [employer]. Diabetes Care. 2016.39(Suppl 1). Performed By: #### 2 4321-2 ####[facility]ORATORYCLIA [id number] [address] STATES OF [facility] Potassium [Moles/Vol] 3.9 mmol/L Normal 3.7-5.1 [facility] Comment on above: Order Comment: Speci men Type: BLOOD SPECIMENOrdering Facility: [facility] Address: [address] [place] [address] Performed By: #### 2 4321-2 ####[facility] [id number] [address] Sodium [Moles/Vol] 135 mmol/L Low 136-144 [facility] Comment on above: Order Comment: Leny patel Type: BLOOD SPECIMENOrdering Facility: [facility] Address: [address] [place] [address] Performed By: #### 2 4321-2 ####[facility]ORYCLIA [id number] [address] STATES [facility] Urea nitrogen [Mass/Vol] 13 mg/dL Normal 9-24 [facility] Comment on above: Order Comment: Speci men Type: BLOOD SPECIMENOrdering Facility: [facility] Address: [address] [place] [address] Performed By: #### 2 4321-2 ####[facility]ORYCLIA [id number] [address] [place] CASE MANAGEMon 03-01-2024 CASE MANAGEM Normal [facility] CASE MANAGEM Normal [facility] CBC panel Auto (Bld)on 03-01 Erythrocyte distribution width (RBC) [Ratio] 14.4 % Normal 11.5-15.0 [facility] Comment on above: Order Comment: Speci men Type: BLOOD SPECIMENOrdering Facility: [facility] Address: [address] [place] [address] Performed By: #### 5 8410-2 ####[facility]ORYCLIA [id number] [address] Hematocrit (Bld) [Volume fraction] 27.3 % Low 39.0-51.0 [facility] Comment on above: Order Comment: Speci men Type: BLOOD SPECIMENOrdering Facility: [facility] Address: [address] [place] [address] Performed By: #### 5 8410-2 ####[facility]ORYCLIA [id number] [address] OF [facility] Hemoglobin (Bld) [Mass/Vol] 8.8 g/dL Low 13.0-17.0 [facility] Comment on above: Order Comment: Speci men Type: BLOOD SPECIMENOrdering Facility: [facility] Address: [address] [place] [address] Performed By: #### 5 8410-2 ####[facility]OR[facility]ORYCLIA [id number] [address] MCH (RBC) [Entitic mass] 29.2 pg Normal 26.0-34.0 [facility] Comment on above: Order Comment: Speci men Type: BLOOD SPECIMENOrdering Facility: [facility] Address: [address] [place] [address] Performed By: #### 5 8410-2 ####[facility]ORYCLIA [id number] [address] STATES [facility] MCHC (RBC) [Mass/Vol] 32.2 g/dL Normal 30.5-36.0 [facility] Comment on above: Order Comment: Speci men Type: BLOOD SPECIMENOrdering Facility: [facility] Address: [address] [place] [address] Performed By: #### 5 8410-2 ####[facility]ORYCLIA [id number] [address] [place] MCV (RBC) [Entitic vol] 90.7 fL Normal 80.0-100.0 [facility] Comment on above: Order Comment: Speci men Type: BLOOD SPECIMENOrdering Facility: [facility] Address: [address] [place] [address] Performed By: #### 5 8410-2 ####[facility]ORYCLIA [id number] [address] [place] Nucleated RBC (Bld) [#/Vol] 10*3/uL Normal <0.01 [facility] Comment on above: Order Comment: Speci men Type: BLOOD SPECIMENOrdering Facility: [facility] Address: [address] [place] [address] Performed By: #### 5 8410-2 ####[facility]ORYCLIA [id number] [address] [place] Platelet mean volume (Bld) [Entitic vol] 9.4 fL Normal 9.0-12.7 [facility] Comment on above: Order Comment: Speci men Type: BLOOD SPECIMENOrdering Facility: [facility] Address: [address] [place] [address] Performed By: #### 5 8410-2 ####[facility]ORYCLIA [id number] [address] [place] Platelets (Bld) [#/Vol] 267 10*3/uL Normal 150-400 [facility] Comment on above: Order Comment: Speci men Type: BLOOD SPECIMENOrdering Facility: [facility] Address: [address] [place] [address] Performed By: #### 5 8410-2 ####[facility]ATORYCLIA [id number] [address] [place] RBC (Bld) [#/Vol] 3.01 10*6/uL Low 4.20-6.00 [facility] Comment on above: Order Comment: Speci men Type: BLOOD SPECIMENOrdering Facility: [facility] Address: [address] [place] [address] Performed By: #### 5 8410-2 ####[facility]ATORYCLIA [id number] [place] [address] [place] WBC (Bld) [#/Vol] 8.42 10*3/uL Normal 3.70-11.00 [facility] Comment on above: Order Comment: Speci men Type: BLOOD SPECIMENOrdering Facility: [facility] Address: [address] [place] [address] Performed By: #### 5 8410-2 ####[facility]ATORYCLIA [id number] [place] [address] [place] CNDSon 03-01-2024 CNDS Normal [facility] Basic metabolic 2000 panelon 02-29-2024 Anion gap [Moles/Vol] 9 mmol/L Normal 8-15 [facility] Comment on above: Order Comment: Speci men Type: BLOOD SPECIMENOrdering Facility: [facility] Address: [address] [place] [address] Performed By: #### 2 4321-2 ####[facility]ATORYCLIA [id number] [place] [address] [place] Calcium [Mass/Vol] 8.9 mg/dL Normal 8.5-10.2 [facility] Comment on above: Order Comment: Speci men Type: BLOOD SPECIMENOrdering Facility: [facility] Address: [address] [place] [address] Performed By: #### 2 4321-2 ####[facility]ATORYCLIA [id number] [place] [address] [place] Chloride [Moles/Vol] 96 mmol/L Low 98-107 [facility] Comment on above: Order Comment: Speci men Type: BLOOD SPECIMENOrdering Facility: [facility] Address: [address] [place] [address] Performed By: #### 2 4321-2 ####[facility]ATORYCLIA [id number] [address] [place] CO2 [Moles/Vol] 22 mmol/L Normal 22-30 [facility] Comment on above: Order Comment: Speci men Type: BLOOD SPECIMENOrdering Facility: [facility] Address: [address] [place] [address] Performed By: #### 2 4321-2 ####[facility]ATORYCLIA [id number] [address] [place] Creatinine [Mass/Vol] 0.68 mg/dL Low 0.73-1.22 [facility] Comment on above: Order Comment: Speci men Type: BLOOD SPECIMENOrdering Facility: [facility] Address: [address] [place] [address] Performed By: #### 2 4321-2 ####[facility]ATORYCLIA [id number] [address] Creatinine and Glomerular filtration rate.predicted panel (S/P/Bld) 91 mL/min/1.73m??? Normal >=60 [facility] Comment on above: Order Comment: Speci men Type: BLOOD SPECIMENOrdering Facility: [facility] Address: [address] [place] [address] Result Comment: Alexia mated Glomerular Filtration Rate (eGFR) is calculated using the 2020 CKD-EPI creatinine equation. This equation utilizes serum creatinine, sex, and age as parameters. The creatinine assay has traceable calibration to isotope dilution-mass spectrometry. Refer to KDIGO guidelines for clinical interpretation. In patients with unstable renal function, e.g. those with acute kidney injury, the eGFR may not accurately reflect actual GFR. Performed By: #### 2 4321-2 ####[facility]ATORYCLIA [id number] [address] [place] Glucose [Mass/Vol] 105 mg/dL High 74-99 [facility] Comment on above: Order Comment: Speci men Type: BLOOD SPECIMENOrdering Facility: [facility] Address: [address] [place] [address] Result Comment: The [place] [employer] (ADA) provides guidance for cutoff values for fasting glucose and random glucose. The ADA defines fasting as no caloric intake for at least 8 hours. Fasting plasma glucose results between 100 to 125 mg/dL indicate increased risk for diabetes (prediabetes).Fasting plasma glucose results greater than or equal to 126 mg/dL meet the criteria for diagnosis of diabetes. In the absence of unequivocal hyperglycemia, results should be confirmed by repeat testing. In a patient with classic symptoms of hyperglycemia or hyperglycemic crisis, random plasma glucose results greater than or equal to 200 mg/dL meet the criteria for diagnosis of diabetes.Reference: Standards of Medical Care in Diabetes 2016, [place] [employer]. Diabetes Care. 2016.39(Suppl 1). Performed By: #### 2 4321-2 ####[facility]ATORYCLIA [id number] [address] [place] Potassium [Moles/Vol] 3.9 mmol/L Normal 3.7-5.1 [facility] Comment on above: Order Comment: Speci men Type: BLOOD SPECIMENOrdering Facility: [facility] Address: [address] [place] [address] Performed By: #### 2 4321-2 ####[facility]ATORYCLIA [id number] [address] [place] Sodium [Moles/Vol] 127 mmol/L Low 136-144 [facility] Comment on above: Order Comment: Shyanni amanda Type: BLOOD SPECIMENOrdering Facility: [facility] Address: [address] [place] [address] Performed By: #### 2 4321-2 ####[facility]ATORYCLIA [id number] [address] [place] Urea nitrogen [Mass/Vol] 15 mg/dL Normal 9-24 [facility] Comment on above: Order Comment: Shyanni amanda Type: BLOOD SPECIMENOrdering Facility: [facility] Address: [address] [place] [address] Performed By: #### 2 4321-2 ####[facility]ATORYCLIA [id number] [address] [place] CASE MANAGEMon 02-29-2024 CASE MANAGEM Normal [facility] CBC panel Auto (Bld)on 02-28 Erythrocyte distribution width (RBC) [Ratio] 14.6 % Normal 11.5-15.0 [facility] Comment on above: Order Comment: Speci men Type: BLOOD SPECIMENOrdering Facility: [facility] Address: [address] [place] [address] Performed By: #### 5 8410-2 ####[facility]ATORYCLIA [id number] [address] STATES OF [facility] Hematocrit (Bld) [Volume fraction] 27.4 % Low 39.0-51.0 [facility] Comment on above: Order Comment: Speci men Type: BLOOD SPECIMENOrdering Facility: [facility] Address: [address] [place] [address] Performed By: #### 5 8410-2 ####[facility]ATORYCLIA [id number] [address] OF [facility] Hemoglobin (Bld) [Mass/Vol] 9.1 g/dL Low 13.0-17.0 [facility] Comment on above: Order Comment: Speci men Type: BLOOD SPECIMENOrdering Facility: [facility] Address: [address] [place] [address] Performed By: #### 5 8410-2 ####[facility]ATORYCLIA [id number] [address] [place] MCH (RBC) [Entitic mass] 30.3 pg Normal 26.0-34.0 [facility] Comment on above: Order Comment: Speci men Type: BLOOD SPECIMENOrdering Facility: [facility] Address: [address] [place] [address] Performed By: #### 5 8410-2 ####[facility]ATORYCLIA [id number] [address] [place] MCHC (RBC) [Mass/Vol] 33.2 g/dL Normal 30.5-36.0 [facility] Comment on above: Order Comment: Speci men Type: BLOOD SPECIMENOrdering Facility: [facility] Address: [address] [place] [address] Performed By: #### 5 8410-2 ####[facility]ATORYCLIA [id number] [address] [place] MCV (RBC) [Entitic vol] 91.3 fL Normal 80.0-100.0 [facility] Comment on above: Order Comment: Speci men Type: BLOOD SPECIMENOrdering Facility: [facility] Address: [address] [place] [address] Performed By: #### 5 8410-2 ####[facility]ATORYCLIA [id number] [address] [place] Nucleated RBC (Bld) [#/Vol] 10*3/uL Normal <0.01 [facility] Comment on above: Order Comment: Speci men Type: BLOOD SPECIMENOrdering Facility: [facility] Address: [address] [place] [address] Performed By: #### 5 8410-2 ####[facility]ATORYCLIA [id number] [address] [place] Platelet mean volume (Bld) [Entitic vol] 9.3 fL Normal 9.0-12.7 [facility] Comment on above: Order Comment: Speci men Type: BLOOD SPECIMENOrdering Facility: [facility] Address: [address] [place] [address] Performed By: #### 5 8410-2 ####[facility]ATORYCLIA [id number] [address] [place] Platelets (Bld) [#/Vol] 237 10*3/uL Normal 150-400 [facility] Comment on above: Order Comment: Speci men Type: BLOOD SPECIMENOrdering Facility: [facility] Address: [address] [place] [address] Performed By: #### 5 8410-2 ####[facility]ATORYCLIA [id number] [address] [place] RBC (Bld) [#/Vol] 3.00 10*6/uL Low 4.20-6.00 [facility] Comment on above: Order Comment: Speci men Type: BLOOD SPECIMENOrdering Facility: [facility] Address: [address] [place] [address] Performed By: #### 5 8410-2 ####[facility]ATORYCLIA [id number] [place] [address] [place] WBC (Bld) [#/Vol] 8.68 10*3/uL Normal 3.70-11.00 [facility] Comment on above: Order Comment: Speci men Type: BLOOD SPECIMENOrdering Facility: [facility] Address: [address] [place] [address] Performed By: #### 5 8410-2 ####[facility]ATORYCLIA [id number] [address] [place] THERAPY NTon 02-29-2024 THERAPY NT Normal [facility] Basic metabolic 2000 panelon 02-28-2024 Anion gap [Moles/Vol] 9 mmol/L Normal 8-15 [facility] Comment on above: Order Comment: Speci men Type: BLOOD SPECIMENOrdering Facility: [facility] Address: [address] [place] [address] Performed By: #### 2 4321-2 ####[facility]ATORYCLIA [id number] [place] [address] [place] Calcium [Mass/Vol] 8.7 mg/dL Normal 8.5-10.2 [facility] Comment on above: Order Comment: Speci men Type: BLOOD SPECIMENOrdering Facility: [facility] Address: [address] [place] [address] Performed By: #### 2 4321-2 ####[facility]ATORYCLIA [id number] [place] [address] [place] Chloride [Moles/Vol] 100 mmol/L Normal 98-107 [facility] Comment on above: Order Comment: Speci men Type: BLOOD SPECIMENOrdering Facility: [facility] Address: [address] [place] [address] Performed By: #### 2 4321-2 ####[facility]ATORYCLIA [id number] [address] STATES OF [facility] CO2 [Moles/Vol] 23 mmol/L Normal 22-30 [facility] Comment on above: Order Comment: Speci men Type: BLOOD SPECIMENOrdering Facility: [facility] Address: [address] [place] [address] Performed By: #### 2 4321-2 ####[facility]ATORYCLIA [id number] [address] Creatinine [Mass/Vol] 0.70 mg/dL Low 0.73-1.22 [facility] Comment on above: Order Comment: Speci men Type: BLOOD SPECIMENOrdering Facility: [facility] Address: [address] [place] [address] Performed By: #### 2 4321-2 ####[facility]ITALCLIA [id number] [address] Creatinine and Glomerular filtration rate.predicted panel (S/P/Bld) 90 mL/min/1.73m??? Normal >=60 [facility] Comment on above: Order Comment: Speci men Type: BLOOD SPECIMENOrdering Facility: [facility] Address: [address] [place] [address] Result Comment: Alexia mated Glomerular Filtration Rate (eGFR) is calculated using the 2020 CKD-EPI creatinine equation. This equation utilizes serum creatinine, sex, and age as parameters. The creatinine assay has traceable calibration to isotope dilution-mass spectrometry. Refer to KDIGO guidelines for clinical interpretation. In patients with unstable renal function, e.g. those with acute kidney injury, the eGFR may not accurately reflect actual GFR. Performed By: #### 2 4321-2 ####[facility]ATORYCLIA [id number] [address] Glucose [Mass/Vol] 104 mg/dL High 74-99 [facility] Comment on above: Order Comment: Speci men Type: BLOOD SPECIMENOrdering Facility: [facility] Address: [address] [place] [address] Result Comment: The [place] [employer] (ADA) provides guidance for cutoff values for fasting glucose and random glucose. The ADA defines fasting as no caloric intake for at least 8 hours. Fasting plasma glucose results between 100 to 125 mg/dL indicate increased risk for diabetes (prediabetes).Fasting plasma glucose results greater than or equal to 126 mg/dL meet the criteria for diagnosis of diabetes. In the absence of unequivocal hyperglycemia, results should be confirmed by repeat testing. In a patient with classic symptoms of hyperglycemia or hyperglycemic crisis, random plasma glucose results greater than or equal to 200 mg/dL meet the criteria for diagnosis of diabetes.Reference: Standards of Medical Care in Diabetes 2016, [place] [employer]. Diabetes Care. 2016.39(Suppl 1). Performed By: #### 2 4321-2 ####[facility]ATORYCLIA [id number] [address] [place] Potassium [Moles/Vol] 4.2 mmol/L Normal 3.7-5.1 [facility] Comment on above: Order Comment: Speci men Type: BLOOD SPECIMENOrdering Facility: [facility] Address: [address] [place] [address] Performed By: #### 2 4321-2 ####[facility]ATORYCLIA [id number] [address] STATES [facility] Sodium [Moles/Vol] 132 mmol/L Low 136-144 [facility] Comment on above: Order Comment: Speci men Type: BLOOD SPECIMENOrdering Facility: [facility] Address: [address] [place] [address] Performed By: #### 2 4321-2 ####[facility]ATORYCLIA [id number] [address] [place] Urea nitrogen [Mass/Vol] 13 mg/dL Normal 9-24 [facility] Comment on above: Order Comment: Speci men Type: BLOOD SPECIMENOrdering Facility: [facility] Address: [address] [place] [address] Performed By: #### 2 4321-2 ####[facility]ATORYCLIA [id number] [address] CBC panel Auto (Bld)on 02-27 Erythrocyte distribution width (RBC) [Ratio] 14.6 % Normal 11.5-15.0 [facility] Comment on above: Order Comment: Speci men Type: BLOOD SPECIMENOrdering Facility: [facility] Address: [address] [place] [address] Performed By: #### 5 8410-2 ####[facility]ATORYCLIA [id number] [address] Hematocrit (Bld) [Volume fraction] 28.6 % Low 39.0-51.0 [facility] Comment on above: Order Comment: Speci men Type: BLOOD SPECIMENOrdering Facility: [facility] Address: [address] [place] [address] Performed By: #### 5 8410-2 ####[facility]ATORYCLIA [id number] [address] Hemoglobin (Bld) [Mass/Vol] 9.2 g/dL Low 13.0-17.0 [facility] Comment on above: Order Comment: Speci men Type: BLOOD SPECIMENOrdering Facility: [facility] Address: [address] [place] [address] Performed By: #### 5 8410-2 ####[facility]ATORYCLIA [id number] [address] MCH (RBC) [Entitic mass] 29.4 pg Normal 26.0-34.0 [facility] Comment on above: Order Comment: Speci men Type: BLOOD SPECIMENOrdering Facility: [facility] Address: [address] [place] [address] Performed By: #### 5 8410-2 ####[facility]ORYCLIA [id number] [address] MCHC (RBC) [Mass/Vol] 32.2 g/dL Normal 30.5-36.0 [facility] Comment on above: Order Comment: Speci men Type: BLOOD SPECIMENOrdering Facility: [facility] Address: [address] [place] [address] Performed By: #### 5 8410-2 ####[facility]ATORYCLIA [id number] [address] [place] MCV (RBC) [Entitic vol] 91.4 fL Normal 80.0-100.0 [facility] Comment on above: Order Comment: Speci men Type: BLOOD SPECIMENOrdering Facility: [facility] Address: [address] [place] [address] Performed By: #### 5 8410-2 ####[facility]ORYCLIA [id number] [address] [place] Nucleated RBC (Bld) [#/Vol] 10*3/uL Normal <0.01 [facility] Comment on above: Order Comment: Speci men Type: BLOOD SPECIMENOrdering Facility: [facility] Address: [address] [place] [address] Performed By: #### 5 8410-2 ####[facility]ORYCLIA [id number] [address] [place] Platelet mean volume (Bld) [Entitic vol] 9.7 fL Normal 9.0-12.7 [facility] Comment on above: Order Comment: Speci men Type: BLOOD SPECIMENOrdering Facility: [facility] Address: [address] [place] [address] Performed By: #### 5 8410-2 ####[facility]ORYCLIA [id number] [address] [place] Platelets (Bld) [#/Vol] 241 10*3/uL Normal 150-400 [facility] Comment on above: Order Comment: Speci men Type: BLOOD SPECIMENOrdering Facility: [facility] Address: [address] [place] [address] Performed By: #### 5 8410-2 ####[facility]ORYCLIA [id number] [address] [place] RBC (Bld) [#/Vol] 3.13 10*6/uL Low 4.20-6.00 [facility] Comment on above: Order Comment: Speci men Type: BLOOD SPECIMENOrdering Facility: [facility] Address: [address] [place] [address] Performed By: #### 5 8410-2 ####[facility]ATORYCLIA [id number] [place] [address] [place] WBC (Bld) [#/Vol] 9.48 10*3/uL Normal 3.70-11.00 [facility] Comment on above: Order Comment: Speci men Type: BLOOD SPECIMENOrdering Facility: [facility] Address: [address] [place] [address] Performed By: #### 5 8410-2 ####[facility]ATORYCLIA [id number] [address] [place] THERAPY NTon 02-28-2024 THERAPY NT Normal [facility] THERAPY NT Normal [facility] ALLIED HEALTHon 02-27-2024 ALLIED HEALTH Normal [facility] Basic metabolic 2000 panelon 02-27-2024 Anion gap [Moles/Vol] 8 mmol/L Normal 8-15 [facility] Comment on above: Order Comment: Speci men Type: BLOOD SPECIMENOrdering Facility: [facility] Address: [address] [place] [address] Performed By: #### 2 4321-2 ####[facility]ATORYCLIA [id number] [place] [address] [place] Calcium [Mass/Vol] 8.2 mg/dL Low 8.5-10.2 [facility] Comment on above: Order Comment: Speci men Type: BLOOD SPECIMENOrdering Facility: [facility] Address: [address] [place] [address] Performed By: #### 2 4321-2 ####[facility]ATORYCLIA [id number] [place] [address] [place] Chloride [Moles/Vol] 102 mmol/L Normal 98-107 [facility] Comment on above: Order Comment: Speci men Type: BLOOD SPECIMENOrdering Facility: [facility] Address: [address] [place] [address] Performed By: #### 2 4321-2 ####[facility]ATORYCLIA [id number] [place] [address] [place] [facility] CO2 [Moles/Vol] 21 mmol/L Low 22-30 [facility] Comment on above: Order Comment: Speci men Type: BLOOD SPECIMENOrdering Facility: [facility] Address: [address] [place] [address] Performed By: #### 2 4321-2 ####[facility]ORYCLIA [id number] [address] [place] Creatinine [Mass/Vol] 0.60 mg/dL Low 0.73-1.22 [facility] Comment on above: Order Comment: Speci men Type: BLOOD SPECIMENOrdering Facility: [facility] Address: [address] [place] [address] Performed By: #### 2 4321-2 ####[facility]ATORYCLIA [id number] [address] Creatinine and Glomerular filtration rate.predicted panel (S/P/Bld) 95 mL/min/1.73m??? Normal >=60 [facility] Comment on above: Order Comment: Speci men Type: BLOOD SPECIMENOrdering Facility: [facility] Address: [address] [place] [address] Result Comment: Alexia mated Glomerular Filtration Rate (eGFR) is calculated using the 2020 CKD-EPI creatinine equation. This equation utilizes serum creatinine, sex, and age as parameters. The creatinine assay has traceable calibration to isotope dilution-mass spectrometry. Refer to KDIGO guidelines for clinical interpretation. In patients with unstable renal function, e.g. those with acute kidney injury, the eGFR may not accurately reflect actual GFR. Performed By: #### 2 4321-2 ####[facility]ORYCLIA [id number] [address] [place] Glucose [Mass/Vol] 120 mg/dL High 74-99 [facility] Comment on above: Order Comment: Speci men Type: BLOOD SPECIMENOrdering Facility: [facility] Address: [address] [place] [address] Result Comment: The [place] [employer] (ADA) provides guidance for cutoff values for fasting glucose and random glucose. The ADA defines fasting as no caloric intake for at least 8 hours. Fasting plasma glucose results between 100 to 125 mg/dL indicate increased risk for diabetes (prediabetes).Fasting plasma glucose results greater than or equal to 126 mg/dL meet the criteria for diagnosis of diabetes. In the absence of unequivocal hyperglycemia, results should be confirmed by repeat testing. In a patient with classic symptoms of hyperglycemia or hyperglycemic crisis, random plasma glucose results greater than or equal to 200 mg/dL meet the criteria for diagnosis of diabetes.Reference: Standards of Medical Care in Diabetes 2016, [employer]. Diabetes Care. 2016.39(Suppl 1). Performed By: #### 2 4321-2 ####[facility]ATORYCLIA [id number] [place] [address] [place] Potassium [Moles/Vol] 3.8 mmol/L Normal 3.7-5.1 [facility] Comment on above: Order Comment: Speci [facility] Type: BLOOD SPECIMENOrdering Facility: [facility] Address: [address] [place] [address] Performed By: #### 2 4321-2 ####[facility]ORATORYCLIA [id number] [place] [address] [place] Sodium [Moles/Vol] 131 mmol/L Low 136-144 [facility] Comment on above: Order Comment: Speci men Type: BLOOD SPECIMENOrdering Facility: [facility] Address: [address] [place] [address] Performed By: #### 2 4321-2 ####[facility]ORATORYCLIA [id number] [place] [address] [place] Urea nitrogen [Mass/Vol] 16 mg/dL Normal 9-24 [facility] Comment on above: Order Comment: Speci men Type: BLOOD SPECIMENOrdering Facility: [facility] Address: [address] [place] [address] Performed By: #### 2 1-2 ####[facility]ORATORYCLIA [id number] [address] STATES OF [facility] CBC panel Auto (Bld)on 02-26 Erythrocyte distribution width (RBC) [Ratio] 14.6 % Normal 11.5-15.0 [facility] Comment on above: Order Comment: Speci men Type: BLOOD SPECIMENOrdering Facility: [facility] Address: [address] [place] [address] Performed By: #### 5 8410-2 ####[facility]ATORYCLIA [id number] [address] Hematocrit (Bld) [Volume fraction] 29.1 % Low 39.0-51.0 [facility] Comment on above: Order Comment: Speci men Type: BLOOD SPECIMENOrdering Facility: [facility] Address: [address] [place] [address] Performed By: #### 5 8410-2 ####[facility]ATORYCLIA [id number] [address] Hemoglobin (Bld) [Mass/Vol] 9.5 g/dL Low 13.0-17.0 [facility] Comment on above: Order Comment: Speci men Type: BLOOD SPECIMENOrdering Facility: [facility] Address: [address] [place] [address] Performed By: #### 5 8410-2 ####[facility]ORATORYCLIA [id number] [address] STATES [facility] MCH (RBC) [Entitic mass] 30.1 pg Normal 26.0-34.0 [facility] Comment on above: Order Comment: Speci men Type: BLOOD SPECIMENOrdering Facility: [facility] Address: [address] [place] [address] Performed By: #### 5 8410-2 ####[facility]ATORYCLIA [id number] [address] [place] MCHC (RBC) [Mass/Vol] 32.6 g/dL Normal 30.5-36.0 [facility] Comment on above: Order Comment: Speci men Type: BLOOD SPECIMENOrdering Facility: [facility] Address: [address] [place] [address] Performed By: #### 5 8410-2 ####[facility]ATORYCLIA [id number] [address] [place] MCV (RBC) [Entitic vol] 92.1 fL Normal 80.0-100.0 [facility] Comment on above: Order Comment: Speci men Type: BLOOD SPECIMENOrdering Facility: [facility] Address: [address] [place] [address] Performed By: #### 5 8410-2 ####[facility]ATORYCLIA [id number] [address] [place] Nucleated RBC (Bld) [#/Vol] 10*3/uL Normal <0.01 [facility] Comment on above: Order Comment: Speci men Type: BLOOD SPECIMENOrdering Facility: [facility] Address: [address] [place] [address] Performed By: #### 5 8410-2 ####[facility]ATORYCLIA [id number] [address] [place] Platelet mean volume (Bld) [Entitic vol] 9.5 fL Normal 9.0-12.7 [facility] Comment on above: Order Comment: Speci men Type: BLOOD SPECIMENOrdering Facility: [facility] Address: [address] [place] [address] Performed By: #### 5 8410-2 ####[facility]ATORYCLIA [id number] [address] [place] Platelets (Bld) [#/Vol] 249 10*3/uL Normal 150-400 [facility] Comment on above: Order Comment: Speci men Type: BLOOD SPECIMENOrdering Facility: [facility] Address: [address] [place] [address] Performed By: #### 5 8410-2 ####[facility]ATORYCLIA [id number] [place] [address] [place] RBC (Bld) [#/Vol] 3.16 10*6/uL Low 4.20-6.00 [facility] Comment on above: Order Comment: Speci men Type: BLOOD SPECIMENOrdering Facility: [facility] Address: [address] [place], [place] [address] Performed By: #### 5 8410-2 ####[facility]ATORYCLIA [id number] [place] [address] [place] WBC (Bld) [#/Vol] 12.06 10*3/uL High 3.70-11.00 [facility] Comment on above: Order Comment: Speci men Type: BLOOD SPECIMENOrdering Facility: [facility] Address: [address] [place] [address] Performed By: #### 5 8410-2 ####[facility]ORATORYCLIA [id number] [address] OF [facility] CONSULTon 02-27-2024 CONSULT Normal [facility] CT ABD/PEL W IVCONon 024 CT ABD/PEL W IVCON Normal [facility] NURSING PROGon 02-27-2024 NURSING PROG Normal [facility] Basic Metabolic Profile (BMP )on 02-26-2024 BUN Normal 7-18 [facility] Comment on above: Result Comment: Canc elled via OM: Order cancelled - Patient discharged Performed By: #### L 500.2500, L100.0100 #### [facility] [address] [place], [address] BUN/CRE Normal 10-20 [facility] Comment on above: Result Comment: Canc elled via OM: Order cancelled - Patient discharged Performed By: #### L 500.2500, L100.0100 #### [facility] [address] [place], [address] CA,Total Normal 8.5-10.1 [facility] Comment on above: Result Comment: Canc elled via OM: Order cancelled - Patient discharged Performed By: #### L 500.2500, L100.0100 #### [facility] [address] [place], [address] CL Normal 98-107 [facility] Comment on above: Result Comment: Canc elled via OM: Order cancelled - Patient discharged Performed By: #### L 500.2500, L100.0100 #### [facility] [address] [place], [address] CO2 Normal 21.0-32.0 [facility] Comment on above: Result Comment: Canc elled via OM: Order cancelled - Patient discharged Performed By: #### L 500.2500, L100.0100 #### [facility] [address] [place], [address] CREAT,SERUM Normal 0.70-1.30 [facility] Comment on above: Result Comment: Canc elled via OM: Order cancelled - Patient discharged Performed By: #### L 500.2500, L100.0100 #### [facility] [address] [place], [address] EST GFR Normal >60 [facility] Comment on above: Result Comment: Canc elled via OM: Order cancelled - Patient discharged Performed By: #### L 500.2500, L100.0100 #### [facility] [address] [place], [address] EST GFR - AA Normal >60 [facility] Comment on above: Result Comment: Canc elled via OM: Order cancelled - Patient discharged Performed By: #### L 500.2500, L100.0100 #### [facility] [address] [place], [address] GAP Normal 5-15 [facility] Comment on above: Result Comment: Canc elled via OM: Order cancelled - Patient discharged Performed By: #### L 500.2500, L100.0100 #### [facility] [address] [place], [address] GLU Normal 74-106 [facility] Comment on above: Result Comment: Canc elled via OM: Order cancelled - Patient discharged Performed By: #### L 500.2500, L100.0100 #### [facility] [address] [place], [address] Potassium Normal 3.5-5.1 [facility] Comment on above: Result Comment: Canc elled via OM: Order cancelled - Patient discharged Performed By: #### L 500.2500, L100.0100 #### [facility] [address] [place], [address] Basic Metabolic Profile (BMP) Normal 136-145 [facility] Comment on above: Result Comment: Canc elled via OM: Order cancelled - Patient discharged Performed By: #### L 500.2500, L100.0100 #### [facility] [address] [place], [address] Basic metabolic 2000 panelon 02-26-2024 Anion gap [Moles/Vol] 10 mmol/L Normal 8-15 [facility] Comment on above: Order Comment: Speci men Type: BLOOD SPECIMENOrdering Facility: [facility] Address: [address] [place] [address] Performed By: #### 2 4321-2 ####[facility]ATORYCLIA [id number] [place] [address] [place] Calcium [Mass/Vol] 8.3 mg/dL Low 8.5-10.2 [facility] Comment on above: Order Comment: Speci men Type: BLOOD SPECIMENOrdering Facility: [facility] Address: [facility] [place] [address] Performed By: #### 2 4321-2 ####[facility]ATORYCLIA [id number] [place] [address] [place] Chloride [Moles/Vol] 104 mmol/L Normal 98-107 [facility] Comment on above: Order Comment: Speci men Type: BLOOD SPECIMENOrdering Facility: [facility] Address: [address] [place] [address] Performed By: #### 2 4321-2 ####[facility]ATORYCLIA [id number] [place] [address] [place] CO2 [Moles/Vol] 21 mmol/L Low 22-30 [facility] Comment on above: Order Comment: Speci men Type: BLOOD SPECIMENOrdering Facility: [facility] Address: [address] [place] [address] Performed By: #### 2 4321-2 ####[facility]ATORYCLIA [id number] [address] [place] Creatinine [Mass/Vol] 0.77 mg/dL Normal 0.73-1.22 [facility] Comment on above: Order Comment: Speci men Type: BLOOD SPECIMENOrdering Facility: [facility] Address: [address] [place] [address] Performed By: #### 2 4321-2 ####[facility]ATORYCLIA [id number] [address] Creatinine and Glomerular filtration rate.predicted panel (S/P/Bld) 88 mL/min/1.73m??? Normal >=60 [facility] Comment on above: Order Comment: Speci men Type: BLOOD SPECIMENOrdering Facility: [facility] Address: [address] [place] [address] Result Comment: Alexia mated Glomerular Filtration Rate (eGFR) is calculated using the 2020 CKD-EPI creatinine equation. This equation utilizes serum creatinine, sex, and age as parameters. The creatinine assay has traceable calibration to isotope dilution-mass spectrometry. Refer to KDIGO guidelines for clinical interpretation. In patients with unstable renal function, e.g. those with acute kidney injury, the eGFR may not accurately reflect actual GFR. Performed By: #### 2 4321-2 ####[facility]ATORYCLIA [id number] [address] [place] Glucose [Mass/Vol] 107 mg/dL High 74-99 [facility] Comment on above: Order Comment: Speci men Type: BLOOD SPECIMENOrdering Facility: [facility] Address: [address] [place] [address] Result Comment: The [place] [employer] (ADA) provides guidance for cutoff values for fasting glucose and random glucose. The ADA defines fasting as no caloric intake for at least 8 hours. Fasting plasma glucose results between 100 to 125 mg/dL indicate increased risk for diabetes (prediabetes).Fasting plasma glucose results greater than or equal to 126 mg/dL meet the criteria for diagnosis of diabetes. In the absence of unequivocal hyperglycemia, results should be confirmed by repeat testing. In a patient with classic symptoms of hyperglycemia or hyperglycemic crisis, random plasma glucose results greater than or equal to 200 mg/dL meet the criteria for diagnosis of diabetes.Reference: Standards of Medical Care in Diabetes 2016, [place] [employer]. Diabetes Care. 2016.39(Suppl 1). Performed By: #### 2 4321-2 ####[facility]ATORYCLIA [id number] [place] [address] [place] Potassium [Moles/Vol] 4.4 mmol/L Normal 3.7-5.1 [facility] Comment on above: Order Comment: Leny patel Type: BLOOD SPECIMENOrdering Facility: [facility] Address: [address] [place] [address] Performed By: #### 2 4321-2 ####[facility]ATORYCLIA [id number] [place] [address] [place] Sodium [Moles/Vol] 135 mmol/L Low 136-144 [facility] Comment on above: Order Comment: Speci men Type: BLOOD SPECIMENOrdering Facility: [facility] Address: [address] [place] [address] Performed By: #### 2 4321-2 ####[facility]ATORYCLIA [id number] [place] [address] [place] Urea nitrogen [Mass/Vol] 22 mg/dL Normal 9-24 [facility] Comment on above: Order Comment: Speci men Type: BLOOD SPECIMENOrdering Facility: [facility] Address: [address] [place] [address] Performed By: #### 2 4321-2 ####[facility]ATORYCLIA [id number] [place] [address] [facility] CASE MANAGEMon 02-26-2024 CASE MANAGEM Normal [facility] CBC W/Diff, Automatedon 02-13 Absolute Neut Normal 2.0-7.7 [facility] Comment on above: Result Comment: Canc elled via OM: Order cancelled - Patient discharged Performed By: #### L 500.2500, L100.0100 #### [facility] [address] [place], [address] HCT Normal 40-54 [facility] Comment on above: Result Comment: Canc elled via OM: Order cancelled - Patient discharged Performed By: #### L 500.2500, L100.0100 #### [facility] [address] [place], [address] HGB Normal 13.0-16.5 [facility] Comment on above: Result Comment: Canc elled via OM: Order cancelled - Patient discharged Performed By: #### L 500.2500, L100.0100 #### [facility] [address] [place], [address] MCH Normal 27.0-32.0 [facility] Comment on above: Result Comment: Canc elled via OM: Order cancelled - Patient discharged Performed By: #### L 500.2500, L100.0100 #### [facility] [address] [place], [address] MCHC Normal 32-36 [facility] Comment on above: Result Comment: Canc elled via OM: Order cancelled - Patient discharged Performed By: #### L 500.2500, L100.0100 #### [facility] [address] [place], [address] MCV Normal 80-94 [facility] Comment on above: Result Comment: Canc elled via OM: Order cancelled - Patient discharged Performed By: #### L 500.2500, L100.0100 #### [facility] [address] [place], [address] NEUT% Normal 47-70 [facility] Comment on above: Result Comment: Canc elled via OM: Order cancelled - Patient discharged Performed By: #### L 500.2500, L100.0100 #### [facility] [address] [place], [address] PLT Normal 150-450 [facility] Comment on above: Result Comment: Canc elled via OM: Order cancelled - Patient discharged Performed By: #### L 500.2500, L100.0100 #### [facility] [address] [place], [address] RBC Normal 4.6-6.2 [facility] Comment on above: Result Comment: Canc elled via OM: Order cancelled - Patient discharged Performed By: #### L 500.2500, L100.0100 #### [facility] [address] [place], [address] RDW CV Normal 11.6-14.6 [facility] Comment on above: Result Comment: Canc elled via OM: Order cancelled - Patient discharged Performed By: #### L 500.2500, L100.0100 #### [facility] [address] [place], [address] RDW SD Normal 35.1-43.9 [facility] Comment on above: Result Comment: Canc elled via OM: Order cancelled - Patient discharged Performed By: #### L 500.2500, L100.0100 #### [facility] [address] [place], [address] WBC Normal 4.4-11.0 [facility] Comment on above: Result Comment: Canc elled via OM: Order cancelled - Patient discharged Performed By: #### L 500.2500, L100.0100 #### [facility] [address] [place], [address] CBC panel Auto (Bld)on 02-25 Erythrocyte distribution width (RBC) [Ratio] 15.1 % High 11.5-15.0 [facility] Comment on above: Order Comment: Speci men Type: BLOOD SPECIMENOrdering Facility: [facility] Address: [address] [place] [address] Performed By: #### 5 8410-2 ####[facility]ATORYCLIA [id number] [address] STATES OF [facility] Hematocrit (Bld) [Volume fraction] 32.1 % Low 39.0-51.0 [facility] Comment on above: Order Comment: Speci men Type: BLOOD SPECIMENOrdering Facility: [facility] Address: [address] [place] [address] Performed By: #### 5 8410-2 ####[facility]ATORYCLIA [id number] [address] [place] Hemoglobin (Bld) [Mass/Vol] 10.4 g/dL Low 13.0-17.0 [facility] Comment on above: Order Comment: Speci men Type: BLOOD SPECIMENOrdering Facility: [facility] Address: [address] [place] [address] Performed By: #### 5 8410-2 ####[facility]ATORYCLIA [id number] [address] [place] MCH (RBC) [Entitic mass] 30.1 pg Normal 26.0-34.0 [facility] Comment on above: Order Comment: Speci men Type: BLOOD SPECIMENOrdering Facility: [facility] Address: [address] [place] [address] Performed By: #### 5 8410-2 ####[facility]ORYCLIA [id number] [address] [place] MCHC (RBC) [Mass/Vol] 32.4 g/dL Normal 30.5-36.0 [facility] Comment on above: Order Comment: Speci men Type: BLOOD SPECIMENOrdering Facility: [facility] Address: [address] [place] [address] Performed By: #### 5 8410-2 ####[facility]ORYCLIA [id number] [address] [place] MCV (RBC) [Entitic vol] 93.0 fL Normal 80.0-100.0 [facility] Comment on above: Order Comment: Speci men Type: BLOOD SPECIMENOrdering Facility: [facility] Address: [address] [place] [address] Performed By: #### 5 8410-2 ####[facility]ORYCLIA [id number] [address] [place] Nucleated RBC (Bld) [#/Vol] 10*3/uL Normal <0.01 [facility] Comment on above: Order Comment: Speci men Type: BLOOD SPECIMENOrdering Facility: [facility] Address: [address] [place] [address] Performed By: #### 5 8410-2 ####[facility]ORYCLIA [id number] [address] [place] Platelet mean volume (Bld) [Entitic vol] 9.8 fL Normal 9.0-12.7 [facility] Comment on above: Order Comment: Speci men Type: BLOOD SPECIMENOrdering Facility: [facility] Address: [address] [place] [address] Performed By: #### 5 8410-2 ####[facility]ORYCLIA [id number] [address] [place] Platelets (Bld) [#/Vol] 202 10*3/uL Normal 150-400 [facility] Comment on above: Order Comment: Speci men Type: BLOOD SPECIMENOrdering Facility: [facility] Address: [address] [place] [address] Performed By: #### 5 8410-2 ####[facility]ORYCLIA [id number] [address] [place] RBC (Bld) [#/Vol] 3.45 10*6/uL Low 4.20-6.00 [facility] Comment on above: Order Comment: Speci men Type: BLOOD SPECIMENOrdering Facility: [facility] Address: [address] [place] [address] Performed By: #### 5 8410-2 ####[facility]ORYCLIA [id number] [address] [place] WBC (Bld) [#/Vol] 14.25 10*3/uL High 3.70-11.00 [facility] Comment on above: Order Comment: Speci men Type: BLOOD SPECIMENOrdering Facility: [facility] Address: [address] [place] [address] Performed By: #### 5 8410-2 ####[facility]ORYCLIA [id number] [address] [place] Hepatic function 2000 panelo n 02-26-2024 Albumin [Mass/Vol] 3.0 g/dL Low 3.9-4.9 [facility] Comment on above: Order Comment: Speci men Type: BLOOD SPECIMENOrdering Facility: [facility] Address: [address] [place] [address] Performed By: #### 2 4325-3 ####[facility]ORYCLIA [id number] [address] [place] ALP [Catalytic activity/Vol] 109 U/L Normal 38-113 [facility] Comment on above: Order Comment: Speci men Type: BLOOD SPECIMENOrdering Facility: [facility] Address: [address] [place] [address] Performed By: #### 2 4325-3 ####[facility]ORYCLIA [id number] [address] [place] ALT With P-5'-P [Catalytic activity/Vol] 29 U/L Normal 10-54 [facility] Comment on above: Order Comment: Speci men Type: BLOOD SPECIMENOrdering Facility: [facility] Address: [address] [place] [address] Performed By: #### 2 4325-3 ####[facility]ORY[facility] [id number] [address] AST With P-5'-P [Catalytic activity/Vol] 21 U/L Normal 14-40 [facility] Comment on above: Order Comment: Speci men Type: BLOOD SPECIMENOrdering Facility: [facility] Address: [address] [place] [address] Performed By: #### 2 4325-3 ####[facility]ORYCLIA [id number] [address] OF [facility] Bilirubin [Mass/Vol] 0.6 mg/dL Normal 0.2-1.3 [facility] Comment on above: Order Comment: Speci men Type: BLOOD SPECIMENOrdering Facility: [facility] Address: [address] [place] [address] Performed By: #### 2 4325-3 ####[facility]ORYCLIA [id number] [address] Bilirubin.conjugated [Mass/Vol] 0.2 mg/dL High <0.2 [facility] Comment on above: Order Comment: Speci men Type: BLOOD SPECIMENOrdering Facility: [facility] Address: [address] [place] [address] Performed By: #### 2 4325-3 ####[facility] LABORATORYCLIA [id number] [address] OF [facility] Protein [Mass/Vol] 5.4 g/dL Low 6.3-8.0 [facility] Comment on above: Order Comment: Speci men Type: BLOOD SPECIMENOrdering Facility: [facility] Address: [address] [place] [address] Performed By: #### 2 4325-3 ####[facility]ORATORYCLIA [id number] [address] OF [facility] THERAPY NTon 02-26-2024 THERAPY NT Normal [facility] THERAPY NT Normal [facility] THERAPY NT Normal [facility] ANES POSTPROC EVALon 024 ANES POSTPROC EVAL Normal [facility] Basic metabolic 2000 panelon 02-25-2024 Anion gap [Moles/Vol] 11 mmol/L Normal 8-15 [facility] Comment on above: Order Comment: Speci men Type: BLOOD SPECIMENOrdering Facility: [facility] Address: [address] [place] [address] Performed By: #### 2 4321-2 ####[facility] LABORATORYCLIA [id number] [place] [address] [place] Calcium [Mass/Vol] 8.7 mg/dL Normal 8.5-10.2 [facility] Comment on above: Order Comment: Speci men Type: BLOOD SPECIMENOrdering Facility: [facility] Address: [address] [place] [address] Performed By: #### 2 4321-2 ####[facility] LABORATORYCLIA [id number] [place] [address] [place] Chloride [Moles/Vol] 102 mmol/L Normal 98-107 [facility] Comment on above: Order Comment: Speci men Type: BLOOD SPECIMENOrdering Facility: [facility] Address: [address] [place] [address] Performed By: #### 2 4321-2 ####[facility] LABORATORYCLIA [id number] [place] [address] [place] CO2 [Moles/Vol] 19 mmol/L Low 22-30 [facility] Comment on above: Order Comment: Speci men Type: BLOOD SPECIMENOrdering Facility: [facility] Address: [address] [place] [address] Performed By: #### 2 4321-2 ####[facility] LABORATORYCLIA [id number] [place] [address] [place] Creatinine [Mass/Vol] 0.76 mg/dL Normal 0.73-1.22 [facility] Comment on above: Order Comment: Speci men Type: BLOOD SPECIMENOrdering Facility: [facility] Address: [address] [place] [address] Performed By: #### 2 4321-2 ####[facility]ITALCLIA [id number] [address] [place] Creatinine and Glomerular filtration rate.predicted panel (S/P/Bld) 88 mL/min/1.73m??? Normal >=60 [facility] Comment on above: Order Comment: Leny patel Type: BLOOD SPECIMENOrdering Facility: [facility] Address: [address] [place] [address] Result Comment: Alexia mated Glomerular Filtration Rate (eGFR) is calculated using the 2020 CKD-EPI creatinine equation. This equation utilizes serum creatinine, sex, and age as parameters. The creatinine assay has traceable calibration to isotope dilution-mass spectrometry. Refer to KDIGO guidelines for clinical interpretation. In patients with unstable renal function, e.g. those with acute kidney injury, the eGFR may not accurately reflect actual GFR. Performed By: #### 2 4321-2 ####[facility] LABORATORYCLIA [id number] [place] [address] [place] Glucose [Mass/Vol] 131 mg/dL High 74-99 [facility] Comment on above: Order Comment: Leny amanda Type: BLOOD SPECIMENOrdering Facility: [facility] Address: [address] [place] [address] Result Comment: The [place] [employer] (ADA) provides guidance for cutoff values for fasting glucose and random glucose. The ADA defines fasting as no caloric intake for at least 8 hours. Fasting plasma glucose results between 100 to 125 mg/dL indicate increased risk for diabetes (prediabetes).Fasting plasma glucose results greater than or equal to 126 mg/dL meet the criteria for diagnosis of diabetes. In the absence of unequivocal hyperglycemia, results should be confirmed by repeat testing. In a patient with classic symptoms of hyperglycemia or hyperglycemic crisis, random plasma glucose results greater than or equal to 200 mg/dL meet the criteria for diagnosis of diabetes.Reference: Standards of Medical Care in Diabetes 2016, [place] [employer]. Diabetes Care. 2016.39(Suppl 1). Performed By: #### 2 4321-2 ####[facility] LABORATORYCLIA [id number] [place] [address] [place] Potassium [Moles/Vol] 4.8 mmol/L Normal 3.7-5.1 [facility] Comment on above: Order Comment: Speci men Type: BLOOD SPECIMENOrdering Facility: [facility] Address: [address] [place] [address] Performed By: #### 2 4321-2 ####[facility] LABORATORYCLIA [id number] [address] [place] Sodium [Moles/Vol] 132 mmol/L Low 136-144 [facility] Comment on above: Order Comment: Speci men Type: BLOOD SPECIMENOrdering Facility: [facility] Address: [address] [place] [address] Performed By: #### 2 4321-2 ####[facility] LABORATORYCLIA [id number] [address] [place] Urea nitrogen [Mass/Vol] 20 mg/dL Normal 9-24 [facility] Comment on above: Order Comment: Speci men Type: BLOOD SPECIMENOrdering Facility: [facility] Address: [address] [place] [address] Performed By: #### 2 4321-2 ####[facility] LABORATORYCLIA [id number] [address] [place] CASE MGT INIT ASSESon 2023 CASE MGT INIT ASSES Normal [facility] CBC panel Auto (Bld)on 02-24 Erythrocyte distribution width (RBC) [Ratio] 15.0 % Normal 11.5-15.0 [facility] Comment on above: Order Comment: Speci men Type: BLOOD SPECIMENOrdering Facility: [facility] Address: [address] [place] [address] Performed By: #### 5 8410-2 ####[facility] LABORATORYCLIA [id number] [address] [place] Hematocrit (Bld) [Volume fraction] 39.1 % Normal 39.0-51.0 [facility] Comment on above: Order Comment: Speci men Type: BLOOD SPECIMENOrdering Facility: [facility] Address: [address] [place] [address] Performed By: #### 5 8410-2 ####[facility] LABORATORYCLIA [id number] [address] STATES OF [facility] Hemoglobin (Bld) [Mass/Vol] 12.9 g/dL Low 13.0-17.0 [facility] Comment on above: Order Comment: Speci men Type: BLOOD SPECIMENOrdering Facility: [facility] Address: [address] [place] [address] Performed By: #### 5 8410-2 ####[facility] LABORATORYCLIA [id number] [address] [place] MCH (RBC) [Entitic mass] 30.4 pg Normal 26.0-34.0 [facility] Comment on above: Order Comment: Speci men Type: BLOOD SPECIMENOrdering Facility: [facility] Address: [address] [place] [address] Performed By: #### 5 8410-2 ####[facility] LABORATORYCLIA [id number] [address] [place] MCHC (RBC) [Mass/Vol] 33.0 g/dL Normal 30.5-36.0 [facility] Comment on above: Order Comment: Speci men Type: BLOOD SPECIMENOrdering Facility: [facility] Address: [address] [place] [address] Performed By: #### 5 8410-2 ####[facility] LABORATORYCLIA [id number] [address] [place] MCV (RBC) [Entitic vol] 92.2 fL Normal 80.0-100.0 [facility] Comment on above: Order Comment: Speci men Type: BLOOD SPECIMENOrdering Facility: [facility] Address: [address] [place] [address] Performed By: #### 5 8410-2 ####[facility] LABORATORYCLIA [id number] [address] [place] Nucleated RBC (Bld) [#/Vol] 10*3/uL Normal <0.01 [facility] Comment on above: Order Comment: Speci men Type: BLOOD SPECIMENOrdering Facility: [facility] Address: [address] [place] [address] Performed By: #### 5 8410-2 ####[facility] LABORATORYCLIA [id number] [place] [address] [place] Platelet mean volume (Bld) [Entitic vol] 9.7 fL Normal 9.0-12.7 [facility] Comment on above: Order Comment: Speci men Type: BLOOD SPECIMENOrdering Facility: [facility] Address: [address] [place] [address] Performed By: #### 5 8410-2 ####[facility] LABORATORYCLIA [id number] [address] [place] Platelets (Bld) [#/Vol] 306 10*3/uL Normal 150-400 [facility] Comment on above: Order Comment: Speci men Type: BLOOD SPECIMENOrdering Facility: [facility] Address: [address] [place] [address] Performed By: #### 5 8410-2 ####[facility] LABORATORYCLIA [id number] [address] [place] RBC (Bld) [#/Vol] 4.24 10*6/uL Normal 4.20-6.00 [facility] Comment on above: Order Comment: Speci men Type: BLOOD SPECIMENOrdering Facility: [facility] Address: [address] [place] [address] Performed By: #### 5 8410-2 ####[facility] LABORATORYCLIA [id number] [address] [place] WBC (Bld) [#/Vol] 22.23 10*3/uL High 3.70-11.00 [facility] Comment on above: Order Comment: Speci men Type: BLOOD SPECIMENOrdering Facility: [facility] Address: [address] [place] [address] Performed By: #### 5 8410-2 ####[facility] LABORATORYCLIA [id number] [place] [address] [place] CONSULTon 02-25-2024 CONSULT Normal [facility] CONSULT Normal [facility] ECG COMPLETEon 02-25-2024 ECG COMPLETE Normal [facility] NURSING PROGon 02-25-2024 NURSING PROG Normal [facility] NUTRITIONon 02-25-2024 NUTRITION Normal [facility] THERAPY NTon 02-25-2024 THERAPY NT Normal [facility] ALLIED HEALTHon 02-24-2024 ALLIED HEALTH Normal [facility] ANES PRE-OPon 02-24-2024 ANES PRE-OP Normal [facility] CBC panel Auto (Bld)on 02-23 Erythrocyte distribution width (RBC) [Ratio] 14.8 % Normal 11.5-15.0 [facility] Comment on above: Order Comment: Speci men Type: BLOOD SPECIMENOrdering Facility: [facility] Address: [address] [place] [address] Performed By: #### 5 8410-2 ####[facility] LABORATORYCLIA [id number] [place] [address] [place] Hematocrit (Bld) [Volume fraction] 41.1 % Normal 39.0-51.0 [facility] Comment on above: Order Comment: Speci men Type: BLOOD SPECIMENOrdering Facility: [facility] Address: [address] [place] [address] Performed By: #### 5 8410-2 ####[facility] LABORATORYCLIA [id number] [place] [address] [place] Hemoglobin (Bld) [Mass/Vol] 13.3 g/dL Normal 13.0-17.0 [facility] Comment on above: Order Comment: Speci men Type: BLOOD SPECIMENOrdering Facility: [facility] Address: [address] [place] [address] Performed By: #### 5 8410-2 ####[facility]ORATORYCLIA [id number] [address] MCH (RBC) [Entitic mass] 29.7 pg Normal 26.0-34.0 [facility] Comment on above: Order Comment: Speci men Type: BLOOD SPECIMENOrdering Facility: [facility] Address: [address] [place] [address] Performed By: #### 5 8410-2 ####[facility] LABORATORYCLIA [id number] [address] MCHC (RBC) [Mass/Vol] 32.4 g/dL Normal 30.5-36.0 [facility] Comment on above: Order Comment: Speci men Type: BLOOD SPECIMENOrdering Facility: [facility] Address: [address] [place] [address] Performed By: #### 5 8410-2 ####[facility]ORATORYCLIA [id number] [address] MCV (RBC) [Entitic vol] 91.7 fL Normal 80.0-100.0 [facility] Comment on above: Order Comment: Speci men Type: BLOOD SPECIMENOrdering Facility: [facility] Address: [address] [place] [address] Performed By: #### 5 8410-2 ####[facility] LABORATORYCLIA [id number] [address] Nucleated RBC (Bld) [#/Vol] 10*3/uL Normal <0.01 [facility] Comment on above: Order Comment: Speci men Type: BLOOD SPECIMENOrdering Facility: [facility] Address: [address] [place] [address] Performed By: #### 5 8410-2 ####[facility] LABORATORYCLIA [id number] [address] Platelet mean volume (Bld) [Entitic vol] 9.6 fL Normal 9.0-12.7 [facility] Comment on above: Order Comment: Speci men Type: BLOOD SPECIMENOrdering Facility: [facility] Address: [address] [place] [address] Performed By: #### 5 8410-2 ####[facility] LABORATORYCLIA [id number] [address] OF [facility] Platelets (Bld) [#/Vol] 311 10*3/uL Normal 150-400 [facility] Comment on above: Order Comment: Speci men Type: BLOOD SPECIMENOrdering Facility: [facility] Address: [address] [place] [address] Performed By: #### 5 8410-2 ####[facility]ORATORYCLIA [id number] [address] OF [facility] RBC (Bld) [#/Vol] 4.48 10*6/uL Normal 4.20-6.00 [facility] Comment on above: Order Comment: Speci men Type: BLOOD SPECIMENOrdering Facility: [facility] Address: [address] [place] [address] Performed By: #### 5 8410-2 ####[facility] LABORATORYCLIA [id number] [address] OF [facility] WBC (Bld) [#/Vol] 29.86 10*3/uL High 3.70-11.00 [facility] Comment on above: Order Comment: Speci men Type: BLOOD SPECIMENOrdering Facility: [facility] Address: [address] [place] [address] Performed By: #### 5 8410-2 ####[facility] LABORATORYCLIA [id number] [address] CONFIRM BLOOD TYPEon 024 ABO O Normal [facility] Comment on above: Order Comment: Speci men Type: BLOOD SPECIMENOrdering Facility: [facility] Address: [address] [place] [address] Performed By: #### C ONABO ####[facility] BLOOD BANKCLIA [id number] [address] OF [place] Rh Nom (Bld) Positive Normal [facility] Comment on above: Order Comment: Speci men Type: BLOOD SPECIMENOrdering Facility: [facility] Address: [address] [place] [address] Performed By: #### C ONAB ####[facility] BLOOD BANKCLIA [id number] [address] OF [facility] OPERATIVE NOon 02-24-2024 OPERATIVE NO Normal [facility] SURGICAL PATHOLOGYon 024 CASE REPORT Normal [facility] Comment on above: Order Comment: Speci men Type: TISSUE SPECIMENOrdering Facility: [facility] Address: [address] [place] [address] Result Comment: Surg ical Pathology Report Case: [id number] Provider: Aleksandra Izquierdo MD Collected: 02/24/2024 11:11 AMOrdering Location: [facility] Received: 02/25/2024 10:27 AMPathologist: Toñito Yun MDSpecimen: Gallbladder Performed By: #### S ####[facility] LABORATORYCLIA [id number] [address] OF [facility] CLINICAL HISTORY Normal [facility] Comment on above: Order Comment: Speci men Type: TISSUE SPECIMENOrdering Facility: [facility] Address: [address] [place] [address] Result Comment: Pre- op diagnosis:Acute acalculous cholecystitis [K81.0] Performed By: #### S ####[facility]ORATORYCLIA [id number] [address] OF [facility] FINAL DIAGNOSIS Normal [facility] Comment on above: Order Comment: Speci men Type: TISSUE SPECIMENOrdering Facility: [facility] Address: [address] [place] [address] Result Comment: A. G allbladder, cholecystectomy:- Acute cholecystitis and focal cholesterolosis. Performed By: #### S ####[facility] LABORATORYCLIA [id number] [address] OF [place] FINAL PERFORMING LAB Normal [facility] Comment on above: Order Comment: Speci men Type: TISSUE SPECIMENOrdering Facility: [facility] Address: [address] [place] [address] Result Comment: Diag nostic interpretation performed at [facility], [address] [place] [address] CLIA# [id number] Director: Louis Avila M.D. Performed By: #### S ####[facility] LABORATORYCLIA [id number] [address] OF [place] GROSS DESCRIPTION A. Gallbladder Normal [facility] Comment on above: Order Comment: Speci men Type: TISSUE SPECIMENOrdering Facility: [facility] Address: [address] [place] [address] Result Comment: Rece ived in formalin labeled gallbladder is a specimen consisting of a previously opened and disrupted gallbladder measuring 7.5 x 4.0 x 1.7 cm. The serosal surface is dull red-brar, hemorrhagic, roughened and displays adhesions. An area resembling a possible portion of the cystic duct is identified. The wall the specimen measures 0.2 cm in thickness. Calculi are not present. A calculus is not impacted in the cystic duct. The mucosal surface is dull trejo-red and ischemic in appearance. Spout Liner Helper sections with possible portion of cystic duct are submitted in formalin in 1 cassette. Gross examination performed at [facility], [address] [place], [place] [address]KVB February 25, 2024 2:05 PM Performed By: #### S ####[facility] LABORATORYCLIA [id number] [address] [place] TYPE + SCREENon 02-24-2024 ABO O Normal [facility] Comment on above: Order Comment: Speci men Type: BLOOD SPECIMENOrdering Facility: [facility] Address: [address] [place] [address] Performed By: #### T SCR ####[facility] BLOOD BANKCLIA [id number] [place] [address] [place] Rh Nom (Bld) Positive Normal [facility] Comment on above: Order Comment: Speci men Type: BLOOD SPECIMENOrdering Facility: [facility] Address: [address] [place] [address] Performed By: #### T SCR ####[facility] BLOOD BANKCLIA [id number] [place] [address] [facility] OF [place] TYPE AND SCREEN EXPIRATION 02/27/2024 23:59 Normal [facility] Comment on above: Order Comment: Speci men Type: BLOOD SPECIMENOrdering Facility: [facility] Address: [address] [place] [address] Performed By: #### T SCR ####[facility] BLOOD BANKCLIA [id number] [place] [address] [facility] CNPNon 02-22-2024 CNPN [facility] NURSING PROGon 02-22-2024 NURSING PROG [facility] Basic Metabolic Profile (BMP )on 02-19-2024 BUN Normal 7-18 [facility] Comment on above: Result Comment: Canc elled via OM: Order cancelled - Patient discharged Performed By: #### L 100.0100, L500.2500 #### [facility] [address] [facility] [address] BUN/CRE Normal 10-20 [facility] Comment on above: Result Comment: Canc elled via OM: Order cancelled - Patient discharged Performed By: #### L 100.0100, L500.2500 #### [facility] [address] [place], [address] CA,Total Normal 8.5-10.1 [facility] Comment on above: Result Comment: Canc elled via OM: Order cancelled - Patient discharged Performed By: #### L 100.0100, L500.2500 #### [facility] [address] [place], [address] CL Normal 98-107 [facility] Comment on above: Result Comment: Canc elled via OM: Order cancelled - Patient discharged Performed By: #### L 100.0100, L500.2500 #### [facility] [address] [place], [address] CO2 Normal 21.0-32.0 [facility] Comment on above: Result Comment: Canc elled via OM: Order cancelled - Patient discharged Performed By: #### L 100.0100, L500.2500 #### [facility] [address] [place], [address] CREAT,SERUM Normal 0.70-1.30 [facility] Comment on above: Result Comment: Canc elled via OM: Order cancelled - Patient discharged Performed By: #### L 100.0100, L500.2500 #### [facility] [address] [place], [address] EST GFR Normal >60 [facility] Comment on above: Result Comment: Canc elled via OM: Order cancelled - Patient discharged Performed By: #### L 100.0100, L500.2500 #### [facility] [address] [place], [address] EST GFR - AA Normal >60 [facility] Comment on above: Result Comment: Canc elled via OM: Order cancelled - Patient discharged Performed By: #### L 100.0100, L500.2500 #### [facility] [address] [place], [address] GAP Normal 5-15 [facility] Comment on above: Result Comment: Canc elled via OM: Order cancelled - Patient discharged Performed By: #### L 100.0100, L500.2500 #### [facility] [address] [place], [address] GLU Normal 74-106 [facility] Comment on above: Result Comment: Canc elled via OM: Order cancelled - Patient discharged Performed By: #### L 100.0100, L500.2500 #### [facility] [address] [place], [address] Potassium Normal 3.5-5.1 [facility] Comment on above: Result Comment: Canc elled via OM: Order cancelled - Patient discharged Performed By: #### L 100.0100, L500.2500 #### [facility] [address] [place], [address] Basic Metabolic Profile (BMP) Normal 136-145 [facility] Comment on above: Result Comment: Canc elled via OM: Order cancelled - Patient discharged Performed By: #### L 100.0100, L500.2500 #### [facility] [address] [place], [address] CBC W Auto Differential pane l (Bld)on 02-19-2024 Basophils (Bld) [#/Vol] 0.16 10*3/uL High <0.11 [facility] Comment on above: Order Comment: Speci men Type: BLOOD SPECIMENOrdering Facility: [facility] Address: [address] [place] [address] Performed By: #### 5 7021-8 ####[facility] LABORATORYCLIA [id number] [place] [address] [place] Basophils/100 WBC (Bld) 1.3 % Normal [facility] Comment on above: Order Comment: Speci men Type: BLOOD SPECIMENOrdering Facility: [facility] Address: [address] [place] [address] Performed By: #### 5 7021-8 ####[facility]ORATORYCLIA [id number] [place] [id number] [place] Differential cell count method Nom (Bld) Auto Normal [facility] Comment on above: Order Comment: Speci men Type: BLOOD SPECIMENOrdering Facility: [facility] Address: [facility] [place] [address] Performed By: #### 5 7021-8 ####[facility]ORATORYCLIA [id number] [place] [address] [place] Eosinophils (Bld) [#/Vol] 0.58 10*3/uL High <0.46 [facility] Comment on above: Order Comment: Speci men Type: BLOOD SPECIMENOrdering Facility: [facility] Address: [address] [place] [address] Performed By: #### 5 7021-8 ####[facility]ORATORYCLIA [id number] [address] STATES [facility] Eosinophils/100 WBC (Bld) 4.6 % Normal [facility] Comment on above: Order Comment: Speci men Type: BLOOD SPECIMENOrdering Facility: [facility] Address: [address] [place] [address] Performed By: #### 5 7021-8 ####[facility]ORATORYCLIA [id number] [address] [place] Erythrocyte distribution width (RBC) [Ratio] 14.6 % Normal 11.5-15.0 [facility] Comment on above: Order Comment: Speci men Type: BLOOD SPECIMENOrdering Facility: [facility] Address: [address] [place] [address] Performed By: #### 5 7021-8 ####[facility]ORATORYCLIA [id number] [address] [place] Hematocrit (Bld) [Volume fraction] 43.1 % Normal 39.0-51.0 [facility] Comment on above: Order Comment: Speci men Type: BLOOD SPECIMENOrdering Facility: [facility] Address: [address] [place] [address] Performed By: #### 5 7021-8 ####[facility]ORATORYCLIA [id number] [address] [place] Hemoglobin (Bld) [Mass/Vol] 13.8 g/dL Normal 13.0-17.0 [facility] Comment on above: Order Comment: Speci men Type: BLOOD SPECIMENOrdering Facility: [facility] Address: [address] [place] [address] Performed By: #### 5 7021-8 ####[facility]ORYCLIA [id number] [address] [place] Immature granulocytes (Bld) [#/Vol] 0.12 10*3/uL High <0.10 [facility] Comment on above: Order Comment: Speci men Type: BLOOD SPECIMENOrdering Facility: [facility] Address: [address] [place] [address] Performed By: #### 5 7021-8 ####[facility]ORYCLIA [id number] [address] Immature granulocytes/100 WBC (Bld) 0.9 % Normal [facility] Comment on above: Order Comment: Speci men Type: BLOOD SPECIMENOrdering Facility: [facility] Address: [address] [place] [address] Performed By: #### 5 7021-8 ####[facility]ORATORYCLIA [id number] [address] Lymphocytes (Bld) [#/Vol] 1.64 10*3/uL Normal 1.00-4.00 [facility] Comment on above: Order Comment: Speci men Type: BLOOD SPECIMENOrdering Facility: [facility] Address: [address] [place] [address] Performed By: #### 5 7021-8 ####[facility]ORATORYCLIA [id number] [address] Lymphocytes/100 WBC (Bld) 12.9 % Normal [facility] Comment on above: Order Comment: Speci men Type: BLOOD SPECIMENOrdering Facility: [facility] Address: [address] [place] [address] Performed By: #### 5 7021-8 ####[facility]ORYCLIA [id number] [address] [place] MCH (RBC) [Entitic mass] 29.8 pg Normal 26.0-34.0 [facility] Comment on above: Order Comment: Speci men Type: BLOOD SPECIMENOrdering Facility: [facility] Address: [address] [place] [address] Performed By: #### 5 7021-8 ####[facility]ORATORYCLIA [id number] [address] STATES OF [facility] MCHC (RBC) [Mass/Vol] 32.0 g/dL Normal 30.5-36.0 [facility] Comment on above: Order Comment: Speci men Type: BLOOD SPECIMENOrdering Facility: [facility] Address: [address] [place] [address] Performed By: #### 5 7021-8 ####[facility]ORATORYCLIA [id number] [address] [place] MCV (RBC) [Entitic vol] 93.1 fL Normal 80.0-100.0 [facility] Comment on above: Order Comment: Speci men Type: BLOOD SPECIMENOrdering Facility: [facility] Address: [address] [place] [address] Performed By: #### 5 7021-8 ####[facility]ATORYCLIA [id number] [address] [place] Monocytes (Bld) [#/Vol] 0.90 10*3/uL High <0.87 [facility] Comment on above: Order Comment: Speci men Type: BLOOD SPECIMENOrdering Facility: [facility] Address: [address] [place] [address] Performed By: #### 5 7021-8 ####[facility]ATORYCLIA [id number] [address] STATES [facility] Monocytes/100 WBC (Bld) 7.1 % Normal [facility] Comment on above: Order Comment: Speci men Type: BLOOD SPECIMENOrdering Facility: [facility] Address: [address] [place] [address] Performed By: #### 5 7021-8 ####[facility]ATORYCLIA [id number] [address] [place] Neutrophils (Bld) [#/Vol] 9.32 10*3/uL High 1.45-7.50 [facility] Comment on above: Order Comment: Speci men Type: BLOOD SPECIMENOrdering Facility: [facility] Address: [address] [place] [address] Performed By: #### 5 7021-8 ####[facility]ATORYCLIA [id number] [address] STATES OF [facility] Neutrophils/100 WBC (Bld) 73.2 % Normal [facility] Comment on above: Order Comment: Speci men Type: BLOOD SPECIMENOrdering Facility: [facility] Address: [address] [place] [address] Performed By: #### 5 7021-8 ####[facility]ATORYCLIA [id number] [address] [place] Nucleated RBC (Bld) [#/Vol] 10*3/uL Normal <0.01 [facility] Comment on above: Order Comment: Speci men Type: BLOOD SPECIMENOrdering Facility: [facility] Address: [address] [place] [address] Performed By: #### 5 7021-8 ####[facility]ATORYCLIA [id number] [address] [place] Nucleated RBC/100 WBC (Bld) [Ratio] 0.0 /100 WBC Normal [facility] Comment on above: Order Comment: Speci men Type: BLOOD SPECIMENOrdering Facility: [facility] Address: [address] [place] [address] Performed By: #### 5 7021-8 ####[facility]ATORYCLIA [id number] [address] [place] Platelet mean volume (Bld) [Entitic vol] 9.5 fL Normal 9.0-12.7 [facility] Comment on above: Order Comment: Speci men Type: BLOOD SPECIMENOrdering Facility: [facility] Address: [address] [place] [address] Performed By: #### 5 7021-8 ####[facility]ATORYCLIA [id number] [address] [place] Platelets (Bld) [#/Vol] 270 10*3/uL Normal 150-400 [facility] Comment on above: Order Comment: Speci men Type: BLOOD SPECIMENOrdering Facility: [facility] Address: [address] [place], [place] [address] Performed By: #### 5 7021-8 ####[facility]ATORYCLIA [id number] [place] [address] [place] [facility] RBC (Bld) [#/Vol] 4.63 10*6/uL Normal 4.20-6.00 [facility] Comment on above: Order Comment: Speci men Type: BLOOD SPECIMENOrdering Facility: [facility] Address: [address] [place] [address] Performed By: #### 5 7021-8 ####[facility]ATORYCLIA [id number] [address] [place] WBC (Bld) [#/Vol] 12.72 10*3/uL High 3.70-11.00 [facility] Comment on above: Order Comment: Speci men Type: BLOOD SPECIMENOrdering Facility: [facility] Address: [address] [place] [address] Performed By: #### 5 7021-8 ####[facility]ATORYCLIA [id number] [address] [place] CBC W/Diff, Automatedon 12-0 -2023 Absolute Neut Normal 2.0-7.7 [facility] Comment on above: Result Comment: Canc elled via OM: Order cancelled - Patient discharged Performed By: #### L 100.0100, L500.2500 #### [facility] [address] [facility] [address] HCT Normal 40-54 [facility] Comment on above: Result Comment: Canc elled via OM: Order cancelled - Patient discharged Performed By: #### L 100.0100, L500.2500 #### [facility] [address] [place], [address] HGB Normal 13.0-16.5 [facility] Comment on above: Result Comment: Canc elled via OM: Order cancelled - Patient discharged Performed By: #### L 100.0100, L500.2500 #### [facility] [address] [place], [address] MCH Normal 27.0-32.0 [facility] Comment on above: Result Comment: Canc elled via OM: Order cancelled - Patient discharged Performed By: #### L 100.0100, L500.2500 #### [facility] [address] [place], [address] MCHC Normal 32-36 [facility] Comment on above: Result Comment: Canc elled via OM: Order cancelled - Patient discharged Performed By: #### L 100.0100, L500.2500 #### [facility] [address] [place], [address] MCV Normal 80-94 [facility] Comment on above: Result Comment: Canc elled via OM: Order cancelled - Patient discharged Performed By: #### L 100.0100, L500.2500 #### [facility] [address] [place], [address] NEUT% Normal 47-70 [facility] Comment on above: Result Comment: Canc elled via OM: Order cancelled - Patient discharged Performed By: #### L 100.0100, L500.2500 #### [facility] [address] [place], [address] PLT Normal 150-450 [facility] Comment on above: Result Comment: Canc elled via OM: Order cancelled - Patient discharged Performed By: #### L 100.0100, L500.2500 #### [facility] [address] [place], [address] RBC Normal 4.6-6.2 [facility] Comment on above: Result Comment: Canc elled via OM: Order cancelled - Patient discharged Performed By: #### L 100.0100, L500.2500 #### [facility] [address] [place], [address] RDW CV Normal 11.6-14.6 [facility] Comment on above: Result Comment: Canc elled via OM: Order cancelled - Patient discharged Performed By: #### L 100.0100, L500.2500 #### [facility] [address] [place], [address] RDW SD Normal 35.1-43.9 [facility] Comment on above: Result Comment: Canc elled via OM: Order cancelled - Patient discharged Performed By: #### L 100.0100, L500.2500 #### [facility] [address] [place], [address] WBC Normal 4.4-11.0 [facility] Comment on above: Result Comment: Canc elled via OM: Order cancelled - Patient discharged Performed By: #### L 100.0100, L500.2500 #### [facility] [address] [place], [address] Comprehensive metabolic 2000 panelon 02-19-2024 Albumin [Mass/Vol] 4.2 g/dL 3.9 - 4.9 g/dL [facility] ALP [Catalytic activity/Vol] 144 U/L High 38 - 113 U/L [facility] ALT With P-5'-P [Catalytic activity/Vol] 35 U/L 10 - 54 U/L [facility] Anion gap [Moles/Vol] 12 mmol/L 8 - 15 mmol/L [facility] AST With P-5'-P [Catalytic activity/Vol] 24 U/L 14 - 40 U/L [facility] Bilirubin [Mass/Vol] 0.4 mg/dL 0.2 - 1 .3 mg/dL [facility] Calcium [Mass/Vol] 9.8 mg/dL 8.5 - 10. 2 mg/dL [facility] Chloride [Moles/Vol] 101 mmol/L 98 - 10 7 mmol/L [facility] CO2 [Moles/Vol] 24 mmol/L 22 - 30 mmol/L [facility] Creatinine [Mass/Vol] 0.80 mg/dL 0.73 - 1.22 mg/dL [facility] GFR/1.73 sq M.predicted among non-blacks MDRD (S/P/Bld) [Vol rate/Area] 87 mL/min/{1.73_m2} - PINF [facility] Comment on above: Estimated Glomerular Filtration Rate (eGFR) is calculated using the 2020 CKD-EPI creatinine equation. This equation utilizes serum creatinine, sex, and age as parameters. The creatinine assay has traceable calibration to isotope dilution-mass spectrometry. Refer to KDIGO guidelines for clinical interpretation. In patients with unstable renal function, e.g. those with acute kidney injury, the eGFR may not accurately reflect actual GFR. Glucose [Mass/Vol] 121 mg/dL High 74 - 99 mg/dL [facility] Comment on above: The [place] Di[employer] s Association (ADA) provides guidance for cutoff values for fasting glucose and random glucose. The ADA defines fasting as no caloric intake for at least 8 hours. Fasting plasma glucose results between 100 to 125 mg/dL indicate increased risk for diabetes (prediabetes). Fasting plasma glucose results greater than or equal to 126 mg/dL meet the criteria for diagnosis of diabetes. In the absence of unequivocal hyperglycemia, results should be confirmed by repeat testing. In a patient with classic symptoms of hyperglycemia or hyperglycemic crisis, random plasma glucose results greater than or equal to 200 mg/dL meet the criteria for diagnosis of diabetes. Reference: Standards of Medical Care in Diabetes 2016, [place] [employer]. Diabetes Care. 2016.39(Suppl 1). Interpretation and review of laboratory results Abnormal [facility] Potassium [Moles/Vol] 4.1 mmol/L 3.7 - 5.1 mmol/L [facility] Protein [Mass/Vol] 7.0 g/dL 6.3 - 8.0 g/dL [facility] Sodium [Moles/Vol] 137 mmol/L 136 - 144 mmol/L [facility] Urea nitrogen [Mass/Vol] 16 mg/dL 9 - 24 mg/dL [facility] Albumin [Mass/Vol] 4.2 g/dL Normal 3.9-4.9 [facility] Comment on above: Order Comment: Speci men Type: BLOOD SPECIMENOrdering Facility: [facility] Address: [address] [place] [address] Performed By: #### 2 4323-8 ####[facility]ORATORYCLIA [id number] [place] [address] [place] ALP [Catalytic activity/Vol] 144 U/L High 38-113 [facility] Comment on above: Order Comment: Speci men Type: BLOOD SPECIMENOrdering Facility: [facility] Address: [address] [place] [address] Performed By: #### 2 4323-8 ####[facility] LABORATORYCLIA [id number] [address] [place] ALT With P-5'-P [Catalytic activity/Vol] 35 U/L Normal 10-54 [facility] Comment on above: Order Comment: Speci men Type: BLOOD SPECIMENOrdering Facility: [facility] Address: [address] [place] [address] Performed By: #### 2 4323-8 ####[facility]ORYCLIA [id number] [address] STATES OF [facility] Anion gap [Moles/Vol] 12 mmol/L Normal 8-15 [facility] Comment on above: Order Comment: Speci men Type: BLOOD SPECIMENOrdering Facility: [facility] Address: [address] [place] [address] Performed By: #### 2 4323-8 ####[facility]ORYCLIA [id number] [address] [place] AST With P-5'-P [Catalytic activity/Vol] 24 U/L Normal 14-40 [facility] Comment on above: Order Comment: Speci men Type: BLOOD SPECIMENOrdering Facility: [facility] Address: [address] [place] [address] Performed By: #### 2 4323-8 ####[facility]ORYCLIA [id number] [address] [place] Bilirubin [Mass/Vol] 0.4 mg/dL Normal 0.2-1.3 [facility] Comment on above: Order Comment: Speci men Type: BLOOD SPECIMENOrdering Facility: [facility] Address: [address] [place] [address] Performed By: #### 2 4323-8 ####[facility]ORYCLIA [id number] [place] [address] [place] Calcium [Mass/Vol] 9.8 mg/dL Normal 8.5-10.2 [facility] Comment on above: Order Comment: Speci men Type: BLOOD SPECIMENOrdering Facility: [facility] Address: [address] [place] [address] Performed By: #### 2 4323-8 ####[facility]ORYCLIA [id number] [place] [address] [place] Chloride [Moles/Vol] 101 mmol/L Normal 98-107 [facility] Comment on above: Order Comment: Speci men Type: BLOOD SPECIMENOrdering Facility: [facility] Address: [address] [place] [address] Performed By: #### 2 4323-8 ####[facility]ORYCLIA [id number] [place] [address] [place] CO2 [Moles/Vol] 24 mmol/L Normal 22-30 [facility] Comment on above: Order Comment: Speci men Type: BLOOD SPECIMENOrdering Facility: [facility] Address: [address] [place] [address] Performed By: #### 2 4323-8 ####[facility]ORYCLIA [id number] [place] [address] [place] Creatinine [Mass/Vol] 0.80 mg/dL Normal 0.73-1.22 [facility] Comment on above: Order Comment: Speci men Type: BLOOD SPECIMENOrdering Facility: [facility] Address: [address] [place] [address] Performed By: #### 2 4323-8 ####[facility]ORYCLIA [id number] [place] [address] [place] Creatinine and Glomerular filtration rate.predicted panel (S/P/Bld) 87 mL/min/1.73m??? Normal >=60 [facility] Comment on above: Order Comment: Leny patel Type: BLOOD SPECIMENOrdering Facility: [facility] Address: [address] [place] [address] Result Comment: Alexia mated Glomerular Filtration Rate (eGFR) is calculated using the 2020 CKD-EPI creatinine equation. This equation utilizes serum creatinine, sex, and age as parameters. The creatinine assay has traceable calibration to isotope dilution-mass spectrometry. Refer to KDIGO guidelines for clinical interpretation. In patients with unstable renal function, e.g. those with acute kidney injury, the eGFR may not accurately reflect actual GFR. Performed By: #### 2 4323-8 ####[facility]ORYCLIA [id number] [place] [address] [place] Glucose [Mass/Vol] 121 mg/dL High 74-99 [facility] Comment on above: Order Comment: Leny patel Type: BLOOD SPECIMENOrdering Facility: [facility] Address: [address] [place] [address] Result Comment: The [place] Diabetes [employer] (ADA) provides guidance for cutoff values for fasting glucose and random glucose. The ADA defines fasting as no caloric intake for at least 8 hours. Fasting plasma glucose results between 100 to 125 mg/dL indicate increased risk for diabetes (prediabetes).Fasting plasma glucose results greater than or equal to 126 mg/dL meet the criteria for diagnosis of diabetes. In the absence of unequivocal hyperglycemia, results should be confirmed by repeat testing. In a patient with classic symptoms of hyperglycemia or hyperglycemic crisis, random plasma glucose results greater than or equal to 200 mg/dL meet the criteria for diagnosis of diabetes.Reference: Standards of Medical Care in Diabetes 2016, [place] [employer]. Diabetes Care. 2016.39(Suppl 1). Performed By: #### 2 4323-8 ####[facility]ATORYCLIA [id number] [place] [address] [place] Potassium [Moles/Vol] 4.1 mmol/L Normal 3.7-5.1 [facility] Comment on above: Order Comment: Leny patel Type: BLOOD SPECIMENOrdering Facility: [facility] Address: [address] [place] [id number] Performed By: #### 2 4323-8 ####[facility]ATORYCLIA [id number] [place] [id number] [place] Protein [Mass/Vol] 7.0 g/dL Normal 6.3-8.0 [facility] Comment on above: Order Comment: Speci men Type: BLOOD SPECIMENOrdering Facility: [facility] Address: [address] [place] [address] Performed By: #### 2 4323-8 ####[facility]ORYCLIA [id number] [place] [id number] [place] Sodium [Moles/Vol] 137 mmol/L Normal 136-144 [facility] Comment on above: Order Comment: Speci men Type: BLOOD SPECIMENOrdering Facility: [facility] Address: [address] [place] [address] Performed By: #### 2 4323-8 ####[facility]ORYCLIA [id number] [place] [id number] [place] Urea nitrogen [Mass/Vol] 16 mg/dL Normal 9-24 [facility] Comment on above: Order Comment: Speci men Type: BLOOD SPECIMENOrdering Facility: [facility] Address: [address] [place] [address] Performed By: #### 2 4323-8 ####[facility]ORYCLIA [id number] [place] [id number] [place] HISTORY PHYSICALon HISTORY PHYSICAL Normal [facility] CNOVon 02-15-2024 CNOV Normal [facility] Basic Metabolic Profile (BMP )on 02-12-2024 BUN Normal 7-18 [facility] Comment on above: Result Comment: Canc elled via OM: Order cancelled - Patient discharged Performed By: #### L 100.0100, L500.2500 #### [facility] [address] [facility] [place], [place], [id number] BUN/CRE Normal 10-20 [facility] Comment on above: Result Comment: Canc elled via OM: Order cancelled - Patient discharged Performed By: #### L 100.0100, L500.2500 #### [facility] [address] [place], [address] CA,Total Normal 8.5-10.1 [facility] Comment on above: Result Comment: Canc elled via OM: Order cancelled - Patient discharged Performed By: #### L 100.0100, L500.2500 #### [facility] [address] [place], [address] CL Normal 98-107 [facility] Comment on above: Result Comment: Canc elled via OM: Order cancelled - Patient discharged Performed By: #### L 100.0100, L500.2500 #### [facility] [address] [place], [address] CO2 Normal 21.0-32.0 [facility] Comment on above: Result Comment: Canc elled via OM: Order cancelled - Patient discharged Performed By: #### L 100.0100, L500.2500 #### [facility] [address] [place], [address] CREAT,SERUM Normal 0.70-1.30 [facility] [facility] Comment on above: Result Comment: Canc elled via OM: Order cancelled - Patient discharged Performed By: #### L 100.0100, L500.2500 #### [facility] [address] [place], [address] EST GFR Normal >60 [facility] Comment on above: Result Comment: Canc elled via OM: Order cancelled - Patient discharged Performed By: #### L 100.0100, L500.2500 #### [facility] [address] [place], [address] EST GFR - AA Normal >60 [facility] Comment on above: Result Comment: Canc elled via OM: Order cancelled - Patient discharged Performed By: #### L 100.0100, L500.2500 #### [facility] [address] [place], [address] GAP Normal 5-15 [facility] Comment on above: Result Comment: Canc elled via OM: Order cancelled - Patient discharged Performed By: #### L 100.0100, L500.2500 #### [facility] [address] [place], [address] GLU Normal 74-106 [facility] Comment on above: Result Comment: Canc elled via OM: Order cancelled - Patient discharged Performed By: #### L 100.0100, L500.2500 #### [facility] [address] [place], [address] Potassium Normal 3.5-5.1 [facility] Comment on above: Result Comment: Canc elled via OM: Order cancelled - Patient discharged Performed By: #### L 100.0100, L500.2500 #### [facility] [address] [place], [address] Basic Metabolic Profile (BMP) Normal 136-145 [facility] Comment on above: Result Comment: Canc elled via OM: Order cancelled - Patient discharged Performed By: #### L 100.0100, L500.2500 #### [facility] [address] [place], [address] CBC W/Diff, Automatedon 11-2 Absolute Neut Normal 2.0-7.7 [facility] Comment on above: Result Comment: Canc elled via OM: Order cancelled - Patient discharged Performed By: #### L 100.0100, L500.2500 #### [facility] [address] [place], [address] HCT Normal 40-54 [facility] Comment on above: Result Comment: Canc elled via OM: Order cancelled - Patient discharged Performed By: #### L 100.0100, L500.2500 #### [facility] [address] [place], [address] HGB Normal 13.0-16.5 [facility] Comment on above: Result Comment: Canc elled via OM: Order cancelled - Patient discharged Performed By: #### L 100.0100, L500.2500 #### [facility] [address] [place], [address] MCH Normal 27.0-32.0 [facility] Comment on above: Result Comment: Canc elled via OM: Order cancelled - Patient discharged Performed By: #### L 100.0100, L500.2500 #### [facility] [address] [place], [address] MCHC Normal 32-36 [facility] Comment on above: Result Comment: Canc elled via OM: Order cancelled - Patient discharged Performed By: #### L 100.0100, L500.2500 #### [facility] [address] [place], [address] MCV Normal 80-94 [facility] Comment on above: Result Comment: Canc elled via OM: Order cancelled - Patient discharged Performed By: #### L 100.0100, L500.2500 #### [facility] [address] [place], [address] NEUT% Normal 47-70 [facility] Comment on above: Result Comment: Canc elled via OM: Order cancelled - Patient discharged Performed By: #### L 100.0100, L500.2500 #### [facility] [address] [place], [address] PLT Normal 150-450 [facility] Comment on above: Result Comment: Canc elled via OM: Order cancelled - Patient discharged Performed By: #### L 100.0100, L500.2500 #### [facility] [address] [place], [address] RBC Normal 4.6-6.2 [facility] Comment on above: Result Comment: Canc elled via OM: Order cancelled - Patient discharged Performed By: #### L 100.0100, L500.2500 #### [facility] [address] [place], [address] RDW CV Normal 11.6-14.6 [facility] Comment on above: Result Comment: Canc elled via OM: Order cancelled - Patient discharged Performed By: #### L 100.0100, L500.2500 #### [facility] [address] [place], [address] RDW SD Normal 35.1-43.9 [facility] Comment on above: Result Comment: Canc elled via OM: Order cancelled - Patient discharged Performed By: #### L 100.0100, L500.2500 #### [facility] [address] [place], [address] WBC Normal 4.4-11.0 [facility] Comment on above: Result Comment: Canc elled via OM: Order cancelled - Patient discharged Performed By: #### L 100.0100, L500.2500 #### [facility] [address] [place], [address] ALLIED HEALTHon 02-09-2024 ALLIED HEALTH Normal [facility] ALLIED HEALTH Normal [facility] CBC W Auto Differential pane l (Bld)on 02-09-2024 Basophils (Bld) [#/Vol] 0.11 10*3/uL High <0.11 [facility] Comment on above: Order Comment: Speci men Type: BLOOD SPECIMENOrdering Facility: [facility] Address: [address] [place] [address] Performed By: #### 5 7021-8 ####[facility] LABCLIA [id number] [place] [address] [place] Basophils/100 WBC (Bld) 1.0 % Normal [facility] Comment on above: Order Comment: Speci men Type: BLOOD SPECIMENOrdering Facility: [facility] Address: [address] [place] [address] Performed By: #### 5 7021-8 ####[facility] LABCLIA [id number] [place] [address] [place] Differential cell count method Nom (Bld) Auto Normal [facility] Comment on above: Order Comment: Speci men Type: BLOOD SPECIMENOrdering Facility: [facility] Address: [address] [place] [address] Performed By: #### 5 7021-8 ####[facility] LABCLIA [id number] [place] [address] [place] Eosinophils (Bld) [#/Vol] 0.68 10*3/uL High <0.46 [facility] Comment on above: Order Comment: Speci men Type: BLOOD SPECIMENOrdering Facility: [facility] Address: [address] [place] [address] Performed By: #### 5 7021-8 ####[facility] LABCLIA [id number] [place] [address] [place] Eosinophils/100 WBC (Bld) 6.1 % Normal [facility] Comment on above: Order Comment: Speci men Type: BLOOD SPECIMENOrdering Facility: [facility] Address: [address] [place] [address] Performed By: #### 5 7021-8 ####[facility] LABCLIA [id number] [place] [address] [place] Erythrocyte distribution width (RBC) [Ratio] 14.3 % Normal 11.5-15.0 [facility] Comment on above: Order Comment: Speci men Type: BLOOD SPECIMENOrdering Facility: [facility] Address: [address] [place] [address] Performed By: #### 5 7021-8 ####[facility] LABCLIA [id number] [place] [address] [place] Hematocrit (Bld) [Volume fraction] 40.4 % Normal 39.0-51.0 [facility] Comment on above: Order Comment: Speci men Type: BLOOD SPECIMENOrdering Facility: [facility] Address: [address] [place] [address] Performed By: #### 5 7021-8 ####[facility] LABCLIA [id number] [place] [address] [place] Hemoglobin (Bld) [Mass/Vol] 12.8 g/dL Low 13.0-17.0 [facility] Comment on above: Order Comment: Speci men Type: BLOOD SPECIMENOrdering Facility: [facility] Address: [address] [place] [address] Performed By: #### 5 7021-8 ####[facility] LABCLIA [id number] [place] [address] [place] Immature granulocytes (Bld) [#/Vol] 0.04 10*3/uL Normal <0.10 [facility] Comment on above: Order Comment: Speci men Type: BLOOD SPECIMENOrdering Facility: [facility] Address: [address] [place] [address] Performed By: #### 5 7021-8 ####[facility] LABCLIA [id number] [place] [address] [place] Immature granulocytes/100 WBC (Bld) 0.4 % Normal [facility] Comment on above: Order Comment: Speci men Type: BLOOD SPECIMENOrdering Facility: [facility] Address: [address] [place] [address] Performed By: #### 5 7021-8 ####[facility] LABCLIA [id number] [place] [address] [place] Lymphocytes (Bld) [#/Vol] 1.28 10*3/uL Normal 1.00-4.00 [facility] Comment on above: Order Comment: Speci men Type: BLOOD SPECIMENOrdering Facility: [facility] Address: [address] [place] [address] Performed By: #### 5 7021-8 ####[facility] LABCLIA [id number] [place] [address] [place] OF [facility] Lymphocytes/100 WBC (Bld) 11.5 % Normal [facility] Comment on above: Order Comment: Speci men Type: BLOOD SPECIMENOrdering Facility: [facility] Address: [address] [place] [address] Performed By: #### 5 7021-8 ####[facility] LABCLIA [id number] [place] [address] [place] MCH (RBC) [Entitic mass] 29.6 pg Normal 26.0-34.0 [facility] Comment on above: Order Comment: Speci men Type: BLOOD SPECIMENOrdering Facility: [facility] Address: [address] [place] [address] Performed By: #### 5 7021-8 ####[facility] LABCLIA [id number] [place] [address] [place] MCHC (RBC) [Mass/Vol] 31.7 g/dL Normal 30.5-36.0 [facility] Comment on above: Order Comment: Speci men Type: BLOOD SPECIMENOrdering Facility: [facility] Address: [address] [place] [address] Performed By: #### 5 7021-8 ####[facility] LABCLIA [id number] [place] [address] [place] MCV (RBC) [Entitic vol] 93.5 fL Normal 80.0-100.0 [facility] Comment on above: Order Comment: Speci men Type: BLOOD SPECIMENOrdering Facility: [facility] Address: [address] [place] [address] Performed By: #### 5 7021-8 ####[facility] LABCLIA [id number] [place] [address] [place] Monocytes (Bld) [#/Vol] 0.93 10*3/uL High <0.87 [facility] Comment on above: Order Comment: Speci men Type: BLOOD SPECIMENOrdering Facility: [facility] Address: [address] [place] [address] Performed By: #### 5 7021-8 ####[facility] LABCLIA [id number] [place] [address] [place] Monocytes/100 WBC (Bld) 8.3 % Normal [facility] Comment on above: Order Comment: Speci men Type: BLOOD SPECIMENOrdering Facility: [facility] Address: [address] [place] [address] Performed By: #### 5 7021-8 ####[facility] LABCLIA [id number] [place] [address] [place] Neutrophils (Bld) [#/Vol] 8.12 10*3/uL High 1.45-7.50 [facility] Comment on above: Order Comment: Speci men Type: BLOOD SPECIMENOrdering Facility: [facility] Address: [address] [place] [address] Performed By: #### 5 7021-8 ####[facility] LABCLIA [id number] [place] [address] [place] Neutrophils/100 WBC (Bld) 72.7 % Normal [facility] Comment on above: Order Comment: Speci men Type: BLOOD SPECIMENOrdering Facility: [facility] Address: [address] [place] [address] Performed By: #### 5 7021-8 ####[facility] LABCLIA [id number] [place] [address] [place] Nucleated RBC (Bld) [#/Vol] Normal [facility] Comment on above: Order Comment: Speci men Type: BLOOD SPECIMENOrdering Facility: [facility] Address: [address] [place] [address] Performed By: #### 5 7021-8 ####[facility] LABCLIA [id number] [place] [address] [place] Nucleated RBC/100 WBC (Bld) [Ratio] Normal [facility] Comment on above: Order Comment: Speci men Type: BLOOD SPECIMENOrdering Facility: [facility] Address: [address] [place] [address] Performed By: #### 5 7021-8 ####[facility] LABCLIA [id number] [place] [address] [place] Platelet mean volume (Bld) [Entitic vol] 9.2 fL Normal 9.0-12.7 [facility] Comment on above: Order Comment: Speci men Type: BLOOD SPECIMENOrdering Facility: [facility] Address: [address] [place] [address] Performed By: #### 5 7021-8 ####[facility] LABCLIA [id number] [place] [address] [place] Platelets (Bld) [#/Vol] 271 10*3/uL Normal 150-400 [facility] Comment on above: Order Comment: Speci men Type: BLOOD SPECIMENOrdering Facility: [facility] Address: [address] [place] [address] Performed By: #### 5 7021-8 ####[facility] LABCLIA [id number] [place] [address] [place] RBC (Bld) [#/Vol] 4.32 10*6/uL Normal 4.20-6.00 [facility] Comment on above: Order Comment: Speci men Type: BLOOD SPECIMENOrdering Facility: [facility] Address: [address] [place] [address] Performed By: #### 5 7021-8 ####[facility] LABCLIA [id number] [place] [address] [place] WBC (Bld) [#/Vol] 11.16 10*3/uL High 3.70-11.00 [facility] Comment on above: Order Comment: Speci men Type: BLOOD SPECIMENOrdering Facility: [facility] Address: [address] [place] [id number] Performed By: #### 5 7021-8 ####[facility] LABCLIA [id number] [place] [address] [place] CNPNon 02-09-2024 CNPN Normal [facility] CT ABD/PEL W IVCONon 024 CT ABD/PEL W IVCON Normal [facility] Comprehensive metabolic 2000 panelon 02-09-2024 Albumin [Mass/Vol] 3.8 g/dL Low 3.9-4.9 [facility] Comment on above: Order Comment: Speci men Type: BLOOD SPECIMENOrdering Facility: [facility] Address: [address] [place] [address] Performed By: #### 2 4323-8, 3040-3 ####[facility] LABCLIA [id number] [place] [address] [place] ALP [Catalytic activity/Vol] 110 U/L Normal 38-113 [facility] Comment on above: Order Comment: Speci men Type: BLOOD SPECIMENOrdering Facility: [facility] Address: [address] [place] [address] Performed By: #### 2 4323-8, 3040-3 ####[facility] LABCLIA [id number] [place] [address] [place] ALT [Catalytic activity/Vol] 42 U/L Normal 10-54 [facility] Comment on above: Order Comment: Speci men Type: BLOOD SPECIMENOrdering Facility: [facility] Address: [address] [place] [id number] Performed By: #### 2 4323-8, 3040-3 ####[facility] LABCLIA [id number] [place] [address] [place] Anion gap [Moles/Vol] 7 mmol/L Low 8-15 [facility] Comment on above: Order Comment: Speci men Type: BLOOD SPECIMENOrdering Facility: [facility] Address: [address] [place] [address] Performed By: #### 2 4323-8, 3039-3 ####[facility] LABCLIA [id number] [place] [address] [place] AST [Catalytic activity/Vol] 37 U/L Normal 14-40 [facility] Comment on above: Order Comment: Speci men Type: BLOOD SPECIMENOrdering Facility: [facility] Address: [address] [place] [address] Performed By: #### 2 43238, 3039-3 ####[facility] [employer] LABCLIA [id number] [place] [address] [place] Bilirubin [Mass/Vol] 0.5 mg/dL Normal 0.2-1.3 [facility] Comment on above: Order Comment: Speci men Type: BLOOD SPECIMENOrdering Facility: [facility] Address: [address] [place] [address] Result Comment: Use of this assay is not recommended for patients undergoing treatment with eltrombopag due to the potential for falsely elevated results. Performed By: #### 2 4323-8, 3039-3 ####[facility] LABCLIA [id number] [place] [address] [place] Calcium [Mass/Vol] 9.3 mg/dL Normal 8.5-10.2 [facility] Comment on above: Order Comment: Speci men Type: BLOOD SPECIMENOrdering Facility: [facility] Address: [address] [place] [address] Performed By: #### 2 4323-8, 3039-3 ####[facility] LABCLIA [id number] [place] [address] [place] Chloride [Moles/Vol] 104 mmol/L Normal 98-107 [facility] Comment on above: Order Comment: Speci men Type: BLOOD SPECIMENOrdering Facility: [facility] Address: [address] [place] [address] Performed By: #### 2 4323-8, 3040-3 ####[facility] LABCLIA [id number] [place] [address] [place] CO2 [Moles/Vol] 26 mmol/L Normal 22-30 [facility] Comment on above: Order Comment: Speci men Type: BLOOD SPECIMENOrdering Facility: [facility] Address: [address] [place] [address] Performed By: #### 2 4323-8, 3040-3 ####[facility] LABIA [id number] [place] [address] [facility] Creatinine [Mass/Vol] 0.94 mg/dL Normal 0.73-1.22 [facility] Comment on above: Order Comment: Speci men Type: BLOOD SPECIMENOrdering Facility: [facility] Address: [address] [place] [address] Result Comment: Use of this assay is not recommended for patients undergoing treatment with phenindione, due to the potential for falsely depressed results. Performed By: #### 2 4323-8, 3040-3 ####[facility] LABIA [id number] [place] [address] [place] [facility] Creatinine and Glomerular filtration rate.predicted panel (S/P/Bld) 79 mL/min/1.73m??? Normal >=60 [facility] Comment on above: Order Comment: Speci men Type: BLOOD SPECIMENOrdering Facility: [facility] Address: [address] [place] [address] Result Comment: Alexia mated Glomerular Filtration Rate (eGFR) is calculated using the 2020 CKD-EPI creatinine equation. This equation utilizes serum creatinine, sex, and age as parameters. The creatinine assay has traceable calibration to isotope dilution-mass spectrometry. Refer to KDIGO guidelines for clinical interpretation. In patients with unstable renal function, e.g. those with acute kidney injury, the eGFR may not accurately reflect actual GFR. Performed By: #### 2 4323-8, 0-3 ####[facility] [employer] LABCLIA [id number] [place] [address] [place] Glucose [Mass/Vol] 110 mg/dL High 74-99 [facility] Comment on above: Order Comment: Specestrella men Type: BLOOD SPECIMENOrdering Facility: [facility] Address: [address] [place], [place] [address] Result Comment: The [place] [employer] (ADA) provides guidance for cutoff values for fasting glucose and random glucose. The ADA defines fasting as no caloric intake for at least 8 hours. Fasting plasma glucose results between 100 to 125 mg/dL indicate increased risk for diabetes (prediabetes).Fasting plasma glucose results greater than or equal to 126 mg/dL meet the criteria for diagnosis of diabetes. In the absence of unequivocal hyperglycemia, results should be confirmed by repeat testing. In a patient with classic symptoms of hyperglycemia or hyperglycemic crisis, random plasma glucose results greater than or equal to 200 mg/dL meet the criteria for diagnosis of diabetes.Reference: Standards of Medical Care in Diabetes 2016, [place] [employer]. Diabetes Care. 2016.39(Suppl 1). Performed By: #### 2 4323-8, 3039-3 ####[facility] [employer] LABCLIA [id number] [place] [address] [place] Potassium [Moles/Vol] 4.1 mmol/L Normal 3.7-5.1 [facility] Comment on above: Order Comment: Speci men Type: BLOOD SPECIMENOrdering Facility: [facility] Address: [address] [place] [address] Performed By: #### 2 4323-8, 3039-3 ####[facility] [employer] LABCLIA [id number] [place] [address] [place] Protein [Mass/Vol] 6.7 g/dL Normal 6.3-8.0 [facility] Comment on above: Order Comment: Speci men Type: BLOOD SPECIMENOrdering Facility: [facility] Address: [address] [place] [address] Performed By: #### 2 4323-8, 3040-3 ####[facility] LABCLIA [id number] [place] [address] [place] [facility] Sodium [Moles/Vol] 137 mmol/L Normal 136-144 [facility] Comment on above: Order Comment: Speci men Type: BLOOD SPECIMENOrdering Facility: [facility] Address: [address] [place] [address] Performed By: #### 2 4323-8, 3039-3 ####JENNIFERKAI [facility] LABCLIA [id number] [place] [address] [place] Urea nitrogen [Mass/Vol] 12 mg/dL Normal 9-24 [facility] Comment on above: Order Comment: Speci men Type: BLOOD SPECIMENOrdering Facility: [facility] Address: [address] [place] [address] Performed By: #### 2 4323-8, 3039-3 ####[facility]ENNIFERKAI [facility] LABCLIA [id number] [place] [address] [place] ED PROV NOTEon 02-09-2024 ED PROV NOTE Normal [facility] ED PROV NOTE Normal [facility] Lipase SerPl-cCncon 02-09-20 24 Lipase [Catalytic activity/Vol] 25 U/L Normal 16-61 [facility] Comment on above: Order Comment: Speci men Type: BLOOD SPECIMENOrdering Facility: [facility] Address: [address] [place] [address] Performed By: #### 2 4323-8, 3039-3 ####[facility] LABCLIA [id number] [place] [address] [place] SEPSIS LACTATEon 02-09-2024 Lactate [Moles/Vol] 1.5 mmol/L Normal <=2.0 [facility] Comment on above: Order Comment: Speci men Type: BLOOD SPECIMENOrdering Facility: [facility] Address: [address] [place] [address] Performed By: #### S LACT ####[facility] LABCLIA [id number] [place] [address] [facility] [place] Urinalysis complete panel (U )on 02-09-2024 Bilirubin Ql (U) Negative Normal Negative [facility] Comment on above: Order Comment: Speci men Type: URINE SPECIMENOrdering Facility: [facility] Address: [address] [place] [address] Performed By: #### 2 4356-8 ####[facility] LABCLIA [id number] [place] [address] [facility] Clarity (Unsp spec) Clear Normal Clear [facility] Comment on above: Order Comment: Speci men Type: URINE SPECIMENOrdering Facility: [facility] Address: [address] [place] [address] Performed By: #### 2 4356-8 ####[facility] LABCLIA [id number] [place] [address] [facility] Color (U) Yellow Normal Yellow [facility] Comment on above: Order Comment: Speci men Type: URINE SPECIMENOrdering Facility: [facility] Address: [address] [place] [address] Performed By: #### 2 4356-8 ####[facility] LABCLIA [id number] [place] [address] [facility] OF [place] Glucose Test strip (U) [Mass/Vol] 4+ Abnormal Trace, Negative [facility] Comment on above: Order Comment: Speci men Type: URINE SPECIMENOrdering Facility: [facility] Address: [address] [place] [address] Performed By: #### 2 4356-8 ####[facility] LABCLIA [id number] [place] [id number] [place] Hemoglobin Ql (U) Negative Normal Negative, Trace [facility] Comment on above: Order Comment: Speci men Type: URINE SPECIMENOrdering Facility: [facility] Address: [address] [place] [address] Performed By: #### 2 4356-8 ####[facility] LABCLIA [id number] [place] [id number] [place] Hyaline casts (Urine sed) [#/Area] 1-3 /LPF Abnormal 0 /LPF [facility] Comment on above: Order Comment: Speci men Type: URINE SPECIMENOrdering Facility: [facility] Address: [address] [place] [address] Performed By: #### 2 4356-8 ####[facility] LABCLIA [id number] [address] STATES [facility] Ketones Ql (U) Negative Normal Negative, Trace [facility] Comment on above: Order Comment: Speci men Type: URINE SPECIMENOrdering Facility: [facility] Address: [address] [place] [address] Performed By: #### 2 4356-8 ####[facility] LABCLIA [id number] [place] [id number] [facility] [place] Leukocyte esterase Test strip Ql (U) Normal [facility] Comment on above: Order Comment: Speci men Type: URINE SPECIMENOrdering Facility: [facility] Address: [address] [place] [address] Result Comment: Incr eased amounts of glucose can falsely decrease leukocyte esterase results in place of Leukocyte Esterase when Glucose is 3+ or greater. Performed By: #### 2 4356-8 ####[facility] LABCLIA [id number] [place] [id number] [place] Nitrite Ql (U) Negative Normal Negative [facility] Comment on above: Order Comment: Speci men Type: URINE SPECIMENOrdering Facility: [facility] Address: [address] [place] [address] Performed By: #### 2 4356-8 ####[facility] LABCLIA [id number] [place] [id number] [facility] pH (U) 5.5 [pH] Normal 5.0-8.0 [facility] Comment on above: Order Comment: Speci men Type: URINE SPECIMENOrdering Facility: [facility] Address: [address] [place] [address] Performed By: #### 2 4356-8 ####[facility] LABCLIA [id number] [place] [id number] [facility] Protein (U) [Mass/Vol] Trace Normal Trace , Negative [facility] Comment on above: Order Comment: Speci men Type: URINE SPECIMENOrdering Facility: [facility] Address: [address] [place] [address] Performed By: #### 2 4356-8 ####[facility] LABCLIA [id number] [place] [id number] [facility] RBC LM.HPF (Urine sed) [#/Area] 0-3 /HPF Normal 0-3 /HPF [facility] Comment on above: Order Comment: Speci men Type: URINE SPECIMENOrdering Facility: [facility] Address: [address] [place] [address] Performed By: #### 2 4356-8 ####[facility] LABIA [id number] [place] [id number] [facility] Specific gravity (U) [Rel density] 1.020 Normal 1.005-1.03 0 [facility] Comment on above: Order Comment: Speci men Type: URINE SPECIMENOrdering Facility: [facility] Address: [address] [place] [address] Performed By: #### 2 4356-8 ####[facility] LABCLIA [id number] [place] [id number] [place] Urobilinogen Ql (U) Normal Normal Normal [facility] Comment on above: Order Comment: Speci men Type: URINE SPECIMENOrdering Facility: [facility] Address: [address] [place], [place] [address] Performed By: #### 2 4356-8 ####[facility] LABCLIA [id number] [place] [address] [place] WBC LM.HPF (Urine sed) [#/Area] 0-5 /HPF Normal 0-5 /HPF [facility] Comment on above: Order Comment: Speci men Type: URINE SPECIMENOrdering Facility: [facility] Address: [address] [place], [place] [address] Performed By: #### 2 4356-8 ####[facility] LABCLIA [id number] [place] [id number] [place] XR CHEST 1V FRONTALon 2023 XR CHEST 1V FRONTAL Normal [facility] CNCOon 02-08-2024 CNCO Letter Text Normal [facility] CNPNon 02-08-2024 CNPN Normal [facility] Basic Metabolic Profile (BMP )on 02-05-2024 BUN Normal -18 [facility] Comment on above: Result Comment: Canc elled via OM: Order cancelled - Patient discharged Performed By: #### L 100.0100, L500.2500 #### [facility] [address] [place], [address] BUN/CRE Normal 10-20 [facility] Comment on above: Result Comment: Canc elled via OM: Order cancelled - Patient discharged Performed By: #### L 100.0100, L500.2500 #### [facility] [address] [place], [address] CA,Total Normal 8.5-10.1 [facility] Comment on above: Result Comment: Canc elled via OM: Order cancelled - Patient discharged Performed By: #### L 100.0100, L500.2500 #### [facility] [address] [place], [address] CL Normal 98-107 [facility] Comment on above: Result Comment: Canc elled via OM: Order cancelled - Patient discharged Performed By: #### L 100.0100, L500.2500 #### [facility] [address] [place], [address] CO2 Normal 21.0-32.0 [facility] Comment on above: Result Comment: Canc elled via OM: Order cancelled - Patient discharged Performed By: #### L 100.0100, L500.2500 #### [facility] [address] [place], [address] CREAT,SERUM Normal 0.70-1.30 [facility] Comment on above: Result Comment: Canc elled via OM: Order cancelled - Patient discharged Performed By: #### L 100.0100, L500.2500 #### [facility] [address] [place], [address] EST GFR Normal >60 [facility] Comment on above: Result Comment: Canc elled via OM: Order cancelled - Patient discharged Performed By: #### L 100.0100, L500.2500 #### [facility] [address] [place], [address] EST GFR - AA Normal >60 [facility] Comment on above: Result Comment: Canc elled via OM: Order cancelled - Patient discharged Performed By: #### L 100.0100, L500.2500 #### [facility] [address] [place], [address] GAP Normal 5-15 [facility] Comment on above: Result Comment: Canc elled via OM: Order cancelled - Patient discharged Performed By: #### L 100.0100, L500.2500 #### [facility] [address] [place], [address] GLU Normal 74-106 [facility] Comment on above: Result Comment: Canc elled via OM: Order cancelled - Patient discharged Performed By: #### L 100.0100, L500.2500 #### [facility] [address] [place], [address] Potassium Normal 3.5-5.1 [facility] Comment on above: Result Comment: Canc elled via OM: Order cancelled - Patient discharged Performed By: #### L 100.0100, L500.2500 #### [facility] [address] [place], [address] Basic Metabolic Profile (BMP) Normal 136-145 [facility] Comment on above: Result Comment: Canc elled via OM: Order cancelled - Patient discharged Performed By: #### L 100.0100, L500.2500 #### [facility] [address] [place], [address] CBC W/Diff, Automatedon 11-2 Absolute Neut Normal 2.0-7.7 [facility] Comment on above: Result Comment: Canc elled via OM: Order cancelled - Patient discharged Performed By: #### L 100.0100, L500.2500 #### [facility] [address] [place], [address] HCT Normal 40-54 [facility] Comment on above: Result Comment: Canc elled via OM: Order cancelled - Patient discharged Performed By: #### L 100.0100, L500.2500 #### [facility] [address] [place], [address] HGB Normal 13.0-16.5 [facility] Comment on above: Result Comment: Canc elled via OM: Order cancelled - Patient discharged Performed By: #### L 100.0100, L500.2500 #### [facility] [address] [place], [address] MCH Normal 27.0-32.0 [facility] Comment on above: Result Comment: Canc elled via OM: Order cancelled - Patient discharged Performed By: #### L 100.0100, L500.2500 #### [facility] [address] [place], [address] MCHC Normal 32-36 [facility] Comment on above: Result Comment: Canc elled via OM: Order cancelled - Patient discharged Performed By: #### L 100.0100, L500.2500 #### [facility] [address] [place], [address] MCV Normal 80-94 [facility] Comment on above: Result Comment: Canc elled via OM: Order cancelled - Patient discharged Performed By: #### L 100.0100, L500.2500 #### [facility] [address] [place], [address] NEUT% Normal 47-70 [facility] Comment on above: Result Comment: Canc elled via OM: Order cancelled - Patient discharged Performed By: #### L 100.0100, L500.2500 #### [facility] [address] [place], [address] PLT Normal 150-450 [facility] Comment on above: Result Comment: Canc elled via OM: Order cancelled - Patient discharged Performed By: #### L 100.0100, L500.2500 #### [facility] [address] [place], [address] RBC Normal 4.6-6.2 [facility] Comment on above: Result Comment: Canc elled via OM: Order cancelled - Patient discharged Performed By: #### L 100.0100, L500.2500 #### [facility] [address] [place], [address] RDW CV Normal 11.6-14.6 [facility] Comment on above: Result Comment: Canc elled via OM: Order cancelled - Patient discharged Performed By: #### L 100.0100, L500.2500 #### [facility] [address] [place], [address] RDW SD Normal 35.1-43.9 [facility] Comment on above: Result Comment: Canc elled via OM: Order cancelled - Patient discharged Performed By: #### L 100.0100, L500.2500 #### [facility] [address] [place], [address] WBC Normal 4.4-11.0 [facility] Comment on above: Result Comment: Canc elled via OM: Order cancelled - Patient discharged Performed By: #### L 100.0100, L500.2500 #### [facility] [address] [place], [address] CNPNon 02-05-2024 CNPN Normal [facility] CNOVon 02-03-2024 CNOV Normal [facility] Basic Metabolic Profile (BMP )on 01-29-2024 BUN Normal 7-18 [facility] Comment on above: Result Comment: Canc elled via OM: Order cancelled - Patient discharged Performed By: #### L 500.2500, L100.0100 #### [facility] [address] [place], [address] BUN/CRE Normal 10-20 [facility] Comment on above: Result Comment: Canc elled via OM: Order cancelled - Patient discharged Performed By: #### L 500.2500, L100.0100 #### [facility] [address] [place], [address] CA,Total Normal 8.5-10.1 [facility] Comment on above: Result Comment: Canc elled via OM: Order cancelled - Patient discharged Performed By: #### L 500.2500, L100.0100 #### [facility] [address] [place], [address] CL Normal 98-107 [facility] Comment on above: Result Comment: Canc elled via OM: Order cancelled - Patient discharged Performed By: #### L 500.2500, L100.0100 #### [facility] [address] [place], [address] CO2 Normal 21.0-32.0 [facility] Comment on above: Result Comment: Canc elled via OM: Order cancelled - Patient discharged Performed By: #### L 500.2500, L100.0100 #### [facility] [address] [place], [address] CREAT,SERUM Normal 0.70-1.30 [facility] Comment on above: Result Comment: Canc elled via OM: Order cancelled - Patient discharged Performed By: #### L 500.2500, L100.0100 #### [facility] [address] [place], [address] EST GFR Normal >60 [facility] Comment on above: Result Comment: Canc elled via OM: Order cancelled - Patient discharged Performed By: #### L 500.2500, L100.0100 #### [facility] [address] [place], [address] EST GFR - AA Normal >60 [facility] Comment on above: Result Comment: Canc elled via OM: Order cancelled - Patient discharged Performed By: #### L 500.2500, L100.0100 #### [facility] [address] [place], [address] GAP Normal 5-15 [facility] Comment on above: Result Comment: Canc elled via OM: Order cancelled - Patient discharged Performed By: #### L 500.2500, L100.0100 #### [facility] [address] [place], [address] GLU Normal 74-106 [facility] Comment on above: Result Comment: Canc elled via OM: Order cancelled - Patient discharged Performed By: #### L 500.2500, L100.0100 #### [facility] [address] [place], [address] Potassium Normal 3.5-5.1 [facility] Comment on above: Result Comment: Canc elled via OM: Order cancelled - Patient discharged Performed By: #### L 500.2500, L100.0100 #### [facility] [address] [place], [address] Basic Metabolic Profile (BMP) Normal 136-145 [facility] Comment on above: Result Comment: Canc elled via OM: Order cancelled - Patient discharged Performed By: #### L 500.2500, L100.0100 #### [facility] [address] [place], [address] CBC W/Diff, Automatedon 11-1 Absolute Neut Normal 2.0-7.7 [facility] Comment on above: Result Comment: Canc elled via OM: Order cancelled - Patient discharged Performed By: #### L 500.2500, L100.0100 #### [facility] [address] [place], [address] HCT Normal 40-54 [facility] Comment on above: Result Comment: Canc elled via OM: Order cancelled - Patient discharged Performed By: #### L 500.2500, L100.0100 #### [facility] [address] [place], [address] HGB Normal 13.0-16.5 [facility] Comment on above: Result Comment: Canc elled via OM: Order cancelled - Patient discharged Performed By: #### L 500.2500, L100.0100 #### [facility] [address] [place], [address] MCH Normal 27.0-32.0 [facility] Comment on above: Result Comment: Canc elled via OM: Order cancelled - Patient discharged Performed By: #### L 500.2500, L100.0100 #### [facility] [address] [place], [address] MCHC Normal 32-36 [facility] Comment on above: Result Comment: Canc elled via OM: Order cancelled - Patient discharged Performed By: #### L 500.2500, L100.0100 #### [facility] [address] [place], [address] MCV Normal 80-94 [facility] Comment on above: Result Comment: Canc elled via OM: Order cancelled - Patient discharged Performed By: #### L 500.2500, L100.0100 #### [facility] [address] [place], [address] NEUT% Normal 47-70 [facility] Comment on above: Result Comment: Canc elled via OM: Order cancelled - Patient discharged Performed By: #### L 500.2500, L100.0100 #### [facility] [address] [place], [address] PLT Normal 150-450 [facility] Comment on above: Result Comment: Canc elled via OM: Order cancelled - Patient discharged Performed By: #### L 500.2500, L100.0100 #### [facility] [address] [place], [address] RBC Normal 4.6-6.2 [facility] Comment on above: Result Comment: Canc elled via OM: Order cancelled - Patient discharged Performed By: #### L 500.2500, L100.0100 #### [facility] [address] [place], [address] RDW CV Normal 11.6-14.6 [facility] Comment on above: Result Comment: Canc elled via OM: Order cancelled - Patient discharged Performed By: #### L 500.2500, L100.0100 #### [facility] [address] [place], [address] RDW SD Normal 35.1-43.9 [facility] Comment on above: Result Comment: Canc elled via OM: Order cancelled - Patient discharged Performed By: #### L 500.2500, L100.0100 #### [facility] [address] [place], [address] WBC Normal 4.4-11.0 [facility] Comment on above: Result Comment: Canc elled via OM: Order cancelled - Patient discharged Performed By: #### L 500.2500, L100.0100 #### [facility] [address] [place], [address] Basic Metabolic Profile (BMP )on 01-28-2024 BUN Normal 7-18 [facility] Comment on above: Result Comment: Canc elled via OM: Order cancelled - Patient discharged Performed By: #### L 100.0100, L500.2500 ####[facility] [address] [place], [address] BUN/CRE Normal 10-20 [facility] Comment on above: Result Comment: Canc elled via OM: Order cancelled - Patient discharged Performed By: #### L 100.0100, L500.2500 ####[facility] [address] [place], [address] CA,Total Normal 8.5-10.1 [facility] Comment on above: Result Comment: Canc elled via OM: Order cancelled - Patient discharged Performed By: #### L 100.0100, L500.2500 ####[facility] [address] [place], [address] CL Normal 98-107 [facility] Comment on above: Result Comment: Canc elled via OM: Order cancelled - Patient discharged Performed By: #### L 100.0100, L500.2500 ####[facility] [address] [place], [address] CO2 Normal 21.0-32.0 [facility] Comment on above: Result Comment: Canc elled via OM: Order cancelled - Patient discharged Performed By: #### L 100.0100, L500.2500 ####[facility] [address] [place], [address] CREAT,SERUM Normal 0.70-1.30 [facility] Comment on above: Result Comment: Canc elled via OM: Order cancelled - Patient discharged Performed By: #### L 100.0100, L500.2500 ####[facility] [address] [place], [address] EST GFR Normal >60 [facility] Comment on above: Result Comment: Canc elled via OM: Order cancelled - Patient discharged Performed By: #### L 100.0100, L500.2500 ####[facility] [address] [place], [address] EST GFR - AA Normal >60 [facility] Comment on above: Result Comment: Canc elled via OM: Order cancelled - Patient discharged Performed By: #### L 100.0100, L500.2500 ####[facility] [address] [place], [address] GAP Normal 5-15 [facility] Comment on above: Result Comment: Canc elled via OM: Order cancelled - Patient discharged Performed By: #### L 100.0100, L500.2500 ####[facility] [address] [place], [address] GLU Normal 74-106 [facility] Comment on above: Result Comment: Canc elled via OM: Order cancelled - Patient discharged Performed By: #### L 100.0100, L500.2500 ####[facility] [address] [place], [address] Potassium Normal 3.5-5.1 [facility] Comment on above: Result Comment: Canc elled via OM: Order cancelled - Patient discharged Performed By: #### L 100.0100, L500.2500 ####[facility] [address] [place], [address] Basic Metabolic Profile (BMP) Normal 136-145 [facility] Comment on above: Result Comment: Canc elled via OM: Order cancelled - Patient discharged Performed By: #### L 100.0100, L500.2500 ####[facility] [address] [place], [address] CBC W/Diff, Automatedon 11- Absolute Neut Normal 2.0-7.7 [facility] Comment on above: Result Comment: Canc elled via OM: Order cancelled - Patient discharged Performed By: #### L 100.0100, L500.2500 ####[facility] [address] [place], [address] HCT Normal 40-54 [facility] Comment on above: Result Comment: Canc elled via OM: Order cancelled - Patient discharged Performed By: #### L 100.0100, L500.2500 ####[facility] [address] [place], [address] HGB Normal 13.0-16.5 [facility] Comment on above: Result Comment: Canc elled via OM: Order cancelled - Patient discharged Performed By: #### L 100.0100, L500.2500 ####[facility] [address] [place], [address] MCH Normal 27.0-32.0 [facility] Comment on above: Result Comment: Canc elled via OM: Order cancelled - Patient discharged Performed By: #### L 100.0100, L500.2500 ####[facility] [address] [place], [address] MCHC Normal 32-36 [facility] Comment on above: Result Comment: Canc elled via OM: Order cancelled - Patient discharged Performed By: #### L 100.0100, L500.2500 ####[facility] [address] [place], [address] MCV Normal 80-94 [facility] Comment on above: Result Comment: Canc elled via OM: Order cancelled - Patient discharged Performed By: #### L 100.0100, L500.2500 ####[facility] [address] [place], [address] NEUT% Normal 47-70 [facility] Comment on above: Result Comment: Canc elled via OM: Order cancelled - Patient discharged Performed By: #### L 100.0100, L500.2500 ####[facility] [address] [place], [address] PLT Normal 150-450 [facility] Comment on above: Result Comment: Canc elled via OM: Order cancelled - Patient discharged Performed By: #### L 100.0100, L500.2500 ####[facility] [address] [place], [address] RBC Normal 4.6-6.2 [facility] Comment on above: Result Comment: Canc elled via OM: Order cancelled - Patient discharged Performed By: #### L 100.0100, L500.2500 ####[facility] [address] [place], [address] RDW CV Normal 11.6-14.6 [facility] Comment on above: Result Comment: Canc elled via OM: Order cancelled - Patient discharged Performed By: #### L 100.0100, L500.2500 ####[facility] [address] [place], [address] RDW SD Normal 35.1-43.9 [facility] Comment on above: Result Comment: Canc elled via OM: Order cancelled - Patient discharged Performed By: #### L 100.0100, L500.2500 ####[facility] [address] [place], [address] WBC Normal 4.4-11.0 [facility] Comment on above: Result Comment: Canc elled via OM: Order cancelled - Patient discharged Performed By: #### L 100.0100, L500.2500 ####[facility] [address] [place], [address] Fluoroscopy 1 Hr or Lesson 1 03-27-2023 Fluoroscopy 1 Hr or Less [facility] Imaging Services [address] [place] [address] Fluoroscopy 1 Hr or Less MR#: [id number] Acct: [id number] Name: HIRAM DORAN Rep #: [id number] : 1940 M 83 From: Chris de dios MD PCP: Dr. Malissa Rascon MD Status: PRE CLI Study: Fluoroscopy 1 Hr or Less Date of Exam: 4 Exam# [id number] Ordering Dr: Parrish Shah MD 5:[id number] PROCEDURE: Cholangiogram. DATE OF EXAMINATION: January 26, 2024. INDICATION: Male, 83 years old. Indwelling cholecystostomy tube. PHYSICIAN: Dr. Audrey Pascual FLUOROSCOPY TIME (if supplied): (36 seconds) minutes/seconds. 18 mGy. 4 images were submitted. 15 cc of Isovue-300 was injected into the indwelling cholecystostomy tube. There is opacification of the gallbladder. There is opacification of the intra and extrahepatic biliary ducts. Contrast is seen within the duodenum. No intraluminal filling defects are seen. RAD/Fluoroscopy 1 Hr or Less IMPRESSION: Unremarkable cholangiogram. Electronically Signed: Chris Ventura MD at 9:54 EST , CC: Dr. Malissa Rascon MD; Dr. Parrish Shah MD Public Health Officer: Signed Normal [facility] Basic Metabolic Profile (BMP )on 01-22-2024 BUN/CRE 23.4 RATIO High 10-20 [facility] Comment on above: Performed By: #### L 500.2500, L100.0100 #### [facility] [address] [place], [address] CA,Total 9.1 mg/dL Normal 8.5-10.1 [facility] Comment on above: Performed By: #### L 500.2500, L100.0100 #### [facility] [address] [place], [address] Chloride [Moles/Vol] 108 mmol/L High 98-107 [facility] Comment on above: Performed By: #### L 500.2500, L100.0100 #### [facility] [address] [place], [address] CO2 [Moles/Vol] 25.0 mmol/L Normal 21.0-32.0 [facility] Comment on above: Performed By: #### L 500.2500, L100.0100 #### [facility] [address] [place], [address] Creatinine [Mass/Vol] 0.68 mg/dL Low 0.70-1.30 [facility] Comment on above: Result Comment: The validity of the calculated GFR GFRAA in patients over 70 years has not been determined. Clinical correlation is essential. Performed By: #### L 500.2500, L100.0100 #### [facility] [address] [place], [address] ECRCL 65.31 ml/min Normal [facility] Comment on above: Performed By: #### L 500.2500, L100.0100 #### [facility] [address] [place], [address] EST GFR - AA 141 mL/min Normal >60 [facility] Comment on above: Result Comment: Afri can Ukrainian GFR Calc Performed By: #### L 500.2500, L100.0100 #### [facility] [address] [place], [address] GAP 5 Normal 5-15 [facility] Comment on above: Performed By: #### L 500.2500, L100.0100 #### [facility] [address] [place], [address] GFR/1.73 sq M.predicted among non-blacks MDRD (S/P/Bld) [Vol rate/Area] 117 mL/min/{1.73_m2} Normal >60 [facility] Comment on above: Result Comment: Non- GFR Calc Performed By: #### L 500.2500, L100.0100 #### [facility] [address] [place], [address] Glucose [Mass/Vol] 106 mg/dL Normal 74-106 [facility] Comment on above: Result Comment: Fast ing Glucose result from 100 to 125 mg/dL suggests IMPAIRED HOMEOSTASIS per A.D.A. criteria. Performed By: #### L 500.2500, L100.0100 #### [facility] [address] [place], [address] Potassium [Moles/Vol] 3.7 mmol/L Normal 3.5-5.1 [facility] Comment on above: Performed By: #### L 500.2500, L100.0100 #### [facility] [address] [place], [address] Sodium [Moles/Vol] 138 mmol/L Normal 136-145 [facility] Comment on above: Performed By: #### L 500.2500, L100.0100 #### [facility] [address] [place], [address] Urea nitrogen [Mass/Vol] 16 mg/dL Normal 7-18 [facility] Comment on above: Performed By: #### L 500.2500, L100.0100 #### [facility] [address] [place], [address] BUN Normal 7-18 [facility] Comment on above: Result Comment: Canc elled via OM: Order cancelled - Patient discharged Performed By: #### L 500.2500, L100.0100 ####[facility] [address] [place], [address] BUN/CRE Normal 10-20 [facility] Comment on above: Result Comment: Canc elled via OM: Order cancelled - Patient discharged Performed By: #### L 500.2500, L100.0100 ####[facility] [address] [place], [address] CA,Total Normal 8.5-10.1 [facility] Comment on above: Result Comment: Canc elled via OM: Order cancelled - Patient discharged Performed By: #### L 500.2500, L100.0100 ####[facility] [address] [place], [address] CL Normal 98-107 [facility] Comment on above: Result Comment: Canc elled via OM: Order cancelled - Patient discharged Performed By: #### L 500.2500, L100.0100 ####[facility] [address] [place], [address] CO2 Normal 21.0-32.0 [facility] Comment on above: Result Comment: Canc elled via OM: Order cancelled - Patient discharged Performed By: #### L 500.2500, L100.0100 ####[facility] [address] [place], [address] CREAT,SERUM Normal 0.70-1.30 [facility] Comment on above: Result Comment: Canc elled via OM: Order cancelled - Patient discharged Performed By: #### L 500.2500, L100.0100 ####[facility] [address] [place], [address] EST GFR Normal >60 [facility] Comment on above: Result Comment: Canc elled via OM: Order cancelled - Patient discharged Performed By: #### L 500.2500, L100.0100 ####[facility] [address] [place], [address] EST GFR - AA Normal >60 [facility] Comment on above: Result Comment: Canc elled via OM: Order cancelled - Patient discharged Performed By: #### L 500.2500, L100.0100 ####[facility] [address] [place], [address] GAP Normal 5-15 [facility] Comment on above: Result Comment: Canc elled via OM: Order cancelled - Patient discharged Performed By: #### L 500.2500, L100.0100 ####[facility] [address] [place], [address] GLU Normal 74-106 [facility] Comment on above: Result Comment: Canc elled via OM: Order cancelled - Patient discharged Performed By: #### L 500.2500, L100.0100 ####[facility] [address] [place], [address] Potassium Normal 3.5-5.1 [facility] Comment on above: Result Comment: Canc elled via OM: Order cancelled - Patient discharged Performed By: #### L 500.2500, L100.0100 ####[facility] [address] [place], [address] Basic Metabolic Profile (BMP) Normal 136-145 [facility] Comment on above: Result Comment: Canc elled via OM: Order cancelled - Patient discharged Performed By: #### L 500.2500, L100.0100 ####[facility] [address] [place], [address] CBC W/Diff, Automatedon 11-0 -2023 Absolute Lymph 1.32 X10 3/uL Normal 0.83-4.51 [facility] Comment on above: Performed By: #### L 500.2500, L100.0100 #### [facility] [address] [place], [address] Absolute Neut 7.0 X10 3/uL Normal 2.0-7.7 [facility] Comment on above: Performed By: #### L 500.2500, L100.0100 #### [facility] [address] [place], [address] Basophils/100 WBC (Bld) 1.9 % High 0-1 [facility] Comment on above: Performed By: #### L 500.2500, L100.0100 #### [facility] [address] [place], [address] Eosinophils/100 WBC (Bld) 8.8 % High 0-5 [facility] Comment on above: Performed By: #### L 500.2500, L100.0100 #### [facility] [address] [place], [address] Erythrocyte distribution width (RBC) [Ratio] 14.7 % High 11.6-14.6 [facility] Comment on above: Performed By: #### L 500.2500, L100.0100 #### [facility] [address] [place], [address] Hematocrit (Bld) [Volume fraction] 35.3 % Low 40-54 [facility] Comment on above: Performed By: #### L 500.2500, L100.0100 #### [facility] [address] [place], [address] Hemoglobin (Bld) [Mass/Vol] 11.4 g/dL Low 13.0-16.5 [facility] Comment on above: Performed By: #### L 500.2500, L100.0100 #### [facility] [address] [place], [address] IG% 1.000 High 0.0-0.9 [facility] Comment on above: Result Comment: IG% - Immature Granulocytes (promyelocytes, myelocytes and metamyelocytes) > 1% indicates that a LEFT SHIFT is Present. Performed By: #### L 500.2500, L100.0100 #### [facility] [address] [place], [address] Lymphocytes/100 WBC (Bld) 12.5 % Low 19-41 [facility] Comment on above: Performed By: #### L 500.2500, L100.0100 #### [facility] [address] [place], [address] MCH (RBC) [Entitic mass] 30.2 pg Normal 27.0-32.0 [facility] Comment on above: Performed By: #### L 500.2500, L100.0100 #### [facility] [address] [place], [address] MCHC (RBC) [Mass/Vol] 32.3 g/dL Normal 32-36 [facility] Comment on above: Performed By: #### L 500.2500, L100.0100 #### [facility] [address] [place], [address] MCV (RBC) [Entitic vol] 93.6 fL Normal 80-94 [facility] Comment on above: Performed By: #### L 500.2500, L100.0100 #### [facility] [address] [place], [address] Monocytes/100 WBC (Bld) 9.7 % Normal 0-10 [facility] Comment on above: Performed By: #### L 500.2500, L100.0100 #### [facility] [address] [place], [address] Neutrophils/100 WBC (Bld) 66.1 % Normal 47-70 [facility] Comment on above: Performed By: #### L 500.2500, L100.0100 #### [facility] [address] [place], [address] Nucleated RBC (Bld) [#/Vol] 0 10*3/uL Normal 0-5 [facility] Comment on above: Performed By: #### L 500.2500, L100.0100 #### [facility] [address] [place], [address] Platelet mean volume (Bld) [Entitic vol] 9.8 fL Normal 6.2-12.0 [facility] Comment on above: Performed By: #### L 500.2500, L100.0100 #### [facility] [address] [place], [address] Platelets (Bld) [#/Vol] 276 10*3/uL Normal 150-450 [facility] Comment on above: Performed By: #### L 500.2500, L100.0100 #### [facility] [address] [place], [address] RBC (Bld) [#/Vol] 3.77 10*6/uL Low 4.6-6.2 [facility] Comment on above: Performed By: #### L 500.2500, L100.0100 #### [facility] [address] [place], [address] RDW SD 51.6 fl High 35.1-43.9 [facility] Comment on above: Performed By: #### L 500.2500, L100.0100 #### [facility] [address] [place], [address] WBC (Bld) [#/Vol] 10.5 10*3/uL Normal 4.4-11.0 [facility] Comment on above: Performed By: #### L 500.2500, L100.0100 #### [facility] [address] [place], [address] Absolute Neut Normal 2.0-7.7 [facility] Comment on above: Result Comment: Canc elled via OM: Order cancelled - Patient discharged Performed By: #### L 500.2500, L100.0100 ####[facility] [address] [place], [address] HCT Normal 40-54 [facility] Comment on above: Result Comment: Canc elled via OM: Order cancelled - Patient discharged Performed By: #### L 500.2500, L100.0100 ####[facility] [address] [place], [address] HGB Normal 13.0-16.5 [facility] Comment on above: Result Comment: Canc elled via OM: Order cancelled - Patient discharged Performed By: #### L 500.2500, L100.0100 ####[facility] [address] [place], [address] MCH Normal 27.0-32.0 [facility] Comment on above: Result Comment: Canc elled via OM: Order cancelled - Patient discharged Performed By: #### L 500.2500, L100.0100 ####[facility] [address] [place], [address] MCHC Normal 32-36 [facility] Comment on above: Result Comment: Canc elled via OM: Order cancelled - Patient discharged Performed By: #### L 500.2500, L100.0100 ####[facility] [address] [place], [address] MCV Normal 80-94 [facility] Comment on above: Result Comment: Canc elled via OM: Order cancelled - Patient discharged Performed By: #### L 500.2500, L100.0100 ####[facility] [address] [place], [address] NEUT% Normal 47-70 [facility] Comment on above: Result Comment: Canc elled via OM: Order cancelled - Patient discharged Performed By: #### L 500.2500, L100.0100 ####[facility] [address] [place], [address] PLT Normal 150-450 [facility] Comment on above: Result Comment: Canc elled via OM: Order cancelled - Patient discharged Performed By: #### L 500.2500, L100.0100 ####[facility] [address] [place], [address] RBC Normal 4.6-6.2 [facility] Comment on above: Result Comment: Canc elled via OM: Order cancelled - Patient discharged Performed By: #### L 500.2500, L100.0100 ####[facility] [address] [place], [address] RDW CV Normal 11.6-14.6 [facility] Comment on above: Result Comment: Canc elled via OM: Order cancelled - Patient discharged Performed By: #### L 500.2500, L100.0100 ####[facility] [address] [place], [address] RDW SD Normal 35.1-43.9 [facility] Comment on above: Result Comment: Canc elled via OM: Order cancelled - Patient discharged Performed By: #### L 500.2500, L100.0100 ####[facility] [address] [place], [address] WBC Normal 4.4-11.0 [facility] Comment on above: Result Comment: Canc elled via OM: Order cancelled - Patient discharged Performed By: #### L 500.2500, L100.0100 ####[facility] [address] [place], [address] Vitamin D,25 Hydroxyon 01-21 Vitamin D 25-OH 42.7 ng/mL Normal [facility] Comment on above: Result Comment: Kayla min D 25(OH) Status Range Deficiency <20 ng/mL (50nmol/L) Insufficiency 20 - 30 ng/mL (50 - 75 nmol/L) Sufficiency 30 - 100 ng/mL (75 - 250 nmol/L) Toxicity >100 ng/mL (>250 nmol/L) Performed By: #### L 506.1000 #### [facility] [address] [place], [address] Basic Metabolic Profile (BMP )on 01-21-2024 BUN Normal 7-18 [facility] Comment on above: Result Comment: Canc elled via OM: Order cancelled - Patient discharged Performed By: #### L 100.0100, L500.2500 #### [facility] [address] [place], [address] Performed By: #### L 500.2500, L100.0100 #### [facility] [address] [place], [address] BUN/CRE Normal 10-20 [facility] Comment on above: Result Comment: Canc elled via OM: Order cancelled - Patient discharged Performed By: #### L 100.0100, L500.2500 #### [facility] [address] [place], [address] Performed By: #### L 500.2500, L100.0100 #### [facility] [address] [place], [address] CA,Total Normal 8.5-10.1 [facility] Comment on above: Result Comment: Canc elled via OM: Order cancelled - Patient discharged Performed By: #### L 100.0100, L500.2500 #### [facility] [address] [place], [address] Performed By: #### L 500.2500, L100.0100 #### [facility] [address] [place], [address] CL Normal 98-107 [facility] Comment on above: Result Comment: Canc elled via OM: Order cancelled - Patient discharged Performed By: #### L 100.0100, L500.2500 #### [facility] [address] [place], [address] Performed By: #### L 500.2500, L100.0100 #### [facility] [address] [place], [address] CO2 Normal 21.0-32.0 [facility] Comment on above: Result Comment: Canc elled via OM: Order cancelled - Patient discharged Performed By: #### L 100.0100, L500.2500 #### [facility] [address] [place], [address] Performed By: #### L 500.2500, L100.0100 #### [facility] [address] [place], [address] CREAT,SERUM Normal 0.70-1.30 [facility] Comment on above: Result Comment: Canc elled via OM: Order cancelled - Patient discharged Performed By: #### L 100.0100, L500.2500 #### [facility] [address] [place], [address] Performed By: #### L 500.2500, L100.0100 #### [facility] [address] [place], [address] EST GFR Normal >60 [facility] Comment on above: Result Comment: Canc elled via OM: Order cancelled - Patient discharged Performed By: #### L 100.0100, L500.2500 #### [facility] [address] [place], [address] Performed By: #### L 500.2500, L100.0100 #### [facility] [address] [place], [address] EST GFR - AA Normal >60 [facility] Comment on above: Result Comment: Canc elled via OM: Order cancelled - Patient discharged Performed By: #### L 100.0100, L500.2500 #### [facility] [address] [place], [address] Performed By: #### L 500.2500, L100.0100 #### [facility] [address] [place], [address] GAP Normal 5-15 [facility] Comment on above: Result Comment: Canc elled via OM: Order cancelled - Patient discharged Performed By: #### L 100.0100, L500.2500 #### [facility] [address] [place], [address] Performed By: #### L 500.2500, L100.0100 #### [facility] [address] [place], [address] GLU Normal 74-106 [facility] Comment on above: Result Comment: Canc elled via OM: Order cancelled - Patient discharged Performed By: #### L 100.0100, L500.2500 #### [facility] [address] [place], [address] Performed By: #### L 500.2500, L100.0100 #### [facility] [address] [place], [address] Potassium Normal 3.5-5.1 [facility] Comment on above: Result Comment: Canc elled via OM: Order cancelled - Patient discharged Performed By: #### L 100.0100, L500.2500 #### [facility] [address] [place], [address] Performed By: #### L 500.2500, L100.0100 #### [facility] [address] [place], [address] Basic Metabolic Profile (BMP) Normal 136-145 [facility] Comment on above: Result Comment: Canc elled via OM: Order cancelled - Patient discharged Performed By: #### L 100.0100, L500.2500 #### [facility] [address] [place], [address] Performed By: #### L 500.2500, L100.0100 #### [facility] [address] [place], [address] CBC W/Diff, Automatedon 11-0 -2023 Absolute Neut Normal 2.0-7.7 [facility] Comment on above: Result Comment: Canc elled via OM: Order cancelled - Patient discharged Performed By: #### L 100.0100, L500.2500 #### [facility] [address] [place], [address] Performed By: #### L 500.2500, L100.0100 #### [facility] [address] [place], [address] HCT Normal 40-54 [facility] Comment on above: Result Comment: Canc elled via OM: Order cancelled - Patient discharged Performed By: #### L 100.0100, L500.2500 #### [facility] [address] [place], [address] Performed By: #### L 500.2500, L100.0100 #### [facility] [address] [place], [address] HGB Normal 13.0-16.5 [facility] Comment on above: Result Comment: Canc elled via OM: Order cancelled - Patient discharged Performed By: #### L 100.0100, L500.2500 #### [facility] [address] [place], [address] Performed By: #### L 500.2500, L100.0100 #### [facility] [address] [place], [address] MCH Normal 27.0-32.0 [facility] Comment on above: Result Comment: Canc elled via OM: Order cancelled - Patient discharged Performed By: #### L 100.0100, L500.2500 #### [facility] [address] [place], [address] Performed By: #### L 500.2500, L100.0100 #### [facility] [address] [place], [address] MCHC Normal 32-36 [facility] Comment on above: Result Comment: Canc elled via OM: Order cancelled - Patient discharged Performed By: #### L 100.0100, L500.2500 #### [facility] [address] [place], [address] Performed By: #### L 500.2500, L100.0100 #### [facility] [address] [place], [address] MCV Normal 80-94 [facility] Comment on above: Result Comment: Canc elled via OM: Order cancelled - Patient discharged Performed By: #### L 100.0100, L500.2500 #### [facility] [address] [place], [address] Performed By: #### L 500.2500, L100.0100 #### [facility] [address] [place], [address] NEUT% Normal 47-70 [facility] Comment on above: Result Comment: Canc elled via OM: Order cancelled - Patient discharged Performed By: #### L 100.0100, L500.2500 #### [facility] [address] [place], [address] Performed By: #### L 500.2500, L100.0100 #### [facility] [address] [place], [address] PLT Normal 150-450 [facility] Comment on above: Result Comment: Canc elled via OM: Order cancelled - Patient discharged Performed By: #### L 100.0100, L500.2500 #### [facility] [address] [place], [address] Performed By: #### L 500.2500, L100.0100 #### [facility] [address] [place], [address] RBC Normal 4.6-6.2 [facility] Comment on above: Result Comment: Canc elled via OM: Order cancelled - Patient discharged Performed By: #### L 100.0100, L500.2500 #### [facility] [address] [place], [address] Performed By: #### L 500.2500, L100.0100 #### [facility] [address] [place], [address] RDW CV Normal 11.6-14.6 [facility] Comment on above: Result Comment: Canc elled via OM: Order cancelled - Patient discharged Performed By: #### L 100.0100, L500.2500 #### [facility] [address] [place], [address] Performed By: #### L 500.2500, L100.0100 #### [facility] [facility] [address] [place], [address] RDW SD Normal 35.1-43.9 [facility] Comment on above: Result Comment: Canc elled via OM: Order cancelled - Patient discharged Performed By: #### L 100.0100, L500.2500 #### [facility] [address] [place], [address] Performed By: #### L 500.2500, L100.0100 #### [facility] [address] [place], [address] WBC Normal 4.4-11.0 [facility] Comment on above: Result Comment: Canc elled via OM: Order cancelled - Patient discharged Performed By: #### L 100.0100, L500.2500 #### [facility] [address] [place], [address] Performed By: #### L 500.2500, L100.0100 #### [facility] [address] [place], [address] Basic Metabolic Profile (BMP )on 01-20-2024 BUN Normal 7-18 [facility] Comment on above: Result Comment: Canc elled via OM: Order cancelled - Patient discharged Performed By: #### L 100.0100, L500.2500 #### [facility] [address] [place], [address] BUN/CRE Normal 10-20 [facility] Comment on above: Result Comment: Canc elled via OM: Order cancelled - Patient discharged Performed By: #### L 100.0100, L500.2500 #### [facility] [address] [place], [address] CA,Total Normal 8.5-10.1 [facility] Comment on above: Result Comment: Canc elled via OM: Order cancelled - Patient discharged Performed By: #### L 100.0100, L500.2500 #### [facility] [address] [place], [address] CL Normal 98-107 [facility] Comment on above: Result Comment: Canc elled via OM: Order cancelled - Patient discharged Performed By: #### L 100.0100, L500.2500 #### [facility] [address] [place], [address] CO2 Normal 21.0-32.0 [facility] Comment on above: Result Comment: Canc elled via OM: Order cancelled - Patient discharged Performed By: #### L 100.0100, L500.2500 #### [facility] [address] [place], [address] CREAT,SERUM Normal 0.70-1.30 [facility] Comment on above: Result Comment: Canc elled via OM: Order cancelled - Patient discharged Performed By: #### L 100.0100, L500.2500 #### [facility] [address] [place], [address] EST GFR Normal >60 [facility] Comment on above: Result Comment: Canc elled via OM: Order cancelled - Patient discharged Performed By: #### L 100.0100, L500.2500 #### [facility] [address] [place], [address] EST GFR - AA Normal >60 [facility] Comment on above: Result Comment: Canc elled via OM: Order cancelled - Patient discharged Performed By: #### L 100.0100, L500.2500 #### [facility] [address] [place], [address] GAP Normal 5-15 [facility] Comment on above: Result Comment: Canc elled via OM: Order cancelled - Patient discharged Performed By: #### L 100.0100, L500.2500 #### [facility] [address] [place], [address] GLU Normal 74-106 [facility] Comment on above: Result Comment: Canc elled via OM: Order cancelled - Patient discharged Performed By: #### L 100.0100, L500.2500 #### [facility] [address] [place], [address] Potassium Normal 3.5-5.1 [facility] Comment on above: Result Comment: Canc elled via OM: Order cancelled - Patient discharged Performed By: #### L 100.0100, L500.2500 #### [facility] [address] [place], [address] Basic Metabolic Profile (BMP) Normal 136-145 [facility] Comment on above: Result Comment: Canc elled via OM: Order cancelled - Patient discharged Performed By: #### L 100.0100, L500.2500 #### [facility] [address] [place], [address] CBC W/Diff, Automatedon 11-0 -2023 Absolute Neut Normal 2.0-7.7 [facility] Comment on above: Result Comment: Canc elled via OM: Order cancelled - Patient discharged Performed By: #### L 100.0100, L500.2500 #### [facility] [address] [place], [address] HCT Normal 40-54 [facility] Comment on above: Result Comment: Canc elled via OM: Order cancelled - Patient discharged Performed By: #### L 100.0100, L500.2500 #### [facility] [address] [place], [address] HGB Normal 13.0-16.5 [facility] Comment on above: Result Comment: Canc elled via OM: Order cancelled - Patient discharged Performed By: #### L 100.0100, L500.2500 #### [facility] [address] [place], [address] MCH Normal 27.0-32.0 [facility] Comment on above: Result Comment: Canc elled via OM: Order cancelled - Patient discharged Performed By: #### L 100.0100, L500.2500 #### [facility] [address] [place], [address] MCHC Normal 32-36 [facility] Comment on above: Result Comment: Canc elled via OM: Order cancelled - Patient discharged Performed By: #### L 100.0100, L500.2500 #### [facility] [address] [place], [address] MCV Normal 80-94 [facility] Comment on above: Result Comment: Canc elled via OM: Order cancelled - Patient discharged Performed By: #### L 100.0100, L500.2500 #### [facility] [address] [place], [address] NEUT% Normal 47-70 [facility] Comment on above: Result Comment: Canc elled via OM: Order cancelled - Patient discharged Performed By: #### L 100.0100, L500.2500 #### [facility] [address] [place], [address] PLT Normal 150-450 [facility] Comment on above: Result Comment: Canc elled via OM: Order cancelled - Patient discharged Performed By: #### L 100.0100, L500.2500 #### [facility] [address] [place], [address] RBC Normal 4.6-6.2 [facility] Comment on above: Result Comment: Canc elled via OM: Order cancelled - Patient discharged Performed By: #### L 100.0100, L500.2500 #### [facility] [address] [place], [address] RDW CV Normal 11.6-14.6 [facility] Comment on above: Result Comment: Canc elled via OM: Order cancelled - Patient discharged Performed By: #### L 100.0100, L500.2500 #### [facility] [address] [place], [address] RDW SD Normal 35.1-43.9 [facility] Comment on above: Result Comment: Canc elled via OM: Order cancelled - Patient discharged Performed By: #### L 100.0100, L500.2500 #### [facility] [address] [place], [address] WBC Normal 4.4-11.0 [facility] Comment on above: Result Comment: Canc elled via OM: Order cancelled - Patient discharged Performed By: #### L 100.0100, L500.2500 #### [facility] [address] [place], [address] Basic Metabolic Profile (BMP )on 01-19-2024 BUN Normal 7-18 [facility] Comment on above: Result Comment: Canc elled via OM: Order cancelled - Patient discharged Performed By: #### L 100.0100, L500.2500 #### [facility] [address] [place], [address] BUN/CRE Normal 10-20 [facility] Comment on above: Result Comment: Canc elled via OM: Order cancelled - Patient discharged Performed By: #### L 100.0100, L500.2500 #### [facility] [address] [place], [address] CA,Total Normal 8.5-10.1 [facility] Comment on above: Result Comment: Canc elled via OM: Order cancelled - Patient discharged Performed By: #### L 100.0100, L500.2500 #### [facility] [address] [place], [address] CL Normal 98-107 [facility] Comment on above: Result Comment: Canc elled via OM: Order cancelled - Patient discharged Performed By: #### L 100.0100, L500.2500 #### [facility] [address] [place], [address] CO2 Normal 21.0-32.0 [facility] Comment on above: Result Comment: Canc elled via OM: Order cancelled - Patient discharged Performed By: #### L 100.0100, L500.2500 #### [facility] [address] [place], [address] CREAT,SERUM Normal 0.70-1.30 [facility] Comment on above: Result Comment: Canc elled via OM: Order cancelled - Patient discharged Performed By: #### L 100.0100, L500.2500 #### [facility] [address] [place], [address] EST GFR Normal >60 [facility] Comment on above: Result Comment: Canc elled via OM: Order cancelled - Patient discharged Performed By: #### L 100.0100, L500.2500 #### [facility] [address] [place], [address] EST GFR - AA Normal >60 [facility] Comment on above: Result Comment: Canc elled via OM: Order cancelled - Patient discharged Performed By: #### L 100.0100, L500.2500 #### [facility] [address] [place], [address] GAP Normal 5-15 [facility] Comment on above: Result Comment: Canc elled via OM: Order cancelled - Patient discharged Performed By: #### L 100.0100, L500.2500 #### [facility] [address] [place], [address] GLU Normal 74-106 [facility] Comment on above: Result Comment: Canc elled via OM: Order cancelled - Patient discharged Performed By: #### L 100.0100, L500.2500 #### [facility] [address] [place], [address] Potassium Normal 3.5-5.1 [facility] Comment on above: Result Comment: Canc elled via OM: Order cancelled - Patient discharged Performed By: #### L 100.0100, L500.2500 #### [facility] [address] [place], [address] Basic Metabolic Profile (BMP) Normal 136-145 [facility] Comment on above: Result Comment: Canc elled via OM: Order cancelled - Patient discharged Performed By: #### L 100.0100, L500.2500 #### [facility] [address] [place], [address] CBC W/Diff, Automatedon 11-0 -2023 Absolute Neut Normal 2.0-7.7 [facility] Comment on above: Result Comment: Canc elled via OM: Order cancelled - Patient discharged Performed By: #### L 100.0100, L500.2500 #### [facility] [address] [place], [address] HCT Normal 40-54 [facility] Comment on above: Result Comment: Canc elled via OM: Order cancelled - Patient discharged Performed By: #### L 100.0100, L500.2500 #### [facility] [address] [place], [address] HGB Normal 13.0-16.5 [facility] Comment on above: Result Comment: Canc elled via OM: Order cancelled - Patient discharged Performed By: #### L 100.0100, L500.2500 #### [facility] [address] [place], [address] MCH Normal 27.0-32.0 [facility] Comment on above: Result Comment: Canc elled via OM: Order cancelled - Patient discharged Performed By: #### L 100.0100, L500.2500 #### [facility] [address] [place], [address] MCHC Normal 32-36 [facility] Comment on above: Result Comment: Canc elled via OM: Order cancelled - Patient discharged Performed By: #### L 100.0100, L500.2500 #### [facility] [address] [place], [address] MCV Normal 80-94 [facility] Comment on above: Result Comment: Canc elled via OM: Order cancelled - Patient discharged Performed By: #### L 100.0100, L500.2500 #### [facility] [address] [place], [address] NEUT% Normal 47-70 [facility] Comment on above: Result Comment: Canc elled via OM: Order cancelled - Patient discharged Performed By: #### L 100.0100, L500.2500 #### [facility] [address] [place], [address] PLT Normal 150-450 [facility] Comment on above: Result Comment: Canc elled via OM: Order cancelled - Patient discharged Performed By: #### L 100.0100, L500.2500 #### [facility] [address] [place], [address] RBC Normal 4.6-6.2 [facility] Comment on above: Result Comment: Canc elled via OM: Order cancelled - Patient discharged Performed By: #### L 100.0100, L500.2500 #### [facility] [address] [place], [address] RDW CV Normal 11.6-14.6 [facility] Comment on above: Result Comment: Canc elled via OM: Order cancelled - Patient discharged Performed By: #### L 100.0100, L500.2500 #### [facility] [address] [place], [address] RDW SD Normal 35.1-43.9 [facility] Comment on above: Result Comment: Canc elled via OM: Order cancelled - Patient discharged Performed By: #### L 100.0100, L500.2500 #### [facility] [address] [place], [address] WBC Normal 4.4-11.0 [facility] Comment on above: Result Comment: Canc elled via OM: Order cancelled - Patient discharged Performed By: #### L 100.0100, L500.2500 #### [facility] [address] [place], [address] Vitamin D,25 Hydroxyon 01-18 Vitamin D 25-OH 40.1 ng/mL Normal [facility] Comment on above: Result Comment: Kayla min D 25(OH) Status Range Deficiency <20 ng/mL (50nmol/L) Insufficiency 20 - 30 ng/mL (50 - 75 nmol/L) Sufficiency 30 - 100 ng/mL (75 - 250 nmol/L) Toxicity >100 ng/mL (>250 nmol/L) Performed By: #### L 506.1000 ####[facility] [address] [place], [address] Basic Metabolic Profile (BMP )on 01-18-2024 BUN Normal 7-18 [facility] Comment on above: Result Comment: Canc elled via OM: Order cancelled - Patient discharged Performed By: #### L 500.2500, L100.0100 #### [facility] [address] [place], [address] BUN/CRE Normal 10-20 [facility] Comment on above: Result Comment: Canc elled via OM: Order cancelled - Patient discharged Performed By: #### L 500.2500, L100.0100 #### [facility] [address] [place], [address] CA,Total Normal 8.5-10.1 [facility] Comment on above: Result Comment: Canc elled via OM: Order cancelled - Patient discharged Performed By: #### L 500.2500, L100.0100 #### [facility] [address] [place], [address] CL Normal 98-107 [facility] Comment on above: Result Comment: Canc elled via OM: Order cancelled - Patient discharged Performed By: #### L 500.2500, L100.0100 #### [facility] [address] [place], [address] CO2 Normal 21.0-32.0 [facility] Comment on above: Result Comment: Canc elled via OM: Order cancelled - Patient discharged Performed By: #### L 500.2500, L100.0100 #### [facility] [address] [place], [address] CREAT,SERUM Normal 0.70-1.30 [facility] Comment on above: Result Comment: Canc elled via OM: Order cancelled - Patient discharged Performed By: #### L 500.2500, L100.0100 #### [facility] [address] [place], [address] EST GFR Normal >60 [facility] Comment on above: Result Comment: Canc elled via OM: Order cancelled - Patient discharged Performed By: #### L 500.2500, L100.0100 #### [facility] [address] [place], [address] EST GFR - AA Normal >60 [facility] Comment on above: Result Comment: Canc elled via OM: Order cancelled - Patient discharged Performed By: #### L 500.2500, L100.0100 #### [facility] [address] [place], [address] GAP Normal 5-15 [facility] Comment on above: Result Comment: Canc elled via OM: Order cancelled - Patient discharged Performed By: #### L 500.2500, L100.0100 #### [facility] [address] [place], [address] GLU Normal 74-106 [facility] Comment on above: Result Comment: Canc elled via OM: Order cancelled - Patient discharged Performed By: #### L 500.2500, L100.0100 #### [facility] [address] [place], [address] Potassium Normal 3.5-5.1 [facility] Comment on above: Result Comment: Canc elled via OM: Order cancelled - Patient discharged Performed By: #### L 500.2500, L100.0100 #### [facility] [address] [place], [address] Basic Metabolic Profile (BMP) Normal 136-145 [facility] Comment on above: Result Comment: Canc elled via OM: Order cancelled - Patient discharged Performed By: #### L 500.2500, L100.0100 #### [facility] [address] [place], [address] CBC W/Diff, Automatedon 11-0 -2023 Absolute Neut Normal 2.0-7.7 [facility] Comment on above: Result Comment: Canc elled via OM: Order cancelled - Patient discharged Performed By: #### L 500.2500, L100.0100 #### [facility] [address] [place], [address] HCT Normal 40-54 [facility] Comment on above: Result Comment: Canc elled via OM: Order cancelled - Patient discharged Performed By: #### L 500.2500, L100.0100 #### [facility] [address] [place], [address] HGB Normal 13.0-16.5 [facility] Comment on above: Result Comment: Canc elled via OM: Order cancelled - Patient discharged Performed By: #### L 500.2500, L100.0100 #### [facility] [address] [place], [address] MCH Normal 27.0-32.0 [facility] Comment on above: Result Comment: Canc elled via OM: Order cancelled - Patient discharged Performed By: #### L 500.2500, L100.0100 #### [facility] [address] [place], [address] MCHC Normal 32-36 [facility] Comment on above: Result Comment: Canc elled via OM: Order cancelled - Patient discharged Performed By: #### L 500.2500, L100.0100 #### [facility] [address] [place], [address] MCV Normal 80-94 [facility] Comment on above: Result Comment: Canc elled via OM: Order cancelled - Patient discharged Performed By: #### L 500.2500, L100.0100 #### [facility] [address] [place], [address] NEUT% Normal 47-70 [facility] Comment on above: Result Comment: Canc elled via OM: Order cancelled - Patient discharged Performed By: #### L 500.2500, L100.0100 #### [facility] [address] [place], [address] PLT Normal 150-450 [facility] Comment on above: Result Comment: Canc elled via OM: Order cancelled - Patient discharged Performed By: #### L 500.2500, L100.0100 #### [facility] [address] [place], [address] RBC Normal 4.6-6.2 [facility] Comment on above: Result Comment: Canc elled via OM: Order cancelled - Patient discharged Performed By: #### L 500.2500, L100.0100 #### [facility] [address] [place], [address] RDW CV Normal 11.6-14.6 [facility] Comment on above: Result Comment: Canc elled via OM: Order cancelled - Patient discharged Performed By: #### L 500.2500, L100.0100 #### [facility] [address] [place], [address] RDW SD Normal 35.1-43.9 [facility] Comment on above: Result Comment: Canc elled via OM: Order cancelled - Patient discharged Performed By: #### L 500.2500, L100.0100 #### [facility] [address] [place], [address] WBC Normal 4.4-11.0 [facility] Comment on above: Result Comment: Canc elled via OM: Order cancelled - Patient discharged Performed By: #### L 500.2500, L100.0100 #### [facility] [address] [place], [address] Basic Metabolic Profile (BMP )on 01-17-2024 BUN Normal 7-18 [facility] Comment on above: Result Comment: Canc elled via OM: Order cancelled - Patient discharged Performed By: #### L 500.2500, L100.0100 #### [facility] [address] [place], [address] BUN/CRE Normal 10-20 [facility] Comment on above: Result Comment: Canc elled via OM: Order cancelled - Patient discharged Performed By: #### L 500.2500, L100.0100 #### [facility] [address] [place], [address] CA,Total Normal 8.5-10.1 [facility] Comment on above: Result Comment: Canc elled via OM: Order cancelled - Patient discharged Performed By: #### L 500.2500, L100.0100 #### [facility] [address] [place], [address] CL Normal 98-107 [facility] Comment on above: Result Comment: Canc elled via OM: Order cancelled - Patient discharged Performed By: #### L 500.2500, L100.0100 #### [facility] [address] [place], [address] CO2 Normal 21.0-32.0 [facility] Comment on above: Result Comment: Canc elled via OM: Order cancelled - Patient discharged Performed By: #### L 500.2500, L100.0100 #### [facility] [address] [place], [address] CREAT,SERUM Normal 0.70-1.30 [facility] Comment on above: Result Comment: Canc elled via OM: Order cancelled - Patient discharged Performed By: #### L 500.2500, L100.0100 #### [facility] [address] [place], [address] EST GFR Normal >60 [facility] Comment on above: Result Comment: Canc elled via OM: Order cancelled - Patient discharged Performed By: #### L 500.2500, L100.0100 #### [facility] [address] [place], [address] EST GFR - AA Normal >60 [facility] Comment on above: Result Comment: Canc elled via OM: Order cancelled - Patient discharged Performed By: #### L 500.2500, L100.0100 #### [facility] [address] [place], [address] GAP Normal 5-15 [facility] Comment on above: Result Comment: Canc elled via OM: Order cancelled - Patient discharged Performed By: #### L 500.2500, L100.0100 #### [facility] [address] [place], [address] GLU Normal 74-106 [facility] Comment on above: Result Comment: Canc elled via OM: Order cancelled - Patient discharged Performed By: #### L 500.2500, L100.0100 #### [facility] [address] [place], [address] Potassium Normal 3.5-5.1 [facility] Comment on above: Result Comment: Canc elled via OM: Order cancelled - Patient discharged Performed By: #### L 500.2500, L100.0100 #### [facility] [address] [place], [address] Basic Metabolic Profile (BMP) Normal 136-145 [facility] Comment on above: Result Comment: Canc elled via OM: Order cancelled - Patient discharged Performed By: #### L 500.2500, L100.0100 #### [facility] [address] [place], [address] CBC W/Diff, Automatedon 11-0 Absolute Neut Normal 2.0-7.7 [facility] Comment on above: Result Comment: Canc elled via OM: Order cancelled - Patient discharged Performed By: #### L 500.2500, L100.0100 #### [facility] Laboratory [address] [place], [address] HCT Normal 40-54 [facility] Comment on above: Result Comment: Canc elled via OM: Order cancelled - Patient discharged Performed By: #### L 500.2500, L100.0100 #### [facility] Laboratory [address] [place], [address] HGB Normal 13.0-16.5 [facility] Comment on above: Result Comment: Canc elled via OM: Order cancelled - Patient discharged Performed By: #### L 500.2500, L100.0100 #### [facility] [address] [place], [address] MCH Normal 27.0-32.0 [facility] Comment on above: Result Comment: Canc elled via OM: Order cancelled - Patient discharged Performed By: #### L 500.2500, L100.0100 #### [facility] [address] [place], [address] MCHC Normal 32-36 [facility] Comment on above: Result Comment: Canc elled via OM: Order cancelled - Patient discharged Performed By: #### L 500.2500, L100.0100 #### [facility] [address] [place], [address] MCV Normal 80-94 [facility] Comment on above: Result Comment: Canc elled via OM: Order cancelled - Patient discharged Performed By: #### L 500.2500, L100.0100 #### [facility] [address] [place], [address] NEUT% Normal 47-70 [facility] Comment on above: Result Comment: Canc elled via OM: Order cancelled - Patient discharged Performed By: #### L 500.2500, L100.0100 #### [facility] [address] [place], [address] PLT Normal 150-450 [facility] Comment on above: Result Comment: Canc elled via OM: Order cancelled - Patient discharged Performed By: #### L 500.2500, L100.0100 #### [facility] [address] [place], [address] RBC Normal 4.6-6.2 [facility] Comment on above: Result Comment: Canc elled via OM: Order cancelled - Patient discharged Performed By: #### L 500.2500, L100.0100 #### [facility] [address] [place], [address] RDW CV Normal 11.6-14.6 [facility] Comment on above: Result Comment: Canc elled via OM: Order cancelled - Patient discharged Performed By: #### L 500.2500, L100.0100 #### [facility] Laboratory [address] [place], [address] RDW SD Normal 35.1-43.9 [facility] Comment on above: Result Comment: Canc elled via OM: Order cancelled - Patient discharged Performed By: #### L 500.2500, L100.0100 #### [facility] [address] [place], [address] WBC Normal 4.4-11.0 [facility] Comment on above: Result Comment: Canc elled via OM: Order cancelled - Patient discharged Performed By: #### L 500.2500, L100.0100 #### [facility] [address] [place], [address] CASE MANAGEMon 12-23-2023 CASE MANAGEM Normal [facility] CASE MANAGEM Normal [facility] CASE MANAGEM Normal [facility] CBC W Auto Differential pane l (Bld)on 12-23-2023 Basophils (Bld) [#/Vol] 0.15 10*3/uL High <0.11 [facility] Comment on above: Order Comment: Speci men Type: BLOOD SPECIMENOrdering Facility: [facility] Address: [address] [place] [address] Performed By: #### 5 7021-8 ####[facility] LABORATORYCLIA [id number] [address] [place] Basophils/100 WBC (Bld) 1.0 % Normal [facility] Comment on above: Order Comment: Speci men Type: BLOOD SPECIMENOrdering Facility: [facility] Address: [address] [place] [address] Performed By: #### 5 7021-8 ####[facility] LABORATORYCLIA [id number] [place] [address] [place] Differential cell count method Nom (Bld) Manual Normal [facility] Comment on above: Order Comment: Speci men Type: BLOOD SPECIMENOrdering Facility: [facility] Address: [address] [place] [address] Performed By: #### 5 7021-8 ####[facility]ORYCLIA [id number] [address] Eosinophils (Bld) [#/Vol] 0.30 10*3/uL Normal <0.46 [facility] Comment on above: Order Comment: Speci men Type: BLOOD SPECIMENOrdering Facility: [facility] Address: [address] [place] [address] Performed By: #### 5 7021-8 ####[facility] LABORATORYCLIA [id number] [address] Eosinophils/100 WBC (Bld) 2.0 % Normal [facility] Comment on above: Order Comment: Speci men Type: BLOOD SPECIMENOrdering Facility: [facility] Address: [address] [place] [address] Performed By: #### 5 7021-8 ####[facility] LABORATORYCLIA [id number] [address] Erythrocyte distribution width (RBC) [Ratio] 14.1 % Normal 11.5-15.0 [facility] Comment on above: Order Comment: Speci men Type: BLOOD SPECIMENOrdering Facility: [facility] Address: [address] [place] [address] Performed By: #### 5 7021-8 ####[facility] LABORATORYCLIA [id number] [address] Hematocrit (Bld) [Volume fraction] 32.7 % Low 39.0-51.0 [facility] Comment on above: Order Comment: Speci men Type: BLOOD SPECIMENOrdering Facility: [facility] Address: [address] [place] [address] Performed By: #### 5 7021-8 ####[facility]ATORYCLIA [id number] [address] Hemoglobin (Bld) [Mass/Vol] 10.5 g/dL Low 13.0-17.0 [facility] Comment on above: Order Comment: Speci men Type: BLOOD SPECIMENOrdering Facility: [facility] Address: [address] [place] [address] Performed By: #### 5 7021-8 ####[facility] LABORATORYCLIA [id number] [address] [place] Lymphocytes (Bld) [#/Vol] 1.06 10*3/uL Normal 1.00-4.00 [facility] Comment on above: Order Comment: Speci men Type: BLOOD SPECIMENOrdering Facility: [facility] Address: [address] [place] [address] Performed By: #### 5 7021-8 ####[facility] LABORATORYCLIA [id number] [address] OF [facility] Lymphocytes/100 WBC (Bld) 7.0 % Normal [facility] Comment on above: Order Comment: Speci men Type: BLOOD SPECIMENOrdering Facility: [facility] Address: [address] [place] [address] Performed By: #### 5 7021-8 ####[facility] LABORATORYCLIA [id number] [place] [address] [place] MCH (RBC) [Entitic mass] 30.0 pg Normal 26.0-34.0 [facility] Comment on above: Order Comment: Speci men Type: BLOOD SPECIMENOrdering Facility: [facility] Address: [address] [place] [address] Performed By: #### 5 7021-8 ####[facility] LABORATORYCLIA [id number] [address] [place] MCHC (RBC) [Mass/Vol] 32.1 g/dL Normal 30.5-36.0 [facility] Comment on above: Order Comment: Speci men Type: BLOOD SPECIMENOrdering Facility: [facility] Address: [address] [place] [address] Performed By: #### 5 7021-8 ####[facility]ORATORYCLIA [id number] [address] [place] MCV (RBC) [Entitic vol] 93.4 fL Normal 80.0-100.0 [facility] Comment on above: Order Comment: Speci men Type: BLOOD SPECIMENOrdering Facility: [facility] Address: [address] [place] [address] Performed By: #### 5 7021-8 ####[facility]ATORYCLIA [id number] [address] [place] Metamyelocytes/100 WBC (Bld) 3.0 % Normal [facility] Comment on above: Order Comment: Speci men Type: BLOOD SPECIMENOrdering Facility: [facility] Address: [address] [place] [address] Performed By: #### 5 7021-8 ####[facility] LABORATORYCLIA [id number] [address] [place] Monocytes (Bld) [#/Vol] 0.75 10*3/uL Normal <0.87 [facility] Comment on above: Order Comment: Speci men Type: BLOOD SPECIMENOrdering Facility: [facility] Address: [address] [place] [address] Performed By: #### 5 7021-8 ####[facility] LABORATORYCLIA [id number] [address] Monocytes/100 WBC (Bld) 5.0 % Normal [facility] Comment on above: Order Comment: Speci men Type: BLOOD SPECIMENOrdering Facility: [facility] Address: [address] [place] [address] Performed By: #### 5 7021-8 ####[facility]ORATORYCLIA [id number] [address] [place] MYELO% 1.0 % Normal [facility] Comment on above: Order Comment: Speci men Type: BLOOD SPECIMENOrdering Facility: [facility] Address: [address] [place] [address] Performed By: #### 5 7021-8 ####[facility]ORATORYCLIA [id number] [place] [address] [place] Neutrophils (Bld) [#/Vol] 12.22 10*3/uL High 1.45-7.50 [facility] Comment on above: Order Comment: Speci men Type: BLOOD SPECIMENOrdering Facility: [facility] Address: [address] [place] [address] Performed By: #### 5 7021-8 ####[facility] LABORATORYCLIA [id number] [address] [place] Neutrophils/100 WBC (Bld) 81.0 % Normal [facility] Comment on above: Order Comment: Speci men Type: BLOOD SPECIMENOrdering Facility: [facility] Address: [address] [place] [address] Performed By: #### 5 7021-8 ####[facility] LABORATORYCLIA [id number] [address] [place] Nucleated RBC (Bld) [#/Vol] 10*3/uL Normal <0.01 [facility] Comment on above: Order Comment: Speci men Type: BLOOD SPECIMENOrdering Facility: [facility] Address: [address] [place] [address] Performed By: #### 5 7021-8 ####[facility] LABORATORYCLIA [id number] [address] [place] Nucleated RBC/100 WBC (Bld) [Ratio] 0.0 /100 WBC Normal [facility] Comment on above: Order Comment: Speci men Type: BLOOD SPECIMENOrdering Facility: [facility] Address: [address] [place] [address] Performed By: #### 5 7021-8 ####[facility] LABORATORYCLIA [id number] [address] [place] Platelet mean volume (Bld) [Entitic vol] 9.5 fL Normal 9.0-12.7 [facility] Comment on above: Order Comment: Speci men Type: BLOOD SPECIMENOrdering Facility: [facility] Address: [address] [place] [address] Performed By: #### 5 7021-8 ####[facility] LABORATORYCLIA [id number] [address] Platelets (Bld) [#/Vol] 380 10*3/uL Normal 150-400 [facility] Comment on above: Order Comment: Speci men Type: BLOOD SPECIMENOrdering Facility: [facility] Address: [facility] [place] [address] Performed By: #### 5 7021-8 ####[facility] LABORATORYCLIA [id number] [address] [place] Platelets Estimate (Bld) [#/Vol] Adequate Normal [facility] Comment on above: Order Comment: Speci men Type: BLOOD SPECIMENOrdering Facility: [facility] Address: [address] [place] [address] Performed By: #### 5 7021-8 ####[facility] LABORATORYCLIA [id number] [address] [place] RBC (Bld) [#/Vol] 3.50 10*6/uL Low 4.20-6.00 [facility] Comment on above: Order Comment: Speci men Type: BLOOD SPECIMENOrdering Facility: [facility] Address: [address] [place] [address] Performed By: #### 5 7021-8 ####[facility] LABORATORYCLIA [id number] [address] [place] RED CELL MORPH Reviewed: normal Normal [facility] Comment on above: Order Comment: Speci men Type: BLOOD SPECIMENOrdering Facility: [facility] Address: [address] [place] [address] Performed By: #### 5 7021-8 ####[facility] LABORATORYCLIA [id number] [address] [place] WBC (Bld) [#/Vol] 15.09 10*3/uL High 3.70-11.00 [facility] Comment on above: Order Comment: Speci men Type: BLOOD SPECIMENOrdering Facility: [facility] Address: [address] [place] [address] Performed By: #### 5 7021-8 ####[facility] LABORATORYCLIA [id number] [place] [address] [place] CNDSon 12-23-2023 CNDS Normal [facility] Comprehensive metabolic 2000 panelon 12-23-2023 Albumin [Mass/Vol] 2.9 g/dL Low 3.9-4.9 [facility] Comment on above: Order Comment: Speci men Type: BLOOD SPECIMENOrdering Facility: [facility] Address: [address] [place] [address] Performed By: #### 2 4323-8 ####[facility] LABORATORYCLIA [id number] [place] [address] [place] ALP [Catalytic activity/Vol] 184 U/L High 38-113 [facility] Comment on above: Order Comment: Speci men Type: BLOOD SPECIMENOrdering Facility: [facility] Address: [address] [place] [address] Performed By: #### 2 4323-8 ####[facility] LABORATORYCLIA [id number] [place] [address] [place] ALT With P-5'-P [Catalytic activity/Vol] 22 U/L Normal 10-54 [facility] Comment on above: Order Comment: Speci men Type: BLOOD SPECIMENOrdering Facility: [facility] Address: [address] [place] [address] Performed By: #### 2 4323-8 ####[facility] LABORATORYCLIA [id number] [place] [address] [place] Anion gap [Moles/Vol] 10 mmol/L Normal 8-15 [facility] Comment on above: Order Comment: Speci men Type: BLOOD SPECIMENOrdering Facility: [facility] Address: [address] [place] [address] Performed By: #### 2 4323-8 ####[facility]ATORYCLIA [id number] [place] [address] [place] AST With P-5'-P [Catalytic activity/Vol] 25 U/L Normal 14-40 [facility] Comment on above: Order Comment: Speci men Type: BLOOD SPECIMENOrdering Facility: [facility] Address: [address] [place] [address] Performed By: #### 2 4323-8 ####[facility] LABORATORYCLIA [id number] [place] [address] [place] Bilirubin [Mass/Vol] 0.3 mg/dL Normal 0.2-1.3 [facility] Comment on above: Order Comment: Speci men Type: BLOOD SPECIMENOrdering Facility: [facility] Address: [address] [place] [address] Performed By: #### 2 4323-8 ####[facility] LABORATORYCLIA [id number] [place] [address] [place] Calcium [Mass/Vol] 8.6 mg/dL Normal 8.5-10.2 [facility] Comment on above: Order Comment: Speci men Type: BLOOD SPECIMENOrdering Facility: [facility] Address: [address] [place] [address] Performed By: #### 2 4323-8 ####[facility]ATORYCLIA [id number] [place] [address] [place] Chloride [Moles/Vol] 93 mmol/L Low 98-107 [facility] Comment on above: Order Comment: Speci men Type: BLOOD SPECIMENOrdering Facility: [facility] Address: [address] [place] [address] Performed By: #### 2 4323-8 ####[facility]ORATORYCLIA [id number] [place] [address] [place] CO2 [Moles/Vol] 25 mmol/L Normal 22-30 [facility] Comment on above: Order Comment: Speci men Type: BLOOD SPECIMENOrdering Facility: [facility] Address: [address] [place] [address] Performed By: #### 2 4323-8 ####[facility] LABORATORYCLIA [id number] [place] [address] [place] Creatinine [Mass/Vol] 0.68 mg/dL Low 0.73-1.22 [facility] Comment on above: Order Comment: Leny patel Type: BLOOD SPECIMENOrdering Facility: [facility] Address: [address] [place] [address] Performed By: #### 2 4323-8 ####[facility] [id number] [address] Creatinine and Glomerular filtration rate.predicted panel (S/P/Bld) 91 mL/min/1.73m??? Normal >=60 [facility] Comment on above: Order Comment: Leny patel Type: BLOOD SPECIMENOrdering Facility: [facility] Address: [address] [place] [address] Result Comment: Alexia mated Glomerular Filtration Rate (eGFR) is calculated using the 2020 CKD-EPI creatinine equation. This equation utilizes serum creatinine, sex, and age as parameters. The creatinine assay has traceable calibration to isotope dilution-mass spectrometry. Refer to KDIGO guidelines for clinical interpretation. In patients with unstable renal function, e.g. those with acute kidney injury, the eGFR may not accurately reflect actual GFR. Performed By: #### 2 4323-8 ####[facility] LABORATORYIA [id number] [address] [place] Glucose [Mass/Vol] 148 mg/dL High 74-99 [facility] Comment on above: Order Comment: Leny amanda Type: BLOOD SPECIMENOrdering Facility: [facility] Address: [address] [place] [address] Result Comment: The [place] [employer] (ADA) provides guidance for cutoff values for fasting glucose and random glucose. The ADA defines fasting as no caloric intake for at least 8 hours. Fasting plasma glucose results between 100 to 125 mg/dL indicate increased risk for diabetes (prediabetes).Fasting plasma glucose results greater than or equal to 126 mg/dL meet the criteria for diagnosis of diabetes. In the absence of unequivocal hyperglycemia, results should be confirmed by repeat testing. In a patient with classic symptoms of hyperglycemia or hyperglycemic crisis, random plasma glucose results greater than or equal to 200 mg/dL meet the criteria for diagnosis of diabetes.Reference: Standards of Medical Care in Diabetes 2016, [place] [employer]. Diabetes Care. 2016.39(Suppl 1). Performed By: #### 2 4323-8 ####[facility]ATORYCLIA [id number] [address] [place] Potassium [Moles/Vol] 3.7 mmol/L Normal 3.7-5.1 [facility] Comment on above: Order Comment: Speci men Type: BLOOD SPECIMENOrdering Facility: [facility] Address: [address] [place] [address] Performed By: #### 2 4323-8 ####[facility]ORATORYCLIA [id number] [address] [place] Protein [Mass/Vol] 5.8 g/dL Low 6.3-8.0 [facility] Comment on above: Order Comment: Shyanni men Type: BLOOD SPECIMENOrdering Facility: [facility] Address: [address] [place] [address] Performed By: #### 2 4323-8 ####[facility] LABORATORYCLIA [id number] [address] STATES [facility] Sodium [Moles/Vol] 128 mmol/L Low 136-144 [facility] Comment on above: Order Comment: Shyanni men Type: BLOOD SPECIMENOrdering Facility: [facility] Address: [address] [place] [address] Performed By: #### 2 4323-8 ####[facility]ORYCLIA [id number] [place] [address] [place] Urea nitrogen [Mass/Vol] 11 mg/dL Normal 9-24 [facility] Comment on above: Order Comment: Shyanni men Type: BLOOD SPECIMENOrdering Facility: [facility] Address: [address] [place] [address] Performed By: #### 2 4323-8 ####[facility]ATORYCLIA [id number] [place] [address] [place] Osmolality Uron 12-23-2023 Osmolality (U) [Osmolality] 801 mosm/kg Normal 50-1200 [facility] Comment on above: Order Comment: Speci men Type: URINE SPECIMENOrdering Facility: [facility] Address: [address] [place] [address] Performed By: #### 2 695-5, 93549-8 ####[facility]ORYCLIA [id number] [place] [address] [place] Sodium ?Tm Ur-sCncon 024 Sodium Unsp time (U) [Moles/Vol] 60 mmol/L Normal 14-216 [facility] Comment on above: Order Comment: Speci men Type: URINE SPECIMENOrdering Facility: [facility] Address: [address] [place] [address] Performed By: #### 2 695-5, 90015-8 ####[facility]ORYCLIA [id number] [address] [place] CASE MANAGEMon 12-22-2023 CASE MANAGEM Normal [facility] CONSULT PROGon 12-22-2023 CONSULT PROG Normal [facility] NUTRITIONon 12-22-2023 NUTRITION Normal [facility] THERAPY NTon 12-22-2023 THERAPY NT Normal [facility] THERAPY NT Normal [facility] BRIEF OP NOTon 12-21-2023 BRIEF OP NOT Normal [facility] CASE MANAGEMon 12-21-2023 CASE MANAGEM Normal [facility] CBC W Auto Differential pane l (Bld)on 12-21-2023 Basophils (Bld) [#/Vol] 0.28 10*3/uL High <0.11 [facility] Comment on above: Order Comment: Speci men Type: BLOOD SPECIMENOrdering Facility: [facility] Address: [address] [place] [address] Performed By: #### 5 7021-8 ####[facility]ORYCLIA [id number] [address] STATES [facility] Basophils/100 WBC (Bld) 2.0 % Normal [facility] Comment on above: Order Comment: Speci men Type: BLOOD SPECIMENOrdering Facility: [facility] Address: [address] [place] [address] Performed By: #### 5 7021-8 ####[facility]ORYCLIA [id number] [address] [place] Differential cell count method Nom (Bld) Manual Normal [facility] Comment on above: Order Comment: Speci men Type: BLOOD SPECIMENOrdering Facility: [facility] Address: [address] [place] [address] Performed By: #### 5 7021-8 ####[facility]ORYCLIA [id number] [address] Eosinophils (Bld) [#/Vol] 0.41 10*3/uL Normal <0.46 [facility] Comment on above: Order Comment: Speci men Type: BLOOD SPECIMENOrdering Facility: [facility] Address: [address] [place] [address] Performed By: #### 5 7021-8 ####[facility]ORYCLIA [id number] [address] Eosinophils/100 WBC (Bld) 3.0 % Normal [facility] Comment on above: Order Comment: Speci men Type: BLOOD SPECIMENOrdering Facility: [facility] Address: [address] [place] [address] Performed By: #### 5 7021-8 ####[facility]ORYCLIA [id number] [address] Erythrocyte distribution width (RBC) [Ratio] 14.2 % Normal 11.5-15.0 [facility] Comment on above: Order Comment: Speci men Type: BLOOD SPECIMENOrdering Facility: [facility] Address: [address] [place] [address] Performed By: #### 5 7021-8 ####[facility]ORATORYCLIA [id number] [address] [place] Hematocrit (Bld) [Volume fraction] 33.6 % Low 39.0-51.0 [facility] Comment on above: Order Comment: Speci men Type: BLOOD SPECIMENOrdering Facility: [facility] Address: [address] [place] [address] Performed By: #### 5 7021-8 ####[facility]ORATORYCLIA [id number] [address] [place] Hemoglobin (Bld) [Mass/Vol] 10.7 g/dL Low 13.0-17.0 [facility] Comment on above: Order Comment: Speci men Type: BLOOD SPECIMENOrdering Facility: [facility] Address: [address] [place] [address] Performed By: #### 5 7021-8 ####[facility] LABORATORYCLIA [id number] [address] [place] Lymphocytes (Bld) [#/Vol] 0.28 10*3/uL Low 1.00-4.00 [facility] Comment on above: Order Comment: Speci men Type: BLOOD SPECIMENOrdering Facility: [facility] Address: [address] [place] [address] Performed By: #### 5 7021-8 ####[facility]ORATORYCLIA [id number] [address] Lymphocytes/100 WBC (Bld) 2.0 % Normal [facility] Comment on above: Order Comment: Speci men Type: BLOOD SPECIMENOrdering Facility: [facility] Address: [address] [place] [address] Performed By: #### 5 7021-8 ####[facility] LABORATORYCLIA [id number] [address] [place] MCH (RBC) [Entitic mass] 30.3 pg Normal 26.0-34.0 [facility] Comment on above: Order Comment: Speci men Type: BLOOD SPECIMENOrdering Facility: [facility] Address: [address] [place] [address] Performed By: #### 5 7021-8 ####[facility]ORATORYCLIA [id number] [address] [place] MCHC (RBC) [Mass/Vol] 31.8 g/dL Normal 30.5-36.0 [facility] Comment on above: Order Comment: Speci men Type: BLOOD SPECIMENOrdering Facility: [facility] Address: [address] [place] [address] Performed By: #### 5 7021-8 ####[facility]ORATORYCLIA [id number] [address] MCV (RBC) [Entitic vol] 95.2 fL Normal 80.0-100.0 [facility] Comment on above: Order Comment: Speci men Type: BLOOD SPECIMENOrdering Facility: [facility] Address: [address] [place] [address] Performed By: #### 5 7021-8 ####[facility]ATORYCLIA [id number] [address] Metamyelocytes/100 WBC (Bld) 3.0 % Normal [facility] Comment on above: Order Comment: Speci men Type: BLOOD SPECIMENOrdering Facility: [facility] Address: [address] [place] [address] Performed By: #### 5 7021-8 ####[facility]ATORYCLIA [id number] [address] Monocytes (Bld) [#/Vol] 0.28 10*3/uL Normal <0.87 [facility] Comment on above: Order Comment: Speci men Type: BLOOD SPECIMENOrdering Facility: [facility] Address: [address] [place] [address] Performed By: #### 5 7021-8 ####[facility]ATORYCLIA [id number] [address] Monocytes/100 WBC (Bld) 2.0 % Normal [facility] Comment on above: Order Comment: Speci men Type: BLOOD SPECIMENOrdering Facility: [facility] Address: [address] [place] [address] Performed By: #### 5 7021-8 ####[facility]ATORYCLIA [id number] [address] [place] MYELO% 1.0 % Normal [facility] Comment on above: Order Comment: Speci men Type: BLOOD SPECIMENOrdering Facility: [facility] Address: [address] [place] [address] Performed By: #### 5 7021-8 ####[facility]ORYCLIA [id number] [address] [place] Neutrophils (Bld) [#/Vol] 12.00 10*3/uL High 1.45-7.50 [facility] Comment on above: Order Comment: Speci men Type: BLOOD SPECIMENOrdering Facility: [facility] Address: [address] [place] [address] Performed By: #### 5 7021-8 ####[facility]ORYCLIA [id number] [address] [place] Neutrophils/100 WBC (Bld) 87.0 % Normal [facility] Comment on above: Order Comment: Speci men Type: BLOOD SPECIMENOrdering Facility: [facility] Address: [address] [place] [address] Performed By: #### 5 7021-8 ####[facility]ORYCLIA [id number] [address] [place] Nucleated RBC (Bld) [#/Vol] 10*3/uL Normal <0.01 [facility] Comment on above: Order Comment: Speci men Type: BLOOD SPECIMENOrdering Facility: [facility] Address: [address] [place] [address] Performed By: #### 5 7021-8 ####[facility]ORYCLIA [id number] [address] Nucleated RBC/100 WBC (Bld) [Ratio] 0.0 /100 WBC Normal [facility] Comment on above: Order Comment: Speci men Type: BLOOD SPECIMENOrdering Facility: [facility] Address: [address] [place] [address] Performed By: #### 5 7021-8 ####[facility]ORATORYCLIA [id number] [place] [address] [place] Platelet mean volume (Bld) [Entitic vol] 9.6 fL Normal 9.0-12.7 [facility] Comment on above: Order Comment: Speci men Type: BLOOD SPECIMENOrdering Facility: [facility] Address: [address] [place] [address] Performed By: #### 5 7021-8 ####[facility]ATORYCLIA [id number] [place] [address] [place] Platelets (Bld) [#/Vol] 295 10*3/uL Normal 150-400 [facility] Comment on above: Order Comment: Speci men Type: BLOOD SPECIMENOrdering Facility: [facility] Address: [address] [place] [address] Performed By: #### 5 7021-8 ####[facility]ATORYCLIA [id number] [place] [address] [place] Platelets Estimate (Bld) [#/Vol] Adequate Normal [facility] Comment on above: Order Comment: Speci men Type: BLOOD SPECIMENOrdering Facility: [facility] Address: [address] [place] [address] Performed By: #### 5 7021-8 ####[facility]ATORYCLIA [id number] [place] [address] [place] RBC (Bld) [#/Vol] 3.53 10*6/uL Low 4.20-6.00 [facility] Comment on above: Order Comment: Speci men Type: BLOOD SPECIMENOrdering Facility: [facility] Address: [address] [place] [address] Performed By: #### 5 7021-8 ####[facility]ORATORYCLIA [id number] [address] [place] RED CELL MORPH Reviewed: normal Normal [facility] Comment on above: Order Comment: Speci men Type: BLOOD SPECIMENOrdering Facility: [facility] Address: [address] [place] [address] Performed By: #### 5 7021-8 ####[facility]ATORYCLIA [id number] [address] OF [facility] WBC (Bld) [#/Vol] 13.79 10*3/uL High 3.70-11.00 [facility] Comment on above: Order Comment: Speci men Type: BLOOD SPECIMENOrdering Facility: [facility] Address: [address] [place] [address] Performed By: #### 5 7021-8 ####[facility]ATORYCLIA [id number] [address] [place] CK SerPl-cCncon 12-21-2023 CK [Catalytic activity/Vol] 17 U/L Low 51-298 [facility] Comment on above: Order Comment: Speci men Type: BLOOD SPECIMENOrdering Facility: [facility] Address: [address] [place] [address] Performed By: #### 2 157-6, 27927-4 ####[facility]ATORYCLIA [id number] [address] OF [facility] HISTORY PHYSICALon HISTORY PHYSICAL Normal [facility] IR CHOLECYSTOSTOMY PERCon IR CHOLECYSTOSTOMY PERC Normal [facility] Renal function 2000 panelon 12-21-2023 Albumin [Mass/Vol] 2.7 g/dL Low 3.9-4.9 [facility] Comment on above: Order Comment: Speci men Type: BLOOD SPECIMENOrdering Facility: [facility] Address: [address] [place] [address] Performed By: #### 2 157-6, 37526-9 ####[facility]ATORYCLIA [id number] [address] [place] Anion gap [Moles/Vol] 12 mmol/L Normal 8-15 [facility] Comment on above: Order Comment: Speci men Type: BLOOD SPECIMENOrdering Facility: [facility] Address: [address] [place] [address] Performed By: #### 2 157-6, 15684-0 ####[facility]ATORYCLIA [id number] [place] [address] [place] Calcium [Mass/Vol] 8.4 mg/dL Low 8.5-10.2 [facility] Comment on above: Order Comment: Speci men Type: BLOOD SPECIMENOrdering Facility: [facility] Address: [address] [place] [address] Performed By: #### 2 157-6, 49680-2 ####[facility]ATORYCLIA [id number] [place] [address] [place] Chloride [Moles/Vol] 95 mmol/L Low 98-107 [facility] Comment on above: Order Comment: Speci men Type: BLOOD SPECIMENOrdering Facility: [facility] Address: [address] [place] [address] Performed By: #### 2 157-6, 38305-8 ####[facility]ATORYCLIA [id number] [place] [address] [place] CO2 [Moles/Vol] 24 mmol/L Normal 22-30 [facility] Comment on above: Order Comment: Speci men Type: BLOOD SPECIMENOrdering Facility: [facility] Address: [facility] [place] [place] [address] Performed By: #### 2 157-6, 89685-9 ####[facility]ATORYCLIA [id number] [place] [address] [place] Creatinine [Mass/Vol] 0.67 mg/dL Low 0.73-1.22 [facility] Comment on above: Order Comment: Speci men Type: BLOOD SPECIMENOrdering Facility: [facility] Address: [address] [place] [address] Performed By: #### 2 157-6, 93486-7 ####[facility]ORATORYCLIA [id number] [address] [place] Creatinine and Glomerular filtration rate.predicted panel (S/P/Bld) 91 mL/min/1.73m??? Normal >=60 [facility] Comment on above: Order Comment: Leny patel Type: BLOOD SPECIMENOrdering Facility: [facility] Address: [address] [place] [address] Result Comment: Alexia mated Glomerular Filtration Rate (eGFR) is calculated using the 2020 CKD-EPI creatinine equation. This equation utilizes serum creatinine, sex, and age as parameters. The creatinine assay has traceable calibration to isotope dilution-mass spectrometry. Refer to KDIGO guidelines for clinical interpretation. In patients with unstable renal function, e.g. those with acute kidney injury, the eGFR may not accurately reflect actual GFR. Performed By: #### 2 157-6, 72584-5 ####[facility]ATORYCLIA [id number] [place] [address] [place] Glucose [Mass/Vol] 93 mg/dL Normal 74-99 [facility] Comment on above: Order Comment: Leny patel Type: BLOOD SPECIMENOrdering Facility: [facility] Address: [address] [place] [address] Result Comment: The [place] [employer] (ADA) provides guidance for cutoff values for fasting glucose and random glucose. The ADA defines fasting as no caloric intake for at least 8 hours. Fasting plasma glucose results between 100 to 125 mg/dL indicate increased risk for diabetes (prediabetes).Fasting plasma glucose results greater than or equal to 126 mg/dL meet the criteria for diagnosis of diabetes. In the absence of unequivocal hyperglycemia, results should be confirmed by repeat testing. In a patient with classic symptoms of hyperglycemia or hyperglycemic crisis, random plasma glucose results greater than or equal to 200 mg/dL meet the criteria for diagnosis of diabetes.Reference: Standards of Medical Care in Diabetes 2016, [place] [employer]. Diabetes Care. 2016.39(Suppl 1). Performed By: #### 2 157-6, 11298-5 ####[facility]ATORYCLIA [id number] [place] [address] [place] Phosphate [Mass/Vol] 2.7 mg/dL Normal 2.7-4.8 [facility] Comment on above: Order Comment: Leny patel Type: BLOOD SPECIMENOrdering Facility: [facility] Address: [address] [place] [address] Performed By: #### 2 157-6, 00941-3 ####[facility]ORYCLIA [id number] [place] [address] [place] Potassium [Moles/Vol] 4.2 mmol/L Normal 3.7-5.1 [facility] Comment on above: Order Comment: Speci men Type: BLOOD SPECIMENOrdering Facility: [facility] Address: [address] [place] [address] Performed By: #### 2 157-6, 61380-7 ####[facility]ORYCLIA [id number] [place] [address] [place] Sodium [Moles/Vol] 131 mmol/L Low 136-144 [facility] Comment on above: Order Comment: Speci men Type: BLOOD SPECIMENOrdering Facility: [facility] Address: [address] [place] [address] Performed By: #### 2 157-6, 35532-7 ####[facility]ATORYCLIA [id number] [place] [address] [place] Urea nitrogen [Mass/Vol] 9 mg/dL Normal 9-24 [facility] Comment on above: Order Comment: Speci men Type: BLOOD SPECIMENOrdering Facility: [facility] Address: [address] [place] [address] Performed By: #### 2 157-6, 14309-7 ####[facility]ORYCLIA [id number] [place] [address] [place] Basic metabolic 2000 panelon 12-20-2023 Anion gap [Moles/Vol] 10 mmol/L Normal 8-15 [facility] Comment on above: Order Comment: Speci men Type: BLOOD SPECIMENOrdering Facility: [facility] Address: [address] [place] [address] Performed By: #### 2 4321-2 ####[facility]ORYCLIA [id number] [place] [address] [place] Calcium [Mass/Vol] 8.6 mg/dL Normal 8.5-10.2 [facility] Comment on above: Order Comment: Speci men Type: BLOOD SPECIMENOrdering Facility: [facility] Address: [address] [place] [address] Performed By: #### 2 4321-2 ####[facility]ATORYCLIA [id number] [place] [address] [place] Chloride [Moles/Vol] 95 mmol/L Low 98-107 [facility] Comment on above: Order Comment: Speci men Type: BLOOD SPECIMENOrdering Facility: [facility] Address: [address] [place] [address] Performed By: #### 2 4321-2 ####[facility]ATORYCLIA [id number] [place] [address] [place] CO2 [Moles/Vol] 26 mmol/L Normal 22-30 [facility] Comment on above: Order Comment: Speci men Type: BLOOD SPECIMENOrdering Facility: [facility] Address: [address] [place] [address] Performed By: #### 2 4321-2 ####[facility]ORYCLIA [id number] [address] [place] Creatinine [Mass/Vol] 0.76 mg/dL Normal 0.73-1.22 [facility] Comment on above: Order Comment: Speci men Type: BLOOD SPECIMENOrdering Facility: [facility] Address: [address] [place] [address] Performed By: #### 2 4321-2 ####[facility]ATORYCLIA [id number] [address] [place] Creatinine and Glomerular filtration rate.predicted panel (S/P/Bld) 88 mL/min/1.73m??? Normal >=60 [facility] Comment on above: Order Comment: Speci men Type: BLOOD SPECIMENOrdering Facility: [facility] Address: [address] [place] [address] Result Comment: Alexia mated Glomerular Filtration Rate (eGFR) is calculated using the 2020 CKD-EPI creatinine equation. This equation utilizes serum creatinine, sex, and age as parameters. The creatinine assay has traceable calibration to isotope dilution-mass spectrometry. Refer to KDIGO guidelines for clinical interpretation. In patients with unstable renal function, e.g. those with acute kidney injury, the eGFR may not accurately reflect actual GFR. Performed By: #### 2 4321-2 ####[facility]ATORYCLIA [id number] [place] [address] [place] Glucose [Mass/Vol] 100 mg/dL High 74-99 [facility] Comment on above: Order Comment: Speci men Type: BLOOD SPECIMENOrdering Facility: [facility] Address: [address] [place] [address] Result Comment: The [place] Diabetes [employer] (ADA) provides guidance for cutoff values for fasting glucose and random glucose. The ADA defines fasting as no caloric intake for at least 8 hours. Fasting plasma glucose results between 100 to 125 mg/dL indicate increased risk for diabetes (prediabetes).Fasting plasma glucose results greater than or equal to 126 mg/dL meet the criteria for diagnosis of diabetes. In the absence of unequivocal hyperglycemia, results should be confirmed by repeat testing. In a patient with classic symptoms of hyperglycemia or hyperglycemic crisis, random plasma glucose results greater than or equal to 200 mg/dL meet the criteria for diagnosis of diabetes.Reference: Standards of Medical Care in Diabetes 2016, [place] [employer]. Diabetes Care. 2016.39(Suppl 1). Performed By: #### 2 4321-2 ####[facility]ATORYCLIA [id number] [place] [address] [place] Potassium [Moles/Vol] 4.1 mmol/L Normal 3.7-5.1 [facility] Comment on above: Order Comment: Speci men Type: BLOOD SPECIMENOrdering Facility: [facility] Address: [address] [id number] Performed By: #### 2 4321-2 ####[facility]ORYCLIA [id number] [place] [address] [place] Sodium [Moles/Vol] 131 mmol/L Low 136-144 [facility] Comment on above: Order Comment: Speci men Type: BLOOD SPECIMENOrdering Facility: [facility] Address: [address] [place] [address] Performed By: #### 2 4321-2 ####[facility]ATORYCLIA [id number] [address] Urea nitrogen [Mass/Vol] 9 mg/dL Normal 9-24 [facility] Comment on above: Order Comment: Speci men Type: BLOOD SPECIMENOrdering Facility: [facility] Address: [address] [place] [address] Performed By: #### 2 4321-2 ####[facility]ATORYCLIA [id number] [address] CBC panel Auto (Bld)on 12-19 Erythrocyte distribution width (RBC) [Ratio] 14.2 % Normal 11.5-15.0 [facility] Comment on above: Order Comment: Speci men Type: BLOOD SPECIMENOrdering Facility: [facility] Address: [address] [place] [address] Performed By: #### 5 8410-2 ####[facility]ORYCLIA [id number] [address] Hematocrit (Bld) [Volume fraction] 33.3 % Low 39.0-51.0 [facility] Comment on above: Order Comment: Speci men Type: BLOOD SPECIMENOrdering Facility: [facility] Address: [address] [place] [address] Performed By: #### 5 8410-2 ####[facility]ORYCLIA [id number] [address] Hemoglobin (Bld) [Mass/Vol] 10.6 g/dL Low 13.0-17.0 [facility] Comment on above: Order Comment: Speci men Type: BLOOD SPECIMENOrdering Facility: [facility] Address: [address] [place] [address] Performed By: #### 5 8410-2 ####[facility]ATORYCLIA [id number] [address] MCH (RBC) [Entitic mass] 30.7 pg Normal 26.0-34.0 [facility] Comment on above: Order Comment: Speci men Type: BLOOD SPECIMENOrdering Facility: [facility] Address: [address] [place] [address] Performed By: #### 5 8410-2 ####[facility]ATORYCLIA [id number] [address] [place] MCHC (RBC) [Mass/Vol] 31.8 g/dL Normal 30.5-36.0 [facility] Comment on above: Order Comment: Speci men Type: BLOOD SPECIMENOrdering Facility: [facility] Address: [address] [place] [address] Performed By: #### 5 8410-2 ####[facility]ORATORYCLIA [id number] [address] STATES OF [facility] MCV (RBC) [Entitic vol] 96.5 fL Normal 80.0-100.0 [facility] Comment on above: Order Comment: Speci men Type: BLOOD SPECIMENOrdering Facility: [facility] Address: [address] [place] [address] Performed By: #### 5 8410-2 ####[facility]ATORYCLIA [id number] [address] OF [facility] Nucleated RBC (Bld) [#/Vol] 10*3/uL Normal <0.01 [facility] Comment on above: Order Comment: Speci men Type: BLOOD SPECIMENOrdering Facility: [facility] Address: [address] [place] [address] Performed By: #### 5 8410-2 ####[facility]ATORYCLIA [id number] [address] Platelet mean volume (Bld) [Entitic vol] 9.5 fL Normal 9.0-12.7 [facility] Comment on above: Order Comment: Speci men Type: BLOOD SPECIMENOrdering Facility: [facility] Address: [address] [place] [address] Performed By: #### 5 8410-2 ####[facility]ORATORYCLIA [id number] [place] [address] [place] [facility] Platelets (Bld) [#/Vol] 256 10*3/uL Normal 150-400 [facility] Comment on above: Order Comment: Speci men Type: BLOOD SPECIMENOrdering Facility: [facility] Address: [address] [place] [address] Performed By: #### 5 8410-2 ####[facility]ATORYCLIA [id number] [place] [address] [place] RBC (Bld) [#/Vol] 3.45 10*6/uL Low 4.20-6.00 [facility] Comment on above: Order Comment: Speci men Type: BLOOD SPECIMENOrdering Facility: [facility] Address: [address] [place] [address] Performed By: #### 5 8410-2 ####[facility]ATORYCLIA [id number] [address] WBC (Bld) [#/Vol] 11.45 10*3/uL High 3.70-11.00 [facility] Comment on above: Order Comment: Speci men Type: BLOOD SPECIMENOrdering Facility: [facility] Address: [address] [place] [address] Performed By: #### 5 8410-2 ####[facility]ORATORYCLIA [id number] [address] OF [place] NUTRITIONon 12-20-2023 NUTRITION Normal [facility] XR ABDOMEN 1V SUPINEon 12-19 XR ABDOMEN 1V SUPINE Normal [facility] Basic metabolic 2000 panelon 12-19-2023 Anion gap [Moles/Vol] 10 mmol/L Normal 8-15 [facility] Comment on above: Order Comment: Speci men Type: BLOOD SPECIMENOrdering Facility: [facility] Address: [address] [place] [address] Performed By: #### 2 4321-2 ####[facility]ATORYCLIA [id number] [place] [address] [place] Calcium [Mass/Vol] 8.5 mg/dL Normal 8.5-10.2 [facility] Comment on above: Order Comment: Speci men Type: BLOOD SPECIMENOrdering Facility: [facility] Address: [address] [place] [address] Performed By: #### 2 4321-2 ####[facility]ATORYCLIA [id number] [place] [address] [place] Chloride [Moles/Vol] 95 mmol/L Low 98-107 [facility] Comment on above: Order Comment: Speci men Type: BLOOD SPECIMENOrdering Facility: [facility] Address: [address] [place] [address] Performed By: #### 2 4321-2 ####[facility]ATORYCLIA [id number] [place] [address] [place] CO2 [Moles/Vol] 27 mmol/L Normal 22-30 [facility] Comment on above: Order Comment: Speci men Type: BLOOD SPECIMENOrdering Facility: [facility] Address: [address] [place] [address] Performed By: #### 2 4321-2 ####[facility]ATORYCLIA [id number] [place] [address] [place] Creatinine [Mass/Vol] 0.67 mg/dL Low 0.73-1.22 [facility] Comment on above: Order Comment: Speci men Type: BLOOD SPECIMENOrdering Facility: [facility] Address: [address] [place] [address] Performed By: #### 2 4321-2 ####[facility]ATORYCLIA [id number] [address] [place] Creatinine and Glomerular filtration rate.predicted panel (S/P/Bld) 91 mL/min/1.73m??? Normal >=60 [facility] Comment on above: Order Comment: Speci men Type: BLOOD SPECIMENOrdering Facility: [facility] Address: [address] [place] [address] Result Comment: Alexia mated Glomerular Filtration Rate (eGFR) is calculated using the 2020 CKD-EPI creatinine equation. This equation utilizes serum creatinine, sex, and age as parameters. The creatinine assay has traceable calibration to isotope dilution-mass spectrometry. Refer to KDIGO guidelines for clinical interpretation. In patients with unstable renal function, e.g. those with acute kidney injury, the eGFR may not accurately reflect actual GFR. Performed By: #### 2 4321-2 ####[facility]ATORYCLIA [id number] [place] [address] [place] Glucose [Mass/Vol] 94 mg/dL Normal 74-99 [facility] Comment on above: Order Comment: Leny patel Type: BLOOD SPECIMENOrdering Facility: [facility] Address: [address] [place] [address] Result Comment: The [place] [employer] (ADA) provides guidance for cutoff values for fasting glucose and random glucose. The ADA defines fasting as no caloric intake for at least 8 hours. Fasting plasma glucose results between 100 to 125 mg/dL indicate increased risk for diabetes (prediabetes).Fasting plasma glucose results greater than or equal to 126 mg/dL meet the criteria for diagnosis of diabetes. In the absence of unequivocal hyperglycemia, results should be confirmed by repeat testing. In a patient with classic symptoms of hyperglycemia or hyperglycemic crisis, random plasma glucose results greater than or equal to 200 mg/dL meet the criteria for diagnosis of diabetes.Reference: Standards of Medical Care in Diabetes 2016, [place] [employer]. Diabetes Care. 2016.39(Suppl 1). Performed By: #### 2 4321-2 ####[facility]ATORYCLIA [id number] [place] [id number] [place] Potassium [Moles/Vol] 3.9 mmol/L Normal 3.7-5.1 [facility] Comment on above: Order Comment: Leny patel Type: BLOOD SPECIMENOrdering Facility: [facility] Address: [address] [place] [id number] Performed By: #### 2 4321-2 ####[facility]ORATORYCLIA [id number] [place] [address] [place] Sodium [Moles/Vol] 132 mmol/L Low 136-144 [facility] Comment on above: Order Comment: Speci men Type: BLOOD SPECIMENOrdering Facility: [facility] Address: [address] [place] [address] Performed By: #### 2 4321-2 ####[facility]ATORYCLIA [id number] [address] STATES OF [facility] Urea nitrogen [Mass/Vol] 9 mg/dL Normal 9-24 [facility] Comment on above: Order Comment: Speci men Type: BLOOD SPECIMENOrdering Facility: [facility] Address: [address] [place] [address] Performed By: #### 2 4321-2 ####[facility]ATORYCLIA [id number] [address] OF [facility] CBC panel Auto (Bld)on 12-18 Erythrocyte distribution width (RBC) [Ratio] 14.5 % Normal 11.5-15.0 [facility] Comment on above: Order Comment: Speci men Type: BLOOD SPECIMENOrdering Facility: [facility] Address: [address] [place] [address] Performed By: #### 5 8410-2 ####[facility]ATORYCLIA [id number] [address] STATES OF [facility] Hematocrit (Bld) [Volume fraction] 33.6 % Low 39.0-51.0 [facility] Comment on above: Order Comment: Speci men Type: BLOOD SPECIMENOrdering Facility: [facility] Address: [address] [place] [address] Performed By: #### 5 8410-2 ####[facility]ATORYCLIA [id number] [address] [place] Hemoglobin (Bld) [Mass/Vol] 10.7 g/dL Low 13.0-17.0 [facility] Comment on above: Order Comment: Speci men Type: BLOOD SPECIMENOrdering Facility: [facility] Address: [address] [place] [address] Performed By: #### 5 8410-2 ####[facility]ATORYCLIA [id number] [address] STATES [facility] MCH (RBC) [Entitic mass] 30.6 pg Normal 26.0-34.0 [facility] Comment on above: Order Comment: Speci men Type: BLOOD SPECIMENOrdering Facility: [facility] Address: [address] [place] [address] Performed By: #### 5 8410-2 ####[facility]ATORYCLIA [id number] [address] OF [place] MCHC (RBC) [Mass/Vol] 31.8 g/dL Normal 30.5-36.0 [facility] Comment on above: Order Comment: Speci men Type: BLOOD SPECIMENOrdering Facility: [facility] Address: [address] [place] [address] Performed By: #### 5 8410-2 ####[facility]ATORYCLIA [id number] [address] STATES [facility] MCV (RBC) [Entitic vol] 96.0 fL Normal 80.0-100.0 [facility] Comment on above: Order Comment: Speci men Type: BLOOD SPECIMENOrdering Facility: [facility] Address: [address] [place] [address] Performed By: #### 5 8410-2 ####[facility]ATORYCLIA [id number] [address] Nucleated RBC (Bld) [#/Vol] 10*3/uL Normal <0.01 [facility] Comment on above: Order Comment: Speci men Type: BLOOD SPECIMENOrdering Facility: [facility] Address: [address] [place] [address] Performed By: #### 5 8410-2 ####[facility]ATORYCLIA [id number] [address] Platelet mean volume (Bld) [Entitic vol] 9.5 fL Normal 9.0-12.7 [facility] Comment on above: Order Comment: Speci men Type: BLOOD SPECIMENOrdering Facility: [facility] Address: [address] [place] [address] Performed By: #### 5 8410-2 ####[facility]ATORYCLIA [id number] [address] Platelets (Bld) [#/Vol] 246 10*3/uL Normal 150-400 [facility] Comment on above: Order Comment: Speci men Type: BLOOD SPECIMENOrdering Facility: [facility] Address: [address] [place] [address] Performed By: #### 5 8410-2 ####[facility]ATORYCLIA [id number] [address] RBC (Bld) [#/Vol] 3.50 10*6/uL Low 4.20-6.00 [facility] Comment on above: Order Comment: Speci men Type: BLOOD SPECIMENOrdering Facility: [facility] Address: [address] [place] [address] Performed By: #### 5 8410-2 ####[facility]ATORYCLIA [id number] [address] WBC (Bld) [#/Vol] 13.09 10*3/uL High 3.70-11.00 [facility] Comment on above: Order Comment: Speci men Type: BLOOD SPECIMENOrdering Facility: [facility] Address: [address] [place] [address] Performed By: #### 5 8410-2 ####[facility]ATORYCLIA [id number] [address] OF [facility] XR CHEST 1V FRONTALon 2023 XR CHEST 1V FRONTAL Normal [facility] XR HIP 3V PELV+ AP/LAT RTon 12-19-2023 XR HIP 3V PELV+ AP/LAT RT Normal [facility] Basic metabolic 2000 panelon 12-18-2023 Anion gap [Moles/Vol] 13 mmol/L Normal 8-15 [facility] Comment on above: Order Comment: Speci men Type: BLOOD SPECIMENOrdering Facility: [facility] Address: [address] [place] [address] Performed By: #### 2 4321-2 ####[facility]ATORYCLIA [id number] [place] [address] [place] Calcium [Mass/Vol] 8.8 mg/dL Normal 8.5-10.2 [facility] Comment on above: Order Comment: Speci men Type: BLOOD SPECIMENOrdering Facility: [facility] Address: [address] [place] [address] Performed By: #### 2 4321-2 ####[facility]ATORYCLIA [id number] [place] [address] [place] Chloride [Moles/Vol] 95 mmol/L Low 98-107 [facility] Comment on above: Order Comment: Speci men Type: BLOOD SPECIMENOrdering Facility: [facility] Address: [address] [place] [address] Performed By: #### 2 4321-2 ####[facility]ATORYCLIA [id number] [address] [place] CO2 [Moles/Vol] 27 mmol/L Normal 22-30 [facility] Comment on above: Order Comment: Speci men Type: BLOOD SPECIMENOrdering Facility: [facility] Address: [address] [place] [address] Performed By: #### 2 4321-2 ####[facility]ATORYCLIA [id number] [place] [address] [place] Creatinine [Mass/Vol] 0.76 mg/dL Normal 0.73-1.22 [facility] Comment on above: Order Comment: Speci men Type: BLOOD SPECIMENOrdering Facility: [facility] Address: [address] [place] [address] Performed By: #### 2 4321-2 ####[facility]ATORYCLIA [id number] [address] [place] Creatinine and Glomerular filtration rate.predicted panel (S/P/Bld) 88 mL/min/1.73m??? Normal >=60 [facility] Comment on above: Order Comment: Leny patel Type: BLOOD SPECIMENOrdering Facility: [facility] Address: [address] [place] [address] Result Comment: Alexia mated Glomerular Filtration Rate (eGFR) is calculated using the 2020 CKD-EPI creatinine equation. This equation utilizes serum creatinine, sex, and age as parameters. The creatinine assay has traceable calibration to isotope dilution-mass spectrometry. Refer to KDIGO guidelines for clinical interpretation. In patients with unstable renal function, e.g. those with acute kidney injury, the eGFR may not accurately reflect actual GFR. Performed By: #### 2 4321-2 ####[facility]ATORYCLIA [id number] [place] [address] [place] Glucose [Mass/Vol] 97 mg/dL Normal 74-99 [facility] Comment on above: Order Comment: Leny patel Type: BLOOD SPECIMENOrdering Facility: [facility] Address: [address] [place] [address] Result Comment: The [place] [employer] (ADA) provides guidance for cutoff values for fasting glucose and random glucose. The ADA defines fasting as no caloric intake for at least 8 hours. Fasting plasma glucose results between 100 to 125 mg/dL indicate increased risk for diabetes (prediabetes).Fasting plasma glucose results greater than or equal to 126 mg/dL meet the criteria for diagnosis of diabetes. In the absence of unequivocal hyperglycemia, results should be confirmed by repeat testing. In a patient with classic symptoms of hyperglycemia or hyperglycemic crisis, random plasma glucose results greater than or equal to 200 mg/dL meet the criteria for diagnosis of diabetes.Reference: Standards of Medical Care in Diabetes 2016, [place] [employer]. Diabetes Care. 2016.39(Suppl 1). Performed By: #### 2 4321-2 ####[facility]ATORYCLIA [id number] [place] [address] [place] Potassium [Moles/Vol] 3.9 mmol/L Normal 3.7-5.1 [facility] Comment on above: Order Comment: Leny patel Type: BLOOD SPECIMENOrdering Facility: [facility] Address: [address] [place] [address] Performed By: #### 2 4321-2 ####[facility]ATORYCLIA [id number] [place] [id number] [place] [facility] Sodium [Moles/Vol] 135 mmol/L Low 136-144 [facility] Comment on above: Order Comment: Speci men Type: BLOOD SPECIMENOrdering Facility: [facility] Address: [address] [place] [address] Performed By: #### 2 4321-2 ####[facility]ATORYCLIA [id number] [address] STATES OF [facility] Urea nitrogen [Mass/Vol] 10 mg/dL Normal 9-24 [facility] Comment on above: Order Comment: Speci men Type: BLOOD SPECIMENOrdering Facility: [facility] Address: [address] [place] [address] Performed By: #### 2 4321-2 ####[facility]ATORYCLIA [id number] [address] CASE MANAGEMon 12-18-2023 CASE MANAGEM Normal [facility] CBC panel Auto (Bld)on 12-17 Erythrocyte distribution width (RBC) [Ratio] 14.4 % Normal 11.5-15.0 [facility] Comment on above: Order Comment: Speci men Type: BLOOD SPECIMENOrdering Facility: [facility] Address: [address] [place] [address] Performed By: #### 5 8410-2 ####[facility]ATORYCLIA [id number] [address] STATES OF [facility] Hematocrit (Bld) [Volume fraction] 33.8 % Low 39.0-51.0 [facility] Comment on above: Order Comment: Speci men Type: BLOOD SPECIMENOrdering Facility: [facility] Address: [address] [place] [address] Performed By: #### 5 8410-2 ####[facility]ATORYCLIA [id number] [address] STATES OF [facility] Hemoglobin (Bld) [Mass/Vol] 11.0 g/dL Low 13.0-17.0 [facility] Comment on above: Order Comment: Speci men Type: BLOOD SPECIMENOrdering Facility: [facility] Address: [address] [place] [address] Performed By: #### 5 8410-2 ####[facility]ATORYCLIA [id number] [address] STATES OF [facility] MCH (RBC) [Entitic mass] 31.2 pg Normal 26.0-34.0 [facility] Comment on above: Order Comment: Speci men Type: BLOOD SPECIMENOrdering Facility: [facility] Address: [address] [place] [address] Performed By: #### 5 8410-2 ####[facility]ATORYCLIA [id number] [address] MCHC (RBC) [Mass/Vol] 32.5 g/dL Normal 30.5-36.0 [facility] Comment on above: Order Comment: Speci men Type: BLOOD SPECIMENOrdering Facility: [facility] Address: [address] [place] [address] Performed By: #### 5 8410-2 ####[facility]ATORYCLIA [id number] [address] STATES [facility] MCV (RBC) [Entitic vol] 95.8 fL Normal 80.0-100.0 [facility] Comment on above: Order Comment: Speci men Type: BLOOD SPECIMENOrdering Facility: [facility] Address: [address] [place] [address] Performed By: #### 5 8410-2 ####[facility]ATORYCLIA [id number] [address] Nucleated RBC (Bld) [#/Vol] 10*3/uL Normal <0.01 [facility] Comment on above: Order Comment: Speci men Type: BLOOD SPECIMENOrdering Facility: [facility] Address: [address] [place] [address] Performed By: #### 5 8410-2 ####[facility]ATORYCLIA [id number] [address] [place] Platelet mean volume (Bld) [Entitic vol] 9.7 fL Normal 9.0-12.7 [facility] Comment on above: Order Comment: Speci men Type: BLOOD SPECIMENOrdering Facility: [facility] Address: [address] [place] [address] Performed By: #### 5 8410-2 ####[facility]ATORYCLIA [id number] [place] [address] [place] Platelets (Bld) [#/Vol] 236 10*3/uL Normal 150-400 [facility] Comment on above: Order Comment: Speci men Type: BLOOD SPECIMENOrdering Facility: [facility] Address: [address] [place] [address] Performed By: #### 5 8410-2 ####[facility]ATORYCLIA [id number] [place] [address] [place] RBC (Bld) [#/Vol] 3.53 10*6/uL Low 4.20-6.00 [facility] Comment on above: Order Comment: Speci men Type: BLOOD SPECIMENOrdering Facility: [facility] Address: [address] [place] [address] Performed By: #### 5 8410-2 ####[facility]ATORYCLIA [id number] [place] [address] [place] WBC (Bld) [#/Vol] 13.11 10*3/uL High 3.70-11.00 [facility] Comment on above: Order Comment: Speci men Type: BLOOD SPECIMENOrdering Facility: [facility] Address: [address] [place] [address] Performed By: #### 5 8410-2 ####[facility]ATORYCLIA [id number] [address] [place] CONSULT PROGon 12-18-2023 CONSULT PROG Normal [facility] CT ABD/PEL W IVCONon 024 CT ABD/PEL W IVCON Normal [facility] PT EDon 12-18-2023 PT ED Normal [facility] ALLIED HEALTHon 12-17-2023 ALLIED HEALTH Normal [facility] Basic metabolic 2000 panelon 12-17-2023 Anion gap [Moles/Vol] 10 mmol/L Normal 8-15 [facility] Comment on above: Order Comment: Speci men Type: BLOOD SPECIMENOrdering Facility: [facility] Address: [address] [place] [address] Performed By: #### 2 4321-2 ####[facility]ATORYCLIA [id number] [place] [address] [place] Calcium [Mass/Vol] 8.5 mg/dL Normal 8.5-10.2 [facility] Comment on above: Order Comment: Speci men Type: BLOOD SPECIMENOrdering Facility: [facility] Address: [address] [place] [address] Performed By: #### 2 4321-2 ####[facility]ATORYCLIA [id number] [place] [address] [place] Chloride [Moles/Vol] 101 mmol/L Normal 98-107 [facility] Comment on above: Order Comment: Speci men Type: BLOOD SPECIMENOrdering Facility: [facility] Address: [address] [place] [address] Performed By: #### 2 4321-2 ####[facility]ATORYCLIA [id number] [place] [address] [place] CO2 [Moles/Vol] 25 mmol/L Normal 22-30 [facility] Comment on above: Order Comment: Speci men Type: BLOOD SPECIMENOrdering Facility: [facility] Address: [address] [place] [address] Performed By: #### 2 4321-2 ####[facility]ATORYCLIA [id number] [place] [address] [place] Creatinine [Mass/Vol] 0.76 mg/dL Normal 0.73-1.22 [facility] Comment on above: Order Comment: Speci men Type: BLOOD SPECIMENOrdering Facility: [facility] Address: [address] [place] [address] Performed By: #### 2 4321-2 ####[facility] [id number] [address] [place] Creatinine and Glomerular filtration rate.predicted panel (S/P/Bld) 88 mL/min/1.73m??? Normal >=60 [facility] Comment on above: Order Comment: Leny men Type: BLOOD SPECIMENOrdering Facility: [facility] Address: [address] [place] [address] Result Comment: Alexia mated Glomerular Filtration Rate (eGFR) is calculated using the 2020 CKD-EPI creatinine equation. This equation utilizes serum creatinine, sex, and age as parameters. The creatinine assay has traceable calibration to isotope dilution-mass spectrometry. Refer to KDIGO guidelines for clinical interpretation. In patients with unstable renal function, e.g. those with acute kidney injury, the eGFR may not accurately reflect actual GFR. Performed By: #### 2 4321-2 ####[facility]ALTHIA [id number] [place] [address] [place] Glucose [Mass/Vol] 87 mg/dL Normal 74-99 [facility] Comment on above: Order Comment: Leny patel Type: BLOOD SPECIMENOrdering Facility: [facility] Address: [address] [place] [address] Result Comment: The [place] [employer] (ADA) provides guidance for cutoff values for fasting glucose and random glucose. The ADA defines fasting as no caloric intake for at least 8 hours. Fasting plasma glucose results between 100 to 125 mg/dL indicate increased risk for diabetes (prediabetes).Fasting plasma glucose results greater than or equal to 126 mg/dL meet the criteria for diagnosis of diabetes. In the absence of unequivocal hyperglycemia, results should be confirmed by repeat testing. In a patient with classic symptoms of hyperglycemia or hyperglycemic crisis, random plasma glucose results greater than or equal to 200 mg/dL meet the criteria for diagnosis of diabetes.Reference: Standards of Medical Care in Diabetes 2016, [place] [employer]. Diabetes Care. 2016.39(Suppl 1). Performed By: #### 2 4321-2 ####[facility]ATORYCLIA [id number] [place] [address] [place] Potassium [Moles/Vol] 3.9 mmol/L Normal 3.7-5.1 [facility] Comment on above: Order Comment: Speci men Type: BLOOD SPECIMENOrdering Facility: [facility] Address: [address] [place] [address] Performed By: #### 2 4321-2 ####[facility]ATORYCLIA [id number] [place] [address] [place] Sodium [Moles/Vol] 136 mmol/L Normal 136-144 [facility] Comment on above: Order Comment: Speci men Type: BLOOD SPECIMENOrdering Facility: [facility] Address: [address] [place] [address] Performed By: #### 2 4321-2 ####[facility]ATORYCLIA [id number] [place] [address] [place] Urea nitrogen [Mass/Vol] 10 mg/dL Normal 9-24 [facility] Comment on above: Order Comment: Speci men Type: BLOOD SPECIMENOrdering Facility: [facility] Address: [address] [place] [address] Performed By: #### 2 4321-2 ####[facility]ATORYCLIA [id number] [address] [place] CASE MANAGEMon 12-17-2023 CASE MANAGEM Normal [facility] CBC panel Auto (Bld)on 12-16 Erythrocyte distribution width (RBC) [Ratio] 14.7 % Normal 11.5-15.0 [facility] Comment on above: Order Comment: Speci men Type: BLOOD SPECIMENOrdering Facility: [facility] Address: [address] [place] [address] Performed By: #### 5 8410-2 ####[facility]ATORYCLIA [id number] [address] [place] Hematocrit (Bld) [Volume fraction] 34.2 % Low 39.0-51.0 [facility] Comment on above: Order Comment: Speci men Type: BLOOD SPECIMENOrdering Facility: [facility] Address: [address] [place] [address] Performed By: #### 5 8410-2 ####[facility]ATORYCLIA [id number] [address] Hemoglobin (Bld) [Mass/Vol] 10.9 g/dL Low 13.0-17.0 [facility] Comment on above: Order Comment: Speci men Type: BLOOD SPECIMENOrdering Facility: [facility] Address: [address] [place] [address] Performed By: #### 5 8410-2 ####[facility]ATORYCLIA [id number] [address] OF [facility] MCH (RBC) [Entitic mass] 31.2 pg Normal 26.0-34.0 [facility] Comment on above: Order Comment: Speci men Type: BLOOD SPECIMENOrdering Facility: [facility] Address: [address] [place] [address] Performed By: #### 5 8410-2 ####[facility]ATORYCLIA [id number] [address] MCHC (RBC) [Mass/Vol] 31.9 g/dL Normal 30.5-36.0 [facility] Comment on above: Order Comment: Speci men Type: BLOOD SPECIMENOrdering Facility: [facility] Address: [address] [place] [address] Performed By: #### 5 8410-2 ####[facility]ATORYCLIA [id number] [address] STATES [facility] MCV (RBC) [Entitic vol] 98.0 fL Normal 80.0-100.0 [facility] Comment on above: Order Comment: Speci men Type: BLOOD SPECIMENOrdering Facility: [facility] Address: [address] [place] [address] Performed By: #### 5 8410-2 ####[facility]ORATORYCLIA [id number] [place] [address] [place] Nucleated RBC (Bld) [#/Vol] 10*3/uL Normal <0.01 [facility] Comment on above: Order Comment: Speci men Type: BLOOD SPECIMENOrdering Facility: [facility] Address: [address] [place] [address] Performed By: #### 5 8410-2 ####[facility]ATORYCLIA [id number] [place] [address] [place] Platelet mean volume (Bld) [Entitic vol] 9.4 fL Normal 9.0-12.7 [facility] Comment on above: Order Comment: Speci men Type: BLOOD SPECIMENOrdering Facility: [facility] Address: [address] [place] [address] Performed By: #### 5 8410-2 ####[facility]ATORYCLIA [id number] [address] [place] Platelets (Bld) [#/Vol] 197 10*3/uL Normal 150-400 [facility] Comment on above: Order Comment: Speci men Type: BLOOD SPECIMENOrdering Facility: [facility] Address: [address] [place] [address] Performed By: #### 5 8410-2 ####[facility]ATORYCLIA [id number] [place] [address] [place] RBC (Bld) [#/Vol] 3.49 10*6/uL Low 4.20-6.00 [facility] Comment on above: Order Comment: Speci men Type: BLOOD SPECIMENOrdering Facility: [facility] Address: [address] [place] [address] Performed By: #### 5 8410-2 ####[facility]ATORYCLIA [id number] [address] [place] WBC (Bld) [#/Vol] 13.02 10*3/uL High 3.70-11.00 [facility] Comment on above: Order Comment: Speci men Type: BLOOD SPECIMENOrdering Facility: [facility] Address: [address] [place] [address] Performed By: #### 5 8410-2 ####[facility]ORATORYCLIA [id number] [address] [place] CONSULT PROGon 12-17-2023 CONSULT PROG Normal [facility] CT CHEST W IVCONon 4 CT CHEST W IVCON Normal [facility] THERAPY NTon 12-17-2023 THERAPY NT Normal [facility] THERAPY NT Normal [facility] Bacteria Bld Culton 12-16-19 24 Bacteria identified Cx Nom (Bld) CULTURE, BLOOD: No growth 5 days Normal [facility] Comment on above: Performed By: #### 6 00-7 ####[facility]ATORYCLIA [id number] [address] [place] CASE MANAGEMon 12-16-2023 CASE MANAGEM Normal [facility] CBC panel Auto (Bld)on 12-15 Erythrocyte distribution width (RBC) [Ratio] 14.6 % Normal 11.5-15.0 [facility] Comment on above: Order Comment: Speci men Type: BLOOD SPECIMENOrdering Facility: [facility] Address: [address] [place] [address] Performed By: #### 5 8410-2 ####[facility]ATORYCLIA [id number] [address] [place] Hematocrit (Bld) [Volume fraction] 33.8 % Low 39.0-51.0 [facility] Comment on above: Order Comment: Speci men Type: BLOOD SPECIMENOrdering Facility: [facility] Address: [address] [place] [address] Performed By: #### 5 8410-2 ####[facility]ATORYCLIA [id number] [place] [address] [place] Hemoglobin (Bld) [Mass/Vol] 10.7 g/dL Low 13.0-17.0 [facility] Comment on above: Order Comment: Speci men Type: BLOOD SPECIMENOrdering Facility: [facility] Address: [address] [place] [address] Performed By: #### 5 8410-2 ####[facility]ATORYCLIA [id number] [address] STATES [facility] MCH (RBC) [Entitic mass] 30.8 pg Normal 26.0-34.0 [facility] Comment on above: Order Comment: Speci men Type: BLOOD SPECIMENOrdering Facility: [facility] Address: [address] [place] [address] Performed By: #### 5 8410-2 ####[facility]ATORYCLIA [id number] [address] STATES OF [facility] MCHC (RBC) [Mass/Vol] 31.7 g/dL Normal 30.5-36.0 [facility] Comment on above: Order Comment: Speci men Type: BLOOD SPECIMENOrdering Facility: [facility] Address: [address] [place] [address] Performed By: #### 5 8410-2 ####[facility]ATORYCLIA [id number] [address] MCV (RBC) [Entitic vol] 97.4 fL Normal 80.0-100.0 [facility] Comment on above: Order Comment: Speci men Type: BLOOD SPECIMENOrdering Facility: [facility] Address: [address] [place] [address] Performed By: #### 5 8410-2 ####[facility]ORYCLIA [id number] [address] Nucleated RBC (Bld) [#/Vol] 10*3/uL Normal <0.01 [facility] Comment on above: Order Comment: Speci men Type: BLOOD SPECIMENOrdering Facility: [facility] Address: [address] [place] [address] Performed By: #### 5 8410-2 ####[facility]ATORYCLIA [id number] [address] [place] Platelet mean volume (Bld) [Entitic vol] 9.6 fL Normal 9.0-12.7 [facility] Comment on above: Order Comment: Speci men Type: BLOOD SPECIMENOrdering Facility: [facility] Address: [address] [place] [address] Performed By: #### 5 8410-2 ####[facility]ATORYCLIA [id number] [address] OF [facility] Platelets (Bld) [#/Vol] 198 10*3/uL Normal 150-400 [facility] Comment on above: Order Comment: Speci men Type: BLOOD SPECIMENOrdering Facility: [facility] Address: [address] [place] [address] Performed By: #### 5 8410-2 ####[facility]ATORYCLIA [id number] [place] [address] [place] RBC (Bld) [#/Vol] 3.47 10*6/uL Low 4.20-6.00 [facility] Comment on above: Order Comment: Speci men Type: BLOOD SPECIMENOrdering Facility: [facility] Address: [address] [place] [address] Performed By: #### 5 8410-2 ####[facility]ATORYCLIA [id number] [address] OF [facility] WBC (Bld) [#/Vol] 10.83 10*3/uL Normal 3.70-11.00 [facility] Comment on above: Order Comment: Speci men Type: BLOOD SPECIMENOrdering Facility: [facility] Address: [address] [place] [address] Performed By: #### 5 8410-2 ####[facility]ATORYCLIA [id number] [address] [place] CONSULT PROGon 12-16-2023 CONSULT PROG Normal [facility] Comprehensive metabolic 2000 panelon 12-16-2023 Albumin [Mass/Vol] 3.0 g/dL Low 3.9-4.9 [facility] Comment on above: Order Comment: Speci men Type: BLOOD SPECIMENOrdering Facility: [facility] Address: [address] [place] [address] Performed By: #### 2 4323-8 ####[facility]ATORYCLIA [id number] [place], [place] [id number] [address] [place] ALP [Catalytic activity/Vol] 96 U/L Normal 38-113 [facility] Comment on above: Order Comment: Speci men Type: BLOOD SPECIMENOrdering Facility: [facility] Address: [address] [place] [address] Performed By: #### 2 4323-8 ####[facility]ATORYCLIA [id number] [address] [place] ALT With P-5'-P [Catalytic activity/Vol] 23 U/L Normal 10-54 [facility] Comment on above: Order Comment: Speci men Type: BLOOD SPECIMENOrdering Facility: [facility] Address: [address] [place] [address] Performed By: #### 2 4323-8 ####[facility]ATORYCLIA [id number] [address] STATES OF [facility] Anion gap [Moles/Vol] 9 mmol/L Normal 8-15 [facility] Comment on above: Order Comment: Speci men Type: BLOOD SPECIMENOrdering Facility: [facility] Address: [address] [place] [address] Performed By: #### 2 4323-8 ####[facility]ATORYCLIA [id number] [address] STATES OF [facility] AST With P-5'-P [Catalytic activity/Vol] 14 U/L Normal 14-40 [facility] Comment on above: Order Comment: Speci men Type: BLOOD SPECIMENOrdering Facility: [facility] Address: [address] [place] [address] Performed By: #### 2 4323-8 ####[facility]ATORYCLIA [id number] [address] [place] Bilirubin [Mass/Vol] 0.7 mg/dL Normal 0.2-1.3 [facility] Comment on above: Order Comment: Speci men Type: BLOOD SPECIMENOrdering Facility: [facility] Address: [address] [place] [address] Performed By: #### 2 4323-8 ####[facility]ATORYCLIA [id number] [place] [address] [place] Calcium [Mass/Vol] 8.7 mg/dL Normal 8.5-10.2 [facility] Comment on above: Order Comment: Speci men Type: BLOOD SPECIMENOrdering Facility: [facility] Address: [address] [place] [address] Performed By: #### 2 4323-8 ####[facility]ATORYCLIA [id number] [place] [address] [place] Chloride [Moles/Vol] 101 mmol/L Normal 98-107 [facility] Comment on above: Order Comment: Speci men Type: BLOOD SPECIMENOrdering Facility: [facility] Address: [address] [place] [address] Performed By: #### 2 4323-8 ####[facility]ATORYCLIA [id number] [address] [place] CO2 [Moles/Vol] 26 mmol/L Normal 22-30 [facility] Comment on above: Order Comment: Speci men Type: BLOOD SPECIMENOrdering Facility: [facility] Address: [address] [place] [address] Performed By: #### 2 4323-8 ####[facility]ATORYCLIA [id number] [place] [address] [place] Creatinine [Mass/Vol] 0.83 mg/dL Normal 0.73-1.22 [facility] Comment on above: Order Comment: Speci men Type: BLOOD SPECIMENOrdering Facility: [facility] Address: [address] [place] [address] Performed By: #### 2 4323-8 ####[facility]ORATORYCLIA [id number] [address] [place] Creatinine and Glomerular filtration rate.predicted panel (S/P/Bld) 86 mL/min/1.73m??? Normal >=60 [facility] Comment on above: Order Comment: Leny patel Type: BLOOD SPECIMENOrdering Facility: [facility] Address: [address] [place] [address] Result Comment: Alexia mated Glomerular Filtration Rate (eGFR) is calculated using the 2020 CKD-EPI creatinine equation. This equation utilizes serum creatinine, sex, and age as parameters. The creatinine assay has traceable calibration to isotope dilution-mass spectrometry. Refer to KDIGO guidelines for clinical interpretation. In patients with unstable renal function, e.g. those with acute kidney injury, the eGFR may not accurately reflect actual GFR. Performed By: #### 2 4323-8 ####[facility]ATORYCLIA [id number] [place] [address] [place] Glucose [Mass/Vol] 110 mg/dL High 74-99 [facility] Comment on above: Order Comment: Leny patel Type: BLOOD SPECIMENOrdering Facility: [facility] Address: [address] [place] [address] Result Comment: The [place] [employer] (ADA) provides guidance for cutoff values for fasting glucose and random glucose. The ADA defines fasting as no caloric intake for at least 8 hours. Fasting plasma glucose results between 100 to 125 mg/dL indicate increased risk for diabetes (prediabetes).Fasting plasma glucose results greater than or equal to 126 mg/dL meet the criteria for diagnosis of diabetes. In the absence of unequivocal hyperglycemia, results should be confirmed by repeat testing. In a patient with classic symptoms of hyperglycemia or hyperglycemic crisis, random plasma glucose results greater than or equal to 200 mg/dL meet the criteria for diagnosis of diabetes.Reference: Standards of Medical Care in Diabetes 2016, [place] [employer]. Diabetes Care. 2016.39(Suppl 1). Performed By: #### 2 4323-8 ####[facility]ATORYCLIA [id number] [place] [address] [place] Potassium [Moles/Vol] 3.6 mmol/L Low 3.7-5.1 [facility] Comment on above: Order Comment: Leny patel Type: BLOOD SPECIMENOrdering Facility: [facility] Address: [address] [place] [address] Performed By: #### 2 4323-8 ####[facility]ORYCLIA [id number] [place] [address] [place] Protein [Mass/Vol] 5.7 g/dL Low 6.3-8.0 [facility] Comment on above: Order Comment: Speci men Type: BLOOD SPECIMENOrdering Facility: [facility] Address: [address] [place] [address] Performed By: #### 2 4323-8 ####[facility]ATORYCLIA [id number] [place] [address] [place] Sodium [Moles/Vol] 136 mmol/L Normal 136-144 [facility] Comment on above: Order Comment: Speci men Type: BLOOD SPECIMENOrdering Facility: [facility] Address: [address] [place] [address] Performed By: #### 2 4323-8 ####[facility]ATORYCLIA [id number] [address] [place] Urea nitrogen [Mass/Vol] 12 mg/dL Normal 9-24 [facility] Comment on above: Order Comment: Speci men Type: BLOOD SPECIMENOrdering Facility: [facility] Address: [address] [place] [address] Performed By: #### 2 4323-8 ####[facility]ATORYCLIA [id number] [address] [place] CASE MANAGEMon 12-15-2023 CASE MANAGEM Normal [facility] CBC panel Auto (Bld)on 12-14 Erythrocyte distribution width (RBC) [Ratio] 15.3 % High 11.5-15.0 [facility] Comment on above: Order Comment: Speci men Type: BLOOD SPECIMENOrdering Facility: [facility] Address: [address] [place] [address] Performed By: #### 5 8410-2 ####[facility]ATORYCLIA [id number] [address] [place] Hematocrit (Bld) [Volume fraction] 36.2 % Low 39.0-51.0 [facility] Comment on above: Order Comment: Speci men Type: BLOOD SPECIMENOrdering Facility: [facility] Address: [address] [place] [address] Performed By: #### 5 8410-2 ####[facility]ATORYCLIA [id number] [address] STATES OF [facility] Hemoglobin (Bld) [Mass/Vol] 11.2 g/dL Low 13.0-17.0 [facility] Comment on above: Order Comment: Speci men Type: BLOOD SPECIMENOrdering Facility: [facility] Address: [address] [place] [address] Performed By: #### 5 8410-2 ####[facility]ATORYCLIA [id number] [address] [place] MCH (RBC) [Entitic mass] 31.1 pg Normal 26.0-34.0 [facility] Comment on above: Order Comment: Speci men Type: BLOOD SPECIMENOrdering Facility: [facility] Address: [address] [place] [address] Performed By: #### 5 8410-2 ####[facility]ATORYCLIA [id number] [address] [place] MCHC (RBC) [Mass/Vol] 30.9 g/dL Normal 30.5-36.0 [facility] Comment on above: Order Comment: Speci men Type: BLOOD SPECIMENOrdering Facility: [facility] Address: [address] [place] [address] Performed By: #### 5 8410-2 ####[facility]ATORYCLIA [id number] [address] [place] MCV (RBC) [Entitic vol] 100.6 fL High 80.0-100.0 [facility] Comment on above: Order Comment: Speci men Type: BLOOD SPECIMENOrdering Facility: [facility] Address: [address] [place] [address] Performed By: #### 5 8410-2 ####[facility]ATORYCLIA [id number] [address] [place] Nucleated RBC (Bld) [#/Vol] 10*3/uL Normal <0.01 [facility] Comment on above: Order Comment: Speci men Type: BLOOD SPECIMENOrdering Facility: [facility] Address: [address] [place] [address] Performed By: #### 5 8410-2 ####[facility]ATORYCLIA [id number] [address] [place] Platelet mean volume (Bld) [Entitic vol] 9.7 fL Normal 9.0-12.7 [facility] Comment on above: Order Comment: Speci men Type: BLOOD SPECIMENOrdering Facility: [facility] Address: [address] [place] [address] Performed By: #### 5 8410-2 ####[facility]ATORYCLIA [id number] [address] [place] Platelets (Bld) [#/Vol] 197 10*3/uL Normal 150-400 [facility] Comment on above: Order Comment: Speci men Type: BLOOD SPECIMENOrdering Facility: [facility] Address: [address] [place] [address] Performed By: #### 5 8410-2 ####[facility]ATORYCLIA [id number] [address] [place] RBC (Bld) [#/Vol] 3.60 10*6/uL Low 4.20-6.00 [facility] Comment on above: Order Comment: Speci men Type: BLOOD SPECIMENOrdering Facility: [facility] Address: [address] [place] [address] Performed By: #### 5 8410-2 ####[facility]ORYCLIA [id number] [address] [place] WBC (Bld) [#/Vol] 13.84 10*3/uL High 3.70-11.00 [facility] Comment on above: Order Comment: Speci men Type: BLOOD SPECIMENOrdering Facility: [facility] Address: [address] [place] [address] Performed By: #### 5 8410-2 ####[facility]ATORYCLIA [id number] [address] CONSULT PROGon 12-15-2023 CONSULT PROG Normal [facility] Comprehensive metabolic 2000 panelon 12-15-2023 Albumin [Mass/Vol] 3.2 g/dL Low 3.9-4.9 [facility] Comment on above: Order Comment: Speci men Type: BLOOD SPECIMENOrdering Facility: [facility] Address: [address] [place] [address] Performed By: #### 2 4323-8 ####[facility]ORYCLIA [id number] [address] ALP [Catalytic activity/Vol] 91 U/L Normal 38-113 [facility] Comment on above: Order Comment: Speci men Type: BLOOD SPECIMENOrdering Facility: [facility] Address: [address] [place] [address] Performed By: #### 2 4323-8 ####[facility]ORYCLIA [id number] [address] ALT With P-5'-P [Catalytic activity/Vol] 34 U/L Normal 10-54 [facility] Comment on above: Order Comment: Speci men Type: BLOOD SPECIMENOrdering Facility: [facility] Address: [address] [place] [address] Performed By: #### 2 4323-8 ####[facility]ORYCLIA [id number] [address] Anion gap [Moles/Vol] 10 mmol/L Normal 8-15 [facility] Comment on above: Order Comment: Speci men Type: BLOOD SPECIMENOrdering Facility: [facility] Address: [address] [place] [address] Performed By: #### 2 4323-8 ####[facility]ORYCLIA [id number] [address] AST With P-5'-P [Catalytic activity/Vol] 18 U/L Normal 14-40 [facility] Comment on above: Order Comment: Speci men Type: BLOOD SPECIMENOrdering Facility: [facility] Address: [address] [place] [address] Performed By: #### 2 4323-8 ####[facility] LABORATORYCLIA [id number] [place] [address] [place] Bilirubin [Mass/Vol] 0.9 mg/dL Normal 0.2-1.3 [facility] Comment on above: Order Comment: Speci men Type: BLOOD SPECIMENOrdering Facility: [facility] [facility] Address: [address] [place] [address] Performed By: #### 2 4323-8 ####[facility]ATORYCLIA [id number] [place] [address] [place] Calcium [Mass/Vol] 8.6 mg/dL Normal 8.5-10.2 [facility] Comment on above: Order Comment: Speci men Type: BLOOD SPECIMENOrdering Facility: [facility] Address: [address] [place] [address] Performed By: #### 2 4323-8 ####[facility]ATORYCLIA [id number] [place] [address] [place] Chloride [Moles/Vol] 104 mmol/L Normal 98-107 [facility] Comment on above: Order Comment: Speci men Type: BLOOD SPECIMENOrdering Facility: [facility] Address: [address] [place] [address] Performed By: #### 2 4323-8 ####[facility]ORATORYCLIA [id number] [place] [address] [place] CO2 [Moles/Vol] 23 mmol/L Normal 22-30 [facility] Comment on above: Order Comment: Speci men Type: BLOOD SPECIMENOrdering Facility: [facility] Address: [address] [place] [address] Performed By: #### 2 4323-8 ####[facility]ORATORYCLIA [id number] [address] STATES OF [facility] Creatinine [Mass/Vol] 0.91 mg/dL Normal 0.73-1.22 [facility] Comment on above: Order Comment: Leny patel Type: BLOOD SPECIMENOrdering Facility: [facility] Address: [address] [place] [address] Performed By: #### 2 4323-8 ####[facility] [id number] [address] Creatinine and Glomerular filtration rate.predicted panel (S/P/Bld) 83 mL/min/1.73m??? Normal >=60 [facility] Comment on above: Order Comment: Leny patel Type: BLOOD SPECIMENOrdering Facility: [facility] Address: [address] [place] [address] Result Comment: Alexia mated Glomerular Filtration Rate (eGFR) is calculated using the 2020 CKD-EPI creatinine equation. This equation utilizes serum creatinine, sex, and age as parameters. The creatinine assay has traceable calibration to isotope dilution-mass spectrometry. Refer to KDIGO guidelines for clinical interpretation. In patients with unstable renal function, e.g. those with acute kidney injury, the eGFR may not accurately reflect actual GFR. Performed By: #### 2 4323-8 ####[facility]ALTHIA [id number] [address] STATES OF [facility] Glucose [Mass/Vol] 100 mg/dL High 74-99 [facility] Comment on above: Order Comment: Leny patel Type: BLOOD SPECIMENOrdering Facility: [facility] Address: [address] [place] [address] Result Comment: The [place] [employer] (ADA) provides guidance for cutoff values for fasting glucose and random glucose. The ADA defines fasting as no caloric intake for at least 8 hours. Fasting plasma glucose results between 100 to 125 mg/dL indicate increased risk for diabetes (prediabetes).Fasting plasma glucose results greater than or equal to 126 mg/dL meet the criteria for diagnosis of diabetes. In the absence of unequivocal hyperglycemia, results should be confirmed by repeat testing. In a patient with classic symptoms of hyperglycemia or hyperglycemic crisis, random plasma glucose results greater than or equal to 200 mg/dL meet the criteria for diagnosis of diabetes.Reference: Standards of Medical Care in Diabetes 2016, [place] [employer]. Diabetes Care. 2016.39(Suppl 1). Performed By: #### 2 4323-8 ####[facility]ATORYCLIA [id number] [address] [place] Potassium [Moles/Vol] 4.4 mmol/L Normal 3.7-5.1 [facility] Comment on above: Order Comment: Speci men Type: BLOOD SPECIMENOrdering Facility: [facility] Address: [address] [place] [address] Performed By: #### 2 4323-8 ####[facility] LABORATORYCLIA [id number] [address] STATES OF [facility] Protein [Mass/Vol] 5.9 g/dL Low 6.3-8.0 [facility] Comment on above: Order Comment: Speci men Type: BLOOD SPECIMENOrdering Facility: [facility] Address: [address] [place] [address] Performed By: #### 2 4323-8 ####[facility]ATORYCLIA [id number] [address] STATES [place] Sodium [Moles/Vol] 137 mmol/L Normal 136-144 [facility] Comment on above: Order Comment: Speci men Type: BLOOD SPECIMENOrdering Facility: [facility] Address: [address] [place] [address] Performed By: #### 2 4323-8 ####[facility]ATORYCLIA [id number] [place] [address] [place] Urea nitrogen [Mass/Vol] 21 mg/dL Normal 9-24 [facility] Comment on above: Order Comment: Speci men Type: BLOOD SPECIMENOrdering Facility: [facility] Address: [address] [place] [address] Performed By: #### 2 4323-8 ####[facility]ATORYCLIA [id number] [place] [id number] [place] THERAPY NTon 12-15-2023 THERAPY NT Normal [facility] THERAPY NT Normal [facility] BRIEF OP NOTon 12-14-2023 BRIEF OP NOT Normal [facility] Bacteria Fld Culton 12-14-19 24 Bacteria identified Cx Nom (Body fld) Abnormal [facility] Comment on above: Performed By: #### 6 11-4 ####[facility]ATORYCLIA [id number] [place] [address] [place] CASE MGT INIT ASSESon 2023 CASE MGT INIT ASSES Normal [facility] CBC panel Auto (Bld)on 12-13 Erythrocyte distribution width (RBC) [Ratio] 15.7 % High 11.5-15.0 [facility] Comment on above: Order Comment: Speci men Type: BLOOD SPECIMENOrdering Facility: [facility] Address: [address] [place] [address] Performed By: #### 5 8410-2 ####[facility]ATORYCLIA [id number] [address] [place] Hematocrit (Bld) [Volume fraction] 38.5 % Low 39.0-51.0 [facility] Comment on above: Order Comment: Speci men Type: BLOOD SPECIMENOrdering Facility: [facility] Address: [address] [place] [address] Performed By: #### 5 8410-2 ####[facility]ATORYCLIA [id number] [place] [address] [place] Hemoglobin (Bld) [Mass/Vol] 11.9 g/dL Low 13.0-17.0 [facility] Comment on above: Order Comment: Speci men Type: BLOOD SPECIMENOrdering Facility: [facility] Address: [address] [place] [address] Performed By: #### 5 8410-2 ####[facility]ATORYCLIA [id number] [place] [address] [place] MCH (RBC) [Entitic mass] 31.1 pg Normal 26.0-34.0 [facility] Comment on above: Order Comment: Speci men Type: BLOOD SPECIMENOrdering Facility: [facility] Address: [address] [place] [address] Performed By: #### 5 8410-2 ####[facility]ORATORYCLIA [id number] [address] MCHC (RBC) [Mass/Vol] 30.9 g/dL Normal 30.5-36.0 [facility] Comment on above: Order Comment: Speci men Type: BLOOD SPECIMENOrdering Facility: [facility] Address: [address] [place] [address] Performed By: #### 5 8410-2 ####[facility]ATORYCLIA [id number] [address] STATES OF [facility] MCV (RBC) [Entitic vol] 100.5 fL High 80.0-100.0 [facility] Comment on above: Order Comment: Speci men Type: BLOOD SPECIMENOrdering Facility: [facility] Address: [address] [place] [address] Performed By: #### 5 8410-2 ####[facility]ATORYCLIA [id number] [address] Nucleated RBC (Bld) [#/Vol] 10*3/uL Normal <0.01 [facility] Comment on above: Order Comment: Speci men Type: BLOOD SPECIMENOrdering Facility: [facility] Address: [address] [place] [address] Performed By: #### 5 8410-2 ####[facility]ATORYCLIA [id number] [address] Platelet mean volume (Bld) [Entitic vol] 9.8 fL Normal 9.0-12.7 [facility] Comment on above: Order Comment: Speci men Type: BLOOD SPECIMENOrdering Facility: [facility] Address: [address] [place] [address] Performed By: #### 5 8410-2 ####[facility]ORATORYCLIA [id number] [address] OF [place] Platelets (Bld) [#/Vol] 201 10*3/uL Normal 150-400 [facility] Comment on above: Order Comment: Speci men Type: BLOOD SPECIMENOrdering Facility: [facility] Address: [address] [place] [address] Performed By: #### 5 8410-2 ####[facility]ATORYCLIA [id number] [place] [address] [place] RBC (Bld) [#/Vol] 3.83 10*6/uL Low 4.20-6.00 [facility] Comment on above: Order Comment: Speci men Type: BLOOD SPECIMENOrdering Facility: [facility] Address: [address] [place] [address] Performed By: #### 5 8410-2 ####[facility]ORYCLIA [id number] [place] [address] [place] [facility] WBC (Bld) [#/Vol] 18.45 10*3/uL High 3.70-11.00 [facility] Comment on above: Order Comment: Speci men Type: BLOOD SPECIMENOrdering Facility: [facility] Address: [address] [place] [address] Performed By: #### 5 8410-2 ####[facility]ATORYCLIA [id number] [address] [place] CK SerPl-cCncon 12-14-2023 CK [Catalytic activity/Vol] 32 U/L Low 51-298 [facility] Comment on above: Order Comment: Speci men Type: BLOOD SPECIMENOrdering Facility: [facility] Address: [address] [place] [address] Performed By: #### 2 4323-8, 2777-1, 06070-5, 2157-6, 80272-4 ####[facility]ORYCLIA [id number] [address] [place] CONSULTon 12-14-2023 CONSULT Normal [facility] CONSULT PROGon 12-14-2023 CONSULT PROG Normal [facility] CONSULT PROG Normal [facility] Comprehensive metabolic 2000 panelon 12-14-2023 Albumin [Mass/Vol] 3.1 g/dL Low 3.9-4.9 [facility] Comment on above: Order Comment: Speci men Type: BLOOD SPECIMENOrdering Facility: [facility] Address: [address] [place] [address] Performed By: #### 2 4323-8, 2777-1, 85211-1, 2156-08, 77899-3 ####[facility]ATORYCLIA [id number] [place] [address] [place] ALP [Catalytic activity/Vol] 101 U/L Normal 38-113 [facility] Comment on above: Order Comment: Speci men Type: BLOOD SPECIMENOrdering Facility: [facility] Address: [address] [place] [address] Performed By: #### 2 4323-8, 2777-1, 34657-9, 2156-08, 91052-3 ####[facility]ATORYCLIA [id number] [place] [address] [place] ALT With P-5'-P [Catalytic activity/Vol] 50 U/L Normal 10-54 [facility] Comment on above: Order Comment: Speci men Type: BLOOD SPECIMENOrdering Facility: [facility] Address: [address] [place] [address] Performed By: #### 2 4323-8, 2777-1, 08843-5, 2156-08, 59576-9 ####[facility]ATORYCLIA [id number] [place] [address] [place] Anion gap [Moles/Vol] 7 mmol/L Low 8-15 [facility] Comment on above: Order Comment: Speci men Type: BLOOD SPECIMENOrdering Facility: [facility] Address: [address] [place] [address] Performed By: #### 2 4323-8, 2777-1, 72025-8, 2156-08, 99632-3 ####[facility]ATORYCLIA [id number] [place] [address] [place] AST With P-5'-P [Catalytic activity/Vol] 24 U/L Normal 14-40 [facility] Comment on above: Order Comment: Speci men Type: BLOOD SPECIMENOrdering Facility: [facility] Address: [address] [place] [address] Performed By: #### 2 4323-8, 2777-1, 86369-1, 2156-08, 35445-0 ####[facility]ORYCLIA [id number] [place] [address] [place] Bilirubin [Mass/Vol] 0.8 mg/dL Normal 0.2-1.3 [facility] Comment on above: Order Comment: Speci men Type: BLOOD SPECIMENOrdering Facility: [facility] Address: [address] [place] [address] Performed By: #### 2 4323-8, 2777-1, 70508-7, 2156-08, 16020-8 ####[facility]ORYCLIA [id number] [place] [address] [place] Calcium [Mass/Vol] 8.2 mg/dL Low 8.5-10.2 [facility] Comment on above: Order Comment: Speci men Type: BLOOD SPECIMENOrdering Facility: [facility] Address: [address] [place] [address] Performed By: #### 2 4323-8, 2777-1, 97951-4, 2156-08, 58283-2 ####[facility]ORYCLIA [id number] [place] [address] [place] Chloride [Moles/Vol] 103 mmol/L Normal 98-107 [facility] Comment on above: Order Comment: Speci men Type: BLOOD SPECIMENOrdering Facility: [facility] Address: [address] [place] [address] Performed By: #### 2 4323-8, 2777-1, 47079-2, 2156-08, 68224-9 ####[facility]ORYCLIA [id number] [place] [address] [place] CO2 [Moles/Vol] 25 mmol/L Normal 22-30 [facility] Comment on above: Order Comment: Speci men Type: BLOOD SPECIMENOrdering Facility: [facility] Address: [address] [place] [address] Performed By: #### 2 4323-8, 2777-1, 22743-1, 2156-6, 55079-0 ####[facility]ATORYCLIA [id number] [place] [id number] [place] Creatinine [Mass/Vol] 1.14 mg/dL Normal 0.73-1.22 [facility] Comment on above: Order Comment: Speci men Type: BLOOD SPECIMENOrdering Facility: [facility] Address: [address] [place] [address] Performed By: #### 2 4323-8, 2777-1, 23746-8, 2156-08, ####[facility] [id number] [address] STATES OF [facility] Creatinine and Glomerular filtration rate.predicted panel (S/P/Bld) 63 mL/min/1.73m??? Normal >=60 [facility] Comment on above: Order Comment: Speci amanda Type: BLOOD SPECIMENOrdering Facility: [facility] Address: [address] [place] [address] Result Comment: Alexia mated Glomerular Filtration Rate (eGFR) is calculated using the 2020 CKD-EPI creatinine equation. This equation utilizes serum creatinine, sex, and age as parameters. The creatinine assay has traceable calibration to isotope dilution-mass spectrometry. Refer to KDIGO guidelines for clinical interpretation. In patients with unstable renal function, e.g. those with acute kidney injury, the eGFR may not accurately reflect actual GFR. Performed By: #### 2 4323-8, 2777-1, 17011-6, 2156-6, 46609-2 ####[facility]ATORYCLIA [id number] [place] [address] [place] Glucose [Mass/Vol] 112 mg/dL High 74-99 [facility] Comment on above: Order Comment: Leny patel Type: BLOOD SPECIMENOrdering Facility: [facility] Address: [address] [place] [address] Result Comment: The [place] [employer] (ADA) provides guidance for cutoff values for fasting glucose and random glucose. The ADA defines fasting as no caloric intake for at least 8 hours. Fasting plasma glucose results between 100 to 125 mg/dL indicate increased risk for diabetes (prediabetes).Fasting plasma glucose results greater than or equal to 126 mg/dL meet the criteria for diagnosis of diabetes. In the absence of unequivocal hyperglycemia, results should be confirmed by repeat testing. In a patient with classic symptoms of hyperglycemia or hyperglycemic crisis, random plasma glucose results greater than or equal to 200 mg/dL meet the criteria for diagnosis of diabetes.Reference: Standards of Medical Care in Diabetes 2016, [place] [employer]. Diabetes Care. 2016.39(Suppl 1). Performed By: #### 2 4323-8, 2777-1, 72758-7, 2156-6, 64944-1 ####[facility]ORYCLIA [id number] [place] [address] [place] Potassium [Moles/Vol] 4.5 mmol/L Normal 3.7-5.1 [facility] Comment on above: Order Comment: Leny patel Type: BLOOD SPECIMENOrdering Facility: [facility] Address: [address] [place] [address] Performed By: #### 2 4323-8, 2777-1, 00391-3, 2156-08, 22587-6 ####[facility]ORYCLIA [id number] [place] [address] [place] Protein [Mass/Vol] 5.7 g/dL Low 6.3-8.0 [facility] Comment on above: Order Comment: Leny patel Type: BLOOD SPECIMENOrdering Facility: [facility] Address: [address] [place] [address] Performed By: #### 2 4323-8, 2777-1, 76605-0, 2156-6, 36453-6 ####[facility]ORYCLIA [id number] [address] Sodium [Moles/Vol] 135 mmol/L Low 136-144 [facility] Comment on above: Order Comment: Speci men Type: BLOOD SPECIMENOrdering Facility: [facility] Address: [address] [place] [address] Performed By: #### 2 4323-8, 2777-1, 49988-7, 2157-6, 48972-1 ####[facility]ORYCLIA [id number] [address] [place] Urea nitrogen [Mass/Vol] 25 mg/dL High 9-24 [facility] Comment on above: Order Comment: Speci men Type: BLOOD SPECIMENOrdering Facility: [facility] Address: [address] [place] [address] Performed By: #### 2 4323-8, 2777-1, 18042-0, 2156-6, 00724-6 ####[facility]ORYCLIA [id number] [address] [place] HISTORY PHYSICALon HISTORY PHYSICAL Normal [facility] IR CHOLECYSTOSTOMY PERCon IR CHOLECYSTOSTOMY PERC Normal [facility] Magnesium SerPl-mCncon 12-13 Magnesium [Mass/Vol] 2.5 mg/dL High 1.7-2.3 [facility] Comment on above: Order Comment: Speci men Type: BLOOD SPECIMENOrdering Facility: [facility] Address: [address] [place] [address] Performed By: #### 2 4323-8, 2777-1, 71083-4, 2156-6, 49534-7 ####[facility]ORYCLIA [id number] [address] NT-proBNP SerPl-mCncon 12-13 Natriuretic peptide.B prohormone N-Terminal [Mass/Vol] 479 pg/mL High <450 [facility] Comment on above: Order Comment: Speci men Type: BLOOD SPECIMENOrdering Facility: [facility] Address: [address] [place] [address] Performed By: #### 2 4323-8, 2777-1, 24707-0, 2157-6, 15183-6 ####[facility]ATORYCLIA [id number] [place] [phone] [facility] NURSING PROGon 12-14-2023 NURSING PROG Normal [facility] NURSING PROG Normal [facility] PT panel Coag (PPP)on 2023 INR Coag (PPP) [Relative time] 1.3 {INR} Normal 0.9-1.3 [facility] Comment on above: Order Comment: Speci men Type: BLOOD SPECIMENOrdering Facility: [facility] Address: [address] [place] [address] Result Comment: Kayla min K Antagonist (VKA) Therapeutic Range: INR 2 to 3 (Target INR of 2.5)Note: For patients treated with VKA drugs, such as warfarin, the [place] [employer] 2012 Guideline recommends a therapeutic INR range of 2 to 3 (target INR of 2.5). This recommendation includes high-risk patients with antiphospholipid syndrome with previous arterial or venous thromboembolism, current-generation mechanical or bioprosthetic aortic heart valve replacement.Note: Patients with mechanical aortic valve replacement and additional risk factors for thromboembolic events (atrial fibrillation, previous thromboembolism, LV dysfunction, hypercoagulable conditions) or an older generation mechanical AVR (i.e., ball in-Cage) or any mechanical MVR should have a INR therapeutic range of 2.5 to 3.5 (target INR of 3).Delores GH, et al. Chest 2012, 141:7S-47SNishimura RA, et al. [facility] 2017, 70: 252-289 Performed By: #### 3 4528-0 ####[facility]ATORYCLIA [id number] [place] [id number] [place] PT Coag (PPP) [Time] 13.4 s High 9.7-13.0 [facility] Comment on above: Order Comment: Speci men Type: BLOOD SPECIMENOrdering Facility: [facility] Address: [address] [place] [id number] Performed By: #### 3 4528-0 ####[facility]ATORYCLIA [id number] [address] Phosphate SerPl-mCncon 12-13 Phosphate [Mass/Vol] 2.3 mg/dL Low 2.7-4.8 [facility] Comment on above: Order Comment: Speci men Type: BLOOD SPECIMENOrdering Facility: [facility] Address: [address] [place] [address] Performed By: #### 2 4323-8, 2777-1, 26748-9, 2157-6, 44601-7 ####[facility]ATORYCLIA [id number] [address] Bacteria Bld Culton 12-13-19 24 Bacteria identified Cx Nom (Bld) Abnormal [facility] Comment on above: Performed By: #### 6 00-7 ####[facility]ORYCLIA [id number] [address] CBC panel Auto (Bld)on 12-12 Erythrocyte distribution width (RBC) [Ratio] 15.5 % High 11.5-15.0 [facility] Comment on above: Order Comment: Speci men Type: BLOOD SPECIMENOrdering Facility: [facility] Address: [address] [place] [address] Performed By: #### 5 8410-2 ####[facility]ORYCLIA [id number] [address] Hematocrit (Bld) [Volume fraction] 45.4 % Normal 39.0-51.0 [facility] Comment on above: Order Comment: Speci men Type: BLOOD SPECIMENOrdering Facility: [facility] Address: [address] [place] [address] Performed By: #### 5 8410-2 ####[facility]ORYCLIA [id number] [address] Hemoglobin (Bld) [Mass/Vol] 14.7 g/dL Normal 13.0-17.0 [facility] Comment on above: Order Comment: Speci men Type: BLOOD SPECIMENOrdering Facility: [facility] Address: [address] [place] [address] Performed By: #### 5 8410-2 ####[facility]ORYCLIA [id number] [address] MCH (RBC) [Entitic mass] 31.5 pg Normal 26.0-34.0 [facility] Comment on above: Order Comment: Speci men Type: BLOOD SPECIMENOrdering Facility: [facility] Address: [address] [place] [address] Performed By: #### 5 8410-2 ####[facility]ORYCLIA [id number] [address] MCHC (RBC) [Mass/Vol] 32.4 g/dL Normal 30.5-36.0 [facility] Comment on above: Order Comment: Speci men Type: BLOOD SPECIMENOrdering Facility: [facility] Address: [address] [place] [address] Performed By: #### 5 8410-2 ####[facility]ORATORYCLIA [id number] [address] MCV (RBC) [Entitic vol] 97.4 fL Normal 80.0-100.0 [facility] Comment on above: Order Comment: Speci men Type: BLOOD SPECIMENOrdering Facility: [facility] Address: [address] [place] [address] Performed By: #### 5 8410-2 ####[facility] LABORATORYCLIA [id number] [address] Nucleated RBC (Bld) [#/Vol] 10*3/uL Normal <0.01 [facility] Comment on above: Order Comment: Speci men Type: BLOOD SPECIMENOrdering Facility: [facility] Address: [address] [place] [address] Performed By: #### 5 8410-2 ####[facility] LABORATORYCLIA [id number] [address] [place] Platelet mean volume (Bld) [Entitic vol] 9.5 fL Normal 9.0-12.7 [facility] Comment on above: Order Comment: Speci men Type: BLOOD SPECIMENOrdering Facility: [facility] Address: [address] [place] [address] Performed By: #### 5 8410-2 ####[facility]ORATORYCLIA [id number] [place] [address] [place] Platelets (Bld) [#/Vol] 276 10*3/uL Normal 150-400 [facility] Comment on above: Order Comment: Speci men Type: BLOOD SPECIMENOrdering Facility: [facility] Address: [address] [place] [address] Performed By: #### 5 8410-2 ####[facility] LABORATORYCLIA [id number] [place] [address] [place] RBC (Bld) [#/Vol] 4.66 10*6/uL Normal 4.20-6.00 [facility] Comment on above: Order Comment: Speci men Type: BLOOD SPECIMENOrdering Facility: [facility] Address: [address] [place] [address] Performed By: #### 5 8410-2 ####[facility]ORATORYCLIA [id number] [place] [address] [place] WBC (Bld) [#/Vol] 24.24 10*3/uL High 3.70-11.00 [facility] Comment on above: Order Comment: Speci men Type: BLOOD SPECIMENOrdering Facility: [facility] Address: [address] [place] [address] Performed By: #### 5 8410-2 ####[facility] LABORATORYCLIA [id number] [address] [place] CONSULTon 12-13-2023 CONSULT Normal [facility] CONSULT Normal [facility] CONSULT PROGon 12-13-2023 CONSULT PROG Normal [facility] CONSULT PROG Normal [facility] Comprehensive metabolic 2000 panelon 12-13-2023 Albumin [Mass/Vol] 3.6 g/dL Low 3.9-4.9 [facility] Comment on above: Order Comment: Speci men Type: BLOOD SPECIMENOrdering Facility: [facility] Address: [address] [place] [address] Performed By: #### 2 4323-8 ####[facility]ORYCLIA [id number] [address] [place] ALP [Catalytic activity/Vol] 130 U/L High 38-113 [facility] Comment on above: Order Comment: Speci men Type: BLOOD SPECIMENOrdering Facility: [facility] Address: [address] [place] [address] Performed By: #### 2 4323-8 ####[facility]ATORYCLIA [id number] [address] [place] ALT With P-5'-P [Catalytic activity/Vol] 86 U/L High 10-54 [facility] Comment on above: Order Comment: Speci men Type: BLOOD SPECIMENOrdering Facility: [facility] Address: [address] [place] [address] Performed By: #### 2 4323-8 ####[facility]ATORYCLIA [id number] [address] [place] Anion gap [Moles/Vol] 11 mmol/L Normal 8-15 [facility] Comment on above: Order Comment: Speci men Type: BLOOD SPECIMENOrdering Facility: [facility] Address: [address] [place] [address] Performed By: #### 2 4323-8 ####[facility]ATORYCLIA [id number] [place] [address] [place] AST With P-5'-P [Catalytic activity/Vol] 52 U/L High 14-40 [facility] Comment on above: Order Comment: Speci men Type: BLOOD SPECIMENOrdering Facility: [facility] Address: [address] [place] [address] Performed By: #### 2 4323-8 ####[facility]ATORYCLIA [id number] [place] [address] [place] Bilirubin [Mass/Vol] 1.0 mg/dL Normal 0.2-1.3 [facility] Comment on above: Order Comment: Speci men Type: BLOOD SPECIMENOrdering Facility: [facility] Address: [address] [place] [address] Performed By: #### 2 4323-8 ####[facility]ATORYCLIA [id number] [place] [address] [place] Calcium [Mass/Vol] 8.9 mg/dL Normal 8.5-10.2 [facility] Comment on above: Order Comment: Speci men Type: BLOOD SPECIMENOrdering Facility: [facility] Address: [address] [place] [address] Performed By: #### 2 4323-8 ####[facility]ATORYCLIA [id number] [place] [address] [place] Chloride [Moles/Vol] 104 mmol/L Normal 98-107 [facility] Comment on above: Order Comment: Speci men Type: BLOOD SPECIMENOrdering Facility: [facility] Address: [address] [place] [address] Performed By: #### 2 4323-8 ####[facility]ATORYCLIA [id number] [place] [address] [place] CO2 [Moles/Vol] 25 mmol/L Normal 22-30 [facility] Comment on above: Order Comment: Speci men Type: BLOOD SPECIMENOrdering Facility: [facility] Address: [address] [place] [address] Performed By: #### 2 4323-8 ####[facility]ATORYCLIA [id number] [place] [address] [place] Creatinine [Mass/Vol] 1.38 mg/dL High 0.73-1.22 [facility] Comment on above: Order Comment: Speci men Type: BLOOD SPECIMENOrdering Facility: [facility] Address: [address] [place] [address] Performed By: #### 2 4323-8 ####[facility]ATORYCLIA [id number] [address] STATES [facility] Creatinine and Glomerular filtration rate.predicted panel (S/P/Bld) 50 mL/min/1.73m??? Low >=60 [facility] Comment on above: Order Comment: Leny patel Type: BLOOD SPECIMENOrdering Facility: [facility] Address: [address] [place] [address] Result Comment: Alexia mated Glomerular Filtration Rate (eGFR) is calculated using the 2020 CKD-EPI creatinine equation. This equation utilizes serum creatinine, sex, and age as parameters. The creatinine assay has traceable calibration to isotope dilution-mass spectrometry. Refer to KDIGO guidelines for clinical interpretation. In patients with unstable renal function, e.g. those with acute kidney injury, the eGFR may not accurately reflect actual GFR. Performed By: #### 2 4323-8 ####[facility]ITALCLIA [id number] [place] [address] [place] Glucose [Mass/Vol] 139 mg/dL High 74-99 [facility] Comment on above: Order Comment: Leny patel Type: BLOOD SPECIMENOrdering Facility: [facility] Address: [address] [place] [address] Result Comment: The [place] [employer] (ADA) provides guidance for cutoff values for fasting glucose and random glucose. The ADA defines fasting as no caloric intake for at least 8 hours. Fasting plasma glucose results between 100 to 125 mg/dL indicate increased risk for diabetes (prediabetes).Fasting plasma glucose results greater than or equal to 126 mg/dL meet the criteria for diagnosis of diabetes. In the absence of unequivocal hyperglycemia, results should be confirmed by repeat testing. In a patient with classic symptoms of hyperglycemia or hyperglycemic crisis, random plasma glucose results greater than or equal to 200 mg/dL meet the criteria for diagnosis of diabetes.Reference: Standards of Medical Care in Diabetes 2016, [place] [employer]. Diabetes Care. 2016.39(Suppl 1). Performed By: #### 2 4323-8 ####[facility]ORATORYCLIA [id number] [place] [id number] [place] Potassium [Moles/Vol] 4.0 mmol/L Normal 3.7-5.1 [facility] Comment on above: Order Comment: Speci men Type: BLOOD SPECIMENOrdering Facility: [facility] Address: [address] [place] [address] Performed By: #### 2 4323-8 ####[facility]ATORYCLIA [id number] [address] [place] Protein [Mass/Vol] 6.3 g/dL Normal 6.3-8.0 [facility] Comment on above: Order Comment: Speci men Type: BLOOD SPECIMENOrdering Facility: [facility] Address: [address] [place] [address] Performed By: #### 2 4323-8 ####[facility]ATORYCLIA [id number] [address] [place] Sodium [Moles/Vol] 140 mmol/L Normal 136-144 [facility] Comment on above: Order Comment: Speci men Type: BLOOD SPECIMENOrdering Facility: [facility] Address: [address] [place] [address] Performed By: #### 2 4323-8 ####[facility]ATORYCLIA [id number] [address] STATES [facility] Urea nitrogen [Mass/Vol] 15 mg/dL Normal 9-24 [facility] Comment on above: Order Comment: Speci men Type: BLOOD SPECIMENOrdering Facility: [facility] Address: [address] [place] [address] Performed By: #### 2 4323-8 ####[facility]ATORYCLIA [id number] [place] [address] [place] HISTORY PHYSICALon HISTORY PHYSICAL Normal [facility] Lactate (Bld) [Moles/Vol]on 12-13-2023 Lactate [Moles/Vol] 1.4 mmol/L Normal 0.5-2.2 [facility] Comment on above: Order Comment: Speci men Type: BLOOD SPECIMENOrdering Facility: [facility] Address: [address] [place] [address] Performed By: #### 3 2693-4 ####[facility]ORATORYCLIA [id number] [place] [address] [place] XR CHEST 1V FRONTALon 2023 XR CHEST 1V FRONTAL Normal [facility] CASE MANAGEMon 10-30-2023 CASE MANAGEM Normal [facility] CASE MANAGEM Normal [facility] CBC panel Auto (Bld)on 10-29 Erythrocyte distribution width (RBC) [Ratio] 13.4 % Normal 11.5-15.0 [facility] Comment on above: Order Comment: Speci men Type: BLOOD SPECIMENOrdering Facility: [facility] Address: [address] [place] [address] Performed By: #### 5 8410-2 ####[facility]ATORYCLIA [id number] [address] [place] Hematocrit (Bld) [Volume fraction] 38.4 % Low 39.0-51.0 [facility] Comment on above: Order Comment: Speci men Type: BLOOD SPECIMENOrdering Facility: [facility] Address: [address] [place] [address] Performed By: #### 5 8410-2 ####[facility]ATORYCLIA [id number] [address] [place] Hemoglobin (Bld) [Mass/Vol] 12.7 g/dL Low 13.0-17.0 [facility] Comment on above: Order Comment: Speci men Type: BLOOD SPECIMENOrdering Facility: [facility] Address: [address] [place] [address] Performed By: #### 5 8410-2 ####[facility]ATORYCLIA [id number] [place] [address] [place] MCH (RBC) [Entitic mass] 31.6 pg Normal 26.0-34.0 [facility] Comment on above: Order Comment: Speci men Type: BLOOD SPECIMENOrdering Facility: [facility] Address: [address] [place] [address] Performed By: #### 5 8410-2 ####[facility]ORYCLIA [id number] [address] STATES [facility] MCHC (RBC) [Mass/Vol] 33.1 g/dL Normal 30.5-36.0 [facility] Comment on above: Order Comment: Speci men Type: BLOOD SPECIMENOrdering Facility: [facility] Address: [address] [place] [address] Performed By: #### 5 8410-2 ####[facility]ATORYCLIA [id number] [address] [place] MCV (RBC) [Entitic vol] 95.5 fL Normal 80.0-100.0 [facility] Comment on above: Order Comment: Speci men Type: BLOOD SPECIMENOrdering Facility: [facility] Address: [address] [place] [address] Performed By: #### 5 8410-2 ####[facility]ATORYCLIA [id number] [address] [place] Nucleated RBC (Bld) [#/Vol] 10*3/uL Normal <0.01 [facility] Comment on above: Order Comment: Speci men Type: BLOOD SPECIMENOrdering Facility: [facility] Address: [address] [place] [address] Performed By: #### 5 8410-2 ####[facility]ORYCLIA [id number] [address] [place] Platelet mean volume (Bld) [Entitic vol] 9.1 fL Normal 9.0-12.7 [facility] Comment on above: Order Comment: Speci men Type: BLOOD SPECIMENOrdering Facility: [facility] Address: [address] [place] [address] Performed By: #### 5 8410-2 ####[facility]ORYCLIA [id number] [address] [place] Platelets (Bld) [#/Vol] 163 10*3/uL Normal 150-400 [facility] Comment on above: Order Comment: Speci men Type: BLOOD SPECIMENOrdering Facility: [facility] Address: [address] [place] [address] Performed By: #### 5 8410-2 ####[facility]ATORYCLIA [id number] [address] [place] RBC (Bld) [#/Vol] 4.02 10*6/uL Low 4.20-6.00 [facility] Comment on above: Order Comment: Speci men Type: BLOOD SPECIMENOrdering Facility: [facility] Address: [address] [place] [address] Performed By: #### 5 8410-2 ####[facility]ATORYCLIA [id number] [address] STATES OF [facility] WBC (Bld) [#/Vol] 5.59 10*3/uL Normal 3.70-11.00 [facility] Comment on above: Order Comment: Speci men Type: BLOOD SPECIMENOrdering Facility: [facility] Address: [address] [place] [address] Performed By: #### 5 8410-2 ####[facility]ATORYCLIA [id number] [address] [place] CNDSon 10-30-2023 CNDS Normal [facility] CONSULT PROGon 10-30-2023 CONSULT PROG Normal [facility] Comprehensive metabolic 2000 panelon 10-30-2023 Albumin [Mass/Vol] 3.0 g/dL Low 3.9-4.9 [facility] Comment on above: Order Comment: Speci men Type: BLOOD SPECIMENOrdering Facility: [facility] Address: [address] [place] [address] Performed By: #### 2 4323-8 ####[facility]ORYCLIA [id number] [address] [place] ALP [Catalytic activity/Vol] 61 U/L Normal 38-113 [facility] Comment on above: Order Comment: Speci men Type: BLOOD SPECIMENOrdering Facility: [facility] Address: [address] [place] [address] Performed By: #### 2 4323-8 ####[facility]ORYCLIA [id number] [place] [address] [place] ALT With P-5'-P [Catalytic activity/Vol] 28 U/L Normal 10-54 [facility] Comment on above: Order Comment: Speci men Type: BLOOD SPECIMENOrdering Facility: [facility] Address: [address] [place] [address] Performed By: #### 2 4323-8 ####[facility] LABORATORYCLIA [id number] [place] [address] [place] Anion gap [Moles/Vol] 11 mmol/L Normal 8-15 [facility] Comment on above: Order Comment: Speci men Type: BLOOD SPECIMENOrdering Facility: [facility] Address: [address] [place] [address] Performed By: #### 2 4323-8 ####[facility] LABORATORYCLIA [id number] [place] [address] [place] AST With P-5'-P [Catalytic activity/Vol] 22 U/L Normal 14-40 [facility] Comment on above: Order Comment: Speci men Type: BLOOD SPECIMENOrdering Facility: [facility] Address: [address] [place] [address] Performed By: #### 2 4323-8 ####[facility]ORYCLIA [id number] [place] [address] [place] Bilirubin [Mass/Vol] 0.5 mg/dL Normal 0.2-1.3 [facility] Comment on above: Order Comment: Speci men Type: BLOOD SPECIMENOrdering Facility: [facility] Address: [address] [place] [address] Performed By: #### 2 4323-8 ####[facility] LABORATORYCLIA [id number] [place] [address] [place] Calcium [Mass/Vol] 8.0 mg/dL Low 8.5-10.2 [facility] Comment on above: Order Comment: Speci men Type: BLOOD SPECIMENOrdering Facility: [facility] Address: [address] [place] [address] Performed By: #### 2 4323-8 ####[facility]ORYCLIA [id number] [address] [place] Chloride [Moles/Vol] 104 mmol/L Normal 98-107 [facility] Comment on above: Order Comment: Speci men Type: BLOOD SPECIMENOrdering Facility: [facility] Address: [address] [place] [address] Performed By: #### 2 4323-8 ####[facility]ORYCLIA [id number] [place] [address] [place] CO2 [Moles/Vol] 20 mmol/L Low 22-30 [facility] Comment on above: Order Comment: Speci men Type: BLOOD SPECIMENOrdering Facility: [facility] Address: [address] [place] [address] Performed By: #### 2 4323-8 ####[facility]ORYCLIA [id number] [address] [place] Creatinine [Mass/Vol] 0.80 mg/dL Normal 0.73-1.22 [facility] Comment on above: Order Comment: Speci men Type: BLOOD SPECIMENOrdering Facility: [facility] Address: [address] [place] [address] Performed By: #### 2 4323-8 ####[facility]ORYCLIA [id number] [address] Creatinine and Glomerular filtration rate.predicted panel (S/P/Bld) 87 mL/min/1.73m??? Normal >=60 [facility] Comment on above: Order Comment: Speci men Type: BLOOD SPECIMENOrdering Facility: [facility] Address: [address] [place] [address] Result Comment: Alexia mated Glomerular Filtration Rate (eGFR) is calculated using the 2020 CKD-EPI creatinine equation. This equation utilizes serum creatinine, sex, and age as parameters. The creatinine assay has traceable calibration to isotope dilution-mass spectrometry. Refer to KDIGO guidelines for clinical interpretation. In patients with unstable renal function, e.g. those with acute kidney injury, the eGFR may not accurately reflect actual GFR. Performed By: #### 2 4323-8 ####[facility]ORYCLIA [id number] [place] [address] [place] Glucose [Mass/Vol] 160 mg/dL High 74-99 [facility] Comment on above: Order Comment: Leny patel Type: BLOOD SPECIMENOrdering Facility: [facility] Address: [address] [place] [address] Result Comment: The [place] [employer] (ADA) provides guidance for cutoff values for fasting glucose and random glucose. The ADA defines fasting as no caloric intake for at least 8 hours. Fasting plasma glucose results between 100 to 125 mg/dL indicate increased risk for diabetes (prediabetes).Fasting plasma glucose results greater than or equal to 126 mg/dL meet the criteria for diagnosis of diabetes. In the absence of unequivocal hyperglycemia, results should be confirmed by repeat testing. In a patient with classic symptoms of hyperglycemia or hyperglycemic crisis, random plasma glucose results greater than or equal to 200 mg/dL meet the criteria for diagnosis of diabetes.Reference: Standards of Medical Care in Diabetes 2016, [place] [employer]. Diabetes Care. 2016.39(Suppl 1). Performed By: #### 2 4323-8 ####[facility]ORYCLIA [id number] [place] [address] [place] Potassium [Moles/Vol] 4.1 mmol/L Normal 3.7-5.1 [facility] Comment on above: Order Comment: Leny patel Type: BLOOD SPECIMENOrdering Facility: [facility] Address: [address] [place] [id number] Performed By: #### 2 4323-8 ####[facility]ORYCLIA [id number] [place] [address] [place] Protein [Mass/Vol] 5.9 g/dL Low 6.3-8.0 [facility] Comment on above: Order Comment: Leny patel Type: BLOOD SPECIMENOrdering Facility: [facility] Address: [address] [place] [address] Performed By: #### 2 4323-8 ####[facility]ATORYCLIA [id number] [place] [id number] [place] [facility] Sodium [Moles/Vol] 135 mmol/L Low 136-144 [facility] Comment on above: Order Comment: Speci men Type: BLOOD SPECIMENOrdering Facility: [facility] Address: [address] [place] [address] Performed By: #### 2 4323-8 ####[facility]ORYCLIA [id number] [address] [place] Urea nitrogen [Mass/Vol] 16 mg/dL Normal 9-24 [facility] Comment on above: Order Comment: Speci men Type: BLOOD SPECIMENOrdering Facility: [facility] Address: [address] [place] [address] Performed By: #### 2 4323-8 ####[facility]ORYCLIA [id number] [place] [address] [place] THERAPY NTon 10-30-2023 THERAPY NT Normal [facility] (1,3)-V-M-[id number] 4 (1,3) B-D GLUCAN <31 Normal <60 [facility] Comment on above: Order Comment: Speci men Type: BLOOD SPECIMENOrdering Facility: [facility] Address: [address] [place] [address] Performed By: #### B DGLUC ####[facility] LABCLIA [id number] [place] [address] [place] (1,3) B-D GLUCAN QUAL Negative Normal Negative [facility] Comment on above: Order Comment: Speci men Type: BLOOD SPECIMENOrdering Facility: [facility] Address: [address] [place] [address] Performed By: #### B DGLUC ####[facility] LABCLIA [id number] [place] [address] [place] ASPERGILLUS GALACTOMANNAN SE RUMon 10-29-2023 ASPERGILLUS GALACTOMANNAN 0.12 Index Value Normal <=0.49 [facility] Comment on above: Order Comment: Leny patel Type: BLOOD SPECIMENOrdering Facility: [facility] Address: [address] [place] [address] Performed By: #### A SGALS ####[facility] LABCLIA [id number] [place] [address] [place] Galactomannan Ag IA Ql Negative Normal Negative [facility] Comment on above: Order Comment: Speci men Type: BLOOD SPECIMENOrdering Facility: [facility] Address: [address] [place] [address] Result Comment: Aspe rgillus Galactomannan antigen assay is used as an aid in diagnosis of invasive aspergillosis in immunocompromised individuals especially in post-stem cell transplant, hematological malignancies on chemotherapy, and HIV-positive patients with very low CD4 T-cell counts. The test may also be used in disease prognostication and for monitoring response to anti-fungal therapy. False positive and false negative results are not uncommon. Clinical and radiological correlation is required. Performed By: #### A SGALS ####[facility] LABCLIA [id number] [place] [address] [place] BLASTOMYCES ANTIGENon 2023 INTERPRETATION Negative Normal [facility] Comment on above: Order Comment: Leny patel Type: BLOOD SPECIMENOrdering Facility: [facility] Address: [address] [place] [address] Result Comment: Test Parameters:Reference Interval: None DetectedReportable Range: 0.31 ng/mL - 20.00 ng/mLResults above 20.00 ng/mL are reported as'Positive, Above the Limit of Quantification'This test was developed and its performancecharacteristics determined by [facility]. Ithas not been cleared or approved by the FDA; however,FDA clearance or approval is not currently required forclinical use. The results are not intended to be usedas the sole means for clinical diagnosis or patientmanagement decisions.Test performed by [facility] [address] [place] [address], [place] [address] Phone: Gareth Jain MD, Manager Sql Performed By: #### B LAS ####[facility] LABCLIA [id number] [place], [place] RESULT: SEE BELOW Normal [facility] Comment on above: Order Comment: Speci men Type: BLOOD SPECIMENOrdering Facility: [facility] Address: [address] [place] [address] Result Comment: None Detected ng/mL Performed By: #### B LAS ####[facility] LABCLIA [id number] [place], [place] SPECIMEN TYPE: Serum Normal [facility] Comment on above: Order Comment: Speci men Type: BLOOD SPECIMENOrdering Facility: [facility] Address: [address] [place] [address] Performed By: #### B LAS ####[facility] LABCLIA [id number] [place], [place] BLASTOMYCES ANTIGEN, URINEon 10-29-2023 BLASTOMYCES ANTIGEN, URINE Not detected Normal [facility] Comment on above: Order Comment: Speci men Type: URINE SPECIMENOrdering Facility: [facility] Address: [address] [place] [address] Performed By: #### U BLSAG ####[facility] [id number] [place] [address] BLASTOMYCES DERMATITIDIS EIA, INTERP Not detected Normal Not Detected [facility] Comment on above: Order Comment: Speci men Type: URINE SPECIMENOrdering Facility: [facility] Address: [address] [place] [address] Result Comment: INTE RPRETIVE INFORMATION:Blastomyces Ag Quant by NACHO, UrineThe quantitative range of this assay is 1.25-200 U/mL. Antigenconcentrations less than 1.25 U/mL or greater than 200 U/mL falloutside the linear range of the assay and cannot be accuratelyquantified.This EIA test should be used in conjunction with other diagnosticprocedures, including microbiological culture, histologicalexamination of biopsy samples, serology and/or radiographicevidence, to aid in the diagnosis of blastomycosis.Cross-reactivity with other endemic mycoses (Histoplasma andCoccidioides) may occur. Positive test results should becorrelated with other clinical findings and relevant exposurehistory.This test was developed and its performance characteristicsdetermined by [facility]. It has not been cleared orapproved by the [place] Food and Drug Administration. This test wasperformed in a CLIA certified laboratory and is intended forclinical purposes.Performed By: [facility] [place], [place] [id number] Director: Adela Garay MD, PhDCLIA Number: [id number] Performed By: #### U BLSAG ####[facility] [id number] [place] [address] Basic metabolic 2000 panelon 10-29-2023 Anion gap [Moles/Vol] 11 mmol/L Normal 8-15 [facility] Comment on above: Order Comment: Speci men Type: BLOOD SPECIMENOrdering Facility: [facility] Address: [address] [place] [address] Performed By: #### 2 4321-2 ####[facility]IA [id number] [place] [address] [place] [facility] Calcium [Mass/Vol] 7.7 mg/dL Low 8.5-10.2 [facility] Comment on above: Order Comment: Speci men Type: BLOOD SPECIMENOrdering Facility: [facility] Address: [address] [place] [address] Performed By: #### 2 4321-2 ####[facility] [id number] [place] [address] [place] Chloride [Moles/Vol] 98 mmol/L Normal 98-107 [facility] Comment on above: Order Comment: Speci men Type: BLOOD SPECIMENOrdering Facility: [facility] Address: [address] [place] [address] Performed By: #### 2 4321-2 ####[facility] LABORATORYCLIA [id number] [address] [facility] CO2 [Moles/Vol] 19 mmol/L Low 22-30 [facility] Comment on above: Order Comment: Speci men Type: BLOOD SPECIMENOrdering Facility: [facility] Address: [address] [place] [address] Performed By: #### 2 4321-2 ####[facility] LABORATORYCLIA [id number] [address] [place] Creatinine [Mass/Vol] 0.92 mg/dL Normal 0.73-1.22 [facility] Comment on above: Order Comment: Speci men Type: BLOOD SPECIMENOrdering Facility: [facility] Address: [address] [place] [address] Performed By: #### 2 4321-2 ####[facility] LABORATORYCLIA [id number] [address] Creatinine and Glomerular filtration rate.predicted panel (S/P/Bld) 82 mL/min/1.73m??? Normal >=60 [facility] Comment on above: Order Comment: Speci men Type: BLOOD SPECIMENOrdering Facility: [facility] Address: [address] [place] [address] Result Comment: Alexia mated Glomerular Filtration Rate (eGFR) is calculated using the 2020 CKD-EPI creatinine equation. This equation utilizes serum creatinine, sex, and age as parameters. The creatinine assay has traceable calibration to isotope dilution-mass spectrometry. Refer to KDIGO guidelines for clinical interpretation. In patients with unstable renal function, e.g. those with acute kidney injury, the eGFR may not accurately reflect actual GFR. Performed By: #### 2 4321-2 ####[facility] LABORATORYCLIA [id number] [address] STATES OF [facility] Glucose [Mass/Vol] 135 mg/dL High 74-99 [facility] Comment on above: Order Comment: Shyanni amanda Type: BLOOD SPECIMENOrdering Facility: [facility] Address: [address] [place] [address] Result Comment: The [place] [employer] (ADA) provides guidance for cutoff values for fasting glucose and random glucose. The ADA defines fasting as no caloric intake for at least 8 hours. Fasting plasma glucose results between 100 to 125 mg/dL indicate increased risk for diabetes (prediabetes).Fasting plasma glucose results greater than or equal to 126 mg/dL meet the criteria for diagnosis of diabetes. In the absence of unequivocal hyperglycemia, results should be confirmed by repeat testing. In a patient with classic symptoms of hyperglycemia or hyperglycemic crisis, random plasma glucose results greater than or equal to 200 mg/dL meet the criteria for diagnosis of diabetes.Reference: Standards of Medical Care in Diabetes 2016, [place] [employer] Association. Diabetes Care. 2016.39(Suppl 1). Performed By: #### 2 4321-2 ####[facility] LABORATORYCLIA [id number] [address] [place] Potassium [Moles/Vol] 4.1 mmol/L Normal 3.7-5.1 [facility] Comment on above: Order Comment: Speci men Type: BLOOD SPECIMENOrdering Facility: [facility] Address: [address] [place] [address] Performed By: #### 2 1-2 ####[facility] LABORATORYCLIA [id number] [address] [place] Sodium [Moles/Vol] 128 mmol/L Low 136-144 [facility] Comment on above: Order Comment: Shyanni men Type: BLOOD SPECIMENOrdering Facility: [facility] Address: [address] [place] [address] Performed By: #### 2 4321-2 ####[facility] LABORATORYCLIA [id number] [address] [place] Urea nitrogen [Mass/Vol] 12 mg/dL Normal 9-24 [facility] Comment on above: Order Comment: Speci men Type: BLOOD SPECIMENOrdering Facility: [facility] Address: [address] [place] [address] Performed By: #### 2 1-2 ####[facility] LABORATORYCLIA [id number] [address] [place] CASE MGT INIT ASSESon 2023 CASE MGT INIT ASSES Normal [facility] CBC panel Auto (Bld)on 10-28 Erythrocyte distribution width (RBC) [Ratio] 13.5 % Normal 11.5-15.0 [facility] Comment on above: Order Comment: Speci men Type: BLOOD SPECIMENOrdering Facility: [facility] Address: [address] [place] [address] Performed By: #### 5 8410-2 ####[facility] LABORATORYCLIA [id number] [address] STATES OF [facility] Hematocrit (Bld) [Volume fraction] 40.3 % Normal 39.0-51.0 [facility] Comment on above: Order Comment: Speci men Type: BLOOD SPECIMENOrdering Facility: [facility] Address: [address] [place] [address] Performed By: #### 5 8410-2 ####[facility] LABORATORYCLIA [id number] [address] OF [facility] Hemoglobin (Bld) [Mass/Vol] 13.8 g/dL Normal 13.0-17.0 [facility] Comment on above: Order Comment: Speci men Type: BLOOD SPECIMENOrdering Facility: [facility] Address: [address] [place] [address] Performed By: #### 5 8410-2 ####[facility] LABORATORYCLIA [id number] [address] [place] MCH (RBC) [Entitic mass] 33.2 pg Normal 26.0-34.0 [facility] Comment on above: Order Comment: Speci men Type: BLOOD SPECIMENOrdering Facility: [facility] Address: [address] [place] [address] Performed By: #### 5 8410-2 ####[facility] LABORATORYCLIA [id number] [address] [place] MCHC (RBC) [Mass/Vol] 34.2 g/dL Normal 30.5-36.0 [facility] Comment on above: Order Comment: Speci men Type: BLOOD SPECIMENOrdering Facility: [facility] Address: [address] [place] [address] Performed By: #### 5 8410-2 ####[facility] LABORATORYCLIA [id number] [address] MCV (RBC) [Entitic vol] 96.9 fL Normal 80.0-100.0 [facility] Comment on above: Order Comment: Speci men Type: BLOOD SPECIMENOrdering Facility: [facility] Address: [facility] [place] [address] Performed By: #### 5 8410-2 ####[facility]ORATORYCLIA [id number] [address] [place] Nucleated RBC (Bld) [#/Vol] 10*3/uL Normal <0.01 [facility] Comment on above: Order Comment: Speci men Type: BLOOD SPECIMENOrdering Facility: [facility] Address: [address] [place] [address] Performed By: #### 5 8410-2 ####[facility]ORATORYCLIA [id number] [address] Platelet mean volume (Bld) [Entitic vol] 9.5 fL Normal 9.0-12.7 [facility] Comment on above: Order Comment: Speci men Type: BLOOD SPECIMENOrdering Facility: [facility] Address: [address] [place] [address] Performed By: #### 5 8410-2 ####[facility] LABORATORYCLIA [id number] [address] [place] Platelets (Bld) [#/Vol] 148 10*3/uL Low 150-400 [facility] Comment on above: Order Comment: Speci men Type: BLOOD SPECIMENOrdering Facility: [facility] Address: [address] [place] [address] Result Comment: No c lot detected. Performed By: #### 5 8410-2 ####[facility] LABORATORYCLIA [id number] [address] [place] RBC (Bld) [#/Vol] 4.16 10*6/uL Low 4.20-6.00 [facility] Comment on above: Order Comment: Speci men Type: BLOOD SPECIMENOrdering Facility: [facility] Address: [address] [place] [address] Performed By: #### 5 8410-2 ####[facility] LABORATORYCLIA [id number] [place] [address] [place] WBC (Bld) [#/Vol] 6.87 10*3/uL Normal 3.70-11.00 [facility] Comment on above: Order Comment: Speci men Type: BLOOD SPECIMENOrdering Facility: [facility] Address: [address] [place] [address] Performed By: #### 5 8410-2 ####[facility] LABORATORYCLIA [id number] [address] [place] CONSULTon 10-29-2023 CONSULT Normal [facility] CRP SerPl-mCncon 10-29-2023 CRP [Mass/Vol] 5.1 mg/dL High <0.9 [facility] Comment on above: Order Comment: Leny [facility] Type: BLOOD SPECIMENOrdering Facility: [facility] Address: [address] [place] [address] Performed By: #### 2 951-2, 1987-, 2691-04 ####[facility] LABORATORYCLIA [id number] [place] [address] [place] FUNGAL BATTERY IDon 10-29-19 24 Aspergillus sp Ab Immune diff Ql (S) Negative Normal Negative [facility] Comment on above: Order Comment: Speci amanda Type: BLOOD SPECIMENOrdering Facility: [facility] Address: [address] [place] [address] Result Comment: Aspe rgillus antibody test by immunodiffusion may be used as an aid in diagnosis of chronic pulmonary aspergillosis including chronic cavitary pulmonary aspergillosis and chronic fibrosing pulmonary aspergillosis. Immunodiffusion test is more specific but less sensitive than complement fixation test. Clinical correlation is required. Performed By: #### F UNID ####[facility] LABCLIA [id number] [address] [place] B. dermatitidis Ab Immune diff Ql (S) Negative Normal Negative [facility] Comment on above: Order Comment: Leny patel Type: BLOOD SPECIMENOrdering Facility: [facility] Address: [address] [place] [address] Result Comment: Yaron tomyces antibody test by Immunodiffusion may be used as an aid in diagnosis of infection with the dimorphic fungus Blastomyces dermatitidis. Blastomyces serology has low overall diagnostic sensitivity especially with localized disease. Immunodiffusion test is more specific but less sensitive than complement fixation test. Clinical and epidemiological correlation is required. Performed By: #### F UNID ####[facility] [id number] [address] [place] Coccidioides sp Ab Immune diff Ql (S) Negative Normal Negative [facility] Comment on above: Order Comment: Leny patel Type: BLOOD SPECIMENOrdering Facility: [facility] Address: [address] [place] [address] Result Comment: Cocc idioides antibody test by Immunodiffusion may be used as an aid in diagnosis of infection with the dimorphic fungus Coccidioides spp. Cannot exclude acute infection if the specimen collected 4-6 weeks after onset of signs and symptoms. Immunodiffusion test is more specific but less sensitive than EIA test. Clinical and epidemiological correlation is required. Performed By: #### F UNID ####[facility] [id number] [address] [place] H. capsulatum Ab Immune diff Ql (S) Negative Normal Negative [facility] Comment on above: Order Comment: Speci amanda Type: BLOOD SPECIMENOrdering Facility: [facility] Address: [address] [place] [address] Result Comment: Hist oplasma antibody test by Immunodiffusion may be used as an aid in diagnosis of infection with the dimorphic fungus Histoplasma capsulatum. Histoplasma antibody test has low overall diagnostic sensitivity especially with localized disease. Immunodiffusion test is more specific but less sensitive than complement fixation test. Clinical and epidemiological correlation is required. Performed By: #### F UNID ####[facility] LABCLIA [id number] [facility] [id number] [address] [place] HISTO CAPSULATUM AGon 2023 HISTOPLASMA ANTIGEN, SERUM Not detected Normal Not Detected [facility] Comment on above: Order Comment: Speci men Type: BLOOD SPECIMENOrdering Facility: [facility] Address: [address] [place] [address] Result Comment: Perf ormed By: [facility] [place] [id number] Director: Adela Garay MD, PhDCLIA Number: [id number] Performed By: #### S HISTO ####[facility] [id number] [place] [address] HISTOPLASMA ANTIGEN, SERUM INTERP Not detected Normal Not Detected [facility] Comment on above: Order Comment: Speci men Type: BLOOD SPECIMENOrdering Facility: [facility] Address: [address] [place] [address] Result Comment: INTE RPRETIVE INFORMATION: Histoplasma Antigen Quantitative by EIA,SerumLess than 0.19 ng/mL = Not Detected0.19-60.0 ng/mL = DetectedGreater than 60.0 ng/mL = Detected (above the limit ofquantification).The quantitative range of this assay is 0.19-60.0 ng/mL. Antigenconcentrations greater than 60.0 ng/mL fall outside the linearrange of the assay and cannot be accurately quantified.This EIA test should be used in conjunction with other diagnosticprocedures, including microbiological culture, histologicalexamination of biopsy samples, and/or radiographic evidence, toaid in the diagnosis of histoplasmosis.Crossreactivity with Blastomyces dermatiditis, Coccidioidesimmitis and possibly Talaromyces marneffei have been observed withthis EIA. Other clinically and geographically relevant endemicmycoses should be considered in the case of a positive test result.This test was developed and its performance characteristicsdetermined by [facility]. It has not been cleared orapproved by the [place] Food and Drug Administration. This test wasperformed in a CLIA certified laboratory and is intended forclinical purposes. Performed By: #### S HISTO ####[facility] [id number] [place] [address] HISTOPLASMA AG URINEon 10-28 H. capsulatum Ag (U) [Mass/Vol] <0.2 Normal <0.2 [facility] Comment on above: Order Comment: Speci men Type: URINE SPECIMENOrdering Facility: [facility] Address: [address] [place] [address] Performed By: #### U HISTO ####[facility] LABCLIA [id number] [place] [address] [place] H. capsulatum Ag IA Ql (U) Negative Normal Negative [facility] Comment on above: Order Comment: Speci men Type: URINE SPECIMENOrdering Facility: [facility] Address: [address] [place] [address] Result Comment: Hist oplasma galactomannan antigen, urine test is used as an aid in diagnosing histoplasmosis. A negative result cannot rule out infection. Low positive results may at times be due to cross-reactivity with Blastomyces, Talaromyces marneffei, Paracoccidioides, and some Catrina species. Clinical radiological, and epidemiological correlation is required. Performed By: #### U HISTO ####[facility] LABCLIA [id number] [place] [address] [place] Osmolality SerPlon Osmolality [Osmolality] 279 mosm/kg Normal 275-300 [facility] Comment on above: Order Comment: Speci men Type: BLOOD SPECIMENOrdering Facility: [facility] Address: [address] [place] [address] Performed By: #### 2 95-2, 1987-, 2691-04 ####[facility]ORYCLIA [id number] [place] [address] [place] Osmolality Uron 10-29-2023 Osmolality (U) [Osmolality] 698 mosm/kg Normal 50-1200 [facility] Comment on above: Order Comment: Speci men Type: URINE SPECIMENOrdering Facility: [facility] Address: [address] [place] [address] Performed By: #### 2 695-5, 35281-7 ####[facility]ORYCLIA [id number] [place] [address] [place] Sodium ?Tm Ur-sCncon 024 Sodium Unsp time (U) [Moles/Vol] 93 mmol/L Normal 14-216 [facility] Comment on above: Order Comment: Speci men Type: URINE SPECIMENOrdering Facility: [facility] Address: [address] [place] [address] Performed By: #### 2 695-5, 16601-7 ####[facility]ORYCLIA [id number] [place] [address] [place] Sodium SerPl-sCncon 10-29-19 24 Sodium [Moles/Vol] 134 mmol/L Low 136-144 [facility] Comment on above: Order Comment: Speci men Type: BLOOD SPECIMENOrdering Facility: [facility] Address: [address] [place] [address] Performed By: #### 2 951-2 ####[facility]ORYCLIA [id number] [place] [address] [place] Sodium [Moles/Vol] 134 mmol/L Low 136-144 [facility] Comment on above: Order Comment: Speci men Type: BLOOD SPECIMENOrdering Facility: [facility] Address: [address] [place] [address] Performed By: #### 2 951-2, 1987-07, 2691-04 ####[facility]ORYCLIA [id number] [place] [address] [place] ALLIED HEALTHon 10-28-2023 ALLIED HEALTH Normal [facility] Bacteria Spec Resp Culton Bacteria identified Respiratory culture Nom (Unsp spec) CULTURE, RESPIRATORY: Many Normal respiratory lyudmila present GRAM STAIN: Moderate Mixed oral lyudmila No Polymorphonuclear Leukocytes Moderate Epithelial cells Abnormal [facility] Comment on above: Performed By: #### 3 2355-0 ####[facility]ORYCLIA [id number] [address] STATES [facility] CBC panel Auto (Bld)on 10-27 Erythrocyte distribution width (RBC) [Ratio] 13.6 % Normal 11.5-15.0 [facility] Comment on above: Order Comment: Speci men Type: BLOOD SPECIMENOrdering Facility: [facility] Address: [address] [place] [address] Performed By: #### 5 8410-2 ####[facility]ORYCLIA [id number] [address] Hematocrit (Bld) [Volume fraction] 39.4 % Normal 39.0-51.0 [facility] Comment on above: Order Comment: Speci men Type: BLOOD SPECIMENOrdering Facility: [facility] Address: [address] [place] [address] Performed By: #### 5 8410-2 ####[facility]ORYCLIA [id number] [address] Hemoglobin (Bld) [Mass/Vol] 13.3 g/dL Normal 13.0-17.0 [facility] Comment on above: Order Comment: Speci men Type: BLOOD SPECIMENOrdering Facility: [facility] Address: [address] [place] [address] Performed By: #### 5 8410-2 ####[facility] [facility]ORY[facility]IA [id number] [address] MCH (RBC) [Entitic mass] 32.4 pg Normal 26.0-34.0 [facility] Comment on above: Order Comment: Speci men Type: BLOOD SPECIMENOrdering Facility: [facility] Address: [address] [place] [address] Performed By: #### 5 8410-2 ####[facility]ATORYCLIA [id number] [address] [place] MCHC (RBC) [Mass/Vol] 33.8 g/dL Normal 30.5-36.0 [facility] Comment on above: Order Comment: Speci men Type: BLOOD SPECIMENOrdering Facility: [facility] Address: [address] [place] [address] Performed By: #### 5 8410-2 ####[facility]ATORYCLIA [id number] [address] [place] MCV (RBC) [Entitic vol] 95.9 fL Normal 80.0-100.0 [facility] Comment on above: Order Comment: Speci men Type: BLOOD SPECIMENOrdering Facility: [facility] Address: [address] [place] [address] Performed By: #### 5 8410-2 ####[facility]ATORYCLIA [id number] [address] [place] Nucleated RBC (Bld) [#/Vol] 0.02 10*3/uL High <0.01 [facility] Comment on above: Order Comment: Speci men Type: BLOOD SPECIMENOrdering Facility: [facility] Address: [address] [place] [address] Performed By: #### 5 8410-2 ####[facility]ATORYCLIA [id number] [address] [place] Platelet mean volume (Bld) [Entitic vol] 9.6 fL Normal 9.0-12.7 [facility] Comment on above: Order Comment: Speci men Type: BLOOD SPECIMENOrdering Facility: [facility] Address: [address] [place] [address] Performed By: #### 5 8410-2 ####[facility]ATORYCLIA [id number] [address] [place] Platelets (Bld) [#/Vol] 141 10*3/uL Low 150-400 [facility] Comment on above: Order Comment: Speci men Type: BLOOD SPECIMENOrdering Facility: [facility] Address: [address] [place] [address] Performed By: #### 5 8410-2 ####[facility]ATORYCLIA [id number] [address] [place] RBC (Bld) [#/Vol] 4.11 10*6/uL Low 4.20-6.00 [facility] Comment on above: Order Comment: Speci men Type: BLOOD SPECIMENOrdering Facility: [facility] Address: [address] [place] [address] Performed By: #### 5 8410-2 ####[facility]ATORYCLIA [id number] [place] [address] [place] WBC (Bld) [#/Vol] 6.86 10*3/uL Normal 3.70-11.00 [facility] Comment on above: Order Comment: Speci men Type: BLOOD SPECIMENOrdering Facility: [facility] Address: [address] [place] [address] Performed By: #### 5 8410-2 ####[facility]ORYCLIA [id number] [address] [place] CONSULTon 10-28-2023 CONSULT Normal [facility] CONSULT PROGon 10-28-2023 CONSULT PROG Normal [facility] CONSULT PROG Normal [facility] Comprehensive metabolic 2000 panelon 10-28-2023 Albumin [Mass/Vol] 3.2 g/dL Low 3.9-4.9 [facility] Comment on above: Order Comment: Speci men Type: BLOOD SPECIMENOrdering Facility: [facility] Address: [address] [place] [address] Performed By: #### 3 3959-8, 80035-5, ####[facility]ATORYCLIA [id number] [address] [place] ALP [Catalytic activity/Vol] 62 U/L Normal 38-113 [facility] Comment on above: Order Comment: Speci men Type: BLOOD SPECIMENOrdering Facility: [facility] Address: [address] [place] [address] Performed By: #### 3 3959-8, 62030-0, ####[facility]ATORYCLIA [id number] [place] [address] [place] [facility] ALT With P-5'-P [Catalytic activity/Vol] 15 U/L Normal 10-54 [facility] Comment on above: Order Comment: Speci men Type: BLOOD SPECIMENOrdering Facility: [facility] Address: [address] [place] [address] Performed By: #### 3 3959-8, 54742-1, ####[facility]ORYCLIA [id number] [address] STATES OF [facility] Anion gap [Moles/Vol] 9 mmol/L Normal 8-15 [facility] Comment on above: Order Comment: Speci men Type: BLOOD SPECIMENOrdering Facility: [facility] Address: [address] [place] [address] Performed By: #### 3 3959-8, 40749-0, ####[facility]ORYCLIA [id number] [address] STATES OF [facility] AST With P-5'-P [Catalytic activity/Vol] 15 U/L Normal 14-40 [facility] Comment on above: Order Comment: Speci men Type: BLOOD SPECIMENOrdering Facility: [facility] Address: [address] [place] [address] Performed By: #### 3 3959-8, 13104-7, ####[facility]ORYCLIA [id number] [address] [place] Bilirubin [Mass/Vol] 0.4 mg/dL Normal 0.2-1.3 [facility] Comment on above: Order Comment: Speci men Type: BLOOD SPECIMENOrdering Facility: [facility] Address: [address] [place] [address] Performed By: #### 3 3959-8, 28497-7, 87649-4 ####[facility]ATORYCLIA [id number] [place] [address] [place] Calcium [Mass/Vol] 8.2 mg/dL Low 8.5-10.2 [facility] Comment on above: Order Comment: Speci men Type: BLOOD SPECIMENOrdering Facility: [facility] Address: [address] [place] [address] Performed By: #### 3 3959-8, 59838-1, ####[facility]ORYCLIA [id number] [place] [address] [place] Chloride [Moles/Vol] 101 mmol/L Normal 98-107 [facility] Comment on above: Order Comment: Speci men Type: BLOOD SPECIMENOrdering Facility: [facility] Address: [address] [place] [address] Performed By: #### 3 3959-8, 33261-8, ####[facility]ORYCLIA [id number] [place] [address] [place] CO2 [Moles/Vol] 23 mmol/L Normal 22-30 [facility] Comment on above: Order Comment: Speci men Type: BLOOD SPECIMENOrdering Facility: [facility] Address: [address] [place] [address] Performed By: #### 3 3959-8, 33082-8, ####[facility]ATORYCLIA [id number] [place] [address] [place] Creatinine [Mass/Vol] 0.88 mg/dL Normal 0.73-1.22 [facility] Comment on above: Order Comment: Speci men Type: BLOOD SPECIMENOrdering Facility: [facility] Address: [address] [place] [address] Performed By: #### 3 3959-8, 16124-8, ####[facility]ATORYCLIA [id number] [address] [place] Creatinine and Glomerular filtration rate.predicted panel (S/P/Bld) 84 mL/min/1.73m??? Normal >=60 [facility] Comment on above: Order Comment: Speci men Type: BLOOD SPECIMENOrdering Facility: [facility] Address: [address] [place] [address] Result Comment: Alexia mated Glomerular Filtration Rate (eGFR) is calculated using the 2020 CKD-EPI creatinine equation. This equation utilizes serum creatinine, sex, and age as parameters. The creatinine assay has traceable calibration to isotope dilution-mass spectrometry. Refer to KDIGO guidelines for clinical interpretation. In patients with unstable renal function, e.g. those with acute kidney injury, the eGFR may not accurately reflect actual GFR. Performed By: #### 3 3959-8, 25593-9, ####[facility]PITALCLIA [id number] [place] [id number] [place] Glucose [Mass/Vol] 109 mg/dL High 74-99 [facility] Comment on above: Order Comment: Leny patel Type: BLOOD SPECIMENOrdering Facility: [facility] Address: [address] [place] [address] Result Comment: The [place] [employer] (ADA) provides guidance for cutoff values for fasting glucose and random glucose. The ADA defines fasting as no caloric intake for at least 8 hours. Fasting plasma glucose results between 100 to 125 mg/dL indicate increased risk for diabetes (prediabetes).Fasting plasma glucose results greater than or equal to 126 mg/dL meet the criteria for diagnosis of diabetes. In the absence of unequivocal hyperglycemia, results should be confirmed by repeat testing. In a patient with classic symptoms of hyperglycemia or hyperglycemic crisis, random plasma glucose results greater than or equal to 200 mg/dL meet the criteria for diagnosis of diabetes.Reference: Standards of Medical Care in Diabetes 2016, [place] [employer]. Diabetes Care. 2016.39(Suppl 1). Performed By: #### 3 3959-8, 45438-8, ####[facility]ATORYIA [id number] [place] [address] [place] Potassium [Moles/Vol] 4.1 mmol/L Normal 3.7-5.1 [facility] Comment on above: Order Comment: Leny patel Type: BLOOD SPECIMENOrdering Facility: [facility] Address: [address] [place] [address] Performed By: #### 3 3959-8, 18809-9, 73552-9 ####[facility]ATORYCLIA [id number] [place] [address] [place] Protein [Mass/Vol] 5.7 g/dL Low 6.3-8.0 [facility] Comment on above: Order Comment: Speci men Type: BLOOD SPECIMENOrdering Facility: [facility] Address: [address] [place] [address] Performed By: #### 3 3959-8, 07817-0, 25791-1 ####[facility]ATORYCLIA [id number] [place] [address] [place] Sodium [Moles/Vol] 133 mmol/L Low 136-144 [facility] Comment on above: Order Comment: Speci men Type: BLOOD SPECIMENOrdering Facility: [facility] Address: [address] [place] [address] Performed By: #### 3 3959-8, 76763-9, 53533-9 ####[facility]ATORYCLIA [id number] [address] [place] Urea nitrogen [Mass/Vol] 14 mg/dL Normal 9-24 [facility] Comment on above: Order Comment: Speci men Type: BLOOD SPECIMENOrdering Facility: [facility] Address: [address] [place] [address] Performed By: #### 3 3959-8, 22900-1, 41443-8 ####[facility]ATORYCLIA [id number] [place] [address] [place] ECG COMPLETEon 10-28-2023 ECG COMPLETE Normal [facility] Legionella Ag Ur Qlon 2023 Legionella sp Ag Ql (U) Negative Normal Negative [facility] Comment on above: Order Comment: Speci men Type: URINE SPECIMENOrdering Facility: [facility] Address: [address] [place] [address] Result Comment: Pres umptive negative for L. pneumophila serogroup 1 antigen in urine, suggesting no recent or current infection. Infection due to Legionella cannot be ruled out since other serogroups and species may cause disease, antigen may not be present in urine in early infection, and the level of antigen present in the urine may be below the detection limit of the test. Performed By: #### 3 2781-7 ####[facility]ATORYCLIA [id number] [address] STATES OF [facility] Magnesium SerPl-mCncon 10-27 Magnesium [Mass/Vol] 2.2 mg/dL Normal 1.7-2.3 [facility] Comment on above: Order Comment: Speci men Type: BLOOD SPECIMENOrdering Facility: [facility] Address: [address] [place] [address] Performed By: #### 3 3959-8, 43226-6, 90416-6 ####[facility]ORYCLIA [id number] [address] OF [facility] Procalcitonin SerPl-mCncon 0 10-28-2023 Procalcitonin [Mass/Vol] 0.07 ng/mL Normal <0.09 [facility] Comment on above: Order Comment: Speci men Type: BLOOD SPECIMENOrdering Facility: [facility] Address: [address] [place] [address] Result Comment: For a guided interpretation of test results, please visit the Change in Procalcitonin Calculator, [email or web address]. Performed By: #### 3 3959-8, 59993-2, 92455-1 ####[facility]ITALCLIA [id number] [address] [place] STAPHYLOCOCCUS AUREUS AND MR SA SCREEN, PCR, NASALon 10-28-2023 S. aureus and MRSA panel JAYDA+probe (Nose) Not detected Normal Not Detected [facility] Comment on above: Order Comment: Speci men Type: SWABOrdering Facility: [facility] Address: [address] [place] [address] Performed By: #### S APCR ####[facility]ATORYCLIA [id number] [address] [place] STREPTOCOCCUS PNEUMONIAE ANT IGEN URINEon 10-28-2023 STREPTOCOCCUS PNEUMONIAE ANTIGEN URINE Normal [facility] Comment on above: Performed By: #### S PNAG ####[facility]ATORYCLIA [id number] [address] Urinalysis complete panel (U )on 10-28-2023 Bilirubin Ql (U) Negative Normal Negative [facility] Comment on above: Order Comment: Speci men Type: URINE SPECIMENOrdering Facility: [facility] Address: [address] [place] [address] Performed By: #### 2 4356-8 ####[facility]ATORYCLIA [id number] [address] [place] Clarity (Unsp spec) Clear Normal Clear [facility] Comment on above: Order Comment: Speci men Type: URINE SPECIMENOrdering Facility: [facility] Address: [address] [place] [address] Performed By: #### 2 4356-8 ####[facility]ATORYCLIA [id number] [address] STATES [facility] Color (U) Light Yellow Normal yellow [facility] Comment on above: Order Comment: Speci men Type: URINE SPECIMENOrdering Facility: [facility] Address: [address] [place] [address] Performed By: #### 2 4356-8 ####[facility]ATORYCLIA [id number] [address] [place] Glucose Test strip (U) [Mass/Vol] 4+ Abnormal Trace, Negative [facility] Comment on above: Order Comment: Speci men Type: URINE SPECIMENOrdering Facility: [facility] Address: [address] [place] [address] Performed By: #### 2 4356-8 ####[facility]ORYCLIA [id number] [address] [place] Hemoglobin Ql (U) Negative Normal Negative, Trace [facility] Comment on above: Order Comment: Speci men Type: URINE SPECIMENOrdering Facility: [facility] Address: [address] [place] [address] Performed By: #### 2 4356-8 ####[facility]ORYCLIA [id number] [place] [address] [place] Ketones Ql (U) Negative Normal Negative, Trace [facility] Comment on above: Order Comment: Speci men Type: URINE SPECIMENOrdering Facility: [facility] Address: [address] [place] [address] Performed By: #### 2 4356-8 ####[facility]ORYCLIA [id number] [address] [place] Leukocyte esterase Test strip Ql (U) Negative Normal Negative, 25 Mei/uL [facility] Comment on above: Order Comment: Speci men Type: URINE SPECIMENOrdering Facility: [facility] Address: [address] [place] [address] Performed By: #### 2 4356-8 ####[facility]ORYCLIA [id number] [place] [address] [place] Nitrite Ql (U) Negative Normal Negative [facility] Comment on above: Order Comment: Speci men Type: URINE SPECIMENOrdering Facility: [facility] Address: [address] [place] [address] Performed By: #### 2 4356-8 ####[facility]ORYCLIA [id number] [address] [place] pH (U) 6.0 [pH] Normal 5.0-8.0 [facility] Comment on above: Order Comment: Speci men Type: URINE SPECIMENOrdering Facility: [facility] Address: [address] [place] [address] Performed By: #### 2 4356-8 ####[facility]ORYCLIA [id number] [place] [address] [place] Protein (U) [Mass/Vol] Negative Normal Trace , Negative [facility] Comment on above: Order Comment: Speci men Type: URINE SPECIMENOrdering Facility: [facility] Address: [address] [place] [address] Performed By: #### 2 4356-8 ####[facility]ORYCLIA [id number] [address] RBC LM.HPF (Urine sed) [#/Area] 0-3 /HPF Normal 0-3 /HPF [facility] Comment on above: Order Comment: Speci men Type: URINE SPECIMENOrdering Facility: [facility] Address: [address] [place] [address] Performed By: #### 2 4356-8 ####[facility]ORYCLIA [id number] [address] Specific gravity (U) [Rel density] 1.022 Normal 1.005-1.03 0 [facility] Comment on above: Order Comment: Speci men Type: URINE SPECIMENOrdering Facility: [facility] Address: [address] [place] [address] Performed By: #### 2 4356-8 ####[facility]ORYCLIA [id number] [address] Urobilinogen Ql (U) 1+ Abnormal Normal [facility] Comment on above: Order Comment: Speci men Type: URINE SPECIMENOrdering Facility: [facility] Address: [address] [place] [address] Performed By: #### 2 4356-8 ####[facility]ORYCLIA [id number] [address] WBC LM.HPF (Urine sed) [#/Area] 0-5 /HPF Normal 0-5 /HPF [facility] Comment on above: Order Comment: Speci men Type: URINE SPECIMENOrdering Facility: [facility] Address: [address] [place] [address] Performed By: #### 2 4356-8 ####[facility]ORYCLIA [id number] [address] CBC W Auto Differential pane l (Bld)on 10-27-2023 Basophils (Bld) [#/Vol] 10*3/uL Normal <0.11 [facility] Comment on above: Order Comment: Speci men Type: BLOOD SPECIMENOrdering Facility: [facility] Address: [address] [place] [address] Performed By: #### 5 7021-8 ####[facility] LABORATORYCLIA [id number] [address] [place] Basophils/100 WBC (Bld) 0.3 % Normal [facility] Comment on above: Order Comment: Speci men Type: BLOOD SPECIMENOrdering Facility: [facility] Address: [address] [place] [address] Performed By: #### 5 7021-8 ####[facility]ORYCLIA [id number] [address] [place] Differential cell count method Nom (Bld) Auto Normal [facility] Comment on above: Order Comment: Speci men Type: BLOOD SPECIMENOrdering Facility: [facility] Address: [address] [place] [address] Performed By: #### 5 7021-8 ####[facility]ATORYCLIA [id number] [address] [place] Eosinophils (Bld) [#/Vol] 0.08 10*3/uL Normal <0.46 [facility] Comment on above: Order Comment: Speci men Type: BLOOD SPECIMENOrdering Facility: [facility] Address: [address] [place] [address] Performed By: #### 5 7021-8 ####[facility]ORYCLIA [id number] [address] [place] Eosinophils/100 WBC (Bld) 1.3 % Normal [facility] Comment on above: Order Comment: Speci men Type: BLOOD SPECIMENOrdering Facility: [facility] Address: [address] [place] [address] Performed By: #### 5 7021-8 ####[facility]ORYCLIA [id number] [address] [place] Erythrocyte distribution width (RBC) [Ratio] 13.5 % Normal 11.5-15.0 [facility] Comment on above: Order Comment: Speci men Type: BLOOD SPECIMENOrdering Facility: [facility] Address: [address] [place] [address] Performed By: #### 5 7021-8 ####[facility]ORYCLIA [id number] [address] [place] Hematocrit (Bld) [Volume fraction] 39.4 % Normal 39.0-51.0 [facility] Comment on above: Order Comment: Speci men Type: BLOOD SPECIMENOrdering Facility: [facility] Address: [address] [place] [address] Performed By: #### 5 7021-8 ####[facility]ORYCLIA [id number] [address] [place] Hemoglobin (Bld) [Mass/Vol] 13.5 g/dL Normal 13.0-17.0 [facility] Comment on above: Order Comment: Speci men Type: BLOOD SPECIMENOrdering Facility: [facility] Address: [address] [place] [address] Performed By: #### 5 7021-8 ####[facility]ORYCLIA [id number] [address] [place] Immature granulocytes (Bld) [#/Vol] 0.03 10*3/uL Normal <0.10 [facility] Comment on above: Order Comment: Speci men Type: BLOOD SPECIMENOrdering Facility: [facility] Address: [address] [place] [address] Performed By: #### 5 7021-8 ####[facility]ORYCLIA [id number] [address] [place] Immature granulocytes/100 WBC (Bld) 0.5 % Normal [facility] Comment on above: Order Comment: Speci men Type: BLOOD SPECIMENOrdering Facility: [facility] Address: [address] [place] [address] Performed By: #### 5 7021-8 ####[facility]ORYCLIA [id number] [address] [place] Lymphocytes (Bld) [#/Vol] 0.51 10*3/uL Low 1.00-4.00 [facility] Comment on above: Order Comment: Speci men Type: BLOOD SPECIMENOrdering Facility: [facility] Address: [address] [place] [address] Performed By: #### 5 7021-8 ####[facility]ORYCLIA [id number] [address] Lymphocytes/100 WBC (Bld) 8.0 % Normal [facility] Comment on above: Order Comment: Speci men Type: BLOOD SPECIMENOrdering Facility: [facility] Address: [address] [place] [address] Performed By: #### 5 7021-8 ####[facility]ORYCLIA [id number] [address] [place] MCH (RBC) [Entitic mass] 32.4 pg Normal 26.0-34.0 [facility] Comment on above: Order Comment: Speci men Type: BLOOD SPECIMENOrdering Facility: [facility] Address: [address] [place] [address] Performed By: #### 5 7021-8 ####[facility]ORYCLIA [id number] [address] STATES OF [facility] MCHC (RBC) [Mass/Vol] 34.3 g/dL Normal 30.5-36.0 [facility] [facility] Comment on above: Order Comment: Speci men Type: BLOOD SPECIMENOrdering Facility: [facility] Address: [address] [place] [address] Performed By: #### 5 7021-8 ####[facility] LABORATORYCLIA [id number] [address] [place] MCV (RBC) [Entitic vol] 94.5 fL Normal 80.0-100.0 [facility] Comment on above: Order Comment: Speci men Type: BLOOD SPECIMENOrdering Facility: [facility] Address: [address] [place] [address] Performed By: #### 5 7021-8 ####[facility] LABORATORYCLIA [id number] [place] [address] [place] Monocytes (Bld) [#/Vol] 0.71 10*3/uL Normal <0.87 [facility] Comment on above: Order Comment: Speci men Type: BLOOD SPECIMENOrdering Facility: [facility] Address: [address] [place] [address] Performed By: #### 5 7021-8 ####[facility] LABORATORYCLIA [id number] [place] [address] [place] Monocytes/100 WBC (Bld) 11.2 % Normal [facility] Comment on above: Order Comment: Speci men Type: BLOOD SPECIMENOrdering Facility: [facility] Address: [address] [place] [address] Performed By: #### 5 7021-8 ####[facility] LABORATORYCLIA [id number] [place] [address] [place] Neutrophils (Bld) [#/Vol] 5.00 10*3/uL Normal 1.45-7.50 [facility] Comment on above: Order Comment: Speci men Type: BLOOD SPECIMENOrdering Facility: [facility] Address: [address] [place] [address] Performed By: #### 5 7021-8 ####[facility] LABORATORYCLIA [id number] [address] [place] Neutrophils/100 WBC (Bld) 78.7 % Normal [facility] Comment on above: Order Comment: Speci men Type: BLOOD SPECIMENOrdering Facility: [facility] Address: [address] [place] [address] Performed By: #### 5 7021-8 ####[facility] LABORATORYCLIA [id number] [place] [address] [place] Nucleated RBC (Bld) [#/Vol] 10*3/uL Normal <0.01 [facility] Comment on above: Order Comment: Speci men Type: BLOOD SPECIMENOrdering Facility: [facility] Address: [address] [place] [address] Performed By: #### 5 7021-8 ####[facility] LABORATORYCLIA [id number] [address] STATES OF [facility] Nucleated RBC/100 WBC (Bld) [Ratio] 0.0 /100 WBC Normal [facility] Comment on above: Order Comment: Speci men Type: BLOOD SPECIMENOrdering Facility: [facility] Address: [address] [place] [address] Performed By: #### 5 7021-8 ####[facility] LABORATORYCLIA [id number] [address] OF [facility] Platelet mean volume (Bld) [Entitic vol] 9.2 fL Normal 9.0-12.7 [facility] Comment on above: Order Comment: Speci men Type: BLOOD SPECIMENOrdering Facility: [facility] Address: [address] [place] [address] Performed By: #### 5 7021-8 ####[facility] LABORATORYCLIA [id number] [address] Platelets (Bld) [#/Vol] 153 10*3/uL Normal 150-400 [facility] Comment on above: Order Comment: Speci men Type: BLOOD SPECIMENOrdering Facility: [facility] Address: [address] [place] [address] Result Comment: No c lot detected. Performed By: #### 5 7021-8 ####[facility] LABORATORYCLIA [id number] [address] OF [place] RBC (Bld) [#/Vol] 4.17 10*6/uL Low 4.20-6.00 [facility] Comment on above: Order Comment: Speci men Type: BLOOD SPECIMENOrdering Facility: [facility] Address: [address] [place] [address] Performed By: #### 5 7021-8 ####[facility] LABORATORYCLIA [id number] [address] OF [place] WBC (Bld) [#/Vol] 6.35 10*3/uL Normal 3.70-11.00 [facility] Comment on above: Order Comment: Speci men Type: BLOOD SPECIMENOrdering Facility: [facility] Address: [address] [place] [address] Performed By: #### 5 7021-8 ####[facility] LABORATORYCLIA [id number] [address] OF [facility] Comprehensive metabolic 2000 panelon 10-27-2023 Albumin [Mass/Vol] 3.2 g/dL Low 3.9-4.9 [facility] Comment on above: Order Comment: Speci men Type: BLOOD SPECIMENOrdering Facility: [facility] Address: [address] [place] [address] Performed By: #### 2 4323-8, ####[facility] LABORATORYCLIA [id number] [address] [place] ALP [Catalytic activity/Vol] 63 U/L Normal 38-113 [facility] Comment on above: Order Comment: Speci men Type: BLOOD SPECIMENOrdering Facility: [facility] Address: [address] [place] [address] Performed By: #### 2 4323-8, ####[facility]ORATORYCLIA [id number] [address] ALT With P-5'-P [Catalytic activity/Vol] 16 U/L Normal 10-54 [facility] Comment on above: Order Comment: Speci men Type: BLOOD SPECIMENOrdering Facility: [facility] Address: [address] [place] [address] Performed By: #### 2 4323-8, ####[facility]ORATORYCLIA [id number] [address] Anion gap [Moles/Vol] 11 mmol/L Normal 8-15 [facility] Comment on above: Order Comment: Speci men Type: BLOOD SPECIMENOrdering Facility: [facility] Address: [address] [place] [address] Performed By: #### 2 4323-8, ####[facility]ATORYCLIA [id number] [place] [address] [place] AST With P-5'-P [Catalytic activity/Vol] 16 U/L Normal 14-40 [facility] Comment on above: Order Comment: Speci men Type: BLOOD SPECIMENOrdering Facility: [facility] Address: [address] [place] [address] Performed By: #### 2 4328, ####[facility]ORATORYCLIA [id number] [place] [address] [place] Bilirubin [Mass/Vol] 0.4 mg/dL Normal 0.2-1.3 [facility] Comment on above: Order Comment: Speci men Type: BLOOD SPECIMENOrdering Facility: [facility] Address: [address] [place] [address] Performed By: #### 2 4328, ####[facility]ORATORYCLIA [id number] [place] [address] [place] Calcium [Mass/Vol] 8.3 mg/dL Low 8.5-10.2 [facility] Comment on above: Order Comment: Speci men Type: BLOOD SPECIMENOrdering Facility: [facility] Address: [address] [place] [address] Performed By: #### 2 8, ####[facility]ORATORYCLIA [id number] [place] [address] [place] Chloride [Moles/Vol] 100 mmol/L Normal 98-107 [facility] Comment on above: Order Comment: Speci men Type: BLOOD SPECIMENOrdering Facility: [facility] Address: [address] [place] [address] Performed By: #### 2 4323-8, ####[facility]ORATORYCLIA [id number] [place] [address] [place] CO2 [Moles/Vol] 24 mmol/L Normal 22-30 [facility] Comment on above: Order Comment: Speci men Type: BLOOD SPECIMENOrdering Facility: [facility] Address: [address] [place] [address] Performed By: #### 2 4323-8, ####[facility]ALTHIA [id number] [place] [id number] [place] Creatinine [Mass/Vol] 0.90 mg/dL Normal 0.73-1.22 [facility] Comment on above: Order Comment: Leny men Type: BLOOD SPECIMENOrdering Facility: [facility] Address: [address] [place] [address] Performed By: #### 2 4323-8, ####[facility]ALTHIA [id number] [place] [id number] [facility] Creatinine and Glomerular filtration rate.predicted panel (S/P/Bld) 84 mL/min/1.73m??? Normal >=60 [facility] Comment on above: Order Comment: Leny patel Type: BLOOD SPECIMENOrdering Facility: [facility] Address: [address] [place] [address] Result Comment: Alexia mated Glomerular Filtration Rate (eGFR) is calculated using the 2020 CKD-EPI creatinine equation. This equation utilizes serum creatinine, sex, and age as parameters. The creatinine assay has traceable calibration to isotope dilution-mass spectrometry. Refer to KDIGO guidelines for clinical interpretation. In patients with unstable renal function, e.g. those with acute kidney injury, the eGFR may not accurately reflect actual GFR. Performed By: #### 2 4323-8, ####[facility]ATORYIA [id number] [place] [id number] [place] Glucose [Mass/Vol] 120 mg/dL High 74-99 [facility] Comment on above: Order Comment: Leny patel Type: BLOOD SPECIMENOrdering Facility: [facility] Address: [address] [place] [address] Result Comment: The [place] [employer] (ADA) provides guidance for cutoff values for fasting glucose and random glucose. The ADA defines fasting as no caloric intake for at least 8 hours. Fasting plasma glucose results between 100 to 125 mg/dL indicate increased risk for diabetes (prediabetes).Fasting plasma glucose results greater than or equal to 126 mg/dL meet the criteria for diagnosis of diabetes. In the absence of unequivocal hyperglycemia, results should be confirmed by repeat testing. In a patient with classic symptoms of hyperglycemia or hyperglycemic crisis, random plasma glucose results greater than or equal to 200 mg/dL meet the criteria for diagnosis of diabetes.Reference: Standards of Medical Care in Diabetes 2016, [place] [employer]. Diabetes Care. 2016.39(Suppl 1). Performed By: #### 2 4323-8, ####[facility]ORATORYCLIA [id number] [place] [address] [place] Potassium [Moles/Vol] 4.2 mmol/L Normal 3.7-5.1 [facility] Comment on above: Order Comment: Leny patel Type: BLOOD SPECIMENOrdering Facility: [facility] Address: [address] [place] [address] Performed By: #### 2 4322-10, ####[facility]ATORYCLIA [id number] [place] [address] [place] Protein [Mass/Vol] 5.7 g/dL Low 6.3-8.0 [facility] Comment on above: Order Comment: Leny patel Type: BLOOD SPECIMENOrdering Facility: [facility] Address: [address] [place] [address] Performed By: #### 2 43205-21, ####[facility]ORATORYCLIA [id number] [place] [address] [place] Sodium [Moles/Vol] 135 mmol/L Low 136-144 [facility] Comment on above: Order Comment: Leny patel Type: BLOOD SPECIMENOrdering Facility: [facility] Address: [address] [place] [address] Performed By: #### 2 43205-21, ####[facility]ATORYCLIA [id number] [place] [address] [place] Urea nitrogen [Mass/Vol] 15 mg/dL Normal 9-24 [facility] Comment on above: Order Comment: Speci men Type: BLOOD SPECIMENOrdering Facility: [facility] Address: [address] [place] [address] Performed By: #### 2 4323-8, 54925-1 ####[facility]ORATORYCLIA [id number] [place] [address] [place] HISTORY PHYSICALon HISTORY PHYSICAL Normal [facility] Magnesium SerPl-mCncon 10-26 Magnesium [Mass/Vol] 2.1 mg/dL Normal 1.7-2.3 [facility] Comment on above: Order Comment: Speci amanda Type: BLOOD SPECIMENOrdering Facility: [facility] Address: [address] [place], [place] [address] Performed By: #### 2 4323-8, 72465-4 ####[facility] LABORATORYCLIA [id number] [address] [place] .GFRon 09-08-2023 GFR Non- 68 ml/min/1.73sqm Normal [facility] ([place]) Comment on above: Result Comment: GFR Population mean for , Non- Americans Ages 20-29 = 116 mL/min/1.73 sq.m. Ages 30-39 = 107 mL/min/1.73 sq.m. Ages 40-49 = 99 mL/min/1.73 sq.m. Ages 50-59 = 93 mL/min/1.73 sq.m. Ages 60-69 = 85 mL/min/1.73 sq.m. Ages 70+ = 75 mL/min/1.73 sq.m.Chronic Kidney Disease: Less than 60 mL/min/1.73 square metersEnd Stage Renal Disease: Less than 15 mL/min/1.73 square meters Performed By: #### B MP, PBNP, GFR ####[place] [address] [place] [id number] GFR 82 ml/min/1.73sqm Normal [facility] ([place]) Comment on above: Result Comment: GFR Population mean for , Non- Americans Ages 20-29 = 116 mL/min/1.73 sq.m. Ages 30-39 = 107 mL/min/1.73 sq.m. Ages 40-49 = 99 mL/min/1.73 sq.m. Ages 50-59 = 93 mL/min/1.73 sq.m. Ages 60-69 = 85 mL/min/1.73 sq.m. Ages 70+ = 75 mL/min/1.73 sq.m.Chronic Kidney Disease: Less than 60 mL/min/1.73 square metersEnd Stage Renal Disease: Less than 15 mL/min/1.73 square meters Performed By: #### B MP, PBNP, GFR ####[address] [place], [place] [address] BMPon 09-08-2023 BUN/Creatinine Ratio 14 ratio Normal 7-27 [facility] ([place]) Comment on above: Performed By: #### B MP, PBNP, GFR ####[place] [place], [place] [address] Calcium [Mass/Vol] 8.7 mg/dL Normal 8.4-10.2 [facility] ([place]) Comment on above: Performed By: #### B MP, PBNP, GFR ####[address] [place], [place] [address] Chloride [Moles/Vol] 103 mmol/L Normal 98-107 [facility] ([place]) Comment on above: Performed By: #### B MP, PBNP, GFR ####[address] [place], [place] [address] CO2 [Moles/Vol] 31 mmol/L Normal 23-31 [facility] ([place]) Comment on above: Performed By: #### B MP, PBNP, GFR ####[address] [place], [place] [address] Creatinine [Mass/Vol] 1.04 mg/dL Normal 0.70-1.30 [facility] ([place]) Comment on above: Performed By: #### B MP, PBNP, GFR ####[address] [place], [place] [address] Electrolyte Balance 8.0 mEq/L Normal 4.0-15.0 [facility] ([place]) Comment on above: Performed By: #### B MP, PBNP, GFR ####[place] [address] [place], [place] [address] Glucose [Mass/Vol] 96 mg/dL Normal 83-110 [facility] ([place]) Comment on above: Performed By: #### B MP, PBNP, GFR ####[address] [place], [place] [address] Potassium [Moles/Vol] 4.3 mmol/L Normal 3.5-5.1 [facility] ([place]) Comment on above: Performed By: #### B MP, PBNP, GFR ####[address] [place], [place] [address] Sodium [Moles/Vol] 142 mmol/L Normal 136-145 [facility] ([place]) Comment on above: Performed By: #### B MP, PBNP, GFR ####[address] [place], [place] [address] Urea nitrogen [Mass/Vol] 15 mg/dL Normal 7-18 [facility] ([place]) Comment on above: Performed By: #### B MP, PBNP, GFR ####[address] [place], [place] [address] LABORATORYOrdered By: SYSTEM SYSTEM on 09-08-2023 Calcium [Mass/Vol] 8.7 mg/dL Normal 8.4 - 10. 2 mg/dL AO ADM SS Chloride [Moles/Vol] 103 mmol/L Normal 98 - 10 7 mmol/L AO ADM SS CO2 [Moles/Vol] 31 mmol/L Normal 23 - 31 mmol/L AO ADM SS Creatinine [Mass/Vol] 1.04 mg/dL Normal 0.70 - 1.30 mg/dL AO ADM SS Electrolyte Balance 8.0 mEq/L Normal 4.0 - 15 .0 mEq/L AO ADM SS GFR/1.73 sq M.predicted among blacks MDRD (S/P/Bld) [Vol rate/Area] 82 ml/min/1.73sqm Invalid Interpretation Code AO Chemistry S Comment on above: Interpretive Data: GFR Population mean for , Non- Americans Ages 20-29 = 116 mL/min/1.73 sq.m. Ages 30-39 = 107 mL/min/1.73 sq.m. Ages 40-49 = 99 mL/min/1.73 sq.m. Ages 50-59 = 93 mL/min/1.73 sq.m. Ages 60-69 = 85 mL/min/1.73 sq.m. Ages 70+ = 75 mL/min/1.73 sq.m. Chronic Kidney Disease: Less than 60 mL/min/1.73 square meters End Stage Renal Disease: Less than 15 mL/min/1.73 square meters GFR/1.73 sq M.predicted among non-blacks MDRD (S/P/Bld) [Vol rate/Area] 68 ml/min/1.73sqm Invalid Interpretation Code AO Chemistry S Comment on above: Interpretive Data: GFR Population mean for , Non- Americans Ages 20-29 = 116 mL/min/1.73 sq.m. Ages 30-39 = 107 mL/min/1.73 sq.m. Ages 40-49 = 99 mL/min/1.73 sq.m. Ages 50-59 = 93 mL/min/1.73 sq.m. Ages 60-69 = 85 mL/min/1.73 sq.m. Ages 70+ = 75 mL/min/1.73 sq.m. Chronic Kidney Disease: Less than 60 mL/min/1.73 square meters End Stage Renal Disease: Less than 15 mL/min/1.73 square meters Glucose [Mass/Vol] 96 mg/dL Normal 83 - 110 mg/dL AO ADM SS Natriuretic peptide.B prohormone N-Terminal [Mass/Vol] 162 pg/mL Normal 0 - 450 pg/mL AO ADM SS Comment on above: Interpretive Data: N T-proBNP results of less than 300 pg/mL effectively rules out acute congestive heart failure with 99% negative predictive value. Potassium [Moles/Vol] 4.3 mmol/L Normal 3.5 - 5.1 mmol/L AO ADM SS Sodium [Moles/Vol] 142 mmol/L Normal 136 - 145 mmol/L AO ADM SS Urea nitrogen [Mass/Vol] 15 mg/dL Normal 7 - 18 mg/dL AO ADM SS Urea nitrogen/Creatinine [Mass ratio] 14 ratio Normal 7 - 27 ratio AO ADM SS PBNPon 09-08-2023 Natriuretic peptide B (Bld) [Mass/Vol] 162 pg/mL Normal 0-450 [facility] ([place]) Comment on above: Result Comment: NT-p roBNP results of less than 300 pg/mL effectivelyrules out acute congestive heart failure with 99% negative predictive value. Performed By: #### B MP, PBNP, GFR ####[place] [address] [place], [place] [address] CT THORAX W/O CONTRASTon CT THORAX W/O CONTRAST Normal [facility] ([place]) .Auto Diffon 07-14-2023 Basophil, Absolute 0.1 10 3/mcL Normal 0.0-0.2 [facility] ([place]) Comment on above: Performed By: #### A ROSIO, PBNP, ADIFF, GFR, CBC, BMP ####[place] [address] [place], [place] [address] Basophils/100 WBC (Bld) 0.8 % Normal 0.0-2.5 [facility] ([place]) Comment on above: Performed By: #### A ROSIO, PBNP, ADIFF, GFR, CBC, BMP ####[place] [address] [place], [place] [address] Eosinophil, Absolute 0.2 10 3/mcL Normal 0.0-0.4 [facility] ([place]) Comment on above: Performed By: #### A ROSIO, PBNP, ADIFF, GFR, CBC, BMP ####[place] [address] [address] Eosinophils/100 WBC (Bld) 2.4 % Normal 0.0-7.0 [facility] ([place]) Comment on above: Performed By: #### A ROSIO, PBNP, ADIFF, GFR, CBC, BMP ####[place] [address] [place], [place] [address] Lymphocyte, Absolute 0.9 10 3/mcL Normal 0.8-3.9 [facility] ([place]) Comment on above: Performed By: #### A ROSIO, PBNP, ADIFF, GFR, CBC, BMP ####[place] [address] [place], [place] [address] Lymphocytes/100 WBC (Bld) 9.7 % Low 10.0-50.0 [facility] ([place]) Comment on above: Performed By: #### A ROSIO, PBNP, ADIFF, GFR, CBC, BMP ####[place] [place], [place] [address] Monocyte, Absolute 0.9 10 3/mcL Normal 0.2-1.0 [facility] ([place]) Comment on above: Performed By: #### A ROSIO, PBNP, ADIFF, GFR, CBC, BMP ####[place] [address] [place], [place] [address] Monocytes/100 WBC (Bld) 9.0 % Normal 1.7-13.0 [facility] ([place]) Comment on above: Performed By: #### A ROSIO, PBNP, ADIFF, GFR, CBC, BMP ####[place] [address] [place], [place] [address] Neutrophils/100 WBC (Bld) 78.1 % Normal 37.0-80.0 [facility] ([place]) Comment on above: Performed By: #### A ROSIO, PBNP, ADIFF, GFR, CBC, BMP ####[place] [address] [place], [place] [address] .GFRon 07-14-2023 GFR 82 ml/min/1.73sqm Normal [facility] ([place]) Comment on above: Result Comment: GFR Population mean for , Non- Americans Ages 20-29 = 116 mL/min/1.73 sq.m. Ages 30-39 = 107 mL/min/1.73 sq.m. Ages 40-49 = 99 mL/min/1.73 sq.m. Ages 50-59 = 93 mL/min/1.73 sq.m. Ages 60-69 = 85 mL/min/1.73 sq.m. Ages 70+ = 75 mL/min/1.73 sq.m.Chronic Kidney Disease: Less than 60 mL/min/1.73 square metersEnd Stage Renal Disease: Less than 15 mL/min/1.73 square meters Performed By: #### A ROSIO, PBNP, ADIFF, GFR, CBC, BMP ####[place] [address] [place], [place] [address] GFR Non- 68 ml/min/1.73sqm Normal [facility] ([place]) Comment on above: Result Comment: GFR Population mean for , Non- Americans Ages 20-29 = 116 mL/min/1.73 sq.m. Ages 30-39 = 107 mL/min/1.73 sq.m. Ages 40-49 = 99 mL/min/1.73 sq.m. Ages 50-59 = 93 mL/min/1.73 sq.m. Ages 60-69 = 85 mL/min/1.73 sq.m. Ages 70+ = 75 mL/min/1.73 sq.m.Chronic Kidney Disease: Less than 60 mL/min/1.73 square metersEnd Stage Renal Disease: Less than 15 mL/min/1.73 square meters Performed By: #### A ROSIO, PBNP, ADIFF, GFR, CBC, BMP ####[place] [address] [place], [place] [address] .NEUABSon 07-14-2023 Neutrophil, Absolute 7.5 10 3/mcL High 2.9-6.2 [facility] ([place]) Comment on above: Performed By: #### A ROSIO, PBNP, ADIFF, GFR, CBC, BMP ####[place] [address] [place], [place] [address] BMPon 07-14-2023 BUN/Creatinine Ratio 14 ratio Normal 7-27 [facility] ([place]) Comment on above: Performed By: #### A ROSIO, PBNP, ADIFF, GFR, CBC, BMP ####[place] [place], [place] [address] Calcium [Mass/Vol] 8.7 mg/dL Normal 8.4-10.2 [facility] ([place]) Comment on above: Performed By: #### A ROSIO, PBNP, ADIFF, GFR, CBC, BMP ####[place] [address] [place], [place] [address] Chloride [Moles/Vol] 101 mmol/L Normal 98-107 [facility] ([place]) Comment on above: Performed By: #### A ROSIO, PBNP, ADIFF, GFR, CBC, BMP ####[place] [place], [place] [address] CO2 [Moles/Vol] 33 mmol/L High 23-31 [facility] ([place]) Comment on above: Performed By: #### A ROSIO, PBNP, ADIFF, GFR, CBC, BMP ####[place] [place], [place] [address] Creatinine [Mass/Vol] 1.04 mg/dL Normal 0.70-1.30 [facility] ([place]) Comment on above: Performed By: #### A ROSIO, PBNP, ADIFF, GFR, CBC, BMP ####[place] [place], [place] [address] Electrolyte Balance 8.0 mEq/L Normal 4.0-15.0 [facility] ([place]) Comment on above: Performed By: #### A ROSIO, PBNP, ADIFF, GFR, CBC, BMP ####[place] [place], [place] [address] Glucose [Mass/Vol] 118 mg/dL High 83-110 [facility] ([place]) Comment on above: Performed By: #### A ROSIO, PBNP, ADIFF, GFR, CBC, BMP ####[place] [address] [place], [place] [address] Potassium [Moles/Vol] 3.9 mmol/L Normal 3.5-5.1 [facility] ([place]) Comment on above: Performed By: #### A ROSIO, PBNP, ADIFF, GFR, CBC, BMP ####[place] [address] [place], [place] [address] Sodium [Moles/Vol] 142 mmol/L Normal 136-145 [facility] ([place]) Comment on above: Performed By: #### A ROSIO, PBNP, ADIFF, GFR, CBC, BMP ####[place] [place], [place] [address] Urea nitrogen [Mass/Vol] 15 mg/dL Normal 7-18 [facility] ([place]) Comment on above: Performed By: #### A ROSIO, PBNP, ADIFF, GFR, CBC, BMP ####[place] [address] [place], [place] [address] CBCon 07-14-2023 Erythrocyte distribution width (RBC) [Ratio] 15.2 % High 11.5-14.5 [facility] ([place]) Comment on above: Performed By: #### A ROSIO, PBNP, ADIFF, GFR, CBC, BMP ####[place] [address] [place], [place] [address] Hematocrit (Bld) [Volume fraction] 41.2 % Low 42.0-52.0 [facility] ([place]) Comment on above: Performed By: #### A ROSIO, PBNP, ADIFF, GFR, CBC, BMP ####[place] [place], [place] [address] Hgb 14.0 G/dL Normal 14.0-18.0 [facility] ([place]) Comment on above: Performed By: #### A ROSIO, PBNP, ADIFF, GFR, CBC, BMP ####[address] [place], [place] [address] MCH (RBC) [Entitic mass] 30.9 pg Normal 27.0-31.2 [facility] ([place]) Comment on above: Performed By: #### A ROSIO, PBNP, ADIFF, GFR, CBC, BMP ####[address] [place], [place] [address] MCHC 33.9 G/dL Normal 31.8-35.4 [facility] [place] ([place] Comment on above: Performed By: #### A ROSIO, PBNP, ADIFF, GFR, CBC, BMP ####[address] [place], [place] [address] MCV (RBC) [Entitic vol] 91.2 fL Normal 80.0-94.0 [facility] [place] ([place]) Comment on above: Performed By: #### A ROSIO, PBNP, ADIFF, GFR, CBC, BMP ####[address] [place], [place] [address] Platelet 247 10 3/mcL Normal 130-400 [facility] [place] ([place]) Comment on above: Performed By: #### A ROSIO, PBNP, ADIFF, GFR, CBC, BMP ####[address] [place], [place] [address] Platelet mean volume (Bld) [Entitic vol] 7.5 fL Normal 7.4-10.4 [facility] [place] ([place] Comment on above: Performed By: #### A ROSIO, PBNP, ADIFF, GFR, CBC, BMP ####[address] [place], [place] [address] RBC 4.52 10 6/mcL Normal 4.04-6.13 [facility] [place] ([place] Comment on above: Performed By: #### A ROSIO, PBNP, ADIFF, GFR, CBC, BMP ####[address] [place], [place] [address] WBC 9.6 10 3/mcL Normal 4.6-10.8 [facility] [place] ([place] Comment on above: Performed By: #### A ROSIO, PBNP, ADIFF, GFR, CBC, BMP ####[address] [place], [place] [address] PBNPon 07-14-2023 Natriuretic peptide B (Bld) [Mass/Vol] 145 pg/mL Normal 0-450 [facility] [place] ([place]) Comment on above: Result Comment: NT-p roBNP results of less than 300 pg/mL effectivelyrules out acute congestive heart failure with 99% negative predictive value. Performed By: #### A ROSIO, PBNP, ADIFF, GFR, CBC, BMP ####[address] [place], [place] [address] Absolute lymphocyte countOrd ered By: Houston Shook on 06-06-2023 Lymphocytes Auto (Unsp spec) [#/Vol] 1.11 10*3/uL 0.83-4.51 [facility] Automated lymphocyte count a s percentage of total leukocytesOrdered By: Houston Shook on 06-06-2023 Lymphocytes/100 WBC Auto (Unsp spec) 9.0 % 19-41 [facility] Basophil percentageOrdered B y: Houston Shook on 06-06-2023 Basophils/100 WBC (Bld) 1.0 % 0-1 [facility] Chloride [Moles/Vol] 109 mmol/L 98-107 [facility] Eosinophils/100 WBC (Bld) 1.1 % 0-5 [facility] Glucose [Mass/Vol] 140 mg/dL 74-106 [facility] Comment on above: Fasting Glucose resu lt greater than or equal to 126 mg/dL suggests DIABETES MELLITUS per A.D.A. criteria. Hemoglobin (Bld) [Mass/Vol] 13.6 g/dL 13.0-16.5 [facility] Monocytes/100 WBC (Bld) 8.4 % 0-10 [facility] Neutrophils (Bld) [#/Vol] 9.9 10*3/uL 2.0-7.7 [facility] Neutrophils/100 WBC (Bld) 80.1 % 47-70 [facility] Potassium [Moles/Vol] 4.2 mmol/L 3.5-5.1 [facility] Sodium [Moles/Vol] 140 mmol/L 136-145 [facility] WBC (Bld) [#/Vol] 12.3 10*3/uL 4.4-11.0 [facility] Determination of erythrocyte mean corpuscular volume (MCV)Ordered By: Houston Shook on 06-06-2023 MCV (RBC) [Entitic vol] 94.8 fL 80-94 [facility] Erythrocyte distribution wid th ratioOrdered By: Houston Shook on 06-06-2023 Erythrocyte distribution width (RBC) [Ratio] 14.3 % 11.6-14.6 [facility] Erythrocyte distribution wid th standard deviationOrdered By: Houston Shook on 06-06-2023 Erythrocyte distribution width (RBC) [Entitic vol] 50.2 fL 35.1-43.9 [facility] Hematocrit Auto (Bld) [Volum e fraction]Ordered By: Houston Shook on 06-06-2023 Hematocrit (Bld) [Volume fraction] 43.7 % 40-54 [facility] Immature granulocytes/100 WB C Auto (Bld)Ordered By: Houston Shook on 06-06-2023 Immature granulocytes/100 WBC (Bld) 0.400 % 0.0-0.9 [facility] Comment on above: IG% - Immature Granu locytes (promyelocytes, myelocytes and metamyelocytes) > 1% indicates that a LEFT SHIFT is Present. Laboratory - Chemistry and C hemistry - challengeOrdered By: Houston Shook on 06-06-2023 CO2 [Moles/Vol] 25.0 mmol/L 21.0-32.0 [facility] Natriuretic peptide B (Bld) [Mass/Vol] 156.3 pg/mL 0-100 [facility] Urea nitrogen/Creatinine [Mass ratio] 12.6 mg/mg 10-20 [facility] Laboratory - Hematology and Cell countsOrdered By: Houston Shook on 06-06-2023 MCH (RBC) [Entitic mass] 29.5 pg 27.0-32.0 [facility] MCHC (RBC) [Mass/Vol] 31.1 g/dL 32-36 [facility] Nucleated RBC/100 WBC (Bld) [Ratio] 0 % 0-5 [facility] Platelet mean volume (Bld) [Entitic vol] 9.4 fL 6.2-12.0 [facility] Platelets (Bld) [#/Vol] 303 10*3/uL 150-450 [facility] No Panel InformationOrdered By: Houston Shook on 06-06-2023 Estimated Creatinine Clearance Calc 47.93 ml/min [facility] Estimated GFR (MDRD) Amer 81 mL/min >60 [facility] Comment on above: GFR Calc Estimated GFR (MDRD) Non-Af Amer 67 mL/min >60 [facility] Comment on above: Non- GFR Calc Troponin I High Sensitivity 10 pg/mL 3.0-78.0 [facility] Comment on above: Please Note: [place] t Units and Gender Specific Reference Ranges. For more information see Policy Stat Procedure [place] High Sensitivity Troponin (TNIH) and attachments. RBC Auto (Bld) [#/Vol]Ordere d By: Houston Shook on 06-06-2023 RBC (Bld) [#/Vol] 4.61 10*6/uL 4.6-6.2 [facility] Serum or plasma calcium misbah urement (mass/volume)Ordered By: Houston Shook on 06-06-2023 Calcium [Mass/Vol] 8.7 mg/dL 8.5-10.1 [facility] Serum or plasma creatinine m easurement (mass/volume)Ordered By: Houston Shook on 06-06-2023 Creatinine [Mass/Vol] 1.11 mg/dL 0.70-1.30 [facility] Comment on above: The validity of the calculated GFR & GFRAA in patients over 70 years has not been determined. Clinical correlation is essential. Serum or plasma urea nitroge n measurement (mass/volume)Ordered By: Houston Shook on 06-06-2023 Urea nitrogen [Mass/Vol] 14 mg/dL 7-18 [facility] Thin prep Papanicolaou smear with manual screeningOrdered By: Houston Shook on 06-06-2023 Thin prep Papanicolaou smear with manual screening 6 5-15 [facility] XR CHEST 2 VIEWSon XR CHEST 2 VIEWS Normal [facility] [place] ([place]) .Auto Diffon 06-03-2023 Basophil, Absolute 0.1 10 3/mcL Normal 0.0-0.2 [facility] ([place]) Comment on above: Performed By: #### P BNP, FERR, ADIFF, LIPID, ANEU, GFR, MG, CBC, FE, CMP ####[place] [address]#### B12 ####[address] [address] Basophils/100 WBC (Bld) 0.9 % Normal 0.0-2.5 [facility] [place] ([place] Comment on above: Performed By: #### P BNP, FERR, ADIFF, LIPID, ANEU, GFR, MG, CBC, FE, CMP ####[place] [address]#### B12 ####[address] [address] Eosinophil, Absolute 0.5 10 3/mcL High 0.0-0.4 [facility] ([place]) Comment on above: Performed By: #### P BNP, FERR, ADIFF, LIPID, ANEU, GFR, MG, CBC, FE, CMP ####[place] [address]#### B12 ####[address] [address] Eosinophils/100 WBC (Bld) 4.7 % Normal 0.0-7.0 [facility] [place] ([place] Comment on above: Performed By: #### P BNP, FERR, ADIFF, LIPID, ANEU, GFR, MG, CBC, FE, CMP ####[place] [address]#### B12 ####[address] [address] Lymphocyte, Absolute 1.3 10 3/mcL Normal 0.8-3.9 [facility] ([place]) Comment on above: Performed By: #### P BNP, FERR, ADIFF, LIPID, ANEU, GFR, MG, CBC, FE, CMP ####[place] [address]#### B12 ####[address] [address] Lymphocytes/100 WBC (Bld) 13.1 % Normal 10.0-50.0 [facility] [place] ([place] Comment on above: Performed By: #### P BNP, FERR, ADIFF, LIPID, ANEU, GFR, MG, CBC, FE, CMP ####[place] [address]#### B12 ####[address] [address] Monocyte, Absolute 0.9 10 3/mcL Normal 0.2-1.0 [facility] ([place]) Comment on above: Performed By: #### P BNP, FERR, ADIFF, LIPID, ANEU, GFR, MG, CBC, FE, CMP ####[place] [address]#### B12 ####[address] [address] Monocytes/100 WBC (Bld) 9.0 % Normal 1.7-13.0 [facility] [place] ([place] Comment on above: Performed By: #### P BNP, FERR, ADIFF, LIPID, ANEU, GFR, MG, CBC, FE, CMP ####[address] [address]#### B12 ####[address] [address] Neutrophils/100 WBC (Bld) 72.3 % Normal 37.0-80.0 [facility] [place] ([place] Comment on above: Performed By: #### P BNP, FERR, ADIFF, LIPID, ANEU, GFR, MG, CBC, FE, CMP ####[address] [address]#### B12 ####[address] [address] .GFRon 06-03-2023 GFR 88 ml/min/1.73sqm Normal [facility] [place] ([place]) Comment on above: Result Comment: GFR Population mean for , Non- Americans Ages 20-29 = 116 mL/min/1.73 sq.m. Ages 30-39 = 107 mL/min/1.73 sq.m. Ages 40-49 = 99 mL/min/1.73 sq.m. Ages 50-59 = 93 mL/min/1.73 sq.m. Ages 60-69 = 85 mL/min/1.73 sq.m. Ages 70+ = 75 mL/min/1.73 sq.m.Chronic Kidney Disease: Less than 60 mL/min/1.73 square metersEnd Stage Renal Disease: Less than 15 mL/min/1.73 square meters Performed By: #### P BNP, FERR, ADIFF, LIPID, ANEU, GFR, MG, CBC, FE, CMP ####[place] [address] [place], [place] [address]#### B12 ####[address] [address] GFR Non- 73 ml/min/1.73sqm Normal [facility] [place] ([place]) Comment on above: Result Comment: GFR Population mean for , Non- Americans Ages 20-29 = 116 mL/min/1.73 sq.m. Ages 30-39 = 107 mL/min/1.73 sq.m. Ages 40-49 = 99 mL/min/1.73 sq.m. Ages 50-59 = 93 mL/min/1.73 sq.m. Ages 60-69 = 85 mL/min/1.73 sq.m. Ages 70+ = 75 mL/min/1.73 sq.m.Chronic Kidney Disease: Less than 60 mL/min/1.73 square metersEnd Stage Renal Disease: Less than 15 mL/min/1.73 square meters Performed By: #### P BNP, FERR, ADIFF, LIPID, ANEU, GFR, MG, CBC, FE, CMP ####[place] [address]#### B12 ####[place] [address] .NEUABSon 06-03-2023 Neutrophil, Absolute 7.3 10 3/mcL High 2.9-6.2 [facility] ([place]) Comment on above: Performed By: #### P BNP, FERR, ADIFF, LIPID, ANEU, GFR, MG, CBC, FE, CMP ####[place] [address]#### B12 ####[place] [address] B12on 06-03-2023 Cobalamin (Vitamin B12) [Mass/Vol] 323 pg/mL Normal 211-911 [facility] [place] ([place] Comment on above: Performed By: #### P BNP, FERR, ADIFF, LIPID, ANEU, GFR, MG, CBC, FE, CMP ####[place] [address]#### B12 ####[place] [address] CBCon 06-03-2023 Erythrocyte distribution width (RBC) [Ratio] 15.4 % High 11.5-14.5 [facility] [place] ([place] Comment on above: Performed By: #### P BNP, FERR, ADIFF, LIPID, ANEU, GFR, MG, CBC, FE, CMP ####[place] [address]#### B12 ####[place] [address] Hematocrit (Bld) [Volume fraction] 42.0 % Normal 42.0-52.0 [facility] [place] ([place] Comment on above: Performed By: #### P BNP, FERR, ADIFF, LIPID, ANEU, GFR, MG, CBC, FE, CMP ####[place] [address]#### B12 ####[place] [address] Hgb 14.2 G/dL Normal 14.0-18.0 [facility] [place] ([place] Comment on above: Performed By: #### P BNP, FERR, ADIFF, LIPID, ANEU, GFR, MG, CBC, FE, CMP ####[place] [address]#### B12 ####[place] [address] MCH (RBC) [Entitic mass] 31.0 pg Normal 27.0-31.2 [facility] [place] ([place] Comment on above: Performed By: #### P BNP, FERR, ADIFF, LIPID, ANEU, GFR, MG, CBC, FE, CMP ####[place] [address]#### B12 ####[place] [address] MCHC 33.9 G/dL Normal 31.8-35.4 [facility] [place] ([place] Comment on above: Performed By: #### P BNP, FERR, ADIFF, LIPID, ANEU, GFR, MG, CBC, FE, CMP ####[place] [address]#### B12 ####[place] [address] MCV (RBC) [Entitic vol] 91.7 fL Normal 80.0-94.0 [facility] [place] ([place] Comment on above: Performed By: #### P BNP, FERR, ADIFF, LIPID, ANEU, GFR, MG, CBC, FE, CMP ####[place] [address]#### B12 ####[place] [address] Platelet 274 10 3/mcL Normal 130-400 [facility] [place] ([place] Comment on above: Performed By: #### P BNP, FERR, ADIFF, LIPID, ANEU, GFR, MG, CBC, FE, CMP ####[place] [address]#### B12 ####[place] [address] Platelet mean volume (Bld) [Entitic vol] 7.7 fL Normal 7.4-10.4 [facility] [place] ([place] Comment on above: Performed By: #### P BNP, FERR, ADIFF, LIPID, ANEU, GFR, MG, CBC, FE, CMP ####[place] [address]#### B12 ####[place] [address] RBC 4.59 10 6/mcL Normal 4.04-6.13 [facility] [place] ([place] Comment on above: Performed By: #### P BNP, FERR, ADIFF, LIPID, ANEU, GFR, MG, CBC, FE, CMP ####[place] [address]#### B12 ####[place] [address] WBC 10.1 10 3/mcL Normal 4.6-10.8 [facility] [place] ([place] Comment on above: Performed By: #### P BNP, FERR, ADIFF, LIPID, ANEU, GFR, MG, CBC, FE, CMP ####[place] [address]#### B12 ####[place] [address] CMPon 06-03-2023 Albumin Level 3.7 G/dL Normal 3.4-4.8 [facility] [place] ([place] Comment on above: Performed By: #### P BNP, FERR, ADIFF, LIPID, ANEU, GFR, MG, CBC, FE, CMP ####[place] [address]#### B12 ####[place] [address] Albumin/Globulin [Mass ratio] 1.2 {ratio} Normal 1.1-2.5 [facility] [place] ([place] Comment on above: Performed By: #### P BNP, FERR, ADIFF, LIPID, ANEU, GFR, MG, CBC, FE, CMP ####[place] [address]#### B12 ####[place] [address] ALP [Catalytic activity/Vol] 94 U/L Normal 40-135 [facility] [place] ([place] Comment on above: Performed By: #### P BNP, FERR, ADIFF, LIPID, ANEU, GFR, MG, CBC, FE, CMP ####[place] [address]#### B12 ####[place] [address] ALT [Catalytic activity/Vol] 17 U/L Normal 16-63 [facility] [place] ([place] Comment on above: Performed By: #### P BNP, FERR, ADIFF, LIPID, ANEU, GFR, MG, CBC, FE, CMP ####[place] [address]#### B12 ####[place] [address] AST [Catalytic activity/Vol] 8 U/L Low 10-40 [facility] [place] ([place] Comment on above: Performed By: #### P BNP, FERR, ADIFF, LIPID, ANEU, GFR, MG, CBC, FE, CMP ####[place] [address]#### B12 ####[place] [address] Bili Total 0.6 mg/dL Normal 0.2-1.0 [facility] [place] ([place] Comment on above: Result Comment: Use of this assay is not recommended for patients undergoing treatment with eltrombopag due to the potential for falsely elevated results. Performed By: #### P BNP, FERR, ADIFF, LIPID, ANEU, GFR, MG, CBC, FE, CMP ####[place] [address]#### B12 ####[address] [address] BUN/Creatinine Ratio 11 ratio Normal 7-27 [facility] ([place]) Comment on above: Performed By: #### P BNP, FERR, ADIFF, LIPID, ANEU, GFR, MG, CBC, FE, CMP ####[place] [address]#### B12 ####[place] [address] Calcium [Mass/Vol] 9.4 mg/dL Normal 8.4-10.2 [facility] ([place]) Comment on above: Performed By: #### P BNP, FERR, ADIFF, LIPID, ANEU, GFR, MG, CBC, FE, CMP ####[place] [address]#### B12 ####[place] [address] Chloride [Moles/Vol] 101 mmol/L Normal 98-107 [facility] ([place]) Comment on above: Performed By: #### P BNP, FERR, ADIFF, LIPID, ANEU, GFR, MG, CBC, FE, CMP ####[place] [address]#### B12 ####[address] [address] CO2 [Moles/Vol] 31 mmol/L Normal 23-31 [facility] [place] ([place] Comment on above: Performed By: #### P BNP, FERR, ADIFF, LIPID, ANEU, GFR, MG, CBC, FE, CMP ####[place] [address]#### B12 ####[place] [address] Creatinine [Mass/Vol] 0.98 mg/dL Normal 0.70-1.30 [facility] ([place]) Comment on above: Performed By: #### P BNP, FERR, ADIFF, LIPID, ANEU, GFR, MG, CBC, FE, CMP ####[place] [address]#### B12 ####[place] [address] Electrolyte Balance 13.0 mEq/L Normal 4.0-15.0 [facility] ([place]) Comment on above: Performed By: #### P BNP, FERR, ADIFF, LIPID, ANEU, GFR, MG, CBC, FE, CMP ####[place] [address]#### B12 ####[place] [address] Globulin 3.2 G/dL Normal [facility] [place] ([place] Comment on above: Performed By: #### P BNP, FERR, ADIFF, LIPID, ANEU, GFR, MG, CBC, FE, CMP ####[place] [address]#### B12 ####[place] [address] Glucose [Mass/Vol] 98 mg/dL Normal 83-110 [facility] ([place] Comment on above: Performed By: #### P BNP, FERR, ADIFF, LIPID, ANEU, GFR, MG, CBC, FE, CMP ####[place] [address]#### B12 ####[place] [address] Potassium [Moles/Vol] 5.5 mmol/L High 3.5-5.1 [facility] ([place] Comment on above: Performed By: #### P BNP, FERR, ADIFF, LIPID, ANEU, GFR, MG, CBC, FE, CMP ####[place] [address]#### B12 ####[address] [address] Sodium [Moles/Vol] 145 mmol/L Normal 136-145 [facility] ([place]) Comment on above: Performed By: #### P BNP, FERR, ADIFF, LIPID, ANEU, GFR, MG, CBC, FE, CMP ####[place] [address]#### B12 ####[place] [address] Total Protein 6.9 G/dL Normal 6.4-8.2 [facility] [place] ([place] Comment on above: Performed By: #### P BNP, FERR, ADIFF, LIPID, ANEU, GFR, MG, CBC, FE, CMP ####[place] [address]#### B12 ####[place] [address] Urea nitrogen [Mass/Vol] 11 mg/dL Normal 7-18 [facility] [place] ([place] Comment on above: Performed By: #### P BNP, FERR, ADIFF, LIPID, ANEU, GFR, MG, CBC, FE, CMP ####[place] [address]#### B12 ####[place] [address] FEon 06-03-2023 Iron [Mass/Vol] 65 ug/dL Normal 65-175 [facility] [place] ([place] Comment on above: Performed By: #### P BNP, FERR, ADIFF, LIPID, ANEU, GFR, MG, CBC, FE, CMP ####[place] [address]#### B12 ####[place] [address] Nette 06-03-2023 Ferritin [Mass/Vol] 107.0 ng/mL Normal 26.0-388.0 [facility] ([place]) Comment on above: Performed By: #### P BNP, FERR, ADIFF, LIPID, ANEU, GFR, MG, CBC, FE, CMP ####[place] [address]#### B12 ####[place] [address] [place] [address] LABORATORYOrdered By: SYSTEM SYSTEM on 06-03-2023 Albumin BCP dye [Mass/Vol] 3.7 G/dL Normal 3.4 - 4.8 G/dL AO ADM SS Albumin/Globulin [Mass ratio] 1.2 {ratio} Normal 1.1 - 2.5 ratio AO ADM SS ALP [Catalytic activity/Vol] 94 U/L Normal 40 - 135 U/L AO ADM SS ALT With P-5'-P [Catalytic activity/Vol] 17 U/L Normal 16 - 63 U/L AO ADM SS AST With P-5'-P [Catalytic activity/Vol] 8 U/L Low 10 - 40 U/L AO ADM SS Basophil, Absolute 0.1 103/mcL Normal 0.0 - 0.2 10^3/mcL AO Workflow SS Basophils/100 WBC (Bld) 0.9 % Normal 0.0 - 2.5 % AO Workflow SS Bilirubin [Mass/Vol] 0.6 mg/dL Normal 0.2 - 1 .0 mg/dL AO ADM SS Comment on above: Interpretive Data: U se of this assay is not recommended for patients undergoing treatment with eltrombopag due to the potential for falsely elevated results. Calcium [Mass/Vol] 9.4 mg/dL Normal 8.4 - 10. 2 mg/dL AO ADM SS Chloride [Moles/Vol] 101 mmol/L Normal 98 - 10 7 mmol/L AO ADM SS CO2 [Moles/Vol] 31 mmol/L Normal 23 - 31 mmol/L AO ADM SS Cobalamin (Vitamin B12) [Mass/Vol] 323 pg/mL Normal 211 - 911 pg/mL AH ADM SS Creatinine [Mass/Vol] 0.98 mg/dL Normal 0.70 - 1.30 mg/dL AO ADM SS Electrolyte Balance 13.0 mEq/L Normal 4.0 - 15 .0 mEq/L AO ADM SS Eosinophil, Absolute 0.5 103/mcL High 0.0 - 0 .4 10^3/mcL AO Workflow SS Eosinophils/100 WBC (Bld) 4.7 % Normal 0.0 - 7.0 % AO Workflow SS Erythrocyte distribution width (RBC) [Ratio] 15.4 % High 11.5 - 14.5 % AO Workflow SS Ferritin [Mass/Vol] 107.0 ng/mL Normal 26.0 - 388.0 ng/mL AO ADM SS GFR/1.73 sq M.predicted among blacks MDRD (S/P/Bld) [Vol rate/Area] 88 ml/min/1.73sqm Invalid Interpretation Code AO Chemistry S Comment on above: Interpretive Data: GFR Population mean for , Non- Americans Ages 20-29 = 116 mL/min/1.73 sq.m. Ages 30-39 = 107 mL/min/1.73 sq.m. Ages 40-49 = 99 mL/min/1.73 sq.m. Ages 50-59 = 93 mL/min/1.73 sq.m. Ages 60-69 = 85 mL/min/1.73 sq.m. Ages 70+ = 75 mL/min/1.73 sq.m. Chronic Kidney Disease: Less than 60 mL/min/1.73 square meters End Stage Renal Disease: Less than 15 mL/min/1.73 square meters GFR/1.73 sq M.predicted among non-blacks MDRD (S/P/Bld) [Vol rate/Area] 73 ml/min/1.73sqm Invalid Interpretation Code AO Chemistry S Comment on above: Interpretive Data: GFR Population mean for , Non- Americans Ages 20-29 = 116 mL/min/1.73 sq.m. Ages 30-39 = 107 mL/min/1.73 sq.m. Ages 40-49 = 99 mL/min/1.73 sq.m. Ages 50-59 = 93 mL/min/1.73 sq.m. Ages 60-69 = 85 mL/min/1.73 sq.m. Ages 70+ = 75 mL/min/1.73 sq.m. Chronic Kidney Disease: Less than 60 mL/min/1.73 square meters End Stage Renal Disease: Less than 15 mL/min/1.73 square meters Globulin 3.2 G/dL Invalid Interpretation Code AO ADM SS Glucose [Mass/Vol] 98 mg/dL Normal 83 - 110 mg/dL AO ADM SS Hematocrit (Bld) [Volume fraction] 42.0 % Normal 42.0 - 52.0 % AO Workflow SS Hemoglobin (Bld) [Mass/Vol] 14.2 G/dL Normal 14.0 - 18.0 G/dL AO Workflow SS Iron [Mass/Vol] 65 ug/dL Normal 65 - 175 mcg/dL AO ADM SS Lymphocyte, Absolute 1.3 103/mcL Normal 0.8 - 3 .9 10^3/mcL AO Workflow SS Lymphocytes/100 WBC (Bld) 13.1 % Normal 10.0 - 50.0 % AO Workflow SS Magnesium [Mass/Vol] 2.2 mg/dL Normal 1.8 - 2 .4 mg/dL AO ADM SS MCH (RBC) [Entitic mass] 31.0 pg Normal 27.0 - 31.2 pg AO Workflow SS MCHC 33.9 G/dL Normal 31.8 - 35.4 G/dL AO Workflow SS MCV (RBC) [Entitic vol] 91.7 fL Normal 80.0 - 94.0 fL AO Workflow SS Monocyte, Absolute 0.9 103/mcL Normal 0.2 - 1.0 10^3/mcL AO Workflow SS Monocytes/100 WBC (Bld) 9.0 % Normal 1.7 - 13.0 % AO Workflow SS Natriuretic peptide.B prohormone N-Terminal [Mass/Vol] 177 pg/mL Normal 0 - 450 pg/mL AO ADM SS Comment on above: Interpretive Data: N T-proBNP results of less than 300 pg/mL effectively rules out acute congestive heart failure with 99% negative predictive value. Neutrophil, Absolute 7.3 103/mcL High 2.9 - 6 .2 10^3/mcL AO Workflow SS Neutrophils/100 WBC (Bld) 72.3 % Normal 37.0 - 80.0 % AO Workflow SS Platelet mean volume (Bld) [Entitic vol] 7.7 fL Normal 7.4 - 10.4 fL AO Workflow SS Platelets (Bld) [#/Vol] 274 103/mcL Normal 130 - 400 10^3/mcL AO Workflow SS Potassium [Moles/Vol] 5.5 mmol/L High 3.5 - 5.1 mmol/L AO ADM SS Protein [Mass/Vol] 6.9 G/dL Normal 6.4 - 8.2 G/dL AO ADM SS RBC (Bld) [#/Vol] 4.59 106/mcL Normal 4.04 - 6.13 10^6/mcL AO Workflow SS Sodium [Moles/Vol] 145 mmol/L Normal 136 - 145 mmol/L AO ADM SS Urea nitrogen [Mass/Vol] 11 mg/dL Normal 7 - 18 mg/dL AO ADM SS Urea nitrogen/Creatinine [Mass ratio] 11 ratio Normal 7 - 27 ratio AO ADM SS WBC (Bld) [#/Vol] 10.1 103/mcL Normal 4.6 - 10.8 10^3/mcL AO Workflow SS LABORATORYOrdered By: Daniela Hart on 06-03-2023 Cholesterol [Mass/Vol] 176 mg/dL Normal 0 - 2 00 mg/dL AO ADM SS Comment on above: Interpretive Data: C holesterol Reference Interval: Less than 200 Desirable 200-239 Borderline high risk 240 and above High risk Cholesterol in HDL [Mass/Vol] 48 mg/dL Normal 40 - 60 mg/dL AO ADM SS Cholesterol in LDL [Mass/Vol] 102 mg/dL Normal 0 - 130 mg/dL AO ADM SS Triglyceride [Mass/Vol] 128 mg/dL Normal 0 - 150 mg/dL AO ADM SS Comment on above: Interpretive Data: T riglyceride Reference Interval: Less than 150 Normal 150-199 Borderline high risk 200-499 High risk 500 or higher Very high risk LIPIDon 06-03-2023 Cholesterol [Mass/Vol] 176 mg/dL Normal 0-200 [facility] ([place]) Comment on above: Result Comment: Chol esterol Reference Interval:Less than 200 [id number] Borderline high [id number] and above High risk Performed By: #### P BNP, FERR, ADIFF, LIPID, ANEU, GFR, MG, CBC, FE, CMP ####[place] [address]#### B12 ####[address] [address] Cholesterol in HDL [Mass/Vol] 48 mg/dL Normal 40-60 [facility] ([place]) Comment on above: Performed By: #### P BNP, FERR, ADIFF, LIPID, ANEU, GFR, MG, CBC, FE, CMP ####[place] [address]#### B12 ####[address] [address] Cholesterol in LDL [Mass/Vol] 102 mg/dL Normal 0-130 [facility] ([place]) Comment on above: Performed By: #### P BNP, FERR, ADIFF, LIPID, ANEU, GFR, MG, CBC, FE, CMP ####[place] [address]#### B12 ####[place] [address] Triglyceride [Mass/Vol] 128 mg/dL Normal 0-150 [facility] ([place]) Comment on above: Result Comment: Trig lyceride Reference Interval:Less than 150 [id number] Borderline high [id number] High [id number] or higher Very high risk Performed By: #### P BNP, FERR, ADIFF, LIPID, ANEU, GFR, MG, CBC, FE, CMP ####[place] [address]#### B12 ####[place] [address] MGon 06-03-2023 Magnesium [Mass/Vol] 2.2 mg/dL Normal 1.8-2.4 [facility] ([place]) Comment on above: Performed By: #### P BNP, FERR, ADIFF, LIPID, ANEU, GFR, MG, CBC, FE, CMP ####[place] [address]#### B12 ####[place] [address] PBNPon 06-03-2023 Natriuretic peptide B (Bld) [Mass/Vol] 177 pg/mL Normal 0-450 [facility] ([place]) Comment on above: Result Comment: NT-p roBNP results of less than 300 pg/mL effectivelyrules out acute congestive heart failure with 99% negative predictive value. Performed By: #### P BNP, FERR, ADIFF, LIPID, ANEU, GFR, MG, CBC, FE, CMP ####[place] [address]#### B12 ####[place] [address] Basophil percentageOrdered B y: Parrish Shah on 04-13-2023 Hemoglobin (Bld) [Mass/Vol] 10.4 g/dL 13.0-16.5 [facility] Hematocrit Auto (Bld) [Volum e fraction]Ordered By: Parrish Shah on 04-13-2023 Hematocrit (Bld) [Volume fraction] 33.3 % 40-54 [facility] Absolute lymphocyte countOrd ered By: Parrish Shah on 04-09-2023 Lymphocytes Auto (Unsp spec) [#/Vol] 0.87 10*3/uL 0.83-4.51 [facility] Automated lymphocyte count a s percentage of total leukocytesOrdered By: Parrish Shah on 04-09-2023 Lymphocytes/100 WBC Auto (Unsp spec) 11.9 % 19-41 [facility] Basophil percentageOrdered B y: Parrish Shah on 04-09-2023 Basophils/100 WBC (Bld) 1.4 % 0-1 [facility] Chloride [Moles/Vol] 103 mmol/L 98-107 [facility] Eosinophils/100 WBC (Bld) 1.9 % 0-5 [facility] Glucose [Mass/Vol] 98 mg/dL 74-106 [facility] Monocytes/100 WBC (Bld) 14.4 % 0-10 [facility] Neutrophils (Bld) [#/Vol] 4.9 10*3/uL 2.0-7.7 [facility] Neutrophils/100 WBC (Bld) 66.3 % 47-70 [facility] Potassium [Moles/Vol] 3.9 mmol/L 3.5-5.1 [facility] Sodium [Moles/Vol] 136 mmol/L 136-145 [facility] WBC (Bld) [#/Vol] 7.3 10*3/uL 4.4-11.0 [facility] Determination of erythrocyte mean corpuscular volume (MCV)Ordered By: Parrish Shah on 04-09-2023 MCV (RBC) [Entitic vol] 98.1 fL 80-94 [facility] Erythrocyte distribution wid th ratioOrdered By: Parrish Shah on 04-09-2023 Erythrocyte distribution width (RBC) [Ratio] 14.9 % 11.6-14.6 [facility] Erythrocyte distribution wid th standard deviationOrdered By: Parrish Shah on 04-09-2023 Erythrocyte distribution width (RBC) [Entitic vol] 53.7 fL 35.1-43.9 [facility] Immature granulocytes/100 WB C Auto (Bld)Ordered By: Parrish Shah on 04-09-2023 Immature granulocytes/100 WBC (Bld) 4.100 % 0.0-0.9 [facility] Comment on above: IG% - Immature Granu locytes (promyelocytes, myelocytes and metamyelocytes) > 1% indicates that a LEFT SHIFT is Present. Laboratory - Chemistry and C hemistry - challengeOrdered By: Parrish Shah on 04-09-2023 CO2 [Moles/Vol] 30.0 mmol/L 21.0-32.0 [facility] Urea nitrogen/Creatinine [Mass ratio] 14.2 mg/mg 10-20 [facility] Laboratory - Hematology and Cell countsOrdered By: Parrish Shah on 04-09-2023 MCH (RBC) [Entitic mass] 29.9 pg 27.0-32.0 [facility] MCHC (RBC) [Mass/Vol] 30.4 g/dL 32-36 [facility] Nucleated RBC/100 WBC (Bld) [Ratio] 0 % 0-5 [facility] Platelets (Bld) [#/Vol] 373 10*3/uL 150-450 [facility] No Panel InformationOrdered By: Parrish Shah on 04-09-2023 Estimated Creatinine Clearance Calc 63.33 ml/min [facility] Estimated GFR (MDRD) Amer 111 mL/min >60 [facility] Comment on above: GFR Calc Estimated GFR (MDRD) Non-Af Amer 92 mL/min >60 [facility] Comment on above: Non- GFR Calc Platelet mean volume Vamsi-Ec ker (Bld) [Entitic vol]Ordered By: Parrish Shah on 04-09-2023 Platelet mean volume (Bld) [Entitic vol] 9.2 fL 6.2-12.0 [facility] RBC Auto (Bld) [#/Vol]Ordere d By: Parrish Shah on 04-09-2023 RBC (Bld) [#/Vol] 3.18 10*6/uL 4.6-6.2 [facility] Serum or plasma calcium misbah urement (mass/volume)Ordered By: Parrish Shah on 04-09-2023 Calcium [Mass/Vol] 8.5 mg/dL 8.5-10.1 [facility] Serum or plasma creatinine m easurement (mass/volume)Ordered By: Parrish Shah on 04-09-2023 Creatinine [Mass/Vol] 0.84 mg/dL 0.70-1.30 [facility] Comment on above: The validity of the calculated GFR & GFRAA in patients over 70 years has not been determined. Clinical correlation is essential. Serum or plasma urea nitroge n measurement (mass/volume)Ordered By: Parrish Shah on 04-09-2023 Urea nitrogen [Mass/Vol] 12 mg/dL 7-18 [facility] Thin prep Papanicolaou smear with manual screeningOrdered By: Parrish Shah on 04-09-2023 Thin prep Papanicolaou smear with manual screening 3 5-15 [facility] Basophil percentageOrdered B y: Parrish Shah on 04-07-2023 Basophil percentage 0 SEEN /hpf 0-5 [facility] Bilirubin [Mass/Vol] 1.10 mg/dL 0.20-1.00 [facility] Comment on above: For patients on eltr ombopag therapy, use of Dimension [place] TBIL is not recommended. Protein [Mass/Vol] 7.0 g/dL 6.4-8.2 [facility] Bilirubin Test strip Ql (U)O rdered By: Parrish Shah on 04-07-2023 Bilirubin Ql (U) Negative Negative [facility] Culture, urineOrdered By: Emeterio Shah on 04-07-2023 Bacteria identified Cx Nom (U) Culture exhibits no growth. [facility] Bacteria identified Cx Nom (U) Culture exhibits no growth. [facility] Ketones Test strip Ql (U)Ord ered By: Parrish Shah on 04-07-2023 Ketones Ql (U) Negative Negative [facility] Laboratory - Chemistry and C hemistry - challengeOrdered By: Parrish Shah on 04-07-2023 Albumin/Globulin [Mass ratio] 0.9 {ratio} 0.9-2.4 [facility] ALP [Catalytic activity/Vol] 87 U/L 45-117 [facility] ALT [Catalytic activity/Vol] 16 U/L 16-61 [facility] Globulin (S) [Mass/Vol] 3.7 g/dL 2.2-4.2 [facility] Mucus LM Ql (Urine sed)Order ed By: Parrish Shah on 04-07-2023 Mucus Ql (Urine sed) 0 SEEN /hpf [facility] Nitrite Test strip Ql (U)Ord ered By: Parrish Shah on 04-07-2023 Nitrite Ql (U) Negative Negative [facility] No Panel InformationOrdered By: Parrish Shah on 04-07-2023 Urine RBC 0 SEEN /hpf 0-5 [facility] Protein Test strip Ql (U)Ord ered By: Parrish Shah on 04-07-2023 Protein Ql (U) Negative Negative [facility] Squamous epithelial cells de tection in urine sediment by light microscopyOrdered By: Parrish Shah on 04-07-2023 Epithelial cells.squamous LM Ql (Urine sed) 0 SEEN /hpf 0-5 [facility] Thin prep Papanicolaou smear with manual screeningOrdered By: Parrish Shah on 04-07-2023 Thin prep Papanicolaou smear with manual screening 3.3 g/dL 3.2-5.0 [facility] Thin prep Papanicolaou smear with manual screening 10 U/L 15-37 [facility] Urine blood detectionOrdered By: Parrish Shah on 04-07-2023 RBC Ql (U) Negative Negative [facility] Urine clarityOrdered By: Parrish Shah on 04-07-2023 Clarity (U) Clear Clear [facility] Urine color determinationOrd ered By: Parrish Shah on 04-07-2023 Color (U) Yellow Yellow [facility] Urine glucose detectionOrder ed By: Parrish Shah on 04-07-2023 Glucose Ql (U) 1000 mg/dl Normal [facility] Urine leukocyte esterase det ection by dipstickOrdered By: Parrish Shah on 04-07-2023 Leukocyte esterase Test strip Ql (U) Negative Negative [facility] Urine pHOrdered By: Parrish Shah on 04-07-2023 pH (U) 5.0 [pH] 5.0 - 8.0 [facility] Urine sediment bacteria coun t by microscopy (number/high power field)Ordered By: Parrish Shah on 04-07-2023 Bacteria LM.HPF (Urine sed) [#/Area] 0 /[HPF] None Seen [facility] Urine specific gravity measu rementOrdered By: Parrish Shah on 04-07-2023 Specific gravity (U) [Rel density] 1.015 1.002-1.03 0 [facility] Urine urobilinogen measureme ntOrdered By: Parrish Shah on 04-07-2023 Urobilinogen Ql (U) 1 mg/dl Normal [facility] Basophil percentageOrdered B y: Parrish Shah on 04-03-2023 Cholesterol [Mass/Vol] 147 mg/dL <200 [facility] Comment on above: <200 mg/dL Desirable 200-240 mg/dL Borderline >240 mg/dL High Risk Triglyceride [Mass/Vol] 140 mg/dL <199 [facility] Comment on above: The drugs N-Acetylcy steine and Metamizole may falsely depress this assay.Serum Triglycerides Reference Interval Normal <150 mg/dL Borderline high 150 - 199 mg/dL High 200 - 499 mg/dL Very High > or = 500 mg/dL High density lipoprotein (HD L) measurementOrdered By: Parrish Shah on 04-03-2023 Cholesterol in HDL (Body fld) [Mass/Vol] 30 mg/dL >40 [facility] Comment on above: The drugs N-Acetylcy steine and Metamizole may falsely depress this assay. Reference Range HDL <40 mg/dL Low HDL Cholesterol HDL >or= 60 mg/dL High HDL Cholesterol Low density lipoprotein (LDL ) cholesterol measurementOrdered By: Parrish Shah on 04-03-2023 Cholesterol in LDL (Body fld) [Moles/Vol] 89 mg/dL 0-130 [facility] Very low density lipoprotein (VLDL) cholesterol measurementOrdered By: Parrish Shah on 04-03-2023 Cholesterol in VLDL Calc [Moles/Vol] 28 mg/dL 5-40 [facility] Direct bilirubinOrdered By: Parrish Shah on 04-02-2023 Bilirubin.direct [Mass/Vol] 0.44 mg/dL 0.00-0.30 [facility] Absolute lymphocyte countOrd ered By: Liban Wilhelm on 03-31-2023 Lymphocytes Auto (Unsp spec) [#/Vol] 0.81 10*3/uL 0.83-4.51 [facility] Automated lymphocyte count a s percentage of total leukocytesOrdered By: Liban Wilhelm on 03-31-2023 Lymphocytes/100 WBC Auto (Unsp spec) 7.4 % 19-41 [facility] Basophil percentageOrdered B y: Liban Wilhelm on 03-31-2023 Basophils/100 WBC (Bld) 0.8 % 0-1 [facility] Eosinophils/100 WBC (Bld) 2.3 % 0-5 [facility] Hemoglobin (Bld) [Mass/Vol] 9.1 g/dL 13.0-16.5 [facility] Monocytes/100 WBC (Bld) 8.9 % 0-10 [facility] Neutrophils (Bld) [#/Vol] 8.6 10*3/uL 2.0-7.7 [facility] Neutrophils/100 WBC (Bld) 78.7 % 47-70 [facility] WBC (Bld) [#/Vol] 10.9 10*3/uL 4.4-11.0 [facility] Determination of erythrocyte mean corpuscular volume (MCV)Ordered By: Liban Wilhelm on 03-31-2023 MCV (RBC) [Entitic vol] 96.7 fL 80-94 [facility] Erythrocyte distribution wid th ratioOrdered By: Liban Wilhelm on 03-31-2023 Erythrocyte distribution width (RBC) [Ratio] 14.6 % 11.6-14.6 [facility] Hematocrit Auto (Bld) [Volum e fraction]Ordered By: Liban Wilhelm on 03-31-2023 Hematocrit (Bld) [Volume fraction] 29.0 % 40-54 [facility] Immature granulocytes/100 WB C Auto (Bld)Ordered By: Liban Wilhelm on 03-31-2023 Immature granulocytes/100 WBC (Bld) 1.900 % 0.0-0.9 [facility] Comment on above: IG% - Immature Granu locytes (promyelocytes, myelocytes and metamyelocytes) > 1% indicates that a LEFT SHIFT is Present. Laboratory - Hematology and Cell countsOrdered By: Liban Wilhelm on 03-31-2023 Erythrocyte distribution width (RBC) [Entitic vol] 51.2 fL 35.1-43.9 [facility] MCH (RBC) [Entitic mass] 30.3 pg 27.0-32.0 [facility] Nucleated RBC/100 WBC (Bld) [Ratio] 0 % 0-5 [facility] Platelets (Bld) [#/Vol] 320 10*3/uL 150-450 [facility] MCHC Auto (RBC) [Mass/Vol]Or dered By: Liban Wilhelm on 03-31-2023 MCHC (RBC) [Mass/Vol] 31.4 g/dL 32-36 [facility] Platelet mean volume Vamsi-Ec ker (Bld) [Entitic vol]Ordered By: Liban Wilhelm on 03-31-2023 Platelet mean volume (Bld) [Entitic vol] 9.2 fL 6.2-12.0 [facility] RBC Auto (Bld) [#/Vol]Ordere d By: Liban Wilhelm on 03-31-2023 RBC (Bld) [#/Vol] 3.00 10*6/uL 4.6-6.2 [facility] Basophil percentageOrdered B y: Marilee Yeager on 03-30-2023 Bilirubin [Mass/Vol] 2.30 mg/dL 0.20-1.00 [facility] Comment on above: For patients on eltr ombopag therapy, use of Dimension [place] TBIL is not recommended. Chloride [Moles/Vol] 101 mmol/L 98-107 [facility] Glucose [Mass/Vol] 112 mg/dL 74-106 [facility] Comment on above: Fasting Glucose resu lt from 100 to 125 mg/dL suggests IMPAIRED HOMEOSTASIS per A.D.A. criteria. Potassium [Moles/Vol] 3.5 mmol/L 3.5-5.1 [facility] Protein [Mass/Vol] 6.1 g/dL 6.4-8.2 [facility] Sodium [Moles/Vol] 138 mmol/L 136-145 [facility] Laboratory - Chemistry and C hemistry - challengeOrdered By: Marilee Yeager on 03-30-2023 ALP [Catalytic activity/Vol] 68 U/L 45-117 [facility] ALT [Catalytic activity/Vol] 13 U/L 16-61 [facility] CO2 [Moles/Vol] 29.0 mmol/L 21.0-32.0 [facility] Globulin (S) [Mass/Vol] 3.4 g/dL 2.2-4.2 [facility] Urea nitrogen/Creatinine [Mass ratio] 17.1 mg/mg 10-20 [facility] No Panel InformationOrdered By: Marilee Yeager on 03-30-2023 Estimated Creatinine Clearance Calc 60.45 ml/min [facility] Estimated GFR (MDRD) Amer 107 mL/min >60 [facility] Comment on above: GFR Calc Estimated GFR (MDRD) Non-Af Amer 88 mL/min >60 [facility] Comment on above: Non- GFR Calc Serum or plasma albumin misbah urement (mass/volume)Ordered By: Marilee Yeager on 03-30-2023 Albumin [Mass/Vol] 2.7 g/dL 3.2-5.0 [facility] Serum or plasma albumin/glob ulin mass ratioOrdered By: Marilee Yeager on 03-30-2023 Albumin/Globulin [Mass ratio] 0.8 {ratio} 0.9-2.4 [facility] Serum or plasma calcium misbah urement (mass/volume)Ordered By: Marilee Yeager on 03-30-2023 Calcium [Mass/Vol] 8.6 mg/dL 8.5-10.1 [facility] Serum or plasma creatinine m easurement (mass/volume)Ordered By: Marilee Yeager on 03-30-2023 Creatinine [Mass/Vol] 0.88 mg/dL 0.70-1.30 [facility] Comment on above: The validity of the calculated GFR & GFRAA in patients over 70 years has not been determined. Clinical correlation is essential. Serum or plasma urea nitroge n measurement (mass/volume)Ordered By: Marilee Yeager on 03-30-2023 Urea nitrogen [Mass/Vol] 15 mg/dL 7-18 [facility] Stool enteric pathogen panel by probe and target amplification methodOrdered By: Marilee Yeager 03-30-2023 Gastrointestinal pathogens panel JAYDA+probe (Stl) [facility] Gastrointestinal pathogens panel JAYDA+probe (Stl) [facility] Thin prep Papanicolaou smear with manual screeningOrdered By: Marilee Yeager 03-30-2023 Thin prep Papanicolaou smear with manual screening 14 U/L 15-37 [facility] Thin prep Papanicolaou smear with manual screening 8 5-15 [facility] Absolute lymphocyte countOrd ered By: Hanh Rico on 03-29-2023 Lymphocytes Auto (Unsp spec) [#/Vol] 0.92 10*3/uL 0.83-4.51 [facility] Basophil percentageOrdered B y: Hanh Rico on 03-29-2023 Basophil percentage 0 SEEN /hpf 0-5 [facility] Basophils/100 WBC (Bld) 0.5 % 0-1 [facility] Bilirubin [Mass/Vol] 2.20 mg/dL 0.20-1.00 [facility] Comment on above: For patients on eltr ombopag therapy, use of Dimension [place] TBIL is not recommended. Chloride [Moles/Vol] 99 mmol/L 98-107 [facility] Eosinophils/100 WBC (Bld) 0.7 % 0-5 [facility] Glucose [Mass/Vol] 116 mg/dL 74-106 [facility] Comment on above: Fasting Glucose resu lt from 100 to 125 mg/dL suggests IMPAIRED HOMEOSTASIS per A.D.A. criteria. Lactate [Moles/Vol] 1.1 mmol/L 0.4-2.0 [facility] Neutrophils (Bld) [#/Vol] 10.1 10*3/uL 2.0-7.7 [facility] Neutrophils/100 WBC (Bld) 78.0 % 47-70 [facility] Potassium [Moles/Vol] 3.6 mmol/L 3.5-5.1 [facility] Protein [Mass/Vol] 6.4 g/dL 6.4-8.2 [facility] Sodium [Moles/Vol] 138 mmol/L 136-145 [facility] WBC (Bld) [#/Vol] 12.9 10*3/uL 4.4-11.0 [facility] Bilirubin Test strip Ql (U)O rdered By: Hanh Rico on 03-29-2023 Bilirubin Ql (U) Negative Negative [facility] Blood erythrocytes count (nu mber/volume)Ordered By: Hanh Rico on 03-29-2023 RBC (Bld) [#/Vol] 3.01 10*6/uL 4.6-6.2 [facility] Blood hemoglobin measurement (mass/volume)Ordered By: Hanh Rico on 03-29-2023 Hemoglobin (Bld) [Mass/Vol] 9.8 g/dL 13.0-16.5 [facility] Blood lymphocytes/100 leukoc ytesOrdered By: Hanh Rico on 03-29-2023 Lymphocytes/100 WBC (Bld) 7.1 % 19-41 [facility] Blood monocytes/100 leukocyt esOrdered By: Hanh Rico on 03-29-2023 Monocytes/100 WBC (Bld) 12.3 % 0-10 [facility] Blood platelet mean volumeOr dered By: Hanh Rico on 03-29-2023 Platelet mean volume (Bld) [Entitic vol] 9.3 fL 6.2-12.0 [facility] Determination of erythrocyte mean corpuscular volume (MCV)Ordered By: Hanh Rico on 03-29-2023 MCV (RBC) [Entitic vol] 97.3 fL 80-94 [facility] Direct bilirubinOrdered By: Hanh Rico on 03-29-2023 Bilirubin.direct [Mass/Vol] 0.58 mg/dL 0.00-0.30 [facility] Gram stain for investigation of transfusion reactionOrdered By: Marilee Yeager on 03-29-2023 Microscopic observation Gram stain Nom (Unsp spec) [facility] Microscopic observation Gram stain Nom (Unsp spec) [facility] Hematocrit Auto (Bld) [Volum e fraction]Ordered By: Hanh Rico on 03-29-2023 Hematocrit (Bld) [Volume fraction] 29.3 % 40-54 [facility] INR in Blood by Coagulation assayOrdered By: Hanh Rico on 03-29-2023 INR Coag (Bld) [Relative time] 1.3 {INR} [facility] Ketones Test strip Ql (U)Ord ered By: Hanh Rico on 03-29-2023 Ketones Ql (U) 15 mg/dl Negative [facility] Laboratory - Chemistry and C hemistry - challengeOrdered By: Marilee Yeager on 03-29-2023 Natriuretic peptide B (Bld) [Mass/Vol] 62.2 pg/mL 0-100 [facility] Laboratory - Chemistry and C hemistry - challengeOrdered By: Hanh Rico on 03-29-2023 ALP [Catalytic activity/Vol] 69 U/L 45-117 [facility] ALT [Catalytic activity/Vol] 12 U/L 16-61 [facility] CO2 [Moles/Vol] 32.0 mmol/L 21.0-32.0 [facility] Globulin (S) [Mass/Vol] 3.5 g/dL 2.2-4.2 [facility] Lipase [Catalytic activity/Vol] 11 U/L 13-75 [facility] Comment on above: Please note:LIPASE r evised reference range effective 22. New Lipase methodology. Expected to produce lower values than the previous assay method. NEW Reference Range: 13 - 75 U/L Magnesium [Mass/Vol] 2.0 mg/dL 1.6-2.6 [facility] Natriuretic peptide B (Bld) [Mass/Vol] 55.4 pg/mL 0-100 [facility] Urea nitrogen/Creatinine [Mass ratio] 16.2 mg/mg 10-20 [facility] Laboratory - CoagulationOrde red By: Hanh Rico on 03-29-2023 aPTT Coag (Bld) [Time] 33.7 s 24.1-36.2 [facility] PT Coag (PPP) [Time] 16.1 s 11.7-14.9 [facility] Laboratory - Hematology and Cell countsOrdered By: Hanh Rico on 03-29-2023 Erythrocyte distribution width (RBC) [Entitic vol] 52.9 fL 35.1-43.9 [facility] Erythrocyte distribution width (RBC) [Ratio] 15.0 % 11.6-14.6 [facility] Immature granulocytes/100 WBC (Bld) 1.400 % 0.0-0.9 [facility] Comment on above: IG% - Immature Granu locytes (promyelocytes, myelocytes and metamyelocytes) > 1% indicates that a LEFT SHIFT is Present. MCH (RBC) [Entitic mass] 32.6 pg 27.0-32.0 [facility] Nucleated RBC/100 WBC (Bld) [Ratio] 0 % 0-5 [facility] Laboratory - Microbiology an d Antimicrobial susceptibilityOrdered By: Hanh Rico on 03-29-2023 SARS-CoV-2 (COVID-19) RNA JAYDA+probe Ql (Unsp spec) [facility] MCHC Auto (RBC) [Mass/Vol]Or dered By: Hanh Rico on 03-29-2023 MCHC (RBC) [Mass/Vol] 33.4 g/dL 32-36 [facility] Microbial respiratory cultur eOrdered By: Marilee Yeager on 03-29-2023 Bacteria identified Respiratory culture Nom (Unsp spec) or Staphylococcus aureus isolated. [facility] Bacteria identified Respiratory culture Nom (Unsp spec) or Staphylococcus aureus isolated. [facility] Mucus LM Ql (Urine sed)Order ed By: Hanh Rico on 03-29-2023 Mucus Ql (Urine sed) 0 SEEN /hpf [facility] Nitrite Test strip Ql (U)Ord ered By: Hanh Rico on 03-29-2023 Nitrite Ql (U) Negative Negative [facility] No Panel InformationOrdered By: Marilee Yeager on 03-29-2023 Troponin I High Sensitivity 283 pg/mL 3.0-78.0 [facility] Comment on above: Critical Result(s) C alled at: 21:07:45 03/29/2023 by: Norma Ward. Results read back by same. Please Note: New Test Units and Gender Specific Reference Ranges. For more information see Policy Stat Procedure [place] High Sensitivity Troponin (TNIH) and attachments. Streptococcus pneumoniae Antigen (M [facility] Streptococcus pneumoniae Antigen (M [facility] No Panel InformationOrdered By: Hanh Rico on 03-29-2023 Estimated Creatinine Clearance Calc 58.83 ml/min [facility] Estimated GFR (MDRD) Amer 93 mL/min >60 [facility] Comment on above: GFR Calc Estimated GFR (MDRD) Non-Af Amer 77 mL/min >60 [facility] Comment on above: Non- GFR Calc Troponin I High Sensitivity 346 pg/mL 3.0-78.0 [facility] Comment on above: Critical Result(s) C alled at: 11:11:29 03/29/2023 by: Mainor Dickson RN (ER). Results read back by same. Please Note: New Test Units and Gender Specific Reference Ranges. For more information see Policy Stat Procedure [place] High Sensitivity Troponin (TNIH) and attachments. Platelets bldOrdered By: Josh Rico on 03-29-2023 Platelets (Bld) [#/Vol] 284 10*3/uL 150-450 [facility] Protein Test strip Ql (U)Ord ered By: Hanh Rico on 03-29-2023 Protein Ql (U) 15 mg/dl Negative [facility] Review by pathologistOrdered By: Hanh Rico on 03-29-2023 Pathologist review Diomedes (Unsp spec) [Interp] Daniela diaz [facility] Pathologist review Diomedes (Unsp spec) [Interp] Reviewed [facility] Comment on above: Previous reported re sult: Daniela diaz Edited by: [email or web address] on 03/30/23:1016Neutrophilic leukocytosis.Macrocytic anemia.Clinical correlation necessary.Tobi Olmstead M.D. 03/30/23 AMENDED REPORT 03/30/23 1016 PATH REV previously reported as: Daniela diaz Serum or plasma albumin misbah urement (mass/volume)Ordered By: Hanh Rico on 03-29-2023 Albumin [Mass/Vol] 2.9 g/dL 3.2-5.0 [facility] Serum or plasma calcium misbah urement (mass/volume)Ordered By: Hanh Rico on 03-29-2023 Calcium [Mass/Vol] 8.6 mg/dL 8.5-10.1 [facility] Serum or plasma creatinine m easurement (mass/volume)Ordered By: Hanh Rico on 03-29-2023 Creatinine [Mass/Vol] 0.98 mg/dL 0.70-1.30 [facility] Comment on above: The validity of the calculated GFR & GFRAA in patients over 70 years has not been determined. Clinical correlation is essential. Serum or plasma urea nitroge n measurement (mass/volume)Ordered By: Hanh Rico on 03-29-2023 Urea nitrogen [Mass/Vol] 16 mg/dL 7-18 [facility] Serum procalcitonin measurem entOrdered By: Marilee Yeager on 03-29-2023 Procalcitonin [Mass/Vol] 0.13 ng/mL 0.00-0.09 [facility] Comment on above: A procalcitonin (PCT ) level above 2.0 ng/mL on the first day of ICU admission is associated with a high risk for progression to severe sepsis and/or septic shock. A PCT level below 0.5 ng/mL on the first day of ICU admission is associated with a low risk for progression to severe and/or septic shock. Note: Concentrations <0.5 ng/mL do not exclude an infection on account of localized infections (without systemic signs) which can be associated with such low concentrations, or a systemic infection in its initial stages (<6 hours). Furthermore, increased procalcitonin can occur without infection. PCT concentrations between 0.5 and 2.0 ng/mL should be interpreted taking into account the patient's history. It is recommended to retest PCT within 6-24 hours if any concentrations <2 ng/mL are obtained. Squamous epithelial cells de tection in urine sediment by light microscopyOrdered By: Hanh Rico on 03-29-2023 Epithelial cells.squamous LM Ql (Urine sed) 0 SEEN /hpf 0-5 [facility] Thin prep Papanicolaou smear with manual screeningOrdered By: Hanh Rico on 03-29-2023 Thin prep Papanicolaou smear with manual screening 8 U/L 15-37 [facility] Thin prep Papanicolaou smear with manual screening 7 5-15 [facility] Urine Legionella pneumophila antigen detectionOrdered By: Marilee Yeager on 03-29-2023 L. pneumophila Ag Ql (U) [facility] L. pneumophila Ag Ql (U) [facility] Urine blood detectionOrdered By: Hanh Rico on 03-29-2023 RBC Ql (U) 10 /ul Negative [facility] RBC Ql (U) 0 SEEN /hpf 0-5 [facility] Urine clarityOrdered By: Josh Rico on 03-29-2023 Clarity (U) Clear Clear [facility] Urine color determinationOrd ered By: Hanh Rico on 03-29-2023 Color (U) Yellow Yellow [facility] Urine glucose detectionOrder ed By: Hanh Rico on 03-29-2023 Glucose Ql (U) 1000 mg/dl Normal [facility] Urine leukocyte esterase det ection by dipstickOrdered By: Hanh Rico on 03-29-2023 Leukocyte esterase Test strip Ql (U) 25 /ul Negative [facility] Urine pHOrdered By: Hanh balderrama on 03-29-2023 pH (U) 5.0 [pH] 5.0 - 8.0 [facility] Urine sediment bacteria coun t by microscopy (number/high power field)Ordered By: Hanh Rico on 03-29-2023 Bacteria LM.HPF (Urine sed) [#/Area] 0 /[HPF] None Seen [facility] Urine specific gravity measu rementOrdered By: Hanh Rico on 03-29-2023 Specific gravity (U) [Rel density] 1.015 1.002-1.03 0 [facility] Urobilinogen Auto test strip Ql (U)Ordered By: Hanh Rico on 03-29-2023 Urobilinogen Ql (U) Normal mg/dl Normal [facility] CSTon 03-28-2023 [facility] Normal [facility] ([place]) .Auto Diffon 03-27-2023 Basophil, Absolute 0.0 10 3/mcL Normal 0.0-0.3 [facility] ([place]) Comment on above: Performed By: #### A DIFF, ANEU, BMP, GFR, CBC ####[address] [address] Basophils/100 WBC (Bld) 0.5 % Normal 0.0-2.5 [facility] ([place]) Comment on above: Performed By: #### A DIFF, ANEU, BMP, GFR, CBC ####[address] [address] Eosinophil, Absolute 0.2 10 3/mcL Normal 0.0-0.7 [facility] ([place]) Comment on above: Performed By: #### A DIFF, ANEU, BMP, GFR, CBC ####[address] [address] Eosinophils/100 WBC (Bld) 2.5 % Normal 0.0-6.0 [facility] ([place]) Comment on above: Performed By: #### A DIFF, ANEU, BMP, GFR, CBC ####[address] [address] Lymphocyte, Absolute 0.9 10 3/mcL Normal 0.9-4.3 [facility] ([place]) Comment on above: Performed By: #### A DIFF, ANEU, BMP, GFR, CBC ####[address] [address] Lymphocytes/100 WBC (Bld) 9.8 % Low 20.0-40.0 [facility] ([place]) Comment on above: Performed By: #### A DIFF, ANEU, BMP, GFR, CBC ####[address] [address] Monocyte, Absolute 0.9 10 3/mcL Normal 0.1-1.4 [facility] ([place]) Comment on above: Performed By: #### A DIFF, ANEU, BMP, GFR, CBC ####[address] [address] Monocytes/100 WBC (Bld) 9.5 % Normal 2.0-13.0 [facility] ([place]) Comment on above: Performed By: #### A DIFF, ANEU, BMP, GFR, CBC ####[address] [address] Neutrophils/100 WBC (Bld) 77.7 % High 50.0-75.0 [facility] ([place]) Comment on above: Performed By: #### A DIFF, ANEU, BMP, GFR, CBC ####[address] [address] .GFRon 03-27-2023 GFR >60 Normal [facility] ([place]) Comment on above: Result Comment: GFR Population mean for , Non- Americans Ages 20-29 = 116 mL/min/1.73 sq.m. Ages 30-39 = 107 mL/min/1.73 sq.m. Ages 40-49 = 99 mL/min/1.73 sq.m. Ages 50-59 = 93 mL/min/1.73 sq.m. Ages 60-69 = 85 mL/min/1.73 sq.m. Ages 70+ = 75 mL/min/1.73 sq.m.Chronic Kidney Disease: Less than 60 mL/min/1.73 square metersEnd Stage Renal Disease: Less than 15 mL/min/1.73 square meters Performed By: #### A DIFF, ANEU, BMP, GFR, CBC ####[address] [address] GFR Non- >60 Normal [facility] ([place]) Comment on above: Result Comment: GFR Population mean for , Non- Americans Ages 20-29 = 116 mL/min/1.73 sq.m. Ages 30-39 = 107 mL/min/1.73 sq.m. Ages 40-49 = 99 mL/min/1.73 sq.m. Ages 50-59 = 93 mL/min/1.73 sq.m. Ages 60-69 = 85 mL/min/1.73 sq.m. Ages 70+ = 75 mL/min/1.73 sq.m.Chronic Kidney Disease: Less than 60 mL/min/1.73 square metersEnd Stage Renal Disease: Less than 15 mL/min/1.73 square meters Performed By: #### A DIFF, ANEU, BMP, GFR, CBC ####[place] [address] .NEUABSon 03-27-2023 Neutrophil, Absolute 7.5 10 3/mcL Normal 2.3-8.1 [facility] ([place]) Comment on above: Performed By: #### A DIFF, ANEU, BMP, GFR, CBC ####[place] [address] BMPon 03-27-2023 BUN/Creatinine Ratio 11.7 ratio Normal 10.0-22.0 [facility] ([place]) Comment on above: Performed By: #### A DIFF, ANEU, BMP, GFR, CBC ####[place] [address] Creatinine [Mass/Vol] 0.94 mg/dL Normal 0.60-1.40 [facility] ([place]) Comment on above: Performed By: #### A DIFF, ANEU, BMP, GFR, CBC ####[address] [address] Calcium [Mass/Vol] 8.7 mg/dL Normal 8.7-10.4 [facility] ([place]) Comment on above: Performed By: #### A DIFF, ANEU, BMP, GFR, CBC ####[address] [address] Chloride [Moles/Vol] 104 mmol/L Normal 98-110 [facility] ([place]) Comment on above: Performed By: #### A DIFF, ANEU, BMP, GFR, CBC ####[address] [address] CO2 [Moles/Vol] 37 mmol/L High 22-32 [facility] ([place]) Comment on above: Performed By: #### A DIFF, ANEU, BMP, GFR, CBC ####[address] [address] Electrolyte Balance -1.0 mEq/L Low 4.0-15.0 [facility] ([place]) Comment on above: Performed By: #### A DIFF, ANEU, BMP, GFR, CBC ####[address] [address] Glucose [Mass/Vol] 106 mg/dL Normal 82-115 [facility] ([place]) Comment on above: Performed By: #### A DIFF, ANEU, BMP, GFR, CBC ####[address] [address] Potassium [Moles/Vol] 4.0 mmol/L Normal 3.5-5.0 [facility] ([place]) Comment on above: Performed By: #### A DIFF, ANEU, BMP, GFR, CBC ####[address] [address] Sodium [Moles/Vol] 140 mmol/L Normal 136-145 [facility] ([place]) Comment on above: Performed By: #### A DIFF, ANEU, BMP, GFR, CBC ####[address] [address] Urea nitrogen [Mass/Vol] 11.0 mg/dL Normal 8.0-22.0 [facility] ([place]) Comment on above: Performed By: #### A DIFF, ANEU, BMP, GFR, CBC ####[place] [address] CBCon 03-27-2023 Erythrocyte distribution width (RBC) [Ratio] 14.9 % Normal 11.5-15.5 [facility] ([place]) Comment on above: Performed By: #### A DIFF, ANEU, BMP, GFR, CBC ####[place] [address] Hematocrit (Bld) [Volume fraction] 27.0 % Low 40.0-52.0 [facility] ([place]) Comment on above: Performed By: #### A DIFF, ANEU, BMP, GFR, CBC ####[place] [address] Hgb 9.1 G/dL Low 13.0-17.5 [facility] ([place]) Comment on above: Performed By: #### A DIFF, ANEU, BMP, GFR, CBC ####[place] [address] MCH (RBC) [Entitic mass] 31.8 pg Normal 27.0-33.0 [facility] ([place] Comment on above: Performed By: #### A DIFF, ANEU, BMP, GFR, CBC ####[place] [address] MCHC 33.9 G/dL Normal 32.0-36.0 [facility] ([place] Comment on above: Performed By: #### A DIFF, ANEU, BMP, GFR, CBC ####[place] [address] MCV (RBC) [Entitic vol] 94.0 fL Normal 81.0-100.0 [facility] ([place] Comment on above: Performed By: #### A DIFF, ANEU, BMP, GFR, CBC ####[place] [address] Platelet 241 10 3/mcL Normal 150-450 [facility] ([place]) Comment on above: Performed By: #### A DIFF, ANEU, BMP, GFR, CBC ####[place] [address] Platelet mean volume (Bld) [Entitic vol] 7.7 fL Normal 6.4-10.5 [facility] ([place]) Comment on above: Performed By: #### A DIFF, ANEU, BMP, GFR, CBC ####[address] [address] RBC 2.87 10 6/mcL Low 4.50-6.00 [facility] ([place]) Comment on above: Performed By: #### A DIFF, ANEU, BMP, GFR, CBC ####[address] [address] WBC 9.6 10 3/mcL Normal 4.5-10.8 [facility] ([place]) Comment on above: Performed By: #### A DIFF, ANEU, BMP, GFR, CBC ####[place] [address] LABORATORYOrdered By: SYSTEM SYSTEM on 03-27-2023 Magnesium [Mass/Vol] 1.7 mg/dL Normal 1.6 - 2 .4 mg/dL ADM SS Basophils (Bld) [#/Vol] 0.0 103/mcL Normal 0.0 - 0.3 10^3/mcL AH Workflow SS Basophils/100 WBC (Bld) 0.5 % Normal 0.0 - 2.5 % AH Workflow SS Calcium [Mass/Vol] 8.7 mg/dL Normal 8.7 - 10. 4 mg/dL ADM SS Chloride [Moles/Vol] 104 mmol/L Normal 98 - 11 0 mEq/L ADM SS CO2 [Moles/Vol] 37 mmol/L High 22 - 32 mEq/L ADM SS Creatinine [Mass/Vol] 0.94 mg/dL Normal 0.60 - 1.40 mg/dL ADM SS Electrolyte Balance -1.0 mEq/L Low 4.0 - 15 .0 mEq/L ADM SS Eosinophils (Bld) [#/Vol] 0.2 103/mcL Normal 0.0 - 0.7 10^3/mcL AH Workflow SS Eosinophils/100 WBC (Bld) 2.5 % Normal 0.0 - 6.0 % AH Workflow SS Erythrocyte distribution width (RBC) [Ratio] 14.9 % Normal 11.5 - 15.5 % AH Workflow SS GFR/1.73 sq M.predicted among blacks MDRD (S/P/Bld) [Vol rate/Area] ml/min/1.73sqm Invalid Interpretation Code [facility] Comment on above: Interpretive Data: GFR Population mean for , Non- Americans Ages 20-29 = 116 mL/min/1.73 sq.m. Ages 30-39 = 107 mL/min/1.73 sq.m. Ages 40-49 = 99 mL/min/1.73 sq.m. Ages 50-59 = 93 mL/min/1.73 sq.m. Ages 60-69 = 85 mL/min/1.73 sq.m. Ages 70+ = 75 mL/min/1.73 sq.m. Chronic Kidney Disease: Less than 60 mL/min/1.73 square meters End Stage Renal Disease: Less than 15 mL/min/1.73 square meters GFR/1.73 sq M.predicted among non-blacks MDRD (S/P/Bld) [Vol rate/Area] ml/min/1.73sqm Invalid Interpretation Code [facility] Comment on above: Interpretive Data: GFR Population mean for , Non- Americans Ages 20-29 = 116 mL/min/1.73 sq.m. Ages 30-39 = 107 mL/min/1.73 sq.m. Ages 40-49 = 99 mL/min/1.73 sq.m. Ages 50-59 = 93 mL/min/1.73 sq.m. Ages 60-69 = 85 mL/min/1.73 sq.m. Ages 70+ = 75 mL/min/1.73 sq.m. Chronic Kidney Disease: Less than 60 mL/min/1.73 square meters End Stage Renal Disease: Less than 15 mL/min/1.73 square meters Glucose [Mass/Vol] 106 mg/dL Normal 82 - 115 mg/dL ADM SS Hematocrit (Bld) [Volume fraction] 27.0 % Low 40.0 - 52.0 % Workflow SS Hemoglobin (Bld) [Mass/Vol] 9.1 G/dL Low 13.0 - 17.5 G/dL Workflow SS Lymphocytes (Bld) [#/Vol] 0.9 103/mcL Normal 0.9 - 4.3 10^3/mcL Workflow SS Lymphocytes/100 WBC (Bld) 9.8 % Low 20.0 - 40.0 % AH Workflow SS MCH (RBC) [Entitic mass] 31.8 pg Normal 27.0 - 33.0 pg Workflow SS MCHC 33.9 G/dL Normal 32.0 - 36.0 G/dL AH Workflow SS MCV (RBC) [Entitic vol] 94.0 fL Normal 81.0 - 100.0 fL AH Workflow SS Monocytes (Bld) [#/Vol] 0.9 103/mcL Normal 0.1 - 1.4 10^3/mcL AH Workflow SS Monocytes/100 WBC (Bld) 9.5 % Normal 2.0 - 13.0 % AH Workflow SS Neutrophils (Bld) [#/Vol] 7.5 103/mcL Normal 2.3 - 8.1 10^3/mcL AH Workflow SS Neutrophils/100 WBC (Bld) 77.7 % High 50.0 - 75.0 % AH Workflow SS Platelet mean volume (Bld) [Entitic vol] 7.7 fL Normal 6.4 - 10.5 fL Workflow SS Platelets (Bld) [#/Vol] 241 103/mcL Normal 150 - 450 10^3/mcL AH Workflow SS Potassium [Moles/Vol] 4.0 mmol/L Normal 3.5 - 5.0 mEq/L AH ADM SS RBC (Bld) [#/Vol] 2.87 106/mcL Low 4.50 - 6.00 10^6/mcL AH Workflow SS Sodium [Moles/Vol] 140 mmol/L Normal 136 - 145 mEq/L ADM SS Urea nitrogen [Mass/Vol] 11.0 mg/dL Normal 8.0 - 22.0 mg/dL AH ADM SS Urea nitrogen/Creatinine [Mass ratio] 11.7 ratio Normal 10.0 - 22.0 ratio AH ADM SS WBC (Bld) [#/Vol] 9.6 103/mcL Normal 4.5 - 10.8 10^3/mcL Workflow SS MGon 03-27-2023 Magnesium [Mass/Vol] 1.7 mg/dL Normal 1.6-2.4 [facility] ([place]) Comment on above: Performed By: #### M G ####[place] [address] .GFRon 03-26-2023 GFR Non- >60 Normal [facility] ([place]) Comment on above: Result Comment: GFR Population mean for , Non- Americans Ages 20-29 = 116 mL/min/1.73 sq.m. Ages 30-39 = 107 mL/min/1.73 sq.m. Ages 40-49 = 99 mL/min/1.73 sq.m. Ages 50-59 = 93 mL/min/1.73 sq.m. Ages 60-69 = 85 mL/min/1.73 sq.m. Ages 70+ = 75 mL/min/1.73 sq.m.Chronic Kidney Disease: Less than 60 mL/min/1.73 square metersEnd Stage Renal Disease: Less than 15 mL/min/1.73 square meters Performed By: #### B MP, GFR ####[address] [address] GFR >60 Normal [facility] ([place]) Comment on above: Result Comment: GFR Population mean for , Non- Americans Ages 20-29 = 116 mL/min/1.73 sq.m. Ages 30-39 = 107 mL/min/1.73 sq.m. Ages 40-49 = 99 mL/min/1.73 sq.m. Ages 50-59 = 93 mL/min/1.73 sq.m. Ages 60-69 = 85 mL/min/1.73 sq.m. Ages 70+ = 75 mL/min/1.73 sq.m.Chronic Kidney Disease: Less than 60 mL/min/1.73 square metersEnd Stage Renal Disease: Less than 15 mL/min/1.73 square meters Performed By: #### B MP, GFR ####[address] [address] BMPon 03-26-2023 BUN/Creatinine Ratio 11.8 ratio Normal 10.0-22.0 [facility] ([place]) Comment on above: Performed By: #### B MP, GFR ####[address] [address] Calcium [Mass/Vol] 8.3 mg/dL Low 8.7-10.4 [facility] ([place]) Comment on above: Performed By: #### B MP, GFR ####[address] [address] Chloride [Moles/Vol] 106 mmol/L Normal 98-110 [facility] ([place]) Comment on above: Performed By: #### B MP, GFR ####[address] [address] CO2 [Moles/Vol] 27 mmol/L Normal 22-32 [facility] ([place] Comment on above: Performed By: #### B MP, GFR ####[address] [address] Creatinine [Mass/Vol] 0.85 mg/dL Normal 0.60-1.40 [facility] ([place]) Comment on above: Performed By: #### B MP, GFR ####[address] [address] Electrolyte Balance 6.0 mEq/L Normal 4.0-15.0 [facility] ([place]) Comment on above: Performed By: #### B MP, GFR ####[address] [address] Glucose [Mass/Vol] 100 mg/dL Normal 82-115 [facility] ([place]) Comment on above: Performed By: #### B MP, GFR ####[address] [address] Potassium [Moles/Vol] 3.8 mmol/L Normal 3.5-5.0 [facility] ([place]) Comment on above: Result Comment: Spec imen slightly hemolyzed. Performed By: #### B MP, GFR ####[address] [address] Sodium [Moles/Vol] 139 mmol/L Normal 136-145 [facility] ([place]) Comment on above: Performed By: #### B MP, GFR ####[address] [address] Urea nitrogen [Mass/Vol] 10.0 mg/dL Normal 8.0-22.0 [facility] ([place] Comment on above: Performed By: #### B MP, GFR ####[address] [address] CORTon 03-26-2023 Cortisol Level 4.4 mcg/dL Normal [facility] ([place]) Comment on above: Result Comment: Abner isol AM Reference Range 6.5-26.0 mcg/dLCortisol PM Reference Range 3.5-15.0 mcg/dL Performed By: #### C ORT ####[place] [address] HHon 03-26-2023 Hematocrit (Bld) [Volume fraction] 24.9 % Low 40.0-52.0 [facility] ([place] Comment on above: Performed By: #### H H ####[place] [address] Hgb 8.6 G/dL Low 13.0-17.5 [facility] ([place]) Comment on above: Performed By: #### H H ####[place] [address] LABORATORYOrdered By: SYSTEM SYSTEM on 03-26-2023 Hematocrit (Bld) [Volume fraction] 24.9 % Low 40.0 - 52.0 % Workflow SS Hemoglobin (Bld) [Mass/Vol] 8.6 G/dL Low 13.0 - 17.5 G/dL Workflow SS Cortisol [Mass/Vol] 4.4 ug/dL Invalid Interpretation Code ADM SS Comment on above: Interpretive Data: C ortisol AM Reference Range 6.5-26.0 mcg/dL Cortisol PM Reference Range 3.5-15.0 mcg/dL Calcium [Mass/Vol] 8.3 mg/dL Low 8.7 - 10. 4 mg/dL ADM SS Chloride [Moles/Vol] 106 mmol/L Normal 98 - 11 0 mEq/L ADM SS CO2 [Moles/Vol] 27 mmol/L Normal 22 - 32 mEq/L ADM SS Creatinine [Mass/Vol] 0.85 mg/dL Normal 0.60 - 1.40 mg/dL ADM SS Electrolyte Balance 6.0 mEq/L Normal 4.0 - 15 .0 mEq/L ADM SS GFR/1.73 sq M.predicted among blacks MDRD (S/P/Bld) [Vol rate/Area] ml/min/1.73sqm Invalid Interpretation Code ADM Comment on above: Interpretive Data: GFR Population mean for , Non- Americans Ages 20-29 = 116 mL/min/1.73 sq.m. Ages 30-39 = 107 mL/min/1.73 sq.m. Ages 40-49 = 99 mL/min/1.73 sq.m. Ages 50-59 = 93 mL/min/1.73 sq.m. Ages 60-69 = 85 mL/min/1.73 sq.m. Ages 70+ = 75 mL/min/1.73 sq.m. Chronic Kidney Disease: Less than 60 mL/min/1.73 square meters End Stage Renal Disease: Less than 15 mL/min/1.73 square meters GFR/1.73 sq M.predicted among non-blacks MDRD (S/P/Bld) [Vol rate/Area] ml/min/1.73sqm Invalid Interpretation Code [facility] Comment on above: Interpretive Data: GFR Population mean for , Non- Americans Ages 20-29 = 116 mL/min/1.73 sq.m. Ages 30-39 = 107 mL/min/1.73 sq.m. Ages 40-49 = 99 mL/min/1.73 sq.m. Ages 50-59 = 93 mL/min/1.73 sq.m. Ages 60-69 = 85 mL/min/1.73 sq.m. Ages 70+ = 75 mL/min/1.73 sq.m. Chronic Kidney Disease: Less than 60 mL/min/1.73 square meters End Stage Renal Disease: Less than 15 mL/min/1.73 square meters Glucose [Mass/Vol] 100 mg/dL Normal 82 - 115 mg/dL [facility] Potassium [Moles/Vol] 3.8 mmol/L Normal 3.5 - 5.0 mEq/L [facility] Comment on above: Result Comment: Spec imen slightly hemolyzed. Sodium [Moles/Vol] 139 mmol/L Normal 136 - 145 mEq/L ADM Urea nitrogen [Mass/Vol] 10.0 mg/dL Normal 8.0 - 22.0 mg/dL ADM SS Urea nitrogen/Creatinine [Mass ratio] 11.8 ratio Normal 10.0 - 22.0 ratio ADM SHIGAon 03-26-2023 SHIGA Normal [facility] ([place]) .Auto Diffon 03-25-2023 Basophil, Absolute 0.1 10 3/mcL Normal 0.0-0.3 [facility] ([place]) Comment on above: Performed By: #### C JORGE LUIS OLIVARES, ANEU ####[address] [address] Basophils/100 WBC (Bld) 0.6 % Normal 0.0-2.5 [facility] ([place]) Comment on above: Performed By: #### C JORGE LUIS OLIVARES, ANEU ####[address] [address] Eosinophil, Absolute 0.2 10 3/mcL Normal 0.0-0.7 [facility] ([place]) Comment on above: Performed By: #### JORGE LUIS VELÁZQUEZ, ANEU ####[address] [address] Eosinophils/100 WBC (Bld) 1.7 % Normal 0.0-6.0 [facility] ([place]) Comment on above: Performed By: #### C JORGE LUIS OLIVARES, ANEU ####[address] [address] Lymphocyte, Absolute 1.0 10 3/mcL Normal 0.9-4.3 [facility] ([place] Comment on above: Performed By: #### C JORGE LUIS OLIVARES, ANEU ####[address] [address] Lymphocytes/100 WBC (Bld) 9.2 % Low 20.0-40.0 [facility] ([place]) Comment on above: Performed By: #### C JORGE LUIS OLIVARES, ANEU ####[address] [address] Monocyte, Absolute 1.2 10 3/mcL Normal 0.1-1.4 [facility] ([place]) Comment on above: Performed By: #### JORGE LUIS VELÁZQUEZ, ANEU ####[address] [address] Monocytes/100 WBC (Bld) 10.9 % Normal 2.0-13.0 [facility] ([place]) Comment on above: Performed By: #### C BC, ADIFF, ANEU ####[address] [address] Neutrophils/100 WBC (Bld) 77.6 % High 50.0-75.0 [facility] ([place]) Comment on above: Performed By: #### C BC, ADIFF, ANEU ####[address] [address] Basophil, Absolute 0.1 10 3/mcL Normal 0.0-0.3 [facility] ([place]) Comment on above: Performed By: #### C BC, ANEU, ADIFF ####[address] [address] Basophils/100 WBC (Bld) 0.5 % Normal 0.0-2.5 [facility] ([place]) Comment on above: Performed By: #### C BC, ANEU, ADIFF ####[address] [address] Eosinophil, Absolute 0.2 10 3/mcL Normal 0.0-0.7 [facility] ([place]) Comment on above: Performed By: #### C BC, ANEU, ADIFF ####[address] [address] Eosinophils/100 WBC (Bld) 1.4 % Normal 0.0-6.0 [facility] ([place]) Comment on above: Performed By: #### C BC, ANEU, ADIFF ####[address] [address] Lymphocyte, Absolute 1.0 10 3/mcL Normal 0.9-4.3 [facility] ([place]) Comment on above: Performed By: #### C BC, ANEU, ADIFF ####[address] [address] Lymphocytes/100 WBC (Bld) 8.0 % Low 20.0-40.0 [facility] ([place]) Comment on above: Performed By: #### C BC, ANEU, ADIFF ####[address] [address] Monocyte, Absolute 1.4 10 3/mcL Normal 0.1-1.4 [facility] ([place]) Comment on above: Performed By: #### C BC, ANEU, ADIFF ####[place] [address] [place] [address] Monocytes/100 WBC (Bld) 11.4 % Normal 2.0-13.0 [facility] ([place]) Comment on above: Performed By: #### C BC, ANEU, ADIFF ####[place] [address] [place] [address] Neutrophils/100 WBC (Bld) 78.7 % High 50.0-75.0 [facility] ([place] Comment on above: Performed By: #### C BC, ANEU, ADIFF ####[address] [address] .GFRon 03-25-2023 GFR >60 Normal [facility] ([place]) Comment on above: Result Comment: GFR Population mean for , Non- Americans Ages 20-29 = 116 mL/min/1.73 sq.m. Ages 30-39 = 107 mL/min/1.73 sq.m. Ages 40-49 = 99 mL/min/1.73 sq.m. Ages 50-59 = 93 mL/min/1.73 sq.m. Ages 60-69 = 85 mL/min/1.73 sq.m. Ages 70+ = 75 mL/min/1.73 sq.m.Chronic Kidney Disease: Less than 60 mL/min/1.73 square metersEnd Stage Renal Disease: Less than 15 mL/min/1.73 square meters Performed By: #### B MP, GFR ####[address] [address] GFR Non- >60 Normal [facility] ([place] Comment on above: Result Comment: GFR Population mean for , Non- Americans Ages 20-29 = 116 mL/min/1.73 sq.m. Ages 30-39 = 107 mL/min/1.73 sq.m. Ages 40-49 = 99 mL/min/1.73 sq.m. Ages 50-59 = 93 mL/min/1.73 sq.m. Ages 60-69 = 85 mL/min/1.73 sq.m. Ages 70+ = 75 mL/min/1.73 sq.m.Chronic Kidney Disease: Less than 60 mL/min/1.73 square metersEnd Stage Renal Disease: Less than 15 mL/min/1.73 square meters Performed By: #### B MP, GFR ####[address] [address] .NEUABSon 03-25-2023 Neutrophil, Absolute 8.2 10 3/mcL High 2.3-8.1 [facility] ([place]) Comment on above: Performed By: #### C BC, ADIFF, ANEU ####[place] [address] Neutrophil, Absolute 9.9 10 3/mcL High 2.3-8.1 [facility] ([place]) Comment on above: Performed By: #### C BC, ANEU, ADIFF ####[address] [address] BMPon 03-25-2023 BUN/Creatinine Ratio 11.5 ratio Normal 10.0-22.0 [facility] ([place]) Comment on above: Performed By: #### B MP, GFR ####[place] [address] Calcium [Mass/Vol] 8.3 mg/dL Low 8.7-10.4 [facility] ([place]) Comment on above: Performed By: #### B MP, GFR ####[address] [address] Chloride [Moles/Vol] 109 mmol/L Normal 98-110 [facility] ([place]) Comment on above: Performed By: #### B MP, GFR ####[address] [address] CO2 [Moles/Vol] 25 mmol/L Normal 22-32 [facility] ([place]) Comment on above: Performed By: #### B MP, GFR ####[address] [address] Creatinine [Mass/Vol] 0.78 mg/dL Normal 0.60-1.40 [facility] ([place]) Comment on above: Performed By: #### B MP, GFR ####[address] [address] Electrolyte Balance 6.0 mEq/L Normal 4.0-15.0 [facility] ([place]) Comment on above: Performed By: #### B MP, GFR ####[address] [address] Glucose [Mass/Vol] 112 mg/dL Normal 82-115 [facility] ([place]) Comment on above: Performed By: #### B MP, GFR ####[address] [address] Potassium [Moles/Vol] 3.9 mmol/L Normal 3.5-5.0 [facility] ([place]) Comment on above: Performed By: #### Shelly MP, GFR ####[place] [address] Sodium [Moles/Vol] 140 mmol/L Normal 136-145 [facility] ([place]) Comment on above: Performed By: #### Shelly MP, GFR ####[place] [address] Urea nitrogen [Mass/Vol] 9.0 mg/dL Normal 8.0-22.0 [facility] ([place]) Comment on above: Performed By: #### Shelly MP, GFR ####[address] [address] CBCon 03-25-2023 Erythrocyte distribution width (RBC) [Ratio] 15.5 % Normal 11.5-15.5 [facility] ([place]) Comment on above: Performed By: #### JORGE LUIS VELÁZQUEZ, ANEU ####[address] [address] Hematocrit (Bld) [Volume fraction] 24.5 % Low 40.0-52.0 [facility] ([place]) Comment on above: Performed By: #### JORGE LUIS VELÁZQUEZ, ANEU ####[address] [address] Hgb 8.4 G/dL Low 13.0-17.5 [facility] ([place]) Comment on above: Performed By: #### Brodie JORGE LUIS OLIVARES, ANEU ####[address] [address] MCH (RBC) [Entitic mass] 32.2 pg Normal 27.0-33.0 [facility] ([place]) Comment on above: Performed By: #### JORGE LUIS VELÁZQUEZ, ANEU ####[address] [address] MCHC 34.1 G/dL Normal 32.0-36.0 [facility] ([place]) Comment on above: Performed By: #### C JORGE LUIS OLIVARES, ANEU ####[address] [address] MCV (RBC) [Entitic vol] 94.3 fL Normal 81.0-100.0 [facility] ([place]) Comment on above: Performed By: #### C JORGE LUIS OLIVARES, ANEU ####[address] [address] Platelet 168 10 3/mcL Normal 150-450 [facility] ([place]) Comment on above: Performed By: #### C JORGE LUIS OLIVARES, ANEU ####[address] [address] Platelet mean volume (Bld) [Entitic vol] 7.8 fL Normal 6.4-10.5 [facility] ([place]) Comment on above: Performed By: #### C JORGE LUIS OLIVARES, ANEU ####[address] [address] RBC 2.60 10 6/mcL Low 4.50-6.00 [facility] ([place]) Comment on above: Performed By: #### C JORGE LUIS OLIVARES, ANEU ####[address] [address] WBC 10.6 10 3/mcL Normal 4.5-10.8 [facility] ([place]) Comment on above: Performed By: #### C JORGE LUIS OLIVARES, ANEU ####[address] [address] Erythrocyte distribution width (RBC) [Ratio] 15.0 % Normal 11.5-15.5 [facility] ([place]) Comment on above: Performed By: #### C BC, ANEU, ADIFF ####[address] [address] Hematocrit (Bld) [Volume fraction] 23.3 % Low 40.0-52.0 [facility] ([place]) Comment on above: Performed By: #### C BC, ANEU, ADIFF ####[address] [address] Hgb 8.1 G/dL Low 13.0-17.5 [facility] ([place]) Comment on above: Performed By: #### C BC, ANEU, ADIFF ####[address] [address] MCH (RBC) [Entitic mass] 32.2 pg Normal 27.0-33.0 [facility] ([place]) Comment on above: Performed By: #### C BC, ANEU, ADIFF ####[place] [address] MCHC 34.7 G/dL Normal 32.0-36.0 [facility] ([place]) Comment on above: Performed By: #### C BC, ANEU, ADIFF ####[address] [address] MCV (RBC) [Entitic vol] 93.0 fL Normal 81.0-100.0 [facility] ([place]) Comment on above: Performed By: #### C BC, ANEU, ADIFF ####[address] [address] Platelet 174 10 3/mcL Normal 150-450 [facility] ([place]) Comment on above: Performed By: #### C BC, ANEU, ADIFF ####[address] [address] Platelet mean volume (Bld) [Entitic vol] 7.6 fL Normal 6.4-10.5 [facility] ([place]) Comment on above: Performed By: #### C BC, ANEU, ADIFF ####[address] [address] RBC 2.50 10 6/mcL Low 4.50-6.00 [facility] ([place]) Comment on above: Performed By: #### C BC, ANEU, ADIFF ####[facility] [place] [address] WBC 12.6 10 3/mcL High 4.5-10.8 [facility] ([place]) Comment on above: Performed By: #### C BC, ANEU, ADIFF ####[facility] [place] [address] HGBon 03-25-2023 Hgb 8.4 G/dL Low 13.0-17.5 [facility] ([place]) Comment on above: Performed By: #### H GB ####[facility] [place] [address] LABORATORYOrdered By: Eric Delgado on 03-25-2023 Hemoglobin.gastrointes tinal 8th specimen Ql (Stl) Negative 8 (03/25/23 5:03 PM) Normal Negative Manual Urine SS Comment on above: Interpretive Data: T his test utilizes the guaiac fecal blood method, which detects peroxidase activity (heme) indicating bleeding from stomach, small intestine, or large intestine. If bleeding from either upper or lower gastrointestinal tract is a clinical consideration, the [facility] recommends the use of both the guaiac fecal blood test and the Immunochemical fecal blood test. LABORATORYOrdered By: SYSTEM SYSTEM on 03-25-2023 Hemoglobin (Bld) [Mass/Vol] 8.4 G/dL Low 13.0 - 17.5 G/dL AH Workflow SS Calcium [Mass/Vol] 8.3 mg/dL Low 8.7 - 10. 4 mg/dL ADM SS Chloride [Moles/Vol] 109 mmol/L Normal 98 - 11 0 mEq/L AH ADM SS CO2 [Moles/Vol] 25 mmol/L Normal 22 - 32 mEq/L ADM SS Creatinine [Mass/Vol] 0.78 mg/dL Normal 0.60 - 1.40 mg/dL ADM SS Electrolyte Balance 6.0 mEq/L Normal 4.0 - 15 .0 mEq/L ADM SS GFR/1.73 sq M.predicted among blacks MDRD (S/P/Bld) [Vol rate/Area] ml/min/1.73sqm Invalid Interpretation Code AH ADM SS Comment on above: Interpretive Data: GFR Population mean for , Non- Americans Ages 20-29 = 116 mL/min/1.73 sq.m. Ages 30-39 = 107 mL/min/1.73 sq.m. Ages 40-49 = 99 mL/min/1.73 sq.m. Ages 50-59 = 93 mL/min/1.73 sq.m. Ages 60-69 = 85 mL/min/1.73 sq.m. Ages 70+ = 75 mL/min/1.73 sq.m. Chronic Kidney Disease: Less than 60 mL/min/1.73 square meters End Stage Renal Disease: Less than 15 mL/min/1.73 square meters GFR/1.73 sq M.predicted among non-blacks MDRD (S/P/Bld) [Vol rate/Area] ml/min/1.73sqm Invalid Interpretation Code [facility] Comment on above: Interpretive Data: GFR Population mean for , Non- Americans Ages 20-29 = 116 mL/min/1.73 sq.m. Ages 30-39 = 107 mL/min/1.73 sq.m. Ages 40-49 = 99 mL/min/1.73 sq.m. Ages 50-59 = 93 mL/min/1.73 sq.m. Ages 60-69 = 85 mL/min/1.73 sq.m. Ages 70+ = 75 mL/min/1.73 sq.m. Chronic Kidney Disease: Less than 60 mL/min/1.73 square meters End Stage Renal Disease: Less than 15 mL/min/1.73 square meters Glucose [Mass/Vol] 112 mg/dL Normal 82 - 115 mg/dL ADM SS Potassium [Moles/Vol] 3.9 mmol/L Normal 3.5 - 5.0 mEq/L ADM SS Sodium [Moles/Vol] 140 mmol/L Normal 136 - 145 mEq/L ADM SS Urea nitrogen [Mass/Vol] 9.0 mg/dL Normal 8.0 - 22.0 mg/dL ADM SS Urea nitrogen/Creatinine [Mass ratio] 11.5 ratio Normal 10.0 - 22.0 ratio ADM SS Basophils (Bld) [#/Vol] 0.1 103/mcL Normal 0.0 - 0.3 10^3/mcL AH Workflow SS Basophils/100 WBC (Bld) 0.6 % Normal 0.0 - 2.5 % AH Workflow SS Eosinophils (Bld) [#/Vol] 0.2 103/mcL Normal 0.0 - 0.7 10^3/mcL AH Workflow SS Eosinophils/100 WBC (Bld) 1.7 % Normal 0.0 - 6.0 % AH Workflow SS Erythrocyte distribution width (RBC) [Ratio] 15.5 % Normal 11.5 - 15.5 % AH Workflow SS Hematocrit (Bld) [Volume fraction] 24.5 % Low 40.0 - 52.0 % AH Workflow SS Lymphocytes (Bld) [#/Vol] 1.0 103/mcL Normal 0.9 - 4.3 10^3/mcL AH Workflow SS Lymphocytes/100 WBC (Bld) 9.2 % Low 20.0 - 40.0 % AH Workflow SS MCH (RBC) [Entitic mass] 32.2 pg Normal 27.0 - 33.0 pg AH Workflow SS MCHC 34.1 G/dL Normal 32.0 - 36.0 G/dL AH Workflow SS MCV (RBC) [Entitic vol] 94.3 fL Normal 81.0 - 100.0 fL AH Workflow SS Monocytes (Bld) [#/Vol] 1.2 103/mcL Normal 0.1 - 1.4 10^3/mcL AH Workflow SS Monocytes/100 WBC (Bld) 10.9 % Normal 2.0 - 13.0 % AH Workflow SS Neutrophils (Bld) [#/Vol] 8.2 103/mcL High 2.3 - 8.1 10^3/mcL AH Workflow SS Neutrophils/100 WBC (Bld) 77.6 % High 50.0 - 75.0 % AH Workflow SS Platelet mean volume (Bld) [Entitic vol] 7.8 fL Normal 6.4 - 10.5 fL AH Workflow SS Platelets (Bld) [#/Vol] 168 103/mcL Normal 150 - 450 10^3/mcL AH Workflow SS RBC (Bld) [#/Vol] 2.60 106/mcL Low 4.50 - 6.00 10^6/mcL AH Workflow SS WBC (Bld) [#/Vol] 10.6 103/mcL Normal 4.5 - 10.8 10^3/mcL AH Workflow SS LABORATORYOrdered By: Tone Engle on 03-25-2023 Natriuretic peptide.B prohormone N-Terminal [Mass/Vol] 571 pg/mL Normal 0 - 1800 pg/mL Auto Chem SS Comment on above: Interpretive Data: N T-proBNP results of less than 300 pg/mL effectively rules out acute congestive heart failure with 99% negative predictive value. No Panel Informationon 03-25 Shiga Toxins 1 and 2 Absence of Shiga to johnny 1 Absence of Shiga toxin 2 [facility] Work Phone: Comment on above: Testing performed by immunochromatography. Culture Stool Normal stool lyudmila p resent. Negative for stool pathogens at 48 hours. Final report to follow. [facility] Work Phone: Comment on above: Requests for alterna tive pathogens including Yersinia, E. coli 0157, C. difficile toxin, Rotavirus, Giardia and parasites require specific requests. OCC (LAB)on 03-25-2023 Occult Blood Fecal Negative Normal Negative [facility] ([place]) Comment on above: Result Comment: This test utilizes the guaiac fecal blood method, which detects peroxidase activity (heme) indicating bleedingfrom stomach, small intestine, or large intestine. Ifbleeding from either upper or lower gastrointestinal tract is a clinical consideration, the [facility] recommends the use of both the guaiac fecal blood test and the Immunochemical fecal blood test. Performed By: #### O CC ####[address] [address] PBNPon 03-25-2023 Natriuretic peptide B (Bld) [Mass/Vol] 571 pg/mL Normal 0-1800 [facility] ([place]) Comment on above: Result Comment: NT-p roBNP results of less than 300 pg/mL effectivelyrules out acute congestive heart failure with 99% negative predictive value. Performed By: #### P BNP ####[address] [address] XR CHEST 1 VIEWon 03-25-2023 XR CHEST 1 VIEW Normal [facility] ([place]) .Auto Diffon 03-24-2023 Basophil, Absolute 0.1 10 3/mcL Normal 0.0-0.3 [facility] ([place]) Comment on above: Performed By: #### C JORGE LUIS OLIVARES, ANEU ####[facility] [place] [address] Basophils/100 WBC (Bld) 0.5 % Normal 0.0-2.5 [facility] ([place]) Comment on above: Performed By: #### C JORGE LUIS OLIVARES, ANEU ####[facility] [place] [address] Eosinophil, Absolute 0.1 10 3/mcL Normal 0.0-0.7 [facility] ([place]) Comment on above: Performed By: #### C JORGE LUIS OLIVARES, ANEU ####[facility] [place] [address] Eosinophils/100 WBC (Bld) 0.9 % Normal 0.0-6.0 [facility] ([place]) Comment on above: Performed By: #### C JORGE LUIS OLIVARES, ANEU ####[facility] [place] [address] Lymphocyte, Absolute 0.9 10 3/mcL Normal 0.9-4.3 [facility] ([place]) Comment on above: Performed By: #### C JORGE LUIS OLIVARES, ANEU ####[address] [address] Lymphocytes/100 WBC (Bld) 8.3 % Low 20.0-40.0 [facility] ([place]) Comment on above: Performed By: #### C JORGE LUIS OLIVARES, ANEU ####[facility] [place] [address] Monocyte, Absolute 1.1 10 3/mcL Normal 0.1-1.4 [facility] ([place]) Comment on above: Performed By: #### C JORGE LUIS OLIVARES, ANEU ####[facility] [place] [address] Monocytes/100 WBC (Bld) 9.5 % Normal 2.0-13.0 [facility] ([place]) Comment on above: Performed By: #### C JORGE LUIS OLIVARES, ANEU ####[facility] [place] [address] Neutrophils/100 WBC (Bld) 80.8 % High 50.0-75.0 [facility] ([place]) Comment on above: Performed By: #### C JORGE LUIS OLIVARES, ANEU ####[address] [address] Basophil, Absolute 0.1 10 3/mcL Normal 0.0-0.3 [facility] ([place]) Comment on above: Performed By: #### C JORGE LUIS OLIVARES, ANEU ####[address] [address] Basophils/100 WBC (Bld) 0.5 % Normal 0.0-2.5 [facility] ([place]) Comment on above: Performed By: #### C JORGE LUIS OLIVARES, ANEU ####[address] [address] Eosinophil, Absolute 0.1 10 3/mcL Normal 0.0-0.7 [facility] ([place]) Comment on above: Performed By: #### C JORGE LUIS OLIVARES, ANEU ####[address] [address] Eosinophils/100 WBC (Bld) 0.7 % Normal 0.0-6.0 [facility] ([place]) Comment on above: Performed By: #### C JORGE LUIS OLIVARES, ANEU ####[address] [address] Lymphocyte, Absolute 1.0 10 3/mcL Normal 0.9-4.3 [facility] ([place]) Comment on above: Performed By: #### C JORGE LUIS OLIVARES, ANEU ####[address] [address] Lymphocytes/100 WBC (Bld) 7.9 % Low 20.0-40.0 [facility] ([place]) Comment on above: Performed By: #### C JORGE LUIS OLIVARES, ANEU ####[address] [address] Monocyte, Absolute 1.1 10 3/mcL Normal 0.1-1.4 [facility] ([place]) Comment on above: Performed By: #### C JORGE LUIS OLIVARES, ANEU ####[address] [address] Monocytes/100 WBC (Bld) 9.1 % Normal 2.0-13.0 [facility] ([place]) Comment on above: Performed By: #### C BC, ADIFF, ANEU ####[address] [address] Neutrophils/100 WBC (Bld) 81.8 % High 50.0-75.0 [facility] ([place]) Comment on above: Performed By: #### C BC, ADIFF, ANEU ####[address] [address] Basophil, Absolute 0.0 10 3/mcL Normal 0.0-0.3 [facility] ([place]) Comment on above: Performed By: #### A ROSIO, BMP, ADIFF, CBC, GFR ####[address] [address] Basophils/100 WBC (Bld) 0.1 % Normal 0.0-2.5 [facility] ([place]) Comment on above: Performed By: #### A ROSIO, BMP, ADIFF, CBC, GFR ####[address] [address] Eosinophil, Absolute 0.0 10 3/mcL Normal 0.0-0.7 [facility] ([place]) Comment on above: Performed By: #### A ROSIO, BMP, ADIFF, CBC, GFR ####[address] [address] Eosinophils/100 WBC (Bld) 0.1 % Normal 0.0-6.0 [facility] ([place]) Comment on above: Performed By: #### A ROSIO, BMP, ADIFF, CBC, GFR ####[address] [address] Lymphocyte, Absolute 0.7 10 3/mcL Low 0.9-4.3 [facility] ([place]) Comment on above: Performed By: #### A ROSIO, BMP, ADIFF, CBC, GFR ####[address] [address] Lymphocytes/100 WBC (Bld) 4.7 % Low 20.0-40.0 [facility] ([place]) Comment on above: Performed By: #### A ROSIO, BMP, ADIFF, CBC, GFR ####[address] [address] Monocyte, Absolute 1.4 10 3/mcL Normal 0.1-1.4 [facility] ([place]) Comment on above: Performed By: #### A ROSIO, BMP, ADIFF, CBC, GFR ####[address] [address] Monocytes/100 WBC (Bld) 9.5 % Normal 2.0-13.0 [facility] ([place] Comment on above: Performed By: #### A ROSIO, BMP, ADIFF, CBC, GFR ####[address] [address] Neutrophils/100 WBC (Bld) 85.6 % High 50.0-75.0 [facility] ([place]) Comment on above: Performed By: #### A ROSIO, BMP, ADIFF, CBC, GFR ####[address] [address] .GFRon 03-24-2023 GFR Non- >60 Normal [facility] ([place]) Comment on above: Result Comment: GFR Population mean for , Non- Americans Ages 20-29 = 116 mL/min/1.73 sq.m. Ages 30-39 = 107 mL/min/1.73 sq.m. Ages 40-49 = 99 mL/min/1.73 sq.m. Ages 50-59 = 93 mL/min/1.73 sq.m. Ages 60-69 = 85 mL/min/1.73 sq.m. Ages 70+ = 75 mL/min/1.73 sq.m.Chronic Kidney Disease: Less than 60 mL/min/1.73 square metersEnd Stage Renal Disease: Less than 15 mL/min/1.73 square meters Performed By: #### A ROSIO, BMP, ADIFF, CBC, GFR ####[address] [address] GFR >60 Normal [facility] ([place]) Comment on above: Result Comment: GFR Population mean for , Non- Americans Ages 20-29 = 116 mL/min/1.73 sq.m. Ages 30-39 = 107 mL/min/1.73 sq.m. Ages 40-49 = 99 mL/min/1.73 sq.m. Ages 50-59 = 93 mL/min/1.73 sq.m. Ages 60-69 = 85 mL/min/1.73 sq.m. Ages 70+ = 75 mL/min/1.73 sq.m.Chronic Kidney Disease: Less than 60 mL/min/1.73 square metersEnd Stage Renal Disease: Less than 15 mL/min/1.73 square meters Performed By: #### A ROSIO, BMP, ADIFF, CBC, GFR ####[address] [address] .NEUABSon 03-24-2023 Neutrophil, Absolute 9.1 10 3/mcL High 2.3-8.1 [facility] ([place]) Comment on above: Performed By: #### C BC, ADIFF, ANEU ####[place] [address] Neutrophil, Absolute 10.2 10 3/mcL High 2.3-8.1 A [facility] ([place]) Comment on above: Performed By: #### C BC, ADIFF, ANEU ####[place] [address] Neutrophil, Absolute 12.4 10 3/mcL High 2.3-8.1 A [facility] ([place]) Comment on above: Performed By: #### A ROSIO, BMP, ADIFF, CBC, GFR ####[place] [address] ABO/Rh (Gel)on 03-24-2023 ABO/Rh Interp Positive Invalid Interpretation Code [facility] ([place]) Comment on above: Performed By: #### A BECKY PRINCE ####[place] [address] ABS (Gel)on 03-24-2023 ABSC Interp (Gel) Negative Normal [facility] ([place]) Comment on above: Performed By: #### BECKY DE LA CRUZ ####[place] [address] BMPon 03-24-2023 BUN/Creatinine Ratio 12.9 ratio Normal 10.0-22.0 [facility] ([place]) Comment on above: Performed By: #### A ROSIO, BMP, ADIFF, CBC, GFR ####[address] [address] Calcium [Mass/Vol] 8.3 mg/dL Low 8.7-10.4 [facility] ([place]) Comment on above: Performed By: #### A ROSIO, BMP, ADIFF, CBC, GFR ####[address] [address] Chloride [Moles/Vol] 113 mmol/L High 98-110 [facility] ([place]) Comment on above: Performed By: #### A ROSIO, BMP, ADIFF, CBC, GFR ####[address] [address] CO2 [Moles/Vol] 25 mmol/L Normal 22-32 [facility] ([place]) Comment on above: Performed By: #### A ROSIO, BMP, ADIFF, CBC, GFR ####[address] [address] Creatinine [Mass/Vol] 0.85 mg/dL Normal 0.60-1.40 [facility] ([place]) Comment on above: Performed By: #### A ROSIO, BMP, ADIFF, CBC, GFR ####[address] [address] Electrolyte Balance 5.0 mEq/L Normal 4.0-15.0 [facility] ([place]) Comment on above: Performed By: #### A ROSIO, BMP, ADIFF, CBC, GFR ####[address] [address] Glucose [Mass/Vol] 140 mg/dL High 82-115 [facility] ([place]) Comment on above: Performed By: #### A ROSIO, BMP, ADIFF, CBC, GFR ####[address] [address] Potassium [Moles/Vol] 3.6 mmol/L Normal 3.5-5.0 [facility] ([place]) Comment on above: Performed By: #### A ROSIO, BMP, ADIFF, CBC, GFR ####[place] [address] Sodium [Moles/Vol] 143 mmol/L Normal 136-145 [facility] ([place]) Comment on above: Performed By: #### A ROSIO, BMP, ADIFF, CBC, GFR ####[place] [address] Urea nitrogen [Mass/Vol] 11.0 mg/dL Normal 8.0-22.0 [facility] ([place]) Comment on above: Performed By: #### A ROSIO, BMP, ADIFF, CBC, GFR ####[place] [address] CBCon 03-24-2023 Erythrocyte distribution width (RBC) [Ratio] 15.1 % Normal 11.5-15.5 [facility] ([place] Comment on above: Performed By: #### C JORGE LUIS OLIVARES, ANEU ####[place] [address] Hematocrit (Bld) [Volume fraction] 24.8 % Low 40.0-52.0 [facility] ([place]) Comment on above: Performed By: #### C JORGE LUIS OLIVARES, ANEU ####[place] [address] Hgb 8.2 G/dL Low 13.0-17.5 [facility] ([place] Comment on above: Performed By: #### C JORGE LUIS OLIVARES, ANEU ####[place] [address] MCH (RBC) [Entitic mass] 31.2 pg Normal 27.0-33.0 [facility] ([place] Comment on above: Performed By: #### C JORGE LUIS OLIVARES, ANEU ####[place] [address] MCHC 33.0 G/dL Normal 32.0-36.0 [facility] ([place] Comment on above: Performed By: #### C JORGE LUIS OLIVARES, ANEU ####[place] [address] MCV (RBC) [Entitic vol] 94.8 fL Normal 81.0-100.0 [facility] ([place]) Comment on above: Performed By: #### C JORGE LUIS OLIVARES ANEU ####[address] [address] Platelet 183 10 3/mcL Normal 150-450 [facility] ([place]) Comment on above: Performed By: #### C JORGE LUIS OLIVARES ANEU ####[address] [address] Platelet mean volume (Bld) [Entitic vol] 7.7 fL Normal 6.4-10.5 [facility] ([place]) Comment on above: Performed By: #### C JORGE LUIS OLIVARES ANEU ####[address] [address] RBC 2.61 10 6/mcL Low 4.50-6.00 [facility] ([place] Comment on above: Performed By: #### C JORGE LUIS OLIVARES ANEU ####[address] [address] WBC 11.2 10 3/mcL High 4.5-10.8 [facility] ([place]) Comment on above: Performed By: #### C JORGE LUIS OLIVARES ANEU ####[address] [address] Erythrocyte distribution width (RBC) [Ratio] 14.8 % Normal 11.5-15.5 [facility] ([place]) Comment on above: Performed By: #### C JORGE LUIS OLIVARES ANEU ####[address] [address] Hematocrit (Bld) [Volume fraction] 24.4 % Low 40.0-52.0 [facility] ([place] Comment on above: Performed By: #### C JORGE LUIS OLIVARES ANEU ####[address] [address] Hgb 8.2 G/dL Low 13.0-17.5 [facility] ([place] Comment on above: Performed By: #### JORGE LUIS VELÁZQUEZ ANEU ####[address] [address] MCH (RBC) [Entitic mass] 31.9 pg Normal 27.0-33.0 [facility] ([place] Comment on above: Performed By: #### C JORGE LUIS OLIVARES ANEU ####[place] [address] MCHC 33.5 G/dL Normal 32.0-36.0 [facility] ([place] Comment on above: Performed By: #### C JORGE LUIS OLIVARES, ANEU ####[place] [address] MCV (RBC) [Entitic vol] 95.4 fL Normal 81.0-100.0 [facility] ([place]) Comment on above: Performed By: #### C JORGE LUIS OLIVARES ANEU ####[place] [address] Platelet 191 10 3/mcL Normal 150-450 [facility] ([place]) Comment on above: Performed By: #### C JORGE LUIS OLIVARES ANEU ####[place] [address] Platelet mean volume (Bld) [Entitic vol] 7.8 fL Normal 6.4-10.5 [facility] ([place] Comment on above: Performed By: #### C JORGE LUIS OLIVARES, ANEU ####[place] [address] RBC 2.56 10 6/mcL Low 4.50-6.00 [facility] ([place] Comment on above: Performed By: #### C JORGE LUIS OLIVARES, ANEU ####[place] [address] WBC 12.4 10 3/mcL High 4.5-10.8 [facility] ([place] Comment on above: Performed By: #### C JORGE LUIS OLIVARES, ANEU ####[place] [address] Erythrocyte distribution width (RBC) [Ratio] 14.3 % Normal 11.5-15.5 [facility] ([place] Comment on above: Performed By: #### A ROSIO, BMP, ADIFF, CBC, GFR ####[place] [address] Hematocrit (Bld) [Volume fraction] 24.2 % Low 40.0-52.0 [facility] ([place] Comment on above: Performed By: #### A ROSIO, BMP, ADIFF, CBC, GFR ####[place] [address] Hgb 8.1 G/dL Low 13.0-17.5 [facility] ([place] Comment on above: Performed By: #### A ROSIO, BMP, ADIFF, CBC, GFR ####[place] [address] MCH (RBC) [Entitic mass] 31.8 pg Normal 27.0-33.0 [facility] ([place] Comment on above: Performed By: #### A ROSIO, BMP, ADIFF, CBC, GFR ####[place] [address] MCHC 33.3 G/dL Normal 32.0-36.0 [facility] ([place] Comment on above: Performed By: #### A ROSIO, BMP, ADIFF, CBC, GFR ####[place] [address] MCV (RBC) [Entitic vol] 95.4 fL Normal 81.0-100.0 [facility] ([place] Comment on above: Performed By: #### A ROSIO, BMP, ADIFF, CBC, GFR ####[place] [address] Platelet 205 10 3/mcL Normal 150-450 [facility] [place] ([place]) Comment on above: Performed By: #### A ROSIO, BMP, ADIFF, CBC, GFR ####[place] [address] Platelet mean volume (Bld) [Entitic vol] 7.9 fL Normal 6.4-10.5 [facility] ([place]) Comment on above: Performed By: #### A ROSIO, BMP, ADIFF, CBC, GFR ####[place] [address] RBC 2.53 10 6/mcL Low 4.50-6.00 [facility] [place] ([place]) Comment on above: Performed By: #### A ROSIO, BMP, ADIFF, CBC, GFR ####[address] [address] WBC 14.5 10 3/mcL High 4.5-10.8 [facility] [place] ([place]) Comment on above: Performed By: #### A ROSIO, BMP, ADIFF, CBC, GFR ####[place] [address] CT ANGIO GI BLEEDon 03-24-[address] ANGIO GI BLEED Normal [facility] [place] ([place]) HHon 03-24-2023 Hematocrit (Bld) [Volume fraction] 23.7 % Low 40.0-52.0 [facility] [place] ([place] Comment on above: Performed By: #### H H ####[place] [address] Hgb 7.9 G/dL Low 13.0-17.5 [facility] [place] ([place] Comment on above: Performed By: #### H H ####[place] [address] LABORATORYOrdered By: SYSTEM SYSTEM on 03-24-2023 Basophils (Bld) [#/Vol] 0.1 103/mcL Normal 0.0 - 0.3 10^3/mcL AH Workflow SS Basophils/100 WBC (Bld) 0.5 % Normal 0.0 - 2.5 % AH Workflow SS Eosinophils (Bld) [#/Vol] 0.2 103/mcL Normal 0.0 - 0.7 10^3/mcL AH Workflow SS Eosinophils/100 WBC (Bld) 1.4 % Normal 0.0 - 6.0 % AH Workflow SS Erythrocyte distribution width (RBC) [Ratio] 15.0 % Normal 11.5 - 15.5 % AH Workflow SS Lymphocytes (Bld) [#/Vol] 1.0 103/mcL Normal 0.9 - 4.3 10^3/mcL AH Workflow SS Lymphocytes/100 WBC (Bld) 8.0 % Low 20.0 - 40.0 % AH Workflow SS MCH (RBC) [Entitic mass] 32.2 pg Normal 27.0 - 33.0 pg AH Workflow SS MCHC 34.7 G/dL Normal 32.0 - 36.0 G/dL AH Workflow SS MCV (RBC) [Entitic vol] 93.0 fL Normal 81.0 - 100.0 fL AH Workflow SS Monocytes (Bld) [#/Vol] 1.4 103/mcL Normal 0.1 - 1.4 10^3/mcL AH Workflow SS Monocytes/100 WBC (Bld) 11.4 % Normal 2.0 - 13.0 % AH Workflow SS Neutrophils (Bld) [#/Vol] 9.9 103/mcL High 2.3 - 8.1 10^3/mcL AH Workflow SS Neutrophils/100 WBC (Bld) 78.7 % High 50.0 - 75.0 % AH Workflow SS Platelet mean volume (Bld) [Entitic vol] 7.6 fL Normal 6.4 - 10.5 fL AH Workflow SS Platelets (Bld) [#/Vol] 174 103/mcL Normal 150 - 450 10^3/mcL AH Workflow SS RBC (Bld) [#/Vol] 2.50 106/mcL Low 4.50 - 6.00 10^6/mcL AH Workflow SS WBC (Bld) [#/Vol] 12.6 103/mcL High 4.5 - 10.8 10^3/mcL AH Workflow SS LABORATORYOrdered By: Jodi Day on 03-24-2023 ABO and Rh group Nom (Bld) Blood group O Rh(D) positive Invalid Interpretation Code AH BB Auto SS Blood group antibody screen Ql Negative ABSC (03/24/23 9:27 AM) Normal BB Auto SS RBC Product Ready RBC Ready for Pickup (03/24/23 9:13 AM) Normal BB Manual SS MGOrdered By: SYSTEM SYSTEM on 03-24-2023 Magnesium [Mass/Vol] 2.0 mg/dL Normal 1.6-2.4 AH A DM SS Comment on above: Performed By: #### M G ####[address] [address] RBC (Product)on 03-24-2023 RBC Product Ready RBC Ready for Pickup Normal [facility] [place] ([place] Comment on above: Performed By: #### R BCP ####[address] [address] .Auto Diffon 03-23-2023 Basophil, Absolute 0.1 10 3/mcL Normal 0.0-0.3 [facility] ([place]) Comment on above: Performed By: #### P RO, ANEU, CBC, GFR, CMP, ADIFF ####[address] [address] Basophils/100 WBC (Bld) 0.9 % Normal 0.0-2.5 [facility] [place] ([place] Comment on above: Performed By: #### P RO, ANEU, CBC, GFR, CMP, ADIFF ####[address] [address] Eosinophil, Absolute 0.2 10 3/mcL Normal 0.0-0.7 [facility] ([place]) Comment on above: Performed By: #### P RO, ANEU, CBC, GFR, CMP, ADIFF ####[address] [address] Eosinophils/100 WBC (Bld) 1.9 % Normal 0.0-6.0 [facility] [place] ([place] Comment on above: Performed By: #### P RO, ANEU, CBC, GFR, CMP, ADIFF ####[address] [address] Lymphocyte, Absolute 1.0 10 3/mcL Normal 0.9-4.3 [facility] ([place] Comment on above: Performed By: #### P RO, ANEU, CBC, GFR, CMP, ADIFF ####[address] [address] Lymphocytes/100 WBC (Bld) 10.8 % Low 20.0-40.0 [facility] [place] ([place] Comment on above: Performed By: #### P RO, ANEU, CBC, GFR, CMP, ADIFF ####[address] [address] Monocyte, Absolute 0.8 10 3/mcL Normal 0.1-1.4 [facility] ([place]) Comment on above: Performed By: #### P RO, ANEU, CBC, GFR, CMP, ADIFF ####[address] [address] Monocytes/100 WBC (Bld) 8.9 % Normal 2.0-13.0 [facility] [place] ([place] Comment on above: Performed By: #### P RO, ANEU, CBC, GFR, CMP, ADIFF ####[address] [address] Neutrophils/100 WBC (Bld) 77.5 % High 50.0-75.0 [facility] [place] ([place] Comment on above: Performed By: #### P RO, ANEU, CBC, GFR, CMP, ADIFF ####[address] [address] .GFRon 03-23-2023 GFR >60 Normal [facility] ([place]) Comment on above: Result Comment: GFR Population mean for , Non- Americans Ages 20-29 = 116 mL/min/1.73 sq.m. Ages 30-39 = 107 mL/min/1.73 sq.m. Ages 40-49 = 99 mL/min/1.73 sq.m. Ages 50-59 = 93 mL/min/1.73 sq.m. Ages 60-69 = 85 mL/min/1.73 sq.m. Ages 70+ = 75 mL/min/1.73 sq.m.Chronic Kidney Disease: Less than 60 mL/min/1.73 square metersEnd Stage Renal Disease: Less than 15 mL/min/1.73 square meters Performed By: #### P RO, ANEU, CBC, GFR, CMP, ADIFF ####[address] [address] GFR Non- >60 Normal [facility] [place] ([place] Comment on above: Result Comment: GFR Population mean for , Non- Americans Ages 20-29 = 116 mL/min/1.73 sq.m. Ages 30-39 = 107 mL/min/1.73 sq.m. Ages 40-49 = 99 mL/min/1.73 sq.m. Ages 50-59 = 93 mL/min/1.73 sq.m. Ages 60-69 = 85 mL/min/1.73 sq.m. Ages 70+ = 75 mL/min/1.73 sq.m.Chronic Kidney Disease: Less than 60 mL/min/1.73 square metersEnd Stage Renal Disease: Less than 15 mL/min/1.73 square meters Performed By: #### P RO, ANEU, CBC, GFR, CMP, ADIFF ####[place] [address] .NEUABSon 03-23-2023 Neutrophil, Absolute 7.0 10 3/mcL Normal 2.3-8.1 [facility] ([place]) Comment on above: Performed By: #### P RO, ANEU, CBC, GFR, CMP, ADIFF ####[place] [address] CBCon 03-23-2023 Erythrocyte distribution width (RBC) [Ratio] 14.1 % Normal 11.5-15.5 [facility] [place] ([place] Comment on above: Performed By: #### P RO, ANEU, CBC, GFR, CMP, ADIFF ####[place] [address] Hematocrit (Bld) [Volume fraction] 37.4 % Low 40.0-52.0 [facility] [place] ([place] Comment on above: Performed By: #### P RO, ANEU, CBC, GFR, CMP, ADIFF ####[place] [address] Hgb 12.7 G/dL Low 13.0-17.5 [facility] [place] ([place] Comment on above: Performed By: #### P RO, ANEU, CBC, GFR, CMP, ADIFF ####[place] [address] MCH (RBC) [Entitic mass] 32.0 pg Normal 27.0-33.0 [facility] [place] ([place] Comment on above: Performed By: #### P RO, ANEU, CBC, GFR, CMP, ADIFF ####[place] [address] MCHC 33.9 G/dL Normal 32.0-36.0 [facility] [place] ([place] Comment on above: Performed By: #### P RO, ANEU, CBC, GFR, CMP, ADIFF ####[place] [address] MCV (RBC) [Entitic vol] 94.4 fL Normal 81.0-100.0 [facility] [place] ([place] Comment on above: Performed By: #### P RO, ANEU, CBC, GFR, CMP, ADIFF ####[place] [address] Platelet 211 10 3/mcL Normal 150-450 [facility] [place] ([place] Comment on above: Performed By: #### P RO, ANEU, CBC, GFR, CMP, ADIFF ####[place] [address] Platelet mean volume (Bld) [Entitic vol] 7.6 fL Normal 6.4-10.5 [facility] [place] ([place] Comment on above: Performed By: #### P RO, ANEU, CBC, GFR, CMP, ADIFF ####[place] [address] RBC 3.97 10 6/mcL Low 4.50-6.00 [facility] [place] ([place] Comment on above: Performed By: #### P RO, ANEU, CBC, GFR, CMP, ADIFF ####[place] [address] WBC 9.0 10 3/mcL Normal 4.5-10.8 [facility] [place] ([place] Comment on above: Performed By: #### P RO, ANEU, CBC, GFR, CMP, ADIFF ####[place] [address] CMPon 03-23-2023 Albumin Level 2.9 G/dL Low 3.2-4.8 [facility] [place] ([place] Comment on above: Performed By: #### P RO, ANEU, CBC, GFR, CMP, ADIFF ####[place] [address] Albumin/Globulin [Mass ratio] 1.2 {ratio} Normal 0.9-1.6 [facility] [place] ([place] Comment on above: Performed By: #### P RO, ANEU, CBC, GFR, CMP, ADIFF ####[place] [address] ALP [Catalytic activity/Vol] 65 U/L Normal 38-126 [facility] [place] ([place] Comment on above: Performed By: #### P RO, ANEU, CBC, GFR, CMP, ADIFF ####[address] [address] ALT [Catalytic activity/Vol] 13 U/L Normal 12-55 [facility] [place] ([place] Comment on above: Performed By: #### P RO, ANEU, CBC, GFR, CMP, ADIFF ####[address] [address] AST [Catalytic activity/Vol] 13 U/L Normal 8-34 [facility] [place] ([place] Comment on above: Performed By: #### P RO, ANEU, CBC, GFR, CMP, ADIFF ####[place] [id number] Bili Total 0.50 mg/dL Normal 0.20-1.20 [facility] [place] ([place] Comment on above: Result Comment: Use of this assay is not recommended for patients undergoing treatment with eltrombopag due to the potential for falsely elevated results. Performed By: #### P RO, ANEU, CBC, GFR, CMP, ADIFF ####[place] [address] BUN/Creatinine Ratio 14.0 ratio Normal 10.0-22.0 [facility] ([place]) Comment on above: Performed By: #### P RO, ANEU, CBC, GFR, CMP, ADIFF ####[place] [address] Calcium [Mass/Vol] 8.8 mg/dL Normal 8.7-10.4 [facility] ([place]) Comment on above: Performed By: #### P RO, ANEU, CBC, GFR, CMP, ADIFF ####[address] [address] Chloride [Moles/Vol] 108 mmol/L Normal 98-110 [facility] ([place]) Comment on above: Performed By: #### P RO, ANEU, CBC, GFR, CMP, ADIFF ####[place] [id number] CO2 [Moles/Vol] 31 mmol/L Normal 22-32 [facility] [place] ([place] Comment on above: Performed By: #### P RO, ANEU, CBC, GFR, CMP, ADIFF ####[address] [address] Creatinine [Mass/Vol] 0.93 mg/dL Normal 0.60-1.40 [facility] ([place]) Comment on above: Performed By: #### P RO, ANEU, CBC, GFR, CMP, ADIFF ####[place] [id number] Electrolyte Balance 2.0 mEq/L Low 4.0-15.0 [facility] ([place]) Comment on above: Performed By: #### P RO, ANEU, CBC, GFR, CMP, ADIFF ####[place] [address] Globulin 2.4 G/dL Normal 1.5-3.8 [facility] [place] ([place] Comment on above: Performed By: #### P RO, ANEU, CBC, GFR, CMP, ADIFF ####[place] [address] Glucose [Mass/Vol] 107 mg/dL Normal 82-115 [facility] ([place]) Comment on above: Performed By: #### P RO, ANEU, CBC, GFR, CMP, ADIFF ####[address] [address] Potassium [Moles/Vol] 3.6 mmol/L Normal 3.5-5.0 [facility] ([place]) Comment on above: Result Comment: Spec imen slightly hemolyzed. Performed By: #### P RO, ANEU, CBC, GFR, CMP, ADIFF ####[address] [address] Sodium [Moles/Vol] 141 mmol/L Normal 136-145 [facility] ([place]) Comment on above: Performed By: #### P RO, ANEU, CBC, GFR, CMP, ADIFF ####[address] [address] Total Protein 5.3 G/dL Low 5.7-8.2 [facility] [place] ([place] Comment on above: Result Comment: No te - New Reference Range in effect 19 Performed By: #### P RO, ANEU, CBC, GFR, CMP, ADIFF ####[place] [address] [place] [address] Urea nitrogen [Mass/Vol] 13.0 mg/dL Normal 8.0-22.0 [facility] [place] ([place] Comment on above: Performed By: #### P RO, ANEU, CBC, GFR, CMP, ADIFF ####[place] [address] [place] [address] LABORATORYOrdered By: Profound SYSTEM on 03-23-2023 Albumin BCP dye [Mass/Vol] 2.9 G/dL Low 3.2 - 4.8 G/dL ADM SS Albumin/Globulin [Mass ratio] 1.2 {ratio} Normal 0.9 - 1.6 ratio AH ADM SS ALP [Catalytic activity/Vol] 65 U/L Normal 38 - 126 U/L ADM SS ALT No additional P-5'-P [Catalytic activity/Vol] 13 U/L Normal 12 - 55 U/L ADM SS AST [Catalytic activity/Vol] 13 U/L Normal 8 - 34 U/L ADM SS Bilirubin [Mass/Vol] 0.50 mg/dL Normal 0.20 - 1.20 mg/dL ADM SS Comment on above: Interpretive Data: U se of this assay is not recommended for patients undergoing treatment with eltrombopag due to the potential for falsely elevated results. Globulin 2.4 G/dL Normal 1.5 - 3.8 G/dL ADM SS Protein [Mass/Vol] 5.3 G/dL Low 5.7 - 8.2 G/dL ADM SS Comment on above: Interpretive Data: * *Note - New Reference Range in effect 19 LABORATORYOrdered By: Jt Do on 03-23-2023 PT Coag (PPP) [Time] 15.2 s High 9.0 - 1 4.2 seconds [facility] SS Comment on above: Interpretive Data: E ffective 09/28/07, Protime results may be affected by some antibiotics (i.e. Ciprofloxacin, Azithromycin, Bactrim) which may potentiate the action of oral anticoagulants, with further increases in Protime/INR. PT International Ratio 1.3 ratio Invalid Interpretation Code [facility] SS Comment on above: Interpretive Data: T he [employer] (CHEST, 1991, 102:312S-25S) recommended therapeutic range for oral anticoagulant therapy is: LOW RISK: Prophylaxis of venous thrombosis INR: 2.0-3.0 Treatment of pulmonary embolism 2.0-3.0 Prevention of systemic embolism 2.0-3.0 HIGH RISK: Mechanical prosthetic valves 2.5-3.5 PROon 03-23-2023 INR Coag (PPP) [Relative time] 1.3 {INR} Normal [facility] [place] ([place] Comment on above: Result Comment: [employer] (CHEST, 1991, 102:[id number])recommended therapeutic range for oral anticoagulant therapy is:LOW RISK: Prophylaxis of venous thrombosis INR: 2.0-3.0 Treatment of pulmonary embolism 2.0-3.0 Prevention of systemic embolism 2.0-3.0HIGH RISK: Mechanical prosthetic valves 2.5-3.5 Performed By: #### P RO, ANEU, CBC, GFR, CMP, ADIFF ####[place] [id number] [place] [address] PT Coag (PPP) [Time] 15.2 s High 9.0-14.2 [facility] ([place]) Comment on above: Result Comment: Effe ctive 09/28/07, Protime results may be affected by some antibiotics (i.e. Ciprofloxacin, Azithromycin, Bactrim) which may potentiate the action of oral anticoagulants, with further increases in Protime/INR. Performed By: #### P RO, ANEU, CBC, GFR, CMP, ADIFF ####[address] [address] XR ABDOMEN 2 VIEWS W/ DECUB/ ERECTon 03-23-2023 XR ABDOMEN 2 VIEWS W/ DECUB/ERECT Normal [facility] [place] ([place] SHIGAon 03-17-2023 SHIGA Normal [facility] [place] ([place]) CSTon 03-16-2023 [facility] [facility] ([place]) No Panel Informationon 03-12 Culture Stool Normal stool lyudmila p resent. Salmonella: Negative Shigella: Negative Campylobacter: Negative [facility] Work Phone: Comment on above: Requests for alterna tive pathogens including Yersinia, E. coli 0157, C. difficile toxin, Rotavirus, Giardia and parasites require specific requests. .GFRon 03-05-2023 GFR 76 ml/min/1.73sqm Normal [facility] [place] ([place] Comment on above: Result Comment: GFR Population mean for , Non- Americans Ages 20-29 = 116 mL/min/1.73 sq.m. Ages 30-39 = 107 mL/min/1.73 sq.m. Ages 40-49 = 99 mL/min/1.73 sq.m. Ages 50-59 = 93 mL/min/1.73 sq.m. Ages 60-69 = 85 mL/min/1.73 sq.m. Ages 70+ = 75 mL/min/1.73 sq.m.Chronic Kidney Disease: Less than 60 mL/min/1.73 square metersEnd Stage Renal Disease: Less than 15 mL/min/1.73 square meters Performed By: #### Evon Stoll, GFR, BMP ####[address] [place], [place] [address] GFR Non- 62 ml/min/1.73sqm Normal [facility] [place] ([place] Comment on above: Result Comment: GFR Population mean for , Non- Americans Ages 20-29 = 116 mL/min/1.73 sq.m. Ages 30-39 = 107 mL/min/1.73 sq.m. Ages 40-49 = 99 mL/min/1.73 sq.m. Ages 50-59 = 93 mL/min/1.73 sq.m. Ages 60-69 = 85 mL/min/1.73 sq.m. Ages 70+ = 75 mL/min/1.73 sq.m.Chronic Kidney Disease: Less than 60 mL/min/1.73 square metersEnd Stage Renal Disease: Less than 15 mL/min/1.73 square meters Performed By: #### Evon Stoll, GFR, BMP ####[address] [place], [place] [address] BMPon 03-05-2023 BUN/Creatinine Ratio 9 ratio Normal 7-27 [facility] ([place]) Comment on above: Performed By: #### M G, GFR, BMP ####[address] [place], [place] [address] Calcium [Mass/Vol] 8.8 mg/dL Normal 8.4-10.2 [facility] ([place]) Comment on above: Performed By: #### Evon G, GFR, BMP ####[address] [place], [place] [address] Chloride [Moles/Vol] 103 mmol/L Normal 98-107 [facility] ([place]) Comment on above: Performed By: #### Evon G, GFR, BMP ####[address] [place], [place] [address] CO2 [Moles/Vol] 28 mmol/L Normal 23-31 [facility] [place] ([place] Comment on above: Performed By: #### Evon G, GFR, BMP ####[address] [place], [place] [address] Creatinine [Mass/Vol] 1.12 mg/dL Normal 0.70-1.30 [facility] ([place]) Comment on above: Performed By: #### Evon Stoll, GFR, BMP ####[address] [place], [place] [address] Electrolyte Balance 9.0 mEq/L Normal 4.0-15.0 [facility] ([place] Comment on above: Performed By: #### Evon G, GFR, BMP ####[address] [place], [place] [address] Glucose [Mass/Vol] 83 mg/dL Normal 83-110 [facility] ([place]) Comment on above: Performed By: #### Evon G, GFR, BMP ####[address] [place], [place] [address] Potassium [Moles/Vol] 3.9 mmol/L Normal 3.5-5.1 [facility] ([place]) Comment on above: Performed By: #### Evon G, GFR, BMP ####[address] [place], [place] [address] Sodium [Moles/Vol] 140 mmol/L Normal 136-145 [facility] ([place]) Comment on above: Performed By: #### M G, GFR, BMP ####[address] [place], [place] [address] Urea nitrogen [Mass/Vol] 10 mg/dL Normal 7-18 [facility] [place] ([place] Comment on above: Performed By: #### M G, GFR, BMP ####[address] [place], [place] [address] MGon 03-05-2023 Magnesium [Mass/Vol] 2.0 mg/dL Normal 1.8-2.4 [facility] ([place]) Comment on above: Performed By: #### M G, GFR, BMP ####[address] [place], [place] [address] .Auto Diffon 02-25-2023 Basophil, Absolute 0.1 10 3/mcL Normal 0.0-0.2 [facility] ([place]) Comment on above: Performed By: #### C MP, PBNP, GFR, CBC, ADIFF, CK, ANEU ####[address] [place], [place] [address] Basophils/100 WBC (Bld) 0.8 % Normal 0.0-2.5 [facility] [place] ([place] Comment on above: Performed By: #### C MP, PBNP, GFR, CBC, ADIFF, CK, ANEU ####[address] [place], [place] [address] Eosinophil, Absolute 0.3 10 3/mcL Normal 0.0-0.4 [facility] ([place] Comment on above: Performed By: #### C MP, PBNP, GFR, CBC, ADIFF, CK, ANEU ####[address] [place], [place] [address] Eosinophils/100 WBC (Bld) 3.2 % Normal 0.0-7.0 [facility] [place] ([place] Comment on above: Performed By: #### C MP, PBNP, GFR, CBC, ADIFF, CK, ANEU ####[address] [place], [place] [address] Lymphocyte, Absolute 0.9 10 3/mcL Normal 0.8-3.9 [facility] ([place] Comment on above: Performed By: #### C MP, PBNP, GFR, CBC, ADIFF, CK, ANEU ####[address] [place], [place] [address] Lymphocytes/100 WBC (Bld) 9.6 % Low 10.0-50.0 [facility] [place] ([place] Comment on above: Performed By: #### C MP, PBNP, GFR, CBC, ADIFF, CK, ANEU ####[address] [place], [place] [address] Monocyte, Absolute 0.8 10 3/mcL Normal 0.2-1.0 [facility] ([place]) Comment on above: Performed By: #### C MP, PBNP, GFR, CBC, ADIFF, CK, ANEU ####[address] [place], [place] [address] Monocytes/100 WBC (Bld) 8.8 % Normal 1.7-13.0 [facility] [place] ([place] Comment on above: Performed By: #### C MP, PBNP, GFR, CBC, ADIFF, CK, ANEU ####[address] [place], [place] [address] Neutrophils/100 WBC (Bld) 77.6 % Normal 37.0-80.0 [facility] [place] ([place] Comment on above: Performed By: #### C MP, PBNP, GFR, CBC, ADIFF, CK, ANEU ####[address] [place], [place] [address] .GFRon 02-25-2023 GFR 73 ml/min/1.73sqm Normal [facility] [place] ([place] Comment on above: Result Comment: GFR Population mean for , Non- Americans Ages 20-29 = 116 mL/min/1.73 sq.m. Ages 30-39 = 107 mL/min/1.73 sq.m. Ages 40-49 = 99 mL/min/1.73 sq.m. Ages 50-59 = 93 mL/min/1.73 sq.m. Ages 60-69 = 85 mL/min/1.73 sq.m. Ages 70+ = 75 mL/min/1.73 sq.m.Chronic Kidney Disease: Less than 60 mL/min/1.73 square metersEnd Stage Renal Disease: Less than 15 mL/min/1.73 square meters Performed By: #### C MP, PBNP, GFR, CBC, ADIFF, CK, ANEU ####[address] [place], [place] [address] GFR Non- 61 ml/min/1.73sqm Normal [facility] [place] ([place] Comment on above: Result Comment: GFR Population mean for , Non- Americans Ages 20-29 = 116 mL/min/1.73 sq.m. Ages 30-39 = 107 mL/min/1.73 sq.m. Ages 40-49 = 99 mL/min/1.73 sq.m. Ages 50-59 = 93 mL/min/1.73 sq.m. Ages 60-69 = 85 mL/min/1.73 sq.m. Ages 70+ = 75 mL/min/1.73 sq.m.Chronic Kidney Disease: Less than 60 mL/min/1.73 square metersEnd Stage Renal Disease: Less than 15 mL/min/1.73 square meters Performed By: #### C MP, PBNP, GFR, CBC, ADIFF, CK, ANEU ####[address] [place], [place] [address] .NEUABSon 02-25-2023 Neutrophil, Absolute 7.3 10 3/mcL High 2.9-6.2 [facility] ([place] Comment on above: Performed By: #### C MP, PBNP, GFR, CBC, ADIFF, CK, ANEU ####[address] [place], [place] [address] CBCon 02-25-2023 Erythrocyte distribution width (RBC) [Ratio] 13.9 % Normal 11.5-14.5 [facility] [place] ([place] Comment on above: Performed By: #### C MP, PBNP, GFR, CBC, ADIFF, CK, ANEU ####[address] [place], [place] [address] Hematocrit (Bld) [Volume fraction] 40.6 % Low 42.0-52.0 [facility] [place] ([place] Comment on above: Performed By: #### C MP, PBNP, GFR, CBC, ADIFF, CK, ANEU ####[address] [place], [place] [address] Hgb 13.5 G/dL Low 14.0-18.0 [facility] [place] ([place] Comment on above: Performed By: #### C MP, PBNP, GFR, CBC, ADIFF, CK, ANEU ####[address] [place], [place] [address] MCH (RBC) [Entitic mass] 31.2 pg Normal 27.0-31.2 [facility] [place] ([place] Comment on above: Performed By: #### C MP, PBNP, GFR, CBC, ADIFF, CK, ANEU ####[address] [place], [place] [address] MCHC 33.4 G/dL Normal 31.8-35.4 [facility] [place] ([place] Comment on above: Performed By: #### C MP, PBNP, GFR, CBC, ADIFF, CK, ANEU ####[address] [place], [place] [address] MCV (RBC) [Entitic vol] 93.7 fL Normal 80.0-94.0 [facility] [place] ([place] Comment on above: Performed By: #### C MP, PBNP, GFR, CBC, ADIFF, CK, ANEU ####[address] [place], [place] [address] Platelet 242 10 3/mcL Normal 130-400 [facility] [place] ([place] Comment on above: Performed By: #### C MP, PBNP, GFR, CBC, ADIFF, CK, ANEU ####[address] [place], [place] [address] Platelet mean volume (Bld) [Entitic vol] 7.6 fL Normal 7.4-10.4 [facility] [place] ([place] Comment on above: Performed By: #### C MP, PBNP, GFR, CBC, ADIFF, CK, ANEU ####[address] [place] [id number] RBC 4.33 10 6/mcL Normal 4.04-6.13 [facility] [place] ([place] Comment on above: Performed By: #### C MP, PBNP, GFR, CBC, ADIFF, CK, ANEU ####[address] [place], [place] [address] WBC 9.4 10 3/mcL Normal 4.6-10.8 [facility] ([place]) Comment on above: Performed By: #### C MP, PBNP, GFR, CBC, ADIFF, CK, ANEU ####Al[address] [place], [place] [address] CKon 02-25-2023 CK [Catalytic activity/Vol] 40 U/L Normal 39-308 [facility] ([place]) Comment on above: Performed By: #### C MP, PBNP, GFR, CBC, ADIFF, CK, ANEU ####Al[address] [place], [place] [address] CMPon 02-25-2023 Albumin Level 3.3 G/dL Low 3.4-4.8 [facility] ([place]) Comment on above: Performed By: #### C MP, PBNP, GFR, CBC, ADIFF, CK, ANEU ####Alison [id number] [place], [place] [address] Albumin/Globulin [Mass ratio] 1.1 {ratio} Normal 1.1-2.5 [facility] ([place]) Comment on above: Performed By: #### C MP, PBNP, GFR, CBC, ADIFF, CK, ANEU ####[id number] [place], [place] [address] ALP [Catalytic activity/Vol] 79 U/L Normal 40-135 [facility] ([place]) Comment on above: Performed By: #### C MP, PBNP, GFR, CBC, ADIFF, CK, ANEU ####Alison [id number] [place], [place] [address] ALT [Catalytic activity/Vol] 23 U/L Normal 16-63 [facility] ([place]) Comment on above: Performed By: #### C MP, PBNP, GFR, CBC, ADIFF, CK, ANEU ####Alison [address] [place], [place] [address] AST [Catalytic activity/Vol] 11 U/L Normal 10-40 [facility] ([place]) Comment on above: Performed By: #### C MP, PBNP, GFR, CBC, ADIFF, CK, ANEU ####[address] [place], [place] [address] Bili Total 0.8 mg/dL Normal 0.2-1.0 [facility] ([place]) Comment on above: Result Comment: Use of this assay is not recommended for patients undergoing treatment with eltrombopag due to the potential for falsely elevated results. Performed By: #### C MP, PBNP, GFR, CBC, ADIFF, CK, ANEU ####[address] [place], [place] [address] BUN/Creatinine Ratio 9 ratio Normal 7-27 [facility] ([place]) Comment on above: Performed By: #### C MP, PBNP, GFR, CBC, ADIFF, CK, ANEU ####[address] [place], [place] [address] Calcium [Mass/Vol] 9.0 mg/dL Normal 8.4-10.2 [facility] ([place]) Comment on above: Performed By: #### C MP, PBNP, GFR, CBC, ADIFF, CK, ANEU ####[address] [place], [place] [address] Chloride [Moles/Vol] 105 mmol/L Normal 98-107 [facility] ([place]) Comment on above: Performed By: #### C MP, PBNP, GFR, CBC, ADIFF, CK, ANEU ####[place] [address] [place], [place] [address] CO2 [Moles/Vol] 27 mmol/L Normal 23-31 [facility] ([place] Comment on above: Performed By: #### C MP, PBNP, GFR, CBC, ADIFF, CK, ANEU ####[address] [place], [place] [address] Creatinine [Mass/Vol] 1.15 mg/dL Normal 0.70-1.30 [facility] ([place]) Comment on above: Performed By: #### C MP, PBNP, GFR, CBC, ADIFF, CK, ANEU ####[address] [place], [place] [address] Electrolyte Balance 8.0 mEq/L Normal 4.0-15.0 [facility] ([place]) Comment on above: Performed By: #### C MP, PBNP, GFR, CBC, ADIFF, CK, ANEU ####[address] [place], [place] [address] Globulin 3.0 G/dL Normal [facility] ([place] Comment on above: Performed By: #### C MP, PBNP, GFR, CBC, ADIFF, CK, ANEU ####[address] [place], [place] [address] Glucose [Mass/Vol] 107 mg/dL Normal 83-110 [facility] ([place]) Comment on above: Performed By: #### C MP, PBNP, GFR, CBC, ADIFF, CK, ANEU ####[address] [place], [place] [address] Potassium [Moles/Vol] 4.1 mmol/L Normal 3.5-5.1 [facility] ([place]) Comment on above: Performed By: #### C MP, PBNP, GFR, CBC, ADIFF, CK, ANEU ####[address] [place], [place] [address] Sodium [Moles/Vol] 140 mmol/L Normal 136-145 [facility] ([place]) Comment on above: Performed By: #### C MP, PBNP, GFR, CBC, ADIFF, CK, ANEU ####[address] [place], [place] [address] Total Protein 6.3 G/dL Low 6.4-8.2 [facility] ([place] Comment on above: Performed By: #### C MP, PBNP, GFR, CBC, ADIFF, CK, ANEU ####[address] [place], [place] [address] Urea nitrogen [Mass/Vol] 10 mg/dL Normal 7-18 [facility] ([place] Comment on above: Performed By: #### C MP, PBNP, GFR, CBC, ADIFF, CK, ANEU ####[address] [place], [place] [address] LABORATORYOrdered By: SYSTEM SYSTEM on 02-25-2023 Albumin BCP dye [Mass/Vol] 3.3 G/dL Low 3.4 - 4.8 G/dL AO ADM SS Albumin/Globulin [Mass ratio] 1.1 {ratio} Normal 1.1 - 2.5 ratio AO ADM SS ALP [Catalytic activity/Vol] 79 U/L Normal 40 - 135 U/L AO ADM SS ALT With P-5'-P [Catalytic activity/Vol] 23 U/L Normal 16 - 63 U/L AO ADM SS AST With P-5'-P [Catalytic activity/Vol] 11 U/L Normal 10 - 40 U/L AO ADM SS Basophil, Absolute 0.1 103/mcL Normal 0.0 - 0.2 10^3/mcL AO Workflow SS Basophils/100 WBC (Bld) 0.8 % Normal 0.0 - 2.5 % AO Workflow SS Bilirubin [Mass/Vol] 0.8 mg/dL Normal 0.2 - 1 .0 mg/dL AO ADM SS Comment on above: Interpretive Data: U se of this assay is not recommended for patients undergoing treatment with eltrombopag due to the potential for falsely elevated results. Calcium [Mass/Vol] 9.0 mg/dL Normal 8.4 - 10. 2 mg/dL AO ADM SS Chloride [Moles/Vol] 105 mmol/L Normal 98 - 10 7 mmol/L AO ADM SS CK [Catalytic activity/Vol] 40 U/L Normal 39 - 308 U/L AO ADM SS CO2 [Moles/Vol] 27 mmol/L Normal 23 - 31 mmol/L AO ADM SS Creatinine [Mass/Vol] 1.15 mg/dL Normal 0.70 - 1.30 mg/dL AO ADM SS Electrolyte Balance 8.0 mEq/L Normal 4.0 - 15 .0 mEq/L AO ADM SS Eosinophil, Absolute 0.3 103/mcL Normal 0.0 - 0 .4 10^3/mcL AO Workflow SS Eosinophils/100 WBC (Bld) 3.2 % Normal 0.0 - 7.0 % AO Workflow SS Erythrocyte distribution width (RBC) [Ratio] 13.9 % Normal 11.5 - 14.5 % AO Workflow SS GFR/1.73 sq M.predicted among blacks MDRD (S/P/Bld) [Vol rate/Area] 73 ml/min/1.73sqm Invalid Interpretation Code AO Chemistry S Comment on above: Interpretive Data: GFR Population mean for , Non- Americans Ages 20-29 = 116 mL/min/1.73 sq.m. Ages 30-39 = 107 mL/min/1.73 sq.m. Ages 40-49 = 99 mL/min/1.73 sq.m. Ages 50-59 = 93 mL/min/1.73 sq.m. Ages 60-69 = 85 mL/min/1.73 sq.m. Ages 70+ = 75 mL/min/1.73 sq.m. Chronic Kidney Disease: Less than 60 mL/min/1.73 square meters End Stage Renal Disease: Less than 15 mL/min/1.73 square meters GFR/1.73 sq M.predicted among non-blacks MDRD (S/P/Bld) [Vol rate/Area] 61 ml/min/1.73sqm Invalid Interpretation Code AO Chemistry S Comment on above: Interpretive Data: GFR Population mean for , Non- Americans Ages 20-29 = 116 mL/min/1.73 sq.m. Ages 30-39 = 107 mL/min/1.73 sq.m. Ages 40-49 = 99 mL/min/1.73 sq.m. Ages 50-59 = 93 mL/min/1.73 sq.m. Ages 60-69 = 85 mL/min/1.73 sq.m. Ages 70+ = 75 mL/min/1.73 sq.m. Chronic Kidney Disease: Less than 60 mL/min/1.73 square meters End Stage Renal Disease: Less than 15 mL/min/1.73 square meters Globulin 3.0 G/dL Invalid Interpretation Code AO ADM SS Glucose [Mass/Vol] 107 mg/dL Normal 83 - 110 mg/dL AO ADM SS Hematocrit (Bld) [Volume fraction] 40.6 % Low 42.0 - 52.0 % AO Workflow SS Hemoglobin (Bld) [Mass/Vol] 13.5 G/dL Low 14.0 - 18.0 G/dL AO Workflow SS Lymphocyte, Absolute 0.9 103/mcL Normal 0.8 - 3 .9 10^3/mcL AO Workflow SS Lymphocytes/100 WBC (Bld) 9.6 % Low 10.0 - 50.0 % AO Workflow SS MCH (RBC) [Entitic mass] 31.2 pg Normal 27.0 - 31.2 pg AO Workflow SS MCHC 33.4 G/dL Normal 31.8 - 35.4 G/dL AO Workflow SS MCV (RBC) [Entitic vol] 93.7 fL Normal 80.0 - 94.0 fL AO Workflow SS Monocyte, Absolute 0.8 103/mcL Normal 0.2 - 1.0 10^3/mcL AO Workflow SS Monocytes/100 WBC (Bld) 8.8 % Normal 1.7 - 13.0 % AO Workflow SS Natriuretic peptide.B prohormone N-Terminal [Mass/Vol] 400 pg/mL Normal 0 - 450 pg/mL AO ADM SS Comment on above: Interpretive Data: N T-proBNP results of less than 300 pg/mL effectively rules out acute congestive heart failure with 99% negative predictive value. Neutrophil, Absolute 7.3 103/mcL High 2.9 - 6 .2 10^3/mcL AO Workflow SS Neutrophils/100 WBC (Bld) 77.6 % Normal 37.0 - 80.0 % AO Workflow SS Platelet mean volume (Bld) [Entitic vol] 7.6 fL Normal 7.4 - 10.4 fL AO Workflow SS Platelets (Bld) [#/Vol] 242 103/mcL Normal 130 - 400 10^3/mcL AO Workflow SS Potassium [Moles/Vol] 4.1 mmol/L Normal 3.5 - 5.1 mmol/L AO ADM SS Protein [Mass/Vol] 6.3 G/dL Low 6.4 - 8.2 G/dL AO ADM SS RBC (Bld) [#/Vol] 4.33 106/mcL Normal 4.04 - 6.13 10^6/mcL AO Workflow SS Sodium [Moles/Vol] 140 mmol/L Normal 136 - 145 mmol/L AO ADM SS Urea nitrogen [Mass/Vol] 10 mg/dL Normal 7 - 18 mg/dL AO ADM SS Urea nitrogen/Creatinine [Mass ratio] 9 ratio Normal 7 - 27 ratio AO ADM SS WBC (Bld) [#/Vol] 9.4 103/mcL Normal 4.6 - 10.8 10^3/mcL AO Workflow SS PBNPon 02-25-2023 Natriuretic peptide B (Bld) [Mass/Vol] 400 pg/mL Normal 0-450 [facility] ([place]) Comment on above: Result Comment: NT-p roBNP results of less than 300 pg/mL effectivelyrules out acute congestive heart failure with 99% negative predictive value. Performed By: #### C MP, PBNP, GFR, CBC, ADIFF, CK, ANEU ####[address] [place], [place] [address] .Auto Diffon 02-14-2023 Basophil, Absolute 0.1 10 3/mcL Normal 0.0-0.3 [facility] ([place]) Comment on above: Performed By: #### A ROSIO, GFR, MG, BMP, ADIFF, CBC ####[address] [address] Basophils/100 WBC (Bld) 0.8 % Normal 0.0-2.5 [facility] ([place]) Comment on above: Performed By: #### A ROSIO, GFR, MG, BMP, ADIFF, CBC ####[address] [address] Eosinophil, Absolute 0.2 10 3/mcL Normal 0.0-0.7 [facility] ([place]) Comment on above: Performed By: #### A ROSIO, GFR, MG, BMP, ADIFF, CBC ####[address] [address] Eosinophils/100 WBC (Bld) 2.6 % Normal 0.0-6.0 [facility] ([place]) Comment on above: Performed By: #### A ROSIO, GFR, MG, BMP, ADIFF, CBC ####[address] [address] Lymphocyte, Absolute 0.9 10 3/mcL Normal 0.9-4.3 [facility] ([place]) Comment on above: Performed By: #### A ROSIO, GFR, MG, BMP, ADIFF, CBC ####[address] [address] Lymphocytes/100 WBC (Bld) 10.5 % Low 20.0-40.0 [facility] ([place]) Comment on above: Performed By: #### A ROSIO, GFR, MG, BMP, ADIFF, CBC ####[address] [address] Monocyte, Absolute 0.6 10 3/mcL Normal 0.1-1.4 [facility] ([place]) Comment on above: Performed By: #### A ROSIO, GFR, MG, BMP, ADIFF, CBC ####[address] [address] Monocytes/100 WBC (Bld) 6.9 % Normal 2.0-13.0 [facility] ([place]) Comment on above: Performed By: #### A ROSIO, GFR, MG, BMP, ADIFF, CBC ####[address] [address] Neutrophils/100 WBC (Bld) 79.2 % High 50.0-75.0 [facility] ([place]) Comment on above: Performed By: #### A ROSIO, GFR, MG, BMP, ADIFF, CBC ####[address] [address] .GFRon 02-14-2023 GFR >60 Normal [facility] ([place]) Comment on above: Result Comment: GFR Population mean for , Non- Americans Ages 20-29 = 116 mL/min/1.73 sq.m. Ages 30-39 = 107 mL/min/1.73 sq.m. Ages 40-49 = 99 mL/min/1.73 sq.m. Ages 50-59 = 93 mL/min/1.73 sq.m. Ages 60-69 = 85 mL/min/1.73 sq.m. Ages 70+ = 75 mL/min/1.73 sq.m.Chronic Kidney Disease: Less than 60 mL/min/1.73 square metersEnd Stage Renal Disease: Less than 15 mL/min/1.73 square meters Performed By: #### A ROSIO, GFR, MG, BMP, ADIFF, CBC ####[address] [address] GFR Non- >60 Normal [facility] ([place] Comment on above: Result Comment: GFR Population mean for , Non- Americans Ages 20-29 = 116 mL/min/1.73 sq.m. Ages 30-39 = 107 mL/min/1.73 sq.m. Ages 40-49 = 99 mL/min/1.73 sq.m. Ages 50-59 = 93 mL/min/1.73 sq.m. Ages 60-69 = 85 mL/min/1.73 sq.m. Ages 70+ = 75 mL/min/1.73 sq.m.Chronic Kidney Disease: Less than 60 mL/min/1.73 square metersEnd Stage Renal Disease: Less than 15 mL/min/1.73 square meters Performed By: #### A ROSIO, GFR, MG, BMP, ADIFF, CBC ####[address] [address] .NEUABSon 02-14-2023 Neutrophil, Absolute 7.1 10 3/mcL Normal 2.3-8.1 [facility] ([place] Comment on above: Performed By: #### A ROSIO, GFR, MG, BMP, ADIFF, CBC ####[address] [address] BMPon 02-14-2023 BUN/Creatinine Ratio 10.2 ratio Normal 10.0-22.0 [facility] ([place]) Comment on above: Performed By: #### A ROSIO, GFR, MG, BMP, ADIFF, CBC ####[address] [address] Calcium [Mass/Vol] 8.7 mg/dL Normal 8.7-10.4 [facility] ([place]) Comment on above: Performed By: #### A ROSIO, GFR, MG, BMP, ADIFF, CBC ####[address] [address] Chloride [Moles/Vol] 107 mmol/L Normal 98-110 [facility] ([place]) Comment on above: Performed By: #### A ROSIO, GFR, MG, BMP, ADIFF, CBC ####[address] [address] CO2 [Moles/Vol] 24 mmol/L Normal 22-32 [facility] ([place] Comment on above: Performed By: #### A ROSIO, GFR, MG, BMP, ADIFF, CBC ####[address] [address] Creatinine [Mass/Vol] 0.98 mg/dL Normal 0.60-1.40 [facility] ([place] Comment on above: Performed By: #### A ROSIO, GFR, MG, BMP, ADIFF, CBC ####[address] [address] Electrolyte Balance 9.0 mEq/L Normal 4.0-15.0 [facility] ([place] Comment on above: Performed By: #### A ROSIO, GFR, MG, BMP, ADIFF, CBC ####[place] [address] Glucose [Mass/Vol] 91 mg/dL Normal 82-115 [facility] ([place]) Comment on above: Performed By: #### A ROSIO, GFR, MG, BMP, ADIFF, CBC ####[address] [address] Potassium [Moles/Vol] 4.2 mmol/L Normal 3.5-5.0 [facility] ([place]) Comment on above: Performed By: #### A ROSIO, GFR, MG, BMP, ADIFF, CBC ####[address] [address] Sodium [Moles/Vol] 140 mmol/L Normal 136-145 [facility] ([place]) Comment on above: Performed By: #### A ROSIO, GFR, MG, BMP, ADIFF, CBC ####[address] [address] Urea nitrogen [Mass/Vol] 10.0 mg/dL Normal 8.0-22.0 [facility] ([place] Comment on above: Performed By: #### A ROSIO, GFR, MG, BMP, ADIFF, CBC ####[address] [address] CBCon 02-14-2023 Erythrocyte distribution width (RBC) [Ratio] 14.1 % Normal 11.5-15.5 [facility] ([place] Comment on above: Performed By: #### A ROSIO, GFR, MG, BMP, ADIFF, CBC ####[place] [address] Hematocrit (Bld) [Volume fraction] 39.3 % Low 40.0-52.0 [facility] ([place] Comment on above: Performed By: #### A ROSIO, GFR, MG, BMP, ADIFF, CBC ####[place] [address] Hgb 13.4 G/dL Normal 13.0-17.5 [facility] ([place] Comment on above: Performed By: #### A ROSIO, GFR, MG, BMP, ADIFF, CBC ####[place] [address] MCH (RBC) [Entitic mass] 32.4 pg Normal 27.0-33.0 [facility] ([place] Comment on above: Performed By: #### A ROSIO, GFR, MG, BMP, ADIFF, CBC ####[place] [address] MCHC 34.0 G/dL Normal 32.0-36.0 [facility] ([place] Comment on above: Performed By: #### A ROSIO, GFR, MG, BMP, ADIFF, CBC ####[place] [address] MCV (RBC) [Entitic vol] 95.2 fL Normal 81.0-100.0 [facility] ([place] Comment on above: Performed By: #### A ROSIO, GFR, MG, BMP, ADIFF, CBC ####[place] [address] Platelet 247 10 3/mcL Normal 150-450 [facility] ([place] Comment on above: Performed By: #### A ROSIO, GFR, MG, BMP, ADIFF, CBC ####[place] [address] Platelet mean volume (Bld) [Entitic vol] 8.0 fL Normal 6.4-10.5 [facility] ([place] Comment on above: Performed By: #### A ROSIO, GFR, MG, BMP, ADIFF, CBC ####[address] [address] RBC 4.13 10 6/mcL Low 4.50-6.00 [facility] ([place] Comment on above: Performed By: #### A ROSIO, GFR, MG, BMP, ADIFF, CBC ####[place] [address] WBC 9.0 10 3/mcL Normal 4.5-10.8 [facility] ([place] Comment on above: Performed By: #### A ROSIO, GFR, MG, BMP, ADIFF, CBC ####[place] [address] MGon 02-14-2023 Magnesium [Mass/Vol] 2.3 mg/dL Normal 1.6-2.4 [facility] ([place]) Comment on above: Performed By: #### A ROSIO, GFR, MG, BMP, ADIFF, CBC ####[address] [address] .Auto Diffon 02-13-2023 Basophil, Absolute 0.1 10 3/mcL Normal 0.0-0.3 [facility] ([place]) Comment on above: Performed By: #### M G, BMP, ANEU, GFR, CBC, ADIFF ####[address] [address] Basophils/100 WBC (Bld) 0.9 % Normal 0.0-2.5 [facility] ([place] Comment on above: Performed By: #### M G, BMP, ANEU, GFR, CBC, ADIFF ####[address] [address] Eosinophil, Absolute 0.2 10 3/mcL Normal 0.0-0.7 [facility] ([place] Comment on above: Performed By: #### M G, BMP, ANEU, GFR, CBC, ADIFF ####[place] [address] Eosinophils/100 WBC (Bld) 2.0 % Normal 0.0-6.0 [facility] ([place] Comment on above: Performed By: #### M G, BMP, ANEU, GFR, CBC, ADIFF ####[address] [address] Lymphocyte, Absolute 1.0 10 3/mcL Normal 0.9-4.3 [facility] ([place] Comment on above: Performed By: #### M G, BMP, ANEU, GFR, CBC, ADIFF ####[address] [address] Lymphocytes/100 WBC (Bld) 10.9 % Low 20.0-40.0 [facility] ([place] Comment on above: Performed By: #### M G, BMP, ANEU, GFR, CBC, ADIFF ####[address] [address] Monocyte, Absolute 0.7 10 3/mcL Normal 0.1-1.4 [facility] ([place]) Comment on above: Performed By: #### M G, BMP, ANEU, GFR, CBC, ADIFF ####[address] [address] Monocytes/100 WBC (Bld) 7.1 % Normal 2.0-13.0 [facility] ([place] Comment on above: Performed By: #### M G, BMP, ANEU, GFR, CBC, ADIFF ####[address] [address] Neutrophils/100 WBC (Bld) 79.1 % High 50.0-75.0 [facility] ([place] Comment on above: Performed By: #### M G, BMP, ANEU, GFR, CBC, ADIFF ####[address] [address] .GFRon 02-13-2023 GFR >60 Normal [facility] ([place]) Comment on above: Result Comment: GFR Population mean for , Non- Americans Ages 20-29 = 116 mL/min/1.73 sq.m. Ages 30-39 = 107 mL/min/1.73 sq.m. Ages 40-49 = 99 mL/min/1.73 sq.m. Ages 50-59 = 93 mL/min/1.73 sq.m. Ages 60-69 = 85 mL/min/1.73 sq.m. Ages 70+ = 75 mL/min/1.73 sq.m.Chronic Kidney Disease: Less than 60 mL/min/1.73 square metersEnd Stage Renal Disease: Less than 15 mL/min/1.73 square meters Performed By: #### M G, BMP, ANEU, GFR, CBC, ADIFF ####[place] [address] GFR Non- >60 Normal [facility] ([place] Comment on above: Result Comment: GFR Population mean for , Non- Americans Ages 20-29 = 116 mL/min/1.73 sq.m. Ages 30-39 = 107 mL/min/1.73 sq.m. Ages 40-49 = 99 mL/min/1.73 sq.m. Ages 50-59 = 93 mL/min/1.73 sq.m. Ages 60-69 = 85 mL/min/1.73 sq.m. Ages 70+ = 75 mL/min/1.73 sq.m.Chronic Kidney Disease: Less than 60 mL/min/1.73 square metersEnd Stage Renal Disease: Less than 15 mL/min/1.73 square meters Performed By: #### M G, BMP, ANEU, GFR, CBC, ADIFF ####[place] [address] .NEUABSon 02-13-2023 Neutrophil, Absolute 7.4 10 3/mcL Normal 2.3-8.1 [facility] ([place] Comment on above: Performed By: #### M G, BMP, ANEU, GFR, CBC, ADIFF ####[place] [address] APTTon 02-13-2023 aPTT Coag (Bld) [Time] 33.8 s Normal 25.0-35.0 [facility] ([place] Comment on above: Result Comment: For Heparin anticoagulation therapy, the recommendedtherapeutic range is: 54-77 seconds (APTT Correlationwith Anti-Xa therapeutic range of 0.3-0.7 units/ml).PLEASE REFERENCE THE PHARMACY PROTOCOL FOR DOSING. Performed By: #### M G, BMP, ANEU, GFR, CBC, ADIFF ####[place] [address] Heparin dose (APTT) Heparin IV Normal [facility] ([place] Comment on above: Performed By: #### M G, BMP, ANEU, GFR, CBC, ADIFF ####[place] [address] BMPon 02-13-2023 BUN/Creatinine Ratio 11.3 ratio Normal 10.0-22.0 [facility] ([place]) Comment on above: Performed By: #### M G, BMP, ANEU, GFR, CBC, ADIFF ####[place] [address] Calcium [Mass/Vol] 8.8 mg/dL Normal 8.7-10.4 [facility] ([place] Comment on above: Performed By: #### M G, BMP, ANEU, GFR, CBC, ADIFF ####[place] [address] Chloride [Moles/Vol] 108 mmol/L Normal 98-110 [facility] ([place]) Comment on above: Performed By: #### M G, BMP, ANEU, GFR, CBC, ADIFF ####[place] [address] CO2 [Moles/Vol] 27 mmol/L Normal 22-32 [facility] ([place] Comment on above: Performed By: #### M G, BMP, ANEU, GFR, CBC, ADIFF ####[place] [address] Creatinine [Mass/Vol] 1.06 mg/dL Normal 0.60-1.40 [facility] ([place] Comment on above: Performed By: #### M G, BMP, ANEU, GFR, CBC, ADIFF ####[place] [address] Electrolyte Balance 6.0 mEq/L Normal 4.0-15.0 [facility] ([place] Comment on above: Performed By: #### M G, BMP, ANEU, GFR, CBC, ADIFF ####[place] [address] Glucose [Mass/Vol] 112 mg/dL Normal 82-115 [facility] ([place] Comment on above: Performed By: #### M G, BMP, ANEU, GFR, CBC, ADIFF ####[place] [address] Potassium [Moles/Vol] 3.8 mmol/L Normal 3.5-5.0 [facility] ([place] Comment on above: Performed By: #### M G, BMP, ANEU, GFR, CBC, ADIFF ####[place] [address] Sodium [Moles/Vol] 141 mmol/L Normal 136-145 [facility] ([place] Comment on above: Performed By: #### M G, BMP, ANEU, GFR, CBC, ADIFF ####[place] [address] Urea nitrogen [Mass/Vol] 12.0 mg/dL Normal 8.0-22.0 [facility] ([place] Comment on above: Performed By: #### M G, BMP, ANEU, GFR, CBC, ADIFF ####[place] [address] CBCon 02-13-2023 Erythrocyte distribution width (RBC) [Ratio] 14.0 % Normal 11.5-15.5 [facility] ([place] Comment on above: Performed By: #### M G, BMP, ANEU, GFR, CBC, ADIFF ####[place] [address] Hematocrit (Bld) [Volume fraction] 39.3 % Low 40.0-52.0 [facility] ([place] Comment on above: Performed By: #### M G, BMP, ANEU, GFR, CBC, ADIFF ####[place] [address] Hgb 13.3 G/dL Normal 13.0-17.5 [facility] ([place] Comment on above: Performed By: #### M G, BMP, ANEU, GFR, CBC, ADIFF ####[address] [address] MCH (RBC) [Entitic mass] 32.1 pg Normal 27.0-33.0 [facility] ([place] Comment on above: Performed By: #### M G, BMP, ANEU, GFR, CBC, ADIFF ####[place] [address] MCHC 33.9 G/dL Normal 32.0-36.0 [facility] ([place] Comment on above: Performed By: #### M G, BMP, ANEU, GFR, CBC, ADIFF ####[place] [address] MCV (RBC) [Entitic vol] 94.6 fL Normal 81.0-100.0 [facility] ([place] Comment on above: Performed By: #### M G, BMP, ANEU, GFR, CBC, ADIFF ####[place] [address] Platelet 226 10 3/mcL Normal 150-450 [facility] ([place] Comment on above: Performed By: #### M G, BMP, ANEU, GFR, CBC, ADIFF ####[place] [address] Platelet mean volume (Bld) [Entitic vol] 8.1 fL Normal 6.4-10.5 [facility] ([place] Comment on above: Performed By: #### M G, BMP, ANEU, GFR, CBC, ADIFF ####[place] [address] RBC 4.15 10 6/mcL Low 4.50-6.00 [facility] ([place] Comment on above: Performed By: #### M G, BMP, ANEU, GFR, CBC, ADIFF ####[place] [address] WBC 9.3 10 3/mcL Normal 4.5-10.8 [facility] ([place] Comment on above: Performed By: #### M G, BMP, ANEU, GFR, CBC, ADIFF ####[place] [address] MGon 02-13-2023 Magnesium [Mass/Vol] 1.9 mg/dL Normal 1.6-2.4 [facility] ([place]) Comment on above: Performed By: #### M G, BMP, ANEU, GFR, CBC, ADIFF ####[address] [address] .Auto Diffon 02-12-2023 Basophil, Absolute 0.1 10 3/mcL Normal 0.0-0.3 [facility] ([place]) Comment on above: Performed By: #### G FR, ANEU, CMP, CBC, LIPID, MG, ADIFF ####[address] [address] Basophils/100 WBC (Bld) 0.8 % Normal 0.0-2.5 [facility] ([place] Comment on above: Performed By: #### G FR, ANEU, CMP, CBC, LIPID, MG, ADIFF ####[address] [address] Eosinophil, Absolute 0.1 10 3/mcL Normal 0.0-0.7 [facility] ([place] Comment on above: Performed By: #### G FR, ANEU, CMP, CBC, LIPID, MG, ADIFF ####[address] [address] Eosinophils/100 WBC (Bld) 1.0 % Normal 0.0-6.0 [facility] ([place] Comment on above: Performed By: #### G FR, ANEU, CMP, CBC, LIPID, MG, ADIFF ####[address] [address] Lymphocyte, Absolute 1.0 10 3/mcL Normal 0.9-4.3 [facility] ([place]) Comment on above: Performed By: #### G FR, ANEU, CMP, CBC, LIPID, MG, ADIFF ####[address] [address] Lymphocytes/100 WBC (Bld) 10.8 % Low 20.0-40.0 [facility] ([place]) Comment on above: Performed By: #### G FR, ANEU, CMP, CBC, LIPID, MG, ADIFF ####[address] [place] [address] Monocyte, Absolute 0.8 10 3/mcL Normal 0.1-1.4 [facility] ([place]) Comment on above: Performed By: #### G FR, ANEU, CMP, CBC, LIPID, MG, ADIFF ####[address] [address] Monocytes/100 WBC (Bld) 8.8 % Normal 2.0-13.0 [facility] ([place]) Comment on above: Performed By: #### G FR, ANEU, CMP, CBC, LIPID, MG, ADIFF ####[address] [address] Neutrophils/100 WBC (Bld) 78.6 % High 50.0-75.0 [facility] ([place]) Comment on above: Performed By: #### G FR, ANEU, CMP, CBC, LIPID, MG, ADIFF ####[address] [address] .GFRon 02-12-2023 GFR >60 Normal [facility] ([place]) Comment on above: Result Comment: GFR Population mean for , Non- Americans Ages 20-29 = 116 mL/min/1.73 sq.m. Ages 30-39 = 107 mL/min/1.73 sq.m. Ages 40-49 = 99 mL/min/1.73 sq.m. Ages 50-59 = 93 mL/min/1.73 sq.m. Ages 60-69 = 85 mL/min/1.73 sq.m. Ages 70+ = 75 mL/min/1.73 sq.m.Chronic Kidney Disease: Less than 60 mL/min/1.73 square metersEnd Stage Renal Disease: Less than 15 mL/min/1.73 square meters Performed By: #### B MP, PRO, GFR ####[address] [address] GFR Non- >60 Normal [facility] ([place]) Comment on above: Result Comment: GFR Population mean for , Non- Americans Ages 20-29 = 116 mL/min/1.73 sq.m. Ages 30-39 = 107 mL/min/1.73 sq.m. Ages 40-49 = 99 mL/min/1.73 sq.m. Ages 50-59 = 93 mL/min/1.73 sq.m. Ages 60-69 = 85 mL/min/1.73 sq.m. Ages 70+ = 75 mL/min/1.73 sq.m.Chronic Kidney Disease: Less than 60 mL/min/1.73 square metersEnd Stage Renal Disease: Less than 15 mL/min/1.73 square meters Performed By: #### B MP, PRO, GFR ####[address] [address] GFR Non- 58 ml/min/1.73sqm Normal [facility] ([place]) Comment on above: Result Comment: GFR Population mean for , Non- Americans Ages 20-29 = 116 mL/min/1.73 sq.m. Ages 30-39 = 107 mL/min/1.73 sq.m. Ages 40-49 = 99 mL/min/1.73 sq.m. Ages 50-59 = 93 mL/min/1.73 sq.m. Ages 60-69 = 85 mL/min/1.73 sq.m. Ages 70+ = 75 mL/min/1.73 sq.m.Chronic Kidney Disease: Less than 60 mL/min/1.73 square metersEnd Stage Renal Disease: Less than 15 mL/min/1.73 square meters Performed By: #### G FR, ANEU, CMP, CBC, LIPID, MG, ADIFF ####[address] [address] GFR >60 Normal [facility] ([place]) Comment on above: Result Comment: GFR Population mean for , Non- Americans Ages 20-29 = 116 mL/min/1.73 sq.m. Ages 30-39 = 107 mL/min/1.73 sq.m. Ages 40-49 = 99 mL/min/1.73 sq.m. Ages 50-59 = 93 mL/min/1.73 sq.m. Ages 60-69 = 85 mL/min/1.73 sq.m. Ages 70+ = 75 mL/min/1.73 sq.m.Chronic Kidney Disease: Less than 60 mL/min/1.73 square metersEnd Stage Renal Disease: Less than 15 mL/min/1.73 square meters Performed By: #### G FR, ANEU, CMP, CBC, LIPID, MG, ADIFF ####[address] [address] .NEUABSon 02-12-2023 Neutrophil, Absolute 7.3 10 3/mcL Normal 2.3-8.1 [facility]) Comment on above: Performed By: #### G FR, ANEU, CMP, CBC, LIPID, MG, ADIFF ####[place] [address] APTTon 02-12-2023 aPTT Coag (Bld) [Time] 53.5 s High 25.0-35.0 [facility] ([place]) Comment on above: Result Comment: For Heparin anticoagulation therapy, the recommendedtherapeutic range is: 54-77 seconds (APTT Correlationwith Anti-Xa therapeutic range of 0.3-0.7 units/ml).PLEASE REFERENCE THE PHARMACY PROTOCOL FOR DOSING. Heparin dose (APTT) Heparin IV Normal [facility] ([place]) BMPon 02-12-2023 BUN/Creatinine Ratio 10.6 ratio Normal 10.0-22.0 [facility] ([place]) Comment on above: Performed By: #### B MP, PRO, GFR ####[address] [address] Calcium [Mass/Vol] 9.0 mg/dL Normal 8.7-10.4 [facility] ([place]) Comment on above: Performed By: #### B MP, PRO, GFR ####[address] [address] Chloride [Moles/Vol] 108 mmol/L Normal 98-110 [facility] ([place]) Comment on above: Performed By: #### B MP, PRO, GFR ####[address] [address] CO2 [Moles/Vol] 24 mmol/L Normal 22-32 [facility]) Comment on above: Performed By: #### B MP, PRO, GFR ####[address] [address] Creatinine [Mass/Vol] 1.13 mg/dL Normal 0.60-1.40 [facility] ([place]) Comment on above: Performed By: #### B MP, PRO, GFR ####[place] [address] Electrolyte Balance 9.0 mEq/L Normal 4.0-15.0 [facility] ([place] Comment on above: Performed By: #### B MP, PRO, GFR ####[place] [address] Glucose [Mass/Vol] 111 mg/dL Normal 82-115 [facility] ([place] Comment on above: Performed By: #### B MP, PRO, GFR ####[place] [address] Potassium [Moles/Vol] 4.0 mmol/L Normal 3.5-5.0 [facility] ([place] Comment on above: Performed By: #### B MP, PRO, GFR ####[place] [address] Sodium [Moles/Vol] 141 mmol/L Normal 136-145 [facility] ([place] Comment on above: Performed By: #### B MP, PRO, GFR ####[place] [address] Urea nitrogen [Mass/Vol] 12.0 mg/dL Normal 8.0-22.0 [facility] ([place] Comment on above: Performed By: #### B MP, PRO, GFR ####[place] [address] CBCon 02-12-2023 Erythrocyte distribution width (RBC) [Ratio] 14.2 % Normal 11.5-15.5 [facility] ([place] Comment on above: Performed By: #### G FR, ANEU, CMP, CBC, LIPID, MG, ADIFF ####[address] [address] Hematocrit (Bld) [Volume fraction] 43.3 % Normal 40.0-52.0 [facility] ([place] Comment on above: Performed By: #### G FR, ANEU, CMP, CBC, LIPID, MG, ADIFF ####[place] [address] Hgb 14.4 G/dL Normal 13.0-17.5 [facility] ([place] Comment on above: Performed By: #### G FR, ANEU, CMP, CBC, LIPID, MG, ADIFF ####[place] [address] MCH (RBC) [Entitic mass] 31.8 pg Normal 27.0-33.0 [facility] ([place] Comment on above: Performed By: #### G FR, ANEU, CMP, CBC, LIPID, MG, ADIFF ####[place] [address] MCHC 33.3 G/dL Normal 32.0-36.0 [facility] ([place] Comment on above: Performed By: #### G FR, ANEU, CMP, CBC, LIPID, MG, ADIFF ####[place] [address] MCV (RBC) [Entitic vol] 95.3 fL Normal 81.0-100.0 [facility] ([place] Comment on above: Performed By: #### G FR, ANEU, CMP, CBC, LIPID, MG, ADIFF ####[place] [address] Platelet 236 10 3/mcL Normal 150-450 [facility] ([place] Comment on above: Performed By: #### G FR, ANEU, CMP, CBC, LIPID, MG, ADIFF ####[place] [address] Platelet mean volume (Bld) [Entitic vol] 8.0 fL Normal 6.4-10.5 [facility] ([place] Comment on above: Performed By: #### G FR, ANEU, CMP, CBC, LIPID, MG, ADIFF ####[place] [address] RBC 4.54 10 6/mcL Normal 4.50-6.00 [facility] ([place] Comment on above: Performed By: #### G FR, ANEU, CMP, CBC, LIPID, MG, ADIFF ####[place] [id number] WBC 9.3 10 3/mcL Normal 4.5-10.8 [facility] ([place] Comment on above: Performed By: #### G FR, ANEU, CMP, CBC, LIPID, MG, ADIFF ####[place] [id number] CMPon 02-12-2023 Albumin Level 3.0 G/dL Low 3.2-4.8 [facility] ([place] Comment on above: Performed By: #### G FR, ANEU, CMP, CBC, LIPID, MG, ADIFF ####[place] [id number] Albumin/Globulin [Mass ratio] 1.2 {ratio} Normal 0.9-1.6 [facility] ([place] Comment on above: Performed By: #### G FR, ANEU, CMP, CBC, LIPID, MG, ADIFF ####[place] [address] ALP [Catalytic activity/Vol] 66 U/L Normal 38-126 [facility] ([place] Comment on above: Performed By: #### G FR, ANEU, CMP, CBC, LIPID, MG, ADIFF ####[place] [address] ALT/SGPT <8 Low 12-55 [facility] ([place] Comment on above: Performed By: #### G FR, ANEU, CMP, CBC, LIPID, MG, ADIFF ####[place] [address] AST [Catalytic activity/Vol] 9 U/L Normal 8-34 [facility] ([place] Comment on above: Performed By: #### G FR, ANEU, CMP, CBC, LIPID, MG, ADIFF ####[place] [address] Bili Total 0.50 mg/dL Normal 0.20-1.20 [facility] ([place]) Comment on above: Result Comment: Use of this assay is not recommended for patients undergoing treatment with eltrombopag due to the potential for falsely elevated results. Performed By: #### G FR, ANEU, CMP, CBC, LIPID, MG, ADIFF ####[place] [id number] BUN/Creatinine Ratio 9.2 ratio Low 10.0-22.0 [facility] ([place]) Comment on above: Performed By: #### G FR, ANEU, CMP, CBC, LIPID, MG, ADIFF ####[address] [address] Calcium [Mass/Vol] 8.7 mg/dL Normal 8.7-10.4 [facility] ([place] Comment on above: Performed By: #### G FR, ANEU, CMP, CBC, LIPID, MG, ADIFF ####[place] [address] Chloride [Moles/Vol] 109 mmol/L Normal 98-110 [facility] ([place]) Comment on above: Performed By: #### G FR, ANEU, CMP, CBC, LIPID, MG, ADIFF ####[place] [id number] CO2 [Moles/Vol] 25 mmol/L Normal 22-32 [facility] ([place] Comment on above: Performed By: #### G FR, ANEU, CMP, CBC, LIPID, MG, ADIFF ####[place] [address] Creatinine [Mass/Vol] 1.19 mg/dL Normal 0.60-1.40 [facility] ([place] Comment on above: Performed By: #### G FR, ANEU, CMP, CBC, LIPID, MG, ADIFF ####[address] [address] Electrolyte Balance 6.0 mEq/L Normal 4.0-15.0 [facility] ([place] Comment on above: Performed By: #### G FR, ANEU, CMP, CBC, LIPID, MG, ADIFF ####[address] [address] Globulin 2.5 G/dL Normal 1.5-3.8 [facility] ([place]) Comment on above: Performed By: #### G FR, ANEU, CMP, CBC, LIPID, MG, ADIFF ####[place] [address] [place] [address] Glucose [Mass/Vol] 110 mg/dL Normal 82-115 [facility] ([place]) Comment on above: Performed By: #### G FR, ANEU, CMP, CBC, LIPID, MG, ADIFF ####[place] [address] [place] [address] Potassium [Moles/Vol] 4.5 mmol/L Normal 3.5-5.0 [facility] ([place]) Comment on above: Performed By: #### G FR, ANEU, CMP, CBC, LIPID, MG, ADIFF ####[place] [address] [place] [address] Sodium [Moles/Vol] 140 mmol/L Normal 136-145 [facility] ([place]) Comment on above: Performed By: #### G FR, ANEU, CMP, CBC, LIPID, MG, ADIFF ####[address] [address] Total Protein 5.5 G/dL Low 5.7-8.2 [facility] ([place]) Comment on above: Result Comment: No te - New Reference Range in effect 19 Performed By: #### G FR, ANEU, CMP, CBC, LIPID, MG, ADIFF ####[address] [address] Urea nitrogen [Mass/Vol] 11.0 mg/dL Normal 8.0-22.0 [facility] ([place] Comment on above: Performed By: #### G FR, ANEU, CMP, CBC, LIPID, MG, ADIFF ####[place] [address] [place] [address] LIPIDon 02-12-2023 Cholesterol [Mass/Vol] 131 mg/dL Normal 50-199 [facility] ([place] Comment on above: Result Comment: Chol esterol Reference Interval:Less than 200 [id number] Borderline high [id number] and above High risk Performed By: #### G FR, ANEU, CMP, CBC, LIPID, MG, ADIFF ####[place] [address] [place] [address] Cholesterol in HDL [Mass/Vol] 39 mg/dL Low 40-59 [facility] ([place] Comment on above: Performed By: #### G FR, ANEU, CMP, CBC, LIPID, MG, ADIFF ####[place] [address] [place] [address] Cholesterol in LDL [Mass/Vol] 69 mg/dL Normal 0-129 [facility] ([place] Comment on above: Performed By: #### G FR, ANEU, CMP, CBC, LIPID, MG, ADIFF ####[place] [address] [place] [address] Triglyceride [Mass/Vol] 115 mg/dL Normal 3-149 [facility] ([place] Comment on above: Performed By: #### G FR, ANEU, CMP, CBC, LIPID, MG, ADIFF ####[address] [address] MGon 02-12-2023 Magnesium [Mass/Vol] 2.0 mg/dL Normal 1.6-2.4 [facility] ([place]) Comment on above: Performed By: #### G FR, ANEU, CMP, CBC, LIPID, MG, ADIFF ####[address] [address] PROon 02-12-2023 INR Coag (PPP) [Relative time] 1.2 {INR} Normal [facility] ([place] Comment on above: Result Comment: [employer] (CHEST, 1991, 102:[id number])recommended therapeutic range for oral anticoagulant therapy is:LOW RISK: Prophylaxis of venous thrombosis INR: 2.0-3.0 Treatment of pulmonary embolism 2.0-3.0 Prevention of systemic embolism 2.0-3.0HIGH RISK: Mechanical prosthetic valves 2.5-3.5 Performed By: #### B MP, PRO, GFR ####[address] [address] PT Coag (PPP) [Time] 14.0 s Normal 9.0-14.2 [facility] ([place]) Comment on above: Result Comment: Effe ctive 09/28/07, Protime results may be affected by some antibiotics (i.e. Ciprofloxacin, Azithromycin, Bactrim) which may potentiate the action of oral anticoagulants, with further increases in Protime/INR. Performed By: #### B MP, PRO, GFR ####[address] [address] .Auto Diffon 02-11-2023 Basophil, Absolute 0.1 10 3/mcL Normal 0.0-0.2 [facility] ([place]) Comment on above: Performed By: #### T BI DECKER, W, MG, GFR, ADIFF, ANEU, CBC ####[address] [place], [place] [address] Basophils/100 WBC (Bld) 1.0 % Normal 0.0-2.5 [facility] ([place] Comment on above: Performed By: #### T BI DECKER, W, MG, GFR, ADIFF, ANEU, CBC ####[address] [place], [place] [address] Eosinophil, Absolute 0.2 10 3/mcL Normal 0.0-0.4 [facility] ([place] Comment on above: Performed By: #### T BI DECKER, W, MG, GFR, ADIFF, ANEU, CBC ####[place] [address] [place], [place] [address] Eosinophils/100 WBC (Bld) 1.8 % Normal 0.0-7.0 [facility] ([place] Comment on above: Performed By: #### T BI DECKER, VERA, MG, GFR, ADIFF, ANEU, CBC ####[address] [address] [place], [place] [address] Lymphocyte, Absolute 1.7 10 3/mcL Normal 0.8-3.9 [facility] ([place] Comment on above: Performed By: #### T BI DECKER, W, MG, GFR, ADIFF, ANEU, CBC ####[place] [address] [place], [place] [address] Lymphocytes/100 WBC (Bld) 13.9 % Normal 10.0-50.0 [facility] ([place]) Comment on above: Performed By: #### T BRIANNE, BI, W, MG, GFR, ADIFF, ANEU, CBC ####[address] [place], [place] [address] Monocyte, Absolute 1.2 10 3/mcL High 0.2-1.0 [facility] ([place]) Comment on above: Performed By: #### T BRIANNE, BI, W, MG, GFR, ADIFF, ANEU, CBC ####[address] [place], [place] [address] Monocytes/100 WBC (Bld) 9.6 % Normal 1.7-13.0 [facility] ([place] Comment on above: Performed By: #### T BRIANNE, BI, W, MG, GFR, ADIFF, ANEU, CBC ####[address] [address] [place], [place] [address] Neutrophils/100 WBC (Bld) 73.7 % Normal 37.0-80.0 [facility] ([place] Comment on above: Performed By: #### T BRIANNE, BI, W, MG, GFR, ADIFF, ANEU, CBC ####[place] [address] [place], [place] [address] .GFRon 02-11-2023 GFR 54 ml/min/1.73sqm Normal [facility] ([place] Comment on above: Result Comment: GFR Population mean for , Non- Americans Ages 20-29 = 116 mL/min/1.73 sq.m. Ages 30-39 = 107 mL/min/1.73 sq.m. Ages 40-49 = 99 mL/min/1.73 sq.m. Ages 50-59 = 93 mL/min/1.73 sq.m. Ages 60-69 = 85 mL/min/1.73 sq.m. Ages 70+ = 75 mL/min/1.73 sq.m.Chronic Kidney Disease: Less than 60 mL/min/1.73 square metersEnd Stage Renal Disease: Less than 15 mL/min/1.73 square meters Performed By: #### T BRIANNE, BI, MDW, MG, GFR, ADIFF, ANEU, CBC ####[address] [place], [place] [address] GFR Non- 45 ml/min/1.73sqm Normal [facility] ([place] Comment on above: Result Comment: GFR Population mean for , Non- Americans Ages 20-29 = 116 mL/min/1.73 sq.m. Ages 30-39 = 107 mL/min/1.73 sq.m. Ages 40-49 = 99 mL/min/1.73 sq.m. Ages 50-59 = 93 mL/min/1.73 sq.m. Ages 60-69 = 85 mL/min/1.73 sq.m. Ages 70+ = 75 mL/min/1.73 sq.m.Chronic Kidney Disease: Less than 60 mL/min/1.73 square metersEnd Stage Renal Disease: Less than 15 mL/min/1.73 square meters Performed By: #### T BRIANNE, BMP, MDW, MG, GFR, ADIFF, ANEU, CBC ####[address] [place], [place] [address] .MDWon 02-11-2023 Monocyte Distribution Width 15.63 Normal 0.00-20.00 [facility] ([place] Comment on above: Result Comment: For ED adult patients suspected of sepsis, MDW<=20.0 does not rule out sepsis or risk of sepsis Performed By: #### T BRIANNE, BMP, MDW, MG, GFR, ADIFF, ANEU, CBC ####[address] [address] [place], [place] [address] .NEUABSon 02-11-2023 Neutrophil, Absolute 9.1 10 3/mcL High 2.9-6.2 [facility] ([place] Comment on above: Performed By: #### T BRIANNE, BMP, MDW, MG, GFR, ADIFF, ANEU, CBC ####[address] [address] [place], [place] [address] .Urinalysis Microscopic (AO) on 02-11-2023 UA Bacteria Trace Abnormal [facility] ([place] Comment on above: Performed By: #### U AMICAO, UA ####[address] [place], [place] [address] UA Hyal Cast 0-5 Abnormal [facility] ([place] Comment on above: Performed By: #### U AMICAO, UA ####[address] [address] [place], [place] [address] UA RBC None Seen Normal None Seen [facility] ([place] Comment on above: Performed By: #### U AMICAO, UA ####[place] [place] [address] UA Squam Epithelial None Seen Normal None Seen [facility] ([place] Comment on above: Performed By: #### U AMICAO, UA ####[place] [address] [place] [address] UA WBC 0-5 Abnormal None Seen [facility] ([place] Comment on above: Performed By: #### U AMICAO, UA ####[place] [address] [place] [address] APTTon 02-11-2023 aPTT Coag (Bld) [Time] 53.4 s High 25.0-35.0 [facility] ([place] Comment on above: Result Comment: For Heparin anticoagulation therapy, the recommendedtherapeutic range is: 54-77 seconds (APTT Correlationwith Anti-Xa therapeutic range of 0.3-0.7 units/ml).PLEASE REFERENCE THE PHARMACY PROTOCOL FOR DOSING. Heparin dose (APTT) Heparin IV Normal [facility] [place] aPTT Coag (Bld) [Time] 48.5 s High 25.0-35.0 [facility] ([place] Comment on above: Result Comment: For Heparin anticoagulation therapy, the recommendedtherapeutic range is: 54-77 seconds (APTT Correlationwith Anti-Xa therapeutic range of 0.3-0.7 units/ml).PLEASE REFERENCE THE PHARMACY PROTOCOL FOR DOSING. Heparin dose (APTT) Heparin IV Normal [facility]) aPTT Coag (Bld) [Time] 40.0 s High 25.0-35.0 [facility] ([place] Comment on above: Result Comment: For Heparin anticoagulation therapy, the recommendedtherapeutic range is: 54-77 seconds (APTT Correlationwith Anti-Xa therapeutic range of 0.3-0.7 units/ml).PLEASE REFERENCE THE PHARMACY PROTOCOL FOR DOSING. Performed By: #### P RO ####[address] [address] Heparin dose (APTT) Heparin IV Normal [facility] ([place] Comment on above: Performed By: #### P RO ####[address] [address] BMPon 02-11-2023 BUN/Creatinine Ratio 10 ratio Normal 7-27 [facility] ([place]) Comment on above: Performed By: #### T BRIANNE, BI, MDW, MG, GFR, ADIFF, ANEU, CBC ####[address] [place], [place] [address] Calcium [Mass/Vol] 9.3 mg/dL Normal 8.4-10.2 [facility] ([place] Comment on above: Performed By: #### T BRIANNE, BI, MDW, MG, GFR, ADIFF, ANEU, CBC ####[address] [place], [place] [address] Chloride [Moles/Vol] 103 mmol/L Normal 98-107 [facility] ([place] Comment on above: Performed By: #### T BRIANNE, BI, MDW, MG, GFR, ADIFF, ANEU, CBC ####[address] [place], [place] [address] CO2 [Moles/Vol] 27 mmol/L Normal 23-31 [facility] ([place] Comment on above: Performed By: #### T BRIANNE, BI, MDW, MG, GFR, ADIFF, ANEU, CBC ####[address] [place], [place] [address] Creatinine [Mass/Vol] 1.49 mg/dL High 0.70-1.30 [facility] ([place] Comment on above: Performed By: #### T BRIANNE, BMP, MDW, MG, GFR, ADIFF, ANEU, CBC ####[place] [address] [place], [place] [address] Electrolyte Balance 9.0 mEq/L Normal 4.0-15.0 [facility] ([place] Comment on above: Performed By: #### T BI DECKER, VERA, MG, GFR, ADIFF, ANEU, CBC ####[address] [place], [place] [address] Glucose [Mass/Vol] 113 mg/dL High 83-110 [facility] ([place] Comment on above: Performed By: #### T BRIANNE, BI, W, MG, GFR, ADIFF, ANEU, CBC ####[address] [place], [place] [address] Potassium [Moles/Vol] 4.0 mmol/L Normal 3.5-5.1 [facility] ([place] Comment on above: Performed By: #### T BI DECKER, W, MG, GFR, ADIFF, ANEU, CBC ####[address] [place], [place] [address] Sodium [Moles/Vol] 139 mmol/L Normal 136-145 [facility] ([place] Comment on above: Performed By: #### T BRIANNE, BI, W, MG, GFR, ADIFF, ANEU, CBC ####[address] [place], [place] [address] Urea nitrogen [Mass/Vol] 15 mg/dL Normal 7-18 [facility] [place] Comment on above: Performed By: #### T BI DECKER, W, MG, GFR, ADIFF, ANEU, CBC ####[address] [place], [place] [address] CBCon 02-11-2023 Erythrocyte distribution width (RBC) [Ratio] 14.2 % Normal 11.5-14.5 [facility] ([place] Comment on above: Performed By: #### T BI DECKER, MDW, MG, GFR, ADIFF, ANEU, CBC ####[address] [place], [place] [address] Hematocrit (Bld) [Volume fraction] 46.0 % Normal 42.0-52.0 [facility] ([place] Comment on above: Performed By: #### T BI DECKER, MDW, MG, GFR, ADIFF, ANEU, CBC ####[address] [place], [place] [address] Hgb 15.2 G/dL Normal 14.0-18.0 [facility] ([place] Comment on above: Performed By: #### T BRIANNE, BI, MDW, MG, GFR, ADIFF, ANEU, CBC ####[address] [place], [place] [address] MCH (RBC) [Entitic mass] 31.0 pg Normal 27.0-31.2 [facility] ([place] Comment on above: Performed By: #### T BRIANNE, BI, MDW, MG, GFR, ADIFF, ANEU, CBC ####[address] [place], [place] [address] MCHC 33.1 G/dL Normal 31.8-35.4 [facility] ([place] Comment on above: Performed By: #### T BRIANNE, BI, MDW, MG, GFR, ADIFF, ANEU, CBC ####[address] [place], [place] [address] MCV (RBC) [Entitic vol] 93.7 fL Normal 80.0-94.0 [facility] ([place] Comment on above: Performed By: #### T BRIANNE, BI, MDW, MG, GFR, ADIFF, ANEU, CBC ####[address] [place], [place] [address] Platelet 335 10 3/mcL Normal 130-400 [facility] ([place] Comment on above: Performed By: #### T BRIANNE, BI, MDW, MG, GFR, ADIFF, ANEU, CBC ####[address] [place], [place] [address] Platelet mean volume (Bld) [Entitic vol] 7.6 fL Normal 7.4-10.4 [facility] ([place] Comment on above: Performed By: #### T BRIANNE, BI, MDW, MG, GFR, ADIFF, ANEU, CBC ####[address] [place], [place] [address] RBC 4.91 10 6/mcL Normal 4.04-6.13 [facility] ([place] Comment on above: Performed By: #### T BI DECKER, VERA, MG, GFR, ADIFF, ANEU, CBC ####[address] [place], [place] [address] WBC 12.3 10 3/mcL High 4.6-10.8 [facility] ([place] Comment on above: Performed By: #### T BI DECKER MDW, MG, GFR, ADIFF, ANEU, CBC ####[address] [place], [place] [address] LABORATORYOrdered By: Remigio Napier on 02-11-2023 Appearance (U) Slightly Cloudy *ABN* (02/11/23 1:52 AM) Invalid Interpretation Code Clear AO Auto Urine SS Bacteria LM.HPF (Urine sed) [#/Area] Trace /HPF Invalid Interpretation Code AO Auto Urine SS Bilirubin Ql (U) Negative (02/11/23 1:52 AM) Normal Negative AO Auto Urine SS Color (U) Yellow (02/11/23 1:52 AM) Normal AO Auto Urine SS Glucose Test strip (U) [Mass/Vol] 500 mg/dL Invalid Interpretation Code Negative AO Auto Urine SS Hemoglobin Auto test strip (U) [Mass/Vol] Negative (02/11/23 1:52 AM) Normal Negative AO Auto Urine SS Ketones Ql (U) Negative Normal Negative AO Auto Urine SS UA Hyal Cast 0-5 /LPF Invalid Interpretation Code AO Auto Urine SS UA Leuk Est Negative (02/11/23 1:52 AM) Normal Negative AO Auto Urine SS UA Nitrite Negative (02/11/23 1:52 AM) Normal Negative AO Auto Urine SS UA pH 6.0 (02/11/23 1:52 AM) Normal 5.0 - 8.0 AO Auto Urine SS UA Protein Trace mg/dL Normal Negative AO Auto Urine SS UA RBC None Seen /HPF Normal None Seen AO Auto Urine SS UA Spec Grav 1.020 (02/11/23 1:52 AM) Normal 1.015-1.02 5 AO Auto Urine SS UA Specimen Type Clean Catch (02/11/23 1:52 AM) Normal AO Auto Urine SS UA Squam Epithelial None Seen /HPF Normal None Seen A O Auto Urine SS UA Urobilinogen 0.2 E.U./dL Normal 0.2-1.0 AO Auto Urine SS WBC LM.HPF (Urine sed) [#/Area] 0-5 /HPF Invalid Interpretation Code None Seen AO Auto Urine SS MGon 02-11-2023 Magnesium [Mass/Vol] 2.1 mg/dL Normal 1.8-2.4 [facility] ([place]) Comment on above: Performed By: #### T BRIANNE, BMP, MDW, MG, GFR, ADIFF, ANEU, CBC ####[id number] [place], [place] [address] PROon 02-11-2023 INR Coag (PPP) [Relative time] 1.6 {INR} Normal [facility] ([place]) Comment on above: Result Comment: [employer] (CHEST, 1992, [id number])recommended therapeutic range for oral anticoagulant therapy is:LOW RISK: Prophylaxis of venous thrombosis INR: 2.0-3.0 Treatment of pulmonary embolism 2.0-3.0 Prevention of systemic embolism 2.0-3.0HIGH RISK: Mechanical prosthetic valves 2.5-3.5 Performed By: #### P RO ####[address] [address] PT Coag (PPP) [Time] 18.7 s High 9.0-14.2 [facility] ([place]) Comment on above: Result Comment: Effe ctive 09/28/07, Protime results may be affected by some antibiotics (i.e. Ciprofloxacin, Azithromycin, Bactrim) which may potentiate the action of oral anticoagulants, with further increases in Protime/INR. Performed By: #### P RO ####[place] [address] [address] TROPHSon 02-11-2023 Troponin I High Sensitivity 5.42 ng/L Normal 0.00-54.00 [facility] ([place]) Comment on above: Performed By: #### T BRIANNE ####[place] [address] [address] Troponin I High Sensitivity 7.60 ng/L Normal 0.00-54.00 [facility] ([place]) Comment on above: Performed By: #### T BRIANNE ####[place] [address] Troponin I High Sensitivity 11.6 ng/L Normal 0.0-76.2 [facility] ([place]) Comment on above: Performed By: #### T BRIANNE, BMP, MDW, MG, GFR, ADIFF, ANEU, CBC ####Al[address] [place], [place] [address] UAon 02-11-2023 Color (U) Yellow Normal [facility] ([place]) Comment on above: Performed By: #### U A ####[place] [address] Glucose (U) [Mass/Vol] mg/dL Abnormal Negative [facility] ([place]) Comment on above: Performed By: #### U A ####[place] [address] Ketones Ql (U) Negative Normal Neg-Trace [facility] ([place] Comment on above: Performed By: #### U A ####[place] [address] UA Appear Clear Normal Clear [facility] ([place] Comment on above: Performed By: #### U A ####[place] [address] UA Blood Negative Normal Neg-Trace [facility] ([place] Comment on above: Performed By: #### U A ####[place] [address] UA Leuk Est Negative Normal Negative [facility] ([place] Comment on above: Performed By: #### U A ####[place] [address] UA Nitrite Negative Normal Negative [facility] ([place] Comment on above: Performed By: #### U A ####[place] [address] UA pH 5.5 Normal 5.0 - 8.0 [facility] ([place] Comment on above: Performed By: #### U A ####[place] [address] UA Protein Negative Normal Negative [facility] ([place] Comment on above: Performed By: #### U A ####[place] [address] UA Spec Grav 1.020 Normal 1.006-1.02 9 [facility] ([place] Comment on above: Performed By: #### U A ####[place] [address] UA Specimen Type Clean Catch Normal [facility] ([place] Comment on above: Performed By: #### U A ####[place] [address] UA Urobilinogen 1.0 E.U./dL Normal 0.2-1.0 [facility] ([place] Comment on above: Performed By: #### U A ####[place] [address] Urobilinogen (U) [Mass/Vol] Negative Normal Neg-Trace [facility] ([place] Comment on above: Performed By: #### U A ####[place] [address] Color (U) Yellow Normal [facility] ([place] Comment on above: Performed By: #### U AMICAO, UA ####[address] [place], [place] [address] Glucose (U) [Mass/Vol] 500 mg/dL Abnormal Negative [facility] ([place]) Comment on above: Performed By: #### U AMICAO, UA ####[place] [place], [place] [address] Ketones Ql (U) Negative Normal Negative [facility] ([place] Comment on above: Performed By: #### U AMICAO, UA ####[place] [place], [place] [address] UA Appear Slightly Cloudy Abnormal Clear [facility] ([place] Comment on above: Performed By: #### U AMICAO, UA ####[address] [place], [place] [address] UA Blood Negative Normal Negative [facility] ([place] Comment on above: Performed By: #### U AMICAO, UA ####[address] [place], [place] [address] UA Leuk Est Negative Normal Negative [facility] ([place] Comment on above: Performed By: #### U AMICAO, UA ####[place] [place], [place] [address] UA Nitrite Negative Normal Negative [facility] ([place] Comment on above: Performed By: #### U AMICAO, UA ####[address] [place], [place] [address] UA pH 6.0 Normal 5.0 - 8.0 [facility] ([place] Comment on above: Performed By: #### U AMICAO, UA ####[address] [place], [place] [address] UA Protein Trace Normal Negative [facility] ([place] Comment on above: Performed By: #### U AMICAO, UA ####[address] [place], [place] [address] UA Spec Grav 1.020 Normal 1.015-1.02 5 [facility] ([place] Comment on above: Performed By: #### U AMICAO, UA ####[address] [place], [place] [address] UA Specimen Type Clean Catch Normal [facility] ([place] Comment on above: Performed By: #### U AMICAO, UA ####[place] [place], [place] [address] UA Urobilinogen 0.2 E.U./dL Normal 0.2-1.0 [facility] ([place] Comment on above: Performed By: #### U AMICAO, UA ####[place] [place], [place] [address] Urobilinogen (U) [Mass/Vol] Negative Normal Negative [facility] ([place] Comment on above: Performed By: #### U AMICAO, UA ####[place] [place], [place] [address] XR CHEST 1 VIEWon 02-11-2023 XR CHEST 1 VIEW Normal [facility] ([place]) XR CHEST 1 VIEW Normal [facility] ([place]) LABORATORYOrdered By: SYSTEM SYSTEM on 02-10-2023 Basophil, Absolute 0.1 103/mcL Normal 0.0 - 0.2 10^3/mcL AO Workflow SS Basophils/100 WBC (Bld) 1.0 % Normal 0.0 - 2.5 % AO Workflow SS Calcium [Mass/Vol] 9.3 mg/dL Normal 8.4 - 10. 2 mg/dL AO ADM SS Chloride [Moles/Vol] 103 mmol/L Normal 98 - 10 7 mmol/L AO ADM SS CO2 [Moles/Vol] 27 mmol/L Normal 23 - 31 mmol/L AO ADM SS Creatinine [Mass/Vol] 1.49 mg/dL High 0.70 - 1.30 mg/dL AO ADM SS Electrolyte Balance 9.0 mEq/L Normal 4.0 - 15 .0 mEq/L AO ADM SS Eosinophil, Absolute 0.2 103/mcL Normal 0.0 - 0 .4 10^3/mcL AO Workflow SS Eosinophils/100 WBC (Bld) 1.8 % Normal 0.0 - 7.0 % AO Workflow SS Erythrocyte distribution width (RBC) [Ratio] 14.2 % Normal 11.5 - 14.5 % AO Workflow SS GFR/1.73 sq M.predicted among blacks MDRD (S/P/Bld) [Vol rate/Area] 54 ml/min/1.73sqm Invalid Interpretation Code AO Chemistry S Comment on above: Interpretive Data: GFR Population mean for , Non- Americans Ages 20-29 = 116 mL/min/1.73 sq.m. Ages 30-39 = 107 mL/min/1.73 sq.m. Ages 40-49 = 99 mL/min/1.73 sq.m. Ages 50-59 = 93 mL/min/1.73 sq.m. Ages 60-69 = 85 mL/min/1.73 sq.m. Ages 70+ = 75 mL/min/1.73 sq.m. Chronic Kidney Disease: Less than 60 mL/min/1.73 square meters End Stage Renal Disease: Less than 15 mL/min/1.73 square meters GFR/1.73 sq M.predicted among non-blacks MDRD (S/P/Bld) [Vol rate/Area] 45 ml/min/1.73sqm Invalid Interpretation Code AO Chemistry S Comment on above: Interpretive Data: GFR Population mean for , Non- Americans Ages 20-29 = 116 mL/min/1.73 sq.m. Ages 30-39 = 107 mL/min/1.73 sq.m. Ages 40-49 = 99 mL/min/1.73 sq.m. Ages 50-59 = 93 mL/min/1.73 sq.m. Ages 60-69 = 85 mL/min/1.73 sq.m. Ages 70+ = 75 mL/min/1.73 sq.m. Chronic Kidney Disease: Less than 60 mL/min/1.73 square meters End Stage Renal Disease: Less than 15 mL/min/1.73 square meters Glucose [Mass/Vol] 113 mg/dL High 83 - 110 mg/dL AO ADM SS Hematocrit (Bld) [Volume fraction] 46.0 % Normal 42.0 - 52.0 % AO Workflow SS Hemoglobin (Bld) [Mass/Vol] 15.2 G/dL Normal 14.0 - 18.0 G/dL AO Workflow SS Lymphocyte, Absolute 1.7 103/mcL Normal 0.8 - 3 .9 10^3/mcL AO Workflow SS Lymphocytes/100 WBC (Bld) 13.9 % Normal 10.0 - 50.0 % AO Workflow SS Magnesium [Mass/Vol] 2.1 mg/dL Normal 1.8 - 2 .4 mg/dL AO ADM SS MCH (RBC) [Entitic mass] 31.0 pg Normal 27.0 - 31.2 pg AO Workflow SS MCHC 33.1 G/dL Normal 31.8 - 35.4 G/dL AO Workflow SS MCV (RBC) [Entitic vol] 93.7 fL Normal 80.0 - 94.0 fL AO Workflow SS Monocyte distribution width Auto (Bld) [Entitic vol] 15.63 1 Normal 0.00 - 20.00 AO Workflow SS Comment on above: Result Comment: For ED adult patients suspected of sepsis, MDW<=20.0 does not rule out sepsis or risk of sepsis Monocyte, Absolute 1.2 103/mcL High 0.2 - 1.0 10^3/mcL AO Workflow SS Monocytes/100 WBC (Bld) 9.6 % Normal 1.7 - 13.0 % AO Workflow SS Neutrophil, Absolute 9.1 103/mcL High 2.9 - 6 .2 10^3/mcL AO Workflow SS Neutrophils/100 WBC (Bld) 73.7 % Normal 37.0 - 80.0 % AO Workflow SS Platelet mean volume (Bld) [Entitic vol] 7.6 fL Normal 7.4 - 10.4 fL AO Workflow SS Platelets (Bld) [#/Vol] 335 103/mcL Normal 130 - 400 10^3/mcL AO Workflow SS Potassium [Moles/Vol] 4.0 mmol/L Normal 3.5 - 5.1 mmol/L AO ADM SS RBC (Bld) [#/Vol] 4.91 106/mcL Normal 4.04 - 6.13 10^6/mcL AO Workflow SS Sodium [Moles/Vol] 139 mmol/L Normal 136 - 145 mmol/L AO ADM SS Troponin I.cardiac DL <= 0.01 ng/mL [Mass/Vol] 11.6 ng/L Normal 0.0 - 76.2 ng/L AO ADM SS Urea nitrogen [Mass/Vol] 15 mg/dL Normal 7 - 18 mg/dL AO ADM SS Urea nitrogen/Creatinine [Mass ratio] 10 ratio Normal 7 - 27 ratio AO ADM SS WBC (Bld) [#/Vol] 12.3 103/mcL High 4.6 - 10.8 10^3/mcL AO Workflow SS .Auto Diffon 01-09-2023 Basophil, Absolute 0.1 10 3/mcL Normal 0.0-0.2 [facility] ([place]) Comment on above: Performed By: #### P BNP, CBC, GFR, ADIFF, ANEU, BMP ####[place] [address] [place], [place] [address] Basophils/100 WBC (Bld) 0.9 % Normal 0.0-2.5 [facility] ([place]) Comment on above: Performed By: #### P BNP, CBC, GFR, ADIFF, ANEU, BMP ####[place] [place], [place] [address] Eosinophil, Absolute 0.2 10 3/mcL Normal 0.0-0.4 [facility] ([place] Comment on above: Performed By: #### P BNP, CBC, GFR, ADIFF, ANEU, BMP ####[place] [place], [place] [address] Eosinophils/100 WBC (Bld) 2.1 % Normal 0.0-7.0 [facility] ([place] Comment on above: Performed By: #### P BNP, CBC, GFR, ADIFF, ANEU, BMP ####[place] [place], [place] [address] Lymphocyte, Absolute 1.0 10 3/mcL Normal 0.8-3.9 [facility] ([place] Comment on above: Performed By: #### P BNP, CBC, GFR, ADIFF, ANEU, BMP ####[place] [place], [place] [address] Lymphocytes/100 WBC (Bld) 9.5 % Low 10.0-50.0 [facility] ([place] Comment on above: Performed By: #### P BNP, CBC, GFR, ADIFF, ANEU, BMP ####[place] [address] [place], [place] [address] Monocyte, Absolute 0.9 10 3/mcL Normal 0.2-1.0 [facility] ([place]) Comment on above: Performed By: #### P BNP, CBC, GFR, ADIFF, ANEU, BMP ####[place] [place], [place] [address] Monocytes/100 WBC (Bld) 8.7 % Normal 1.7-13.0 [facility] ([place] Comment on above: Performed By: #### P BNP, CBC, GFR, ADIFF, ANEU, BMP ####[place] [place], [place] [address] Neutrophils/100 WBC (Bld) 78.8 % Normal 37.0-80.0 [facility] ([place] Comment on above: Performed By: #### P BNP, CBC, GFR, ADIFF, ANEU, BMP ####[place] [place], [place] [address] .GFRon 01-09-2023 GFR 84 ml/min/1.73sqm Normal [facility] ([place]) Comment on above: Result Comment: GFR Population mean for , Non- Americans Ages 20-29 = 116 mL/min/1.73 sq.m. Ages 30-39 = 107 mL/min/1.73 sq.m. Ages 40-49 = 99 mL/min/1.73 sq.m. Ages 50-59 = 93 mL/min/1.73 sq.m. Ages 60-69 = 85 mL/min/1.73 sq.m. Ages 70+ = 75 mL/min/1.73 sq.m.Chronic Kidney Disease: Less than 60 mL/min/1.73 square metersEnd Stage Renal Disease: Less than 15 mL/min/1.73 square meters Performed By: #### P BNP, CBC, GFR, ADIFF, ANEU, BMP ####[place] [address] [place], [place] [address] GFR Non- 70 ml/min/1.73sqm Normal [facility] ([place]) Comment on above: Result Comment: GFR Population mean for , Non- Americans Ages 20-29 = 116 mL/min/1.73 sq.m. Ages 30-39 = 107 mL/min/1.73 sq.m. Ages 40-49 = 99 mL/min/1.73 sq.m. Ages 50-59 = 93 mL/min/1.73 sq.m. Ages 60-69 = 85 mL/min/1.73 sq.m. Ages 70+ = 75 mL/min/1.73 sq.m.Chronic Kidney Disease: Less than 60 mL/min/1.73 square metersEnd Stage Renal Disease: Less than 15 mL/min/1.73 square meters Performed By: #### P BNP, CBC, GFR, ADIFF, ANEU, BMP ####[place] [place], [place] [address] .NEUABSon 01-09-2023 Neutrophil, Absolute 8.4 10 3/mcL High 2.9-6.2 [facility] ([place]) Comment on above: Performed By: #### P BNP, CBC, GFR, ADIFF, ANEU, BMP ####[place] [address] [place], [place] [address] BMPon 01-09-2023 BUN/Creatinine Ratio 15 ratio Normal 7-27 [facility] ([place]) Comment on above: Performed By: #### P BNP, CBC, GFR, ADIFF, ANEU, BMP ####[place] [place], [place] [address] Calcium [Mass/Vol] 8.9 mg/dL Normal 8.4-10.2 [facility] ([place]) Comment on above: Performed By: #### P BNP, CBC, GFR, ADIFF, ANEU, BMP ####[place] [place], [place] [address] Chloride [Moles/Vol] 99 mmol/L Normal 98-107 [facility] ([place]) Comment on above: Performed By: #### P BNP, CBC, GFR, ADIFF, ANEU, BMP ####[place] [address] [place], [place] [address] CO2 [Moles/Vol] 30 mmol/L Normal 23-31 [facility] ([place] Comment on above: Performed By: #### P BNP, CBC, GFR, ADIFF, ANEU, BMP ####[place] [address] [place], [place] [address] Creatinine [Mass/Vol] 1.02 mg/dL Normal 0.70-1.30 [facility] ([place]) Comment on above: Performed By: #### P BNP, CBC, GFR, ADIFF, ANEU, BMP ####[place] [place], [place] [address] Electrolyte Balance 7.0 mEq/L Normal 4.0-15.0 [facility] ([place]) Comment on above: Performed By: #### P BNP, CBC, GFR, ADIFF, ANEU, BMP ####[place] [place], [place] [address] Glucose [Mass/Vol] 104 mg/dL Normal 83-110 [facility] ([place]) Comment on above: Performed By: #### P BNP, CBC, GFR, ADIFF, ANEU, BMP ####[place] [place], [place] [address] Potassium [Moles/Vol] 4.5 mmol/L Normal 3.5-5.1 [facility] ([place]) Comment on above: Performed By: #### P BNP, CBC, GFR, ADIFF, ANEU, BMP ####[address] [place], [place] [address] Sodium [Moles/Vol] 136 mmol/L Normal 136-145 [facility] ([place] Comment on above: Performed By: #### P BNP, CBC, GFR, ADIFF, ANEU, BMP ####[place] [place], [place] [address] Urea nitrogen [Mass/Vol] 15 mg/dL Normal 7-18 [facility] ([place] Comment on above: Performed By: #### P BNP, CBC, GFR, ADIFF, ANEU, BMP ####[place] [place], [place] [address] CBCon 01-09-2023 Erythrocyte distribution width (RBC) [Ratio] 14.1 % Normal 11.5-14.5 [facility] ([place] Comment on above: Performed By: #### P BNP, CBC, GFR, ADIFF, ANEU, BMP ####[place] [place], [place] [address] Hematocrit (Bld) [Volume fraction] 39.1 % Low 42.0-52.0 [facility] ([place] Comment on above: Performed By: #### P BNP, CBC, GFR, ADIFF, ANEU, BMP ####[place] [place], [place] [address] Hgb 13.2 G/dL Low 14.0-18.0 [facility] ([place] Comment on above: Performed By: #### P BNP, CBC, GFR, ADIFF, ANEU, BMP ####[place] [place], [place] [address] MCH (RBC) [Entitic mass] 31.3 pg High 27.0-31.2 [facility] ([place] Comment on above: Performed By: #### P BNP, CBC, GFR, ADIFF, ANEU, BMP ####[place] [place], [place] [address] MCHC 33.6 G/dL Normal 31.8-35.4 [facility] ([place] Comment on above: Performed By: #### P BNP, CBC, GFR, ADIFF, ANEU, BMP ####[place] [place], [place] [address] MCV (RBC) [Entitic vol] 93.1 fL Normal 80.0-94.0 [facility] ([place] Comment on above: Performed By: #### P BNP, CBC, GFR, ADIFF, ANEU, BMP ####[place] [place], [place] [address] Platelet 257 10 3/mcL Normal 130-400 [facility] ([place] Comment on above: Performed By: #### P BNP, CBC, GFR, ADIFF, ANEU, BMP ####[place] [place], [place] [address] Platelet mean volume (Bld) [Entitic vol] 7.6 fL Normal 7.4-10.4 [facility] ([place] Comment on above: Performed By: #### P BNP, CBC, GFR, ADIFF, ANEU, BMP ####[place] [place], [place] [address] RBC 4.20 10 6/mcL Normal 4.04-6.13 [facility] ([place] Comment on above: Performed By: #### P BNP, CBC, GFR, ADIFF, ANEU, BMP ####[place] [address] [place], [place] [address] WBC 10.7 10 3/mcL Normal 4.6-10.8 [facility] ([place] Comment on above: Performed By: #### P BNP, CBC, GFR, ADIFF, ANEU, BMP ####[place] [place], [place] [address] LABORATORYOrdered By: SYSTEM SYSTEM on 01-09-2023 Basophil, Absolute 0.1 103/mcL Invalid Interpretation Code 0.0 - 0.2 10^3/mcL AO Workflow SS Basophils/100 WBC (Bld) 0.9 % Invalid Interpretation Code 0.0 - 2.5 % AO Workflow SS Calcium [Mass/Vol] 8.9 mg/dL Invalid Interpretation Code 8.4 - 10.2 mg/dL AO ADM SS Chloride [Moles/Vol] 99 mmol/L Invalid Interpretation Code 98 - 107 mmol/L AO ADM SS CO2 [Moles/Vol] 30 mmol/L Invalid Interpretation Code 23 - 31 mmol/L AO ADM SS Creatinine [Mass/Vol] 1.02 mg/dL Invalid Interpretation Code 0.70 - 1.30 mg/dL AO ADM SS Electrolyte Balance 7.0 mEq/L Invalid Interpretation Code 4.0 - 15.0 mEq/L AO ADM SS Eosinophil, Absolute 0.2 103/mcL Invalid Interpretation Code 0.0 - 0.4 10^3/mcL AO Workflow SS Eosinophils/100 WBC (Bld) 2.1 % Invalid Interpretation Code 0.0 - 7.0 % AO Workflow SS Erythrocyte distribution width (RBC) [Ratio] 14.1 % Invalid Interpretation Code 11.5 - 14.5 % AO Workflow SS GFR/1.73 sq M.predicted among blacks MDRD (S/P/Bld) [Vol rate/Area] 84 ml/min/1.73sqm Invalid Interpretation Code AO Chemistry S Comment on above: Interpretive Data: GFR Population mean for , Non- Americans Ages 20-29 = 116 mL/min/1.73 sq.m. Ages 30-39 = 107 mL/min/1.73 sq.m. Ages 40-49 = 99 mL/min/1.73 sq.m. Ages 50-59 = 93 mL/min/1.73 sq.m. Ages 60-69 = 85 mL/min/1.73 sq.m. Ages 70+ = 75 mL/min/1.73 sq.m. Chronic Kidney Disease: Less than 60 mL/min/1.73 square meters End Stage Renal Disease: Less than 15 mL/min/1.73 square meters GFR/1.73 sq M.predicted among non-blacks MDRD (S/P/Bld) [Vol rate/Area] 70 ml/min/1.73sqm Invalid Interpretation Code AO Chemistry S Comment on above: Interpretive Data: GFR Population mean for , Non- Americans Ages 20-29 = 116 mL/min/1.73 sq.m. Ages 30-39 = 107 mL/min/1.73 sq.m. Ages 40-49 = 99 mL/min/1.73 sq.m. Ages 50-59 = 93 mL/min/1.73 sq.m. Ages 60-69 = 85 mL/min/1.73 sq.m. Ages 70+ = 75 mL/min/1.73 sq.m. Chronic Kidney Disease: Less than 60 mL/min/1.73 square meters End Stage Renal Disease: Less than 15 mL/min/1.73 square meters Glucose [Mass/Vol] 104 mg/dL Invalid Interpretation Code 83 - 110 mg/dL AO ADM SS Hematocrit (Bld) [Volume fraction] 39.1 % Invalid Interpretation Code 42.0 - 52.0 % AO Workflow SS Hemoglobin (Bld) [Mass/Vol] 13.2 G/dL Invalid Interpretation Code 14.0 - 18.0 G/dL AO Workflow SS Lymphocyte, Absolute 1.0 103/mcL Invalid Interpretation Code 0.8 - 3.9 10^3/mcL AO Workflow SS Lymphocytes/100 WBC (Bld) 9.5 % Invalid Interpretation Code 10.0 - 50.0 % AO Workflow SS MCH (RBC) [Entitic mass] 31.3 pg Invalid Interpretation Code 27.0 - 31.2 pg AO Workflow SS MCHC 33.6 G/dL Invalid Interpretation Code 31.8 - 35.4 G/dL AO Workflow SS MCV (RBC) [Entitic vol] 93.1 fL Invalid Interpretation Code 80.0 - 94.0 fL AO Workflow SS Monocyte, Absolute 0.9 103/mcL Invalid Interpretation Code 0.2 - 1.0 10^3/mcL AO Workflow SS Monocytes/100 WBC (Bld) 8.7 % Invalid Interpretation Code 1.7 - 13.0 % AO Workflow SS Natriuretic peptide.B prohormone N-Terminal [Mass/Vol] 234 pg/mL Invalid Interpretation Code 0 - 450 pg/mL AO ADM SS Comment on above: Interpretive Data: N T-proBNP results of less than 300 pg/mL effectively rules out acute congestive heart failure with 99% negative predictive value. Neutrophil, Absolute 8.4 103/mcL Invalid Interpretation Code 2.9 - 6.2 10^3/mcL AO Workflow SS Neutrophils/100 WBC (Bld) 78.8 % Invalid Interpretation Code 37.0 - 80.0 % AO Workflow SS Platelet mean volume (Bld) [Entitic vol] 7.6 fL Invalid Interpretation Code 7.4 - 10.4 fL AO Workflow SS Platelets (Bld) [#/Vol] 257 103/mcL Invalid Interpretation Code 130 - 400 10^3/mcL AO Workflow SS Potassium [Moles/Vol] 4.5 mmol/L Invalid Interpretation Code 3.5 - 5.1 mmol/L AO ADM SS RBC (Bld) [#/Vol] 4.20 106/mcL Invalid Interpretation Code 4.04 - 6.13 10^6/mcL AO Workflow SS Sodium [Moles/Vol] 136 mmol/L Invalid Interpretation Code 136 - 145 mmol/L AO ADM SS Urea nitrogen [Mass/Vol] 15 mg/dL Invalid Interpretation Code 7 - 18 mg/dL AO ADM SS Urea nitrogen/Creatinine [Mass ratio] 15 ratio Invalid Interpretation Code 7 - 27 ratio AO ADM SS WBC (Bld) [#/Vol] 10.7 103/mcL Invalid Interpretation Code 4.6 - 10.8 10^3/mcL AO Workflow SS PBNPon 01-09-2023 Natriuretic peptide B (Bld) [Mass/Vol] 234 pg/mL Normal 0-450 [facility] ([place]) Comment on above: Result Comment: NT-p roBNP results of less than 300 pg/mL effectivelyrules out acute congestive heart failure with 99% negative predictive value. Performed By: #### P BNP, CBC, GFR, ADIFF, ANEU, BMP ####[place] [address] [place], [place] [address] XR CHEST 2 VIEWSon 3 XR CHEST 2 VIEWS Normal [facility] ([place]) Bacteria identified Respirat ory culture Nom (Unsp spec)Ordered By: Nika Donald on 01-06-2023 Respiratory Culture Presumptive C albicans [facility] Respiratory Culture Presumptive C albicans [facility] Gram stain for investigation of transfusion reactionOrdered By: Nika Donald on 01-06-2023 Microscopic observation Gram stain Nom (Unsp spec) [facility] Microscopic observation Gram stain Nom (Unsp spec) [facility] LABORATORYOrdered By: SYSTEM SYSTEM on 12-31-2022 Natriuretic peptide.B prohormone N-Terminal [Mass/Vol] 617 pg/mL Invalid Interpretation Code 0 - 450 pg/mL AO ADM SS Comment on above: Interpretive Data: N T-proBNP results of less than 300 pg/mL effectively rules out acute congestive heart failure with 99% negative predictive value. PBNPon 12-31-2022 Natriuretic peptide B (Bld) [Mass/Vol] 617 pg/mL High 0-450 [facility] ([place]) Comment on above: Result Comment: NT-p roBNP results of less than 300 pg/mL effectivelyrules out acute congestive heart failure with 99% negative predictive value. Performed By: #### P BNP ####[place] [address] [place], [place] [address] MRI SPINE LUMBAR W/ + W/O CO NTRASTon 12-30-2022 MRI SPINE LUMBAR W/ + W/O CONTRAST Normal [facility] ([place]) .GFRon 12-23-2022 GFR 71 ml/min/1.73sqm Normal [facility] ([place] Comment on above: Result Comment: GFR Population mean for , Non- Americans Ages 20-29 = 116 mL/min/1.73 sq.m. Ages 30-39 = 107 mL/min/1.73 sq.m. Ages 40-49 = 99 mL/min/1.73 sq.m. Ages 50-59 = 93 mL/min/1.73 sq.m. Ages 60-69 = 85 mL/min/1.73 sq.m. Ages 70+ = 75 mL/min/1.73 sq.m.Chronic Kidney Disease: Less than 60 mL/min/1.73 square metersEnd Stage Renal Disease: Less than 15 mL/min/1.73 square meters Performed By: #### D IG, GFR, BMP ####[place] [address] [place], [place] [address] GFR Non- 59 ml/min/1.73sqm Normal [facility] ([place] Comment on above: Result Comment: GFR Population mean for , Non- Americans Ages 20-29 = 116 mL/min/1.73 sq.m. Ages 30-39 = 107 mL/min/1.73 sq.m. Ages 40-49 = 99 mL/min/1.73 sq.m. Ages 50-59 = 93 mL/min/1.73 sq.m. Ages 60-69 = 85 mL/min/1.73 sq.m. Ages 70+ = 75 mL/min/1.73 sq.m.Chronic Kidney Disease: Less than 60 mL/min/1.73 square metersEnd Stage Renal Disease: Less than 15 mL/min/1.73 square meters Performed By: #### D IG, GFR, BMP ####[place] [address] [place], [place] [address] BMPon 12-23-2022 BUN/Creatinine Ratio 9 ratio Normal 7-27 [facility] ([place]) Comment on above: Performed By: #### D IG, GFR, BMP ####[address] [place], [place] [address] Calcium [Mass/Vol] 8.6 mg/dL Normal 8.4-10.2 [facility] ([place]) Comment on above: Performed By: #### D IG, GFR, BMP ####[address], [place] [address] Chloride [Moles/Vol] 101 mmol/L Normal 98-107 [facility] ([place]) Comment on above: Performed By: #### D IG, GFR, BMP ####[address], [place] [address] CO2 [Moles/Vol] 31 mmol/L Normal 23-31 [facility] ([place]) Comment on above: Performed By: #### Lisa IG, GFR, BMP ####[address] [place], [place] [address] Creatinine [Mass/Vol] 1.18 mg/dL Normal 0.70-1.30 [place] [facility] ([place]) Comment on above: Performed By: #### D IG, GFR, BMP ####[address] [place], [place] [address] Electrolyte Balance 5.0 mEq/L Normal 4.0-15.0 [facility] ([place]) Comment on above: Performed By: #### D IG, GFR, BMP ####[address] [place], [place] [address] Glucose [Mass/Vol] 89 mg/dL Normal 83-110 [facility] ([place]) Comment on above: Performed By: #### Lisa IG, GFR, BMP ####[address] [place], [place] [address] Potassium [Moles/Vol] 4.4 mmol/L Normal 3.5-5.1 [facility] ([place]) Comment on above: Performed By: #### Lisa IG, GFR, BMP ####[address] [place], [place] [address] Sodium [Moles/Vol] 137 mmol/L Normal 136-145 [facility] ([place]) Comment on above: Performed By: #### Lisa IG, GFR, BMP ####[address] [place], [place] [address] Urea nitrogen [Mass/Vol] 11 mg/dL Normal 7-18 [facility] ([place]) Comment on above: Performed By: #### Lisa IG, GFR, BMP ####[address] [place], [place] [address] DIGon 12-23-2022 LDose Digoxin: Unknown Normal [facility] ([place]) Comment on above: Performed By: #### Lisa IG, GFR, BMP ####[address] [place], [place] [address] Digoxin Level 0.98 ng/mL Normal 0.90-2.00 [facility] ([place]) Comment on above: Performed By: #### Lisa IG, GFR, BMP ####[address] [place], [place] [address] .Auto Diffon 12-15-2022 Basophil, Absolute 0.1 10 3/mcL Normal 0.0-0.2 [facility] ([place]) Comment on above: Performed By: #### G FR, ADIFF, CBC, BMP, MG, ANEU ####[address] [place], [place] [address] Basophils/100 WBC (Bld) 0.7 % Normal 0.0-2.5 [facility] ([place] Comment on above: Performed By: #### G FR, ADIFF, CBC, BMP, MG, ANEU ####[address] [place], [place] [address] Eosinophil, Absolute 0.3 10 3/mcL Normal 0.0-0.4 [facility] ([place] Comment on above: Performed By: #### G FR, ADIFF, CBC, BMP, MG, ANEU ####[address] [place], [place] [address] Eosinophils/100 WBC (Bld) 3.3 % Normal 0.0-7.0 [facility] [place] Comment on above: Performed By: #### G FR, ADIFF, CBC, BMP, MG, ANEU ####[address] [place], [place] [address] Lymphocyte, Absolute 1.3 10 3/mcL Normal 0.8-3.9 [facility] ([place] Comment on above: Performed By: #### G FR, ADIFF, CBC, BMP, MG, ANEU ####[address] [place], [place] [address] Lymphocytes/100 WBC (Bld) 12.1 % Normal 10.0-50.0 [facility] [place] Comment on above: Performed By: #### G FR, ADIFF, CBC, BMP, MG, ANEU ####[address] [place], [place] [address] Monocyte, Absolute 0.9 10 3/mcL Normal 0.2-1.0 [facility] ([place]) Comment on above: Performed By: #### G FR, ADIFF, CBC, BMP, MG, ANEU ####[address] [place], [place] [address] Monocytes/100 WBC (Bld) 8.7 % Normal 1.7-13.0 [facility] [place] Comment on above: Performed By: #### G FR, ADIFF, CBC, BMP, MG, ANEU ####[address] [place], [place] [address] Neutrophils/100 WBC (Bld) 75.2 % Normal 37.0-80.0 [facility] [place] Comment on above: Performed By: #### G FR, ADIFF, CBC, BMP, MG, ANEU ####[address] [place], [place] [address] .GFRon 12-15-2022 GFR 82 ml/min/1.73sqm Normal [facility] ([place] Comment on above: Result Comment: GFR Population mean for , Non- Americans Ages 20-29 = 116 mL/min/1.73 sq.m. Ages 30-39 = 107 mL/min/1.73 sq.m. Ages 40-49 = 99 mL/min/1.73 sq.m. Ages 50-59 = 93 mL/min/1.73 sq.m. Ages 60-69 = 85 mL/min/1.73 sq.m. Ages 70+ = 75 mL/min/1.73 sq.m.Chronic Kidney Disease: Less than 60 mL/min/1.73 square metersEnd Stage Renal Disease: Less than 15 mL/min/1.73 square meters Performed By: #### G FR, ADIFF, CBC, BMP, MG, ANEU ####[address] [place], [place] [address] GFR Non- 67 ml/min/1.73sqm Normal [facility] [place] Comment on above: Result Comment: GFR Population mean for , Non- Americans Ages 20-29 = 116 mL/min/1.73 sq.m. Ages 30-39 = 107 mL/min/1.73 sq.m. Ages 40-49 = 99 mL/min/1.73 sq.m. Ages 50-59 = 93 mL/min/1.73 sq.m. Ages 60-69 = 85 mL/min/1.73 sq.m. Ages 70+ = 75 mL/min/1.73 sq.m.Chronic Kidney Disease: Less than 60 mL/min/1.73 square metersEnd Stage Renal Disease: Less than 15 mL/min/1.73 square meters Performed By: #### G FR, ADIFF, CBC, BMP, MG, ANEU ####[address] [place], [place] [address] .NEUABSon 12-15-2022 Neutrophil, Absolute 7.9 10 3/mcL High 2.9-6.2 [facility] ([place] Comment on above: Performed By: #### G FR, ADIFF, CBC, BMP, MG, ANEU ####[address] [place], [place] [address] BMPon 12-15-2022 BUN/Creatinine Ratio 12 ratio Normal 7-27 [facility] ([place]) Comment on above: Performed By: #### G FR, ADIFF, CBC, BMP, MG, ANEU ####[address] [place], [place] [address] Calcium [Mass/Vol] 8.6 mg/dL Normal 8.4-10.2 [facility] ([place] Comment on above: Performed By: #### G FR, ADIFF, CBC, BMP, MG, ANEU ####[address] [place], [place] [address] Chloride [Moles/Vol] 104 mmol/L Normal 98-107 [facility] ([place]) Comment on above: Performed By: #### G FR, ADIFF, CBC, BMP, MG, ANEU ####[address] [place], [place] [address] CO2 [Moles/Vol] 29 mmol/L Normal 23-31 [facility] ([place] Comment on above: Performed By: #### G FR, ADIFF, CBC, BMP, MG, ANEU ####[address] [place], [place] [address] Creatinine [Mass/Vol] 1.05 mg/dL Normal 0.70-1.30 [facility] ([place]) Comment on above: Performed By: #### G FR, ADIFF, CBC, BMP, MG, ANEU ####[address] [place], [place] [address] Electrolyte Balance 7.0 mEq/L Normal 4.0-15.0 [facility] ([place] Comment on above: Performed By: #### G FR, ADIFF, CBC, BMP, MG, ANEU ####[address] [place], [place] [address] Glucose [Mass/Vol] 116 mg/dL High 83-110 [facility] ([place]) Comment on above: Performed By: #### G FR, ADIFF, CBC, BMP, MG, ANEU ####[address] [place], [place] [address] Potassium [Moles/Vol] 4.5 mmol/L Normal 3.5-5.1 [facility] ([place] Comment on above: Performed By: #### G FR, ADIFF, CBC, BMP, MG, ANEU ####[address] [place], [place] [address] Sodium [Moles/Vol] 140 mmol/L Normal 136-145 [facility] ([place]) Comment on above: Performed By: #### G FR, ADIFF, CBC, BMP, MG, ANEU ####[address] [place], [place] [address] Urea nitrogen [Mass/Vol] 13 mg/dL Normal 7-18 [facility] ([place] Comment on above: Performed By: #### G FR, ADIFF, CBC, BMP, MG, ANEU ####[address] [place], [place] [address] CBCon 12-15-2022 Erythrocyte distribution width (RBC) [Ratio] 14.5 % Normal 11.5-14.5 [facility] ([place] Comment on above: Performed By: #### G FR, ADIFF, CBC, BMP, MG, ANEU ####[address] [place], [place] [address] Hematocrit (Bld) [Volume fraction] 38.4 % Low 42.0-52.0 [facility] [place] Comment on above: Performed By: #### G FR, ADIFF, CBC, BMP, MG, ANEU ####[address] [place], [place] [address] Hgb 13.2 G/dL Low 14.0-18.0 [facility] ([place] Comment on above: Performed By: #### G FR, ADIFF, CBC, BMP, MG, ANEU ####[address] [place], [place] [address] MCH (RBC) [Entitic mass] 31.9 pg High 27.0-31.2 [facility] ([place] Comment on above: Performed By: #### G FR, ADIFF, CBC, BMP, MG, ANEU ####[address] [place], [place] [address] MCHC 34.5 G/dL Normal 31.8-35.4 [facility] ([place] Comment on above: Performed By: #### G FR, ADIFF, CBC, BMP, MG, ANEU ####[address] [place], [place] [address] MCV (RBC) [Entitic vol] 92.4 fL Normal 80.0-94.0 [facility] ([place] Comment on above: Performed By: #### G FR, ADIFF, CBC, BMP, MG, ANEU ####[address] [place], [place] [address] Platelet 215 10 3/mcL Normal 130-400 [facility] ([place]) Comment on above: Performed By: #### G FR, ADIFF, CBC, BMP, MG, ANEU ####[address] [place], [place] [address] Platelet mean volume (Bld) [Entitic vol] 7.5 fL Normal 7.4-10.4 [facility] ([place] Comment on above: Performed By: #### G FR, ADIFF, CBC, BMP, MG, ANEU ####[address] [place], [place] [address] RBC 4.15 10 6/mcL Normal 4.04-6.13 [facility] ([place] Comment on above: Performed By: #### G FR, ADIFF, CBC, BMP, MG, ANEU ####[address] [place], [place] [address] WBC 10.5 10 3/mcL Normal 4.6-10.8 [facility] ([place] Comment on above: Performed By: #### G FR, ADIFF, CBC, BMP, MG, ANEU ####[address] [place], [place] [address] LABORATORYOrdered By: SYSTEM SYSTEM on 12-15-2022 Basophil, Absolute 0.1 103/mcL Invalid Interpretation Code 0.0 - 0.2 10^3/mcL AO Workflow SS Basophils/100 WBC (Bld) 0.7 % Invalid Interpretation Code 0.0 - 2.5 % AO Workflow SS Calcium [Mass/Vol] 8.6 mg/dL Invalid Interpretation Code 8.4 - 10.2 mg/dL AO ADM SS Chloride [Moles/Vol] 104 mmol/L Invalid Interpretation Code 98 - 107 mmol/L AO ADM SS CO2 [Moles/Vol] 29 mmol/L Invalid Interpretation Code 23 - 31 mmol/L AO ADM SS Creatinine [Mass/Vol] 1.05 mg/dL Invalid Interpretation Code 0.70 - 1.30 mg/dL AO ADM SS Electrolyte Balance 7.0 mEq/L Invalid Interpretation Code 4.0 - 15.0 mEq/L AO ADM SS Eosinophil, Absolute 0.3 103/mcL Invalid Interpretation Code 0.0 - 0.4 10^3/mcL AO Workflow SS Eosinophils/100 WBC (Bld) 3.3 % Invalid Interpretation Code 0.0 - 7.0 % AO Workflow SS Erythrocyte distribution width (RBC) [Ratio] 14.5 % Invalid Interpretation Code 11.5 - 14.5 % AO Workflow SS GFR/1.73 sq M.predicted among blacks MDRD (S/P/Bld) [Vol rate/Area] 82 ml/min/1.73sqm Invalid Interpretation Code AO Chemistry S Comment on above: Interpretive Data: GFR Population mean for , Non- Americans Ages 20-29 = 116 mL/min/1.73 sq.m. Ages 30-39 = 107 mL/min/1.73 sq.m. Ages 40-49 = 99 mL/min/1.73 sq.m. Ages 50-59 = 93 mL/min/1.73 sq.m. Ages 60-69 = 85 mL/min/1.73 sq.m. Ages 70+ = 75 mL/min/1.73 sq.m. Chronic Kidney Disease: Less than 60 mL/min/1.73 square meters End Stage Renal Disease: Less than 15 mL/min/1.73 square meters GFR/1.73 sq M.predicted among non-blacks MDRD (S/P/Bld) [Vol rate/Area] 67 ml/min/1.73sqm Invalid Interpretation Code AO Chemistry S Comment on above: Interpretive Data: GFR Population mean for , Non- Americans Ages 20-29 = 116 mL/min/1.73 sq.m. Ages 30-39 = 107 mL/min/1.73 sq.m. Ages 40-49 = 99 mL/min/1.73 sq.m. Ages 50-59 = 93 mL/min/1.73 sq.m. Ages 60-69 = 85 mL/min/1.73 sq.m. Ages 70+ = 75 mL/min/1.73 sq.m. Chronic Kidney Disease: Less than 60 mL/min/1.73 square meters End Stage Renal Disease: Less than 15 mL/min/1.73 square meters Glucose [Mass/Vol] 116 mg/dL Invalid Interpretation Code 83 - 110 mg/dL AO ADM SS Hematocrit (Bld) [Volume fraction] 38.4 % Invalid Interpretation Code 42.0 - 52.0 % AO Workflow SS Hemoglobin (Bld) [Mass/Vol] 13.2 G/dL Invalid Interpretation Code 14.0 - 18.0 G/dL AO Workflow SS Lymphocyte, Absolute 1.3 103/mcL Invalid Interpretation Code 0.8 - 3.9 10^3/mcL AO Workflow SS Lymphocytes/100 WBC (Bld) 12.1 % Invalid Interpretation Code 10.0 - 50.0 % AO Workflow SS Magnesium [Mass/Vol] 2.1 mg/dL Invalid Interpretation Code 1.8 - 2.4 mg/dL AO ADM SS MCH (RBC) [Entitic mass] 31.9 pg Invalid Interpretation Code 27.0 - 31.2 pg AO Workflow SS MCHC 34.5 G/dL Invalid Interpretation Code 31.8 - 35.4 G/dL AO Workflow SS MCV (RBC) [Entitic vol] 92.4 fL Invalid Interpretation Code 80.0 - 94.0 fL AO Workflow SS Monocyte, Absolute 0.9 103/mcL Invalid Interpretation Code 0.2 - 1.0 10^3/mcL AO Workflow SS Monocytes/100 WBC (Bld) 8.7 % Invalid Interpretation Code 1.7 - 13.0 % AO Workflow SS Neutrophil, Absolute 7.9 103/mcL Invalid Interpretation Code 2.9 - 6.2 10^3/mcL AO Workflow SS Neutrophils/100 WBC (Bld) 75.2 % Invalid Interpretation Code 37.0 - 80.0 % AO Workflow SS Platelet mean volume (Bld) [Entitic vol] 7.5 fL Invalid Interpretation Code 7.4 - 10.4 fL AO Workflow SS Platelets (Bld) [#/Vol] 215 103/mcL Invalid Interpretation Code 130 - 400 10^3/mcL AO Workflow SS Potassium [Moles/Vol] 4.5 mmol/L Invalid Interpretation Code 3.5 - 5.1 mmol/L AO ADM SS RBC (Bld) [#/Vol] 4.15 106/mcL Invalid Interpretation Code 4.04 - 6.13 10^6/mcL AO Workflow SS Sodium [Moles/Vol] 140 mmol/L Invalid Interpretation Code 136 - 145 mmol/L AO ADM SS Urea nitrogen [Mass/Vol] 13 mg/dL Invalid Interpretation Code 7 - 18 mg/dL AO ADM SS Urea nitrogen/Creatinine [Mass ratio] 12 ratio Invalid Interpretation Code 7 - 27 ratio AO ADM SS WBC (Bld) [#/Vol] 10.5 103/mcL Invalid Interpretation Code 4.6 - 10.8 10^3/mcL AO Workflow SS MGon 12-15-2022 Magnesium [Mass/Vol] 2.1 mg/dL Normal 1.8-2.4 [facility] ([place]) Comment on above: Performed By: #### G FR, ADIFF, CBC, BMP, MG, ANEU ####[address] [place], [place] [address] XR CHEST 2 VIEWSon 3 XR CHEST 2 VIEWS Normal [facility] ([place]) .GFRon 12-14-2022 GFR 69 ml/min/1.73sqm Normal [facility] ([place]) Comment on above: Result Comment: GFR Population mean for , Non- Americans Ages 20-29 = 116 mL/min/1.73 sq.m. Ages 30-39 = 107 mL/min/1.73 sq.m. Ages 40-49 = 99 mL/min/1.73 sq.m. Ages 50-59 = 93 mL/min/1.73 sq.m. Ages 60-69 = 85 mL/min/1.73 sq.m. Ages 70+ = 75 mL/min/1.73 sq.m.Chronic Kidney Disease: Less than 60 mL/min/1.73 square metersEnd Stage Renal Disease: Less than 15 mL/min/1.73 square meters Performed By: #### B MP, MG, GFR ####[address] [place], [place] [address] GFR Non- 57 ml/min/1.73sqm Normal [facility] ([place]) Comment on above: Result Comment: GFR Population mean for , Non- Americans Ages 20-29 = 116 mL/min/1.73 sq.m. Ages 30-39 = 107 mL/min/1.73 sq.m. Ages 40-49 = 99 mL/min/1.73 sq.m. Ages 50-59 = 93 mL/min/1.73 sq.m. Ages 60-69 = 85 mL/min/1.73 sq.m. Ages 70+ = 75 mL/min/1.73 sq.m.Chronic Kidney Disease: Less than 60 mL/min/1.73 square metersEnd Stage Renal Disease: Less than 15 mL/min/1.73 square meters Performed By: #### B MP, MG, GFR ####[address] [place], [place] [address] BMPon 12-14-2022 BUN/Creatinine Ratio 11 ratio Normal 7-27 [facility] ([place]) Comment on above: Performed By: #### B MP, MG, GFR ####[address] [place], [place] [address] Calcium [Mass/Vol] 8.4 mg/dL Normal 8.4-10.2 [facility] ([place]) Comment on above: Performed By: #### Shelly MP, MG, GFR ####[address] [place], [place] [address] Chloride [Moles/Vol] 105 mmol/L Normal 98-107 [facility] ([place]) Comment on above: Performed By: #### B MP, MG, GFR ####[address] [place], [place] [address] CO2 [Moles/Vol] 30 mmol/L Normal 23-31 [facility] ([place]) Comment on above: Performed By: #### B MP, MG, GFR ####[address] [place], [place] [address] Creatinine [Mass/Vol] 1.21 mg/dL Normal 0.70-1.30 [facility] ([place]) Comment on above: Performed By: #### B MP, MG, GFR ####[address] [place], [place] [address] Electrolyte Balance 6.0 mEq/L Normal 4.0-15.0 [facility] ([place]) Comment on above: Performed By: #### B MP, MG, GFR ####[address] [place], [place] [address] Glucose [Mass/Vol] 114 mg/dL High 83-110 [facility] ([place]) Comment on above: Performed By: #### B MP, MG, GFR ####[address] [place], [place] [address] Potassium [Moles/Vol] 4.7 mmol/L Normal 3.5-5.1 [facility] ([place] Comment on above: Performed By: #### B MP, MG, GFR ####[address] [place], [place] [address] Sodium [Moles/Vol] 141 mmol/L Normal 136-145 [facility] ([place]) Comment on above: Performed By: #### B MP, MG, GFR ####[address] [place], [place] [address] Urea nitrogen [Mass/Vol] 13 mg/dL Normal 7-18 [facility] ([place] Comment on above: Performed By: #### B MP, MG, GFR ####[address] [place], [place] [address] LABORATORYOrdered By: SYSTEM SYSTEM on 12-14-2022 Calcium [Mass/Vol] 8.4 mg/dL Invalid Interpretation Code 8.4 - 10.2 mg/dL AO ADM SS Chloride [Moles/Vol] 105 mmol/L Invalid Interpretation Code 98 - 107 mmol/L AO ADM SS CO2 [Moles/Vol] 30 mmol/L Invalid Interpretation Code 23 - 31 mmol/L AO ADM SS Creatinine [Mass/Vol] 1.21 mg/dL Invalid Interpretation Code 0.70 - 1.30 mg/dL AO ADM SS Electrolyte Balance 6.0 mEq/L Invalid Interpretation Code 4.0 - 15.0 mEq/L AO ADM SS GFR/1.73 sq M.predicted among blacks MDRD (S/P/Bld) [Vol rate/Area] 69 ml/min/1.73sqm Invalid Interpretation Code AO Chemistry S Comment on above: Interpretive Data: GFR Population mean for , Non- Americans Ages 20-29 = 116 mL/min/1.73 sq.m. Ages 30-39 = 107 mL/min/1.73 sq.m. Ages 40-49 = 99 mL/min/1.73 sq.m. Ages 50-59 = 93 mL/min/1.73 sq.m. Ages 60-69 = 85 mL/min/1.73 sq.m. Ages 70+ = 75 mL/min/1.73 sq.m. Chronic Kidney Disease: Less than 60 mL/min/1.73 square meters End Stage Renal Disease: Less than 15 mL/min/1.73 square meters GFR/1.73 sq M.predicted among non-blacks MDRD (S/P/Bld) [Vol rate/Area] 57 ml/min/1.73sqm Invalid Interpretation Code AO Chemistry S Comment on above: Interpretive Data: GFR Population mean for , Non- Americans Ages 20-29 = 116 mL/min/1.73 sq.m. Ages 30-39 = 107 mL/min/1.73 sq.m. Ages 40-49 = 99 mL/min/1.73 sq.m. Ages 50-59 = 93 mL/min/1.73 sq.m. Ages 60-69 = 85 mL/min/1.73 sq.m. Ages 70+ = 75 mL/min/1.73 sq.m. Chronic Kidney Disease: Less than 60 mL/min/1.73 square meters End Stage Renal Disease: Less than 15 mL/min/1.73 square meters Glucose [Mass/Vol] 114 mg/dL Invalid Interpretation Code 83 - 110 mg/dL AO ADM SS Magnesium [Mass/Vol] 1.9 mg/dL Invalid Interpretation Code 1.8 - 2.4 mg/dL AO ADM SS Potassium [Moles/Vol] 4.7 mmol/L Invalid Interpretation Code 3.5 - 5.1 mmol/L AO ADM SS Sodium [Moles/Vol] 141 mmol/L Invalid Interpretation Code 136 - 145 mmol/L AO ADM SS TSH Qn 2.09 m[IU]/L Invalid Interpretation Code 0.36 - 3.74 mcIU/mL AO ADM SS Urea nitrogen [Mass/Vol] 13 mg/dL Invalid Interpretation Code 7 - 18 mg/dL AO ADM SS Urea nitrogen/Creatinine [Mass ratio] 11 ratio Invalid Interpretation Code 7 - 27 ratio AO ADM SS MGon 12-14-2022 Magnesium [Mass/Vol] 1.9 mg/dL Normal 1.8-2.4 [facility] ([place]) Comment on above: Performed By: #### B MP, MG, GFR ####[address] [place], [place] [address] TSHon 12-14-2022 TSH Qn 2.09 m[IU]/L Normal 0.36-3.74 [facility] ([place] Comment on above: Performed By: #### T SH ####[address] [place], [place] [address] .Auto Diffon 12-13-2022 Basophil, Absolute 0.1 10 3/mcL Normal 0.0-0.2 [facility] ([place]) Comment on above: Performed By: #### C BC, GFR, TROPHS, ADIFF, BMP, ANEU, VERA ####[address] [place], [place] [address] Basophils/100 WBC (Bld) 1.2 % Normal 0.0-2.5 [facility] ([place] Comment on above: Performed By: #### C BC, GFR, TROPHS, ADIFF, BMP, AIDAN, W ####[address] [place], [place] [address] Eosinophil, Absolute 0.3 10 3/mcL Normal 0.0-0.4 [facility] ([place] Comment on above: Performed By: #### C BC, GFR, TROPHS, ADIFF, BMP, VERA BERMUDEZ ####[address] [place], [place] [address] Eosinophils/100 WBC (Bld) 2.7 % Normal 0.0-7.0 [facility] ([place] Comment on above: Performed By: #### C BC, GFR, TROPHS, ADIFF, BMP, ANEUVERA ####[address] [place], [place] [address] Lymphocyte, Absolute 1.2 10 3/mcL Normal 0.8-3.9 [facility] ([place] Comment on above: Performed By: #### C BC, GFR, TROPHS, ADIFF, BMP, VERA BERMUDEZ ####[address] [place], [place] [address] Lymphocytes/100 WBC (Bld) 11.2 % Normal 10.0-50.0 [facility] [place] Comment on above: Performed By: #### C BC, GFR, TROPHS, ADIFF, BMP, VERA BERMUDEZ ####[address] [place], [place] [address] Monocyte, Absolute 0.9 10 3/mcL Normal 0.2-1.0 [facility] ([place] Comment on above: Performed By: #### C BC, GFR, TROPHS, ADIFF, BMP, VERA BERMUDEZ ####[address] [place], [place] [address] Monocytes/100 WBC (Bld) 8.0 % Normal 1.7-13.0 [facility] ([place] Comment on above: Performed By: #### C BC, GFR, TROPHS, ADIFF, BI, VERA BERMUDEZ ####[address] [place], [place] [address] Neutrophils/100 WBC (Bld) 76.9 % Normal 37.0-80.0 [facility] ([place] Comment on above: Performed By: #### C BC, GFR, TROPHS, ADIFF, BMP, VERA BERMUDEZ ####[address] [place], [place] [address] .GFRon 12-13-2022 GFR Non- 67 ml/min/1.73sqm Normal [facility] ([place] Comment on above: Result Comment: GFR Population mean for , Non- Americans Ages 20-29 = 116 mL/min/1.73 sq.m. Ages 30-39 = 107 mL/min/1.73 sq.m. Ages 40-49 = 99 mL/min/1.73 sq.m. Ages 50-59 = 93 mL/min/1.73 sq.m. Ages 60-69 = 85 mL/min/1.73 sq.m. Ages 70+ = 75 mL/min/1.73 sq.m.Chronic Kidney Disease: Less than 60 mL/min/1.73 square metersEnd Stage Renal Disease: Less than 15 mL/min/1.73 square meters Performed By: #### C BC, GFR, TROPHS, ADIFF, BMP, ANEUVERA ####[address] [place], [place] [address] GFR 81 ml/min/1.73sqm Normal [facility] ([place] Comment on above: Result Comment: GFR Population mean for , Non- Americans Ages 20-29 = 116 mL/min/1.73 sq.m. Ages 30-39 = 107 mL/min/1.73 sq.m. Ages 40-49 = 99 mL/min/1.73 sq.m. Ages 50-59 = 93 mL/min/1.73 sq.m. Ages 60-69 = 85 mL/min/1.73 sq.m. Ages 70+ = 75 mL/min/1.73 sq.m.Chronic Kidney Disease: Less than 60 mL/min/1.73 square metersEnd Stage Renal Disease: Less than 15 mL/min/1.73 square meters Performed By: #### C BC, GFR, TROPHS, ADIFF, BMP, ANEU, W ####[address] [place], [place] [address] .MDWon 12-13-2022 Monocyte Distribution Width 17.05 Normal 0.00-20.00 [facility] ([place] Comment on above: Result Comment: For ED adult patients suspected of sepsis, MDW<=20.0 does not rule out sepsis or risk of sepsis Performed By: #### C BC, GFR, TROPHS, ADIFF, BMP, VERA BERMUDEZ ####[address] [place], [place] [address] .NEUABSon 12-13-2022 Neutrophil, Absolute 8.4 10 3/mcL High 2.9-6.2 [facility] ([place] Comment on above: Performed By: #### C BC, GFR, TROPHS, ADIFF, BMP, ANEU, MDW ####[address] [place], [place] [address] BMPon 12-13-2022 BUN/Creatinine Ratio 10 ratio Normal 7-27 [facility] ([place]) Comment on above: Performed By: #### C BC, GFR, TROPHS, ADIFF, BMP, VERA BERMUDEZ ####[address] [place], [place] [address] Calcium [Mass/Vol] 8.4 mg/dL Normal 8.4-10.2 [facility] ([place] Comment on above: Performed By: #### C BC, GFR, TROPHS, ADIFF, BMP, VERA BERMUDEZ ####[address] [place], [place] [address] Chloride [Moles/Vol] 104 mmol/L Normal 98-107 [facility] ([place]) Comment on above: Performed By: #### C BC, GFR, TROPHS, ADIFF, BMP, VERA BERMUDEZ ####[address] [place], [place] [address] CO2 [Moles/Vol] 30 mmol/L Normal 23-31 [facility] ([place] Comment on above: Performed By: #### C BC, GFR, TROPHS, ADIFF, BMP, VERA BERMUDEZ ####[address] [place], [place] [address] Creatinine [Mass/Vol] 1.06 mg/dL Normal 0.70-1.30 [facility] ([place] Comment on above: Performed By: #### C BC, GFR, TROPHS, ADIFF, BMP, VERA BERMUDEZ ####[address], [place] [address] Electrolyte Balance 7.0 mEq/L Normal 4.0-15.0 [facility] ([place]) Comment on above: Performed By: #### C BC, GFR, TROPHS, ADIFF, BMP, VERA BERMUDEZ ####[address], [place] [address] Glucose [Mass/Vol] 122 mg/dL High 83-110 [facility] ([place]) Comment on above: Performed By: #### C BC, GFR, TROPHS, ADIFF, BI, VERA BERMUDEZ ####[address], [place] [address] Potassium [Moles/Vol] 4.4 mmol/L Normal 3.5-5.1 [facility] ([place]) Comment on above: Performed By: #### C BC, GFR, TROPHS, ADIFF, BMP, VERA BERMUDEZ ####[address], [place] [address] Sodium [Moles/Vol] 141 mmol/L Normal 136-145 [facility] ([place]) Comment on above: Performed By: #### C BC, GFR, TROPHS, ADIFF, BMP, VERA BERMUDEZ ####[address], [place] [address] Urea nitrogen [Mass/Vol] 11 mg/dL Normal 7-18 [facility] ([place]) Comment on above: Performed By: #### C BC, GFR, TROPHS, ADIFF, BI, VERA BERMUDEZ ####[address], [place] [address] CBCon 12-13-2022 Erythrocyte distribution width (RBC) [Ratio] 14.6 % High 11.5-14.5 [facility] ([place]) Comment on above: Performed By: #### C BC, GFR, TROPHS, ADIFF, BI, VERA BERMUDEZ ####[address] [place], [place] [address] Hematocrit (Bld) [Volume fraction] 39.7 % Low 42.0-52.0 [facility] ([place]) Comment on above: Performed By: #### C BC, GFR, TROPHS, ADIFF, BI, VERA BERMUDEZ ####[address] [place], [place] [address] Hgb 13.6 G/dL Low 14.0-18.0 [facility] ([place]) Comment on above: Performed By: #### C BC, GFR, TROPHS, ADIFF, BMP, VERA BERMUDEZ ####[address] [place], [place] [address] MCH (RBC) [Entitic mass] 31.4 pg High 27.0-31.2 [facility] ([place]) Comment on above: Performed By: #### C BC, GFR, TROPHS, ADIFF, BMP, VERA BERMUDEZ ####[address] [place], [place] [address] MCHC 34.2 G/dL Normal 31.8-35.4 [facility] ([place] Comment on above: Performed By: #### C BC, GFR, TROPHS, ADIFF, BMP, VERA BERMUDEZ ####[address] [place], [place] [address] MCV (RBC) [Entitic vol] 91.8 fL Normal 80.0-94.0 [facility] [place] Comment on above: Performed By: #### C BC, GFR, TROPHS, ADIFF, BMP, VERA BERMUDEZ ####[address] [place], [place] [address] Platelet 242 10 3/mcL Normal 130-400 [facility] ([place] Comment on above: Performed By: #### C BC, GFR, TROPHS, ADIFF, BI, VERA BERMUDEZ ####[address] [place], [place] [address] Platelet mean volume (Bld) [Entitic vol] 7.5 fL Normal 7.4-10.4 [facility] [place] Comment on above: Performed By: #### C BC, GFR, TROPHS, ADIFF, BMP, VERA BERMUDEZ ####[address] [place], [place] [address] RBC 4.32 10 6/mcL Normal 4.04-6.13 [facility] [place] Comment on above: Performed By: #### C BC, GFR, TROPHS, ADIFF, BMP, VERA BERMUDEZ ####[address] [place], [place] [address] WBC 10.9 10 3/mcL High 4.6-10.8 [facility] ([place] Comment on above: Performed By: #### C BC, GFR, TROPHS, ADIFF, BMP, ANEU, MDW ####[address] [place] [id number] LABORATORYOrdered By: SYSTEM SYSTEM on 12-13-2022 Basophil, Absolute 0.1 103/mcL Invalid Interpretation Code 0.0 - 0.2 10^3/mcL AO Workflow SS Basophils/100 WBC (Bld) 1.2 % Invalid Interpretation Code 0.0 - 2.5 % AO Workflow SS Calcium [Mass/Vol] 8.4 mg/dL Invalid Interpretation Code 8.4 - 10.2 mg/dL AO ADM SS Chloride [Moles/Vol] 104 mmol/L Invalid Interpretation Code 98 - 107 mmol/L AO ADM SS CO2 [Moles/Vol] 30 mmol/L Invalid Interpretation Code 23 - 31 mmol/L AO ADM SS Creatinine [Mass/Vol] 1.06 mg/dL Invalid Interpretation Code 0.70 - 1.30 mg/dL AO ADM SS Electrolyte Balance 7.0 mEq/L Invalid Interpretation Code 4.0 - 15.0 mEq/L AO ADM SS Eosinophil, Absolute 0.3 103/mcL Invalid Interpretation Code 0.0 - 0.4 10^3/mcL AO Workflow SS Eosinophils/100 WBC (Bld) 2.7 % Invalid Interpretation Code 0.0 - 7.0 % AO Workflow SS Erythrocyte distribution width (RBC) [Ratio] 14.6 % Invalid Interpretation Code 11.5 - 14.5 % AO Workflow SS GFR/1.73 sq M.predicted among blacks MDRD (S/P/Bld) [Vol rate/Area] 81 ml/min/1.73sqm Invalid Interpretation Code AO Chemistry S Comment on above: Interpretive Data: GFR Population mean for , Non- Americans Ages 20-29 = 116 mL/min/1.73 sq.m. Ages 30-39 = 107 mL/min/1.73 sq.m. Ages 40-49 = 99 mL/min/1.73 sq.m. Ages 50-59 = 93 mL/min/1.73 sq.m. Ages 60-69 = 85 mL/min/1.73 sq.m. Ages 70+ = 75 mL/min/1.73 sq.m. Chronic Kidney Disease: Less than 60 mL/min/1.73 square meters End Stage Renal Disease: Less than 15 mL/min/1.73 square meters GFR/1.73 sq M.predicted among non-blacks MDRD (S/P/Bld) [Vol rate/Area] 67 ml/min/1.73sqm Invalid Interpretation Code AO Chemistry S Comment on above: Interpretive Data: GFR Population mean for , Non- Americans Ages 20-29 = 116 mL/min/1.73 sq.m. Ages 30-39 = 107 mL/min/1.73 sq.m. Ages 40-49 = 99 mL/min/1.73 sq.m. Ages 50-59 = 93 mL/min/1.73 sq.m. Ages 60-69 = 85 mL/min/1.73 sq.m. Ages 70+ = 75 mL/min/1.73 sq.m. Chronic Kidney Disease: Less than 60 mL/min/1.73 square meters End Stage Renal Disease: Less than 15 mL/min/1.73 square meters Glucose [Mass/Vol] 122 mg/dL Invalid Interpretation Code 83 - 110 mg/dL AO ADM SS Hematocrit (Bld) [Volume fraction] 39.7 % Invalid Interpretation Code 42.0 - 52.0 % AO Workflow SS Hemoglobin (Bld) [Mass/Vol] 13.6 G/dL Invalid Interpretation Code 14.0 - 18.0 G/dL AO Workflow SS Lymphocyte, Absolute 1.2 103/mcL Invalid Interpretation Code 0.8 - 3.9 10^3/mcL AO Workflow SS Lymphocytes/100 WBC (Bld) 11.2 % Invalid Interpretation Code 10.0 - 50.0 % AO Workflow SS Magnesium [Mass/Vol] 2.0 mg/dL Invalid Interpretation Code 1.8 - 2.4 mg/dL AO ADM SS MCH (RBC) [Entitic mass] 31.4 pg Invalid Interpretation Code 27.0 - 31.2 pg AO Workflow SS MCHC 34.2 G/dL Invalid Interpretation Code 31.8 - 35.4 G/dL AO Workflow SS MCV (RBC) [Entitic vol] 91.8 fL Invalid Interpretation Code 80.0 - 94.0 fL AO Workflow SS Monocyte distribution width Auto (Bld) [Entitic vol] 17.05 1 Invalid Interpretation Code 0.00 - 20.00 AO Workflow SS Comment on above: Result Comment: For ED adult patients suspected of sepsis, MDW<=20.0 does not rule out sepsis or risk of sepsis Monocyte, Absolute 0.9 103/mcL Invalid Interpretation Code 0.2 - 1.0 10^3/mcL AO Workflow SS Monocytes/100 WBC (Bld) 8.0 % Invalid Interpretation Code 1.7 - 13.0 % AO Workflow SS Neutrophil, Absolute 8.4 103/mcL Invalid Interpretation Code 2.9 - 6.2 10^3/mcL AO Workflow SS Neutrophils/100 WBC (Bld) 76.9 % Invalid Interpretation Code 37.0 - 80.0 % AO Workflow SS Platelet mean volume (Bld) [Entitic vol] 7.5 fL Invalid Interpretation Code 7.4 - 10.4 fL AO Workflow SS Platelets (Bld) [#/Vol] 242 103/mcL Invalid Interpretation Code 130 - 400 10^3/mcL AO Workflow SS Potassium [Moles/Vol] 4.4 mmol/L Invalid Interpretation Code 3.5 - 5.1 mmol/L AO ADM SS RBC (Bld) [#/Vol] 4.32 106/mcL Invalid Interpretation Code 4.04 - 6.13 10^6/mcL AO Workflow SS Sodium [Moles/Vol] 141 mmol/L Invalid Interpretation Code 136 - 145 mmol/L AO ADM SS Troponin I.cardiac DL <= 0.01 ng/mL [Mass/Vol] 10.2 ng/L Invalid Interpretation Code 0.0 - 76.2 ng/L AO ADM SS Urea nitrogen [Mass/Vol] 11 mg/dL Invalid Interpretation Code 7 - 18 mg/dL AO ADM SS Urea nitrogen/Creatinine [Mass ratio] 10 ratio Invalid Interpretation Code 7 - 27 ratio AO ADM SS WBC (Bld) [#/Vol] 10.9 103/mcL Invalid Interpretation Code 4.6 - 10.8 10^3/mcL AO Workflow SS MGon 12-13-2022 Magnesium [Mass/Vol] 2.0 mg/dL Normal 1.8-2.4 [facility] ([place]) Comment on above: Order Comment: May a dd-on to ED labs. Thank you. Performed By: #### M Dodie ####[address] [place], [place] [address] [facility] 12-13-2022 Troponin I High Sensitivity 10.2 ng/L Normal 0.0-76.2 [facility] ([place] Comment on above: Performed By: #### C BC, GFR, TROPHS, ADIFF, BMP, AIDAN, W ####[place] [address] [place], [place] [address] XR CHEST 1 VIEWon 12-13-2022 XR CHEST 1 VIEW Normal [facility] ([place] NM BONE IMAGING WHOLE BODYon 12-01-2022 NM BONE IMAGING WHOLE BODY Normal [facility] [place] CURon 11-30-2022 CUR Normal [facility] [place] XR HIP 3-4 VIEWS BILATERALon 11-26-2022 XR HIP 3-4 VIEWS BILATERAL Normal [facility] [place] XR PELVIS 1 OR 2 VIEWSon XR PELVIS 1 OR 2 VIEWS Normal [facility] ([place]) .Auto Diffon 11-19-2022 Basophil, Absolute 0.1 10 3/mcL Normal 0.0-0.2 [facility] ([place]) Comment on above: Performed By: #### A DIFF, AIDAN VIERA MDW, BMP, GFR, CBC ####[address] [address] Basophils/100 WBC (Bld) 1.4 % Normal 0.0-2.5 [facility] ([place]) Comment on above: Performed By: #### A DIFF, AIDAN VIERA MDW, BMP, GFR, CBC ####[address] [address] Eosinophil, Absolute 0.4 10 3/mcL Normal 0.0-0.4 [facility] ([place]) Comment on above: Performed By: #### A DIFF, AIDAN VIERA MDW, BMP, GFR, CBC ####[address] [address] Eosinophils/100 WBC (Bld) 4.7 % Normal 0.0-7.0 [facility] ([place]) Comment on above: Performed By: #### A DIFF, AIDAN VIERA, VERA, BMP, GFR, CBC ####[address] [address] Lymphocyte, Absolute 1.2 10 3/mcL Normal 0.8-3.9 [facility] ([place]) Comment on above: Performed By: #### A DIFF, TROPHS, ANEU, MDW, BMP, GFR, CBC ####[address] [address] Lymphocytes/100 WBC (Bld) 13.4 % Normal 10.0-50.0 [facility] ([place]) Comment on above: Performed By: #### A DIFF, TROPHS, ANEU, MDW, BMP, GFR, CBC ####[address] [address] Monocyte, Absolute 0.8 10 3/mcL Normal 0.2-1.0 [facility] ([place]) Comment on above: Performed By: #### A DIFF, TROPHS, ANEU, MDW, BMP, GFR, CBC ####[address] [address] Monocytes/100 WBC (Bld) 9.1 % Normal 1.7-13.0 [facility] ([place]) Comment on above: Performed By: #### A DIFF, TROPHS, ANEU, MDW, BMP, GFR, CBC ####[address] [address] Neutrophils/100 WBC (Bld) 71.4 % Normal 37.0-80.0 [facility] ([place]) Comment on above: Performed By: #### A DIFF, TROPHS, ANEU, MDW, BMP, GFR, CBC ####[address] [address] .GFRon 11-19-2022 GFR 76 ml/min/1.73sqm Normal [facility] ([place]) Comment on above: Result Comment: GFR Population mean for , Non- Americans Ages 20-29 = 116 mL/min/1.73 sq.m. Ages 30-39 = 107 mL/min/1.73 sq.m. Ages 40-49 = 99 mL/min/1.73 sq.m. Ages 50-59 = 93 mL/min/1.73 sq.m. Ages 60-69 = 85 mL/min/1.73 sq.m. Ages 70+ = 75 mL/min/1.73 sq.m.Chronic Kidney Disease: Less than 60 mL/min/1.73 square metersEnd Stage Renal Disease: Less than 15 mL/min/1.73 square meters Performed By: #### A DIFF, TROPHS, ANEU, MDW, BMP, GFR, CBC ####[address] [address] GFR Non- 62 ml/min/1.73sqm Normal [facility] ([place]) Comment on above: Result Comment: GFR Population mean for , Non- Americans Ages 20-29 = 116 mL/min/1.73 sq.m. Ages 30-39 = 107 mL/min/1.73 sq.m. Ages 40-49 = 99 mL/min/1.73 sq.m. Ages 50-59 = 93 mL/min/1.73 sq.m. Ages 60-69 = 85 mL/min/1.73 sq.m. Ages 70+ = 75 mL/min/1.73 sq.m.Chronic Kidney Disease: Less than 60 mL/min/1.73 square metersEnd Stage Renal Disease: Less than 15 mL/min/1.73 square meters Performed By: #### A DIFF, TROPHS, ANEU, MDW, BMP, GFR, CBC ####[place] [address] .MDWon 11-19-2022 Monocyte Distribution Width 18.15 Normal 0.00-20.00 [facility] ([place]) Comment on above: Result Comment: For ED adult patients suspected of sepsis, MDW<=20.0 does not rule out sepsis or risk of sepsis Performed By: #### A DIFF, TROPHS, ANEU, MDW, BMP, GFR, CBC ####[address] [address] .NEUABSon 11-19-2022 Neutrophil, Absolute 6.4 10 3/mcL High 2.9-6.2 [facility] ([place]) Comment on above: Performed By: #### A DIFF, TROPHS, ANEU, MDW, BMP, GFR, CBC ####[address] [address] BMPon 11-19-2022 BUN/Creatinine Ratio 11 ratio Normal 7-27 [facility] ([place]) Comment on above: Performed By: #### A DIFF, TROPHS, ANEU, MDW, BMP, GFR, CBC ####[address] [address] Calcium [Mass/Vol] 9.0 mg/dL Normal 8.4-10.2 [facility] ([place]) Comment on above: Performed By: #### A DIFF, TROPHS, ANEU, MDW, BMP, GFR, CBC ####[address] [address] Chloride [Moles/Vol] 104 mmol/L Normal 98-107 [facility] ([place]) Comment on above: Performed By: #### A DIFF, TROPHS, ANEU, MDW, BMP, GFR, CBC ####[place] [id number] CO2 [Moles/Vol] 31 mmol/L Normal 23-31 [facility] ([place] Comment on above: Performed By: #### A DIFF, TROPHS, ANEU, MDW, BMP, GFR, CBC ####[place] [address] Creatinine [Mass/Vol] 1.12 mg/dL Normal 0.70-1.30 [facility] ([place]) Comment on above: Performed By: #### A DIFF, TROPHS, ANEU, MDW, BMP, GFR, CBC ####[place] [address] Electrolyte Balance 8.0 mEq/L Normal 4.0-15.0 [facility] ([place]) Comment on above: Performed By: #### A DIFF, TROPHS, ANEU, MDW, BMP, GFR, CBC ####[place] [address] Glucose [Mass/Vol] 124 mg/dL High 83-110 [facility] ([place]) Comment on above: Performed By: #### A DIFF, TROPHS, ANEU, MDW, BMP, GFR, CBC ####[place] [address] Potassium [Moles/Vol] 5.0 mmol/L Normal 3.5-5.1 [facility] ([place]) Comment on above: Performed By: #### A DIFF, TROPHS, ANEU, MDW, BMP, GFR, CBC ####[place] [address] Sodium [Moles/Vol] 143 mmol/L Normal 136-145 [facility] ([place]) Comment on above: Performed By: #### A DIFF, TROPHS, ANEU, MDW, BMP, GFR, CBC ####[place] [address] Urea nitrogen [Mass/Vol] 12 mg/dL Normal 7-18 [facility] ([place]) Comment on above: Performed By: #### A DIFF, TROPHS, ANEU, MDW, BMP, GFR, CBC ####[place] [address] CBCon 11-19-2022 Erythrocyte distribution width (RBC) [Ratio] 14.9 % High 11.5-14.5 [facility] ([place] Comment on above: Performed By: #### A DIFF, TROPHS, ANEU, MDW, BMP, GFR, CBC ####[place] [address] Hematocrit (Bld) [Volume fraction] 42.7 % Normal 42.0-52.0 [facility] ([place] Comment on above: Performed By: #### A DIFF, TROPHS, ANEU, MDW, BMP, GFR, CBC ####[place] [address] Hgb 14.4 G/dL Normal 14.0-18.0 [facility] ([place] Comment on above: Performed By: #### A DIFF, TROPHS, ANEU, MDW, BMP, GFR, CBC ####[place] [address] MCH (RBC) [Entitic mass] 31.0 pg Normal 27.0-31.2 [facility] ([place] Comment on above: Performed By: #### A DIFF, TROPHS, ANEU, MDW, BMP, GFR, CBC ####[place] [address] MCHC 33.8 G/dL Normal 31.8-35.4 [facility] ([place] Comment on above: Performed By: #### A DIFF, TROPHS, ANEU, MDW, BMP, GFR, CBC ####[place] [address] MCV (RBC) [Entitic vol] 91.9 fL Normal 80.0-94.0 [facility] ([place] Comment on above: Performed By: #### A DIFF, TROPHS, ANEU, MDW, BMP, GFR, CBC ####[place] [address] Platelet 222 10 3/mcL Normal 130-400 [facility] ([place] Comment on above: Performed By: #### A DIFF, TROPHS, ANEU, MDW, BMP, GFR, CBC ####[place] [address] Platelet mean volume (Bld) [Entitic vol] 7.5 fL Normal 7.4-10.4 [facility] ([place] Comment on above: Performed By: #### A DIFF, TROPHS, ANEU, MDW, BMP, GFR, CBC ####[place] [address] RBC 4.65 10 6/mcL Normal 4.04-6.13 [facility] ([place] Comment on above: Performed By: #### A DIFF, TROPHS, ANEU, MDW, BMP, GFR, CBC ####[place] [address] WBC 9.0 10 3/mcL Normal 4.6-10.8 [facility] ([place]) Comment on above: Performed By: #### A DIFF, TROPHS, ANEU, MDW, BMP, GFR, CBC ####[place] [address] LABORATORYOrdered By: SYSTEM SYSTEM on 11-19-2022 Basophil, Absolute 0.1 103/mcL Invalid Interpretation Code 0.0 - 0.2 10^3/mcL AO Workflow SS Basophils/100 WBC (Bld) 1.4 % Invalid Interpretation Code 0.0 - 2.5 % AO Workflow SS Calcium [Mass/Vol] 9.0 mg/dL Invalid Interpretation Code 8.4 - 10.2 mg/dL AO ADM SS Chloride [Moles/Vol] 104 mmol/L Invalid Interpretation Code 98 - 107 mmol/L AO ADM SS CO2 [Moles/Vol] 31 mmol/L Invalid Interpretation Code 23 - 31 mmol/L AO ADM SS Creatinine [Mass/Vol] 1.12 mg/dL Invalid Interpretation Code 0.70 - 1.30 mg/dL AO ADM SS Electrolyte Balance 8.0 mEq/L Invalid Interpretation Code 4.0 - 15.0 mEq/L AO ADM SS Eosinophil, Absolute 0.4 103/mcL Invalid Interpretation Code 0.0 - 0.4 10^3/mcL AO Workflow SS Eosinophils/100 WBC (Bld) 4.7 % Invalid Interpretation Code 0.0 - 7.0 % AO Workflow SS Erythrocyte distribution width (RBC) [Ratio] 14.9 % Invalid Interpretation Code 11.5 - 14.5 % AO Workflow SS GFR/1.73 sq M.predicted among blacks MDRD (S/P/Bld) [Vol rate/Area] 76 ml/min/1.73sqm Invalid Interpretation Code AO Chemistry S Comment on above: Interpretive Data: GFR Population mean for , Non- Americans Ages 20-29 = 116 mL/min/1.73 sq.m. Ages 30-39 = 107 mL/min/1.73 sq.m. Ages 40-49 = 99 mL/min/1.73 sq.m. Ages 50-59 = 93 mL/min/1.73 sq.m. Ages 60-69 = 85 mL/min/1.73 sq.m. Ages 70+ = 75 mL/min/1.73 sq.m. Chronic Kidney Disease: Less than 60 mL/min/1.73 square meters End Stage Renal Disease: Less than 15 mL/min/1.73 square meters GFR/1.73 sq M.predicted among non-blacks MDRD (S/P/Bld) [Vol rate/Area] 62 ml/min/1.73sqm Invalid Interpretation Code AO Chemistry S Comment on above: Interpretive Data: GFR Population mean for , Non- Americans Ages 20-29 = 116 mL/min/1.73 sq.m. Ages 30-39 = 107 mL/min/1.73 sq.m. Ages 40-49 = 99 mL/min/1.73 sq.m. Ages 50-59 = 93 mL/min/1.73 sq.m. Ages 60-69 = 85 mL/min/1.73 sq.m. Ages 70+ = 75 mL/min/1.73 sq.m. Chronic Kidney Disease: Less than 60 mL/min/1.73 square meters End Stage Renal Disease: Less than 15 mL/min/1.73 square meters Glucose [Mass/Vol] 124 mg/dL Invalid Interpretation Code 83 - 110 mg/dL AO ADM SS Hematocrit (Bld) [Volume fraction] 42.7 % Invalid Interpretation Code 42.0 - 52.0 % AO Workflow SS Hemoglobin (Bld) [Mass/Vol] 14.4 G/dL Invalid Interpretation Code 14.0 - 18.0 G/dL AO Workflow SS Lymphocyte, Absolute 1.2 103/mcL Invalid Interpretation Code 0.8 - 3.9 10^3/mcL AO Workflow SS Lymphocytes/100 WBC (Bld) 13.4 % Invalid Interpretation Code 10.0 - 50.0 % AO Workflow SS MCH (RBC) [Entitic mass] 31.0 pg Invalid Interpretation Code 27.0 - 31.2 pg AO Workflow SS MCHC 33.8 G/dL Invalid Interpretation Code 31.8 - 35.4 G/dL AO Workflow SS MCV (RBC) [Entitic vol] 91.9 fL Invalid Interpretation Code 80.0 - 94.0 fL AO Workflow SS Monocyte distribution width Auto (Bld) [Entitic vol] 18.15 1 Invalid Interpretation Code 0.00 - 20.00 AO Workflow SS Comment on above: Result Comment: For ED adult patients suspected of sepsis, MDW<=20.0 does not rule out sepsis or risk of sepsis Monocyte, Absolute 0.8 103/mcL Invalid Interpretation Code 0.2 - 1.0 10^3/mcL AO Workflow SS Monocytes/100 WBC (Bld) 9.1 % Invalid Interpretation Code 1.7 - 13.0 % AO Workflow SS Neutrophil, Absolute 6.4 103/mcL Invalid Interpretation Code 2.9 - 6.2 10^3/mcL AO Workflow SS Neutrophils/100 WBC (Bld) 71.4 % Invalid Interpretation Code 37.0 - 80.0 % AO Workflow SS Platelet mean volume (Bld) [Entitic vol] 7.5 fL Invalid Interpretation Code 7.4 - 10.4 fL AO Workflow SS Platelets (Bld) [#/Vol] 222 103/mcL Invalid Interpretation Code 130 - 400 10^3/mcL AO Workflow SS Potassium [Moles/Vol] 5.0 mmol/L Invalid Interpretation Code 3.5 - 5.1 mmol/L AO ADM SS RBC (Bld) [#/Vol] 4.65 106/mcL Invalid Interpretation Code 4.04 - 6.13 10^6/mcL AO Workflow SS Sodium [Moles/Vol] 143 mmol/L Invalid Interpretation Code 136 - 145 mmol/L AO ADM SS Troponin I.cardiac DL <= 0.01 ng/mL [Mass/Vol] 9.0 ng/L Invalid Interpretation Code 0.0 - 76.2 ng/L AO ADM SS Urea nitrogen [Mass/Vol] 12 mg/dL Invalid Interpretation Code 7 - 18 mg/dL AO ADM SS Urea nitrogen/Creatinine [Mass ratio] 11 ratio Invalid Interpretation Code 7 - 27 ratio AO ADM SS WBC (Bld) [#/Vol] 9.0 103/mcL Invalid Interpretation Code 4.6 - 10.8 10^3/mcL AO Workflow SS TROPHSon 11-19-2022 Troponin I High Sensitivity 9.0 ng/L Normal 0.0-76.2 [facility]) Comment on above: Performed By: #### A DIFF, TROPHS, ANEU, MDW, BMP, GFR, CBC ####[place] [address] XR CHEST 1 VIEWon 11-19-2022 XR CHEST 1 VIEW Normal [facility] ([place] THORAX W/O CONTRASTon CT THORAX W/O CONTRAST Normal [facility]) CRPon 10-27-2022 C-Reactive Protein 0.1 mg/dL Normal 0.0-0.3 [facility]) Comment on above: Performed By: #### C RP, PBNP, ESR ####[facility] [place], [place] [address] ESRon 10-27-2022 Erythrocyte Sed Rate 7 mm/hr Normal 0-20 [facility]) Comment on above: Performed By: #### C RP, PBNP, ESR ####[address] [place], [place] [address] LABORATORYOrdered By: SYSTEM SYSTEM on 10-27-2022 CRP [Mass/Vol] 0.1 mg/dL Invalid Interpretation Code 0.0 - 0.3 mg/dL AO ADM SS Natriuretic peptide.B prohormone N-Terminal [Mass/Vol] 288 pg/mL Invalid Interpretation Code 0 - 450 pg/mL AO ADM SS Comment on above: Interpretive Data: N T-proBNP results of less than 300 pg/mL effectively rules out acute congestive heart failure with 99% negative predictive value. LABORATORYOrdered By: Anamaria Oviedo on 10-27-2022 ESR Photometric method (Bld) [Velocity] 7 mm/hr Invalid Interpretation Code 0 - 20 mm/hr AO Man Heme SS PBNPon 10-27-2022 Natriuretic peptide B (Bld) [Mass/Vol] 288 pg/mL Normal 0-450 [facility] ([place]) Comment on above: Result Comment: NT-p roBNP results of less than 300 pg/mL effectivelyrules out acute congestive heart failure with 99% negative predictive value. Performed By: #### C RP, PBNP, ESR ####[address] [place], [place] [address] Acid fast bacilli (AFB) cult ureOrdered By: Nika Donald on 10-20-2022 Mycobacterium sp identified Org specific cx Nom (Unsp spec) [facility] Bacteria identified Respirat ory culture Nom (Unsp spec)Ordered By: Nika Donald on 10-20-2022 Respiratory Culture Acinetobacter junii [facility] Gram stain for investigation of transfusion reactionOrdered By: Nika Donald on 10-20-2022 Microscopic observation Gram stain Nom (Unsp spec) [facility] Thin prep Papanicolaou smear with manual screeningOrdered By: Nika Donald on 10-20-2022 Thin prep Papanicolaou smear with manual screening [facility] XR CHEST 2 VIEWSon 3 XR CHEST 2 VIEWS Normal [facility] ([place]) Gram stain for investigation of transfusion reactionOrdered By: Nika Donald on 09-23-2022 Microscopic observation Gram stain Nom (Unsp spec) [facility] LABORATORYOrdered By: SYSTEM SYSTEM on 09-23-2022 Basophil, Absolute 0.0 103/mcL Invalid Interpretation Code 0.0 - 0.2 10^3/mcL AO Workflow SS Basophils/100 WBC (Bld) 0.4 % Invalid Interpretation Code 0.0 - 2.5 % AO Workflow SS Eosinophil, Absolute 0.2 103/mcL Invalid Interpretation Code 0.0 - 0.4 10^3/mcL AO Workflow SS Eosinophils/100 WBC (Bld) 1.6 % Invalid Interpretation Code 0.0 - 7.0 % AO Workflow SS Erythrocyte distribution width (RBC) [Ratio] 14.5 % Invalid Interpretation Code 11.5 - 14.5 % AO Workflow SS Hematocrit (Bld) [Volume fraction] 44.0 % Invalid Interpretation Code 42.0 - 52.0 % AO Workflow SS Hemoglobin (Bld) [Mass/Vol] 14.7 G/dL Invalid Interpretation Code 14.0 - 18.0 G/dL AO Workflow SS Lymphocyte, Absolute 1.1 103/mcL Invalid Interpretation Code 0.8 - 3.9 10^3/mcL AO Workflow SS Lymphocytes/100 WBC (Bld) 10.3 % Invalid Interpretation Code 10.0 - 50.0 % AO Workflow SS MCH (RBC) [Entitic mass] 30.7 pg Invalid Interpretation Code 27.0 - 31.2 pg AO Workflow SS MCHC 33.4 G/dL Invalid Interpretation Code 31.8 - 35.4 G/dL AO Workflow SS MCV (RBC) [Entitic vol] 92.0 fL Invalid Interpretation Code 80.0 - 94.0 fL AO Workflow SS Monocyte, Absolute 1.0 103/mcL Invalid Interpretation Code 0.2 - 1.0 10^3/mcL AO Workflow SS Monocytes/100 WBC (Bld) 9.1 % Invalid Interpretation Code 1.7 - 13.0 % AO Workflow SS Neutrophil, Absolute 8.7 103/mcL Invalid Interpretation Code 2.9 - 6.2 10^3/mcL AO Workflow SS Neutrophils/100 WBC (Bld) 78.6 % Invalid Interpretation Code 37.0 - 80.0 % AO Workflow SS Platelet mean volume (Bld) [Entitic vol] 7.4 fL Invalid Interpretation Code 7.4 - 10.4 fL AO Workflow SS Platelets (Bld) [#/Vol] 214 103/mcL Invalid Interpretation Code 130 - 400 10^3/mcL AO Workflow SS RBC (Bld) [#/Vol] 4.78 106/mcL Invalid Interpretation Code 4.04 - 6.13 10^6/mcL AO Workflow SS WBC (Bld) [#/Vol] 11.1 103/mcL Invalid Interpretation Code 4.6 - 10.8 10^3/mcL AO Workflow SS LABORATORYOrdered By: Marina Pimentel on 09-23-2022 CRP [Mass/Vol] mg/dL Invalid Interpretation Code 0.0 - 0.9 mg/dL AO Chemistry S LABORATORYOrdered By: Rizwana Jolly on 09-23-2022 ESR Photometric method (Bld) [Velocity] 15 mm/hr Invalid Interpretation Code 0 - 20 mm/hr AO Man Heme SS Microbial respiratory cultur eOrdered By: Nika Donald on 09-23-2022 Bacteria identified Respiratory culture Nom (Unsp spec) or Staphylococcus aureus isolated. [facility] LABORATORYOrdered By: SYSTEM SYSTEM on 09-09-2022 Calcium [Mass/Vol] 8.9 mg/dL Normal 8.4 - 10. 2 mg/dL AO ADM SS Chloride [Moles/Vol] 102 mmol/L Normal 98 - 10 7 mmol/L AO ADM SS CO2 [Moles/Vol] 32 mmol/L High 23 - 31 mmol/L AO ADM SS Creatinine [Mass/Vol] 1.15 mg/dL Normal 0.70 - 1.30 mg/dL AO ADM SS Electrolyte Balance 6.0 mEq/L Normal 4.0 - 15 .0 mEq/L AO ADM SS GFR/1.73 sq M.predicted among blacks MDRD (S/P/Bld) [Vol rate/Area] 74 ml/min/1.73sqm Invalid Interpretation Code AO Chemistry S Comment on above: Interpretive Data: GFR Population mean for , Non- Americans Ages 20-29 = 116 mL/min/1.73 sq.m. Ages 30-39 = 107 mL/min/1.73 sq.m. Ages 40-49 = 99 mL/min/1.73 sq.m. Ages 50-59 = 93 mL/min/1.73 sq.m. Ages 60-69 = 85 mL/min/1.73 sq.m. Ages 70+ = 75 mL/min/1.73 sq.m. Chronic Kidney Disease: Less than 60 mL/min/1.73 square meters End Stage Renal Disease: Less than 15 mL/min/1.73 square meters GFR/1.73 sq M.predicted among non-blacks MDRD (S/P/Bld) [Vol rate/Area] 61 ml/min/1.73sqm Invalid Interpretation Code AO Chemistry S Comment on above: Interpretive Data: GFR Population mean for , Non- Americans Ages 20-29 = 116 mL/min/1.73 sq.m. Ages 30-39 = 107 mL/min/1.73 sq.m. Ages 40-49 = 99 mL/min/1.73 sq.m. Ages 50-59 = 93 mL/min/1.73 sq.m. Ages 60-69 = 85 mL/min/1.73 sq.m. Ages 70+ = 75 mL/min/1.73 sq.m. Chronic Kidney Disease: Less than 60 mL/min/1.73 square meters End Stage Renal Disease: Less than 15 mL/min/1.73 square meters Glucose [Mass/Vol] 97 mg/dL Normal 83 - 110 mg/dL AO ADM SS Natriuretic peptide.B prohormone N-Terminal [Mass/Vol] 175 pg/mL Normal 0 - 450 pg/mL AO ADM SS Comment on above: Interpretive Data: N T-proBNP results of less than 300 pg/mL effectively rules out acute congestive heart failure with 99% negative predictive value. Potassium [Moles/Vol] 4.8 mmol/L Normal 3.5 - 5.1 mmol/L AO ADM SS Sodium [Moles/Vol] 140 mmol/L Normal 136 - 145 mmol/L AO ADM SS Urea nitrogen [Mass/Vol] 16 mg/dL Normal 7 - 18 mg/dL AO ADM SS Urea nitrogen/Creatinine [Mass ratio] 14 ratio Normal 7 - 27 ratio AO ADM SS LABORATORYOrdered By: Daniela Hart on 08-27-2022 Albumin DL <= 20 mg/L (U) [Mass/Vol] 302 mcg/dL Invalid Interpretation Code AO ADM SS Albumin/Creatinine DL <= 20 mg/L (U) [Mass ratio] 3 mcg/mg Invalid Interpretation Code 0 - 30 mcg/mg AO ADM SS Creatinine (U) [Mass/Vol] 106.0 mg/dL Invalid Interpretation Code 39.0 - 259.0 mg/dL AO ADM SS LABORATORYOrdered By: avox on 07-14-2022 Calcium [Mass/Vol] 8.8 mg/dL Invalid Interpretation Code 8.4 - 10.2 mg/dL AO ADM SS Chloride [Moles/Vol] 103 mmol/L Invalid Interpretation Code 98 - 107 mmol/L AO ADM SS CO2 [Moles/Vol] 30 mmol/L Invalid Interpretation Code 23 - 31 mmol/L AO ADM SS Creatinine [Mass/Vol] 1.10 mg/dL Invalid Interpretation Code 0.70 - 1.30 mg/dL AO ADM SS Electrolyte Balance 9.0 mEq/L Invalid Interpretation Code 4.0 - 15.0 mEq/L AO ADM SS GFR/1.73 sq M.predicted among blacks MDRD (S/P/Bld) [Vol rate/Area] 77 ml/min/1.73sqm Invalid Interpretation Code AO Chemistry S GFR/1.73 sq M.predicted among non-blacks MDRD (S/P/Bld) [Vol rate/Area] 64 ml/min/1.73sqm Invalid Interpretation Code AO Chemistry S Glucose [Mass/Vol] 99 mg/dL Invalid Interpretation Code 83 - 110 mg/dL AO ADM SS Natriuretic peptide.B prohormone N-Terminal [Mass/Vol] 212 pg/mL Invalid Interpretation Code 0 - 450 pg/mL AO ADM SS Potassium [Moles/Vol] 4.6 mmol/L Invalid Interpretation Code 3.5 - 5.1 mmol/L AO ADM SS Sodium [Moles/Vol] 142 mmol/L Invalid Interpretation Code 136 - 145 mmol/L AO ADM SS Urea nitrogen [Mass/Vol] 17 mg/dL Invalid Interpretation Code 7 - 18 mg/dL AO ADM SS Urea nitrogen/Creatinine [Mass ratio] 15 ratio Invalid Interpretation Code 7 - 27 ratio AO ADM SS Bacteria identified Respirat ory culture Nom (Unsp spec)Ordered By: Dr. Donald on 06-10-2022 Respiratory Culture Presumptive C albicans [facility] Gram stain for investigation of transfusion reactionOrdered By: Dr. Donald on 06-07-2022 Microscopic observation Gram stain Nom (Unsp spec) [facility] Bacteria identified Respirat ory culture Nom (Unsp spec)Ordered By: Nika Donald on 06-06-2022 Respiratory Culture Presumptive C albicans [facility] Gram stain for investigation of transfusion reactionOrdered By: Nika Donald on 06-06-2022 Microscopic observation Gram stain Nom (Unsp spec) [facility] LABORATORYOrdered By: Profound SYSTEM on 06-05-2022 Calcium [Mass/Vol] 8.6 mg/dL Invalid Interpretation Code 8.4 - 10.2 mg/dL AO ADM SS Chloride [Moles/Vol] 101 mmol/L Invalid Interpretation Code 98 - 107 mmol/L AO ADM SS CO2 [Moles/Vol] 31 mmol/L Invalid Interpretation Code 23 - 31 mmol/L AO ADM SS Creatinine [Mass/Vol] 1.16 mg/dL Invalid Interpretation Code 0.70 - 1.30 mg/dL AO ADM SS Electrolyte Balance 8.0 mEq/L Invalid Interpretation Code 4.0 - 15.0 mEq/L AO ADM SS GFR 73 ml/min/1.73sqm Invalid Interpretation Code AO Chemistry S GFR Non- 60 ml/min/1.73sqm Invalid Interpretation Code AO Chemistry S Glucose [Mass/Vol] 176 mg/dL Invalid Interpretation Code 83 - 110 mg/dL AO ADM SS Natriuretic peptide.B prohormone N-Terminal [Mass/Vol] 434 pg/mL Invalid Interpretation Code 0 - 450 pg/mL AO ADM SS Potassium [Moles/Vol] 4.1 mmol/L Invalid Interpretation Code 3.5 - 5.1 mmol/L AO ADM SS Sodium [Moles/Vol] 140 mmol/L Invalid Interpretation Code 136 - 145 mmol/L AO ADM SS Urea nitrogen [Mass/Vol] 21 mg/dL Invalid Interpretation Code 7 - 18 mg/dL AO ADM SS Urea nitrogen/Creatinine [Mass ratio] 18 ratio Invalid Interpretation Code 7 - 27 ratio AO ADM SS LABORATORYOrdered By: SYSTEM SYSTEM on 05-23-2022 Albumin BCP dye [Mass/Vol] 3.8 G/dL Invalid Interpretation Code 3.4 - 4.8 G/dL AO ADM SS Albumin/Globulin [Mass ratio] 1.4 {ratio} Invalid Interpretation Code 1.1 - 2.5 ratio AO ADM SS ALP [Catalytic activity/Vol] 75 U/L Invalid Interpretation Code 40 - 135 U/L AO ADM SS ALT With P-5'-P [Catalytic activity/Vol] 20 U/L Invalid Interpretation Code 16 - 63 U/L AO ADM SS AST With P-5'-P [Catalytic activity/Vol] 12 U/L Invalid Interpretation Code 10 - 40 U/L AO ADM SS Bilirubin [Mass/Vol] 0.4 mg/dL Invalid Interpretation Code 0.2 - 1.0 mg/dL AO ADM SS Calcium [Mass/Vol] 8.7 mg/dL Invalid Interpretation Code 8.4 - 10.2 mg/dL AO ADM SS Chloride [Moles/Vol] 105 mmol/L Invalid Interpretation Code 98 - 107 mmol/L AO ADM SS CO2 [Moles/Vol] 30 mmol/L Invalid Interpretation Code 23 - 31 mmol/L AO ADM SS Creatinine [Mass/Vol] 1.14 mg/dL Invalid Interpretation Code 0.70 - 1.30 mg/dL AO ADM SS Electrolyte Balance 5.0 mEq/L Invalid Interpretation Code 4.0 - 15.0 mEq/L AO ADM SS GFR 74 ml/min/1.73sqm Invalid Interpretation Code AO Chemistry S GFR Non- 61 ml/min/1.73sqm Invalid Interpretation Code AO Chemistry S Globulin 2.7 G/dL Invalid Interpretation Code AO ADM SS Glucose [Mass/Vol] 102 mg/dL Invalid Interpretation Code 83 - 110 mg/dL AO ADM SS Natriuretic peptide.B prohormone N-Terminal [Mass/Vol] 212 pg/mL Invalid Interpretation Code 0 - 450 pg/mL AO ADM SS Potassium [Moles/Vol] 4.3 mmol/L Invalid Interpretation Code 3.5 - 5.1 mmol/L AO ADM SS Protein [Mass/Vol] 6.5 G/dL Invalid Interpretation Code 6.4 - 8.2 G/dL AO ADM SS Sodium [Moles/Vol] 140 mmol/L Invalid Interpretation Code 136 - 145 mmol/L AO ADM SS Urea nitrogen [Mass/Vol] 9 mg/dL Invalid Interpretation Code 7 - 18 mg/dL AO ADM SS Urea nitrogen/Creatinine [Mass ratio] 8 ratio Invalid Interpretation Code 7 - 27 ratio AO ADM SS LABORATORYOrdered By: Marina Pimentel on 05-23-2022 Basophil, Absolute 0.1 103/mcL Invalid Interpretation Code 0.0 - 0.2 10^3/mcL AO Workflow SS Basophils/100 WBC (Bld) 0.9 % Invalid Interpretation Code 0.0 - 2.5 % AO Workflow SS Eosinophil, Absolute 0.4 103/mcL Invalid Interpretation Code 0.0 - 0.4 10^3/mcL AO Workflow SS Eosinophils/100 WBC (Bld) 4.1 % Invalid Interpretation Code 0.0 - 7.0 % AO Workflow SS Erythrocyte distribution width (RBC) [Ratio] 14.6 % Invalid Interpretation Code 11.5 - 14.5 % AO Workflow SS Hematocrit (Bld) [Volume fraction] 42.6 % Invalid Interpretation Code 42.0 - 52.0 % AO Workflow SS Hemoglobin (Bld) [Mass/Vol] 14.3 G/dL Invalid Interpretation Code 14.0 - 18.0 G/dL AO Workflow SS Lymphocyte, Absolute 1.2 103/mcL Invalid Interpretation Code 0.8 - 3.9 10^3/mcL AO Workflow SS Lymphocytes/100 WBC (Bld) 11.3 % Invalid Interpretation Code 10.0 - 50.0 % AO Workflow SS MCH (RBC) [Entitic mass] 30.9 pg Invalid Interpretation Code 27.0 - 31.2 pg AO Workflow SS MCHC 33.6 G/dL Invalid Interpretation Code 31.8 - 35.4 G/dL AO Workflow SS MCV (RBC) [Entitic vol] 91.9 fL Invalid Interpretation Code 80.0 - 94.0 fL AO Workflow SS Monocyte, Absolute 1.1 103/mcL Invalid Interpretation Code 0.2 - 1.0 10^3/mcL AO Workflow SS Monocytes/100 WBC (Bld) 10.6 % Invalid Interpretation Code 1.7 - 13.0 % AO Workflow SS Neutrophil, Absolute 7.7 103/mcL Invalid Interpretation Code 2.9 - 6.2 10^3/mcL AO Workflow SS Neutrophils/100 WBC (Bld) 73.1 % Invalid Interpretation Code 37.0 - 80.0 % AO Workflow SS Platelet mean volume (Bld) [Entitic vol] 7.5 fL Invalid Interpretation Code 7.4 - 10.4 fL AO Workflow SS Platelets (Bld) [#/Vol] 234 103/mcL Invalid Interpretation Code 130 - 400 10^3/mcL AO Workflow SS RBC (Bld) [#/Vol] 4.63 106/mcL Invalid Interpretation Code 4.04 - 6.13 10^6/mcL AO Workflow SS WBC (Bld) [#/Vol] 10.5 103/mcL Invalid Interpretation Code 4.6 - 10.8 10^3/mcL AO Workflow SS LABORATORYOrdered By: Abigail Garza on 05-07-2022 Basophil, Absolute 0.1 103/mcL Invalid Interpretation Code 0.0 - 0.2 10^3/mcL AO Workflow SS Basophils/100 WBC (Bld) 1.3 % Invalid Interpretation Code 0.0 - 2.5 % AO Workflow SS Eosinophil, Absolute 0.5 103/mcL Invalid Interpretation Code 0.0 - 0.4 10^3/mcL AO Workflow SS Eosinophils/100 WBC (Bld) 5.8 % Invalid Interpretation Code 0.0 - 7.0 % AO Workflow SS Erythrocyte distribution width (RBC) [Ratio] 14.2 % Invalid Interpretation Code 11.5 - 14.5 % AO Workflow SS Hematocrit (Bld) [Volume fraction] 40.1 % Invalid Interpretation Code 42.0 - 52.0 % AO Workflow SS Hemoglobin (Bld) [Mass/Vol] 13.6 G/dL Invalid Interpretation Code 14.0 - 18.0 G/dL AO Workflow SS Lymphocyte, Absolute 1.0 103/mcL Invalid Interpretation Code 0.8 - 3.9 10^3/mcL AO Workflow SS Lymphocytes/100 WBC (Bld) 12.1 % Invalid Interpretation Code 10.0 - 50.0 % AO Workflow SS MCH (RBC) [Entitic mass] 31.0 pg Invalid Interpretation Code 27.0 - 31.2 pg AO Workflow SS MCHC 33.8 G/dL Invalid Interpretation Code 31.8 - 35.4 G/dL AO Workflow SS MCV (RBC) [Entitic vol] 91.6 fL Invalid Interpretation Code 80.0 - 94.0 fL AO Workflow SS Monocyte, Absolute 0.6 103/mcL Invalid Interpretation Code 0.2 - 1.0 10^3/mcL AO Workflow SS Monocytes/100 WBC (Bld) 7.7 % Invalid Interpretation Code 1.7 - 13.0 % AO Workflow SS Neutrophil, Absolute 6.1 103/mcL Invalid Interpretation Code 2.9 - 6.2 10^3/mcL AO Workflow SS Neutrophils/100 WBC (Bld) 73.1 % Invalid Interpretation Code 37.0 - 80.0 % AO Workflow SS Platelet mean volume (Bld) [Entitic vol] 7.3 fL Invalid Interpretation Code 7.4 - 10.4 fL AO Workflow SS Platelets (Bld) [#/Vol] 238 103/mcL Invalid Interpretation Code 130 - 400 10^3/mcL AO Workflow SS RBC (Bld) [#/Vol] 4.38 106/mcL Invalid Interpretation Code 4.04 - 6.13 10^6/mcL AO Workflow SS WBC (Bld) [#/Vol] 8.3 103/mcL Invalid Interpretation Code 4.6 - 10.8 10^3/mcL AO Workflow SS LABORATORYOrdered By: SYSTEM SYSTEM on 05-07-2022 Calcium [Mass/Vol] 8.7 mg/dL Invalid Interpretation Code 8.4 - 10.2 mg/dL AO ADM SS Chloride [Moles/Vol] 103 mmol/L Invalid Interpretation Code 98 - 107 mmol/L AO ADM SS CO2 [Moles/Vol] 30 mmol/L Invalid Interpretation Code 23 - 31 mmol/L AO ADM SS Creatinine [Mass/Vol] 1.06 mg/dL Invalid Interpretation Code 0.70 - 1.30 mg/dL AO ADM SS Electrolyte Balance 7.0 mEq/L Invalid Interpretation Code 4.0 - 15.0 mEq/L AO ADM SS GFR 81 ml/min/1.73sqm Invalid Interpretation Code AO Chemistry S GFR Non- 67 ml/min/1.73sqm Invalid Interpretation Code AO Chemistry S Glucose [Mass/Vol] 109 mg/dL Invalid Interpretation Code 83 - 110 mg/dL AO ADM SS Natriuretic peptide.B prohormone N-Terminal [Mass/Vol] 198 pg/mL Invalid Interpretation Code 0 - 450 pg/mL AO ADM SS Potassium [Moles/Vol] 4.9 mmol/L Invalid Interpretation Code 3.5 - 5.1 mmol/L AO ADM SS Sodium [Moles/Vol] 140 mmol/L Invalid Interpretation Code 136 - 145 mmol/L AO ADM SS Urea nitrogen [Mass/Vol] 9 mg/dL Invalid Interpretation Code 7 - 18 mg/dL AO ADM SS Urea nitrogen/Creatinine [Mass ratio] 8 ratio Invalid Interpretation Code 7 - 27 ratio AO ADM SS LABORATORYOrdered By: SYSTEM SYSTEM on 04-28-2022 Basophils (Bld) [#/Vol] 0.1 103/mcL Invalid Interpretation Code 0.0 - 0.3 10^3/mcL AH Workflow SS Basophils/100 WBC (Bld) 0.9 % Invalid Interpretation Code 0.0 - 2.5 % AH Workflow SS Calcium [Mass/Vol] 8.8 mg/dL Invalid Interpretation Code 8.7 - 10.4 mg/dL AH ADM SS Chloride [Moles/Vol] 106 mmol/L Invalid Interpretation Code 98 - 110 mEq/L AH ADM SS CO2 [Moles/Vol] 27 mmol/L Invalid Interpretation Code 22 - 32 mEq/L AH ADM SS Creatinine [Mass/Vol] 1.00 mg/dL Invalid Interpretation Code 0.60 - 1.40 mg/dL AH ADM SS Electrolyte Balance 6.0 mEq/L Invalid Interpretation Code 4.0 - 15.0 mEq/L ADM SS Eosinophils (Bld) [#/Vol] 0.4 103/mcL Invalid Interpretation Code 0.0 - 0.7 10^3/mcL Workflow SS Eosinophils/100 WBC (Bld) 3.3 % Invalid Interpretation Code 0.0 - 6.0 % Workflow SS Erythrocyte distribution width (RBC) [Ratio] 14.0 % Invalid Interpretation Code 11.5 - 15.5 % Workflow SS GFR/1.73 sq M.predicted among blacks MDRD (S/P/Bld) [Vol rate/Area] ml/min/1.73sqm Invalid Interpretation Code ADM SS GFR/1.73 sq M.predicted among non-blacks MDRD (S/P/Bld) [Vol rate/Area] ml/min/1.73sqm Invalid Interpretation Code ADM SS Glucose [Mass/Vol] 132 mg/dL Invalid Interpretation Code 82 - 115 mg/dL ADM SS Hematocrit (Bld) [Volume fraction] 38.3 % Invalid Interpretation Code 40.0 - 52.0 % Workflow SS Hemoglobin (Bld) [Mass/Vol] 12.6 G/dL Invalid Interpretation Code 13.0 - 17.5 G/dL Workflow SS Lymphocytes (Bld) [#/Vol] 1.4 103/mcL Invalid Interpretation Code 0.9 - 4.3 10^3/mcL Workflow SS Lymphocytes/100 WBC (Bld) 12.6 % Invalid Interpretation Code 20.0 - 40.0 % Workflow SS Magnesium [Mass/Vol] 2.1 mg/dL Invalid Interpretation Code 1.6 - 2.4 mg/dL ADM SS MCH (RBC) [Entitic mass] 30.6 pg Invalid Interpretation Code 27.0 - 33.0 pg Workflow SS MCHC 32.9 G/dL Invalid Interpretation Code 32.0 - 36.0 G/dL Workflow SS MCV (RBC) [Entitic vol] 93.0 fL Invalid Interpretation Code 81.0 - 100.0 fL Workflow SS Monocytes (Bld) [#/Vol] 1.2 103/mcL Invalid Interpretation Code 0.1 - 1.4 10^3/mcL Workflow SS Monocytes/100 WBC (Bld) 10.7 % Invalid Interpretation Code 2.0 - 13.0 % AH Workflow SS Neutrophils (Bld) [#/Vol] 8.0 103/mcL Invalid Interpretation Code 2.3 - 8.1 10^3/mcL AH Workflow SS Neutrophils/100 WBC (Bld) 72.5 % Invalid Interpretation Code 50.0 - 75.0 % AH Workflow SS Platelet mean volume (Bld) [Entitic vol] 7.6 fL Invalid Interpretation Code 6.4 - 10.5 fL AH Workflow SS Platelets (Bld) [#/Vol] 203 103/mcL Invalid Interpretation Code 150 - 450 10^3/mcL AH Workflow SS Potassium [Moles/Vol] 4.3 mmol/L Invalid Interpretation Code 3.5 - 5.0 mEq/L ADM SS RBC (Bld) [#/Vol] 4.11 106/mcL Invalid Interpretation Code 4.50 - 6.00 10^6/mcL AH Workflow SS Sodium [Moles/Vol] 139 mmol/L Invalid Interpretation Code 136 - 145 mEq/L ADM SS Urea nitrogen [Mass/Vol] 13.0 mg/dL Invalid Interpretation Code 8.0 - 22.0 mg/dL ADM SS Urea nitrogen/Creatinine [Mass ratio] 13.0 ratio Invalid Interpretation Code 10.0 - 22.0 ratio AH ADM SS WBC (Bld) [#/Vol] 11.0 103/mcL Invalid Interpretation Code 4.5 - 10.8 10^3/mcL Workflow SS LABORATORYOrdered By: SYSTEM SYSTEM on 04-27-2022 Basophils (Bld) [#/Vol] 0.1 103/mcL Invalid Interpretation Code 0.0 - 0.3 10^3/mcL Workflow SS Basophils/100 WBC (Bld) 0.7 % Invalid Interpretation Code 0.0 - 2.5 % AH Workflow SS Calcium [Mass/Vol] 8.8 mg/dL Invalid Interpretation Code 8.7 - 10.4 mg/dL ADM SS Chloride [Moles/Vol] 107 mmol/L Invalid Interpretation Code 98 - 110 mEq/L ADM SS CO2 [Moles/Vol] 28 mmol/L Invalid Interpretation Code 22 - 32 mEq/L ADM SS Creatinine [Mass/Vol] 1.00 mg/dL Invalid Interpretation Code 0.60 - 1.40 mg/dL ADM SS Electrolyte Balance 4.0 mEq/L Invalid Interpretation Code 4.0 - 15.0 mEq/L ADM SS Eosinophils (Bld) [#/Vol] 0.4 103/mcL Invalid Interpretation Code 0.0 - 0.7 10^3/mcL Workflow SS Eosinophils/100 WBC (Bld) 3.0 % Invalid Interpretation Code 0.0 - 6.0 % Workflow SS Erythrocyte distribution width (RBC) [Ratio] 13.7 % Invalid Interpretation Code 11.5 - 15.5 % Workflow SS GFR/1.73 sq M.predicted among blacks MDRD (S/P/Bld) [Vol rate/Area] ml/min/1.73sqm Invalid Interpretation Code ADM SS GFR/1.73 sq M.predicted among non-blacks MDRD (S/P/Bld) [Vol rate/Area] ml/min/1.73sqm Invalid Interpretation Code ADM SS Glucose [Mass/Vol] 133 mg/dL Invalid Interpretation Code 82 - 115 mg/dL ADM SS Hematocrit (Bld) [Volume fraction] 40.8 % Invalid Interpretation Code 40.0 - 52.0 % Workflow SS Hemoglobin (Bld) [Mass/Vol] 13.4 G/dL Invalid Interpretation Code 13.0 - 17.5 G/dL Workflow SS Lymphocytes (Bld) [#/Vol] 1.5 103/mcL Invalid Interpretation Code 0.9 - 4.3 10^3/mcL Workflow SS Lymphocytes/100 WBC (Bld) 12.0 % Invalid Interpretation Code 20.0 - 40.0 % Workflow SS Magnesium [Mass/Vol] 2.0 mg/dL Invalid Interpretation Code 1.6 - 2.4 mg/dL ADM SS MCH (RBC) [Entitic mass] 30.6 pg Invalid Interpretation Code 27.0 - 33.0 pg Workflow SS MCHC 32.8 G/dL Invalid Interpretation Code 32.0 - 36.0 G/dL Workflow SS MCV (RBC) [Entitic vol] 93.2 fL Invalid Interpretation Code 81.0 - 100.0 fL Workflow SS Monocytes (Bld) [#/Vol] 1.2 103/mcL Invalid Interpretation Code 0.1 - 1.4 10^3/mcL Workflow SS Monocytes/100 WBC (Bld) 9.7 % Invalid Interpretation Code 2.0 - 13.0 % Workflow SS Neutrophils (Bld) [#/Vol] 9.2 103/mcL Invalid Interpretation Code 2.3 - 8.1 10^3/mcL AH Workflow SS Neutrophils/100 WBC (Bld) 74.6 % Invalid Interpretation Code 50.0 - 75.0 % AH Workflow SS Platelet mean volume (Bld) [Entitic vol] 7.6 fL Invalid Interpretation Code 6.4 - 10.5 fL Workflow SS Platelets (Bld) [#/Vol] 220 103/mcL Invalid Interpretation Code 150 - 450 10^3/mcL AH Workflow SS Potassium [Moles/Vol] 4.2 mmol/L Invalid Interpretation Code 3.5 - 5.0 mEq/L AH ADM SS Comment on above: Result Comment: Spec imen slightly hemolyzed. RBC (Bld) [#/Vol] 4.38 106/mcL Invalid Interpretation Code 4.50 - 6.00 10^6/mcL Workflow SS Sodium [Moles/Vol] 139 mmol/L Invalid Interpretation Code 136 - 145 mEq/L AH ADM SS Urea nitrogen [Mass/Vol] 13.0 mg/dL Invalid Interpretation Code 8.0 - 22.0 mg/dL AH ADM SS Urea nitrogen/Creatinine [Mass ratio] 13.0 ratio Invalid Interpretation Code 10.0 - 22.0 ratio AH ADM SS WBC (Bld) [#/Vol] 12.3 103/mcL Invalid Interpretation Code 4.5 - 10.8 10^3/mcL Workflow SS LABORATORYOrdered By: SYSTEM SYSTEM on 04-26-2022 Natriuretic peptide.B prohormone N-Terminal [Mass/Vol] 4219 pg/mL Invalid Interpretation Code 0 - 450 pg/mL AO ADM SS Calcium [Mass/Vol] 8.2 mg/dL Invalid Interpretation Code 8.4 - 10.2 mg/dL AO ADM SS Chloride [Moles/Vol] 100 mmol/L Invalid Interpretation Code 98 - 107 mmol/L AO ADM SS CO2 [Moles/Vol] 31 mmol/L Invalid Interpretation Code 23 - 31 mmol/L AO ADM SS Creatinine [Mass/Vol] 1.22 mg/dL Invalid Interpretation Code 0.70 - 1.30 mg/dL AO ADM SS Electrolyte Balance 6.0 mEq/L Invalid Interpretation Code 4.0 - 15.0 mEq/L AO ADM SS GFR 69 ml/min/1.73sqm Invalid Interpretation Code AO Chemistry S GFR Non- 57 ml/min/1.73sqm Invalid Interpretation Code AO Chemistry S Glucose [Mass/Vol] 125 mg/dL Invalid Interpretation Code 83 - 110 mg/dL AO ADM SS Potassium [Moles/Vol] 4.4 mmol/L Invalid Interpretation Code 3.5 - 5.1 mmol/L AO ADM SS Sodium [Moles/Vol] 137 mmol/L Invalid Interpretation Code 136 - 145 mmol/L AO ADM SS Troponin I.cardiac DL <= 0.01 ng/mL [Mass/Vol] 19.3 ng/L Invalid Interpretation Code 0.0 - 76.2 ng/L AO ADM SS Urea nitrogen [Mass/Vol] 17 mg/dL Invalid Interpretation Code 7 - 18 mg/dL AO ADM SS Urea nitrogen/Creatinine [Mass ratio] 14 ratio Invalid Interpretation Code 7 - 27 ratio AO ADM SS LABORATORYOrdered By: Whitney Valverde on 04-26-2022 Basophil, Absolute 0.1 103/mcL Invalid Interpretation Code 0.0 - 0.2 10^3/mcL AO Workflow SS Basophils/100 WBC (Bld) 0.7 % Invalid Interpretation Code 0.0 - 2.5 % AO Workflow SS Eosinophil, Absolute 0.3 103/mcL Invalid Interpretation Code 0.0 - 0.4 10^3/mcL AO Workflow SS Eosinophils/100 WBC (Bld) 1.8 % Invalid Interpretation Code 0.0 - 7.0 % AO Workflow SS Erythrocyte distribution width (RBC) [Ratio] 14.7 % Invalid Interpretation Code 11.5 - 14.5 % AO Workflow SS Hematocrit (Bld) [Volume fraction] 43.9 % Invalid Interpretation Code 42.0 - 52.0 % AO Workflow SS Hemoglobin (Bld) [Mass/Vol] 14.9 G/dL Invalid Interpretation Code 14.0 - 18.0 G/dL AO Workflow SS Lymphocyte, Absolute 1.6 103/mcL Invalid Interpretation Code 0.8 - 3.9 10^3/mcL AO Workflow SS Lymphocytes/100 WBC (Bld) 11.2 % Invalid Interpretation Code 10.0 - 50.0 % AO Workflow SS MCH (RBC) [Entitic mass] 31.1 pg Invalid Interpretation Code 27.0 - 31.2 pg AO Workflow SS MCHC 34.0 G/dL Invalid Interpretation Code 31.8 - 35.4 G/dL AO Workflow SS MCV (RBC) [Entitic vol] 91.5 fL Invalid Interpretation Code 80.0 - 94.0 fL AO Workflow SS Monocyte distribution width Auto (Bld) [Entitic vol] 16.78 Invalid Interpretation Code 0.00 - 20.00 AO Workflow SS Comment on above: Result Comment: For ED adult patients suspected of sepsis, MDW<=20.0 does not rule out sepsis or risk of sepsis Monocyte, Absolute 1.4 103/mcL Invalid Interpretation Code 0.2 - 1.0 10^3/mcL AO Workflow SS Monocytes/100 WBC (Bld) 9.6 % Invalid Interpretation Code 1.7 - 13.0 % AO Workflow SS Neutrophil, Absolute 11.2 103/mcL Invalid Interpretation Code 2.9 - 6.2 10^3/mcL AO Workflow SS Neutrophils/100 WBC (Bld) 76.7 % Invalid Interpretation Code 37.0 - 80.0 % AO Workflow SS Platelet mean volume (Bld) [Entitic vol] 7.4 fL Invalid Interpretation Code 7.4 - 10.4 fL AO Workflow SS Platelets (Bld) [#/Vol] 268 103/mcL Invalid Interpretation Code 130 - 400 10^3/mcL AO Workflow SS RBC (Bld) [#/Vol] 4.80 106/mcL Invalid Interpretation Code 4.04 - 6.13 10^6/mcL AO Workflow SS WBC (Bld) [#/Vol] 14.6 103/mcL Invalid Interpretation Code 4.6 - 10.8 10^3/mcL AO Workflow SS LABORATORYOrdered By: SYSTEM SYSTEM on 03-18-2022 Calcium [Mass/Vol] 8.9 mg/dL Invalid Interpretation Code 8.4 - 10.2 mg/dL AO ADM SS Chloride [Moles/Vol] 100 mmol/L Invalid Interpretation Code 98 - 107 mmol/L AO ADM SS CO2 [Moles/Vol] 28 mmol/L Invalid Interpretation Code 23 - 31 mmol/L AO ADM SS Creatinine [Mass/Vol] 1.26 mg/dL Invalid Interpretation Code 0.70 - 1.30 mg/dL AO ADM SS Electrolyte Balance 9.0 mEq/L Invalid Interpretation Code 4.0 - 15.0 mEq/L AO ADM SS GFR 66 ml/min/1.73sqm Invalid Interpretation Code AO Chemistry S GFR Non- 55 ml/min/1.73sqm Invalid Interpretation Code AO Chemistry S Glucose [Mass/Vol] 93 mg/dL Invalid Interpretation Code 83 - 110 mg/dL AO ADM SS Natriuretic peptide.B prohormone N-Terminal [Mass/Vol] 144 pg/mL Invalid Interpretation Code 0 - 450 pg/mL AO ADM SS Potassium [Moles/Vol] 4.9 mmol/L Invalid Interpretation Code 3.5 - 5.1 mmol/L AO ADM SS Sodium [Moles/Vol] 137 mmol/L Invalid Interpretation Code 136 - 145 mmol/L AO ADM SS Urea nitrogen [Mass/Vol] 12 mg/dL Invalid Interpretation Code 7 - 18 mg/dL AO ADM SS Urea nitrogen/Creatinine [Mass ratio] 10 ratio Invalid Interpretation Code 7 - 27 ratio AO ADM SS LABORATORYOrdered By: Profound SYSTEM on 02-28-2022 Calcium [Mass/Vol] 8.9 mg/dL Invalid Interpretation Code 8.4 - 10.2 mg/dL AO ADM SS Chloride [Moles/Vol] 103 mmol/L Invalid Interpretation Code 98 - 107 mmol/L AO ADM SS CO2 [Moles/Vol] 30 mmol/L Invalid Interpretation Code 23 - 31 mmol/L AO ADM SS Creatinine [Mass/Vol] 1.06 mg/dL Invalid Interpretation Code 0.70 - 1.30 mg/dL AO ADM SS Electrolyte Balance 6.0 mEq/L Invalid Interpretation Code 4.0 - 15.0 mEq/L AO ADM SS GFR 81 ml/min/1.73sqm Invalid Interpretation Code AO Chemistry S GFR Non- 67 ml/min/1.73sqm Invalid Interpretation Code AO Chemistry S Glucose [Mass/Vol] 115 mg/dL Invalid Interpretation Code 83 - 110 mg/dL AO ADM SS Natriuretic peptide.B prohormone N-Terminal [Mass/Vol] 216 pg/mL Invalid Interpretation Code 0 - 450 pg/mL AO ADM SS Potassium [Moles/Vol] 4.4 mmol/L Invalid Interpretation Code 3.5 - 5.1 mmol/L AO ADM SS Sodium [Moles/Vol] 139 mmol/L Invalid Interpretation Code 136 - 145 mmol/L AO ADM SS Urea nitrogen [Mass/Vol] 7 mg/dL Invalid Interpretation Code 7 - 18 mg/dL AO ADM SS Urea nitrogen/Creatinine [Mass ratio] 7 ratio Invalid Interpretation Code 7 - 27 ratio AO ADM SS LABORATORYOrdered By: Rizwana Jolly on 02-14-2022 Troponin I.cardiac DL <= 0.01 ng/mL [Mass/Vol] 13.5 ng/L Invalid Interpretation Code 0.0 - 76.2 ng/L AO ADM SS Albumin BCP dye [Mass/Vol] 3.3 G/dL Invalid Interpretation Code 3.4 - 4.8 G/dL AO ADM SS Albumin/Globulin [Mass ratio] 1.1 {ratio} Invalid Interpretation Code 1.1 - 2.5 ratio AO ADM SS ALP [Catalytic activity/Vol] 75 U/L Invalid Interpretation Code 40 - 135 U/L AO ADM SS ALT With P-5'-P [Catalytic activity/Vol] 17 U/L Invalid Interpretation Code 16 - 63 U/L AO ADM SS AST With P-5'-P [Catalytic activity/Vol] 11 U/L Invalid Interpretation Code 10 - 40 U/L AO ADM SS Bilirubin [Mass/Vol] 0.5 mg/dL Invalid Interpretation Code 0.2 - 1.0 mg/dL AO ADM SS Calcium [Mass/Vol] 8.5 mg/dL Invalid Interpretation Code 8.4 - 10.2 mg/dL AO ADM SS Chloride [Moles/Vol] 103 mmol/L Invalid Interpretation Code 98 - 107 mmol/L AO ADM SS CO2 [Moles/Vol] 31 mmol/L Invalid Interpretation Code 23 - 31 mmol/L AO ADM SS Creatinine [Mass/Vol] 1.24 mg/dL Invalid Interpretation Code 0.70 - 1.30 mg/dL AO ADM SS Electrolyte Balance 6.0 mEq/L Invalid Interpretation Code 4.0 - 15.0 mEq/L AO ADM SS Globulin 2.9 G/dL Invalid Interpretation Code AO ADM SS Glucose [Mass/Vol] 126 mg/dL Invalid Interpretation Code 83 - 110 mg/dL AO ADM SS Magnesium [Mass/Vol] 2.1 mg/dL Invalid Interpretation Code 1.8 - 2.4 mg/dL AO ADM SS Natriuretic peptide.B prohormone N-Terminal [Mass/Vol] 1260 pg/mL Invalid Interpretation Code 0 - 450 pg/mL AO ADM SS Potassium [Moles/Vol] 4.3 mmol/L Invalid Interpretation Code 3.5 - 5.1 mmol/L AO ADM SS Protein [Mass/Vol] 6.2 G/dL Invalid Interpretation Code 6.4 - 8.2 G/dL AO ADM SS Sodium [Moles/Vol] 140 mmol/L Invalid Interpretation Code 136 - 145 mmol/L AO ADM SS Troponin I.cardiac DL <= 0.01 ng/mL [Mass/Vol] 15.7 ng/L Invalid Interpretation Code 0.0 - 76.2 ng/L AO ADM SS TSH Qn 1.80 m[IU]/L Invalid Interpretation Code 0.36 - 3.74 mcIU/mL AO ADM SS Urea nitrogen [Mass/Vol] 13 mg/dL Invalid Interpretation Code 7 - 18 mg/dL AO ADM SS Urea nitrogen/Creatinine [Mass ratio] 10 ratio Invalid Interpretation Code 7 - 27 ratio AO ADM SS LABORATORYOrdered By: Marina Biggs on 02-14-2022 Basophil, Absolute 0.1 103/mcL Invalid Interpretation Code 0.0 - 0.2 10^3/mcL AO Workflow SS Basophils/100 WBC (Bld) 1.0 % Invalid Interpretation Code 0.0 - 2.5 % AO Workflow SS Eosinophil, Absolute 0.2 103/mcL Invalid Interpretation Code 0.0 - 0.4 10^3/mcL AO Workflow SS Eosinophils/100 WBC (Bld) 1.5 % Invalid Interpretation Code 0.0 - 7.0 % AO Workflow SS Erythrocyte distribution width (RBC) [Ratio] 14.5 % Invalid Interpretation Code 11.5 - 14.5 % AO Workflow SS Hematocrit (Bld) [Volume fraction] 40.3 % Invalid Interpretation Code 42.0 - 52.0 % AO Workflow SS Hemoglobin (Bld) [Mass/Vol] 13.7 G/dL Invalid Interpretation Code 14.0 - 18.0 G/dL AO Workflow SS Lymphocyte, Absolute 1.5 103/mcL Invalid Interpretation Code 0.8 - 3.9 10^3/mcL AO Workflow SS Lymphocytes/100 WBC (Bld) 13.8 % Invalid Interpretation Code 10.0 - 50.0 % AO Workflow SS MCH (RBC) [Entitic mass] 31.5 pg Invalid Interpretation Code 27.0 - 31.2 pg AO Workflow SS MCHC 34.0 G/dL Invalid Interpretation Code 31.8 - 35.4 G/dL AO Workflow SS MCV (RBC) [Entitic vol] 92.7 fL Invalid Interpretation Code 80.0 - 94.0 fL AO Workflow SS Monocyte distribution width Auto (Bld) [Entitic vol] 18.37 Invalid Interpretation Code 0.00 - 20.00 AO Workflow SS Comment on above: Result Comment: For ED adult patients suspected of sepsis, MDW<=20.0 does not rule out sepsis or risk of sepsis Monocyte, Absolute 0.9 103/mcL Invalid Interpretation Code 0.2 - 1.0 10^3/mcL AO Workflow SS Monocytes/100 WBC (Bld) 8.1 % Invalid Interpretation Code 1.7 - 13.0 % AO Workflow SS Neutrophil, Absolute 8.2 103/mcL Invalid Interpretation Code 2.9 - 6.2 10^3/mcL AO Workflow SS Neutrophils/100 WBC (Bld) 75.6 % Invalid Interpretation Code 37.0 - 80.0 % AO Workflow SS Platelet mean volume (Bld) [Entitic vol] 7.0 fL Invalid Interpretation Code 7.4 - 10.4 fL AO Workflow SS Platelets (Bld) [#/Vol] 213 103/mcL Invalid Interpretation Code 130 - 400 10^3/mcL AO Workflow SS RBC (Bld) [#/Vol] 4.35 106/mcL Invalid Interpretation Code 4.04 - 6.13 10^6/mcL AO Workflow SS WBC (Bld) [#/Vol] 10.9 103/mcL Invalid Interpretation Code 4.6 - 10.8 10^3/mcL AO Workflow SS LABORATORYOrdered By: SYSTEM SYSTEM on 02-14-2022 GFR 67 ml/min/1.73sqm Invalid Interpretation Code AO Chemistry S GFR Non- 56 ml/min/1.73sqm Invalid Interpretation Code AO Chemistry S Absolute lymphocyte counton 01-31-2022 Lymphocytes Auto (Unsp spec) [#/Vol] 0.71 10*3/uL 0.83-4.51 [facility] Work Phone: Basophil percentageon 2021 Basophils/100 WBC (Bld) 0.5 % 0-1 [facility] Work Phone: Chloride [Moles/Vol] 103 mmol/L 98-107 [facility] Work Phone: Eosinophils/100 WBC (Bld) 0.1 % 0-5 [facility] Work Phone: Glucose [Mass/Vol] 139 mg/dL 74-106 [facility] Work Phone: Comment on above: Fasting Glucose resu lt greater than or equal to 126 mg/dL suggests DIABETES MELLITUS per A.D.A. criteria. Neutrophils (Bld) [#/Vol] 11.1 10*3/uL 2.0-7.7 [facility] Work Phone: Neutrophils/100 WBC (Bld) 85.6 % 47-70 [facility] Work Phone: [phone] Potassium [Moles/Vol] 4.5 mmol/L 3.5-5.1 [facility] Work Phone: Sodium [Moles/Vol] 137 mmol/L 136-145 [facility] Work Phone: [phone] WBC (Bld) [#/Vol] 13.0 10*3/uL 4.4-11.0 [facility]: Blood erythrocytes count (nu mber/volume)on 01-31-2022 RBC (Bld) [#/Vol] 4.56 10*6/uL 4.6-6.2 [facility] Work Phone: Blood hemoglobin measurement (mass/volume)on 01-31-2022 Hemoglobin (Bld) [Mass/Vol] 14.0 g/dL 13.0-16.5 [facility] Work Phone: Blood lymphocytes/100 leukoc yteson 01-31-2022 Lymphocytes/100 WBC (Bld) 5.5 % 19-41 [facility] Work Phone: [phone] Blood monocytes/100 leukocyt eson 01-31-2022 Monocytes/100 WBC (Bld) 4.7 % 0-10 [facility] Work Phone: Blood platelet mean volumeon 01-31-2022 Platelet mean volume (Bld) [Entitic vol] 9.3 fL 6.2-12.0 [facility] Work Phone: Determination of erythrocyte mean corpuscular volume (MCV)on 01-31-2022 MCV (RBC) [Entitic vol] 93.2 fL 80-94 [facility] Work Phone: [phone] Hematocrit Auto (Bld) [Volum e fraction]on 01-31-2022 Hematocrit (Bld) [Volume fraction] 42.5 % 40-54 [facility] Work Phone: INR in Blood by Coagulation assayon 01-31-2022 INR Coag (Bld) [Relative time] 1.4 {INR} [facility] Work Phone: Laboratory - Chemistry and C hemistry - challengeon 01-31-2022 CO2 [Moles/Vol] 27.0 mmol/L 21.0-32.0 [facility] Work Phone: Natriuretic peptide B (Bld) [Mass/Vol] 217.8 pg/mL 0-100 [facility] Work Phone: Urea nitrogen/Creatinine [Mass ratio] 15.1 mg/mg 10-20 [facility] Work Phone: Laboratory - Coagulationon 1 04-02-2021 PT Coag (PPP) [Time] 16.7 s 11.7-14.9 [facility] Work Phone: Laboratory - Hematology and Cell countson 01-31-2022 Erythrocyte distribution width (RBC) [Entitic vol] 46.8 fL 35.1-43.9 [facility] Work Phone: Erythrocyte distribution width (RBC) [Ratio] 13.7 % 11.6-14.6 [facility] Work Phone: Immature granulocytes/100 WBC (Bld) 3.600 % 0.0-0.9 [facility] Work Phone: Comment on above: IG% - Immature Granu locytes (promyelocytes, myelocytes and metamyelocytes) > 1% indicates that a LEFT SHIFT is Present. MCH (RBC) [Entitic mass] 30.7 pg 27.0-32.0 [facility] Work Phone: Nucleated RBC/100 WBC (Bld) [Ratio] 0 % 0-5 [facility] Work Phone: MCHC Auto (RBC) [Mass/Vol]on 01-31-2022 MCHC (RBC) [Mass/Vol] 32.9 g/dL 32-36 [facility] Work Phone: No Panel Informationon 01-31 Troponin I High Sensitivity 11 pg/mL 3.0-78.0 [facility] Work Phone: Comment on above: Please Note: [place] t Units and Gender Specific Reference Ranges. For more information see Policy Stat Procedure [place] High Sensitivity Troponin (TNIH) and attachments. Estimated Creatinine Clearance Calc 51.08 ml/min [facility] Work Phone: Estimated GFR (MDRD) Amer 86 mL/min >60 [facility] Work Phone: Comment on above: GFR Calc Estimated GFR (MDRD) Non-Af Amer 71 mL/min >60 [facility] Work Phone: Comment on above: Non- GFR Calc Platelets bldon 01-31-2022 Platelets (Bld) [#/Vol] 269 10*3/uL 150-450 [facility] Work Phone: Serum or plasma calcium misbah urement (mass/volume)on 01-31-2022 Calcium [Mass/Vol] 9.0 mg/dL 8.5-10.1 [facility] Work Phone: Serum or plasma creatinine m easurement (mass/volume)on 01-31-2022 Creatinine [Mass/Vol] 1.06 mg/dL 0.70-1.30 [facility] Work Phone: Comment on above: The validity of the calculated GFR & GFRAA in patients over 70 years has not been determined. Clinical correlation is essential. Serum or plasma urea nitroge n measurement (mass/volume)on 01-31-2022 Urea nitrogen [Mass/Vol] 16 mg/dL 09-30 [facility] Work Phone: Thin prep Papanicolaou smear with manual screeningon 01-31-2022 Thin prep Papanicolaou smear with manual screening 7 07-28 [facility] Work Phone: LABORATORYOrdered By: Whitney Valverde on 08-28-2021 Albumin BCP dye [Mass/Vol] 3.8 G/dL Invalid Interpretation Code 3.4 - 4.8 G/dL AO ADM SS Albumin/Globulin [Mass ratio] 1.5 {ratio} Invalid Interpretation Code 1.1 - 2.5 ratio AO ADM SS ALP [Catalytic activity/Vol] 84 U/L Invalid Interpretation Code 40 - 135 U/L AO ADM SS ALT With P-5'-P [Catalytic activity/Vol] 14 U/L Invalid Interpretation Code 16 - 63 U/L AO ADM SS AST With P-5'-P [Catalytic activity/Vol] 12 U/L Invalid Interpretation Code 10 - 40 U/L AO ADM SS Bilirubin [Mass/Vol] 0.3 mg/dL Invalid Interpretation Code 0.2 - 1.0 mg/dL AO ADM SS Calcium [Mass/Vol] 9.4 mg/dL Invalid Interpretation Code 8.4 - 10.2 mg/dL AO ADM SS Chloride [Moles/Vol] 104 mmol/L Invalid Interpretation Code 98 - 107 mmol/L AO ADM SS Cholesterol [Mass/Vol] 150 mg/dL Invalid Interpretation Code 0 - 200 mg/dL AO ADM SS Cholesterol in HDL [Mass/Vol] 50 mg/dL Invalid Interpretation Code 40 - 60 mg/dL AO ADM SS Cholesterol in LDL [Mass/Vol] 79 mg/dL Invalid Interpretation Code 0 - 130 mg/dL AO ADM SS CO2 [Moles/Vol] 28 mmol/L Invalid Interpretation Code 23 - 31 mmol/L AO ADM SS Creatinine [Mass/Vol] 1.13 mg/dL Invalid Interpretation Code 0.70 - 1.30 mg/dL AO ADM SS Electrolyte Balance 8.0 mEq/L Invalid Interpretation Code 4.0 - 15.0 mEq/L AO ADM SS Globulin 2.5 G/dL Invalid Interpretation Code AO ADM SS Glucose [Mass/Vol] 115 mg/dL Invalid Interpretation Code 83 - 110 mg/dL AO ADM SS Potassium [Moles/Vol] 4.2 mmol/L Invalid Interpretation Code 3.5 - 5.1 mmol/L AO ADM SS Protein [Mass/Vol] 6.3 G/dL Invalid Interpretation Code 6.4 - 8.2 G/dL AO ADM SS Sodium [Moles/Vol] 140 mmol/L Invalid Interpretation Code 136 - 145 mmol/L AO ADM SS Triglyceride [Mass/Vol] 105 mg/dL Invalid Interpretation Code 0 - 150 mg/dL AO ADM SS TSH Qn 1.76 m[IU]/L Invalid Interpretation Code 0.36 - 3.74 mcIU/mL AO ADM SS Urea nitrogen [Mass/Vol] 16 mg/dL Invalid Interpretation Code 7 - 18 mg/dL AO ADM SS Urea nitrogen/Creatinine [Mass ratio] 14 ratio Invalid Interpretation Code 7 - 27 ratio AO ADM SS Vit. D 25-Hydroxy 55.3 ng/mL Invalid Interpretation Code AO ADM SS LABORATORYOrdered By: Kolby Camacho on 08-28-2021 Basophil, Absolute 0.1 103/mcL Invalid Interpretation Code 0.0 - 0.2 10^3/mcL AO Workflow SS Basophils/100 WBC (Bld) 1.3 % Invalid Interpretation Code 0.0 - 2.5 % AO Workflow SS Eosinophil, Absolute 0.2 103/mcL Invalid Interpretation Code 0.0 - 0.4 10^3/mcL AO Workflow SS Eosinophils/100 WBC (Bld) 1.9 % Invalid Interpretation Code 0.0 - 7.0 % AO Workflow SS Erythrocyte distribution width (RBC) [Ratio] 14.6 % Invalid Interpretation Code 11.5 - 14.5 % AO Workflow SS Hematocrit (Bld) [Volume fraction] 40.7 % Invalid Interpretation Code 42.0 - 52.0 % AO Workflow SS Hgb 13.6 G/dL Invalid Interpretation Code 14.0 - 18.0 G/dL AO Workflow SS Lymphocyte, Absolute 1.2 103/mcL Invalid Interpretation Code 0.8 - 3.9 10^3/mcL AO Workflow SS Lymphocytes/100 WBC (Bld) 13.1 % Invalid Interpretation Code 10.0 - 50.0 % AO Workflow SS MCH (RBC) [Entitic mass] 30.5 pg Invalid Interpretation Code 27.0 - 31.2 pg AO Workflow SS MCHC 33.5 G/dL Invalid Interpretation Code 31.8 - 35.4 G/dL AO Workflow SS MCV (RBC) [Entitic vol] 91.2 fL Invalid Interpretation Code 80.0 - 94.0 fL AO Workflow SS Monocyte, Absolute 0.7 103/mcL Invalid Interpretation Code 0.2 - 1.0 10^3/mcL AO Workflow SS Monocytes/100 WBC (Bld) 7.9 % Invalid Interpretation Code 1.7 - 13.0 % AO Workflow SS Neutrophil, Absolute 7.2 103/mcL Invalid Interpretation Code 2.9 - 6.2 10^3/mcL AO Workflow SS Neutrophils/100 WBC (Bld) 75.8 % Invalid Interpretation Code 37.0 - 80.0 % AO Workflow SS Platelet 256 103/mcL Invalid Interpretation Code 130 - 400 10^3/mcL AO Workflow SS Platelet mean volume (Bld) [Entitic vol] 7.6 fL Invalid Interpretation Code 7.4 - 10.4 fL AO Workflow SS RBC 4.46 106/mcL Invalid Interpretation Code 4.04 - 6.13 10^6/mcL AO Workflow SS WBC 9.4 103/mcL Invalid Interpretation Code 4.6 - 10.8 10^3/mcL AO Workflow SS LABORATORYOrdered By: SYSTEM SYSTEM on 08-28-2021 Cobalamin (Vitamin B12) [Mass/Vol] 446 pg/mL Invalid Interpretation Code 211 - 911 pg/mL AH ADM SS GFR 75 ml/min/1.73sqm Invalid Interpretation Code AO Chemistry S GFR Non- 62 ml/min/1.73sqm Invalid Interpretation Code AO Chemistry S Monocyte distribution width Auto (Bld) [Entitic vol] Not Performed 1 *NA* (08/28/21 11:14 AM) Invalid Interpretation Code 0.00 - 20.00 AO Hematology S Comment on above: Result Comment: MDW testing performed only on adult ER patients between the ages of 18-89 years. LABORATORYOrdered By: Marina Pimentel on 02-21-2021 ADMITTED TO INTENSIVE CARE UNIT FOR CONDITION OF INTEREST:FIND:PT:^BRYAN ENT:ORD: No (02/21/21 12:00 PM) Invalid Interpretation Code AO Auto Urine SS EMPLOYED IN A HEALTHCARE SETTING:FIND:PT:^PATIE NT:ORD: No (02/21/21 12:00 PM) Invalid Interpretation Code AO Auto Urine SS FIRST TEST FOR CONDITION OF INTEREST:FIND:PT:^BRYAN ENT:ORD: No (02/21/21 12:00 PM) Invalid Interpretation Code AO Auto Urine SS HAS SYMPTOMS RELATED TO CONDITION OF INTEREST:FIND:PT:^BRYAN ENT:ORD: Yes (02/21/21 12:00 PM) Invalid Interpretation Code AO Auto Urine SS Illness or injury onset date and time [id number] Invalid Interpretation Code AO Auto Urine SS Patient was hospitalized because of this condition No (02/21/21 12:00 PM) Invalid Interpretation Code AO Auto Urine SS status Not (02/21/21 12:00 PM) Invalid Interpretation Code AO Auto Urine SS RESIDES IN A CONGREGATE CARE SETTING:FIND:PT:^SERGIO NT:ORD: No (02/21/21 12:00 PM) Invalid Interpretation Code AO Auto Urine SS SARS-CoV-2 (COVID-19) RNA JAYDA+probe Ql (Resp) Negative (02/21/21 12:00 PM) Invalid Interpretation Code Negative AO Auto Urine SS SARS-CoV-2 (COVID-19) RNA JAYDA+probe Ql (Unsp spec) Negative results do not preclude SARS-CoV-2 infection and should not be used as the sole basis for patient management decisions. Negative results must be combined with clinical observations, patient history, and epidemiological information.There is a risk of false negative values resulting from improperly collected, transported, or handled specimens.There is a risk of false negative values due to the presence of sequence variants in the pathogen targets of the assay, procedural errors, amplification inhibitors in specimens, or inadequate numbers of organisms for amplification.BRITTANY SARS-CoV-2 Assay is a Real-Time reverse-transcriptase polymerase chain reaction (RT-PCR) based qualitative in vitro diagnostic test intended for the qualitative detection of nucleic acid from the SARS-CoV-2 in nasopharyngeal swab specimens collected from individuals suspected of COVID-19 by their healthcare provider. Testing is limited to laboratories certified under the Clinical Laboratory Improvement Amendments of 1988 (CLIA), 42 U.S.C. 263a, to perform moderate and high complexity tests. Invalid Interpretation Code AO Auto Urine SS Bronchoalveolar lavage cultu re with Gram stain Respiratory Culture Pseudomonas aeroginosa [facility] Work Phone: Gram stain for investigation of transfusion reaction Microscopic observation Gram stain Nom (Unsp spec) [facility] Work Phone: Vital Signs Date Time Vital Sign Value Performing Clinician Facility 10-08-2024 13:20-0400 Body temperature 98.3 [degF] Dr. Malissa Rascon MD Work Phone: [facility] 10-08-2024 13:20-0400 Diastolic blood pressure 74 mm[Hg] Dr. Malissa Rascon MD Work Phone: [facility] 10-08-2024 13:20-0400 Heart rate 92 /min Dr. Malissa Rascon MD Work Phone: [facility] 10-08-2024 13:20-0400 Respiratory rate 18 /min Dr. Malissa Rascon MD Work Phone: [facility] 10-08-2024 13:20-0400 SaO2% (BldA) [Mass fraction] 88 % Dr. Malissa Rascon MD Work Phone: [facility] 10-08-2024 13:20-0400 Systolic blood pressure 110 mm[Hg] Dr. Malissa Rascon MD Work Phone: [facility] 08-05-2024 09:28-0400 Body temperature 98.6 [degF] Dr. Malissa Rascon MD Work Phone: [facility] 08-05-2024 09:28-0400 Diastolic blood pressure 71 mm[Hg] Dr. Malissa Rascon MD Work Phone: [facility] 08-05-2024 09:28-0400 Heart rate 67 /min Dr. Malissa Rascon MD Work Phone: [facility] 08-05-2024 09:28-0400 Respiratory rate 18 /min Dr. Malissa Rascon MD Work Phone: [facility] 08-05-2024 09:28-0400 SaO2% (BldA) [Mass fraction] 92 % Dr. Malissa Rascon MD Work Phone: [facility] 08-05-2024 09:28-0400 Systolic blood pressure 120 mm[Hg] Dr. Malissa Rascon MD Work Phone: [facility] 08-05-2024 06:32-0400 Body height 175.[address] Malissa Rascon MD Work Phone: [facility] 08-05-2024 06:32-0400 Body mass index (BMI) [Ratio] 26.4 kg/m2 Dr. Malissa Rascon MD Work Phone: [facility] 08-05-2024 06:32-0400 Body weight [address] Malissa Rascon MD Work Phone: [facility] 03-13-2024 11:54-0500 Body temperature 97.3 [degF] Dr. Malissa Rascon MD Work Phone: [facility] 03-13-2024 11:54-0500 Diastolic blood pressure 62 mm[Hg] Dr. Malissa Rascon MD Work Phone: [facility] 03-13-2024 11:54-0500 Heart rate 85 /min Dr. Malissa Rascon MD Work Phone: [facility] 03-13-2024 11:54-0500 Respiratory rate 18 /min Dr. Malissa Rsacon MD Work Phone: [facility] 03-13-2024 11:54-0500 SaO2% (BldA) [Mass fraction] 95 % Dr. Malissa Rascon MD Work Phone: [facility] 03-13-2024 11:54-0500 Systolic blood pressure 113 mm[Hg] Dr. Malissa Rascon MD Work Phone: [facility] 03-12-2024 06:00-0500 Body mass index (BMI) [Ratio] 25.2 kg/m2 Dr. Malissa Rascon MD Work Phone: [facility] 03-12-2024 06:00-0500 Body weight 75.[address] Malissa Rascon MD Work Phone: [facility] 03-11-2024 11:53-0500 Body height 172.[address] Malissa Rascon MD Work Phone: [facility] 03-06-2024 07:30-0500 Inhaled oxygen flow rate 3 L/min Dr. Malissa Rascon MD Work Phone: [facility] 02-19-2024 13:51-0500 Body height 172.7 cm P[address] 2 [facility] 02-19-2024 13:51-0500 Body mass index (BMI) [Ratio] 24.33 kg/m2 [facility] 2 [facility] 02-19-2024 13:51-0500 Body temperature 98.4 [degF] [facility] 2 [facility] 02-19-2024 13:51-0500 Body weight 72.58 kg [facility] 2 [facility] 02-19-2024 13:51-0500 Diastolic blood pressure 61 mm[Hg] [facility] 2 [facility] 02-19-2024 13:51-0500 Heart rate 82 /min [facility] 2 [facility] 02-19-2024 13:51-0500 Respiratory rate 18 /min [facility] 2 [facility] 02-19-2024 13:51-0500 SaO2% (BldA) [Mass fraction] 94 % [facility] 2 [facility] 02-19-2024 13:51-0500 Systolic blood pressure 99 mm[Hg] [facility] 2 [facility] 02-15-2024 13:25-0500 Body height 172.7 cm Michael Noel APRN.SURVEYING OR SPATIAL SCIENCE TECHNICIAN Work Phone: [facility] 02-15-2024 13:25-0500 Body mass index (BMI) [Ratio] 24.33 kg/m2 Michael Noel APRN.SURVEYING OR SPATIAL SCIENCE TECHNICIAN Work Phone: [facility] 02-15-2024 13:25-0500 Body weight 72.58 kg Michael Noel APRN.SURVEYING OR SPATIAL SCIENCE TECHNICIAN Work Phone: [facility] 02-15-2024 13:25-0500 Diastolic blood pressure 77 mm[Hg] Michael Curtisozer SENIOR MANAGER QUALITY ASSURANCE.SURVEYING OR SPATIAL SCIENCE TECHNICIAN Work Phone: [facility] 02-15-2024 13:25-0500 Heart rate 93 /min Michael العراقيer SENIOR MANAGER QUALITY ASSURANCE.SURVEYING OR SPATIAL SCIENCE TECHNICIAN Work Phone: [facility] 02-15-2024 13:25-0500 Respiratory rate 18 /min Michael Boozer SENIOR MANAGER QUALITY ASSURANCE.SURVEYING OR SPATIAL SCIENCE TECHNICIAN Work Phone: [facility] 02-15-2024 13:25-0500 SaO2% (BldA) [Mass fraction] 94 % Michael Noel APRN.SURVEYING OR SPATIAL SCIENCE TECHNICIAN Work Phone: [facility] Comment on above: on room air 02-15-2024 13:25-0500 Systolic blood pressure 120 mm[Hg] Michael Boozer SENIOR MANAGER QUALITY ASSURANCE.SURVEYING OR SPATIAL SCIENCE TECHNICIAN Work Phone: [facility] 02-03-2024 14:30-0500 Body height 172.7 cm Aleksandra Izquierdo MD Work Phone: [facility] 02-03-2024 14:30-0500 Body mass index (BMI) [Ratio] 24.91 kg/m2 Aleksandra Izquierdo MD Work Phone: [facility] 02-03-2024 14:30-0500 Body weight 74.3 kg Aleksandra Izquierdo MD Work Phone: [facility] 02-03-2024 14:30-0500 Diastolic blood pressure 64 mm[Hg] Aleksandra Izquierdo MD Work Phone: [facility] 02-03-2024 14:30-0500 Heart rate 84 /min Aleksandra Izquierdo MD Work Phone: [facility] 02-03-2024 14:30-0500 Systolic blood pressure 104 mm[Hg] Aleksandra Izquierdo MD Work Phone: [facility] 06-06-2023 20:06-0400 Body temperature 96.8 [degF] Dr. Malissa Rascon Work Phone: [facility] 06-06-2023 20:06-0400 Diastolic blood pressure 62 mm[Hg] Dr. Malissa Rasocn Work Phone: [facility] 06-06-2023 20:06-0400 Heart rate 79 /min Dr. Malissa Rascon Work Phone: [facility] 06-06-2023 20:06-0400 Respiratory rate 16 /min Dr. Malissa aRscon Work Phone: [facility] 06-06-2023 20:06-0400 SaO2% (BldA) [Mass fraction] 98 % Dr. Malissa Rascon Work Phone: [facility] 06-06-2023 20:06-0400 Systolic blood pressure 91 mm[Hg] Dr. Malissa Rascon Work Phone: [facility] 06-06-2023 18:49-0400 Inhaled oxygen flow rate 2 L/min Dr. Malissa Rascon Work Phone: [facility] 06-06-2023 17:34-0400 Body mass index (BMI) [Ratio] 25.3 kg/m2 Dr. Malissa Rascon Work Phone: [facility] 06-06-2023 17:34-0400 Body weight 75.[address] Malissa Rascon Work Phone: [facility] 06-06-2023 17:14-0400 Body height 172.[address] Malissa Rascon Work Phone: [facility] 04-14-2023 11:34-0500 Body temperature 98.3 [degF] Dr. Malissa Rascon Work Phone: [facility] 04-14-2023 11:34-0500 Diastolic blood pressure 59 mm[Hg] Dr. Malissa Rascon Work Phone: [facility] 04-14-2023 11:34-0500 Heart rate 82 /min Dr. Malissa Rascon Work Phone: [facility] 04-14-2023 11:34-0500 Respiratory rate 17 /min Dr. Malissa Rascon Work Phone: [facility] 04-14-2023 11:34-0500 SaO2% (BldA) [Mass fraction] 95 % Dr. Malissa Rascon Work Phone: [facility] 04-14-2023 11:34-0500 Systolic blood pressure 101 mm[Hg] Dr. Malissa Rascon Work Phone: [facility] 04-08-2023 09:45-0500 Body height 172.[address] Malissa Rascon Work Phone: [facility] 04-08-2023 09:45-0500 Body weight 76.[address] Malissa Rascon Work Phone: [facility] 04-07-2023 10:00-0500 Body mass index (BMI) [Ratio] 25.7 kg/m2 Dr. Malissa Rascon Work Phone: [facility] 04-01-2023 16:59-0500 Body temperature 97.7 [degF] Dr. Malissa Rascon Work Phone: [facility] 04-01-2023 16:59-0500 Diastolic blood pressure 61 mm[Hg] Dr. Malissa Rascon Work Phone: [facility] 04-01-2023 16:59-0500 Heart rate 80 /min Dr. Malissa Rascon Work Phone: [facility] 04-01-2023 16:59-0500 Respiratory rate 16 /min Dr. Malissa Rascon Work Phone: [facility] 04-01-2023 16:59-0500 SaO2% (BldA) [Mass fraction] 95 % Dr. Malissa Rascon Work Phone: [facility] 04-01-2023 16:59-0500 Systolic blood pressure 101 mm[Hg] Dr. Malissa Rascon Work Phone: [facility] 04-01-2023 04:23-0500 Body mass index (BMI) [Ratio] 27.3 kg/m2 Dr. Malissa Rascon Work Phone: [facility] 04-01-2023 04:23-0500 Body weight 81.[address] Malissa Rascon Work Phone: [facility] 03-31-2023 21:59-0500 Inhaled oxygen flow rate 3 L/min Dr. Malissa Rascon Work Phone: [facility] 03-30-2023 13:16-0500 Body height 172.[address] Malissa Rascon Work Phone: [facility] 03-29-2023 14:32-0500 Body temperature 97.6 [degF] [facility] 03-29-2023 14:32-0500 Diastolic blood pressure 78 mm[Hg] [facility] 03-29-2023 14:32-0500 Heart rate 96 /min [facility] 03-29-2023 14:32-0500 Respiratory rate 14 /min [facility] 03-29-2023 14:32-0500 SaO2% (BldA) [Mass fraction] 99 % [facility] 03-29-2023 14:32-0500 Systolic blood pressure 106 mm[Hg] [facility] 03-29-2023 09:42-0500 Body height 172.72 cm [facility] 03-29-2023 09:42-0500 Body mass index (BMI) [Ratio] 27.7 kg/m2 [facility] 03-29-2023 09:42-0500 Body weight 82.7 kg [facility] 03-27-2023 19:55-0500 Blood Pressure Cuff Size DR DMITRY MCKEON MD [address] [place] [address] 03-27-2023 19:55-[address] DMITRY MCKEON MD [address] [place] [address] 03-27-2023 19:55-[address] DMITRY MCKEON MD [address] [place] [address] 03-27-2023 19:55-0500 Body temperature 97.88 [degF] DR DMITRY MCKEON MD [address] 03-27-2023 19:55-0500 Diastolic Blood Pressure Non-Invasive 44 mm[Hg] DR DMITRY MCKEON MD [address] 03-27-2023 19:55-0500 Heart rate 81 /min DR DMITRY MCKEON MD [address] 03-27-2023 19:55-0500 Reason For Taking VItal Signs DR DMITRY MCKEON MD [address] 03-27-2023 19:55-0500 Respiratory rate 18 /min DR DMITRY MCKEON MD [facility] 03-27-2023 19:55-0500 Systolic Blood Pressure Non-Invasive 88 mm[Hg] DR DMITRY MCKEON MD [address] [place] [address] 03-27-2023 18:31-0500 Heart rate 86 /min DR DMITRY MCKEON MD [address] [place] [address] 03-27-2023 18:31-0500 Respiratory rate 18 /min DR DMITRY MCKEON MD [address] [place] [address] 03-27-2023 18:16-0500 Heart rate 92 /min DR DMITRY MCKEON MD [address] [place] [address] 03-27-2023 15:27-05[address] Blood Pressure Cuff Size DR DMITRY MCKEON MD [address] [place] [address] 03-27-2023 15:27-[address] DMITRY MCKEON MD [address] [place] [address] 03-27-2023 15:27-[address] DMITRY MCKEON MD [address] [place] [address] 03-27-2023 15:27-0500 Body temperature 98.78 [degF] DR DMITRY MCKEON MD [address] [place] [address] 03-27-2023 15:27-0500 Diastolic Blood Pressure Non-Invasive 58 mm[Hg] DR DMITRY MCKEON MD [address] [place] [address] 03-27-2023 15:27-0500 Heart rate 86 /min DR DMITRY MCKEON MD [address] [place] [address] 03-27-2023 15:27-0500 Reason For Taking VItal Signs DR DMITRY MCKEON MD [address] [place] [address] 03-27-2023 15:27-0500 Respiratory rate 16 /min DR DMITRY MCKEON MD [address] [place] [address] 03-27-2023 15:27-0500 Systolic Blood Pressure Non-Invasive 92 mm[Hg] DR DMITRY MCKEON MD [address] [place] [address] 03-27-2023 14:38-0500 Heart rate 88 /min DR DMITRY MCKEON MD [address] [place] [address] 03-27-2023 10:46-0500 Blood Pressure Cuff Size DR DMITRY MCKEON MD [address] [place] [address] 03-27-2023 10:46-[address] DMITRY MCKEON MD [address] [place] [address] 03-27-2023 10:46-[address] DMITRY MCKEON MD [address] [place] [address] 03-27-2023 10:46-0500 Body temperature 97.52 [degF] DR DMITRY MCKEON MD [address] [place] [address] 03-27-2023 10:46-0500 Diastolic Blood Pressure Non-Invasive 52 mm[Hg] DR DMITRY MCKEON MD [address] [place] [address] 03-27-2023 10:46-0500 Systolic Blood Pressure Non-Invasive 102 mm[Hg] DR DMITRY MCKEON MD [address] [place] [address] 03-27-2023 08:26-0500 Heart rate 80 /min DR DMITRY MCKEON MD [address] [place] [address] 03-27-2023 07:11-0500 Reason For Taking VItal Signs DR DMITRY MCKEON MD [address] [place] [address] 03-27-2023 06:45-0500 Heart rate 86 /min DR DMITRY MCKEON MD [address] [place] [address] 03-26-2023 12:11-0500 Heart rate 95 /min DR DMITRY MCKEON MD [address] [place] [address] 03-26-2023 11:36-0500 Diastolic blood pressure 50 mm[Hg] DR DMITRY MCKEON MD [address] [place] [address] 03-26-2023 11:36-0500 Signs/Symptoms Transfusion Reaction DR DMITRY MCKEON MD [address] [place] [address] 03-26-2023 11:36-0500 Systolic blood pressure 90 mm[Hg] DR DMITRY MCKEON MD [address] [place] [address] 03-26-2023 07:08-0500 Mean blood pressure 73 mm[Hg] DR DMITRY MCKEON MD [address] [place] [address] 03-26-2023 06:10-0500 Mean blood pressure 72 mm[Hg] DR DMITRY MCKEON MD [address] [place] [address] 03-26-2023 05:10-0500 Mean blood pressure 73 mm[Hg] DR DMITRY MCKEON MD [address] [place] [address] 03-25-2023 07:59-0500 Heart rate 97 /min DR DMITRY MCKEON MD [address] [place] [address] 03-24-2023 16:33-0500 Diastolic blood pressure 50 mm[Hg] DR DMITRY MCKEON MD [address] [place] [address] 03-24-2023 16:33-0500 Signs/Symptoms Transfusion Reaction DR DMITRY MCKEON MD [address] [place] [address] 03-24-2023 16:33-0500 Systolic blood pressure 95 mm[Hg] DR DMITRY MCKEON MD [address] [place] [address] 03-24-2023 15:32-0500 Body temperature 97.52 [degF] DR DMITRY MCKEON MD [address] [place] [address] 03-24-2023 15:32-0500 Diastolic blood pressure 55 mm[Hg] DR DMITRY MCKEON MD [address] [place] [address] 03-24-2023 15:32-0500 Signs/Symptoms Transfusion Reaction DR DMITRY MCKEON MD [address] [place] [address] 03-24-2023 15:32-0500 Systolic blood pressure 94 mm[Hg] DR DMITRY MCKEON MD [address] [place] [address] 03-24-2023 14:25-0500 Diastolic blood pressure 49 mm[Hg] DR DMITRY MCKEON MD [address] [place] [address] 03-24-2023 14:25-0500 Systolic blood pressure 80 mm[Hg] DR DMITRY MCKEON MD [address] [place] [address] 03-23-2023 14:05-0500 Diastolic blood pressure 47 mm[Hg] DR DMITRY MCKEON MD [address] [place] [address] 03-23-2023 14:05-0500 Mean blood pressure 63 mm[Hg] DR DMITRY MCKEON MD [address] [place] [address] 03-23-2023 14:05-0500 Systolic blood pressure 92 mm[Hg] DR DMITRY MCKEON MD [address] [place] [address] 03-23-2023 13:50-0500 Diastolic blood pressure 46 mm[Hg] DR DMITRY MCKEON MD [address] [place] [address] 03-23-2023 13:50-0500 Mean blood pressure 65 mm[Hg] DR DMITRY MCKEON MD [address] [place] [address] 03-23-2023 13:50-0500 Systolic blood pressure 99 mm[Hg] DR DMITRY MCKEON MD [address] [place] [address] 03-23-2023 13:36-0500 Body height 172.[address] DMITRY MCKEON MD [address] [place] [address] 03-23-2023 13:36-0500 Body weight 90.[address] DMITRY MCKEON MD [address] [place] [address] 03-23-2023 13:36-0500 Body weight 30.38 kg/m2 DR DMITRY MCKEON MD [address] [place] [address] 03-23-2023 13:35-0500 Mean blood pressure 62 mm[Hg] DR DMITRY MCKEON MD [address] [place] [address] 03-23-2023 11:10-0500 Body temperature 96.26 [degF] DR DMITRY MCKEON MD [facility] 03-23-2023 11:00-0500 Respiratory Rate - Anes 12 br/min DR DMITRY MCKEON MD [address] 03-23-2023 10:55-0500 Respiratory Rate - Anes 13 br/min DR DMITRY MCKEON MD [address] [place] [address] 03-23-2023 10:50-0500 Respiratory Rate - Anes 9 br/min DR DMITRY MCKEON MD [address] 03-23-2023 10:45-0500 Body temperature 95.32 [degF] DR DMITRY MCKEON MD [address] [place] [address] 03-23-2023 10:40-0500 Body temperature 95.27 [degF] DR DMITRY MCKEON MD [address] [place] [address] 03-23-2023 10:35-0500 Body temperature 95.13 [degF] DR DMITRY MCKEON MD [address] 03-23-2023 05:51-0500 Body height 172.[address] DMITRY MCKEON MD [address] [place] [address] 03-23-2023 05:51-0500 Body temperature 98.06 [degF] DR DMITRY MCKEON MD [address] 02-11-2023 02:39-0500 Blood Pressure Cuff Size ISAAK COLEShawn [facility] 02-11-2023 02:39-0500 Blood Pressure Location ISAAK HAYNES DO [facility] 02-11-2023 02:39-0500 Blood Pressure Method ISAAK HAYNES DO [facility] 02-11-2023 02:39-0500 Diastolic Blood Pressure Non-Invasive 84 mm[Hg] ISAAK DOUGLASShawn [facility] 02-11-2023 02:39-0500 Heart rate 140 /min ISAAK FROMMELT DO [facility] 02-11-2023 02:39-0500 Respiratory rate 16 /min ISAAK FROMMELT DO [facility] 02-11-2023 02:39-0500 Systolic Blood Pressure Non-Invasive 101 mm[Hg] ISAAK FROMMELT DO [facility] 02-11-2023 02:11-0500 Blood Pressure Cuff Size ISAAK FROMMELT DO [facility] 02-11-2023 02:11-0500 Blood Pressure Location ISAAK FROMMELT DO [facility] 02-11-2023 02:11-0500 Blood Pressure Method ISAAK FROMMELT DO [facility] 02-11-2023 02:11-0500 Diastolic Blood Pressure Non-Invasive 74 mm[Hg] ISAAK FROMMELT DO [facility] 02-11-2023 02:11-0500 Heart rate 142 /min ISAAK FROMMELT DO [facility] 02-11-2023 02:11-0500 Respiratory rate 16 /min ISAAK FROMMELT DO [facility] 02-11-2023 02:11-0500 Systolic Blood Pressure Non-Invasive 101 mm[Hg] ISAAK FROMMELT DO [facility] 02-11-2023 01:58-0500 Blood Pressure Cuff Size ISAAK FROMMELT DO [facility] 02-11-2023 01:58-0500 Blood Pressure Location ISAAK FROMMELT DO [facility] 02-11-2023 01:58-0500 Blood Pressure Method ISAAK FROMMELT DO [facility] 02-11-2023 01:58-0500 Diastolic Blood Pressure Non-Invasive 68 mm[Hg] ISAAK FROMMELT DO [facility] 02-11-2023 01:58-0500 Heart rate 142 /min ISAAK FROMMELT DO [facility] 02-11-2023 01:58-0500 Respiratory rate 16 /min ISAAK FROMMELT DO [facility] 02-11-2023 01:58-0500 Systolic Blood Pressure Non-Invasive 94 mm[Hg] ISAAK FROMMELT DO [facility] 02-11-2023 01:52-0500 Heart rate 145 /min ISAAK FROMMELT DO [facility] 02-10-2023 23:57-0500 Heart rate 155 /min ISAAK FROMMELT DO [facility] 02-10-2023 23:55-0500 Heart rate 155 /min ISAAK FROMMELT DO [facility] 02-10-2023 23:39-0500 Body height 172.7 cm ISAAK FROMMELT DO [facility] 02-10-2023 23:39-0500 Body temperature 97.52 [degF] ISAAK FROMMELT DO [facility] 02-10-2023 23:39-0500 Body weight 79.5 kg ISAAK FROMMELT DO [facility] 02-10-2023 23:39-0500 Heart rate 150 /min ISAAK FROMMELT DO [facility] 12-17-2022 14:28-0400 Heart rate 76 /min VIVIEN PLATA SENIOR MANAGER QUALITY ASSURANCE-SURVEYING OR SPATIAL SCIENCE TECHNICIAN [facility] 12-17-2022 14:28-0400 Respiratory rate 20 /min VIVIEN PLATA SENIOR MANAGER QUALITY ASSURANCE-SURVEYING OR SPATIAL SCIENCE TECHNICIAN [facility] 12-17-2022 14:17-0400 Body temperature 98.6 [degF] VIVIEN PLATA SENIOR MANAGER QUALITY ASSURANCE-SURVEYING OR SPATIAL SCIENCE TECHNICIAN [facility] 12-17-2022 14:17-0400 Diastolic Blood Pressure Non-Invasive 65 1 VIVIEN PLATA SENIOR MANAGER QUALITY ASSURANCE-SURVEYING OR SPATIAL SCIENCE TECHNICIAN [facility] 12-17-2022 14:17-0400 Heart rate 89 /min VIVIEN VENTURAN SENIOR MANAGER QUALITY ASSURANCE-SURVEYING OR SPATIAL SCIENCE TECHNICIAN [facility] 12-17-2022 14:17-0400 Reason For Taking VItal Signs VIVIEN PLATA SENIOR MANAGER QUALITY ASSURANCE-SURVEYING OR SPATIAL SCIENCE TECHNICIAN [facility] 12-17-2022 14:17-0400 Respiratory rate 19 /min VIVIEN PLATA SENIOR MANAGER QUALITY ASSURANCE-SURVEYING OR SPATIAL SCIENCE TECHNICIAN [facility] 12-17-2022 14:17-0400 Systolic Blood Pressure Non-Invasive 91 1 VIVIEN VENTURAN SENIOR MANAGER QUALITY ASSURANCE-SURVEYING OR SPATIAL SCIENCE TECHNICIAN [facility] 12-17-2022 13:11-0400 Diastolic Blood Pressure Non-Invasive 72 1 VIVIEN PLATA SENIOR MANAGER QUALITY ASSURANCE-SURVEYING OR SPATIAL SCIENCE TECHNICIAN [facility] 12-17-2022 13:11-0400 Heart rate 79 /min VIVIEN PLATA SENIOR MANAGER QUALITY ASSURANCE-SURVEYING OR SPATIAL SCIENCE TECHNICIAN [facility] 12-17-2022 13:11-0400 Respiratory rate 24 /min VIVIEN PLATA SENIOR MANAGER QUALITY ASSURANCE-SURVEYING OR SPATIAL SCIENCE TECHNICIAN [facility] 12-17-2022 13:11-0400 Systolic Blood Pressure Non-Invasive 98 1 VIVIEN PLATA SENIOR MANAGER QUALITY ASSURANCE-SURVEYING OR SPATIAL SCIENCE TECHNICIAN [facility] 12-17-2022 12:08-0400 Diastolic Blood Pressure Non-Invasive 69 1 VIVIEN PLATA SENIOR MANAGER QUALITY ASSURANCE-SURVEYING OR SPATIAL SCIENCE TECHNICIAN [facility] 12-17-2022 12:08-0400 Heart rate 74 /min VIVIEN PLATA SENIOR MANAGER QUALITY ASSURANCE-SURVEYING OR SPATIAL SCIENCE TECHNICIAN [facility] 12-17-2022 12:08-0400 Systolic Blood Pressure Non-Invasive 104 1 VIVIEN PLATA SENIOR MANAGER QUALITY ASSURANCE-SURVEYING OR SPATIAL SCIENCE TECHNICIAN [facility] 12-17-2022 11:15-0400 Body temperature 98.24 [degF] VIVIEN PLATA SENIOR MANAGER QUALITY ASSURANCE-SURVEYING OR SPATIAL SCIENCE TECHNICIAN [facility] 12-17-2022 11:15-0400 Reason For Taking VItal Signs VIVIEN PLATA SENIOR MANAGER QUALITY ASSURANCE-SURVEYING OR SPATIAL SCIENCE TECHNICIAN [facility] 12-17-2022 10:27-0400 Heart rate 75 /min VIVIEN PLATA SENIOR MANAGER QUALITY ASSURANCE-SURVEYING OR SPATIAL SCIENCE TECHNICIAN [facility] 12-17-2022 09:45-0400 Heart rate 74 /min VIVIEN PLATA SENIOR MANAGER QUALITY ASSURANCE-SURVEYING OR SPATIAL SCIENCE TECHNICIAN [facility] 12-17-2022 07:30-0400 Body weight 84.5 kg VIVIEN PLATA SENIOR MANAGER QUALITY ASSURANCE-SURVEYING OR SPATIAL SCIENCE TECHNICIAN [facility] 12-17-2022 07:22-0400 Body temperature 97.7 [degF] VIVIENGORDY VENTURAN SENIOR MANAGER QUALITY ASSURANCE-SURVEYING OR SPATIAL SCIENCE TECHNICIAN [facility] 12-17-2022 07:22-0400 Reason For Taking VItal Signs VIVIEN VENTURARodolfo SENIOR MANAGER QUALITY ASSURANCE-SURVEYING OR SPATIAL SCIENCE TECHNICIAN [facility] 12-17-2022 06:03-0400 Heart rate 84 /min VIVIEN PLATA SENIOR MANAGER QUALITY ASSURANCE-SURVEYING OR SPATIAL SCIENCE TECHNICIAN [facility] 12-16-2022 04:28-0400 Body weight 85.7 kg VIVIEN VENTURARodolfo SENIOR MANAGER QUALITY ASSURANCE-SURVEYING OR SPATIAL SCIENCE TECHNICIAN [facility] 12-15-2022 08:45-0400 Heart rate 111 /min VIVIEN VENTURARodolfo SENIOR MANAGER QUALITY ASSURANCE-SURVEYING OR SPATIAL SCIENCE TECHNICIAN [facility] 12-15-2022 05:00-0400 Mean blood pressure 87 mm[Hg] VIVIEN VENTURARodolfo SENIOR MANAGER QUALITY ASSURANCE-SURVEYING OR SPATIAL SCIENCE TECHNICIAN [facility] 12-15-2022 04:00-0400 Mean blood pressure 90 mm[Hg] VIVIEN VENTURAN SENIOR MANAGER QUALITY ASSURANCE-SURVEYING OR SPATIAL SCIENCE TECHNICIAN [facility] 12-15-2022 03:00-0400 Heart rate 90 /min VIVIEN VENTURARodolfo SENIOR MANAGER QUALITY ASSURANCE-SURVEYING OR SPATIAL SCIENCE TECHNICIAN [facility] 12-15-2022 03:00-0400 Mean blood pressure 94 mm[Hg] VIVIEN VENTURARodolfo SENIOR MANAGER QUALITY ASSURANCE-SURVEYING OR SPATIAL SCIENCE TECHNICIAN [facility] 12-13-2022 21:14-0400 Body height 172.7 cm VIVIEN VENTURARodolfo SENIOR MANAGER QUALITY ASSURANCE-SURVEYING OR SPATIAL SCIENCE TECHNICIAN [facility] 12-13-2022 21:14-0400 Body weight 86.7 kg VIVIEN PLATA SENIOR MANAGER QUALITY ASSURANCE-SURVEYING OR SPATIAL SCIENCE TECHNICIAN [facility] 12-13-2022 21:14-0400 Body weight 29.07 kg/m2 VIVIEN VENTURARodolfo SENIOR MANAGER QUALITY ASSURANCE-SURVEYING OR SPATIAL SCIENCE TECHNICIAN [facility] 11-19-2022 13:10-0400 Diastolic Blood Pressure Non-Invasive 61 1 JANIA SMALLWOOD MD [facility] 11-19-2022 13:10-0400 Heart rate 72 /min JANIA SMALLWOOD MD [facility] 11-19-2022 13:10-0400 Respiratory rate 20 /min JANIA SMALLWOOD MD [facility] 11-19-2022 13:10-0400 Systolic Blood Pressure Non-Invasive 92 1 JANIA SMALLWOOD MD [facility] 11-19-2022 12:43-0400 Diastolic Blood Pressure Non-Invasive 59 1 JANIA SMALLWOOD MD [facility] 11-19-2022 12:43-0400 Heart rate 71 /min JANIA SMALLWOOD MD [facility] 11-19-2022 12:43-0400 Respiratory rate 20 /min JANIA SMALLWOOD MD [facility] 11-19-2022 12:43-0400 Systolic Blood Pressure Non-Invasive 94 1 JANIA SMALLWOOD MD [facility] 11-19-2022 12:08-0400 Diastolic Blood Pressure Non-Invasive 73 1 JANIA SMALLWOOD MD [facility] 11-19-2022 12:08-0400 Heart rate 125 /min JANIA SMALLWOOD MD [facility] 11-19-2022 12:08-0400 Respiratory rate 20 /min JANIA SMALLWOOD MD [facility] 11-19-2022 12:08-0400 Systolic Blood Pressure Non-Invasive 84 1 JANIA SMALLWOOD MD [facility] 11-19-2022 11:30-0400 Heart rate 123 /min JANIA SMALLWOOD MD [facility] 11-19-2022 10:48-0400 Body height 173 cm JANIA SMALLWOOD MD [facility] 11-19-2022 10:48-0400 Body temperature 97.88 [degF] JANIA SMALLWOOD MD [facility] 11-19-2022 10:48-0400 Body weight 86.9 kg JANIA SMALLWOOD MD [facility] 11-19-2022 10:48-0400 Heart rate 142 /min JANIA SMALLWOOD MD [facility] 05-29-2022 23:25-0400 Blood Pressure Location ISAAK HAYNES DO [facility] 05-29-2022 23:25-0400 Blood Pressure Method ISAAK HAYNES DO [facility] 05-29-2022 23:25-0400 Body height 172.7 cm ISAAK COLET [facility] 05-29-2022 23:25-0400 Body temperature 97.52 [degF] ISAAK DOUGLAST [facility] 05-29-2022 23:25-0400 Body weight 86.3 kg ISAAK DOUGLAST [facility] 05-29-2022 23:25-0400 Diastolic Blood Pressure Non-Invasive 78 1 ISAAK HAYNES DO [facility] 05-29-2022 23:25-0400 Heart rate 85 /min ISAAK HAYNES DO [facility] 05-29-2022 23:25-0400 Respiratory rate 18 /min ISAAK HAYNES DO [facility] 05-29-2022 23:25-0400 Systolic Blood Pressure Non-Invasive 111 1 [facility] 04-28-2022 08:00-0500 Diastolic Blood Pressure Non-Invasive [address] AZAR KAHN MD [facility] 04-28-2022 08:00-0500 Mean blood pressure 86 mm[Hg] DR AZAR KAHN MD [address] 04-28-2022 08:00-0500 Systolic Blood Pressure Non-Invasive [address] AZAR KAHN MD [address] 04-28-2022 06:55-0500 Heart rate 64 /min DR AZAR KAHN MD [address] 04-28-2022 06:55-0500 Respiratory rate 18 /min DR AZAR KAHN MD [facility] 04-28-2022 06:21-0500 Body temperature 98.24 [degF] DR AZAR KAHN MD [address] 04-28-2022 06:21-0500 Diastolic Blood Pressure Non-Invasive [address] AZAR KAHN MD [facility] 04-28-2022 06:21-0500 Heart rate 65 /min DR AZAR KAHN MD [facility] 04-28-2022 06:21-0500 Mean blood pressure 74 mm[Hg] DR AZAR KAHN MD [address] [place] [address] 04-28-2022 06:21-0500 Reason For Taking VItal Signs DR AZAR KAHN MD [address] [place] [address] 04-28-2022 06:21-0500 Respiratory rate 18 /min DR AZAR KAHN MD [address] [place] [address] 04-28-2022 06:21-0500 Systolic Blood Pressure Non-Invasive [address] AZAR KAHN MD [address] [place] [address] 04-28-2022 04:45-0500 Body temperature 97.7 [degF] DR AZAR KAHN MD [address] [place] [address] 04-28-2022 04:45-0500 Diastolic Blood Pressure Non-Invasive [address] AZAR KAHN MD [address] [place] [address] 04-28-2022 04:45-0500 Heart rate 64 /min DR AZAR KAHN MD [address] [place] [address] 04-28-2022 04:45-0500 Mean blood pressure 81 mm[Hg] DR AZAR KAHN MD [address] [place] [address] 04-28-2022 04:45-0500 Reason For Taking VItal Signs DR AZAR KAHN MD [address] [place] [address] 04-28-2022 04:45-0500 Respiratory rate 18 /min DR AZAR KAHN MD [address] [place] [address] 04-28-2022 04:45-0500 Systolic Blood Pressure Non-Invasive [address] AZAR KAHN MD [address] [place] [address] 04-28-2022 02:39-0500 Heart rate 60 /min DR AZAR KAHN MD [address] [place] [address] 04-27-2022 23:00-0500 Body temperature 98.06 [degF] DR AZAR KAHN MD [address] [place] [address] 04-27-2022 23:00-0500 Heart rate 70 /min DR AZAR KAHN MD [address] [place] [address] 04-27-2022 23:00-0500 Reason For Taking VItal Signs DR AZAR KAHN MD [address] [place] [address] 04-27-2022 19:47-0500 Heart rate 67 /min DR AZAR KAHN MD [address] [place] [address] 04-27-2022 19:20-0500 Blood Pressure Cuff Size DR AZAR KAHN MD [address] [place] [address] 04-27-2022 19:20-[address] AZAR KAHN MD [address] [place] [address] 04-27-2022 19:20-[address] AZAR KAHN MD [address] [place] [address] 04-27-2022 19:09-0500 Heart rate 68 /min DR AZAR KAHN MD [address] [place] [address] 04-27-2022 16:31-0500 Heart rate 63 /min DR AZAR KAHN MD [address] [place] [address] 04-27-2022 14:42-0500 Blood Pressure Cuff Size DR AZAR KAHN MD [address] [place] [address] 04-27-2022 14:42-[address] AZAR KAHN MD [address] [place] [address] 04-27-2022 14:42-[address] AZAR KAHN MD [address] [place] [address] 04-27-2022 06:36-0500 Heart rate 100 /min DR AZAR KAHN MD [address] [place] [address] 04-27-2022 04:05-0500 Body weight 86.[address] AZAR KAHN MD [address] [place] [address] 04-27-2022 03:51-[address] Pressure Cuff Size DR AZAR KAHN MD [address] [place] [address] 04-27-2022 03:51-[address] AZAR KAHN MD [address] [place] [address] 04-27-2022 03:51-[address] AZAR KAHN MD [facility] 04-26-2022 18:32-0500 Body height 172.[address] AZAR KAHN MD [facility] 04-26-2022 18:32-0500 Body weight 86.[address] AZAR KAHN MD [facility] 04-26-2022 18:32-0500 Body weight 29.14 kg/m2 DR AZAR KAHN MD [facility] 04-26-2022 17:05-0500 Diastolic Blood Pressure Non-Invasive [address] GONZALEZ CSATRO MD [facility] 04-26-2022 17:05-0500 Heart rate 101 /min DR GONZALEZ CASTRO MD [facility] 04-26-2022 17:05-0500 Respiratory rate 21 /min DR GONZALEZ CASTRO MD [facility] 04-26-2022 17:05-0500 Systolic Blood Pressure Non-Invasive [address] GONZALEZ CASTRO MD [facility] 04-26-2022 15:32-0500 Diastolic Blood Pressure Non-Invasive [address] GONZALEZ CASTRO MD [facility] 04-26-2022 15:32-0500 Heart rate 114 /min DR GONZALEZ CASTRO MD [facility] 04-26-2022 15:32-0500 Respiratory rate 24 /min DR GONZALEZ CASTRO MD [facility] 04-26-2022 15:32-0500 Systolic Blood Pressure Non-Invasive [address] GONZALEZ CASTRO MD [facility] 04-26-2022 13:35-0500 Diastolic Blood Pressure Non-Invasive [address] GONZALEZ CASTRO MD [facility] 04-26-2022 13:35-0500 Heart rate 92 /min DR GONZALEZ CASTRO MD [facility] 04-26-2022 13:35-0500 Respiratory rate 16 /min DR GONZALEZ CASTRO MD [facility] 04-26-2022 13:35-0500 Systolic Blood Pressure Non-Invasive [address] GONZALEZ CASTRO MD [facility] 04-26-2022 12:35-0500 Body temperature 97.88 [degF] DR GONZALEZ CASTRO MD [facility] 04-26-2022 12:35-0500 Body weight 87.[address] GONZALEZ CASTRO MD [facility] 02-14-2022 20:33-0500 Diastolic Blood Pressure Non-Invasive 69 1 JANIA SMALLWOOD MD [facility] 02-14-2022 20:33-0500 Heart rate 60 /min JANIA SMALLWOOD MD [facility] 02-14-2022 20:33-0500 Systolic Blood Pressure Non-Invasive 102 1 JANIA SMALLWOOD MD [facility] 02-14-2022 20:01-0500 Diastolic Blood Pressure Non-Invasive 62 1 JANIA SMALLWOOD MD [facility] 02-14-2022 20:01-0500 Heart rate 60 /min JANIA SMALLWOOD MD [facility] 02-14-2022 20:01-0500 Systolic Blood Pressure Non-Invasive 90 1 JANIA SMALLWOOD MD [facility] 02-14-2022 19:30-0500 Diastolic Blood Pressure Non-Invasive 54 1 JANIA SMALLWOOD MD [facility] 02-14-2022 19:30-0500 Heart rate 60 /min JANIA SMALLWOOD MD [facility] 02-14-2022 19:30-0500 Systolic Blood Pressure Non-Invasive 77 1 JANIA SMALLWOOD MD [facility] 02-14-2022 18:24-0500 Body height 172.7 cm JANIA SMALLWOOD MD [facility] 02-14-2022 18:24-0500 Body temperature 96.98 [degF] JANIA SMALLWOOD MD [facility] 02-14-2022 18:24-0500 Body weight 86.4 kg JANIA SMALLWOOD MD [facility] 02-14-2022 18:24-0500 Respiratory rate 20 /min JANIA SMALLWOOD MD [facility] 01-31-2022 19:28-0500 Heart rate 90 /min [facility] Work Phone: 01-31-2022 19:28-0500 Respiratory rate 17 /min [facility] Work Phone: 01-31-2022 19:28-0500 SaO2% (BldA) [Mass fraction] 97 % [facility] Work Phone: 01-31-2022 18:00-0500 Diastolic blood pressure 78 mm[Hg] [facility] Work Phone: 01-31-2022 18:00-0500 Systolic blood pressure 138 mm[Hg] [facility] Work Phone: 01-31-2022 15:05-0500 Body height 172.72 cm [facility] Work Phone: 01-31-2022 15:05-0500 Body mass index (BMI) [Ratio] 29 kg/m2 [facility] Work Phone: 01-31-2022 15:05-0500 Body temperature 96.2 [degF] [facility] Work Phone: 01-31-2022 15:05-0500 Body weight 86.63 kg [facility] Work Phone: Encounters Encounter Date Encounter Type Care Provider Facility Start: 01-24-2025 ambulatory MALISSA RASCON MD Faci lity:[facility] Start: 01-05-2025 End: 01-05-2025 ambulatory Malissa Rascon Facility:[facility] Start: 10-08-2024 End: 10-08-2024 Patient encounter procedure Lawson Stephens [facility] Work Phone: Start: 10-08-2024 End: 10-08-[address] Malissa Rascon MD Work Phone: [facility] Start: 08-29-2024 End: 09-02-2024 ambulatory MALISSA RASCON MD Facility:[facility] Start: 08-29-2024 End: 09-02-2024 Outreach Lab MALISSA RASCON MD [facility] Start: 08-05-2024 End: 08-05-2024 Admission to same day surgery center Dr. Juaquin Pierre MD -[facility] Day [facility] Start: 08-05-2024 End: 08-05-2024 ambulatory Malissa Rascon Facility:[facility] Start: 07-19-2024 End: 07-19-[address] Malissa Rascon MD Work Phone: [facility] Work Phone: Start: 07-19-2024 End: 07-19-[address] Juaquin Pierre MD -Cat Scan, [facility] Work Phone: Start: 07-19-2024 End: 07-19-2024 ambulatory Juaquin Pierre Facility:[facility] Start: 07-16-2024 End: 07-20-2024 ambulatory HOUSTON BUTCHERALONASERA POTTS Facility:[facility] Start: 07-16-2024 End: 07-20-2024 Outreach Lab [facility] Start: 06-24-2024 End: 06-24-[address] AZAR KAHN MD Facility:[facility] Start: 06-23-2024 End: 06-23-[address] Malissa Rascon MD Work Phone: [facility] Work Phone: Start: 06-23-2024 End: 06-23-[address] Nika Donald MD -Laboratory, Specimen Work Phone: Start: 06-23-2024 End: 06-23-2024 ambulatory Nika Donald Facility:[facility] Start: 06-16-2024 End: 06-16-[address] Malissa Rascon MD Work Phone: [facility] Work Phone: Start: 06-16-2024 End: 06-16-[address] Nika Donald MD -Radiology, [facility] Work Phone: Start: 06-16-2024 End: 06-16-2024 ambulatory Nika Donald Facility:[facility] Start: 05-30-2024 End: 06-03-[address] AZAR KAHN MD Facility:[facility] Start: 05-17-2024 End: 05-17-[address] Malissa Rascon MD Work Phone: [facility] Work Phone: Start: 05-17-2024 End: 05-17-[address] Nika Donald MD -Laboratory, Specimen Work Phone: Start: 05-17-2024 End: 05-17-2024 [facility] Start: 05-04-2024 End: 05-04-[address] Nika Donald MD -Cat Scan, [facility] Work Phone: Start: 05-04-2024 End: 05-04-2024 [facility] Start: 03-23-2024 End: 03-27-2024 ambulatory MADDY REDDY SENIOR MANAGER QUALITY ASSURANCE-SURVEYING OR SPATIAL SCIENCE TECHNICIAN Facility:[facility] Start: 03-23-2024 End: 03-27-2024 Outreach Lab MADDY ENGLEILA SENIOR MANAGER QUALITY ASSURANCE-SURVEYING OR SPATIAL SCIENCE TECHNICIAN [facility] Start: 03-21-2024 End: 03-21-2024 Follow-up encounter Acute [facility] Work Phone: [facility] Comment on above: Postoperative follow -up (Primary Dx) Start: 03-21-2024 End: 03-21-2024 Telemedicine consultation with patient [facility] Work Phone: [facility] Start: 03-21-2024 End: 03-21-2024 ambulatory MALISSA RASCON Facility:[facility] Start: 03-12-2024 Non-patient / Non-visit Dr. Mirtha Birch DO -[facility] Work Phone: Start: 03-07-2024 End: 03-07-[address] Parrish Shah MD -Cat Scan, [facility] Work Phone: Start: 03-07-2024 End: 03-07-2024 ambulatory Malissa Rascon Facility:[facility] Start: 03-02-2024 End: 03-02-[address] Parrish Shah MD -Cat Scan, [facility] Work Phone: Start: 03-01-2024 End: 03-02-2024 ambulatory Malissa Rascon Facility:[facility] Start: 03-01-2024 End: 03-13-2024 Evaluation and management of inpatient Dr. Parrish Shah MD -Transitional Care Unit Start: 02-24-2024 End: 03-01-2024 Evaluation and management of inpatient ALEKSANDRA IZQUIERDO Facility:[facility] Start: 02-22-2024 End: 02-22-2024 Telephone encounter Alvaro Miles MD Work Phone: [facility] Start: 02-19-2024 End: 02-19-2024 Admission to [facility] 2 Pre Surgical Testing Start: 02-19-2024 End: 02-19-2024 Preprocedural examination done [address] Work Phone: Start: 02-19-2024 End: 02-19-2024 ambulatory DESHAUN BAIN Pre Surgical Testing Comment on above: Pre-op exam (Primary Dx); Paroxysmal atrial fibrillation (HCC); Chronic obstructive pulmonary disease, unspecified COPD type (HCC); Chronic heart failure with preserved ejection fraction (HCC); Hyperlipidemia, unspecified hyperlipidemia type; Hypotension, unspecified hypotension type; Gastroesophageal reflux disease, unspecified whether esophagitis present; History of echocardiogram; History of EKG; Abscess of left lung without pneumonia, unspecified part of lung (HCC); Acalculous cholecystitis; Former smoker; Coronary artery disease, occlusive; Anemia, unspecified type; Sleep apnea, unspecified type; Cavities, tooth Start: 02-16-2024 Encounter for other preprocedural examination MALISSA RASCON [facility] Start: 02-16-2024 Preprocedural examin ation done Michael Noel APRN.CNP Work Phone: [facility] Start: 02-15-2024 End: 02-15-2024 Patient encounter procedure [facility] Work Phone: [facility] Comment on above: Chronic cholecystiti s without calculus (Primary Dx) Acute cholecystitis with chronic cholecystitis (Primary Dx); Pulmonary hypertension (HCC); Malnutrition of moderate degree (HCC); Longstanding persistent atrial fibrillation (HCC); At risk for delirium; COMANCHE (hard of hearing); Chronic heart failure with preserved ejection fraction (HCC); Atrial fibrillation, unspecified type (HCC); Chronic obstructive pulmonary disease, unspecified COPD type (HCC); Hyperlipidemia, unspecified hyperlipidemia type Start: 02-15-2024 End: 02-15-2024 ambulatory ALEKSANDRA IZQUIERDO Facility:[facility] Start: 02-10-2024 End: 02-10-2024 Orders Only Aleksandra Izquierdo MD Work Phone: [facility] Comment on above: Acute acalculous cho lecystitis (Primary Dx) Start: 02-09-2024 End: 02-09-2024 Emergency department patient visit MALISSA RASCON Facility:[facility] Start: 02-09-2024 End: 02-09-2024 Telephone encounter Aleksandra Izquierdo RN [facility] Comment on above: Patient Update Start: 02-08-2024 End: 02-15-2024 Telephone encounter Thao Shankar MD Work Phone: [facility] Comment on above: Patient Update; Bryan ent Question Start: 02-05-2024 End: 02-23-2024 Telephone encounter Aleksandra Izquierdo MD Work Phone: [facility] Comment on above: Patient Update Start: 02-03-2024 End: 02-03-2024 ambulatory ALEKSANDRA IQZUIERDO Facility:[facility] Start: 02-03-2024 End: 02-03-2024 Patient encounter procedure Aleksandra Izquierdo MD Work Phone: [facility] Comment on above: Acute cholecystitis with chronic cholecystitis (Primary Dx); Chronic heart failure with preserved ejection fraction (HCC); Pulmonary hypertension (HCC); Acalculous cholecystitis; Longstanding persistent atrial fibrillation (HCC); Anticoagulant long-term use; Malnutrition of moderate degree (HCC) Start: 01-26-2024 End: 01-26-2024 ambulatory Malissa Rascon Facility:[facility] Start: 12-13-2023 End: 12-23-2023 Evaluation and management of inpatient SHANTI MARTINEZ Facility:[facility] Start: 10-27-2023 End: 10-30-2023 Evaluation and management of inpatient KAYLIE MARROQUIN Facility:[facility] Start: 09-08-2023 End: 09-08-2023 ambulatory MALISSA RASCON MD Facility:B Start: 09-08-2023 End: 09-08-2023 Patient encounter procedure SAM HADLEY PA-C [facility] Start: 07-21-2023 End: 07-21-2023 ambulatory MALISSA RASCON MD Facility:B Start: 07-21-2023 End: 07-21-2023 Patient encounter procedure NIKA DONALD MD [facility] Start: 07-14-2023 End: 07-14-2023 ambulatory MALISSA RASCON MD Facility:B Start: 06-29-2023 End: 06-29-2023 ambulatory MALISSA RASCON MD Facility:[facility] Start: 06-29-2023 End: 06-29-[address] AZAR KAHN MD [facility] Start: 06-06-2023 Follow-up status Dr. Malissa bowden Work Phone: [facility] Start: 06-06-2023 End: 06-06-2023 Emergency department patient visit Dr. Malissa Rascon Work Phone: [facility]-Emergency Department Work Phone: Start: 06-04-2023 End: 06-04-2023 ambulatory MALISSA RASCON MD Facility:B Start: 06-03-2023 End: 06-03-2023 Patient encounter procedure MALISSA RASCON MD [facility] Start: 06-03-2023 End: 06-03-2023 ambulatory MALISSA RASCON MD Facility:B Start: 04-01-2023 End: 04-14-2023 Evaluation and management of inpatient Dr. Malissa Rascon Work Phone: [facility]-Transitional Care Unit Start: 04-01-2023 Non-patient / Non-visit Dr. Hernandez Work Phone: [facility] Work Phone: Start: 03-31-2023 Non-patient / Non-visit Dr. Hernandez Work Phone: [facility] Work Phone: Start: 03-30-2023 Non-patient / Non-visit Dr. Hernandez Work Phone: [facility] Work Phone: Start: 03-30-2023 End: 03-30-2023 Non-patient / Non-visit Dr. Malissa Rascon Work Phone: [facility] Work Phone: Start: 03-29-2023 End: 04-01-2023 Evaluation and management of inpatient [facility]-Progressive Care Unit Work Phone: Start: 03-23-2023 End: 03-27-2023 Evaluation and management of inpatient DR DMITRY MCKEON MD [facility] Start: 03-12-2023 End: 03-16-2023 ambulatory MALISSA RASCON MD Facility:B Start: 03-12-2023 End: 03-16-2023 Outreach Lab MALISSA RASCON MD [facility] Start: 03-05-2023 End: 03-05-2023 ambulatory MALISSA RASCON MD Facility:B Start: 02-25-2023 End: 02-25-2023 ambulatory MALISSA RASCON MD Facility:B Start: 02-25-2023 End: 02-25-2023 Patient encounter procedure MALISSA RASCON MD [facility] Start: 02-11-2023 End: 02-14-2023 Evaluation and management of inpatient TITI LYMAN MD Facility:A Start: 02-10-2023 End: 02-11-2023 Emergency department patient visit ISAAK HAYNES DO [facility] Start: 01-09-2023 End: 01-09-2023 ambulatory MALISSA RASCON MD Facility:B Start: 01-09-2023 End: 01-09-[address] AZAR KAHN MD [facility] Start: 01-06-2023 End: 01-06-2023 ambulatory [facility] Work Phone: Start: 01-06-2023 End: 01-06-2023 Patient encounter procedure [facility]-Laboratory, Specimen Work Phone: Start: 01-06-2023 End: 01-06-2023 ambulatory MALISSA RASCON MD Facility:B Start: 12-31-2022 End: 12-31-2022 ambulatory MALISSA RASCON MD Facility:B Start: 12-31-2022 End: 12-31-2022 Patient encounter procedure NIKO MARTÍNEZ SENIOR MANAGER QUALITY ASSURANCE-SURVEYING OR SPATIAL SCIENCE TECHNICIAN [facility] Start: 12-23-2022 End: 12-23-2022 ambulatory MALISSA RASCON MD Facility:B Start: 12-13-2022 End: 12-17-2022 Evaluation and management of inpatient VIVIEN PLATA SENIOR MANAGER QUALITY ASSURANCE-SURVEYING OR SPATIAL SCIENCE TECHNICIAN [facility] Start: 12-01-2022 End: 12-01-2022 ambulatory MALISSA RASCON MD Facility:B Start: 12-01-2022 End: 12-01-2022 Patient encounter procedure MALISSA RASCON MD [facility] Start: 11-28-2022 End: 12-02-2022 ambulatory MALISSA RASCON MD Facility:B Start: 11-24-2022 End: 11-24-2022 ambulatory MALISSA RASCON MD Facility:B Start: 11-21-2022 End: 11-21-2022 ambulatory [facility] Work Phone: Start: 11-21-2022 End: 11-21-2022 Patient encounter procedure [facility]-Radiology, [facility] Work Phone: Start: 11-19-2022 End: 11-19-2022 Emergency department patient visit JANIA SMALLWOOD MD [facility] Start: 11-10-2022 End: 03-13-2023 ambulatory MALISSA RASCON MD Facility:B Start: 11-10-2022 End: 03-13-2023 Physical therapy management NIKA DONALD MD [facility] Start: 10-27-2022 End: 10-27-2022 ambulatory MALISSA RASCON MD Facility:B Start: 10-27-2022 End: 10-27-2022 Patient encounter procedure NIKA DONALD MD [facility] Start: 10-20-2022 End: 10-20-2022 ambulatory [facility] Work Phone: Start: 10-20-2022 End: 10-20-2022 Patient encounter procedure [facility]Labor[facility] Work Phone: Start: 10-09-2022 End: 10-09-2022 ambulatory MALISSA RASCON MD Facility:B Start: 10-09-2022 End: 10-09-2022 Patient encounter procedure NIKA DONALD MD [facility] Start: 09-23-2022 End: 09-23-2022 Patient encounter procedure NIKA DONALD MD [facility] Start: 09-23-2022 End: 09-23-2022 ambulatory [facility] Work Phone: Start: 09-23-2022 End: 09-23-2022 Patient encounter procedure [facility]-Laboratory, Specimen Work Phone: Start: 09-09-2022 End: 09-09-2022 Patient encounter procedure MALISSA RASCON MD [facility] Start: 09-09-2022 End: 10-04-2023 Lab-Standing Order DR AZAR KAHN MD [facility] Start: 08-27-2022 End: 08-31-2022 Outreach Lab MALISSA RASCON MD [facility] Start: 07-14-2022 End: 07-14-[address] AZAR KAHN MD [facility] Start: 06-06-2022 End: 06-06-2022 ambulatory [facility] Work Phone: Start: 06-06-2022 End: 06-06-2022 Patient encounter procedure [facility]-Laboratory, Specimen Start: 06-05-2022 End: 06-05-2022 Patient encounter procedure NIKA DONALD MD [facility] Start: 05-29-2022 End: 05-29-2022 Emergency department patient visit ISAAK HAYNES DO [facility] Start: 05-23-2022 End: 05-23-[address] AZAR KAHN MD [facility] Start: 05-07-2022 End: 05-07-[address] AZAR KAHN MD [facility] Start: 04-26-2022 End: 04-28-2022 Evaluation and management of inpatient DR AZAR KAHN MD [facility] Start: 04-26-2022 End: 04-26-2022 Emergency department patient visit DR GONZALEZ CASTRO MD [facility] Start: 03-18-2022 End: 03-18-[address] AZAR KAHN MD [facility] Start: 02-28-2022 End: 02-28-2022 Patient encounter procedure MALISSA RASCON MD [facility] Start: 02-14-2022 End: 02-14-2022 Emergency department patient visit JANIA SMALLWOOD MD [facility] Start: 01-31-2022 End: 01-31-2022 Emergency department patient visit [facility]Emergency Department Start: 01-25-2022 End: 01-25-2022 ambulatory [facility] Work Phone: Start: 01-25-2022 End: 01-25-2022 Patient encounter procedure [facility]-Laboratory, Specimen Start: 01-03-2022 End: 04-08-[address] MALISSA WRIGHT MD [facility] Start: 12-02-2021 End: 12-02-2021 ambulatory [facility] Work Phone: Start: 12-02-2021 End: 12-02-2021 Patient encounter procedure [facility] Start: 11-21-2021 End: 11-21-2021 Patient encounter procedure MALISSA RASCON MD [facility] Start: 10-11-2021 End: 10-11-2021 Patient encounter procedure MALISSA RASCON MD [facility] Start: 08-28-2021 End: 09-01-2021 Outreach Lab MALISSA RASCON MD [facility] Start: 05-20-2021 End: 05-20-2021 Patient encounter procedure MALISSA RASCON MD [facility] Start: 05-16-2021 End: 05-16-2021 Patient encounter procedure MALISSA RASCON MD [facility] Start: 02-21-2021 End: 02-21-2021 Patient encounter procedure NIKA DONALD MD [facility] Start: 02-24-2017 End: 02-25-2017 Ambulatory MALISSA RASCON Facility:[facility] Procedures Date Procedure Procedure Detail Performing Clinician Start: 07-19-2024 CT of abdomen and pelvis without contrast Dr. Malissa Rascon MD Work Phone: Start: 06-23-[address] Malissa Rascon MD Work Phone: Start: 06-23-[address] Malissa Rascon MD Work Phone: Start: 06-16-2024 X-ray of chest, PA and lateral views Dr. Malissa Rascon MD Work Phone: Start: 05-17-[address] Malissa Rascon MD Work Phone: Start: 05-17-[address] Malissa Rascon MD Work Phone: Start: 05-04-2024 CT of chest without contrast Dr. Malissa Rascon MD Work Phone: Start: 03-07-[address] Malissa Rascon MD Work Phone: Start: 03-07-2024 Computed tomography of abdomen and pelvis with contrast Dr. Malissa Rascon MD Work Phone: Start: 03-02-2024 CT angiography of chest with contrast Dr. Malissa Rsacon MD Work Phone: Start: 02-25-2024 History of cholecystectomy S/P cholecystectomy [facility] Work Phone: Start: 02-24-2024 Antibody screen MALISSA RASCON Comment on above: Order Comment: Specimen Type: BLOOD SPEC IMENOrdering Facility: [facility] Address: [address] [place] [address] Performed By: #### T SCR ####[facility] BLOOD BANKIA [id number] [place] [address] [place] Start: 02-15-2024 Cholecystectomy HOUSTON CRISTOBAL DO Start: 12-16-2023 Echocardiography MALISSA RASCON Start: 06-06-2023 Plain chest X-ray Dr. Malissa Rascon Work Phone: Start: 04-07-2023 Diagnostic radiography of abdomen Dr. Malissa Rascon Work Phone: Start: 04-07-[address] Malissa Rascon Work Phone: Start: 03-30-2023 X-ray of cervical spine Dr. Malissa monsalve Work Phone: Start: 03-30-[address] Malissa Rascon Work Phone: Start: 03-29-2023 Investigation of transfusion reaction Dr. Malissa Rascon Work Phone: Start: 03-29-2023 Legionella pneumophila antigen assay Dr. Malissa Rascon Work Phone: Start: 03-29-[address] Malissa Rascon Work Phone: Start: 03-29-2023 SARS-CoV-2, Influenza & RSV (PCR) Start: 03-29-2023 Streptococcus pneumoniae Antigen (M Dr. Malissa Rascon Work Phone: Start: 03-29-2023 Computed tomography of abdomen and pelvis with intravenous contrast Start: 03-29-2023 CT angiography of chest with contrast Start: 03-23-2023 Destructive procedure MALISSA RASCON MD Comment on above: [facility] Pulmonary Vein Antral Isolation (PV AI) ablation Start: 01-06-2023 Investigation of transfusion reaction Start: 01-06-2023 Respiratory microbial culture Start: 12-16-[address] AZAR KAHN MD Comment on above: 1. Left ventricle: The cavity size is no rmal. Wall thickness is normal. Systolic function is mildly reduced. The estimated ejection fraction is 45%. There is mild diffuse hypokinesis. Regional wall motion abnormalities cannot be excluded. Grade II diastolic dysfunction. Accuracy of LV function estimate limited due to varying RR interval and foreshortening. 2. Mitral valve: The annulus is mildly calcified. There is mild regurgitation. 3. Left atrium: The atrium is mildly to moderately dilated. 4. Right ventricle: The RV systolic pressure by Doppler is 42 mm Hg. 5. Right atrium: Mobile echodensity in RA. Differential include prominent eustachian valve vs. catheter tip. Suspicion for mass low. The estimated right atrial pressure is 8 mm Hg. 6. Atrial septum: There is redundancy of the septum, with borderline criteria for aneurysm. 7. Pericardium, extracardiac: A prominent pericardial fat pad is present. A trivial pericardial effusion is identified. Start: 11-21-2022 [employer] Start: 10-20-2022 Acid fast bacilli culture Start: 10-20-2022 Cytopathology procedure, preparation of smear, genital source Start: 10-20-2022 Investigation of transfusion reaction Start: 10-20-2022 Respiratory microbial culture Start: 09-23-2022 Investigation of transfusion reaction Start: 09-23-2022 Respiratory microbial culture Start: 06-06-2022 Investigation of transfusion reaction Start: 06-06-2022 Respiratory microbial culture Start: 04-04-2022 Electrocardiographic monitor and recorder, device (physical object) DR AZAR KAHN MD Comment on above: 30 DAY 1. Predominant rhythm was sinus with average heart rate 68 bpm and the range 50 bpm to 120 bpm. 2. Patient had total 7 minutes of atrial fibrillation-flutter with longest run 6 minutes. 3. Patient symptoms of CP, skipped beats, heart racing, dizzy and lightheaded did not correlate with any significant arrhythmia as noted above.3 Start: 03-10-[address] MALISSA WRIGHT MD Comment on above: 1. Left ventricle: The cavity size is no rmal. Wall thickness is normal. Systolic function is mildly reduced. The estimated ejection fraction is 45%. There is mild diffuse hypokinesis. Grade I diastolic dysfunction. 2. Mitral valve: The annulus is mildly calcified. 3. Right ventricle: The RV systolic pressure by Doppler is 19 mm Hg. 4. Right atrium: The estimated right atrial pressure is 3 mm Hg. 5. Pericardium, extracardiac: A prominent pericardial fat pad is present Start: 01-31-2022 Plain chest X-ray Start: 10-11-[address] AZAR KAHN MD Comment on above: Findings are most compatible with inters titial pulmonary fibrosis greatest at the posterior lower lobes, with mild bronchiectasis. Mild bronchial wall thickening suggest an element of chronic bronchitis. No definite acute abnormality seen. Mildly prominent pulmonary artery which may be seen with pulmonary hypertension. Findings are most co mpatible with interstitial pulmonary fibrosis greatest at the posterior lower lobes, with mild bronchiectasis. Mild bronchial wall thickening suggest an element of chronic bronchitis. No definite acute abnormality seen. Mildly prominent pulmonary artery which may be seen with pulmonary hypertension. Start: 10-11-[address] AZAR KAHN MD Comment on above: 1. Left ventricle: The cavity size is no rmal. Wall thickness is normal. Systolic function is normal. The estimated ejection fraction is 55-60%. Wall motion is normal; there are no regional wall motion abnormalities. Unable to assess diastolic function. 2. Mitral valve: The annulus is moderately calcified. The leaflets are mildly thickened. 3. Right ventricle: The cavity size is mildly increased. The RV systolic pressure by Doppler is 37 mm Hg. 4. Right atrium: The atrium is dilated. The estimated right atrial pressure is 3 mm Hg. 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 Could not cross the l esion with a wire. 1st Diagonal ( Proximal ) Start: 05-20-[address] AZAR KAHN MD Comment on above: 1. Reversible defect in the anterolatera l and inferior wall suggesting ischemia in this area. 2. Normal ejection fraction of 61% with normal wall motion. 3. Compared to the prior study the reversible defects are new. 1. EKG portion of Lexiscan stress test is negative for inducible ischemia Start: 08-04-[address] AZAR KAHN MD Start: 08-02-[address] AZAR KAHN MD Comment on above: EF 65% Start: 03-18-[address] AZAR KAHN MD Comment on above: Left ventricle: The cavity size is ute l. Wall thickness is normal. Systolic function is normal. The estimated ejectionfraction is 55-60%. Wall motion is normal; there are no regional wall motion abnormalities. Start: 02-24-[address] AZAR KAHN MD Comment on above: 1. Negative Lexiscan EKG stress test for ischemia. 2. Normal physiological response to Lexiscan. 3. Occasional PVCs and PACs noted 1. No evidence of inducible ischemia 2. Moderate area of fixed defect involving the inferior, inferoseptal and inferolateral wall suggestive of prior myocardial infarction. 3. Mild hypokinesis of the inferior wall with normal systolic function, LVEF 61%. Start: 06-01-2014 Laminectomy NIKA DONALD MD Comment on above: lumbar Start: 12-23-2012 Colonoscopy NIKA DONALD MD Comment on above: Dr. Mckinney, repeat 5 years Start: 03-16-1998 Hernia repair NIKA DONALD MD Comment on above: X 2 Start: 03-16-1980 Open reduction of fracture with internal fixation NIKA DONALD MD Comment on above: RIGHT Start: 03-16-1943 Appendectomy NIKA DONALD MD Appendectomy NIKA DONALD MD Cardiac catheterization DIDI RASCON MD Hemorrhoidectomy NIKA HERRMANN MD Hernia of abdominal cavity (disorder) NIKA DONALD MD Comment on above: right inguinal x 2 History of cholecystectomy Statu s post cholecystectomy Dr. Parrish Shah MD Investigation of tra nsfusion reaction Investigation of tra nsfusion reaction Respiratory microbia l culture Respiratory microbia l culture Plan of Treatment Date Care Activity Detail Author Start: 03-01-2027 Diabetes Screening Diabetes Screening [facility] Start: 02-18-2027 Diabetes Screening Diabetes Screening [facility] Start: 02-08-2027 Diabetes Screening Diabetes Screening [facility] Start: 12-22-2026 Diabetes Screening Diabetes Screening [facility] Start: 08-05-2024 Anes transurethral w/urethrocystoscopy nos ANESTH BLADDER SURGERY [facility] Start: 08-05-2024 Cysto w/ureteroscopy w/lithotripsy CYSTOURETERO W/LITHOTRIPSY [facility] Start: 08-05-2024 Ambulation without limitation [facility] Start: 08-05-2024 Medication education [facility] Start: 08-05-2024 Taking patient vital signs [facility] Start: 08-05-2024 [facility] Start: 08-05-2024 End: 08-05-2024 Patient discharge [facility] Start: 03-16-2024 Advance Directive Discussion Advance Directive Discussion [facility] Start: 03-13-2024 Patient discharge [facility] Start: 03-12-2024 [facility] Start: 03-11-2024 Development of care plan [facility] Start: 03-11-2024 Application of elastic bandage [facility] Start: 03-11-2024 [facility] Start: 03-10-2024 Referral to service [facility] Start: 03-09-2024 [facility] Start: 03-08-2024 [facility] Start: 03-05-2024 [facility] Start: 03-04-2024 [facility] Start: 03-02-2024 Development of care plan [facility] Start: 03-02-2024 Developing a treatment plan [facility] Start: 03-02-2024 Oxygen therapy [facility] Start: 03-02-2024 Wound care [facility] Start: 03-02-2024 Provision of activity privileges [facility] Start: 03-02-2024 Inhalation therapy procedure [facility] Start: 03-01-2024 Admission procedure [facility] Start: 03-01-2024 Introduction of urinary catheter [facility] Start: 03-01-2024 Measuring intake and output [facility] Start: 03-01-2024 Patient referral to dietitian [facility] Start: 03-01-2024 Referral to occupational therapist [facility] Start: 03-01-2024 Referral to service [facility] Start: 03-01-2024 Vital signs measurements [facility] Start: 03-01-2024 End: 03-01-2024 [facility] Start: 03-01-2024 Following clinical pathway protocol [facility] Start: 02-24-2024 End: 02-24-2024 Admission to same day surgery center 02/24/2024 8:30 AM EST - 02/24/2024 11:15 AM EST [facility] [address] [place] [address] Aleksandra Izquierdo MD [address] [place] [address] LAPAROSCOPIC CHOLECYSTECTOMY/ POSSIBLE CHOLOANGIOGRAM/ POSSIBLE OPEN CHOLECYSTEACTOMY [facility] Comment on above: LAPAROSCOPIC CHOLECYSTECTOMY/ POSSIBLE C HOLOANGIOGRAM/ POSSIBLE OPEN CHOLECYSTEACTOMY Start: 02-24-2024 End: 02-24-2024 Anesthesia consultation 02/24/2024 8:30 AM EST Anesthesia Event [facility] [place] [address] Anthony Starr, SENIOR MANAGER [employer].[address] [place] [address] [facility] Start: 02-24-2024 End: 02-24-2024 Laparoscopy surg cholecystectomy LAPAROSCOPIC CHOLECYSTECTOMY Acute acalculous cholecystitis 02/24/2024 8:30 AM EST [facility] Start: 02-24-2024 Subsequent hospital visit by physician [facility] Comment on above: Acute acalculous cholecystitis [K81.0] Start: 02-19-2024 End: 02-19-2024 ambulatory 02/19/2024 1:40 PM EST PAT Pre Surgical Testing [address] [place] [address] LAPAROSCOPIC CHOLECYSTECTOMY/ POSSIBLE CHOLOANGIOGRAM/ POSSIBLE OPEN CHOLECYSTEACTOMY Pre Surgical Testing Comment on above: LAPAROSCOPIC CHOLECYSTECTOMY/ POSSIBLE C HOLOANGIOGRAM/ POSSIBLE OPEN CHOLECYSTEACTOMY Start: 02-16-2024 End: 02-16-2024 Patient encounter procedure 02/16/2024 11:00 AM EST Office Visit [facility] 1 [facility] [address] [place] [address] Michael Noel, SENIOR MANAGER [employer].SURVEYING OR SPATIAL SCIENCE TECHNICIAN 1 [facility] [address] [place], [place] [id number] surgery Lap gallo [facility] Comment on above: surgery Lap gallo Start: 02-15-2024 End: 02-15-2024 Patient encounter procedure [facility] Comment on above: surgery Lap gallo follow up ER per Dr. Patten Start: 09-07-2023 Shingrix Vaccine (2 of 2) Shingrix Vaccine (2 of 2) [facility] Start: 08-28-2023 Urine microalbumin profile DTaP,Tdap,Td Vaccine (2 - Tdap) [facility] Start: 06-06-2023 [facility] Start: 04-30-2023 Blood chemistry [facility] Start: 04-23-2023 Blood chemistry [facility] Start: 04-16-2023 Blood chemistry [facility] Start: 04-14-2023 Patient discharge [facility] Start: 04-13-2023 Development of care plan [facility] Start: 04-10-2023 Referral to service [facility] Start: 04-10-2023 [facility] Start: 04-02-2023 Developing a treatment plan [facility] Start: 04-02-2023 Development of care plan [facility] Start: 04-02-2023 Following clinical pathway protocol [facility] Start: 04-02-2023 [facility] Start: 04-02-2023 Verification routine [facility] Start: 04-01-2023 Following clinical pathway protocol [facility] Start: 04-01-2023 Speech therapy assessment [facility] Start: 04-01-2023 Admission procedure [facility] Start: 04-01-2023 Measuring intake and output [facility] Start: 04-01-2023 Patient referral to dietitian [facility] Start: 04-01-2023 Referral to occupational therapist [facility] Start: 04-01-2023 Referral to service [facility] Start: 04-01-2023 Vital signs measurements [facility] Start: 04-01-2023 [facility] Start: 04-01-2023 Patient discharge [facility] Start: 03-29-2023 Following clinical pathway protocol [facility] Start: 03-29-2023 Application of intermittent pneumatic compression device [facility] Start: 03-29-2023 Assessment of risk of venous thromboembolism [facility] Start: 03-29-2023 Care regimes management [facility] Start: 03-29-2023 Continuous positive airway pressure ventilation treatment [facility] Start: 03-29-2023 Fall prevention [facility] Start: 03-29-2023 Inhalation therapy procedure [facility] Start: 03-29-2023 Insertion of catheter into peripheral vein [facility] Start: 03-29-2023 Introduction of urinary catheter [facility] Start: 03-29-2023 Measuring intake and output [facility] Start: 03-29-2023 Notification of physician [facility] Start: 03-29-2023 Providing care according to standard [facility] Start: 03-29-2023 Provision of activity privileges [facility] Start: 03-29-2023 Referral to occupational therapist [facility] Start: 03-29-2023 Referral to service [facility] Start: 03-29-2023 [facility] Start: 03-29-2023 Verification routine [facility] Start: 03-29-2023 Hospital admission, emergency, from emergency room, medical nature [facility] Start: 03-29-2023 Brain natriuretic peptide measurement [facility] Start: 03-29-2023 Gastrointestinal pathogens panel - Stool by JAYDA with probe detection [facility] Start: 03-29-2023 Legionella pneumophila Ag [Presence] in Urine [facility] Start: 03-29-2023 Streptococcus pneumoniae antigen assay [facility] Start: 03-29-2023 [facility] Start: 03-29-2023 Admission procedure [facility] Start: 03-29-2023 [facility] Start: 03-29-2023 Patient referral to dietitian [facility] Start: 03-16-2023 Advance Directive Discussion Advance Directive Discussion [facility] Start: 01-31-2022 [facility] Work Phone: Start: 1958 Anxiety Screening Anxiety Screening [facility] Start: 1958 Depression Screening Depression Screening [facility] Start: 1958 Hepatitis B surface antibody level LDL Cholesterol [facility] Start: 1958 Spirometry Spirometry [facility] Acid fast bacilli culture [facility] H&P for surgery H&P FOR SURGERY Procedures Routine Acute acalculous cholecystitis Ordered: 02/10/2024 [facility] Work Phone: Comment on above: Ordered: 02/10/2024 Laparoscopy surg cholecystectomy LAPAROSCOPIC CHOLECYSTECTOMY Acute acalculous cholecystitis [facility] Mycobacterium sp identified in Unspecified specimen by Organism specific culture [facility] Patient Education [facility] Work Phone: Patient referral [facility] Work Phone: Immunizations Immunization Date Immunization Notes Care Provider Fa cility 12-01-2023 Covid (Spikevax) Dr. Malissa Rascon MD Work Phone: [facility] 12-01-2023 SARS-CoV-2 (COVID-19 ) [id number] 1 MADDY REDDY SENIOR MANAGER [employer]-SURVEYING OR SPATIAL SCIENCE TECHNICIAN [facility] Comment on above: Result Comment: 2023: TPV80 11-26-2023 influenza virus vacc ine, unspecified formulation MADDY REDDY SENIOR MANAGER QUAL[employer] ASSURANCE-SURVEYING OR SPATIAL SCIENCE TECHNICIAN [facility] 11-26-2023 influenza, high dose seasonal, preservative-free Dr. Malissa Rascon MD Work Phone: [facility] 07-13-2023 zoster vaccine recombinant MADDY REDDY SENIOR MANAGER QUALITY ASSURANCE-SURVEYING OR SPATIAL SCIENCE TECHNICIAN [facility] 04-07-2023 Covid (Spikevax) Dr. Malissa Rascon Work Phone: [facility] 04-07-2023 SARS-CoV-2 (COVID-19 ) mRNA-[id number] 2 MADDY REDDY SENIOR MANAGER QUAL[employer] ASS[employer]ANCE-SURVEYING OR SPATIAL SCIENCE TECHNICIAN [facility] Comment on above: Result Comment: 2023: [id number] 02-23-2023 RSV Adult Recombinan t (Arexvy) Dr. Malissa Rascon MD Work Phone: [facility] 02-23-2023 RSV vaccine preF3, recombinant MALISSA RASCON MD [facility] 02-13-2023 RSV Adult Recombinan t (Arexvy) Dr. Malissa Rascon Work Phone: [facility] 12-19-2022 influenza, injectabl e, quadrivalent, preservative free Dr. Malissa Rascon Work Phone: [facility] 12-19-2022 influenza, high dose seasonal, preservative-free; Translations: [Fluad Quadrivalent PF ] NIKO FAIZA SANTORO [facility] 11-14-2022 influenza, injectabl e, quadrivalent, preservative free Dr. Malissa Rascon Work Phone: [facility] 01-06-2022 COVID-19, mRNA, LNP- S, bivalent booster, PF, 30 mcg/0.3 mL dose; Translations: [Pfizer-BioNTech COVID-19 (12y+) Bivalent Booster Vaccine PF] JANIA SMALLWOOD MD [facility] 01-06-2022 SARSCoV2 mRNA(ezaeowsbrxy63x+)biv al vac; Translations: [Pfizer-BioNTech COVID-19 (12y+) Bivalent Booster Vaccine PF] MALISSA RASCON MD [facility] 01-02-2022 influenza, high dose seasonal, preservative-free JANIA SMALLWOOD MD [facility] 01-02-2022 influenza, injectabl e, quadrivalent, preservative free Dr. Malissa Rascon MD Work Phone: [facility] 01-10-2021 SARS-CoV-2 (COVID-19 ) mRNA-1273 vaccine JANIA SMALLWOOD MD [facility] Comment on above: Result Comment: 2021: [id number] 01-07-2021 influenza, high dose seasonal, preservative-free; Translations: [Fluad Quadrivalent PF ] NIKA DONALD MD [facility] 01-07-2021 influenza, injectabl e, quadrivalent, preservative free Dr. Malissa Rascon MD Work Phone: [facility] 05-11-2020 SARS-CoV-2 (COVID-19 ) mRNA-1273 vaccine NIKA DONALD MD [facility] 04-13-2020 SARS-CoV-2 (COVID-19 ) mRNA-1273 vaccine NIKA DONALD MD [facility] Comment on above: Result Comment: 2020: [id number] 12-07-2019 influenza, injectabl e, quadrivalent, preservative free; Translations: [Fluarix PF Quadrivalent ] NIKA DONALD MD [facility] Comment on above: Early/Late Reason: O ther: 01-04-2019 influenza, injectabl e, quadrivalent, preservative free; Translations: [Fluarix PF Quadrivalent ] NIKA DONALD MD [facility] 02-02-2018 influenza virus vacc ine, unspecified formulation NIKA DONALD MD [facility] 02-02-2018 influenza, injectabl e, quadrivalent, preservative free Dr. Malissa Rascon MD Work Phone: [facility] 12-24-2015 pneumococcal conjuga te vaccine, 13 valent NIKA DONALD MD [facility] 08-27-2013 diphtheria and tetan us toxoids, adsorbed for pediatric use Dr. Malissa Rascon MD Work Phone: [facility] 08-27-2013 tetanus and diphther ia toxoids, adsorbed, preservative free, for adult use (5 Lf of tetanus toxoid and 2 Lf of diphtheria toxoid) NIKA DONALD MD [facility] 07-11-2013 pneumococcal polysaccharide vaccine, 23 valent NIKA DONALD MD [facility] 05-11-2006 pneumococcal polysaccharide vaccine, 23 valent NIKA DONALD MD [facility] Payers Date Payer Category Payer Private Health Insurance 173 [id number] 2024 Self-pay [id number] 2023 Medicare [id number] 2022 Medicare [id number] 2022 Unknown [id number] 2016 Unknown [id number] 1938 Unknown [id number] 2.16.8 40.1.138151.3.579.2. 1938 Unknown [id number] 2.16.8 40.1.178906.3.579.2.62 1938 Unknown [id number] 2.16.8 40.1.524211.3.579.2. 1938 Unknown [id number] 2.16.8 40.1.536166.3.579.2. 1938 Unknown [id number] 2.16.8 40.1.955953.3.579.2.627 1938 Unknown [id number] 2.16.8 40.1.780178.3.579.2.62 1938 Unknown [id number] 2.16.8 40.1.140037.3.579.2.62 1938 Unknown [id number] 2.16.8 40.1.841058.3.579.2. 1938 Unknown [id number] 2.16.8 40.1.150491.3.579.2. 1938 Unknown [id number] 2.16.8 40.1.181302.3.579.2. 1938 Unknown [id number] 2.16.8 40.1.075868.3.579.2. 1938 Unknown [id number] 2.16.8 40.1.305748.3.579.2. 1938 Unknown [id number] 2.16.8 40.1.063147.3.579.2. 1938 Unknown [id number] 2.16.8 40.1.729037.3.579.2. 1938 Unknown [id number] 2.16.8 40.1.717311.3.579.2. 1938 Unknown [id number] 2.16.8 40.1.269300.3.579.2. 1938 Unknown [id number] 2.16.8 40.1.884014.3.579.2. 1938 Unknown [id number] 2.16.8 40.1.912791.3.579.2. 1938 Unknown [id number] 2.16.8 40.1.753776.3.579.2. 1938 Unknown [id number] 2.16.8 40.1.166572.3.579.2. 1938 Unknown [id number] 2.16.8 40.1.938715.3.579.2.62 1938 Unknown [id number] 2.16.8 40.1.424543.3.579.2. 1938 Unknown [id number] 2.16.8 40.1.307333.3.579.2. 1938 Unknown [id number] 2.16.8 40.1.344334.3.579.2. 1938 Unknown [id number] 2.16.8 40.1.876921.3.579.2. 1938 Unknown [id number] 2.16.8 40.1.907975.3.579.2. 1938 Unknown [id number] 2.16. 840.1.062560.3.579.2. 1938 Unknown [id number] 2.16. 840.1.225371.3.579.2. 1938 Unknown [id number] 2.16. 840.1.536454.3.579.2. 1938 Unknown [id number] 2.16.8 40.1.379598.3.579.2. 1938 Unknown [id number] 2.16.8 40.1.465838.3.579.2. 1938 Unknown [id number] 2.16.8 40.1.867704.3.579.2.62 1938 Unknown [id number] 2.16.8 40.1.782070.3.579.2.627 Unknown [id number] 2.16.8 40.1.443498.3.579.2.462 Unknown [id number] 2.16.8 40.1.165944.3.579.2.462 Unknown [id number] 2.16.8 40.1.980426.3.579.2.462 Unknown [id number] 2.16.8 40.1.664481.3.579.2.462 Unknown [id number] 2.16.8 40.1.160415.3.579.2.462 Unknown [id number] 2.16.8 40.1.282678.3.579.2.462 Unknown [id number] 2.16.8 40.1.359829.3.579.2.462 Unknown [id number] 2.16.8 40.1.490241.3.579.2.462 Unknown [id number] 2.16.8 40.1.086796.3.579.2.462 Unknown [id number] 2.16.8 40.1.026103.3.579.2.462 Unknown [id number] 2.16.8 40.1.025428.3.579.2.462 Unknown [id number] 2.16.8 40.1.407957.3.579.2.462 Unknown [id number] 2.16.8 40.1.246773.3.579.2.462 Social History Date Type Detail Facility Start: 09-27-2018 End: 07-22-2024 Ex-smoker (finding) [facility] Comment on above: Tobacco/Smoke Exposu re: none Start: 1940 Sex Assigned At Male A [facility] Start: 06-27-2021 End: 06-06-2023 Tobacco smoking status NHIS Unknown if ever smoked [facility] Start: 01-05-2018 None [facility] Start: 01-05-2018 Spouse/ Signif icant Other [facility] Start: 12-01-2018 Non-smoker [facility] Start: 02-03-2024 Tobacco smoking stat us NHIS Never smoked tobacco [facility] Start: 02-03-2024 End: 02-09-2024 Tobacco use and exposure Smokeless tobacco non-user [facility] Start: 02-03-2024 End: 02-24-2024 Alcoholic beverage intake Lifetime non-drinker (finding) [facility] Start: 10-29-2023 End: 02-03-2024 History of Social function [facility] Start: 10-29-2023 End: 02-03-2024 [facility] Utilities [facility] Has the [employer], [employer], [employer], or water company threatened to shut off services in your home in past 12Mo No [facility] (I/We) worried josselyn er (my/our) food would run out before (I/we) got money to buy more. Never true [facility] In the past 12 month s, has lack of transportation kept you from medical appointments or from getting medications? No [facility] Start: 1940 Sex assigned at Not on file C [facility] History of tobacco use Current smoker [facility] History of tobacco use Cigarette Smoker C [facility] Sexual Orientation [facility] Start: 02-08-2019 End: 06-28-2024 Sex Male (finding) [facility] Medical Equipment Procedure Code Equipment Code Equipment Origin al Text Equipment Identifier Dates Femoral vessel s uture implantation set [id number] [facility] Start: 05-27-2021 Goals Date Patient Goal Desired Activity /State Functional Status Date Assessment Result Facility 08-05-2024 Functional status Ambulates [facility] Work Phone: 03-13-2024 Functional status Up ad verna;Bedrest [facility] Work Phone: 03-12-2024 Functional status Standard Walker [facility] Work Phone: 04-14-2023 Functional status Ambulates;Up ad verna [facility] Work Phone: 04-13-2023 Functional status Tolerates Activity Fair [facility] Work Phone: 04-01-2023 Functional status Activity Abili ty With Assist of 1 [facility] Work Phone: 03-31-2023 Functional status Assist with Urinal [facility] Work Phone: 03-27-2023 Functional Status Room check performed [facility] 03-27-2023 Functional Status [facility] 03-27-2023 Functional Status [facility] 03-27-2023 Functional Status Up to Chair Returned to bed [facility] 03-27-2023 Functional Status Supervised 8 [facility] 03-27-2023 Functional Status [facility] 03-27-2023 Functional Status Lights dimmed, Resting [facility] 03-27-2023 Functional Status [facility] 03-26-2023 Functional Status Up with assistance [facility] 03-26-2023 Functional Status Mod I [facility] 03-25-2023 Functional Status Nurse Shara gutierrez q2hrs Performed 7pm-11pm [facility] 03-25-2023 Functional Status Dinner Percent 50 [facility] 03-25-2023 Functional Status [facility] 03-25-2023 Functional Status [facility] 03-24-2023 Functional Status Initiated [facility] 03-23-2023 Functional Status Sensory Defici ts Hearing deficit, left ear, Hearing deficit, right ear [facility] 03-23-2023 Functional Status Patient Identi fied Identification band [facility] 03-23-2023 Functional Status [facility] 02-10-2023 Functional Status Standard Safet y ID band on, Call device within reach, Bed in low position, Wheels locked, personal items within reach, Bedside Cart Locked, Visitor at bedside [facility] 12-17-2022 Functional Status 7am-3pm [facility] 12-17-2022 Functional Status [facility] 12-17-2022 Functional Status Independent [facility] 12-17-2022 Functional Status bilateral knee high tip lied/on [facility] 12-17-2022 Functional Status [facility] 12-17-2022 Functional Status [facility] 12-16-2022 Functional Status [facility] 12-16-2022 [facility] Functional Status Alison [facility] 12-16-2022 Functional Status Alison [facility] 12-16-2022 Functional Status Alison [facility] 12-16-2022 [facility] 12-15-2022 Functional Status [facility] 12-15-2022 [facility] 12-15-2022 Functional Status Single level home [facility] 12-13-2022 Functional Status Sensory Defici ts Hearing deficit, left ear, Hearing deficit, right ear [facility] 11-19-2022 Functional Status Up ad verna [facility] 11-19-2022 Functional Status Identified as high risk, Fall ID band on [facility] 11-10-2022 Functional Status Objective: Observation: Cardiovascular screen: BP:102/70, O2 sat: 94% HR: 86 bpm Sensation: Grossly intact and symmetrical light touch. Reflexes: Quads R: 1+ L: 1+ Achilles R: 1+ L: 1+ Gait: 5mwt: 12 seconds =0.41 m/secTUsec [facility] 05-29-2022 Functional Status Assistive Device None A [facility] 04-28-2022 Functional Status Identified as high risk, Fall ID band on, Room located near nursing station, Bed alert on, Door open, Bathroom light on, Non-Slip footwear, Room check performed [facility] 04-28-2022 Functional Status [facility] 04-27-2022 Functional Status [facility] 04-26-2022 Functional Status Sensory Defici ts Hearing deficit, left ear, Hearing deficit, right ear [facility] 04-26-2022 Functional Status Standard Safet y ID band on, Call device within reach, Bed in low position, Wheels locked, Upper/Half-Length side-rails up, Phone within reach, personal items within reach, Visitor at bedside [facility] 02-14-2022 Functional Status Independent Alison corey [facility] 02-14-2022 Functional Status Room check performed [facility] 01-03-2022 Functional Status Objective: Observation: Rounded shoulders and mild forward head posture with some excess thoracic kyphosis Sensation: grossly intact and symmetrical to light touch bilat LE's Cardiovascular screen: HR: 74BPM O2 sat: 93% BP: 120/80 Reflexes: Quads R: 1+ L: 1+ Achilles R: 1+ L: 1+ Gait: antalgic gait with wide base of support takes small steps. Trunk AROM: Flex: Ext: SGIS: R: L: Palpation: Tender to palpation denies tenderness to palpation spine and lumbar paraspinals Special Tests: Slump: +R [facility] Mental Status Date Assessment Result Facility 08-05-2024 Cognitive function Voice/Name [facility] Work Phone: 03-13-2024 Cognitive function Voice/Name [facility] Work Phone: 03-09-2024 [facility]: 06-06-2023 Cognitive function Awake;Alert [facility] Work Phone: 06-06-2023 Cognitive function Arousable To Voice/Nam e [facility] Work Phone: 04-14-2023 Cognitive function Voice/Name [facility] Work Phone: 04-02-2023 Cognitive function Appropriate;Cooperativ e [facility] Work Phone: 04-01-2023 Cognitive function Voice/Name [facility] Work Phone: 03-29-2023 Cognitive function Voice/Name [facility] Work Phone: 03-27-2023 Mental Status Orientation Oriented x 4 [facility] 03-27-2023 Mental Status [facility] 03-27-2023 Mental Status [facility] 03-26-2023 Mental Status [facility] 02-10-2023 Mental Status Orientation Oriented x 4 [facility] 12-17-2022 Mental Status Oriented x 4 [facility] 12-16-2022 Mental Status [facility] 12-16-2022 Mental Status [facility] 12-16-2022 Mental Status [facility] 11-19-2022 Mental Status Orientation Oriented x 4 [facility] 11-19-2022 Mental Status [facility] 05-29-2022 Mental Status Orientation Oriented x 4 [facility] 04-28-2022 Mental Status Oriented x 4 [facility] 04-28-2022 Mental Status [facility] 04-27-2022 Mental Status [facility] 04-26-2022 Mental Status Orientation Oriented x 4 [facility] 02-14-2022 Mental Status Orientation Oriented x 4 [facility] 02-14-2022 Mental Status [facility] Clinical Notes 11-26-2020 to 01-26-2025 Alanna Choudhary APRN.SURVEYING OR SPATIAL SCIENCE TECHNICIAN, DNP - 03/21/2024 1:15 PM EST Note Date & Type Note Facility 01-26-2025 Note . MICRO - Microbiology PROCEDURE: Urine Culture [*1] SOURCE: Urine, Clean Catch BODY SITE: COLLECTED DATE/TIME: 01/24/2025 15:51 EST RECEIVED DATE/TIME: 01/25/2025 14:53 EST START DATE/TIME: 01/25/2025 14:53 EST FREE TEXT SOURCE: FINAL REPORTS Final Report [] Verified Date/Time/Personnel: 01/26/2025 14:36 EST 50,000 - 100,000 cfu/ml Mixed growth consistent with normal urogenital lyudmila. PRELIMINARY REPORTS Preliminary Report [] Verified Date/Time/Personnel: 01/25/2025 15:59 EST Specimen received in lab. Performing Locations *1: This test was performed at: [facility], [address] [place] [address], [phone]- , [facility] 08-05-2024 Note [facility] Medical Records Department [address] [place] [address] History Physical Exam 08/05/24 0720 MR#: [id number] Acct: [id number] Name: HIRAM DORAN Rep #: [id number] : 1940 83 From: Juaquin Pierre MD PCP: Dr. Malissa Rascon MD Status:[facility] Location: [place] [address] HPI - General General Date of Service: 08/05/24 Chief Complaint: Right renal pelvic stone HPI Narrative HIRAM DORAN, is a 83 M who presents for treatment of a stone in the right renal pelvis with laser lithotripsy and stent placement [facility] Medical History History of stress test History of echocardiogram Ambulates with cane COPD (chronic obstructive pulmonary disease) Difficulty swallowing Gastric reflux History of edema History of atrial fibrillation Cardiology follow-up encounter Dementia Grade II diastolic dysfunction Vitamin D deficiency Wears hearing aid in both ears Anemia Pancreatitis Former smoker CPAP (continuous positive airway pressure) dependence Sleep apnea On home oxygen therapy Congestive heart failure (CHF) TIA (transient ischemic attack) Muscle spasm (HFpEF) heart failure with preserved ejection fraction Macular degeneration Orthostatic hypotension Coronary artery disease Depression Anxiety Pulmonary fibrosis Sinus node dysfunction HFrEF (heart failure with reduced ejection fraction) Chronic diarrhea COPD (chronic obstructive pulmonary disease) Retroperitoneal hematoma 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 Obstructive sleep apnea Hyperlipidemia SVT (supraventricular tachycardia) GERD (gastroesophageal reflux disease) COPD (chronic obstructive pulmonary disease) BPH (benign prostatic hyperplasia) Paroxysmal atrial fibrillation Home Medications ???Medication ???Instructions ???Recorded ???Last Taken ???Type rosuvastatin 5 mg tablet (Crestor) 5 mg PO QDAY cholesterol 8 08/04/24 History metoprolol succinate 25 mg 25 mg PO DAILY AFIB 06/27/2108/05 History tablet,extended release 24 hr nitroglycerin 0.4 mg sublingual 0.4 mg sublingual Q5M PRN CP 06/27 Unknown History tablet dofetilide 250 mcg capsule 250 mcg PO Q12H afib 03/29/2311/15 History duloxetine 60 mg capsule,delayed 120 mg PO DAILY mood 03/29/2307/15 History release empagliflozin 25 mg tablet 12.5 mg PO DAILY heart 03/29/23 History (Jardiance) finasteride 5 mg tablet 5 mg PO DAILY bph 03/29/23 5 History levalbuterol HCl 0.63 mg/3 mL 0.63 mg inhalation TID copd 08/05/24 History solution for nebulization midodrine 5 mg tablet 5 mg PO 1000,1400,1800 blood 03/2908/04/24 History pressure vit C 250 mg-vit E 200 unit-zinc 1 cap PO DAILY supplement 03/29/23 08/04/24 History ox 12.5 bm-nrluzj-lunlpn-zeax capsule (ICaps AREDS2) lorazepam 0.5 mg tablet 0.5 mg PO QHS Anxiety #5 tabs 03/1608/04/24 Rx apixaban 5 mg tablet (Eliquis) 5 mg PO BID BLOOD THINNER #0 tabs 04/10/23 07/31/24 Rx ezetimibe 10 mg tablet 10 mg PO QHS cholesterol 10/24/23 08/04/24 History guaifenesin 1,200 mg tablet, 1,200 mg PO BID mucus relief 10/2308/04/24 History extended release 12 hr (Mucinex) pantoprazole 40 mg tablet,delayed 40 mg PO DAILY GERD 10/24/2307/15 History release tiotropium 2.5 mcg-olodaterol 2.5 2 inh inhalation DAILY COPD 10/2308/05/24 History mcg/actuation mist for inhalation (Stiolto Respimat) methocarbamol 750 mg tablet 750 mg PO BID Muscle Relaxer 11/1908/04/24 History sucralfate 100 mg/mL oral 1 g PO DAILY antacid 11/20/2307/15 History suspension (Carafate) Lactobacillus acidophilus, 1 packet PO TIDCM supplement 12/22 Unknown History bulgaricus 100 million cell granules packet (Floranex) tamsulosin 0.4 mg capsule 0.8 mg PO QHS bph 12/23/23 5 History mirtazapine 15 mg tablet 7.5 mg (1/2 x 15 mg) PO QHS #0 tab s 01/22/24 Unknown Rx budesonide 0.5 mg/2 mL suspension 0.5 mg inhalation BID Asthma 02/1308/05/24 History for nebulization lidocaine 4 % topical patch 2 patch topical DAILY pain 4 Unknown History sennosides 8.6 mg-docusate sodium 1 tab-cap PO DAILY stool softener 03/01/24 08/04/24 History 50 mg tablet (Senna-S) bumetanide 0.5 mg tablet 1 mg (2 x 0.5 mg) PO MOWEFR PRN Unknown Rx EDEMA #1 TAB cholecalciferol (vitamin D3) 25 25 mcg PO DAILYCM #90 tabs 4 08/04/24 Rx mcg (1,000 unit) tablet Lactobacillus acidophilus 10 mg PO DAILY 07/22/24 08/04/24 H istory (Acidophilus capsule) acetaminophen 500 mg capsule 500 mg PO TID 07/22/24 08/04/24 Hi story acetaminophen 500 mg capsule 500 mg PO Q6H PRN pain #20 caps (more content not included)... [facility] 07-19-2024 Radiology Diagnostic study note [facility] Imaging Services [address] [place] [place], [place] [address] Abdomen/Pelvis without Cont MR#: [id number] Acct: [id number] Name: HIRAM DORAN Rep #: [id number] : 1940 M 83 From: Rosalina Haynes MD PCP: Dr. Malissa Rascon MD Status: REG CLI Study:Abdomen/Pelvis without Cont Date of Exa m: 07/19/24 Exam# [id number] Ordering Dr: Sonu Pierre MD PROCEDURE: ABDOMEN/PELVIS WITHOUT CONT 07/19/2024 REASON FOR EXAM: GROSS HEMATURIA TECHNIQUE: Abdomen and pelvis CT without intravenous contrast. Noncontrast technique limits evaluation of the abdominal and pelvic viscera. Coronal and Sagittal reconstruction series were provided. One or more dose reduction techniques were used (e.g., Automated exposure control, adjustment of the mA and/or kV according to patient size, use of iterative reconstruction technique). PATIENT PREPARATION: Per protocol ORAL CONTRAST TYPE: None. AMOUNT: mL COMPARISON: CT abdomen and pelvis 03/07/2024 FINDINGS: Lung bases: Severe emphysema. Bibasilar atelectasis and scarring. Severe coronary artery calcifications. Trace pericardial effusion. Liver: Normal size. No obvious mass. Gallbladder: No ductal dilation. Status post cholecystectomy. Spleen: No splenomegaly. Scattered calcified granulomas. Pancreas: Normal size. No surrounding inflammation. Adrenals: Unremarkable. Kidneys: 4 mm proximal right ureteral obstructing calculus without hydronephrosis. No suspicious mass. Bladder: 12 mm lateral right diverticulum. No wall thickening. Reproductive Organs: No pelvic mass. Bowel: Stomach is unremarkable. No bowel dilation or significant wall thickening. Moderate colonic stool. Colonic diverticulosis without diverticulitis. Appendix: The appendix is not identified. There is no inflammatory process identified in the right lower quadrant to suggest appendicitis. Lymph nodes: No suspicious lymph node enlargement. Vasculature: The abdominal aorta and IVC contours are normal. Noncontrast technique limits evaluation. Moderate atherosclerotic calcifications. Peritoneum / Retroperitoneum: No pneumoperitoneum. Bones: Degenerative changes of the spine. Soft tissue: Small fat containing umbilical hernia. CT/Abdomen/Pelvis without Cont IMPRESSION: 1. 4 mm proximal right ureteral obstructing calculus without hydronephrosis. 2. Colonic diverticulosis without diverticulitis. Reading Location: [facility] CC: Dr. Juaquin Pierre MD; Dr. Malissa Rascon MD ~ Public Health Officer: Signed [facility] 07-18-2024 Note . MICRO - Microbiology PROCEDURE: Urine Culture [*1] SOURCE: Urine, Clean Catch BODY SITE: COLLECTED DATE/TIME: 07/16/2024 10:28 EDT RECEIVED DATE/TIME: 07/16/2024 16:27 EDT START DATE/TIME: 07/16/2024 16:27 EDT FREE TEXT SOURCE: FINAL REPORTS Final Report [] Verified Date/Time/Personnel: 07/18/2024 07:28 EDT <10,000 cfu/ml. No Significant growth. Sensitivity not indicated. PRELIMINARY REPORTS Preliminary Report [] Verified Date/Time/Personnel: 07/17/2024 09:58 EDT No growth to date Preliminary Report [] Verified Date/Time/Personnel: 07/16/2024 16:59 EDT Specimen received in lab. Performing Locations *1: This test was performed at: [facility], [address] [place] [address], [phone]- , [facility] 06-17-2024 Radiology Diagnostic study note [facility] Imaging Services [address] [place] [id number] Chest PA and Lateral MR#: [id number] Acct: [id number] Name: HIRAM DORAN Rep #: [id number] : 1940 M 83 From: Domingo Hand MD PCP: Dr. Malissa Rascon MD Status: REG CLI Study:Chest PA and Lateral Date of Exam: 06/16/24 Exam# [id number] Ordering Dr: Nika Donald MD EXAM: XR Chest, 2 Views CLINICAL INDICATION: COPD TECHNIQUE: Frontal and lateral views of the chest. COMPARISON: No relevant prior studies available. FINDINGS: LUNGS AND PLEURAL SPACES: Bibasilar atelectasis or pneumonia. Pulmonary venouscongestion. No pneumothorax. HEART: Unremarkable. No cardiomegaly. MEDIASTINUM: Unremarkable. Normal mediastinal contour. BONES/JOINTS: Unremarkable. No acute fracture. RAD/Chest PA and Lateral IMPRESSION: 1. Bibasilar atelectasis or pneumonia. 2. Pulmonary venous congestion. Reading [facility] CC: Dr. Nika Donald MD; Dr. Malissa Rascon MD ~ Public Health Officer: Signed [facility] 03-21-2024 History of Present illness Narrative This Team Access Model visit is a phone encounter. It required patient-provider interaction for the medical decision making as documented below. Notation of pt consent to encounter via telephone: verbal Name of all people present during telemedicine encounter and their role: Hiram Doran, patient; Mili- daughter; Alannayu Choudhary APRN.[facility] CC or reason for telephone encounter: postoperative follow-up Relevant history, background and/or results: Mr. Doran is a 83-year-old male with PMH COPD, former smoker, JORGE ( on CPAP 3L O2), DM, HTN, HLD, afib on Eliquis, malnutrition, atrial fibrillation and lung abscess, chronic hypotension on Midodrine who underwent Laparoscopic converted to open cholecystectomy with Dr. Izquierdo with findings of Inflamed edematous gallbladder. He was discharged to SNF on POD 6. Assessment: Mr. Doran is recovering well. Initial pain which has improved only minimal with movements. Has had a fluctuating appetite except for today. He had one large episode of emesis bilious non-bloody emesis last 30 minutes. At the time of our phone call, he was denying fever, chills, or nausea. Having bowel movements at his normal. Very interesting in progressing his therapy, currently has [facility], PT/OT. Pathology: FINAL DIAGNOSIS A. Gallbladder, cholecystectomy: - Acute cholecystitis and focal cholesterolosis. Plan and next steps: -Follow-up with surgery clinic PRN -Avoid lifting anything heavier than 15 pound until 04/06 (6 weeks from surgery) -Advised to present to the ED for evaluation if has persistent nausea, vomiting, or abdominal pain. Total time spent on medical discussion: 15 minutes I have communicated my name and active licensure. The patient's identity and physical location were verified at the time of this visit. Either the patient or their legal support representative has been informed of the risks and benefits of -- and alternatives to -- treatment through a remote evaluation and consents to proceed with the evaluation remotely. documented in this encounter [facility] 03-21-2024 Note [facility] 03-12-2024 Note [facility] Medical Records Department [address] [place] [address] Discharge Summary 03/12/24 1332 MR#: [id number] Acct: [id number] Name: HIRAM DORAN Rep #: [id number] : 1940 83 From: Jasmyne Birch DO PCP: Dr. Malissa Rascon MD Status:ADM IN Location: [address] Date of Admission: 03/01/24 Date of Discharge: 03/13/24 Primary Care Physician: Dr. Malissa Rascon MD Reason For Visit: ACUTE ACALCULOUS CHOLECYSTITIS, CHOLECYSTECTO Diagnosis Discharge Diagnosis (1) Debility: Status: Acute Code(s): R53.81 - Other malaise (2) Acalculous cholecystitis: Status: Acute Code(s): K81.9 - Cholecystitis, unspecified (3) Status post cholecystectomy: Status: Acute Code(s): Z90.49 - Acquired absence of other specified parts of digestive tract (4) (HFpEF) heart failure with preserved ejection fraction: Status: Acute Code(s): I50.30 - Unspecified diastolic (congestive) heart failure Qualifiers: Heart failure chronicity: acute on chronic Qualified Code(s): I50.33 - Acute on chronic diastolic (congestive) heart failure Plan: Lower extremity edema is better after the Bumex 1 mg yesterday and his weight is down 3 pounds. (5) Grade II diastolic dysfunction: Status: Acute Code(s): I51.89 - Other ill-defined heart diseases (6) Hypokalemia: Status: Acute Code(s): E87.6 - Hypokalemia Plan: K is 3.8 today following supplementation yesterday. (7) Paroxysmal atrial fibrillation: Status: Chronic Code(s): I48.0 - Paroxysmal atrial fibrillation (8) Hypothyroidism: Status: Acute Code(s): E03.9 - Hypothyroidism, unspecified Qualifiers: Hypothyroidism type: unspecified Qualified Code(s): E03.9 - Hypothyroidism, unspecified (9) Orthostatic hypotension: Status: Acute Code(s): I95.1 - Orthostatic hypotension (10) Atrial fibrillation: Status: Acute Code(s): I48.91 - Unspecified atrial fibrillation Qualifiers: Atrial fibrillation type: unspecified chronic Qualified Code(s): I48.20 - Chronic atrial fibrillation, unspecified (11) Coronary artery disease: Status: Acute Code(s): I25.10 - 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 Qualifiers: Coronary Disease-Associated Artery/Lesion type: unspecified vessel or lesion type [place] vs. transplanted heart: ak chin heart Associated angina: without angina Qualified Code(s): I25.10 - 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 (12) Depression: Status: Acute Code(s): F32.A - Depression, unspecified Qualifiers: Depression Type: unspecified Qualified Code(s): F32.A - Depression, unspecified (13) Anxiety: Status: Acute Code(s): F41.9 - Anxiety disorder, unspecified (14) COPD (chronic obstructive pulmonary disease): Status: Chronic Code(s): J44.9 - Chronic obstructive pulmonary disease, unspecified Qualifiers: COPD type: unspecified COPD Qualified Code(s): J44.9 - Chronic obstructive pulmonary disease, unspecified (15) BPH (benign prostatic hyperplasia): Status: Acute Code(s): N40.0 - Benign prostatic hyperplasia without lower urinary tract symptoms Qualifiers: Lower urinary tract symptom presence: unspecified whether lower urinary tract symptoms present Qualified Code(s): N40.0 - Benign prostatic hyperplasia without lower urinary tract symptoms (16) GERD (gastroesophageal reflux disease): Status: Acute Code(s): K21.9 - Gastro-esophageal reflux disease without esophagitis Qualifiers: Esophagitis presence: without esophagitis Qualified Code(s): K21.9 - Gastro-esophageal reflux disease without esophagitis (17) Hyperlipidemia: Status: Chronic Code(s): E78.5 - Hyperlipidemia, unspecified Qualifiers: Hyperlipidemia type: unspecified Qualified Code(s): E78.5 - Hyperlipidemia, unspecified Plan 1. Bumex 1 mg p.o. today 2. Potassium chloride 20 mEq every 4 hours x 2 doses DC scheduled to home tomorrow Will resume daily weights at home and take Bumex IF the weight increases by greater than or equal to 3 pounds. Medications at Discharge Home Medications rosuvastatin 5 mg tablet (Crestor) 5 mg PO QDAY cholesterol 07/04/17 metoprolol succinate 25 mg tablet,extended release 24 hr 25 mg PO DAILY AFIB 06/27/21 nitroglycerin 0.4 mg sublingual tablet 0.4 mg sublingual Q5M PRN CP 06/27/21 dofetilide 250 mcg capsule 250 mcg PO Q12H afib 03/29/23 duloxetine 60 mg capsule,delayed release See Rx Instructions PO DAILY mood 03/29/23 empagliflozin 25 mg tablet (Jardiance) 12.5 mg PO DAILY heart 03/29/23 finasteride 5 mg tablet 5 mg PO DAILY bph 03/29/23 levalbuterol HCl 0.63 mg/3 mL solution for nebulization 0.63 mg inhalation TID copd 03/29/23 midodrine 5 mg tablet 5 mg PO 1000,1400,1800 blood pressure 03/29/23 vit C 250 mg-vit E 200 unit-zinc ox 12.5 kp-xnijol-ppncjm-zeax capsule (ICaps AREDS2) 1 cap PO DAILY supplement (more content not included)... [facility] 03-01-2024 Evaluation note Diagnosis Onset Date Resolution Hypothyroidism acute February 132023 7:25pm Acalculous cholecystitis resolved March 01, 2024 7:25pm Debility resolved March 01, 2024 7:25pm Hypokalemia resolved February 7:25pm (HFpEF) heart failure with preserved ejection fraction inactive March 01, 024 7:25pm Anxiety inactive March 01, 2024 7:25pm BPH (benign prostatic hyperplasia) inactive March 01, 024 7:25pm COPD (chronic obstructive pulmonary disease) inactive February 7:25pm Coronary artery disease inactive D ecember 2023 7:25pm Depression inactive March 01, 2024 7:25pm GERD (gastroesophageal reflux disease) inactive March 01 024 7:25pm Grade II diastolic dysfunction inactive March 01 024 7:25pm Hyperlipidemia inactive February 132023 7:25pm Macular degeneration inactive Dece mber 2023 7:25pm Muscle spasm inactive February 7:25pm Orthostatic hypotension inactive D ecember 2023 7:25pm Paroxysmal atrial fibrillation inactive March 01 024 7:25pm Status post cholecystectomy inactive March 01, 024 7:25pm Vitamin D deficiency inactive Dece mber 2023 7:25pm Atrial fibrillation deleted Decem suzi 2023 7:25pm [facility] Work Phone: [phone] [facility] Medical Records Department [address] [place] [address] History Physical Exam 03/01/241946 MR#: [id number] Acct: [id number] Name: HIRAM DORAN Rep #: [id number] : 1940 83 From: Parrish Shah MD PCP: Dr. Malissa Rascon MD Status:ADM IN Location: [place] [address] HPI - General General Date of Admission: 03/01/24 Date of Service: 03/02/24 Chief Complaint: Here for rehabilitation. HPI Narrative HIRAM DORAN, is a 83 Male who presents with followin02/24/2024 Admit to [facility]. 02/24/2024 Dr. Izquierdo performed laparoscopic converted to open cholecystectomy, gallbladder crumbled with black gallstones. 02/25/2024 Pain poorly controlled, passing minimal gas, no bowel movement. Intermittent nausea, no vomiting. Advance to regular diet. PT/OT. 02/26/2024 Surgical site tenderness with movement. Poor appetite. Midodrine PRN low blood pressure. Lovenox for DVT prophylaxis. 02/27/2024 Right side/flank pain, sitting up in chair, pain resolved. No bowel movement yet. Tylenol, Robaxin, Fentanyl, Oxycodone, pain management for pain. Remove ALEXANDER drain. Consider CT A/P if pain persists. Delirium protocol per geriatric consultation. 02/28/2024 RUQ pain worse with movement and cough. Bloated, small liquid bowel movement. Mobility poor. Atrial fibrillation with RVR last night. CT A/P showed large amount of stool. 02/29/2024 Pain improved with Toradol, feeling better. PT/OT SNF. 03/01/2024 Admit to TCU with debility, here for rehabilitation, strengthening, prior to discharge home with . [facility] Medical History Wears hearing aid in both ears Anemia Pancreatitis Former smoker CPAP (continuous positive airway pressure) dependence Sleep apnea On home oxygen therapy Congestive heart failure (CHF) TIA (transient ischemic attack) Pulmonary fibrosis Sinus node dysfunction HFrEF (heart failure with reduced ejection fraction) Chronic diarrhea Retroperitoneal hematoma 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 Obstructive sleep apnea Hyperlipidemia SVT (supraventricular tachycardia) GERD (gastroesophageal reflux disease) COPD (chronic obstructive pulmonary disease) BPH (benign prostatic hyperplasia) Paroxysmal atrial fibrillation Home Medications ???Medication ???Instructions ???Recorded ???Last Taken ???Type rosuvastatin 5 mg tablet (Crestor) 5 mg PO QDAY cholesterol 07/04/17 10/24/23 History cholecalciferol (vitamin D3) 25 5,000 unit PO DAILY supplement 05/22/21 10/24/23 History mcg (1,000 unit) tablet metoprolol succinate 25 mg 25 mg PO DAILY AFIB 06/27/21 12/12/23 History tablet,extended release 24 hr nitroglycerin 0.4 mg sublingual 0.4 mg sublingual Q5M PRN CP 06/27/21 Unknown History tablet dofetilide 250 mcg capsule 250 mcg PO Q12H afib 03/29/23 12/12/23 History duloxetine 60 mg capsule,delayed See Rx Instructions PO DAILY mood 03/29/23 10/24/23 History release empagliflozin 25 mg tablet 12.5 mg PO DAILY heart 03/29/23 10/24/23 History (Jardiance) finasteride 5 mg tablet 5 mg PO DAILY bph 03/29/23 10/24/23 History levalbuterol HCl 0.63 mg/3 mL 0.63 mg inhalation TID copd 03/29/23 10/24/23 History solution for nebulization midodrine 5 mg tablet 5 mg PO 1000,1400,1800 blood 03/29/23 10/24/23 History pressure vit C 250 mg-vit E 200 unit-zinc 1 cap PO DAILY supplement 03/29/23 10/24/23 History ox 12.5 vp-juilih-ogbhwm-zeax capsule (ICaps AREDS2) lorazepam 0.5 mg tablet 0.5 mg PO QHS Anxiety #5 tabs 04/01/23 10/23/23 Rx apixaban 5 mg tablet (Eliquis) 5 mg PO BID BLOOD THINNER #0 tabs 04/10/23 01/11/24 08:00 Rx ezetimibe 10 mg tablet 10 mg PO QHS cholesterol 10/24/23 Unknown History guaifenesin 1,200 mg tablet, 1,200 mg PO BID mucus relief 10/24/23 Unknown History extended release 12 hr (Mucinex) pantoprazole 40 mg tablet,delayed 40 mg PO DAILY GERD 10/24/23 Unknown History release tiotropium 2.5 mcg-olodaterol 2.5 2 inh inhalation DAILY COPD 10/24/23 Unknown History mcg/actuation mist for inhalation (Stiolto Respimat) methocarbamol 750 mg tablet 750 mg PO BID Muscle Relaxer 11/20/23 Unknown History sucralfate 100 mg/mL oral 1 g PO BID antacid 11/20/23 01/15/24 18:00 History suspension (Carafate) Lactobacillus acidophilus, 1 packet PO TIDCM supplement 12/23/23 Unknown History bulgaricus 100 million cell granules packet (Floranex) tamsulosin 0.4 mg capsule 0.8 mg PO DINNER bph 12/23/23 Unknown History bumetanide 0.5 mg tablet 1 mg PO MOWEFR PRN EDEMA 01/15/24 Unknown History mirtazapine 15 mg tablet 7.5 mg (1/2 x 15 mg) PO QHS #0 tabs 01/22/24 Unknown Rx mirtazapine 15 mg tablet 15 mg PO QHS #30 tabs 01/27/24 Unknown Rx acetaminophen 500 mg tablet (more content not included)...[facility]12-16-2024 [facility]12-16-2024 [facility]12-15-2024 [facility]12-15-2024 [facility]12-14-2024 [facility]12-14-2024 Note HNO ID: [id number] Author: NOTE, INTERFACE, ? Service: ? Author Type: ? Type: Progress Notes Filed: 03/03/2024 16:04 Note Text: Epic Scheduled Downtime: 02/27/2024 1:00:00 AM to 02/27/2024 2:52:17 [facility]12-13-2024 [facility]12-13-2024 Note [facility]12-12-2024 [facility] 02-25-2024 [facility]12-11-2024 [facility]12-11-2024 [facility]12-10-2024 Telephone encounter Note* Telephone Encounter - Sue Eastman MA - 02/23/2024 4:01 PM EST Images from the original note were not included. Aleksandra Izquierdo MD You19 hours ago (8:49 PM) Drain output is not concerning. Burning at drain site is also to be expected. Please ensure that the patient is still taking in adequate PO nutrition and hydration. No repeat labs prior to OR weds. Let me know if there are any other concerns after speaking with patient/daughter. Thanks. ADENIKE Patient and informed . Sue Eastman MA [facility]12-10-2024 Miscellaneous Notes* Telephone Encounter - Sue Eastman MA - 02/23/2024 4:01 PM EST Images from the original note were not included. Aleksandra Izquierdo MD You19 hours ago (8:49 PM) Drain output is not concerning. Burning at drain site is also to be expected. Please ensure that the patient is still taking in adequate PO nutrition and hydration. No repeat labs prior to OR weds. Let me know if there are any other concerns after speaking with patient/daughter. Thanks. ADENIKE Patient and informed . Sue Eastman MA * Telephone Encounter - Nellie Garcia MA - 02/05/2024 3:34 PM EST Daughter called to say that she was going to empty her Dad's bag and it was empty. She is concernedas there is usually 50-100 cc of output twice daily. She also noticed his BP is lower than normal about 86/58. He is not showing any signs of infection or fever at this time. I told her to observe him closely, watch for output by early a m. I f there is none, then call the office and the answering service will page the Dr pond scaler. Also, we discussed infection signs and if he becomes febrile or ill come to ED immediately. Nellie Brown [facility] Telephone encounter Note * Telephone Encounter - Ankita Edwards MA - 02/22/2024 9:00 AM EST Lala Serrano, , called. -stated spoke to Dr. Izquierdo over the weekend about lab results. -Pt did not complain much only not eating well. -Dr. Izquierdo told them to keep an eye out with elevated WBCs and liver enzyme -Today, pt c/o nauseated and burning at site (did not mentioned when spoke to Dr. Izquierdo.) -Output yesterday: 325 cc in the AM. Over 500 cc through out the day -Labs (WBCs) at [facility]: 01/15: 10.7; 01/21: 10.5 -Labs recheck prior to surgery on 02/24/24? -Does not want surgery to be cancelled, Please call daughter at the above number. Ankita Edwards MA February 22, 2024 9:06 AM [facility]12-09-2024 Miscellaneous Notes* Telephone Encounter - Ankita Edwards MA - 02/22/2024 9:00 AM EST Lala Serrano, , called. -stated spoke to Dr. Izquierdo over the weekend about lab results. -Pt did not complain much only not eating well. -Dr. Izquierdo told them to keep an eye out with elevated WBCs and liver enzyme -Today, pt c/o nauseated and burning at site (did not mentioned when spoke to Dr. Izquierdo.) -Output yesterday: 325 cc in the AM. Over 500 cc through out the day -Labs (WBCs) at [facility]: 01/15: 10.7; 01/21: 10.5 -Labs recheck prior to surgery on 02/24/24? -Does not want surgery to be cancelled, Please call daughter at the above number. Ankita Edwards MA February 22, 2024 9:06 AM documented in [facility]12-[facility] History of Present illness Narrative* Tiffany Cabrera APRN.SURVEYING OR SPATIAL SCIENCE TECHNICIAN - 02/19/2024 4:13 PM ESTSummary: MARGARET -Consult to anesthesia- due to high risk noted by Dr. Donald (pulmonary) -High risk for postoperative pulmonary complications -Please have anesthesia review note from Dr. Nika Donald on 01/21/2024. Daughter and Dr. Donald went over note. Daughter highlighted parts of note that Dr. Donald wanted anesthesia to be aware of. Highlighted note is in the chart. -Poor dental health. thinks poor dental health caused lung infection. Please be careful not to bump or knock teeth (bottom front)- per daughter. -Cardiac optimization scanned into Epic- 02/12/2024- office of Dr. Kahn -Pulmonary optimization- scanned into Epic 02/17/2024- Dr. Donald. VITALS: BP 99/61 Pulse 82 Temp 98.4 Resp 18 Ht 5' 8 (1.73m) Wt 160 lb (72.6kg) SpO2 94% BMI 24.33 kg/(m^2). History of echocardiogram -Consult to anesthesia- please review echo with anesthesia -12/2023 Echo Impression CONCLUSIONS: - Technically difficult exam due to body habitus. 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 Left ventricular systolic function is normal. EF = 55 5% (visual est.) Definity contrast used for endocardial border detection. Grade II left ventricular diastolic dysfunction. - The right ventricle is normal in size. Right ventricular systolic function is normal. - The left atrial cavity is moderately dilated. - Estimated right ventricular systolic pressure is 68 mmHg consistent with moderately severe pulmonary hypertension. Estimated right atrial pressure is 8 mmHg based on IVC assessment. - The patient has not had a prior CC echocardiographic exam for comparison. Paroxysmal atrial fibrillation (HCC) -03/23/2023- Successful CRYO PVAI ablation with exit block all pulmonary veins -Eliquis 5 mg BID- please follow surgeon's instructions -Tikosyn 250 mcg BID- continue, take morning of surgery -Metoprolol 25 mg daily- continue, take morning of surgery COPD (chronic obstructive pulmonary disease) (HCC) -Pulmicort 0.2mg/2Ml nebulizer daily- continue, please use morning of surgery -Xopenex 0.63mg/ml nebulizer- continue, use morning of surgery -Stiolto Respimat Inhalation 2 puffs daily- continue -Denies symptoms of resp infection at this time -Does not use rescue inhaler -Pulmonary optimization- scanned into [facility] 02/17/2024- Dr. Donald. -Consult to anesthesia- due to high risk noted by Dr. Donald Chronic heart failure with preserved ejection fraction (HCC) -Jardiance 12.5 mg daily- continue, hold 3 days before surgery HLD (hyperlipidemia) -Zetia 10 mg daily- continue -Crestor 5 mg daily- continue -Followed by Dr. Rascon Hypotension -Midodrine 5 mg TID- continue, take morning of surgery -BP 99/61 GERD (gastroesophageal reflux disease) -Protonix 40 mg daily- continue, take morning of surgery -Carafate 1 gram BID- continue -Controlled with medication EKG -10/2023 SINUS RHYTHM WITH PREMATURE ATRIAL COMPLEXES WITH ABERRANT CONDUCTION LEFT AXIS DEVIATION ABNORMAL ECG NO PREVIOUS ECGS AVAILABLE Confirmed by KAR ONEILL MD ([id number]) on 10/29/2023 9:36:26 AM Lung abscess (HCC) -Lung abscess diagnosed 10/2023 -Note reviewed from Leidy CHU from ID 12/22/2023: -10/24 CT chest w LLL cavitary lesion 7 x 3.5 x 7.9 cm suggestive of abscess and emphysematous changes. -Receiving Zosyn prior to admission from 11/21 scheduled to continue through 12/31 -Followed by Dr. Galloway -Repeat CT chest done 12/16 shows 4 cm fluid-filled collection with small cavitary component left lower lobe abutting fissure, improved from 9 cm on 10/2402/09/2024 4:27 PM - Radiology, Oru In Impression IMPRESSION: 1. No acute intrathoracic abnormality is seen. 2. Cavitary lesion of the left lung appears stable compared to prior radiograph. A follow-up chest CT in one to 2 months would be recommended to document further stability or reduction in size. Acalculous cholecystitis -S/p cholecystectomy drain placement 12/13, culture with VRE -Surgical intervention scheduled for 02/24/2024 Former smoker -Former smoker -Quit 30 years ago Coronary artery disease, occlusive -Last heart cath 2021- unable to stent -05/27/2021 LMT nl, LAD mild luminal irregularities, prox 90% L1, moderate LCx, RCA mild to moderatedisease. Unsuccessful PCI Dg1 due to inability to cross wire. Hematoma after cath in RLE. Anemia -02/09/2024: H&H 12.840 Sleep apnea -3L with CPAP - please bring -No oxygen during the day -Pneumo Dec 2023- Gokul -Pneumo after lung biopsy -No oxygen during the day after chest tube was removed (chest tube x2 days) Cavities, tooth -Poor dental health -Bottom teeth. Dr. Izquierdo would like anesthesia to know about teeth. thinks poor dental health caused the lung infection. Please be careful not to bump or knock out teeth. Delcid Activity Status Index: METS: Walk indoors, such as around the house (1.75 METs) DASI Score: 1.75 (Uses a walker. 3L of oxygen at HS with CPAP ) Patient denies any chest pain or undue shortness of breath with the above physical activity Assessment/Plan Acute acalculous cholecystitis [K81.0] - Dr. Izquierdo 02/24/2024 PLAN Planned Procedure: Procedure(s): LAPAROSCOPIC CHOLECYSTECTOMY/ POSSIBLE CHOLOANGIOGRAM/ POSSIBLE OPEN CHOLECYSTEACTOMY (N/A) documented in this encounterBu[facility]12-06-2024 [facility]12-06-[facility] History and physical note* Tiffany Cabrera APRN.CNP - 02/19/2024 1:40 PM ESTSummary: PAT Images from the original note were not included. [facility] HISTORY AND PHYSICAL EXAMINATION SERVICE DATE: 02/19/2024 SERVICE TIME: 1340 PRIMARY CARE PHYSICIAN: Malissa Rascon MD Assessment Patient has the following medical conditions which may affect charisma-operative course: Pre-op exam -Identify any potential anesthesia problems or contraindications to the planned procedure. Paroxysmal atrial fibrillation (HCC) -03/23/2023- Successful CRYO PVAI ablation with exit block all pulmonary veins -Eliquis 5 mg BID- please follow surgeon's instructions -Tikosyn 250 mcg BID- continue, take morning of surgery -Metoprolol 25 mg daily- continue, take morning of surgery COPD (chronic obstructive pulmonary disease) (HCC) -Pulmicort 0.2mg/2Ml nebulizer daily- continue, please use morning of surgery -Xopenex 0.63mg/ml nebulizer- continue, use morning of surgery -Stiolto Respimat Inhalation 2 puffs daily- continue -Denies symptoms of resp infection at this time -Does not use rescue inhaler -Pulmonary optimization- scanned into Epic 02/17/2024- Dr. Donald. -Consult to anesthesia- due to high risk noted by Dr. Donald Chronic heart failure with preserved ejection fraction (HCC) -Jardiance 12.5 mg daily- continue, hold 3 days before surgery HLD (hyperlipidemia) -Zetia 10 mg daily- continue -Crestor 5 mg daily- continue -Followed by Dr. Rascon Hypotension -Midodrine 5 mg TID- continue, take morning of surgery GERD (gastroesophageal reflux disease) -Protonix 40 mg daily- continue, take morning of surgery -Carafate 1 gram BID- continue -Controlled with medication History of echocardiogram -Consult to anesthesia- please review echo with anesthesia -12/2023 Echo Impression CONCLUSIONS: - Technically difficult exam due to body habitus. 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 Left ventricular systolic function is normal. EF = 55 5% (visual est.) Definity contrast used for endocardial border detection. Grade II left ventricular diastolic dysfunction. - The right ventricle is normal in size. Right ventricular systolic function is normal. - The left atrial cavity is moderately dilated. - Estimated right ventricular systolic pressure is 68 mmHg consistent with moderately severe pulmonary hypertension. Estimated right atrial pressure is 8 mmHg based on IVC assessment. - The patient has not had a prior CC echocardiographic exam for comparison. History of EKG -10/2023 SINUS RHYTHM WITH PREMATURE ATRIAL COMPLEXES WITH ABERRANT CONDUCTION LEFT AXIS DEVIATION ABNORMAL ECG NO PREVIOUS ECGS AVAILABLE Confirmed by KAR ONEILL MD ([id number]) on 10/29/2023 9:36:26 AM Lung abscess (HCC) -Lung abscess diagnosed 10/2023 -Note reviewed from Leidy CHU from ID 12/22/2023: -10/24 CT chest w LLL cavitary lesion 7 x 3.5 x 7.9 cm suggestive of abscess and emphysematous changes. -Receiving Zosyn prior to admission from 11/21 scheduled to continue through 12/31 -Followed by Dr. Galloway -Repeat CT chest done 12/16 shows 4 cm fluid-filled collection with small cavitary component left lower lobe abutting fissure, improved from 9 cm on 10/2402/09/2024 4:27 PM - Radiology, Oru In Impression IMPRESSION: 1. No acute intrathoracic abnormality is seen. 2. Cavitary lesion of the left lung appears stable compared to prior radiograph. A follow-up chest CT in one to 2 months would be recommended to document further stability or reduction in size. Acalculous cholecystitis -S/p cholecystectomy drain placement 12/13, culture with VRE -Surgical intervention scheduled for 02/24/2024 Former smoker -Former smoker -Quit 30 years ago Coronary artery disease, occlusive -Last heart cath 2021- unable to stent -05/27/2021 LMT nl, LAD mild luminal irregularities, prox 90% L1, moderate LCx, RCA mild to moderatedisease. Unsuccessful PCI Dg1 due to inability to cross wire. Hematoma after cath in RLE. Anemia -02/09/2024: H&H 12.8/40 Sleep apnea -3L with CPAP - please bring -No oxygen during the day -Pneumo Dec 2023- [place] -Pneumo after lung biopsy -No oxygen during the day after chest tube was removed (chest tube x2 days) Cavities, tooth -Poor dental health -Bottom teeth. Dr. Izquierdo would like anesthesia to know about teeth. thinks poor dental health caused the lung infection. Please be careful not to bump or knock out teeth. Delcid Activity Status Index: METS: Walk indoors, such as around the house (1.75 METs) DASI Score: 1.75 (Uses a walker. 3L of oxygen at HS with CPAP ) Patient denies any chest pain or undue shortness of breath with the above physical activity. Clinical Frailty Scale: 7. Severely frail ARISCAT Score: Age: >80 Preoperative SpO2: 91-95% Respiratory infection in the last month: Yes Preoperative anemia: No Duration of surgery: 2-3 hrs Emergency procedure: No ARISCAT Score: ANESTHESIA FINDINGS: Intubation History: No history of difficult intubation Significant Anesthesia Considerations: none Airway History: No history of difficult airway I - PHYSICAL EVALUATION AIRWAY Patient intubated: No. DENTAL Additional comments: Poor dental health. thinks poor dental health caused the lung infection. Please be careful not to bump or knock teeth (bottom front). . II - ANESTHESIA PLAN Anesthetic Plan: general Beta Megan Monitoring Plan Post Procedure Analgesic Plan Prepared for Surgery: . -Cardiac optimization scanned into [employer]- 02/12/2024- office of Dr. Kahn -Pulmonary optimization- scanned into [employer] 02/17/2024- Dr. Donald -Consult to anesthesia- due to high risk noted by Dr. Donald. CONSULTS: The following consults have been initiated at this time: anesthesia, cardiology and pulmonary. Planned Anesthetic: general The Following Tests/Procedures Have Been Initiated: Orders Placed This Encounter COMP METABOLIC PANEL Standing Status: Future Number of Occurrences: 1 Standing Expiration Date: 05/20/2024 REASON FOR VISIT: Hiram Doran is a 83 year old male who is scheduled for Procedure(s): LAPAROSCOPIC CHOLECYSTECTOMY/ POSSIBLE CHOLOANGIOGRAM/ POSSIBLE OPEN CHOLECYSTEACTOMY (N/A) at the request of Dr. Aleksandra Izquierdo for routine H&P. My final recommendation will be communicated back to the requesting physician by way of shared medical record or letter. Subjective The patient has the following: COVID-19 Immunization Status Covid-19 Vaccine (Series Information) Completed 12/01/2023 Imm Admin: COVID-19 vaccine, age 12+ yr (MODERNA) 04/07/2023 Imm Admin: COVID-19 vaccine, age 12+ yr (MODERNA) 01/06/2022 Imm Admin: COVID-19 vaccine, age 12+ yr, bivalent (VoteIt) Only the first 3 history entries have been loaded, but more history exists. CHIEF COMPLAINT: cholecystitis HPI: 83 year old male reports for PAT. Chief complaint of cholecystitis. Gallo tube placed 12/04/2023. +Culture for VRE. 12/21/2023 Gallo tube exchange due to dislodgement. Followed by ID for lung and abd abscess. 01/26/2024 Cholangiogram- no cholelithiasis, normal opacification of cystic duct and CBD and duodenum. Surgical intervention discussed with Dr. Izquierdo- patient agreed. 01/2024 CT ABD: IMPRESSION: Percutaneous cholecystostomy catheter appears to be in proper position without apparent complications. Otherwise, no acute abnormalities. Details as discussed. The reason for this visit is to perform a comprehensive review of the patient's past medical history, assess their current health status and obtain any additional testing required based on anesthesiaguidelines. We will also identify any potential anesthesia problems or contraindications to the planned procedure. REVIEW OF SYSTEMS: General: Negative for: fever. Neurological: Negative for: headaches, seizures, TIA and strokes. Respiratory: Positive for: COPD, dyspnea (with walking more then around the house. denies at rest.), tobacco use(former) and obstructive sleep apnea. Negative for: asthma, pneumonia within 6 weeks and URI < 2 weeks. Cardiovascular: Positive for: anticoagulation therapy, arrhythmia, atrial fibrillation, CAD, CHF, hyperlipidemia and PVD Negative for: angina, chest pain, DVT/PE, hypertension and recent [place]. GI: See HPI. Positive for: abdominal pain and GERD Negative for: dysphagia, nausea and vomiting. : Positive for: BPH. Negative for: on dialysis, dysuria and urinary tract infection. Endocrine: Negative for: diabetes mellitus and hypothyroidism. Hematology: Positive for: anemia and chronic anti-coagulation/platelet meds. Negative for: factor V Leiden and von Willebrand disease. Oncology: Negative for: CA metastasis. Psych: Positive for: depression. Negative for: anxiety. Musculoskeletal: Positive for: joint pain. Negative for: back pain. Skin: Negative for lesions, rash and itching. Negative for: rash. PAST MEDICAL HISTORY Diagnosis Date Acute acalculous cholecystitis COPD (chronic obstructive pulmonary disease) (HCC) Diverticulosis of colon History of BPH COMANCHE (hard of hearing) HEARING AID Pulmonary HTN (HCC) moderatley severe ECHO 12/2023 Pulmonary hypertension (HCC) Uses walker PAST SURGICAL HISTORY Procedure Laterality Date ABDOMINAL SURGERY HX ABLATION A-FIB BY PVI 2022 COLONOSCOPY SCREENING 2016 SPINE SURGERY HX History reviewed. No pertinent family history. Social History Tobacco Use Smoking status: Former Types: Cigarettes Smokeless tobacco: Never Vaping Use Vaping status: Never Used Substance Use Topics Alcohol use: Never Drug use: Never Prior to Admission medications as of 02/19/24 1336 Medication Sig Last Dose Taking OXYGEN, HOME THERAPY, Inhale as instructed as directed. WITH C PAP mirtazapine (REMERON ORAL) Take 7.5 mg by mouth daily at bedtime. ergocalciferol, vitamin D2, (VITAMIN D2 ORAL) Take by mouth. budesonide (PULMICORT) 0.5 mg/2 mL nebulizer solution Use 0.5 mg via nebulizer once daily. guaiFENesin (MUCINEX) 1,200 mg Ta12 Take by mouth. sucralfate (CARAFATE) 1 gram tablet Take 1 g by mouth four times daily. Lactobacillus Acidoph and Bulgar (FLORANEX) 100 million cell grpk Take 1 Packet by mouth three times a day with meals. sucralfate (CARAFATE) 1 gram tablet Take 1 g by mouth two times a day. apixaban (ELIQUIS) 5 mg tab(s) Take 5 mg by mouth two times a day. pantoprazole DR (PROTONIX) 40 mg tablet Take 40 mg by mouth once daily. midodrine (PROAMITINE) 5 mg tablet Take 5 mg by mouth three times a day. TAKE AT 10AM, 2PM, AND 6PM DULoxetine (CYMBALTA) 60 mg capsule Take 60 mg by mouth once daily. empagliflozin (JARDIANCE) 25 mg tablet Take 12.5 mg by mouth daily with breakfast. Take 1/2 of 25mgtablet. finasteride (PROSCAR) 5 mg tablet Take 5 mg by mouth once daily. dofetilide (TIKOSYN) 250 mcg capsule Take 250 mcg by mouth two times a day. methocarbamol (ROBAXIN) 750 mg tablet Take 750 mg by mouth two times a day. vit C-vit X-Yq-En-lutein-zeax (ICAPS AREDS2, COPPER CITRATE,) 250 mg-200 unit - 12.5 mg-1 mg tab Take 1 capsule by mouth once daily. levalbuterol (XOPENEX) 0.63 mg/3 mL nebulizer solution Use 1 Ampule via nebulizer three times a day. tiotropium Br/olodaterol HCl (STIOLTO RESPIMAT INHALATION) Inhale 2 Puffs as instructed once daily. tamsulosin (FLOMAX) 0.4 mg Take 0.8 mg by mouth once daily. rosuvastatin (CRESTOR) 5 mg tablet Take 5 mg by mouth once daily. ezetimibe (ZETIA) 10 mg tablet Take 10 mg by mouth once daily. metoprolol succinate ER (TOPROL XL) 25 mg 24 hr tablet Take 25 mg by mouth once daily. LORazepam (ATIVAN) 0.5 mg Take by mouth daily at bedtime. nitroglycerin sublingual (NITROQUICK) 0.4 mg SL tablet Dissolve 0.4 mg under the tongue every 5 minutes as needed for chest pain. Patient not taking: Reported on 02/15/2024 acetaminophen (TYLENOL) 325 mg cap Take by mouth. No medication comments found. ALLERGIES Allergen Reactions Clindamycin Hives Terbinafine Hives Tramadol Unknown Objective PHYSICAL EXAM: General: alert and oriented. Skin: normal color, no rash or lesions. HEENT: No additional findings for patient's neck. Cardiovascular: Pulse characterized as irregular.Pertinent negatives noted - no rub and no gallop. Respiratory: Dim post. Abdomen: soft. Gallo tube. Extremities: Pertinent negatives noted - no edema. Neurological: Positive for limb weakness. Uses a walker. Gen wkness. . PAIN ASSESSMENT: Pain Pain Level: 0 VITALS: BP 99/61 Pulse 82 Temp 98.4 Resp 18 Ht 5' 8 (1.73m) Wt 160 lb (72.6kg) SpO2 94% BMI 24.33 kg/(m^2). Diagnostic tests reviewed for today's visit: Lab Value Units Date High Low HB 13.8 g/dL 02/19/2024 17.0 13.0 HCT 43.1 % 02/19/2024 51.0 39.0 WBC 12.72 k/uL 02/19/2024 11.00 3.70 PLT 270 k/uL 02/19/2024 400 150 NA 137 mmol/L 02/19/2024 144 136 K 4.1 mmol/L 02/19/2024 5.1 3.7 GLUC 121 mg/dL 02/19/2024 99 74 BUN 16 mg/dL 02/19/2024 24 9 CREAT 0.80 mg/dL 02/19/2024 1.22 0.73 PTSEC 13.4 sec 12/14/2023 13.0 9.7 INR 1.3 no uni* 12/14/2023 1.3 0.9 APTT No results within date range. ALT 35 U/L 02/19/2024 54 10 AST 24 U/L 02/19/2024 40 14 TBILI 0.4 mg/dL 02/19/2024 1.3 0.2 TSH No results within date range. Lab Value Units Date High Low HCGQT No results within date range. UHCG No results within date range. HCG, BODY* No results within date range. Lab Value Units Date High Low ABORHD No results within date range. ABSCREEN No results within date range. No results found for: HBA1C Recent Results (from the past 8760 hour(s)) ECG COMPLETE Collection Time: 10/28/23 12:58 PM Result Value Ventricular Rate 87 Atrial Rate 87 P-R Interval 146 QRS Duration 80 QT Interval 354 QTC Calculation (Bazett) 425 Calculated P [place] 29 Calculated R [place] -56 Calculated T [place] 37 Impression SINUS RHYTHM WITH PREMATURE ATRIAL COMPLEXES WITH ABERRANT CONDUCTION LEFT AXIS DEVIATION ABNORMAL ECG NO PREVIOUS ECGS AVAILABLE Confirmed by MAI DEAN, KAR ([id number]) on 10/29/2023 9:36:26 AM Recent Results (from the past 25837 hour(s)) ECHO Collection Time: 12/16/23 1:30 PM Impression CONCLUSIONS: - Technically difficult exam due to body habitus. 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 Left ventricular systolic function is normal. EF = 55 5% (visual est.) Definity contrast used for endocardial border detection. Grade II left ventricular diastolic dysfunction. - The right ventricle is normal in size. Right ventricular systolic function is normal. - The left atrial cavity is moderately dilated. - Estimated right ventricular systolic pressure is 68 mmHg consistent with moderately severe pulmonary hypertension. Estimated right atrial pressure is 8 mmHg based on IVC assessment. - The patient has not had a prior [facility] echocardiographic exam for comparison. * * * Final * * * Instructions Given to Patient: Instructions located in the after visit summary. Patient given verbal and written preop instructions and voices comprehension and compliance. Implantable Devices: gallo tube The Following Tests/Procedures Have Been Initiated: -Hibiclens given to patient -Labs from Dr. Bain- CBC and CMP -Cardiac optimization scanned into [facility]- 02/12/2024- office of Dr. Kahn -Pulmonary optimization- scanned into [facility] 02/17/2024- Dr. Donald. -Consult to anesthesia- due to high risk noted by Dr. Donald -Please have anesthesia review note from Dr. Nika Donald on 01/21/2024. Daughter and Dr. Donald went over note. Daughter highlighted parts of note that Dr. Donald wanted anesthesia to be aware of. Highlighted note is in the chart. -Poor dental health. thinks poor dental health caused lung infection. Please be careful not to bump or knock teeth (bottom front). Assessment/Plan Acute acalculous cholecystitis [K81.0] PLAN Planned Procedure: Procedure(s): LAPAROSCOPIC CHOLECYSTECTOMY/ POSSIBLE CHOLOANGIOGRAM/ POSSIBLE OPEN CHOLECYSTEACTOMY (N/A) I spent a total of 40 minutes on the date of the service which included preparing to see the patient, [id number] patient care, and completing clinical documentation. SIGNATURE: Tiffany Cabrera APRN.CNP PATIENT NAME: Hiram Doran DATE: February 19, 2024 TIME: 3:30 PM PAGER/CONTACT #: [facility]12-06-2024 History and physical note* Tiffany Cabrera APRN.CNP - 02/19/2024 1:40 PM ESTSumdomingoy: PAT Images from the original note were not included. [facility] HISTORY AND PHYSICAL EXAMINATION SERVICE DATE: 02/19/2024 SERVICE TIME: 1340 PRIMARY CARE PHYSICIAN: Malissa Rascon MD Assessment Patient has the following medical conditions which may affect charisma-operative course: Pre-op exam -Identify any potential anesthesia problems or contraindications to the planned procedure. Paroxysmal atrial fibrillation (HCC) -03/23/2023- Successful CRYO PVAI ablation with exit block all pulmonary veins -Eliquis 5 mg BID- please follow surgeon's instructions -Tikosyn 250 mcg BID- continue, take morning of surgery -Metoprolol 25 mg daily- continue, take morning of surgery COPD (chronic obstructive pulmonary disease) (HCC) -Pulmicort 0.2mg/2Ml nebulizer daily- continue, please use morning of surgery -Xopenex 0.63mg/ml nebulizer- continue, use morning of surgery -Stiolto Respimat Inhalation 2 puffs daily- continue -Denies symptoms of resp infection at this time -Does not use rescue inhaler -Pulmonary optimization- scanned into [facility] 02/17/2024- Dr. Donald. -Consult to anesthesia- due to high risk noted by Dr. Donald Chronic heart failure with preserved ejection fraction (HCC) -Jardiance 12.5 mg daily- continue, hold 3 days before surgery HLD (hyperlipidemia) -Zetia 10 mg daily- continue -Crestor 5 mg daily- continue -Followed by Dr. Rascon Hypotension -Midodrine 5 mg TID- continue, take morning of surgery GERD (gastroesophageal reflux disease) -Protonix 40 mg daily- continue, take morning of surgery -Carafate 1 gram BID- continue -Controlled with medication History of echocardiogram -Consult to anesthesia- please review echo with anesthesia -12/2023 Echo Impression CONCLUSIONS: - Technically difficult exam due to body habitus. 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 Left ventricular systolic function is normal. EF = 55 5% (visual est.) Definity contrast used for endocardial border detection. Grade II left ventricular diastolic dysfunction. - The right ventricle is normal in size. Right ventricular systolic function is normal. - The left atrial cavity is moderately dilated. - Estimated right ventricular systolic pressure is 68 mmHg consistent with moderately severe pulmonary hypertension. Estimated right atrial pressure is 8 mmHg based on IVC assessment. - The patient has not had a prior [facility] echocardiographic exam for comparison. History of EKG -10/2023 SINUS RHYTHM WITH PREMATURE ATRIAL COMPLEXES WITH ABERRANT CONDUCTION LEFT AXIS DEVIATION ABNORMAL ECG NO PREVIOUS ECGS AVAILABLE Confirmed by KAR ONEILL MD ([id number]) on 10/29/2023 9:36:26 AM Lung abscess (HCC) -Lung abscess diagnosed 10/2023 -Note reviewed from Leidy CHU from ID 12/22/2023: -10/24 CT chest w LLL cavitary lesion 7 x 3.5 x 7.9 cm suggestive of abscess and emphysematous changes. -Receiving Zosyn prior to admission from 11/21 scheduled to continue through 12/31 -Followed by Dr. Galloway -Repeat CT chest done 12/16 shows 4 cm fluid-filled collection with small cavitary component left lower lobe abutting fissure, improved from 9 cm on 10/2402/09/2024 4:27 PM - Radiology, [place] In Impression IMPRESSION: 1. No acute intrathoracic abnormality is seen. 2. Cavitary lesion of the left lung appears stable compared to prior radiograph. A follow-up chest CT in one to 2 months would be recommended to document further stability or reduction in size. Acalculous cholecystitis -S/p cholecystectomy drain placement 12/13, culture with VRE -Surgical intervention scheduled for 02/24/2024 Former smoker -Former smoker -Quit 30 years ago Coronary artery disease, occlusive -Last heart cath 2021- unable to stent -05/27/2021 LMT nl, LAD mild luminal irregularities, prox 90% L1, moderate LCx, RCA mild to moderatedisease. Unsuccessful PCI Dg1 due to inability to cross wire. Hematoma after cath in RLE. Anemia -02/09/2024: H&H 12.8/40 Sleep apnea -3L with CPAP - please bring -No oxygen during the day -Pneumo Dec 2023- [facility] -Pneumo after lung biopsy -No oxygen during the day after chest tube was removed (chest tube x2 days) Cavities, tooth -Poor dental health -Bottom teeth. Dr. Izquierdo would like anesthesia to know about teeth. thinks poor dental health caused the lung infection. Please be careful not to bump or knock out teeth. Delcid Activity Status Index: METS: Walk indoors, such as around the house (1.75 METs) DASI Score: 1.75 (Uses a walker. 3L of oxygen at HS with CPAP ) Patient denies any chest pain or undue shortness of breath with the above physical activity. Clinical Frailty Scale: 7. Severely frail ARISCAT Score: Age: >80 Preoperative SpO2: 91-95% Respiratory infection in the last month: Yes Preoperative anemia: No Duration of surgery: 2-3 hrs Emergency procedure: No ARISCAT Score: ANESTHESIA FINDINGS: Intubation History: No history of difficult intubation Significant Anesthesia Considerations: none Airway History: No history of difficult airway I - PHYSICAL EVALUATION AIRWAY Patient intubated: No. DENTAL Additional comments: Poor dental health. thinks poor dental health caused the lung infection. Please be careful not to bump or knock teeth (bottom front). . II - ANESTHESIA PLAN Anesthetic Plan: general Beta Megan Monitoring Plan Post Procedure Analgesic Plan Prepared for Surgery: . -Cardiac optimization scanned into [facility]- 02/12/2024- office of Dr. Kahn -Pulmonary optimization- scanned into [facility] 02/17/2024- Dr. Donald -Consult to anesthesia- due to high risk noted by Dr. Donald. CONSULTS: The following consults have been initiated at this time: anesthesia, cardiology and pulmonary. Planned Anesthetic: general The Following Tests/Procedures Have Been Initiated: Orders Placed This Encounter COMP METABOLIC PANEL Standing Status: Future Number of Occurrences: 1 Standing Expiration Date: 05/20/2024 REASON FOR VISIT: Hiram Doran is a 83 year old male who is scheduled for Procedure(s): LAPAROSCOPIC CHOLECYSTECTOMY/ POSSIBLE CHOLOANGIOGRAM/ POSSIBLE OPEN CHOLECYSTEACTOMY (N/A) at the request of Dr. Aleksandra Izquierdo for routine H&P. My final recommendation will be communicated back to the requesting physician by way of shared medical record or letter. Subjective The patient has the following: COVID-19 Immunization Status Covid-19 Vaccine (Series Information) Completed 12/01/2023 Imm Admin: COVID-19 vaccine, age 12+ yr (MODERNA) 04/07/2023 Imm Admin: COVID-19 vaccine, age 12+ yr (MODERNA) 01/06/2022 Imm Admin: COVID-19 vaccine, age 12+ yr, bivalent (VoteIt) Only the first 3 history entries have been loaded, but more history exists. CHIEF COMPLAINT: cholecystitis HPI: 83 year old male reports for PAT. Chief complaint of cholecystitis. Gallo tube placed 12/04/2023. +Culture for VRE. 12/21/2023 Gallo tube exchange due to dislodgement. Followed by ID for lung and abd abscess. 01/26/2024 Cholangiogram- no cholelithiasis, normal opacification of cystic duct and CBD and duodenum. Surgical intervention discussed with Dr. Izquierdo- patient agreed. 01/2024 CT ABD: IMPRESSION: Percutaneous cholecystostomy catheter appears to be in proper position without apparent complications. Otherwise, no acute abnormalities. Details as discussed. The reason for this visit is to perform a comprehensive review of the patient's past medical history, assess their current health status and obtain any additional testing required based on anesthesiaguidelines. We will also identify any potential anesthesia problems or contraindications to the planned procedure. REVIEW OF SYSTEMS: General: Negative for: fever. Neurological: Negative for: headaches, seizures, TIA and strokes. Respiratory: Positive for: COPD, dyspnea (with walking more then around the house. denies at rest.), tobacco use(former) and obstructive sleep apnea. Negative for: asthma, pneumonia within 6 weeks and URI < 2 weeks. Cardiovascular: Positive for: anticoagulation therapy, arrhythmia, atrial fibrillation, CAD, CHF, hyperlipidemia and PVD Negative for: angina, chest pain, DVT/PE, hypertension and recent [place]. GI: See HPI. Positive for: abdominal pain and GERD Negative for: dysphagia, nausea and vomiting. : Positive for: BPH. Negative for: on dialysis, dysuria and urinary tract infection. Endocrine: Negative for: diabetes mellitus and hypothyroidism. Hematology: Positive for: anemia and chronic anti-coagulation/platelet meds. Negative for: factor V Leiden and von Willebrand disease. Oncology: Negative for: CA metastasis. Psych: Positive for: depression. Negative for: anxiety. Musculoskeletal: Positive for: joint pain. Negative for: back pain. Skin: Negative for lesions, rash and itching. Negative for: rash. PAST MEDICAL HISTORY Diagnosis Date Acute acalculous cholecystitis COPD (chronic obstructive pulmonary disease) (HCC) Diverticulosis of colon History of BPH COMANCHE (hard of hearing) HEARING AID Pulmonary HTN (HCC) moderatley severe ECHO 12/2023 Pulmonary hypertension (HCC) Uses walker PAST SURGICAL HISTORY Procedure Laterality Date ABDOMINAL SURGERY HX ABLATION A-FIB BY PVI 2022 COLONOSCOPY SCREENING 2016 SPINE SURGERY HX History reviewed. No pertinent family history. Social History Tobacco Use Smoking status: Former Types: Cigarettes Smokeless tobacco: Never Vaping Use Vaping status: Never Used Substance Use Topics Alcohol use: Never Drug use: Never Prior to Admission medications as of 02/19/24 1336 Medication Sig Last Dose Taking OXYGEN, HOME THERAPY, Inhale as instructed as directed. WITH C PAP mirtazapine (REMERON ORAL) Take 7.5 mg by mouth daily at bedtime. ergocalciferol, vitamin D2, (VITAMIN D2 ORAL) Take by mouth. budesonide (PULMICORT) 0.5 mg/2 mL nebulizer solution Use 0.5 mg via nebulizer once daily. guaiFENesin (MUCINEX) 1,200 mg Ta12 Take by mouth. sucralfate (CARAFATE) 1 gram tablet Take 1 g by mouth four times daily. Lactobacillus Acidoph and Bulgar (FLORANEX) 100 million cell grpk Take 1 Packet by mouth three times a day with meals. sucralfate (CARAFATE) 1 gram tablet Take 1 g by mouth two times a day. apixaban (ELIQUIS) 5 mg tab(s) Take 5 mg by mouth two times a day. pantoprazole DR (PROTONIX) 40 mg tablet Take 40 mg by mouth once daily. midodrine (PROAMITINE) 5 mg tablet Take 5 mg by mouth three times a day. TAKE AT 10AM, 2PM, AND 6PM DULoxetine (CYMBALTA) 60 mg capsule Take 60 mg by mouth once daily. empagliflozin (JARDIANCE) 25 mg tablet Take 12.5 mg by mouth daily with breakfast. Take 1/2 of 25mgtablet. finasteride (PROSCAR) 5 mg tablet Take 5 mg by mouth once daily. dofetilide (TIKOSYN) 250 mcg capsule Take 250 mcg by mouth two times a day. methocarbamol (ROBAXIN) 750 mg tablet Take 750 mg by mouth two times a day. vit C-vit Z-Hi-Zh-lutein-zeax (ICAPS AREDS2, COPPER CITRATE,) 250 mg-200 unit - 12.5 mg-1 mg tab Take 1 capsule by mouth once daily. levalbuterol (XOPENEX) 0.63 mg/3 mL nebulizer solution Use 1 Ampule via nebulizer three times a day. tiotropium Br/olodaterol HCl (STIOLTO RESPIMAT INHALATION) Inhale 2 Puffs as instructed once daily. tamsulosin (FLOMAX) 0.4 mg Take 0.8 mg by mouth once daily. rosuvastatin (CRESTOR) 5 mg tablet Take 5 mg by mouth once daily. ezetimibe (ZETIA) 10 mg tablet Take 10 mg by mouth once daily. metoprolol succinate ER (TOPROL XL) 25 mg 24 hr tablet Take 25 mg by mouth once daily. LORazepam (ATIVAN) 0.5 mg Take by mouth daily at bedtime. nitroglycerin sublingual (NITROQUICK) 0.4 mg SL tablet Dissolve 0.4 mg under the tongue every 5 minutes as needed for chest pain. Patient not taking: Reported on 02/15/2024 acetaminophen (TYLENOL) 325 mg cap Take by mouth. No medication comments found. ALLERGIES Allergen Reactions Clindamycin Hives Terbinafine Hives Tramadol Unknown Objective PHYSICAL EXAM: General: alert and oriented. Skin: normal color, no rash or lesions. HEENT: No additional findings for patient's neck. Cardiovascular: Pulse characterized as irregular.Pertinent negatives noted - no rub and no gallop. Respiratory: Dim post. Abdomen: soft. Gallo tube. Extremities: Pertinent negatives noted - no edema. Neurological: Positive for limb weakness. Uses a walker. Gen wkness. . PAIN ASSESSMENT: Pain Pain Level: 0 VITALS: BP 99/61 Pulse 82 Temp 98.4 Resp 18 Ht 5' 8 (1.73m) Wt 160 lb (72.6kg) SpO2 94% BMI 24.33 kg/(m^2). Diagnostic tests reviewed for today's visit: Lab Value Units Date High Low HB 13.8 g/dL 02/19/2024 17.0 13.0 HCT 43.1 % 02/19/2024 51.0 39.0 WBC 12.72 k/uL 02/19/2024 11.00 3.70 PLT 270 k/uL 02/19/2024 400 150 NA 137 mmol/L 02/19/2024 144 136 K 4.1 mmol/L 02/19/2024 5.1 3.7 GLUC 121 mg/dL 02/19/2024 99 74 BUN 16 mg/dL 02/19/2024 24 9 CREAT 0.80 mg/dL 02/19/2024 1.22 0.73 PTSEC 13.4 sec 12/14/2023 13.0 9.7 INR 1.3 no uni* 12/14/2023 1.3 0.9 APTT No results within date range. ALT 35 U/L 02/19/2024 54 10 AST 24 U/L 02/19/2024 40 14 TBILI 0.4 mg/dL 02/19/2024 1.3 0.2 TSH No results within date range. Lab Value Units Date High Low HCGQT No results within date range. UHCG No results within date range. HCG, BODY* No results within date range. Lab Value Units Date High Low ABORHD No results within date range. ABSCREEN No results within date range. No results found for: HBA1C Recent Results (from the past 8760 hour(s)) ECG COMPLETE Collection Time: 10/28/23 12:58 PM Result Value Ventricular Rate 87 Atrial Rate 87 P-R Interval 146 QRS Duration 80 QT Interval 354 QTC Calculation (Bazett) 425 Calculated P [place] 29 Calculated R [place] -56 Calculated T [place] 37 Impression SINUS RHYTHM WITH PREMATURE ATRIAL COMPLEXES WITH ABERRANT CONDUCTION LEFT AXIS DEVIATION ABNORMAL ECG NO PREVIOUS ECGS AVAILABLE Confirmed by PRAMOD ONEILL MDITYA ([id number]) on 10/29/2023 9:36:26 AM Recent Results (from the past 50479 hour(s)) ECHO Collection Time: 12/16/23 1:30 PM Impression CONCLUSIONS: - Technically difficult exam due to body habitus. 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 Left ventricular systolic function is normal. EF = 55 5% (visual est.) Definity contrast used for endocardial border detection. Grade II left ventricular diastolic dysfunction. - The right ventricle is normal in size. Right ventricular systolic function is normal. - The left atrial cavity is moderately dilated. - Estimated right ventricular systolic pressure is 68 mmHg consistent with moderately severe pulmonary hypertension. Estimated right atrial pressure is 8 mmHg based on IVC assessment. - The patient has not had a prior [facility] echocardiographic exam for comparison. * * * Final * * * Instructions Given to Patient: Instructions located in the after visit summary. Patient given verbal and written preop instructions and voices comprehension and compliance. Implantable Devices: gallo tube The Following Tests/Procedures Have Been Initiated: -Hibiclens given to patient -Labs from Dr. Bain- CBC and CMP -Cardiac optimization scanned into [facility]- 02/12/2024- office of Dr. Kahn -Pulmonary optimization- scanned into [facility] 02/17/2024- Dr. Donald. -Consult to anesthesia- due to high risk noted by Dr. Donald -Please have anesthesia review note from Dr. Nika Donald on 01/21/2024. Daughter and Dr. Donald went over note. Daughter highlighted parts of note that Dr. Donald wanted anesthesia to be aware of. Highlighted note is in the chart. -Poor dental health. thinks poor dental health caused lung infection. Please be careful not to bump or knock teeth (bottom front). Assessment/Plan Acute acalculous cholecystitis [K81.0] PLAN Planned Procedure: Procedure(s): LAPAROSCOPIC CHOLECYSTECTOMY/ POSSIBLE CHOLOANGIOGRAM/ POSSIBLE OPEN CHOLECYSTEACTOMY (N/A) I spent a total of 40 minutes on the date of the service which included preparing to see the patient, [id number] patient care, and completing clinical documentation. SIGNATURE: Tiffany Cabrera APRN.CNP PATIENT NAME: Hiram Doran DATE: February 19, 2024 TIME: 3:30 PM [facility]AGER/CONTACT #[facility] Inst[facility]* Patient Instructions* Tiffany Cabrera APRN.CNP - 02/16/2024 2:57 PM EST PATIENT PREOPERATIVE INSTRUCTIONS Aleksandra Izquierdo MD has scheduled you for your procedure at this surgery center: [facility]: [phone], [address] [address] Please read below carefully for your personalized instructions. Date of Surgery: 02/24/2024 Arrival Time for Surgery: Your surgeon's office will provide you with your arrival time for surgery if they have not done so already. If you do not have your arrival time for surgery by the afternoon the day before your surgery you can call the surgeon's office. If you are scheduled for a Thursday surgery you can call the Thursday before. -Please be aware that emergency situations arise, which may delay or change your surgical time. If this happens, your surgeon's office will notify you as soon as possible and regret any inconvenience. Dietary Restrictions: - No solid food after midnight. - Between midnight and four hours prior to your surgery time, you may have 12 ounces of clear liquids (water, apple juice, carbonated beverages, Gatorade, black coffee or tea) unless your surgeon specifies otherwise Blood pressure medications See med list for instructions Take beta megan day of surgery Do not take LANA or ARB medications day of surgery Weight loss medications Sympathomimetics such as Adipex-P (Phentermine): Stop 4 days before surgery. Contrave (Naltrexone/Bupropion) Hold 2-3 days. Qsymia (Phentermine/Topiramate - Please contact your prescribing provider for Pre op directions. ( depending on the patients dose this medication may need tapered off. They should get pre op directions from their prescribing provider.) GLP-1 Agonists (oral and injectables) Hold 7 days. Blood Thinning Medications: - Stop NSAIDS (Ibuprofen, Advil, Aleve, Motrin, Celebrex, Mobic, etc.) 7 days before surgery, as directed by your surgeon. - You may take Tylenol (Acetaminophen) or any of your current prescribed pain medications that do not contain aspirin or NSAIDS as needed. - If you take any of the following blood thinners, please contact your surgeon and the physician who prescribes it for you in order to get perioperative instructions as soon as possible Blood thinners: Aspirin,Coumadin, Plavix, Eliquis, Pradaxa, Xarelto, Lovenox, Brilinta, Effient, Savaysa, etc. Supplements - Stop Vitamin E, fish oil, Ginko, Gustine's Wort, flax seed oil, multivitamins, CBD oil, marijuana and other over the counter herbals and dietary supplements 7 days before surgery. This would not apply to cancer patients who are prescribed Marinol or any other prescription form of marijuana or CBD. If you are taking Phentermine please hold 4 days prior to surgery. Diabetes Medications Preoperative Instructions for Patients with Diabetes Mellitus: Please follow up with the provider that manages your diabetes and how to prepare you for surgery. Do not take the morning of surgery; Metformin, Actos/Pioglitazone and Amaryl/Glimepiride, Linagliptin ( Tradjenta) For the following Medications, please HOLD 2 DAYS PRIOR TO SURGERY: Glucotrol/Glipizide, Januvia/Sitagliptin, Glyburide, Prandin/Repaglinide, Starlix/Nateglinide, Symlin/Pramlintide, Kazano ( Alogliptin/Metformin) For the following Medications, please HOLD 3 DAYS PRIOR TO SURGERY: Canagliflozin/Invokana, Dapagliflozin/Farxiga ,Empagliflozin/Jardiance, Invokamet/canagliflozin and metformin, Xigduo XR/ dapagliglozin and metformin, Glyxambi/ empagliflozin and metformin, Syndardy/ empagliflozin and metformin For the following Medications, please HOLD 4 DAYS PRIOR TO SURGERY: Ertugliflozin/Steglatro For the following Medications, please HOLD 7 DAYS PRIOR TO SURGERY: GLP-1 AGONIST: Adlyxin (lixisenatide), Bydureon BCise (exenatide suspension), Byetta (exenatide), Mounjaro (tirzepatide), Ozempic(semaglutide injection) Tanzeum (albiglutide), Trulicity (dulaglutide), Victoza (liraglutide), Wegovy ( semaglutide), Saxenda (liraglutide),Xultophy (degludec/liraglutide) . Oral form- Rybelsus (semaglutide tablets) Insulin Medication Instructions: Please follow up with the provider that manages your Insulin and how to prepare you for surgery. It is recommended ALL Pre-Op patients and Endoscopy patients hold all GLP-1 agonists for 7 days prior to surgery. Pain medications Approved pain medications can be taken the morning of surgery with a sip of water. Erectile dysfunction medications If you take any medications for erectile dysfunction-Cialis (Tadalafil), Levitra, Staxyn (Vardenafil) Viagra (Sildenenafil please do not take these for 48 hours before surgery. If you start any new medications after today's visit, please contact the surgeon's office. Important Reminders: - If you use CPAP/BIPAP, bring the machine with you to the hospital if you are scheduled to stay over night. - If you are prescribed inhalers for breathing, continue using them AND bring them to the surgery center. - Candy, mints, gum and tobacco products are NOT permitted the morning of surgery. - Hearing aids, dentures and glasses may be worn the morning of surgery. - NO jewelry, body piercings, makeup, hairpins or contacts are to be worn the day of surgery. - NO lotion, creams, powders or deodorants on the skin the day of surgery - You will need to have someone else (Family or friend) drive you home once discharged from the hospital. You cannot take a cab or Uber. You are not allowed to drive yourself home after surgery. -You will need an adult(over the age of 18) to stay with you for the first 24 hours post surgery oryour surgery may be cancelled. Please speak with your surgeon if this is an issue. -Surgical scrub given day of PST. If you develop symptoms such as a fever, cold, or flu, or have other changes to your health within TWO DAYS of scheduled surgery or the morning of surgery, please contact the surgery center above. Personal Belongings: - Leave ALL valuables and money at home or with family members. - You will need a form of ID and insurance card to check in the morning of surgery. - You will have to wear a hospital gown during your stay but if you wish to bring undergarments forafter surgery you may. -If you do not have a copy of advance directives on file with us, please bring a copy with you on the day of surgery. If you already have an Advance Directive, please fax a copy to [phone] or email to for it to be added to your chart. If you do not have an Advance Directive, you can find the appropriate form and more information at [email or web address]. We recommend that youcomplete the Advance Directive form found on the website and bring it with you the day of your surgery. It can be witnessed and scanned into your chart that day. Please note-you should have a 72-hour period between getting your vaccine and date of surgery - If you have a stimulator, implant or pump that requires a remote please bring the remote with youday of surgery Tiffany Cabrera APRN.SURVEYING OR SPATIAL SCIENCE TECHNICIAN Current Outpatient Medications on File Prior to Visit Medication Sig mirtazapine (REMERON ORAL) Take 7.5 mg by mouth daily at bedtime. Continue ergocalciferol, vitamin D2, (VITAMIN D2 ORAL) Take by mouth. Continue budesonide (PULMICORT) 0.5 mg/2 mL nebulizer solution Use 0.5 mg via nebulizer once daily. Continue- please use morning of surgery guaiFENesin (MUCINEX) 1,200 mg Ta12 Take by mouth. Continue sucralfate (CARAFATE) 1 gram tablet Take 1 g by mouth four times daily. Continue Lactobacillus Acidoph and Bulgar (FLORANEX) 100 million cell grpk Take 1 Packet by mouth three times a day with meals. Hold 7 days before surgery sucralfate (CARAFATE) 1 gram tablet Take 1 g by mouth two times a day. Continue apixaban (ELIQUIS) 5 mg tab(s) Take 5 mg by mouth two times a day. Please follow surgeon's instructions pantoprazole DR (PROTONIX) 40 mg tablet Take 40 mg by mouth once daily. Continue- take morning of surgery midodrine (PROAMITINE) 5 mg tablet Take 5 mg by mouth three times a day. TAKE AT 10AM, 2PM, AND 6PMContinue DULoxetine (CYMBALTA) 60 mg capsule Take 60 mg by mouth once daily. Continue empagliflozin (JARDIANCE) 25 mg tablet Take 12.5 mg by mouth daily with breakfast. Take 1/2 of 25mgtablet. Hold 3 days before surgery finasteride (PROSCAR) 5 mg tablet Take 5 mg by mouth once daily. Continue- take morning of surgery dofetilide (TIKOSYN) 250 mcg capsule Take 250 mcg by mouth two times a day. Continue- take morning of surgery methocarbamol (ROBAXIN) 750 mg tablet Take 750 mg by mouth two times a day. Continue vit C-vit I-Fw-Gl-lutein-zeax (ICAPS AREDS2, COPPER CITRATE,) 250 mg-200 unit - 12.5 mg-1 mg tab Take 1 capsule by mouth once daily. Hold 7 days before surgery levalbuterol (XOPENEX) 0.63 mg/3 mL nebulizer solution Use 1 Ampule via nebulizer three times a day. Continue- use morning of surgery tiotropium Br/olodaterol HCl (STIOLTO RESPIMAT INHALATION) Inhale 2 Puffs as instructed once daily.Continue- use and bring morning of surgery tamsulosin (FLOMAX) 0.4 mg Take 0.8 mg by mouth once daily. Continue rosuvastatin (CRESTOR) 5 mg tablet Take 5 mg by mouth once daily. Continue ezetimibe (ZETIA) 10 mg tablet Take 10 mg by mouth once daily. Continue metoprolol succinate ER (TOPROL XL) 25 mg 24 hr tablet Take 25 mg by mouth once daily. Continue- take morning of surgery LORazepam (ATIVAN) 0.5 mg Take by mouth daily at bedtime. Continue nitroglycerin sublingual (NITROQUICK) 0.4 mg SL tablet Dissolve 0.4 mg under the tongue every 5 minutes as needed for chest pain. (Patient not taking: Reported on 02/15/2024) Continue acetaminophen (TYLENOL) 325 mg cap Take by mouth. Continue No current facility-administered medications on file prior to visit. [facility] History of Present illness Narrative* Vadim Mobley APRN.CNP - 02/15/2024 2:45 PM EST Patient referred by: Aleksandra Izquierdo [address] [place] [address] Evaluation of tube HPI: Mr. Hiram Doran is 83-year-old male with history of atrial fibrillation and lung abscess. Hospitalized 12/12 to 12/22 where EGS was consulted for acalculous cholecystitis. Due to advanced age andseverity of illness general surgery recommended cholecystostomy tube placement on 12/13 Cx with VRE.On 12/20, underwent a gallo tube exchange due to dislodgement. Patient was followed by ID for VRE bacteremia / lung and intraabdominal abscess for which completed antimicrobial therapy 01/12. Patient underwent a tube cholangiogram on .24 at [facility] > found no cholelithiasis No choledocholithiasis. Normal opacification of cystic duct and CBD and duodenum. Interval History 02/02: Follow up office visit with Dr Izquierdo for delayed cholecystectomy planning. Noted patient report of increase RUQ abdominal pain. 02/08: call to General Surgery office Reports a change in gallo drain output from 250/day to 500/day. There is now a foul odor, color change seems to be more dark green. Patient having mid/right side back pain. Vital signs past 2 days have shown BP 92/50, his Midodrine was given, and HR 100. Also having some confusion and weakness. Denies any N/V, fevers, chills, CP, SOB. Advised patient and daughter to have patient be evaluated in in the emergency room. Agreeable to this and will go to [facility]. ED Visit CT scan abdomen pelvis showing proper location of the percutaneous gallo tube. WBC 11 Clinical Course: Discussed with Dr. Paris from surgery who stated that patient was safe to follow-up as an outpatient next Thursday at around 3:30 PM there is likely an opening in surgery clinic. Patient was discharged home from ED. At 1921 - patient's daughter sent a message to Dr. Izquierdo with concern of patient being off and foul smelling bile drain. Noted tentative schedule for elective cholecystectomy on 02/[address] Izquierdo. Today, Mr. Hiram Doran presents to EGS clinic with his daughter Lala. They just completed a Sx optimization evaluation. Mr. Doran denies any acute pain, nausea/vomiting, malaise, fever or chills.His Gallo tube with bilious drain w/o any purulent. Daughter reports large amount of foul smelling greenish drainage last week prior to ED visit but has not been noticing foul drainage since. Mr. Doran does admit to occasional lower back pain. He is eating ok, bowel is functioning well. He denies chesty pain or shortness of breath. He can't wait to have his gallbladder removed. PAST MEDICAL HISTORY Diagnosis Date Chronic obstructive pulmonary disease (COPD) (HCC) Pulmonary hypertension (HCC) No past surgical history on file. No family history on file. Social History Tobacco Use Smoking status: Former Types: Cigarettes Smokeless tobacco: Never Vaping Use Vaping status: Never Used Substance Use Topics Alcohol use: Never Drug use: Never Current Outpatient Medications Medication Sig ergocalciferol, vitamin D2, (VITAMIN D2 ORAL) Take by mouth. budesonide (PULMICORT) 0.5 mg/2 mL nebulizer solution Use 0.5 mg via nebulizer once daily. guaiFENesin (MUCINEX) 1,200 mg Ta12 Take by mouth. sucralfate (CARAFATE) 1 gram tablet Take 1 g by mouth four times daily. Lactobacillus Acidoph and Bulgar (FLORANEX) 100 million cell grpk Take 1 Packet by mouth three times a day with meals. sucralfate (CARAFATE) 1 gram tablet Take 1 g by mouth two times a day. apixaban (ELIQUIS) 5 mg tab(s) Take 5 mg by mouth two times a day. pantoprazole DR (PROTONIX) 40 mg tablet Take 40 mg by mouth once daily. midodrine (PROAMITINE) 5 mg tablet Take 5 mg by mouth three times a day. TAKE AT 10AM, 2PM, AND 6PM DULoxetine (CYMBALTA) 60 mg capsule Take 60 mg by mouth once daily. empagliflozin (JARDIANCE) 25 mg tablet Take 12.5 mg by mouth daily with breakfast. Take 1/2 of 25mgtablet. finasteride (PROSCAR) 5 mg tablet Take 5 mg by mouth once daily. dofetilide (TIKOSYN) 250 mcg capsule Take 250 mcg by mouth two times a day. methocarbamol (ROBAXIN) 750 mg tablet Take 750 mg by mouth two times a day. vit C-vit R-Qy-Mo-lutein-zeax (ICAPS AREDS2, COPPER CITRATE,) 250 mg-200 unit - 12.5 mg-1 mg tab Take 1 capsule by mouth once daily. levalbuterol (XOPENEX) 0.63 mg/3 mL nebulizer solution Use 1 Ampule via nebulizer three times a day. tiotropium Br/olodaterol HCl (STIOLTO RESPIMAT INHALATION) Inhale 2 Puffs as instructed once daily. tamsulosin (FLOMAX) 0.4 mg Take 0.8 mg by mouth once daily. rosuvastatin (CRESTOR) 5 mg tablet Take 5 mg by mouth once daily. ezetimibe (ZETIA) 10 mg tablet Take 10 mg by mouth once daily. metoprolol succinate ER (TOPROL XL) 25 mg 24 hr tablet Take 25 mg by mouth once daily. LORazepam (ATIVAN) 0.5 mg Take by mouth daily at bedtime. nitroglycerin sublingual (NITROQUICK) 0.4 mg SL tablet Dissolve 0.4 mg under the tongue every 5 minutes as needed for chest pain. acetaminophen (TYLENOL) 325 mg cap Take by mouth. No current facility-administered medications for this visit. ALLERGIES Allergen Reactions Clindamycin Hives Terbinafine Hives Tramadol Unknown REVIEW OF SYSTEMS: 10 ROS reviewed negative except what noted on HPI. PHYSICAL EXAM: VS reviewed GENERAL APPEARANCE: ill appearing but non toxic appearance. NO acute distress. . ABDOMEN: Abdomen soft, non-tender. Bowel sounds normal. No masses, organomegaly, R quadrant Gallo tube: site WNL / no redness or swelling, drain bag with bilious drain. NEURO: Alert, oriented x3, no asterixis, speech clear and articulate, and VARGAS DATA: Diagnostic tests reviewed for today's visit: Most recent labs Most recent imaging ASSESSMENT / PLAN Chronic cholecystitis S/p percutaneous gallo tube 12/13 S/p perc gallo tube exchanges 12/20 d/t dislodgment of above. S/p cholangiogram at [facility] 01/25 - scheduled for cholecystectomy 02/[address] Izquierdo - Monitor drain output - Discussed / reviewed signs / symptoms of infection and to seek medical care should experience anysymptoms. - Patient / daughter voiced understanding. There are no diagnoses linked to this encounter. Vadim Mobley APRN.CNP Greater than 50% of the direct patient contact time was spent in counseling or coordination of care. [facility] History of Present illness Narrative* Michael Noel APRN.CNP - 02/15/2024 2:00 PM ESTSummary: GSV Images from the original note were not included. Michael Noel APRN.CNP [facility] [address] [facility], [address] [place] [id number] Patient: Hiram Doran Date of : 1940 Subjective Scheduled OR Date: 02/24/2024 Surgeon: Dr. Izquierdo PCP: Malissa Rascon MD DIAGNOSES: Acute acalculous cholecystitis PLANNED PROCEDURE: Laparoscopic Cholecystectomy HPI Hiram Doran is a 83 year old male, who was recently evaluated for surgery and has elected to proceed with the above mentioned surgical intervention. Patient has a h/o COPD, former smoker, PHTN, HLD,afib on Eliquis, malnutrition. He also has a h/o acute acalculous cholecystitis; he has a gallo drain in place. Patient has met with Dr. Izquierdo and is scheduled for above mentioned surgery on 02/24/2024. Patient reports he occasionally has back pain, especially when laying flat, he does take 1000 mg of Tylenol BID which helps. He also reports his Gallo drain bag has increased in amount of drainage, has darkened in color, and smells foul. He was seen in the ED last week, workup was negative, he has appt with EGS surgery TIP later today. He reports he has been tired since being home from the hospital last month. He is sleeping less during the night, but taking naps early during the day. He was started on Remeron 7.5 mg during his recent hospital stay, but has developed pruritus on his torsoand back. He was instruction to hold this medication per PCP to see if this helps, has been held for about 6 days, and has some improvement in symptoms. He is also taking Benadryl for this as well. He denies any open areas, wounds, or rashes. Also reports he had some delirium/confusion for a coupledays during his most recent hospitalization, feels some lingering effects, but mostly resolved. He does wear hearing aids and glasses. 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 He denies any falls or syncope. He does walk with a walker for support. He did some therapy after hospital discharge and daughter is a TITLE CLERK and instructing him on strength training exercises. He reports a few pound weight loss being in the hospital, but appetite has improved since being home. He is doing Ensure High Protein once a day. Reports chronic constipation, takes Senna for this. He also states he has some postop nasal drainage recently that was dark yellow, but has lightened. He was treated for PNA, lung abscess, and a pneumothorax during his recent hospitalization. He denies any SOB. He also had PSG titration for his CPAP last, not sure of results. He does use 3 liters of oxygen to his CPAP. Denies any syncope. Denies and fevers or chills. Patient lives with: , Tammy, daughter Lala lives close by Overall Health Goal (Patient's own words, I.e. I just want to feel better): I want my gallbladderour to feel better Treatment Goal (What do you hope surgery will accomplish?): I want my gallbladder our to feel better Does patient want another office visit to discuss any surgical decision-making issues AGAIN prior to surgery? No PAST MEDICAL HISTORY PAST MEDICAL HISTORY Diagnosis Date Chronic obstructive pulmonary disease (COPD) (HCC) Pulmonary HTN (HCC) moderatley severe ECHO 12/2023 Pulmonary hypertension (HCC) FAMILY HISTORY History reviewed. No pertinent family history. PAST SURGICAL HISTORY PAST MEDICAL HISTORY Diagnosis Date Chronic obstructive pulmonary disease (COPD) (HCC) Pulmonary HTN (HCC) moderatley severe ECHO 12/2023 Pulmonary hypertension (HCC) ALLERGIES ALLERGIES Allergen Reactions Clindamycin Hives Terbinafine Hives Tramadol Unknown MEDICATIONS Current Outpatient Medications Medication Sig Dispense Refill mirtazapine (REMERON ORAL) Take 7.5 mg by mouth daily at bedtime. ergocalciferol, vitamin D2, (VITAMIN D2 ORAL) Take by mouth. budesonide (PULMICORT) 0.5 mg/2 mL nebulizer solution Use 0.5 mg via nebulizer once daily. guaiFENesin (MUCINEX) 1,200 mg Ta12 Take by mouth. sucralfate (CARAFATE) 1 gram tablet Take 1 g by mouth four times daily. Lactobacillus Acidoph and Bulgar (FLORANEX) 100 million cell grpk Take 1 Packet by mouth three times a day with meals. 90 Packet 0 sucralfate (CARAFATE) 1 gram tablet Take 1 g by mouth two times a day. apixaban (ELIQUIS) 5 mg tab(s) Take 5 mg by mouth two times a day. pantoprazole DR (PROTONIX) 40 mg tablet Take 40 mg by mouth once daily. midodrine (PROAMITINE) 5 mg tablet Take 5 mg by mouth three times a day. TAKE AT 10AM, 2PM, AND 6PM DULoxetine (CYMBALTA) 60 mg capsule Take 60 mg by mouth once daily. empagliflozin (JARDIANCE) 25 mg tablet Take 12.5 mg by mouth daily with breakfast. Take 1/2 of 25mgtablet. finasteride (PROSCAR) 5 mg tablet Take 5 mg by mouth once daily. dofetilide (TIKOSYN) 250 mcg capsule Take 250 mcg by mouth two times a day. methocarbamol (ROBAXIN) 750 mg tablet Take 750 mg by mouth two times a day. vit C-vit T-Db-Qw-lutein-zeax (ICAPS AREDS2, COPPER CITRATE,) 250 mg-200 unit - 12.5 mg-1 mg tab Take 1 capsule by mouth once daily. levalbuterol (XOPENEX) 0.63 mg/3 mL nebulizer solution Use 1 Ampule via nebulizer three times a day. tiotropium Br/olodaterol HCl (STIOLTO RESPIMAT INHALATION) Inhale 2 Puffs as instructed once daily. tamsulosin (FLOMAX) 0.4 mg Take 0.8 mg by mouth once daily. rosuvastatin (CRESTOR) 5 mg tablet Take 5 mg by mouth once daily. ezetimibe (ZETIA) 10 mg tablet Take 10 mg by mouth once daily. metoprolol succinate ER (TOPROL XL) 25 mg 24 hr tablet Take 25 mg by mouth once daily. LORazepam (ATIVAN) 0.5 mg Take by mouth daily at bedtime. nitroglycerin sublingual (NITROQUICK) 0.4 mg SL tablet Dissolve 0.4 mg under the tongue every 5 minutes as needed for chest pain. (Patient not taking: Reported on 02/15/2024) acetaminophen (TYLENOL) 325 mg cap Take by mouth. No current facility-administered medications for this visit. Review of Systems Review of Systems Constitutional: Positive for fatigue and unexpected weight change (few pounds). Negative for diaphoresis and fever. HENT: Negative for trouble swallowing. Respiratory: Positive for shortness of breath (chronic SOBE). Negative for cough and wheezing. Cardiovascular: Negative for chest pain, palpitations and leg swelling. Gastrointestinal: Positive for constipation (takes Senna). Negative for abdominal pain, blood in stool, diarrhea, nausea and vomiting. +gallo drain Genitourinary: Negative for dysuria and hematuria. Musculoskeletal: Positive for back pain (occasional). Walks with walker Skin: Negative for rash and wound. Itchy skin on back and torso Neurological: Positive for dizziness (sometimes with low BP). Negative for syncope and light-headedness. Psychiatric/Behavioral: Negative for confusion and hallucinations. OBJECTIVE PHYSICAL EXAMINATION: BP 120/77 Pulse 93 Resp 18 Ht 172.7 cm (5' 8) Wt 72.6 kg (160 lb) SpO2 94% BMI 24.33 kg/m Body mass index is 24.33 kg/m . Physical Exam Vitals and nursing note reviewed. Eyes: Pupils: Pupils are equal, round, and reactive to light. Neck: Vascular: No carotid bruit. Cardiovascular: Rate and Rhythm: Normal rate and regular rhythm. Pulses: Normal pulses. Heart sounds: Normal heart sounds. Comments: +ectopy Pulmonary: Effort: Pulmonary effort is normal. Breath sounds: Normal breath sounds. Abdominal: General: Bowel sounds are normal. Comments: +gallo drain Musculoskeletal: Right lower leg: No edema. Left lower leg: No edema. Comments: Uses walker Skin: General: Skin is warm and dry. Findings: No erythema or lesion. Neurological: Mental Status: He is alert and oriented to person, place, and time. Psychiatric: Mood and Affect: Mood normal. ADVANCED DIRECTIVES ADVANCED CARE PLANNING: Has HCPOA and Has Living Will SURROGATE DECISION MAKERS: , Tammy, number on file and verified -If yes, does the patient have a copy for [facility] to have on file: No, will bring in to be scanned -Patient would like to be a FULL CODE MENTAL STATUS: 4AT Delirium Test: -Alertness: Normal=0 Mild sleepiness for <10 seconds after waking, then normal=0 Clearly abnormal=4 -Abbreviated Mental Test: Age, , Location, current year(No mistake=0, One mistake=1, Two or more=2) -Attention: Months of the year backwards-(7 or more=0, less than 7=1, intestable=2) -Acute Change: Fluctuation in alertness, cognition, hallucinations over the past 2 weeks (No=0, yes=4) Total: 1 4 or more:possible delirium and/or cognitive impairment 1-3: possible cognitive impairment 0:Delirium or severe cognitive impairment unlikely Discussed possibility of delirium during hospital course DEAR-Delirium Risk Assessment: -Patient age 80 or older: Yes -Sensory Impairment: -Patient using hearing aid and/or has very low vision: Yes -Functional Dependence: -Patient requires assistance with any: bathing, feeding, dressing, toileting: No -Substance Use: -Consumes >3 drinks of alcohol per week and/or benzodiazapine use >3/week: No -Cognition: -Previous postop delirium or confusion/failed clock drawing: Yes, previous delirium SCORE: yes= 3 More than 1 Yes indicates patient is at higher risk for developing delirium MiniCog: SCORE: 4/5 A total score of 0, 1, or 2 indicates higher likelihood of clinically important cognitive impairment. A total score of 3, 4, or 5 indicates lower likelihood of dementia but does not rule out some degree of cognitive impairment. 1 point for each word correctly recalled without prompt 2 points for a normal clock or 0 (zero) points for an abnormal clock drawing Clock Drawing: Social History: Limited finances/resources: no Home assistance/caregiver required after surgery: no Currently involved with Case Management/Raise Drill Operator: no Home environment/homeless/hygiene concerns: no Geriatric Depression Scale (Short Form):On Cymbalta 60 mg, Denies any symptoms No data to display PHQ-9 Questionnaire:On Cymbalta 60 mg, denies any symptoms No data to display (0-4) minimal depression, (5-9) mild depression, (10-14) moderate depression, (15-19) moderately severe depression, (20-27) severe depression AILEEN-7 (Anxiety): Ativan 0.5 mg PRN, On Cymbalta 60 mg, denies any symptoms No Data Recorded (0-4) minimal anxiety, (5-9) mild anxiety, (10-14) moderate anxiety, (15-21) severe anxiety Functional Status: Clinical Frailty Scale: -Very Fit- Exercise regularly (1) -Well- Occasionally active (2) -Managing Well- Not regularly active (3) -Vulnerable- Limited activity/tired throughout day/slowed up (4) -Mildly Frail- Help needed with ADLs (finances, medications, transportation) (5) -Moderately Frail- Help with all outside activities and with keeping the house, stairs/bathing/dressing (6) -Severely Frail- Completely dependent for personal care (7) -Very Severely frail- Approaching End of Life (8) -Terminally Ill- Life expectancy < 6 months (9) SCORE: 4 Score 1-3- Walking Program Score 4-6- Referral to Outpatient PT/OT Score 7-9- Referral to Home PT/OT Functional assessment: Altered Walking in [place] Highest Level of Mobility (-HLM Scale): Walk: >250 feet =8 25 feet =7 10 steps =6 Stand: 1 minute =5 Chair: Transfer =4 Bed: Sit at edge =3 Turn self =2 Lying =1 Score: 8 Substance Abuse: Denies The Alcohol Use Disorders Identification Test (AUDIT): No data to display The scoring instructions are as follows: Risk Level Intervention AUDIT score Zone I Alcohol Education 0-7 Zone II Simple Advice 8-15 Zone III Simple Advice plus Brief Counseling and Continued Monitoring 16-19 Zone IV Referral to Specialist for Diagnostic Evaluation and Treatment 20-40 SMOKER/TOBACCO USE: No -Patient smokes: Former smoker Drug Abuse Screen Test (DAST-10): Denies No data to display Sleep Apnea STOP BANG Questionnaire H/o OAS, uses CPAP, 3 liters oxygen bled in Nutrition: Perioperative Nutrition Score (SONYA) BMI <18.5: No BMI <20 if age >65: No Eating less than 50% of normal diet in the preceding week: No Unplanned weight loss >10% in past 6 months: No Albumin Level less than 3: no Albumin Date Value Ref Range Status 02/09/2024 3.8 (L) 3.9 - 4.9 g/dL Final -Ensure High protein daily Swallow Evaluation ([place] Swallow Protocol): Normal oral mechanical exam: Yes Normal cognition: Yes 3 oz swallow challenge: Passed (drink 3 oz of water with sequential swallows without stopping) -upper dentures Dyspnea Assessment (mMRC Dyspnea Scale): -I only get breathless with strenuous exercise 0 -I get SOB when hurrying on level ground or walking up a slight hill 1 -On level ground, I walk slower than people of the same age because of breathlessness, or have to stop for breath when walking at my own pace. 2 -I stop for breath after walking about 100 yards or after a few minutes on level ground 3 -I am too breathless to leave the house or I am breathless when dressing 4 Score: 1 Polypharmacy: Medication list reviewed and reconciled. PDMP web site checked and validated. All prescriptions have been APPROPRIATELY filled and NO suspicious activity was identified. Michael Noel APRN.SURVEYING OR SPATIAL SCIENCE TECHNICIAN February 10, 2024 -Lorazepam 0.5 mg daily -PDMP 0.7 Avg LME/day, 10.3 LME per Rx Venous Thromboembolism Risk Assessment: Hx clotting disorder: No Hx PE/DVT: no OAC Use: Yes: on Eliquis for Afib ASA use: No Pulmonology: Asthma: no COPD: yes, on pulmicort, stiolto, and xopenex Hypoventilation syndrome: no Recent exacerbation: Was treated for PNA 12/2023 during hospitlization Permastone Applicator: Dr. Donald, surgeon requesting pulmonary clearance CXR 02/09/2024: RESULT: Lines, tubes, and devices: None. Lungs and pleura: There is a 2.6 cm cavitary lesion again noted within the region of the left major fissure. This is similar compared to CT from 7 weeks ago. The lungs otherwise appear clear. No sizable consolidation or pleural effusion. Cardiomediastinal silhouette: Normal cardiomediastinal silhouette. Cardiac: Beta Megan use: No Hx of CAD: no Hx of HLD: yes, on statin and zetia CHF: yes see ECHO below, on Jardiance Prior [place]: no Hx abnormal EKG: yes see EKG below Hx abnormal heart rhythm: yes, afib, on BB, tykosyn, and Eliquis, s/p ablation Valvular heart disease: no Hx endocarditis: no PAD: no PVD: no CVA: no HTN: no Pulmonary HTN: yes see ECHO below Hx cardiovascular surgery: yes ablation Heel Pricker: Dr. Azar Kahn, surgeon requesting cardio clearance , in Epic placed at intermediate risk ECHO 12/16/2023: CONCLUSIONS: - Technically difficult exam due to body habitus. 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 Left ventricular systolic function is normal. EF = 55 5% (visual est.) Definity contrast used for endocardial border detection. Grade II left ventricular diastolic dysfunction. - The right ventricle is normal in size. Right ventricular systolic function is normal. - The left atrial cavity is moderately dilated. - Estimated right ventricular systolic pressure is 68 mmHg consistent with moderately severe pulmonary hypertension. Estimated right atrial pressure is 8 mmHg based on IVC assessment. - The patient has not had a prior CC echocardiographic exam for comparison. EKG 10/28/2023: Diagnosis: SINUS RHYTHM WITH PREMATURE ATRIAL COMPLEXES WITH ABERRANT CONDUCTION LEFT AXIS DEVIATION ABNORMAL ECG NO PREVIOUS ECGS AVAILABLE Confirmed by KAR ONEILL MD ([id number]) on 10/29/2023 9:36:26 AM ASSESSMENT/PLAN: Hiram Doran is a 83 year old male, who was recently evaluated for surgery. Patient has a h/o COPD,former smoker, PHTN, HLD, afib on Eliquis, malnutrition. He also has a h/o acute acalculous cholecystitis; he has a gallo drain in place. Patient has met with Dr. Izquierdo and is scheduled for above mentioned surgery on 02/24/2024. Vulnerabilities Assessed at Visit: 1.) At risk for Delirium:MiniCog score 4/5. Patient should bring all sensory aids with them DOS, hearing aids and glasses. Prompt return of sensory aids in PACU, family in PACU if able. Use of Beer'scriteria. Early ambulation. Delirium assessments to be performed per protocol during hospital course, if positive delirium inpatient, geriatric consult 2.) Physical deconditioning: walks with walker, no recent falls, daughter is TITLE CLERK and giving him strength training exercises Patient would like to be a FULL CODE ACS Surgical Risk Calculator: [id number] - Laparoscopy, surgical; cholecystectomy: 10.2 % risk of serious complication, 2.8% risk of mortality, 9.0% risk of postop delirium POLYPHARMACY: -use of ERAS when possible -BEERs Criteria be considered when ordering medications -Medication reconciliation complete prior to discharge to determine need for further use/treatment -Lorazepam 0.5 mg daily at bedtime -PDMP 0.7 Avg LME/day, 10.3 LME per Rx NUTRITION: SONYA score: negative Swallow eval: passed Albumin (g/dL) Date Value 02/09/2024 3.8 (L) -Education provided with reference material given to patient -Impact nutritional supplements given to start 5 days prior to surgery, BID -Consult to RD, inpatient -On Vitamin D supplements 25 mcg daily -Make sure to eat source of lean protein at each meal, aim for 60 grams of protein a day -Aim for 2 servings of leafy green vegetables a day -Ensure high protein daily, please continue ANEMIA: No Hematocrit Date Value Ref Range Status 02/09/2024 40.4 39.0 - 51.0 % Final -Hgb 12.8 02/09/2024 -Bleed and bruise easily -PLT 271 02/09/2024 CKD: No Creatinine (mg/dL) Date Value 02/09/2024 0.94 -GFR 79 02/09/2024 -Reviewed with the patient the importance of hydration pre/postoperatively. -Aim for 64 ounces of fluid a day DIABETES: No No results found for: HBA1C, GLUCFAST -BG 110 02/09/2024 MOBILITY: -Frailty score: 4=PT for prehab, daughter is TITLE CLERK and giving him strength training exercises -Pedometer: increase your steps by 10% over baseline COGNITION: -4AT: 1= possible cognitive impairment -MiniCo/5 score: lower likelihood of dementia -DEAR Assessment: 3= indicates patient is at higher risk for developing delirium -Patient should bring all sensory aids with them DOS, hearing aids and glasses -Prompt return of sensory aids in PACU -Use of Beer's criteria -Early ambulation -Delirium assessments to be performed per protocol during hospital course -Discussed risk of delirium during hospital course -if positive delirium inpatient, geriatric consult -health proxy, Kavin -Advanced Directives packet to be brought in to be scanned -Patient would like to be a FULL CODE PSYCHOSOCIAL: -Educational material given to patient for stress reduction/management -Denies any symptoms of depression or anxiety -Ativan 0.5 mg daily at bedtime -On Cymbalta 60 mg daily CARDIAC: Recommended cardiac clearance: Yes, Dr. Kahn, In [facility], placed at intermediate risk -Continue use of BB during preoperative time as scheduled -Afib, s/p ablation 2022, on BB, Tikosyn, Eliquis -PHTN, right ventricular systolic pressure 68 mmHg consistent with moderately severe pulmonary hypertension, ECHO 12/2023 -Denies any cardiac symptoms -METs <5, denies SOB, reports physical deconditioning VENOUS THROMBOEMBOLISM RISK ASSESSMENT: -Surgeon to determine prophylaxis regimen -Managing provider contacted for instructions for OAC -On Eliquis for h/o Afib -Per cardio, may stop Eliquis 2-3 days prior surgery PULMONOLOGY: -Stop BANG: h/o JORGE, on CPAP with 3 liters oxygen, instructed to bring DOS -Dyspnea Scale: 0=denies any SOBE, CP, syncope -Recommended pulmonary clearance: Yes-Dr. Donald, surgeon requesting pulmonary clearance -Had recent PSG testing, no report back -Start IS, instructions reviewed -Recommend IS using 10 times an hour while awake during hospital course -Former smoker -h/o COPD, on pulmicort, stiolto, and xopenex -Was treated for PNA December 2023 during hospitalization -Please refer to Pulmonology office notes in scanned docs -The function of the surgery optimization clinic is to optimize modifiable risk factors prior to surgery. This clinic does not provide medical clearance for surgery. As always, the decision whether or not to proceed with surgery should be based on an evaluation of the risks versus benefits of the procedure, and should be made between the patient and the surgeon. -A letter and copy of this encounter was sent to referring surgeon and the patient's primary care provider. -Surgery optimization clinic RN will follow up with patient on areas addressed for optimization. I spent a total of 120 minutes on the date of the service which included preparing to see the patient, [id number] patient care, completing clinical documentation, obtaining and/or reviewing separately obtained history, performing a medically appropriate examination, counseling and educating the pa tient/family/caregiver, communicating with other HCPs (not separately reported), independently interpreting results (not separately reported), and communicating results to the patient/family/caregiver. ELECTRONICALLY SIGNED AND DATED BY: Michael Noel APRN, CNP [facility] documented in this [facility]Bu[facility]12-[facility]-2024 [facility]11[facility]27[facility] Instructions* Patient Instructions* Michael Noel APRN.ALY - 02/10/2024 11:39 AM EST Incentive Spirometer: -Start with breathing exercise today, goal 30-40 breaths a day *Incentive spirometer is used to help with lung expansion post operatively. It can be of benefit preoperatively to for those who smoke or have lung disease. Use the spirometer as instructed during your hospital visit. Take 10 deep breaths, hold for one second and then slowly exhale. You can take cleansing breaths in between as needed to avoid feeling dizzy or lightheaded. Use the spirometer hourly if possible. You will continue with this postoperatively. Pedometer: -Pedometer to monitor your steps starting today -For the first 3 days monitor your average daily steps to get your baseline number -Then increase your steps by 200-300 every couple of days as able -Goal is to increase mobility as much as possible prior to surgery * Research has shown that increased strength, mobility and function preoperatively will help you torecover with less complication. Your effort preoperatively will yield better results postoperatively Stress Relief: -Deep breathing exercises -Sleep: 6-8 hours of sleep each night -Meditate -Laughing -Walking -Positive self-talk -Finding a support system -Exercise, walking, being active Nutrition: -Make sure you are getting enough protein a day, with a goal of at least 1 high- protein food with each of your three meals a day -High protein sources include: chicken breast, lean beef, salmon, tofu, peanut butter, eggs, nepalese yogurt, cottage cheese, black beans, lentils -Make sure you are including high calcium foods, at least 3 servings a day: low- fat dairy, dark-leafy greens, sardines, or calcium-fortified cereals -Make sure you are getting vitamins and minerals by including at least four servings of fruits/vegetables a day - Drink 2 shakes daily for 5 days leading up to the day of surgery. *It has been shown through research that boosting the nutritional intake preoperatively with calories, vitamins and minerals, and hydration, promotes early recovery and improved healing postoperatively. You have been provided a case of supplement to take. Advanced Directives: Advanced directives are your preferences and personal requests in the event you are unable to make decisions for yourself following surgery. It is important for you to discuss your wishes with your family. It is requested that a single family member be designated as your power of estate attorney in the event you cannot speak for yourself. This person should know what you would prefer as your medical choices if you were not compromised. This person, family or friend, should know what you prefer for your medical care and decisions if you are unable to make those decisions for yourself. Notify your surgeon s office to update your records with the designated Durable Power of Bench Shear Operator. -A great web site for information: [email or web address] If you already have an Advance Directive, please fax a copy to [phone] or email to for it to be added to your chart. If you do not have an Advance Directive, you can find the appropriate form and more information at [email or web address]. We recommend that youcomplete the Advance Directive form found on the website and bring it with you the day of your surgery. It can be witnessed and scanned into your chart that day. Sensory Aids: -If you have any sensory aids, such as hearing aids, or glasses, please bring these with you day ofsurgery -Encouraged to bring sleep hygiene items such as ear plugs and eye mask for more restful sleep during hospital stay - Information sheet on Delirium given to patient Sleep Apnea: If you have a CPAP machine, please bring that with you day of surgery. Smoking Cessation: -Quit smoking or vaping -Goal is to be abstinent from smoking prior to surgery, the sooner you quit, the less risk of post-op complications -Handout given on importance of smoking cessation -Resourceful web site: www.[place].com - [facility] smoke cessation resources: 1(069)-QUIT-NOW documented in this encounterBucyrus [facility]11-26-2024 Telephone encounter Note * Telephone Encounter - Michael Noel APRN.CNP - 02/09/2024 12:04 PM EST Spoke with Daughter and patient on the phone. Reports a change in gallo drain output from 250/day to 500/day. There is now a foul odor, color change seems to be more dark green. Patient having mid/right side back pain. Vital signs past 2 days have shown BP 92/50, his Midodrine was given, and HR 100. Also having some confusion and weakness. Denies any N/V, fevers, chills, CP, SOB. Advised patient and daughter to have patient be evaluated in in the emergency room. Agreeable to this and will go to [facility] [place]. -Michael Noel APRN.CNP [facility] Work Phone: [phone] Miscellaneous Notes* Telephone Encounter - Michael Noel APRN.CNP - 02/09/2024 12:04 PM EST Spoke with Daughter and patient on the phone. Reports a change in gallo drain output from 250/day to 500/day. There is now a foul odor, color change seems to be more dark green. Patient having mid/right side back pain. Vital signs past 2 days have shown BP 92/50, his Midodrine was given, and HR 100. Also having some confusion and weakness. Denies any N/V, fevers, chills, CP, SOB. Advised patient and daughter to have patient be evaluated in in the emergency room. Agreeable to this and will go to [facility] [place]. -Michael Noel APRN.CNP documented in this encounterBucyrus [facility] Hospital11-26-2024 Telephone encounter Note * Telephone Encounter - Consuelo Giang - 02/09/2024 11:47 AM EST Message sent to Michael Noel over concerns for smell, bp, hr. Michael is going to reach out to the daughter. Consuelo Giang February 09, 2024 11:50 AM [facility]11-26-2024 Miscellaneous Notes* Telephone Encounter - Consuelo Giang - 02/09/2024 11:47 AM EST Message sent to Michael Noel over concerns for smell, bp, hr. Michael is going to reach out to the daughter. Consuelo Giang February 09, 2024 11:50 AM documented in this encounterBucyrus [facility] Hospital11-26-2024 Telephone encounter Note * Telephone Encounter - Consuelo Giang - 02/09/2024 11:11 AM EST This pts daughter called in to advise that her dads drain output has increased from 250 to 500 yesterday it started getting an odor and today the odor is terrible. Pt also has some back pain. Per Dr. Miles noted. we will continue to follow. Most of these things we can get updates in office appointments with the surgeon with respect to daily drain journal. Most important changes to disclose would be any drain dislodgement or complete lack of output or any signs of infection such as feverwith worsening pain. I spoke to pts daughter Lala. Pt has resting hr of 100, is weak and daughter is very concerned with the smell. Message sent to Shala Noel who pt is seeing 02/16/2024. Consuelo Giang February 09, 2024 11:34 AM [facility]11-26-[facility]24 Miscellaneous Notes* Telephone Encounter - Consuelo Giang - 02/09/2024 11:11 AM EST This pts daughter called in to advise that her dads drain output has increased from 250 to 500 yesterday it started getting an odor and today the odor is terrible. Pt also has some back pain. Per Dr. Miles noted. we will continue to follow. Most of these things we can get updates in office appointments with the surgeon with respect to daily drain journal. Most important changes to disclose would be any drain dislodgement or complete lack of output or any signs of infection such as feverwith worsening pain. I spoke to pts daughter Lala. Pt has resting hr of 100, is weak and daughter is very concerned with the smell. Message sent to Shala Noel who pt is seeing 02/16/2024. Consuelo Giang February 09, 2024 11:34 AM documented in this encounterBucyrus [facility] Hospital11-22-2024 Telephone encounter Note * Telephone Encounter - Nellie Garcia MA - 02/05/2024 3:34 PM EST Daughter called to say that she was going to empty her Dad's bag and it was empty. She is concernedas there is usually 50-100 cc of output twice daily. She also noticed his BP is lower than normal about 86/58. He is not showing any signs of infection or fever at this time. I told her to observe him closely, watch for output by early a m. I f there is none, then call the office and the answering service will page the Dr pond scaler. Also, we discussed infection signs and if he becomes febrile or ill come to ED immediately. Nellie Brown [facility]11-20-2024 [facility]11-20-2024 History of Present illness Narrative* Aleksandra Izquierdo MD - 02/03/2024 4:39 PM EST Emergency General Surgery Clinic Note: Patient presents with: Follow Up HPI: This is a post hospital discharge visit. Initially admitted to [facility] for treatment of pneumonia. CT chest completed on 10/25/2023 demonstrated a 7x3.5x7.9cm cavitary lesion concerning for abscess and [facility]. Clinically improved and discharged to home on 10/30/2023. Returned to the hospital on 12/13/23 with upper abdominal pain, CT imaging completed at [facility] noted severe acute cholecystitis with edema/inflammatory changes surrounding 2/3 portions of duodenum and pancreas. Surgery was consulted and after evaluating patient/imaging, the decision was to place a cholecystostomy tube for decompression of the biliary tree. IR drain was placed 12/14/23. Blood cultures (+) for VRE. PICC line placed with fdc IV ABX: Daptomycin and Zosyn. ECHO 12/16/23 (-) for valvular vegetations. Recurrent abdominal pain with recurrent leukocytosis on 12/19/[address] a/p demonstrating tube dislodgement, cholecystostomy tube replaced on 12/21/23. Clinically improved with resolution of his sepsis. Discharged to an Acute Inpatient Rehab facility in [place] for ongoing ABX and therapy. He has been at home for 1 week and continues to improve. No fevers or chills. No N/V (+) GERD symptoms, currently taking Protonix and Carafate. No melena or BRBPR Nil RUQ pain Cholecystostomy tube in place without bloody or purulent drainage, (+) clear cullen bile, no debris No past medical history on file. History reviewed. No pertinent surgical history. No family history on file. Social History Tobacco Use Smoking status: Never Smokeless tobacco: Never Substance Use Topics Alcohol use: Never Drug use: Never Current Outpatient Medications Medication Sig sucralfate (CARAFATE) 1 gram tablet Take 1 g by mouth four times daily. Lactobacillus Acidoph and Bulgar (FLORANEX) 100 million cell grpk Take 1 Packet by mouth three times a day with meals. sucralfate (CARAFATE) 1 gram tablet Take 1 g by mouth two times a day. apixaban (ELIQUIS) 5 mg tab(s) Take 5 mg by mouth two times a day. pantoprazole DR (PROTONIX) 40 mg tablet Take 40 mg by mouth once daily. midodrine (PROAMITINE) 5 mg tablet Take 5 mg by mouth three times a day. TAKE AT 10AM, 2PM, AND 6PM DULoxetine (CYMBALTA) 60 mg capsule Take 60 mg by mouth once daily. empagliflozin (JARDIANCE) 25 mg tablet Take 12.5 mg by mouth daily with breakfast. Take 1/2 of 25mgtablet. finasteride (PROSCAR) 5 mg tablet Take 5 mg by mouth once daily. dofetilide (TIKOSYN) 250 mcg capsule Take 250 mcg by mouth two times a day. methocarbamol (ROBAXIN) 750 mg tablet Take 750 mg by mouth two times a day. vit C-vit N-Tf-Om-lutein-zeax (ICAPS AREDS2, COPPER CITRATE,) 250 mg-200 unit - 12.5 mg-1 mg tab Take 1 capsule by mouth once daily. levalbuterol (XOPENEX) 0.63 mg/3 mL nebulizer solution Use 1 Ampule via nebulizer three times a day. tiotropium Br/olodaterol HCl (STIOLTO RESPIMAT INHALATION) Inhale 2 Puffs as instructed once daily. tamsulosin (FLOMAX) 0.4 mg Take 0.8 mg by mouth once daily. rosuvastatin (CRESTOR) 5 mg tablet Take 5 mg by mouth once daily. ezetimibe (ZETIA) 10 mg tablet Take 10 mg by mouth once daily. metoprolol succinate ER (TOPROL XL) 25 mg 24 hr tablet Take 25 mg by mouth once daily. LORazepam (ATIVAN) 0.5 mg Take by mouth daily at bedtime. nitroglycerin sublingual (NITROQUICK) 0.4 mg SL tablet Dissolve 0.4 mg under the tongue every 5 minutes as needed for chest pain. acetaminophen (TYLENOL) 325 mg cap Take by mouth. No current facility-administered medications for this visit. ALLERGIES Allergen Reactions Clindamycin Hives Terbinafine Hives Tramadol Unknown Review of Systems Constitutional: Negative for chills and fever. Respiratory: Negative for cough, sputum production and shortness of breath. Cardiovascular: Negative for leg swelling. Gastrointestinal: Positive for abdominal pain and heartburn. Negative for blood in stool, constipation, diarrhea, melena, nausea and vomiting. Musculoskeletal: Ambulating with wheeled walker Neurological: Negative for dizziness. BP 104/64 Pulse 84 Ht 5' 8 (1.73m) Wt 163 lb 12.8 oz (74.3kg) BMI 24.91 kg/(m^2). Physical Exam Constitutional: General: He is not in acute distress. Appearance: Normal appearance. He is not ill-appearing. HENT: Head: Normocephalic. Nose: Nose normal. Mouth/Throat: Mouth: Mucous membranes are moist. Eyes: General: No scleral icterus. Extraocular Movements: Extraocular movements intact. Pupils: Pupils are equal, round, and reactive to light. Cardiovascular: Rate and Rhythm: Normal rate and regular rhythm. Pulses: Normal pulses. Heart sounds: Normal heart sounds. Pulmonary: Effort: Pulmonary effort is normal. No respiratory distress. Breath sounds: Normal breath sounds. Abdominal: General: Abdomen is flat. Bowel sounds are normal. There is no distension. Palpations: Abdomen is soft. There is no mass. Comments: Percutaneous cholecystostomy tube in place, clear yellow bile in bag, mild erythema at skin insertion site, dressing changed in office today. No surgical incision. No hernia. Musculoskeletal: General: Normal range of motion. Skin: General: Skin is warm and dry. Findings: No rash. Neurological: General: No focal deficit present. Mental Status: He is alert and oriented to person, place, and time. Mental status is at baseline. Psychiatric: Behavior: Behavior normal. DATA: Diagnostic tests reviewed for today's visit: Most recent labs Most recent imaging Most recent EKG Most recent ECHO Inpatient notes in [facility] ECHO 12/16/2023: LV is normal in size. Left ventricular systolic function is normal. EF = 55 5%. Grade II left ventricular diastolic dysfunction. RV is normal in size. Right ventricular systolic function is normal. Left atrial cavity is moderately dilated. Estimated right ventricular systolic pressure is 68 mmHg consistent with moderately severe pulmonary hypertension. Tube Cholangiogram 01/26/2024 at [facility]: No cholelithiasis No choledocholithiasis Normal opacification of cystic duct and CBD and duodenum Hemoglobin (g/dL) Date Value 12/23/2023 10.5 Hematocrit (%) Date Value 12/23/2023 32.7 WBC (k/uL) Date Value 12/23/2023 15.09 BUN (mg/dL) Date Value 12/23/2023 11 Creatinine (mg/dL) Date Value 12/23/2023 0.68 Potassium (mmol/L) Date Value 12/23/2023 3.7 Alkaline Phosphatase (U/L) Date Value 12/23/2023 184 AST (U/L) Date Value 12/23/2023 25 ALT (U/L) Date Value 12/23/2023 22 ASSESSMENT / PLAN Chronic Heart Failure With Preserved Ejection Fraction (Hcc) - 02/04/2024 Pulmonary Hypertension (Hcc) - 02/04/2024 Longstanding Persistent Atrial Fibrillation (Hcc) - 02/04/2024 Anticoagulant Long-Term Use - 02/04/2024 Comment: Eliquis Malnutrition of Moderate Degree (Hcc) - 12/22/2023 Vre Bacteremia - 12/17/2023 Sepsis Without Acute Organ Dysfunction (Hcc) - 12/14/2023 Right Upper Quadrant Abdominal Pain - 12/14/2023 Acalculous Cholecystitis - 12/13/2023 Hyponatremia - 10/29/2023 Covid-19 - 10/29/2023 Cavitary Lesion of Lung - 10/29/2023 Lung Abscess (Hcc) - 10/27/2023 Hemoptysis - 10/27/2023 Plan: Hiram Doran is a 83 year old male with PMHx AFIB, HFpEF, pulmonary HTN, DM, PNA who presented initially with Grade III acute calculous cholecystitis on 12/13/2023.Given his co-morbidities and acute inflammatory phlegmon of the biliary/duodenal/pancreatic region, the patient was treated with a percutaneous cholecystostomy tube placement. He has clinically improved and now presents for delayed cholecystectomy. The risks of the operation were discussed in detail with the patient, including, but not limited to, infection, bleeding, and damage to surrounding structures, including common bile duct injury. The patient has decided to proceed with surgery electively. Discussed tube clamping and possible removal with observation to the patient and daughter as an alternative option. They are requesting cholecystectomy based on the prior increase in his abdominal pain with tube dislodgement and ongoing low-grade RUQ abdominal pain at the present time. We will need to obtain preoperative clearance from his cardiology and pulmonary physicians as well as facilitate his preoperative optimization to decrease his perioperative morbidity and mortality risks. ACS Surgical Risk Calculator: 2 % Mortality Risk which is High Risk (Mortality Risk 1% to 10% and/or Child Class A/B Cirrhosis) ACS Surgical Risk Calculator (CPT 29660): Risk of serious complication: 8% Risk of any complication: 11% Risk of PNA: 2% Risk of cardiac complication: 1.4% Risk of readmission: 14% Risk of discharge to nursing/rehab facility: 21% Risk of sepsis: 3% Predicted hospital LOS: 2 days Contact the patient's physicians for clearance: Date of Surgery TBD Dr Azar Kahn, Cardiology. Need recommendations for holding Eliquis perioperatively, modification of cardiac risk factors, clearance. Dr Donald, Pulmonary. Recent office note with recommendations received will upload/attach to this note once received. Aleksandra Izquierdo MD 02/03/2024 4:39 PM Department of General Surgery Division of Trauma, Critical Care, and Acute Care Surgery Overall Health Goal (Patient's own words, I.e. I just want to feel better): To be able to move about freely. Treatment Goal (What do you hope surgery will accomplish?): To take it out and feel better. ADVANCED CARE PLANNING: Has HCPOA and living will SURROGATE DECISION MAKERS/HPOA (Name and Contact info): Self/ Daughter ELSA Fay [phone]. HIGH RISK SCREEN: Is patient 85 years of age or older? Yes Any history of memory loss or episodes of confusion? No Any swallowing difficulty or coughing when drinking liquids? No Does the patient have an unsteady gait? Yes Do they require assistance rising from a chair? Yes Was the patient unable to answer any of the above questions? No [facility] Inst[facility]* Patient Instructions* Aleksandra Izquierdo MD - 02/03/2024 3:59 PM EST Dressing change as needed when soiled, cholecystostomy tube site. [facility]24 [facility] Medical Records Department [address] [place] [address] Discharge Summary 01/22/24 1427 MR#: [id number] Acct: [id number] Name: HIRAM DORAN Rep #: [id number] : 1940 83 From: Parrish Shah MD PCP: Dr. Malissa Rascon MD Status:ADM IN Location: [place] [address] Providers Date of Admission: 01/15/24 Primary Care Physician: Dr. Malissa Rascon MD Reason For Visit: RIGHT PNEUMOTHORAX Diagnosis Discharge Diagnosis (1) Debility: Status: Acute Code(s): R53.81 - Other malaise (2) Acute respiratory failure with hypoxia: Status: Resolved Code(s): J96.01 - Acute respiratory failure with hypoxia (3) Pneumothorax after biopsy: Status: Acute Code(s): J95.811 - Postprocedural pneumothorax (4) Acalculous cholecystitis: Status: Acute Code(s): K81.9 - Cholecystitis, unspecified (5) Abscess of lung: Status: Acute Code(s): J85.2 - Abscess of lung without pneumonia (6) VRE bacteremia: Status: Resolved Code(s): R78.81 - Bacteremia; B95.2 - Enterococcus as the cause of diseases classified elsewhere; Z16.21 - Resistance to vancomycin (7) Emphysema of lung: Status: Acute Code(s): J43.9 - Emphysema, unspecified (8) Atrial fibrillation: Status: Acute Code(s): I48.91 - Unspecified atrial fibrillation (9) Hypothyroidism: Status: Acute Code(s): E03.9 - Hypothyroidism, unspecified (10) Depression: Status: Acute Code(s): F32.A - Depression, unspecified (11) (HFpEF) heart failure with preserved ejection fraction: Status: Acute Code(s): I50.30 - Unspecified diastolic (congestive) heart failure (12) BPH (benign prostatic hyperplasia): Status: Acute Code(s): N40.0 - Benign prostatic hyperplasia without lower urinary tract symptoms (13) Anxiety: Status: Acute Code(s): F41.9 - Anxiety disorder, unspecified (14) Muscle spasm: Status: Acute Code(s): M62.838 - Other muscle spasm (15) Orthostatic hypotension: Status: Acute Code(s): I95.1 - Orthostatic hypotension (16) Macular degeneration: Status: Acute Code(s): H35.30 - Unspecified macular degeneration (17) Coronary artery disease: Status: Acute Code(s): I25.10 - 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 (18) GERD (gastroesophageal reflux disease): Status: Acute Code(s): K21.9 - Gastro-esophageal reflux disease without esophagitis Plan 83 year old male with below past medical history hospitalized for acute respiratory failure with hypoxia 2/2 to pneumothorax after lung biopsy, resolved with chest tube, admitted to TCU with debility, here for rehabilitation, strengthening, prior to discharge home with . * Debility - PT/OT. * Pain - Tylenol 1000mg q6 prn pain (1-3), Oxycodone 5mg q6 prn pain (1-10). * Bowel - Senna/colace 1 tablet bid. * Adult immunization - Administer pneumonia vaccine, covid vaccine, flu vaccine as appropriate. * DVT prophylaxis - on Eliquis. * Atrial fibrillation - Metoprolol succinate 25mg daily, Tikosyn 250mg bid, Eliquis 5mg bid. * Hyperlipidemia - Atorvastatin 10mg qhs, Zetia 10mg daily. * COPD - Budesonide 0.5mg bid, Levalbuterol 0.63 tid, Incruse 1 puff daily. * HFpEF - Metoprolol succinate 25mg daily, Jardiance 12.5mg daily, Bumex 1mg mwf prn. * Vitamin D deficiency - D3 25mcg daily. * Depression - Duloxetine 60mg daily, stable chronic fdc use, GDR not recommended. * BPH - Finasteride 5mg daily, Tamsulosin 0.8mg daily. * Congestion - Mucinex 1200mg bid. * GI prophylaxis - Lactobacillus 1 cap tidcm. * Anxiety - Lorazepam 0.5mg qhs, stable chronic fdc use, GDR not recommended. * Muscle spasm - Robaxin 750mg bid. * Orthostatic hypotension - Midodrine 5mg tid. * Macular degeneration - Healthy Eyes 1 cap daily. * CAD - Metoprolol succinate 25mg daily, Eliquis 5mg bid, TG 0.4mg sl qm prn. * GERD - Pantoprazole 40mg daily, Carafate 1gm bid. Medications at Discharge Home Medications rosuvastatin 5 mg tablet (Crestor) 5 mg PO QDAY cholesterol 07/04/17 cholecalciferol (vitamin D3) 25 mcg (1,000 unit) tablet 25 mcg PO DAILY supplement 05/22/21 metoprolol succinate 25 mg tablet,extended release 24 hr 25 mg PO DAILY AFIB 06/27/21 nitroglycerin 0.4 mg sublingual tablet 0.4 mg sublingual Q5M PRN CP 06/27/21 dofetilide 250 mcg capsule 250 mcg PO Q12H afib 03/29/23 duloxetine 60 mg capsule,delayed release See Rx Instructions PO DAILY mood 03/29/23 empagliflozin 25 mg tablet (Jardiance) 12.5 mg PO DAILY heart 03/29/23 finasteride 5 mg tablet 5 mg PO DAILY bph 03/29/23 levalbuterol HCl 0.63 mg/3 mL solution for nebulization 0.63 mg inhalation TID copd 03/29/23 midodrine 5 mg tablet 5 mg PO 1000,1400,1800 blood pressure 03/29/23 vit C 250 mg-vit E 200 unit-zinc ox 12.5 pa-vedqlw-crbqbx-zeax capsule (ICaps AREDS2) 1 cap PO DAILY supplement 03/29/23 budesonide 0.5 mg/2 mL suspension for nebulization 0.5 mg (2 mL) in (more content not included)...[facility]10-09-2024 NoteO ID: [id number] Author: PAT VAZQUZE RN Service: Nursing Author Type: Registered Nurse Type: Nursing Progress Note Filed: 12/23/2023 13:27 Note Text: 1315: report called to [facility]. Transport scheduled for [address] [place], [place] 8104010-08-2024 [facility]10-08-2024 [facility]10-07-2024 [facility]10[facility]07-2024 Note [facility]10-06-2024 [facility] 12-19-2023 [facility]10-04-2024 [facility]10-04-2024 [facility]10-03-2024 [facility]10-02-2024 [facility]10-01-2024 [facility]10-01-2024 [facility]10-01-2024 Note [facility]10-01-2024 [facility] 12-15-2023 [facility]10-01-2024 NoteHNO ID: [id number] Author: BLAKE RAMESH, PANCHO Service: Nursing Author Type: Registered Nurse Type: Nursing Progress Note Filed: 12/15/2023 07:59 Note Text: Called respiratory for PRN breathing tx. Blake Ramesh RN December 15, 2023 7:59 [facility]09-30-2024 [facility]09-30-2024 [facility]09-29-2024 [facility]08-16-2024 [facility]08-16-2024 Note [facility]08-15-2024 [facility] 10-29-2023 [facility]08-14-2024 [facility]06-02-2024 Evaluation + Plan note Future Appointments Appointment Date:09/09/2023 02:45:00 PM Scheduled Provider: Location:[facility] Appointment Type:PC Nurse Injection Appointment Date:09/11/2023 02:45:00 PM Scheduled Provider: Location:[facility] Appointment Type:CV OV Future Scheduled Tests Radiology* NM Bone Imaging Whole Body 11/05/22 * MRI Spine Lumbar w/ + w/o Contrast 12/23/22 * XR Chest 2 Views/Decub 06/04/23 [facility] 01-26-2024 Discharge summary Author Parrish Shah [facility] April 10, 2023 2:28pm Note Date/Time April 10, 2023 2 :21pm [facility] Medical Records Department [address] [place] [address] Discharge Summary 04/10/23 1419 MR#: [id number] Acct: [id number] Name: HIRAM DORAN Rep #:[id number] : 1940 82 From: Parrish Shah MD PCP: Dr. Malissa Rascon MD Status:ADM IN Location: [place] [address] Providers Date of Admission: 04/01/23 Primary Care Physician: Dr. Malissa Rascon MD Reason For Visit: PAS,RVR,DIVERTICULITIS,RECENT ABLA,RETRO PER BLEED Diagnosis Discharge Diagnosis (1) Debility: Status: Acute Code(s): R53.81 - Other malaise (2) Atrial fibrillation with RVR: Status: Acute Code(s): I48.91 - Unspecified atrial fibrillation (3) Acute diverticulitis: Status: Acute Code(s): K57.92 - Diverticulitis of intestine, part unspecified, without perforation or abscess without bleeding (4) Retroperitoneal bleed: Status: Acute Code(s): R58 - Hemorrhage, not elsewhere classified (5) COPD (chronic obstructive pulmonary disease): Status: Chronic Code(s): J44.9 - Chronic obstructive pulmonary disease, unspecified (6) Anxiety: Status: Acute Code(s): F41.9 - Anxiety disorder, unspecified (7) Hyperlipidemia: Status: Chronic Code(s): E78.5 - Hyperlipidemia, unspecified (8) Depression: Status: Acute Code(s): F32.A - Depression, unspecified (9) GERD (gastroesophageal reflux disease): Status: Acute Code(s): K21.9 - Gastro-esophageal reflux disease without esophagitis (10) BPH (benign prostatic hyperplasia): Status: Acute Code(s): N40.0 - Benign prostatic hyperplasia without lower urinary tract symptoms (11) Coronary artery disease: Status: Acute Code(s): I25.10 - 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 Plan 82 year old male with below past medical history hospitalized for acute diverticulitis, complicated by afib with RVR, retroperitoneal bleed, admitted toTCU with debility, here for rehabilitation, strengthening, prior to discharge home with . * Debility - PT/OT. * Dysphagia - ST. * Pain - Tylenol 1000mg q6 prn pain (1-3), [place] 5/325mg 1 tab q4 prn pain (4- 10). * Bowel - Monitor, diarrhea. * Adult immunization - Administer pneumonia vaccine, covid vaccine, flu vaccine as appropriate. * DVT prophylaxis - On Eliquis. * Ileus - Resolving with IV fluid, magnesium citrate, Promethazine 25mg q4h prn. * COPD - Budesonide 0.5mg neb bid, Levalbuterol 0.63mg neb tid. * Diverticulitis - Finished Augmentin treatment. * Hyperlipidemia - Atorvastatin 10mg qhs. * Atrial fibrillation - Metoprolol succinate 25mg daily, Tikosyn 250mcg bid, Eliquis 5mg bid, monitor cbcd. * Depression - Duloxetine 60mg daily, stable chronic medical terminologist use, GDR not recommended. * Coronary artery disease - Metoprolol succinate 25mg daily, Jardiance 12.5mg daily, NTG 0.4mg sl q5m prn. * BPH - Finasteride 5mg daily, Tamsulosin 0.8mg daily. * Anxiety - Lorazepam 0.5mg qhs, stable chronic medical terminologist use, GDR not recommended. * Skin irritation - Calmoseptine topical 4x/day prn, Eucerin topical bid, Miconazole topical bid. * Neck pain - Methocarbamol 750mg tid, Arthritis compound cream 2 clicks bid. * Orthostatic hypotension - Midodrine 5mg tidcm. * Macular degeneration - Healthy Eyes 1 cap daily. * GERD - Pantoprazole 40mg bid. * Edema - Bumex 1mg daily MWF. Medications at Discharge Home Medications rosuvastatin 5 mg tablet (Crestor) 5 mg PO QDAY cholesterol 07/04/17 cholecalciferol (vitamin D3) 25 mcg (1,000 unit) tablet 25 mcg PO DAILY supplement 05/22/21 metoprolol succinate 25 mg tablet,extended release 24 hr 25 mg PO DAILY AFIB 06/27/21 nitroglycerin 0.4 mg sublingual tablet 0.4 mg sublingual Q5M PRN CP 06/27/21 cyanocobalamin (vitamin B-12) 1,000 mcg/mL injection kit 100 mcg IM QMONTH supplement 03/29/23 dofetilide 250 mcg capsule 250 mcg PO Q12H afib 03/29/23 duloxetine 60 mg capsule,delayed release See Rx Instructions PO DAILY mood 03/29/23 empagliflozin 25 mg tablet (Jardiance) 12.5 mg PO DAILY heart 03/29/23 finasteride 5 mg tablet 5 mg PO DAILY bph 03/29/23 levalbuterol HCl 0.63 mg/3 mL solution for nebulization 0.63 mg inhalation TID copd 03/29/23 midodrine 5 mg tablet 5 mg PO TID blood pressure 03/29/23 vit C 250 mg-vit E 200 unit-zinc ox 12.5 ok-ctljfx-brsuta-zeax capsule (ICaps AREDS2) 1 cap PO DAILY supplement 03/29/23 budesonide 0.5 mg/2 mL suspension for nebulization 0.5 mg (2 mL) inhalation BID.RT Asthma #0 mL 04/01/23 lorazepam 0.5 mg tablet 0.5 mg PO QHS Anxiety #5 tabs 04/01/23 acetaminophen 500 mg tablet 1,000 mg (2 x 500 mg) PO Q6H PRN PRN Pain Score 1-3 #0 tabs 04/10/23 apixaban 5 mg tablet (Eliquis) 5 mg PO BID #0 tabs 04/10/23 bumetanide 0.5 mg tablet 1 mg (2 x 0.5 mg) PO MOWEFR #0 tabs 04/10/23 hydrocodone-acetaminophen 5-325mg 5mg-325mg 1 tab PO Q4H PRN PRN Pain Score 4- 10#0 tabs 04/10/23 methocarbamol 750 mg tablet 750 mg PO TID Muscle Relaxer 30 days #90 tabs 04/10/23 pantoprazole 40 mg tablet,delayed release 40 mg PO BID 30 days #60 tabs 04/10/23 pantoprazole 40 mg tablet,delayed release 40 mg PO BID GERD 30 days #60 tabs 04/10/23 tamsulosin 0.4 mg capsule 0.8 mg (2 x 0.4 mg) PO QHS 30 days #60 caps 04/10/23 tamsulosin 0.4 mg capsule (Flomax) 0.8 mg (2 x 0.4 mg) PO QHS BPH 30 days #60 caps 04/10/23 Hospital Course Operations None Procedures None Summary of Care Provided Minutes Spent on Discharge: 35 Hospital Course: 82 year old male with below past medical history hospitalized for acute diverticulitis, complicated by afib with RVR, retroperitoneal bleed, admitted toTCU with debility, here for rehabilitation, strengthening, prior to discharge home with . Discharge home with 04/14/2023, [facility] PT/OT/SN. Physical Exam Const alert General Appearance: cooperative HEENT normocephalic Eyes PERRL and EOMs intact bilaterally Neck supple, no JVD and no carotid bruits Resp normal respiratory effort, normal air movement and clear to auscultation bilaterally Cardio regular rate and regular rhythm GI normal to inspection, nondistended, normoactive bowel sounds, non-tender and non-distended Extremity normal capillary refill General Extremity: Negative for edema Skin no rashes or lesions noted General Skin Exam: no breakdown Psych affect normal Appearance: appropriate Weight / BMI Weight Weight: 76.884 kg Body Mass Index (BMI) 25.7 ABG / Lab / Microbiology Data 04/10/23 05:31 04/09/23 05:27 Laboratory: Laboratory Results - last 24 hr 04/10/23 05:31: Hgb 9.7 L, Hct 32.1 L Microbiology: Microbiology 04/07/23 21:30 Urine, Catheterized Urine Culture - Final Culture exhibits no growth. D/C Instructions Discharge Diet: No restrictions Discharge Activity: Return to Normal Activity, May Shower and Use Walker Weight Bearing Status: Weight bearing as tolerated Call your doctor if you observe: Fever of 101 or Higher, Inability to urinate, Inability to have a bowel movement, Shortness of breath, Dizziness, Fainting spells, Swelling in the ankles, Chest pain and Uncontrolled pain Additional Instructions: Discharge home with 04/14/2023, [facility] PT/OT/SN. Meaningful Use Info Meaningful Use Diagnoses (Choose all that apply): None applicable Discharge Plan Admission Admit Date/Time: 04/01/23 18:23 Primary Reason for Your Visit: Debility. Attending Provider: Parrish Shah Chi Primary Care Provider: Malissa Rascon Instructions Additional Instructions / Restrictions: Discharge home with 04/14/2023, [facility] PT/OT/SN. Discharge Orders/Prescriptions Prescriptions: New acetaminophen 500 mg Tablet 1,000 mg PO Q6H PRN PRN (Reason: Pain Score 1-3) Qty: 0 0RF Eliquis 5 mg Tablet 5 mg PO BID Qty: 0 0RF hydrocodone-acetaminophen 5-325 mg Tablet 1 tab PO Q4H PRN PRN (Reason: Pain Score 4-10) Qty: 0 0RF bumetanide 0.5 mg Tablet 1 mg PO MOWEFR Qty: 0 0RF tamsulosin 0.4 mg Capsule 0.8 mg PO QHS 30 Days Qty: 60 0RF pantoprazole 40 mg Tablet,Delayed Release (Dr/Ec) 40 mg PO BID 30 Days Qty: 60 0RF Continued rosuvastatin [Crestor] 5 mg tablet 5 mg PO QDAY metoprolol succinate 25 mg tablet extended release 24 hr 25 mg PO DAILY nitroglycerin 0.4 mg tablet, sublingual 0.4 mg sublingual Q5M PRN (Reason: CP) Rx Instructions: do not exceed 3 doses per episode dofetilide 250 mcg capsule 250 mcg PO Q12H Patient Comments: TAKE 1 CAPSULE BY MOUTH EVERY 12 HOURS midodrine 5 mg tablet 5 mg PO TID Patient Comments: take 1 tablet by mouth three times a day finasteride 5 mg tablet 5 mg PO DAILY Patient Comments: take 1 tablet by mouth once daily duloxetine 60 mg capsule,delayed release(DR/EC) See Rx Instructions PO DAILY Rx Instructions: 60 mg (2 caps) orally daily; Jardiance 25 mg tablet 12.5 mg PO DAILY levalbuterol HCl 0.63 mg/3 mL solution for nebulization 0.63 mg INHALATION TID Patient Comments: USE 1 VIAL 3 TIMES A DAY ICaps AREDS2 250 mg-200 unit -12.5 mg-1 mg capsule 1 cap PO DAILY cyanocobalamin (vitamin B-12) 1,000 mcg/mL kit 100 mcg IM QMONTH lorazepam 0.5 mg Tablet 0.5 mg PO QHS Qty: 5 0RF budesonide 0.5 mg/2 mL Suspension For Nebulization 0.5 mg inhalation BID.RT Qty: 0 0RF methocarbamol 750 mg tablet 750 mg PO TID 30 Days Qty: 90 0RF Rx Instructions: for neck pain tamsulosin [Flomax] 0.4 mg capsule 0.8 mg PO QHS 30 Days Qty: 60 0RF pantoprazole 40 mg tablet,delayed release (DR/EC) 40 mg PO BID 30 Days Qty: 60 0RF Patient Comments: take 1 tablet by mouth twice a day take before meals Rx Instructions: Before meals cholecalciferol (vitamin D3) 25 mcg (1,000 unit) tablet 25 mcg PO DAILY Discontinued acetaminophen 325 mg Tablet 650 mg PO Q4H PRN PRN (Reason: Fever, pain 1-10/10) Qty: 1 0RF hydrocodone-acetaminophen 5-325 mg Tablet 2 tab PO Q6H PRN PRN (Reason: Pain Score 1-10) 3 Days Qty: 12 0RF menthol-zinc oxide [Calmoseptine] 0.44-20.6 % Ointment 1 applic topical 4X/DAY PRN (Reason: skin breakdown/irritation) Qty: 0 0RF Protocol: *Topical Application Instructions APPLICATION INSTRUCTIONS: apply to affected region amoxicillin-pot clavulanate [Augmentin] 500-125 mg tablet 1 tab PO TID Qty: 21 0RF Rx Instructions: start 04/01/23 guaifenesin [Mucinex] 600 mg tablet extended release 12hr 600 mg PO BID Referrals / Follow Up: Malissa Rascon MD [Primary Care Provider] - Disposition Disposition (needs filled in before D/C Order can be placed): Home Health Service 04/10/23 1428 <Electronically signed by Parrish Shah MD> Cosigner Signature (if applicable): CC: Dr. Malissa Rascon MD; Dr. Parrish Shah MD~ Signed [facility] Work Phone: [phone]) 497-494401-25-2024 Progress note Author Parrish Pablo [facility] April 09, 2023 8:17pm Note Date/Time April 09, 2023 8 :08pm [facility] Medical Records Department [address] [place] [address] Progress Note - [facility] 04/09/232004 MR#: [id number] Acct: [id number] Name: HIRAM DORAN Rep #:[id number] : 1940 82 From: Parrish Shah MD PCP: Dr. Malissa Rascon MD Status:ADM IN Location: [place] [address]-1 Subjective Subjective Resident seen, examined. , daughter, and daughter Lala by phone on speaker. 2 days ago, Mina had nausea, vomiting, decreased appetite, X-ray of abdomen showed mild ileus, enteritis. I also noted stool in the rectum. Resident was given Magnesium citrate by mouth, he refused soap suds enema, and IV normal saline overnight. Resident is doing better today, tolerating diet, nolonger nauseus. Objective Data Objective Data Vital Signs: Vital Signs Temp Pulse Resp BP Pulse Ox O2 Del Method 98.5 F 87 18 92/53 L 93 Room Air 04/09/23 08:00 04/09/23 10:30 04/09/23 08:00 04/09/23 10:30 04/09/23 08:00 04/09/23 08:00 Oxygen Delivery Method Room Air Weight: 76.884 kg Body Mass Index (BMI) 25.7 Intake & Output: Intake and Output for Last 24 Hours 04/07/23 04/08/23 04/09/23 23:59 23:59 23:59 Intake Total 360 / 360 1820 / 1820 720 / 720 Output Total 250 / 250 Balance 110 / 110 1820 / 1820 720 / 720 Lab / Micro Data 04/09/23 05:27 04/09/23 05:27 Labs: Laboratory Results - last 24 hr 04/09/23 05:27: WBC 7.3, RBC 3.18 L, Hgb 9.5 L, Hct 31.2 L, MCV 98.1 H, MCH 29.9, MCHC 30.4 L, RDW Std Deviation 53.7 H, RDW Coeff of David 14.9 H, Plt Count 373, MPV 9.2, Immature Gran % (Auto) 4.100 H, Neut % (Auto) 66.3, Lymph % (Auto)11.9 L, Morrill % (Auto) 14.4 H, Eos % (Auto) 1.9, Baso % (Auto) 1.4 H, Absolute Neuts (auto) 4.9, Absolute Lymphs (auto) 0.87, Nucleated RBC % 0, Sodium 136, Potassium 3.9, Chloride 103, Carbon Dioxide 30.0, Anion Gap 3 L, BUN 12, Creatinine 0.84, Estim Creat Clear Calc 63.33, Est GFR (MDRD) Af Amer 111, Est GFR (MDRD) Non-Af 92, BUN/Creatinine Ratio 14.2, Glucose 98, Calcium 8.5 Micro: Microbiology 04/07/23 21:30 Urine, Catheterized Urine Culture - Final Culture exhibits no growth. Physical Exam Const alert General Appearance: cooperative HEENT normocephalic Eyes PERRL and EOMs intact bilaterally Neck supple, no JVD and no carotid bruits Resp normal respiratory effort, normal air movement and clear to auscultation bilaterally Cardio regular rate and regular rhythm GI non-tender GI Narrative: Distended, but soft, no pain. Palpation: tender LLQ Extremity normal capillary refill General Extremity: Negative for edema Skin no rashes or lesions noted General Skin Exam: no breakdown Psych affect normal Appearance: appropriate Assessment & Plan Assessment/Plan (1) Debility: (2) Atrial fibrillation with RVR: (3) Acute diverticulitis: (4) Retroperitoneal bleed: (5) COPD (chronic obstructive pulmonary disease): (6) Anxiety: (7) Hyperlipidemia: (8) Depression: (9) GERD (gastroesophageal reflux disease): (10) BPH (benign prostatic hyperplasia): (11) Coronary artery disease: PLAN: Plan 82 year old male with below past medical history hospitalized for acute diverticulitis, complicated by afib with RVR, retroperitoneal bleed, admitted to TCU with debility, here for rehabilitation, strengthening, prior to discharge home with . * Debility - PT/OT. * Dysphagia - ST. * Pain - Tylenol 1000mg q6 prn pain (1-3), Columbia 5/325mg 1 tab q4 prn pain (4- 10). * Bowel - Monitor, diarrhea. * Adult immunization - Administer pneumonia vaccine, covid vaccine, flu vaccine as appropriate. * DVT prophylaxis - On Eliquis. * Ileus - Resolving with IV fluid, magnesium citrate, Promethazine 25mg q4h prn. * COPD - Budesonide 0.5mg neb bid, Levalbuterol 0.63mg neb tid. * Diverticulitis - Finished Augmentin treatment. * Hyperlipidemia - Atorvastatin 10mg qhs. * Atrial fibrillation - Metoprolol succinate 25mg daily, Tikosyn 250mcg bid, Eliquis 5mg bid, monitor cbcd. * Depression - Duloxetine 60mg daily, stable chronic fdc use, GDR not recommended. * Coronary artery disease - Metoprolol succinate 25mg daily, Jardiance 12.5mg daily, NTG 0.4mg sl q5m prn. * BPH - Finasteride 5mg daily, Tamsulosin 0.8mg daily. * Anxiety - Lorazepam 0.5mg qhs, stable chronic fdc use, GDR not recommended. * Skin irritation - Calmoseptine topical 4x/day prn, Eucerin topical bid, Miconazole topical bid. * Neck pain - Methocarbamol 750mg tid, Arthritis compound cream 2 clicks bid. * Orthostatic hypotension - Midodrine 5mg tidcm. * Macular degeneration - Healthy Eyes 1 cap daily. * GERD - Pantoprazole 40mg bid. * Edema - Bumex 1mg daily MWF. 04/09/232016 <Electronically signed by Parrish Shah MD> Cosigner Signature (if applicable): CC: ~ Signed [facility] Work Phone: [phone]) 581-748401-18-2024 Progress note Author Parrish [facility] April 02, 2023 4:42pm Note Date/Time April 02, 2023 3 :51pm [facility] Medical Records Department [address] [place] [id number] Progress Note - Pharmacy 04/02/23 1549 MR#: [id number] Acct: [id number] Name: HIRAM DORAN Rep #:[id number] : 1940 82 From: Nydia Kulkarni PCP: Dr. Malissa Rascon MD Status:ADM IN Location: [place] [address] Documented by User: Nydia Kulkarni 04/02/23 16:32 TCU RX Drug Regimen Review Subjective/Objective Subjective/Objective: Subjective: TCU Admission. 82 YOM presented to the ER with palpitations. Hospitalized for acute diverticulitis, complicated by afib with RVR, retroperitoneal bleed. Admitted to TCU with debility for strengthening and rehabilitation. Objective: Allergies tramadol Allergy (Unknown, Verified 04/02/23 01:04) PT UNSURE OF REACTION pt and daughter unsure of reaction Current Medications Generic Name Dose Route Start Last Admin Trade Name Freq PRN Reason Stop Dose Admin Acetaminophen 1,000 mg 04/01/23 19:56 04/02/23 11:21 Acetaminophen 500 Mg Tablet PO 1,000 mg Q6H PRN PRN Administration Pain Score 1-3 Hydrocodone Bitart/Acetaminophen 1 tablet 04/02/23 07:39 04/02/23 12:33 Hydrocodone Bitartrate/Apap 5/325 Tablet PO 1 tablet Q4H PRN PRN Administration Pain Score 4-10 Amoxicillin/Clavulanate Potassium 500 mg 04/01/23 22:00 04/02/23 15:04 Amox/Clavulanate 500 Mg Tablet PO 04/08/23 14:01 500 mg TID GIOVANNI Administration Apixaban 5 mg 04/02/23 10:00 04/02/23 09:10 Apixaban 5 Mg Tablet PO 5 mg BID GIOVANNI Administration Atorvastatin Calcium 10 mg 04/01/23 22:00 04/01/23 22:53 Atorvastatin Calcium 10 Mg Tablet PO 10 mg QHS GIOVANNI Administration Budesonide 0.5 mg 04/01/23 18:45 04/02/23 08:00 Budesonide Respules 0.5 Mg/2 Ml Ampul.Neb. INHALATION 0.5 mg BID.RT GIOVANNI Administration Calamine/Phenol 1 applic 04/01/23 18:43 Menthol/Lanolin/Calamine/Znox 113 Gm Tube TOPICAL 4X/DAY PRN skin breakdown/irritation Protocol Calamine/Phenol 1 applic 04/02/23 10:00 04/02/23 09:18 Menthol/Lanolin/Calamine/Znox 113 Gm Tube TOPICAL 1 applic BID GIOVANNI Administration Protocol Compound Med 2 click 04/02/23 10:00 04/02/23 09:10 Arthritis Pain Compound 60 Click Tube TOPICAL 2 click BID GIOVANNI Administration Protocol Dofetilide 250 mcg 04/01/23 22:00 04/02/23 09:07 Dofetilide 250 Mcg Capsule PO 250 mcg BID GIOVANNI Administration Duloxetine HCl 60 mg 04/02/23 10:00 04/02/23 09:11 Duloxetine Hcl 60 Mg Capsule PO 60 mg DAILY GIOVANNI Administration Empagliflozin 12.5 mg 04/02/23 10:00 04/02/23 09:05 Empagliflozin 25 Mg Tablet PO 12.5 mg DAILY GIOVANNI Administration Finasteride 5 mg 04/02/23 10:00 04/02/23 09:06 Finasteride 5 Mg Tablet PO 5 mg DAILY GIOVANNI Administration Levalbuterol HCl 0.63 mg 04/01/23 22:00 04/02/23 07:55 Levalbuterol Hcl 0.63 Mg/3 Ml Vial.Neb INHALATION 0.63 mg TID.RT GIOVANNI Administration Lorazepam 0.5 mg 04/01/23 22:00 04/01/23 22:41 Lorazepam 0.5 Mg Tablet PO 0.5 mg QHS GIOVANNI Administration Methocarbamol 750 mg 04/01/23 22:00 04/02/23 15:04 Methocarbamol 750 Mg Tablet PO 750 mg TID GIOVANNI Administration Metoprolol Succinate 25 mg 04/02/23 10:00 04/02/23 09:07 Metoprolol(Xl)Succ 25 Mg Tablet PO 25 mg DAILY GIOVANNI Administration Protocol Miconazole Nitrate 1 applic 04/02/23 10:00 04/02/23 09:19 Miconazole Nitrate 43 Gm Bottle TOPICAL 1 applic BID GIOVANNI Administration Protocol Midodrine 5 mg 04/02/23 07:45 04/02/23 12:36 Midodrine Hcl 5 Mg Tablet PO 5 mg TIDCM GIOVANNI Administration Multi-Ingredient Cream 1 applic 04/02/23 10:00 04/02/23 09:19 Petrolatum 33% Tube TOPICAL 1 applic BID GIOVANNI Administration Protocol Multivitamins/Minerals 1 cap 04/02/23 10:00 04/02/23 09:05 Multivitamin (Healthy Eyes) Capsule PO 1 cap DAILY GIOVANNI Administration Nitroglycerin 0.4 mg 04/01/23 19:31 Nitroglycerin (Inpatient Use) 0.4 Mg Tab.Subl SL Q5M PRN CARDIAC/CHEST PAIN Pantoprazole Sodium 40 mg 04/01/23 22:00 04/02/23 09:06 Pantoprazole Sodium 40 Mg Tablet PO 40 mg BID GIOVANNI Administration Sodium Chloride 10 - 40 ml 04/02/23 04:19 0.9% Saline Lock 10 Ml Syringe IV UD PRN SALINE FLUSH Tamsulosin HCl 0.8 mg 04/01/23 22:00 04/01/23 22:53 Tamsulosin Hcl 0.4 Mg Capsule PO 0.8 mg QHS GIOVANNI Administration Tuberculin PPD 0.1 ml 04/09/23 10:00 Tuberculin,Purif.Prot.Deriv. 50 Tu/Ml Vial ID 04/09/23 10:01 X1 ONE Problem List (Updated 04/01/23 @ 19:[address] Parrish Shah MD) Coronary artery disease (Acute) BPH (benign prostatic hyperplasia) (Acute) GERD (gastroesophageal reflux disease) (Acute) Depression (Acute) Anxiety (Acute) Retroperitoneal bleed (Acute) Acute diverticulitis (Acute) Atrial fibrillation with RVR (Acute) Debility (Acute) COPD (chronic obstructive pulmonary disease) (Chronic) Hyperlipidemia (Chronic) Vital Signs Temp Pulse Resp BP Pulse Ox O2 Del Method 97.3 F L 94 19 H 93/55 L 92 Room Air 04/01/23 18:58 04/02/23 09:07 04/02/23 07:55 04/02/23 09:07 04/02/23 06:26 04/02/23 07:55 Oxygen Delivery Method Room Air Weight: 77.564 kg Body Mass Index (BMI) 25.9 Sodium 137 mmol/L (136-145) 04/02/23 05:32 Potassium 4.5 mmol/L (3.5-5.1) 04/02/23 05:32 Chloride 107 mmol/L (98-107) 04/02/23 05:32 Carbon Dioxide 26.0 mmol/L (21.0-32.0) 04/02/23 05:32 Anion Gap 4 (5-15) L 04/02/23 05:32 BUN 7 mg/dL (7-18) 04/02/23 05:32 Creatinine 0.81 mg/dL (0.70-1.30) 04/02/23 05:32 Est GFR (MDRD) Af Amer 117 mL/min (>60) 04/02/23 05:32 Est GFR (MDRD) Non-Af 97 mL/min (>60) 04/02/23 05:32 BUN/Creatinine Ratio 8.7 RATIO (10-20) L 04/02/23 05:32 Glucose 115 mg/dL (74-106) H 04/02/23 05:32 Assessment/Plan: 1. Pain/neck pain: acetaminophen 1000mg PO Q6H PRN pain 1-3, Columbia 5/325mg 1T POQ4H PRN pain 4-10, methocarbamol 750mg PO TID and arthritis compound 2 clicks topical BID. Resident has had 1 dose of acetaminophen (pain of 2 in neck/shoulder) and 2 doses of Columbia (pain of 4 and 9 in back/neck). Please continue to monitor for increased pain, PRN usage, constipation, anticholinergicside effects (BEERs medication for methocarbamol) and respiratory depression. 2. Diverticulitis: Augmentin 500mg PO TID thru 04/08/23. Please continue to monitor for S/S of infection, diarrhea and renal function. 3. Atrial fibrillation/CAD: metoprolol succinate 25mg PO daily, dofetilide 250mcg PO BID, empagliflozin 12.5mg PO daily, apixaban 5mg PO BID and nitroglycerin 0.4mg SL Q5M PRN chest pain. No PRN doses have been given. Please continue to monitor BP (last 95/55), HR (last 94), S/S of hypoglycemia, renal function (BEERs medication for dofetilide), QTc (last 458 ms 03/31 and 452 ms 03/30, black box warning), S/S of bleeding, hemoglobin (last 9.5g/dL), chest painand PRN usage. Please consider adding hold parameters for metoprolol as the lastBP was 95/55. Thanks. 4. Orthostatic hypotension: midodrine 5mg PO TIDCM. Please continue to monitor BP (last 95/55). 5. COPD: budesonide 0.5mg inhalation BID and levalbuterol 0.63mg inhalation TID.RT. Please continue to monitor for shortness of breath, HR, anxiety, and thrush. Please rinse mouth with water and spit following budesonide administration. 6. Hyperlipidemia: atorvastatin 10mg PO QHS. Please consider ordering a lipid panel as the last panel is from 11/2019. Thanks. Please continue to monitor LFTs (lat 04/02/23) and muscle pain. 7. BPH: finasteride 5mg PO daily and tamsulosin 0.8mg PO daily. Please continue to monitor for S/S of BPH, rash and BP (tamsulosin could be contributing to low blood pressures). 8. GERD: pantoprazole 40mg PO BID. Please continue to monitor for S/S of GERD, diarrhea (BEERs medication, pt having diarrhea but it seems to be associated with dofetilide) and magnesium (last 03/29/23). 9. Macular degeneration: healthy eyes 1 capsule by mouth once daily. Please continue to monitor. Assessment/Plan for indications treated with psychotropic medications: 1. Depression: duloxetine 60mg PO daily. Please see physician note regarding GDR. Please continue to monitor for suicidal ideation (black box warning), sodium (last 137mmol/L), falls/fractures (BEERs medication) and renal function (BEERs medication). 2. Anxiety: lorazepam 0.5mg PO QHS. Please see physician note regarding GDR. Please continue to monitor for dementia/delirium (BEERs medication), falls/fractures (BEERs medication) and confusion. Medical chart and medication regimen reviewed. The following medication irregularities or issues were identified: 1. Metoprolol succinate 25mg PO daily. Please consider adding hold parameters for metoprolol as the last BP was 95/55. Thanks. 2. Atorvastatin 10mg PO QHS. Please consider ordering a lipid panel as the last panel is from 11/2019. Thanks. Date Date of Note:: 04/02/23 Documented by User: Dr. Parrish Shah MD 04/02/23 16:42 TCU RX Drug Regimen Review Provider Comments Provider responsibility Provider Comments to Recommendations by Pharmacy: Agree 04/02/23 1632 <Electronically signed by Nydia Kulkarni> Nydia Kulkarni Cosigner Signature (if applicable): 04/02/23 1642 <Electronically signed by Parrish Shah MD> CC: ~ Signed [facility] Work Phone: 1(422) 888-367101-18-2024 History and physical note Author Parrish Shah [facility] April 02, 2023 7:46am Note Date/Time April 01, 2023 7 :54pm [facility] Medical Records Department [address] [place] [address] History & Physical Exam 04/01/231948 MR#: [id number] Acct: [id number] Name: HIRAM DORAN EVIE Rep #:[id number] : 1940 82 From: Parrish Shah MD PCP: Dr. Malissa Rascon MD Status:ADM IN Location: [place] HPI - General General Date of Admission: 04/01/23 Date of Service: 04/02/23 Chief Complaint: Here for rehabilitation. HPI Narrative 03/29/2023 HIRAM DORAN, is a 82 Male who presents to [facility] ED palpitations. Weakness. Recent [facility] admission for AFIB with RVR, pneumonia. Coreg, Digoxin, Sotalol for AFIB. Tikosyn gave him diarrhea. 03/23/2023 Cardiac cryoablation for AFIB. Postop complicated by retroperitoneal bleed, pneumonia. Vancomycin, Doxycycline for pneumonia. Tikosyn restarted, diarrhea returned, Eliquis held. Failed home discharge. CT chest NEGATIVE PE, CT A/P left retroperitoneal hematoma, diverticulosis. 03/29/2023 Admit to Hospital. 03/30/2023 Vicodin for neck pain. X-ray C spine showed arthritis. IV ATB's for acute diverticulitis. BB, Tikosyn for AFIB. PT/OT SNF. Eliquis for AFIB held 2/2 retroperitoneal bleed. 03/31/2023 AFIB with RVR, briefly, resolved. Hemoglobin 9.1. Pre-[facility]ERT SNF. Neck pain improved. 04/01/2023 Admit to TCU with debility, here for rehabilitation, strengthening, prior to discharge home with . [facility] Medical History (Updated 04/01/23 @ 19:[address] Parrish Shah MD) 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 BPH (benign prostatic hyperplasia) Chronic diarrhea COPD (chronic obstructive pulmonary disease) GERD (gastroesophageal reflux disease) HFrEF (heart failure with reduced ejection fraction) Hyperlipidemia Obstructive sleep apnea Paroxysmal atrial fibrillation Pulmonary fibrosis Retroperitoneal hematoma Sinus node dysfunction SVT (supraventricular tachycardia) Home Medications rosuvastatin 5 mg tablet (Crestor) 5 mg PO QDAY cholesterol 07/04/17 [History Last Taken 03/28/23] cholecalciferol (vitamin D3) 25 mcg (1,000 unit) tablet 25 mcg PO DAILY supplement 05/22/21 [History Last Taken 03/28/23] guaifenesin 600 mg tablet, extended release 12 hr (Mucinex) 600 mg PO BID cough 05/22/21 [History Last Taken 04/01/23] tamsulosin 0.4 mg capsule (Flomax) 0.8 mg PO QHS BPH 05/22/21 [History Last Taken 03/31/23] metoprolol succinate 25 mg tablet,extended release 24 hr 25 mg PO DAILY AFIB 06/27/21 [History Last Taken 04/01/23] nitroglycerin 0.4 mg sublingual tablet 0.4 mg sublingual Q5M PRN CP 06/27/21 [History Last Taken Unknown] cyanocobalamin (vitamin B-12) 1,000 mcg/mL injection kit 100 mcg IM QMONTH supplement 03/29/23 [History Last Taken Unknown] dofetilide 250 mcg capsule 250 mcg PO Q12H afib 03/29/23 [History Last Taken 04/01/23] duloxetine 60 mg capsule,delayed release See Rx Instructions PO DAILY mood 03/29/23 [History Last Taken 03/28/23] empagliflozin 25 mg tablet (Jardiance) 12.5 mg PO DAILY heart 03/29/23 [History Last Taken 03/28/23] finasteride 5 mg tablet 5 mg PO DAILY bph 03/29/23 [History Last Taken 03/28/23] levalbuterol HCl 0.63 mg/3 mL solution for nebulization 0.63 mg inhalation TID copd 03/29/23 [History Last Taken 04/01/23] midodrine 5 mg tablet 5 mg PO TID blood pressure 03/29/23 [History Last Taken 04/01/23] pantoprazole 40 mg tablet,delayed release 40 mg PO BID GERD 03/29/23 [History Last Taken Unknown] vit C 250 mg-vit E 200 unit-zinc ox 12.5 pm-jyrgtj-aiflce-zeax capsule (ICaps AREDS2) 1 cap PO DAILY supplement 03/29/23 [History Last Taken 03/28/23] acetaminophen 325 mg tablet 650 mg (2 x 325 mg) PO Q4H PRN PRN Fever, pain 1- 12/23 #1 TAB 04/01/23 [Rx Last Taken 03/30/23] amoxicillin 500 mg-potassium clavulanate 125 mg tablet (Augmentin) 1 tab PO TID Antibiotic #21 tabs 04/01/23 [Rx Last Taken Unknown] budesonide 0.5 mg/2 mL suspension for nebulization 0.5 mg (2 mL) inhalation BID.RT Asthma #0 mL 04/01/23 [Rx Last Taken 04/01/23] hydrocodone-acetaminophen 5-325mg 5mg-325mg 2 tab PO Q6H PRN PRN Pain Score 1- 103 days #12 tabs 04/01/23 [Rx Last Taken 04/01/23] lorazepam 0.5 mg tablet 0.5 mg PO QHS Anxiety #5 tabs 04/01/23 [Rx Last Taken 03/31/23] menthol 0.44 %-zinc oxide 20.6 % topical ointment (Calmoseptine) 1 applic topical 4X/DAY PRN skin breakdown/irritation #0 grams 04/01/23 [Rx Last Taken Unknown] methocarbamol 750 mg tablet 750 mg PO TID Muscle Relaxer #1 TAB 04/01/23 [Rx Last Taken Unknown] Allergy/AdvReac Type Severity Reaction Status Date / Time tramadol Allergy Unknown PT UNSURE Verified 04/02/23 01:04 OF REACTION Family History Mother , Age 64 from Emphysema COPD (chronic obstructive pulmonary disease) Blood disorder Father No problems noted. Surgical History History of ankle surgery History of appendectomy History of back surgery History of inguinal hernia repair History of left heart catheterization (05/27/21) History of tonsillectomy History of umbilical hernia repair S/P ablation of atrial fibrillation Social History household members: spouse housing: house Smoking Status: Former smoker how long ago did patient quit smokin years ago alcohol intake: current alcohol intake frequency: holidays/special occasions only substance use type: does not use caffeine: Yes Type: coffee Number of servings: 2 ROS Constitutional Constitutional: Denies chills, fever(s) or weight gain ENT HEENT: Denies headache(s), nasal congestion or nasal discharge Cardiovascular Cardiovascular: Denies chest pain or palpitations Respiratory/Chest Respiratory/Chest: Denies cough, excessive phlegm production or shortness of breath with exertion Gastrointestinal Gastrointestinal: Denies abdominal pain, nausea or vomiting Genitourinary Genitourinary: Denies dysuria Musculoskeletal Musculoskeletal: Denies joint pain or joint swelling Integumentary Integumentary: Denies rash or wounds Neurologic Neurologic: Denies focal weakness, numbness or tingling Psychiatric Psychiatric: Denies anxiety, auditory hallucinations, depression, homicidal ideation or suicidal ideation Physical Exam Const alert General Appearance: cooperative HEENT normocephalic Eyes PERRL and EOMs intact bilaterally Neck supple, no JVD and no carotid bruits Resp normal respiratory effort, normal air movement and clear to auscultation bilaterally Cardio regular rate and regular rhythm GI normal to inspection, nondistended, normoactive bowel sounds, non-tender and non-distended GI Narrative: LLQ abdominal pain mild. Palpation: tender LLQ Extremity normal capillary refill General Extremity: Negative for edema Skin no rashes or lesions noted General Skin Exam: no breakdown Psych affect normal Appearance: appropriate Results Lab / Micro Data 04/02/23 05:32 04/02/23 05:32 Assessment & Plan Assessment/Plan (1) Debility: (2) Atrial fibrillation with RVR: (3) Acute diverticulitis: (4) Retroperitoneal bleed: (5) COPD (chronic obstructive pulmonary disease): (6) Anxiety: (7) Hyperlipidemia: (8) Depression: (9) GERD (gastroesophageal reflux disease): (10) BPH (benign prostatic hyperplasia): (11) Coronary artery disease: PLAN: Plan 82 year old male with below past medical history hospitalized for acute diverticulitis, complicated by afib with RVR, retroperitoneal bleed, admitted toT with debility, here for rehabilitation, strengthening, prior to discharge home with . * Debility - PT/OT. * Dysphagia - ST. * Pain - Tylenol 1000mg q6 prn pain (1-3), Columbia 5/325mg 1 tab q4 prn pain (4- 10). * Bowel - Monitor, diarrhea. * Adult immunization - Administer pneumonia vaccine, covid vaccine, flu vaccine as appropriate. * DVT prophylaxis - Hold, retroperitoneal bleed. * COPD - Budesonide 0.5mg neb bid, Albuterol 2.5mg neb tidrt. * Diverticulitis - Augmentin 500mg tid thru 04/08/2023. * Hyperlipidemia - Atorvastatin 10mg qhs. * Atrial fibrillation - Metoprolol succinate 25mg daily, Tikosyn 250mcg bid, Hemoglobin 9.5, increasing, restart Eliquis 5mg bid, monitor cbcd. * Depression - Duloxetine 60mg daily, stable chronic fdc use, GDR not recommended. * Coronary artery disease - Metoprolol succinate 25mg daily, Jardiance 12.5mg daily, NTG 0.4mg sl q5m prn. * BPH - Finasteride 5mg daily, Tamsulosin 0.8mg daily. * Anxiety - Lorazepam 0.5mg qhs, stable chronic fdc use, GDR not recommended. * Skin irritation - Calmoseptine topical 4x/day prn. * Neck pain - Methocarbamol 750mg tid, Arthritis compound cream 2 clicks bid. * Orthostatic hypotension - Midodrine 5mg tidcm. * Macular degeneration - Healthy Eyes 1 cap daily. * GERD - Pantoprazole 40mg bid. 04/02/23 0719 <Electronically signed by Parrish Shah MD> Cosigner Signature (if applicable): CC: Dr. Malissa Rascon MD; Dr. Parrish Shah MD~ Signed [facility] Work Phone: [phone]) 106-569201-17-2024 Discharge summary Author [facility] April 01, 2023 4:54pm Note Date/Time April 01, 2023 4 :17pm [facility] Medical Records Department [address] [place] [address] Transfer to [facility] MR#: [id number] Acct: [id number] Name: HIRAM DORAN Rep #:[id number] : 1940 82 From: Liban Wilhelm DO PCP: Dr. Malissa Rascon MD Status:ADM IN Certification of patient admission REQUIRED AT TIME OF ADMISSION. I CERTIFY THAT POST-HOSPITAL F SERVICES ARE REQUIRED TO BE GIVEN ON AN IN-PATIENT BASIS BECAUSE OF THE ABOVE NAMED PATIENT'S NEED FOR JAIL CARE ON A CONTINUING BASIS FOR THE CONDITION(S) FOR WHICH HE/SHE WAS RECEIVING IN-PATIENT HOSPITAL SERVICES PRIOR TO HIS/HER TRANSFER TO THE [facility]. 04/01/23 1654<Electronically signed by Liban Wilhelm DO> Diet Diet Order/Speech Therapy: 03/31/23 12:49 Diet: Regular - General Food consistency:: Soft & Bite Sized Liquid Consistency:: Regular/Thin Type of Dietary Supplement:: Ensure Clear Is pt able to select menu?: Yes Diet Comments: 8oz ensure clear w/ breakfast and dinner tray Routine Orders/Code Status Routine Lab Work: CBC (04/02/23) Code Status: Full Code Therapies Weight Bearing: Full weight bearing Physical Therapy: Eval and Treat Occupational Therapy: Eval and Treat Problem/Diagnosis (1) Paroxysmal atrial fibrillation: Status: Chronic Code(s): I48.0 - Paroxysmal atrial fibrillation (2) Neck pain: Status: Acute Code(s): M54.2 - Cervicalgia Plan 1. Acute diverticulitis-continue IV antibiotics at this time, monitor CBC #2 paroxysmal atrial fibrillation-patient is currently on Tikosyn and beta- megan. He remains in sinus rhythm with PVCs #3 generalized debility secondary to multiple medical problems-patient will needshort-term placement in a shelter facility #4 neck pain-possibly secondary to muscle spasm with overlying mild degenerativedisc disease of the cervical spine-patient will remain on [place] 1-2 every 6 hours as needed for pain. Patient does not complain of any radicular pain so I do not think an MRI of the neck is necessary at this time. #5 recent acute blood loss anemia from retroperitoneal bleed-patient remains offof anticoagulation at this time, hemoglobin dropped slightly from admission, CBCwill be rechecked tomorrow #6 chronic obstructive pulmonary disease without exacerbation-pulse ox will be monitored, patient is now on no oxygen #7 coronary artery disease-this is being treated medically at this time #8 hyperlipidemia-patient is on a statin Total clinical time spent by myself addressing the patient's medical issues, reviewing all of his data, and collaborating with patient's care team: 35- minutes Allergies/Procedures Done in Hospital Allergies No Known Allergies Allergy (Verified 01/31/22 15:05) Procedures: None Type of Care/Length of Stay Estimated LOS: Convalescent Care Less Than 30 days Type of Care Needed: Skilled Rehab Potential: Good Prognosis: Good Additional Orders/Day of Discharge H&P will serve as current which was dated: 03/29/23 Day of Discharge: 04/01/23 Dietary and Speech Recommendations Dietitian Recommendations/Changes: Recommend advance diet as tolerated to cardiac. Will add 240mL ensure clear BID w/ breakfast and dinner trays. Adjust ONS as diet advanced and PO better established with meals. Discharge Plan Admission Admit Date/Time: 03/29/23 13:11 Primary Reason for Your Visit: diverticulitis,debility Attending Provider: Liban Wilhelm Primary Care Provider: Malissa Rascon Consulting Providers: Marilee Yeager Instructions Additional Instructions / Restrictions: Please contact the patient's economic development director to find out when the patient should resume Eliquis Discharge Orders/Prescriptions Prescriptions: New acetaminophen 325 mg Tablet 650 mg PO Q4H PRN PRN (Reason: Fever, pain 1-10/10) Qty: 1 0RF lorazepam 0.5 mg Tablet 0.5 mg PO QHS Qty: 5 0RF hydrocodone-acetaminophen 5-325 mg Tablet 2 tab PO Q6H PRN PRN (Reason: Pain Score 1-10) 3 Days Qty: 12 0RF budesonide 0.5 mg/2 mL Suspension For Nebulization 0.5 mg inhalation BID.RT Qty: 0 0RF menthol-zinc oxide [Calmoseptine] 0.44-20.6 % Ointment 1 applic topical 4X/DAY PRN (Reason: skin breakdown/irritation) Qty: 0 0RF Protocol: *Topical Application Instructions APPLICATION INSTRUCTIONS: apply to affected region amoxicillin-pot clavulanate [Augmentin] 500-125 mg tablet 1 tab PO TID Qty: 21 0RF Rx Instructions: start 04/01/23 methocarbamol 750 mg tablet 750 mg PO TID Qty: 1 0RF Rx Instructions: for neck pain Continued rosuvastatin [Crestor] 5 mg tablet 5 mg PO QDAY metoprolol succinate 25 mg tablet extended release 24 hr 25 mg PO DAILY nitroglycerin 0.4 mg tablet, sublingual 0.4 mg sublingual Q5M PRN (Reason: CP) Rx Instructions: do not exceed 3 doses per episode dofetilide 250 mcg capsule 250 mcg PO Q12H Patient Comments: TAKE 1 CAPSULE BY MOUTH EVERY 12 HOURS midodrine 5 mg tablet 5 mg PO TID Patient Comments: take 1 tablet by mouth three times a day pantoprazole 40 mg tablet,delayed release (DR/EC) 40 mg PO BID Patient Comments: take 1 tablet by mouth twice a day take before meals Rx Instructions: Before meals finasteride 5 mg tablet 5 mg PO DAILY Patient Comments: take 1 tablet by mouth once daily duloxetine 60 mg capsule,delayed release(DR/EC) See Rx Instructions PO DAILY Rx Instructions: 60 mg (2 caps) orally daily; Jardiance 25 mg tablet 12.5 mg PO DAILY levalbuterol HCl 0.63 mg/3 mL solution for nebulization 0.63 mg INHALATION TID Patient Comments: USE 1 VIAL 3 TIMES A DAY ICaps AREDS2 250 mg-200 unit -12.5 mg-1 mg capsule 1 cap PO DAILY cyanocobalamin (vitamin B-12) 1,000 mcg/mL kit 100 mcg IM QMONTH tamsulosin [Flomax] 0.4 mg capsule 0.8 mg PO QHS guaifenesin [Mucinex] 600 mg tablet extended release 12hr 600 mg PO BID cholecalciferol (vitamin D3) 25 mcg (1,000 unit) tablet 25 mcg PO DAILY Discontinued lorazepam 0.5 mg tablet 0.5 mg PO QHS budesonide-formoterol [Symbicort] 80-4.5 mcg/actuation HFA aerosol inhaler 1 inh inhalation BID apixaban 5 mg tablet 5 mg PO BID doxycycline hyclate 100 mg capsule 100 mg PO BID Patient Comments: take 1 capsule by mouth twice a day for 10 days bumetanide 1 mg tablet 1 mg PO DAILY Patient Comments: take 1 tablet by mouth once daily potassium chloride 20 mEq tablet extended release 20 meq PO DAILY Patient Comments: take 1 tablet by mouth once daily Stiolto Respimat 2.5-2.5 mcg/actuation mist 2 puff inhalation DAILY acetaminophen 500 mg tablet 500 mg PO Q4H PRN (Reason: Pain) Referrals / Follow Up: Malissa Rascon MD [Primary Care Provider] - Disposition Disposition (needs filled in before D/C Order can be placed): Long Term Facility 04/01/23 2325 <Electronically signed by Liban Wilhelm DO> Cosigner Signature (if applicable): CC: Dr. Marilee Yeager MD; Dr. Malissa Rascon MD ~ [facility] Work Phone: [phone] 481-917201-15-2024 Progress note Author Liban Wilhelm [facility] March 30, 2023 8:06pm Note Date/Time March 30, 2023 8 :06pm [facility] Medical Records Department [address] [place] [address] Progress Note - Hospitalist 03/30/231958 MR#: [id number] Acct: [id number] Name: HIRAM DORAN Rep #:[id number] : 1940 82 From: Liban Wilhelm DO PCP: Dr. Malissa Rascon MD Status:ADM IN Location: [place] [address] Reason for Visit Reason for Visit: Diagnoses Paroxysmal atrial fibrillation (03/29/23) Subjective Subjective Patient was seen and examined today, he is complaining of neck discomfort, he denies any trauma, I gave him Vicodin today and had to increase it due to neck pain. X- rays were obtained of the cervical spine which showed some arthritic changes in the cervical spine which were not severe. Patient may be having muscle spasm in his neck. I talked the patient's daughter about his medical care today, patient has some left-sided abdominal pain and is on IV antibiotics at this time. Objective Data Objective Data Vital Signs: Vital Signs Temp Pulse Resp BP Pulse Ox O2 Del Method 98.3 F 84 18 102/63 94 Room Air 03/30/23 15:32 03/30/23 19:50 03/30/23 19:50 03/30/23 15:32 03/30/23 19:50 03/30/23 19:50 Oxygen Delivery Method Room Air Weight: 81 kg Body Mass Index (BMI) 27.1 Intake & Output: Intake and Output for Last 24 Hours 03/28/23 03/29/23 03/30/23 23:59 23:59 23:59 Intake Total 1080 / 1080 1250 / 1250 Output Total 250 / 250 225 / 225 Balance 830 / 830 1025 / 1025 Lab / Micro Data 03/30/23 05:20 03/30/23 05:20 Labs: Laboratory Results - last 24 hr 03/29/23 09:45: Diff Path Review Reviewed 03/29/23 20:23: Troponin I High Sens 283 H* 03/30/23 05:20: WBC 12.1 H, RBC 2.90 L, Hgb 8.9 L, Hct 28.4 L, MCV 97.9 H, MCH 30.7, MCHC 31.3 L D, RDW Std Deviation 53.8 H, RDW Coeff of David 15.0 H, Plt Count 281, MPV 9.4, Immature Gran % (Auto) 1.600 H, Neut % (Auto) 76.7 H, Lymph % (Auto) 7.3 L, Morrill % (Auto) 12.0 H, Eos % (Auto) 1.7, Baso % (Auto) 0.7, Absolute Neuts (auto) 9.2 H, Absolute Lymphs (auto) 0.88, Nucleated RBC % 0, Sodium 138, Potassium 3.5, Chloride 101, Carbon Dioxide 29.0, Anion Gap 8, BUN 15, Creatinine 0.88, Estim Creat Clear Calc 60.45, Est GFR (MDRD) Af Amer 107, Est GFR (MDRD) Non-Af 88, BUN/Creatinine Ratio 17.1, Glucose 112 H, Calcium 8.6,Total Bilirubin 2.30 H, AST 14 L, ALT 13 L, Alkaline Phosphatase 68, Total Protein 6.1 L, Albumin 2.7 L, Globulin 3.4, Albumin/Globulin Ratio 0.8 L Micro: Microbiology 03/30/23 15:25 Stool Clostridioides difficile (PCR) - Final 03/29/23 23:45 Sputum, Expectorated/Coughed Gram Stain - Final 03/29/23 11:22 Urine, Random Legionella Antigen - Final 03/29/23 11:22 Urine, Random Streptococcus pneumoniae Antigen (M - Final 03/29/23 10:42 Mucosa - Nose SARS-CoV-2, Influenza & RSV (PCR) - Final Radiography Diagnostic Testing: Radiology Impression Cervical Spine X-Ray 03/30/23 16:40 IMPRESSION: No acute osseous abnormalities. There are mild degenerative changes with disc space narrowing. Electronically Signed: Terry Rojo MD at 19:13 EST , Physical Exam Const alert, oriented x3, no apparent distress and average body habitus General Appearance: cooperative, well kempt and well developed Orientation / Consciousness: awake, oriented to person, oriented to place and oriented to time HEENT normocephalic, head/scalp atraumatic and moist oral mucous membranes Eyes PERRL, EOMs intact bilaterally and conjunctivae normal Neck supple, no JVD, thyroid normal and no carotid bruits General: trachea midline Resp normal respiratory effort, no retractions, no use of accessory muscles and clearto auscultation bilaterally Auscultation: Negative for rales, rhonchi or wheezes Cardio no murmurs, no rub and no gallops Cardio Narrative: Occasional ectopy was noted on auscultation of the heart GI normal to inspection, nondistended, normoactive bowel sounds, soft to palpation and non-distended GI Narrative: Patient has left-sided abdominal tenderness on palpation, no rebound abdominal tenderness was noted Extremity no clubbing, cyanosis or edema Skin no rashes or lesions noted General Skin Exam: no breakdown Neuro oriented x3, CN's II-XII intact bilaterally, no focal motor deficits and no sensory deficits noted Sensorium / Orientation: awake and alert Speech: speech normal Psych affect normal Assessment & Plan Assessment/Plan (1) Paroxysmal atrial fibrillation: PLAN: Plan 1. Acute diverticulitis-continue IV antibiotics at this time, monitor CBC #2 paroxysmal atrial fibrillation-patient is currently on Tikosyn and beta- megan. He remains in sinus rhythm with PVCs #3 generalized debility secondary to multiple medical problems-patient will needshort-term placement in a shelter facility #4 neck pain-possibly secondary to muscle spasm with overlying mild degenerativedisc disease of the cervical spine-patient will remain on [place] 1-2 every 6 hours as needed for pain. Patient does not complain of any radicular pain so I do not think an MRI of the neck is necessary at this time. #5 recent acute blood loss anemia from retroperitoneal bleed-patient remains offof anticoagulation at this time, hemoglobin dropped slightly from admission, CBCwill be rechecked tomorrow #6 chronic obstructive pulmonary disease without exacerbation-pulse ox will be monitored, patient is now on no oxygen #7 coronary artery disease-this is being treated medically at this time #8 hyperlipidemia-patient is on a statin Total clinical time spent by myself addressing the patient's medical issues, reviewing all of his data, and collaborating with patient's care team: 35- minutes Capacity Legal Spout Liner Helper Reflex Medical hold order details:: IF a medical hold is selected below, a suggested order for a MEDICAL HOLD will reflex upon signing the document. Next of kin: [place] law dictates a PRIORITY LIST for identifying legal decision-maker/legal next of kin in the following order (LNOK): 1st: The patient?s legal guardian, if any 2nd: The patient's spouse (if status is questionable, consult Risk Management) 3rd: The patient?s adult child(allison) (majority, if multiple children) 4th: The patient?s parents 5th: The patient?s adult siblings (majority, if multiple children siblings) Charges/Coding Visit Charges Inpatient E&M: 59071 Subs Hosp L2 03/30/232005 <Electronically signed by Liban Wilhelm DO> Cosigner Signature (if applicable): CC: ~ Signed [facility] Work Phone: [phone] Discharge summary Author Hanh Rico [facility] March 29, 2023 9:31pm Note Date/Time March 29, 2023 1 0:35am [facility] Medical Records Department [address] [place] [address] Emergency Department Summary 03/29/23 MR#: [id number] Acct: [id number] Name: HIRAM DORAN Rep #:[id number] : 1940 82 From: Hanh Hill PCP: Dr. Malissa Rascon MD Status:ADM IN Location: [address] History of Present Illness Chief Complaint: Palpitations Informant: patient, family and EMS Narrative Narrative: 82-year-old male presenting to the emergency department chief complaint weakness. Patient has a very extensive recent medical history. Brief summary is that the patient has a longstanding history of atrial fibrillation and COPD. Last year the patient was on Coreg and started on digoxin later sotalol. He wasseeing cardiology and then electrophysiology at [facility]. After hospitalization with A-fib with RVR and hypotension he was started on Tikosyn. Tikosyn gave him significant diarrhea. Reportedly in set up/evaluated for EP study/ablation. On March 23 of this year he went in for cardiac cryoablation. Postoperatively was complicated by hypotension and was found to have retroperitoneal bleed and then pneumonia. He was started on vancomycin changed to doxycycline. He was transfused and diuresed. He eventually he was evaluatedby physical therapy and was felt that he was not a candidate for rehab. He was discharged home this past Thursday night. Family states his systolic blood pressures are typically in the 90s to 100. He restarted Tikosyn in the hospitaldue to recurrent A-fib. Diarrhea has returned. He notes lower abdominal pain. He is having difficulty at home with ADLs. He is requiring significant assistance by family to get dressed to get to the bathroom. He is having a lot of dry heaving whenever he exerts himself. Family was looking for a TCU bed here in [place]. No reported fevers. Patient continues to have poor appetite. He has not restarted his Eliquis. He continues on doxycycline. One of the family's biggest concerns is his dry heaving movement/dehydration and labs. Another big concern is potential need for rehab and care as he is really unable to care for himself at home currently. [facility] Medical History Abnormal stress test 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 BPH (benign prostatic hyperplasia) COPD (chronic obstructive pulmonary disease) GERD (gastroesophageal reflux disease) Hyperlipidemia Obstructive sleep apnea Paroxysmal atrial fibrillation SVT (supraventricular tachycardia) Home Medications lorazepam 0.5 mg tablet 0.5 mg PO QHS anxiety 07/04/17 [History Last Taken 01/03/18 20:00] rosuvastatin 5 mg tablet (Crestor) 5 mg PO QDAY cholesterol 07/04/17 [History Last Taken 01/03/18] sertraline 50 mg tablet 50 mg PO DAILY 12/01/18 [History Last Taken Unknown] tiotropium bromide 2.5 mcg/actuation mist for inhalation (Spiriva Respimat) 2 inh inhalation QAM 04/11/20 [History Last Taken Unknown] budesonide-formoterol HFA 80 mcg-4.5 mcg/actuation aerosol inhaler (Symbicort) 2puff inhalation BID 01/10/21 [History Last Taken Unknown] acetaminophen 500 mg tablet 500 mg PO Q4H PRN Pain 05/22/21 [History Last Taken Unknown] cholecalciferol (vitamin D3) 25 mcg (1,000 unit) tablet 25 mcg PO DAILY 05/22/21[History Last Taken Unknown] cimetidine 200 mg tablet (Tagamet HB) 200 mg PO ONCE PRN reflux 05/22/21 [History Last Taken Unknown] guaifenesin 600 mg tablet, extended release 12 hr (Mucinex) 600 mg PO BID 05/22/21 [History Last Taken Unknown] mecobalamin (vitamin B12) 1,000 mcg chewable tablet 1,000 mcg PO DAILY 05/22/21 [History Last Taken Unknown] mometasone 200 mcg/actuation HFA aerosol inhaler (Asmanex HFA) 2 puff inhalationBID 05/22/21 [History Last Taken Unknown] tamsulosin 0.4 mg capsule (Flomax) 0.8 mg PO QHS BPH 05/22/21 [History Last Taken Unknown] tiotropium 2.5 mcg-olodaterol 2.5 mcg/actuation mist for inhalation (Stiolto Respimat) 2 puff inhalation DAILY 05/22/21 [History Last Taken Unknown] apixaban 5 mg tablet 5 mg PO BID 06/27/21 [History Last Taken Unknown] isosorbide mononitrate 30 mg tablet,extended release 24 hr 30 mg PO DAILY 06/27/21 [History Last Taken Unknown] metoprolol succinate 25 mg tablet,extended release 24 hr 25 mg PO DAILY 06/27/21[History Last Taken Unknown] nitroglycerin 0.4 mg sublingual tablet 0.4 mg sublingual Q5M PRN 06/27/21 [History Last Taken Unknown] Allergy/AdvReac Type Severity Reaction Status Date / Time No Known Allergies Allergy Verified 01/31/22 15:05 Family History Mother , Age 64 from Emphysema COPD (chronic obstructive pulmonary disease) Blood disorder Surgical History History of ankle surgery History of appendectomy History of back surgery History of inguinal hernia repair History of left heart catheterization (05/27/21) History of tonsillectomy History of umbilical hernia repair Social History Smoking Status: Former smoker how long ago did patient quit smokin years ago alcohol intake: current alcohol intake frequency: holidays/special occasions only caffeine: Yes Type: coffee Number of servings: 2 ROS ROS ED ROS Narrative Generalized weakness lightheadedness Constitutional Constitutional ED: Reports chills; Denies fever(s) or weight loss Eyes Eyes: Denies change in vision or diplopia ENT ENT ED: Denies ear pain, rhinorrhea or sore throat Cardiovascular Cardiovascular: Reports palpitations and racing heartbeat; Denies chest pain or orthopnea Respiratory/Chest Respiratory/Chest: Reports cough, dyspnea and sputum; Denies orthopnea Gastrointestinal Gastrointestinal: Reports abdominal pain, diarrhea, nausea and other Details: Dry heaves ; Denies vomiting Genitourinary Genitourinary ED: Reports urinary frequency and other Details: Unsure if fully emptying his bladder ; Denies dysuria or hematuria Musculoskeletal Musculoskeletal: Reports back pain; Denies arthralgias or myalgias Integumentary Denies abscess or rash Neurologic Neurologic: Denies headache(s) or weakness Psychiatric Psychiatric: Denies anxiety, depression, suicidal ideation or suicidal thoughts Endocrine Endocrinology: Denies polydipsia, polyphagia or polyuria Allergic/Immunologic Allergic/Immunologic ED: Denies mouth swelling, tongue swelling or urticaria EXAM Physical Exam Narrative Exam Narrative: Patient appears generally frail. Const Vital Signs: 03/29/23 09:42 03/29/23 10:29 Temperature 97.1 F L Temperature Source Oral Pulse Rate 87 148 H Respiratory Rate 16 16 Blood Pressure 95/56 L 93/67 Blood Pressure Mean 69 75 Pulse Ox 92 97 Oxygen Delivery Method Room Air Positive well nourished and well developed General Appearance ED: well developed HEENT Reports normocephalic, head/scalp atraumatic and moist mucous membranes Eyes PERRL and EOMs intact bilaterally Neck no lymphadenopathy, supple and no JVD Resp normal respiratory effort and clear to auscultation bilaterally Cardio no murmurs Rate: tachycardic Rhythm: abnormal rhythm irregularly irregular GI GI Narrative: Mild tenderness to palpation. Slightly tympanitic to percussion Auscultation: normoactive bowel sounds Palpation: soft and guarding; Negative for rebound tenderness present Back/Spine no CVA tenderness Thoracic Spine / Upper Back: Negative for thoracic spinal tenderness Lumbar Spine / Lower Back: Negative for lumbar spinal tenderness Extremity normal to inspection General Extremety ED: Negative for edema General Extremity: Negative for edema Neuro oriented x3 and CN's II-XII intact bilaterally Sensorium / Orientation: alert Motor Exam: strength 5/5 throughout Psych mental status grossly normal Mood & Affect: Negative for depressed or tearful Skin no rashes or lesions noted and no wounds MDM MDM MDM Narrative Medical decision making narrative: Basic blood work obtained showed a white count of 12.9 hemoglobin of 9.8. INR 1.3 PTT 33.7. Creatinine 0.98. CO2 32. Electrolytes normal. Glucose 116. Total bilirubin elevated 2.20 with otherwise normal liver enzymes. I suspect this is due to the breakdown of the retroperitoneal hematoma. Troponin [id number] not unexpected due to the recent cryotherapy surgery. Urinalysis with no overt infection. CT of the chest demonstrates no pulmonary embolism. Significant underlying COPD changes. No definitive infiltrative findings. CT of the abdomen pelvis demonstrates retroperitoneal hematoma on the left. There is also some inflammation around the left colon. Per the family he had that on the CT at [place]. Questionable diverticulitis. I do question whether or not this is more related to the bleed. I spoke with hospitalist who will be down toevaluate the patient for admission. Family was updated satisfied. Patient's blood pressure remained stable for him and he has had about 2 episodes of atrialfibrillation that I have seen on the monitor which have spontaneously converted back to sinus. History & Record Review Discussion w/independent historian: EMS personnel, Patient and Family Additional record(s) reviewed:: Prior inpatient record, Prior ED visit and Priorlabs Lab Data Attestation: I reviewed the patient's lab results. Labs: Laboratory Results - last 24 hr 03/29/23 03/29/23 09:45 11:22 WBC 12.9 H RBC 3.01 L Hgb 9.8 L Hct 29.3 L MCV 97.3 H MCH 32.6 H MCHC 33.4 RDW Std Deviation 52.9 H RDW Coeff of David 15.0 H Plt Count 284 MPV 9.3 Immature Gran % (Auto) 1.400 H Neut % (Auto) 78.0 H Lymph % (Auto) 7.1 L Morrill % (Auto) 12.3 H Eos % (Auto) 0.7 Baso % (Auto) 0.5 Absolute Neuts (auto) 10.1 H Absolute Lymphs (auto) 0.92 Nucleated RBC % 0 Diff Path Review May foll PT 16.1 H INR 1.3 APTT 33.7 Sodium 138 Potassium 3.6 Chloride 99 Carbon Dioxide 32.0 Anion Gap 7 BUN 16 Creatinine 0.98 Estim Creat Clear Calc 58.83 Est GFR (MDRD) Af Amer 93 Est GFR (MDRD) Non-Af 77 BUN/Creatinine Ratio 16.2 Glucose 116 H Lactic Acid 1.1 Calcium 8.6 Magnesium 2.0 Total Bilirubin 2.20 H Direct Bilirubin 0.58 H AST 8 L ALT 12 L Alkaline Phosphatase 69 Troponin I High Sens 346 H* B-Natriuretic Peptide 55.4 Total Protein 6.4 Albumin 2.9 L Globulin 3.5 Lipase 11 L Urine Color Yellow Urine Clarity Clear Urine pH 5.0 Ur Specific [place] 1.015 Urine Protein 15 H Urine Glucose (UA) 1000 H Urine Ketones 15 H Urine Occult Blood 10 H Urine Nitrite Negative Urine Bilirubin Negative Urine Urobilinogen Normal Ur Leukocyte Esterase 25 H Urine RBC 0 SEEN Urine WBC 0 SEEN Ur Squamous Epith Cells 0 SEEN Urine Bacteria 0 SEEN Urine Mucus 0 SEEN Radiography Diagnostic Testing: Clinical Impression(s) from Imaging Studies Abdomen/Pelvis CT 03/29/23 11:35 IMPRESSION: 1. Mild inflammatory changes along the left colon suggestive of diffuse diverticulitis without abscess or perforation. 2. Left retroperitoneal hemorrhage as described. Electronically Signed: Valente Lara MD at 12:19 EST , Chest CTA 03/29/23 11:35 IMPRESSION: 1. No evidence of acute pulmonary embolism. 2. Pulmonary emphysema. 3. Bibasilar interstitial thickening which may represent acute or chronic inflammatory change Electronically Signed: Valente Lara MD at 12:22 EST , EKG Initial EKG: Attestation: I personally reviewed and interpreted this EKG as follows: Comments: Sinus rhythm with sinus arrhythmia ventricular rate of 90 bpm Management Discussion w/another healthcare provider: Hospitalist Discharge Plan Dx/Rx/DC Orders Clinical Impression: 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, Paroxysmal atrial fibrillation, Retroperitoneal hematoma, ABLA (acute blood loss anemia), COPD (chronic obstructive pulmonary disease) Disposition Disposition: Acute Care Hospital [facility] What to do if you have Problems For any increased pain, shortness of breath, bleeding, nausea or vomiting, chestpain, or any unexpected problems, contact your Primary Care Provider. Call [facility] ([phone]) or report to the closest Emergency Room. Call 911 if necessary. 03/29/232130 <Electronically signed by Hanh Rico DO> Cosigner Signature (if applicable): CC: Dr. Malissa Rascon MD ~ Signed [facility] Work Phone: [phone]) 502-485901-14-2024 History and physical note Author Marilee Yeager [facility] March 29, 2023 2:31pm Note Date/Time March 29, 2023 1 :14pm [facility] Medical Records Department [address] [place] [address] H&P Exam - Hospitalist 03/29/23 1308 MR#: [id number] Acct: [id number] Name: HIRAM DORAN Rep #:[id number] 28 : 1940 82 From: Marilee Yeager MD PCP: Dr. Malissa Rascon MD Status:ADM IN Location: [place] [address] HPI - General General Date of Admission: 03/29/23 Date of Service: 03/29/23 Chief Complaint: Debility, weakness, L sided abdominal discomfort, ongoing diarrhea. HPI Narrative The patient is an 82 y/o M w/ PMHx: HFrEF, JORGE, Anxiety and Depression, HTN, HLD, CAD, BPH, COPD/Pulmonary fibrosis, Hx SVT, Sinus node dysfunction worse with AV dennis blocking agents, PAF complicated by history of hypertension associate with regimen eventually transition to Tikosyn however this was associated with significant diarrhea therefore he was referred to electrophysiology at [facility] for EP study/ablation with cryoablation 03/23/2023 with postoperative course unfortunately complicated by recurrent hypotension andnoted retroperitoneal bleed with associated acute blood loss anemia eventually stabilizing as well as concerns for pneumonia placed on initially IV BSA transition eventually to oral doxycycline with PRBC transfusion as well as diuresis with eventual restart of Tikosyn secondary to recurrent bouts of atrialfibrillation with RVR with unfortunately again recurrent diarrhea similar to hisprevious with ongoing BP with commonly systolics in the 90s with PT/OT assessments with decision for skilled placement needs with plan transition to TCU however per family report there was no bed available until Thursday therefore for unclear reasons patient was discharged to home however he he cannot functionsafely at home and since has had recurrent ongoing persistent diarrhea he notes lower abdominal discomfort as well as left-sided discomfort with occasional nausea and dry heaving when he exerts himself with no recent fevers or chills but poor appetite prompting eventual ED evaluation. Per family report he was not supposed to start any antiplatelet or anticoagulant therapy until his hemoglobin was reportedly at 10 but there was no clear follow-up indicated. He does report that he is continue doxycycline for what was reported as a hospital-acquired pneumonia. From review of records 06/27/2021 cardiology visit patient also had an unfortunate large hematoma following a heart cath of note. Patient does report left-sided abdominal discomfort, worse with palpation with decreasedoral intake per family report. From records 05/27/2021 there was unsuccessful PTCA of D1 as they could not cross the lesion with a wire with decision for medical management. From review of clinic [facility] records w/ last noted 03/27/2023 cardiology EP note reporting PAF status post ablative therapies with reported occasional breakthrough episodes of nonsustained atrial tachycardia with recommended continue monitoring, report of possibly planned restart Eliquis March 30 with plan repeat labs 3 to 4 days afterwards to continue assessing hemoglobin, retroperitoneal bleed, and that bleeding had stabilized with hemoglobin at that time 9.1, treatment of acute on chronic HFrEF with diuresis performed, ongoing ileus with GI also consulted during that presentation, reportedly pneumonia with patient improvement with mild cough otherwise no acute findings. Patient per record had required pressor support and fluids as well as transfusions maintained in the CCU and evaluated by vascular for the left retroperitoneal hemorrhage. From the notes from their facility the patient was adamant that he did not want to go to skilled facilities. They also reported that if onset of diarrhea they may need to againdiscontinue Tikosyn and consider a different antiarrhythmic agent. Workup in theED included T97.1, heart rate initially 87 however patient intermittently in atrial fibrillation with RVR with rate going up to 148 however quickly comes outof it, BP 95/56, respiratory rate 16, 92% on room air, CBC with WBC 12.9, hemoglobin 9.8, MCV 97.3, platelet 284 with increased immature granulocytes and left shift, coags with PT 16.1 otherwise not marked appearing, CMP with glucose 116, magnesium 2.0, T. bili 2.20, T. bili 0.58, AST/ALT 8/12, troponin 346, BNP 55.4, lipase 11, urinalysis with specific gravity 1.015, protein 15, glucose 1000, ketone 15, occult blood 10, leukocyte esterase 25 otherwise no marked evidence of UTI, rapid SARS COVID/flu/RSV PCR negative, CT abdomen and pelvis with IV contrast with mild inflammatory changes along the left colon suggestive of diffuse diverticulitis without any abscess or perforation with a large left retroperitoneal hemorrhage stable in appearance, CTPA with no evidence of pulmonary embolism, notable pulmonary emphysema, bibasilar interstitial thickening possibly acute or chronic inflammatory change, EKG initially sinus rhythm with no acute evidence of ischemia however while in the ED patient with intermittent atrial fibrillation with RVR with quick conversion to sinus rhythm. Family was encouraged to return to [facility] however they were very dissatisfied with the care at their facility and declined any consideration of transfer. They very strongly requested admission for transition to TCU when bed open. [facility] Medical History (Updated 03/29/23 @ 14:[address] Marilee Yeager MD) 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 BPH (benign prostatic hyperplasia) Chronic diarrhea COPD (chronic obstructive pulmonary disease) GERD (gastroesophageal reflux disease) HFrEF (heart failure with reduced ejection fraction) Hyperlipidemia Obstructive sleep apnea Paroxysmal atrial fibrillation Pulmonary fibrosis Retroperitoneal hematoma Sinus node dysfunction SVT (supraventricular tachycardia) Home Medications lorazepam 0.5 mg tablet 0.5 mg PO QHS anxiety 07/04/17 [History Last Taken 01/03/18 20:00] rosuvastatin 5 mg tablet (Crestor) 5 mg PO QDAY cholesterol 07/04/17 [History Last Taken 01/03/18] sertraline 50 mg tablet 50 mg PO DAILY 12/01/18 [History Last Taken Unknown] tiotropium bromide 2.5 mcg/actuation mist for inhalation (Spiriva Respimat) 2 inh inhalation QAM 04/11/20 [History Last Taken Unknown] budesonide-formoterol HFA 80 mcg-4.5 mcg/actuation aerosol inhaler (Symbicort) 2puff inhalation BID 01/10/21 [History Last Taken Unknown] acetaminophen 500 mg tablet 500 mg PO Q4H PRN Pain 05/22/21 [History Last Taken Unknown] cholecalciferol (vitamin D3) 25 mcg (1,000 unit) tablet 25 mcg PO DAILY 05/22/21[History Last Taken Unknown] cimetidine 200 mg tablet (Tagamet HB) 200 mg PO ONCE PRN reflux 05/22/21 [History Last Taken Unknown] guaifenesin 600 mg tablet, extended release 12 hr (Mucinex) 600 mg PO BID 05/22/21 [History Last Taken Unknown] mecobalamin (vitamin B12) 1,000 mcg chewable tablet 1,000 mcg PO DAILY 05/22/21 [History Last Taken Unknown] mometasone 200 mcg/actuation HFA aerosol inhaler (Asmanex HFA) 2 puff inhalationBID 05/22/21 [History Last Taken Unknown] tamsulosin 0.4 mg capsule (Flomax) 0.8 mg PO QHS BPH 05/22/21 [History Last Taken Unknown] tiotropium 2.5 mcg-olodaterol 2.5 mcg/actuation mist for inhalation (Stiolto Respimat) 2 puff inhalation DAILY 05/22/21 [History Last Taken Unknown] apixaban 5 mg tablet 5 mg PO BID 06/27/21 [History Last Taken Unknown] isosorbide mononitrate 30 mg tablet,extended release 24 hr 30 mg PO DAILY 06/27/21 [History Last Taken Unknown] metoprolol succinate 25 mg tablet,extended release 24 hr 25 mg PO DAILY 06/27/21[History Last Taken Unknown] nitroglycerin 0.4 mg sublingual tablet 0.4 mg sublingual Q5M PRN CP 06/27/21 [History Last Taken Unknown] bumetanide 1 mg tablet mg 03/29/23 [History Last Taken Unknown] dofetilide 250 mcg capsule mcg 03/29/23 [History Last Taken Unknown] doxycycline hyclate 100 mg capsule mg 03/29/23 [History Last Taken Unknown] duloxetine 60 mg capsule,delayed release mg PO 03/29/23 [History Last Taken Unknown] empagliflozin 25 mg tablet (Jardiance) 12.5 mg PO DAILY 03/29/23 [History Last Taken Unknown] finasteride 5 mg tablet mg 03/29/23 [History Last Taken Unknown] levalbuterol HCl 0.63 mg/3 mL solution for nebulization mg inhalation 03/29/23 [History Last Taken Unknown] midodrine 5 mg tablet mg 03/29/23 [History Last Taken Unknown] pantoprazole 40 mg tablet,delayed release mg PO 03/29/23 [History Last Taken Unknown] potassium chloride 20 mEq tablet,extended release meq PO 03/29/23 [History Last Taken Unknown] Allergy/AdvReac Type Severity Reaction Status Date / Time No Known Allergies Allergy Verified 01/31/22 15:05 Family History Mother , Age 64 from Emphysema COPD (chronic obstructive pulmonary disease) Blood disorder Father No problems noted. Surgical History History of ankle surgery History of appendectomy History of back surgery History of inguinal hernia repair History of left heart catheterization (05/27/21) History of tonsillectomy History of umbilical hernia repair S/P ablation of atrial fibrillation Social History (Updated 03/29/23 @ 14:[address] Marilee Yeager MD) household members: spouse Smoking Status: Former smoker how long ago did patient quit smokin years ago alcohol intake: current alcohol intake frequency: holidays/special occasions only substance use type: does not use caffeine: Yes Type: coffee Number of servings: 2 ROS ROS Narrative Admission Review of Systems: CONSTITUTIONAL: No weight loss, fever, chills, + weakness or fatigue. HEENT: Eyes: No visual loss, blurred vision, double vision or yellow sclerae. Ears, Nose, Throat: No hearing loss, sneezing, congestion, runny nose or sore throat. SKIN: No rash or itching, lesions, wounds. CARDIOVASCULAR:+ Edema, improved, intermittent racing heart/palpitations not marked symptomatic. No chest pain, chest pressure or chest discomfort, orthopnea, syncopal events. RESPIRATORY: + Productive cough. No shortness of breath, wheezing, hemoptysis. GASTROINTESTINAL: + anorexia, occasional nausea with dry heaving, L sided abdominal discomfort, diarrhea, no overt vomiting. No melena, BRBPR. GENITOURINARY: No dysuria, frequency, urgency or retention. NEUROLOGICAL: No headache, dizziness, syncope, paralysis, ataxia, numbness or tingling in the extremities, focal weakness, change in bowel or bladder control,seizure. MUSCULOSKELETAL: + muscle, back pain, joint pain or stiffness. HEMATOLOGIC: + anemia, easy bleeding/bruising. LYMPHATICS: No enlarged nodes. No history of splenectomy. PSYCHIATRIC: + History of anxiety and depression. ENDOCRINOLOGIC: No reports of sweating, cold or heat intolerance. No polyuria orpolydipsia. ALLERGIES: No history of asthma, hives, eczema or rhinitis. Vital Signs Vital Signs Vital Signs: 03/29/23 09:42 03/29/23 10:29 Temperature 97.1 F L Temperature Source Oral Pulse Rate 87 148 H Respiratory Rate 16 16 Blood Pressure 95/56 L 93/67 Blood Pressure Mean 69 75 Pulse Ox 92 97 Oxygen Delivery Method Room Air Weight Weight: 182 lb 5.156 oz Body Mass Index (BMI) 27.7 Physical Exam Narrative Physical Examination: General: Awake, alert, oriented to self, place and recent events, patient is fatigued and was initially sleeping prior to evaluation, remains cooperative, seated upright in the ED bed, does report discomfort to the abdomen primary withpalpation of the left side. Skin: Normal color, normal turgor, no icterus, no cyanosis except for staged ecchymoses likely secondary to recent lab draws. HEENT: AT/NC, EOMI, PERRLA, moderately dry MM, no carotid bruits or JVD noted. Lungs: Mildly diminished, greater bases, appropriate effort, no evidence of any distress, no rales, ronchi or wheezing. Heart: Currently regular rate and rhythm; no gallop, rub audible. Abdomen: Soft, discomfort to bilateral lower quadrants however left greater thanright, mild voluntary guarding, no overt marked distention, hyperactive BS, no appreciated HSM. Extremities: No cyanosis, clubbing, or marked edema which family notes is improved significantly since recent admission. Neurological: Patient awake, alert, oriented as noted, cognitive function intact; pupils equally reactive to light and accommodation, cranial nerves grossly normal, moving all 4 extremities, no focal deficits, strength moderatelyto severely globally decreased secondary to acute complaints and recent prolonged admission with significant hospital events Psychiatric: Affect appears flat, fatigued, no acute evidence of depressive or anxiety feelings but does have underlying history. Results Lab / Micro Data 03/29/23 09:45 03/29/23 09:45 Labs: Laboratory Results - last 24 hr 03/29/23 09:45: WBC 12.9 H, RBC 3.01 L, Hgb 9.8 L, Hct 29.3 L, MCV 97.3 H, MCH 32.6 H, MCHC 33.4, RDW Std Deviation 52.9 H, RDW Coeff of David 15.0 H, Plt Count 284, MPV 9.3, Immature Gran % (Auto) 1.400 H, Neut % (Auto) 78.0 H, Lymph % (Auto) 7.1 L, Morrill % (Auto) 12.3 H, Eos % (Auto) 0.7, Baso % (Auto) 0.5, Absolute Neuts (auto) 10.1 H, Absolute Lymphs (auto) 0.92, Nucleated RBC % 0, Diff Path Review July, PT 16.1 H, INR 1.3, APTT 33.7, Sodium 138, Potassium 3.6, Chloride 99, Carbon Dioxide 32.0, Anion Gap 7, BUN 16, Creatinine 0.98, Estim Creat Clear Calc 58.83, Est GFR (MDRD) Af Amer 93, Est GFR (MDRD) Non-Af 77, BUN/Creatinine Ratio 16.2, Glucose 116 H, Lactic Acid 1.1, Calcium 8.6, Magnesium 2.0, Total Bilirubin 2.20 H, Direct Bilirubin 0.58 H, AST 8 L, ALT 12 L, Alkaline Phosphatase 69, Troponin I High Sens 346 H*, B-Natriuretic Peptide 55.4, Total Protein 6.4, Albumin 2.9 L, Globulin 3.5, Lipase 11 L 03/29/23 11:22: Urine Color Yellow, Urine Clarity Clear, Urine pH 5.0, Ur Specific [place] 1.015, Urine Protein 15 H, Urine Glucose (UA) 1000 H, Urine Ketones 15 H, Urine Occult Blood 10 H, Urine Nitrite Negative, Urine Bilirubin Negative, Urine Urobilinogen Normal, Ur Leukocyte Esterase 25 H, Urine RBC 0 SEEN, Urine WBC 0 SEEN, Ur Squamous Epith Cells 0 SEEN, Urine Bacteria 0 SEEN, Urine Mucus 0 SEEN Micro: Microbiology 03/29/23 10:42 Mucosa - Nose SARS-CoV-2, Influenza & RSV (PCR) - Final Imagaing Radiology Impression Abdomen/Pelvis CT 03/29/23 11:35 IMPRESSION: 1. Mild inflammatory changes along the left colon suggestive of diffuse diverticulitis without abscess or perforation. 2. Left retroperitoneal hemorrhage as described. Electronically Signed: Valente Lara MD at 12:19 EST , Chest CTA 03/29/23 11:35 IMPRESSION: 1. No evidence of acute pulmonary embolism. 2. Pulmonary emphysema. 3. Bibasilar interstitial thickening which may represent acute or chronic inflammatory change Electronically Signed: Valente Lara MD at 12:22 EST , Assessment & Plan Assessment/Plan (1) Paroxysmal atrial fibrillation: PLAN: Plan The patient is an 82 y/o M w/ PMHx: HFrEF, JORGE, Anxiety and Depression, HTN, HLD, CAD, BPH, COPD/Pulmonary fibrosis, Hx SVT, Sinus node dysfunction worse with AV dennis blocking agents, PAF complicated by history of hypertension associate with regimen eventually transition to Tikosyn however this was associated with significant diarrhea therefore he was referred to electrophysiology at [facility] for EP study/ablation with cryoablation 03/23/2023 with postoperative course unfortunately complicated by recurrent hypotension and noted retroperitoneal bleed with associated acute blood loss anemia eventually stabilizing as well as concerns for pneumonia placed on initially IV BSA transition eventually to oral doxycycline with PRBC transfusion as well as diuresis with eventual restart of Tikosyn secondary to recurrent bouts of atrialfibrillation with RVR with unfortunately again recurrent diarrhea similar to hisprevious with ongoing BP with commonly systolics in the 90s with PT/OT assessments with decision for skilled placement needs with plan transition to TCU however per family report there was no bed available until Thursday therefore he was discharged to home and now presents to the [facility] ED on 03/29/23 with debility and request for placement as well as evaluation for abdominal discomfort. #1. Paroxsymal atrial fibrillation w/ RVR: Patient with recurrent atrial fibrillation with RVR, known to Cardiology, recent admission with EP and ablation but still intermittent episodes, restarted on tikosyn but onset again of diarrhea potentially related, will need to consider Cardiology consultation, LVEF 45%, moderate LAE reported in [facility] records, reported also to have failedmultiple antiarrhythmic agents including sotalol (bradycardia, hypotension), ranolazine (hypotension), tikosyn (inadequate suppression) with restart on also BB despite low BB with concern started midodrine, will maintain on telemetry, obtain cardiac enzyme serial set to be cautious especially given elevated however patient did have recent cryo ablation therapy thus suspect this is etiology, magnesium level normal per ED, recent echo reported at [facility] thus we willdefer repeat. Holding anticoagulant therapy as hemoglobin not greater than 10 with recent left retroperitoneal bleed. If necessary may re-involve cardiology but intermittent episodes of PAF with RVR were noted per cardiology even at [facility] discharge. Will prioritize metoprolol and hold diuresis if necessary but avoid hydration and encourage oral appropriate intake. #2. ? Acute Diverticulitis versus inflammatory change secondary to literal location of the peritoneal hematoma against the bowel: To be cautious will only judiciously hydrate given recent reported HFrEF exacerbation, will monitor I&Os,allow clears and ADAT, treat with IV zosyn regimen but obtain procalcitonin as still uncertain of acute infectious process, maintain on PPI, anti-emetics, painregimen PRN. Will obtain cdiff and enteric to be cautious but appears was also done in February and negative at that time but from records diarrhea only now again more persistent after Tikosyn restart. #3. Recent questionable hospital-acquired pneumonia: Given CTPA with no marked finding suspect possibly atelectatic cause for findings and decision to treat asa hospital-acquired but from records based on chest x-ray imaging 03/24/2023 chestx- ray with report of worsening bilateral bibasilar infiltrate, small bilateral pleural effusions concerning for pneumonia but was likely overload with his HF exacerbation from records review, patient had been on BSA but was transition to doxycycline, at this point there is also no mention of any sputum cultures or urine antigens. Will de-escalate off of doxycycline given concern for possibly diverticulitis but again this could be related to the peritoneal hematoma and potentially irritation but unsure. To be cautious although CT imaging here at [facility] and that at [facility] of at least bases did not reveal PNA, given sputum production will obtain sputum Cx if produces, urine antigens. #4. Recent Acute Retroperitoneal Bleed following intervention w/ ABLA associated: Recent noted [facility] CBC with WBC 9.6, hemoglobin 9.1, MCV 94, platelet 241 with mild left shift noted, 03/24/2023 CT angio for GI bleed with study positive for left retroperitoneal hemorrhage extending into the left pelvic extraperitoneal space with no contrast extravasation to indicate any active hemorrhage at that time with diverticulosis without any diverticulitis with small bilateral pleural effusions with minimal adjacent atelectasis reported with size 7.5 x 5.2 cm at that time. Vascular surgery evaluation with recommended continued close monitoring. Will continue to hold anticoagulation and antiplt. Continue to trend CBC. Treated ? #2. #5. Elevated cardiac enzyme with as noted intermittent episodes of atrial fibrillation with RVR however patient did have recent cryoablation therapy suspectedas etiology: EKG in ED with initially sinus rhythm with no acute evidence of ischemia, CTA chest with no evidence of pulmonary emboli or acute concerns and no evidence of any pneumonia, initial trop 346 with no comparison obtained at [facility] as likely it would have been elevated with recent cardiac intervention. Will place on a monitored bed to assure no acute myocardial infarction with serial cardiac enzymes and EKGs. Given retroperitoneal bleed recently we will hold on aspirin therapy or any consideration of resumption of Eliquis but will continue to trend cardiac enzymes. #6. HFrEF with Recent Exacerbation: Noted during [facility] admission, LVEF 45%, moderate LAE reported in [facility] records, CXR with overload, diuresed with low BPs as noted with concurrent ABLA/PRBC administration component, will diurese asBP allows but will avoid IVFs at this point unless needed and prioritize BB given ongoing bouts PAF with RVR as noted with administration of Bumex as able but in the ED significantly low normal BP would preclude this, holding antiplt and anticoagulant given ABLA/retroperitoneal bleed recently and add back once appropriate, continue statin. Continue on midodrine regimen. #7. Hyperbilirubinemia with normal LFTs: Given recent notable acute retroperitoneal bleed with acute blood loss anemia which is now stabilized suspect this is etiology, admission CMP with T. bili 2.20, T. bili 0.58, AST/LT 10/25, continue to trend CMP. #8. Chronic COPD/pulmonary fibrosis: Will maintain on oxygen with wean as tolerated to room air, continue ATC budesonide, PRN Xopenex which patient's family will bring from home to use given significant PAF with RVR history and not available at [facility] pharmacy, HOB, IS parameters. #9. CAD: Most recently noted 05/27/2021 there was unsuccessful PTCA of D1 as they could not cross the lesion with a wire with decision for medical management, holding antiplt and anticoagulation given recent ABLA with retroperitoneal bleed as noted, continue metoprolol as able pending BP trending,not on ACEI/ARB, continue statin. #10. Hyperlipidemia we will continue patient on statin therapy. #11. Anxiety and depression: We will continue patient low-dose nightly lorazepam as well as home sertraline. Needs clarification as patient is also listed potentially being on home regimen of duloxetine as well and use of these 2 agents together would not be appropriate. #12. BPH: We will continue patient Flomax home regimen. #13. JORGE: CPAP nightly. #14. DVT Prophylaxis: SCDs. #15. CODE status: Patient TAI is his daughter who is present and living will is currently in place. Discussed CODE status at length including difference between FULL code, DNR-CCA and DNR-CC status. Following discussions about the differences in these status, requested Full Code status. Discussed his prognosisshould an cardiopulmonary event occur with both him and his family. Advanced Care Planning Face to Face Time: 16 minutes. Charges/Coding Visit Charges Inpatient E&M: 60268 Init Hosp L3 Procedures Hospitalists Procedures: 18101 Advncd Care Plan 30 Min 03/29/23 1431 <Electronically signed by Marilee Yeager MD> Cosigner Signature (if applicable): CC: Dr. Marilee Yeager MD; Dr. Malissa Rascon MD~ Signed [facility] Work Phone: 1(549) 851-510901-12-2024 Hospital Discharge instructions Patient Education 03/27/2023 19:20:48 Cardiac Ablation, Care After Cardiac Ablation, Care After This sheet gives you information about how to care for yourself after your procedure. Your health care provider may also give you more specific instructions. If you have problems or questions, contact your health care provider. What can I expect after the procedure? After the procedure, it is common to have: Bruising around your puncture site. Tenderness around your puncture site. Skipped heartbeats. Tiredness (fatigue). Follow these instructions at home: Puncture site care Follow instructions from your health care provider about how to take care of your puncture site. Make sure you: ?Wash your hands with soap and water before you change your bandage (dressing). If soap and water are not available, use hand resident care aide. ?Change your dressing as told by your health care provider. ?Leave stitches (sutures), skin glue, or adhesive strips in place. These skin closures may need to stay in place for up to 2 weeks. If adhesive strip edges start to loosen and curl up, you may trim the loose edges. Do not remove adhesive strips completely unless your health care provider tells you to do that. Check your puncture site every day for signs of infection. Check for: ?Redness, swelling, or pain. ?Fluid or blood. If your puncture site starts to bleed, lie down on your back, apply firm pressure to the area, and contact your health care provider. ?Warmth. ?Pus or a bad smell. Driving Ask your health care provider when it is safe for you to drive again after the procedure. Do not drive or use heavy machinery while taking prescription pain medicine. Do not drive for 24 hours if you were given a medicine to help you relax (sedative) during your procedure. Activity Avoid activities that take a lot of effort for at least 3 days after your procedure. Do not lift anything that is heavier than 10 lb (4.5 kg), or the limit that you are told, until your health care provider says that it is safe. Return to your normal activities as told by your health care provider. Ask your health care provider what activities are safe for you. General instructions Take pfen-yhv-uhlbmtf and prescription medicines only as told by your health care provider. Do not use any products that contain nicotine or tobacco, such as cigarettes and e-cigarettes. If you need help quitting, ask your health care provider. Do not take baths, swim, or use a hot tub until your health care provider approves. Do not drink alcohol for 24 hours after your procedure. Keep all follow-up visits as told by your health care provider. This is important. Contact a health care provider if: You have redness, mild swelling, or pain around your puncture site. You have fluid or blood coming from your puncture site that stops after applying firm pressure to the area. Your puncture site feels warm to the touch. You have pus or a bad smell coming from your puncture site. You have a fever. You have chest pain or discomfort that spreads to your neck, jaw, or arm. You are sweating a lot. You feel nauseous. You have a fast or irregular heartbeat. You have shortness of breath. You are dizzy or light-headed and feel the need to lie down. You have pain or numbness in the arm or leg closest to your puncture site. Get help right away if: Your puncture site suddenly swells. Your puncture site is bleeding and the bleeding does not stop after applying firm pressure to the area. These symptoms may represent a serious problem that is an emergency. Do not wait to see if the symptoms will go away. Get medical help right away. Call your local emergency services (911 in the [place] Do not drive yourself to the hospital. Summary After the procedure, it is normal to have bruising and tenderness at the puncture site in your groin, neck, or forearm. Check your puncture site every day for signs of infection. Get help right away if your puncture site is bleeding and the bleeding does not stop after applyingfirm pressure to the area. This is a medical emergency. This information is not intended to replace advice given to you by your health care provider. Make sure you discuss any questions you have with your health care provider. Document Released: 06/11/2017 Document Revised: 02/12/2018 Document Reviewed: 06/11/2017 [employer] Patient Education 2020 [employer]. 03/27/2023 19:20:45 Cardiac Ablation, Gofv-ar-Jifz Cardiac Ablation Cardiac ablation is a procedure to stop some heart tissue from causing problems. The heart has manyelectrical connections. Sometimes these connections make the heart beat very fast or irregularly. Removing some problem areas can improve the heart rhythm or make it normal. What happens before the procedure? Follow instructions from your doctor about what you cannot eat or drink. Ask your doctor about: ?Changing or stopping your normal medicines. This is important if you take diabetes medicines or blood thinners. ?Taking medicines such as aspirin and ibuprofen. These medicines can thin your blood. Do not take these medicines before your procedure if your doctor tells you not to. Plan to have someone take you home. If you will be going home right after the procedure, plan to have someone with you for 24 hours. What happens during the procedure? To lower your risk of infection: ?Your health care team will wash or sanitize their hands. ?Your skin will be washed with soap. ?Hair may be removed from your neck or groin. An IV tube will be put into one of your veins. You will be given a medicine to help you relax (sedative). Skin on your neck or groin will be numbed. A cut (incision) will be made in your neck or groin. A needle will be put through your cut and into a vein in your neck or groin. A tube (catheter) will be put into the needle. The tube will be moved to your heart. X-rays (fluoroscopy) will be used to help guide the tube. Small devices (electrodes) on the tip of the tube will send out electrical currents. Dye may be put through the tube. This helps your surgeon see your heart. Electrical energy will be used to scar (ablate) some heart tissue. Your surgeon may use: ?Heat (radiofrequency energy). ?Laser energy. ?Extreme cold (cryoablation). The tube will be taken out. Pressure will be held on your cut. This helps stop bleeding. A bandage (dressing) will be put on your cut. The procedure may vary. What happens after the procedure? You will be monitored until your medicines have worn off. Your cut will be watched for bleeding. You will need to lie still for a few hours. Do not drive for 24 hours or as long as your doctor tells you. Summary Cardiac ablation is a procedure to stop some heart tissue from causing problems. Electrical energy will be used to scar (ablate) some heart tissue. This information is not intended to replace advice given to you by your health care provider. Make sure you discuss any questions you have with your health care provider. Document Released: 11/02/2013 Document Revised: 02/12/2018 Document Reviewed: 01/19/2017 [employer] Patient Education 2020 [employer]. Follow Up Care 03/05/2023 13:55:32 With:MALISSA RASCON MD Address: [address] [place] [address]- When: Unknown Comments:PLEASE CALL THIS OFFICE TO SCHEDULE A HOSPITAL FOLLOW UP APPOINTMENT. With:AZAR KAHN MD Address: [address] [place] [address]- [phone] When:04/13/2023 10:45:00 With:DMITRY MCKEON MD Address: [address] [place] [address]- [phone] When:06/01/2023 13:45:00 With:[facility] Address:Unknown When: only if needed Comments:This is your C provider; you will receive PT/OT Nursing services. [facility] shouldreach out to you 24-48 hrs from discharge; please call [phone], with your questions or concerns regarding [facility]. [facility] 01-12-2024 Note Discharge Instructions Thank you for allowing [facility] to assist you with your healthcare needs. The following is importantdischarge information regarding your hospital visit. 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 Chronic insomnia COPD (chronic obstructive pulmonary disease) Retroperitoneal hemorrhage complicating cardiac catheterization Right shoulder pain What to do next Scheduled Follow-Up Appointments Appointment Type When Where Contact InformationCV OV Hospital Follow Up 04/13/2023 10:45 AM EST [facility] CV OV 06/01/2023 01:45 PM EDT [facility] Follow Up Appointments Follow Up with DMITRY MCKEON MD When 06/01/2023 01:45 PM EDT Where: [address] [place] [address]- [phone] Follow Up with AZAR KAHN MD When 04/13/2023 10:45 AM EST Where: [address] [facility] [place] [address]- [phone] Follow Up with MALISSA RASCON MD When Why: PLEASE CALL THIS OFFICE TO SCHEDULE A HOSPITAL FOLLOW UP APPOINTMENT. Where: [place] [address]- Follow Up with [facility] When Only if needed Why: This is your HHC provider; you will receive PT/OT Nursing services. [facility] should reach out to you 24-48 hrs from discharge; please call [phone], with your questions or concerns regarding [facility]. The Following Activity and Diet Have Been Ordered for You No qualifying data available. No qualifying data available. The Following Equipment Has Been Ordered for You No qualifying data available. The Following Treatments Have Been Ordered for You Discharge Labs No qualifying data available. Discharge Radiology No qualifying data available. Other Therapies No qualifying data available. Post Acute Orders No qualifying data available. Someone Will Contact You Regarding These Home Health Referrals No home referrals have been ordered for you. No one will call you. Allergies NKA Medications Please ask your primary doctor or pharmacist before taking any other medication not listed, including over the counter drugs, herbal medications, vitamins and or supplements as they may interact withyour home medications. What How Much When Why Instructions Last Dose New bumetanide (bumetanide 1 mg oral tablet) 1 tab(s) by mouth Every day Refills: 3 Pickup at [facility] #[id number] New doxycycline (doxycycline hyclate 100 mg oral capsule) 1 cap by mouth Two (2) times a day Duration: 10 Days Pickup at [facility] #[id number] New midodrine (midodrine 5 mg oral tablet) 1 tab(s) by mouth Three (3) times a day Refills: 3 Pickup at [facility] #[id number] New pantoprazole (Protonix 40 mg oral enteric coated tablet) 1 tab(s) by mouth Two (2) times daily before meals Refills: 3 Pickup at [facility] #[id number] New potassium chloride (Potassium Chloride (Eqv-K-Tab) 20 mEq oral tablet, extended release) 1 tab(s) by mouth Once a day Refills: 3 Pickup at [facility] #[id number] Changed finasteride (finasteride 5 mg oral tablet) 1 tab(s) by mouth Once a day Unchanged apixaban (Eliquis 5 mg oral tablet) 1 tab(s) by mouth Two (2) times a day Unchanged budesonide (budesonide 1 mg/ 2 mL inhalation suspension) 1 Milliliter by inhalation Two (2) times a day Duration: 30 Days Unchanged cholecalciferol (Vitamin D3) Once a day Unchanged cyanocobalamin (Vitamin B12) See instructions Unchanged dofetilide (Tikosyn 250 mcg oral capsule) 1 cap by mouth Every 12 hours Unchanged DULoxetine (Cymbalta 60 mg oral delayed release capsule) 2 cap by mouth Once a day Right shoulder pain Back pain Duration: 90 Days Unchanged empagliflozin (Jardiance 25 mg oral tablet) 0.5 tab(s) by mouth Once a day (in the morning) Unchanged guaiFENesin (Mucinex 600 mg oral tablet, extended release) 1 tab(s) by mouth Every 12 hours Unchanged levalbuterol (Xopenex 0.63 mg/ 3 mL inhalation solution) 3 Milliliter Nebulized inhalation Three (3) times a day COPD (chronic obstructive pulmonary disease) DC albuterol d/ t afib with RVR. 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 Bring all medications you take, including over the counter medications, herbals and other supplements with you to your doctor s visit. Patients and families are reminded to discard old lists and to update any records with all medication providers or retail pharmacies. Medication Leaflets midodrine (MY ham drin) What is the most important information I should know about midodrine? You should not use midodrine if you have severe heart disease, overactive thyroid, an adrenal glandtumor, kidney disease, if you are unable to urinate, or if your blood pressure is high even while lying down. Midodrine can increase blood pressure even when you are at rest. This medicine should be used only if you have severely low blood pressure that affects your daily life. Midodrine may not improve yourability to perform daily activities. What is midodrine? Midodrine works by constricting (narrowing) the blood vessels and increasing blood pressure. Midodrine is used to treat low blood pressure (hypotension) that causes severe dizziness or a light-headed feeling, like you might pass out. This medicine is for use only when low blood pressure affects daily life. Midodrine may not improve your ability to perform daily activities. Midodrine may also be used for purposes not listed in this medication guide. What should I discuss with my healthcare provider before taking midodrine? You should not use midodrine if you are allergic to it, or if you have: severe heart disease; kidney disease, or if you are unable to urinate; pheochromocytoma (tumor of the adrenal gland); overactive thyroid; or high blood pressure even while lying down. To make sure midodrine is safe for you, tell your doctor if you have: diabetes; glaucoma or a history of vision problems; liver disease; or a history of kidney disease. It is not known whether this medicine will harm an unborn baby. Tell your doctor if you are or plan to become . It is not known whether midodrine passes into breast milk or if it could harm a nursing baby. Tell your doctor if you are breast-feeding a baby. How should I take midodrine? Follow all directions on your prescription label. Do not take this medicine in larger or smaller amounts or for longer than recommended. Midodrine is usually taken 3 times per day, with doses spaced at least 3 hours apart. Take your last dose of the day within 3 or 4 hours before bedtime. You may take midodrine with or without food. Take this medicine during your normal waking hours, when your are most likely to be upright and notlying down or napping. Ask your doctor about how to take this medicine if you normally lie down during the day. Midodrine can increase your blood pressure even while you are lying down or sleeping (when blood pressure is usually lowest). Long-term high blood pressure (hypertension) can lead to serious medical problems. Follow your doctor's instructions about the best way to position your body while you are laying down or sleeping. You may need to keep your head elevated to help prevent high blood pressure. Your blood pressure will need to be checked before and during treatment with midodrine. Check your blood pressure while you are lying down, and check it again with your head elevated. Your kidney and liver function may also need to be checked. Midodrine is only part of a treatment program that may also include lifestyle changes, wearing support stockings on your legs, and possibly special medical care. Follow your doctor's instructions very closely. Store at room temperature away from moisture and heat. What happens if I miss a dose? Take the missed dose as soon as you remember. Skip the missed dose if it is almost time for your next scheduled dose. Do not take extra medicine to make up the missed dose. You may need to skip a dose if you will be resting or lying down for a long period of time during your normal waking hours. Talk to your doctor about how to adjust your dose schedule if needed. What happens if I overdose? Seek emergency medical attention or call the Poison Help line at . Symptoms of a midodrine overdose may include increased blood pressure (flushing, headache, poundingheartbeat, blurred vision), goosebumps, feeling cold, or trouble urinating. What should I avoid while taking midodrine? Avoid taking a dose within less than 3 hours before your normal bedtime. Ask a doctor or pharmacist before using any zxvy-rbg-pydikmq diet pills, or cough/cold medicine that contains phenylephrine or pseudoephedrine. These medicines may raise your blood pressure. What are the possible side effects of midodrine? Get emergency medical help if you have any of these signs of an allergic reaction: hives; difficultbreathing; swelling of your face, lips, tongue, or throat. Stop taking midodrine and call your doctor at once if you have: severely slowed heart rate--weak pulse, severe dizziness or light-headed feeling; or dangerously high blood pressure--severe headache, pounding sensation in your ears ('hearing' your heartbeats), blurred vision, buzzing in your ears, anxiety, confusion, chest pain, shortness of breath, uneven heartbeats, seizure. Common side effects may include: chills, goosebumps; numbness, tingling, or itching (especially in your scalp); headache, dizziness, tired feeling; nausea; or increased urination, painful or difficult urination, or sudden urge to urinate. This is not a complete list of side effects and others may occur. Call your doctor for medical advice about side effects. You may report side effects to FDA at 3-274-NXL-8751. What other drugs will affect midodrine? Taking midodrine with other drugs that constrict blood vessels can further increase your blood pressure. Tell your doctor about all your current medicines and any you start or stop using, especially: digoxin, digitalis, droxidopa, fludrocortisone an antidepressant; asthma medicine; heart or blood pressure medicine; migraine headache medicine; thyroid medicine such as levothyroid or Synthroid; drugs to treat high blood pressure or a prostate disorder--prazosin, terazosin, or doxazosin; or an MAO inhibitor--isocarboxazid, linezolid, methylene blue injection, phenelzine, rasagiline, selegiline, tranylcypromine. This list is not complete. Other drugs may interact with midodrine, including prescription and rxew-qkq-cajegpk medicines, vitamins, and herbal products. Not all possible interactions are listed in this medication guide. Where can I get more information? Your pharmacist can provide more information about midodrine. Remember, keep this and all other medicines out of the reach of children, never share your medicines with others, and use this medication only for the indication prescribed. Every effort has been made to ensure that the information provided by [employer]') is accurate, up-to-date, and complete, but no guarantee is made to that effect. Drug information contained herein may be time sensitive. [employer] information has been compiled for use by healthcare practitioners and consumers in the [place] and therefore [employer] does not warrant that uses outside of the [place] are appropriate, unless specifically indicated otherwise. [employer] drug information does not endorse drugs, diagnose patients or recommend therapy. [employer] drug information isan informational resource designed to assist licensed healthcare practitioners in caring for their p atients and/or to serve consumers viewing this service as a supplement to, and not a substitute for, the expertise, skill, knowledge and judgment of healthcare practitioners. The absence of a warningfor a given drug or drug combination in no way should be construed to indicate that the drug or drug combination is safe, effective or appropriate for any given patient. [employer] does not assume any responsibility for any aspect of healthcare administered with the aid of information [employer] provides. The information contained herein is not intended to cover all possible uses, directions, precautions, warnings, drug interactions, allergic reactions, or adverse effects. If you have questions about the drugs you are taking, check with your doctor, nurse or pharmacist. Copyright 6164-3015 [employer]. Version: 4.01. Revision Date: 04/30/2016. metoprolol (oral/injection) (me TOE pro lol) Kapspargo Elvieinkle, Lopressor, Metoprolol Succinate ER, Metoprolol Tartrate, Toprol-XL What is the most important information I should know about metoprolol? You should not use this medicine if you have a serious heart problem (heart block, sick sinus syndrome, slow heart rate), severe circulation problems, severe heart failure, or a history of slow heartbeats that caused fainting. What is metoprolol? Metoprolol is a beta-megan that affects the heart and circulation (blood flow through arteries and veins). Metoprolol is used to treat angina (chest pain) and hypertension (high blood pressure). It is also used to lower your risk of or needing to be hospitalized for heart failure. Metoprolol injection is used during the early phase of a heart attack to lower the risk of . Metoprolol may also be used for other purposes not listed in this medication guide. What should I discuss with my healthcare provider before taking metoprolol? You should not use this medicine if you are allergic to metoprolol, or other beta-blockers (atenolol, carvedilol, labetalol, nadolol, nebivolol, propranolol, sotalol, and others), or if you have: a serious heart problem such as heart block, sick sinus syndrome, or slow heart rate; severe circulation problems; severe heart failure (that required you to be in the hospital); or a history of slow heart beats that have caused you to faint. Tell your doctor if you have ever had: asthma, chronic obstructive pulmonary disease (COPD), sleep apnea, or other breathing disorder; diabetes (taking metoprolol may make it harder for you to tell when you have low blood sugar); liver disease; congestive heart failure; problems with circulation (such as Raynaud's syndrome); a thyroid disorder; or pheochromocytoma (tumor of the adrenal gland). Do not give this medicine to a child without medical advice. Tell your doctor if you are or plan to become . It is not known whether metoprolol will harm an unborn baby. However, having high blood pressure during may cause complications such as diabetes or eclampsia (dangerously high blood pressure that can lead to medical problems in both mother and baby). The benefit of treating hypertension may outweigh any risks to the baby. Ask a doctor before using this medicine if you are breast-feeding. Metoprolol can pass into breast milk and may cause dry skin, dry mouth, diarrhea, constipation, or slow heartbeats in your baby. How should I take metoprolol? Follow all directions on your prescription label and read all medication guides or instruction sheets. Your doctor may occasionally change your dose. Use the medicine exactly as directed. Metoprolol should be taken with a meal or just after a meal. Take the medicine at the same time each day. Swallow the capsule whole and do not crush, chew, break, or open it. A Toprol XL tablet can be divided in half if your doctor has told you to do so. Swallow the half-tablet whole, without chewing or crushing. Measure liquid medicine carefully. Use the dosing syringe provided, or use a medicine dose-measuring device (not a kitchen spoon). You will need frequent medical tests, and your blood pressure will need to be checked often. If you need surgery, tell the surgeon ahead of time that you are using metoprolol. You should not stop using metoprolol suddenly. Stopping suddenly may make your condition worse. If you have high blood pressure, keep using this medicine even if you feel well. High blood pressure often has no symptoms. You may need to use metoprolol for the rest of your life. Store at room temperature away from moisture and heat. Metoprolol injection is given as an infusion into a vein. A healthcare provider will give you this injection in a medical setting where your heart and blood pressure can be monitored. Metoprolol injections are given for only a short time before switching you to the oral form of this medicine. What happens if I miss a dose? Skip the missed dose and use your next dose at the regular time. Do not use two doses at one time. What happens if I overdose? Seek emergency medical attention or call the Poison Help line at . What should I avoid while taking metoprolol? Avoid driving or hazardous activity until you know how this medicine will affect you. Your reactions could be impaired. Drinking alcohol can increase certain side effects of metoprolol. What are the possible side effects of metoprolol? Get emergency medical help if you have signs of an allergic reaction: hives; difficulty breathing; swelling of your face, lips, tongue, or throat. Call your doctor at once if you have: very slow heartbeats; a light-headed feeling, like you might pass out; shortness of breath (even with mild exertion), swelling, rapid weight gain; or cold feeling in your hands and feet. Common side effects may include: dizziness, tired feeling; depression, confusion, memory problems; nightmares, trouble sleeping; diarrhea; or mild itching or rash. This is not a complete list of side effects and others may occur. Call your doctor for medical advice about side effects. You may report side effects to FDA at 1-972-TVH-5993. What other drugs will affect metoprolol? Tell your doctor about all your current medicines. Many drugs can affect metoprolol, especially: any other heart or blood pressure medications; epinephrine (Epi-Pen); an antidepressant; an ergot medicine--dihydroergotamine, ergonovine, ergotamine, methylergonovine; or an MAO inhibitor--isocarboxazid, linezolid, phenelzine, rasagiline, selegiline, tranylcypromine. This list is not complete and many other drugs may affect metoprolol. This includes prescription and lwgt-lqy-atzotmr medicines, vitamins, and herbal products. Not all possible drug interactions are listed here. Where can I get more information? Your pharmacist can provide more information about metoprolol. Remember, keep this and all other medicines out of the reach of children, never share your medicines with others, and use this medication only for the indication prescribed. Every effort has been made to ensure that the information provided by [employer]. [employer]') is accurate, up-to-date, and complete, but no guarantee is made to that effect. Drug information contained herein may be time sensitive. [employer] information has been compiled for use by healthcare practitioners and consumers in the [place] and therefore [employer] does not warrant that uses outside of the [place] are appropriate, unless specifically indicated otherwise. [employer] drug information does not endorse drugs, diagnose patients or recommend therapy. [employer] drug information isan informational resource designed to assist licensed healthcare practitioners in caring for their p atients and/or to serve consumers viewing this service as a supplement to, and not a substitute for, the expertise, skill, knowledge and judgment of healthcare practitioners. The absence of a warningfor a given drug or drug combination in no way should be construed to indicate that the drug or drug combination is safe, effective or appropriate for any given patient. [employer] does not assume any responsibility for any aspect of healthcare administered with the aid of information [employer] provides. The information contained herein is not intended to cover all possible uses, directions, precautions, warnings, drug interactions, allergic reactions, or adverse effects. If you have questions about the drugs you are taking, check with your doctor, nurse or pharmacist. Copyright 7171-6046 [employer]. Version: 19.01. Revision Date: 10/22/2022. empagliflozin (MICHAEL alford) Jardiance What is the most important information I should know about empagliflozin? Call your doctor at once if you have signs of a serious side effect, such as stomach pain, vomiting, tiredness, or trouble breathing. Tell your doctor if you are sick with vomiting or diarrhea, or if you eat or drink less than usual. Empagliflozin can cause serious infections around the penis or vagina. Get medical help right away if you have burning, itching, odor, discharge, pain, tenderness, redness or swelling of the genital or rectal area, fever, or if you don't feel well. What is empagliflozin? Empagliflozin is used together with diet and exercise to lower blood sugar levels in adults and children at least 10 years old with type 2 diabetes. Empagliflozin is also used to lower the risk of from heart attack, stroke, or heart failure in adults with type 2 diabetes who also have heart disease. Empagliflozin is also used in adults to lower the risk of dying or needing to be in a hospital for heart failure when the heart cannot pump blood properly. Empagliflozin is not for treating type 1 diabetes. Empagliflozin may also be used for purposes not listed in this medication guide. What should I discuss with my healthcare provider before taking empagliflozin? You should not use empagliflozin if you are allergic to it, or if you have: severe kidney disease (or if you are on dialysis). Tell your doctor if you have or have ever had: a bladder infection or urination problems; a genital infection (penis or vagina); problems with your pancreas, including surgery; alcoholism, or if you currently drink large amounts of alcohol; if you are on a low salt diet, you are eating less, or there is a change in your diet; if you are 65 or older; or liver or kidney disease. Follow your doctor's instructions about using this medicine if you are or you become . Controlling diabetes is very important during . You should not use empagliflozin during the second or third trimester of . Do not breastfeed. How should I take empagliflozin? Follow all directions on your prescription label and read all medication guides or instruction sheets. Your doctor may occasionally change your dose. Use the medicine exactly as directed. Take empagliflozin once a day in the morning, with or without food. Your blood sugar will need to be checked often, and you may also need to test the level of ketones in your urine. Empagliflozin can cause life-threatening ketoacidosis (too much acid in the blood). Even if your blood sugar is normal, contact your doctor if a urine test shows that you have high ketones in the urine. Blood sugar can be affected by stress, illness, surgery, exercise, alcohol use, or skipping meals. Low blood sugar (hypoglycemia) can make you feel very hungry, dizzy, irritable, or shaky. To quickly treat hypoglycemia, eat or drink hard candy, crackers, raisins, fruit juice, or non-diet soda. Your doctor may prescribe glucagon injection in case of severe hypoglycemia. You may get dehydrated during prolonged illness. Call your doctor if you are sick with vomiting or diarrhea. This medicine can affect the results of certain medical tests. Tell any doctor who treats you that you are using empagliflozin. Your treatment may also include diet, exercise, weight control, and special medical care. Tell your doctor if you have a planned surgery. Store at room temperature away from moisture and heat. What happens if I miss a dose? Take the medicine as soon as you can, but skip the missed dose if it is almost time for your next dose. Do not take two doses at one time. What happens if I overdose? Seek emergency medical attention or call the Poison Help line at . What should I avoid while taking empagliflozin? Avoid drinking alcohol. Avoid getting up too fast from a sitting or lying position, or you may feel dizzy. What are the possible side effects of empagliflozin? Get emergency medical help if you have signs of an allergic reaction: hives, difficult breathing, swelling of your face, lips, tongue, or throat. Seek medical attention right away if you have signs of a serious genital infection (penis or vagina): burning, itching, odor, discharge, pain, tenderness, redness or swelling of the genital or rectalarea, fever, not feeling well. These symptoms may get worse quickly. Call your doctor at once if you have: a light-headed feeling, like you might pass out; low blood sugar--headache, hunger, weakness, sweating, confusion, irritability, dizziness, fast heart rate, or feeling jittery; dehydration--dizziness, confusion, feeling very thirsty, less urination; ketoacidosis (too much acid in the blood)--nausea, vomiting, stomach pain, confusion, unusual drowsiness, or trouble breathing; or signs of a bladder infection--pain or burning when you urinate, blood in your urine, pain in pelvisor back. Common side effects may include: a bladder infection; or yeast infection in women (vaginal itching or discharge). This is not a complete list of side effects and others may occur. Call your doctor for medical advice about side effects. You may report side effects to FDA at 4-439-SYC-4275. What other drugs will affect empagliflozin? Tell your doctor about all your other medicines, especially: insulin, or other oral diabetes medicine; or a diuretic or 'water pill.' This list is not complete. Other drugs may affect empagliflozin, including prescription and kaae-qoc-tequmui medicines, vitamins, and herbal products. Not all possible drug interactions are listed here. Where can I get more information? Your doctor or pharmacist can provide more information about empagliflozin. Remember, keep this and all other medicines out of the reach of children, never share your medicines with others, and use this medication only for the indication prescribed. Every effort has been made to ensure that the information provided by [employer]') is accurate, up-to-date, and complete, but no guarantee is made to that effect. Drug information contained herein may be time sensitive. [employer] information has been compiled for use by healthcare practitioners and consumers in the [place] and therefore [employer] does not warrant that uses outside of the [place] are appropriate, unless specifically indicated otherwise. [employer] drug information does not endorse drugs, diagnose patients or recommend therapy. [employer] drug information isan informational resource designed to assist licensed healthcare practitioners in caring for their p atients and/or to serve consumers viewing this service as a supplement to, and not a substitute for, the expertise, skill, knowledge and judgment of healthcare practitioners. The absence of a warningfor a given drug or drug combination in no way should be construed to indicate that the drug or drug combination is safe, effective or appropriate for any given patient. [employer] does not assume any responsibility for any aspect of healthcare administered with the aid of information [employer] provides. The information contained herein is not intended to cover all possible uses, directions, precautions, warnings, drug interactions, allergic reactions, or adverse effects. If you have questions about the drugs you are taking, check with your doctor, nurse or pharmacist. Copyright 4404-6604 [employer]. Version: 6.01. Revision Date: 11/10/2022. Education Materials Cardiac Ablation, Care After This sheet gives you information about how to care for yourself after your procedure. Your health care provider may also give you more specific instructions. If you have problems or questions, contact your health care provider. What can I expect after the procedure? After the procedure, it is common to have: Bruising around your puncture site. Tenderness around your puncture site. Skipped heartbeats. Tiredness (fatigue). Follow these instructions at home: Puncture site care Follow instructions from your health care provider about how to take care of your puncture site. Make sure you: ? Wash your hands with soap and water before you change your bandage (dressing). If soap and water are not available, use hand resident care aide. ? Change your dressing as told by your health care provider. ? Leave stitches (sutures), skin glue, or adhesive strips in place. These skin closures may need to stay in place for up to 2 weeks. If adhesive strip edges start to loosen and curl up, you may trim the loose edges. Do not remove adhesive strips completely unless your health care provider tells you to do that. Check your puncture site every day for signs of infection. Check for: ? Redness, swelling, or pain. ? Fluid or blood. If your puncture site starts to bleed, lie down on your back, apply firm pressure to the area, and contact your health care provider. ? Warmth. ? Pus or a bad smell. Driving Ask your health care provider when it is safe for you to drive again after the procedure. Do not drive or use heavy machinery while taking prescription pain medicine. Do not drive for 24 hours if you were given a medicine to help you relax (sedative) during your procedure. Activity Avoid activities that take a lot of effort for at least 3 days after your procedure. Do not lift anything that is heavier than 10 lb (4.5 kg), or the limit that you are told, until your health care provider says that it is safe. Return to your normal activities as told by your health care provider. Ask your health care provider what activities are safe for you. General instructions Take lgow-fqt-qjejncc and prescription medicines only as told by your health care provider. Do not use any products that contain nicotine or tobacco, such as cigarettes and e-cigarettes. If you need help quitting, ask your health care provider. Do not take baths, swim, or use a hot tub until your health care provider approves. Do not drink alcohol for 24 hours after your procedure. Keep all follow-up visits as told by your health care provider. This is important. Contact a health care provider if: You have redness, mild swelling, or pain around your puncture site. You have fluid or blood coming from your puncture site that stops after applying firm pressure to the area. Your puncture site feels warm to the touch. You have pus or a bad smell coming from your puncture site. You have a fever. You have chest pain or discomfort that spreads to your neck, jaw, or arm. You are sweating a lot. You feel nauseous. You have a fast or irregular heartbeat. You have shortness of breath. You are dizzy or light-headed and feel the need to lie down. You have pain or numbness in the arm or leg closest to your puncture site. Get help right away if: Your puncture site suddenly swells. Your puncture site is bleeding and the bleeding does not stop after applying firm pressure to the area. These symptoms may represent a serious problem that is an emergency. Do not wait to see if the symptoms will go away. Get medical help right away. Call your local emergency services (911 in the [place] Do not drive yourself to the hospital. Summary After the procedure, it is normal to have bruising and tenderness at the puncture site in your groin, neck, or forearm. Check your puncture site every day for signs of infection. Get help right away if your puncture site is bleeding and the bleeding does not stop after applyingfirm pressure to the area. This is a medical emergency. This information is not intended to replace advice given to you by your health care provider. Make sure you discuss any questions you have with your health care provider. Document Released: 06/11/2017 Document Revised: 02/12/2018 Document Reviewed: 06/11/2017 [employer] Patient Education 2020 [employer] Cardiac Ablation Cardiac ablation is a procedure to stop some heart tissue from causing problems. The heart has manyelectrical connections. Sometimes these connections make the heart beat very fast or irregularly. Removing some problem areas can improve the heart rhythm or make it normal. What happens before the procedure? Follow instructions from your doctor about what you cannot eat or drink. Ask your doctor about: ? Changing or stopping your normal medicines. This is important if you take diabetes medicines or blood thinners. ? Taking medicines such as aspirin and ibuprofen. These medicines can thin your blood. Do not take these medicines before your procedure if your doctor tells you not to. Plan to have someone take you home. If you will be going home right after the procedure, plan to have someone with you for 24 hours. What happens during the procedure? To lower your risk of infection: ? Your health care team will wash or sanitize their hands. ? Your skin will be washed with soap. ? Hair may be removed from your neck or groin. An IV tube will be put into one of your veins. You will be given a medicine to help you relax (sedative). Skin on your neck or groin will be numbed. A cut (incision) will be made in your neck or groin. A needle will be put through your cut and into a vein in your neck or groin. A tube (catheter) will be put into the needle. The tube will be moved to your heart. X-rays (fluoroscopy) will be used to help guide the tube. Small devices (electrodes) on the tip of the tube will send out electrical currents. Dye may be put through the tube. This helps your surgeon see your heart. Electrical energy will be used to scar (ablate) some heart tissue. Your surgeon may use: ? Heat (radiofrequency energy). ? Laser energy. ? Extreme cold (cryoablation). The tube will be taken out. Pressure will be held on your cut. This helps stop bleeding. A bandage (dressing) will be put on your cut. The procedure may vary. What happens after the procedure? You will be monitored until your medicines have worn off. Your cut will be watched for bleeding. You will need to lie still for a few hours. Do not drive for 24 hours or as long as your doctor tells you. Summary Cardiac ablation is a procedure to stop some heart tissue from causing problems. Electrical energy will be used to scar (ablate) some heart tissue. This information is not intended to replace advice given to you by your health care provider. Make sure you discuss any questions you have with your health care provider. Document Released: 11/02/2013 Document Revised: 02/12/2018 Document Reviewed: 01/19/2017 [employer] Patient Education 2020 [employer] Additional Information VACCINATE! IT SAVES LIVES! Members of the community who have not yet received the COVID-19 vaccine and would like to receive it can visit one of [place] vaccine clinics. There are many vaccine clinic locations within the State. For locations and available times, please visit [email or web address].[place].gov/. It is important to note that some COVID mobile vaccine clinics are held outdoors and may be canceled in rainy or stormy conditions. To learn more about pediatric vaccinations (ages 5-11), we invite you to visit the [facility] webpage. [email or web address] learn more about the COVID-19 vaccine, we invite you to visit the CDC website for a list of frequently asked questions.https://www.cdc.gov/coronavirus/2019-ncov/vaccines/faq.html [employer] Patient Portal Access Instructions: Stay connected with your healthcare team and access your personal medical information anytime with the [employer] Patient Portal. Please follow the directions below to create your [employer] account: 1.Access the email account you provided upon registration to the hospital/physician office.2.Look for an invitation email from [facility].3.Open the email and access the invitation link: AcceptInvitation to [facility].4.Fill in the required banks to create your account. To access your account, visit [email or web address]. Click the blue button labeled Access Patient Portal and then log in with the username and password that you created in the steps above. You will be able to view your test results, lab results, a summary of your visits, upcoming appointments and more. There is also a convenient messaging option where you can send secure messages to your p rovider. In addition, you will have the ability to download any documents or summaries to your computer and/or send the information securely to a physician. Remember that your healthcare information is confidential, so carefully consider who you will allowto register on the [employer] Patient Portal for access to your information. You can also access the [facility] Patient Portal on the [email or web address] Anywhere tip. Simply click on Patient Portal and then log into your account. If you would like to receive a full copy of your medical records, please contact the [facility] Medical Records Department by calling [phone], Thursday through Thursday between 8 a.m. and 4:30 p.m. HOW TO SAFELY DISPOSE OF PRESCRIPTION MEDICATIONS Please use one of the following methods to safely dispose of your unused medications. 1.Use a drug disposal kit: the drug disposal pouch allows you to safely discard your old and unuseddrugs. Ask your nurse to give you one when you are discharged.2.Visit a local take-back location: Many local pharmacies and police departments have programs that collect old and unwanted prescriptiondrugs. Call your local pharmacy or go to http://[employer].NovoPedics/8P5Hw9c to find one close to you.3.Make use of household items: Use cat litter or old coffee grounds to dispose medications if other options arenot available. Mix your drugs with these household products, seal them in an airtight container andthrow it into the garbage. Call [facility]: [phone] to be sure your drugs can be disposed of in this way. Some medicines may require a different approach.4.Never flush your medications down the toilet. IF YOU HAVE BEEN PRESCRIBED AN OPIOID FOR PAIN If you have been prescribed an opioid (such as hydrocodone, oxycodone or morphine), it is critical to understand the possible side effects and risks of opioid pain medications. Even when taken as directed, opioids can have several side effects including: Tolerance, meaning you might need to take more of (more content not included)... [id number] Heart failure Progress note Date of Service 03/27/2023 Chief Complaint CHF exacerbation Subjective Patient seen and examined at bedside. Currently hemodynamically stable in no acute distress. Hemoglobin stable at 9.1 today. Net -2.9 L with 3.3 L urine output over last 24 hours. No overnight events Objective Vitals and Measurements T: 36.9 C (Oral) TMIN: 36.6 C (Oral) TMAX: 37.0 C (Oral) HR: 89(Monitored) RR: 16 BP: 98/64 BP: 90/50(Line) SpO2: 90% Intake and Output 7AM Yesterday to 7AM Today Intake and Output (Last 24 hours) Intake Oral Intake 340.00 Output Urine Voided 3250.00 Stool Count 1.00 Total Summary Total Intake 340.00 Total Output 3250.00 Fluid Balance -2910.00 Physical Exam GENERAL: Patient is under no acute distress,and in no discomfort HEAD: Normocephalic, Atraumatic EYES/EARS: Pupils are equal and reactive, No scleral icterus. NOSE: Normal appearing nasal nares MOUTH Good oral hygiene, Moist oral mucosa, no pharyngeal erythema or exudates noted, undeviated uvula NECK: Supple, Nontender, No thyromegaly, JVD present, Midline trachea, No lymphadenopathy PULMONARY: Normal breathing effort, mild crackles on auscultation bilaterally CARDIAC: RRR, Normal S1-S2, no murmur, gallops, or rubs. 1+ lower extremity edema. ABDOMEN: soft, Nontender, Normal active bowel sounds BACK: No obvious deformities. : Deferred MSK: Warm bilaterally chronic skin changes noted SKIN: No PATHOLOGIC moles, rashes, lesions or ulcers were noted other than what is listed above NEURO: Alert and Oriented 4, Cranial nerves II to XII grossly intact. No focal. deficits grossly noted PSYCH: Pleasant, Good attention Weight Current Weight Dosing Weight: 90.6 kg (03/23/23) Current Weight: 83.7 kg (03/24/23) Current Weight: 80.4 kg (03/23/23) Medications Medications (23) Active Scheduled: (15) albuterol - ipratropium 2.5 mg-0.5 mg/3 mL Inhal Brunilda UD 3 mL, Inhalation, QIDRT budesonide 0.5 mg/2 mL Susp UD 0.5 mg 2 mL, Inhalation, BIDRT dofetilide 250 mcg capsule 250 mcg 1 cap(s), Oral, q12h doxycycline hyclate 100 mg Capsule 100 mg 1 cap(s), Oral, BID duloxetine [address] capsule 120 mg 2 cap(s), Oral, qDay empagliflozin 10 mg tablet 10 mg 1 tab(s), Oral, qAM finasteride 1 mg tablet 1 mg 1 tab(s), Oral, qDay furosemide 40 mg/4 mL vial 40 mg 4 mL, IV Push, BID guaifenesin 600 mg ER 600 mg 1 tab(s), Oral, q12h LORAZEPam 0.5 mg tablet 0.5 mg 1 tab(s), Oral, qHS metoprolol succinate 25 mg ER tablet 25 mg 1 tab(s), Oral, qDay midodrine 5 mg tablet 5 mg 1 tab(s), Oral, TID pantoprazole 40 mg EC tablet 40 mg 1 tab(s), Oral, BIDAC rosuvastatin 5 mg tablet 5 mg 1 tab(s), Oral, Daily tamsulosin 0.4 mg Capsule 0.8 mg 2 cap(s), Oral, qHS Continuous: (1) norepinephrine 8 mg [5 mcg/min] + NS Premix Diluent 250 mL 250 mL, Intravenous, 9.38 mL/hr PRN: (7) acetaminophen 325 mg Tablet 650 mg 2 tab(s), Oral, q4h acetaminophen-HYDROcodone 325-5 mg tablet 1 tab(s), Oral, q4h albuterol - ipratropium 2.5 mg-0.5 mg/3 mL Inhal Brunilda UD 3 mL, Inhalation, q4hRT morphine 2 mg/mL 1 mL syringe 2 mg 1 mL, IV Push, q1h nitroglycerin 0.4 mg Tablet (25/btl) 0.4 mg 1 tab(s), Sublingual, q5min polyethylene glycol 3350 - UD packet 17 gram(s) 15 mL, Oral, qDay potassium chloride 10 mEq ER capsule 20 mEq 2 cap(s), Oral, AsDirected Lab Results 03/26 12:27 Hgb: 8.6 L Hct: 24.9 L 03/26 06:16 Glucose Level: 100 Sodium Level: 139 Potassium Level: 3.8 BUN: 10.0 Creatinine Lvl (s): 0.85 Imaging Results and Diagnostics XR Chest 1 View Result Date: March 24, 2023 Verified By: KASI MOSQUERA MD CLINICAL STATEMENT: IMPRESSION: Worsening bilateral basilar infiltrates consistent with pneumonia. Small bilateral pleural effusions. CT Angio GI Bleeding Scan Result Date: March 24, 2023 Verified By: LOUIS SOLANO MD CLINICAL STATEMENT: IMPRESSION: 1. Study is positive for left retroperitoneal hemorrhage extending to theleft pelvic extraperitoneal space. As discussed above, the pelvicextraperitoneal hemorrhage is the most prominent component and this could bethe origin of the bleeding. There is no contrast extravasation to indicate active hemorrhage on this exam.2. Diverticulosis without diverticulitis.3. Small bilateral pleural effusions with minimal adjacent atelectasis.4. IMPORTANT: PHYSICIAN, ATTEND TO THIS REPORT STONEY!!! XR Abdomen 2 Views w/ Decub/Erect Result Date: March 23, 2023 Verified By: HANH CORTEZ MD CLINICAL STATEMENT: IMPRESSION: Apparent dilatation of a loop of small bowel may represent adynamic ileus inthe settingof enteritis, in the absence of clinical evidence of obstruction. I have personally reviewed the images of this examination and agree with theresident's findings and interpretation. EKG I have reviewed all available EKGs, echocardiograms, stress test and cardiac catheterizations. Relevant laboratory data have also been reviewed. Assessment/Plan Hiram Doran is a 82-year-old male with a significant past medical history of paroxysmal atrial fibrillation (Tikosyn, metoprolol, and Eliquis), sinus node dysfunction worsened with medication, HFrEF(LVEF 45% 5), CAD, JORGE on CPAP, and COPD with pulmonary fibrosis who presented on 03/23/2023 for elective Cryo pulmonary vein antral isolation ablation for symptomatic paroxysmal atrial fibrillation. Hospitalization complicated with hypotension requiring IV fluids and retroperitoneal bleed requiring blood transfusion. Heart failure team consulted for assistance with CHF management. Impression: Paroxysmal atrial fibrillation s/p cryo pulmonary vein antral isolation ablation (03/23/2023) Sinus node dysfunction worse with medication HFrEF (45% 5) Acute CHF exacerbation CAD JORGE on CPAP COPD Retroperitoneal bleed Adynamic ileus in the setting of enteritis Plan: Patient presented on 03/23/2023 for elective cryo PVI ablation. Hospitalization has been complicated by hypotension requiring IV fluids and retroperitoneal bleed requiring blood transfusion. This has led to mild CHF exacerbation. Now near euvolemic. Continue IV Lasix 40 mg BID today. Patient will likely be transition to p.o. Bumex 1 mg daily starting tomorrow depending on fluid status. Continue midodrine dose to 5 mg TID and Jardiance. Remaining management per primary. Assessment and plan was discussed with Dr. Zimmer. Any changes in assessment/plan, will be added as an addendum to this note by the attending physician. This note was transcribed via voice recognition software. Please forgive any errors or typos resulting from the use of this technology. Gopal Garcia DO, MS [employer] (PGY-6) Pager [phone]/ Cortext Digitally Signed by GOPAL GARCIA DO on 03/27/2023 03:28 PM [id number] Note Date of Service March 27, 2023 Shared/Split visit with Dr. Alvarez Primary EP - Dr. Mckeon Chief Complaint AF Subjective this is an 82 history of atrial oorwjgkdvjjc-acmu-qef male with no Status post cryo PVI completed on March 2023. Patient had acute abdominal process with blood loss. The patient is noted to be slowly improving. Past medical history is significant for 1. Paroxysmal atrial fibrillation [id number] status post cryo PVI in March 2023 2. Acute abdominal process with blood loss 3. Sinus node dysfunction worse on AV dennis blocking agents 4. 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 COPD/JORGE 6. Acid reflux. Status post ablation the patient had significant hypotension corrected with fluids and pressor support. Patient was then was noted to have a drop in overall hemoglobin. Was admitted to CCU. Since then patient has been evaluated by vascular For left retroperitoneal hemorrhage -bleed stabilizing. Today, the patient is sitting upright in bedside chair. No acute distress. We had a discussion about possibly going to extended-care facility for rehab. He is adamant that he does not want to go unless absolutely necessary. He is being evaluated by physical therapy at this time. He notes his diarrhea is still suppressed. We did discuss if his diarrhea returns and they believe is related to his Tikosyn and not antibiotic use we may need to discontinue Tikosyn with initiation of a different antiarrhythmic. Objective Vitals and Measurements T: 36.4 C (Oral) TMIN: 36.4 C (Oral) TMAX: 37.0 C (Oral) HR: 92(Monitored) RR: 16 BP: 102/52 BP: 90/50(Line) SpO2: 92% Physical Exam General - 82 yr old male appearing stated age HEENT - head normocephalic, atraumatic. Pupils equal reactive to light. Nose patent bilaterally. Oropharynx without erythema or exudate. Neck -supple, full range of motion. No carotid bruits noted. Cardiovascular - Irregular rate and rhythm. No significant murmurs appreciated. Lungs - clear to auscultation bilaterally. Abdomen - soft, nontender. Bowel sounds present in all 4 quadrants. Musculoskeletal -full weightbearing. Full range of motion in all extremities. Skin -intact, no lesions or rashes noted. Neurological - cranial nerves grossly intact. Mood and affect appropriate to situation. Peripheral vascular - No pitting edema Weight Current Weight Dosing Weight: 90.6 kg (03/23/23) Current Weight: 83.7 kg (03/24/23) Current Weight: 80.4 kg (03/23/23) Medications Medications (23) Active Scheduled: (15) albuterol - ipratropium 2.5 mg-0.5 mg/3 mL Inhal Brunilda UD 3 mL, Inhalation, QIDRT budesonide 0.5 mg/2 mL Susp UD 0.5 mg 2 mL, Inhalation, BIDRT dofetilide 250 mcg capsule 250 mcg 1 cap(s), Oral, q12h doxycycline hyclate 100 mg Capsule 100 mg 1 cap(s), Oral, BID duloxetine [address] capsule 120 mg 2 cap(s), Oral, qDay empagliflozin 10 mg tablet 10 mg 1 tab(s), Oral, qAM finasteride 5 mg tablet 5 mg 1 tab(s), Oral, qDay furosemide 40 mg/4 mL vial 40 mg 4 mL, IV Push, BID guaifenesin 600 mg ER 600 mg 1 tab(s), Oral, q12h LORAZEPam 0.5 mg tablet 0.5 mg 1 tab(s), Oral, qHS metoprolol succinate 25 mg ER tablet 25 mg 1 tab(s), Oral, qDay midodrine 5 mg tablet 5 mg 1 tab(s), Oral, TID pantoprazole 40 mg EC tablet 40 mg 1 tab(s), Oral, BIDAC rosuvastatin 5 mg tablet 5 mg 1 tab(s), Oral, Daily tamsulosin 0.4 mg Capsule 0.8 mg 2 cap(s), Oral, qHS Continuous: (1) norepinephrine 8 mg [5 mcg/min] + NS Premix Diluent 250 mL 250 mL, Intravenous, 9.38 mL/hr PRN: (7) acetaminophen 325 mg Tablet 650 mg 2 tab(s), Oral, q4h acetaminophen-HYDROcodone 325-5 mg tablet 1 tab(s), Oral, q4h albuterol - ipratropium 2.5 mg-0.5 mg/3 mL Inhal Brunilda UD 3 mL, Inhalation, q4hRT morphine 2 mg/mL 1 mL syringe 2 mg 1 mL, IV Push, q1h nitroglycerin 0.4 mg Tablet (25/btl) 0.4 mg 1 tab(s), Sublingual, q5min polyethylene glycol 3350 - UD packet 17 gram(s) 15 mL, Oral, qDay potassium chloride 10 mEq ER capsule 20 mEq 2 cap(s), Oral, AsDirected Lab Results 03/27 08:12 WBC: 9.6 Hgb: 9.1 L Hct: 27.0 L Platelet: 241 Neutrophil %: 77.7 H Glucose Level: 106 Sodium Level: 140 Potassium Level: 4.0 BUN: 11.0 Creatinine Lvl (s): 0.94 03/26 12:27 Hgb: 8.6 L Hct: 24.9 L 03/26 06:16 Glucose Level: 100 Sodium Level: 139 Potassium Level: 3.8 BUN: 10.0 Creatinine Lvl (s): 0.85 EKG No qualifying data available. Assessment/Plan 1. Paroxysmal atrial fibrillation status post ablative therapies. Patient has occasional breakthrough episodes of nonsustained atrial tach. Continue to monitor. Hemoglobin has improved back to 9. Possibly plan for restarting Eliquis on Thursday, March 30, 2023with repeat labs 3 to 4 days afterwards for reevaluation of overall hemoglobin. 2. Retroperitoneal bleed (left-sided) Bleed has stabilized. Hemoglobin improved to 9.1. 3. Acute on chronic CHF. Dr. Zimmer's been consulted and will be giving Lasix for diuresing. 4. Ileus noted on x-ray GI is following. Patient recently had a large bowel movement. Will try to advance his diet. 5. Pneumonia. Patient still notes cough. However on physical exam and interview patient seemed improved and overall shortness of breath. No cough appreciated on physical exam. Digitally Signed by FRANCIA COATES on 03/27/2023 11:29 AM Digitally Signed by FRANCIA COATES on 03/27/2023 11:30 AM [id number] Note Date of Service March 27, 2023 Shared/Split visit with Dr. Alvarez Primary EP - Dr. Mckeon Chief Complaint AF Subjective this is an 82 history of atrial cakrscbvotaz-abeb-axd male with no Status post cryo PVI completed on March 2023. Patient had acute abdominal process with blood loss. The patient is noted to be slowly improving. Past medical history is significant for 1. Paroxysmal atrial fibrillation [id number] status post cryo PVI in March 2023 2. Acute abdominal process with blood loss 3. Sinus node dysfunction worse on AV dennis blocking agents 4. 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 COPD/JORGE 6. Acid reflux. Status post ablation the patient had significant hypotension corrected with fluids and pressor support. Patient was then was noted to have a drop in overall hemoglobin. Was admitted to CCU. Since then patient has been evaluated by vascular For left retroperitoneal hemorrhage -bleed stabilizing. Today, the patient is sitting upright in bedside chair. No acute distress. We had a discussion about possibly going to extended-care facility for rehab. He is adamant that he does not want to go unless absolutely necessary. He is being evaluated by physical therapy at this time. He notes his diarrhea is still suppressed. We did discuss if his diarrhea returns and they believe is related to his Tikosyn and not antibiotic use we may need to discontinue Tikosyn with initiation of a different antiarrhythmic. Objective Vitals and Measurements T: 36.4 C (Oral) TMIN: 36.4 C (Oral) TMAX: 37.0 C (Oral) HR: 92(Monitored) RR: 16 BP: 102/52 BP: 90/50(Line) SpO2: 92% Physical Exam General - 82 yr old male appearing stated age HEENT - head normocephalic, atraumatic. Pupils equal reactive to light. Nose patent bilaterally. Oropharynx without erythema or exudate. Neck -supple, full range of motion. No carotid bruits noted. Cardiovascular - Irregular rate and rhythm. No significant murmurs appreciated. Lungs - clear to auscultation bilaterally. Abdomen - soft, nontender. Bowel sounds present in all 4 quadrants. Musculoskeletal -full weightbearing. Full range of motion in all extremities. Skin -intact, no lesions or rashes noted. Neurological - cranial nerves grossly intact. Mood and affect appropriate to situation. Peripheral vascular - No pitting edema Weight Current Weight Dosing Weight: 90.6 kg (03/23/23) Current Weight: 83.7 kg (03/24/23) Current Weight: 80.4 kg (03/23/23) Medications Medications (23) Active Scheduled: (15) albuterol - ipratropium 2.5 mg-0.5 mg/3 mL Inhal Brunilda UD 3 mL, Inhalation, QIDRT budesonide 0.5 mg/2 mL Susp UD 0.5 mg 2 mL, Inhalation, BIDRT dofetilide 250 mcg capsule 250 mcg 1 cap(s), Oral, q12h doxycycline hyclate 100 mg Capsule 100 mg 1 cap(s), Oral, BID duloxetine [address] capsule 120 mg 2 cap(s), Oral, qDay empagliflozin 10 mg tablet 10 mg 1 tab(s), Oral, qAM finasteride 5 mg tablet 5 mg 1 tab(s), Oral, qDay furosemide 40 mg/4 mL vial 40 mg 4 mL, IV Push, BID guaifenesin 600 mg ER 600 mg 1 tab(s), Oral, q12h LORAZEPam 0.5 mg tablet 0.5 mg 1 tab(s), Oral, qHS metoprolol succinate 25 mg ER tablet 25 mg 1 tab(s), Oral, qDay midodrine 5 mg tablet 5 mg 1 tab(s), Oral, TID pantoprazole 40 mg EC tablet 40 mg 1 tab(s), Oral, BIDAC rosuvastatin 5 mg tablet 5 mg 1 tab(s), Oral, Daily tamsulosin 0.4 mg Capsule 0.8 mg 2 cap(s), Oral, qHS Continuous: (1) norepinephrine 8 mg [5 mcg/min] + NS Premix Diluent 250 mL 250 mL, Intravenous, 9.38 mL/hr PRN: (7) acetaminophen 325 mg Tablet 650 mg 2 tab(s), Oral, q4h acetaminophen-HYDROcodone 325-5 mg tablet 1 tab(s), Oral, q4h albuterol - ipratropium 2.5 mg-0.5 mg/3 mL Inhal Brunilda UD 3 mL, Inhalation, q4hRT morphine 2 mg/mL 1 mL syringe 2 mg 1 mL, IV Push, q1h nitroglycerin 0.4 mg Tablet (25/btl) 0.4 mg 1 tab(s), Sublingual, q5min polyethylene glycol 3350 - UD packet 17 gram(s) 15 mL, Oral, qDay potassium chloride 10 mEq ER capsule 20 mEq 2 cap(s), Oral, AsDirected Lab Results 03/27 08:12 WBC: 9.6 Hgb: 9.1 L Hct: 27.0 L Platelet: 241 Neutrophil %: 77.7 H Glucose Level: 106 Sodium Level: 140 Potassium Level: 4.0 BUN: 11.0 Creatinine Lvl (s): 0.94 03/26 12:27 Hgb: 8.6 L Hct: 24.9 L 03/26 06:16 Glucose Level: 100 Sodium Level: 139 Potassium Level: 3.8 BUN: 10.0 Creatinine Lvl (s): 0.85 EKG No qualifying data available. Assessment/Plan 1. Paroxysmal atrial fibrillation status post ablative therapies. Patient has occasional breakthrough episodes of nonsustained atrial tach. Continue to monitor. Hemoglobin has improved back to 9. Possibly plan for restarting Eliquis on Thursday, March 30, 2023with repeat labs 3 to 4 days afterwards for reevaluation of overall hemoglobin. 2. Retroperitoneal bleed (left-sided) Bleed has stabilized. Hemoglobin improved to 9.1. 3. Acute on chronic CHF. Dr. Zimmer's been consulted and will be giving Lasix for diuresing. 4. Ileus noted on x-ray GI is following. Patient recently had a large bowel movement. Will try to advance his diet. 5. Pneumonia. Patient still notes cough. However on physical exam and interview patient seemed improved and overall shortness of breath. No cough appreciated on physical exam. Digitally Signed by FRANCIA COATES on 03/27/2023 11:29 AM Digitally Signed by FRANCIA COATES on 03/27/2023 11:30 AM [id number] Heart failure Progress note Date of Service 03/27/2023 Chief Complaint CHF exacerbation Subjective Patient seen and examined at bedside. Currently hemodynamically stable in no acute distress. Hemoglobin stable at 9.1 today. Net -2.9 L with 3.3 L urine output over last 24 hours. No overnight events Objective Vitals and Measurements T: 36.9 C (Oral) TMIN: 36.6 C (Oral) TMAX: 37.0 C (Oral) HR: 89(Monitored) RR: 16 BP: 98/64 BP: 90/50(Line) SpO2: 90% Intake and Output 7AM Yesterday to 7AM Today Intake and Output (Last 24 hours) Intake Oral Intake 340.00 Output Urine Voided 3250.00 Stool Count 1.00 Total Summary Total Intake 340.00 Total Output 3250.00 Fluid Balance -2910.00 Physical Exam GENERAL: Patient is under no acute distress,and in no discomfort HEAD: Normocephalic, Atraumatic EYES/EARS: Pupils are equal and reactive, No scleral icterus. NOSE: Normal appearing nasal nares MOUTH Good oral hygiene, Moist oral mucosa, no pharyngeal erythema or exudates noted, undeviated uvula NECK: Supple, Nontender, No thyromegaly, JVD present, Midline trachea, No lymphadenopathy PULMONARY: Normal breathing effort, mild crackles on auscultation bilaterally CARDIAC: RRR, Normal S1-S2, no murmur, gallops, or rubs. 1+ lower extremity edema. ABDOMEN: soft, Nontender, Normal active bowel sounds BACK: No obvious deformities. : Deferred MSK: Warm bilaterally chronic skin changes noted SKIN: No PATHOLOGIC moles, rashes, lesions or ulcers were noted other than what is listed above NEURO: Alert and Oriented 4, Cranial nerves II to XII grossly intact. No focal. deficits grossly noted PSYCH: Pleasant, Good attention Weight Current Weight Dosing Weight: 90.6 kg (03/23/23) Current Weight: 83.7 kg (03/24/23) Current Weight: 80.4 kg (03/23/23) Medications Medications (23) Active Scheduled: (15) albuterol - ipratropium 2.5 mg-0.5 mg/3 mL Inhal Brunilda UD 3 mL, Inhalation, QIDRT budesonide 0.5 mg/2 mL Susp UD 0.5 mg 2 mL, Inhalation, BIDRT dofetilide 250 mcg capsule 250 mcg 1 cap(s), Oral, q12h doxycycline hyclate 100 mg Capsule 100 mg 1 cap(s), Oral, BID duloxetine [address] capsule 120 mg 2 cap(s), Oral, qDay empagliflozin 10 mg tablet 10 mg 1 tab(s), Oral, qAM finasteride 1 mg tablet 1 mg 1 tab(s), Oral, qDay furosemide 40 mg/4 mL vial 40 mg 4 mL, IV Push, BID guaifenesin 600 mg ER 600 mg 1 tab(s), Oral, q12h LORAZEPam 0.5 mg tablet 0.5 mg 1 tab(s), Oral, qHS metoprolol succinate 25 mg ER tablet 25 mg 1 tab(s), Oral, qDay midodrine 5 mg tablet 5 mg 1 tab(s), Oral, TID pantoprazole 40 mg EC tablet 40 mg 1 tab(s), Oral, BIDAC rosuvastatin 5 mg tablet 5 mg 1 tab(s), Oral, Daily tamsulosin 0.4 mg Capsule 0.8 mg 2 cap(s), Oral, qHS Continuous: (1) norepinephrine 8 mg [5 mcg/min] + NS Premix Diluent 250 mL 250 mL, Intravenous, 9.38 mL/hr PRN: (7) acetaminophen 325 mg Tablet 650 mg 2 tab(s), Oral, q4h acetaminophen-HYDROcodone 325-5 mg tablet 1 tab(s), Oral, q4h albuterol - ipratropium 2.5 mg-0.5 mg/3 mL Inhal Brunilda UD 3 mL, Inhalation, q4hRT morphine 2 mg/mL 1 mL syringe 2 mg 1 mL, IV Push, q1h nitroglycerin 0.4 mg Tablet (25/btl) 0.4 mg 1 tab(s), Sublingual, q5min polyethylene glycol 3350 - UD packet 17 gram(s) 15 mL, Oral, qDay potassium chloride 10 mEq ER capsule 20 mEq 2 cap(s), Oral, AsDirected Lab Results 03/26 12:27 Hgb: 8.6 L Hct: 24.9 L 03/26 06:16 Glucose Level: 100 Sodium Level: 139 Potassium Level: 3.8 BUN: 10.0 Creatinine Lvl (s): 0.85 Imaging Results and Diagnostics XR Chest 1 View Result Date: March 24, 2023 Verified By: KASI MOSQUERA MD CLINICAL STATEMENT: IMPRESSION: Worsening bilateral basilar infiltrates consistent with pneumonia. Small bilateral pleural effusions. CT Angio GI Bleeding Scan Result Date: March 24, 2023 Verified By: LOUIS SOLANO MD CLINICAL STATEMENT: IMPRESSION: 1. Study is positive for left retroperitoneal hemorrhage extending to theleft pelvic extraperitoneal space. As discussed above, the pelvicextraperitoneal hemorrhage is the most prominent component and this could bethe origin of the bleeding. There is no contrast extravasation to indicate active hemorrhage on this exam.2. Diverticulosis without diverticulitis.3. Small bilateral pleural effusions with minimal adjacent atelectasis.4. IMPORTANT: PHYSICIAN, ATTEND TO THIS REPORT STONEY!!! XR Abdomen 2 Views w/ Decub/Erect Result Date: March 23, 2023 Verified By: HANH CORTEZ MD CLINICAL STATEMENT: IMPRESSION: Apparent dilatation of a loop of small bowel may represent adynamic ileus inthe settingof enteritis, in the absence of clinical evidence of obstruction. I have personally reviewed the images of this examination and agree with theresident's findings and interpretation. EKG I have reviewed all available EKGs, echocardiograms, stress test and cardiac catheterizations. Relevant laboratory data have also been reviewed. Assessment/Plan Hiram Doran is a 82-year-old male with a significant past medical history of paroxysmal atrial fibrillation (Tikosyn, metoprolol, and Eliquis), sinus node dysfunction worsened with medication, HFrEF(LVEF 45% 5), CAD, JORGE on CPAP, and COPD with pulmonary fibrosis who presented on 03/23/2023 for elective Cryo pulmonary vein antral isolation ablation for symptomatic paroxysmal atrial fibrillation. Hospitalization complicated with hypotension requiring IV fluids and retroperitoneal bleed requiring blood transfusion. Heart failure team consulted for assistance with CHF management. Impression: Paroxysmal atrial fibrillation s/p cryo pulmonary vein antral isolation ablation (03/23/2023) Sinus node dysfunction worse with medication HFrEF (45% 5) Acute CHF exacerbation CAD JORGE on CPAP COPD Retroperitoneal bleed Adynamic ileus in the setting of enteritis Plan: Patient presented on 03/23/2023 for elective cryo PVI ablation. Hospitalization has been complicated by hypotension requiring IV fluids and retroperitoneal bleed requiring blood transfusion. This has led to mild CHF exacerbation. Now near euvolemic. Continue IV Lasix 40 mg BID today. Patient will likely be transition to p.o. Bumex 1 mg daily starting tomorrow depending on fluid status. Continue midodrine dose to 5 mg TID and Jardiance. Remaining management per primary. Assessment and plan was discussed with Dr. Zimmer. Any changes in assessment/plan, will be added as an addendum to this note by the attending physician. This note was transcribed via voice recognition software. Please forgive any errors or typos resulting from the use of this technology. Gopal Garcia DO, MS [employer] (PGY-6) Pager [phone]/ Cortext Digitally Signed by GOPAL GARCIA DO on 03/27/2023 03:28 PM [id number] Heart failure Progress note Date of Service 03/26/2023 Chief Complaint CHF exacerbation Subjective Patient seen and examined at bedside. Hemodynamically stable and in no acute distress. Off pressors. Net -1.7 L with 2.4 L urine output. No events overnight. Objective Vitals and Measurements T: 36.6 C (Oral) TMIN: 36.6 C (Oral) TMAX: 37.3 C (Oral) HR: 89 RR: 18 BP: 99/61 SpO2: 96% Intake and Output 7AM Yesterday to 7AM Today Intake and Output (Last 24 hours) Intake Oral Intake 640.00 Administration Information 12.20 Output Urine Voided 2100.00 Stool Count 5.00 Total Summary Total Intake 652.20 Total Output 2100.00 Fluid Balance -1447.80 Physical Exam GENERAL: Patient is under no acute distress,and in no discomfort HEAD: Normocephalic, Atraumatic EYES/EARS: Pupils are equal and reactive, No scleral icterus. NOSE: Normal appearing nasal nares MOUTH Good oral hygiene, Moist oral mucosa, no pharyngeal erythema or exudates noted, undeviated uvula NECK: Supple, Nontender, No thyromegaly, JVD 10 mmHg, Midline trachea, No lymphadenopathy PULMONARY: Normal breathing effort, clear to auscultation bilaterally CARDIAC: RRR, Normal S1-S2, no murmur, gallops, or rubs. No lower extremity edema. ABDOMEN: soft, Nontender, Normal active bowel sounds BACK: No obvious deformities. : Deferred MSK: Warm bilaterally chronic skin changes noted SKIN: No PATHOLOGIC moles, rashes, lesions or ulcers were noted other than what is listed above NEURO: Alert and Oriented 4, Cranial nerves II to XII grossly intact. No focal. deficits grossly noted PSYCH: Pleasant, Good attention Weight Current Weight Dosing Weight: 90.6 kg (03/23/23) Current Weight: 83.7 kg (03/24/23) Current Weight: 80.4 kg (03/23/23) Medications Medications (21) Active Scheduled: (13) albuterol - ipratropium 2.5 mg-0.5 mg/3 mL Inhal Brunilda UD 3 mL, Inhalation, QIDRT budesonide 0.5 mg/2 mL Susp UD 0.5 mg 2 mL, Inhalation, BIDRT dofetilide 250 mcg capsule 250 mcg 1 cap(s), Oral, q12h doxycycline hyclate 100 mg Capsule 100 mg 1 cap(s), Oral, BID duloxetine [address] capsule 120 mg 2 cap(s), Oral, qDay finasteride 1 mg tablet 1 mg 1 tab(s), Oral, qDay guaifenesin 600 mg ER 600 mg 1 tab(s), Oral, q12h LORAZEPam 0.5 mg tablet 0.5 mg 1 tab(s), Oral, qHS metoprolol succinate 25 mg ER tablet 25 mg 1 tab(s), Oral, qDay midodrine 2.5 mg tablet 2.5 mg 1 tab(s), Oral, TID pantoprazole 40 mg EC tablet 40 mg 1 tab(s), Oral, BIDAC rosuvastatin 5 mg tablet 5 mg 1 tab(s), Oral, Daily tamsulosin 0.4 mg Capsule 0.8 mg 2 cap(s), Oral, qHS Continuous: (1) norepinephrine 8 mg [5 mcg/min] + NS Premix Diluent 250 mL 250 mL, Intravenous, 9.38 mL/hr PRN: (7) acetaminophen 325 mg Tablet 650 mg 2 tab(s), Oral, q4h acetaminophen-HYDROcodone 325-5 mg tablet 1 tab(s), Oral, q4h albuterol - ipratropium 2.5 mg-0.5 mg/3 mL Inhal Brunilda UD 3 mL, Inhalation, q4hRT morphine 2 mg/mL 1 mL syringe 2 mg 1 mL, IV Push, q1h nitroglycerin 0.4 mg Tablet (25/btl) 0.4 mg 1 tab(s), Sublingual, q5min polyethylene glycol 3350 - UD packet 17 gram(s) 15 mL, Oral, qDay potassium chloride 10 mEq ER capsule 20 mEq 2 cap(s), Oral, AsDirected Lab Results 03/25 15:23 Hgb: 8.4 L 03/25 08:38 Glucose Level: 112 Sodium Level: 140 Potassium Level: 3.9 BUN: 9.0 Creatinine Lvl (s): 0.78 03/25 04:53 WBC: 10.6 Hgb: 8.4 L Hct: 24.5 L Platelet: 168 Neutrophil %: 77.6 H 03/24 23:51 WBC: 12.6 H Hgb: 8.1 L Hct: 23.3 L Platelet: 174 Neutrophil %: 78.7 H Imaging Results and Diagnostics XR Chest 1 View Result Date: March 24, 2023 Verified By: KASI MOSQUERA MD CLINICAL STATEMENT: IMPRESSION: Worsening bilateral basilar infiltrates consistent with pneumonia. Small bilateral pleural effusions. CT Angio GI Bleeding Scan Result Date: March 24, 2023 Verified By: LOUIS SOLANO MD CLINICAL STATEMENT: IMPRESSION: 1. Study is positive for left retroperitoneal hemorrhage extending to theleft pelvic extraperitoneal space. As discussed above, the pelvicextraperitoneal hemorrhage is the most prominent component and this could bethe origin of the bleeding. There is no contrast extravasation to indicate active hemorrhage on this exam.2. Diverticulosis without diverticulitis.3. Small bilateral pleural effusions with minimal adjacent atelectasis.4. IMPORTANT: PHYSICIAN, ATTEND TO THIS REPORT STONEY!!! XR Abdomen 2 Views w/ Decub/Erect Result Date: March 23, 2023 Verified By: HANH CORTEZ MD CLINICAL STATEMENT: IMPRESSION: Apparent dilatation of a loop of small bowel may represent adynamic ileus inthe settingof enteritis, in the absence of clinical evidence of obstruction. I have personally reviewed the images of this examination and agree with theresident's findings and interpretation. EKG Electrocardiogram - Completed -- 03/24/23 6:00:00 EST Assessment/Plan Hiram Doran is a 82-year-old male with a significant past medical history of paroxysmal atrial fibrillation (Tikosyn, metoprolol, and Eliquis), sinus node dysfunction worsened with medication, HFrEF(LVEF 45% 5), CAD, JORGE on CPAP, and COPD with pulmonary fibrosis who presented on 03/23/2023 for elective Cryo pulmonary vein antral isolation ablation for symptomatic paroxysmal atrial fibrillation. Hospitalization complicated with hypotension requiring IV fluids and retroperitoneal bleed requiring blood transfusion. Heart failure team consulted for assistance with CHF management. Impression: Paroxysmal atrial fibrillation s/p cryo pulmonary vein antral isolation ablation (03/23/2023) Sinus node dysfunction worse with medication HFrEF (45% 5) Acute CHF exacerbation CAD JORGE on CPAP COPD Retroperitoneal bleed Adynamic ileus in the setting of enteritis Plan: Patient presented on 03/23/2023 for elective cryo PVI ablation. Hospitalization has been complicated by hypotension requiring IV fluids and retroperitoneal bleed requiring blood transfusion. This has led to mild CHF exacerbation. Continue IV Lasix 40 mg BID. Will increase midodrine dose to 5 mg TID. Will resume Jardiance. Remaining management per primary. Assessment and plan was discussed with Dr. Zimmer. Any changes in assessment/plan, will be added as an addendum to this note by the attending physician. This note was transcribed via voice recognition software. Please forgive any errors or typos resulting from the use of this technology. Gopal Garcia DO, MS [employer] (PGY-6) Pager [phone]/ Cortext Digitally Signed by GOPAL GARCIA DO on 03/26/2023 02:08 PM [id number] Nurse Progress note Edgar student's documentation has been reviewed Digitally Signed by Ramona Beckham Supervisor [employer]ishing Department on 03/26/2023 03:47 PM [id number] Note EP PROGRESS NOTESeen for AFIB.PCP: TAWNY LindsayV: Azar Kahn MD Patient: Hiram Doran medical record# [id number] TELEMETRY reviewed: Sinus rhythm predominates. some runs apcs seen. LABS: reviewed. Hemoglobin 8.4 yesterday afternoon. GFR greater than 60, potassium 3.9. Cortisol 4.4. SUBJECTIVE: The patient off pressors. Moved bowels yesterday, abdominal discomfort lessening. Treated for volume overload chf after transfusions. He denies any angina, dyspnea, lightheadedness, or palpitations. He remains off anticoagulation. OBJECTIVE: 100/60, pulse 86 regular, respirations 18, afebrile. LUNGS: adequate excursion, prolonged expiratory phase. COR: S1 S2, no S3 or rub. ABD: bowel sounds present, distended, tenderness to palpitation but softer. EXT: trace edema, pulses 2+ bilaterally. IMPRESSION/Recommendations: 1. Acute abdominal proccess with blood loss. Appreciate Consultants' assistance. slowly improving. Increase activity. 2. s/p CRYO PVAI ablation 03/23/23 for Paroxysmal Atrial Fibrillation, CHADSVASC= 4, with debilitating symptoms failing multiple antiarrhythmic agents with sotalol (bradycardia, hypotension), ranolazine (hypotension), tikosyn (inadequate suppression). Sinus rhythm. Will hold of resuming anticoagulation due to above. 3. Sinus Node dysfunction worsened with meds. stable. 4. CAD LVEF 45%, moderate LAE [2022], blocked D1 not amenable to intervention. 5. COPD with pulmonary fibrosis. 6. JORGE. 7. GERD. 8. Prostate hypertrophy with obstruction. 9. Dyslipidemia. 10. Psoriasis. 11. Chronic right shoulder pain. 12. Spinal stenosis hx laminectomy [2015]. 13. B12 deficiency. Dmitry Mckeon MD, [facility] [[email or web address]], [facility] pager [phone] Digitally Signed by DMITRY MCKEON MD on 03/26/2023 09:05 AM [facility] [id number] Heart failure Progress note Date of Service 03/26/2023 Chief Complaint CHF exacerbation Subjective Patient seen and examined at bedside. Hemodynamically stable and in no acute distress. Off pressors. Net -1.7 L with 2.4 L urine output. No events overnight. Objective Vitals and Measurements T: 36.6 C (Oral) TMIN: 36.6 C (Oral) TMAX: 37.3 C (Oral) HR: 89 RR: 18 BP: 99/61 SpO2: 96% Intake and Output 7AM Yesterday to 7AM Today Intake and Output (Last 24 hours) Intake Oral Intake 640.00 Administration Information 12.20 Output Urine Voided 2100.00 Stool Count 5.00 Total Summary Total Intake 652.20 Total Output 2100.00 Fluid Balance -1447.80 Physical Exam GENERAL: Patient is under no acute distress,and in no discomfort HEAD: Normocephalic, Atraumatic EYES/EARS: Pupils are equal and reactive, No scleral icterus. NOSE: Normal appearing nasal nares MOUTH Good oral hygiene, Moist oral mucosa, no pharyngeal erythema or exudates noted, undeviated uvula NECK: Supple, Nontender, No thyromegaly, JVD 10 mmHg, Midline trachea, No lymphadenopathy PULMONARY: Normal breathing effort, clear to auscultation bilaterally CARDIAC: RRR, Normal S1-S2, no murmur, gallops, or rubs. No lower extremity edema. ABDOMEN: soft, Nontender, Normal active bowel sounds BACK: No obvious deformities. : Deferred MSK: Warm bilaterally chronic skin changes noted SKIN: No PATHOLOGIC moles, rashes, lesions or ulcers were noted other than what is listed above NEURO: Alert and Oriented 4, Cranial nerves II to XII grossly intact. No focal. deficits grossly noted PSYCH: Pleasant, Good attention Weight Current Weight Dosing Weight: 90.6 kg (03/23/23) Current Weight: 83.7 kg (03/24/23) Current Weight: 80.4 kg (03/23/23) Medications Medications (21) Active Scheduled: (13) albuterol - ipratropium 2.5 mg-0.5 mg/3 mL Inhal Brunilda UD 3 mL, Inhalation, QIDRT budesonide 0.5 mg/2 mL Susp UD 0.5 mg 2 mL, Inhalation, BIDRT dofetilide 250 mcg capsule 250 mcg 1 cap(s), Oral, q12h doxycycline hyclate 100 mg Capsule 100 mg 1 cap(s), Oral, BID duloxetine [address] capsule 120 mg 2 cap(s), Oral, qDay finasteride 1 mg tablet 1 mg 1 tab(s), Oral, qDay guaifenesin 600 mg ER 600 mg 1 tab(s), Oral, q12h LORAZEPam 0.5 mg tablet 0.5 mg 1 tab(s), Oral, qHS metoprolol succinate 25 mg ER tablet 25 mg 1 tab(s), Oral, qDay midodrine 2.5 mg tablet 2.5 mg 1 tab(s), Oral, TID pantoprazole 40 mg EC tablet 40 mg 1 tab(s), Oral, BIDAC rosuvastatin 5 mg tablet 5 mg 1 tab(s), Oral, Daily tamsulosin 0.4 mg Capsule 0.8 mg 2 cap(s), Oral, qHS Continuous: (1) norepinephrine 8 mg [5 mcg/min] + NS Premix Diluent 250 mL 250 mL, Intravenous, 9.38 mL/hr PRN: (7) acetaminophen 325 mg Tablet 650 mg 2 tab(s), Oral, q4h acetaminophen-HYDROcodone 325-5 mg tablet 1 tab(s), Oral, q4h albuterol - ipratropium 2.5 mg-0.5 mg/3 mL Inhal Brunilda UD 3 mL, Inhalation, q4hRT morphine 2 mg/mL 1 mL syringe 2 mg 1 mL, IV Push, q1h nitroglycerin 0.4 mg Tablet (25/btl) 0.4 mg 1 tab(s), Sublingual, q5min polyethylene glycol 3350 - UD packet 17 gram(s) 15 mL, Oral, qDay potassium chloride 10 mEq ER capsule 20 mEq 2 cap(s), Oral, AsDirected Lab Results 03/25 15:23 Hgb: 8.4 L 03/25 08:38 Glucose Level: 112 Sodium Level: 140 Potassium Level: 3.9 BUN: 9.0 Creatinine Lvl (s): 0.78 03/25 04:53 WBC: 10.6 Hgb: 8.4 L Hct: 24.5 L Platelet: 168 Neutrophil %: 77.6 H 03/24 23:51 WBC: 12.6 H Hgb: 8.1 L Hct: 23.3 L Platelet: 174 Neutrophil %: 78.7 H Imaging Results and Diagnostics XR Chest 1 View Result Date: March 24, 2023 Verified By: EVELINE DEAN, KASI Tran CLINICAL STATEMENT: IMPRESSION: Worsening bilateral basilar infiltrates consistent with pneumonia. Small bilateral pleural effusions. CT Angio GI Bleeding Scan Result Date: March 24, 2023 Verified By: LOUIS SOLANO MD CLINICAL STATEMENT: IMPRESSION: 1. Study is positive for left retroperitoneal hemorrhage extending to theleft pelvic extraperitoneal space. As discussed above, the pelvicextraperitoneal hemorrhage is the most prominent component and this could bethe origin of the bleeding. There is no contrast extravasation to indicate active hemorrhage on this exam.2. Diverticulosis without diverticulitis.3. Small bilateral pleural effusions with minimal adjacent atelectasis.4. IMPORTANT: PHYSICIAN, ATTEND TO THIS REPORT STONEY!!! XR Abdomen 2 Views w/ Decub/Erect Result Date: March 23, 2023 Verified By: HANH CORTEZ MD CLINICAL STATEMENT: IMPRESSION: Apparent dilatation of a loop of small bowel may represent adynamic ileus inthe settingof enteritis, in the absence of clinical evidence of obstruction. I have personally reviewed the images of this examination and agree with theresident's findings and interpretation. EKG Electrocardiogram - Completed -- 03/24/23 6:00:00 EST Assessment/Plan Hiram Doran is a 82-year-old male with a significant past medical history of paroxysmal atrial fibrillation (Tikosyn, metoprolol, and Eliquis), sinus node dysfunction worsened with medication, HFrEF(LVEF 45% 5), CAD, JORGE on CPAP, and COPD with pulmonary fibrosis who presented on 03/23/2023 for elective Cryo pulmonary vein antral isolation ablation for symptomatic paroxysmal atrial fibrillation. Hospitalization complicated with hypotension requiring IV fluids and retroperitoneal bleed requiring blood transfusion. Heart failure team consulted for assistance with CHF management. Impression: Paroxysmal atrial fibrillation s/p cryo pulmonary vein antral isolation ablation (03/23/2023) Sinus node dysfunction worse with medication HFrEF (45% 5) Acute CHF exacerbation CAD JORGE on CPAP COPD Retroperitoneal bleed Adynamic ileus in the setting of enteritis Plan: Patient presented on 03/23/2023 for elective cryo PVI ablation. Hospitalization has been complicated by hypotension requiring IV fluids and retroperitoneal bleed requiring blood transfusion. This has led to mild CHF exacerbation. Continue IV Lasix 40 mg BID. Will increase midodrine dose to 5 mg TID. Will resume Jardiance. Remaining management per primary. Assessment and plan was discussed with Dr. Zimmer. Any changes in assessment/plan, will be added as an addendum to this note by the attending physician. This note was transcribed via voice recognition software. Please forgive any errors or typos resulting from the use of this technology. Gopal Garcia DO, MS [employer] (PGY-6) Pager [phone]/ Cortext Digitally Signed by GOPAL GARCIA DO on 03/26/2023 02:08 PM [facility] [id number] Heart failure Consult note Date of Service 03/25/2023 Reason for Consultation CHF exacerbation Referring Physician Clinical cardiac electrophysiology team History of Present Illness Hiram Izaguirre is a 82-year-old male with a significant past medical history of paroxysmal atrial fibrillation (Tikosyn, metoprolol, and Eliquis), sinus node dysfunction worsened with medication, HFrEF(LVEF 45% 5), CAD, JORGE on CPAP, and COPD with pulmonary fibrosis who presented on 03/23/2023 for elective Cryo pulmonary vein antral isolation ablation for symptomatic paroxysmal atrial fibrillation. Hospitalization complicated with hypotension requiring IV fluids and retroperitoneal bleed requiring blood transfusion. Heart failure team consulted for assistance with CHF management. Review of Systems A thorough 14 point review of system was done, and is negative except for what was listed above in the HPI section Physical Exam Vitals and Measurements T: 36.9 C (Oral) TMIN: 36.4 C (Oral) TMAX: 36.9 C (Oral) HR: 82(Monitored) RR: 20 BP: 98/55 SpO2: 93% Weight Current Weight Dosing Weight: 90.6 kg (03/23/23) Current Weight: 83.7 kg (03/24/23) Current Weight: 80.4 kg (03/23/23) GENERAL: Patient is under no acute distress,and in no discomfort HEAD: Normocephalic, Atraumatic EYES/EARS: Pupils are equal and reactive, No scleral icterus. NOSE: Normal appearing nasal nares MOUTH Good oral hygiene, Moist oral mucosa, no pharyngeal erythema or exudates noted, undeviated uvula NECK: Supple, Nontender, No thyromegaly, No JVD, Midline trachea, No lymphadenopathy PULMONARY: Normal breathing effort, clear to auscultation bilaterally CARDIAC: RRR, Normal S1-S2, no murmur, gallops, or rubs. No lower extremity edema. ABDOMEN: mildly distended. Tenderness in LLQ, Normal active bowel sounds BACK: No obvious deformities. : Deferred MSK: Warm bilaterally chronic skin changes noted SKIN: No PATHOLOGIC moles, rashes, lesions or ulcers were noted other than what is listed above NEURO: Alert and Oriented 4, Cranial nerves II to XII grossly intact. No focal. deficits grossly noted PSYCH: Pleasant, Good attention Lab Results 03/25 08:38 Glucose Level: 112 Sodium Level: 140 Potassium Level: 3.9 BUN: 9.0 Creatinine Lvl (s): 0.78 03/25 04:53 WBC: 10.6 Hgb: 8.4 L Hct: 24.5 L Platelet: 168 Neutrophil %: 77.6 H 03/24 23:51 WBC: 12.6 H Hgb: 8.1 L Hct: 23.3 L Platelet: 174 Neutrophil %: 78.7 H 03/24 18:05 WBC: 11.2 H Hgb: 8.2 L Hct: 24.8 L Platelet: 183 Neutrophil %: 80.8 H 03/24 12:00 WBC: 12.4 H Hgb: 8.2 L Hct: 24.4 L Platelet: 191 Neutrophil %: 81.8 H 03/24 08:42 Hgb: 7.9 L Hct: 23.7 L 03/24 04:13 WBC: 14.5 H Hgb: 8.1 L Hct: 24.2 L Platelet: 205 Neutrophil %: 85.6 H Glucose Level: 140 H Sodium Level: 143 Potassium Level: 3.6 BUN: 11.0 Creatinine Lvl (s): 0.85 Imaging Results and Diagnostics XR Chest 1 View Result Date: March 24, 2023 Verified By: KASI MOSQUERA MD CLINICAL STATEMENT: IMPRESSION: Worsening bilateral basilar infiltrates consistent with pneumonia. Small bilateral pleural effusions. CT Angio GI Bleeding Scan Result Date: March 24, 2023 Verified By: LOUIS SOLANO MD CLINICAL STATEMENT: IMPRESSION: 1. Study is positive for left retroperitoneal hemorrhage extending to theleft pelvic extraperitoneal space. As discussed above, the pelvicextraperitoneal hemorrhage is the most prominent component and this could bethe origin of the bleeding. There is no contrast extravasation to indicate active hemorrhage on this exam.2. Diverticulosis without diverticulitis.3. Small bilateral pleural effusions with minimal adjacent atelectasis.4. IMPORTANT: PHYSICIAN, ATTEND TO THIS REPORT STONEY!!! XR Abdomen 2 Views w/ Decub/Erect Result Date: March 23, 2023 Verified By: HANH CORTEZ MD CLINICAL STATEMENT: IMPRESSION: Apparent dilatation of a loop of small bowel may represent adynamic ileus inthe settingof enteritis, in the absence of clinical evidence of obstruction. I have personally reviewed the images of this examination and agree with theresident's findings and interpretation. EKG I have reviewed all available EKGs, echocardiograms, stress test and cardiac catheterizations. Relevant laboratory data have also been reviewed. Cardiac catheterization 05/27/2021: Severe disease involving first large diagonal branch and mild to moderate disease involving the other vessel. 90% proximal D1. Transthoracic echocardiogram 12/16/2022: LVEF 40 to 45% with grade 2 diastolic dysfunction. ECG 03/24/2023: Sinus rhythm with left axis deviation. Assessment/Plan Impression: Paroxysmal atrial fibrillation s/p cryo pulmonary vein antral isolation ablation (03/23/2023) Sinus node dysfunction worse with medication HFrEF (45% 5) Acute CHF exacerbation CAD JORGE on CPAP COPD Retroperitoneal bleed Adynamic ileus in the setting of enteritis Plan: Patient presented on 03/23/2023 for elective cryo PVI ablation. Hospitalization has been complicated by hypotension requiring IV fluids and retroperitoneal bleed requiring blood transfusion. This is led to mild CHF exacerbation. Will order proBNP and give patient 1 dose of IV Lasix 40 mg. Will reassess fluid status tomorrow. Patient is on Levophed. Will add midodrine. At this time will hold Jardiance. Remaining management per primary. Assessment and plan was discussed with Dr. Zimmer. Any changes in assessment/plan, will be added as an addendum to this note by the attending physician. This note was transcribed via voice recognition software. Please forgive any errors or typos resulting from the use of this technology. Gopal Garcia DO, MS [employer] (PGY-6) Pager [phone]/ Cortext Problem List/Past Medical History Ongoing (HFpEF) heart failure with preserved ejection fraction Acid reflux Acute sinusitis Arthritis Asbestosis Atrial fibrillation Atrial fibrillation Back pain BPH with urinary obstruction CAD LVEF 45%, mod LAE [2022] Chronic bronchitis Chronic hip pain Chronic insomnia Chronic low back pain Chronic neck pain Constipation COPD (chronic obstructive pulmonary disease) COPD exacerbation Cough Depression Diarrhea Elevated glucose Enlarged prostate Essential hypertension Fatigue GERD (gastroesophageal reflux disease) Glasses Herniation of intervertebral disc of lumbosacral region Hypercholesterolemia Hypotension Hypoxia Insomnia LABYRINTHINE DYSFUNCTION Left buttock pain Left hip pain Low back pain Low back pain Lower extremity weakness Lumbar nerve root injury inpingement Lumbosacral radiculitis Lumbosacral radiculopathy Major depressive disorder Mild anemia Mixed hyperlipidemia Muscle spasms of neck Muscle weakness Need for vaccination Oral thrush JORGE (obstructive sleep apnea) Osteoarthrosis Palpitations Paroxysmal atrial fibrillation Paroxysmal atrial fibrillation Persistent cough Psoriasis Retroperitoneal hemorrhage complicating cardiac catheterization Right shoulder pain Shortness of breath Shortness of breath on exertion Shoulder bursitis Sinus node dysfunction Spinal stenosis Upper back pain Upper back pain on right side Urinary incontinence Vitamin B12 deficiency Wheezing Historical No qualifying data Procedure/Surgical History Echocardiogram: 12/16/22 Holter monitor: 04/04/22 Echocardiogram: 03/10/22 Echocardiogram: 10/11/21 CT of thorax: 10/11/21 Cardiac catheterization: 05/27/21 Cardiac catheterization: 05/27/21 Cardiovascular stress testin05/20/21 Stress echocardiography using dobutamine: 08/04/18 Stress echocardiography: 08/04/18 Echocardiography: 08/02/18 Echocardiogram: 08/02/18 Echocardiogram: 03/18/17 Cardiovascular stress testin02/24/17 Laminectomy: 06/01/14 Colonoscopy: 12/23/12 Hernia repair: 1998 ORIF - Open reduction and internal fixation of fracture: 1980 Appendectomy: 1944 Appendectomy Hemorrhoidectomy Medications Inpatient budesonide, 0.5 mg= 2 mL, Inhalation, BIDRT Cymbalta, 120 mg= 2 cap(s), Oral, qDay DuoNeb, 3 mL, Inhalation, q4hRT, PRN DuoNeb, 3 mL, Inhalation, QIDRT finasteride 1 mg oral tablet, 1 mg= 1 tab(s), Oral, qDay Jardiance, 10 mg= 1 tab(s), Oral, qAM LORazepam, 0.5 mg= 1 tab(s), Oral, qHS metoprolol succinate 25 mg oral TABLET extended release, 25 mg= 1 tab(s), Oral, qDay Miralax Powder Packet, 17 gram(s)= 15 mL, Oral, qDay, PRN morphine, 2 mg= 1 mL, IV Push, q1h, PRN Mucinex 600 mg oral tablet, extended release, 600 mg= 1 tab(s), Oral, q12h nitroglycerin 0.4 mg sublingual tablet, 0.4 mg= 1 tab(s), Sublingual, q5min, PRN [place] 325- 5 mg oral tablet, 1 tab(s), Oral, q4h, PRN Norepinephrine for IV 8 mg [5 mcg/min] + NS PMX titrate 250 mL potassium chloride, 20 mEq= 2 cap(s), Oral, AsDirected, PRN Protonix, 40 mg= 1 tab(s), Oral, BIDAC rosuvastatin, 5 mg= 1 tab(s), Oral, Daily tamsulosin, 0.8 mg= 2 cap(s), Oral, qHS Tikosyn, 250 mcg= 1 cap(s), Oral, q12h Tylenol, 650 mg= 2 tab(s), Oral, q4h, PRN Home budesonide 1 mg/2 mL inhalation suspension, 0.5 mg= 1 mL, Inhalation, BID, 11 refills Cymbalta 60 mg oral delayed release capsule, 120 mg= 2 cap(s), Oral, qDay, 3 refills Eliquis 5 mg oral tablet, 5 mg= 1 tab(s), Oral, BID finasteride 1 mg oral tablet, 1 mg= 1 tab(s), Oral, qDay Jardiance 25 mg oral tablet, 12.5 mg= 0.5 tab(s), Oral, qAM, 3 refills LORazepam 0.5 mg oral tablet, 0.5 mg= 1 tab(s), Oral, qHS metoprolol succinate 25 mg oral TABLET extended release, 25 mg= 1 tab(s), Oral, qDay, 3 refills Mucinex 600 mg oral tablet, extended release, 600 mg= 1 tab(s), Oral, q12h nitroglycerin 0.4 mg sublingual tablet, 0.4 mg= 1 tab(s), Sublingual, q5min, PRN PriLOSEC OTC 20 mg oral delayed release tablet, 20 mg= 1 tab(s), Oral, qDayAC rosuvastatin 5 mg oral tablet, 5 mg= 1 tab(s), Oral, Daily, 3 refills Stiolto Respimat 60 ACT 2.5 mcg-2.5 mcg/inh inhalation aerosol, 2 puff(s), Inhalation, qDay tamsulosin 0.4 mg oral capsule, 0.8 mg= 2 cap(s), qDay Tikosyn 250 mcg oral capsule, 250 mcg= 1 cap(s), Oral, q12h, 3 refills Vitamin B12, See Instructions Vitamin D3, qDay Xopenex 0.63 mg/3 mL inhalation solution, 0.63 mg= 3 mL, Nebulized, TID Allergies NKA Social History Smoking Status - 01/04/2018 Former smoker Alcohol - Denies Alcohol Use, 04/27/2017 Use: Current. 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 Self described orientation: Straight or heterosexual., 12/13/2022 Substance Abuse - Denies Substance Abuse, 04/27/2017 Use: Never., 09/27/2018 Tobacco Tobacco Use: Former smoker, quit more than 30 days ago., 09/27/2018 Family History COPD: Mother. Coronary artery disease: Grandparent. Emphysema of lung: Mother. Heart disease: Negative: Father. Immunizations pneumococcal 13-valent conjugate vaccine: 0 unknown unit (12/24/15) pneumococcal 23-valent vaccine(Pneumovax: 0 unknown unit (07/11/13) pneumococcal 23-valent vaccine(Pneumovax: 0 unknown unit (05/11/06) SARS-CoV-2 (COVID-19) mRNA-1273 vaccine: 0.25 unknown unit (01/10/21) SARS-CoV-2 (COVID-19) mRNA-1273 vaccine: 100 unknown unit (05/11/20) SARS-CoV-2 (COVID-19) mRNA-1273 vaccine: 100 unknown unit (04/13/20) tetanus-diphtheria toxoids: 0 unknown unit (08/27/13) Digitally Signed by GOPAL GARCIA DO on 03/25/2023 04:20 PM [facility] [id number] Note Date of Service March 25, 2023 Shared/Split visit with Dr. Mckeon Chief Complaint AF Subjective This is an 82-year-old male with a known history of atrial fibrillation status post ablative therapies and retroperitoneal bleed. Patient is currently hemodynamically stable. Unfortunately patient isnow suffering acute on chronic CHF exacerbation. In general cardiology/Dr. Zimmer has been consulted for evaluation. Past medical history significant for 1. paroxysmal AF with a [id number] of 4 status post ablative therapies 2. Sinus node dysfunction worse on AV dennis blocking agents 3. Coronary artery disease block D1 4. COPD with pulmonary fibrosis 5. Obstructive sleep apnea 6. Acid reflux/GERD 7. Comorbidities also include BPH, spinal stenosis, vitamin B12 deficiency Status post ablation the patient had significant hypotension corrected with fluids and pressor support. Patient was then was noted to have a drop in overall hemoglobin. Was admitted to CCU. Since then patient has been evaluated by vascular For left retroperitoneal hemorrhage -bleed stabilizing. Indicating no need for acute surgery patient is stabilizing. Patient was retaining fluid. And general cardiology/Dr. Zimmer has been consulted for evaluation patient is to be given Lasix. Patient recently just had a large bowel movement. Will try to advance his diet. Today, the patient is resting in bed. He still notes some ongoing lower abdominal pain. But this isimproving. Overall the patient is doing fairly well considering. He notes some ongoing pain, shortness of breath but denies any active chest pain lightheadedness. General cardiology/Dr. Zimmer is following. Will be transferred from [facility] to [facility] for blood pressure support at this time. Objective Vitals and Measurements T: 36.8 C (Oral) TMIN: 36.4 C (Oral) TMAX: 36.9 C (Oral) HR: 85(Monitored) RR: 20 BP: 129/65 SpO2: 93% Physical Exam General - 82 yr old male HEENT - head normocephalic, atraumatic. Pupils equal reactive to light. Nose patent bilaterally. Oropharynx without erythema or exudate. Neck -supple, full range of motion. No carotid bruits noted. Cardiovascular - Regular rate and rhythm. No significant murmurs appreciated. Lungs -decreased breath sounds. Rhonchi appreciated in lower lobes. Abdomen -tender at abdomen. Most notably on left lower side. Musculoskeletal -full weightbearing. Full range of motion in all extremities. Skin -intact, no lesions or rashes noted. Neurological - cranial nerves grossly intact. Mood and affect appropriate to situation. Peripheral vascular - No pitting edema Weight Current Weight Dosing Weight: 90.6 kg (03/23/23) Current Weight: 83.7 kg (03/24/23) Current Weight: 80.4 kg (03/23/23) Medications Medications (20) Active Scheduled: (12) albuterol - ipratropium 2.5 mg-0.5 mg/3 mL Inhal Brunilda UD 3 mL, Inhalation, QIDRT budesonide 0.5 mg/2 mL Susp UD 0.5 mg 2 mL, Inhalation, BIDRT dofetilide 250 mcg capsule 250 mcg 1 cap(s), Oral, q12h duloxetine [address] capsule 120 mg 2 cap(s), Oral, qDay finasteride 1 mg tablet 1 mg 1 tab(s), Oral, qDay guaifenesin 600 mg ER 600 mg 1 tab(s), Oral, q12h LORAZEPam 0.5 mg tablet 0.5 mg 1 tab(s), Oral, qHS metoprolol succinate 25 mg ER tablet 25 mg 1 tab(s), Oral, qDay midodrine 2.5 mg tablet 2.5 mg 1 tab(s), Oral, TID pantoprazole 40 mg EC tablet 40 mg 1 tab(s), Oral, BIDAC rosuvastatin 5 mg tablet 5 mg 1 tab(s), Oral, Daily tamsulosin 0.4 mg Capsule 0.8 mg 2 cap(s), Oral, qHS Continuous: (1) norepinephrine 8 mg [5 mcg/min] + NS Premix Diluent 250 mL 250 mL, Intravenous, 9.38 mL/hr PRN: (7) acetaminophen 325 mg Tablet 650 mg 2 tab(s), Oral, q4h acetaminophen-HYDROcodone 325-5 mg tablet 1 tab(s), Oral, q4h albuterol - ipratropium 2.5 mg-0.5 mg/3 mL Inhal Brunilda UD 3 mL, Inhalation, q4hRT morphine 2 mg/mL 1 mL syringe 2 mg 1 mL, IV Push, q1h nitroglycerin 0.4 mg Tablet (25/btl) 0.4 mg 1 tab(s), Sublingual, q5min polyethylene glycol 3350 - UD packet 17 gram(s) 15 mL, Oral, qDay potassium chloride 10 mEq ER capsule 20 mEq 2 cap(s), Oral, AsDirected Lab Results 03/25 15:23 Hgb: 8.4 L 03/25 08:38 Glucose Level: 112 Sodium Level: 140 Potassium Level: 3.9 BUN: 9.0 Creatinine Lvl (s): 0.78 03/25 04:53 WBC: 10.6 Hgb: 8.4 L Hct: 24.5 L Platelet: 168 Neutrophil %: 77.6 H 03/24 23:51 WBC: 12.6 H Hgb: 8.1 L Hct: 23.3 L Platelet: 174 Neutrophil %: 78.7 H 03/24 18:05 WBC: 11.2 H Hgb: 8.2 L Hct: 24.8 L Platelet: 183 Neutrophil %: 80.8 H 03/24 12:00 WBC: 12.4 H Hgb: 8.2 L Hct: 24.4 L Platelet: 191 Neutrophil %: 81.8 H 03/24 08:42 Hgb: 7.9 L Hct: 23.7 L EKG Electrocardiogram - Completed -- 03/24/23 6:00:00 EST Assessment/Plan Orders: albuterol-ipratropium, Start: 03/25/23 14:00:00 EST, Dose = 3 mL, Soln, Inhalation, q4hRT, PRN, Shortness of breath or wheezing, 03/25/23 14:00:00 EST Consult to Occupational Therapy Consult to Physical Therapy Consult to Physician Diet Order 1. Paroxysmal atrial fibrillation status post ablative therapies. Patient is maintaining normal sinus rhythm. Continue on current medical therapies. 2. Retroperitoneal bleed (left-sided) Being followed by vascular. Bleed has stabilized. 3. Acute on chronic CHF. Dr. Zimmer's been consulted and will be giving Lasix for diuresing. 4. Ileus noted on x-ray GI is following. Patient recently had a large bowel movement. Will try to advance his diet. 5. Pneumonia. Patient chest x-ray reveals worsening of pneumonia with effusion Patient's daughter notes that he has recurring pneumonia and pulmonology frequently puts him on doxycycline We will trial doxycycline. However I did indicate this could have worsening GI complications. Continue to monitor. Digitally Signed by FRANCIA COATES on 03/25/2023 05:35 PM [facility] [id number] Heart failure Consult note Date of Service 03/25/2023 Reason for Consultation CHF exacerbation Referring Physician Clinical cardiac electrophysiology team History of Present Illness Hiram Izaguirre is a 82-year-old male with a significant past medical history of paroxysmal atrial fibrillation (Tikosyn, metoprolol, and Eliquis), sinus node dysfunction worsened with medication, HFrEF(LVEF 45% 5), CAD, JORGE on CPAP, and COPD with pulmonary fibrosis who presented on 03/23/2023 for elective Cryo pulmonary vein antral isolation ablation for symptomatic paroxysmal atrial fibrillation. Hospitalization complicated with hypotension requiring IV fluids and retroperitoneal bleed requiring blood transfusion. Heart failure team consulted for assistance with CHF management. Review of Systems A thorough 14 point review of system was done, and is negative except for what was listed above in the HPI section Physical Exam Vitals and Measurements T: 36.9 C (Oral) TMIN: 36.4 C (Oral) TMAX: 36.9 C (Oral) HR: 82(Monitored) RR: 20 BP: 98/55 SpO2: 93% Weight Current Weight Dosing Weight: 90.6 kg (03/23/23) Current Weight: 83.7 kg (03/24/23) Current Weight: 80.4 kg (03/23/23) GENERAL: Patient is under no acute distress,and in no discomfort HEAD: Normocephalic, Atraumatic EYES/EARS: Pupils are equal and reactive, No scleral icterus. NOSE: Normal appearing nasal nares MOUTH Good oral hygiene, Moist oral mucosa, no pharyngeal erythema or exudates noted, undeviated uvula NECK: Supple, Nontender, No thyromegaly, No JVD, Midline trachea, No lymphadenopathy PULMONARY: Normal breathing effort, clear to auscultation bilaterally CARDIAC: RRR, Normal S1-S2, no murmur, gallops, or rubs. No lower extremity edema. ABDOMEN: mildly distended. Tenderness in LLQ, Normal active bowel sounds BACK: No obvious deformities. : Deferred MSK: Warm bilaterally chronic skin changes noted SKIN: No PATHOLOGIC moles, rashes, lesions or ulcers were noted other than what is listed above NEURO: Alert and Oriented 4, Cranial nerves II to XII grossly intact. No focal. deficits grossly noted PSYCH: Pleasant, Good attention Lab Results 03/25 08:38 Glucose Level: 112 Sodium Level: 140 Potassium Level: 3.9 BUN: 9.0 Creatinine Lvl (s): 0.78 03/25 04:53 WBC: 10.6 Hgb: 8.4 L Hct: 24.5 L Platelet: 168 Neutrophil %: 77.6 H 03/24 23:51 WBC: 12.6 H Hgb: 8.1 L Hct: 23.3 L Platelet: 174 Neutrophil %: 78.7 H 03/24 18:05 WBC: 11.2 H Hgb: 8.2 L Hct: 24.8 L Platelet: 183 Neutrophil %: 80.8 H 03/24 12:00 WBC: 12.4 H Hgb: 8.2 L Hct: 24.4 L Platelet: 191 Neutrophil %: 81.8 H 03/24 08:42 Hgb: 7.9 L Hct: 23.7 L 03/24 04:13 WBC: 14.5 H Hgb: 8.1 L Hct: 24.2 L Platelet: 205 Neutrophil %: 85.6 H Glucose Level: 140 H Sodium Level: 143 Potassium Level: 3.6 BUN: 11.0 Creatinine Lvl (s): 0.85 Imaging Results and Diagnostics XR Chest 1 View Result Date: March 24, 2023 Verified By: EVELINE DEAN, KASI L CLINICAL STATEMENT: IMPRESSION: Worsening bilateral basilar infiltrates consistent with pneumonia. Small bilateral pleural effusions. CT Angio GI Bleeding Scan Result Date: March 24, 2023 Verified By: LOUIS SOLANO MD CLINICAL STATEMENT: IMPRESSION: 1. Study is positive for left retroperitoneal hemorrhage extending to theleft pelvic extraperitoneal space. As discussed above, the pelvicextraperitoneal hemorrhage is the most prominent component and this could bethe origin of the bleeding. There is no contrast extravasation to indicate active hemorrhage on this exam.2. Diverticulosis without diverticulitis.3. Small bilateral pleural effusions with minimal adjacent atelectasis.4. IMPORTANT: PHYSICIAN, ATTEND TO THIS REPORT STONEY!!! XR Abdomen 2 Views w/ Decub/Erect Result Date: March 23, 2023 Verified By: HANH CORTEZ MD CLINICAL STATEMENT: IMPRESSION: Apparent dilatation of a loop of small bowel may represent adynamic ileus inthe settingof enteritis, in the absence of clinical evidence of obstruction. I have personally reviewed the images of this examination and agree with theresident's findings and interpretation. EKG I have reviewed all available EKGs, echocardiograms, stress test and cardiac catheterizations. Relevant laboratory data have also been reviewed. Cardiac catheterization 05/27/2021: Severe disease involving first large diagonal branch and mild to moderate disease involving the other vessel. 90% proximal D1. Transthoracic echocardiogram 12/16/2022: LVEF 40 to 45% with grade 2 diastolic dysfunction. ECG 03/24/2023: Sinus rhythm with left axis deviation. Assessment/Plan Impression: Paroxysmal atrial fibrillation s/p cryo pulmonary vein antral isolation ablation (03/23/2023) Sinus node dysfunction worse with medication HFrEF (45% 5) Acute CHF exacerbation CAD JORGE on CPAP COPD Retroperitoneal bleed Adynamic ileus in the setting of enteritis Plan: Patient presented on 03/23/2023 for elective cryo PVI ablation. Hospitalization has been complicated by hypotension requiring IV fluids and retroperitoneal bleed requiring blood transfusion. This is led to mild CHF exacerbation. Will order proBNP and give patient 1 dose of IV Lasix 40 mg. Will reassess fluid status tomorrow. Patient is on Levophed. Will add midodrine. At this time will hold Jardiance. Remaining management per primary. Assessment and plan was discussed with Dr. Zimmer. Any changes in assessment/plan, will be added as an addendum to this note by the attending physician. This note was transcribed via voice recognition software. Please forgive any errors or typos resulting from the use of this technology. Gopal Garcia DO, MS [employer] (PGY-6) Pager [phone]/ Cort[employer] Problem List/Past Medical History Ongoing (HFpEF) heart failure with preserved ejection fraction Acid reflux Acute sinusitis Arthritis Asbestosis Atrial fibrillation Atrial fibrillation Back pain BPH with urinary obstruction CAD LVEF 45%, mod LAE [2022] Chronic bronchitis Chronic hip pain Chronic insomnia Chronic low back pain Chronic neck pain Constipation COPD (chronic obstructive pulmonary disease) COPD exacerbation Cough Depression Diarrhea Elevated glucose Enlarged prostate Essential hypertension Fatigue GERD (gastroesophageal reflux disease) Glasses Herniation of intervertebral disc of lumbosacral region Hypercholesterolemia Hypotension Hypoxia Insomnia LABYRINTHINE DYSFUNCTION Left buttock pain Left hip pain Low back pain Low back pain Lower extremity weakness Lumbar nerve root injury inpingement Lumbosacral radiculitis Lumbosacral radiculopathy Major depressive disorder Mild anemia Mixed hyperlipidemia Muscle spasms of neck Muscle weakness Need for vaccination Oral thrush JORGE (obstructive sleep apnea) Osteoarthrosis Palpitations Paroxysmal atrial fibrillation Paroxysmal atrial fibrillation Persistent cough Psoriasis Retroperitoneal hemorrhage complicating cardiac catheterization Right shoulder pain Shortness of breath Shortness of breath on exertion Shoulder bursitis Sinus node dysfunction Spinal stenosis Upper back pain Upper back pain on right side Urinary incontinence Vitamin B12 deficiency Wheezing Historical No qualifying data Procedure/Surgical History Echocardiogram: 12/16/22 Holter monitor: 04/04/22 Echocardiogram: 03/10/22 Echocardiogram: 10/11/21 CT of thorax: 10/11/21 Cardiac catheterization: 05/27/21 Cardiac catheterization: 05/27/21 Cardiovascular stress testin05/20/21 Stress echocardiography using dobutamine: 08/04/18 Stress echocardiography: 08/04/18 Echocardiography: 08/02/18 Echocardiogram: 08/02/18 Echocardiogram: 03/18/17 Cardiovascular stress testin02/24/17 Laminectomy: 06/01/14 Colonoscopy: 12/23/12 Hernia repair: 1998 ORIF - Open reduction and internal fixation of fracture: 1980 Appendectomy: 194 Appendectomy Hemorrhoidectomy Medications Inpatient budesonide, 0.5 mg= 2 mL, Inhalation, BIDRT Cymbalta, 120 mg= 2 cap(s), Oral, qDay DuoNeb, 3 mL, Inhalation, q4hRT, PRN DuoNeb, 3 mL, Inhalation, QIDRT finasteride 1 mg oral tablet, 1 mg= 1 tab(s), Oral, qDay Jardiance, 10 mg= 1 tab(s), Oral, qAM LORazepam, 0.5 mg= 1 tab(s), Oral, qHS metoprolol succinate 25 mg oral TABLET extended release, 25 mg= 1 tab(s), Oral, qDay Miralax Powder Packet, 17 gram(s)= 15 mL, Oral, qDay, PRN morphine, 2 mg= 1 mL, IV Push, q1h, PRN Mucinex 600 mg oral tablet, extended release, 600 mg= 1 tab(s), Oral, q12h nitroglycerin 0.4 mg sublingual tablet, 0.4 mg= 1 tab(s), Sublingual, q5min, PRN [place] 325- 5 mg oral tablet, 1 tab(s), Oral, q4h, PRN Norepinephrine for IV 8 mg [5 mcg/min] + NS PMX titrate 250 mL potassium chloride, 20 mEq= 2 cap(s), Oral, AsDirected, PRN Protonix, 40 mg= 1 tab(s), Oral, BIDAC rosuvastatin, 5 mg= 1 tab(s), Oral, Daily tamsulosin, 0.8 mg= 2 cap(s), Oral, qHS Tikosyn, 250 mcg= 1 cap(s), Oral, q12h Tylenol, 650 mg= 2 tab(s), Oral, q4h, PRN Home budesonide 1 mg/2 mL inhalation suspension, 0.5 mg= 1 mL, Inhalation, BID, 11 refills Cymbalta 60 mg oral delayed release capsule, 120 mg= 2 cap(s), Oral, qDay, 3 refills Eliquis 5 mg oral tablet, 5 mg= 1 tab(s), Oral, BID finasteride 1 mg oral tablet, 1 mg= 1 tab(s), Oral, qDay Jardiance 25 mg oral tablet, 12.5 mg= 0.5 tab(s), Oral, qAM, 3 refills LORazepam 0.5 mg oral tablet, 0.5 mg= 1 tab(s), Oral, qHS metoprolol succinate 25 mg oral TABLET extended release, 25 mg= 1 tab(s), Oral, qDay, 3 refills Mucinex 600 mg oral tablet, extended release, 600 mg= 1 tab(s), Oral, q12h nitroglycerin 0.4 mg sublingual tablet, 0.4 mg= 1 tab(s), Sublingual, q5min, PRN PriLOSEC OTC 20 mg oral delayed release tablet, 20 mg= 1 tab(s), Oral, qDayAC rosuvastatin 5 mg oral tablet, 5 mg= 1 tab(s), Oral, Daily, 3 refills Stiolto Respimat 60 ACT 2.5 mcg-2.5 mcg/inh inhalation aerosol, 2 puff(s), Inhalation, qDay tamsulosin 0.4 mg oral capsule, 0.8 mg= 2 cap(s), qDay Tikosyn 250 mcg oral capsule, 250 mcg= 1 cap(s), Oral, q12h, 3 refills Vitamin B12, See Instructions Vitamin D3, qDay Xopenex 0.63 mg/3 mL inhalation solution, 0.63 mg= 3 mL, Nebulized, TID Allergies NKA Social History Smoking Status - 01/04/2018 Former smoker Alcohol - Denies Alcohol Use, 04/27/2017 Use: Current. 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 Self described orientation: Straight or heterosexual., 12/13/2022 Substance Abuse - Denies Substance Abuse, 04/27/2017 Use: Never., 09/27/2018 Tobacco Tobacco Use: Former smoker, quit more than 30 days ago., 09/27/2018 Family History COPD: Mother. Coronary artery disease: Grandparent. Emphysema of lung: Mother. Heart disease: Negative: Father. Immunizations pneumococcal 13-valent conjugate vaccine: 0 unknown unit (12/24/15) pneumococcal 23-valent vaccine(Pneumovax: 0 unknown unit (07/11/13) pneumococcal 23-valent vaccine(Pneumovax: 0 unknown unit (05/11/06) SARS-CoV-2 (COVID-19) mRNA-1273 vaccine: 0.25 unknown unit (01/10/21) SARS-CoV-2 (COVID-19) mRNA-1273 vaccine: 100 unknown unit (05/11/20) SARS-CoV-2 (COVID-19) mRNA-1273 vaccine: 100 unknown unit (04/13/20) tetanus-diphtheria toxoids: 0 unknown unit (08/27/13) Digitally Signed by GOPAL GARCIA DO on 03/25/2023 04:20 PM [facility] [id number] Note ORIGINAL EXAMINATION: ONE XRAY VIEW OF THE CHEST 03/25/2023 12:09 am COMPARISON: Chest x-ray on 03/23/2023. CT abdomen and pelvis on 03/24/2023 HISTORY: ORDERING SYSTEM PROVIDED HISTORY: Reason for Exam: sob FINDINGS: The heart size is normal. There are bilateral basilar lung infiltrates that have increased since 03/23/2023. Small amount of pleural fluid is present bilaterally, better seen on the CT scan. There is no pulmonary edema. No pneumothorax is present. No acute skeletal abnormality is detected. IMPRESSION: Worsening bilateral basilar infiltrates consistent with pneumonia. Small bilateral pleural effusions. Interpreted by: Kasi Mosquera MD Preliminary Report By: Kasi Mosquera MD Electronically signed By Kasi Mosquera MD Dictated Date: 03/25/2023 1:02:35 AM Prelim Date: 03/25/2023 1:04:26 AM Sign Date: 03/25/2023 1:04:26 AM [facility] Vascular surgery Consult note Date of Service 03/24/2023 Reason for Consultation Left sided retroperitoneal hematoma History of Present Illness This is an 82-year-old male who underwent cardiac ablation yesterday for PAF. He had an initial episode of hypotension immediately after the procedure. No significant issues noted at either access site, which were both venous sticks. Patient has been struggling with hypotension overnight and throughout the course of this morning. He was finally weaned off of pressor support by the time I saw him in the early afternoon. He was also complaining of some neck pain and feeling of abdominal distention. He had a drop in his hemoglobin, which prompted CT abdomen and pelvis. This showed a left sided retroperitoneal hematoma with no active extravasation. Patient is currently ordered transfusion of packed red blood cells. Otherwise is feeling good. Review of Systems A 14 point review of systems was discussed and was negative besides what is mentioned in the above HPI. Physical Exam Vitals and Measurements T: 36.5 C (Oral) TMIN: 36.3 C (Oral) TMAX: 36.8 C (Oral) HR: 81(Monitored) RR: 16 BP: 95/53 BP: 92/47(Line) SpO2: 94% HT: 172.7 cm WT: 83.7 kg BMI: 30.38 Weight Current Weight Dosing Weight: 90.6 kg (03/23/23) Current Weight: 83.7 kg (03/24/23) Current Weight: 80.4 kg (03/23/23) General Appearance: No acute distress; A&Ox3 Head: Normocephalic/atraumatic EENT: PERRLA, EOMI, moist mucous membranes Neck: Supple, no thyromegaly, no JVD appreciated Cardiac: RRR, normal S1 and S2, no murmurs, rubs, or gallops Lungs: Normal rise and fall of the chest, clear to auscultation bilaterally, no wheezes, crackles, or gallops Abdomen: Soft, mild abdominal distention, nontender, bowel sounds present, no guarding or rigidity Musculoskeletal: Strength 5/5 in all muscle groups Extremities: No lower extremity edema bilaterally; palp radial and femoral pulses Neurological: Alert and oriented to person, no focal deficits noted, DTRs are 2+, CN II through XIIappear to be intact Skin: No active skin lesions or rashes Lab Results 03/24 12:00 WBC: 12.4 H Hgb: 8.2 L Hct: 24.4 L Platelet: 191 Neutrophil %: 81.8 H 03/24 08:42 Hgb: 7.9 L Hct: 23.7 L 03/24 04:13 WBC: 14.5 H Hgb: 8.1 L Hct: 24.2 L Platelet: 205 Neutrophil %: 85.6 H Glucose Level: 140 H Sodium Level: 143 Potassium Level: 3.6 BUN: 11.0 Creatinine Lvl (s): 0.85 03/23 06:12 WBC: 9.0 Hgb: 12.7 L Hct: 37.4 L Platelet: 211 Neutrophil %: 77.5 H Protime: 15.2 H PT International Ratio: 1.3 Glucose Level: 107 Sodium Level: 141 Potassium Level: 3.6 BUN: 13.0 Creatinine Lvl (s): 0.93 Imaging Results and Diagnostics CT Angio GI Bleeding Scan Result Date: March 24, 2023 Verified By: LOUIS SOLANO MD CLINICAL STATEMENT: IMPRESSION: 1. Study is positive for left retroperitoneal hemorrhage extending to theleft pelvic extraperitoneal space. As discussed above, the pelvicextraperitoneal hemorrhage is the most prominent component and this could bethe origin of the bleeding. There is no contrast extravasation to indicate active hemorrhage on this exam.2. Diverticulosis without diverticulitis.3. Small bilateral pleural effusions with minimal adjacent atelectasis.4. IMPORTANT: PHYSICIAN, ATTEND TO THIS REPORT STONEY!!! XR Abdomen 2 Views w/ Decub/Erect Result Date: March 23, 2023 Verified By: HANH CORTEZ MD CLINICAL STATEMENT: IMPRESSION: Apparent dilatation of a loop of small bowel may represent adynamic ileus inthe settingof enteritis, in the absence of clinical evidence of obstruction. I have personally reviewed the images of this examination and agree with theresident's findings and interpretation. Assessment/Plan Angina pectoris, nocturnal Back pain CAD in ak chin artery Chronic insomnia COPD (chronic obstructive pulmonary disease) Retroperitoneal hemorrhage complicating cardiac catheterization -Patient appears to be hemodynamically stable -No need for acute vascular surgical intervention at this time -Agree with transfusion and fluid resuscitation as needed -Would continue bedrest till tomorrow morning and keep him on a clear liquid diet -If hemodynamics remain stable, hemoglobin is appropriate, and his symptoms have improved, okay to increase activity and diet tomorrow morning -Will defer restarting anticoagulation to EP physicians Right shoulder pain Orders: Communication Order (scheduled) Problem List/Past Medical History Ongoing (HFpEF) heart failure with preserved ejection fraction Acid reflux Acute sinusitis Arthritis Asbestosis Atrial fibrillation Atrial fibrillation Back pain BPH with urinary obstruction CAD LVEF 45%, mod LAE [2022] Chronic bronchitis Chronic hip pain Chronic insomnia Chronic low back pain Chronic neck pain Constipation COPD (chronic obstructive pulmonary disease) COPD exacerbation Cough Depression Diarrhea Elevated glucose Enlarged prostate Essential hypertension Fatigue GERD (gastroesophageal reflux disease) Glasses Herniation of intervertebral disc of lumbosacral region Hypercholesterolemia Hypotension Hypoxia Insomnia LABYRINTHINE DYSFUNCTION Left buttock pain Left hip pain Low back pain Low back pain Lower extremity weakness Lumbar nerve root injury inpingement Lumbosacral radiculitis Lumbosacral radiculopathy Major depressive disorder Mild anemia Mixed hyperlipidemia Muscle spasms of neck Muscle weakness Need for vaccination Oral thrush JORGE (obstructive sleep apnea) Osteoarthrosis Palpitations Paroxysmal atrial fibrillation Paroxysmal atrial fibrillation Persistent cough Psoriasis Retroperitoneal hemorrhage complicating cardiac catheterization Right shoulder pain Shortness of breath Shortness of breath on exertion Shoulder bursitis Sinus node dysfunction Spinal stenosis Upper back pain Upper back pain on right side Urinary incontinence Vitamin B12 deficiency Wheezing Historical No qualifying data Procedure/Surgical History Echocardiogram: 12/16/22 Holter monitor: 04/04/22 Echocardiogram: 03/10/22 Echocardiogram: 10/11/21 CT of thorax: 10/11/21 Cardiac catheterization: 05/27/21 Cardiac catheterization: 05/27/21 Cardiovascular stress testin05/20/21 Stress echocardiography using dobutamine: 08/04/18 Stress echocardiography: 08/04/18 Echocardiography: 08/02/18 Echocardiogram: 08/02/18 Echocardiogram: 03/18/17 Cardiovascular stress testin02/24/17 Laminectomy: 06/01/14 Colonoscopy: 12/23/12 Hernia repair: 1998 ORIF - Open reduction and internal fixation of fracture: 1980 Appendectomy: 1944 Appendectomy Hemorrhoidectomy Medications Inpatient budesonide, 0.5 mg= 2 mL, Inhalation, BID Cymbalta, 120 mg= 2 cap(s), Oral, qDay DuoNeb, 3 mL, Inhalation, QIDRT finasteride 1 mg oral tablet, 1 mg= 1 tab(s), Oral, qDay Jardiance, 10 mg= 1 tab(s), Oral, qAM LORazepam, 0.5 mg= 1 tab(s), Oral, qHS metoprolol succinate 25 mg oral TABLET extended release, 25 mg= 1 tab(s), Oral, qDay morphine, 2 mg= 1 mL, IV Push, q1h, PRN Mucinex 600 mg oral tablet, extended release, 600 mg= 1 tab(s), Oral, q12h nitroglycerin 0.4 mg sublingual tablet, 0.4 mg= 1 tab(s), Sublingual, q5min, PRN Columbia 325- 5 mg oral tablet, 1 tab(s), Oral, q4h, PRN Norepinephrine for IV 8 mg [5 mcg/min] + NS PMX titrate 250 mL NS 500 mL 500 mL, 500 mL, Intravenous potassium chloride, 20 mEq= 2 cap(s), Oral, AsDirected, PRN Protonix, 40 mg= 1 tab(s), Oral, BIDAC rosuvastatin, 5 mg= 1 tab(s), Oral, Daily tamsulosin, 0.8 mg= 2 cap(s), Oral, qDay Tikosyn, 250 mcg= 1 cap(s), Oral, q12h Tylenol, 650 mg= 2 tab(s), Oral, q4h, PRN Home budesonide 1 mg/2 mL inhalation suspension, 0.5 mg= 1 mL, Inhalation, BID, 11 refills Cymbalta 60 mg oral delayed release capsule, 120 mg= 2 cap(s), Oral, qDay, 3 refills Eliquis 5 mg oral tablet, 5 mg= 1 tab(s), Oral, BID finasteride 1 mg oral tablet, 1 mg= 1 tab(s), Oral, qDay Jardiance 25 mg oral tablet, 12.5 mg= 0.5 tab(s), Oral, qAM, 3 refills LORazepam 0.5 mg oral tablet, 0.5 mg= 1 tab(s), Oral, qHS metoprolol succinate 25 mg oral TABLET extended release, 25 mg= 1 tab(s), Oral, qDay, 3 refills Mucinex 600 mg oral tablet, extended release, 600 mg= 1 tab(s), Oral, q12h nitroglycerin 0.4 mg sublingual tablet, 0.4 mg= 1 tab(s), Sublingual, q5min, PRN PriLOSEC OTC 20 mg oral delayed release tablet, 20 mg= 1 tab(s), Oral, qDayAC rosuvastatin 5 mg oral tablet, 5 mg= 1 tab(s), Oral, Daily, 3 refills Stiolto Respimat 60 ACT 2.5 mcg-2.5 mcg/inh inhalation aerosol, 2 puff(s), Inhalation, qDay tamsulosin 0.4 mg oral capsule, 0.8 mg= 2 cap(s), qDay Tikosyn 250 mcg oral capsule, 250 mcg= 1 cap(s), Oral, q12h, 3 refills Vitamin B12, See Instructions Vitamin D3, qDay Xopenex 0.63 mg/3 mL inhalation solution, 0.63 mg= 3 mL, Nebulized, TID Allergies NKA Social History Smoking Status - 01/04/2018 Former smoker Alcohol - Denies Alcohol Use, 04/27/2017 Use: Current. 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 Self described orientation: Straight or heterosexual., 12/13/2022 Substance Abuse - Denies Substance Abuse, 04/27/2017 Use: Never., 09/27/2018 Tobacco Tobacco Use: Former smoker, quit more than 30 days ago., 09/27/2018 Family History COPD: Mother. Coronary artery disease: Grandparent. Emphysema of lung: Mother. Heart disease: Negative: Father. Immunizations pneumococcal 13-valent conjugate vaccine: 0 unknown unit (12/24/15) pneumococcal 23-valent vaccine(Pneumovax: 0 unknown unit (07/11/13) pneumococcal 23-valent vaccine(Pneumovax: 0 unknown unit (05/11/06) SARS-CoV-2 (COVID-19) mRNA-1273 vaccine: 0.25 unknown unit (01/10/21) SARS-CoV-2 (COVID-19) mRNA-1273 vaccine: 100 unknown unit (05/11/20) SARS-CoV-2 (COVID-19) mRNA-1273 vaccine: 100 unknown unit (04/13/20) tetanus-diphtheria toxoids: 0 unknown unit (08/27/13) Digitally Signed by ALDA MONTES MD on 03/24/2023 01:20 PM [id number] Consult note Date of Service 03/24/2023 Reason for Consultation Concern for GI bleed Referring Physician Cardiology/EP History of Present Illness Patient is an 82-year-old male with a past medical history significant for pA- fib on Eliquis (LD 03/22), CAD, COPD with pulmonary fibrosis, JORGE, GERD, prostate hypertrophy with obstruction, dyslipidemia, psoriasis, spinal stenosis and B12 deficiency whom we have been consulted to evaluate for concernfor GI bleed. Patient presented to the hospital on 03/23 for planned cryoablation for pA-fib which was performed the same day. Postprocedure, patient developed abdominal pain and hypotension which was corrected withfluids and pressor support. On admission, Hgb was 12.7. This dropped to 8.1 this a.m. CTA this morning revealed 7.5 x 5.2 cm left retroperitoneal hemorrhage extending into the left pelvic extraperitoneal space. No contrast extravasation indicating active hemorrhage was noted. Anticoagulants are on hold. We have been asked to evaluate the patient from a GI standpoint. Patient examined resting in bed with his and 2 daughters at the bedside. He reports he has hadabout 4-week history of nonbloody diarrhea which they thought was possibly due to Tikosyn therapy. His last bowel movement was prior to admission. He has had no further diarrhea. Denies any melena orhematochezia. Stool culture and Shiga toxins were negative on 03/13. Patient endorses he developed some upper and left-sided abdominal pain following his procedure yesterday. This continues but is somewhat better today. He tolerated clear liquids this morning. He has had no nausea or vomiting. He endorses a history of GERD which is controlled with occasional use of Prilosec. No chronic issues with dysphagia. Patient previously followed with Dr. Conti and underwent bidirectional endoscopic procedures with him in 2016 secondary to anemia and possible diverticular bleed. Colonoscopy report indicates history of colonic polyps with 2016 exam notable only for diverticular disease. EGD revealed mild gastritis, otherwise normal. Biopsies negative for H. pylori. Patient denies any known familial history ofgastrointestinal diseases or malignancies. Review of Systems 10 point review of systems was completed. Pertinent positives/negatives are described above in the HPI and are otherwise negative. Physical Exam Vitals and Measurements T: 36.5 C (Oral) TMIN: 36.3 C (Oral) TMAX: 36.8 C (Oral) HR: 92(Monitored) RR: 16 BP: 100/56 BP: 92/47(Line) SpO2: 93% HT: 172.7 cm WT: 90.6 kg BMI: 30.38 Weight Current Weight Dosing Weight: 90.6 kg (03/23/23) Current Weight: 80.4 kg (03/23/23) General Appearance: Lying in bed, in no acute distress. Appropriate mood and affect. Head: Head is normocephalic and atraumatic. EENT: Sclera are nonicteric. Neck is supple without adenopathy. Trachea is midline. Cardiac: Sinus on telemetry. Lungs: No signs of respiratory distress. Lungs are clear anteriorly. On room air. Abdomen: Abdomen is obese, soft, symmetric, no rebound/guarding. Mild tenderness to LLQ. BS x 4. Extremities: No edema noted. Neurological: The patient is awake, alert, and oriented to person, place, and time with normal speech. Skin: Skin is warm, dry. Appropriate color for ethnicity. Lab Results 03/24 08:42 Hgb: 7.9 L Hct: 23.7 L 03/24 04:13 WBC: 14.5 H Hgb: 8.1 L Hct: 24.2 L Platelet: 205 Neutrophil %: 85.6 H Glucose Level: 140 H Sodium Level: 143 Potassium Level: 3.6 BUN: 11.0 Creatinine Lvl (s): 0.85 03/23 06:12 WBC: 9.0 Hgb: 12.7 L Hct: 37.4 L Platelet: 211 Neutrophil %: 77.5 H Protime: 15.2 H PT International Ratio: 1.3 Glucose Level: 107 Sodium Level: 141 Potassium Level: 3.6 BUN: 13.0 Creatinine Lvl (s): 0.93 Imaging Results and Diagnostics CT Angio GI Bleeding Scan Result Date: March 24, 2023 Verified By: LOUIS SOLANO MD CLINICAL STATEMENT: IMPRESSION: 1. Study is positive for left retroperitoneal hemorrhage extending to theleft pelvic extraperitoneal space. As discussed above, the pelvicextraperitoneal hemorrhage is the most prominent component and this could bethe origin of the bleeding. There is no contrast extravasation to indicate active hemorrhage on this exam.2. Diverticulosis without diverticulitis.3. Small bilateral pleural effusions with minimal adjacent atelectasis.4. IMPORTANT: PHYSICIAN, ATTEND TO THIS REPORT STONEY!!! XR Abdomen 2 Views w/ Decub/Erect Result Date: March 23, 2023 Verified By: HANH CORTEZ MD CLINICAL STATEMENT: IMPRESSION: Apparent dilatation of a loop of small bowel may represent adynamic ileus inthe settingof enteritis, in the absence of clinical evidence of obstruction. I have personally reviewed the images of this examination and agree with theresident's findings and interpretation. This document was transcribed utilizing voice recognition software and may contain typographical errors. Assessment/Plan Problem list: Acute blood loss/normocytic anemia pA-fib s/p cryoablation (03/23) Abnormal imaging > Left retroperitoneal hemorrhage (CTA 03/24) > Questionable ileus (x-ray, 03/23) Hypotension, improved Diarrhea, resolved We been asked to evaluate the patient from a GI standpoint secondary to concern for GI bleeding in the setting of acute anemia. Patient with evidence of acute left retroperitoneal hemorrhage on CT imaging this morning which likely is the cause for his acute anemia. Vascular surgery has been consulted as well. Patient is currently hemodynamically stable, off of pressor support. He has remained free from any signs of active GI bleeding since presentation. Hgb has stabilized this morning with recent repeat 8.2. Etiology for his recent issues with diarrhea uncertain. Could be secondary to Tikosyn therapy. If diarrhea returns, recommend primary team order C. difficile and stool GI pathogen panel. If diarrhea continues, may benefit from further workup in the outpatient setting. Plan: Recommend for primary team to continue to monitor for hemodynamic instability and signs of active bleeding. Trend H&H and transfuse as needed--with a goal to maintain hemoglobin greater than 8. No current plan/indication for urgent/emergent endoscopic procedures at this time Recommend to maintain n.p.o. and on bedrest until evaluated by vascular surgery. As noted above, if diarrhea returns, recommend C. difficile and stool GI pathogen panel Management of remaining diagnoses per primary team/consultants Further orders/recommendations pending discussion with Dr. Perea. Please refer to his addendum for same. Thank you for this consult. Problem List/Past Medical History Ongoing (HFpEF) heart failure with preserved ejection fraction Acid reflux Acute sinusitis Arthritis Asbestosis Atrial fibrillation Atrial fibrillation Back pain BPH with urinary obstruction CAD LVEF 45%, mod LAE [2022] Chronic bronchitis Chronic hip pain Chronic insomnia Chronic low back pain Chronic neck pain Constipation COPD (chronic obstructive pulmonary disease) COPD exacerbation Cough Depression Diarrhea Elevated glucose Enlarged prostate Essential hypertension Fatigue GERD (gastroesophageal reflux disease) Glasses Herniation of intervertebral disc of lumbosacral region Hypercholesterolemia Hypotension Hypoxia Insomnia LABYRINTHINE DYSFUNCTION Left buttock pain Left hip pain Low back pain Low back pain Lower extremity weakness Lumbar nerve root injury inpingement Lumbosacral radiculitis Lumbosacral radiculopathy Major depressive disorder Mild anemia Mixed hyperlipidemia Muscle spasms of neck Muscle weakness Need for vaccination Oral thrush JORGE (obstructive sleep apnea) Osteoarthrosis Palpitations Paroxysmal atrial fibrillation Paroxysmal atrial fibrillation Persistent cough Psoriasis Right shoulder pain Shortness of breath Shortness of breath on exertion Shoulder bursitis Sinus node dysfunction Spinal stenosis Upper back pain Upper back pain on right side Urinary incontinence Vitamin B12 deficiency Wheezing Historical No qualifying data Procedure/Surgical History Echocardiogram: 12/16/22 Holter monitor: 04/04/22 Echocardiogram: 03/10/22 Echocardiogram: 10/11/21 CT of thorax: 10/11/21 Cardiac catheterization: 05/27/21 Cardiac catheterization: 05/27/21 Cardiovascular stress testin05/20/21 Stress echocardiography using dobutamine: 08/04/18 Stress echocardiography: 08/04/18 Echocardiography: 08/02/18 Echocardiogram: 08/02/18 Echocardiogram: 03/18/17 Cardiovascular stress testin02/24/17 Laminectomy: 06/01/14 Colonoscopy: 12/23/12 Hernia repair: 1998 ORIF - Open reduction and internal fixation of fracture: 1980 Appendectomy: 194 Appendectomy Hemorrhoidectomy Medications Inpatient budesonide, 0.5 mg= 2 mL, Inhalation, BID Cymbalta, 120 mg= 2 cap(s), Oral, qDay DuoNeb, 3 mL, Inhalation, QIDRT finasteride 1 mg oral tablet, 1 mg= 1 tab(s), Oral, qDay Jardiance, 10 mg= 1 tab(s), Oral, qAM LORazepam, 0.5 mg= 1 tab(s), Oral, qHS metoprolol succinate 25 mg oral TABLET extended release, 25 mg= 1 tab(s), Oral, qDay morphine, 2 mg= 1 mL, IV Push, q1h, PRN Mucinex 600 mg oral tablet, extended release, 600 mg= 1 tab(s), Oral, q12h nitroglycerin 0.4 mg sublingual tablet, 0.4 mg= 1 tab(s), Sublingual, q5min, PRN Columbia 325- 5 mg oral tablet, 1 tab(s), Oral, q4h, PRN Norepinephrine for IV 8 mg [5 mcg/min] + NS PMX titrate 250 mL NS 500 mL 500 mL, 500 mL, Intravenous potassium chloride, 20 mEq= 2 cap(s), Oral, AsDirected, PRN Protonix, 40 mg= 1 tab(s), Oral, BIDAC rosuvastatin, 5 mg= 1 tab(s), Oral, Daily tamsulosin, 0.8 mg= 2 cap(s), Oral, qDay Tikosyn, 250 mcg= 1 cap(s), Oral, q12h Tylenol, 650 mg= 2 tab(s), Oral, q4h, PRN Home budesonide 1 mg/2 mL inhalation suspension, 0.5 mg= 1 mL, Inhalation, BID, 11 refills Cymbalta 60 mg oral delayed release capsule, 120 mg= 2 cap(s), Oral, qDay, 3 refills Eliquis 5 mg oral tablet, 5 mg= 1 tab(s), Oral, BID finasteride 1 mg oral tablet, 1 mg= 1 tab(s), Oral, qDay Jardiance 25 mg oral tablet, 12.5 mg= 0.5 tab(s), Oral, qAM, 3 refills LORazepam 0.5 mg oral tablet, 0.5 mg= 1 tab(s), Oral, qHS metoprolol succinate 25 mg oral TABLET extended release, 25 mg= 1 tab(s), Oral, qDay, 3 refills Mucinex 600 mg oral tablet, extended release, 600 mg= 1 tab(s), Oral, q12h nitroglycerin 0.4 mg sublingual tablet, 0.4 mg= 1 tab(s), Sublingual, q5min, PRN PriLOSEC OTC 20 mg oral delayed release tablet, 20 mg= 1 tab(s), Oral, qDayAC rosuvastatin 5 mg oral tablet, 5 mg= 1 tab(s), Oral, Daily, 3 refills Stiolto Respimat 60 ACT 2.5 mcg-2.5 mcg/inh inhalation aerosol, 2 puff(s), Inhalation, qDay tamsulosin 0.4 mg oral capsule, 0.8 mg= 2 cap(s), qDay Tikosyn 250 mcg oral capsule, 250 mcg= 1 cap(s), Oral, q12h, 3 refills Vitamin B12, See Instructions Vitamin D3, qDay Xopenex 0.63 mg/3 mL inhalation solution, 0.63 mg= 3 mL, Nebulized, TID Allergies NKA Social History Smoking Status - 01/04/2018 Former smoker Alcohol - Denies Alcohol Use, 04/27/2017 Use: Current. 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 Self described orientation: Straight or heterosexual., 12/13/2022 Substance Abuse - Denies Substance Abuse, 04/27/2017 Use: Never., 09/27/2018 Tobacco Tobacco Use: Former smoker, quit more than 30 days ago., 09/27/2018 Family History COPD: Mother. Coronary artery disease: Grandparent. Emphysema of lung: Mother. Heart disease: Negative: Father. Immunizations pneumococcal 13-valent conjugate vaccine: 0 unknown unit (12/24/15) pneumococcal 23-valent vaccine(Pneumovax: 0 unknown unit (07/11/13) pneumococcal 23-valent vaccine(Pneumovax: 0 unknown unit (05/11/06) SARS-CoV-2 (COVID-19) mRNA-1273 vaccine: 0.25 unknown unit (01/10/21) SARS-CoV-2 (COVID-19) mRNA-1273 vaccine: 100 unknown unit (05/11/20) SARS-CoV-2 (COVID-19) mRNA-1273 vaccine: 100 unknown unit (04/13/20) tetanus-diphtheria toxoids: 0 unknown unit (08/27/13) Digitally Signed by ALE DELANEY on 03/24/2023 12:40 PM [id number] Gastroenterology Consult note Date of Service 03/24/2023 Reason for Consultation Concern for GI bleed Referring Physician Cardiology/EP History of Present Illness Patient is an 82-year-old male with a past medical history significant for pA- fib on Eliquis (LD 03/22), CAD, COPD with pulmonary fibrosis, JORGE, GERD, prostate hypertrophy with obstruction, dyslipidemia, psoriasis, spinal stenosis and B12 deficiency whom we have been consulted to evaluate for concernfor GI bleed. Patient presented to the hospital on 03/23 for planned cryoablation for pA-fib which was performed the same day. Postprocedure, patient developed abdominal pain and hypotension which was corrected withfluids and pressor support. On admission, Hgb was 12.7. This dropped to 8.1 this a.m. CTA this morning revealed 7.5 x 5.2 cm left retroperitoneal hemorrhage extending into the left pelvic extraperitoneal space. No contrast extravasation indicating active hemorrhage was noted. Anticoagulants are on hold. We have been asked to evaluate the patient from a GI standpoint. Patient examined resting in bed with his and 2 daughters at the bedside. He reports he has hadabout 4-week history of nonbloody diarrhea which they thought was possibly due to Tikosyn therapy. His last bowel movement was prior to admission. He has had no further diarrhea. Denies any melena orhematochezia. Stool culture and Shiga toxins were negative on 03/13. Patient endorses he developed some upper and left-sided abdominal pain following his procedure yesterday. This continues but is somewhat better today. He tolerated clear liquids this morning. He has had no nausea or vomiting. He endorses a history of GERD which is controlled with occasional use of Prilosec. No chronic issues with dysphagia. Patient previously followed with Dr. Conti and underwent bidirectional endoscopic procedures with him in 2016 secondary to anemia and possible diverticular bleed. Colonoscopy report indicates history of colonic polyps with 2016 exam notable only for diverticular disease. EGD revealed mild gastritis, otherwise normal. Biopsies negative for H. pylori. Patient denies any known familial history ofgastrointestinal diseases or malignancies. Review of Systems 10 point review of systems was completed. Pertinent positives/negatives are described above in the HPI and are otherwise negative. Physical Exam Vitals and Measurements T: 36.5 C (Oral) TMIN: 36.3 C (Oral) TMAX: 36.8 C (Oral) HR: 92(Monitored) RR: 16 BP: 100/56 BP: 92/47(Line) SpO2: 93% HT: 172.7 cm WT: 90.6 kg BMI: 30.38 Weight Current Weight Dosing Weight: 90.6 kg (03/23/23) Current Weight: 80.4 kg (03/23/23) General Appearance: Lying in bed, in no acute distress. Appropriate mood and affect. Head: Head is normocephalic and atraumatic. EENT: Sclera are nonicteric. Neck is supple without adenopathy. Trachea is midline. Cardiac: Sinus on telemetry. Lungs: No signs of respiratory distress. Lungs are clear anteriorly. On room air. Abdomen: Abdomen is obese, soft, symmetric, no rebound/guarding. Mild tenderness to LLQ. BS x 4. Extremities: No edema noted. Neurological: The patient is awake, alert, and oriented to person, place, and time with normal speech. Skin: Skin is warm, dry. Appropriate color for ethnicity. Lab Results 03/24 08:42 Hgb: 7.9 L Hct: 23.7 L 03/24 04:13 WBC: 14.5 H Hgb: 8.1 L Hct: 24.2 L Platelet: 205 Neutrophil %: 85.6 H Glucose Level: 140 H Sodium Level: 143 Potassium Level: 3.6 BUN: 11.0 Creatinine Lvl (s): 0.85 03/23 06:12 WBC: 9.0 Hgb: 12.7 L Hct: 37.4 L Platelet: 211 Neutrophil %: 77.5 H Protime: 15.2 H PT International Ratio: 1.3 Glucose Level: 107 Sodium Level: 141 Potassium Level: 3.6 BUN: 13.0 Creatinine Lvl (s): 0.93 Imaging Results and Diagnostics CT Angio GI Bleeding Scan Result Date: March 24, 2023 Verified By: LOUIS SOLANO MD CLINICAL STATEMENT: IMPRESSION: 1. Study is positive for left retroperitoneal hemorrhage extending to theleft pelvic extraperitoneal space. As discussed above, the pelvicextraperitoneal hemorrhage is the most prominent component and this could bethe origin of the bleeding. There is no contrast extravasation to indicate active hemorrhage on this exam.2. Diverticulosis without diverticulitis.3. Small bilateral pleural effusions with minimal adjacent atelectasis.4. IMPORTANT: PHYSICIAN, ATTEND TO THIS REPORT STONEY!!! XR Abdomen 2 Views w/ Decub/Erect Result Date: March 23, 2023 Verified By: HANH CORTEZ MD CLINICAL STATEMENT: IMPRESSION: Apparent dilatation of a loop of small bowel may represent adynamic ileus inthe settingof enteritis, in the absence of clinical evidence of obstruction. I have personally reviewed the images of this examination and agree with theresident's findings and interpretation. This document was transcribed utilizing voice recognition software and may contain typographical errors. Assessment/Plan Problem list: Acute blood loss/normocytic anemia pA-fib s/p cryoablation (03/23) Abnormal imaging > Left retroperitoneal hemorrhage (CTA 03/24) > Questionable ileus (x-ray, 03/23) Hypotension, improved Diarrhea, resolved We been asked to evaluate the patient from a GI standpoint secondary to concern for GI bleeding in the setting of acute anemia. Patient with evidence of acute left retroperitoneal hemorrhage on CT imaging this morning which likely is the cause for his acute anemia. Vascular surgery has been consulted as well. Patient is currently hemodynamically stable, off of pressor support. He has remained free from any signs of active GI bleeding since presentation. Hgb has stabilized this morning with recent repeat 8.2. Etiology for his recent issues with diarrhea uncertain. Could be secondary to Tikosyn therapy. If diarrhea returns, recommend primary team order C. difficile and stool GI pathogen panel. If diarrhea continues, may benefit from further workup in the outpatient setting. Plan: Recommend for primary team to continue to monitor for hemodynamic instability and signs of active bleeding. Trend H&H and transfuse as needed--with a goal to maintain hemoglobin greater than 8. No current plan/indication for urgent/emergent endoscopic procedures at this time Recommend to maintain n.p.o. and on bedrest until evaluated by vascular surgery. As noted above, if diarrhea returns, recommend C. difficile and stool GI pathogen panel Management of remaining diagnoses per primary team/consultants Further orders/recommendations pending discussion with Dr. Perea. Please refer to his addendum for same. Thank you for this consult. Problem List/Past Medical History Ongoing (HFpEF) heart failure with preserved ejection fraction Acid reflux Acute sinusitis Arthritis Asbestosis Atrial fibrillation Atrial fibrillation Back pain BPH with urinary obstruction CAD LVEF 45%, mod LAE [2022] Chronic bronchitis Chronic hip pain Chronic insomnia Chronic low back pain Chronic neck pain Constipation COPD (chronic obstructive pulmonary disease) COPD exacerbation Cough Depression Diarrhea Elevated glucose Enlarged prostate Essential hypertension Fatigue GERD (gastroesophageal reflux disease) Glasses Herniation of intervertebral disc of lumbosacral region Hypercholesterolemia Hypotension Hypoxia Insomnia LABYRINTHINE DYSFUNCTION Left buttock pain Left hip pain Low back pain Low back pain Lower extremity weakness Lumbar nerve root injury inpingement Lumbosacral radiculitis Lumbosacral radiculopathy Major depressive disorder Mild anemia Mixed hyperlipidemia Muscle spasms of neck Muscle weakness Need for vaccination Oral thrush JORGE (obstructive sleep apnea) Osteoarthrosis Palpitations Paroxysmal atrial fibrillation Paroxysmal atrial fibrillation Persistent cough Psoriasis Right shoulder pain Shortness of breath Shortness of breath on exertion Shoulder bursitis Sinus node dysfunction Spinal stenosis Upper back pain Upper back pain on right side Urinary incontinence Vitamin B12 deficiency Wheezing Historical No qualifying data Procedure/Surgical History Echocardiogram: 12/16/22 Holter monitor: 04/04/22 Echocardiogram: 03/10/22 Echocardiogram: 10/11/21 CT of thorax: 10/11/21 Cardiac catheterization: 05/27/21 Cardiac catheterization: 05/27/21 Cardiovascular stress testin05/20/21 Stress echocardiography using dobutamine: 08/04/18 Stress echocardiography: 08/04/18 Echocardiography: 08/02/18 Echocardiogram: 08/02/18 Echocardiogram: 03/18/17 Cardiovascular stress testin02/24/17 Laminectomy: 06/01/14 Colonoscopy: 12/23/12 Hernia repair: 1998 ORIF - Open reduction and internal fixation of fracture: 1980 Appendectomy: 194 Appendectomy Hemorrhoidectomy Medications Inpatient budesonide, 0.5 mg= 2 mL, Inhalation, BID Cymbalta, 120 mg= 2 cap(s), Oral, qDay DuoNeb, 3 mL, Inhalation, QIDRT finasteride 1 mg oral tablet, 1 mg= 1 tab(s), Oral, qDay Jardiance, 10 mg= 1 tab(s), Oral, qAM LORazepam, 0.5 mg= 1 tab(s), Oral, qHS metoprolol succinate 25 mg oral TABLET extended release, 25 mg= 1 tab(s), Oral, qDay morphine, 2 mg= 1 mL, IV Push, q1h, PRN Mucinex 600 mg oral tablet, extended release, 600 mg= 1 tab(s), Oral, q12h nitroglycerin 0.4 mg sublingual tablet, 0.4 mg= 1 tab(s), Sublingual, q5min, PRN [place] 325- 5 mg oral tablet, 1 tab(s), Oral, q4h, PRN Norepinephrine for IV 8 mg [5 mcg/min] + NS PMX titrate 250 mL NS 500 mL 500 mL, 500 mL, Intravenous potassium chloride, 20 mEq= 2 cap(s), Oral, AsDirected, PRN Protonix, 40 mg= 1 tab(s), Oral, BIDAC rosuvastatin, 5 mg= 1 tab(s), Oral, Daily tamsulosin, 0.8 mg= 2 cap(s), Oral, qDay Tikosyn, 250 mcg= 1 cap(s), Oral, q12h Tylenol, 650 mg= 2 tab(s), Oral, q4h, PRN Home budesonide 1 mg/2 mL inhalation suspension, 0.5 mg= 1 mL, Inhalation, BID, 11 refills Cymbalta 60 mg oral delayed release capsule, 120 mg= 2 cap(s), Oral, qDay, 3 refills Eliquis 5 mg oral tablet, 5 mg= 1 tab(s), Oral, BID finasteride 1 mg oral tablet, 1 mg= 1 tab(s), Oral, qDay Jardiance 25 mg oral tablet, 12.5 mg= 0.5 tab(s), Oral, qAM, 3 refills LORazepam 0.5 mg oral tablet, 0.5 mg= 1 tab(s), Oral, qHS metoprolol succinate 25 mg oral TABLET extended release, 25 mg= 1 tab(s), Oral, qDay, 3 refills Mucinex 600 mg oral tablet, extended release, 600 mg= 1 tab(s), Oral, q12h nitroglycerin 0.4 mg sublingual tablet, 0.4 mg= 1 tab(s), Sublingual, q5min, PRN PriLOSEC OTC 20 mg oral delayed release tablet, 20 mg= 1 tab(s), Oral, qDayAC rosuvastatin 5 mg oral tablet, 5 mg= 1 tab(s), Oral, Daily, 3 refills Stiolto Respimat 60 ACT 2.5 mcg-2.5 mcg/inh inhalation aerosol, 2 puff(s), Inhalation, qDay tamsulosin 0.4 mg oral capsule, 0.8 mg= 2 cap(s), qDay Tikosyn 250 mcg oral capsule, 250 mcg= 1 cap(s), Oral, q12h, 3 refills Vitamin B12, See Instructions Vitamin D3, qDay Xopenex 0.63 mg/3 mL inhalation solution, 0.63 mg= 3 mL, Nebulized, TID Allergies NKA Social History Smoking Status - 01/04/2018 Former smoker Alcohol - Denies Alcohol Use, 04/27/2017 Use: Current. 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 Self described orientation: Straight or heterosexual., 12/13/2022 Substance Abuse - Denies Substance Abuse, 04/27/2017 Use: Never., 09/27/2018 Tobacco Tobacco Use: Former smoker, quit more than 30 days ago., 09/27/2018 Family History COPD: Mother. Coronary artery disease: Grandparent. Emphysema of lung: Mother. Heart disease: Negative: Father. Immunizations pneumococcal 13-valent conjugate vaccine: 0 unknown unit (12/24/15) pneumococcal 23-valent vaccine(Pneumovax: 0 unknown unit (07/11/13) pneumococcal 23-valent vaccine(Pneumovax: 0 unknown unit (05/11/06) SARS-CoV-2 (COVID-19) mRNA-1273 vaccine: 0.25 unknown unit (01/10/21) SARS-CoV-2 (COVID-19) mRNA-1273 vaccine: 100 unknown unit (05/11/20) SARS-CoV-2 (COVID-19) mRNA-1273 vaccine: 100 unknown unit (04/13/20) tetanus-diphtheria toxoids: 0 unknown unit (08/27/13) Digitally Signed by ALE DELANEY on 03/24/2023 12:40 PM [facility] [id number] Note ORIGINAL EXAMINATION: CTA OF THE ABDOMEN AND PELVIS WITH AND WITHOUT CONTRAST 03/24/2023 8:21 am: TECHNIQUE: CTA of the abdomen and pelvis was performed without and with the administration of intravenous contrast. Multiplanar reformatted images are provided for review. MIP images are provided for review. Automated exposure control, iterative reconstruction, and/or weight based adjustment of the mA/kV was utilized to reduce the radiation dose to as low as reasonably achievable. COMPARISON: Noncontrast exam May 26, 2016 HISTORY: ORDERING SYSTEM PROVIDED HISTORY: Reason for Exam: diffuse abdominal pain. low hemoglobin. recent ablation. ro retroperitoneal bleed FINDINGS: Minor degenerative changes are noted in the spine. Small bilateral pleural effusions are present, right larger than left, with minimal adjacent infiltrate or atelectasis especially at the right lower lobe. Liver, spleen, adrenal glands and pancreas are unremarkable. Small scattered renal cysts are present. There is some anterior displacement of the left kidney. No other renal finding. This exam is positive for a left retroperitoneal hematoma. This predominantly involves the posterior left renal fascia and the left ileo psoas with a perinephric component as well. The hemorrhage extends to the left pelvic extraperitoneal space, and this could potentially be the origin. The arterial phase images show no definite contrast extravasation to indicate active bleeding during the scan. Overall, the size of the hemorrhage is considered moderate. The most focal prominent region of blood is at the left pelvic extraperitoneal space, and this measures up to approximately 7.5 x 5.2 cm. The urinary bladder is displaced toward the right. There is some pre vesicle blood present as well. No adenopathy, free air or free fluid is identified. No intrinsic urinary bladder abnormality is visible. There is a prominent left fat containing inguinal hernia, and a small amount of pelvic hemorrhage extends into this. At the left inguinal region, there is minimal infiltrative change with a tiny droplet of air or gas. This could indicate previous procedure in this area. Moderately prominent diverticulosis is present, greatest at the sigmoid and left colon. No definite evidence for diverticulitis on these images. No other GI tract abnormality is visible. There is some aortic atherosclerosis. The abdominal aorta tapers normally without aneurysm. No significant focal area of vascular narrowing is identified. The left external iliac artery passes through the area of pelvic extraperitoneal hemorrhage. This vessel appears unremarkable. The left common femoral artery appears unremarkable as well. No additional contributory abnormality is identified. IMPRESSION: 1. Study is positive for left retroperitoneal hemorrhage extending to the left pelvic extraperitoneal space. As discussed above, the pelvic extraperitoneal hemorrhage is the most prominent component and this could be the origin of the bleeding. There is no contrast extravasation to indicate active hemorrhage on this exam. 2. Diverticulosis without diverticulitis. 3. Small bilateral pleural effusions with minimal adjacent atelectasis. 4. IMPORTANT: PHYSICIAN, ATTEND TO THIS REPORT STONEY!!! Interpreted by: Louis Solano MD Preliminary Report By: Louis Solano MD Electronically signed By Louis Solano MD Dictated Date: 03/24/2023 8:29:47 AM Prelim Date: 03/24/2023 8:45:15 AM Sign Date: 03/24/2023 8:45:15 AM Ordering Provider[facility] NoteSINUS RHYTHM SHORT VA INTERVAL LEFT AXIS DEVIATION Electronic Signature: ADRIAN LOUIS MD 03/25/2023 14:49:53[facility] 01-08[facility] Note ORIGINAL EXAMINATION: XR ABDOMEN SERIES WITH CHEST 1 VIEW03/23/2023 9:14 pm COMPARISON: Abdominal series radiographs 10/07/2018. HISTORY: ORDERING SYSTEM PROVIDED HISTORY: Reason for Exam: Abdominal pain. Patient states lower abdominal pain since last night, diarrhea x4 weeks, no nausea or vomiting. FINDINGS: The cardiomediastinal contours are within normal limits. Atherosclerotic aorta. No focal consolidation or pulmonary edema. Left basilar atelectasis and/or scarring. Mild gaseous distention of a loop of small bowel seen in the right hemiabdomen. Air seen within the colon and rectum. No abnormal calcifications visualized. No acute osseous abnormality. IMPRESSION: Apparent dilatation of a loop of small bowel may represent adynamic ileus in the setting of enteritis, in the absence of clinical evidence of obstruction. I have personally reviewed the images of this examination and agree with the resident's findings and interpretation. Interpreted by: Hanh Cortez Preliminary Report By: Marissa Mon Electronically signed By Hanh Cortez Dictated Date: 03/23/2023 10:06:15 PM Prelim Date: 03/23/2023 10:16:28 PM Sign Date: 03/23/2023 10:35:31 PM Ordering Provider: [facility]01[facility]08[facility]24 Evaluation + Plan noteExtracted from: Title:H&P 03/23/23 Author:DMITRY MCKEON MD ate:03/22/23 HISTORY & PHYSICALPCP: Keshav Rascon, MDCV: Azar Kahn MD Patient: Hiram Doran medical record# [id number] date of Admission: 03/23/23 CC: Atrial Fibrillation. HPI: 82 yr old patient presenting for CRYO Pulmonary Vein Antral Isolation (PVAI) ablation for Paroxysmal Atrial Fibrillation, CHADSVASC= 4, with symptoms of dyspnea, chest pain, and fatigue. He has sinus node dysfunction worsened on meds, hypotension on ranolazine. Inadequate relief of symptoms of Tikosyn. He has CAD not amenable to intervention. ALLERGIES: NKDA. HOME MEDICATIONS: 1. Eliquis 5mg BID, last dose 24 hours prior to procedure. 2. Tikosyn 250mcg q12hr. 3. Budesonide inhaler BID. 4. Vitamin D3 daily. 5. Vitamin B12. 6. Duloxetine 60mg capsule, 2 capsules daily. 7. Jardiance 25mg tablet, 1/2 tablet daily. 8. Guaifenesin 1 tablet q12hr. 9. Xopenex inhaler TID. 10. Lorazepam 0.5mg qHS. 11. NTG 0.4mg SL q5min PRN angina. 12. Stiolto Respimat 2 puffs daily. 13. Omeprazole 20mg daily. 14. Rosuvastatin 5mg daily. 15. Tamsulosin 0.4mg capsule, 2 capsules evenings. PMH: 1. Paroxysmal Atrial Fibrillation, CHADSVASC= 4, with debilitating symptoms failing multiple antiarrhythmic agents with sotalol (bradycardia, hypotension), ranolazine (hypotension), tikosyn (inadequate suppression). 2. Sinus Node dysfunction worsened with meds. 3. CAD LVEF 45%, moderate LAE [2022], blocked D1 not amenable to intervention. 4. COPD with pulmonary fibrosis. 5. JORGE. 6. GERD. 7. Prostate hypertrophy with obstruction. 8. Dyslipidemia. 9. Psoriasis. 10. Chronic right shoulder pain. 11. Spinal stenosis hx laminectomy [2015]. 12. B12 deficiency. 13. herniorrhaphy [1998], appendectomy [194], SHx: Reformed tobacco use, rare alcohol consumption, 2 cups coffee daily. FHx: Mother had COPD, grandparent had CAD. RoS: Positives per HPI, remainder reviewed and negative. PE: 110/60 p68r r20 HT 172cm WT 79.5kg bmi 26.8 HEENT: mucous membranes pink and moist, sclera nonicteric, no ENT exudates. NECK: no jvd, no carotid bruits, no thyroid masses. LUNGS: clear, normal respiratory excursion. COR: nondisplaced apical impulse, Single S1 S2, no S3 or rub. ABD: +bs, soft, nontender, no masses or pulsations. EXT: no edema, pulses 2+ bilaterally. LYMPH: no lymphadenopathy noted. NEURO: oriented to person place time, no gross focal motor deficit. IMPRESSION: 1. Paroxysmal Atrial Fibrillation, CHADSVASC= 4, with debilitating symptoms failing multiple antiarrhythmic agents with sotalol (bradycardia, hypotension), ranolazine (hypotension), tikosyn (inadequate suppression). 2. Sinus Node dysfunction worsened with meds. 3. CAD LVEF 45%, moderate LAE [2022], blocked D1 not amenable to intervention. 4. COPD with pulmonary fibrosis. 5. JOREG. 6. GERD. 7. Prostate hypertrophy with obstruction. 8. Dyslipidemia. 9. Psoriasis. 10. Chronic right shoulder pain. 11. Spinal stenosis hx laminectomy [2014]. 12. B12 deficiency. PLAN: CRYO PVAI ablation. We will perform EPS with 3D mapping (st andrea), transeptal puncture for left atrial access, Intracardiac Echocardiography & Vascular Ultrasound, general anesthesia & iv anticoagulation. Findings reviewed with patient including risks of diagnoses. Proposed procedure and risks explained. Questions answered. He agrees to proceed. Dmitry Mckeon MD, [facility] [[email or web address]], [facility] pager [phone] Future Appointments Appointment Date:04/13/2023 10:45:00 AM Scheduled Provider: Location:[facility] Appointment Type:CV Hospital Follow Up Appointment Date:06/01/2023 01:45:00 PM Scheduled Provider: Location:[facility] Appointment Type:CV OV Future Scheduled Tests Laboratory* Basic Metabolic Panel 04/11/23 * Basic Metabolic Panel 05/29/23 * Basic Metabolic Panel 03/22/23 * Basic Metabolic Panel 08/01/22 * Basic Metabolic Panel 06/30/22 * Basic Metabolic Panel 03/26/22 * Complete Blood Count 04/11/23 * Complete Blood Count 05/29/23 * Complete Blood Count 03/22/23 * Complete Blood Count 06/30/22 * Complete Metabolic Panel 03/19/23 * N-Terminal proBNP 04/11/23 * N-Terminal proBNP 05/29/23 * N-Terminal proBNP 03/22/23 * N-Terminal proBNP 08/01/22 * N-Terminal proBNP 06/30/22 * N-Terminal proBNP 03/26/22 Radiology* NM Bone Imaging Whole Body 11/05/22 * MRI Spine Lumbar w/ + w/o Contrast 12/23/22 [facility] 01-08-2024 NoteSINUS RHYTHM ATRIAL PREMATURE COMPLEXES LEFT AXIS DEVIATION Electronic Signature: ADRIAN LOUIS MD 03/24/2023 14:56:44[facility] 01-08-2024 Anesthesiology Consult note Patient: HIRAM DORAN Age: 82 years Sex: Male : 1940 Associated Diagnoses: None Author: PAULA BELL DO Postoperative Information Post Operative Info: Post op day: Post Anesthesia Care Unit. Patient location: PACU. Assessment Postanesthesia assessment Vitals. Mental status: at preoperative baseline. Respiratory function: respirations are non-labored, Stable. Respiratory support: none. CV function: Stable. Cardiovascular support: none. Pain: Satisfactory. Nausea status: Satisfactory. Postoperative hydration status: within normal limits. Notes: Patient is sufficiently recovered from anesthesia to participate in the evaluation. No follow-up care needed. No complications post-anesthesia.. Pt noted to be hypotensive post opeartively while in the pacu 2nd iv started 50gm of albumin given,32mcglevophed 200mcg of pheynlephrine and 50mg ephedrine all given in divided doses pt blood pressure improved with maps above 80, discussed with surgeon who evaluated pt recommend that patient be transferred to ICU (CCU) for further moniting, (phenylephrine gtt in line ready to start should patient require), stable upon transfer Digitally Signed by PAULA BELL DO on 03/23/2023 01:21 PM [facility] [id number] Note ELECTROPHYSIOLOGY STUDY & ABLATION NOTEPCP: TAWNY LindsayV: Azar Kahn MD Patient: Hiram Doran medical record# [id number] date of Procedure: 03/23/23 PROCEDURE: 1. CRYO Pulmonary Vein Antral Isolation (PVAI) ablation. 2. Electrophysiology Study with 3D mapping (st andrea). 3. Transeptal puncture for left atrial access. 4. Intracardiac Echocardiography & Vascular Ultrasound. 5. General Anesthesia & iv anticoagulation. INDICATION: 1. Paroxysmal Atrial Fibrillation, CHADSVASC= 4 CAAP-AF= 9(69%), with debilitating symptoms. 2. Sinus Node Dysfunction worsened on higher-dose antiarrhythmic agents. 3. CAD LVEF 45% not amenable to intervention. moderate LAE. 4. Comorbid d: COPD with pulmonary fibrosis, JORGE, gerd, prostate CA. Medications: Eliquis, Tikosyn. SUMMARY: 1. Successful CRYO PVAI ablation with exit block all pulmonary veins. 2. Esophagus coursed next to left pulmonary veins, requiring mild titration of energy. Left common pulmonary vein. 3. Presenting rhythm Sinus cl 901ms, pr 215ms, qrs 120ms QT 400ms. 4. Normal Sinus Node function: SNRT 1037ms, cSNRT 136ms. 5. Normal Atrial refractoriness: AERP 600/260. 6. Normal AV Node function: AH 69ms, AVN Wenckebach Anteg/Retrog 350ms. AVNERP 600/<320ms, single AVN physiology. 7. Normal HIS-Purkinje function: HV 55ms. 8. Normal Ventricular refractoriness: VERPrva 600/310, 400/270. 9. An SVT with short R-P interval was induced during mapping, V-pace terminated to sinus. Not reproducible post-ablation. Documentation not found when reviewing records. RECOMMENDATIONS: Bedrest 4 hours with legs still, then may ambulate, Will resume Tikosyn this evening. Resume Eliquis evening 03/24/23. Remove Figure-of-8 sutures/stopcocks in am. Resume prior diet. No lifting over 25 pounds for 48 hours. May shower. No tub bath or pool for 48 hours. Follow up visit 06/01/23 1:45pm. Procedure: The patient was brought to the EP LAB in the fasting well-hydrated state and prepped and draped in the usual sterile fashion. The 3D mapping patches were applied on the thorax prior to draping the patient. General anesthesia was administered by anesthesia personnel present throughout the case, during which time an esophageal thermistor probe was placed for localizing the esophagus and for monitoring temperature during ablation, regularly repositioning the probe to a site closest to the ablationcatheter. Using modified Seldinger technique and Vascular Ultrasound, one biport venous sheath and additionalvenous sheath were placed in the left femoral vein, through which were advanced diagnostic EP catheters to the HIS and RV (and later RA) locations, and an intracardiac echocardiography (ICE) catheterunder fluoroscopic guidance into the right atrium, and a baseline ICE study was performed. Baseline ICE demonstrated normal LA/RA. Left and right ventricular size and function were normal. Mitral, tricuspid, pulmonic, and aortic valve leaflets were grossly normal in appearance with normal exam. There were two left pulmonary veins, and two right pulmonary veins. There was no intracardiac mass or thrombus. There was no pericardial effusion. Subsequently, the ICE catheter was positioned on a plane to demonstrate the intraatrial septum and left pulmonary vein. Using modified Seldinger technique and Vascular Ultrasound, a long guidewire was placed into the right femoral vein up to the the SVC and the patient was administered iv heparin bolus and drip to a goal ACT of 300-400s. Over the guidewire was placed a [employer] steerableTranseptal sheath mounted on a [employer] needle/dilator. The guidewire was withdrawn into the sheath and With the fluoroscopy positioned in the ROMANSH position, the sheath was gradually withdrawn back into the RA until the tip tented against the intraatrial septum as verified by the ICE catheter. Transeptal puncture was performed verified by visualizing in the LA by ICE, as well as by passing the guidewire thru the needle/dilator assembly into the left pulmonary vein. The sheath was advanced while the guidewire and needle/dilator were removed resulting in one transseptal puncture and one sheath exiting in the left atrium. The sheath was carefully flushed and connected to heparinized saline solution. Through that sheath was advanced the [employer] ArcticFront Advance CRYO-balloon and Achieve mapping catheter. An electro-anatomic map The left atrium and pulmonary veins was created. Cryoablation was then performed in a sequential manner starting with the left superior pulmonary vein, left inferior pulmonaryvein, right inferior pulmonary vein, and right superior pulmonary vein. Ablation was performed during real-time analysis of the electrograms. Prior to ablating the right pulmonary veins, the HIS bundle catheter was repositioned in the SVC to pace the phrenic nerve while monitoring diaphragmatic contraction to assure no damage to the phrenic nerve during ablation. Approximately two freezes were performed on each vein. Atrial Fibrillation developed during ablation. DCC returned sinus rhythm. Upon completion of ablation, the mapping catheter was repositioned in each of the veins and pacing was performed to demonstrate exit block. Upon completing ablation and testing, the ablation system and transseptal sheath were removed from the left atrium with the ablation system removed from the body, and the sheath pulled back to the inferior vena cava. The HIS bundle catheter was repositioned, and programmed stimulation was performed starting with ventricular programmed stimulation, then repositioning the RV catheter into the right atrium and performing atrial programmed stimulation. At completion of testing, all catheters were removed from the body. A final ice study was performedand then this catheter was removed. The patient was recovered from anesthesia and administered IV protamine to reverse heparin effect. Local anesthesia with 1% lidocaine was administered to provide anumbing effect in the left and right femoral regions. Figure-of-8 sutures with 2-0 Vicryl were tied around the bilateral groin cath sites secured with stopcocks. The sheaths were pulled once the ACT level dropped below 160 seconds, and pressure was held until adequate hemostasis was obtained. Complications: None. Specimens: None. Estimated blood loss: 10 mL. Contrast: <5mL. Dmitry Mckeon MD, [facility] [[email or web address]], [facility] pager [phone] Digitally Signed by DMITRY MCKEON MD on 03/23/2023 11:37 AM [facility] [id number] Note* Exam Date Time Procedure Performing Provider Status 03/23/23 8:14 AM Ablation Cryo-Ensite - CV Auth (Verified) [facility] 01-08-2024 Anesthesiology Consult note Patient: HIRAM DORAN Age: 82 years Sex: Male : 1940 Associated Diagnoses: None Author: PAULA BELL DO Preoperative Information Time of last food or liquid consumption: 03/23/2023 00:00:00 Anesthesia history Patient's history: negative. Family's history: negative. History of Present Illness Please refer to most recent H and P / daily progress note / consultation note for further details Paroxysmal Atrial Fibrillation CAD LVEF 45%, moderate LAE [2022], blocked D1 not amenable to intervention.COPD with pulmonary fibrosis.JORGE.GERD. HLD psorisis Health Status Allergies: Allergic Reactions (Selected) NKA, Allergies (1) ActiveReaction NKANone Documented Current medications: (Selected) Inpatient Medications Ordered NS 1,000 mL: 20 mL/hr, Intravenous Prescriptions Prescribed Cymbalta 60 mg oral delayed release capsule: 120 mg, 2 cap(s), Oral, qDay, for 90 day(s), 180 cap(s), 3 Refill(s) Jardiance 25 mg oral tablet: 12.5 mg, 0.5 tab(s), Oral, qAM, 45 tab(s), 3 Refill(s) LORazepam 0.5 mg oral tablet: 0.5 mg, 1 tab(s), Oral, qHS, for 90 day(s), 90 tab(s), 0 Refill(s) Tikosyn 250 mcg oral capsule: 250 mcg, 1 cap(s), Oral, q12h, 180 cap(s), 3 Refill(s) Xopenex 0.63 mg/3 mL inhalation solution: 0.63 mg, 3 mL, Nebulized, TID, DC albuterol d/t afib withRVR., 90 EA, 0 Refill(s) budesonide 1 mg/2 mL inhalation suspension: 0.5 mg, 1 mL, Inhalation, BID, for 30 day(s), 60 mL, 11Refill(s) metoprolol succinate 25 mg oral TABLET extended release: 25 mg, 1 tab(s), Oral, qDay, 90 tab(s), 3 Refill(s) nitroglycerin 0.4 mg sublingual tablet: 0.4 mg, 1 tab(s), Sublingual, q5min, PRN: for chest pain, 25 tab(s), 0 Refill(s) rosuvastatin 5 mg oral tablet: 5 mg, 1 tab(s), Oral, Daily, for 90 day(s), 90 tab(s), 3 Refill(s) Documented Medications Documented Eliquis 5 mg oral tablet: 5 mg, 1 tab(s), Oral, BID, 0 Refill(s) Mucinex 600 mg oral tablet, extended release: 600 mg, 1 tab(s), Oral, q12h, 0 Refill(s) PriLOSEC OTC 20 mg oral delayed release tablet: 20 mg, 1 tab(s), Oral, qDayAC, 0 Refill(s) Stiolto Respimat 60 ACT 2.5 mcg-2.5 mcg/inh inhalation aerosol: 2 puff(s), Inhalation, qDay, 1 EA, 0 Refill(s) Vitamin B12: See Instructions, 0 Refill(s) Vitamin D3: qDay, 0 Refill(s) finasteride 1 mg oral tablet: 1 mg, 1 tab(s), Oral, qDay, 30 tab(s), 0 Refill(s) tamsulosin 0.4 mg oral capsule: 0.8 mg, 2 cap(s), qDay, 0 Refill(s), Medications (1) Active Scheduled: (0) Continuous: (1) NS (0.9% nacl) 1,000 mL 1,000 mL, Intravenous, 20 mL/hr PRN: (0) Problem list: Medical Acid reflux / SNOMED CT 5806408947 / Confirmed COPD exacerbation / SNOMED CT 742740475 / Confirmed Acute sinusitis / SNOMED CT 60405576 / Confirmed Mild anemia / SNOMED CT 193381343 / Confirmed Arthritis / SNOMED CT 9720102 / Confirmed Asbestosis / SNOMED CT 70294842 / Confirmed Atrial fibrillation / SNOMED CT 85177995 / Confirmed Atrial fibrillation / SNOMED CT 10337451 / Confirmed Upper back pain on right side / SNOMED CT 635247020 / Confirmed Back pain / SNOMED CT 596292375 / Confirmed Upper back pain / SNOMED CT 212760691 / Confirmed BPH with urinary obstruction / SNOMED CT 2845723824 / Confirmed Shoulder bursitis / SNOMED CT 089821129 / Confirmed Oral thrush / SNOMED CT 759688676 / Confirmed Chronic bronchitis / SNOMED CT 149229982 / Confirmed Chronic insomnia / SNOMED CT 1354058153 / Confirmed Chronic low back pain / SNOMED CT 444218989 / Confirmed Chronic neck pain / SNOMED CT 7397613444 / Confirmed Vitamin B12 deficiency / SNOMED CT 080661739 / Confirmed Constipation / SNOMED CT 88751003 / Confirmed COPD (chronic obstructive pulmonary disease) / SNOMED CT [id number] / Confirmed CAD LVEF 45%, mod LAE [2023] / SNOMED CT 81450612 / Confirmed Cough / SNOMED CT 59838356 / Confirmed Depression / SNOMED CT 49810670 / Confirmed Diarrhea / SNOMED CT 579088387 / Confirmed Herniation of intervertebral disc of lumbosacral region / SNOMED CT 9458226826 / Confirmed Shortness of breath / SNOMED CT 158228138 / Confirmed Shortness of breath on exertion / SNOMED CT 965735656 / Confirmed Enlarged prostate / SNOMED CT 215855940 / Confirmed Essential hypertension / SNOMED CT 99437886 / Confirmed Fatigue / SNOMED CT 882307675 / Confirmed GERD (gastroesophageal reflux disease) / SNOMED CT 685248258 / Confirmed Glasses / SNOMED CT 5345224634 / Confirmed (HFpEF) heart failure with preserved ejection fraction / SNOMED CT 9801875011 / Confirmed Chronic hip pain / SNOMED CT 09957492 / Confirmed Left hip pain / SNOMED CT 16762014 / Confirmed Hypercholesterolemia / SNOMED CT 55200175 / Confirmed Hypoxia / SNOMED CT 1262572173 / Confirmed Elevated glucose / SNOMED CT 645897151 / Confirmed Insomnia / SNOMED CT 894728476 / Confirmed LABYRINTHINE DYSFUNCTION / SNOMED CT 5268156 / Confirmed Low back pain / SNOMED CT 758915998 / Confirmed Low back pain / SNOMED CT 643285670 / Confirmed Hypotension / SNOMED CT 073204268 / Confirmed Lumbar nerve root injury inpingement / SNOMED CT 3708474064 / Confirmed Lumbosacral radiculitis / SNOMED CT 54042777 / Confirmed Lumbosacral radiculopathy / SNOMED CT 8091094 / Confirmed Major depressive disorder / SNOMED CT 2686825814 / Confirmed Mixed hyperlipidemia / SNOMED CT 955800280 / Confirmed Muscle spasms of neck / SNOMED CT 7226859938 / Confirmed Muscle weakness / SNOMED CT 39299203 / Confirmed Lower extremity weakness / SNOMED CT 2242116430 / Confirmed JORGE (obstructive sleep apnea) / SNOMED CT 737127930 / Confirmed Osteoarthrosis / SNOMED CT 8301269894 / Confirmed Paroxysmal atrial fibrillation / SNOMED CT 867117260 / Confirmed Left buttock pain / SNOMED CT 087975143 / Confirmed Palpitations / SNOMED CT 484039504 / Confirmed Paroxysmal atrial fibrillation / SNOMED CT 217291864 / Confirmed Persistent cough / SNOMED CT 511016624 / Confirmed Psoriasis / SNOMED CT 48905457 / Confirmed Need for vaccination / SNOMED CT 9069297156 / Confirmed Right shoulder pain / SNOMED CT 35883256 / Confirmed Sinus node dysfunction / SNOMED CT 267853482 / Confirmed Spinal stenosis / SNOMED CT 514807833 / Confirmed Urinary incontinence / SNOMED CT 1756394996 / Confirmed Wheezing / SNOMED CT 39280228 / Confirmed, Active Problems (68) (HFpEF) heart failure with preserved ejection fraction Acid reflux Acute sinusitis Anxiety Arthritis Asbestosis Atrial fibrillation Atrial fibrillation Back pain BPH with urinary obstruction CAD LVEF 45%, mod LAE [2022] Chronic bronchitis Chronic hip pain Chronic insomnia Chronic low back pain Chronic neck pain Constipation COPD (chronic obstructive pulmonary disease) COPD exacerbation Cough Depression Diarrhea Elevated glucose Enlarged prostate Essential hypertension Fatigue GERD (gastroesophageal reflux disease) Glasses Herniation of intervertebral disc of lumbosacral region Hypercholesterolemia Hypotension Hypoxia Insomnia LABYRINTHINE DYSFUNCTION Left buttock pain Left hip pain Low back pain Low back pain Lower extremity weakness Lumbar nerve root injury inpingement Lumbosacral radiculitis Lumbosacral radiculopathy Lung abscess Major depressive disorder Mild anemia Mixed hyperlipidemia Muscle spasms of neck Muscle weakness Need for vaccination Oral thrush JORGE (obstructive sleep apnea) Osteoarthrosis Palpitations Paroxysmal atrial fibrillation Paroxysmal atrial fibrillation Persistent cough Psoriasis Right shoulder pain Shortness of breath Shortness of breath on exertion Shoulder bursitis Sinus node dysfunction Spinal stenosis Upper back pain Upper back pain on right side Urinary incontinence Vitamin B12 deficiency Wheezing Histories Past Medical History: Active Hypercholesterolemia (77197975) COPD (chronic obstructive pulmonary disease) ([id number]) Enlarged prostate (313432522) Acid reflux (5602174344) Muscle weakness (69684850) Arthritis (4874507) Spinal stenosis (294295308) Glasses (7927768478) Psoriasis (21141608) Family History: Emphysema of lung Mother () Coronary artery disease Grandparent COPD Mother () Procedure history: Echocardiogram ([id number]) on 12/16/2022 at 82 Years. Comments: 01/08/2023 12:43 Tawny Barber MA (ABR-OE) 1. Left ventricle: The cavity size is normal. Wall thickness is normal. Systolic function is mildlyreduced. The estimated ejection fraction is 45%. There is mild diffuse hypokinesis. Regional wall motion abnormalities cannot be excluded. Grade II diastolic dysfunction. Accuracy of LV function estimate limited due to varying RR intervaland foreshortening. 2. Mitral valve: The annulus is mildly calcified. There is mild regurgitation. 3. Left atrium: The atrium is mildly to moderately dilated. 4. Right ventricle: The RV systolic pressure by Doppler is 42 mm Hg. 5. Right atrium: Mobile echodensity in RA. Differential include prominent eustachian valve vs. catheter tip. Suspicion for mass low. The estimated right atrial pressure is 8 mm Hg. 6. Atrial septum: There is redundancy of the septum, with borderline criteria for aneurysm. 7. Pericardium, extracardiac: A prominent pericardial fat pad is present. A trivial pericardial effusion is identified. Holter monitor ([id number]) on 04/04/2022 at 81 Years. Comments: 05/22/2022 15:38 Tawny White MA (ABR-OE) 30 DAY 1. Predominant rhythm was sinus with average heart rate 68 bpm and the range 50 bpm to 120 bpm. 2. Patient had total 7 minutes of atrial fibrillation-flutter with longest run 6 minutes. 3. Patient symptoms of CP, skipped beats, heart racing, dizzy and lightheaded did not correlate with any significant arrhythmia as noted above.3 Echocardiogram ([id number]) on 03/10/2022 at 81 Years. Comments: 03/31/2022 15:43 Tawny White MA (ABR-OE) 1. Left ventricle: The cavity size is normal. Wall thickness is normal. Systolic function is mildlyreduced. The estimated ejection fraction is 45%. There is mild diffuse hypokinesis. Grade I diastolic dysfunction. 2. Mitral valve: The annulus is mildly calcified. 3. Right ventricle: The RV systolic pressure by Doppler is 19 mm Hg. 4. Right atrium: The estimated right atrial pressure is 3 mm Hg. 5. Pericardium, extracardiac: A prominent pericardial fat pad is present Echocardiogram ([id number]) on 10/11/2021 at 81 Years. Comments: 03/05/2022 14:58 Tawny White MA (ABR-OE) 1. Left ventricle: The cavity size is normal. Wall thickness is normal. Systolic function is normal. The estimated ejection fraction is 55-60%. Wall motion is normal; there are no regional wall motion abnormalities. Unable to assess diastolic function. 2. Mitral valve: The annulus is moderately calcified. The leaflets are mildly thickened. 3. Right ventricle: The cavity size is mildly increased. The RV systolic pressure by Doppler is 37 mm Hg. 4. Right atrium: The atrium is dilated. The estimated right atrial pressure is [address] of thorax ([id number]) on 10/11/2021 at 81 Years. Comments: 03/05/2022 14:58 Tawny White MA (ABR-OE) Findings are most compatible with interstitial pulmonary fibrosis greatest at the posterior lower lobes, with mild bronchiectasis. Mild bronchial wall thickening suggest an element of chronic bronchitis. No definite acute abnormality seen. Mildly prominent pulmonary artery which may be seen with pulmonary hypertension. Cardiac catheterization ([id number]) on 05/27/2021 at 80 Years. Comments: 03/05/2022 15:05 Tawny White MA (ABR-OE) Severe disease involving the first large diagonal branch and mild to moderate disease nvolving the other vessels Cardiovascular stress testing ([id number]) on 05/20/2021 at 80 Years. Comments: 03/05/2022 15:00 Tawny White MA (ABR-OE) 1. Reversible defect in the anterolateral and inferior wall suggesting ischemia in this area. 2. Normal ejection fraction of 61% with normal wall motion. 3. Compared to the prior study the reversible defects are new. 1. EKG portion of Lexiscan stress test is negative for inducible ischemia Stress echocardiography ([id number]) on 08/04/2018 at 77 Years. Echocardiogram ([id number]) on 08/02/2018 at 77 Years. Comments: 03/05/2022 14:43 Tawny White MA (ABR-OE) EF 65% Echocardiogram ([id number]) on 03/18/2017 at 76 Years. Comments: 03/05/2022 14:57 Tawny White MA (ABR-OE) Left ventricle: The cavity size is normal. Wall thickness is normal. Systolic function is normal. The estimated ejectionfraction is 55-60%. Wall motion is normal; there are no regional wall motion abnormalities. Cardiovascular stress testing ([id number]) on 02/24/2017 at 76 Years. Comments: 03/05/2022 14:56 Tawny White MA (ABR-OE) 1. Negative Lexiscan EKG stress test for ischemia. 2. Normal physiological response to Lexiscan. 3. Occasional PVCs and PACs noted 1. No evidence of inducible ischemia 2. Moderate area of fixed defect involving the inferior, inferoseptal and inferolateral wall suggestive of prior myocardial infarction. 3. Mild hypokinesis of the inferior wall with normal systolic function, LVEF 61%. Laminectomy ([id number]) on 06/01/2014 at 73 Years. Comments: 08/23/2018 13:17 [facility] - Camelia Peñaloza LPN lumbar Colonoscopy ([id number]) on 12/23/2012 at 72 Years. Comments: 09/27/2018 9:48 [facility] - Vivien Pena LPN, Dr., repeat 5 years Hernia repair ([id number]) in 1998 at 58 Years. Comments: 05/25/2014 14:38 PANCHO Frey X 2 ORIF - Open reduction and internal fixation of fracture ([id number]) in 1980 at 40 Years. Comments: 05/25/2014 14:39 PANCHO Frey RIGHT Appendectomy ([id number]) in 1944 at 3 Years. Appendectomy ([id number]). Hernia ([id number]). Comments: 10/26/2018 18:10 PANCHO Dan right inguinal x 2 Hemorrhoidectomy ([id number]). 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 Physical Examination Vital Signs 03/23/2023 5:51 EST Temperature Temporal Artery 36.7 DegC Peripheral Pulse Rate 79 bpm Respiratory Rate 18 br/min Systolic Blood Pressure Non-Invasive 110 mmHg Diastolic Blood Pressure Non-Invasive 71 mmHg Vital Signs(last 24 hrs) Last Charted Resp Rate 18 br/min (MAR 23 05:51) UEI317 mmHg (MAR 23 05:51) DBP71 mmHg (MAR 23 05:51) Measurements from flowsheet : Measurements 03/23/2023 5:51 EST Height 172.7 cm Weight Method Actual Current Weight 80.4 kg Laurel Body Weight 68.38 kg Type of Scale Used Standing Pain assessment: Pain Assessment 03/23/2023 5:51 EST Primary Pain Intensity 0 Pain Scale Type 0-10 Pain scale . General: Alert and oriented. Airway: Mallampati classification: III (soft palate, base of uvula visible). Dentition Evaluation: Missing teeth, Dentures, upper. Respiratory: Respirations are non-labored. Neurologic: Alert, Oriented. Review / Management Results review: Labs (Last four charted values) WBC 9.0(MAR 23) Hgb L 12.7(MAR 23) Hct L 37.4(MAR 23) Plt 211(MAR 23) PT H 15.2(MAR 23) INR 1.3(MAR 23) , Lab results 03/23/2023 7:03 EST IHC At-Risk Indicator YES 03/23/2023 6:16 EST Electrocardiogram - EKG - CV Completed (In Progress) 03/23/2023 6:15 EST SN - Preop - CTm - Pt in HL SD Room 03/23/2023 5:30 SN - Preop - CTm - HL Pt Ready for Procedure 03/23/2023 6:15 03/23/2023 6:13 EST Antecubital Left 03/23/2023 20 gauge Peripheral IV Activity: Insert new site Peripheral IV Dressing Condition: Clean, Dry, Intact Peripheral IV Dressing Activity: Applied, Transparent dressing Peripheral IV Line Status/Patency: Flushes easily, Good blood return Peripheral IV Line Care: Secured with tape Peripheral IV Site Condition: No complications Peripheral IV Equipment: PRN Adaptor Peripheral IV Number of Attempts: 1 03/23/2023 6:12 EST WBC 9.0 10^3/mcL RBC 3.97 10^6/mcL LOW Hgb 12.7 G/dL LOW Hct 37.4 % LOW MCV 94.4 fL MCH 32.0 pg MCHC 33.9 G/dL RDW 14.1 % Platelet 211 10^3/mcL MPV 7.6 fL Neutrophil % 77.5 % HI Lymphocyte % 10.8 % LOW Monocyte % 8.9 % Eosinophil % 1.9 % Basophil % 0.9 % Neutrophil, Absolute 7.0 10^3/mcL Lymphocyte, Absolute 1.0 10^3/mcL Monocyte, Absolute 0.8 10^3/mcL Eosinophil, Absolute 0.2 10^3/mcL Basophil, Absolute 0.1 10^3/mcL Protime 15.2 seconds HI PT International Ratio 1.3 ratio NA 03/23/2023 5:52 EST Designated Person #1 We May Share PHI Lala Fay [phone] Designated Person #1 Relationship Daughter Designated Person #2 We May Share PHI Mili Chong [phone] Designated Person #2 Relationship Daughter Additional Designated Person Share PHI Vivi Oro [phone] Daughter Privacy Restrictions Requested None Status N/A Sensory Deficits Hearing deficit, left ear, Hearing deficit, right ear Diagnosed With Sleep Apnea Yes Advanced Directives Yes (Modified) Advance Directive Type [place] Durable Power [place] Declaration (Living Will) Advance Directive Location Patient instructed to bring in copy Infectious Disease Symptoms Patient states no symptoms Infectious Disease Recent Exposure No Alcohol and Drug Use No Employee of Institutional Living No Health Care Employee No History of Exposure to TB No History of Positive Chest X-Ray for TB No History of Positive TB Skin Test No Homeless No Known Immunosuppression No Recent Immigrant No Resident of Institutional Living No Bloody Sputum No Fatigue No Fever No Loss of Appetite No Night Sweats No Persistent Cough > 3 Weeks No Weight Loss No Barriers to Learning None evident Teaching Method Explanation, Printed materials, Teach-back Preferred Spoken Language Polish Preferred Written Language Polish Teaching Evaluation Verbalizes/Nonverbally indicates understanding Safety Brochure Information Reviewed Yes Alison Bray Video Viewed Patient refused Information Given by Patient Patient's Current Physicians Patient's Current Physicians Discharge To, Anticipated Home independently Prev Test Positive/Diagnosis w/COVID-19 No Current Quarantine/Isolated any Illness No Any Contact with Sick Animals/Birds No Traveled Anywhere in Last 30 Days No Lost Weight Unintentionally Recently No Eat Poorly Due to Decreased Appetite No Total MST Score 0 N/A Personal Devices, Patient Valuables Dentures, upper, Glasses Anesthesia/Transfusions Prior anesthesia Admission Note-Nursing Same Day Patient History (Modified) 03/23/2023 5:51 EST Height 172.7 cm Weight Method Actual Current Weight 80.4 kg Laurel Body Weight 68.38 kg Type of Scale Used Standing Temperature Temporal Artery 36.7 DegC Peripheral Pulse Rate 79 bpm Respiratory Rate 18 br/min Systolic Blood Pressure Non-Invasive 110 mmHg Diastolic Blood Pressure Non-Invasive 71 mmHg Primary Pain Intensity 0 Pain Scale Type 0-10 Pain scale Cardiovascular Symptoms Edema, Fatigue, Palpitations Respiratory Symptoms Difficulty breathing with activity Respirations Unlabored Respiratory Pattern Regular Breath Sounds Auscultated Anterior and posterior All Lobes Breath Sounds Diminished Cough Non-Productive, Occasional Oxygen Therapy Room air Oxygen Saturation 94 % Bowel Level of Assistance Complete I Bladder Level of Assistance Complete I Skin Temperature Warm Skin Description Normal for ethnicity, Dry Skin Integrity Intact Neurological Symptoms Patient denies Extremity Movement Equal Characteristics of Speech Clear Level of Consciousness Alert Strength All Extremities Strong Tone All Extremities Normal Sensation All Extremities Intact Affect/Behavior Appropriate, Calm, Cooperative Orientation Oriented x 4, Follows simple commands Orientation Assessment Oriented x 4 Assistive Device Cane, Wheelchair Positioning Repositions self Mobility Assistance Level Minimum assistance Standard Safety ID band on, Call device within reach, Bed in low position, Wheels locked, Upper/Half-Length side-rails up, Phone within reach, personal items within reach, Assistive devices within reach, Safety level maintained, Non-Slip footwear Demonstrates Correct Call Light Use Yes 03/23/2023 5:50 EST IV Present Present Consent Form Signed Yes Patient Dressed In Hospital gown Belongings At Bedside Dentures, upper, Glasses, Pants, Shirt, Shoes, Socks, Undergarments, Wallet, Wedding band (Modified) NPO Status Maintained Patient ID Band on and Verified Yes Last Fluid Intake 03/22/2023 21:00 Last Food Intake 03/22/2023 21:00 03/23/2023 5:49 EST IHC At-Risk Indicator YES 03/22/2023 12:51 EST IHC At-Risk Indicator YES 03/22/2023 12:24 EST IHC At-Risk Indicator YES 03/22/2023 9:46 EST History and Physical (Blank) H&P 03/23/23 03/22/2023 9:45 EST IHC At-Risk Indicator YES . Assessment and Plan [place] [employer] (ASA) physical status classification: Class III. Anesthetic Preoperative Plan Anesthetic technique: General. Induction: intravenously. Maintenance airway: Oral endotracheal tube. Special Monitoring: Arterial line. Postoperative pain management: Per surgeon. Risks discussed: nausea, vomiting, headache, sore throat, dental injury, hypotension, allergic reaction, serious complications. Informed consent: signed by patient. Notes: Extensive time was spent discussing with the patient and/or POA the inherent risks of anesthesia including but not limited too sore throat, dental injuries to teeth and gums, corneal abrasions, risk of heart attack, stroke, end organ dysfunction, and . The patient and/or POA is aware ofthese risks, accepts them and wishes to proceed with anesthesia. Paroxysmal Atrial Fibrillation CADLVEF 45%, moderate LAE [2023], blocked D1 not amenable to intervention.COPD with pulmonary fibrosis.JORGE.GERD. HLD psorisis. Digitally Signed by PAULA BELL DO on 03/23/2023 08:14 AM [id number] NoteSINUS OR ECTOPIC ATRIAL RHYTHM SINUS PAUSE LEFT ANTERIOR FASCICULAR BLOCK Electronic Signature: ADRIAN LOUIS MD 03/24/2023 14:56:33[facility] 01-07-[facility]24 History and physical note HISTORY & PHYSICALPCP: TAWNY LindsayV: Azar Kahn MD Patient: Hiram Doran medical record# [id number] date of Admission: 03/23/23 CC: Atrial Fibrillation. HPI: 82 yr old patient presenting for [facility] Pulmonary Vein Antral Isolation (PVAI) ablation for Paroxysmal Atrial Fibrillation, CHADSVASC= 4, with symptoms of dyspnea, chest pain, and fatigue. He has sinusnode dysfunction worsened on meds, hypotension on ranolazine. Inadequate relief of symptoms of Tikosyn. He has CAD not amenable to intervention. ALLERGIES: NKDA. HOME MEDICATIONS: 1. Eliquis 5mg BID, last dose 24 hours prior to procedure. 2. Tikosyn 250mcg q12hr. 3. Budesonide inhaler BID. 4. Vitamin D3 daily. 5. Vitamin B12. 6. Duloxetine 60mg capsule, 2 capsules daily. 7. Jardiance 25mg tablet, 1/2 tablet daily. 8. Guaifenesin 1 tablet q12hr. 9. Xopenex inhaler TID. 10. Lorazepam 0.5mg qHS. 11. NTG 0.4mg SL q5min PRN angina. 12. Stiolto Respimat 2 puffs daily. 13. Omeprazole 20mg daily. 14. Rosuvastatin 5mg daily. 15. Tamsulosin 0.4mg capsule, 2 capsules evenings. PMH: 1. Paroxysmal Atrial Fibrillation, CHADSVASC= 4, with debilitating symptoms failing multiple antiarrhythmic agents with sotalol (bradycardia, hypotension), ranolazine (hypotension), tikosyn (inadequate suppression). 2. Sinus Node dysfunction worsened with meds. 3. CAD LVEF 45%, moderate LAE [202], blocked D1 not amenable to intervention. 4. COPD with pulmonary fibrosis. 5. JORGE. 6. GERD. 7. Prostate hypertrophy with obstruction. 8. Dyslipidemia. 9. Psoriasis. 10. Chronic right shoulder pain. 11. Spinal stenosis hx laminectomy [2014]. 12. B12 deficiency. 13. herniorrhaphy [1998], appendectomy [194], SHx: Reformed tobacco use, rare alcohol consumption, 2 cups coffee daily. FHx: Mother had COPD, grandparent had CAD. RoS: Positives per HPI, remainder reviewed and negative. PE: 110/60 p68r r20 HT 172cm WT 79.5kg bmi 26.8 HEENT: mucous membranes pink and moist, sclera nonicteric, no ENT exudates. NECK: no jvd, no carotid bruits, no thyroid masses. LUNGS: clear, normal respiratory excursion. COR: nondisplaced apical impulse, Single S1 S2, no S3 or rub. ABD: +bs, soft, nontender, no masses or pulsations. EXT: no edema, pulses 2+ bilaterally. LYMPH: no lymphadenopathy noted. NEURO: oriented to person place time, no gross focal motor deficit. IMPRESSION: 1. Paroxysmal Atrial Fibrillation, CHADSVASC= 4, with debilitating symptoms failing multiple antiarrhythmic agents with sotalol (bradycardia, hypotension), ranolazine (hypotension), tikosyn (inadequate suppression). 2. Sinus Node dysfunction worsened with meds. 3. CAD LVEF 45%, moderate LAE [2023], blocked D1 not amenable to intervention. 4. COPD with pulmonary fibrosis. 5. JORGE. 6. GERD. 7. Prostate hypertrophy with obstruction. 8. Dyslipidemia. 9. Psoriasis. 10. Chronic right shoulder pain. 11. Spinal stenosis hx laminectomy [2015]. 12. B12 deficiency. PLAN: [facility]O PVAI ablation. We will perform EPS with 3D mapping (st andrea), transeptal puncture for left atrial access, Intracardiac Echocardiography & Vascular Ultrasound, general anesthesia & iv anticoagulation. Findings reviewed with patient including risks of diagnoses. Proposed procedure and risks explained. Questions answered. He agrees to proceed. Dmitry Mckeon MD, [facility] [[email or web address]], [facility] pager [phone] Digitally Signed by DMITRY MCKEON MD on 03/22/2023 10:14 AM [facility] [id number] Note ORIGINAL EXAMINATION: ONE XRAY VIEW OF THE CHEST 02/11/2023 6:09 am COMPARISON: 01/06/2023. HISTORY: ORDERING SYSTEM PROVIDED HISTORY: Reason for Exam: tachycardia FINDINGS: Patient is rotated to left. Normal cardiomediastinal silhouette. No large pleural effusion or pneumothorax. No focal consolidation. Similar appearing linear consolidative opacity at the left lung base. Bibasilar reticular interstitial opacities. No acute osseous findings. IMPRESSION: Linear consolidative opacity at the left lung base in keeping with subsegmental atelectasis. Unchanged bibasilar reticular opacities, likely subsegmental atelectasis or pleuroparenchymal scarring. No other acute process is identified. Preliminary Report was Dictated by a Resident Interpreted by: Jesse Batista MD Preliminary Report By: Sky Torres Electronically signed By Jesse Batista MD Dictated Date: 02/11/2023 6:12:49 AM Prelim Date: 02/11/2023 6:17:32 AM Sign Date: 02/11/2023 6:35:34 AM [facility]ing [facility] NoteSupraventricular tachycardia Multiform ventricular premature complexes Left anterior fascicular block Abnormal R-wave progression, late transition Compared to ECG at 12/16/2022 09:58:14 BORDERLINE ECG Electronic Signature: ISAAK HAYNES DO 02/11/2023 00:00:50[facility] 10-04-2023 Hospital Discharge instructions Patient Education 12/17/2022 14:06:19 Atrial Fibrillation, Tdzp-[id number] Atrial Fibrillation Atrial fibrillation is a type of heartbeat that is irregular or fast (rapid). If you have this condition, your heart beats without any order. This makes it hard for your heart to pump blood in a normal way. Having this condition gives you more risk for stroke, heart failure, and other heart problems. Atrial fibrillation may start all of a sudden and then stop on its own, or it may become a long-lasting problem. What are the causes? This condition may be caused by heart conditions, such as: High blood pressure. Heart failure. Heart valve disease. Heart surgery. Other causes include: Pneumonia. Obstructive sleep apnea. Lung cancer. Thyroid disease. Drinking too much alcohol. Sometimes the cause is not known. What increases the risk? You are more likely to develop this condition if: You smoke. You are older. You have diabetes. You are overweight. You have a family history of this condition. You exercise often and hard. What are the signs or symptoms? Common symptoms of this condition include: A feeling like your heart is beating very fast. Chest pain. Feeling short of breath. Feeling light-headed or weak. Getting tired easily. Follow these instructions at home: Medicines Take jpdh-suy-dauixwi and prescription medicines only as told by your doctor. If your doctor gives you a blood-thinning medicine, take it exactly as told. Taking too much of it can cause bleeding. Taking too little of it does not protect you against clots. Clots can cause a stroke. Lifestyle Do not use any tobacco products. These include cigarettes, chewing tobacco, and e-cigarettes. If you need help quitting, ask your doctor. Do not drink alcohol. Do not drink beverages that have caffeine. These include coffee, soda, and tea. Follow diet instructions as told by your doctor. Exercise regularly as told by your doctor. General instructions If you have a condition that causes breathing to stop for a short period of time (apnea), treat it as told by your doctor. Keep a healthy weight. Do not use diet pills unless your doctor says they are safe for you. Diet pills may make heart problems worse. Keep all follow-up visits as told by your doctor. This is important. Contact a doctor if: You notice a change in the speed, rhythm, or strength of your heartbeat. You are taking a blood-thinning medicine and you see more bruising. You get tired more easily when you move or exercise. You have a sudden change in weight. Get help right away if: You have pain in your chest or your belly (abdomen). You have trouble breathing. You have blood in your vomit, poop, or pee (urine). You have any signs of a stroke. BE FAST is an easy way to remember the main warning signs: ?B - Balance. Signs are dizziness, sudden trouble walking, or loss of balance. ?E - Eyes. Signs are trouble seeing or a change in how you see. ?F - Face. Signs are sudden weakness or loss of feeling in the face, or the face or eyelid droopingon one side. ?A - Arms. Signs are weakness or loss of feeling in an arm. This happens suddenly and usually on one side of the body. ?S - Speech. Signs are sudden trouble speaking, slurred speech, or trouble understanding what people say. ?T - Time. Time to call emergency services. Write down what time symptoms started. You have other signs of a stroke, such as: ?A sudden, very bad headache with no known cause. ?Feeling sick to your stomach (nausea). ?Throwing up (vomiting). ?Jerky movements you cannot control (seizure). These symptoms may be an emergency. Do not wait to see if the symptoms will go away. Get medical help right away. Call your local emergency services (911 in the [place] Do not drive yourself to the hospital. Summary Atrial fibrillation is a type of heartbeat that is irregular or fast (rapid). You are at higher risk of this condition if you smoke, are older, have diabetes, or are overweight. Follow your doctor's instructions about medicines, diet, exercise, and follow-up visits. Get help right away if you think that you have signs of a stroke. This information is not intended to replace advice given to you by your health care provider. Make sure you discuss any questions you have with your health care provider. Document Released: 12/09/2008 Document Revised: 05/06/2018 Document Reviewed: 04/23/2018 [employer] Patient Education 2020 [employer]. Follow Up Care 12/13/2022 14:53:44 With:MALISSA RASCON MD Address: [address] [place] [address]- When:12/19/2022 09:30:00 Comments:This appointment can serve as your post-hospital follow-up appointment. With:NIKO MARTÍNEZ Address: [address] [place] [address] [address] [place] [address]- When:12/25/2022 13:15:00 Comments:This is your post-hospital cardiology appointment. [facility] 10-04-2023 Note Discharge Instructions Thank you for allowing [facility] to assist you with your healthcare needs. The following is importantdischarge information regarding your hospital visit. Your Care Team Vivien Martínez APRN Your Diagnosis (HFpEF) heart failure with preserved ejection fraction Atrial fibrillation, Atrial fibrillation with RVR Back pain BPH associated with nocturia CAD in ak chin artery Chronic insomnia COPD (chronic obstructive pulmonary disease) Essential hypertension Heart rate fast JORGE (obstructive sleep apnea), JORGE on CPAP Right shoulder pain What to do next Scheduled Follow-Up Appointments Appointment Type When With Where Contact InformationPC OV 12/19/2022 09:30 AM EDT MALISSA RASCON MD [address] [phone] MRI Spine Lumbar w/o Contrast 12/23/2022 02:30 PM EDT [facility] [phone] CV OV Hospital Follow Up 12/25/2022 01:15 PM EDT NIKO MARTÍNEZ [facility] CV CV OV 01/09/2023 01:00 PM EDT [facility] Follow Up Appointments Follow Up with NIKO MARTÍNEZ When 12/25/2022 01:15 PM EDT Why: This is your post-hospital cardiology appointment. Where: [address] [place] [address] [address] [place] [address]- Follow Up with MALISSA RASCON MD When 12/19/2022 09:30 AM EDT Why: This appointment can serve as your post-hospital follow-up appointment. Where: [facility] [place] [address]- The Following Activity and Diet Have Been Ordered for You Discharge Activity - Ordered -- Resume your pre-hospitalization activity, 12/17/22 13:42:00 EDT Discharge Diet - Ordered -- No changes were made to your diet during your hospital stay. Please resume your pre hospitalization diet on discharge., 12/17/22 13:42:00 EDT The Following Treatments Have Been Ordered for You Discharge Labs Discharge Outpatient Labwork - Ordered -- BMP. Digoxin level, New med monitoring, Your appointment is: 12/23/22 8:00:00 EDT, Results Notify to: NIKO MARTÍNEZ APRN-ALY, 12/17/22 13:49:00 EDT Discharge Radiology No qualifying data available. Other Therapies No qualifying data available. Post Acute Orders No qualifying data available. Allergies NKA Medications Please ask your primary doctor or pharmacist before taking any other medication not listed, including over the counter drugs, herbal medications, vitamins and or supplements as they may interact withyour home medications. What How Much When Why Instructions Last Dose New digoxin (digoxin 125 mcg (0.125 mg) oral tablet) 1 tab(s) by mouth Once a day Pickup at [facility]/pharmacy #[id number] 12/17/22 at 0945am New levalbuterol (Xopenex 0.63 mg/ 3 mL inhalation solution) 3 Milliliter Nebulized inhalation Three (3) times a day DC albuterol d/ t afib with RVR. Pickup at [facility]/pharmacy #[id number] none today New sotalol (sotalol 80 mg oral tablet) 0.5 tab(s) by mouth Two (2) times a day Pickup at [facility]/pharmacy #[id number] 12/17/22 at 0851am Changed cimetidine (Tagamet HB 200 mg oral tablet (NF)) 1 tab(s) As needed for Heartburn none Changed olodaterol-tiotropium (Stiolto Respimat 60 ACT 2.5 mcg-2.5 mcg/ inh inhalation aerosol) 2 puff(s) by inhalation Once a day none Unchanged apixaban (Eliquis 5 mg oral tablet) 1 tab(s) by mouth Two (2) times a day 12/17/22 at 0851am Unchanged budesonide (budesonide 1 mg/ 2 mL inhalation suspension) 1 Milliliter by inhalation Two (2) times a day Duration: 30 Days none Unchanged cholecalciferol (Vitamin D3) Once a day none Unchanged cyanocobalamin (Vitamin B12) none Unchanged DULoxetine (Cymbalta 60 mg oral delayed release capsule) 2 cap by mouth Once a day Right shoulder pain Back pain Duration: 90 Days one time refill in lieu of PCP 12/17/22 at 0851am Unchanged guaiFENesin (Mucinex 600 mg oral tablet, extended release) 1 tab(s) by mouth Every 12 hours 12/17/22 at 851am Unchanged LORazepam (LORazepam 0.5 mg oral tablet) 1 tab(s) by mouth Daily at bedtime Chronic insomnia Duration: 90 Days none today Unchanged nitroGLYcerin (nitroglycerin 0.4 mg sublingual tablet) 1 tab(s) under the tongue Every 5 minutes as needed for for chest pain Angina pectoris, 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 none Unchanged rosuvastatin (rosuvastatin 5 mg oral tablet) 1 tab(s) by mouth Every day none today Unchanged tamsulosin (Flomax 0.4 mg oral capsule) 2 cap by mouth Daily at bedtime BPH associated with nocturia Duration: 90 Days none today Pharmacy Information [facility]/pharmacy #[id number]: [address], [place] [id number] [phone] What How Much When Comments Stop Taking albuterol (albuterol 5 mg/ mL (0.5%) inhalation solution) 0.5 Milliliter by inhalation Four (4) times a day 0.5 ML ADDED TO NEBULIZER WITH BUDESONIDE 4 TIMES A DAY Stop Taking carvedilol (carvedilol 6.25 mg oral tablet) 1 tab(s) by mouth Two (2) times a day Duration: 30 Days Please take this list to your next doctor s visit. Bring all medications you take, including over the counter medications, herbals and other supplements with you to your doctor s visit. Patients and families are reminded to discard old lists and to update any records with all medication providers or retail pharmacies. Medication Leaflets sotalol (oral/injection) (JAY ta lol) Betapace, Betapace AF, Sorine, Sotalol Hydrochloride AF, Sotylize What is the most important information I should know about sotalol? You should not use sotalol if you have asthma, low potassium, or a serious heart condition such as severe heart failure, long QT syndrome, slow heartbeats that have caused you to faint, 'sick sinus syndrome' or 'AV block' (unless you have a pacemaker). You will receive your first few doses of sotalol in a hospital setting where your heart can be monitored in case the medicine causes serious side effects. What is sotalol? Sotalol is a beta-megan that affects the heart and circulation within the atrium and ventricles (the upper and lower chambers of the heart that allow blood to flow into and out of the heart). Sotalol is used to help keep the heart beating normally in people with certain heart rhythm disorders, such as atrial fibrillation, atrial flutter, ventricular tachycardia, and ventricular fibrillation. Sotalol may also be used for purposes not listed in this medication guide. What should I discuss with my healthcare provider before taking sotalol? You should not use sotalol if you are allergic to it, or if you have: a serious heart condition such as 'sick sinus syndrome' or 'AV block' (unless you have a pacemaker); long QT syndrome (in you or a family member); severe heart failure; slow heartbeats that have caused you to faint; asthma or other breathing disorder; very low levels of potassium in your blood; or (if you take sotalol for atrial fibrillation or atrial flutter) severe kidney disease; Do not give this medicine to a child without medical advice. Tell your doctor if you have ever had: kidney disease (or if you are on dialysis); an electrolyte imbalance (such as low levels of potassium or magnesium in your blood); congestive heart failure; coronary artery disease (hardened arteries); breathing problems such as bronchitis or emphysema; a thyroid disorder; diabetes (using sotalol can make it harder for you to tell when you have low blood sugar); a severe allergic reaction. Tell your doctor if you are . You should not breastfeed while using sotalol. How should I take sotalol? Follow all directions on your prescription label and read all medication guides or instruction sheets. Your doctor may occasionally change your dose. Use the medicine exactly as directed. Sotalol oral is taken by mouth. Sotalol injection is given as an infusion into a vein. A healthcareprovider will give you this injection if you are unable to take the medicine by mouth. You will receive your first few doses of sotalol in a hospital setting where your heart can be monitored in case the medicine causes serious side effects. If you already take heart rhythm medication, you may need to stop taking it when you start using sotalol. Carefully follow your doctor's instructions. Measure liquid medicine carefully. Use the dosing syringe provided, or use a medicine dose-measuring device (not a kitchen spoon). Sotalol doses are based on age and body surface area (height and weight) in children. Your child'sdose needs may change if the child gains or loses weight, or is still growing. Call your doctor if you are sick with vomiting or diarrhea, or if you have increased thirst, decreased appetite, or are sweating more than usual. You can easily become dehydrated while taking sotalol. This can lead to very low blood pressure, a serious electrolyte imbalance, or kidney failure. You will need frequent medical tests. Your heart function may need to be checked using an electrocardiograph or ECG (sometimes called an EKG). You may also need heart function tests for 1 to 2 weeks after your last dose. Keep using this medicine as directed, even if you feel well. You may need to take sotalol for the rest of your life. Do not skip doses or stop using sotalol without your doctor's advice. Stopping suddenly may make your condition worse. Follow your doctor's instructions about tapering your dose. If you need surgery, tell your surgeon you currently use this medicine. Store at room temperature away from moisture and heat. Do not allow liquid medicine to freeze. Your pharmacist may prepare an oral suspension (liquid) form of sotalol. Keep the suspension at room temperature and throw away suspension any left over after 3 months of use. What happens if I miss a dose? Skip the missed dose and use your next dose at the regular time. Do not use two doses at one time. Try not to miss any doses. Get your prescription refilled before you run out of medicine completely. What happens if I overdose? Seek emergency medical attention or call the Poison Help line at . An overdose of sotalol can be fatal. What should I avoid while taking sotalol? Avoid taking an antacid within 2 hours before or 2 hours after you take sotalol. Some antacids can make it harder for your body to absorb sotalol. What are the possible side effects of sotalol? Get emergency medical help if you have signs of an allergic reaction: hives; difficult breathing; swelling of your face, lips, tongue, or throat. Call your doctor at once if you have: chest pain; fast or pounding heartbeats, fluttering in your chest; sudden dizziness (like you might pass out); slow heartbeats (especially if you feel light-headed); swelling, rapid weight gain; or feeling short of breath. Common side effects may include: slow heartbeats; trouble breathing; dizziness; or feeling weak or tired. This is not a complete list of side effects and others may occur. Call your doctor for medical advice about side effects. You may report side effects to FDA at 3-368-HNG-2326. What other drugs will affect sotalol? Tell your doctor about all your other medicines, especially: other heart medications; blood pressure medication; or insulin or oral diabetes medicine. This list is not complete. Other drugs may affect sotalol, including prescription and bemf-eum-xucedyr medicines, vitamins, and herbal products. Not all possible drug interactions are listed here. Where can I get more information? Your doctor or pharmacist can provide more information about sotalol. Remember, keep this and all other medicines out of the reach of children, never share your medicines with others, and use this medication only for the indication prescribed. Every effort has been made to ensure that the information provided by [employer] is accurate, up-to-date, and complete, but no guarantee is made to that effect. Drug information contained herein may be time sensitive. [employer] information has been compiled for use by healthcare practitioners and consumers in the [place] and therefore [employer] does not warrant that uses outside of the [place] are appropriate, unless specifically indicated otherwise. [employer] drug information does not endorse drugs, diagnose patients or recommend therapy. [employer]'s drug information isan informational resource designed to assist licensed healthcare practitioners in caring for their p atients and/or to serve consumers viewing this service as a supplement to, and not a substitute for, the expertise, skill, knowledge and judgment of healthcare practitioners. The absence of a warningfor a given drug or drug combination in no way should be construed to indicate that the drug or drug combination is safe, effective or appropriate for any given patient. [facility] does not assume any responsibility for any aspect of healthcare administered with the aid of information [facility] provides. The information contained herein is not intended to cover all possible uses, directions, precautions, warnings, drug interactions, allergic reactions, or adverse effects. If you have questions about the drugs you are taking, check with your doctor, nurse or pharmacist. Copyright 3697-5313 [facility] Version: .. Revision Date: 09/06/2018. digoxin (oral/injection) (di JOX in) Digox, Lanoxin What is the most important information I should know about digoxin? You should not use digoxin if you have a heart rhythm disorder called ventricular fibrillation. What is digoxin? Digoxin is derived from the leaves of a digitalis plant and is used to treat heart failure. Digoxin is also used to treat atrial fibrillation, a heart rhythm disorder of the atrium (the upperchambers of the heart that allow blood to flow into the heart). Digoxin may also be used for purposes not listed in this medication guide. What should I discuss with my healthcare provider before using digoxin? You should not use digoxin if you are allergic to it, or if you have ventricular fibrillation (a heart rhythm disorder of the ventricles, or lower chambers of the heart that allow blood to flow out of the heart). Tell your doctor if you have ever had: a serious heart condition such as 'sick sinus syndrome' or 'AV block' (unless you have a pacemaker); a heart attack; slow heartbeats that have caused you to faint; Lhqqa-Aimtsfzot-Yuhgm Syndrome (sudden fast heartbeats); kidney disease; an electrolyte imbalance (such as low levels of calcium, potassium, or magnesium in your blood); a thyroid disorder; or if you have recently been sick with vomiting or diarrhea. Tell your doctor if you are . It is not known whether digoxin will harm an unborn baby. However, having heart failure or atrial fibrillation during may cause complications such as premature or low weight, or risk of in both mother and baby. The benefit of treating heart problems with digoxin may outweigh any risks to the baby. It may not be safe to breast-feed while using this medicine. Ask your doctor about any risk. How should I use digoxin? Follow all directions on your prescription label and read all medication guides or instruction sheets. Use the medicine exactly as directed. Try to take oral digoxin at the same time every day. Measure liquid medicine carefully. Use the dosing syringe provided, or use a medicine dose-measuring device (not a kitchen spoon). Take digoxin regularly even if you feel fine or have no symptoms. Get your prescription refilled before you run out of medicine completely. Digoxin injection is given as a shot into a muscle, or as an infusion into a vein. A healthcare provider will give you this injection if you are unable to take the medicine by mouth. Your blood pressure and heart rate will need to be checked daily. You may need frequent blood tests. Your kidney function may also need to be checked. You should not stop taking digoxin suddenly. Stopping suddenly may make your condition worse. Store at room temperature away from moisture and heat. What happens if I miss a dose? Take the medicine as soon as you can, but skip the missed dose if your next dose is due in less than 12 hours. Do not take two doses at one time. What happens if I overdose? Seek emergency medical attention or call the Poison Help line at . An overdose of digoxin can be fatal. Overdose symptoms may include nausea, vomiting, loss of appetite, and feeling tired. What should I avoid while using digoxin? Avoid becoming overheated or dehydrated during exercise, in hot weather, or by not drinking enough fluids. Digoxin overdose can occur more easily if you are dehydrated. What are the possible side effects of digoxin? Get emergency medical help if you have signs of an allergic reaction: hives; difficulty breathing; swelling of your face, lips, tongue, or throat. Call your doctor at once if you have: nausea, vomiting, diarrhea, stomach pain; fast, slow, or uneven heart rate; a light-headed feeling, like you might pass out; bloody or black, tarry stools; confusion, weakness, hallucinations, unusual thoughts or behavior; breast swelling or tenderness; blurred vision, yellowed vision; or (in babies or children) stomach pain, weight loss, growth delay, behavior changes. Serious side effects may be more likely in older adults and those who are ill or debilitated. Common side effects may include: nausea, diarrhea; feeling weak or dizzy; headache, weakness, anxiety, depression; or rash. This is not a complete list of side effects and others may occur. Call your doctor for medical advice about side effects. You may report side effects to FDA at 4-224-XQY-9693. What other drugs will affect digoxin? Sometimes it is not safe to use certain medications at the same time. Some drugs can affect your blood levels of other drugs you take, which may increase side effects or make the medications less effective. Many drugs can affect digoxin. This includes prescription and oecr-piw-oqkmieu medicines, vitamins,and herbal products. Not all possible interactions are listed here. Tell your doctor about all yourcurrent medicines and any medicine you start or stop using. Where can I get more information? Your pharmacist can provide more information about digoxin. Remember, keep this and all other medicines out of the reach of children, never share your medicines with others, and use this medication only for the indication prescribed. Every effort has been made to ensure that the information provided by [employer] is accurate, up-to-date, and complete, but no guarantee is made to that effect. Drug information contained herein may be time sensitive. [employer] information has been compiled for use by healthcare practitioners and consumers in the [place] and therefore [employer] does not warrant that uses outside of the [place] are appropriate, unless specifically indicated otherwise. [employer] drug information does not endorse drugs, diagnose patients or recommend therapy. [employer] drug information isan informational resource designed to assist licensed healthcare practitioners in caring for their p atients and/or to serve consumers viewing this service as a supplement to, and not a substitute for, the expertise, skill, knowledge and judgment of healthcare practitioners. The absence of a warningfor a given drug or drug combination in no way should be construed to indicate that the drug or drug combination is safe, effective or appropriate for any given patient. [employer] does not assume any responsibility for any aspect of healthcare administered with the aid of information [employer] provides. The information contained herein is not intended to cover all possible uses, directions, precautions, warnings, drug interactions, allergic reactions, or adverse effects. If you have questions about the drugs you are taking, check with your doctor, nurse or pharmacist. Copyright [id number] [employer]. Version: 01.14. Revision Date: 10/17/2022. Education Materials Atrial Fibrillation Atrial fibrillation is a type of heartbeat that is irregular or fast (rapid). If you have this condition, your heart beats without any order. This makes it hard for your heart to pump blood in a normal way. Having this condition gives you more risk for stroke, heart failure, and other heart problems. Atrial fibrillation may start all of a sudden and then stop on its own, or it may become a long-lasting problem. What are the causes? This condition may be caused by heart conditions, such as: High blood pressure. Heart failure. Heart valve disease. Heart surgery. Other causes include: Pneumonia. Obstructive sleep apnea. Lung cancer. Thyroid disease. Drinking too much alcohol. Sometimes the cause is not known. What increases the risk? You are more likely to develop this condition if: You smoke. You are older. You have diabetes. You are overweight. You have a family history of this condition. You exercise often and hard. What are the signs or symptoms? Common symptoms of this condition include: A feeling like your heart is beating very fast. Chest pain. Feeling short of breath. Feeling light-headed or weak. Getting tired easily. Follow these instructions at home: Medicines Take tlxs-aeb-xuvuoip and prescription medicines only as told by your doctor. If your doctor gives you a blood-thinning medicine, take it exactly as told. Taking too much of it can cause bleeding. Taking too little of it does not protect you against clots. Clots can cause a stroke. Lifestyle Do not use any tobacco products. These include cigarettes, chewing tobacco, and e-cigarettes. If you need help quitting, ask your doctor. Do not drink alcohol. Do not drink beverages that have caffeine. These include coffee, soda, and tea. Follow diet instructions as told by your doctor. Exercise regularly as told by your doctor. General instructions If you have a condition that causes breathing to stop for a short period of time (apnea), treat it as told by your doctor. Keep a healthy weight. Do not use diet pills unless your doctor says they are safe for you. Diet pills may make heart problems worse. Keep all follow-up visits as told by your doctor. This is important. Contact a doctor if: You notice a change in the speed, rhythm, or strength of your heartbeat. You are taking a blood-thinning medicine and you see more bruising. You get tired more easily when you move or exercise. You have a sudden change in weight. Get help right away if: You have pain in your chest or your belly (abdomen). You have trouble breathing. You have blood in your vomit, poop, or pee (urine). You have any signs of a stroke. BE FAST is an easy way to remember the main warning signs: ? B - Balance. Signs are dizziness, sudden trouble walking, or loss of balance. ? E - Eyes. Signs are trouble seeing or a change in how you see. ? F - Face. Signs are sudden weakness or loss of feeling in the face, or the face or eyelid drooping on one side. ? A - Arms. Signs are weakness or loss of feeling in an arm. This happens suddenly and usually on oneside of the body. ? S - Speech. Signs are sudden trouble speaking, slurred speech, or trouble understanding what peoplesay. ? T - Time. Time to call emergency services. Write down what time symptoms started. You have other signs of a stroke, such as: ? A sudden, very bad headache with no known cause. ? Feeling sick to your stomach (nausea). ? Throwing up (vomiting). ? Jerky movements you cannot control (seizure). These symptoms may be an emergency. Do not wait to see if the symptoms will go away. Get medical help right away. Call your local emergency services (911 in the [place] Do not drive yourself to the hospital. Summary Atrial fibrillation is a type of heartbeat that is irregular or fast (rapid). You are at higher risk of this condition if you smoke, are older, have diabetes, or are overweight. Follow your doctor's instructions about medicines, diet, exercise, and follow-up visits. Get help right away if you think that you have signs of a stroke. This information is not intended to replace advice given to you by your health care provider. Make sure you discuss any questions you have with your health care provider. Document Released: 12/09/2008 Document Revised: 05/06/2018 Document Reviewed: 04/23/2018 Elsevier Patient Education 2020 [employer] Additional Information VACCINATE! IT SAVES LIVES! Members of the community who have not yet received the COVID-19 vaccine and would like to receive it can visit one of [facility] vaccine clinics. There are many vaccine clinic locations within the [facility]. For locations and available times, please visit https://[email or web address].[place].gov/. It is important to note that some COVID mobile vaccine clinics are held outdoors and may be canceled in rainy or stormy conditions. To learn more about pediatric vaccinations (ages 5-11), we invite you to visit the [employer] webpage. https://www.TripShakes.org/pages/[email or web address]-[email or web address]-Tjpibqysra-Gpbcc-Fwy stions.htmlTo learn more about the COVID-19 vaccine, we invite you to visit the CDC website for a list of frequently asked questions.https://www.cdc.gov/coronavirus/2019-ncov/vaccines/faq.html [employer] Patient Portal Access Instructions: Stay connected with your healthcare team and access your personal medical information anytime with the [employer] Patient Portal. Please follow the directions below to create your [employer] account: 1.Access the email account you provided upon registration to the hospital/physician office.2.Look for an invitation email from [facility].3.Open the email and access the invitation link: AcceptInvitation to [facility].4.Fill in the required banks to create your account. To access your account, visit [email or web address]. Click the blue button labeled Access Patient Portal and then log in with the username and password that you created in the steps above. You will be able to view your test results, lab results, a summary of your visits, upcoming appointments and more. There is also a convenient messaging option where you can send secure messages to your p rovider. In addition, you will have the ability to download any documents or summaries to your computer and/or send the information securely to a physician. Remember that your healthcare information is confidential, so carefully consider who you will allowto register on the [employer] [facility] Patient Portal for access to your information. You can also access the [facility] Patient Portal on the [facility] Anywhere tip. Simply click on Patient Portal and then log into your account. If you would like to receive a full copy of your medical records, please contact the [facility] Medical Records Department by calling [phone], Thursday through Thursday between 8 a.m. and 4:30 p.m. HOW TO SAFELY DISPOSE OF PRESCRIPTION MEDICATIONS Please use one of the following methods to safely dispose of your unused medications. 1.Use a drug disposal kit: the drug disposal pouch allows you to safely discard your old and unuseddrugs. Ask your nurse to give you one when you are discharged.2.Visit a local take-back location: Many local pharmacies and police departments have programs that collect old and unwanted prescriptiondrugs. Call your local pharmacy or go to http://Bionaturis/4U3Fw4t to find one close to you.3.Make use of household items: Use cat litter or old coffee grounds to dispose medications if other options arenot available. Mix your drugs with these household products, seal them in an airtight container andthrow it into the garbage. Call [facility]: [phone] to be sure your drugs can be disposed of in this way. Some medicines may require a different approach.4.Never flush your medications down the toilet. IF YOU HAVE BEEN PRESCRIBED AN OPIOID FOR PAIN If you have been prescribed an opioid (such as hydrocodone, oxycodone or morphine), it is critical to understand the possible side effects and risks of opioid pain medications. Even when taken as directed, opioids can have several side effects including: Tolerance, meaning you might need to take more of a medication for the same pain relief. Nausea, vomiting and/or constipation. Sleepiness, dizziness, dry mouth, confusion, depression or itching. Physical dependence, meaning you have withdrawal symptoms when a medication is stopped, can develop within a few days. KNOW YOUR RESPONSIBILITIES It is important to know exactly how much and how often to take the opioid pain medications you are prescribed. Never take opioids in higher amounts or more often than prescribed. Do not combine opioids with alcohol or other drugs that cause drowsiness, such as benzodiazepines, also known as benzos, including diazepam and alprazolam, muscle relaxants or sleep aids. Never sell or share prescription opioids. This is illegal. Store opioids in a secure place and out of reach of others (including children, family, friends and visitors). The last page of this document has been signed and retained as a CHART COPY. Signatures Patient Education Materials Atrial Fibrillation, Ycfk-ek-Kfwo Medication Leaflets sotalol (oral/injection), digoxin (oral/injection) My discharge plan and instructions have been reviewed and explained to me and I,HIRAM DORAN understand my current condition and have read and understand these discharge instructions. I have received a written copy of the plan/instructions. If I have questions, I am aware that I should contact my d octor. 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 I last saw patient 12/03/2022 and patient was back in a sinus rhythm. He just had an ER visit 11/19/2022 and he was in atrial fibrillation. He was given IV diltiazem at that time and spontaneously converted. He was given IV diltiazem here at the hospital, unfortunately continued in atrial fibrillation. He did experience hypotension so diltiazem was discontinued. He has been given his Coreg and his digoxin. Blood pressure improved marginally and the Cardizem drip was reinitiated due to continued rapid rate. 2 days ago patient was started on sotalol and Coreg was stopped. Yesterday diltiazem IV was transitioned to oral with 30 mg 4 times daily. Unfortunately blood pressure continue to be soft running in the high 80s to low 90s. Patient does feel lightheaded and tired with it. Heartrate has been controlled. Overall he reports feeling tired. He denies chest pain, chest pressure, dizziness, diaphoresis, andsyncope. This is a patient of Dr. Kahn. He has a history of CAD, PAF, hypertension, JORGE, and COPD. Echocardiogram done yesterday showed EF continues at 45%, mild MR, and most likely a prominent eustachian valve in the right atrium. Echo Summary: 1. Left ventricle: The cavity size is normal. Wall thickness is normal. Systolic function is mildlyreduced. The estimated ejection fraction is 45%. There is mild diffuse hypokinesis. Regional wall motion abnormalities cannot be excluded. Grade II diastolic dysfunction. Accuracy of LV function estimate limited due to varying RR intervaland foreshortening. 2. Mitral valve: The annulus is mildly calcified. There is mild regurgitation. 3. Left atrium: The atrium is mildly to moderately dilated. 4. Right ventricle: The RV systolic pressure by Doppler is 42 mm Hg. 5. Right atrium: Mobile echodensity in RA. Differential include prominent eustachian valve vs. catheter tip. Suspicion for mass low. The estimated right atrial pressure is 8 mm Hg. 6. Atrial septum: There is redundancy of the septum, with borderline criteria for aneurysm. 7. Pericardium, extracardiac: A prominent pericardial fat pad is present. A trivial pericardial effusion is identified [1] Objective Vitals and Measurements T: 36.8 C (Oral) TMIN: 36.4 C (Oral) TMAX: 36.9 C (Oral) HR: 74(Monitored) RR: 24 BP: 104/69 BP: 87/62(Sitting) BP: 83/58(Standing) BP: 89/59(Supine) SpO2: 94% WT: 84.5 kg Intake and Output 7AM Yesterday to 7AM Today Intake and Output (Last 24 hours) Intake Oral Intake 680.00 Output Urine Voided 1600.00 Stool Count 3.00 Total Summary Total Intake 680.00 Total Output 1600.00 Fluid Balance -920.00 Physical Exam GENERAL: Well nourished; no acute distress. PSYCHIATRIC: Alert and oriented x 3, cooperative, mood normal, affect normal. HEAD: Normocephalic, nontraumatic head. EYES: No drainage noted. NECK: Supple, no posterior midline tenderness. Normal range of motion. No JVD noted. CARDIAC: Irregular rate, irregular rhythm, no murmurs noted. No S3 or S4 noted. RESPIRATORY: Regular rate and depth; no distress, lung sounds clear bilaterally. ABDOMEN: Soft, nontender. Normal bowel sounds. EXTREMITIES: No edema noted. Dorsalis Pedis pulse +2/4 bilaterally. Posterior Tibialis pulse +2/4 bilaterally. DERM: Warm and dry. Normal turgor. Weight Current Weight Dosing Weight: 84.5 kg (12/17/22) Current Weight: 86.5 kg (12/15/22) Dosing Weight: 85.7 kg (12/16/22) Current Weight: 86.7 kg (12/14/22) Medications Medications (13) Active Scheduled: (9) apixaban 2.5 mg tablet 5 mg 2 tab(s), Oral, BID atorvastatin 10 mg tablet 10 mg 1 tab(s), Oral, qHS budesonide 0.5 mg/2 mL Susp UD 0.5 mg 2 mL, Inhalation, BIDRT digoxin 0.125 mg tablet 0.125 mg 1 tab(s), Oral, qDay duloxetine [address] capsule 120 mg 2 cap(s), Oral, qDay guaifenesin 600 mg ER 600 mg 1 tab(s), Oral, q12h ipratropium 0.02% (0.5mg/2.5mL) UD 0.5 mg 2.5 mL, Inhalation, QIDRT sotalol 80 mg Tablet 40 mg 0.5 tab(s), Oral, BID tamsulosin 0.4 mg Capsule 0.8 mg 2 cap(s), Oral, qHS Continuous: (0) PRN: (4) acetaminophen 325 mg Tablet 650 mg 2 tab(s), Oral, q4h acetaminophen 325 mg Tablet 650 mg 2 tab(s), Oral, q4h LORAZEPam 0.5 mg tablet 0.5 mg 1 tab(s), Oral, qHS melatonin 3 mg tablet 3 mg 1 tab(s), Oral, qHS Lab Results No 36 Hour Lab Data EKG Electrocardiogram [AOH] (EKG [AOH]) - InProcess -- 12/16/22 9:36:00 EDT Assessment/Plan 1. Atrial fibrillation Persistent, rate controlled. Currently on sotalol and Cardizem 30 mg 4 times daily. Blood pressure continues to be soft. I discussed plan with daughter. She does not think it is feasible for patient to take the medication 4 times a day. I am concerned that if he is given Cardizem 120 which would bethe long-acting his blood pressure will not tolerate. Daughter reports he does have low blood pressure normally at home. We will plan on sending patient home on sotalol and a low-dose of digoxin withplans to set up cardioversion in the near future. *Continue sotalol and Eliquis *Discontinue Cardizem due to hypotension and start digoxin 0.125mg daily *Patient to follow-up in the office early next week. 2. 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 Heart catheterization 05/27/2021 showed mild luminal irregularities in the LAD, 90% proximalD1, moderate left circumflex, and mild to moderate RCA. He had unsuccessful PCI to the first diagonal due to inability to cross wire. He is currently on rosuvastatin. 3. (HFpEF) heart failure with preserved ejection fraction Not currently in acute heart failure. Patient appears euvolemic today. [place] Heart Association class II-III. 4. COPD (chronic obstructive pulmonary disease) Stable per hospitalist. 5. Essential hypertension Patient continues to have a soft BP. We will discontinue diltiazem and see how his blood pressure does. 6. JORGE (obstructive sleep apnea) Patient is on CPAP, he is compliant. 7. BPH associated with nocturia Per hospitalist Orders: digoxin, Start: 12/17/22 9:00:00 EDT, Dose = 0.125 mg, = 1 tab(s), Oral, qDay, 12/17/22 8:56:00 EDT I spent a total of 30 minutes reviewing the patient's diagnostic test, labs, information including past medical history and medications, seeing the patient, and documenting in the record. I reviewed the most recent cardiac testing, labs, and answered questions. This note was generated using a voice recognition system. There may be incorrect words, spelling's,and punctuation that were missed in checking this note before saving. [1] Echocardiogram, Adult (AOH); Yasemin Thompson Tech 12/16/2022 16:45 EDT Digitally Signed by NIKO MARTÍNEZ on 12/17/2022 12:58 PM [facility]10-03-2023 Note* Exam Date Time Procedure Performing Provider Status 12/16/22 4:45 PM Echocardiogram, Adult (AOH) Auth (Verified) [facility] 10-03-2023 Note Date of Service 12/16/2022 Chief Complaint AF RVR Subjective 82-year-old male with past medical history significant for atrial fibrillation anticoagulated with apixaban, combined systolic and diastolic heart failure, CAD, HTN, HLD, JORGE on CPAP, COPD/interstitial lung disease, GERD, BPH, asbestos exposure, anxiety/depression, chronic back pain, psoriasis. Patient presented to [facility] emergency department on 12/13/2022 with reports of feeling himself going into atrial fibrillation this morning. He was advised by cardiology to take an additionalCoreg 3.125 mg when this occurred. He did and this was ineffective. In the emergency department he was afebrile, heart rate was in the 140s, blood pressure 90s systolic. Oxygen saturation 90% on roomair. He was given Cardizem IV push with improvement in rate however with any physical activity his heart rate increased into the 120s. He was then initiated on a Cardizem drip. His blood pressure diddrop into mid 80s systolic. He received a total of 1 L normal saline. White blood cell count 10,900, H&H stable at 13.6 and 39% respectively. Glucose 122. Remainder of BMP unremarkable. Patient was subsequently admitted for further evaluation. Patient was resistant to having Coreg increased. While awaiting cardiology consult he received 2 doses of digoxin. He was on and off Cardizem drip. On 12/15/2022, cardiology started sotalol. His rateshave been better controlled however overnight his rate is increased and he required Cardizem drip again. This morning patient's only complaint is occasional dizziness but at that time he was hypotensive. Objective Vitals and Measurements T: 36.6 C (Oral) TMIN: 36.5 C (Oral) TMAX: 36.8 C (Oral) HR: 93(Monitored) RR: 25 BP: 109/77 SpO2: 94% WT: 85.7 kg Intake and Output 7AM Yesterday to 7AM Today Intake and Output (Last 24 hours) Intake Oral Intake 880.00 Output Urine Voided 1600.00 Stool Count 0.00 Urine Count 5.00 Total Summary Total Intake 880.00 Total Output 1600.00 Fluid Balance -720.00 Physical Exam GEN: Appears chronically ill THROAT: Oral cavity and pharynx pink and moist. CHEST: Normal S1 and S2. Rhythm is irregularly irregular. Clear to auscultation, without rales, rhonchi, wheezing. ABD: Positive bowel sounds x 4 quads. Soft, nondistended, nontender. EXT: No significant deformity or joint abnormality. No edema. Peripheral pulses intact. NEURO: Sensation grossly intact SKIN: Skin color normal PSYCH: The mental examination revealed the patient was alert and oriented x 4 Weight Current Weight Dosing Weight: 85.7 kg (12/16/22) Current Weight: 86.5 kg (12/15/22) Dosing Weight: 86.7 kg (12/13/22) Current Weight: 86.7 kg (12/14/22) Medications Medications (15) Active Scheduled: (9) apixaban 2.5 mg tablet 5 mg 2 tab(s), Oral, BID atorvastatin 10 mg tablet 10 mg 1 tab(s), Oral, qHS budesonide 0.5 mg/2 mL Susp UD 0.5 mg 2 mL, Inhalation, BIDRT diltiazem 30 mg tablet 30 mg 1 tab(s), Oral, QID duloxetine [address] capsule 120 mg 2 cap(s), Oral, qDay guaifenesin 600 mg ER 600 mg 1 tab(s), Oral, q12h ipratropium 0.02% (0.5mg/2.5mL) UD 0.5 mg 2.5 mL, Inhalation, QIDRT sotalol 80 mg Tablet 40 mg 0.5 tab(s), Oral, BID tamsulosin 0.4 mg Capsule 0.8 mg 2 cap(s), Oral, qHS Continuous: (2) diltiazem 125 mg [5 mg/hr] + Sodium Chloride 0.9% 100 mL 100 mL, Intravenous, 5 mL/hr NS (0.9% nacl) 1,000 mL 1,000 mL, Intravenous, 20 mL/hr PRN: (4) acetaminophen 325 mg Tablet 650 mg 2 tab(s), Oral, q4h acetaminophen 325 mg Tablet 650 mg 2 tab(s), Oral, q4h LORAZEPam 0.5 mg tablet 0.5 mg 1 tab(s), Oral, qHS melatonin 3 mg tablet 3 mg 1 tab(s), Oral, qHS Lab Results 12/15 05:21 WBC: 10.5 Hgb: 13.2 L Hct: 38.4 L Platelet: 215 Neutrophil %: 75.2 Glucose Level: 116 H Sodium Level: 140 Potassium Level: 4.5 BUN: 13 Creatinine Lvl (s): 1.05 Imaging Results and Diagnostics XR Chest 2 Views Result Date: December 15, 2022 Verified By: NINO LONGORIA MD CLINICAL STATEMENT: IMPRESSION: No acute cardiopulmonary process. Chronic changes in the lower lungs asdescribed. Question background of COPD. XR Chest 1 View Result Date: December 13, 2022 Verified By: MORTEZA COLBERT DO CLINICAL STATEMENT: IMPRESSION: The patchy bilateral ground-glass opacities could represent infectious orinflammatory process. Small left pleural effusion with adjacent left basilar atelectasis versusconsolidation. I have personally reviewed the images of this examination and agree with theresident's findings and inter pretation. EKG Electrocardiogram [AOH] (ECG [AOH]) - InProcess -- 12/16/22 7:00:00 EDT Electrocardiogram [AOH] (EKG [AOH]) - InProcess -- 12/16/22 9:36:00 EDT Assessment/Plan 1. Atrial fibrillation with RVR 3. JORGE on CPAP 4. COPD (chronic obstructive pulmonary disease) Afib with RVR-patient has a history of A-fib with RVR and follows with cardiology. Continue home dose of apixaban. Patient was initiated on sotalol yesterday. He did require restarting Cardizem drip overnight. Cardiology STAFF CLIMATE SCIENTIST discontinued Coreg and started Cardizem 4 times daily. The drip was discontinued shortly thereafter. Blood pressure was initially low however he received Coreg. His blood pressure did improve by early afternoon. He had some dizziness with position change this morning. Appreciate cardiology recommendations. 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 Patient appears euvolemic. JORGE on CPAP- CPAP as at home COPD- Not in acute exacerbation. Would recommend albuterol be discontinued and start patient on Xopenex due to A-fib with RVR. DVT prophylaxis:apixaban Code Status:Full Code Plan of care discussed with patient and daughters. All questions answered. Patient verbalizes understanding is agreeable to plan of care. This dictation was performed using voice recognition software and may include grammatical and/or spelling errors. Time Spent 42 minutes was spent in [id number] time and coordination of care for this patient, including but not limited to personally gathering history, examining the patient, reviewing labs and images and records, counseling patient and/or family about diagnosis and potential workup if applicable, as detailed above as well as discussing the case with patient's interdisciplinary team where applicable. Digitally Signed by VIVIEN PLATA on 12/16/2022 01:20 PM [facility]10-03-2023 Note Date of Service 12/16/22 Chief Complaint Atrial fibrillation Subjective This is a pleasant 82-year-old male patient who was admitted to the hospital for recurrent atrial fibrillation. I last saw patient 12/03/2022 and patient was back in a sinus rhythm. He just had an ER visit 11/19/2022 and he was in atrial fibrillation. He was given IV diltiazem at that time and spontaneously converted. He was given IV diltiazem here at the hospital, unfortunately continued in atrial fibrillation. He did experience hypotension so diltiazem was discontinued. He has been given his Coreg and his digoxin. Continues on a Cardizem drip currently. Sotalol was started yesterday. Overall he reports feeling tired and weak today. He denies chest pain, chest pressure, dizziness, diaphoresis, and syncope. This is a patient of Dr. Kahn. He has a history of CAD, PAF, hypertension, JORGE, and COPD. Last echocardiogram was 03/10/2022 and it showed EF 45% and overall stable valve function. Echo Summary: 1. Left ventricle: The cavity size is normal. Wall thickness is normal. Systolic function is mildlyreduced. The estimated ejection fraction is 45%. There is mild diffuse hypokinesis. Grade I diastolic dysfunction. 2. Mitral valve: The annulus is mildly calcified. 3. Right ventricle: The RV systolic pressure by Doppler is 19 mm Hg. 4. Right atrium: The estimated right atrial pressure is 3 mm Hg. 5. Pericardium, extracardiac: A prominent pericardial fat pad is present Objective Vitals and Measurements T: 36.6 C (Oral) TMIN: 36.3 C (Oral) TMAX: 36.8 C (Oral) HR: 74(Monitored) RR: 21 BP: 103/75 SpO2: 93% WT: 85.7 kg Intake and Output 7AM Yesterday to 7AM Today Intake and Output (Last 24 hours) Intake Oral Intake 1100.00 Output Urine Voided 1550.00 Urine Count 5.00 Total Summary Total Intake 1100.00 Total Output 1550.00 Fluid Balance -450.00 Physical Exam GENERAL: Well nourished; no acute distress. PSYCHIATRIC: Alert and oriented x 3, cooperative, mood normal, affect normal. HEAD: Normocephalic, nontraumatic head. EYES: No drainage noted. NECK: Supple, no posterior midline tenderness. Normal range of motion. No JVD noted. CARDIAC: Irregular rate, irregular rhythm, no murmurs noted. No S3 or S4 noted. RESPIRATORY: Regular rate and depth; no distress, lung sounds clear bilaterally. ABDOMEN: Soft, nontender. Normal bowel sounds. EXTREMITIES: No edema noted. Dorsalis Pedis pulse +2/4 bilaterally. Posterior Tibialis pulse +2/4 bilaterally. DERM: Warm and dry. Normal turgor. Weight Current Weight Dosing Weight: 85.7 kg (12/16/22) Current Weight: 86.5 kg (12/15/22) Dosing Weight: 86.7 kg (12/13/22) Current Weight: 86.7 kg (12/14/22) Medications Medications (15) Active Scheduled: (9) apixaban 2.5 mg tablet 5 mg 2 tab(s), Oral, BID atorvastatin 10 mg tablet 10 mg 1 tab(s), Oral, qHS budesonide 0.5 mg/2 mL Susp UD 0.5 mg 2 mL, Inhalation, BIDRT diltiazem 30 mg tablet 30 mg 1 tab(s), Oral, QID duloxetine [address] capsule 120 mg 2 cap(s), Oral, qDay guaifenesin 600 mg ER 600 mg 1 tab(s), Oral, q12h ipratropium 0.02% (0.5mg/2.5mL) UD 0.5 mg 2.5 mL, Inhalation, QIDRT sotalol 80 mg Tablet 40 mg 0.5 tab(s), Oral, BID tamsulosin 0.4 mg Capsule 0.8 mg 2 cap(s), Oral, qHS Continuous: (2) diltiazem 125 mg [5 mg/hr] + Sodium Chloride 0.9% 100 mL 100 mL, Intravenous, 5 mL/hr NS (0.9% nacl) 1,000 mL 1,000 mL, Intravenous, 20 mL/hr PRN: (4) acetaminophen 325 mg Tablet 650 mg 2 tab(s), Oral, q4h acetaminophen 325 mg Tablet 650 mg 2 tab(s), Oral, q4h LORAZEPam 0.5 mg tablet 0.5 mg 1 tab(s), Oral, qHS melatonin 3 mg tablet 3 mg 1 tab(s), Oral, qHS Lab Results 12/15 05:21 WBC: 10.5 Hgb: 13.2 L Hct: 38.4 L Platelet: 215 Neutrophil %: 75.2 Glucose Level: 116 H Sodium Level: 140 Potassium Level: 4.5 BUN: 13 Creatinine Lvl (s): 1.05 EKG Electrocardiogram [AOH] (ECG [AOH]) - InProcess -- 12/16/22 7:00:00 EDT Assessment/Plan 1. Atrial fibrillation Recurrent, persistent. Currently on Coreg, sotalol, Cardizem drip, and Eliquis. Rate controlled thelast several hours. EKG this morning shows atrial flutter with QTc possibly 0.40, difficult to ascertain given the irregularity. Patient seems to have better rate control with Cardizem. We will discontinue Coreg since he is on sotalol. We will start Cardizem 30 mg 4 times daily today. We will repeat echocardiogram to make sure her EF is okay to be on Cardizem. Recommend 1 more day in the hospitalfor medication adjustment. *DC Coreg *Start diltiazem 30 mg 4 times daily, will plan to change that to long-acting tomorrow. *Continue sotalol and Eliquis *ECG in a.m. *Check echo to make sure patient is okay to have Cardizem. History of EF of 45%. We will make sure her EF is not lower. 2. 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 Heart catheterization 05/27/2021 showed mild luminal irregularities in the LAD. 90% proximalD1, moderate left circumflex, and mild to moderate RCA. He had unsuccessful PCI to the first diagonal due to inability to cross wire. Patient currently on rosuvastatin. [1] 3. (HFpEF) heart failure with preserved ejection fraction Not currently in acute HF. Patient appears euvolemic. [place] [employer] class II-III. 4. COPD (chronic obstructive pulmonary disease) Stable, per hospitalist. 5. Essential hypertension Continues to be a soft BP. Will discontinue carvedilol, continue sotalol and start oral Cardizem. 6. JORGE (obstructive sleep apnea) Patient is on CPAP, compliant. 7. BPH associated with nocturia Per hospitalist Orders: dilTIAZem, Start: 12/16/22 9:00:00 EDT, Dose = 30 mg, = 1 tab(s), Oral, QID, 12/16/22 8:26:00 EDT sotalol, Start: 12/15/22 9:59:00 EDT, Dose = 40 mg, = 0.5 tab(s), Oral, BID, 12/15/22 9:59:00 EDT Complete EKG Comments: Entered secondary to EKG order. Echocardiogram, Adult (AOH) Electrocardiogram [AOH] I spent a total of 30 minutes reviewing the patient's diagnostic test, labs, information including past medical history and medications, seeing the patient, and documenting in the record. I reviewed the most recent cardiac testing, labs, and answered questions. This note was generated using a voice recognition system. There may be incorrect words, spelling's,and punctuation that were missed in checking this note before saving. [1] Consult Note; NIKO MARTÍNEZ 12/15/2022 10:32 EDT Digitally Signed by NIKO MARTÍNEZ on 12/16/2022 08:38 AM [facility]10-02-2023 Note Date of Service 12/15/2022 Chief Complaint A-fib RVR Subjective 82-year-old male with past medical history significant for atrial fibrillation anticoagulated with apixaban, combined systolic and diastolic heart failure, CAD, HTN, HLD, JORGE on CPAP, COPD/interstitial lung disease, GERD, BPH, asbestos exposure, anxiety/depression, chronic back pain, psoriasis. Patient presented to [facility] emergency department on 12/13/2022 with reports of feeling himself going into atrial fibrillation this morning. He was advised by cardiology to take an additionalCoreg 3.125 mg when this occurred. He did and this was ineffective. In the emergency department he was afebrile, heart rate was in the 140s, blood pressure 90s systolic. Oxygen saturation 90% on roomair. He was given Cardizem IV push with improvement in rate however with any physical activity his heart rate increased into the 120s. He was then initiated on a Cardizem drip. His blood pressure diddrop into mid 80s systolic. He received a total of 1 L normal saline. White blood cell count 10,900, H&H stable at 13.6 and 39% respectively. Glucose 122. Remainder of BMP unremarkable. Patient was subsequently admitted for further evaluation. Patient received digoxin yesterday and today. He did need to be restarted on Cardizem drip overnight due to persistent A-fib with RVR. He was on supplemental oxygen this morning. This was removed andhe was having adequate oxygen saturations on room air. He has no chest pain or increased dyspnea. Objective Vitals and Measurements T: 36.3 C (Oral) TMIN: 36.3 C (Oral) TMAX: 36.8 C (Oral) HR: 77(Monitored) RR: 22 BP: 102/68 SpO2: 96% WT: 86.5 kg Intake and Output 7AM Yesterday to 7AM Today Intake and Output (Last 24 hours) Intake Oral Intake 500.00 Output Urine Voided 1430.00 Total Summary Total Intake 500.00 Total Output 1430.00 Fluid Balance -930.00 Physical Exam GEN: Appears chronically ill THROAT: Oral cavity and pharynx pink and moist. CHEST: Normal S1 and S2. Rhythm is irregularly irregular. Clear to auscultation, without rales, rhonchi, wheezing. ABD: Positive bowel sounds x 4 quads. Soft, nondistended, nontender. EXT: No significant deformity or joint abnormality. No edema. Peripheral pulses intact. NEURO: Sensation grossly intact SKIN: Skin color normal PSYCH: The mental examination revealed the patient was alert and oriented x 4 Weight Current Weight Dosing Weight: 86.7 kg (12/13/22) Current Weight: 86.5 kg (12/15/22) Current Weight: 86.7 kg (12/14/22) Medications Medications (15) Active Scheduled: (9) apixaban 2.5 mg tablet 5 mg 2 tab(s), Oral, BID atorvastatin 10 mg tablet 10 mg 1 tab(s), Oral, qHS budesonide 0.5 mg/2 mL Susp UD 0.5 mg 2 mL, Inhalation, BIDRT carvedilol 3.125 mg tablet 6.25 mg 2 tab(s), Oral, BIDM duloxetine [address] capsule 120 mg 2 cap(s), Oral, qDay guaifenesin 600 mg ER 600 mg 1 tab(s), Oral, q12h ipratropium 0.02% (0.5mg/2.5mL) UD 0.5 mg 2.5 mL, Inhalation, QIDRT sotalol 80 mg Tablet 40 mg 0.5 tab(s), Oral, BID tamsulosin 0.4 mg Capsule 0.8 mg 2 cap(s), Oral, qHS Continuous: (2) diltiazem 125 mg [5 mg/hr] + Sodium Chloride 0.9% 100 mL 100 mL, Intravenous, 5 mL/hr NS (0.9% nacl) 1,000 mL 1,000 mL, Intravenous, 20 mL/hr PRN: (4) acetaminophen 325 mg Tablet 650 mg 2 tab(s), Oral, q4h acetaminophen 325 mg Tablet 650 mg 2 tab(s), Oral, q4h LORAZEPam 0.5 mg tablet 0.5 mg 1 tab(s), Oral, qHS melatonin 3 mg tablet 3 mg 1 tab(s), Oral, qHS Lab Results 12/15 05:21 WBC: 10.5 Hgb: 13.2 L Hct: 38.4 L Platelet: 215 Neutrophil %: 75.2 Glucose Level: 116 H Sodium Level: 140 Potassium Level: 4.5 BUN: 13 Creatinine Lvl (s): 1.05 12/14 05:28 Glucose Level: 114 H Sodium Level: 141 Potassium Level: 4.7 BUN: 13 Creatinine Lvl (s): 1.21 Imaging Results and Diagnostics XR Chest 2 Views Result Date: December 15, 2022 Verified By: NINO LONGORIA MD CLINICAL STATEMENT: IMPRESSION: No acute cardiopulmonary process. Chronic changes in the lower lungs asdescribed. Question background of COPD. XR Chest 1 View Result Date: December 13, 2022 Verified By: MORTEZA COLBERT DO CLINICAL STATEMENT: IMPRESSION: The patchy bilateral ground-glass opacities could represent infectious orinflammatory process. Small left pleural effusion with adjacent left basilar atelectasis versusconsolidation. I have personally reviewed the images of this examination and agree with theresident's findings and inter pretation. EKG Electrocardiogram [AOH] (ECG [AOH]) - Ordered -- 12/16/22 7:00:00 EDT Assessment/Plan 1. Atrial fibrillation with RVR 3. JORGE on CPAP 4. COPD (chronic obstructive pulmonary disease) Afib with RVR-patient has a history of A-fib with RVR and follows with cardiology. Continue home dose of apixaban and Coreg. Patient received digoxin yesterday and today. He did need to be restarted on Cardizem drip overnight due to persistent A-fib with RVR. Cardiology STAFF CLIMATE SCIENTIST consulted and started sotalol 40 mg twice daily. Appreciate cardiology recommendations. 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 Patient appears euvolemic. JORGE on CPAP- CPAP as at home COPD- Not in acute exacerbation. DVT prophylaxis:apixiban Code Status:Full Code Plan of care discussed with patient and daughters. All questions answered. Patient verbalizes understanding is agreeable to plan of care. This dictation was performed using voice recognition software and may include grammatical and/or spelling errors. Time Spent 38 minutes was spent in [id number] time and coordination of care for this patient, including but not limited to personally gathering history, examining the patient, reviewing labs and images and records, counseling patient and/or family about diagnosis and potential workup if applicable, as detailed above as well as discussing the case with patient's interdisciplinary team where applicable. Digitally Signed by VIVIEN PLATA on 12/15/2022 01:58 PM [facility]10-02-2023 Note ORIGINAL EXAMINATION: TWO XRAY VIEWS OF THE CHEST12/15/2022 8:24 am COMPARISON: 12/13/2022 HISTORY: ORDERING SYSTEM PROVIDED HISTORY: Reason for Exam: hypoxia FINDINGS: Stable heart and mediastinum. No vascular congestion, consolidation, pleural effusion or pneumothorax. There are interstitial opacities in both lung bases and areas of bullous changes in the left base which are favored to be chronic and seem to be present on a CT chest of 10/27/2022 and to some extent on a chest radiograph of 02/14/2022. no acute skeletal abnormality. IMPRESSION: No acute cardiopulmonary process. Chronic changes in the lower lungs as described. Question background of COPD. Interpreted by: Nino Longoria MD Preliminary Report By: Nino Longoria MD Electronically signed By Nino Longoria MD Dictated Date: 12/15/2022 10:15:22 AM Prelim Date: 12/15/2022 10:17:31 AM Sign Date: 12/15/2022 10:17:31 AM Ordering Provider: VIVIEN [facility]10-01-2023 Evaluation + Plan noteExtracted from: Title:History and Physical Author:VIVIEN PLATA Date:12/14/22 1. Atrial fibrillation with RVR 2. Combined systolic and diastolic heart failure 3. JORGE on CPAP 4. COPD (chronic obstructive pulmonary disease) Afib with RVR-patient has a history of A-fib with RVR and follows with cardiology. Continue home dose of apixaban and Coreg. Nighttime provider ordered increased dose of Coreg and to stop Cardizem drip. Patient refused as he was worried about hypotension. Magnesium sulfate 2 g IV over 30 minutes. Digoxin 0.25 mg IV today as patient reports dizziness and hypotension with increased dose of coreg. Stop cardizem drip. Consult Cardiology STAFF CLIMATE SCIENTIST. Pt is known to her. 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 Patient appears euvolemic. JORGE on CPAP- CPAP as at home COPD- Not in acute exacerbation. DVT prophylaxis:apixiban Code Status:Full Code Plan of care discussed with patient. All questions answered. Patient verbalizes understanding is agreeable to plan of care. This dictation was performed using voice recognition software and may include grammatical and/or spelling errors. Future Appointments Appointment Date:12/19/2022 09:30:00 AM Scheduled Provider:MALISSA RASCON MD Location:[facility] Appointment Type:PC OV Appointment Date:12/23/2022 02:30:00 PM Scheduled Provider: Location:[facility] Appointment Type:MRI Spine Lumbar w/o Contrast Appointment Date:12/25/2022 01:15:00 PM Scheduled Provider:NIKO MARTÍNEZ Location:[facility] Appointment Type:CV OV Hospital Follow Up Appointment Date:01/09/2023 01:00:00 PM Scheduled Provider: Location:[facility] Appointment Type:CV OV Future Scheduled Tests Laboratory* Basic Metabolic Panel 03/22/23 * Basic Metabolic Panel 08/01/22 * Basic Metabolic Panel 06/30/22 * Basic Metabolic Panel 03/26/22 * Complete Blood Count 03/22/23 * Complete Blood Count 06/30/22 * N-Terminal proBNP 03/22/23 * N-Terminal proBNP 08/01/22 * N-Terminal proBNP 06/30/22 * N-Terminal proBNP 03/26/22 Radiology* NM Bone Imaging Whole Body 11/05/22 * MRI Spine Lumbar w/o Contrast 12/23/22 [facility] 10-01-2023 Note Date of Service 12/14/22 Chief Complaint Elevated HR since this AM. Hx afib; on eliquis. History of Present Illness 82-year-old male with past medical history significant for atrial fibrillation anticoagulated with apixaban, combined systolic and diastolic heart failure, CAD, HTN, HLD, JORGE on CPAP, COPD/interstitial lung disease, GERD, BPH, asbestos exposure, anxiety/depression, chronic back pain, psoriasis. Patient presented to [facility] emergency department on 12/13/2022 with reports of feeling himself going into atrial fibrillation this morning. He was advised by cardiology to take an additionalCoreg 3.125 mg when this occurred. He did and this was ineffective. In the emergency department he was afebrile, heart rate was in the 140s, blood pressure 90s systolic. Oxygen saturation 90% on roomair. He was given Cardizem IV push with improvement in rate however with any physical activity his heart rate increased into the 120s. He was then initiated on a Cardizem drip. His blood pressure diddrop into mid 80s systolic. He received a total of 1 L normal saline. White blood cell count 10,900, H&H stable at 13.6 and 39% respectively. Glucose 122. Remainder of BMP unremarkable. Patient was subsequently admitted for further evaluation. Overnight his rate remained controlled and blood pressure improved. He has JORGE and used home CPAP overnight. Oxygen saturation this morning on room air 92%. Denies any headaches or dizziness. No chest pain. No increased dypsnea, cough, wheeze. Denies nausea or vomiting. Review of Systems See HPI for specific ROS. All other systems reviewed and negative. Physical Exam Vitals and Measurements T: 37 C (Oral) TMIN: 36.7 C (Oral) TMAX: 37 C (Oral) HR: 86(Apical) RR: 22 BP: 100/81 SpO2: 92% HT: 172.7 cm WT: 86.7 kg BMI: 29.07 Weight Current Weight Dosing Weight: 86.7 kg (12/13/22) Current Weight: 86.7 kg (12/14/22) GEN: Appears chronically ill EYES: No conjunctival erythema, drainage. EOMI EARS: Hearing grossly intact. NOSE: No nasal discharge. THROAT: Oral cavity and pharynx pink and moist. CHEST: Normal S1 and S2. Rhythm is irregularly irregular. Clear to auscultation, without rales, rhonchi, wheezing. ABD: Positive bowel sounds x 4 quads. Soft, nondistended, nontender. EXT: No significant deformity or joint abnormality. No edema. Peripheral pulses intact. NEURO: Sensation grossly intact SKIN: Skin color normal PSYCH: The mental examination revealed the patient was alert and oriented x 4 Lab Results 12/14 05:28 Glucose Level: 114 H Sodium Level: 141 Potassium Level: 4.7 BUN: 13 Creatinine Lvl (s): 1.21 12/13 15:50 WBC: 10.9 H Hgb: 13.6 L Hct: 39.7 L Platelet: 242 Neutrophil %: 76.9 Glucose Level: 122 H Sodium Level: 141 Potassium Level: 4.4 BUN: 11 Creatinine Lvl (s): 1.06 Imaging Results and Diagnostics XR Chest 1 View Result Date: December 13, 2022 Verified By: MORTEZA COLBERT DO CLINICAL STATEMENT: IMPRESSION: The patchy bilateral ground-glass opacities could represent infectious orinflammatory process. Small left pleural effusion with adjacent left basilar atelectasis versusconsolidation. I have personally reviewed the images of this examination and agree with theresident's findings and inter pretation. Assessment/Plan 1. Atrial fibrillation with RVR 2. Combined systolic and diastolic heart failure 3. JORGE on CPAP 4. COPD (chronic obstructive pulmonary disease) Afib with RVR-patient has a history of A-fib with RVR and follows with cardiology. Continue home dose of apixaban and Coreg. Nighttime provider ordered increased dose of Coreg and to stop Cardizem drip. Patient refused as he was worried about hypotension. Magnesium sulfate 2 g IV over 30 minutes. Digoxin 0.25 mg IV today as patient reports dizziness and hypotension with increased dose of coreg. Stop cardizem drip. Consult Cardiology STAFF CLIMATE SCIENTIST. Pt is known to her. 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 Patient appears euvolemic. JORGE on CPAP- CPAP as at home COPD- Not in acute exacerbation. DVT prophylaxis:apixiban Code Status:Full Code Plan of care discussed with patient. All questions answered. Patient verbalizes understanding is agreeable to plan of care. This dictation was performed using voice recognition software and may include grammatical and/or spelling errors. Problem List/Past Medical History Ongoing (HFpEF) heart failure with preserved ejection fraction Acid reflux Acute sinusitis Arthritis Asbestosis Atrial fibrillation Back pain BPH with urinary obstruction CAD in ak chin artery Chronic bronchitis Chronic hip pain Chronic insomnia Chronic low back pain Chronic neck pain Constipation COPD (chronic obstructive pulmonary disease) COPD exacerbation Depression Elevated glucose Enlarged prostate Essential hypertension Fatigue GERD (gastroesophageal reflux disease) Glasses Hypercholesterolemia Insomnia LABYRINTHINE DYSFUNCTION Left buttock pain Left hip pain Low back pain Low back pain Lower extremity weakness Lumbar nerve root injury inpingement Lumbosacral radiculitis Lumbosacral radiculopathy Major depressive disorder Mild anemia Mixed hyperlipidemia Muscle weakness Need for vaccination Oral thrush JORGE (obstructive sleep apnea) Osteoarthrosis Palpitations Paroxysmal atrial fibrillation Psoriasis Right shoulder pain Shortness of breath on exertion Shoulder bursitis Spinal stenosis Upper back pain on right side Urinary incontinence Vitamin B12 deficiency Historical No qualifying data Procedure/Surgical History Holter monitor: 04/04/22 Echocardiogram: 03/10/22 Echocardiogram: 10/11/21 CT of thorax: 10/11/21 Cardiac catheterization: 05/27/21 Cardiac catheterization: 05/27/21 Cardiovascular stress testin05/20/21 Stress echocardiography using dobutamine: 08/04/18 Stress echocardiography: 08/04/18 Echocardiography: 08/02/18 Echocardiogram: 08/02/18 Echocardiogram: 03/18/17 Cardiovascular stress testin02/24/17 Laminectomy: 06/01/14 Colonoscopy: 12/23/12 Hernia repair: 1998 ORIF - Open reduction and internal fixation of fracture: 1980 Appendectomy: 194 Appendectomy Hemorrhoidectomy Medications Home Medications (15) Active albuterol 5 mg/mL (0.5%) inhalation solution 2.5 mg = 0.5 mL, Inhalation, QID budesonide 1 mg/2 mL inhalation suspension 0.5 mg = 1 mL, Inhalation, BID carvedilol 6.25 mg oral tablet 6.25 mg = 1 tab(s), Oral, BID Cymbalta 60 mg oral delayed release capsule 120 mg = 2 cap(s), Oral, qDay Eliquis 5 mg oral tablet 5 mg = 1 tab(s), Oral, BID Flomax 0.4 mg oral capsule 0.8 mg = 2 cap(s), Oral, qHS LORazepam 0.5 mg oral tablet 0.5 mg = 1 tab(s), Oral, qHS Mucinex 600 mg oral tablet, extended release 600 mg = 1 tab(s), Oral, q12h nitroglycerin 0.4 mg sublingual tablet 0.4 mg = 1 tab(s), PRN, Sublingual, q5min rosuvastatin 5 mg oral tablet 5 mg = 1 tab(s), Oral, Daily Stiolto Respimat 60 ACT 2.5 mcg-2.5 mcg/inh inhalation aerosol 2 puff(s), Inhalation, qDay Tagamet HB 200 mg oral tablet 200 mg = 1 tab(s), PRN, Oral Tagamet HB 200 mg oral tablet (NF) 200 mg = 1 tab(s), PRN Vitamin B12 Vitamin D3 , qDay Allergies NKA Social History Smoking Status - 01/04/2018 Former smoker Alcohol - Denies Alcohol Use, 04/27/2017 Use: Current. 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 Self described orientation: Straight or heterosexual., 12/13/2022 Substance Abuse - Denies Substance Abuse, 04/27/2017 Use: Never., 09/27/2018 Tobacco Tobacco Use: Former smoker, quit more than 30 days ago., 09/27/2018 Family History COPD: Mother. Coronary artery disease: Grandparent. Emphysema of lung: Mother. Heart disease: Negative: Father. Immunizations pneumococcal 13-valent conjugate vaccine: 0 unknown unit (12/24/15) pneumococcal 23-valent vaccine(Pneumovax: 0 unknown unit (07/11/13) pneumococcal 23-valent vaccine(Pneumovax: 0 unknown unit (05/11/06) SARS-CoV-2 (COVID-19) mRNA-1273 vaccine: 0.25 unknown unit (01/10/21) SARS-CoV-2 (COVID-19) mRNA-1273 vaccine: 100 unknown unit (05/11/20) SARS-CoV-2 (COVID-19) mRNA-1273 vaccine: 100 unknown unit (04/13/20) tetanus-diphtheria toxoids: 0 unknown unit (08/27/13) Code Status Code Status - Ordered -- 12/13/22 17:40:00 EDT, Full Code, Constant Order Digitally Signed by VIVIEN PLATA on 12/14/2022 10:41 AM [facility]09-30-2023 Note ORIGINAL EXAMINATION: ONE XRAY VIEW OF THE CHEST 12/13/2022 3:53 pm COMPARISON: Chest x-ray 11/19/2022 HISTORY: ORDERING SYSTEM PROVIDED HISTORY: Reason for Exam: chest pain FINDINGS: The cardiomediastinal silhouette is stable. There are patchy ground-glass opacities. Similar linear scarring versus atelectasis at the lower left lung. Suspect small left pleural effusion with adjacent atelectasis versus consolidation. No pneumothorax. IMPRESSION: The patchy bilateral ground-glass opacities could represent infectious or inflammatory process. Small left pleural effusion with adjacent left basilar atelectasis versus consolidation. I have personally reviewed the images of this examination and agree with the resident's findings and interpretation. Interpreted by: Morteza Colbert DO Preliminary Report By: Katiana Ley Electronically signed By Morteza Colbert DO Dictated Date: 12/13/2022 3:58:15 PM Prelim Date: 12/13/2022 4:01:07 PM Sign Date: 12/13/2022 4:03:36 PM Ordering Provider: [facility]09-30-2023 Note Atrial fibrillation with rapid V-rate Left anterior fascicular block Abnormal R-wave progression, late transition Electronic Signature: JEFFERY JOHNSON DO 12/13/2022 15:34:[address] [place] [address] 09-18-2023 Note ORIGINAL EXAMINATION: WHOLE BODY BONE SCAN12/01/2022 1:44 pm TECHNIQUE: The patient received an intravenous injection of 30.6 millicuries of Tc-99m MDP. Immediate dynamic planar perfusion images of the pelvis were acquired followed by static planar early blood pool images. After approximately 3h, multiple delayed static planar images were then acquired. Delayed Anterior and posterior planar images of the skeleton from skull vertex to feet were also obtained. COMPARISON: November 24, 2022 radiographs HISTORY: ORDERING SYSTEM PROVIDED HISTORY: Reason for Exam: rule out occult fracture FINDINGS: Early phase images demonstrate very slight posterior left gluteal hyperemia. No additional area of abnormal early phase radiotracer deposition. Delayed osseous phase images demonstrate asymmetric mild uptake of the left greater trochanter. No intense radiotracer deposition to suggest acute or subacute fracture. Whole body images demonstrate mild areas of uptake in an arthritic pattern involving the shoulders, sternoclavicular joints, thoracic spine, knees. Foci over the right mandible and left maxilla are likely periodontal in etiology. Activity in the bilateral kidneys and the urinary bladder represent normal route of radiopharmaceutical excretion. IMPRESSION: 1. No convincing evidence of acute or subacute pelvic fracture. 2. Mild radiotracer at the left greater trochanter can be seen with trochanteric bursitis. 3. Slight left posterior gluteal may represent posttraumatic soft tissue inflammation. Interpreted by: Abhilash Llamas DO Preliminary Report By: Abhilash Llamas DO Electronically signed By Abhilash Llamas DO Dictated Date: 12/01/2022 4:04:18 PM Prelim Date: 12/01/2022 4:10:08 PM Sign Date: 12/01/2022 4:10:08 PM [facility]23 Hospital Discharge instructions Patient Education 11/19/2022 12:33:17 About Arrhythmias About Arrhythmias Electrical impulses cause the normal heart to beat 60 to 100 times a minute while at rest. These impulses come from a natural pacemaker deep inside the heart muscle. Each impulse causes the heart muscle to contract. This causes the blood to flow through the heart and out to the tissues and organs of your body. An arrhythmia is a change from the normal speed or pattern of these electrical impulses. This can cause the heart to beat too fast (tachycardia); or too slow (bradycardia); or in an unsteady pattern (irregular rhythm). Symptoms of arrhythmias Different people experience arrhythmias differently. Sometimes they may not have symptoms, but justnotice a change in their pulse. Symptoms can include: Fluttering feeling in the chest Shortness of breath Chest pain or pressure Neck fullness Lightheadedness or dizziness Fainting or almost fainting Palpitations (the sense that your heart is fluttering or beating fast or hard or irregularly) Tiredness, fatigue, or weakness Cardiac arrest Causes of arrhythmias Arrhythmias are most often due to heart disease such as: Coronary artery disease Heart valve disease Enlarged heart High blood pressure Heart failure Other causes of arrhythmia include: Certain medicines (such as asthma inhalers and decongestants) Some herbal supplements Cardiac stimulant drugs (such as cocaine, amphetamine, diet pills, certain decongestant cold medicines, caffeine, and nicotine) Excessive alcohol use Anxiety and panic disorder Thyroid disease Anemia Diabetes Sleep apnea Obesity Congenital heart disease Cardiac genetic diseases Arrhythmias can often be prevented. The cause and type of arrhythmia determines the best treatment.Sometimes your doctor may want to monitor your heart rate over a 24-hour period or longer. This canhelp identify the cause of your arrhythmia and find the best treatment. This can be done with a Holter monitor, a portable EKG recording device attached by wires to your chest. Or you may get an event monitor, which you can place over the skin in front of your heart to record heart rhythms. You cancarry this with you as you go about your routine activities during the monitoring period. Implantable loop recorders may also be used to monitor the heart rhythm for up to 2 years. This miniature device is placed underneath the skin overlying the heart. Home care The following guidelines will help you care for yourself at home: Avoid cardiac stimulants (such as cocaine, amphetamine, diet pills, certain decongestant cold medicines, caffeine, and nicotine). If you smoke, stop smoking. Contact your doctor or a local stop-smoking program for help. Tell your doctor about any prescription, [id number]-katlhst, or herbal medicines you take. These may be affecting your heart rhythm. Follow-up care Follow up with your healthcare provider, or as advised. If a Holter monitor has been recommended, contact the economic development director you have been referred to as soon as you can cotton picking machine operator the device. Other outpatient tests may also be arranged for you at that time. Call 911 This is the fastest and safest way to get to the emergency department. The paramedics can also start treatment on the way to the hospital, if needed. Don't wait until your symptoms are severe to call 911. Other reasons to call 911 besides chest paininclude: Chest, shoulder, arm, neck, or back pain Shortness of breath Feeling lightheaded, faint, or dizzy Unexplained fainting Rapid heart beat Slower than usual heart rate compared to your normal Very irregular heartbeat Chest pain (angina) with weakness, dizziness, heavy sweating, nausea, or vomiting Extreme drowsiness, or confusion Weakness of an arm or leg or one side of the face Difficulty with speech or vision When to seek medical advice Remember, things are not always like they are on TV. Sometimes it is not so obvious. You may only feel weak or just not right. If it is not clear or if you have any doubt, call for advice. Seek help for chest pain, or it feels different from usual, even if your symptoms are mild. Don't drive yourself. Have someone else drive. If no one can drive you, call 911. If your doctor has given you medicines to take when you have symptoms, take them, but don't delay getting help while trying to find them. 5400-[address] [employer]. [address] [place] [address]. All rights reserved. This information is not intended as a substitute for professional medical care. Always follow yourhealthcare professional's instructions. Follow Up Care 11/19/2022 10:45:41 With:AZAR KAHN MD Address: [facility] [address] [facility] [place] [address] [phone] When:2-4 days [facility] 09-06-2023 Note Discharge Instructions Thank you for allowing [facility] to assist you with your healthcare needs. The following is importantdischarge information regarding your hospital visit. Diagnosis from Today's Visit Palpitations Tachycardia What to Do Next Instructions from Your Care Team increased your carvedilol to 6.25 mg twice a day if you are suffering from weakness/fatigue at this higher dose then discuss with cardiology alternative treatments. No qualifying data available. Post Acute Orders No qualifying data available. You Need to Schedule the Following Appointments Follow Up with AZAR KAHN MD When Within 2-4 days Where: [address] [facility] [address] [phone] Allergies NKA Medications Please ask your primary doctor or pharmacist before taking any other medication not listed, including over the counter drugs, herbal medications, vitamins and or supplements as they may interact withyour home medications. What How Much When Why Instructions Last Dose Unchanged albuterol (albuterol 5 mg/ mL (0.5%) inhalation solution) 0.5 Milliliter by inhalation Four (4) times a day 0.5 ML ADDED TO NEBULIZER WITH BUDESONIDE 4 TIMES A DAY Unchanged apixaban (Eliquis 5 mg oral tablet) 1 tab(s) by mouth Two (2) times a day Unchanged budesonide (budesonide 1 mg/ 2 mL inhalation suspension) 1 Milliliter by inhalation Two (2) times a day Duration: 30 Days Unchanged carvedilol (carvedilol 6.25 mg oral tablet) 0.5 tab(s) by mouth Two (2) times a day Duration: 30 Days Unchanged cholecalciferol (Vitamin D3) Once a day Unchanged cimetidine (Tagamet HB 200 mg oral tablet (NF)) 1 tab(s) As needed for Heartburn Unchanged cyanocobalamin (Vitamin B12 1000 mcg oral tablet) 1 tab(s) by mouth Two (2) times a day Vitamin B12 deficiency Unchanged DULoxetine (Cymbalta 60 mg oral delayed release capsule) 2 cap by mouth Once a day Right shoulder pain Back pain Duration: 90 Days Unchanged guaiFENesin (Mucinex 600 mg oral tablet, extended release) 1 tab(s) by mouth Every 12 hours Unchanged LORazepam (LORazepam 0.5 mg oral tablet) 1 tab(s) by mouth Daily at bedtime Chronic insomnia Duration: 90 Days Unchanged nitroGLYcerin (nitroglycerin 0.4 mg sublingual tablet) 1 tab(s) under the tongue Every 5 minutes as needed for for chest pain Angina pectoris, 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 Bring all medications you take, including over the counter medications, herbals and other supplements with you to your doctor s visit. Patients and families are reminded to discard old lists and to update any records with all medication providers or retail pharmacies. Education Materials About Arrhythmias Electrical impulses cause the normal heart to beat 60 to 100 times a minute while at rest. These impulses come from a natural pacemaker deep inside the heart muscle. Each impulse causes the heart muscle to contract. This causes the blood to flow through the heart and out to the tissues and organs of your body. An arrhythmia is a change from the normal speed or pattern of these electrical impulses. This can cause the heart to beat too fast (tachycardia); or too slow (bradycardia); or in an unsteady pattern (irregular rhythm). Symptoms of arrhythmias Different people experience arrhythmias differently. Sometimes they may not have symptoms, but justnotice a change in their pulse. Symptoms can include: Fluttering feeling in the chest Shortness of breath Chest pain or pressure Neck fullness Lightheadedness or dizziness Fainting or almost fainting Palpitations (the sense that your heart is fluttering or beating fast or hard or irregularly) Tiredness, fatigue, or weakness Cardiac arrest Causes of arrhythmias Arrhythmias are most often due to heart disease such as: Coronary artery disease Heart valve disease Enlarged heart High blood pressure Heart failure Other causes of arrhythmia include: Certain medicines (such as asthma inhalers and decongestants) Some herbal supplements Cardiac stimulant drugs (such as cocaine, amphetamine, diet pills, certain decongestant cold medicines, caffeine, and nicotine) Excessive alcohol use Anxiety and panic disorder Thyroid disease Anemia Diabetes Sleep apnea Obesity Congenital heart disease Cardiac genetic diseases Arrhythmias can often be prevented. The cause and type of arrhythmia determines the best treatment.Sometimes your doctor may want to monitor your heart rate over a 24-hour period or longer. This canhelp identify the cause of your arrhythmia and find the best treatment. This can be done with a Holter monitor, a portable EKG recording device attached by wires to your chest. Or you may get an event monitor, which you can place over the skin in front of your heart to record heart rhythms. You cancarry this with you as you go about your routine activities during the monitoring period. Implantable loop recorders may also be used to monitor the heart rhythm for up to 2 years. This miniature device is placed underneath the skin overlying the heart. Home care The following guidelines will help you care for yourself at home: Avoid cardiac stimulants (such as cocaine, amphetamine, diet pills, certain decongestant cold medicines, caffeine, and nicotine). If you smoke, stop smoking. Contact your doctor or a local stop-smoking program for help. Tell your doctor about any prescription, pysh-sph-mkmveqc, or herbal medicines you take. These may be affecting your heart rhythm. Follow-up care Follow up with your healthcare provider, or as advised. If a Holter monitor has been recommended, contact the economic development director you have been referred to as soon as you can cotton picking machine operator the device. Other outpatient tests may also be arranged for you at that time. Call 911 This is the fastest and safest way to get to the emergency department. The paramedics can also start treatment on the way to the hospital, if needed. Don't wait until your symptoms are severe to call 911. Other reasons to call 911 besides chest paininclude: Chest, shoulder, arm, neck, or back pain Shortness of breath Feeling lightheaded, faint, or dizzy Unexplained fainting Rapid heart beat Slower than usual heart rate compared to your normal Very irregular heartbeat Chest pain (angina) with weakness, dizziness, heavy sweating, nausea, or vomiting Extreme drowsiness, or confusion Weakness of an arm or leg or one side of the face Difficulty with speech or vision When to seek medical advice Remember, things are not always like they are on TV. Sometimes it is not so obvious. You may only feel weak or just not right. If it is not clear or if you have any doubt, call for advice. Seek help for chest pain, or it feels different from usual, even if your symptoms are mild. Don't drive yourself. Have someone else drive. If no one can drive you, call 911. If your doctor has given you medicines to take when you have symptoms, take them, but don't delay getting help while trying to find them. [id number] [employer]. [address] [place] [address], [place] [address]. All rights reserved. This information is not intended as a substitute for professional medical care. Always follow yourhealthcare professional's instructions. Additional Information VACCINATE! IT SAVES LIVES! Members of the community who have not yet received the COVID-19 vaccine and would like to receive it can visit one of [facility] vaccine clinics. There are many vaccine clinic locations within the [facility]. For locations and available times, please visit www.[email or web address].[place].gov/. It is important to note that some COVID mobile vaccine clinics are held outdoors and may be canceled in rainy or stormy conditions. To learn more about pediatric vaccinations (ages 5-11), we invite you to visit the [facility] webpage. https://www.[email or web address].org/pages/6103-Wcbot-Wzonuxyhzxc-Rvueavzcuz-Vvpke-[email or web address] stions.htmlTo learn more about the COVID-19 vaccine, we invite you to visit the CDC website for a list of frequently asked questions. https://www.cdc.gov/coronavirus/2019-ncov/vaccines/faq.html [facility] Patient Portal Access Instructions: Stay connected with your healthcare team and access your personal medical information anytime with the [facility] Patient Portal. If you would like a full copy of your medical records please contact the [facility] Medical Records Department Thursday through Thursday between 8a.m. and 4:30p.m. Please follow the directions below to access the portal: 1.Access the email account you provided upon registration to the hospital.2.Look for an invitation email from [facility].3.Open the email and access the invitation link: Accept Invitation to [facility]4.Fill in the required banks to create your account. Sign into [email or web address] with your username and password that you created in the above steps to stay up to date. You can then view a summary of results, a summary of your visits, and the ability to download your summaries to your computer or send the information securely to a physician. Remember that your healthcare information is confidential, so carefully consider who you will allow to register on the [employer] Patient Portal for access to your information. You can also access the [employer] Patient Portal on the [employer] tip. Simply click on Health Records under codetag and then click on the [email or web address] logo. HOW TO SAFELY DISPOSE OF PRESCRIPTION MEDICATIONS Please use one of the following methods to safely dispose of your unused medications. 1.Use a drug disposal kit: the drug disposal pouch allows you to safely discard your old and unuseddrugs. Ask your nurse to give you one when you are discharged.2.Visit a local take-back location: Many local pharmacies and police departments have programs that collect old and unwanted prescriptiondrugs. Call your local pharmacy or go to http://Barburrito.NovoPedics/1E5Rx7e to find one close to you.3.Make use of household items: Use cat litter or old coffee grounds to dispose medications if other options arenot available. Mix your drugs with these household products, seal them in an airtight container andthrow it into the garbage. Call [facility]: [phone] to be sure your drugs can be disposed of in this way. Some medicines may require a different approach.4.Never flush your medications down the toilet. IF YOU HAVE BEEN PRESCRIBED AN OPIOIDS FOR PAIN If you have been prescribed an opioid (such as hydrocodone, oxycodone or morphine), it is critical to understand the possible side effects and risks of opioid pain medications. Even when taken as directed, opioids can have several side effects including: Tolerance, meaning you might need to take more of a medication for the same pain relief. Nausea, vomiting and/or constipation. Sleepiness, dizziness, dry mouth, confusion, depression or itching. Physical dependence, meaning you have withdrawal symptoms when a medication is stopped ? this can develop within a few days. KNOW YOUR RESPONSIBILITIES It is important to know exactly how much and how often to take the opioid pain medications you are prescribed. Never take opioids in higher amounts or more often than prescribed. Do not combine opioids with alcohol or other drugs that cause drowsiness, such as benzodiazepines, also known as benzos,including diazepam and alprazolam, muscle relaxants or sleep aids. Never sell or share prescriptionopioids. This is illegal. Store opioids in a secure place and out of reach of others (including children, family, friends and visitors). The last page(s) of this document has been signed and retained as a CHART COPY Signatures Patient Education Materials About Arrhythmias Medication Leaflets My discharge plan and instructions have been reviewed and explained to me and I,HIRAM DORAN understand my current condition and have read and understand these discharge instructions. I have received a written copy of the plan/instructions. If I have questions, I am aware that I should contact my d octor. 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 Chest radiograph 10/09/2022. HISTORY: ORDERING SYSTEM PROVIDED HISTORY: Reason for Exam: chest pain FINDINGS: Borderline enlarged heart. Mild atherosclerosis of the aorta. Low lung volumes. Mild bibasilar streaky opacities. There is coarsening of the interstitium without florid congestion no large pleural effusion. No visible pneumothorax. No definite acute skeletal abnormality. IMPRESSION: 1. Similar mild bibasilar subsegmental atelectasis and/or scarring. Similar interstitial coarsening. Interpreted by: Morteza Collado DO Preliminary Report By: Morteza Collado DO Electronically signed By Morteza Collado DO Dictated Date: 11/19/2022 11:30:53 AM Prelim Date: 11/19/2022 11:32:52 AM Sign Date: 11/19/2022 11:32:52 AM [facility]ing [facility] NoteJunctional tachycardia Left axis deviation ST depression, probably rate related Electronic Signature: JANIA SMALLWOOD MD 11/19/2022 11:09:21[facility] 03-17-2023 Hospital Discharge instructions Patient Education 05/29/2022 23:43:52 Understanding Atrial Fibrillation Understanding Atrial Fibrillation An arrhythmia is any problem with the speed or pattern of the heartbeat. Atrial fibrillation (AFib)is the most common type of arrhythmia. It causes fast, chaotic electrical signals in the atria. This makes it hard for the heart to work as it should. It also affects how much blood your heart can pump out to the body. AFib may occur once in a while and go away on its own. Or it may continue for longer periods and need treatment. AFib can lead to serious problems, such as stroke. Your healthcare provider will need to monitor and manage it. What happens during atrial fibrillation? The heart has an electrical system that sends signals to control the heartbeat. As signals move through the heart, they tell the heart s upper chambers (atria) and lower chambers (ventricles) when tosqueeze (contract) and relax. This lets blood move through the heart and out to the body and lungs. With AFib, the atria receive abnormal signals. This causes them to contract in a fast and irregularway, and out of sync with the ventricles. When this happens, the atria also have a harder time moving blood into the ventricles. Blood may then pool in the atria. This increases the risk for blood clots and stroke. The ventricles also may contract too quickly and irregularly. As a result, they may not pump blood to the body and lungs as well as they should. This can weaken the heart muscle over time and cause heart failure. What causes atrial fibrillation? AFib is more common in older adults. It has many possible causes: Coronary artery disease Heart valve disease Heart attack Heart surgery High blood pressure Thyroid disease Diabetes Lung disease Sleep apnea Heavy alcohol use In some cases of AFib, doctors don't know the cause. What are the symptoms of atrial fibrillation? AFib may not cause symptoms. If symptoms do occur, they may include: A fast, pounding, irregular heartbeat Shortness of breath Tiredness Dizziness or fainting Chest pain How is atrial fibrillation treated? Treatments for AFib can include any of the options below. Medicines. You may be prescribed: oHeart rate medicines to help slow down the heartbeat oHeart rhythm medicines to help the heart beat more regularly oBlood thinners or anti-clotting medicines to help reduce the risk for blood clots and stroke. Left atrial appendage closure. Your healthcare provider may advise this device to prevent stroke. You may need if you are at high risk for stroke but have problems taking blood-thinner (anticoagulant) medicines. The device is placed in the part of the heart where most clots form. This area is called the left atrial appendage (CHAD). It's a pouch-like structure in the muscle wall of the left atrium. The device closes off the CHAD to prevent clots moving from the heart to the brain and causing a stroke. Electrical cardioversion. Your healthcare provider uses special pads or paddles to send one or morebrief electrical shocks to the heart. This can help reset the heartbeat to normal. Ablation. Long, thin tubes (catheters) are threaded through a blood vessel to the heart. There, thecatheters send out hot or cold energy to the areas causing the abnormal signals. This energy destroys the problem tissue or cells. This improves the chances that your heart will stay in normal rhythmwithout using medicines. If your heart rate and rhythm can t be controlled, you may need ablation and a pacemaker. These will help control the heart rate and regularity of the heartbeat. Surgery. During surgery, your healthcare provider may use different methods to create scar tissue in the areas of the heart causing the abnormal signals. The scar tissue disrupts the abnormal signalsand may stop AFib from occurring. Hybrid surgical-catheter ablation for AFib. This treatment is used for people with AFib that continues or is hard to treat.. It combines surgery with a catheter ablation. During the surgery, the surgeon makes small cuts (incisions) between the ribs in the chest or in the abdomen near the sternum. The surgeon puts a scope through the incisions to get to the backside of the heart. The catheter portion of the procedure is done by putting a catheter into a vein in the groin. The catheter is guided to the inside of the heart. Using the catheter, radiofrequency ablation is done to destroy the tissue inside the heart that is causing the AFib. Using both of these approaches may work better to blockthe abnormal electrical signals and be a more permanent treatment for persistent AFib. What are possible complications of atrial fibrillation? Complications can include: Blood clots Stroke Heart failure. This problem occurs when the heart muscle weakens so much that it can no longer pumpblood well. When should I call my healthcare provider? Call your healthcare provider right away if you have any of these: Symptoms that don t get better with treatment, or get worse New symptoms [id number] [employer]. [address] [place] [address]. All rights reserved. This information is not intended as a substitute for professional medical care. Always follow yourhealthcare professional's instructions. Follow Up Care 05/29/2022 23:20:28 With:MALISSA RASCON MD Address: [place] [address]- When:2-4 days [facility] 03-16-2023 Note Discharge Instructions Thank you for allowing [facility] to assist you with your healthcare needs. The following is importantdischarge information regarding your hospital visit. Diagnosis from Today's Visit Sinus rhythm - pulse What to Do Next Instructions from Your Care Team No qualifying data available. Post Acute Orders No qualifying data available. You Need to Schedule the Following Appointments Follow Up with MALISSA RASCON MD When Within 2-4 days Where: [address] [place], [place] [id number]- Allergies NKA Medications Please ask your primary doctor or pharmacist before taking any other medication not listed, including over the counter drugs, herbal medications, vitamins and or supplements as they may interact withyour home medications. What How Much When Why Instructions Last Dose Unchanged acetaminophen (Tylenol Extra Strength 500 mg oral tablet) 1 tab(s) by mouth Every 4 hours as needed for as needed for pain Unchanged albuterol (albuterol 5 mg/ mL (0.5%) inhalation solution) 0.5 Milliliter by inhalation Four (4) times a day 0.5 ML ADDED TO NEBULIZER WITH BUDESONIDE 4 TIMES A DAY Unchanged apixaban (Eliquis 5 mg oral tablet) 1 tab(s) by mouth Two (2) times a day Unchanged budesonide (budesonide 1 mg/ 2 mL inhalation suspension) 1 Milliliter by inhalation Two (2) times a day Duration: 30 Days Unchanged bumetanide (bumetanide 0.5 mg oral tablet) 1 tab(s) by mouth Every day Unchanged carvedilol (Coreg 6.25 mg oral tablet) 1 tab(s) by mouth Twice daily with meals Unchanged cholecalciferol (Vitamin D3) Once a day Unchanged cimetidine (Tagamet HB 200 mg oral tablet (NF)) 1 tab(s) As needed for Heartburn Unchanged cyanocobalamin (Vitamin B12 1000 mcg oral tablet) 1 tab(s) by mouth Two (2) times a day Vitamin B12 deficiency Unchanged empagliflozin (empagliflozin 10 mg oral tablet) 1 tab(s) by mouth Once a day (in the morning) Unchanged finasteride (finasteride 5 mg oral tablet) 1 tab(s) by mouth Once a day Duration: 90 Days Unchanged guaiFENesin (Mucus Relief ER 1200 mg oral tablet, extended release) 1 tab(s) by mouth Once a day (in the morning) Unchanged LORazepam (LORazepam 0.5 mg oral tablet) 1 tab(s) by mouth Daily at bedtime Insomnia Duration: 30 Days Unchanged nitroGLYcerin (nitroglycerin 0.4 mg sublingual tablet) 1 tab(s) under the tongue Every 5 minutes as needed for for chest pain Angina pectoris, 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 Bring all medications you take, including over the counter medications, herbals and other supplements with you to your doctor s visit. Patients and families are reminded to discard old lists and to update any records with all medication providers or retail pharmacies. Education Materials Understanding Atrial Fibrillation An arrhythmia is any problem with the speed or pattern of the heartbeat. Atrial fibrillation (AFib)is the most common type of arrhythmia. It causes fast, chaotic electrical signals in the atria. This makes it hard for the heart to work as it should. It also affects how much blood your heart can pump out to the body. AFib may occur once in a while and go away on its own. Or it may continue for longer periods and need treatment. AFib can lead to serious problems, such as stroke. Your healthcare provider will need to monitor and manage it. What happens during atrial fibrillation? The heart has an electrical system that sends signals to control the heartbeat. As signals move through the heart, they tell the heart s upper chambers (atria) and lower chambers (ventricles) when tosqueeze (contract) and relax. This lets blood move through the heart and out to the body and lungs. With AFib, the atria receive abnormal signals. This causes them to contract in a fast and irregularway, and out of sync with the ventricles. When this happens, the atria also have a harder time moving blood into the ventricles. Blood may then pool in the atria. This increases the risk for blood clots and stroke. The ventricles also may contract too quickly and irregularly. As a result, they may not pump blood to the body and lungs as well as they should. This can weaken the heart muscle over time and cause heart failure. What causes atrial fibrillation? AFib is more common in older adults. It has many possible causes: Coronary artery disease Heart valve disease Heart attack Heart surgery High blood pressure Thyroid disease Diabetes Lung disease Sleep apnea Heavy alcohol use In some cases of AFib, doctors don't know the cause. What are the symptoms of atrial fibrillation? AFib may not cause symptoms. If symptoms do occur, they may include: A fast, pounding, irregular heartbeat Shortness of breath Tiredness Dizziness or fainting Chest pain How is atrial fibrillation treated? Treatments for AFib can include any of the options below. Medicines. You may be prescribed: oHeart rate medicines to help slow down the heartbeat oHeart rhythm medicines to help the heart beat more regularly oBlood thinners or anti-clotting medicines to help reduce the risk for blood clots and stroke. Left atrial appendage closure. Your healthcare provider may advise this device to prevent stroke. You may need if you are at high risk for stroke but have problems taking blood-thinner (anticoagulant) medicines. The device is placed in the part of the heart where most clots form. This area is called the left atrial appendage (CHAD). It's a pouch-like structure in the muscle wall of the left atrium. The device closes off the CHAD to prevent clots moving from the heart to the brain and causing a stroke. Electrical cardioversion. Your healthcare provider uses special pads or paddles to send one or morebrief electrical shocks to the heart. This can help reset the heartbeat to normal. Ablation. Long, thin tubes (catheters) are threaded through a blood vessel to the heart. There, thecatheters send out hot or cold energy to the areas causing the abnormal signals. This energy destroys the problem tissue or cells. This improves the chances that your heart will stay in normal rhythmwithout using medicines. If your heart rate and rhythm can t be controlled, you may need ablation and a pacemaker. These will help control the heart rate and regularity of the heartbeat. Surgery. During surgery, your healthcare provider may use different methods to create scar tissue in the areas of the heart causing the abnormal signals. The scar tissue disrupts the abnormal signalsand may stop AFib from occurring. Hybrid surgical-catheter ablation for AFib. This treatment is used for people with AFib that continues or is hard to treat.. It combines surgery with a catheter ablation. During the surgery, the surgeon makes small cuts (incisions) between the ribs in the chest or in the abdomen near the sternum. The surgeon puts a scope through the incisions to get to the backside of the heart. The catheter portion of the procedure is done by putting a catheter into a vein in the groin. The catheter is guided to the inside of the heart. Using the catheter, radiofrequency ablation is done to destroy the tissue inside the heart that is causing the AFib. Using both of these approaches may work better to blockthe abnormal electrical signals and be a more permanent treatment for persistent AFib. What are possible complications of atrial fibrillation? Complications can include: Blood clots Stroke Heart failure. This problem occurs when the heart muscle weakens so much that it can no longer pumpblood well. When should I call my healthcare provider? Call your healthcare provider right away if you have any of these: Symptoms that don t get better with treatment, or get worse New symptoms [id number] [employer]. [address] [place] [address], [place] [address]. All rights reserved. This information is not intended as a substitute for professional medical care. Always follow yourhealthcare professional's instructions. Additional Information VACCINATE! IT SAVES LIVES! Members of the community who have not yet received the COVID-19 vaccine and would like to receive it can visit one of [facility] vaccine clinics. There are many vaccine clinic locations within the [facility]. For locations and available times, please visit [email or web address].[email or web address]/. It is important to note that some COVID mobile vaccine clinics are held outdoors and may be canceled in rainy or stormy conditions. To learn more about pediatric vaccinations (ages 5-11), we invite you to visit the [facility] webpage. [email or web address] learn more about the COVID-19 vaccine, we invite you to visit the CDC website for a list of frequently asked questions. https://www.cdc.gov/coronavirus/2019-ncov/vaccines/faq.html [facility] Patient Portal Access Instructions: Stay connected with your healthcare team and access your personal medical information anytime with the [facility] Patient Portal. If you would like a full copy of your medical records please contact the [facility] Medical Records Department Thursday through Thursday between 8a.m. and 4:30p.m. Please follow the directions below to access the portal: 1.Access the email account you provided upon registration to the [facility].2.Look for an invitation email from [facility].3.Open the email and access the invitation link: Accept Invitation to [facility]4.Fill in the required banks to create your account. Sign into [email or web address] with your username and password that you created in the above steps to stay up to date. You can then view a summary of results, a summary of your visits, and the ability to download your summaries to your computer or send the information securely to a physician. Remember that your healthcare information is confidential, so carefully consider who you will allow to register on the [facility] Patient Portal for access to your information. You can also access the [facility] Patient Portal on the [employer]. Simply click on Health Records under codetag and then click on the [facility] logo. HOW TO SAFELY DISPOSE OF PRESCRIPTION MEDICATIONS Please use one of the following methods to safely dispose of your unused medications. 1.Use a drug disposal kit: the drug disposal pouch allows you to safely discard your old and unuseddrugs. Ask your nurse to give you one when you are discharged.2.Visit a local take-back location: Many local pharmacies and police departments have programs that collect old and unwanted prescriptiondrugs. Call your local pharmacy or go to http://Barburrito.NovoPedics/2F3Gz5g to find one close to you.3.Make use of household items: Use cat litter or old coffee grounds to dispose medications if other options arenot available. Mix your drugs with these household products, seal them in an airtight container andthrow it into the garbage. Call [facility]: [phone] to be sure your drugs can be disposed of in this way. Some medicines may require a different approach.4.Never flush your medications down the toilet. IF YOU HAVE BEEN PRESCRIBED AN OPIOIDS FOR PAIN If you have been prescribed an opioid (such as hydrocodone, oxycodone or morphine), it is critical to understand the possible side effects and risks of opioid pain medications. Even when taken as directed, opioids can have several side effects including: Tolerance, meaning you might need to take more of a medication for the same pain relief. Nausea, vomiting and/or constipation. Sleepiness, dizziness, dry mouth, confusion, depression or itching. Physical dependence, meaning you have withdrawal symptoms when a medication is stopped ? this can develop within a few days. KNOW YOUR RESPONSIBILITIES It is important to know exactly how much and how often to take the opioid pain medications you are prescribed. Never take opioids in higher amounts or more often than prescribed. Do not combine opioids with alcohol or other drugs that cause drowsiness, such as benzodiazepines, also known as benzos, including diazepam and alprazolam, muscle relaxants or sleep aids. Never sell or share prescription opioids. This is illegal. Store opioids in a secure place and out of reach of others (including children, family, friends and visitors). The last page(s) of this document has been signed and retained as a CHART COPY Signatures Patient Education Materials Understanding Atrial Fibrillation Medication Leaflets My discharge plan and instructions have been reviewed and explained to me and I,HIRAM DORAN understand my current condition and have read and understand these discharge instructions. I have received a written copy of the plan/instructions. If I have questions, I am aware that I should contact my d octor. 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 Patient was dig loaded and Coreg was increased to 6.25 mg twice daily. Patient was scheduled for LYN/DCCV, but fortunately converted to normal sinus rhythm on his own. Patient be discharged home on his home medications the following changes: Start Jardiance 10 mg daily, increase Coreg 6.25 mg twice daily, discontinue tizanidine. Patient instructed to follow-up with outpatient cardiology/PCP, medication changes as per below. Allergies NKA Procedures None Consults Consult to Spiritual Care Team (Consult to Pastoral Care) - Ordered -- 04/26/22 18:39:42 EST Imaging Results and Diagnostics No new results or diagnostics Physical Exam Vitals and Measurements T: 36.8 C (Oral) TMIN: 36.5 C (Oral) TMAX: 36.8 C (Oral) HR: 64 RR: 18 BP: 128/66 SpO2: 95% WT: 86.1 kg Weight Current Weight Dosing Weight: 86.3 kg (04/27/22) Current Weight: 86.1 kg (04/28/22) Dosing Weight: 86.9 kg (04/26/22) General Appearance: Elderly male, morbidly obese, no acute distress Head: NCAT Cardiac: RRR. No M/G/R Lungs: CTAB Abdomen: NT, ND. BS + Extremities: DP intact. No LE edema Skin: No rashes or lesions Psychiatric: A&O X3. Answers questions appropriately Pending Labs and Studies None Code Status Code Status - Ordered -- 04/26/22 19:18:00 EST, Full Code, Constant Order Admission Date 04/26/22 Discharge Date 04/28/22 Patient Instructions Patient instructed to follow-up with outpatient cardiology/PCP, medication changes as per below. Medications New Prescription empagliflozin (empagliflozin 10 mg oral tablet)1 tab(s) by mouth once a day (in the morning). Refills: 3. Changed albuterol (albuterol 5 mg/mL (0.5%) inhalation solution)0.5 Milliliter by inhalation four (4) timesa day. 0.5 ML ADDED TO NEBULIZER WITH BUDESONIDE 4 TIMES A DAY. Refills: 0. budesonide (budesonide 1 mg/2 mL inhalation suspension)1 Milliliter by inhalation two (2) times a day for 30 Days. Refills: 11. carvedilol (Coreg 6.25 mg oral tablet)1 tab(s) by mouth twice daily with meals. Refills: 3. Unchanged acetaminophen (Tylenol Extra Strength 500 mg oral tablet)1 tab(s) by mouth every 4 hours as needed as needed for pain. apixaban (Eliquis 5 mg oral tablet)1 tab(s) by mouth two (2) times a day. cholecalciferol (Vitamin D3)once a day. cimetidine (Tagamet HB 200 mg oral tablet (NF))1 tab(s) as needed Heartburn. cyanocobalamin (Vitamin B12 1000 mcg oral tablet)1 tab(s) by mouth two (2) times a day. Refills: 0. finasteride (finasteride 5 mg oral tablet)1 tab(s) by mouth once a day for 90 Days. Refills: 3. guaiFENesin (Mucinex 600 mg oral tablet, extended release)by mouth every 12 hours. guaiFENesin (Mucus Relief ER 1200 mg oral tablet, extended release)1 tab(s) by mouth once a day (inthe morning). LORazepam (LORazepam 0.5 mg oral tablet)1 tab(s) by mouth daily at bedtime for 30 Days. Refills: 2. nitroGLYcerin (nitroglycerin 0.4 mg sublingual tablet)1 tab(s) under the tongue every 5 minutes as needed for chest pain. Refills: 0. olodaterol-tiotropium (Stiolto Respimat 60 ACT 2.5 mcg-2.5 mcg/inh inhalation aerosol)2 puff(s) by inhalation once a day. rosuvastatin (Crestor 5 mg oral tablet)1 tab(s) by mouth daily at bedtime. Refills: 3. sertraline (sertraline 50 mg oral tablet)1 tab(s) by mouth once a day. Refills: 3. spironolactone (spironolactone 25 mg oral tablet)1 tab(s) by mouth once a day. tamsulosin (Flomax 0.4 mg oral capsule)2 cap by mouth daily at bedtime for 90 Days. Refills: 3. Discontinued tiZANidine (tiZANidine 4 mg oral tablet)1 tab(s) by mouth every 8 hours. Refills: 0. Follow Up Follow Up with AZAR KAHN MD When In 4 weeks 05/26/2022 EDT Where: [address] [facility] [place] [phone] Follow Up with MALISSA RASCON When Within 1-2 days Where: [address] [facility] [place] [address]- Business (1) Follow Up Appointments No qualifying data available. Follow Up Labs/Studies Discharge Labs No Follow-up Labs Discharge Studies No Follow-up Studies Discharge Diet No qualifying data available. Discharge Activity No qualifying data available. Condition on Discharge Good Discharge Disposition Home Information Provided To Patient Digitally Signed by LIBAN CHAMORRO DO on 04/28/2022 11:07 AM [id number] Discharge instructions Patient Education 04/28/2022 10:21:15 Atrial Fibrillation, Foil-cv-Axel Atrial Fibrillation Atrial fibrillation is a type of heartbeat that is irregular or fast (rapid). If you have this condition, your heart beats without any order. This makes it hard for your heart to pump blood in a normal way. Having this condition gives you more risk for stroke, heart failure, and other heart problems. Atrial fibrillation may start all of a sudden and then stop on its own, or it may become a long-lasting problem. What are the causes? This condition may be caused by heart conditions, such as: High blood pressure. Heart failure. Heart valve disease. Heart surgery. Other causes include: Pneumonia. Obstructive sleep apnea. Lung cancer. Thyroid disease. Drinking too much alcohol. Sometimes the cause is not known. What increases the risk? You are more likely to develop this condition if: You smoke. You are older. You have diabetes. You are overweight. You have a family history of this condition. You exercise often and hard. What are the signs or symptoms? Common symptoms of this condition include: A feeling like your heart is beating very fast. Chest pain. Feeling short of breath. Feeling light-headed or weak. Getting tired easily. Follow these instructions at home: Medicines Take dqzo-ysa-chakfmq and prescription medicines only as told by your doctor. If your doctor gives you a blood-thinning medicine, take it exactly as told. Taking too much of it can cause bleeding. Taking too little of it does not protect you against clots. Clots can cause a stroke. Lifestyle Do not use any tobacco products. These include cigarettes, chewing tobacco, and e-cigarettes. If you need help quitting, ask your doctor. Do not drink alcohol. Do not drink beverages that have caffeine. These include coffee, soda, and tea. Follow diet instructions as told by your doctor. Exercise regularly as told by your doctor. General instructions If you have a condition that causes breathing to stop for a short period of time (apnea), treat it as told by your doctor. Keep a healthy weight. Do not use diet pills unless your doctor says they are safe for you. Diet pills may make heart problems worse. Keep all follow-up visits as told by your doctor. This is important. Contact a doctor if: You notice a change in the speed, rhythm, or strength of your heartbeat. You are taking a blood-thinning medicine and you see more bruising. You get tired more easily when you move or exercise. You have a sudden change in weight. Get help right away if: You have pain in your chest or your belly (abdomen). You have trouble breathing. You have blood in your vomit, poop, or pee (urine). You have any signs of a stroke. BE FAST is an easy way to remember the main warning signs: ?B - Balance. Signs are dizziness, sudden trouble walking, or loss of balance. ?E - Eyes. Signs are trouble seeing or a change in how you see. ?F - Face. Signs are sudden weakness or loss of feeling in the face, or the face or eyelid droopingon one side. ?A - Arms. Signs are weakness or loss of feeling in an arm. This happens suddenly and usually on one side of the body. ?S - Speech. Signs are sudden trouble speaking, slurred speech, or trouble understanding what people say. ?T - Time. Time to call emergency services. Write down what time symptoms started. You have other signs of a stroke, such as: ?A sudden, very bad headache with no known cause. ?Feeling sick to your stomach (nausea). ?Throwing up (vomiting). ?Jerky movements you cannot control (seizure). These symptoms may be an emergency. Do not wait to see if the symptoms will go away. Get medical help right away. Call your local emergency services (911 in the [place] Do not drive yourself to the hospital. Summary Atrial fibrillation is a type of heartbeat that is irregular or fast (rapid). You are at higher risk of this condition if you smoke, are older, have diabetes, or are overweight. Follow your doctor's instructions about medicines, diet, exercise, and follow-up visits. Get help right away if you think that you have signs of a stroke. This information is not intended to replace advice given to you by your health care provider. Make sure you discuss any questions you have with your health care provider. Document Released: 12/09/2008 Document Revised: 05/06/2018 Document Reviewed: 04/23/2018 [employer] Patient [employer]. Follow Up Care 04/26/2022 18:08:48 With:AZAR KAHN MD Address: [address] [place] [address] [id number] [facility] [place] [address]- [phone] When:05/26/2022 With:MALISSA RASCON Address: [address] [place] [address] Business (1) When:1-2 days [facility] 02-13-2023 Note Discharge Instructions Thank you for allowing [facility] to assist you with your healthcare needs. The following is importantdischarge information regarding your hospital visit. Your Care Team MALISSA RASCON MD Your Diagnosis Angina pectoris, nocturnal Atrial fibrillation BPH associated with nocturia CAD in ak chin artery Hypotension Insomnia What to do next Follow Up Appointments Follow Up with MALISSA RASCON When Within 1-2 days Where: [address] [place] [address]- Business (1) The Following Activity and Diet Have Been Ordered for You Discharge Activity - Ordered -- Resume your pre-hospitalization activity, 04/28/22 9:56:00 EST Discharge Diet - Ordered -- No changes were made to your diet during your hospital stay. Please resume your pre hospitalization diet on discharge., 04/28/22 9:56:00 EST The Following Equipment Has Been Ordered for You No qualifying data available. The Following Treatments Have Been Ordered for You Discharge Labs No qualifying data available. Discharge Radiology No qualifying data available. Other Therapies No qualifying data available. Post Acute Orders No qualifying data available. Someone Will Contact You Regarding These Home Health Referrals No home referrals have been ordered for you. No one will call you. Allergies NKA Medications Please ask your primary doctor or pharmacist before taking any other medication not listed, including over the counter drugs, herbal medications, vitamins and or supplements as they may interact withyour home medications. What How Much When Why Instructions Last Dose New empagliflozin (empagliflozin 10 mg oral tablet) 1 tab(s) by mouth Once a day (in the morning) Refills: 3 Pickup at [email or web address] ([email or web address] ) Changed albuterol (albuterol 5 mg/ mL (0.5%) inhalation solution) 0.5 Milliliter by inhalation Four (4) times a day 0.5 ML ADDED TO NEBULIZER WITH BUDESONIDE 4 TIMES A DAY Changed budesonide (budesonide 1 mg/ 2 mL inhalation suspension) 1 Milliliter by inhalation Two (2) times a day Duration: 30 Days Changed carvedilol (Coreg 6.25 mg oral tablet) 1 tab(s) by mouth Twice daily with meals Pickup at [email or web address] ([email or web address] ) Unchanged acetaminophen (Tylenol Extra Strength 500 mg oral tablet) 1 tab(s) by mouth Every 4 hours as needed for as needed for pain Unchanged apixaban (Eliquis 5 mg oral tablet) 1 tab(s) by mouth Two (2) times a day Unchanged cholecalciferol (Vitamin D3) Once a day Unchanged cimetidine (Tagamet HB 200 mg oral tablet (NF)) 1 tab(s) As needed for Heartburn Unchanged cyanocobalamin (Vitamin B12 1000 mcg oral tablet) 1 tab(s) by mouth Two (2) times a day Vitamin B12 deficiency Unchanged finasteride (finasteride 5 mg oral tablet) 1 tab(s) by mouth Once a day Duration: 90 Days Unchanged guaiFENesin (Mucinex 600 mg oral tablet, extended release) by mouth Every 12 hours Unchanged guaiFENesin (Mucus Relief ER 1200 mg oral tablet, extended release) 1 tab(s) by mouth Once a day (in the morning) Unchanged LORazepam (LORazepam 0.5 mg oral tablet) 1 tab(s) by mouth Daily at bedtime Insomnia Duration: 30 Days Unchanged nitroGLYcerin (nitroglycerin 0.4 mg sublingual tablet) 1 tab(s) under the tongue Every 5 minutes as needed for for chest pain Angina pectoris, 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 Unchanged olodaterol-tiotropium (Stiolto Respimat 60 ACT 2.5 mcg-2.5 mcg/ inh inhalation aerosol) 2 puff(s) by inhalation Once a day Unchanged rosuvastatin (Crestor 5 mg oral tablet) 1 tab(s) by mouth Daily at bedtime Unchanged sertraline (sertraline 50 mg oral tablet) 1 tab(s) by mouth Once a day Unchanged spironolactone (spironolactone 25 mg oral tablet) 1 tab(s) by mouth Once a day Unchanged tamsulosin (Flomax 0.4 mg oral capsule) 2 cap by mouth Daily at bedtime BPH associated with nocturia Duration: 90 Days Pharmacy Information [email or web address] ([facility] ): [address] [place] [address] [phone] What How Much When Why Comments Stop Taking tiZANidine (tiZANidine 4 mg oral tablet) 1 tab(s) by mouth Every 8 hours Low back pain Oral thrush Please take this list to your next doctor s visit. Bring all medications you take, including over the counter medications, herbals and other supplements with you to your doctor s visit. Patients and families are reminded to discard old lists and to update any records with all medication providers or retail pharmacies. Medication Leaflets empagliflozin (MICHAEL alford) Jardiance What is the most important information I should know about empagliflozin? Stop taking this medicine and call your doctor at once if you have signs of a serious side effect, such as stomach pain, vomiting, tiredness, or trouble breathing. Tell your doctor if you are sick with vomiting or diarrhea, or if you eat or drink less than usual. Empagliflozin can cause serious infections around the penis or vagina. Get medical help right away if you have burning, itching, odor, discharge, pain, tenderness, redness or swelling of the genital or rectal area, fever, or if you don't feel well. What is empagliflozin? Empagliflozin is used together with diet and exercise to improve blood sugar control in adults withtype 2 diabetes mellitus. Empagliflozin is also used to lower the risk of from heart attack, stroke, or heart failure in adults with type 2 diabetes who also have heart disease. Empagliflozin is also used to lower the risk of dying or needing to be in a hospital for heart failure when your heart cannot pump blood properly. Empagliflozin is not for treating type 1 diabetes. Empagliflozin may also be used for purposes not listed in this medication guide. What should I discuss with my healthcare provider before taking empagliflozin? You should not use empagliflozin if you are allergic to it, or if you have: severe kidney disease (or if you are on dialysis). Tell your doctor if you have ever had: liver or kidney disease; a bladder infection or urination problems; a genital infection (penis or vagina); problems with your pancreas, including surgery; alcoholism, or if you currently drink large amounts of alcohol; if you are on a low salt diet; or if you are 65 or older. Follow your doctor's instructions about using this medicine if you are or you become . Controlling diabetes is very important during . You should not use empagliflozin during the second or third trimester of . Do not breastfeed. Not approved for use by anyone younger than 18 years old. How should I take empagliflozin? Follow all directions on your prescription label and read all medication guides or instruction sheets. Your doctor may occasionally change your dose. Use the medicine exactly as directed. You may take empagliflozin with or without food. Your blood sugar will need to be checked often, and you may also need to test the level of ketones in your urine. Empagliflozin can cause life-threatening ketoacidosis (too much acid in the blood). Even if your blood sugar is normal, contact your doctor if a urine test shows that you have high ketones in the urine. Blood sugar can be affected by stress, illness, surgery, exercise, alcohol use, or skipping meals. Low blood sugar (hypoglycemia) can make you feel very hungry, dizzy, irritable, or shaky. To quickly treat hypoglycemia, eat or drink hard candy, crackers, raisins, fruit juice, or non-diet soda. Your doctor may prescribe glucagon injection in case of severe hypoglycemia. You may get dehydrated during prolonged illness. Call your doctor if you are sick with vomiting or diarrhea, or if you eat or drink less than usual. This medicine can affect the results of certain medical tests. Tell any doctor who treats you that you are using empagliflozin. Your treatment may also include diet, exercise, weight control, and special medical care. Store at room temperature away from moisture and heat. What happens if I miss a dose? Take the medicine as soon as you can, but skip the missed dose if it is almost time for your next dose. Do not take two doses at one time. What happens if I overdose? Seek emergency medical attention or call the Poison Help line at . What should I avoid while taking empagliflozin? Avoid drinking alcohol. Avoid getting up too fast from a sitting or lying position, or you may feel dizzy. What are the possible side effects of empagliflozin? Get emergency medical help if you have signs of an allergic reaction: hives; trouble swallowing, difficult breathing; swelling of your face, lips, tongue, or throat. Seek medical attention right away if you have signs of a serious genital infection (penis or vagina): burning, itching, odor, discharge, pain, tenderness, redness or swelling of the genital or rectalarea, fever, not feeling well. These symptoms may get worse quickly. Stop taking this medicine and call your doctor at once if you have: a light-headed feeling, like you might pass out; dehydration--dizziness, confusion, feeling very thirsty, less urination; ketoacidosis (too much acid in the blood)--nausea, vomiting, stomach pain, confusion, unusual drowsiness, or trouble breathing; or signs of a bladder infection--pain or burning when you urinate, blood in your urine, pain in pelvisor back. Some side effects may be more likely to occur in older adults. Common side effects may include: a bladder infection; or yeast infection in women (vaginal itching or discharge). This is not a complete list of side effects and others may occur. Call your doctor for medical advice about side effects. You may report side effects to FDA at 4-614-CKZ-3387. What other drugs will affect empagliflozin? Other drugs may increase or decrease the effects of empagliflozin on lowering your blood sugar. Tell your doctor about all your current medicines and any you start or stop using, especially: insulin, or other oral diabetes medicine; or a diuretic or 'water pill.' This list is not complete. Other drugs may affect empagliflozin, including prescription and ktvo-gpk-diwbyhb medicines, vitamins, and herbal products. Not all possible drug interactions are listed here. Where can I get more information? Your pharmacist can provide more information about empagliflozin. Remember, keep this and all other medicines out of the reach of children, never share your medicines with others, and use this medication only for the indication prescribed. Every effort has been made to ensure that the information provided by [employer] is accurate, up-to-date, and complete, but no guarantee is made to that effect. Drug information contained herein may be time sensitive. [employer] information has been compiled for use by healthcare practitioners and consumers in the [place] and therefore [employer] does not warrant that uses outside of the [place] are appropriate, unless specifically indicated otherwise. [employer] drug information does not endorse drugs, diagnose patients or recommend therapy. [employer] drug information isan informational resource designed to assist licensed healthcare practitioners in caring for their p atients and/or to serve consumers viewing this service as a supplement to, and not a substitute for, the expertise, skill, knowledge and judgment of healthcare practitioners. The absence of a warningfor a given drug or drug combination in no way should be construed to indicate that the drug or drug combination is safe, effective or appropriate for any given patient. [employer] does not assume any responsibility for any aspect of healthcare administered with the aid of information [employer] provides. The information contained herein is not intended to cover all possible uses, directions, precautions, warnings, drug interactions, allergic reactions, or adverse effects. If you have questions about the drugs you are taking, check with your doctor, nurse or pharmacist. Copyright 6431-4444 [employer]. Version: 4.01. Revision Date: 12/20/2020. carvedilol (REYES ve dil ole) Coreg, Coreg CR What is the most important information I should know about carvedilol? You should not take carvedilol if you have asthma, bronchitis, emphysema, severe liver disease, or a serious heart condition such as heart block, 'sick sinus syndrome,' or slow heart rate (unless youhave a pacemaker). What is carvedilol? Carvedilol is a beta-megan that is used to treat heart failure and hypertension (high blood pressure). Carvedilol is also used after a heart attack that has caused your heart not to pump as well. Carvedilol may also be used for purposes not listed in this medication guide. What should I discuss with my healthcare provider before taking carvedilol? You should not take carvedilol if you are allergic to it, or if you have: asthma, bronchitis, emphysema; severe liver disease; or a serious heart condition such as severe heart failure, heart block, 'sick sinus syndrome,' or slowheart rate (unless you have a pacemaker). Tell your doctor if you have ever had: coronary artery disease (clogged arteries); slow heartbeats that have caused you to faint; fluid retention; asthma or other lung problems; angina (chest pain); diabetes (taking carvedilol can make it harder for you to tell when you have low blood sugar); a thyroid disorder; kidney disease; circulation problems (such as Raynaud's syndrome); or pheochromocytoma (tumor of the adrenal gland). Tell your doctor if you are or . Carvedilol is not approved for use by anyone younger than 18 years old. How should I take carvedilol? Follow all directions on your prescription label and read all medication guides or instruction sheets. Your doctor may occasionally change your dose. Use the medicine exactly as directed. Carvedilol works best if you take it with food, at the same time every day. Swallow the extended-release capsule whole and do not crush, chew, break, or open it. If you cannot swallow a capsule whole, open it and sprinkle the medicine into a spoonful of cold applesauce. Swallow the mixture right away without chewing. Do not save it for later use. If you are switched from carvedilol tablets to carvedilol extended-release capsules (Coreg CR), your daily total dose of this medicine may be higher or lower than before. Older adults may be more likely to become dizzy or feel faint when switching from tablets to extended-release capsules. Follow your doctor's instructions. Your blood pressure will need to be checked often. If you need surgery (including cataract surgery), tell your surgeon you currently use this medicine. You may need to stop for a short time. You should not stop using carvedilol suddenly. Stopping suddenly may cause chest pain or a heart attack. Follow your doctor's instructions about tapering your dose. If you are being treated for high blood pressure, keep using this medication even if you feel well.High blood pressure often has no symptoms. You may need to use blood pressure medication for the rest of your life. Carvedilol is only part of a complete treatment program that may also include diet, exercise, and weight control. Follow your doctor's instructions very closely. Store at room temperature away from moisture and heat. What happens if I miss a dose? Take the medicine as soon as you can, but skip the missed dose if it is almost time for your next dose. Do not take two doses at one time. What happens if I overdose? Seek emergency medical attention or call the Poison Help line at . Overdose symptoms may include uneven heartbeats, shortness of breath, bluish- colored fingernails, dizziness, weakness, fainting, and seizure (convulsions). What should I avoid while taking carvedilol? Avoid driving or hazardous activity until you know how this medicine will affect you. Your reactions could be impaired. Avoid getting up too fast from a sitting or lying position, or you may feel dizzy. What are the possible side effects of carvedilol? Get emergency medical help if you have signs of an allergic reaction: hives; difficulty breathing; swelling of your face, lips, tongue, or throat. Call your doctor at once if you have: a light-headed feeling, like you might pass out; slow or uneven heartbeats; cold feeling or numbness in your fingers or toes; chest pain, dry cough, wheezing, chest tightness; heart problems--swelling, rapid weight gain, feeling short of breath; or high blood sugar--increased thirst, increased urination, dry mouth, fruity breath odor. Common side effects may include: dizziness; slow heartbeats; diarrhea; weight gain; dry eyes; or problems wearing contact lenses. This is not a complete list of side effects and others may occur. Call your doctor for medical advice about side effects. You may report side effects to FDA at 0-647-PCX-1088. What other drugs will affect carvedilol? Sometimes it is not safe to use certain medications at the same time. Some drugs can affect your blood levels of other drugs you take, which may increase side effects or make the medications less effective. Other drugs may affect carvedilol, including prescription and ydib-zmv-bhbnaez medicines, vitamins,and herbal products. Tell your doctor about all your current medicines and any medicine you start or stop using. Where can I get more information? Your pharmacist can provide more information about carvedilol. Remember, keep this and all other medicines out of the reach of children, never share your medicines with others, and use this medication only for the indication prescribed. Every effort has been made to ensure that the information provided by [employer] is accurate, up-to-date, and complete, but no guarantee is made to that effect. Drug information contained herein may be time sensitive. [employer] information has been compiled for use by healthcare practitioners and consumers in the [place] and therefore [employer] does not warrant that uses outside of the [place] are appropriate, unless specifically indicated otherwise. [employer] drug information does not endorse drugs, diagnose patients or recommend therapy. [employer] drug information isan informational resource designed to assist licensed healthcare practitioners in caring for their p atients and/or to serve consumers viewing this service as a supplement to, and not a substitute for, the expertise, skill, knowledge and judgment of healthcare practitioners. The absence of a warningfor a given drug or drug combination in no way should be construed to indicate that the drug or drug combination is safe, effective or appropriate for any given patient. [employer] does not assume any responsibility for any aspect of healthcare administered with the aid of information [employer] provides. The information contained herein is not intended to cover all possible uses, directions, precautions, warnings, drug interactions, allergic reactions, or adverse effects. If you have questions about the drugs you are taking, check with your doctor, nurse or pharmacist. Copyright 0533-9500 [employer]. Version: 16.01. Revision Date: 07/08/2018. apixaban (a PIX a ban) Mary What is the most important information I should know about apixaban? Apixaban increases your risk of severe or fatal bleeding, especially if you take certain medicines at the same time (including some zxdm-svo-gnmsuwl medicines). Tell your doctor about all medicines you have recently used. Call your doctor at once if you have signs of bleeding such as: easy bruising, unusual bleeding, unexpected pain or swelling, feeling very weak or dizzy, bleeding gums, nosebleeds, heavy menstrual bleeding, blood in your urine or stools, coughing up blood or vomit that looks like coffee grounds, orany bleeding that will not stop. Apixaban can cause a very serious blood clot around your spinal cord that can lead to long-term or permanent paralysis. This type of blood clot can occur during a spinal tap or spinal anesthesia (epidural), especially if you have a genetic spinal defect, if you use a spinal catheter, if you've had spinal surgery or repeated spinal taps, or if you use other drugs that can affect blood clotting. Get emergency medical help if you have symptoms of a spinal cord blood clot such as tingling, numbness, or muscle weakness especially in your legs and feet. Do not stop taking apixaban unless your doctor tells you to. Stopping suddenly can increase your risk of blood clot or stroke. What is apixaban? Apixaban is used to lower the risk of stroke caused by a blood clot in people with a heart rhythm disorder called atrial fibrillation. Apixaban is also used after hip or knee replacement surgery to prevent a type of blood clot called deep vein thrombosis (DVT), which can lead to blood clots in the lungs (pulmonary embolism). Apixaban is also used to treat DVT or pulmonary embolism (PE), and to lower your risk of having a repeat DVT or PE. Apixaban may also be used for purposes not listed in this medication guide. What should I discuss with my healthcare provider before taking apixaban? You should not take apixaban if you are allergic to it, or if you have active bleeding from a surgery, injury, or other cause. Apixaban may cause you to bleed more easily, especially if you have a bleeding disorder that is inherited or caused by disease. Tell your doctor if you have an artificial heart valve, or if you have ever had: bleeding problems; antiphospholipid syndrome, especially if you have a triple positive antibody test; or liver or kidney disease. Apixaban can cause a very serious blood clot around your spinal cord if you undergo a spinal tap orreceive spinal anesthesia (epidural). This type of blood clot could cause long-term paralysis, and may be more likely to occur if: you have a spinal catheter in place or if a catheter has been recently removed; you have a history of spinal surgery or repeated spinal taps; you have recently had a spinal tap or epidural anesthesia; you take aspirin or other NSAIDs (nonsteroidal anti-inflammatory drugs)--ibuprofen (Advil, Motrin),naproxen (Aleve), diclofenac, indomethacin, meloxicam, and others; or you are using other medicines to treat or prevent blood clots. Taking apixaban may increase the risk of bleeding while you are or during your delivery. Tell your doctor if you are or plan to become . Do not breastfeed. How should I take apixaban? Follow all directions on your prescription label and read all medication guides or instruction sheets. Your doctor may occasionally change your dose. Use the medicine exactly as directed. You may take apixaban with or without food. If you cannot swallow a tablet whole, crush it and mix with water, apple juice, or applesauce. Swallow the mixture right away without chewing. A crushed tablet mixture may also be given through a nasogastric (NG) feeding tube. Read and carefully follow any Instructions for Use provided with your medicine. Apixaban can make it easier for you to bleed, even from a minor injury. Seek medical attention if you have bleeding that will not stop. Tell your doctor if you have a planned surgery or dental work. You may need to stop taking apixabanfor a short time. Do not stop taking apixaban unless your doctor tells you to. If you stop taking apixaban for any reason, your doctor may prescribe another medicine to prevent blood clots. Store at room temperature away from moisture and heat. What happens if I miss a dose? Take the missed dose on the same day you remember it. Take your next dose at the regular time and stay on your twice-daily schedule. Do not take two doses at one time. Get your prescription refilled before you run out of medicine completely. What happens if I overdose? Seek emergency medical attention or call the Poison Help line at . What should I avoid while taking apixaban? Avoid activities that may increase your risk of bleeding or injury. Use extra care while shaving orbrushing your teeth. What are the possible side effects of apixaban? Get emergency medical help if you have signs of an allergic reaction: hives; chest pain, wheezing, difficult breathing; feeling light-headed; swelling of your face, lips, tongue, or throat. Also seek emergency medical attention if you have symptoms of a spinal blood clot such as tingling,numbness, or muscle weakness especially in your legs and feet. Call your doctor at once if you have: easy bruising, unusual bleeding (nose, mouth, vagina, or rectum), bleeding from wounds or needle injections, any bleeding that will not stop; heavy menstrual bleeding; headache, dizziness, weakness, feeling like you might pass out; urine that looks red, pink, or brown; or black or bloody stools, coughing up blood or vomit that looks like coffee grounds. This is not a complete list of side effects and others may occur. Call your doctor for medical advice about side effects. You may report side effects to FDA at 3-073-IXD-5971. What other drugs will affect apixaban? Sometimes it is not safe to use certain medications at the same time. Some drugs can affect your blood levels of other drugs you take, which may increase side effects or make the medications less effective. Many other drugs (including some ejpf-vxt-aipmuyy medicines) can increase your risk of bleeding or blood clots. Tell your doctor about all medicines you have recently used, especially: any other medicines to treat or prevent blood clots; a blood thinner such as heparin or warfarin (Coumadin, Jantoven); an antidepressant; or aspirin or other NSAID (nonsteroidal anti-inflammatory drug) used medical terminologist. This list is not complete and many other drugs may affect apixaban. This includes prescription and vpfk-llb-ckbnsln medicines, vitamins, and herbal products. Not all possible drug interactions are listed here. Where can I get more information? Your pharmacist can provide more information about apixaban. Remember, keep this and all other medicines out of the reach of children, never share your medicines with others, and use this medication only for the indication prescribed. Every effort has been made to ensure that the information provided by [employer]. ('[employer]') is accurate, up-to-date, and complete, but no guarantee is made to that effect. Drug information contained herein may be time sensitive. [employer] information has been compiled for use by healthcare practitioners and consumers in the [place] and therefore [employer] does not warrant that uses outside of the [place] are appropriate, unless specifically indicated otherwise. [employer] drug information does not endorse drugs, diagnose patients or recommend therapy. [employer] drug information isan informational resource designed to assist licensed healthcare practitioners in caring for their p atients and/or to serve consumers viewing this service as a supplement to, and not a substitute for, the expertise, skill, knowledge and judgment of healthcare practitioners. The absence of a warningfor a given drug or drug combination in no way should be construed to indicate that the drug or drug combination is safe, effective or appropriate for any given patient. [employer] does not assume any responsibility for any aspect of healthcare administered with the aid of information [employer] provides. The information contained herein is not intended to cover all possible uses, directions, precautions, warnings, drug interactions, allergic reactions, or adverse effects. If you have questions about the drugs you are taking, check with your doctor, nurse or pharmacist. Copyright 4338-2123 [employer]. Version: 6.01. Revision Date: 11/06/2020. Education Materials Atrial Fibrillation Atrial fibrillation is a type of heartbeat that is irregular or fast (rapid). If you have this condition, your heart beats without any order. This makes it hard for your heart to pump blood in a normal way. Having this condition gives you more risk for stroke, heart failure, and other heart problems. Atrial fibrillation may start all of a sudden and then stop on its own, or it may become a long-lasting problem. What are the causes? This condition may be caused by heart conditions, such as: High blood pressure. Heart failure. Heart valve disease. Heart surgery. Other causes include: Pneumonia. Obstructive sleep apnea. Lung cancer. Thyroid disease. Drinking too much alcohol. Sometimes the cause is not known. What increases the risk? You are more likely to develop this condition if: You smoke. You are older. You have diabetes. You are overweight. You have a family history of this condition. You exercise often and hard. What are the signs or symptoms? Common symptoms of this condition include: A feeling like your heart is beating very fast. Chest pain. Feeling short of breath. Feeling light-headed or weak. Getting tired easily. Follow these instructions at home: Medicines Take mtrs-rnk-pplcfnp and prescription medicines only as told by your doctor. If your doctor gives you a blood-thinning medicine, take it exactly as told. Taking too much of it can cause bleeding. Taking too little of it does not protect you against clots. Clots can cause a stroke. Lifestyle Do not use any tobacco products. These include cigarettes, chewing tobacco, and e-cigarettes. If you need help quitting, ask your doctor. Do not drink alcohol. Do not drink beverages that have caffeine. These include coffee, soda, and tea. Follow diet instructions as told by your doctor. Exercise regularly as told by your doctor. General instructions If you have a condition that causes breathing to stop for a short period of time (apnea), treat it as told by your doctor. Keep a healthy weight. Do not use diet pills unless your doctor says they are safe for you. Diet pills may make heart problems worse. Keep all follow-up visits as told by your doctor. This is important. Contact a doctor if: You notice a change in the speed, rhythm, or strength of your heartbeat. You are taking a blood-thinning medicine and you see more bruising. You get tired more easily when you move or exercise. You have a sudden change in weight. Get help right away if: You have pain in your chest or your belly (abdomen). You have trouble breathing. You have blood in your vomit, poop, or pee (urine). You have any signs of a stroke. BE FAST is an easy way to remember the main warning signs: ? B - Balance. Signs are dizziness, sudden trouble walking, or loss of balance. ? E - Eyes. Signs are trouble seeing or a change in how you see. ? F - Face. Signs are sudden weakness or loss of feeling in the face, or the face or eyelid drooping on one side. ? A - Arms. Signs are weakness or loss of feeling in an arm. This happens suddenly and usually on oneside of the body. ? S - Speech. Signs are sudden trouble speaking, slurred speech, or trouble understanding what peoplesay. ? T - Time. Time to call emergency services. Write down what time symptoms started. You have other signs of a stroke, such as: ? A sudden, very bad headache with no known cause. ? Feeling sick to your stomach (nausea). ? Throwing up (vomiting). ? Jerky movements you cannot control (seizure). These symptoms may be an emergency. Do not wait to see if the symptoms will go away. Get medical help right away. Call your local emergency services (911 in the [place] Do not drive yourself to the hospital. Summary Atrial fibrillation is a type of heartbeat that is irregular or fast (rapid). You are at higher risk of this condition if you smoke, are older, have diabetes, or are overweight. Follow your doctor's instructions about medicines, diet, exercise, and follow-up visits. Get help right away if you think that you have signs of a stroke. This information is not intended to replace advice given to you by your health care provider. Make sure you discuss any questions you have with your health care provider. Document Released: 12/09/2008 Document Revised: 05/06/2018 Document Reviewed: 04/23/2018 [employer] Patient Education 2020 [employer]. Additional Information VACCINATE! IT SAVES LIVES! Members of the community who have not yet received the COVID-19 vaccine and would like to receive it can visit one of [facility] vaccine clinics. There are many vaccine clinic locations within the [facility]. For locations and available times, please visit [email or web address] It is important to note that some COVID mobile vaccine clinics are held outdoors and may be canceled in rainy or stormy conditions. To learn more about pediatric vaccinations (ages 5-11), we invite you to visit the [facility] webpage. [email or web address] learn more about the COVID-19 vaccine, we invite you to visit the [facility] website for a list of frequently asked questions. [email or web address] [facility] Patient Portal Access Instructions: Stay connected with your healthcare team and access your personal medical information anytime with the [facility] Patient Portal.If you would like a full copy of your medical records, please contact the [facility] Medical Records Department, Thursday through Thursday between 8a.m. and 4:30p.m. Please follow the directions below to access the portal: 1.Access the email account you provided upon registration to the [facility].2.Look for an invitation email from [facility].3.Open the email and access the invitation link: Accept Invitation to [facility]4.Fill in the required banks to create your account. Sign into [email or web address] with your username and password that you created in the above steps to stay up to date. You can then view a summary of results, a summary of your visits, and the ability to download your summaries to your computer or send the information securely to a physician. Remember that your healthcare information is confidential, so carefully consider who you will allow to register on the [facility] Patient Portal for access to your information. You can also access the [facility] Patient Portal on the [employer]. Simply click on Health Records under codetag and then click on the [facility] logo. HOW TO SAFELY DISPOSE OF PRESCRIPTION MEDICATIONS Please use one of the following methods to safely dispose of your unused medications. 1.Use a drug disposal kit: the drug disposal pouch allows you to safely discard your old and unuseddrugs. Ask your nurse to give you one when you are discharged.2.Visit a local take-back location: Many local pharmacies and police departments have programs that collect old and unwanted prescriptiondrugs. Call your local pharmacy or go to http://bit.NovoPedics/4U4Sk3p to find one close to you.3.Make use of household items: Use cat litter or old coffee grounds to dispose medications if other options arenot available. Mix your drugs with these household products, seal them in an airtight container andthrow it into the garbage. Call [facility]: [phone] to be sure your drugs can be disposed of in this way. Some medicines may require a different approach.4.Never flush your medications down the toilet. IF YOU HAVE BEEN PRESCRIBED AN OPIOID FOR PAIN If you have been prescribed an opioid (such as hydrocodone, oxycodone or morphine), it is critical to understand the possible side effects and risks of opioid pain medications. Even when taken as directed, opioids can have several side effects including: Tolerance, meaning you might need to take more of a medication for the same pain relief. Nausea, vomiting and/or constipation. Sleepiness, dizziness, dry mouth, confusion, depression or itching. Physical dependence, meaning you have withdrawal symptoms when a medication is stopped, can develop within a few days. KNOW YOUR RESPONSIBILITIES It is important to know exactly how much and how often to take the opioid pain medications you are prescribed. Never take opioids in higher amounts or more often than prescribed. Do not combine opioids with alcohol or other drugs that cause drowsiness, such as benzodiazepines, also known as benzos, including diazepam and alprazolam, muscle relaxants or sleep aids. Never sell or share prescription opioids. This is illegal. Store opioids in a secure place and out of reach of others (including children, family, friends and visitors). The last page of this document has been signed and retained as a CHART COPY. Signatures Patient Education Materials Atrial Fibrillation, Nrew-gj-Rxlw Medication Leaflets empagliflozin, carvedilol, apixaban My discharge plan and instructions have been reviewed and explained to me and I,HIRAM DORAN understand my current condition and have read and understand these discharge instructions. I have received a written copy of the plan/instructions. If I have questions, I am aware that I should contact my d octor. 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 Signature: Date/Time: Relationship to Patient: Witness Name/Signature: [id number] Discharge summary Date of Service 04/28/22 Discharge Diagnosis Angina pectoris, nocturnal (I20.8 - ICD-10-CM) Atrial fibrillation (I48.91 - ICD-10-CM) BPH associated with nocturia (N40.1 - ICD-10-CM) CAD in ak chin artery (I25.10 - ICD-10-CM) Hypotension (I95.9 - ICD-10-CM) Insomnia (G47.00 - ICD-10-CM) Hospital Course Patient is an 81-year-old male with a past medical history of recurrent paroxysmal atrial fibrillation on Eliquis, HFpEF ejection fraction 45%, mild CAD, hypertension, hyperlipidemia, JORGE on CPAP, COPD, GERD, anxiety/depression presented to the hospital for chest fluttering found to be in atrial fib rillation with rapid ventricular response. Patient was dig loaded and Coreg was increased to 6.25 mg twice daily. Patient was scheduled for LYN/DCCV, but fortunately converted to normal sinus rhythm on his own. Patient be discharged home on his home medications the following changes: Start Jardiance 10 mg daily, increase Coreg 6.25 mg twice daily, discontinue tizanidine. Patient instructed to follow-up with outpatient cardiology/PCP, medication changes as per below. Allergies NKA Procedures None Consults Consult to Spiritual Care Team (Consult to Pastoral Care) - Ordered -- 04/26/22 18:39:42 EST Imaging Results and Diagnostics No new results or diagnostics Physical Exam Vitals and Measurements T: 36.8 C (Oral) TMIN: 36.5 C (Oral) TMAX: 36.8 C (Oral) HR: 64 RR: 18 BP: 128/66 SpO2: 95% WT: 86.1 kg Weight Current Weight Dosing Weight: 86.3 kg (04/27/22) Current Weight: 86.1 kg (04/28/22) Dosing Weight: 86.9 kg (04/26/22) General Appearance: Elderly male, morbidly obese, no acute distress Head: NCAT Cardiac: RRR. No M/G/R Lungs: CTAB Abdomen: NT, ND. BS + Extremities: DP intact. No LE edema Skin: No rashes or lesions Psychiatric: A&O X3. Answers questions appropriately Pending Labs and Studies None Code Status Code Status - Ordered -- 04/26/22 19:18:00 EST, Full Code, Constant Order Admission Date 04/26/22 Discharge Date 04/28/22 Patient Instructions Patient instructed to follow-up with outpatient cardiology/PCP, medication changes as per below. Medications New Prescription empagliflozin (empagliflozin 10 mg oral tablet)1 tab(s) by mouth once a day (in the morning). Refills: 3. Changed albuterol (albuterol 5 mg/mL (0.5%) inhalation solution)0.5 Milliliter by inhalation four (4) timesa day. 0.5 ML ADDED TO NEBULIZER WITH BUDESONIDE 4 TIMES A DAY. Refills: 0. budesonide (budesonide 1 mg/2 mL inhalation suspension)1 Milliliter by inhalation two (2) times a day for 30 Days. Refills: 11. carvedilol (Coreg 6.25 mg oral tablet)1 tab(s) by mouth twice daily with meals. Refills: 3. Unchanged acetaminophen (Tylenol Extra Strength 500 mg oral tablet)1 tab(s) by mouth every 4 hours as needed as needed for pain. apixaban (Eliquis 5 mg oral tablet)1 tab(s) by mouth two (2) times a day. cholecalciferol (Vitamin D3)once a day. cimetidine (Tagamet HB 200 mg oral tablet (NF))1 tab(s) as needed Heartburn. cyanocobalamin (Vitamin B12 1000 mcg oral tablet)1 tab(s) by mouth two (2) times a day. Refills: 0. finasteride (finasteride 5 mg oral tablet)1 tab(s) by mouth once a day for 90 Days. Refills: 3. guaiFENesin (Mucinex 600 mg oral tablet, extended release)by mouth every 12 hours. guaiFENesin (Mucus Relief ER 1200 mg oral tablet, extended release)1 tab(s) by mouth once a day (inthe morning). LORazepam (LORazepam 0.5 mg oral tablet)1 tab(s) by mouth daily at bedtime for 30 Days. Refills: 2. nitroGLYcerin (nitroglycerin 0.4 mg sublingual tablet)1 tab(s) under the tongue every 5 minutes as needed for chest pain. Refills: 0. olodaterol-tiotropium (Stiolto Respimat 60 ACT 2.5 mcg-2.5 mcg/inh inhalation aerosol)2 puff(s) by inhalation once a day. rosuvastatin (Crestor 5 mg oral tablet)1 tab(s) by mouth daily at bedtime. Refills: 3. sertraline (sertraline 50 mg oral tablet)1 tab(s) by mouth once a day. Refills: 3. spironolactone (spironolactone 25 mg oral tablet)1 tab(s) by mouth once a day. tamsulosin (Flomax 0.4 mg oral capsule)2 cap by mouth daily at bedtime for 90 Days. Refills: 3. Discontinued tiZANidine (tiZANidine 4 mg oral tablet)1 tab(s) by mouth every 8 hours. Refills: 0. Follow Up Follow Up with AZAR KAHN MD When In 4 weeks 05/26/2022 EDT Where: [address] [facility] [place] [address]- [phone] Follow Up with MALISSA RASCON When Within 1-2 days Where: [address] [facility] [place] [address]- Business (1) Follow Up Appointments No qualifying data available. Follow Up Labs/Studies Discharge Labs No Follow-up Labs Discharge Studies No Follow-up Studies Discharge Diet No qualifying data available. Discharge Activity No qualifying data available. Condition on Discharge Good Discharge Disposition Home Information Provided To Patient Digitally Signed by LIBAN CHAMORRO DO on 04/28/2022 11:07 AM [id number] Note Chief Complaint Transition Plan. Transitional Action Points Patient is hospitalized with chest fluttering, AFib is on Eliquis does have history of COPD No hospitalizations in the past 12 months Is from home with his he denies any falls does not utilize a cane or a walker and continues todrive He states he sees his PCP on a regular basis I anticipate he will be able to transition home independently we will continue to follow Assessment/Plan AFib COPD Age-related debility Readmission Risk Points Age greater than 65 Full code AFib Anticoagulation use COPD Generalized weakness History of Present Illness 81-year-old male here following chest fluttering found to have atrial fibrillation. He has had no hospitalizations in the past year and was living at home with his prior to admission, denies falls, denies use of medical equipment, was independent of ADLs, and was driving. He states that he hasbeen having occasional periods of weakness. Review of Symptoms General: Not feeling too bad HEENT: Denies blurry vision, headache, congestion Respiratory: Denies shortness of breath or cough Cardio: Denies chest pain or palpitations GI: Denies abdominal pain or change in appetite Musculoskeletal: Occasional weakness Neuro: Denies dizziness or confusion Psych: Denies depression or anxiety Physical exam General: No acute distress, in bed, debilitated HEENT: Oral mucosa moist, eyes following movement Respiratory: On room air Musculoskeletal: Weakness present Neurological: No tremors or focal deficit Psych: Mood cooperative, alert and oriented Vitals Signs(Last 24 hrs)__Last Charted Minimum Maximum Temp36.7(APR 27 23:00)36.7(APR 27 23:00)37.1(APR 27 08:35) Heart Rate78(APR 27 23:09)65(APR 27 14:45)98(APR 27 03:51) Resp Rate17(APR 27 23:00)16(APR 27 10:53)18(APR 27 03:51) QII861(APR 27 23:00)105(APR 27 08:35)120(APR 27 23:00) DBP62(APR 27 23:00)62(APR 27 10:53)73(APR 27 03:51) Problem List/ Past Medical History (HFpEF) heart failure with preserved ejection fraction Acid reflux Anxiety Arthritis Asbestosis Atrial fibrillation BPH with urinary obstruction CAD in ak chin artery COPD (chronic obstructive pulmonary disease) COPD exacerbation Chronic neck pain Constipation Depression Elevated glucose Enlarged prostate Essential hypertension Fatigue GERD (gastroesophageal reflux disease) Glasses Hypercholesterolemia Insomnia LABYRINTHINE DYSFUNCTION Low back pain Low back pain Lower extremity weakness Lumbar nerve root injury inpingement Lumbosacral radiculopathy Lung abscess Mild anemia Mixed hyperlipidemia Muscle weakness Need for vaccination JORGE (obstructive sleep apnea) Oral thrush Osteoarthrosis Palpitations Paroxysmal atrial fibrillation Psoriasis Shortness of breath on exertion Spinal stenosis Upper back pain on right side Vitamin B12 deficiency No qualifying data available. Procedure/ Surgical History Echocardiogram: 03/10/22 Echocardiogram: 10/11/21 CT of thorax: 10/11/21 Cardiac catheterization: 05/27/21 Cardiac catheterization: 05/27/21 Cardiovascular stress testin05/20/21 Stress echocardiography using dobutamine: 08/04/18 Stress echocardiography: 08/04/18 Echocardiography: 08/02/18 Echocardiogram: 08/02/18 Echocardiogram: 03/18/17 Cardiovascular stress testin02/24/17 Laminectomy: 06/01/14 Colonoscopy: 12/23/12 Hernia repair: 1998 ORIF - Open reduction and internal fixation of fracture: 1980 Appendectomy: 1944 Appendectomy Hernia Hemorrhoidectomy Medication List Active Medications Ordered acetaminophen: 1,000 mg, 2 tab(s), Oral, BID, PRN: Pain, scale 4-10. acetaminophen: 500 mg, 1 tab(s), Oral, q4h, PRN: Pain. acetaminophen-hydrocodone: 2 tab(s), Oral, q4h, PRN: Pain, scale 7-10. albuterol: 2.5 mg, 3 mL, Inhalation, BIDRT. albuterol-ipratropium: 3 mL, Inhalation, q4hRT, PRN: decreased breath sounds. apixaban: 5 mg, 1 tab(s), Oral, BID. atorvastatin: 10 mg, 1 tab(s), Oral, qHS. budesonide: 0.5 mg, 2 mL, Inhalation, BIDRT. carvedilol: 6.25 mg, 1 tab(s), Oral, BIDM. empagliflozin: 10 mg, 1 tab(s), Oral, qAM. famotidine: 20 mg, 1 tab(s), Oral, qDay, PRN: Heartburn. finasteride: 5 mg, 1 tab(s), Oral, qDay. guaiFENesin: 1,200 mg, 2 tab(s), Oral, qAM. LORazepam: 0.5 mg, 1 tab(s), Oral, qHS. melatonin: 6 mg, 2 tab(s), Oral, qHS, PRN: Sleep. nitroGLYcerin: 0.4 mg, 1 tab(s), Sublingual, q5min, PRN: Chest pain. polyethylene glycol 3350: 17 gram(s), 15 mL, Oral, qDay, PRN: Constipation. sertraline: 50 mg, 1 tab(s), Oral, qDay. spironolactone: 25 mg, 1 tab(s), Oral, qDayM. tamsulosin: 0.8 mg, 2 cap(s), Oral, qHS. trimethobenzamide: 200 mg, 2 mL, Intramuscular, q6h, PRN: Nausea/Vomiting. Prescribed albuterol: 2.5 mg, 0.5 mL, Inhalation, QID, 0.5 ML ADDED TO NEBULIZER WITH BUDESONIDE 4 TIMES A DAY, 60 mL, 0 Refill(s). budesonide: 0.5 mg, 1 mL, Inhalation, BID, for 30 day(s), 60 mL, 11 Refill(s). carvedilol: 3.125 mg, 1 tab(s), Oral, BID, 60 tab(s), 2 Refill(s). cyanocobalamin: 1,000 mcg, 1 tab(s), Oral, BID, 60 tab(s), 0 Refill(s). finasteride: 5 mg, 1 tab(s), Oral, qDay, for 90 day(s), 90 tab(s), 3 Refill(s). LORazepam: 0.5 mg, 1 tab(s), Oral, qHS, for 30 day(s), 30 tab(s), 2 Refill(s). nitroGLYcerin: 0.4 mg, 1 tab(s), Sublingual, q5min, PRN: for chest pain, 25 tab(s), 0 Refill(s). rosuvastatin: 5 mg, 1 tab(s), Oral, qHS, 90 tab(s), 3 Refill(s). sertraline: 50 mg, 1 tab(s), Oral, qDay, 90 tab(s), 3 Refill(s). tamsulosin: 0.8 mg, 2 cap(s), Oral, qHS, for 90 day(s), 180 cap(s), 3 Refill(s). tiZANidine: 4 mg, 1 tab(s), Oral, q8h, 90 tab(s), 0 Refill(s). Documented acetaminophen: 500 mg, 1 tab(s), Oral, q4h, PRN: as needed for pain, 24 tab(s), 0 Refill(s). apixaban: 5 mg, 1 tab(s), Oral, BID, 0 Refill(s). cholecalciferol: qDay, 0 Refill(s). cimetidine: 200 mg, 1 tab(s), PRN: Heartburn, 0 Refill(s). guaiFENesin: mg, tab(s), Oral, q12h, 0 Refill(s). guaiFENesin: 1,200 mg, 1 tab(s), Oral, qAM, 0 Refill(s). olodaterol-tiotropium: 2 puff(s), Inhalation, qDay, 1 EA, 0 Refill(s). spironolactone: 25 mg, 1 tab(s), Oral, qDay, 30 tab(s), 0 Refill(s). Medications Inactivated in the Last 72 Hours albuterol: 2.5 mg, 3 mL, Inhalation, QIDRT. albuterol: 0.5 mg, 0.6 mL, Inhalation, TIDRT. albuterol: Inhalation, BID, 0 Refill(s). albuterol: 0.63 mg, 0.13 mL, Inhalation, BIDRT. albuterol-ipratropium: 3 mL, Inhalation, QIDRT. budesonide: 1 mg, 4 mL, Inhalation, BIDRT. carvedilol: 3.125 mg, 1 tab(s), Oral, BID. digoxin: 0.25 mg, 1 mL, IV Push, q6hr. dilTIAZem: 15 mg, 3 mL, IV Push, Once. dilTIAZem 125 mg [5 mg/hr] + Sodium Chloride 0.9% intravenous solution 100 mL: 5 mL/hr, Intravenous. guaiFENesin: 1,200 mg, 1 tab(s), Oral, qAM. nitroGLYcerin: 0.4 mg, 1 tab(s), Sublingual, q5min, PRN: Chest pain. olodaterol-tiotropium: 2 puff(s), Inhalation, qDay. Sodium Chloride 0.9% intravenous solution: 250 mL, IV Bolus, Once. Allergies NKA Social HX Alcohol Risk Assessment: Denies Alcohol Use; Details: Use: Current. Frequency: 1-2 times per year. 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 Nutrition/Health Details: Caffeine intake amount: coffee 2 servings daily. Substance Abuse Risk Assessment: Denies Substance Abuse; Details: Use: Never. Tobacco Details: Tobacco Use: Former smoker, quit more than 30 days ago.; Comment(s): Tobacco/Smoke Exposure: none Family medical HX Mother (): COPD; Emphysema of lung Grandparent: Coronary artery disease Code Status Code Status - Ordered -- 04/26/22 19:18:00 EST, Full Code, Constant Order I Gypsy DELEON, am scribing for Radha Yeager NP, in the presence of Radha Yeager NP, personally performed the services described in this documentation, as described by Gypsy DELEON in my presence and it is both accurate and complete. Medications reviewed and up to date. This document transcribed using voice recognition software may contain typographical errors. 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 Patient stated that she started having some fluttering sensation in his chest. He immediately knew that he was in atrial fibrillation. He was also feeling some lightheadedness and dizziness with ambulation. Therefore, he decided to present himself to [facility] for further evaluation. Patientdenies any chest discomfort at rest or with exertion. Denies any epigastric pain/back pain/neck pain/jaw pain at rest or even with exertion. Patient does have chronic back pain that has unchanged over time. Denies any presyncope or syncopal events. Denies any orthopnea/PND/nocturnal cough. Does report occasional coughing spells. Denies any melena or dyschezia.. Denied any fever/chills/sweats. Passing 4.2 magnesium 2.0. Interval proBNP elevated at 4000-19. High-sensitivity troponin within normal limits at 19.3. TSH 1.80. EKG revealed atrial fibrillation with a ventricular rate of 120 bpm. Left anterior fascicular block. No significant ST-T changes suggestive of ischemia. Echocardiogram done on 03/10/2022 1. Left ventricle: The cavity size is normal. Wall thickness is normal. Systolic function is mildlyreduced. The estimated ejection fraction is 45%. There is mild diffuse hypokinesis. Grade I diastolic dysfunction. 2. Mitral valve: The annulus is mildly calcified. 3. Right ventricle: The RV systolic pressure by Doppler is 19 mm Hg. 4. Right atrium: The estimated right atrial pressure is 3 mm Hg. 5. Pericardium, extracardiac: A prominent pericardial fat pad is present. Review of Systems A thorough 14 point review of system was done, and is negative except for what assisted above in the HPI section. Physical Exam Vitals and Measurements T: 36.6 C (Oral) TMIN: 36.5 C (Oral) TMAX: 36.6 C (Oral) HR: 116(Monitored) RR: 24(Total) BP: 99/68 SpO2: 96% HT: 172.7 cm WT: 86.9 kg BMI: 29.14 Weight Dosing Weight: 86.9 kg (04/26/22) General: Patient is under no acute distress,and in no discomfort Head: Normocephalic, Atraumatic Eyes/Ear: Pupils are equal and reactive, No scleral icterus. Nose: Normal appearing nasal nares Mouth: Good oral hygiene, Moist oral mucosa, no pharyngeal erythema or exudates noted, undeviated uvula Neck: Supple, Nontender, No thyromegaly, No JVD, Midline trachea, No lymphadenopathy Chest: Normal breathing effort, clear to auscultation bilaterally Cardiac: Irregularly irregular tachycardic rate, Normal S1-S2, No MGR Abdomen: Soft, Nontender, Normal active bowel sounds Back: No obvious deformities. Genitourinary: Deferred Extremity: Radial pulses 2+ B/L. Warm bilaterally, No pedal edema, no atrophy or skin changes noted Skin: No PATHOLOGIC moles, rashes, lesions or ulcers were noted other than what is listed above Neuro: Alert and Oriented 4, Cranial nerves II to XII grossly intact. No focal deficits grossly noted Psych: Pleasant, Good attention Lab Results WBC: 14.6 10^3/mcL High (04/26/22 12:52:00) RBC: 4.8 10^6/mcL (04/26/22:52:00) Hgb: 14.9 G/dL (04/26/22:52:00) Hct: 43.9 % (04/26/22:52:00) MCV: 91.5 fL (04/26/22:52:00) MCH: 31.1 pg (04/26/22:52:00) MCHC: 34 G/dL (04/26/22:52:00) RDW: 14.7 % High (04/26/22:52:00) Platelet: 268 10^3/mcL (04/26/22:52:00) MPV: 7.4 fL (04/26/22:00) Monocyte Distribution Width: 16.78 (04/26/2252:00) Neutrophil %: 76.7 % (04/26/22:52:00) Lymphocyte %: 11.2 % (04/26/22:52:00) Monocyte %: 9.6 % (04/26/22:52:00) Eosinophil %: 1.8 % (04/26/22:52:00) Basophil %: 0.7 % (04/26/22:52:00) Neutrophil, Absolute: 11.2 10^3/mcL High (04/26/22:52:00) Lymphocyte, Absolute: 1.6 10^3/mcL (04/26/22:52:00) Monocyte, Absolute: 1.4 10^3/mcL High (04/26/22:52:00) Eosinophil, Absolute: 0.3 10^3/mcL (04/26/22:52:00) Basophil, Absolute: 0.1 10^3/mcL (04/26/22:52:00) Glucose Level: 125 mg/dL High (04/26/22:52:00) Sodium Level: 137 mmol/L (04/26/22:52:00) Potassium Level: 4.4 mmol/L (04/26/22 12:52:00) Chloride: 100 mmol/L (04/26/22:52:00) CO2: 31 mmol/L (02/11/23 12:52:00) Electrolyte Balance: 6 mEq/L (04/26/22 12:52:00) BUN: 17 mg/dL (04/26/22 12:52:00) Creatinine Lvl (s): 1.22 mg/dL (04/26/22 12:52:00) BUN/Creatinine Ratio: 14 ratio (04/26/22 12:52:00) Calcium Lvl: 8.2 mg/dL Low (04/26/22 12:52:00) GFR Non-: 57 ml/min/1.73sqm (04/26/22 12:52:00) GFR : 69 ml/min/1.73sqm (04/26/22 12:52:00) N-Terminal proBNP: 4219 pg/mL High (04/26/22 15:38:00) Troponin I High Sensitivity: 19.3 ng/L (04/26/22 12:52:00) Imaging Results and Diagnostics I have reviewed all available EKGs, echocardiograms, stress test and cardiac catheterizations. Relevant laboratory data have also been reviewed. EKG Reviewed. See HPI. 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 Continue digoxin loading. We will increase patient's to 6.25 milligram twice daily. Patient has been compliant with his Eliquis over the last 30 days. He stated that he has not missed a single dose of Eliquis in the last 30days. He even took his Eliquis yesterday before going to [facility]. Plan for cardioversion tomorrow. N.p.o. after midnight. As for patient's HFmrEF, continue Coreg and Aldactone. Will defer Entresto for now as patient is hypotensive. We will start this patient on empagliflozin 10 mg daily. Patient does not appear to be significantly volume overloaded during this admission. Repeat echocardiogram in 3 months. As for patient's CAD, continue medical management with Eliquis, Coreg, and atorvastatin. As for patient systemic hypertension, continue current medications. As for patient's dyslipidemia, continue statin therapy. As for patient's JORGE, CPAP at home. As for patient's other comorbidities, we will continue all her home medications/therapies are not currently interfering with this patient's care. Assessment and plan was discussed with Dr. Kahn. Any changes in assessment/plan, will be added as an addendum to this note by the attending physician. I have reviewed all available EKGs, echocardiograms, stress test and cardiac catheterizations. Relevant laboratory data have also been reviewed. This note was transcribed via voice recognition software. Please, forgive any errors or typos, resulting from the use of this technology. Problem List/Past Medical History Ongoing (HFpEF) heart failure with preserved ejection fraction Acid reflux Arthritis Asbestosis Atrial fibrillation BPH with urinary obstruction CAD in [place] chin artery Chronic neck pain Constipation COPD (chronic obstructive pulmonary disease) COPD exacerbation Depression Elevated glucose Enlarged prostate Essential hypertension Fatigue GERD (gastroesophageal reflux disease) Glasses Hypercholesterolemia Insomnia LABYRINTHINE DYSFUNCTION Low back pain Low back pain Lower extremity weakness Lumbar nerve root injury inpingement Lumbosacral radiculopathy Mild anemia Mixed hyperlipidemia Muscle weakness Need for vaccination Oral thrush JORGE (obstructive sleep apnea) Osteoarthrosis Palpitations Paroxysmal atrial fibrillation Psoriasis Shortness of breath on exertion Spinal stenosis Upper back pain on right side Vitamin B12 deficiency Historical No qualifying data Procedure/Surgical History Echocardiogram: 03/10/22 Echocardiogram: 10/11/21 CT of thorax: 10/11/21 Cardiac catheterization: 05/27/21 Cardiac catheterization: 05/27/21 Cardiovascular stress testin05/20/21 Stress echocardiography using dobutamine: 08/04/18 Stress echocardiography: 08/04/18 Echocardiography: 08/02/18 Echocardiogram: 08/02/18 Echocardiogram: 03/18/17 Cardiovascular stress testin02/24/17 Laminectomy: 06/01/14 Colonoscopy: 12/23/12 Hernia repair: 1998 ORIF - Open reduction and internal fixation of fracture: 1980 Appendectomy: 194 Appendectomy Hernia Hemorrhoidectomy Medications Home Medications (19) Active albuterol 5 mg/mL (0.5%) inhalation solution 2.5 mg = 0.5 mL, Inhalation, QID budesonide 1 mg/2 mL inhalation suspension 1 mg = 2 mL, Inhalation, BID carvedilol 3.125 mg oral tablet 3.125 mg = 1 tab(s), Oral, BID Crestor 5 mg oral tablet 5 mg = 1 tab(s), Oral, qHS Eliquis 5 mg oral tablet 5 mg = 1 tab(s), Oral, BID finasteride 5 mg oral tablet 5 mg = 1 tab(s), Oral, qDay Flomax 0.4 mg oral capsule 0.8 mg = 2 cap(s), Oral, qHS LORazepam 0.5 mg oral tablet 0.5 mg = 1 tab(s), Oral, qHS Mucinex 600 mg oral tablet, extended release , Oral, q12h Mucus Relief ER 1200 mg oral tablet, extended release 1,200 mg = 1 tab(s), Oral, qAM nitroglycerin 0.4 mg sublingual tablet 0.4 mg = 1 tab(s), PRN, Sublingual, q5min sertraline 50 mg oral tablet 50 mg = 1 tab(s), Oral, qDay spironolactone 25 mg oral tablet 25 mg = 1 tab(s), Oral, qDay Stiolto Respimat 60 ACT 2.5 mcg-2.5 mcg/inh inhalation aerosol 2 puff(s), Inhalation, qDay Tagamet HB 200 mg oral tablet (NF) 200 mg = 1 tab(s), PRN tiZANidine 4 mg oral tablet 4 mg = 1 tab(s), Oral, q8h Tylenol Extra Strength 500 mg oral tablet 500 mg = 1 tab(s), PRN, Oral, q4h Vitamin B12 1000 mcg oral tablet 1,000 mcg = 1 tab(s), Oral, BID Vitamin D3 , qDay Allergies NKA Social History Smoking Status - 01/04/2018 Former smoker Alcohol - Denies Alcohol Use, 04/27/2017 Use: Current. 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 Coronary artery disease: Grandparent. Emphysema of lung: Mother. Heart disease: Negative: Father. Immunizations pneumococcal 13-valent conjugate vaccine: 0 unknown unit (12/24/15) pneumococcal 23-valent vaccine(Pneumovax: 0 unknown unit (07/11/13) pneumococcal 23-valent vaccine(Pneumovax: 0 unknown unit (05/11/06) SARS-CoV-2 (COVID-19) mRNA-1273 vaccine: 0.25 unknown unit (01/10/21) SARS-CoV-2 (COVID-19) mRNA-1273 vaccine: 100 unknown unit (05/11/20) SARS-CoV-2 (COVID-19) mRNA-1273 vaccine: 100 unknown unit (04/13/20) tetanus-diphtheria toxoids: 0 unknown unit (08/27/13) Code Status Code Status - Ordered -- 04/26/22 19:18:00 EST, Full Code, Constant Order Digitally Signed by RAJEEV CAMACHO MD on 04/27/2022 09:02 AM [id number] Evaluation + Plan noteExtracted from: Title:History and Physical Author:RAJEEV CAMACHO Date:04/27/22 Atrial fibrillation with RVR 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 Continue digoxin loading. We will increase patient's to 6.25 milligram twice daily. Patient has been compliant with his Eliquis over the last 30 days. He stated that he has not missed a single dose of Eliquis in the last 30 days. He even took his Eliquis yesterday before going to [facility]. Plan for cardioversion tomorrow. N.p.o. after midnight. As for patient's HFmrEF, continue Coreg and Aldactone. Will defer Entresto for now as patient is hypotensive. We will start this patient on empagliflozin 10 mg daily. Patient does not appear to be significantly volume overloaded during this admission. Repeat echocardiogram in 3 months. As for patient's CAD, continue medical management with Eliquis, Coreg, and atorvastatin. As for patient systemic hypertension, continue current medications. As for patient's dyslipidemia, continue statin therapy. As for patient's JORGE, CPAP at home. As for patient's other comorbidities, we will continue all her home medications/therapies are not currently interfering with this patient's care. Assessment and plan was discussed with Dr. Kahn. Any changes in assessment/plan, will be added as an addendum to this note by the attending physician. I have reviewed all available EKGs, echocardiograms, stress test and cardiac catheterizations. Relevant laboratory data have also been reviewed. This note was transcribed via voice recognition software. Please, forgive any errors or typos, resulting from the use of this technology. Addendum by AZAR KAHN MD on April 27, 2022 17:16:00 EST I have personally seen, examined, and evaluated the patient on the encounter date. I have reviewed the fellow s documentation and agree with the fellow s findings and plan as documented, unless otherwise stated. Patient with now more persistent in atrial fibrillation. Patient with some degree of acute HFpEF. Will add SGLT2 inhibitors. Will plan for DCCV. I would not send patient home on digoxin or diltiazem. Future Scheduled Tests Laboratory* Basic Metabolic Panel 06/30/22 * Basic Metabolic Panel 03/26/22 * Complete Blood Count 06/30/22 * N-Terminal proBNP 06/30/22 * N-Terminal proBNP 03/26/22 Radiology* NM Myocardial Spect Rest/Stress 05/16/21 * XR Chest 2 Views (PA & Lateral) 05/16/21 [facility] 02-12-2023 Progress note Date of Service Spontaneously converted to NSR. 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 Patient stated that she started having some fluttering sensation in his chest. He immediately knew that he was in atrial fibrillation. He was also feeling some lightheadedness and dizziness with ambulation. Therefore, he decided to present himself to [facility] for further evaluation. Patientdenies any chest discomfort at rest or with exertion. Denies any epigastric pain/back pain/neck pain/jaw pain at rest or even with exertion. Patient does have chronic back pain that has unchanged over time. Denies any presyncope or syncopal events. Denies any orthopnea/PND/nocturnal cough. Does report occasional coughing spells. Denies any melena or dyschezia.. Denied any fever/chills/sweats. Passing 4.2 magnesium 2.0. Interval proBNP elevated at 4000-19. High-sensitivity troponin within normal limits at 19.3. TSH 1.80. EKG revealed atrial fibrillation with a ventricular rate of 120 bpm. Left anterior fascicular block. No significant ST-T changes suggestive of ischemia. Echocardiogram done on 03/10/2022 1. Left ventricle: The cavity size is normal. Wall thickness is normal. Systolic function is mildlyreduced. The estimated ejection fraction is 45%. There is mild diffuse hypokinesis. Grade I diastolic dysfunction. 2. Mitral valve: The annulus is mildly calcified. 3. Right ventricle: The RV systolic pressure by Doppler is 19 mm Hg. 4. Right atrium: The estimated right atrial pressure is 3 mm Hg. 5. Pericardium, extracardiac: A prominent pericardial fat pad is present. Review of Systems A thorough 14 point review of system was done, and is negative except for what assisted above in the HPI section. Physical Exam Vitals and Measurements T: 36.6 C (Oral) TMIN: 36.5 C (Oral) TMAX: 36.6 C (Oral) HR: 116(Monitored) RR: 24(Total) BP: 99/68SpO2: 96% HT: 172.7 cm WT: 86.9 kg BMI: 29.14 Weight Dosing Weight: 86.9 kg (04/26/22) General: Patient is under no acute distress,and in no discomfort Head: Normocephalic, Atraumatic Eyes/Ear: Pupils are equal and reactive, No scleral icterus. Nose: Normal appearing nasal nares Mouth: Good oral hygiene, Moist oral mucosa, no pharyngeal erythema or exudates noted, undeviated uvula Neck: Supple, Nontender, No thyromegaly, No JVD, Midline trachea, No lymphadenopathy Chest: Normal breathing effort, clear to auscultation bilaterally Cardiac: Irregularly irregular tachycardic rate, Normal S1-S2, No MGR Abdomen: Soft, Nontender, Normal active bowel sounds Back: No obvious deformities. Genitourinary: Deferred Extremity: Radial pulses 2+ B/L. Warm bilaterally, No pedal edema, no atrophy or skin changes noted Skin: No PATHOLOGIC moles, rashes, lesions or ulcers were noted other than what is listed above Neuro: Alert and Oriented 4, Cranial nerves II to XII grossly intact. No focal deficits grossly noted Psych: Pleasant, Good attention Lab Results WBC: 14.6 10^3/mcL High (04/26/22 12:52:00) RBC: 4.8 10^6/mcL (04/26/22 12:52:00) Hgb: 14.9 G/dL (04/26/22 12:52:00) Hct: 43.9 % (04/26/22 12:52:00) MCV: 91.5 fL (04/26/22 12:52:00) MCH: 31.1 pg (04/26/22 12:52:00) MCHC: 34 G/dL (04/26/22 12:52:00) RDW: 14.7 % High (04/26/22 12:52:00) Platelet: 268 10^3/mcL (04/26/22 12:52:00) MPV: 7.4 fL (04/26/22 12:52:00) Monocyte Distribution Width: 16.78 (04/26/22 12:52:00) Neutrophil %: 76.7 % (04/26/22 12:52:00) Lymphocyte %: 11.2 % (04/26/22 12:52:00) Monocyte %: 9.6 % (04/26/22 12:52:00) Eosinophil %: 1.8 % (04/26/22 12:52:00) Basophil %: 0.7 % (04/26/22 12:52:00) Neutrophil, Absolute: 11.2 10^3/mcL High (04/26/22 12:52:00) Lymphocyte, Absolute: 1.6 10^3/mcL (04/26/22 12:52:00) Monocyte, Absolute: 1.4 10^3/mcL High (04/26/22:52:00) Eosinophil, Absolute: 0.3 10^3/mcL (04/26/22 12:52:00) Basophil, Absolute: 0.1 10^3/mcL (04/26/22 12:52:00) Glucose Level: 125 mg/dL High (04/26/22 12:52:00) Sodium Level: 137 mmol/L (04/26/22 12:52:00) Potassium Level: 4.4 mmol/L (04/26/22 12:52:00) Chloride: 100 mmol/L (04/26/22 12:52:00) CO2: 31 mmol/L (04/26/22:52:00) Electrolyte Balance: 6 mEq/L (04/26/22:52:00) BUN: 17 mg/dL (04/26/22:52:00) Creatinine Lvl (s): 1.22 mg/dL (04/26/22 12:52:00) BUN/Creatinine Ratio: 14 ratio (04/26/22:52:00) Calcium Lvl: 8.2 mg/dL Low (04/26/22 12:52:00) GFR Non-: 57 ml/min/1.73sqm (04/26/22 12:52:00) GFR : 69 ml/min/1.73sqm (04/26/22 12:52:00) N-Terminal proBNP: 4219 pg/mL High (04/26/22 15:38:00) Troponin I High Sensitivity: 19.3 ng/L (04/26/22 12:52:00) Imaging Results and Diagnostics I have reviewed all available EKGs, echocardiograms, stress test and cardiac catheterizations. Relevant laboratory data have also been reviewed. EKG Reviewed. See HPI. 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 Continue digoxin loading. We will increase patient's to 6.25 milligram twice daily. Patient has been compliant with his Eliquis over the last 30 days. He stated that he has not missed a single dose of Eliquis in the last 30days. He even took his Eliquis yesterday before going to [facility]. Plan for cardioversion tomorrow. N.p.o. after midnight. As for patient's HFmrEF, continue Coreg and Aldactone. Will defer Entresto for now as patient is hypotensive. We will start this patient on empagliflozin 10 mg daily. Patient does not appear to be significantly volume overloaded during this admission. Repeat echocardiogram in 3 months. As for patient's CAD, continue medical management with Eliquis, Coreg, and atorvastatin. As for patient systemic hypertension, continue current medications. As for patient's dyslipidemia, continue statin therapy. As for patient's JORGE, CPAP at home. As for patient's other comorbidities, we will continue all her home medications/therapies are not currently interfering with this patient's care. Assessment and plan was discussed with Dr. Kahn. Any changes in assessment/plan, will be added as an addendum to this note by the attending physician. I have reviewed all available EKGs, echocardiograms, stress test and cardiac catheterizations. Relevant laboratory data have also been reviewed. This note was transcribed via voice recognition software. Please, forgive any errors or typos, resulting from the use of this technology. Problem List/Past Medical History Ongoing (HFpEF) heart failure with preserved ejection fraction Acid reflux Arthritis Asbestosis Atrial fibrillation BPH with urinary obstruction CAD in ak chin artery Chronic neck pain Constipation COPD (chronic obstructive pulmonary disease) COPD exacerbation Depression Elevated glucose Enlarged prostate Essential hypertension Fatigue GERD (gastroesophageal reflux disease) Glasses Hypercholesterolemia Insomnia LABYRINTHINE DYSFUNCTION Low back pain Low back pain Lower extremity weakness Lumbar nerve root injury inpingement Lumbosacral radiculopathy Mild anemia Mixed hyperlipidemia Muscle weakness Need for vaccination Oral thrush JORGE (obstructive sleep apnea) Osteoarthrosis Palpitations Paroxysmal atrial fibrillation Psoriasis Shortness of breath on exertion Spinal stenosis Upper back pain on right side Vitamin B12 deficiency Historical No qualifying data Procedure/Surgical History Echocardiogram: 03/10/22 Echocardiogram: 10/11/21 CT of thorax: 10/11/21 Cardiac catheterization: 05/27/21 Cardiac catheterization: 05/27/21 Cardiovascular stress testin05/20/21 Stress echocardiography using dobutamine: 08/04/18 Stress echocardiography: 08/04/18 Echocardiography: 08/02/18 Echocardiogram: 08/02/18 Echocardiogram: 03/18/17 Cardiovascular stress testin02/24/17 Laminectomy: 06/01/14 Colonoscopy: 12/23/12 Hernia repair: 1998 ORIF - Open reduction and internal fixation of fracture: 1980 Appendectomy: 1944 Appendectomy Hernia Hemorrhoidectomy Medications Home Medications (19) Active albuterol 5 mg/mL (0.5%) inhalation solution 2.5 mg = 0.5 mL, Inhalation, QID budesonide 1 mg/2 mL inhalation suspension 1 mg = 2 mL, Inhalation, BID carvedilol 3.125 mg oral tablet 3.125 mg = 1 tab(s), Oral, BID Crestor 5 mg oral tablet 5 mg = 1 tab(s), Oral, qHS Eliquis 5 mg oral tablet 5 mg = 1 tab(s), Oral, BID finasteride 5 mg oral tablet 5 mg = 1 tab(s), Oral, qDay Flomax 0.4 mg oral capsule 0.8 mg = 2 cap(s), Oral, qHS LORazepam 0.5 mg oral tablet 0.5 mg = 1 tab(s), Oral, qHS Mucinex 600 mg oral tablet, extended release , Oral, q12h Mucus Relief ER 1200 mg oral tablet, extended release 1,200 mg = 1 tab(s), Oral, qAM nitroglycerin 0.4 mg sublingual tablet 0.4 mg = 1 tab(s), PRN, Sublingual, q5min sertraline 50 mg oral tablet 50 mg = 1 tab(s), Oral, qDay spironolactone 25 mg oral tablet 25 mg = 1 tab(s), Oral, qDay Stiolto Respimat 60 ACT 2.5 mcg-2.5 mcg/inh inhalation aerosol 2 puff(s), Inhalation, qDay Tagamet HB 200 mg oral tablet (NF) 200 mg = 1 tab(s), PRN tiZANidine 4 mg oral tablet 4 mg = 1 tab(s), Oral, q8h Tylenol Extra Strength 500 mg oral tablet 500 mg = 1 tab(s), PRN, Oral, q4h Vitamin B12 1000 mcg oral tablet 1,000 mcg = 1 tab(s), Oral, BID Vitamin D3 , qDay Allergies NKA Social History Smoking Status - 01/04/2018 Former smoker Alcohol - Denies Alcohol Use, 04/27/2017 Use: Current. 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 Coronary artery disease: Grandparent. Emphysema of lung: Mother. Heart disease: Negative: Father. Immunizations pneumococcal 13-valent conjugate vaccine: 0 unknown unit (12/24/15) pneumococcal 23-valent vaccine(Pneumovax: 0 unknown unit (07/11/13) pneumococcal 23-valent vaccine(Pneumovax: 0 unknown unit (05/11/06) SARS-CoV-2 (COVID-19) mRNA-1273 vaccine: 0.25 unknown unit (01/10/21) SARS-CoV-2 (COVID-19) mRNA-1273 vaccine: 100 unknown unit (05/11/20) SARS-CoV-2 (COVID-19) mRNA-1273 vaccine: 100 unknown unit (04/13/20) tetanus-diphtheria toxoids: 0 unknown unit (08/27/13) Code Status Code Status - Ordered -- 04/26/22 19:18:00 EST, Full Code, Constant Order Digitally Signed by RAJEEV CAMACHO MD on 04/27/2022 09:02 AM [id number] Progress note Respiratory Therapy Evaluation Entered On: 04/26/2022 21:21 EST Performed On: 04/26/2022 21:21 EST by Doreen Adams Respiratory Therapy Evaluation Pulmonary Status : Pulmonary disorder Surgical Status : No surgeries Chest X-Ray : Clear/not ordered Breath Sounds (RT) : Decreased bilaterally Respiratory Pattern (RT) : Increased RR=21-25 Cough (RT) : Strong, non-productive Respiratory Therapy Evaluation Score : 6 Level of Activity : Ambulatory Mental Status : Alert, oriented Respiratory Evaluation Triage Score : 4 - (6-10) Freq: TIDRT & Albuterol Q2hRT prn RT Assessment [Frequency/Schedule] : per protocol TID RT Doreen Adams - 04/26/2022 21:21 EST Digitally Signed by Doreen Adams on 04/26/2022 09:21 PM Digitally Signed by Doreen Adams on 04/26/2022 09:21 PM [id number] Note ORIGINAL EXAMINATION: TWO XRAY VIEWS OF THE CHEST04/26/2022 1:11 pm CHEST AP/PA and LATERAL COMPARISON: 02/14/2022 HISTORY: ORDERING SYSTEM PROVIDED HISTORY: Reason for Exam: Chest Pain FINDINGS: The cardiomediastinal contours are normal. The lungs are emphysematous. There are chronic appearing coarsened interstitial lung markings. There is no focal consolidation, pleural effusion, or pneumothorax. No acute osseous abnormality. IMPRESSION: No acute radiographic findings. Interpreted by: Abhilash Anderson MD Preliminary Report By: Abhilash Anderson MD Electronically signed By Abhilash Anderson MD Dictated Date: 04/26/2022 1:15:47 PM Prelim Date: 04/26/2022 1:17:07 PM Sign Date: 04/26/2022 1:17:07 PM Ordering Provider: GONZALEZ CASTRO [facility]02-11-2023 Note ORIGINAL EXAMINATION: TWO XRAY VIEWS OF THE CHEST04/26/2022 1:11 pm CHEST AP/PA and LATERAL COMPARISON: 02/14/2022 HISTORY: ORDERING SYSTEM PROVIDED HISTORY: Reason for Exam: Chest Pain FINDINGS: The cardiomediastinal contours are normal. The lungs are emphysematous. There are chronic appearing coarsened interstitial lung markings. There is no focal consolidation, pleural effusion, or pneumothorax. No acute osseous abnormality. IMPRESSION: No acute radiographic findings. Interpreted by: Abhilash Anderson MD Preliminary Report By: Abhilash Andesron MD Electronically signed By Abhilash Anderson MD Dictated Date: 04/26/2022 1:15:47 PM Prelim Date: 04/26/2022 1:17:07 PM Sign Date: 04/26/2022 1:17:07 PM [facility] + Plan note Future Scheduled Tests Laboratory* Basic Metabolic Panel 06/30/22 * Basic Metabolic Panel 03/26/22 * Complete Blood Count 06/30/22 * N-Terminal proBNP 06/30/22 * N-Terminal proBNP 03/26/22 Radiology* NM Myocardial Spect Rest/Stress 05/16/21 * XR Chest 2 Views (PA & Lateral) 05/16/21 [facility] 01-11-2023 Evaluation + Plan note Future Scheduled Tests Laboratory* Basic Metabolic Panel 06/06/22 * Basic Metabolic Panel 07/04/22 * Basic Metabolic Panel 08/01/22 * Basic Metabolic Panel 08/29/22 * Basic Metabolic Panel 06/30/22 * Basic Metabolic Panel 03/26/22 * Complete Blood Count 06/30/22 * N-Terminal proBNP 05/23/22 * N-Terminal proBNP 07/04/22 * N-Terminal proBNP 08/01/22 * N-Terminal proBNP 08/29/22 * N-Terminal proBNP 06/30/22 * N-Terminal proBNP 03/26/22 [facility] 01-11-2023 Evaluation + Plan note Future Scheduled Tests Laboratory* Basic Metabolic Panel 07/04/22 * Basic Metabolic Panel 08/01/22 * Basic Metabolic Panel 08/29/22 * Basic Metabolic Panel 06/30/22 * Basic Metabolic Panel 03/26/22 * Complete Blood Count 06/30/22 * N-Terminal proBNP 07/04/22 * N-Terminal proBNP 08/01/22 * N-Terminal proBNP 08/29/22 * N-Terminal proBNP 06/30/22 * N-Terminal proBNP 03/26/22 [facility] 12-02-2022 Hospital Discharge instructions Patient Education 02/14/2022 20:31:39 Atrial Fibrillation Atrial Fibrillation Atrial fibrillation is a condition in which the heart beats in an irregular pattern. It is caused by a problem in the heart's electrical pathways. It can be a sign of heart disease or other health problems that affect the heart. Heart palpitations are the most common symptom of atrial fibrillation. This is the feeling that your heart is fluttering, beating fast, hard, or irregular. When the heart beats too fast, it doesn't pump blood very well. This can cause other symptoms like anxiety, fatigue, shortness of breath, chestpain, dizziness, or fainting. Atrial fibrillation may come and go. It can last from a few hours to a couple of days. Or, it may become chronic, lasting for months at a time or even become permanent. Atrial fibrillation may be caused by heart disease or other conditions in the body that affect the heart: Coronary artery disease (atherosclerosis) High blood pressure Disease of the heart valves Enlarged heart Heart failure Atrial fibrillation can also occur without heart disease because of: Overactive thyroid (hyperthyroid) Chronic lung disease (COPD, emphysema, bronchitis) Heavy alcohol use Cardiac stimulants like cocaine, amphetamines, diet pills, certain decongestant cold medicines, caffeine, or nicotine Infection Blood clot in the lung (pulmonary embolus) Diabetes Chronic kidney disease Obesity Extreme athletic conditioning Treating or removing these causes will help your treatment for atrial fibrillation. It will also make it less likely for the atrial fibrillation to come back. Atrial fibrillation can alternate back and forth with another abnormal rhythm called atrial flutter. Atrial flutter is a more regular heart rhythm and is also associated with an increased stroke risk. Proper treatment can lower your risk for stroke. Home care Follow these guidelines when caring for yourself at home: Go back to your usual activities as soon as you are feeling back to normal. If you smoke, stop smoking. Contact your healthcare provider or a local stop- smoking program for help. Don't use stimulants like alcohol, cocaine, amphetamines, diet pills, certain decongestant cold medicines, caffeine, or nicotine. If your provider prescribed medicine to stop atrial fibrillation from coming back, take it exactly as directed. Some medicines must be taken every day, not just when you have symptoms. This will helpthem work as they should. If you were prescribed warfarin to lower your risk for stroke, have your blood tested on a regular basis as advised by your provider. This will make sure you are getting the dose that is right for you. It also lower your risk for side effects. Follow-up care Follow up with your healthcare provider, or as advised. When to seek medical advice Call your healthcare provider right away if any of these following occur: Shortness of breath or swelling in the legs gets worse Unexpected weight gain Chest pain or the sense that your heart is fluttering or beating fast or hard (palpitations) Any sign of bleeding if you are on a blood thinner Pain, redness, or swelling in one leg Also call your provider right away if you have these signs of stroke: Weakness of an arm or leg or one side of the face Difficulty with speech or vision Extreme drowsiness, confusion, dizziness, or fainting [phone] [employer]. [address] [place] [address]. All rights reserved. This information is not intended as a substitute for professional medical care. Always follow yourhealthcare professional's instructions. Follow Up Care 02/14/2022 18:17:52 With:Go to emergency room if symptoms worsen Address:Unknown When:2-4 days With:AZAR KAHN MD Address: [address] [place] [address] [id number] [facility] [place] [address] [phone] When:3-7 days [facility] 12-02-2022 Note Discharge Instructions Thank you for allowing [facility] to assist you with your healthcare needs. The following is importantdischarge information regarding your hospital visit. Diagnosis from Today's Visit Atrial fibrillation Palpitations What to Do Next Instructions from Your Care Team No qualifying data available. Post Acute Orders No qualifying data available. You Need to Schedule the Following Appointments Follow Up with Go to emergency room if symptoms worsen When Within 2-4 days Follow Up with AZAR KAHN MD When Within 3-7 days Where: [address] [facility] [address] [facility] [place] [address]- [phone] Allergies NKA Medications Please ask your primary doctor or pharmacist before taking any other medication not listed, including over the counter drugs, herbal medications, vitamins and or supplements as they may interact withyour home medications. What How Much When Why Instructions Last Dose Unchanged acetaminophen (Tylenol Extra Strength 500 mg oral tablet) 1 tab(s) by mouth Every 4 hours as needed for as needed for pain Unchanged albuterol (albuterol 2.5 mg/ 3 mL (0.083%) inhalation solution) Unchanged albuterol (albuterol 5 mg/ mL (0.5%) inhalation solution) 0.5 Milliliter by inhalation Four (4) times a day 0.5 ML ADDED TO NEBULIZER WITH BUDESONIDE 4 TIMES A DAY Unchanged apixaban (Eliquis 5 mg oral tablet) 1 tab(s) by mouth Two (2) times a day Unchanged budesonide (budesonide 1 mg/ 2 mL inhalation suspension) 2 Milliliter by inhalation Two (2) times a day Duration: 30 Days Unchanged carvedilol (carvedilol 3.125 mg oral tablet) 1 tab(s) by mouth Two (2) times a day Hypotension Atrial fibrillation Unchanged cholecalciferol (Vitamin D3) Once a day Unchanged cimetidine (Tagamet HB 200 mg oral tablet (NF)) 1 tab(s) As needed for Heartburn Unchanged cyanocobalamin (Vitamin B12 1000 mcg oral tablet) 1 tab(s) by mouth Two (2) times a day Vitamin B12 deficiency Unchanged finasteride (finasteride 5 mg oral tablet) 1 tab(s) by mouth Once a day Duration: 90 Days Unchanged guaiFENesin (Mucinex 600 mg oral tablet, extended release) by mouth Every 12 hours Unchanged isosorbide mononitrate (isosorbide mononitrate 30 mg oral tablet, extended release) 1 tab(s) by mouth Once a day (in the morning) Angina pectoris, 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 Unchanged LORazepam (LORazepam 0.5 mg oral tablet) 1 tab(s) by mouth Daily at bedtime Insomnia Duration: 30 Days Unchanged nitroGLYcerin (nitroglycerin 0.4 mg sublingual tablet) 1 tab(s) under the tongue Every 5 minutes as needed for for chest pain Angina pectoris, 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 Unchanged olodaterol-tiotropium (Stiolto Respimat 60 ACT 2.5 mcg-2.5 mcg/ inh inhalation aerosol) 2 puff(s) by inhalation Once a day Unchanged predniSONE (predniSONE 10 mg oral tablet) TAKE 4 TABS FOR 4 DAYS, 3 TABS FOR 4 DAYS, 2 TABS FOR 4 DAYS, 1 TABS FOR OTHER DAYS Unchanged rosuvastatin (Crestor 5 mg oral tablet) 1 tab(s) by mouth Daily at bedtime Unchanged sertraline (sertraline 50 mg oral tablet) 1 tab(s) by mouth Once a day Unchanged tamsulosin (Flomax 0.4 mg oral capsule) 2 cap by mouth Daily at bedtime BPH associated with nocturia Duration: 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 Bring all medications you take, including over the counter medications, herbals and other supplements with you to your doctor s visit. Patients and families are reminded to discard old lists and to update any records with all medication providers or retail pharmacies. Education Materials Atrial Fibrillation Atrial fibrillation is a condition in which the heart beats in an irregular pattern. It is caused by a problem in the heart's electrical pathways. It can be a sign of heart disease or other health problems that affect the heart. Heart palpitations are the most common symptom of atrial fibrillation. This is the feeling that your heart is fluttering, beating fast, hard, or irregular. When the heart beats too fast, it doesn't pump blood very well. This can cause other symptoms like anxiety, fatigue, shortness of breath, chestpain, dizziness, or fainting. Atrial fibrillation may come and go. It can last from a few hours to a couple of days. Or, it may become chronic, lasting for months at a time or even become permanent. Atrial fibrillation may be caused by heart disease or other conditions in the body that affect the heart: Coronary artery disease (atherosclerosis) High blood pressure Disease of the heart valves Enlarged heart Heart failure Atrial fibrillation can also occur without heart disease because of: Overactive thyroid (hyperthyroid) Chronic lung disease (COPD, emphysema, bronchitis) Heavy alcohol use Cardiac stimulants like cocaine, amphetamines, diet pills, certain decongestant cold medicines, caffeine, or nicotine Infection Blood clot in the lung (pulmonary embolus) Diabetes Chronic kidney disease Obesity Extreme athletic conditioning Treating or removing these causes will help your treatment for atrial fibrillation. It will also make it less likely for the atrial fibrillation to come back. Atrial fibrillation can alternate back and forth with another abnormal rhythm called atrial flutter. Atrial flutter is a more regular heart rhythm and is also associated with an increased stroke risk. Proper treatment can lower your risk for stroke. Home care Follow these guidelines when caring for yourself at home: Go back to your usual activities as soon as you are feeling back to normal. If you smoke, stop smoking. Contact your healthcare provider or a local stop- smoking program for help. Don't use stimulants like alcohol, cocaine, amphetamines, diet pills, certain decongestant cold medicines, caffeine, or nicotine. If your provider prescribed medicine to stop atrial fibrillation from coming back, take it exactly as directed. Some medicines must be taken every day, not just when you have symptoms. This will helpthem work as they should. If you were prescribed warfarin to lower your risk for stroke, have your blood tested on a regular basis as advised by your provider. This will make sure you are getting the dose that is right for you. It also lower your risk for side effects. Follow-up care Follow up with your healthcare provider, or as advised. When to seek medical advice Call your healthcare provider right away if any of these following occur: Shortness of breath or swelling in the legs gets worse Unexpected weight gain Chest pain or the sense that your heart is fluttering or beating fast or hard (palpitations) Any sign of bleeding if you are on a blood thinner Pain, redness, or swelling in one leg Also call your provider right away if you have these signs of stroke: Weakness of an arm or leg or one side of the face Difficulty with speech or vision Extreme drowsiness, confusion, dizziness, or fainting [phone] [employer]. [address] [facility], [place] [address]. All rights reserved. This information is not intended as a substitute for professional medical care. Always follow yourhealthcare professional's instructions. Additional Information VACCINATE! IT SAVES LIVES! Members of the community who have not yet received the COVID-19 vaccine and would like to receive it can visit one of [facility] vaccine clinics. There are many vaccine clinic locations within the [facility]. For locations and available times, please visit [email or web address]. It is important to note that some COVID mobile vaccine clinics are held outdoors and may be canceled in rainy orstormy conditions. To learn more about pediatric vaccinations (ages 5-11), we invite you to visit the [facility] webpage. [email or web address] learn more about the COVID-19 vaccine, we invite you to visit the [facility] website for a list of frequently asked questions. [email or web address] [facility] Patient Portal Access Instructions: Stay connected with your healthcare team and access your personal medical information anytime with the [facility] Patient Portal. If you would like a full copy of your medical records please contact the [facility] Medical Records Department Thursday through Thursday between 8a.m. and 4:30p.m. Please follow the directions below to access the portal: 1.Access the email account you provided upon registration to the hospital.2.Look for an invitation email from [facility].3.Open the email and access the invitation link: Accept Invitation to [facility]4.Fill in the required banks to create your account. Sign into [email or web address] with your username and password that you created in the above steps to stay up to date. You can then view a summary of results, a summary of your visits, and the ability to download your summaries to your computer or send the information securely to a physician. Remember that your healthcare information is confidential, so carefully consider who you will allow to register on the [facility] Patient Portal for access to your information. You can also access the [facility] Patient Portal on the [employer] tip. Simply click on Health Records under codetag and then click on the [email or web address] logo. HOW TO SAFELY DISPOSE OF PRESCRIPTION MEDICATIONS Please use one of the following methods to safely dispose of your unused medications. 1.Use a drug disposal kit: the drug disposal pouch allows you to safely discard your old and unuseddrugs. Ask your nurse to give you one when you are discharged.2.Visit a local take-back location: Many local pharmacies and police departments have programs that collect old and unwanted prescriptiondrugs. Call your local pharmacy or go to http://Barburrito.[email or web address]/6T5Vf5f to find one close to you.3.Make use of household items: Use cat litter or old coffee grounds to dispose medications if other options arenot available. Mix your drugs with these household products, seal them in an airtight container andthrow it into the garbage. Call [facility]: [phone] to be sure your drugs can be disposed of in this way. Some medicines may require a different approach.4.Never flush your medications down the toilet. IF YOU HAVE BEEN PRESCRIBED AN OPIOIDS FOR PAIN If you have been prescribed an opioid (such as hydrocodone, oxycodone or morphine), it is critical to understand the possible side effects and risks of opioid pain medications. Even when taken as directed, opioids can have several side effects including: Tolerance, meaning you might need to take more of a medication for the same pain relief. Nausea, vomiting and/or constipation. Sleepiness, dizziness, dry mouth, confusion, depression or itching. Physical dependence, meaning you have withdrawal symptoms when a medication is stopped ? this can develop within a few days. KNOW YOUR RESPONSIBILITIES It is important to know exactly how much and how often to take the opioid pain medications you are prescribed. Never take opioids in higher amounts or more often than prescribed. Do not combine opioids with alcohol or other drugs that cause drowsiness, such as benzodiazepines, also known as benzos,including diazepam and alprazolam, muscle relaxants or sleep aids. Never sell or share prescriptionopioids. This is illegal. Store opioids in a secure place and out of reach of others (including children, family, friends and visitors). The last page(s) of this document has been signed and retained as a CHART COPY Signatures Patient Education Materials Atrial Fibrillation Medication Leaflets My discharge plan and instructions have been reviewed and explained to me and I,HIRAM DORAN understand my current condition and have read and understand these discharge instructions. I have received a written copy of the plan/instructions. If I have questions, I am aware that I should contact my d octor. 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 No new focal consolidation is identified. The pulmonary vasculature and heart size are within the normal range. There are no signs of pneumothorax or large effusion. IMPRESSION: 1. No signs of an acute cardiopulmonary process 2. Coarse interstitial markings at the lung bases bilaterally suggest pulmonary fibrotic disease, stable. Interpreted by: Gilberto Coleman Preliminary Report By: Gilberto Coleman Electronically signed By Gilberto Coleman Dictated Date: 02/14/2022 7:53:36 PM Prelim Date: 02/14/2022 7:54:59 PM Sign Date: 02/14/2022 7:54:59 PM Ordering Provider: CLAUDIO LANZA [facility]12-02-2022 Note ORIGINAL EXAMINATION: ONE XRAY VIEW OF THE CHEST 02/14/2022 6:55 pm COMPARISON: 05/16/2021 HISTORY: ORDERING SYSTEM PROVIDED HISTORY: Reason for Exam: chest pain FINDINGS: There are bibasilar linear opacities suggest scarring, given the chronicity of this finding. No new focal consolidation is identified. The pulmonary vasculature and heart size are within the normal range. There are no signs of pneumothorax or large effusion. IMPRESSION: 1. No signs of an acute cardiopulmonary process 2. Coarse interstitial markings at the lung bases bilaterally suggest pulmonary fibrotic disease, stable. Interpreted by: Gilberto Coleman Preliminary Report By: Gilberto Coleman Electronically signed By Gilberto Coleman Dictated Date: 02/14/2022 7:53:36 PM Prelim Date: 02/14/2022 7:54:59 PM Sign Date: 02/14/2022 7:54:59 PM [facility]ing [facility] Note ORIGINAL EXAMINATION: CT OF THE CHEST WITH CONTRAST 10/11/2021 1:42 pm TECHNIQUE: CT of the chest was performed with the administration of intravenous contrast. Multiplanar reformatted images are provided for review. Automated exposure control, iterative reconstruction, and/or weight based adjustment of the mA/kV was utilized to reduce the radiation dose to as low as reasonably achievable. COMPARISON: October 02, 2015 HISTORY: ORDERING SYSTEM PROVIDED HISTORY: Reason for Exam: COPD, persistent wheezing and cough FINDINGS: Minor degenerative changes are noted in the spine. Areas of predominantly reticular interstitial prominence are evident bilaterally, greatest at the posterior lower lobes bilaterally and at the posterior aspect of the lingula. There is mild associated cylindrical bronchiectasis at the lower lobes with minimal bronchial wall thickening. There is no confluent airspace disease seen and no pleural fluid is visible. No mediastinal adenopathy is visible. Pulmonary artery measures 3.1 cm. Very small sliding hiatal hernia noted. No additional contributory finding. IMPRESSION: Findings are most compatible with interstitial pulmonary fibrosis greatest at the posterior lower lobes, with mild bronchiectasis. Mild bronchial wall thickening suggest an element of chronic bronchitis. No definite acute abnormality seen. Mildly prominent pulmonary artery which may be seen with pulmonary hypertension. Interpreted by: Louis Solano MD Preliminary Report By: Louis Solano MD Electronically signed By Louis Solano MD Dictated Date: 10/11/2021 2:28:53 PM Prelim Date: 10/11/2021 2:31:55 PM Sign Date: 10/11/2021 2:31:55 PM Ordering Provider: MALISSA RASCON [facility]07-29-2022 Note ORIGINAL EXAMINATION: CT OF THE CHEST WITH CONTRAST 10/11/2021 1:42 pm TECHNIQUE: CT of the chest was performed with the administration of intravenous contrast. Multiplanar reformatted images are provided for review. Automated exposure control, iterative reconstruction, and/or weight based adjustment of the mA/kV was utilized to reduce the radiation dose to as low as reasonably achievable. COMPARISON: October 02, 2015 HISTORY: ORDERING SYSTEM PROVIDED HISTORY: Reason for Exam: COPD, persistent wheezing and cough FINDINGS: Minor degenerative changes are noted in the spine. Areas of predominantly reticular interstitial prominence are evident bilaterally, greatest at the posterior lower lobes bilaterally and at the posterior aspect of the lingula. There is mild associated cylindrical bronchiectasis at the lower lobes with minimal bronchial wall thickening. There is no confluent airspace disease seen and no pleural fluid is visible. No mediastinal adenopathy is visible. Pulmonary artery measures 3.1 cm. Very small sliding hiatal hernia noted. No additional contributory finding. IMPRESSION: Findings are most compatible with interstitial pulmonary fibrosis greatest at the posterior lower lobes, with mild bronchiectasis. Mild bronchial wall thickening suggest an element of chronic bronchitis. No definite acute abnormality seen. Mildly prominent pulmonary artery which may be seen with pulmonary hypertension. Interpreted by: Louis Solano MD Preliminary Report By: Louis Solano MD Electronically signed By Louis Solano MD Dictated Date: 10/11/2021 2:28:53 PM Prelim Date: 10/11/2021 2:31:55 PM Sign Date: 10/11/2021 2:31:55 PM [facility]ing [facility] + Plan note Future Scheduled Tests Laboratory* Vitamin B12 Level 11/26/20 * Vitamin B12 Level 12/03/20 * Lipid Profile 03/04/21 * Complete Metabolic Panel 03/04/21 Radiology* NM Myocardial Spect Rest/Stress 05/16/21 * XR Chest 2 Views (PA & Lateral) 05/16/21 [facility] Evaluation + Plan note Future Appointments Appointment Date:02/26/2021 02:30:00 PM Scheduled Provider:MALISSA RASCON MD Location:[facility] Appointment Type:PC OV Follow Up Future Scheduled Tests Laboratory* Vitamin B12 Level 11/26/20 * Vitamin B12 Level 12/03/20 * Lipid Profile 03/04/21 * Complete Metabolic Panel 03/04/21 Radiology* XR Hip Minimum 4 Views Bilateral 07/16/20 * XR Spine Lumbar AP/LAT 07/16/20 [facility] Evaluation + Plan note Future Appointments Appointment Date:06/11/2021 01:30:00 PM Scheduled Provider: Location:[facility] Appointment Type:PC Nurse Future Scheduled Tests Laboratory* Vitamin B12 Level 11/26/20 * Vitamin B12 Level 12/03/20 * Lipid Profile 03/04/21 * Complete Metabolic Panel 03/04/21 Radiology* NM Myocardial Spect Rest/Stress 05/16/21 * NM Myocardial Spect Rest/Stress 05/16/21 * XR Chest 2 Views (PA & Lateral) 05/16/21 * XR Hip Minimum 4 Views Bilateral 07/16/20 * XR Spine Lumbar AP/LAT 07/16/20 [facility] Evaluation + Plan note Future Appointments Appointment Date:06/11/2021 01:30:00 PM Scheduled Provider: Location:[facility] Appointment Type:PC Nurse Future Scheduled Tests Laboratory* Vitamin B12 Level 11/26/20 * Vitamin B12 Level 12/03/20 * Lipid Profile 03/04/21 * Complete Metabolic Panel 03/04/21 Radiology* NM Myocardial Spect Rest/Stress 05/16/21 * XR Chest 2 Views (PA & Lateral) 05/16/21 * XR Hip Minimum 4 Views Bilateral 07/16/20 * XR Spine Lumbar AP/LAT 07/16/20 [facility] Evaluation + Plan note Future Appointments Appointment Date:09/04/2021 10:30:00 AM Scheduled Provider:MALISSA RASCON MD Location:[facility] Appointment Type:PC OV Appointment Date:09/12/2021 01:00:00 PM Scheduled Provider: Location:[facility] Appointment Type:PC Nurse Injection Future Scheduled Tests Laboratory* Vitamin B12 Level 11/26/20 * Vitamin B12 Level 12/03/20 * Lipid Profile 03/04/21 * Complete Metabolic Panel 03/04/21 Radiology* NM Myocardial Spect Rest/Stress 05/16/21 * XR Chest 2 Views (PA & Lateral) 05/16/21 [facility] Evaluation + Plan note Future Appointments Appointment Date:10/15/2021 01:15:00 PM Scheduled Provider: Location:[facility] Appointment Type:PC Nurse Injection Future Scheduled Tests Laboratory* Vitamin B12 Level 11/26/20 * Vitamin B12 Level 12/03/20 * Lipid Profile 03/04/21 * Complete Metabolic Panel 03/04/21 Radiology* NM Myocardial Spect Rest/Stress 05/16/21 * XR Chest 2 Views (PA & Lateral) 05/16/21 [facility] Evaluation + Plan note Future Appointments Appointment Date:02/26/2022 03:00:00 PM Scheduled Provider: Location:[facility] Appointment Type:CV STAFF CLIMATE SCIENTIST Future Scheduled Tests Laboratory* Lipid Profile 03/04/21 * Complete Metabolic Panel 03/04/21 Radiology* NM Myocardial Spect Rest/Stress 05/16/21 * XR Chest 2 Views (PA & Lateral) 05/16/21 [facility] evaluation + Plan note Future Appointments Appointment Date:03/10/2022 01:00:00 PM Scheduled Provider: Location:[facility] Appointment Type:CV Procedure - AO Echo Appointment Date:04/01/2022 11:30:00 AM Scheduled Provider: Location:[facility] Appointment Type:CV OV Future Scheduled Tests Laboratory* Basic Metabolic Panel 03/12/22 * Basic Metabolic Panel 03/26/22 * Lipid Profile 03/04/21 * Complete Metabolic Panel 03/04/21 * N-Terminal proBNP 03/12/22 * N-Terminal proBNP 03/26/22 Radiology* NM Myocardial Spect Rest/Stress 05/16/21 * XR Chest 2 Views (PA & Lateral) 05/16/21 [facility] Evaluation + Plan note Future Appointments Appointment Date:04/01/2022 11:30:00 AM Scheduled Provider: Location:[facility] Appointment Type:CV OV Future Scheduled Tests Laboratory* Basic Metabolic Panel 03/26/22 * Lipid Profile 03/04/21 * Complete Metabolic Panel 03/04/21 * N-Terminal proBNP 03/26/22 Radiology* NM Myocardial Spect Rest/Stress 05/16/21 * XR Chest 2 Views (PA & Lateral) 05/16/21 [facility] evaluation + Plan note Future Appointments Appointment Date:05/23/2022 10:15:00 AM Scheduled Provider: Location:[facility] Appointment Type:CV OV Future Scheduled Tests Laboratory* Basic Metabolic Panel 06/30/22 * Basic Metabolic Panel 03/26/22 * Complete Blood Count 06/30/22 * N-Terminal proBNP 06/30/22 * N-Terminal proBNP 03/26/22 Radiology* NM Myocardial Spect Rest/Stress 05/16/21 * XR Chest 2 Views (PA & Lateral) 05/16/21 [facility] Evaluation + Plan note Future Appointments Appointment Date:09/19/2022 11:30:00 AM Scheduled Provider: Location:[facility] Appointment Type:CV OV Future Scheduled Tests Laboratory* Basic Metabolic Panel 08/01/22 * Basic Metabolic Panel 08/29/22 * Basic Metabolic Panel 06/30/22 * Basic Metabolic Panel 03/26/22 * Complete Blood Count 06/30/22 * N-Terminal proBNP 08/01/22 * N-Terminal proBNP 08/29/22 * N-Terminal proBNP 06/30/22 * N-Terminal proBNP 03/26/22 [facility] Evaluation + Plan note Future Appointments Appointment Date:09/17/2022 11:00:00 AM Scheduled Provider:MALISSA RASCON MD Location:[facility] Appointment Type:PC OV Appointment Date:09/19/2022 11:30:00 AM Scheduled Provider: Location:[facility] Appointment Type:CV OV Future Scheduled Tests Laboratory* Basic Metabolic Panel 08/01/22 * Basic Metabolic Panel 08/29/22 * Basic Metabolic Panel 06/30/22 * Basic Metabolic Panel 03/26/22 * Complete Blood Count 06/30/22 * N-Terminal proBNP 08/01/22 * N-Terminal proBNP 08/29/22 * N-Terminal proBNP 06/30/22 * N-Terminal proBNP 03/26/22 Radiology* XR Shoulder Minimum 2 Views Right 08/27/22 [facility] Evaluation + Plan note Future Appointments Appointment Date:09/17/2022 11:00:00 AM Scheduled Provider:MALISSA RASCON MD Location:[facility] Appointment Type:PC OV Appointment Date:09/19/2022 11:30:00 AM Scheduled Provider: Location:[facility] Appointment Type:CV OV Future Scheduled Tests Laboratory* Basic Metabolic Panel 08/01/22 * Basic Metabolic Panel 06/30/22 * Basic Metabolic Panel 03/26/22 * Complete Blood Count 06/30/22 * N-Terminal proBNP 08/01/22 * N-Terminal proBNP 06/30/22 * N-Terminal proBNP 03/26/22 [facility] Evaluation + Plan note Future Appointments Appointment Date:10/01/2022 09:45:00 AM Scheduled Provider: Location:[facility] Appointment Type:PC Nurse Future Scheduled Tests Laboratory* Basic Metabolic Panel 03/22/23 * Basic Metabolic Panel 08/01/22 * Basic Metabolic Panel 06/30/22 * Basic Metabolic Panel 03/26/22 * Complete Blood Count 03/22/23 * Complete Blood Count 06/30/22 * N-Terminal proBNP 03/22/23 * N-Terminal proBNP 08/01/22 * N-Terminal proBNP 06/30/22 * N-Terminal proBNP 03/26/22 [facility] Evaluation + Plan note Future Appointments Appointment Date:10/22/2022 01:00:00 PM Scheduled Provider:MALISSA RASCON MD Location:[facility] Appointment Type:PC OV Follow Up Future Scheduled Tests Laboratory* Basic Metabolic Panel 03/22/23 * Basic Metabolic Panel 08/01/22 * Basic Metabolic Panel 06/30/22 * Basic Metabolic Panel 03/26/22 * Complete Blood Count 03/22/23 * Complete Blood Count 06/30/22 * N-Terminal proBNP 03/22/23 * N-Terminal proBNP 08/01/22 * N-Terminal proBNP 06/30/22 * N-Terminal proBNP 03/26/22 [facility] evaluation + Plan note Future Appointments Appointment Date:11/05/2022 01:00:00 PM Scheduled Provider:MALISSA RASCON MD Location[facility] Appointment Type:PC OV Future Scheduled Tests Laboratory* Basic Metabolic Panel 03/22/23 * Basic Metabolic Panel 08/01/22 * Basic Metabolic Panel 06/30/22 * Basic Metabolic Panel 03/26/22 * Complete Blood Count 03/22/23 * Complete Blood Count 06/30/22 * N-Terminal proBNP 03/22/23 * N-Terminal proBNP 08/01/22 * N-Terminal proBNP 06/30/22 * N-Terminal proBNP 03/26/22 [facility] Evaluation + Plan note Future Appointments Appointment Date:11/24/2022 01:30:00 PM Scheduled Provider: Location:[facility] Appointment Type:PT Treatment [facility] Appointment Date:11/27/2022 01:30:00 PM Scheduled Provider: Location:[facility] Appointment Type:PT [facility] Appointment Date:12/01/2022 10:00:00 AM Scheduled Provider: Location:[facility] Appointment Type:yyNM Inj Bone Imaging Whole Body1 Appointment Date:12/01/2022 01:00:00 PM Scheduled Provider: Location:[facility] Appointment Type:yyNM Bone Imaging Whole Body Scan Appointment Date:12/03/2022 02:30:00 PM Scheduled Provider: Location:[facility] Appointment Type:PT Treatment [facility] Appointment Date:12/09/2022 02:30:00 PM Scheduled Provider:MALISSA RASCON MD Location:[facility] Appointment Type: OV Future Scheduled Tests Laboratory* Basic Metabolic Panel 03/22/23 * Basic Metabolic Panel 08/01/22 * Basic Metabolic Panel 06/30/22 * Basic Metabolic Panel 03/26/22 * Complete Blood Count 03/22/23 * Complete Blood Count 06/30/22 * N-Terminal proBNP 03/22/23 * N-Terminal proBNP 08/01/22 * N-Terminal proBNP 06/30/22 * N-Terminal proBNP 03/26/22 Radiology* NM Bone Imaging Whole Body 11/05/22 * NM Bone Imaging Whole Body 12/01/22 * XR Pelvis 1 or 2 Views 11/05/22 * XR Hip 3-4 Views Bilateral 11/05/22 [facility] Evaluation + Plan note Future Appointments Appointment Date:12/03/2022 02:30:00 PM Scheduled Provider: Location:[facility] Appointment Type:PT [facility] Appointment Date:12/03/2022 03:15:00 PM Scheduled Provider:NIKO MARTÍNEZ Location:[facility] Appointment Type:CV OV Appointment Date:12/09/2022 02:30:00 PM Scheduled Provider:MALISSA RASCON MD Location:[facility] Appointment Type:PC OV Appointment Date:01/09/2023 01:00:00 PM Scheduled Provider: Location:[facility] Appointment Type:CV OV Future Scheduled Tests Laboratory* Basic Metabolic Panel 03/22/23 * Basic Metabolic Panel 08/01/22 * Basic Metabolic Panel 06/30/22 * Basic Metabolic Panel 03/26/22 * Complete Blood Count 03/22/23 * Complete Blood Count 06/30/22 * N-Terminal proBNP 03/22/23 * N-Terminal proBNP 08/01/22 * N-Terminal proBNP 06/30/22 * N-Terminal proBNP 03/26/22 Radiology* NM Bone Imaging Whole Body 11/05/22 * MRI Spine Lumbar w/o Contrast 11/28/22 [facility] Evaluation + Plan note Future Appointments Appointment Date:01/09/2023 01:00:00 PM Scheduled Provider: Location:[facility] Appointment Type:CV OV Future Scheduled Tests Laboratory* Basic Metabolic Panel 03/22/23 * Basic Metabolic Panel 08/01/22 * Basic Metabolic Panel 06/30/22 * Basic Metabolic Panel 03/26/22 * Complete Blood Count 03/22/23 * Complete Blood Count 06/30/22 * N-Terminal proBNP 03/22/23 * N-Terminal proBNP 08/01/22 * N-Terminal proBNP 06/30/22 * N-Terminal proBNP 03/26/22 Radiology* NM Bone Imaging Whole Body 11/05/22 * MRI Spine Lumbar w/ + w/o Contrast 12/23/22 [facility] evaluation + Plan note Future Appointments Appointment Date:02/02/2023 02:00:00 PM Scheduled Provider: Location:[facility] Appointment Type:CV 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 SCIENTIST Future Scheduled Tests Laboratory* Basic Metabolic Panel 04/11/23 * Basic Metabolic Panel 03/22/23 * Basic Metabolic Panel 08/01/22 * Basic Metabolic Panel 06/30/22 * Basic Metabolic Panel 03/26/22 * Complete Blood Count 04/11/23 * Complete Blood Count 03/22/23 * Complete Blood Count 06/30/22 * N-Terminal proBNP 04/11/23 * N-Terminal proBNP 03/22/23 * N-Terminal proBNP 08/01/22 * N-Terminal proBNP 06/30/22 * N-Terminal proBNP 03/26/22 Radiology* NM Bone Imaging Whole Body 11/05/22 * MRI Spine Lumbar w/ + w/o Contrast 12/23/22 [facility] Evaluation + Plan note Future Appointments Appointment Date:03/23/2023 04:15:00 PM Scheduled Provider: Location:[facility] Appointment Type:CV OV Future Scheduled Tests Laboratory* Basic Metabolic Panel 04/11/23 * Basic Metabolic Panel 03/22/23 * Basic Metabolic Panel 08/01/22 * Basic Metabolic Panel 06/30/22 * Basic Metabolic Panel 03/26/22 * Complete Blood Count 04/11/23 * Complete Blood Count 03/22/23 * Complete Blood Count 06/30/22 * N-Terminal proBNP 04/11/23 * N-Terminal proBNP 03/22/23 * N-Terminal proBNP 08/01/22 * N-Terminal proBNP 06/30/22 * N-Terminal proBNP 03/26/22 Radiology* NM Bone Imaging Whole Body 11/05/22 * MRI Spine Lumbar w/ + w/o Contrast 12/23/22 [facility] Evaluation + Plan note Future Appointments Appointment Date:02/27/2023 09:45:00 AM Scheduled Provider: Location:[facility] Appointment Type:CV OV Appointment Date:03/23/2023 04:15:00 PM Scheduled Provider: Location:[facility] Appointment Type:CV OV Future Scheduled Tests Laboratory* Basic Metabolic Panel 04/11/23 * Basic Metabolic Panel 03/22/23 * Basic Metabolic Panel 08/01/22 * Basic Metabolic Panel 06/30/22 * Basic Metabolic Panel 03/26/22 * Complete Blood Count 04/11/23 * Complete Blood Count 03/22/23 * Complete Blood Count 06/30/22 * N-Terminal proBNP 04/11/23 * N-Terminal proBNP 03/22/23 * N-Terminal proBNP 08/01/22 * N-Terminal proBNP 06/30/22 * N-Terminal proBNP 03/26/22 Radiology* NM Bone Imaging Whole Body 11/05/22 * MRI Spine Lumbar w/ + w/o Contrast 12/23/22 [facility] Evaluation + Plan note Future Appointments Appointment Date:03/23/2023 04:15:00 PM Scheduled Provider: Location:[facility] Appointment Type:CV OV Appointment Date:04/17/2023 11:00:00 AM Scheduled Provider: Location:[facility] Appointment Type:EP Ablation Cryo-Ensite Appointment Date:06/01/2023 01:45:00 PM Scheduled Provider: Location:[facility] Appointment Type:CV OV Future Scheduled Tests Laboratory* Basic Metabolic Panel 04/11/23 * Basic Metabolic Panel 05/29/23 * Basic Metabolic Panel 03/22/23 * Basic Metabolic Panel 08/01/22 * Basic Metabolic Panel 06/30/22 * Basic Metabolic Panel 03/26/22 * Complete Blood Count 04/11/23 * Complete Blood Count 05/29/23 * Complete Blood Count 03/22/23 * Complete Blood Count 06/30/22 * N-Terminal proBNP 04/11/23 * N-Terminal proBNP 05/29/23 * N-Terminal proBNP 03/22/23 * N-Terminal proBNP 08/01/22 * N-Terminal proBNP 06/30/22 * N-Terminal proBNP 03/26/22 Radiology* NM Bone Imaging Whole Body 11/05/22 * MRI Spine Lumbar w/ + w/o Contrast 12/23/22 [facility] Evaluation + Plan note Future Appointments Appointment Date:03/23/2023 04:15:00 PM Scheduled Provider: Location:[facility] Appointment Type:CV OV Appointment Date:04/17/2023 11:00:00 AM Scheduled Provider: Location:[facility] Appointment Type:EP Ablation Cryo-Ensite Appointment Date:06/01/2023 01:45:00 PM Scheduled Provider: Location:[facility] Appointment Type:CV OV Diagnostic Tests Pending * Shiga Toxins 1 and 2 03/13/23 Future Scheduled Tests Laboratory* Basic Metabolic Panel 04/11/23 * Basic Metabolic Panel 05/29/23 * Basic Metabolic Panel 03/22/23 * Basic Metabolic Panel 08/01/22 * Basic Metabolic Panel 06/30/22 * Basic Metabolic Panel 03/26/22 * Complete Blood Count 04/11/23 * Complete Blood Count 05/29/23 * Complete Blood Count 03/22/23 * Complete Blood Count 06/30/22 * N-Terminal proBNP 04/11/23 * N-Terminal proBNP 05/29/23 * N-Terminal proBNP 03/22/23 * N-Terminal proBNP 08/01/22 * N-Terminal proBNP 06/30/22 * N-Terminal proBNP 03/26/22 Radiology* NM Bone Imaging Whole Body 11/05/22 * MRI Spine Lumbar w/ + w/o Contrast 12/23/22 [facility] Evaluation + Plan note Future Appointments Appointment Date:06/04/2023 01:30:00 PM Scheduled Provider:MALISSA RASCON MD [facility] Appointment Type:PC OV Appointment Date:06/05/2023 01:15:00 PM Scheduled Provider: Location:[facility] Appointment Type:CV OV Appointment Date:06/15/2023 11:00:00 AM Scheduled Provider: Location:[facility] Appointment Type:PC Nurse Lab Appointment Date:06/26/2023 03:00:00 PM Scheduled Provider:MALISSA RASCON MD Location:[facility] Appointment Type:PC OV Future Scheduled Tests Laboratory* Basic Metabolic Panel 08/01/22 * Basic Metabolic Panel 06/30/22 * Complete Blood Count 06/30/22 * Complete Metabolic Panel 03/19/23 * N-Terminal proBNP 08/01/22 * N-Terminal proBNP 06/30/22 Radiology* NM Bone Imaging Whole Body 11/05/22 * MRI Spine Lumbar w/ + w/o Contrast 12/23/22 [facility] Evaluation + Plan note Future Appointments Appointment Date:07/03/2023 02:45:00 PM Scheduled Provider: Location:[facility] Appointment Type:PC Nurse Future Scheduled Tests Laboratory* Basic Metabolic Panel 08/01/22 * Basic Metabolic Panel 06/30/22 * Basic Metabolic Panel 09/05/23 * Complete Blood Count 06/30/22 * Complete Blood Count 09/05/23 * N-Terminal proBNP 06/30/22 * N-Terminal proBNP 09/05/23 Radiology* NM Bone Imaging Whole Body 11/05/22 * MRI Spine Lumbar w/ + w/o Contrast 12/23/22 * XR Chest 2 Views/Decub 06/04/23 [facility] Evaluation + Plan note Future Appointments Appointment Date:08/07/2023 02:45:00 PM Scheduled Provider: Location:[facility] Appointment Type:PC Nurse Injection Appointment Date:09/11/2023 02:45:00 PM Scheduled Provider: Location:[facility] Appointment Type:CV OV Future Scheduled Tests Laboratory* Basic Metabolic Panel 08/01/22 * Basic Metabolic Panel 07/13/23 * N-Terminal proBNP 07/13/23 Radiology* NM Bone Imaging Whole Body 11/05/22 * MRI Spine Lumbar w/ + w/o Contrast 12/23/22 * XR Chest 2 Views/Decub 06/04/23 [facility] Evaluation + Plan note Future Appointments Appointment Date:10/08/2023 02:45:00 PM Scheduled Provider: Location:[facility] Appointment Type:PC Nurse Injection Future Scheduled Tests Laboratory* Basic Metabolic Panel 12/12/23 * Complete Blood Count 12/12/23 * N-Terminal proBNP 12/12/23 Radiology* NM Bone Imaging Whole Body 11/05/22 * MRI Spine Lumbar w/ + w/o Contrast 12/23/22 * XR Chest 2 Views/Decub 06/04/23 [facility] Evaluation + Plan note Future Appointments Appointment Date:04/11/2024 10:45:00 AM Scheduled Provider:KRISTEN KAHN Location:[facility] Appointment Type:CV OV Future Scheduled Tests Laboratory* Basic Metabolic Panel 04/21/24 * Basic Metabolic Panel 12/12/23 * Complete Blood Count 04/21/24 * Complete Blood Count 12/12/23 * N-Terminal proBNP 04/21/24 * N-Terminal proBNP 12/12/23 Radiology* XR Chest 2 Views/Decub 06/04/23 [facility] Evaluation + Plan note Future Appointments Appointment Date:08/29/2024 10:00:00 AM Scheduled Provider: Location:[facility] Appointment Type:PC Nurse Lab Appointment Date:09/01/2024 02:00:00 PM Scheduled Provider:MALISSA RASCON MD Location:[facility] Appointment Type:PC OV Future Scheduled Tests Laboratory* Basic Metabolic Panel 09/23/24 * Basic Metabolic Panel 06/24/24 * Basic Metabolic Panel 12/12/23 * Ferritin 06/03/24 * Iron Level 06/03/24 * Complete Blood Count 09/23/24 * Complete Blood Count 06/24/24 * Complete Blood Count 12/12/23 * Complete Blood Count 06/03/24 * Lipid Profile 09/03/24 * Vitamin D Level 06/03/24 * Complete Metabolic Panel 09/03/24 * N-Terminal proBNP 09/23/24 * N-Terminal proBNP 06/24/24 * N-Terminal proBNP 12/12/23 [facility] Evaluation + Plan note Future Appointments Appointment Date:09/14/2024 11:15:00 AM Scheduled Provider:KRISTEN KAHN Location:[facility] Appointment Type:CV OV Appointment Date:09/23/2024 02:30:00 PM Scheduled Provider:MALISSA RASCON MD Location:[facility] Appointment Type:PC OV Future Scheduled Tests Laboratory* Basic Metabolic Panel 12/12/23 * Complete Blood Count 12/12/23 * N-Terminal proBNP 09/23/24 * N-Terminal proBNP 12/12/23 [facility] Evaluation noteNo assessment information available [facility] Work Phone: evaluation note* Diagnosis Onset Date Resolution Status ABLA (acute blood loss anemia) acute Atherosclerotic heart diseas e of ak chin coronary artery without angina pectoris acute COPD (chronic obstructive pulmonary disease) chronic Paroxysmal atrial fibrillation chronic [facility] Work Phone: evaluation note* Diagnosis Onset Date Resolution Status ABLA (acute blood loss anemia) acute Atherosclerotic heart diseas e of ak chin coronary artery without angina pectoris acute Neck pain acute COPD (chronic obstructive pulmonary disease) chronic Paroxysmal atrial fibrillation [facility] Work Phone: Evaluation note* Diagnosis Onset Date Resolution Status Acute diverticulitis acute Atherosclerotic heart diseas e of ak chin coronary artery without angina pectoris acute Neck pain acute COPD (chronic obstructive pulmonary disease) chronic Paroxysmal atrial fibrillation chronic ABLA (acute blood loss anemia) resolved Acute diverticulitis acute Anxiety acute Atrial fibrillation with RVR acute BPH (benign prostatic hyperplasia) acute Coronary artery disease acut e Debility acute Depression acute GERD (gastroesophageal reflux disease) acute Retroperitoneal bleed acute COPD (chronic obstructive pulmonary disease) chronic Hyperlipidemia [facility] Work Phone: Evaluation note* Diagnosis Onset Date Resolution Status Atherosclerotic heart diseas e of ak chin coronary artery without angina pectoris acute Neck pain acute COPD (chronic obstructive pulmonary disease) chronic Paroxysmal atrial fibrillation chronic ABLA (acute blood loss anemia) resolved Acute diverticulitis resolve d Anxiety acute Atrial fibrillation with RVR acute BPH (benign prostatic hyperplasia) acute Coronary artery disease acut e Debility acute Depression acute GERD (gastroesophageal reflux disease) acute COPD (chronic obstructive pulmonary disease) chronic Hyperlipidemia chronic Acute diverticulitis resolve d Retroperitoneal bleed resolv ed [facility] Work Phone: Evaluation note* Diagnosis Acute cholecystitis with chronic cholecystitis- Primary Acute and chronic cholecystitis Chronic heart failure with preserved ejection fraction (HCC) Pulmonary hypertension (HCC) Other chronic pulmonary heart diseases Acalculous cholecystitis Cholecystitis, unspecified Longstanding persistent atrial fibrillation (HCC) Anticoagulant long-term use Long-term (current) use of anticoagulants Malnutrition of moderate degree (HCC) Malnutrition of moderate degree [facility] Diagnosis Acute acalculous cholecystitis- Primary Acute cholecystitis [facility] Diagnosis Chronic cholecystitis without calculus- Primary Chronic cholecystitis Acute acalculous cholecystitis Acute cholecystitis [facility] Diagnosis Acute cholecystitis with chronic cholecystitis- Primary Acute and chronic cholecystitis Pulmonary hypertension (HCC) Other chronic pulmonary heart diseases Malnutrition of moderate degree (HCC) Malnutrition of moderate degree Longstanding persistent atrial fibrillation (HCC) At risk for delirium COMANCHE (hard of hearing) Unspecified hearing loss Chronic heart failure with preserved ejection fraction (HCC) Atrial fibrillation, unspecified type (HCC) Chronic obstructive pulmonary disease, unspecified COPD type (HCC) Hyperlipidemia, unspecified hyperlipidemia type Pre-op exam- Primary Preoperative examination, unspecified Paroxysmal atrial fibrillation (HCC) Atrial fibrillation Chronic obstructive pulmonary disease, unspecified COPD type (HCC) Chronic heart failure with preserved ejection fraction (HCC) Hyperlipidemia, unspecified hyperlipidemia type Hypotension, unspecified hypotension type Gastroesophageal reflux disease, unspecified whether esophagitis present History of echocardiogram Other specified personal history presenting hazards to health History of EKG Other specified personal history presenting hazards to health Abscess of left lung without pneumonia, unspecified part of lung (HCC) Acalculous cholecystitis Cholecystitis, unspecified Former smoker Personal history of tobacco use, presenting hazards to health Coronary artery disease, occlusive Acute myocardial infarction, unspecified site, episode of care unspecified Anemia, unspecified type Sleep apnea, unspecified type Acute acalculous cholecystitis Acute cholecystitis documented in this encounter [facility] note* Diagnosis Pre-op exam- Primary Preoperative examination, unspecified Paroxysmal atrial fibrillation (HCC) Atrial fibrillation Chronic obstructive pulmonary disease, unspecified COPD type (HCC) Chronic heart failure with preserved ejection fraction (HCC) Hyperlipidemia, unspecified hyperlipidemia type Hypotension, unspecified hypotension type Gastroesophageal reflux disease, unspecified whether esophagitis present History of echocardiogram Other specified personal history presenting hazards to health History of EKG Other specified personal history presenting hazards to health Abscess of left lung without pneumonia, unspecified part of lung (HCC) Acalculous cholecystitis Cholecystitis, unspecified Former smoker Personal history of tobacco use, presenting hazards to health Coronary artery disease, occlusive Acute myocardial infarction, unspecified site, episode of care unspecified Anemia, unspecified type Sleep apnea, unspecified type Cavities, tooth Acute acalculous cholecystitis Acute cholecystitis * Assessment & Plan Note - Tiffany Cabrera APRN.CNP - 02/19/2024 1:49 PM EST Associated Problem(s): Cavities, tooth -Poor dental health -Bottom teeth. Dr. Izquierdo would like anesthesia to know about teeth. thinks poor dental health caused the lung infection. Please be careful not to bump or knock out teeth. * Assessment & Plan Note - Tiffany Cabrera APRN.CNP - 02/16/2024 5:09 PM EST Associated Problem(s): Sleep apnea -3L with CPAP - please bring -No oxygen during the day -Pneumo Dec 2023- Gokul -Pneumo after lung biopsy -No oxygen during the day after chest tube was removed (chest tube x2 days) * Assessment & Plan Note - Tiffany Cabrera APRN.CNP - 02/16/2024 4:24 PM EST Associated Problem(s): Anemia -02/09/2024: H&H 12.840 * Assessment & Plan Note - Tiffany Cabrera APRN.CNP - 02/16/2024 4:23 PM EST Associated Problem(s): Coronary artery disease, occlusive -Last heart cath 2021- unable to stent -05/27/2021 LMT nl, LAD mild luminal irregularities, prox 90% L1, moderate LCx, RCA mild to moderatedisease. Unsuccessful PCI Dg1 due to inability to cross wire. Hematoma after cath in RLE. * Assessment & Plan Note - Tiffany Cabrera APRN.CNP - 02/16/2024 4:03 PM EST Associated Problem(s): Former smoker -Former smoker -Quit 30 years ago * Assessment & Plan Note - Tiffany Cabrera APRN.CNP - 02/16/2024 3:24 PM EST Associated Problem(s): Acalculous cholecystitis -S/p cholecystectomy drain placement 12/13, culture with VRE -Surgical intervention scheduled for 02/24/2024 * Assessment & Plan Note - Tiffany Cabrera APRN.CNP - 02/16/2024 3:21 PM EST Associated Problem(s): Lung abscess (HCC) -Lung abscess diagnosed 10/2023 -Note reviewed from Leidy CHU from [facility] 12/22/2023: -10/24 CT chest w LLL cavitary lesion 7 x 3.5 x 7.9 cm suggestive of abscess and emphysematous changes. -Receiving Zosyn prior to admission from 11/21 scheduled to continue through 12/31 -Followed by Dr. Galloway -Repeat CT chest done 12/16 shows 4 cm fluid-filled collection with small cavitary component left lower lobe abutting fissure, improved from 9 cm on 10/2402/09/2024 4:27 PM - Radiology, Oru In Impression IMPRESSION: 1. No acute intrathoracic abnormality is seen. 2. Cavitary lesion of the left lung appears stable compared to prior radiograph. A follow-up chest CT in one to 2 months would be recommended to document further stability or reduction in size. * Assessment & Plan Note - Tiffany Cabrera APRN.CNP - 02/16/2024 3:16 PM EST Associated Problem(s): History of EKG -10/2023 SINUS RHYTHM WITH PREMATURE ATRIAL COMPLEXES WITH ABERRANT CONDUCTION LEFT AXIS DEVIATION ABNORMAL ECG NO PREVIOUS ECGS AVAILABLE Confirmed by KAR ONEILL MD ([id number]) on 10/29/2023 9:36:26 AM * Assessment & Plan Note - Tiffany Cabrera APRN.CNP - 02/16/2024 3:16 PM EST Associated Problem(s): History of echocardiogram -Consult to anesthesia- please review echo with anesthesia -12/2023 Echo Impression CONCLUSIONS: - Technically difficult exam due to body habitus. 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 Left ventricular systolic function is normal. EF = 55 5% (visual est.) Definity contrast used for endocardial border detection. Grade II left ventricular diastolic dysfunction. - The right ventricle is normal in size. Right ventricular systolic function is normal. - The left atrial cavity is moderately dilated. - Estimated right ventricular systolic pressure is 68 mmHg consistent with moderately severe pulmonary hypertension. Estimated right atrial pressure is 8 mmHg based on IVC assessment. - The patient has not had a prior CC echocardiographic exam for comparison. * Assessment & Plan Note - Tiffany Cabrera APRN.CNP - 02/16/2024 3:09 PM EST Associated Problem(s): GERD (gastroesophageal reflux disease) -Protonix 40 mg daily- continue, take morning of surgery -Carafate 1 gram BID- continue -Controlled with medication * Assessment & Plan Note - Tiffany Cabrera APRN.CNP - 02/16/2024 3:08 PM EST Associated Problem(s): Hypotension -Midodrine 5 mg TID- continue, take morning of surgery * Assessment & Plan Note - Tiffany Cabrera APRN.CNP - 02/16/2024 2:57 PM EST Associated Problem(s): HLD (hyperlipidemia) -Zetia 10 mg daily- continue -Crestor 5 mg daily- continue -Followed by Dr. Rascon * Assessment & Plan Note - Tiffany Cabrera APRN.CNP - 02/16/2024 2:57 PM EST Associated Problem(s): Chronic heart failure with preserved ejection fraction (HCC) -Jardiance 12.5 mg daily- continue, hold 3 days before surgery * Assessment & Plan Note - Tiffany Cabrera APRN.CNP - 02/16/2024 2:54 PM EST Associated Problem(s): COPD (chronic obstructive pulmonary disease) (HCC) -Pulmicort 0.2mg/2Ml nebulizer daily- continue, please use morning of surgery -Xopenex 0.63mg/ml nebulizer- continue, use morning of surgery -Stiolto Respimat Inhalation 2 puffs daily- continue -Denies symptoms of resp infection at this time -Does not use rescue inhaler -Pulmonary optimization- scanned into [facility] 02/17/2024- Dr. Donald. -Consult to anesthesia- due to high risk noted by Dr. Donald * Assessment & Plan Note - Tiffany Cabrera APRN.CNP - 02/16/2024 2:52 PM EST Associated Problem(s): Paroxysmal atrial fibrillation (HCC) -03/23/2023- Successful CRYO PVAI ablation with exit block all pulmonary veins -Eliquis 5 mg BID- please follow surgeon's instructions -Tikosyn 250 mcg BID- continue, take morning of surgery -Metoprolol 25 mg daily- continue, take morning of surgery * Assessment & Plan Note - Tiffany Cabrera APRN.CNP - 02/16/2024 2:48 PM EST Associated Problem(s): Pre-op exam -Identify any potential anesthesia problems or contraindications to the planned procedure. [facility] Diagnosis Pre-op exam- Primary Preoperative examination, unspecified Paroxysmal atrial fibrillation (HCC) Atrial fibrillation Chronic obstructive pulmonary disease, unspecified COPD type (HCC) Chronic heart failure with preserved ejection fraction (HCC) Hyperlipidemia, unspecified hyperlipidemia type Hypotension, unspecified hypotension type Gastroesophageal reflux disease, unspecified whether esophagitis present History of echocardiogram Other specified personal history presenting hazards to health History of EKG Other specified personal history presenting hazards to health Abscess of left lung without pneumonia, unspecified part of lung (HCC) Acalculous cholecystitis Cholecystitis, unspecified Former smoker Personal history of tobacco use, presenting hazards to health Coronary artery disease, occlusive Acute myocardial infarction, unspecified site, episode of care unspecified Anemia, unspecified type Sleep apnea, unspecified type Cavities, tooth Postoperative follow-up- Primary Follow-up examination, following unspecified surgery [facility] Author Mariele Yeager [facility] March 29, 2023 2:31pm Note Date/Time March 29, 2023 1 :14pm [facility] Medical Records Department [address] [place] [id number] H&P Exam - Hospitalist 03/29/23 1308 MR#: [id number] Acct: [id number] Name: HIRAM DORAN Rep #:[id number] 28 : 1940 82 From: Marilee Yeager MD PCP: Dr. Malissa Rascon MD Status:[facility] - General General Date of Admission: 03/29/23 Date of Service: 03/29/23 Chief Complaint: Debility, weakness, L sided abdominal discomfort, ongoing diarrhea. HPI Narrative The patient is an 82 y/o M w/ PMHx: HFrEF, JORGE, Anxiety and Depression, HTN, HLD, CAD, BPH, COPD/Pulmonary fibrosis, Hx SVT, Sinus node dysfunction worse with AV dennis blocking agents, PAF complicated by history of hypertension associate with regimen eventually transition to Tikosyn however this was associated with significant diarrhea therefore he was referred to electrophysiology at [facility] for EP study/ablation with cryoablation 03/23/2023 with postoperative course unfortunately complicated by recurrent hypotension andnoted retroperitoneal bleed with associated acute blood loss anemia eventually stabilizing as well as concerns for pneumonia placed on initially IV BSA transition eventually to oral doxycycline with PRBC transfusion as well as diuresis with eventual restart of Tikosyn secondary to recurrent bouts of atrialfibrillation with RVR with unfortunately again recurrent diarrhea similar to hisprevious with ongoing BP with commonly systolics in the 90s with PT/OT assessments with decision for skilled placement needs with plan transition to TCU however per family report there was no bed available until Thursday therefore for unclear reasons patient was discharged to home however he he cannot functionsafely at home and since has had recurrent ongoing persistent diarrhea he notes lower abdominal discomfort as well as left-sided discomfort with occasional nausea and dry heaving when he exerts himself with no recent fevers or chills but poor appetite prompting eventual ED evaluation. Per family report he was not supposed to start any antiplatelet or anticoagulant therapy until his hemoglobin was reportedly at 10 but there was no clear follow-up indicated. He does report that he is continue doxycycline for what was reported as a hospital-acquired pneumonia. From review of records 06/27/2021 cardiology visit patient also had an unfortunate large hematoma following a heart cath of note. Patient does report left-sided abdominal discomfort, worse with palpation with decreasedoral intake per family report. From records 05/27/2021 there was unsuccessful PTCA of D1 as they could not cross the lesion with a wire with decision for medical management. From review of clinic sink records w/ last noted 03/27/2023 cardiology EP note reporting PAF status post ablative therapies with reported occasional breakthrough episodes of nonsustained atrial tachycardia with recommended continue monitoring, report of possibly planned restart Eliquis March 30 with plan repeat labs 3 to 4 days afterwards to continue assessing hemoglobin, retroperitoneal bleed, and that bleeding had stabilized with hemoglobin at that time 9.1, treatment of acute on chronic HFrEF with diuresis performed, ongoing ileus with GI also consulted during that presentation, reportedly pneumonia with patient improvement with mild cough otherwise no acute findings. Patient per record had required pressor support and fluids as well as transfusions maintained in the CCU and evaluated by vascular for the left retroperitoneal hemorrhage. From the notes from their facility the patient was adamant that he did not want to go to skilled facilities. They also reported that if onset of diarrhea they may need to againdiscontinue Tikosyn and consider a different antiarrhythmic agent. Workup in theED included T97.1, heart rate initially 87 however patient intermittently in atrial fibrillation with RVR with rate going up to 148 however quickly comes outof it, BP 95/56, respiratory rate 16, 92% on room air, CBC with WBC 12.9, hemoglobin 9.8, MCV 97.3, platelet 284 with increased immature granulocytes and left shift, coags with PT 16.1 otherwise not marked appearing, CMP with glucose 116, magnesium 2.0, T. bili 2.20, T. bili 0.58, AST/ALT 8/12, troponin 346, BNP 55.4, lipase 11, urinalysis with specific gravity 1.015, protein 15, glucose 1000, ketone 15, occult blood 10, leukocyte esterase 25 otherwise no marked evidence of UTI, rapid SARS COVID/flu/RSV PCR negative, CT abdomen and pelvis with IV contrast with mild inflammatory changes along the left colon suggestive of diffuse diverticulitis without any abscess or perforation with a large left retroperitoneal hemorrhage stable in appearance, CTPA with no evidence of pulmonary embolism, notable pulmonary emphysema, bibasilar interstitial thickening possibly acute or chronic inflammatory change, EKG initially sinus rhythm with no acute evidence of ischemia however while in the ED patient with intermittent atrial fibrillation with RVR with quick conversion to sinus rhythm. Family was encouraged to return to [facility] however they were very dissatisfied with the care at their facility and declined any consideration of transfer. They very strongly requested admission for transition to TCU when bed open. [facility] Medical History (Updated 03/29/23 @ 14:[address] Marilee Yeager MD) 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 BPH (benign prostatic hyperplasia) Chronic diarrhea COPD (chronic obstructive pulmonary disease) GERD (gastroesophageal reflux disease) HFrEF (heart failure with reduced ejection fraction) Hyperlipidemia Obstructive sleep apnea Paroxysmal atrial fibrillation Pulmonary fibrosis Retroperitoneal hematoma Sinus node dysfunction SVT (supraventricular tachycardia) Home Medications lorazepam 0.5 mg tablet 0.5 mg PO QHS anxiety 07/04/17 [History Last Taken 01/03/18 20:00] rosuvastatin 5 mg tablet (Crestor) 5 mg PO QDAY cholesterol 07/04/17 [History Last Taken 01/03/18] sertraline 50 mg tablet 50 mg PO DAILY 12/01/18 [History Last Taken Unknown] tiotropium bromide 2.5 mcg/actuation mist for inhalation (Spiriva Respimat) 2 inh inhalation QAM 04/11/20 [History Last Taken Unknown] budesonide-formoterol HFA 80 mcg-4.5 mcg/actuation aerosol inhaler (Symbicort) 2puff inhalation BID 01/10/21 [History Last Taken Unknown] acetaminophen 500 mg tablet 500 mg PO Q4H PRN Pain 05/22/21 [History Last Taken Unknown] cholecalciferol (vitamin D3) 25 mcg (1,000 unit) tablet 25 mcg PO DAILY 05/22/21[History Last Taken Unknown] cimetidine 200 mg tablet (Tagamet HB) 200 mg PO ONCE PRN reflux 05/22/21 [History Last Taken Unknown] guaifenesin 600 mg tablet, extended release 12 hr (Mucinex) 600 mg PO BID 05/22/21 [History Last Taken Unknown] mecobalamin (vitamin B12) 1,000 mcg chewable tablet 1,000 mcg PO DAILY 05/22/21 [History Last Taken Unknown] mometasone 200 mcg/actuation HFA aerosol inhaler (Asmanex HFA) 2 puff inhalationBID 05/22/21 [History Last Taken Unknown] tamsulosin 0.4 mg capsule (Flomax) 0.8 mg PO QHS BPH 05/22/21 [History Last Taken Unknown] tiotropium 2.5 mcg-olodaterol 2.5 mcg/actuation mist for inhalation (Stiolto Respimat) 2 puff inhalation DAILY 05/22/21 [History Last Taken Unknown] apixaban 5 mg tablet 5 mg PO BID 06/27/21 [History Last Taken Unknown] isosorbide mononitrate 30 mg tablet,extended release 24 hr 30 mg PO DAILY 06/27/21 [History Last Taken Unknown] metoprolol succinate 25 mg tablet,extended release 24 hr 25 mg PO DAILY 06/27/21[History Last Taken Unknown] nitroglycerin 0.4 mg sublingual tablet 0.4 mg sublingual Q5M PRN CP 06/27/21 [History Last Taken Unknown] bumetanide 1 mg tablet mg 03/29/23 [History Last Taken Unknown] dofetilide 250 mcg capsule mcg 03/29/23 [History Last Taken Unknown] doxycycline hyclate 100 mg capsule mg 03/29/23 [History Last Taken Unknown] duloxetine 60 mg capsule,delayed release mg PO 03/29/23 [History Last Taken Unknown] empagliflozin 25 mg tablet (Jardiance) 12.5 mg PO DAILY 03/29/23 [History Last Taken Unknown] finasteride 5 mg tablet mg 03/29/23 [History Last Taken Unknown] levalbuterol HCl 0.63 mg/3 mL solution for nebulization mg inhalation 03/29/23 [History Last Taken Unknown] midodrine 5 mg tablet mg 03/29/23 [History Last Taken Unknown] pantoprazole 40 mg tablet,delayed release mg PO 03/29/23 [History Last Taken Unknown] potassium chloride 20 mEq tablet,extended release meq PO 03/29/23 [History Last Taken Unknown] Allergy/AdvReac Type Severity Reaction Status Date / Time No Known Allergies Allergy Verified 01/31/22 15:05 Family History Mother , Age 64 from Emphysema COPD (chronic obstructive pulmonary disease) Blood disorder Father No problems noted. Surgical History History of ankle surgery History of appendectomy History of back surgery History of inguinal hernia repair History of left heart catheterization (05/27/21) History of tonsillectomy History of umbilical hernia repair S/P ablation of atrial fibrillation Social History (Updated 03/29/23 @ 14:[address] Marilee Yeager MD) household members: spouse Smoking Status: Former smoker how long ago did patient quit smokin years ago alcohol intake: current alcohol intake frequency: holidays/special occasions only substance use type: does not use caffeine: Yes Type: coffee Number of servings: 2 ROS ROS Narrative Admission Review of Systems: CONSTITUTIONAL: No weight loss, fever, chills, + weakness or fatigue. HEENT: Eyes: No visual loss, blurred vision, double vision or yellow sclerae. Ears, Nose, Throat: No hearing loss, sneezing, congestion, runny nose or sore throat. SKIN: No rash or itching, lesions, wounds. CARDIOVASCULAR:+ Edema, improved, intermittent racing heart/palpitations not marked symptomatic. No chest pain, chest pressure or chest discomfort, orthopnea, syncopal events. RESPIRATORY: + Productive cough. No shortness of breath, wheezing, hemoptysis. GASTROINTESTINAL: + anorexia, occasional nausea with dry heaving, L sided abdominal discomfort, diarrhea, no overt vomiting. No melena, BRBPR. GENITOURINARY: No dysuria, frequency, urgency or retention. NEUROLOGICAL: No headache, dizziness, syncope, paralysis, ataxia, numbness or tingling in the extremities, focal weakness, change in bowel or bladder control,seizure. MUSCULOSKELETAL: + muscle, back pain, joint pain or stiffness. HEMATOLOGIC: + anemia, easy bleeding/bruising. LYMPHATICS: No enlarged nodes. No history of splenectomy. PSYCHIATRIC: + History of anxiety and depression. ENDOCRINOLOGIC: No reports of sweating, cold or heat intolerance. No polyuria orpolydipsia. ALLERGIES: No history of asthma, hives, eczema or rhinitis. Vital Signs Vital Signs Vital Signs: 03/29/23 09:42 03/29/23 10:29 Temperature 97.1 F L Temperature Source Oral Pulse Rate 87 148 H Respiratory Rate 16 16 Blood Pressure 95/56 L 93/67 Blood Pressure Mean 69 75 Pulse Ox 92 97 Oxygen Delivery Method Room Air Weight Weight: 182 lb 5.156 oz Body Mass Index (BMI) 27.7 Physical Exam Narrative Physical Examination: General: Awake, alert, oriented to self, place and recent events, patient is fatigued and was initially sleeping prior to evaluation, remains cooperative, seated upright in the ED bed, does report discomfort to the abdomen primary withpalpation of the left side. Skin: Normal color, normal turgor, no icterus, no cyanosis except for staged ecchymoses likely secondary to recent lab draws. HEENT: AT/NC, EOMI, PERRLA, moderately dry MM, no carotid bruits or JVD noted. Lungs: Mildly diminished, greater bases, appropriate effort, no evidence of any distress, no rales, ronchi or wheezing. Heart: Currently regular rate and rhythm; no gallop, rub audible. Abdomen: Soft, discomfort to bilateral lower quadrants however left greater thanright, mild voluntary guarding, no overt marked distention, hyperactive BS, no appreciated HSM. Extremities: No cyanosis, clubbing, or marked edema which family notes is improved significantly since recent admission. Neurological: Patient awake, alert, oriented as noted, cognitive function intact; pupils equally reactive to light and accommodation, cranial nerves grossly normal, moving all 4 extremities, no focal deficits, strength moderatelyto severely globally decreased secondary to acute complaints and recent prolonged admission with significant hospital events Psychiatric: Affect appears flat, fatigued, no acute evidence of depressive or anxiety feelings but does have underlying history. Results Lab / Micro Data 03/29/23 09:45 03/29/23 09:45 Labs: Laboratory Results - last 24 hr 03/29/23 09:45: WBC 12.9 H, RBC 3.01 L, Hgb 9.8 L, Hct 29.3 L, MCV 97.3 H, MCH 32.6 H, MCHC 33.4, RDW Std Deviation 52.9 H, RDW Coeff of David 15.0 H, Plt Count 284, MPV 9.3, Immature Gran % (Auto) 1.400 H, Neut % (Auto) 78.0 H, Lymph % (Auto) 7.1 L, Morrill % (Auto) 12.3 H, Eos % (Auto) 0.7, Baso % (Auto) 0.5, Absolute Neuts (auto) 10.1 H, Absolute Lymphs (auto) 0.92, Nucleated RBC % 0, Diff Path Review July, PT 16.1 H, INR 1.3, APTT 33.7, Sodium 138, Potassium 3.6, Chloride 99, Carbon Dioxide 32.0, Anion Gap 7, BUN 16, Creatinine 0.98, Estim Creat Clear Calc 58.83, Est GFR (MDRD) Af Amer 93, Est GFR (MDRD) Non-Af 77, BUN/Creatinine Ratio 16.2, Glucose 116 H, Lactic Acid 1.1, Calcium 8.6, Magnesium 2.0, Total Bilirubin 2.20 H, Direct Bilirubin 0.58 H, AST 8 L, ALT 12 L, Alkaline Phosphatase 69, Troponin I High Sens 346 H*, B-Natriuretic Peptide 55.4, Total Protein 6.4, Albumin 2.9 L, Globulin 3.5, Lipase 11 L 03/29/23 11:22: Urine Color Yellow, Urine Clarity Clear, Urine pH 5.0, Ur Specific [place] 1.015, Urine Protein 15 H, Urine Glucose (UA) 1000 H, Urine Ketones 15 H, Urine Occult Blood 10 H, Urine Nitrite Negative, Urine Bilirubin Negative, Urine Urobilinogen Normal, Ur Leukocyte Esterase 25 H, Urine RBC 0 SEEN, Urine WBC 0 SEEN, Ur Squamous Epith Cells 0 SEEN, Urine Bacteria 0 SEEN, Urine Mucus 0 SEEN Micro: Microbiology 03/29/23 10:42 Mucosa - Nose SARS-CoV-2, Influenza & RSV (PCR) - Final Imagaing Radiology Impression Abdomen/Pelvis CT 03/29/23 11:35 IMPRESSION: 1. Mild inflammatory changes along the left colon suggestive of diffuse diverticulitis without abscess or perforation. 2. Left retroperitoneal hemorrhage as described. Electronically Signed: Valente Lara MD at 12:19 EST , Chest CTA 03/29/23 11:35 IMPRESSION: 1. No evidence of acute pulmonary embolism. 2. Pulmonary emphysema. 3. Bibasilar interstitial thickening which may represent acute or chronic inflammatory change Electronically Signed: Valente Lara MD at 12:22 EST , Assessment & Plan Assessment/Plan (1) Paroxysmal atrial fibrillation: PLAN: Plan The patient is an 82 y/o M w/ PMHx: HFrEF, JORGE, Anxiety and Depression, HTN, HLD, CAD, BPH, COPD/Pulmonary fibrosis, Hx SVT, Sinus node dysfunction worse with AV dennis blocking agents, PAF complicated by history of hypertension associate with regimen eventually transition to Tikosyn however this was associated with significant diarrhea therefore he was referred to electrophysiology at [facility] for EP study/ablation with cryoablation 03/23/2023 with postoperative course unfortunately complicated by recurrent hypotension and noted retroperitoneal bleed with associated acute blood loss anemia eventually stabilizing as well as concerns for pneumonia placed on initially IV BSA transition eventually to oral doxycycline with PRBC transfusion as well as diuresis with eventual restart of Tikosyn secondary to recurrent bouts of atrialfibrillation with RVR with unfortunately again recurrent diarrhea similar to hisprevious with ongoing BP with commonly systolics in the 90s with PT/OT assessments with decision for skilled placement needs with plan transition to TCU however per family report there was no bed available until Thursday therefore he was discharged to home and now presents to the [facility] ED on 03/29/23 with debility and request for placement as well as evaluation for abdominal discomfort. #1. Paroxsymal atrial fibrillation w/ RVR: Patient with recurrent atrial fibrillation with RVR, known to Cardiology, recent admission with EP and ablation but still intermittent episodes, restarted on tikosyn but onset again of diarrhea potentially related, will need to consider Cardiology consultation, LVEF 45%, moderate LAE reported in [facility] records, reported also to have failedmultiple antiarrhythmic agents including sotalol (bradycardia, hypotension), ranolazine (hypotension), tikosyn (inadequate suppression) with restart on also BB despite low BB with concern started midodrine, will maintain on telemetry, obtain cardiac enzyme serial set to be cautious especially given elevated however patient did have recent cryo ablation therapy thus suspect this is etiology, magnesium level normal per ED, recent echo reported at [facility] thus we willdefer repeat. Holding anticoagulant therapy as hemoglobin not greater than 10 with recent left retroperitoneal bleed. If necessary may re-involve cardiology but intermittent episodes of PAF with RVR were noted per cardiology even at [facility] discharge. Will prioritize metoprolol and hold diuresis if necessary but avoid hydration and encourage oral appropriate intake. #2. ? Acute Diverticulitis versus inflammatory change secondary to literal location of the peritoneal hematoma against the bowel: To be cautious will only judiciously hydrate given recent reported HFrEF exacerbation, will monitor I&Os,allow clears and ADAT, treat with IV zosyn regimen but obtain procalcitonin as still uncertain of acute infectious process, maintain on PPI, anti-emetics, painregimen PRN. Will obtain cdiff and enteric to be cautious but appears was also done in February and negative at that time but from records diarrhea only now again more persistent after Tikosyn restart. #3. Recent questionable hospital-acquired pneumonia: Given CTPA with no marked finding suspect possibly atelectatic cause for findings and decision to treat asa hospital-acquired but from records based on chest x-ray imaging 03/24/2023 chestx- ray with report of worsening bilateral bibasilar infiltrate, small bilateral pleural effusions concerning for pneumonia but was likely overload with his HF exacerbation from records review, patient had been on BSA but was transition to doxycycline, at this point there is also no mention of any sputum cultures or urine antigens. Will de-escalate off of doxycycline given concern for possibly diverticulitis but again this could be related to the peritoneal hematoma and potentially irritation but unsure. To be cautious although CT imaging here at [facility] and that at [facility] of at least bases did not reveal PNA, given sputum production will obtain sputum Cx if produces, urine antigens. #4. Recent Acute Retroperitoneal Bleed following intervention w/ ABLA associated: Recent noted [facility] CBC with WBC 9.6, hemoglobin 9.1, MCV 94, platelet 241 with mild left shift noted, 03/24/2023 CT angio for GI bleed with study positive for left retroperitoneal hemorrhage extending into the left pelvic extraperitoneal space with no contrast extravasation to indicate any active hemorrhage at that time with diverticulosis without any diverticulitis with small bilateral pleural effusions with minimal adjacent atelectasis reported with size 7.5 x 5.2 cm at that time. Vascular surgery evaluation with recommended continued close monitoring. Will continue to hold anticoagulation and antiplt. Continue to trend CBC. Treated ? #2. #5. Elevated cardiac enzyme with as noted intermittent episodes of atrial fibrillation with RVR however patient did have recent cryoablation therapy suspectedas etiology: EKG in ED with initially sinus rhythm with no acute evidence of ischemia, CTA chest with no evidence of pulmonary emboli or acute concerns and no evidence of any pneumonia, initial trop 346 with no comparison obtained at [facility] as likely it would have been elevated with recent cardiac intervention. Will place on a monitored bed to assure no acute myocardial infarction with serial cardiac enzymes and EKGs. Given retroperitoneal bleed recently we will hold on aspirin therapy or any consideration of resumption of Eliquis but will continue to trend cardiac enzymes. #6. HFrEF with Recent Exacerbation: Noted during [facility] admission, LVEF 45%, moderate LAE reported in [facility] records, CXR with overload, diuresed with low BPs as noted with concurrent ABLA/PRBC administration component, will diurese asBP allows but will avoid IVFs at this point unless needed and prioritize BB given ongoing bouts PAF with RVR as noted with administration of Bumex as able but in the ED significantly low normal BP would preclude this, holding antiplt and anticoagulant given ABLA/retroperitoneal bleed recently and add back once appropriate, continue statin. Continue on midodrine regimen. #7. Hyperbilirubinemia with normal LFTs: Given recent notable acute retroperitoneal bleed with acute blood loss anemia which is now stabilized suspect this is etiology, admission CMP with T. bili 2.20, T. bili 0.58, AST/LT 8/12, continue to trend CMP. #8. Chronic COPD/pulmonary fibrosis: Will maintain on oxygen with wean as tolerated to room air, continue ATC budesonide, PRN Xopenex which patient's family will bring from home to use given significant PAF with RVR history and not available at [facility] pharmacy, HOB, IS parameters. #9. CAD: Most recently noted 05/27/2021 there was unsuccessful PTCA of D1 as they could not cross the lesion with a wire with decision for medical management, holding antiplt and anticoagulation given recent ABLA with retroperitoneal bleed as noted, continue metoprolol as able pending BP trending,not on ACEI/ARB, continue statin. #10. Hyperlipidemia we will continue patient on statin therapy. #11. Anxiety and depression: We will continue patient low-dose nightly lorazepam as well as home sertraline. Needs clarification as patient is also listed potentially being on home regimen of duloxetine as well and use of these 2 agents together would not be appropriate. #12. BPH: We will continue patient Flomax home regimen. #13. JORGE: CPAP nightly. #14. DVT Prophylaxis: SCDs. #15. CODE status: Patient TAI is his daughter who is present and living will is currently in place. Discussed CODE status at length including difference between FULL code, DNR-CCA and DNR-CC status. Following discussions about the differences in these status, requested Full Code status. Discussed his prognosisshould an cardiopulmonary event occur with both him and his family. Advanced Care Planning Face to Face Time: 16 minutes. Charges/Coding Visit Charges Inpatient E&M: 32316 Init Hosp L3 Procedures Hospitalists Procedures: 84298 Advncd Care Plan 30 Min 03/29/23 1431 <Electronically signed by Marilee Yeager MD> Cosigner Signature (if applicable): CC: Dr. Marilee Yeager MD; Dr. Malissa Rascon MD~ Signed [facility] Work Phone: Hospital course Narrative No data available for this section [facility] Hospital Discharge instructions No data available for this section [facility] Discharge instructions Additional Instructions Please follow-up outpatient. Return here for uncontrolled heart rate, shortness of breath.[facility] Work Phone: Hospital Discharge instructions Additional Instructions Discharge home with 04/14/2023, [facility] PT/OT/SN. [facility] Work Phone: Hospital Discharge instructions Additional Instructions You were in a rhythm called atrial flutter with rapid ventricular response. We did synchronized cardioversion to put your heart back into a normal sinus rhythm. Please call your economic development director tomorrow for follow-up and continue all your medications as prescribed.[facility] Work Phone: Note* MD GLORIA, GONZALEZ DEAN: SIGN, VERIFY Event Display: EKG [ED AO] - CV Authored Date: [facility] Nurse Progress note* ALFONZO Fay: PERFORM Event Display: Progress Note-Nurse Authored Date: [facility] Progress note No data available for this section [facility] Reason for referral (narrative)No reason for referral information availableWMer[facility] Work Phone: Summary Purpose Family History No Family History Records Found Relationship Condition Age at Onset Recorded Date/T katlyn mother Chronic obstructive pulmonary disease Unk nown Blood disorder Unknown Advance Directives No Advanced Directives Records Found Advance Directive Response Recorded Date/ Time Advance Directives Yes May 27, 2 022 10:27am Living Will Yes May 27, 2021 10:27am Power of Bench Shear Operator Yes May 27 10:27am Advance Directive Response Recorded Date/ Time Advance Directives Yes May 27, 022 9:27am Living Will Yes May 27, 2021 9:27am Power of Bench Shear Operator Yes May 27 9:27am Advance Directive Response Recorded Date/ Time Name of Medical Power of Bench Shear Operator January 31, 2022 4:24pm Advance Directives Yes May 27, 022 9:27am Living Will Yes January 31 4:24pm Power of Bench Shear Operator Yes January 31, 2022 4:24pm Advance Directive Response Recorded Date/ Time Advance Directives Yes May 27, 10:27am Living Will Yes January 31 5:24pm Power of Bench Shear Operator Yes January 31, 2022 5:24pm Advance Directive Response Recorded Date/ Time Name of Medical Power of Bench Shear Operator lala March 29, 2023 9:52am Advance Directives Yes May 27, 022 9:27am Living Will Yes March 29 9:52am Power of Bench Shear Operator Yes March 29, 2023 9:52am Advance Directive Response Recorded Date/ Time Name of Medical Power of Bench Shear Operator Lala King r-daughter March 29, 2023 3:36pm Advance Directives Yes May 27 9:27am Living Will Yes March 29 3:36pm Power of Bench Shear Operator Yes March 29, 2023 3:36pm Advance Directive Response Recorded Date/ Time Name of Medical Power of Bench Shear Operator Lala King r-daughter March 29, 2023 3:36pm Name of Medical Power of Bench Shear Operator Lala King r, daughter April 02, 2023 2:34pm Advance Directives Yes May 27, 022 9:27am Living Will Yes April 02 2:34pm Power of Bench Shear Operator Yes April 02, 2023 2:34pm Advance Directive Response Recorded Date/ Time Name of Medical Power of Bench Shear Operator Lala King r-daughter March 29, 2023 4:36pm Name of Medical Power of Bench Shear Operator Lala King r, daughter April 02, 2023 3:34pm Name of Medical Power of Bench Shear Operator MARLEN DORAN June 06, 2023 5:35pm Advance Directives Yes May 27, 022 10:27am Living Will Yes June 06, 2023 5:35pm Power of Bench Shear Operator Yes June 05 5:35pm Date Activated Date Inactivated Comments 12/13/2023 4:07 AM 12/23/2023 9:20 PM Question Answer Comments Full Code Order Discussed With: Patient Date Activated Date Inactivated Comments 10/28/2023 3:11 AM 10/30/2023 7:14 PM Question Answer Comments Full Code Order Discussed With: Patient Documents on File Type Date Recorded Patient Spout Liner Helper Expl anation Advance Directive(s) 02/19/2024 2:16 PM Advance Directive(s) 02/19/2024 2:14 PM Date Activated Date Inactivated Comments 02/24/2024 11:50 AM 03/01/2024 9:36 PM Date Activated Date Inactivated Comments 12/13/2023 4:07 AM 12/23/2023 9:20 PM Date Activated Date Inactivated Comments 10/28/2023 3:11 AM 10/30/2023 7:14 PM Question Answer Comments Full Code Order Discussed With: Patient Advance Directive Response Recorded Date/ Time Living Will Yes March 02, 3:52pm Power of Bench Shear Operator Yes March 02, 2024 3:52pm Name of Medical Power of Bench Shear Operator Tammy Izaguirre March 02, 2024 3:52pm Advance Directives Yes May 27 10:27am Advance Directive Response Recorded Date/ Time Living Will Yes March 02 3:52pm Do you have a Healthcare Power of Bench Shear Operator? Yes March 02, 2024 3:52pm Name of Medical Power of Bench Shear Operator Tammy Izaguirre March 02, 2024 3:52pm Advance Directives Yes May 27 10:27am Advance Directive Response Recorded Date/ Time Advance Directives Yes May 27 10:27am Advance Directive Response Recorded Date/ Time Do you have a Healthcare Power of Bench Shear Operator? Yes July 22, 2024 11:55am Advance Directives Yes May 27 022 10:27am Chief Complaint and Reason for Visit Chief Complaint SPUTUM CULTURE Chief Complaint SPUTUM CULTURE SOB Chief Complaint PULM FIBROSIS Chief Complaint PAF RVR DIVERTICULIT IS, RECENT ABLA RETROPER BLEED Reason for Visit ABLA (acute blood lo ss anemia) 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 COPD (chronic obstructive pulmonary disease) Paroxysmal atrial fibrillation Chief Complaint PAF RVR DIVERTICULIT IS, RECENT ABLA RETROPER BLEED PREOP PAF RVR DIVERTICULITIS, RECENT ABLA RETROPER BLEED PAF RVR DIVERTICULITIS, RECENT ABLA RETROPER BLEED Reason for Visit ABLA (acute blood lo ss anemia) 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 Neck pain COPD (chronic obstructive pulmonary disease) Paroxysmal atrial fibrillation Chief Complaint PAF RVR DIVERTICULIT IS, RECENT ABLA RETROPER BLEED PREOP PAF RVR DIVERTICULITIS, RECENT ABLA RETROPER BLEED PAF RVR DIVERTICULITIS, RECENT ABLA RETROPER BLEED PAF RVR DIVERTICULITIS, RECENT ABLA RETROPER BLEED PAS,RVR,DIVERTICULITIS,RECENT ABLA,RETRO PER BLEED Reason for Visit Acute diverticulitis 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 Neck pain COPD (chronic obstructive pulmonary disease) Paroxysmal atrial fibrillation ABLA (acute blood loss anemia) Acute diverticulitis Anxiety Atrial fibrillation with RVR BPH (benign prostatic hyperplasia) Coronary artery disease Debility Depression GERD (gastroesophageal reflux disease) Retroperitoneal bleed COPD (chronic obstructive pulmonary disease) Hyperlipidemia Chief Complaint PAF RVR DIVERTICULIT IS, RECENT ABLA RETROPER BLEED PREOP PAF RVR DIVERTICULITIS, RECENT ABLA RETROPER BLEED PAF RVR DIVERTICULITIS, RECENT ABLA RETROPER BLEED PAF RVR DIVERTICULITIS, RECENT ABLA RETROPER BLEED PAS,RVR,DIVERTICULITIS,RECENT ABLA,RETRO PER BLEED PALPITATION Reason for Visit Atherosclerotic hear t disease of [place] coronary artery without angina pectoris Neck pain COPD (chronic obstructive pulmonary disease) Paroxysmal atrial fibrillation ABLA (acute blood loss anemia) Acute diverticulitis Anxiety Atrial fibrillation with RVR BPH (benign prostatic hyperplasia) Coronary artery disease Debility Depression GERD (gastroesophageal reflux disease) COPD (chronic obstructive pulmonary disease) Hyperlipidemia Acute diverticulitis Retroperitoneal bleed Chief Complaint Admit Date ACUTE ACALCULOUS CHOLECYSTITIS, CHOLECYS TECTO March 01, 2024 7:25pm HEMOPTYSIS March 02, 2024 11:25am CT ABDOMEN/PEVIS WITH CONTRAST March 07, 2024 10:02am ACUTE ACALCULOUS CHOLECYSTITIS, CHOLECYS TECTO March 12, 2024 10:52am PULM NODULE May 04, 2024 12:44pm Reason for Visit Admit Date Hypothyroidism March 01, 2024 7:25pm Acalculous cholecystitis March 01, 2024 7:25pm Debility March 01, 2024 7:25pm Hypokalemia March 01, 2024 7:25pm (HFpEF) heart failure with preserved eje ction fraction March 01, 2024 7:25pm Anxiety March 01, 2024 7:25pm BPH (benign prostatic hyperplasia) Decem 2023 7:25pm COPD (chronic obstructive pulmonary dise ase) March 01, 2024 7:25pm Coronary artery disease March 01, 024 7:25pm Depression March 01, 2024 7:25pm GERD (gastroesophageal reflux disease) D ecember 2023 7:25pm Grade II diastolic dysfunction March 01, 2024 7:25pm Hyperlipidemia March 01, 2024 7:25pm Macular degeneration March 01, 2024 7:25pm Muscle spasm March 01, 2024 7:25pm Orthostatic hypotension March 01, 024 7:25pm Paroxysmal atrial fibrillation March 01, 2024 7:25pm Status post cholecystectomy February 7:25pm Vitamin D deficiency March 01, 2024 7:25pm Atrial fibrillation March 01, 2024 7:25pm Chief Complaint Admit Date PULM NODULE May 04, 2024 12:44pm GROWTH HEOTERIA July 19, 2024 2:32pm Chief Complaint Admit Date GROWTH HEOTERIA July 19, 2024 2:32pm Cysto,Ureteroscopy,Retro,Laser,Stent August 05, 2024 6:01am CAT BITE ON L ARM October 08, 2024 1:15 pm Additional Source Comments (unrecognized sect ion and content) No Status Records FoundNo Status Records FoundNo Status Records FoundNo Status Records FoundNo Status Records Found INFORMATION SOURCE (unrecogn ized section and content) DATE CREATED AUTHOR 09/08/2017 [facility] [employer] ([place]) DATE CREATED AUTHOR AUTHOR'S ORGANIZ ATION 10/06/2023 [facility] [employer] ([place] DATE CREATED AUTHOR AUTHOR'S ORGANIZ ATION 03/27/2024 [facility] DATE CREATED AUTHOR AUTHOR'S ORGANIZ ATION 01/15/2025 [facility] DATE CREATED AUTHOR AUTHOR'S ORGANIZ ATION 01/26/[address] [facility] Care Team (unrecognized sect ion and content) Team Status: Active Member Role Status Dates Dr. Malissa Rascon MD Family Provider Active Dr. Malissa Rascon MD Primary Care Provider Active Team Status: Inactive Member Role Status Dates Dr. Malissa Rascon MD Primary Care Provider Active Dr. Nika Donald MD Attending Provider Active Team Status: Inactive Member Role Status Dates Dr. Malissa Rascon MD Primary Care Provider Active Dr. Nika Donald MD Attending Provider, Referrin g Provider Active Team Status: Active Member Role Status Dates Dr. Malissa Rascon MD Primary Care Provider Active Dr. Hanh Rico DO Emergency Provider Active Dr. Marilee Yeager MD Admit Provider, Attending Prov ider Active Team Status: Active Member Role Status Dates Dr. Malissa Rascon MD Primary Care Provider Active Dr. Hanh Rico DO Emergency Provider Active Dr. Marilee Yeager MD Admit Provider, Other Provider Active Dr. Liban Wilhelm DO Attending Provider, Other Pro vider Active Team Status: Active Member Role Status Dates Dr. Malissa Rascon MD Primary Care Provider Active Dr. Dawit Rai MD Attending Provider, Referring Pro vider Active Team Status: Inactive Member Role Status Dates Dr. Malissa Rascon MD Primary Care Provider Active Dr. Hanh Rico DO Emergency Provider Active Dr. Marilee Yeager MD Admit Provider, Other Provider Active Dr. Liban Wilhelm DO Attending Provider Active Team Status: Inactive Member Role Status Dates Dr. Malissa Rascon MD Primary Care Provider Active Dr. Parrish Shah MD Admit Provider, Attending Provid er Active Team Status: Inactive Member Role Status Dates Dr. Malissa Rascon MD Primary Care Provider Active Dr. Verenice Chicas DO Emergency Provider Active Accountant Cost Relationship Specialty Start Date End Date Malissa Rascon MD [address] [place] [address] PCP - General Family Medicine 10/28/23 Nika Donald [address] [place] [id number] Internal Medicine 02/08/24 Azar Kahn MD [address] [place] [address] Cardiology 02/08/24 Aleksandra Izquierdo MD [address] [id number] General Surgery 02/08/24 Accountant Cost Relationship Specialty Start Date End Date Malissa Rascon MD [address] [place], [place] [id number] PCP - General Family Medicine 10/28/23 Nika Donald V [address] [facility] [place] [phone] Internal Medicine 02/08/24 Azar Kahn MD [address] [place] [address] [phone] Cardiology 02/08/24 Aleksandra Izquierdo MD [address] [id number] General Surgery 02/08/24 Accountant Cost Relationship Specialty Start Date End Date Malissa Rascon MD [address] [place], [place] [id number] PCP - General Family Medicine 10/28/23 Nika Donald V [address] [place] [phone] Internal Medicine 02/08/24 Azar Kahn MD [address] [place] [address] [place] [address] Cardiology 02/08/24 Aleksandra Izquierdo MD [address] [id number] General Surgery 02/08/24 Accountant Cost Relationship Specialty Start Date End Date Malissa Rascon MD [address] [place] [address] PCP - General Family Medicine 10/28/23 Nika Donald V [address] [place] [address] Internal Medicine 02/08/24 Azar Kahn MD [address] [place] [address] Cardiology 02/08/24 Aleksandra Izquierdo MD [address] [id number] General Surgery 02/08/24 Accountant Cost Relationship Specialty Start Date End Date Malissa Rascon MD [address] [place] [address] PCP - General Family Medicine 10/28/23 Nika Donald V [address] [place] [address] Internal Medicine 02/08/24 Azar Kahn MD [facility] [address] [id number] Cardiology 02/08/24 Aleksandra Izquierdo MD [address] [id number] General Surgery 02/08/24 Accountant Cost Relationship Specialty Start Date End Date Malissa Rascon MD [address] [place] [place], [place] [id number] PCP - General Family Medicine 10/28/23 Nika Donald V [address] [facility] [address] Internal Medicine 02/08/24 Azar Kahn MD [address] [place] [address] [phone] Cardiology 02/08/24 Aleksandra Izquierdo MD [address] [id number] General Surgery 02/08/24 Accountant Cost Relationship Specialty Start Date End Date Malissa Rascon MD [address] [place], [place] [id number] PCP - General Family Medicine 10/28/23 Nika Donald V [address] [place] [address] Internal Medicine 02/08/24 Azar Kahn MD [address] [place] [address] [phone] Cardiology 02/08/24 Aleksandra Izquierdo MD [address] [id number] General Surgery 02/08/24 Accountant Cost Relationship Specialty Start Date End Date Malissa Rascon MD [address] [place] [address] PCP - General Family Medicine 10/28/23 Nika Donald V [address] [place] [address] Internal Medicine 02/08/24 Azar Kahn MD [address] [place] [address] [phone] Cardiology 02/08/24 Aleksandra Izquierdo MD [address] [id number] General Surgery 02/08/24 Accountant Cost Relationship Specialty Start Date End Date Malissa Rascon MD [address] [place] [address] PCP - General Family Medicine 10/28/23 Nika Donald V [address] [place] [address] Internal Medicine 02/08/24 Azar Kahn MD [address] [place] [address] [phone] Cardiology 02/08/24 Aleksandra Izquierdo MD [address] [id number] General Surgery 02/08/24 Accountant Cost Relationship Specialty Start Date End Date Malissa Rascon MD [address] [facility] [place] [address] PCP - General Family Medicine 10/28/23 Nika Donald V [address] [place] [id number] Internal Medicine 02/08/24 Azar Kahn MD [address] [place] [phone] Cardiology 02/08/24 Aleksandra Izquierdo MD [address] [place] [address] [phone] General Surgery 02/08/24 Team Status: Active Member Role Status Dates Dr. Malissa Rascon MD Primary Care Provider Active Team Status: Inactive Member Role Status Dates Dr. Malissa Rascon MD Primary Care Provider Active Start: March 01, 2024 End: March 13, 2024 Dr. Parrish Shah MD Admit Provider Active Star t: March 01, 2024 End: March 13, 2024 Dr. Parrish Shah MD Attending Provider Active Start: March 01, 2024 End: March 13, 2024 Team Status: Inactive Member Role Status Dates Dr. Malissa Rascon MD Primary Care Provider Active Start: March 02, 2024 End: March 02, 2024 Dr. Parrish Shah MD Attending Provider Active Start: March 02, 2024 End: March 02, 2024 Dr. Parrish Shah MD Referring Provider Active Start: March 02, 2024 End: March 02, 2024 Team Status: Inactive Member Role Status Dates Dr. Malissa Rascon MD Primary Care Provider Active Start: March 07, 2024 End: March 07, 2024 Dr. Parrish Shah MD Attending Provider Active Start: March 07, 2024 End: March 07, 2024 Dr. Parrish Shah MD Referring Provider Active Start: March 07, 2024 End: March 07, 2024 Team Status: Active Member Role Status Dates Dr. Malissa Rascon MD Primary Care Provider Active Start: March 12, 2024 Dr. Parrish Shah MD Admit Provider Active Star t: March 12, 2024 Dr. Parrish Shah MD Other Provider Active Star t: March 12, 2024 Dr. Jasmyne Birch DO Attending Provider Active Start: February Team Status: Inactive Member Role Status Dates Dr. Malissa Rascon MD Primary Care Provider Active Start: May 04, 2024 End: May 04, 2024 Dr. Nika Donald MD Attending Provider Active Start: May 04, 2024 End: May 04, 2024 Dr. Nika Donald MD Referring Provider Active Start: May 04, 2024 End: May 04, 2024 Team Status: Inactive Member Role Status Dates Dr. Malissa Rascon MD Primary Care Provider Active Start: May 17, 2024 End: May 17, 2024 Dr. Nika Donald MD Attending Provider Active Start: May 17, 2024 End: May 17, 2024 Dr. Nika Donald MD Referring Provider Active Start: May 17, 2024 End: May 17, 2024 Team Status: Inactive Member Role Status Dates Dr. Malissa Rascon MD Primary Care Provider Active Start: June 16, 2024 End: June 16, 2024 Dr. Nika Donald MD Attending Provider Active Start: June 16, 2024 End: June 16, 2024 Dr. Nika Donald MD Referring Provider Active Start: June 16, 2024 End: June 16, 2024 Team Status: Inactive Member Role Status Dates Dr. Malissa Rascon MD Primary Care Provider Active Start: June 23, 2024 End: June 23, 2024 Dr. Nika Donald MD Attending Provider Active Start: June 23, 2024 End: June 23, 2024 Dr. Nika Donald MD Referring Provider Active Start: June 23, 2024 End: June 23, 2024 Team Status: Inactive Member Role Status Dates Dr. Malissa Rascon MD Primary Care Provider Active Start: July 19, 2024 End: July 19, 2024 Dr. Juaquin Pierre MD Attending Provider Active Start: July 19, 2024 End: July 19, 2024 Dr. Juaquin Pierre MD Referring Provider Active Start: July 19, 2024 End: July 19, 2024 Team Status: Active Member Role/Relationship Status Dates Dr. Malissa Rascon MD Primary Care Provider Active Team Status: Inactive Member Role/Relationship Status Dates Dr. Malissa Rascon MD Primary Care Provider Active Start: June 16, 2024 End: June 16, 2024 Dr. Nika Donald MD Attending Provider Active Start: June 16, 2024 End: June 16, 2024 Dr. Nika Donald MD Referring Provider Active Start: June 16, 2024 End: June 16, 2024 Team Status: Inactive Member Role/Relationship Status Dates Dr. Malissa Rascon MD Primary Care Provider Active Start: June 23, 2024 End: June 23, 2024 Dr. Nika Donald MD Attending Provider Active Start: June 23, 2024 End: June 23, 2024 Dr. Nika Donald MD Referring Provider Active Start: June 23, 2024 End: June 23, 2024 Team Status: Inactive Member Role/Relationship Status Dates Dr. Malissa Rascon MD Primary Care Provider Active Start: July 19, 2024 End: July 19, 2024 Dr. Juaquin Pierre MD Attending Provider Active Start: July 19, 2024 End: July 19, 2024 Dr. Juaquin Pierre MD Referring Provider Active Start: July 19, 2024 End: July 19, 2024 Team Status: Inactive Member Role/Relationship Status Dates Dr. Malissa Rascon MD Primary Care Provider Active Start: August 05, 2024 End: August 05, 2024 Dr. Juaquin Pierre MD Attending Provider Active Start: August 05, 2024 End: August 05, 2024 Dr. Juaquin Pierre MD Referring Provider Active Start: August 05, 2024 End: August 05, 2024 Team Status: Inactive Member Role/Relationship Status Dates Dr. Malissa Rascon MD Primary Care Provider Active Start: October 08, 2024 End: October 08, 2024 Dr. Malissa Rascon MD Referring Provider Active Start: October 08, 2024 End: October 08, 2024 TAMANNA Dexter Attending Provider Active Start: October 08, 2024 End: October 08, 2024 Care Team (unrecognized sect ion and content) Care Team Personnel Name: John Nascimento Clerk [place] PT Position: P3 Scheduling - Calculating Machine Mechanic Advanced Member Role: Other Name: MALISSA RASCON MD Position: P4 Physician - Primary Care Med Service: Active Provider Member Role: Primary Care Physician Address: Address: [address] [place] [address] Care Team Related Persons Name: TAMMY DORAN Address: Home [address] [place], [place] [id number] Care Team Personnel Name: John Nascimento Clerk [place] PT Position: P3 Scheduling - Calculating Machine Mechanic Advanced Member Role: Other Name: MALISSA RASCON MD Position: P4 Physician - Primary Care Med Service: Active Provider Member Role: Primary Care Physician Address: Address: [address] [place] [address] Care Team Related Persons Name: TAMMY DORAN Address: Home [address] [place], [place] [id number] Care Team Personnel Name: John Nascimento Clerk [place] PT Position: P3 Scheduling - Calculating Machine Mechanic Advanced Member Role: Other Name: MALISSA RASCON MD Position: P4 Physician - Primary Care Member Role: Primary Care Physician Address: Address: [address] [place] [address] Name: Fatemeh Gomez RN Position: AO RN Member Role: RN Name: CLAUDIO LANZA DO Position: Resident Member Role: ED Physician Address: Address: [address] [place] [address] ED Resident [place], [place] [address] Care Team Related Persons Name: TAMMY DORAN Address: Home [address] [place], [place] [phone] Care Team Personnel Name: John Nascimento Clerk [place] PT Position: P3 Scheduling - Calculating Machine Mechanic Advanced Member Role: Other Name: MALISSA RASCON MD Position: P4 Physician - Primary Care Member Role: Primary Care Physician Address: Address: [address] [place] [address] Care Team Related Persons Name: TAMMY DORAN Address: Home [address] [place], [place] [id number] [place] Care Team Personnel Name: Azam Steel Wheel Engraver [place] PT Position: P3 Scheduling - Calculating Machine Mechanic Advanced Member Role: Other Name: MALISSA RASCON MD Position: P4 Physician - Primary Care Member Role: Primary Care Physician Address: Address: [address] [place] [address]- Care Team Related Persons Name: TAMMY DORAN Address: Home [address] [place], [place] [phone] [place] Care Team Personnel Name: John Nascimento Clerk [place] PT Position: P3 Scheduling - Calculating Machine Mechanic Advanced Member Role: Other Name: MALISSA RASCON MD Position: P4 Physician - Primary Care Member Role: Primary Care Physician Address: Address: [address] [place] [phone]- Care Team Related Persons Name: TAMMY DORAN Address: Home [address] [place], [place] [phone] [place] Care Team Personnel Name: John Nascimento Clerk [place] PT Position: P3 Scheduling - Calculating Machine Mechanic Advanced Member Role: Other Name: MALISSA RASCON MD Position: P4 Physician - Primary Care Member Role: Primary Care Physician Address: Address: [address] [place] [address]- Name: MD GLORIA, GONZALEZ DEAN Position: ED Physician Member Role: ED Physician Address: Address: [address] [place] [address]- Care Team Related Persons Name: TAMMY DORAN Address: Home [address] [place], [place] [id number] [place] Care Team Personnel Name: Azam Steel Wheel Engraver [place] PT Position: P3 Scheduling - Calculating Machine Mechanic Advanced Member Role: Other Name: MALISSA RASCON MD Position: P4 Physician - Primary Care Member Role: Primary Care Physician Address: Address: [address] [place] [address]- Care Team Related Persons Name: TAMMY DORAN Address: Home [address] [place], [place] [phone] [place] Care Team Personnel Name: John Nascimento Clerk [place] PT Position: P3 Scheduling - Calculating Machine Mechanic Advanced Member Role: Other Name: MALISSA RASCON MD Position: P4 Physician - Primary Care Member Role: Primary Care Physician Address: Address: [facility] [address] Care Team Related Persons Name: TAMMY DORAN Address: Home [address] [place], [place] [phone] Care Team Personnel Name: John Nascimento Clerk [place] PT Position: P3 Scheduling - Calculating Machine Mechanic Advanced Member Role: Other Name: MALISSA RASCON MD Position: P4 Physician - Primary Care Member Role: Primary Care Physician Address: Address: [facility] [address] Care Team Related Persons Name: TAMMY DORAN Address: Home [address] [place], [place] [phone] Goals (unrecognized section and content) Goals may be documented in a n alternate section Source Comments (unrecognize d section and content) In the event this informatio n is protected by the Federal Confidentiality of Alcohol and Drug Abuse Patient Records regulations: The Federal rules restrict any use of the information to criminally investigate or prosecute any alcohol or drug abuse patient.[facility] the event this information is protected by the Federal Confidentiality of Alcohol and Drug Abuse Patient Records regulations: The Federal rules restrict any use of the information to criminally investigate or prosecute any alcohol or drug abuse patient.[facility] the event this information is protected by the Federal Confidentiality of Alcohol and Drug Abuse Patient Records regulations: The Federal rules restrict any use of the information to criminally investigate or prosecute any alcohol or drug abuse patient.[facility] the event this information is protected by the Federal Confidentiality of Alcohol and Drug Abuse Patient Records regulations: The Federal rules restrict any use of the information to criminally investigate or prosecute any alcohol or drug abuse patient.[facility] the event this information is protected by the Federal Confidentiality of Alcohol and Drug Abuse Patient Records regulations: The Federal rules restrict any use of the information to criminally investigate or prosecute any alcohol or drug abuse patient.[facility] the event this information is protected by the Federal Confidentiality of Alcohol and Drug Abuse Patient Records regulations: The Federal rules restrict any use of the information to criminally investigate or prosecute any alcohol or drug abuse patient.[facility] the event this information is protected by the Federal Confidentiality of Alcohol and Drug Abuse Patient Records regulations: The Federal rules restrict any use of the information to criminally investigate or prosecute any alcohol or drug abuse patient.[facility] the event this information is protected by the Federal Confidentiality of Alcohol and Drug Abuse Patient Records regulations: The Federal rules restrict any use of the information to criminally investigate or prosecute any alcohol or drug abuse patient.[facility] the event this information is protected by the Federal Confidentiality of Alcohol and Drug Abuse Patient Records regulations: The Federal rules restrict any use of the information to criminally investigate or prosecute any alcohol or drug abuse patient.[facility] the event this information is protected by the Federal Confidentiality of Alcohol and Drug Abuse Patient Records regulations: The Federal rules restrict any use of the information to criminally investigate or prosecute any alcohol or drug abuse patient.[facility] the event this information is protected by the Federal Confidentiality of Alcohol and Drug Abuse Patient Records regulations: The Federal rules restrict any use of the information to criminally investigate or prosecute any alcohol or drug abuse patient.[facility] the event this information is protected by the Federal Confidentiality of Alcohol and Drug Abuse Patient Records regulations: The Federal rules restrict any use of the information to criminally investigate or prosecute any alcohol or drug abuse patient.[facility] Reason for Visit (unrecogniz ed section and content) Reason Comments Follow Up Reason Comments Patient Update Reason Comments Follow Up For Foul smelling draina ge Perc gallo tube Reason Comments Patient Update Patient Question Reason Comments Post Op Follow Up FOR RECORDS PERTAINING TO PATIENTS WHO ARE OR HAVE BEEN ENROLLED IN A CHEMICAL DEPENDENCY/SUBSTANCEABUSE PROGRAM, SOME INFORMATION MAY BE OMITTED. This clinical summary was aggregated from multiple sources. Caution should be exercised in using it in the provision of clinical care. This summary normalizes information from multiple sources, and as a consequence, information in this document may materially change the coding, format and clinical context of patient data. In addition, data may be omitted in some cases. CLINICAL DECISIONS SHOULD BE BASED ON THE PRIMARY CLINICAL RECORDS. [facility] [employer] [facility]. provides no warranty or guarantee of the accuracy or completeness of information in this document.
[2025-03-08 13:27] LABS: Hematocrit 38.1 % (40-54); Hemoglobin 12.1 g/dL (13.0-16.5); Immature Granulocytes Count 0.160 X10^3/uL (0.0-0.0); Mean Corp Hgb Conc 31.8 g/dL (32-36); Mean Corpuscular Volume 92.9 fL (80-94); Mean Platelet Vol. 9.6 fl (6.2-12.0); NRBC Flagged by Analyzer 0 % (0-5); Platelet Count 195 K/mm3 (150-450); RBC Distribution Width CV 14.7 % (11.6-14.6); RBC Distribution Width SD 50.3 fl (35.1-43.9); Red Blood Count 4.10 M/mm3 (4.6-6.2); White Blood Count 12.1 K/mm3 (4.4-11.0)
--- NOTE | 2025-03-08 13:38 | RAD_ITS ---
PROCEDURE: CHEST PA AND LATERAL 03/08/2025 REASON FOR EXAM: SOB TECHNIQUE: Procedure Code: RADCXR Modality: DX Procedure: CHEST PA AND LATERAL COMPARISON: CT chest dated 05/04/2024. PA and lateral chest dated 03/07/2025 and 06/16/2024. 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 An element of chronic obstructive lung disease is suspected. Pleura: No pleural effusions, thickening, or pneumothorax. Heart: Normal in size and configuration. Mediastinum/Mirella: Unremarkable. Great vessels: Atherosclerotic and mildly tortuous aorta Bones/soft tissues: Cardiac monitoring leads overlie the chest wall. RAD/Chest PA and Lateral IMPRESSION: Bilateral chronic interstitial changes in the lower lobes. Suspect COPD. Reading Location: [place] [address]
[2025-03-08 14:16] LABS: AST(SGOT) 21 U/L (<=37); Alanine Aminotransfer ALT/SGPT 41 U/L (<=46); Albumin, Serum 3.7 g/dL (3.4-4.8); Alkaline Phosphatase 76 U/L (40-129); Anion Gap 11 (7-18); BUN 13 mg/dL (4-19); BUN/Creat Ratio 14.2 RATIO (10-20); Calcium,Total 8.2 mg/dL (7.6-11.0); Carbon Dioxide 25.1 mmol/L (20.0-29.0); Chloride 104 mmol/L (96-106); Globulin 2.1 g/dL (2.2-4.2); Glucose 129 mg/dL (70-99); Potassium 3.4 mmol/L (3.5-5.1); Pro- Brain NATRIURETIC PEPTIDE 568 pg/mL (<=1800); Troponin T High Sensitivity 30 ng/L (<=22)
[2025-03-08 15:55] LABS: Troponin T High Sens 2 HR 31 ng/L (<=22)
== END 2025-03-08 16:34 | disposition home or self-care (01) ==
PROVIDERS: Emergency Provider Student in an Organized Health Care Education/Training Program; PCP Family Medicine; Visit Provider Student in an Organized Health Care Education/Training Program
DX: J44.1 Chronic obstructive pulmonary disease with (acute) exacerbation (principal); Z79.51 Long term (current) use of inhaled steroids; Z87.891 Personal history of nicotine dependence
CPT/HCPCS: 71046; 80053; 83880; 84484; 85025; 87631; 93005; 94640; 99284